=== PATIENT | female | born 1945 | race Caucasian/White ===

== ENCOUNTER 2022-08-05 13:10 | Outpatient (OUT) | payer MEDICARE, OTHER, SELFPAY | END 2022-08-05 13:11 | disposition home or self-care (01) | LOC: LAB 08-30 15:02 | PROVIDERS: PCP Family Medicine; Visit Provider Internal Medicine | DX: I12.9 Hypertensive chronic kidney disease with stage 1 through stage 4 chronic kidney disease, or unspecified chronic kidney disease (principal); N18.30 Chronic kidney disease, stage 3 unspecified; E11.22 Type 2 diabetes mellitus with diabetic chronic kidney disease; D63.1 Anemia in chronic kidney disease; C64.9 Malignant neoplasm of unspecified kidney, except renal pelvis; R80.9 Proteinuria, unspecified; E55.9 Vitamin D deficiency, unspecified; E79.0 Hyperuricemia without signs of inflammatory arthritis and tophaceous disease | CPT/HCPCS: 36415; 80069; 81001 ==

== ENCOUNTER 2022-08-11 08:10 | Outpatient (OUT) | payer MEDICARE, OTHER, SELFPAY ==
[2022-08-05 13:42] LABS: Bilirubin Urine NEGATIVE (NEGATIVE); Blood Urine NEGATIVE (NEGATIVE); Clarity Urine CLEAR (CLEAR); Color Urine LT. YELLOW (YELLOW); Glucose Urine UA NEGATIVE (NEGATIVE); Ketones Urine NEGATIVE (NEGATIVE); Leukocyte Esterase Urine NEGATIVE (NEGATIVE); Nitrite Urine NEGATIVE (NEGATIVE); Protein Urine NEGATIVE (NEG/TRACE); Urobilinogen Urine 0.2 EU/dL (0.2-1.0)
[2022-08-05 13:51] LABS: Bacteria Urine NONE SEEN #/HPF (NONE SEEN); RBC Urine NONE SEEN #/HPF (0-2); WBC Urine NONE SEEN #/HPF (NONE SEEN)
[2022-08-05 13:52] LABS: Cast Seen? NONE SEEN #/LPF (NONE SEEN); Mucus Urine NONE SEEN (NONE SEEN)
[2022-08-05 13:53] LABS: Crystals Seen? None Seen #/HPF (None Seen); Squamous Epithelial Cell Urine FEW #/LPF (NONE/RARE)
[2022-08-05 14:01] LABS: Albumin Level 4.2 g/dL (3.4-5.0); Anion Gap 15.4; BUN Creatinine Ratio 18.1; Calcium 9.8 mg/dL (8.5-10.1); Chloride 104 mmol/L (98-107); Estimated GFR (African America 41 (>=60); Estimated GFR (Non-African Ame 34 (>=60); Glucose 109 mg/dL (74-106); Phosphorus 4.7 mg/dL (2.6-4.7); Potassium 4.4 mmol/L (3.5-5.1); Sodium 141 mmol/L (136-145)
--- NOTE | 2022-08-11 08:14 | US_ITS ---
The [address] [address] Patient Name: ARMANDO SIMMONS MRN: [id number] date: 1945 Sex: F Assigned Patient Location: US Current Patient Location: US Accession/Order Number: [id number] Exam Date: 08/11/2022 08:15 Report Date: 08/11/2022 09:22 At the request of: LEA COLLINS Procedure: US renal BI EXAM: Renal ultrasound HISTORY: . Chronic Kidney Disease N18.30 . COMPARISON: 07/02/2019. 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 No masses are noted ultrasonographically in the right renal fossa. Left kidney measures 12 x 4.9 x 6.7 cm. Color-flow is noted. Small cysts are noted within the left kidney. The largest cyst measures 2.1 cm. No hydronephrosis is noted. There is slight to lobulation of the renal contours. Scanning of the filled bladder demonstrates a volume of 101 cc. No masses are noted. No bladder wall thickening is noted. IMPRESSION: 1. Absent right kidney. 2. Small cyst involving the left kidney. The largest measures 2.1 cm. No hydronephrosis is noted. A similar finding was on the previous exam. 3. Normal-appearing bladder. Electronically authenticated by: HERMAN RAIN Date: 08/11/2022 09:22
== END 2022-08-11 08:11 ==
LOC: US 08:11
PROVIDERS: PCP Family Medicine; Visit Provider Internal Medicine
DX: I12.9 Hypertensive chronic kidney disease with stage 1 through stage 4 chronic kidney disease, or unspecified chronic kidney disease (principal); N18.30 Chronic kidney disease, stage 3 unspecified; E11.22 Type 2 diabetes mellitus with diabetic chronic kidney disease; D63.1 Anemia in chronic kidney disease; C64.9 Malignant neoplasm of unspecified kidney, except renal pelvis; R80.9 Proteinuria, unspecified; E55.9 Vitamin D deficiency, unspecified; E79.0 Hyperuricemia without signs of inflammatory arthritis and tophaceous disease; Z90.5 Acquired absence of kidney; N28.1 Cyst of kidney, acquired
CPT/HCPCS: 36415; 76775; 80069; 81001

== ENCOUNTER 2022-11-22 11:00 | Outpatient (OUT) | payer MEDICARE, OTHER, SELFPAY ==
[2022-11-22 11:43] LABS: Basophils Percent Auto 0.7 % (0.2-2.0); Eosinophils Absolute Auto 0.2 10^3/uL (0.0-0.7); Eosinophils Percent Auto 3.9 % (0.9-7.0); Hematocrit 28.6 % (36.0-48.0); Immature Granulocytes Abs Auto 0.01 10^3/uL (0.00-0.03); Immature Granulocytes Pct Auto 0.2 % (0.0-0.5); Lymphocytes Absolute Auto 1.1 10^3/uL (1.2-3.8); Lymphocytes Percent Auto 23.5 % (20.5-60.0); Mean Corpuscular HGB Conc 31.5 g/dL (29.9-35.2); Mean Corpuscular Hemoglobin 30.4 pg (26.7-34.0); Mean Corpuscular Volume 96.6 fL (81.0-99.0); Mean Platelet Volume 10.8 fL (9.5-13.5); Monocytes Absolute Auto 0.4 10^3/uL (0.3-0.8); Monocytes Percent Auto 7.9 % (1.7-12.0); Neutrophils Absolute Auto 2.9 10^3/uL (1.4-6.5); Neutrophils Percent Auto 63.8 % (43.0-75.0); Platelet Count 209 10^3/uL (150-450); Red Blood Count 2.96 10^6/uL (4.20-5.40); Red Cell Distribution Width 13.8 % (11.0-15.0); White Blood Count 4.6 10^3/uL (4.0-11.0)
[2022-11-22 11:50] LABS: Estimated Average Glucose 111 mg/dL; Glycohemoglobin A1C 5.5 % (4.5-6.2)
[2022-11-22 12:03] LABS: Alanine Aminotransferase 19 U/L (14-59); Albumin Globulin Ratio 1.3; Albumin Level 4.2 g/dL (3.4-5.0); Alkaline Phosphatase 42 U/L (46-116); Aspartate Amino Transferase 15 U/L (15-37); BUN Creatinine Ratio 22.7; Bilirubin Direct <0.1 mg/dL (0.0-0.2); Bilirubin Total 0.2 mg/dL (0.2-1.0); Calcium 8.8 mg/dL (8.5-10.1); Carbon Dioxide 23.8 mmol/L (21.0-32.0); Chloride 106 mmol/L (98-107); Chol HDL Ratio 2.4; Cholesterol 153 mg/dL (<=200); Estimated GFR (African America 49 (>=60); Estimated GFR (Non-African Ame 41 (>=60); Globulin 3.2 g/dL; Glucose 96 mg/dL (74-106); HDL Cholesterol 63 mg/dL (40-60); Potassium 4.8 mmol/L (3.5-5.1); Sodium 138 mmol/L (136-145); Thyroid Stimulating Hormone 0.698 uIU/mL (0.358-3.740); Total Protein 7.4 g/dL (6.4-8.2); Triglycerides 138 mg/dL (<=150); VLDL CHOLESTEROL 27.6 mg/dL
== END 2022-11-22 11:01 | disposition home or self-care (01) ==
PROVIDERS: PCP Family Medicine; Visit Provider Family Medicine
DX: E11.9 Type 2 diabetes mellitus without complications (principal); I10 Essential (primary) hypertension; Z51.81 Encounter for therapeutic drug level monitoring; E55.9 Vitamin D deficiency, unspecified; E66.9 Obesity, unspecified
CPT/HCPCS: 36415; 80048; 80061; 80076; 82043; 83036; 84443; 85025

== ENCOUNTER 2022-11-24 11:41 | Outpatient (OUT) | payer MEDICARE, OTHER, SELFPAY ==
[2022-11-24 12:13] LABS: Hematocrit 28.7 % (36.0-48.0); Hemoglobin 8.8 g/dL (12.0-16.0)
[2022-11-24 12:14] LABS: Bilirubin Urine NEGATIVE (NEGATIVE); Blood Urine NEGATIVE (NEGATIVE); Clarity Urine CLEAR (CLEAR); Color Urine YELLOW (YELLOW); Glucose Urine UA NEGATIVE (NEGATIVE); Ketones Urine NEGATIVE (NEGATIVE); Leukocyte Esterase Urine NEGATIVE (NEGATIVE); Nitrite Urine NEGATIVE (NEGATIVE); Protein Urine TRACE mg/dL (NEG/TRACE); Urobilinogen Urine 0.2 EU/dL (0.2-1.0)
[2022-11-24 12:32] LABS: RBC Urine 0-2 #/HPF (0-2); WBC Urine NONE SEEN #/HPF (NONE SEEN)
[2022-11-24 12:33] LABS: Bacteria Urine NONE SEEN #/HPF (NONE SEEN); Cast Seen? NONE SEEN #/LPF (NONE SEEN); Crystals Seen? None Seen #/HPF (None Seen); Mucus Urine NONE SEEN (NONE SEEN); Protein Creatinine Ratio Urine 0.17; Squamous Epithelial Cell Urine NONE SEEN #/LPF (NONE/RARE); Total Protein Urine Random 33.9 mg/dL (<=11.9); Urine Culture Indicated NO
[2022-11-24 13:48] LABS: Albumin Level 4.2 g/dL (3.4-5.0); Anion Gap 14.5; BUN Creatinine Ratio 18.4; Calcium 9.4 mg/dL (8.5-10.1); Carbon Dioxide 24.6 mmol/L (21.0-32.0); Chloride 107 mmol/L (98-107); Estimated GFR (African America 42 (>=60); Estimated GFR (Non-African Ame 35 (>=60); Glucose 95 mg/dL (74-106); Magnesium 2.1 mg/dL (1.8-2.4); Phosphorus 3.7 mg/dL (2.6-4.7); Potassium 5.1 mmol/L (3.5-5.1); Sodium 141 mmol/L (136-145); Uric Acid 8.1 mg/dL (2.6-6.0)
[2022-11-24 15:13] LABS: Percent Iron Saturation 23.5 %
[2022-11-24 16:15] LABS: Mean Corpuscular HGB Conc 30.2 g/dL (29.9-35.2); Mean Corpuscular Hemoglobin 29.5 pg (26.7-34.0); Mean Corpuscular Volume 97.6 fL (81.0-99.0); Mean Platelet Volume 11.7 fL (9.5-13.5); Platelet Count 223 10^3/uL (150-450); Red Blood Count 2.95 10^6/uL (4.20-5.40); Red Cell Distribution Width 13.7 % (11.0-15.0); White Blood Count 4.9 10^3/uL (4.0-11.0)
[2022-11-24 16:17] LABS: Hematocrit 28.7 % (36.0-48.0); Hemoglobin 8.8 g/dL (12.0-16.0)
[2022-11-25 14:08] LABS: PTH, Intact 66 pg/mL (15-65)
== END 2022-11-24 11:42 | disposition home or self-care (01) ==
LOC: LAB 11:42
PROVIDERS: PCP Family Medicine; Visit Provider Internal Medicine
DX: I12.9 Hypertensive chronic kidney disease with stage 1 through stage 4 chronic kidney disease, or unspecified chronic kidney disease (principal); N18.30 Chronic kidney disease, stage 3 unspecified; E11.22 Type 2 diabetes mellitus with diabetic chronic kidney disease; D63.1 Anemia in chronic kidney disease; C64.9 Malignant neoplasm of unspecified kidney, except renal pelvis; R80.9 Proteinuria, unspecified; E55.9 Vitamin D deficiency, unspecified; E79.0 Hyperuricemia without signs of inflammatory arthritis and tophaceous disease
CPT/HCPCS: 36415; 80069; 81001; 82306; 82570; 82728; 83540; 83550; 83735; 83970; 84156; 84550; 85014; 85018; 85027

== ENCOUNTER 2022-12-14 09:58 | Outpatient (OUT) | payer MEDICARE, OTHER, SELFPAY ==
--- NOTE | 2022-12-14 10:12 | CT_ITS ---
[address] [address] Patient Name: ARMANDO SIMMONS MRN: [id number] date: 1945 Sex: F Assigned Patient Location: CT Current Patient Location: Accession/Order Number: [id number] Exam Date: 12/14/2022 10:26 Report Date: 12/15/2022 07:10 At the request of: SUGAR PEREZ Procedure: CT lung screening low-dose EXAMINATION: CT lung screening low-dose HISTORY: History Of Tobacco Dependence Z87.891 COMPARISON: No relevant comparison available. TECHNIQUE: Axial, Coronal, and Sagittal images were created without the administration of IV contrast material. Dose reduction techniques were achieved by using automated exposure control and/or adjustment of mA and/or kV according to patient size and/or use of iterative reconstruction technique. FINDINGS: LUNGS: Mild emphysematous changes. No suspicious nodules or acute infiltrates. PLEURA: No mass, effusion, or pneumothorax. VASCULATURE: No abnormality. HEMA: No mass or pathologic adenopathy. MEDIASTINUM: No mass or pathologic adenopathy. CARDIAC: No enlargement, pericardial thickening, or significant calcification. AORTA: No aneurysm or dissection. CHEST WALL: No mass or axillary adenopathy BONES: Mechanical fusion of lower cervical spine. Multilevel mild degenerative changes of thoracic spine. LIMITED ABDOMEN: No suspicious findings. Limited images of the upper abdomen. OTHER: Negative. CT/CT lung screening low-dose IMPRESSION: 1. Lung-RADS Category 1 Negative. No nodules and definitely benign nodules. Continue annual screening with LDCT in 12 months. Electronically authenticated by: LONDON DON Date: 12/15/2022 07:10
== END 2022-12-14 09:59 | disposition home or self-care (01) ==
LOC: CT 10:00
PROVIDERS: PCP Family Medicine; Visit Provider Family Medicine
DX: Z87.891 Personal history of nicotine dependence (principal)
CPT/HCPCS: 71271

== ENCOUNTER 2022-12-27 11:42 | Outpatient (OUT) | payer MEDICARE, OTHER, SELFPAY ==
[2022-12-27 11:59] LABS: Hematocrit 26.5 % (36.0-48.0); Hemoglobin 8.3 g/dL (12.0-16.0); Mean Corpuscular HGB Conc 31.3 g/dL (29.9-35.2); Mean Corpuscular Volume 95.7 fL (81.0-99.0); Mean Platelet Volume 9.9 fL (9.5-13.5); Platelet Count 224 10^3/uL (150-450); Red Blood Count 2.77 10^6/uL (4.20-5.40); Red Cell Distribution Width 13.4 % (11.0-15.0); White Blood Count 5.1 10^3/uL (4.0-11.0)
== END 2022-12-27 11:43 | disposition home or self-care (01) ==
LOC: LAB 11:43
PROVIDERS: PCP Family Medicine; Visit Provider Internal Medicine
DX: E11.22 Type 2 diabetes mellitus with diabetic chronic kidney disease (principal); I12.9 Hypertensive chronic kidney disease with stage 1 through stage 4 chronic kidney disease, or unspecified chronic kidney disease; N18.30 Chronic kidney disease, stage 3 unspecified; D63.1 Anemia in chronic kidney disease; C64.9 Malignant neoplasm of unspecified kidney, except renal pelvis; R80.9 Proteinuria, unspecified; E87.5 Hyperkalemia; E55.9 Vitamin D deficiency, unspecified; E79.0 Hyperuricemia without signs of inflammatory arthritis and tophaceous disease
CPT/HCPCS: 36415; 85027

== ENCOUNTER 2023-01-20 07:35 | Outpatient (RCR) | payer MEDICARE, OTHER, SELFPAY ==
[2023-01-11] MEDS: IRON SUCROSE COMPLEX 200 MG in 0.9 % SODIUM CHLORIDE 100 ML 220 MG IV (10:13)
[2023-01-11 10:46] VITALS: BP 138/68; PULSE 79; RESP 16; TEMP 36.4; O2SAT 95
--- NOTE | 2023-01-11 11:09 | PC.NURSE ---
0957: Pt. to [facility] amb. per self. Seated in recliner. VSS. Questions addressed regarding Venofer. Iv initiated to left ac on first attempt using #22 gauge iv. Flushes easliy with no edema or c/o pain. Pt. tolerated with no c/o. 1013: IV Venofer initiated at this time. Pt. given bottled water. Denies needs. 1043: Venofer completed without s&s of adverse reaction. IV d/c'd, pressure to site. 1044: Pt. d/c'd amb. to home.
[2023-01-13] MEDS: 0.9 % SODIUM CHLORIDE 250 ML 10 ML IV (10:09)
[2023-01-13] MEDS: IRON SUCROSE COMPLEX 200 MG in 0.9 % SODIUM CHLORIDE 100 ML 220 MG IV (10:10)
[2023-01-13 10:22] VITALS: BP 122/66; PULSE 78; RESP 18; TEMP 36.1; O2SAT 94
--- NOTE | 2023-01-13 10:23 | PC.NURSE ---
0955 arrival ambulatory to chair 1. alert oriented offers no complaints. #24 IV inserted rt forearm on1st attempt, tolerated well. explained Venofer infusion. patient verbalizes understanding, Stated she did well with the infusion on Monday.
--- NOTE | 2023-01-13 10:24 | PC.NURSE ---
1025 Tolerating infusion without any symptoms
--- NOTE | 2023-01-13 10:50 | PC.NURSE ---
1045 Infusion completed, tolerated well. IV dc'd catheter intact. site covered with bandaid and coban.
[2023-01-16] MEDS: IRON SUCROSE COMPLEX 200 MG in 0.9 % SODIUM CHLORIDE 100 ML 220 MG IV (10:08)
[2023-01-16 10:33] VITALS: BP 124/68; PULSE 74; RESP 16; TEMP 35.8; O2SAT 98
--- NOTE | 2023-01-16 10:40 | PC.NURSE ---
0955: Pt. to [facility] amb. for iron infusion. Denies c/o from past infusions. Seated in recliner. VSS. IV initiated to left ac on first attempt without difficulty. Flushes easily without edema or redness. Pt. tolerated without c/o. 1008: IV Venofer initiated as ordered. Pt. given water. 1037: Venofer completed without s&s of transfusion reaction. IV d/c'd, pressure to site. 1038: D/c'd amb. to home.
[2023-01-18 10:02] VITALS: BP 106/72; PULSE 73; RESP 16; TEMP 36.9; O2SAT 94
[2023-01-18] MEDS: IRON SUCROSE COMPLEX 200 MG in 0.9 % SODIUM CHLORIDE 100 ML 220 MG IV (10:23)
[2023-01-20 09:57] VITALS: BP 127/80; PULSE 80; RESP 16; TEMP 36.4; O2SAT 94
[2023-01-20] MEDS: IRON SUCROSE COMPLEX 200 MG in 0.9 % SODIUM CHLORIDE 100 ML 220 MG IV (10:21)
== END 2023-02-02 23:59 | disposition home or self-care (01) ==
LOC: INF 07:35
PROVIDERS: PCP Family Medicine; Visit Provider Internal Medicine
DX: N18.30 Chronic kidney disease, stage 3 unspecified (principal); D63.1 Anemia in chronic kidney disease
CPT/HCPCS: 96365; J1756

== ENCOUNTER 2023-01-24 10:37 | Outpatient (OUT) | payer MEDICARE, OTHER, SELFPAY ==
[2023-01-24 11:05] LABS: Hemoglobin 8.9 g/dL (12.0-16.0); Mean Corpuscular HGB Conc 30.7 g/dL (29.9-35.2); Mean Corpuscular Hemoglobin 29.7 pg (26.7-34.0); Mean Corpuscular Volume 96.7 fL (81.0-99.0); Mean Platelet Volume 10.5 fL (9.5-13.5); Platelet Count 229 10^3/uL (150-450); Red Cell Distribution Width 13.9 % (11.0-15.0); White Blood Count 4.7 10^3/uL (4.0-11.0)
[2023-01-24 13:29] LABS: Percent Iron Saturation 25.4 %
[2023-01-24 14:08] LABS: Albumin Level 4.3 g/dL (3.4-5.0); Anion Gap 17.1; BUN Creatinine Ratio 18.4; Calcium 9.1 mg/dL (8.5-10.1); Chloride 104 mmol/L (98-107); Estimated GFR (African America 33 (>=60); Estimated GFR (Non-African Ame 28 (>=60); Glucose 95 mg/dL (74-106); Magnesium 2.2 mg/dL (1.8-2.4); Phosphorus 4.4 mg/dL (2.6-4.7); Potassium 5.1 mmol/L (3.5-5.1); Sodium 139 mmol/L (136-145)
== END 2023-01-24 10:38 | disposition home or self-care (01) ==
LOC: LAB 10:39
PROVIDERS: PCP Family Medicine; Visit Provider Internal Medicine
DX: I12.9 Hypertensive chronic kidney disease with stage 1 through stage 4 chronic kidney disease, or unspecified chronic kidney disease (principal); N18.30 Chronic kidney disease, stage 3 unspecified; E11.22 Type 2 diabetes mellitus with diabetic chronic kidney disease; D63.1 Anemia in chronic kidney disease; C64.9 Malignant neoplasm of unspecified kidney, except renal pelvis; R80.9 Proteinuria, unspecified; E55.9 Vitamin D deficiency, unspecified; E79.0 Hyperuricemia without signs of inflammatory arthritis and tophaceous disease; E87.5 Hyperkalemia
CPT/HCPCS: 36415; 80069; 82728; 83540; 83550; 83735; 85027

== ENCOUNTER 2023-02-14 12:12 | Outpatient (OUT) | payer MEDICARE, OTHER, SELFPAY ==
[2023-02-14 12:35] LABS: Hemoglobin 10.1 g/dL (12.0-16.0); Mean Corpuscular HGB Conc 30.6 g/dL (29.9-35.2); Mean Corpuscular Hemoglobin 29.5 pg (26.7-34.0); Mean Corpuscular Volume 96.5 fL (81.0-99.0); Platelet Count 210 10^3/uL (150-450); Red Blood Count 3.42 10^6/uL (4.20-5.40); Red Cell Distribution Width 14.5 % (11.0-15.0); White Blood Count 4.8 10^3/uL (4.0-11.0)
== END 2023-02-14 12:13 | disposition home or self-care (01) ==
LOC: LAB 12:13
PROVIDERS: PCP Family Medicine; Visit Provider Internal Medicine
DX: I12.9 Hypertensive chronic kidney disease with stage 1 through stage 4 chronic kidney disease, or unspecified chronic kidney disease (principal); N18.30 Chronic kidney disease, stage 3 unspecified; E11.22 Type 2 diabetes mellitus with diabetic chronic kidney disease; D63.1 Anemia in chronic kidney disease; C64.9 Malignant neoplasm of unspecified kidney, except renal pelvis; R80.9 Proteinuria, unspecified; E55.9 Vitamin D deficiency, unspecified; E79.0 Hyperuricemia without signs of inflammatory arthritis and tophaceous disease; E87.5 Hyperkalemia
CPT/HCPCS: 36415; 85027

== ENCOUNTER 2023-03-09 11:56 | Outpatient (OUT) | payer MEDICARE, OTHER, SELFPAY ==
--- OUTSIDE RECORDS SUMMARY | 2023-03-09 12:02 | XMS_ITS | CCD ---
Author Name Unknown Address [id number] [place] [address] Organization [facility] Care Team Providers Care Commercial Loan Assistant Name Role Phone PHYSICIAN, DEFAULT Unavailable Unavailable PHYSICIAN, DEFAULT Unavailable Unavailable PHYSICIAN, DEFAULT Unavailable Unavailable PHYSICIAN, DEFAULT Unavailable Unavailable Dennis, Aleyda Unavailable RichardMartin portillobrandon Unavailable Chandler Arauz Unavailable NADNIKI, DR SUGAR [facility] [employer] Unavailable NADERER, DR SUGAR [facility] Attending Unavailable NADERER, DR SUGAR [facility] Admitting Unavailable NADERER, DR SUGAR [facility] Unavailable DENNIS, ALEYDA Admitting Unavailable DENNIS, ALEYDA Consulting Unavailable DENNIS, ALEYDA Attending Unavailable NADERER, DR SUGAR [facility] Unavailable NADERER, DR SUGAR [facility] Unavailable DENNIS, ALEYDA Admitting Unavailable DENNIS, ALEYDA Consulting Unavailable DENNIS, ALEYDA Attending Unavailable NADERER, DR SUGAR [facility] Unavailable DENNIS, ALEYDA Admitting Unavailable DENNIS, ALEYDA Consulting Unavailable DENNIS, ALEYDA Attending Unavailable DENNIS, ALEYDA Attending Unavailable NADERER, DR SUGAR [facility] Unavailable DENNIS, ALEYDA Admitting Unavailable DENNIS, ALEYDA Consulting Unavailable NADERER, DR SUGAR [facility] Unavailable NADERER, DR SUGAR [facility] Unavailable NADERER, DR SUAGR [facility] Attending Unavailable NADERER, DR SUGAR [facility] Admitting Unavailable NADERER, DR SUGAR [facility] Unavailable DENNIS, ALEYDA Admitting Unavailable DENNIS, ALEYDA Consulting Unavailable DENNIS, ALEYDA Attending Unavailable LEO ALLEN Attending Unavailable MICHAELA YUAN Referring Unavailable Unavailable Primary Care Provider Unavailabl e Allergies Allergy Classification Reported Allergen(s) Allergy Type Date of Onset Reaction(s) Facility (17 sources) Latex; Translations: [LATEX] Propensity to adverse reactions 7 rash [facility] (1 source) DULoxetine Drug Allergy [facility] Repository (1 source) Ketorolac Drug Allergy [facility] Repository (1 source) natural latex rubber Drug allergy (disorder) [facility] Rep[facility] (2 sources) NSAIDs; Translations: [NSAIDS (NON-STEROIDAL ANTI-INFLAMMATO RY DRUG)] Drug allergy (disorder) 9 [facility] Repository (2 sources) Ketorolac; Translations: [KETOROLAC] Drug Allergy 9 Rash, Facial Swelling [facility] (1 source) Non-steroidal anti-inflammato ry agent Propensity to adverse reactions to drug 9 Swelling, Rash, Facial Swelling [facility] Medications Current Medications Medication Drug Class(es) Dates Sig (Normalized) Sig (Original) acetaminophen 325 mg / oxyCODONE hydrochloride 5 mg oral tablet (16 sources) Opioid Agonist take 1 tablet by bi th every four hours as needed for pain oxyCODONE-acetamino phen (PERCOCET) 5-325 mg per tablet Take 1 tablet by mouth every 4 (four) hours as needed for pain. Patient takes 1/2 tab bid 0 Active Percocet 5-325 M G 1 tablet as needed Orally every 4- 6 hrs Active alendronic acid 70 mg oral tablet (16 sources) Bisphosphonate Start: 08-24-2017 alendronate (F OSAMAX) 70 mg tablet Take 1 tablet (70 mg total) by mouth every 7 days. 12 tablet 1 08/24/2017 Active take 1 tablet by mouth every wee k Alendronate Sodium 70 MG 1 tablet Orally Once a Week for 30 day(s) Active amLODIPine 10 mg oral tablet (20 sources) Dihydropyridine Calcium Channel Raquel Start: 12-28-2016 take 1 tablet by mouth once daily amLODIPine (NORVASC) 10 mg tablet Take 1 tablet (10 mg total) by mouth respiratory nightly. 0 12/28/2016 Active atorvastatin 10 mg oral tablet (16 sources) HMG-CoA Reductase Inhibitor Start: 10-12-2018 take 1 tablet by mouth once daily atorvastatin (LIPITOR) 10 mg tablet Indications: Mixed hyperlipidemia TAKE ONE TABLET BY MOUTH DAILY 90 tablet 10 10/12/2018 Active cholecalciferol 0.05 mg oral capsule (2 sources) Vitamin D take 1 capsule by mouth every twenty-four hours Vitamin D (Cholecalciferol) 50 MCG (1999 UT) 1 capsule Orally Once a day Active CoQ-10 400 MG (13 sources) take 1 capsule by mouth once daily CoQ-10 400 MG 1 capsule with a meal Orally Once a day for 30 day(s) Active ferrous sulfate 325 mg oral tablet (16 sources) take 1 tablet by mouth once daily at breakfast ferrous sulfate 325 (65 FE) mg tablet Take 1 tablet (325 mg total) by mouth daily with breakfast. 0 Active take 1 tablet by mouth once walt y Ferrous Sulfate 325 (65 Fe) MG 1 tablet Orally Once a day for 90 day(s) Active furosemide 40 mg oral tablet (20 sources) Loop Diuretic take 1 tablet by mouth once daily furosemide (LASIX) 40 mg tablet Take 1 tablet (40 mg total) by mouth daily. 0 [facility] Lasix 20 MG 1 tablet Orally Once a day for 90 day(s) Active gabapentin 100 mg oral capsule (15 sources) Anti-epileptic Agent Start: 02-21-2023 End: 05-22-2023 take 1 capsule by mouth every eight hours gabapentin (NEURONTIN) 100 mg capsule Take 1 capsule (100 mg total) by mouth every 8 (eight) hours. 0 02/21/2023 05/22/2023 Active take 1 capsule by [facility] every eight hours Gabapentin 100 MG 1 capsule Orally THREE TIMES A DAY Active glucosamine sulfate 500 mg oral tablet (15 sources) take 1 tablet by mouth every twenty-four hours Glucosamine 500 mg 1 tablet Orally Daily Active lisinopril 5 mg oral tablet (20 sources) Angiotensin Converting Enzyme Inhibitor Start: 12-11-19 21 take 1 tablet by mouth every twenty-four hours Lisinopril 5 MG 1 tablet Orally Once a day for 90 day(s) Dec, Active metFORMIN hydrochloride 1000 mg oral tablet (8 sources) Biguanide take 1 tablet by mouth twice daily at mealtime metFORMIN HCl 1000 mg 1 tablet with meals Orally Twice a day Active OXcarbazepine 150 mg oral tablet (13 sources) Anti-epileptic Agent take 1 tablet by mouth every twenty-four hours Trileptal 150 MG 1 Tablet Orally ONCE A DAY Active take 1 tablet by bi three times daily as needed Trileptal 150 MG 1 Tablet Orally THREE TIMES A DAY,As needed Active pantoprazole 40 mg delayed release oral tablet (16 sources) Proton Pump Inhibitor take 1 tablet by mouth once daily pantoprazole (PROTONIX) 40 mg EC tablet Take 1 tablet every day by oral route for 30 days. 0 Active ubidecarenone 400 mg oral capsule (2 sources) take 1 capsule by mouth every twenty-four hours CoQ-10 400 MG 1 capsule with a meal Orally Once a day for 30 day(s) Active Vitamin D (Cholecalciferol) 50 MCG (1999 UT) (13 sources) take 1 capsule by mouth once daily Vitamin D (Cholecalciferol) 50 MCG (1999 UT) 1 capsule Orally Once a day Active Completed/Discontinued Medications Medication Drug Class(es) Dates Sig (Normalized) Sig (Original) ergocalciferol 1.25 mg oral capsule (1 source) Provitamin D2 Compound End: 03-08-2023 take 1 capsule by mouth every week ergocalciferol (DRISDOL) 50,000 unit capsule Take 1 capsule (50,000 Units total) by mouth once a week. 0 03/08/2023 Discontinued (Therapy completed) ergocalciferol, vitamin D2, (VITAMIN D2 ORAL) (1 source) End: 03-08-2023 ergocalciferol, vitamin D2, (VITAMIN D2 ORAL) Vitamin D2 0 03/08/2023 Discontinued (Therapy completed) Finerenone 10 MG (8 sources) Start: 01-13-2022 take 1 tablet by mouth once daily Finerenone 10 MG 1 tablet Orally Once a day for 90 day(s) Jan, Not-Taking Start: 01-13-2022 take 1 tablet by bi th once daily Finerenone 10 MG 1 tablet Orally Once a day for 90 day(s) Jan, Active polyethylene glycol 3350 485073 mg / potassium chloride 2970 mg / sodium bicarbonate 6740 mg / sodium chloride 5860 mg / sodium sulfate 92112 mg powder for oral solution (1 source) Osmotic Laxative Start: 02-28-2023 End: 03-08-2023 polyethylene glycol (GOLYTELY) 236-22.74-6.74 -5.86 gram solution Indications: Iron deficiency anemia, unspecified iron deficiency anemia type , Stage 3 chronic kidney disease, unspecified whether stage 3a or 3b CKD ([facility]) Take 240 mL by mouth every 1 (one) hour. 4000 mL 0 02/28/2023 03/08/2023 Discontinued (Therapy completed) PROCRIT INJECTION - 1000 units (5 sources) Start: 02-21-2023 PROCRIT INJECT ION - 1000 units Feb, 1000 mL Start: 02-01-2023 PROCRIT INJECT ION - 1000 units Jan, 1000 mL Start: 2022 PROCRIT INJECT ION - 1000 units Nov, 1000 units Problems Active Problems Problem Classification Problem Date Documented Date Episodic/Chronic Cancer of kidney and renal pelvis (19 sources) Malignant tumor of kidney; Translations: [Malignant neoplasm of unspecified kidney, except renal pelvis] Onset: 1 Resolved: 1 Chronic Cancer of kidney and renal pelvis (5 sources) History of malignant neoplasm of kidney; Translations: [Personal history of other malignant neoplasm of kidney] Episodic Chronic kidney disease (20 sources) Chronic kidney disease stage 2; Translations: [Chronic kidney disease, stage 2 (mild)] Chronic Deficiency and other anemia (15 sources) Anemia in chronic kidney disease; Translations: [Anemia in chronic kidney disease] Chronic Deficiency and other anemia (5 sources) Anemia in chronic kidney disease; Translations: [Anemia in chronic kidney disease D63.1] Onset: 1 Resolved: 1 Chronic Deficiency and other anemia (1 source) Iron deficiency anemia; Translations: [Iron deficiency anemia, unspecified] Onset: 3 02-28-2023 Episodic Diabetes mellitus with complications (20 sources) Type II diabetes mellitus uncontrolled; Translations: [Diabetes Type II or unspecified type, uncontrolled w/o mention of complication] Onset: 1 Resolved: 1 Chronic Diabetes mellitus without complication (4 sources) Type 2 diabetes mellitus without complications; Translations: [TYPE 2 DM WITHOUT COMPLICATIONS] Onset: 3 Chronic Disorders of lipid metabolism (1 source) Hyperlipidemia, unspecified; Translations: [HYPERLIPIDEMIA UNSPECIFIED] Onset: 2 Chronic Essential hypertension (16 sources) Hypertensive disorder; Translations: [Hypertension, unspecified] Onset: 2 Chronic Fluid and electrolyte disorders (1 source) Hyperkalemia Episodic Gastritis and duodenitis (1 source) Atrophic gastritis; Translations: [Chronic atrophic 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] Onset: 4 03-08-2023 Chronic Genitourinary symptoms and ill-defined conditions (11 sources) Proteinuria, unspecified; Translations: [Proteinuria R80.9] Onset: 1 Resolved: 2 Episodic Hypertension with complications and secondary hypertension (20 sources) Chronic kidney disease due to hypertension; Translations: [Hypertensive chronic kidney disease with stage 1 through stage 4 chronic kidney disease, or unspecified chronic kidney disease] Onset: 1 Resolved: 2 Chronic Nutritional deficiencies (19 sources) Vitamin D deficiency; Translations: [Vitamin D deficiency, unspecified] Onset: 1 Resolved: 1 Chronic Other and unspecified benign neoplasm (1 source) Polyp of sigmoid colon; Translations: [Polyp of colon] Onset: 4 03-08-2023 Episodic Other diseases of kidney and ureters (15 sources) Secondary hyperparathyroidism; Translations: [Secondary hyperparathyroidism of renal origin] Chronic Other nutritional; endocrine; and metabolic disorders (1 source) Obesity, unspecified; Translations: [OBESITY UNSPECIFIED] Onset: 2 Chronic Other nutritional; endocrine; and metabolic disorders (3 sources) Hyperuricemia without signs of inflammatory arthritis and tophaceous disease; Translations: [HU W/O SIGNS IA AND TOPHACEOUS DZ] Onset: 2 Episodic Unclassified (4 sources) CHRN KIDNEY DISEASE STG 3 UNSP; Translations: [CHRN KIDNEY DISEASE STG 3 UNSP] Onset: 2 Past or Other Problems Problem Classification Problem Date Documented Da te Episodic/Chronic Chronic kidney disease (9 sources) Chronic kidney disease; Translations: [Chronic kidney disease, stage 3 unspecified] Onset: 12-10-2020 Resolved: 12-10-2020 Mood disorders (1 source) Mood disorders Onset: 02-28-2023 02-28-2023 Other aftercare (1 source) Other detention (current) drug therapy; Translations: [OTH RETIREMENT CURRENT DRUG THERAPY] Onset: 11-01-2021 Episodic Unclassified (1 source) CHRN KIDNEY DISEASE STG 3 UNSP; Translations: [CHRN KIDNEY DISEASE STG 3 UNSP] Onset: 03-15-2022 Results Test Name Value Interpretation Reference Range Facility GLYCOHEMOGLOBIN A1Con 2022 ADA RECOMMENDATION SEE BELOW Normal [facility] Comment on above: Result Comment: ADA RECOMMENDED LIMIT 4.0 - 6.0 ADA THERAPEUTIC TARGET < 7.0 ACTION SUGGESTED > 7.0 Performed By: #### B MP, LIPID, AST, TSH, ALT #### [facility] [address] [place] [address] Dr. Viri Strong Glucose [Mass/Vol] 126 mg/dL Normal [facility] Comment on above: Performed By: #### B MP, LIPID, AST, TSH, ALT #### [facility] [address] [place] [address] Dr. Viri Strong HbA1c (Bld) [Mass fraction] 6.0 % Normal 4.5-6.2 [facility] Comment on above: Performed By: #### B MP, LIPID, AST, TSH, ALT #### [facility] [address] [place] [address] Dr. Viri Strong RENAL FUNCTION PANELon 03-15 Albumin [Mass/Vol] 4.1 g/dL Normal 3.4-5.0 [facility] Comment on above: Performed By: #### B MP, LIPID, AST, TSH, ALT #### [facility] [address] [place] [address] Dr. Viri Strong Calcium [Mass/Vol] 9.1 mg/dL Normal 8.5-10.1 [facility] Comment on above: Performed By: #### B MP, LIPID, AST, TSH, ALT #### [facility] [address] [place] [address] Dr. Viri Strong Chloride [Moles/Vol] 107 mmol/L Normal 98-107 [facility] Comment on above: Performed By: #### B MP, LIPID, AST, TSH, ALT #### [facility] [address] [place] [address] Dr. Viri Strong CO2 [Moles/Vol] 24.6 mmol/L Normal 21.0-32.0 [facility] Comment on above: Performed By: #### B MP, LIPID, AST, TSH, ALT #### [facility] [address] [place] [address] Dr. Viri Strong Creatinine [Mass/Vol] 1.31 mg/dL Critically high 0.55-1.02 [facility] Comment on above: Performed By: #### B MP, LIPID, AST, TSH, ALT #### [facility] [address] [place] [address] Dr. Viri Strong EGFR-AF BURUNDIAN 48 mL/min/1.73m2 Critically low >=60 [facility] Comment on above: Performed By: #### B MP, LIPID, AST, TSH, ALT #### [facility] [address] [place] [address] Dr. Viri Strong EGFR-NON AF BURUNDIAN 40 mL/min/1.73m2 Critically low >=60 [facility] Comment on above: Performed By: #### B MP, LIPID, AST, TSH, ALT #### [facility] [address] [place] [address] Dr. Viri Strong Glucose [Mass/Vol] 99 mg/dL Normal 74-106 [facility] Comment on above: Performed By: #### B MP, LIPID, AST, TSH, ALT #### [facility] [address] [place] [address] Dr. Viri Strong Phosphate [Mass/Vol] 3.4 mg/dL Normal 2.6-4.7 [facility] Comment on above: Performed By: #### B MP, LIPID, AST, TSH, ALT #### [facility] [address] [place] [address] Dr. Viri Strong Potassium [Moles/Vol] 4.6 mmol/L Normal 3.5-5.1 [facility] Comment on above: Performed By: #### B MP, LIPID, AST, TSH, ALT #### [facility] [address] [place] [address] Dr. Viri Strong Sodium [Moles/Vol] 141 mmol/L Normal 136-145 [facility] Comment on above: Performed By: #### B MP, LIPID, AST, TSH, ALT #### [facility] [address] [address] [address] Viri Strong Urea nitrogen [Mass/Vol] 28.0 mg/dL Critically high 7.0-18.0 [facility] Comment on above: Performed By: #### B MP, LIPID, AST, TSH, ALT #### [facility] [address] [place] [address] Dr. Viri Strong RENAL FUNCTION PANELon 01-31 Albumin [Mass/Vol] 4.1 g/dL Normal 3.4-5.0 [facility] Comment on above: Performed By: #### B MP, LIPID, AST, TSH, ALT #### [facility] [address] [place] [address] Dr. Viri Strong Calcium [Mass/Vol] 9.3 mg/dL Normal 8.5-10.1 [facility] Comment on above: Performed By: #### B MP, LIPID, AST, TSH, ALT #### [facility] [address] [place] [address] Dr. Viri Strong Chloride [Moles/Vol] 105 mmol/L Normal 98-107 [facility] Comment on above: Performed By: #### B MP, LIPID, AST, TSH, ALT #### [facility] [address] [place] [address] Dr. Viri Strong CO2 [Moles/Vol] 22.5 mmol/L Normal 21.0-32.0 [facility] Comment on above: Performed By: #### B MP, LIPID, AST, TSH, ALT #### [facility] [address] [place] [address] Dr. Viri Strong Creatinine [Mass/Vol] 1.31 mg/dL Critically high 0.55-1.02 [facility] Comment on above: Performed By: #### B MP, LIPID, AST, TSH, ALT #### [facility] [address] [place] [address] Dr. Viri Strong EGFR-AF BURUNDIAN 48 mL/min/1.73m2 Critically low >=60 [facility] Comment on above: Performed By: #### B MP, LIPID, AST, TSH, ALT #### [facility] [address] [address] [address] Viri Strong EGFR-NON AF BURUNDIAN 40 mL/min/1.73m2 Critically low >=60 [facility] Comment on above: Performed By: #### B MP, LIPID, AST, TSH, ALT #### [facility] [address] [address] [address] Viri Strong Glucose [Mass/Vol] 105 mg/dL Normal 74-106 [facility] Comment on above: Performed By: #### B MP, LIPID, AST, TSH, ALT #### [facility] [address] [address] [address] Viri Strong Phosphate [Mass/Vol] 3.2 mg/dL Normal 2.6-4.7 [facility] Comment on above: Performed By: #### B MP, LIPID, AST, TSH, ALT #### [facility] [address] [place] [address] Dr. Viri Strong Potassium [Moles/Vol] 5.0 mmol/L Normal 3.5-5.1 [facility] Comment on above: Performed By: #### B MP, LIPID, AST, TSH, ALT #### [facility] [address] [address] [address] Viri Strong Sodium [Moles/Vol] 138 mmol/L Normal 136-145 [facility] Comment on above: Performed By: #### B MP, LIPID, AST, TSH, ALT #### [facility] [address] [address] [address] Viri Strong Urea nitrogen [Mass/Vol] 24.0 mg/dL Critically high 7.0-18.0 [facility] Comment on above: Performed By: #### B MP, LIPID, AST, TSH, ALT #### [facility] [address] [place] [address] Dr. Viri Strong MAGNESIUMon 01-19-2022 Magnesium [Mass/Vol] 2.1 mg/dL Normal 1.8-2.4 [facility] Comment on above: Performed By: #### B MP, LIPID, AST, TSH, ALT #### [facility] [address] [place] [address] Dr. Viri Strong RENAL FUNCTION PANELon 01-19 Albumin [Mass/Vol] 4.4 g/dL Normal 3.4-5.0 [facility] Comment on above: Performed By: #### B MP, LIPID, AST, TSH, ALT #### [facility] [address] [place] [address] Dr. Viri Strong Calcium [Mass/Vol] 9.7 mg/dL Normal 8.5-10.1 [facility] Comment on above: Performed By: #### B MP, LIPID, AST, TSH, ALT #### [facility] [address] [place] [address] Dr. Viri Strong Chloride [Moles/Vol] 101 mmol/L Normal 98-107 [facility] Comment on above: Performed By: #### B MP, LIPID, AST, TSH, ALT #### [facility] [address] [place] [address] Dr. Viri Strong CO2 [Moles/Vol] 26.8 mmol/L Normal 21.0-32.[address] [facility] Comment on above: Performed By: #### B MP, LIPID, AST, TSH, ALT #### [facility] [address] [place] [address] Dr. Viri Strong Creatinine [Mass/Vol] 1.37 mg/dL Critically high 0.55-1.02 [facility] Comment on above: Performed By: #### B MP, LIPID, AST, TSH, ALT #### [facility] [address] [place] [address] Dr. Viri Strong EGFR-AF BURUNDIAN 46 mL/min/1.73m2 Critically low >=60 [facility] Comment on above: Performed By: #### B MP, LIPID, AST, TSH, ALT #### [facility] [address] [place] [address] Dr. Viri Strong EGFR-NON AF BURUNDIAN 38 mL/min/1.73m2 Critically low >=60 [facility] Comment on above: Performed By: #### B MP, LIPID, AST, TSH, ALT #### [facility] [address] [place] [address] Dr. Viri Strong Glucose [Mass/Vol] 88 mg/dL Normal 74-106 [facility] Comment on above: Performed By: #### B MP, LIPID, AST, TSH, ALT #### [facility] [address] [place] [address] Dr. Viri Strong Phosphate [Mass/Vol] 4.2 mg/dL Normal 2.6-4.7 [facility] Comment on above: Performed By: #### B MP, LIPID, AST, TSH, ALT #### [facility] [address] [place] [address] Dr. Viri Strong Potassium [Moles/Vol] 5.3 mmol/L Critically high 3.5-5.1 [facility] Comment on above: Performed By: #### B MP, LIPID, AST, TSH, ALT #### [facility] [address] [place] [address] Dr. Viri Strong Sodium [Moles/Vol] 135 mmol/L Critically low 136-145 [facility] Comment on above: Performed By: #### B MP, LIPID, AST, TSH, ALT #### [facility] [address] [place] [address] Dr. Viri Strong Urea nitrogen [Mass/Vol] 35.0 mg/dL Critically high 7.0-18.0 [facility] Comment on above: Performed By: #### B MP, LIPID, AST, TSH, ALT #### [facility] [address] [place] [address] Dr. Viri Strong UA RANDOM W/MICROSCOPICon BACTERIA NONE SEEN Normal NONE SEEN [facility] Comment on above: Performed By: #### B MP, LIPID, AST, TSH, ALT #### [facility] [address] [place] [address] Dr. Viri Strong Bilirubin Ql (U) Negative Normal NEGATIVE [facility] Comment on above: Performed By: #### B MP, LIPID, AST, TSH, ALT #### [facility] [address] [address] [address] Viri Strong CAST NONE SEEN Normal NONE SEEN [facility] Comment on above: Performed By: #### B MP, LIPID, AST, TSH, ALT #### [facility] [address] [address] [address] Viri Strong Clarity (U) CLEAR Normal CLEAR [facility] Comment on above: Performed By: #### B MP, LIPID, AST, TSH, ALT #### [facility] [address] [address] [address] Viri Strong Color (U) LT. YELLOW Normal YELLOW [facility] Comment on above: Performed By: #### B MP, LIPID, AST, TSH, ALT #### [facility] [address] [place] [address] Dr. Viri Strong Crystals LM Nom (Urine sed) NONE SEEN Normal NONE SEEN [facility] Comment on above: Performed By: #### B MP, LIPID, AST, TSH, ALT #### [facility] [address] [place] [address] Dr. Viri Strong Epithelial cells LM Ql (Urine sed) RARE Normal NONE SEEN /RARE [facility] Comment on above: Performed By: #### B MP, LIPID, AST, TSH, ALT #### [facility] [address] [place] [address] Dr. Viri Strong Glucose Ql (U) Negative Normal NEGATIVE [facility] Comment on above: Performed By: #### B MP, LIPID, AST, TSH, ALT #### [facility] [address] [address] [address] Viri Strong Hemoglobin Ql (U) Negative Normal NEGATIVE [facility] Comment on above: Performed By: #### B MP, LIPID, AST, TSH, ALT #### [facility] [address] [place] [address] Dr. Viri Strong Ketones Ql (U) Negative Normal NEGATIVE [facility] Comment on above: Performed By: #### B MP, LIPID, AST, TSH, ALT #### [facility] [address] [place] [address] Dr. Viri Strong LEUKOCYTES TRACE Abnormal NEGATIVE [facility] Comment on above: Performed By: #### B MP, LIPID, AST, TSH, ALT #### [facility] [address] [address] [address] Viri Strong MUCOUS NONE SEEN Normal NONE SEEN [facility] Comment on above: Performed By: #### B MP, LIPID, AST, TSH, ALT #### [facility] [address] [address] [address] Viri Strong Nitrite Ql (U) Negative Normal NEGATIVE [facility] Comment on above: Performed By: #### B MP, LIPID, AST, TSH, ALT #### [facility] [address] [address] [address] Viri Strong pH (U) 5.0 [pH] Normal 5-9 [facility] Comment on above: Performed By: #### B MP, LIPID, AST, TSH, ALT #### [facility] [address] [place] [address] Dr. Viri Strong RBC 0-2 Normal 0-2 [facility] Comment on above: Performed By: #### B MP, LIPID, AST, TSH, ALT #### [facility] [address] [place] [address] Dr. Viri Strong SPEC GRAVITY 1.010 Normal 1.005-<=1.025 [facility] [place] Comment on above: Performed By: #### B MP, LIPID, AST, TSH, ALT #### [facility] [address] [address] [address] Viri Strong UA PROTEIN Negative Normal NEGATIVE/ TRACE [facility] Comment on above: Performed By: #### B MP, LIPID, AST, TSH, ALT #### [facility] [address] [address] [address] Viri Strong Urobilinogen Qn (U) 0.2 {Alem'U}/dL Normal 0.2 - 1. 0 [facility] Comment on above: Performed By: #### B MP, LIPID, AST, TSH, ALT #### [facility] [address] [place] [address] Dr. Viri Strong WBC 2-5 Abnormal NONE SEEN [facility] Comment on above: Performed By: #### B MP, LIPID, AST, TSH, ALT #### [facility] [address] [place] [address] Dr. Viri Strong PTH INTACTon 01-04-2022 PTH, Intact 45 pg/mL Normal 15-65 [facility] Comment on above: Performed By: #### B MP, LIPID, AST, TSH, ALT #### [facility] [address] [place] [address] Dr. Viri Strong FERRITINon 01-03-2022 Ferritin [Mass/Vol] 51.0 ng/mL Normal 8.0-252.0 [facility] Comment on above: Performed By: #### B MP, LIPID, AST, TSH, ALT #### [facility] [address] [place] [address] Dr. Viri Strong HEMOGRAM AND PLATELon 2021 Hematocrit (Bld) [Volume fraction] 31.7 % Critically low 36.0-48.0 [facility] Comment on above: Performed By: #### B MP, LIPID, AST, TSH, ALT #### [facility] [address] [place] [address] Dr. Viri Strong Hemoglobin (Bld) [Mass/Vol] 10.2 g/dL Critically low 12.0-16.0 [facility] Comment on above: Performed By: #### B MP, LIPID, AST, TSH, ALT #### [facility] [address] [place] [address] Dr. Viri Strong MCH (RBC) [Entitic mass] 29.2 pg Normal 26.7-34.0 [facility] Comment on above: Performed By: #### B MP, LIPID, AST, TSH, ALT #### [facility] [address] [place] [address] Dr. Viri Strong MCHC (RBC) [Mass/Vol] 32.2 g/dL Normal 29.9-35.2 [facility] Comment on above: Performed By: #### B MP, LIPID, AST, TSH, ALT #### [facility] [address] [address] [address] Viri Strong MCV (RBC) [Entitic vol] 90.8 fL Normal 81.0-99.0 [facility] Comment on above: Performed By: #### B MP, LIPID, AST, TSH, ALT #### [facility] [address] [place] [address] Dr. Viri Strong PLT 231 103/ul Normal 150-450 [facility] Comment on above: Performed By: #### B MP, LIPID, AST, TSH, ALT #### [facility] [address] [place] [address] Dr. Viri Strong RBC 3.49 106/ul Critically low 4.20-5.40 [facility] Comment on above: Performed By: #### B MP, LIPID, AST, TSH, ALT #### [facility] [address] [place] [address] Dr. Viri Strong WBC 5.9 103/ul Normal 4.0-11.0 [facility] Comment on above: Performed By: #### B MP, LIPID, AST, TSH, ALT #### [facility] [address] [place] [address] Dr. Viri Strong IRON AND TIBCon 01-03-2022 % SATURATION 18.0 % Normal [facility] Comment on above: Performed By: #### B MP, LIPID, AST, TSH, ALT #### [facility] [address] [place] [address] Dr. Viri Strong Iron [Mass/Vol] 58.0 ug/dL Normal 50.0-170.0 [facility] Comment on above: Performed By: #### B MP, LIPID, AST, TSH, ALT #### [facility] [address] [place] [address] Dr. Viri Strong TIBC DIRECT 322.0 ug/dL Normal 250.0-450.0 [facility] Comment on above: Performed By: #### B MP, LIPID, AST, TSH, ALT #### [facility] [address] [place] [address] Dr. Viri Strong MAGNESIUMon 10-31-2022 Magnesium [Mass/Vol] 2.1 mg/dL Normal 1.8-2.4 [facility] Comment on above: Performed By: #### M G, URIC, RENAL #### [facility] [address] [address] [address] Viri Strong RENAL FUNCTION PANELon 01-03 Albumin [Mass/Vol] 4.3 g/dL Normal 3.4-5.0 [facility] Comment on above: Performed By: #### M G, URIC, RENAL #### [facility] [address] [place] [address] Dr. Viri Strong Calcium [Mass/Vol] 9.0 mg/dL Normal 8.5-10.1 [facility] Comment on above: Performed By: #### M Nasreen, URIC, RENAL #### [facility] [address] [place] [address] Dr. Viri Strong Chloride [Moles/Vol] 108 mmol/L Critically high 98-107 [facility] Comment on above: Performed By: #### M G, URIC, RENAL #### [facility] [address] [place] [address] Dr. Viri Strong CO2 [Moles/Vol] 23.4 mmol/L Normal 21.0-32.0 [facility] Comment on above: Performed By: #### M G, URIC, RENAL #### [facility] [address] [place] [address] Dr. Viri Strong Creatinine [Mass/Vol] 1.32 mg/dL Critically high 0.55-1.02 [facility] Comment on above: Performed By: #### M G, URIC, RENAL #### [facility] [address] [address] [address] Viri Strong EGFR-AF BURUNDIAN 48 mL/min/1.73m2 Critically low >=60 [facility] Comment on above: Performed By: #### M G, URIC, RENAL #### [facility] [address] [address] [address] Viri Strong EGFR-NON AF BURUNDIAN 39 mL/min/1.73m2 Critically low >=60 [facility] Comment on above: Performed By: #### M G, URIC, RENAL #### [facility] [address] [address] [address] Viri Strong Glucose [Mass/Vol] 92 mg/dL Normal 74-106 [facility] Comment on above: Performed By: #### M G, URIC, RENAL #### [facility] [address] [place] [address] Dr. Viri Strong Phosphate [Mass/Vol] 4.0 mg/dL Normal 2.6-4.7 [facility] Comment on above: Performed By: #### M G, URIC, RENAL #### [facility] [address] [place] [address] Dr. Viri Strong Potassium [Moles/Vol] 4.7 mmol/L Normal 3.5-5.1 [facility] Comment on above: Performed By: #### M G, URIC, RENAL #### [facility] [address] [place] [address] Dr. Viri Strong Sodium [Moles/Vol] 138 mmol/L Normal 136-145 [facility] Comment on above: Performed By: #### M G, URIC, RENAL #### [facility] [address] [place] [address] Dr. Viri Strong Urea nitrogen [Mass/Vol] 33.0 mg/dL Critically high 7.0-18.0 [facility] Comment on above: Performed By: #### M G, URIC, RENAL #### [facility] [address] [place] [address] Dr. Viri Strong UA RANDOM W/MICROSCOPICon BACTERIA NONE SEEN Normal NONE SEEN [facility] Comment on above: Performed By: #### B MP, LIPID, AST, TSH, ALT #### [facility] [address] [place] [address] Dr. Viri Strong Bilirubin Ql (U) Negative Normal NEGATIVE [facility] Comment on above: Performed By: #### B MP, LIPID, AST, TSH, ALT #### [facility] [address] [place] [address] Dr. Viri Strong CAST NONE SEEN Normal NONE SEEN [facility] Comment on above: Performed By: #### B MP, LIPID, AST, TSH, ALT #### [facility] [address] [place] [address] Dr. Viri Strong Clarity (U) CLEAR Normal CLEAR [facility] Comment on above: Performed By: #### B MP, LIPID, AST, TSH, ALT #### [facility] [address] [address] [address] Viri Strong Color (U) LT. YELLOW Normal YELLOW [facility] Comment on above: Performed By: #### B MP, LIPID, AST, TSH, ALT #### [facility] [address] [place] [address] Dr. Viri Strong Crystals LM Nom (Urine sed) NONE SEEN Normal NONE SEEN [facility] Comment on above: Performed By: #### B MP, LIPID, AST, TSH, ALT #### [facility] [address] [place] [address] Dr. Viri Strong Epithelial cells LM Ql (Urine sed) NONE SEEN Normal NONE SEEN /RARE [facility] Comment on above: Performed By: #### B MP, LIPID, AST, TSH, ALT #### [facility] [address] [place] [address] Dr. Viri Strong Glucose Ql (U) Negative Normal NEGATIVE [facility] Comment on above: Performed By: #### B MP, LIPID, AST, TSH, ALT #### [facility] [address] [place] [address] Dr. Viri Strong Hemoglobin Ql (U) Negative Normal NEGATIVE [facility] Comment on above: Performed By: #### B MP, LIPID, AST, TSH, ALT #### [facility] [address] [address] [address] Viri Strong Ketones Ql (U) Negative Normal NEGATIVE [facility] Comment on above: Performed By: #### B MP, LIPID, AST, TSH, ALT #### [facility] [address] [place] [address] Dr. Viri Strong LEUKOCYTES SMALL Abnormal NEGATIVE [facility] Comment on above: Performed By: #### B MP, LIPID, AST, TSH, ALT #### [facility] [address] [place] [address] Dr. Viri Strong MUCOUS NONE SEEN Normal NONE SEEN [facility] Comment on above: Performed By: #### B MP, LIPID, AST, TSH, ALT #### [facility] [address] [place] [address] Dr. Viri Strong Nitrite Ql (U) Negative Normal NEGATIVE [facility] Comment on above: Performed By: #### B MP, LIPID, AST, TSH, ALT #### [facility] [address] [place] [address] Dr. Viri Strong pH (U) 5.5 [pH] Normal 5-9 [facility] Comment on above: Performed By: #### B MP, LIPID, AST, TSH, ALT #### [facility] [address] [place] [address] Dr. Viri Strong RBC 0-2 Normal 0-2 [facility] Comment on above: Performed By: #### B MP, LIPID, AST, TSH, ALT #### [facility] [address] [place] [address] Dr. Viri Strong SPEC GRAVITY 1.020 Normal 1.005-<=1.025 [facility] [place] Comment on above: Performed By: #### B MP, LIPID, AST, TSH, ALT #### [facility] [address] [place] [address] Dr. Viri Strong UA PROTEIN Negative Normal NEGATIVE/ TRACE [facility] Comment on above: Performed By: #### B MP, LIPID, AST, TSH, ALT #### [facility] [address] [place] [address] Dr. Viri Strong Urobilinogen Qn (U) 0.2 {Alem'U}/dL Normal 0.2 - 1. 0 [facility] Comment on above: Performed By: #### B MP, LIPID, AST, TSH, ALT #### [facility] [address] [place] [address] Dr. Viri Strong WBC 0-2 Abnormal NONE SEEN [facility] Comment on above: Performed By: #### B MP, LIPID, AST, TSH, ALT #### [facility] [address] [place] [address] Dr. Viri Strong URIC ACID SERUMon 01-03-2022 Urate [Mass/Vol] 8.7 mg/dL Critically high 2.6-6.0 [facility] Comment on above: Performed By: #### M G, URIC, RENAL #### [facility] [address] [place] [address] Dr. Viri Strong URINE T PROTEIN CREAT RATIOo n 01-03-2022 Protein (U) [Mass/Vol] 30.8 mg/dL Critically high <=12.0 [facility] Comment on above: Performed By: #### B MP, LIPID, AST, TSH, ALT #### [facility] [address] [place] [address] Dr. Viri Strong UR PROT CREAT RAT 0.26 Normal [facility] Comment on above: Performed By: #### B MP, LIPID, AST, TSH, ALT #### [facility] [address] [place] [address] Dr. Viri Strong URINE CREAT 118.48 mg/dL Normal 20.00-300.00 [facility] Comment on above: Performed By: #### B MP, LIPID, AST, TSH, ALT #### [facility] [address] [place] [address] Dr. Viri Strong VITAMIN D 25 OHon 01-03-2022 VIT D 25-OH 36.5 ng/mL Normal [facility] Comment on above: Performed By: #### B MP, LIPID, AST, TSH, ALT #### [facility] [address] [place] [address] Dr. Viri Strong VIT D RANGES SEE BELOW Normal [facility] Comment on above: Result Comment: <20 ng/mL Vit D deficient 20 - <30 ng/mL Vit D insufficient 30 - 100 ng/mL Vit D sufficient >100 ng/mL Potential Toxicity Performed By: #### B MP, LIPID, AST, TSH, ALT #### [facility] [address] [place] [address] Dr. Viri Strong MICROALBUMIN URINEon 022 Albumin, Urine 5.1 ug/mL Normal Not Estab. [facility] Comment on above: Performed By: #### B MP, LIPID, AST, TSH, ALT #### [facility] [address] [address] [address] Viri Strong VIT D 25-OH [facility]on 2021 Vitamin D, 25-Hydroxy 36.7 ng/mL Normal 30.0-100.0 [facility] Comment on above: Result Comment: Silvina min D deficiency has been defined by the [place] of [employer] and an Endocrine Society practice guideline as a level of serum 25-OH vitamin D less than 20 ng/mL (1,2). The Endocrine Society went on to further define vitamin D insufficiency as a level between 21 and 29 ng/mL (2). 1. IOM ([place] of [employer]). 2010. Dietary reference intakes for calcium and D. [place]: The National Academies Press. 2. Levon MF, Prakash NC, Diamond KIRBY, et al. Evaluation, treatment, and prevention of vitamin D deficiency: an Endocrine Society clinical practice guideline. JCEM. 2010; 96(7):1911-30. Performed By: #### B MP, LIPID, AST, TSH, ALT #### [facility] [address] [address] [address] Viri Strong CBC AUTO DIFFon 10-26-2021 BASO # 0.1 103/ul Normal 0.0-0.1 [facility] Comment on above: Performed By: #### B MP, LIPID, AST, TSH, ALT #### [facility] [address] [address] [address] Viri Strong Basophils/100 WBC (Bld) 1.0 % Normal 0.2-2.0 [facility] Comment on above: Performed By: #### B MP, LIPID, AST, TSH, ALT #### [facility] [address] [address] [address] Viri Strong EO # 0.2 103/ul Normal 0.0-0.7 [facility] Comment on above: Performed By: #### B MP, LIPID, AST, TSH, ALT #### [facility] [address] [place] [address] Dr. Viri Strong Eosinophils/100 WBC (Bld) 4.6 % Normal 0.9-7.0 [facility] Comment on above: Performed By: #### B MP, LIPID, AST, TSH, ALT #### [facility] [address] [place] [address] Dr. Viri Strong Erythrocyte distribution width (RBC) [Ratio] 13.5 % Normal 11.0-15.0 [facility] Comment on above: Performed By: #### B MP, LIPID, AST, TSH, ALT #### [facility] [address] [place] [address] Dr. Viri Strong Hematocrit (Bld) [Volume fraction] 32.3 % Critically low 36.0-48.0 [facility] Comment on above: Performed By: #### B MP, LIPID, AST, TSH, ALT #### [facility] [address] [place] [address] Dr. Viri Strong Hemoglobin (Bld) [Mass/Vol] 10.7 g/dL Critically low 12.0-16.0 [facility] Comment on above: Performed By: #### B MP, LIPID, AST, TSH, ALT #### [facility] [address] [place] [address] Dr. Viri Strong IG # 0.01 10e3/ul Normal 0.00-0.03 [facility] Comment on above: Performed By: #### B MP, LIPID, AST, TSH, ALT #### [facility] [address] [place] [address] Dr. Viri Strong IG % 0.2 % Normal 0.0-0.5 [facility] Comment on above: Performed By: #### B MP, LIPID, AST, TSH, ALT #### [facility] [address] [place] [address] Dr. Viri Strong LYMPH # 1.3 103/ul Normal 1.2-3.8 [facility] Comment on above: Performed By: #### B MP, LIPID, AST, TSH, ALT #### [facility] [address] [place] [address] Dr. Viri Strong Lymphocytes/100 WBC (Bld) 25.5 % Normal 20.5-60.0 [facility] Comment on above: Performed By: #### B MP, LIPID, AST, TSH, ALT #### [facility] [address] [place] [address] Dr. Viri Strong MANUAL DIFF REQ NO Normal [facility] [place] Comment on above: Performed By: #### B MP, LIPID, AST, TSH, ALT #### [facility] [address] [place] [address] Dr. Viri Strong MCH (RBC) [Entitic mass] 29.3 pg Normal 26.7-34.0 [facility] Comment on above: Performed By: #### B MP, LIPID, AST, TSH, ALT #### [facility] [address] [place] [address] Dr. Viri Strong MCHC (RBC) [Mass/Vol] 33.1 g/dL Normal 29.9-35.2 [facility] Comment on above: Performed By: #### B MP, LIPID, AST, TSH, ALT #### [facility] [address] [place] [address] Dr. Viri Strong MCV (RBC) [Entitic vol] 88.5 fL Normal 81.0-99.0 [facility] Comment on above: Performed By: #### B MP, LIPID, AST, TSH, ALT #### [facility] [address] [place] [address] Dr. Viri Strong MONO # 0.4 103/ul Normal 0.3-0.8 [facility] Comment on above: Performed By: #### B MP, LIPID, AST, TSH, ALT #### [facility] [address] [place] [address] Dr. Viri Strong Monocytes/100 WBC (Bld) 8.0 % Normal 1.7-12.0 [facility] Comment on above: Performed By: #### B MP, LIPID, AST, TSH, ALT #### [facility] [address] [place] [address] Dr. Viri Strong NEUT # 3.0 103/ul Normal 1.4-6.5 [facility] Comment on above: Performed By: #### B MP, LIPID, AST, TSH, ALT #### [facility] [address] [address] [address] Viri Strong Neutrophils/100 WBC (Bld) 60.7 % Normal 43.0-75.0 [facility] Comment on above: Performed By: #### B MP, LIPID, AST, TSH, ALT #### [facility] [address] [address] [address] Viri Strong Platelet mean volume (Bld) [Entitic vol] 9.8 fL Normal 9.5-13.5 [facility] Comment on above: Performed By: #### B MP, LIPID, AST, TSH, ALT #### [facility] [address] [address] [address] Viri Strong PLT 266 103/ul Normal 150-450 [facility] Comment on above: Performed By: #### B MP, LIPID, AST, TSH, ALT #### [facility] [address] [address] [address] Viri Strong RBC 3.65 106/ul Critically low 4.20-5.40 [facility] [place] Comment on above: Performed By: #### B MP, LIPID, AST, TSH, ALT #### [facility] [address] [address] [address] Viri Strong WBC 5.0 103/ul Normal 4.0-11.0 [facility] Comment on above: Performed By: #### B MP, LIPID, AST, TSH, ALT #### [facility] [address] [address] [address] Viri Strong GLYCOHEMOGLOBIN A1Con 2021 ADA RECOMMENDATION SEE BELOW Normal [facility] Comment on above: Result Comment: ADA RECOMMENDED LIMIT 4.0 - 6.0 ADA THERAPEUTIC TARGET < 7.0 ACTION SUGGESTED > 7.0 Performed By: #### B MP, LIPID, AST, TSH, ALT #### [facility] [address] [address] [address] Viri Strong Glucose [Mass/Vol] 117 mg/dL Normal [facility] Comment on above: Performed By: #### B MP, LIPID, AST, TSH, ALT #### [facility] [address] [place] [address] Dr. Viri Strong HbA1c (Bld) [Mass fraction] 5.7 % Normal 4.5-6.2 [facility] Comment on above: Performed By: #### B MP, LIPID, AST, TSH, ALT #### [facility] [address] [place] [address] Dr. Viri Strong LIPID PROFILEon 10-26-2021 CHOL-HDL RATIO NORM SEE BELOW Normal [facility] Comment on above: Result Comment: 3.3 - 4.4 LOW RISK 4.4 - 7.1 AVERAGE RISK 7.1 - 11.0 MODERATE RISK >11.0 HIGH RISK Performed By: #### B MP, LIPID, AST, TSH, ALT #### [facility] [address] [place] [address] Dr. Viri Strong Cholesterol [Mass/Vol] 158 mg/dL Normal <=200 [facility] Comment on above: Performed By: #### B MP, LIPID, AST, TSH, ALT #### [facility] [address] [place] [address] Dr. Viri Strong Cholesterol in HDL [Mass/Vol] 86 mg/dL Critically high 40-60 [facility] Comment on above: Performed By: #### B MP, LIPID, AST, TSH, ALT #### [facility] [address] [place] [address] Dr. Viri Strong Cholesterol in LDL [Mass/Vol] 50.0 mg/dL Normal [facility] Comment on above: Performed By: #### B MP, LIPID, AST, TSH, ALT #### [facility] [address] [place] [address] Dr. Viri Strong Cholesterol.total/Chol esterol in HDL [Mass ratio] 1.8 {ratio} Normal [facility] Comment on above: Performed By: #### B MP, LIPID, AST, TSH, ALT #### [facility] [address] [address] [address] Viri Strong HDL NORMAL > or = 60 mg/dl - LOW CARDIOVASCULAR RISK <40 mg/dl - HIGH CARDIOVASCULAR RISK Normal [facility] Comment on above: Performed By: #### B MP, LIPID, AST, TSH, ALT #### [facility] [address] [address] [address] Viri Strong LDL CALC NORMAL SEE BELOW Normal [facility] [place] Comment on above: Result Comment: <100 mg/dl OPTIMAL 100 - 129 mg/dl NEAR OR ABOVE OPTIMAL 130 - 159 mg/dl BORDERLINE HIGH 160 - 189 mg/dl HIGH >190 mg/dl VERY HIGH Performed By: #### B MP, LIPID, AST, TSH, ALT #### [facility] [address] [address] [address] Viri Strong Triglyceride [Mass/Vol] 110 mg/dL Normal <=150 [facility] Comment on above: Performed By: #### B MP, LIPID, AST, TSH, ALT #### [facility] [address] [address] [address] Viri Strong VLDL CALC 22.0 mg/dL Normal [facility] Comment on above: Performed By: #### B MP, LIPID, AST, TSH, ALT #### [facility] [address] [place] [address] Dr. Viri Strong PROF CHEM 8 (BAS METB)on Anion gap [Moles/Vol] 13.8 mmol/L Normal [facility] Comment on above: Performed By: #### B MP, LIPID, AST, TSH, ALT #### [facility] [address] [address] [address] Viri Strong Calcium [Mass/Vol] 9.3 mg/dL Normal 8.5-10.1 [facility] Comment on above: Performed By: #### B MP, LIPID, AST, TSH, ALT #### [facility] [address] [address] [address] Viri Strong Chloride [Moles/Vol] 92 mmol/L Critically low 98-107 [facility] Comment on above: Performed By: #### B MP, LIPID, AST, TSH, ALT #### [facility] [address] [address] [address] Viri Strong CO2 [Moles/Vol] 26.0 mmol/L Normal 21.0-32.[address] [facility] Comment on above: Performed By: #### B MP, LIPID, AST, TSH, ALT #### [facility] [address] [address] [address] Viri Strong Creatinine [Mass/Vol] 1.15 mg/dL Critically high 0.55-1.02 [facility] Comment on above: Performed By: #### B MP, LIPID, AST, TSH, ALT #### [facility] [address] [place] [address] Dr. Viri Strong EGFR-AF BURUNDIAN 56 mL/min/1.73m2 Critically low >=60 [facility] Comment on above: Performed By: #### B MP, LIPID, AST, TSH, ALT #### [facility] [address] [place] [address] Dr. Viri Strong EGFR-NON AF BURUNDIAN 46 mL/min/1.73m2 Critically low >=60 [facility] Comment on above: Performed By: #### B MP, LIPID, AST, TSH, ALT #### [facility] [address] [place] [address] Dr. Viri Strong Glucose [Mass/Vol] 92 mg/dL Normal 74-106 [facility] Comment on above: Performed By: #### B MP, LIPID, AST, TSH, ALT #### [facility] [address] [place] [address] Dr. Viri Strong Potassium [Moles/Vol] 4.8 mmol/L Normal 3.5-5.1 [facility] Comment on above: Performed By: #### B MP, LIPID, AST, TSH, ALT #### [facility] [address] [place] [address] Dr. Viri Strong Sodium [Moles/Vol] 127 mmol/L Critically low 136-145 [facility] Comment on above: Performed By: #### B MP, LIPID, AST, TSH, ALT #### [facility] [address] [place] [address] Dr. Viri Strong Urea nitrogen [Mass/Vol] 19.0 mg/dL Critically high 7.0-18.0 [facility] Comment on above: Performed By: #### B MP, LIPID, AST, TSH, ALT #### [facility] [address] [place] [address] Dr. Viri Strong Urea nitrogen/Creatinine [Mass ratio] 16.5 mg/mg Normal [facility] Comment on above: Performed By: #### B MP, LIPID, AST, TSH, ALT #### [facility] [address] [place] [address] Dr. Viri Strong SGOTon 10-26-2021 AST [Catalytic activity/Vol] 15 U/L Normal 15-37 [facility] Comment on above: Performed By: #### B MP, LIPID, AST, TSH, ALT #### [facility] [address] [place] [address] Dr. Viri Strong SGPTon 10-26-2021 ALT [Catalytic activity/Vol] 25 U/L Normal 14-59 [facility] Comment on above: Performed By: #### B MP, LIPID, AST, TSH, ALT #### [facility] [address] [place] [address] Dr. Viri Strong TSHon 10-26-2021 TSH 1.833 uIU/mL Normal 0.358-3.740 [facility] Comment on above: Performed By: #### B MP, LIPID, AST, TSH, ALT #### [facility] [address] [place] [address] Dr. Viri Strong FREE LIGHT CHAINS PLUS RATIO on 06-03-2021 Free Albert Lt Chains,S 26.6 mg/L Critically high 3.3-19.4 [facility] Comment on above: Performed By: #### B MP, LIPID, AST, TSH, ALT #### [facility] [address] [place] [address] Dr. Viri Strong Free Lambda Lt Chains,S 19.6 mg/L Normal 5.7-26.3 [facility] Comment on above: Performed By: #### B MP, LIPID, AST, TSH, ALT #### [facility] [address] [place] [address] Dr. Viri Strong Albert/Lambda Ratio, S 1.36 Normal 0.26-1.65 [facility] Comment on above: Performed By: #### B MP, LIPID, AST, TSH, ALT #### [facility] [address] [place] [address] Dr. Viri Strong IMMUNOFIXATION (MONIKA), URINEo n 06-03-2021 MONIKA Interpretation:U Comment Normal [facility] Comment on above: Result Comment: No m onoclonality detected. Performed By: #### B MP, LIPID, AST, TSH, ALT #### [facility] [address] [place] [address] Dr. Viri Strong PROTEIN ELECTROPHERESIS URIN E RANDOMon 06-03-2021 Albumin, U 60.9 % Normal [facility] Comment on above: Performed By: #### U PTE #### [facility] [address] [place] [address] Dr. Viri Strong Alpha-1 Globulin U 3.9 % Normal [facility] Comment on above: Performed By: #### U PTE #### [facility] [address] [place] [address] Dr. Viri Strong Alpha-2 Glubulin U 8.2 % Normal [facility] Comment on above: Performed By: #### U PTE #### [facility] [address] [place] [address] Dr. Viri Strong Beta Globulin, U 17.3 % Normal [facility] Comment on above: Performed By: #### U PTE #### [facility] [address] [place] [address] Dr. Viri Strong Gamma Globulin U 9.7 % Normal [facility] Comment on above: Performed By: #### U PTE #### [facility] [address] [place] [address] Dr. Viri Strong M-Ciro, % Not Observed Normal Not Observed [facility] Comment on above: Performed By: #### U PTE #### [facility] [address] [address] [address] Viri Strong PDF . Normal [facility] Comment on above: Performed By: #### U PTE #### [facility] [address] [address] [address] Viri Strong Please note: Comment Normal [facility] Comment on above: Result Comment: Prot ein electrophoresis scan will follow via computer, mail, or business process coordinator delivery. Performed By: #### U PTE #### [facility] [address] [place] [address] Dr. Viri Strong Protein (U) [Mass/Vol] 12.2 mg/dL Normal Not Estab. [facility] Comment on above: Performed By: #### U PTE #### [facility] [address] [place] [address] Dr. Viri Strong HEP B SURFACE AGon HBsAg Screen Negative Normal Negative [facility] Comment on above: Performed By: #### B MP, LIPID, AST, TSH, ALT #### [facility] [address] [place] [address] Dr. Viri Strong HEPATITIS B SURFACE ANTIBODY , QUANTon 06-02-2021 Hepatitis B Surf AB Quant <3.1 Critically low Immunity>9.9 [facility] Comment on above: Result Comment: Stat us of Immunity Anti-HBs Level Inconsistent with Immunity 0.0 - 9.9 Consistent with Immunity >9.9 Performed By: #### B MP, LIPID, AST, TSH, ALT #### [facility] [address] [place] [address] Dr. Viri Strong HEPATITIS C VIRUS AB W/ REFL EX QUANTon 06-02-2021 HCV AB <0.1 Normal 0.0-0.9 [facility] Comment on above: Performed By: #### H CVPCRR #### [facility] [address] [place] [address] Dr. Viri Strong Interpretation: Comment Normal [facility] [place] Comment on above: Result Comment: Nega tive Not infected with HCV, unless recent infection is suspected or other evidence exists to indicate HCV infection. Performed By: #### H CVPCRR #### [facility] [address] [place] [address] Dr. Viri Strong IMMUNOFIXATION (MONIKA), SERUMo n 06-02-2021 IMMUNOFIXATION RESULT Comment Normal [facility] Comment on above: Result Comment: No m onoclonality detected. Performed By: #### B MP, LIPID, AST, TSH, ALT #### [facility] [address] [address] [address] Viri Strong Immunoglobulin A, Qn, Serum 152 mg/dL Normal 64-422 [facility] Comment on above: Performed By: #### B MP, LIPID, AST, TSH, ALT #### [facility] [address] [place] [address] Dr. Viri Strong Immunoglobulin G, Qn, Serum 510 mg/dL Critically low 586-1602 [facility] Comment on above: Performed By: #### B MP, LIPID, AST, TSH, ALT #### [facility] [address] [address] [address] Viri Strong Immunoglobulin M, Qn, Serum 68 mg/dL Normal 26-217 [facility] Comment on above: Performed By: #### B MP, LIPID, AST, TSH, ALT #### [facility] [address] [address] [address] Viri Strong PROTEIN ELECTROPHERESISon Albumin [Mass/Vol] 4.0 g/dL Normal 2.9-4.4 [facility] Comment on above: Performed By: #### B MP, LIPID, AST, TSH, ALT #### [facility] [address] [place] [address] Dr. Viri Strong Albumin/Globulin [Mass ratio] 1.4 {ratio} Normal 0.7-1.7 [facility] Comment on above: Performed By: #### B MP, LIPID, AST, TSH, ALT #### [facility] [address] [place] [address] Dr. Viri Strong Wxplm-2-Qayagvid 0.3 g/dL Normal 0.0-0.4 [facility] Comment on above: Performed By: #### B MP, LIPID, AST, TSH, ALT #### [facility] [address] [place] [address] Dr. Viri Strong Omtpz-2-Arzxsigx 0.9 g/dL Normal 0.4-1.[address] [facility] Comment on above: Performed By: #### B MP, LIPID, AST, TSH, ALT #### [facility] [address] [place] [address] Dr. Viri Strong Beta Globulin 1.1 g/dL Normal 0.7-1.3 [facility] Comment on above: Performed By: #### B MP, LIPID, AST, TSH, ALT #### [facility] [address] [place] [address] Dr. Viri Strong Gamma Globulin 0.6 g/dL Normal 0.4-1.8 [facility] Comment on above: Performed By: #### B MP, LIPID, AST, TSH, ALT #### [facility] [address] [place] [address] Dr. Viri Strong Globulin (S) [Mass/Vol] 2.9 g/dL Normal 2.2-3.9 [facility] Comment on above: Performed By: #### B MP, LIPID, AST, TSH, ALT #### [facility] [address] [place] [address] Dr. Viri Strong M-Ciro Not Observed Normal Not Observed [facility] Comment on above: Performed By: #### B MP, LIPID, AST, TSH, ALT #### [facility] [address] [place] [address] Dr. Viri Strong PDF . Normal [facility] Comment on above: Performed By: #### B MP, LIPID, AST, TSH, ALT #### [facility] [address] [place] [address] Dr. Viri Strong Please note: Comment Normal [facility] Comment on above: Result Comment: Prot ein electrophoresis scan will follow via computer, mail, or business process coordinator delivery. Performed By: #### B MP, LIPID, AST, TSH, ALT #### [facility] [address] [place] [address] Dr. Viri Strong Protein [Mass/Vol] 6.9 g/dL Normal 6.0-8.5 [facility] Comment on above: Performed By: #### B MP, LIPID, AST, TSH, ALT #### [facility] [address] [place] [address] Dr. Viri Strong PTH INTACTon 06-02-2021 PTH, Intact 27 pg/mL Normal 15-65 [facility] Comment on above: Performed By: #### B MP, LIPID, AST, TSH, ALT #### [facility] [address] [place] [address] Dr. Viri Strong FERRITINon 06-01-2021 Ferritin [Mass/Vol] 48.0 ng/mL Normal 11.1-264.0 [facility] Comment on above: Performed By: #### B MP, LIPID, AST, TSH, ALT #### [facility] [address] [place] [address] Dr. Viri Strong HEMOGRAM AND PLATELon 2021 Hematocrit (Bld) [Volume fraction] 33.9 % Critically low 36.0-48.0 [facility] Comment on above: Performed By: #### B MP, LIPID, AST, TSH, ALT #### [facility] [address] [place] [address] Dr. Viri Strong Hemoglobin (Bld) [Mass/Vol] 11.1 g/dL Critically low 12.0-16.0 [facility] Comment on above: Performed By: #### B MP, LIPID, AST, TSH, ALT #### [facility] [address] [place] [address] Dr. Viri Strong MCH (RBC) [Entitic mass] 29.8 pg Normal 26.7-34.0 [facility] Comment on above: Performed By: #### B MP, LIPID, AST, TSH, ALT #### [facility] [address] [place] [address] Dr. Viri Strong MCHC (RBC) [Mass/Vol] 32.7 g/dL Normal 29.9-35.2 [facility] Comment on above: Performed By: #### B MP, LIPID, AST, TSH, ALT #### [facility] [address] [place] [address] Dr. Viri Strong MCV (RBC) [Entitic vol] 90.9 fL Normal 81.0-99.0 [facility] Comment on above: Performed By: #### B MP, LIPID, AST, TSH, ALT #### [facility] [address] [address] [address] Viri Strong PLT 240 103/ul Normal 150-450 [facility] Comment on above: Performed By: #### B MP, LIPID, AST, TSH, ALT #### [facility] [address] [place] [address] Dr. Viri Strong RBC 3.73 106/ul Critically low 4.20-5.40 [facility] Comment on above: Performed By: #### B MP, LIPID, AST, TSH, ALT #### [facility] [address] [place] [address] Dr. Viri Strong WBC 7.8 103/ul Normal 4.0-11.0 [facility] Comment on above: Performed By: #### B MP, LIPID, AST, TSH, ALT #### [facility] [address] [place] [address] Dr. Viri Strong IRON AND TIBCon 06-01-2021 % SATURATION 18.0 % Normal [facility] Comment on above: Performed By: #### B MP, LIPID, AST, TSH, ALT #### [facility] [address] [place] [address] Dr. Viri Strong Iron [Mass/Vol] 58.0 ug/dL Normal 37.0-170.0 [facility] Comment on above: Performed By: #### B MP, LIPID, AST, TSH, ALT #### [facility] [address] [place] [address] Dr. Viri Strong TIBC DIRECT 323.0 ug/dL Normal 261.0-497.0 [facility] Comment on above: Performed By: #### B MP, LIPID, AST, TSH, ALT #### [facility] [address] [place] [address] Dr. Viri Strong MAGNESIUMon 06-01-2021 Magnesium [Mass/Vol] 2.1 mg/dL Normal 1.6-2.3 [facility] Comment on above: Performed By: #### B MP, LIPID, AST, TSH, ALT #### [facility] [address] [place] [address] Dr. Viri Strong RENAL FUNCTION PANELon 06-01 Albumin [Mass/Vol] 4.4 g/dL Normal 3.4-5.0 [facility] Comment on above: Performed By: #### B MP, LIPID, AST, TSH, ALT #### [facility] [address] [place] [address] Dr. Viri Strong Calcium [Mass/Vol] 10.0 mg/dL Normal 8.5-10.1 [facility] Comment on above: Performed By: #### B MP, LIPID, AST, TSH, ALT #### [facility] [address] [place] [address] Dr. Viri Strong Chloride [Moles/Vol] 103 mmol/L Normal 98-107 [facility] Comment on above: Performed By: #### B MP, LIPID, AST, TSH, ALT #### [facility] [address] [place] [address] Dr. Viri Strong CO2 [Moles/Vol] 26.8 mmol/L Normal 22.0-30.0 [facility] Comment on above: Performed By: #### B MP, LIPID, AST, TSH, ALT #### [facility] [address] [place] [address] Dr. Viri Strong Creatinine [Mass/Vol] 1.18 mg/dL Critically high 0.52-1.04 [facility] Comment on above: Performed By: #### B MP, LIPID, AST, TSH, ALT #### [facility] [address] [place] [address] Dr. Viri Strong EGFR-AF BURUNDIAN 54 mL/min/1.73m2 Critically low >=60 [facility] Comment on above: Performed By: #### B MP, LIPID, AST, TSH, ALT #### [facility] [address] [place] [address] Dr. Viri Strong EGFR-NON AF BURUNDIAN 45 mL/min/1.73m2 Critically low >=60 [facility] Comment on above: Performed By: #### B MP, LIPID, AST, TSH, ALT #### [facility] [address] [place] [address] Dr. Viri Strong Glucose [Mass/Vol] 93 mg/dL Normal 74-106 [facility] Comment on above: Performed By: #### B MP, LIPID, AST, TSH, ALT #### [facility] [address] [place] [address] Dr. Viri Strong Phosphate [Mass/Vol] 4.1 mg/dL Normal 2.5-4.5 [facility] Comment on above: Performed By: #### B MP, LIPID, AST, TSH, ALT #### [facility] [address] [place] [address] Dr. Viri Strong Potassium [Moles/Vol] 4.8 mmol/L Normal 3.4-5.0 [facility] Comment on above: Performed By: #### B MP, LIPID, AST, TSH, ALT #### [facility] [address] [place] [address] Dr. Viri Strong Sodium [Moles/Vol] 140 mmol/L Normal 137-145 [facility] Comment on above: Performed By: #### B MP, LIPID, AST, TSH, ALT #### [facility] [address] [place] [address] Dr. Viri Strong Urea nitrogen [Mass/Vol] 24.0 mg/dL Critically high 7.0-18.0 [facility] Comment on above: Performed By: #### B MP, LIPID, AST, TSH, ALT #### [facility] [address] [place] [address] Dr. Viri Strong UA RANDOM W/MICROSCOPICon BACTERIA TRACE Abnormal NONE SEEN [facility] Comment on above: Performed By: #### B MP, LIPID, AST, TSH, ALT #### [facility] [address] [place] [address] Dr. Viri Strong Bilirubin Ql (U) Negative Normal NEGATIVE [facility] Comment on above: Performed By: #### B MP, LIPID, AST, TSH, ALT #### [facility] [address] [address] [address] Viri Strong CAST NONE SEEN Normal NONE SEEN [facility] Comment on above: Performed By: #### B MP, LIPID, AST, TSH, ALT #### [facility] [address] [place] [address] Dr. Viri Strong Clarity (U) CLEAR Normal CLEAR [facility] Comment on above: Performed By: #### B MP, LIPID, AST, TSH, ALT #### [facility] [address] [place] [address] Dr. Viri Strong Color (U) LT. YELLOW Normal YELLOW [facility] Comment on above: Performed By: #### B MP, LIPID, AST, TSH, ALT #### [facility] [address] [place] [address] Dr. Viri Strong Crystals LM Nom (Urine sed) NONE SEEN Normal NONE SEEN [facility] Comment on above: Performed By: #### B MP, LIPID, AST, TSH, ALT #### [facility] [address] [place] [address] Dr. Viri Strong Epithelial cells LM Ql (Urine sed) RARE Normal NONE SEEN /RARE [facility] Comment on above: Performed By: #### B MP, LIPID, AST, TSH, ALT #### [facility] [address] [place] [address] Dr. Viri Strong Glucose Ql (U) Negative Normal NEGATIVE The [facility] Comment on above: Performed By: #### B MP, LIPID, AST, TSH, ALT #### [facility] [address] [place] [address] Dr. Viri Strong Hemoglobin Ql (U) Negative Normal NEGATIVE The [facility] Comment on above: Performed By: #### B MP, LIPID, AST, TSH, ALT #### [facility] [address] [address] [address] Viri Strong Ketones Ql (U) Negative Normal NEGATIVE [facility] Comment on above: Performed By: #### B MP, LIPID, AST, TSH, ALT #### [facility] [address] [address] [address] Viri Strong LEUKOCYTES MODERATE Abnormal NEGATIVE [facility] Comment on above: Performed By: #### B MP, LIPID, AST, TSH, ALT #### [facility] [address] [address] [address] Viri Strong MUCOUS NONE SEEN Normal NONE SEEN [facility] Comment on above: Performed By: #### B MP, LIPID, AST, TSH, ALT #### [facility] [address] [address] [address] Viri Strong Nitrite Ql (U) Negative Normal NEGATIVE [facility] Comment on above: Performed By: #### B MP, LIPID, AST, TSH, ALT #### [facility] [address] [address] [address] Viri Strong pH (U) 6.0 [pH] Normal 5-9 [facility] Comment on above: Performed By: #### B MP, LIPID, AST, TSH, ALT #### [facility] [address] [address] [address] Viri Strong RBC 0-2 Normal 0-2 [facility] Comment on above: Performed By: #### B MP, LIPID, AST, TSH, ALT #### [facility] [address] [address] [address] Viri Strong SPEC GRAVITY 1.010 Normal 1.005-<=1.025 [facility] Comment on above: Performed By: #### B MP, LIPID, AST, TSH, ALT #### [facility] [address] [address] [address] Viri Strong UA PROTEIN Negative Normal NEGATIVE/ TRACE [facility] Comment on above: Performed By: #### B MP, LIPID, AST, TSH, ALT #### [facility] [address] [place] [address] Dr. Viri Strong Urobilinogen Qn (U) 0.2 {Alem'U}/dL Normal 0.2 - 1. 0 [facility] Comment on above: Performed By: #### B MP, LIPID, AST, TSH, ALT #### [facility] [address] [address] [address] Viri Strong WBC 2-5 Abnormal NONE SEEN [facility] Comment on above: Performed By: #### B MP, LIPID, AST, TSH, ALT #### [facility] [address] [place] [address] Dr. Viri Strong URIC ACID SERUMon 06-01-2021 Urate [Mass/Vol] 7.4 mg/dL Critically high 2.5-6.2 [facility] Comment on above: Performed By: #### B MP, LIPID, AST, TSH, ALT #### [facility] [address] [address] [address] Viri Strong URINE T PROTEIN CREAT RATIOo n 06-01-2021 Protein (U) [Mass/Vol] 15.1 mg/dL Critically high <=12.0 [facility] Comment on above: Performed By: #### B MP, LIPID, AST, TSH, ALT #### [facility] [address] [place] [address] Dr. Viri Strong UR PROT CREAT RAT 0.29 Normal The [facility] Comment on above: Performed By: #### B MP, LIPID, AST, TSH, ALT #### [facility] [address] [place] [address] Dr. Viri Strong URINE CREAT 52.27 mg/dL Normal 20.00-300.00 [facility] Comment on above: Performed By: #### B MP, LIPID, AST, TSH, ALT #### [facility] [address] [place] [address] Dr. Viri Strong VITAMIN D 25 OHon 06-01-2021 VIT D 25-OH 38.9 ng/mL Normal [facility] Comment on above: Performed By: #### B MP, LIPID, AST, TSH, ALT #### [facility] [address] [address] [address] Viri Strong VIT D RANGES SEE BELOW [facility] Comment on above: Result Comment: <20 ng/mL Vit D deficient 20 - <30 ng/mL Vit D insufficient 30 - 100 ng/mL Vit D sufficient >100 ng/mL Potential Toxicity Performed By: #### B MP, LIPID, AST, TSH, ALT #### [facility] [address] [address] [address] Viri Strong Reminderson 06-28-2019 Reminders - From: Donna Fiore MA To: EU - Clinical; Sent: 01/16/2019 14:46:43 EST Show up: 04/16/2019 07:00:00 EST Subject: Ambulatory Reminder Due Date/Time: 04/30/2019 07:00:00 EST Reminder/Recall pt is scheduled for Renal US @[facility] on 04/15/18. Has f/u w/[facility] on 05/01/18. Renal US & CXR scheduled for 04/15/18 8am @[facility]. No results in chart yet Per [facility] scheduling, appt was cancelled and Pt stated she would call back to reschedule. Appt was cancelled 04/12/2019. Pt being sent cert letter. See other message pt r/s for renal us and cxr 07/02/2019 @ 8:45am, [facility]. F/u appt 07/08/19 for results.[facility] Reminderson 01-21-2019 Reminders - From: Donna Fiore MA To: EU - Recalls Michelle; Sent: 01/16/2019 14:06:32 EST Show up: 01/16/2019 07:00:00 EST Subject: needs Renal US & CXR Due Date/Time: 02/02/2019 07:00:00 EST Reminder/Recall pt needs scheduled for 2yr f/u w/Renal US & CXR. done [facility] Vital Signs Date Time Vital Sign Value Performing Clinician Facility 03-07-2023 10:28-0500 Body height 160 cm P[facility] 1 [facility] 03-07-2023 10:28-0500 Body mass index (BMI) [Ratio] 33.3 kg/m2 [facility] 1 [facility] 03-07-2023 10:28-0500 Body weight 85.28 kg [facility] 1 [facility] 02-21-2023 10:40-0500 Body height 160.02 cm Aleyda Dennis Other [facility] Other 02-21-2023 10:40-0500 Body mass index (BMI) [Ratio] 33.9 kg/m2 Aleyda Dennis Other [facility] Other 02-21-2023 10:40-0500 Body temperature 96.2 [degF] Aleyda Dennis Other [facility] Other 02-21-2023 10:40-0500 Body weight 86.82 kg Aleyda Dennis Other [facility] Other 02-21-2023 10:40-0500 Diastolic blood pressure 71 mm[Hg] Aleyda Dennis Other [facility] Other 02-21-2023 10:40-0500 Respiratory rate 18 /min Aleyda Dennis Other [facility] Other 02-21-2023 10:40-0500 SaO2% (BldA) [Mass fraction] 96 % Aleyda Dennis Other [facility] Other 02-21-2023 10:40-0500 Systolic blood pressure 108 mm[Hg] Aleyda Dennis Other [facility] Other 08-04-2022 12:00-0400 Body height 160.02 cm Aleyda Dennis Other [facility] Other 08-04-2022 12:00-0400 Body mass index (BMI) [Ratio] 33.69 kg/m2 Aleyda Dennis Other [facility] Other 08-04-2022 12:00-0400 Body temperature 96.8 [degF] Aleyda Dennis Other [facility] Other 08-04-2022 12:00-0400 Body weight 86.27 kg Aleyda Dennis Other [facility] Other 08-04-2022 12:00-0400 Diastolic blood pressure 86 mm[Hg] Aleyda Dennis Other [facility] Other 08-04-2022 12:00-0400 Respiratory rate 18 /min Aleyda Dennis Other [facility] Other 08-04-2022 12:00-0400 SaO2% (BldA) [Mass fraction] 95 % Aleyda Dennis Other [facility] Other 08-04-2022 12:00-0400 Systolic blood pressure 136 mm[Hg] Aleyda Dennis Other [facility] Other 01-13-2022 14:00-0500 Body height 160.02 cm Aleyda Dennis Other [facility] Other 01-13-2022 14:00-0500 Body mass index (BMI) [Ratio] 31.99 kg/m2 Aleyda Dennis Other [facility] Other 01-13-2022 14:00-0500 Body temperature 96.3 [degF] Aleyda Dennis Other [facility] Other 01-13-2022 14:00-0500 Body weight 81.92 kg Aleyda Dennis Other [facility] Other 01-13-2022 14:00-0500 Diastolic blood pressure 77 mm[Hg] Aleyda Dennis Other [facility] Other 01-13-2022 14:00-0500 Respiratory rate 18 /min Aleyda Dennis Other [facility] Other 01-13-2022 14:00-0500 SaO2% (BldA) [Mass fraction] 96 % Aleyda Dennis Other [facility] Other 01-13-2022 14:00-0500 Systolic blood pressure 129 mm[Hg] Aleyda Dennis Other [facility] Other 12-10-2020 11:40-0400 Body height 160.02 cm Aleyda Dennis Other [facility] Other 12-10-2020 11:40-0400 Body mass index (BMI) [Ratio] 32.98 kg/m2 Aleyda Dennis Other [facility] Other 12-10-2020 11:40-0400 Body temperature 96 [degF] Aleyda Dennis Other [facility] Other 12-10-2020 11:40-0400 Body weight 84.46 kg Aleyda Dennis Other [facility] Other 12-10-2020 11:40-0400 Diastolic blood pressure 80 mm[Hg] Aleyda Dennis Other [facility] Other 12-10-2020 11:40-0400 Respiratory rate 18 /min Aleyda Dennis Other [facility] Other 12-10-2020 11:40-0400 SaO2% (BldA) [Mass fraction] 96 % Aleyda Dennis Other [facility] Other 12-10-2020 11:40-0400 Systolic blood pressure 139 mm[Hg] Aleyda Dennis Other [facility] Other Encounters Encounter Date Encounter Type Care Provider Facility Start: 03-07-2023 End: 03-07-2023 ambulatory [facility] Start: 02-22-2023 End: 02-22-2023 ambulatory [facility] Not Available Start: 02-21-2023 (INJECTION) INJECTION [facility] Start: 02-21-2023 End: 02-21-2023 ambulatory Aleyda Dennis Other [facility] Other Start: 02-20-2023 End: 02-20-2023 ambulatory Aleyda Dennis Other [facility] Other Start: 02-20-2023 Telephone encounter Aleyda Dennis [facility] Start: 11-23-2022 End: 11-23-2022 ambulatory Aleyda Dennis Other [facility] Other Start: 11-23-2022 Telephone encounter Aleyda Dennis [facility] Start: 10-25-2022 End: 10-25-2022 ambulatory Aleyda Dennis Other [facility] Other Start: 10-25-2022 Telephone encounter Aleyda Dennis [facility] Start: 09-12-2022 End: 09-12-2022 ambulatory Aleyda Dennis Other [facility] Other Start: 09-12-2022 Telephone encounter Aleyda Dennis [facility] Start: 08-05-2022 End: 08-05-2022 ambulatory Aleyda Dennis Other [facility] Other Start: 08-05-2022 Telephone encounter Aleyda Dennis [facility] Start: 08-04-2022 End: 08-04-2022 ambulatory Aleyda Dennis Other [facility] Other Start: 08-04-2022 Office outpatient visit 25 minutes Aleyda Dennis [facility] Start: 04-25-2022 End: 04-26-[address] SUGAR PEREZ Facility:[facility] Start: 03-15-2022 End: 03-16-2022 ambulatory ALEYDA DENNIS Facility:[facility] Start: 03-08-2022 End: 03-08-2022 ambulatory Aziz Bakhous Other [facility] Other Start: 03-08-2022 Telephone encounter Aziz Bakhous [facility] Start: 01-31-2022 End: 02-01-[address] SUGAR PEREZ Facility:[facility] Start: 01-24-2022 End: 01-24-2022 ambulatory Aziz Bakhous Other [facility] Other Start: 01-24-2022 Telephone encounter Aziz Bakhous [facility] Start: 01-19-2022 End: 01-20-[address] SUGAR PEREZ Facility:[facility] Start: 01-13-2022 End: 01-13-2022 ambulatory Aleyda Dennis Other [facility] Other Start: 01-13-2022 Office outpatient visit 25 minutes Aleyda Dennis [facility] Start: 01-03-2022 End: 01-04-2022 ambulatory ALEYDA DENNIS Facility:[facility] Start: 10-26-2021 End: 10-27-[address] SUGAR PEREZ Facility:[facility] Start: 09-07-2021 End: 09-07-2021 ambulatory Aleyda Dennis Other [facility] Other Start: 09-07-2021 Telephone encounter Aleyda Dennis [facility] Start: 06-07-2021 End: 06-07-2021 ambulatory Chandler Arauz Other [facility] Other Start: 06-07-2021 Telephone encounter Chandler Arauz [facility] Start: 06-01-2021 End: 06-02-[address] SUGAR PEREZ Facility:[facility] Start: 03-09-2021 End: 03-09-2021 ambulatory Maxi Norton Other [facility] Other Start: 03-09-2021 Telephone encounter Maxi Norton [facility] Start: 01-27-2021 End: 01-27-2021 ambulatory Maxi Norton Other [facility] Other Start: 01-27-2021 Telephone encounter Essbrandon Norton [facility] Start: 12-10-2020 Office outpatient visit 25 minutes Aleyda Dennis [facility] Start: 10-26-2017 End: 10-27-2017 Patient encounter DEFAULT PHYSICIAN Facility:[facility] Start: 10-16-2017 End: 10-17-2017 Patient encounter DEFAULT PHYSICIAN Facility:[facility] Procedures Date Procedure Procedure Detail Performing Clinician Start: 03-08-2023 Colonoscopy [facility] 1 Start: 02-28-2023 Adult depression scr eening assessment [facility] 1 Plan of Treatment Date Care Activity Detail Author Start: 03-08-2033 Screening for malign ant neoplasm of colon Colonoscopy [facility] Start: 03-08-2024 Adult BMI Screening Adult BMI Screen ing [facility] Start: 03-08-2024 Tobacco Screening Tobacco Screening [facility] Start: 02-29-2024 Depression Screening Depression Scre ening [facility] Start: 02-29-2024 Fall Risk Screening Fall Risk Screen ing [facility] Start: 09-25-2018 Medicare Annual Well ness Visit Medicare Annual Wellness Visit [facility] Start: 11-28-1966 DTaP,Tdap and Td Vaccines (1 - Tdap) DTaP,Tdap and Td Vaccines (1 - Tdap) [facility] Start: 11-28-1965 Adult BMI Follow Up Plan Adult BMI Follow Up Plan [facility] Colonoscopy flx dx w/collj spec when pfrmd COLONOSCOPY DIAGNOSTIC / SCREENING Iron deficiency anemia, unspecified iron deficiency anemia type [facility] Immunizations Immunization Date Immunization Notes Care Provider Fa [facility] 06-05-2020 COVID-19, mRNA, LNP- S, PF, 100mcg/0.5mL Dose [facility] 1 [facility] 05-08-2020 COVID-19, mRNA, LNP- S, PF, 100mcg/0.5mL Dose [facility] 1 [facility] Payers Date Payer Category Payer Unknown 2012 Medicare MEDICARE MEDICAR E PART A & B [id number] 2012-Present [phone] [address] [place] [address] [id number] 1959 Medicare [id number] 1959 Unknown [id number] 1947 Unknown [id number] 1947 Unknown [id number] 1947 Unknown [id number] 1947 Unknown [id number] 1947 Unknown [id number] 1947 Unknown [id number] 1947 Unknown [id number] 1947 Unknown [id number] 1947 Unknown [id number] Social History Date Type Detail Facility Unknown if ever smoked [facility] Other Start: 04-16-2020 End: 03-08-2023 Sex Assigned At [facility] Other Start: 02-28-2023 Tobacco smoking stat [facility] Ex-smoker [facility] History of tobacco use [facility] Start: 02-28-2023 Tobacco use and exposure Smokeless tobacco non-user [facility] Start: 03-07-2023 Alcohol intake Current drinke r of alcohol (finding) [facility] Start: 04-16-2020 End: 03-08-2023 History of Social function [facility] Adolescent depressio n screening assessment 0 [facility] Start: 03-07-2023 Alcohol [facility] Start: 1945 Sex Assigned At Not on file [facility] Clinical Notes 12-10-2020 to 03-07-2023 Perioperative Nursing Note - Nani Braun RN - 03/07/2023 1:00 PM ESTPerioperative Nursing Note - Nani Braun RN - 03/07/2023 1:00 PM EST Note Date & Type Note Facility 03-07-2023 Miscellaneous Notes Preoperative Education Checklist- General Surgery date: 03/08/23 Surgery time: 1030 Arrival time: 929 1. Bring a photo ID and your insurance card with you the day of surgery. You will check in at the main lobby of the [facility]- registration desk is straight ahead as soon as you walk in. Tell them you are here for surgery. 2. If you have a Living Will/Durable Power of Housekeeping Aid for Health Care that is not on file here, please bring a copy the day of surgery. 3. Please shower/bathe the night before surgery with the provided soap or wipes. Do not shower the morning of surgery- you will do use wipes when you arrive here at the hospital before getting into your surgical gown. Do not shave the area of your procedure for 2 days prior to your surgery. 4. NO powder, lotion, perfume/cologne, aftershave, make-up, deodorant, or hair products after you have bathed. 5. NO nail central african/acrylic on at least one finger. If you are having a hand, wrist or foot surgery then all nail central african and artificial/acrylic nails must be removed from that hand or foot. 6. Avoid ALL Aspirin and non-steroidal anti-inflammatory drugs and certain vitamins (Ibuprofen, Advil, Aleve, Excedrin, Meloxicam, Celebrex, fish/krill oil, etc.) for 7 days prior to surgery as instructed by your surgeon and/or your prescribing doctor. Tylenol IS ALLOWED. If you are on Ticlid, Xarelto, Eliquis, Pradaxa, Plavix or Coumadin, please check with your prescribing doctor for instructions for when to stop them. 7. If you use an inhaler, continue to use it routinely. 8. Nothing to eat or drink (not even water, gum, mints, or hard candy!) AFTER midnight prior to your surgery. 9. Take only medications that you are instructed to on the morning of surgery with a TINY SIP OF WATER. 10. Choose a responsible adult that will be able to drive you home when you are discharged from your hospital stay for your surgery and can stay with you in your home for 24 hours after your procedure. You must NOT drive any vehicle or operate any machinery for 24 hours after surgery. 11. When you dress for your appointment, please wear loose fitting clothing that is appropriate to accommodate your surgical area procedure. BRING WITH YOU ANY DEVICES YOU MAY NEED: NELLY hose, ice machine, sling/swath, brace or special shoe, oversized zip-up or button up shirt, CPAP machine if staying overnight. 12. Do NOT wear jewelry, watches, or any piercings or metal for surgery- leave these valuables and money at home. 13. Do NOT wear contact lenses for surgery- glasses are okay if needed. 14. The anesthesiologist will talk with you the day of surgery and will ask you to sign a Consent Form. 15. Refrain from smoking or any type of tobacco use for at least 8 hours and marijuana for 24 hours prior to arrival for your surgery. 16. If a GREEN BLOOD band is given to you, please bring it with you for the day of surgery. 17. Notify your surgeon if you develop any illness before your surgery. 18. If you are staying overnight, please DO NOT BRING your home medications with you. 19. If you have any questions prior to surgery, please call the Preadmission Testing office at [phone], Mon.-Fri. 7 a.m.-3 p.m. Leave a voicemail if needed. Pre-Surgery Instructions: Medication Instructions alendronate (FOSAMAX) 70 mg tablet Stop taking 0 days prior to procedure amLODIPine (NORVASC) 10 mg tablet Stop taking 0 days prior to procedure atorvastatin (LIPITOR) 10 mg tablet Stop taking 0 days prior to procedure ergocalciferol (DRISDOL) 50,000 unit capsule Stop taking 0 days prior to procedure ergocalciferol, vitamin D2, (VITAMIN D2 ORAL) Stop taking 0 days prior to procedure ferrous sulfate 325 (65 FE) mg tablet Stop taking 0 days prior to procedure furosemide (LASIX) 40 mg tablet Stop taking 0 days prior to procedure gabapentin (NEURONTIN) 100 mg capsule Stop taking 0 days prior to procedure lisinopriL (PRINIVIL,ZESTRIL) 5 mg tablet Take morning of procedure oxyCODONE-acetaminophen (PERCOCET) 5-325 mg per tablet Stop taking 0 days prior to procedure pantoprazole (PROTONIX) 40 mg EC tablet Stop taking 0 days prior to procedure polyethylene glycol (GOLYTELY) 236-22.74-6.74 -5.86 gram solution Stop taking 0 days prior to procedure documented in this encounter [facility] [facility] 03-07-2023 Nurse Note Preoperative Education Checklist- General Surgery date: 03/08/23 Surgery time: 1030 Arrival time: 929 1. Bring a photo ID and your insurance card with you the day of surgery. You will check in at the main lobby of the [facility]- registration desk is straight ahead as soon as you walk in. Tell them you are here for surgery. 2. If you have a Living Will/Durable Power of Housekeeping Aid for Health Care that is not on file here, please bring a copy the day of surgery. 3. Please shower/bathe the night before surgery with the provided soap or wipes. Do not shower the morning of surgery- you will do use wipes when you arrive here at the hospital before getting into your surgical gown. Do not shave the area of your procedure for 2 days prior to your surgery. 4. NO powder, lotion, perfume/cologne, aftershave, make-up, deodorant, or hair products after you have bathed. 5. NO nail central african/acrylic on at least one finger. If you are having a hand, wrist or foot surgery then all nail central african and artificial/acrylic nails must be removed from that hand or foot. 6. Avoid ALL Aspirin and non-steroidal anti-inflammatory drugs and certain vitamins (Ibuprofen, Advil, Aleve, Excedrin, Meloxicam, Celebrex, fish/krill oil, etc.) for 7 days prior to surgery as instructed by your surgeon and/or your prescribing doctor. Tylenol IS ALLOWED. If you are on Ticlid, Xarelto, Eliquis, Pradaxa, Plavix or Coumadin, please check with your prescribing doctor for instructions for when to stop them. 7. If you use an inhaler, continue to use it routinely. 8. Nothing to eat or drink (not even water, gum, mints, or hard candy!) AFTER midnight prior to your surgery. 9. Take only medications that you are instructed to on the morning of surgery with a TINY SIP OF WATER. 10. Choose a responsible adult that will be able to drive you home when you are discharged from your hospital stay for your surgery and can stay with you in your home for 24 hours after your procedure. You must NOT drive any vehicle or operate any machinery for 24 hours after surgery. 11. When you dress for your appointment, please wear loose fitting clothing that is appropriate to accommodate your surgical area procedure. BRING WITH YOU ANY DEVICES YOU MAY NEED: NELLY hose, ice machine, sling/swath, brace or special shoe, oversized zip-up or button up shirt, CPAP machine if staying overnight. 12. Do NOT wear jewelry, watches, or any piercings or metal for surgery- leave these valuables and money at home. 13. Do NOT wear contact lenses for surgery- glasses are okay if needed. 14. The anesthesiologist will talk with you the day of surgery and will ask you to sign a Consent Form. 15. Refrain from smoking or any type of tobacco use for at least 8 hours and marijuana for 24 hours prior to arrival for your surgery. 16. If a GREEN BLOOD band is given to you, please bring it with you for the day of surgery. 17. Notify your surgeon if you develop any illness before your surgery. 18. If you are staying overnight, please DO NOT BRING your home medications with you. 19. If you have any questions prior to surgery, please call the [facility] office at [phone], Mon.-Fri. 7 a.m.-3 p.m. Leave a voicemail if needed. Pre-Surgery Instructions: Medication Instructions alendronate (FOSAMAX) 70 mg tablet Stop taking 0 days prior to procedure amLODIPine (NORVASC) 10 mg tablet Stop taking 0 days prior to procedure atorvastatin (LIPITOR) 10 mg tablet Stop taking 0 days prior to procedure ergocalciferol (DRISDOL) 50,000 unit capsule Stop taking 0 days prior to procedure ergocalciferol, vitamin D2, (VITAMIN D2 ORAL) Stop taking 0 days prior to procedure ferrous sulfate 325 (65 FE) mg tablet Stop taking 0 days prior to procedure furosemide (LASIX) 40 mg tablet Stop taking 0 days prior to procedure gabapentin (NEURONTIN) 100 mg capsule Stop taking 0 days prior to procedure lisinopriL (PRINIVIL,ZESTRIL) 5 mg tablet Take morning of procedure oxyCODONE-acetaminophen (PERCOCET) 5-325 mg per tablet Stop taking 0 days prior to procedure pantoprazole (PROTONIX) 40 mg EC tablet Stop taking 0 days prior to procedure polyethylene glycol (GOLYTELY) 236-22.74-6.74 -5.86 gram solution Stop taking [address] to procedure [facility] 02-21-2023 Evaluation note Encounter Date Diagnosis Assessment Notes Feb, Chronic kidney disease, stage 3 unspecified (ICD-10 - N18.30) Feb, Anemia in chronic kidney disease (ICD-10 - D63.1) [facility] Other 09-20-2023 Evaluation note* Encounter Date Diagnosis Assessment Notes Treatment Notes Treatment Clinical Notes Nov, Hypertensive chronic kidney disease with stage 1 through stage 4 chronic kidney disease, or unspecified chronic kidney disease (ICD-10 - I12.9) [facility] Other 08-22-2023 Evaluation note* Encounter Date Diagnosis Assessment Notes Treatment Notes Treatment Clinical Notes Oct, Hypertensive chronic kidney disease with stage 1 through stage 4 chronic kidney disease, or unspecified chronic kidney disease (ICD-10 - I12.9) [facility] Other 07-10-2023 Evaluation note* Encounter Date Diagnosis Assessment Notes Treatment Notes Treatment Clinical Notes Sep, Proteinuria (ICD-10 - R80.9) [facility] Other 06-01-2023 Evaluation note* Encounter Date Diagnosis Assessment Notes Treatment Notes Treatment Clinical Notes Aug, Hypertensive chronic kidney disease with stage 1 through stage 4 chronic kidney disease, or unspecified chronic kidney disease (ICD-10 - I12.9) Her blood pressure is controlled but she appears to be euvolemic. Continue current dose of Lasix and amlodipine. Aug, Chronic kidney disease, stage 3 unspecified (ICD-10 - N18.30) Her Serum Creatinine is 1.8 mg/dL above her baseline serum creatinine 1.2 mg/dl. Her renal function has declined either due to the progression of her CKD or hemodynamic changes. Other possibility is obstructive uropathy. I have ordered kidney ultrasound. I have d/w the importance of good DM and HTN control to slow down the progression of her CKD I have also ordered a repeat renal function. If she has persistently abnormal renal function then will stop lisinopril. Aug, Type 2 diabetes mellitus with diabetic chronic kidney disease (ICD-10 - E11.22) Her Blood sugars are within the acceptable range. I have advised her to continue to work with her PCP. She is currently on diet control. Continue lisinopril for renal protection but will stop if she continues to have a worsening renal function or high potassium. She did not tolerate Kerendia. Aug, Anemia in chronic kidney disease (ICD-10 - D63.1) Hb is within the goal but has adequate iron stores. She had colonoscopy and EGD in 2013 and found to have chronic gastritis . She is currently on iron supplement. I will continue it. Aug, Renal cancer (ICD-10 - C64.9) She has h/o right nephrectomy due to renal cancer. She follows with Dr. Michelle for left renal mass. She had renal US in December 2016 which showed multiple renal cyst in left kidney with no suscipious finding. Her left renal mass was not visible Aug, Proteinuria (ICD-10 - R80.9) She has proteinuria likely due to the diabetic kidney disease. Her proteinuria has declined with the lisinopril. She has unremarkable w/u for hepatitis MPGN or paraproteinemia. Continue oral lisinopril. I have advised to have Hep B vaccine with PCP. Aug, Vitamin D deficiency (ICD-10 - E55.9) Continue oral Vit D Aug, Hyperuricemia (ICD-10 - E79.0) She has hyperuricemia due to the CKD. No need for any medication for now. Aug, Hyperkalemia (ICD-10 - E87.5) She has a hyperkalemia likely due to the CKD and lisinopril. Advised a low potassium diet and provide information about it. [facility] Other 01-03-2023 Evaluation note* Encounter Date Diagnosis Assessment Notes Treatment Notes Treatment Clinical Notes Mar, Proteinuria (ICD-10 - R80.9) [facility] Other 11-10-2022 Evaluation note* Encounter Date Diagnosis Assessment Notes Treatment Notes Treatment Clinical Notes Jan, Hypertensive chronic kidney disease with stage 1 through stage 4 chronic kidney disease, or unspecified chronic kidney disease (ICD-10 - I12.9) Her blood pressure is controlled but she appears to be hypervolemic. Continue current dose of Lasix and amlodipine. I have prescribed finerenone to slow down the progression of CKD and for edema. Jan, Chronic kidney disease, stage 3 unspecified (ICD-10 - N18.30) Her Serum Creatinine is 1.2 mg/dl. I have d/w the importance of good DM and HTN control to slow down the progression of her CKD Jan, Type 2 diabetes mellitus with diabetic chronic kidney disease (ICD-10 - E11.22) Her Blood sugars are within the acceptable range. I have advised her to continue to work with her PCP. Currently she is taking Metformin. She will benefit with SGLT2 inhibitors including Farxiga, Jardiance or Invokana to slow down the progression of CKD.. I have advised her to discuss with the PCP about it. Jan, Anemia in chronic kidney disease (ICD-10 - D63.1) Hb is within the goal but has low iron stores. She had colonoscopy and EGD in 2013 and found to have chronic gastritis . She is currently on iron supplement. I will continue it. I have advised her to have a repeat colonoscopy as she is close to due for it and persistent deficiency anemia. Jan, Renal cancer (ICD-10 - C64.9) She has h/o right nephrectomy due to renal cancer. She follows with Dr. Michelle for left renal mass. She had renal US in December 2016 which showed multiple renal cyst in left kidney with no suscipious finding. Her left renal mass was not visible Jan, Proteinuria (ICD-10 - R80.9) She has proteinuria likely due to the diabetic kidney disease. Her proteinuria has declined with the lisinopril. She has unremarkable w/u for hepatitis MPGN or paraproteinemia. Continue oral lisinopril. I have advised to have Hep B vaccine with PCP. Jan, Vitamin D deficiency (ICD-10 - E55.9) Continue oral Vit D Jan, Hyperuricemia (ICD-10 - E79.0) She has hyperuricemia due to the CKD. No need for any medication for now. [facility] Other 07-05-2022 Evaluation note* Encounter Date Diagnosis Assessment Notes Treatment Notes Treatment Clinical Notes Sep, Hypertensive chronic kidney disease with stage 1 through stage 4 chronic kidney disease, or unspecified chronic kidney disease (ICD-10 - I12.9) [facility] Other 04-04-2022 Evaluation note* Encounter Date Diagnosis Assessment Notes Treatment Notes Treatment Clinical Notes Jun, Proteinuria (ICD-10 - R80.9) [facility] Other 01-04-2022 Evaluation note* Encounter Date Diagnosis Assessment Notes Treatment Notes Treatment Clinical Notes Mar, Hypertensive chronic kidney disease with stage 1 through stage 4 chronic kidney disease, or unspecified chronic kidney disease (ICD-10 - I12.9) [facility] Other 11-24-2021 Evaluation note* Encounter Date Diagnosis Assessment Notes Treatment Notes Treatment Clinical Notes Jan, Hypertensive chronic kidney disease with stage 1 through stage 4 chronic kidney disease, or unspecified chronic kidney disease (ICD-10 - I12.9) [facility] Other 10-07-2021 Evaluation note* Encounter Date Diagnosis Assessment Notes Treatment Notes Treatment Clinical Notes Dec, Hypertensive chronic kidney disease with stage 1 through stage 4 chronic kidney disease, or unspecified chronic kidney disease (ICD-10 - I12.9) Blood pressure is controlled and has no edema. Continue Amlodipine 10 mg daily. Continue Lasix Dec, Proteinuria (ICD-10 - R80.9) She has proteinuria likely due to the diabetic kidney disease. Other differential diagnoses are hepatitis MPGN or paraproteinemia. I have ordered a work-up to rule out this differential diagnoses. I have prescribed oral lisinopril. Dec, Chronic kidney disease, stage 3 unspecified (ICD-10 - N18.30) Her baseline serum Creatinine is 1 mg/dl. I have d/w the importance of good DM and HTN control to slow down the progression of her CKD Dec, Anemia in chronic kidney disease (ICD-10 - D63.1) Hb is within the goal but has low iron stores. She had colonoscopy and EGD in 2013 and found to have chronic gastritis . She is currently on iron supplement. I will continue it. Dec, Type 2 diabetes mellitus with diabetic chronic kidney disease (ICD-10 - E11.22) Her Blood sugars are within the acceptable range. I have advised her to continue to work with her PCP. She has no evidence of proteinuria. She was taken off the lisinopril due to worsening renal function in the past. Currently she is taking Metformin Dec, Renal cancer (ICD-10 - C64.9) She has h/o right nephrectomy due to renal cancer. She follows with Dr. Michelle for left renal mass. She had renal US in December 2016 which showed multiple renal cyst in left kidney with no suscipious finding. Her left renal mass was not visible Dec, Vitamin D deficiency (ICD-10 - E55.9) Continue oral Vit D [facility] Other Evaluation noteNo InformationNort [employer] Other [facility] Narrative - Reported* Type Description Date Medical History diabetes mallitus Medical History hypertension Medical History CHRONIC ANEMIA Medical History PERIPHERAL NEUROPATHY Medical History HYPERLIPIDEMIA Surgical History RUPTURE FIXED IN STOMACH 2004 Surgical History KIDNEY AND GALLBLADDER REMOVED 2003 Surgical History RIGHT SHOULDER SURGERY 2002 Surgical History NECK FUSION 2000 Surgical History partial thyroidectomy 1997 Surgical History LAST OVARY REMOVED 1993 Surgical History LOWER BA CK SURGERY Surgical History OVARY, TUBUBES & APPENDIX 1979 Surgical History UTERUS REMOVED 1974 Surgical History vein ligation 2018 Hospitalization History SEE ABOVE [facility] Other [facility] general Narrative - Reported* Type Description Date Medical History diabetes mallitus Medical History hypertension Medical History CHRONIC ANEMIA Medical History PERIPHERAL NEUROPATHY Medical History HYPERLIPIDEMIA Surgical History RUPTURE FIXED IN STOMACH 2004 Surgical History KIDNEY AND GALLBLADDER REMOVED 2003 Surgical History RIGHT SHOULDER SURGERY 2003 Surgical History NECK FUSION 2000 Surgical History partial thyroidectomy 1997 Surgical History LAST OVARY REMOVED 1993 Surgical History LOWER BA CK SURGERY Surgical History OVARY, TUBUBES & APPENDIX 1979 Surgical History UTERUS REMOVED 1974 Surgical History vein ligation 2018 Hospitalization History SEE ABOVE Hospitalization History ACUTE KIDNEY INJ URY, CHF, ACUTE METABOLIC ENCEPHALOPATHY, COMPLICATED URINARY TRACT INFECTION 11/21/2022 [facility] Other InstructionsNot on filedocumented in this encounter [facility] [place] Summary Purpose Family History No Family History Records FoundNo Family History Records FoundNo Family History Records FoundNo Family History Records FoundNo Family History Records Found Advance Directives No Advanced Directives Records FoundNo Advanced Directives Records FoundNo Advanced Directives Records FoundNo Advanced Directives Records FoundNo Advanced Directives Records Found Additional Source Comments INFORMATION SOURCE (unrecogn ized section and content) DATE CREATED AUTHOR 10/28/2017 [facility] DATE CREATED AUTHOR AUTHOR'S ORGANIZ ATION 07/21/2019 [facility] DATE CREATED AUTHOR AUTHOR'S ORGANIZ ATION 04/29/2022 [facility] DATE CREATED AUTHOR AUTHOR'S ORGANIZ ATION 02/23/2023 [facility] EPIC DATE CREATED AUTHOR AUTHOR'S ORGANIZ ATION 03/09/2023 [facility] REASON FOR VISIT (unrecogniz ed section and content) CKDREFILLREFILLREFILLClinica lCKDREFILLREFILLCKD and HTNNo InformationREFILLREFILLREFILLNo InformationRENAL 3 WK INJ / PROCRIT / NURSE FOR RECORDS PERTAINING TO PATIENTS WHO ARE OR HAVE BEEN ENROLLED IN A CHEMICAL DEPENDENCY/SUBSTANCEABUSE PROGRAM, SOME INFORMATION MAY BE OMITTED. This clinical summary was aggregated from multiple sources. Caution should be exercised in using it in the provision of clinical care. This summary normalizes information from multiple sources, and as a consequence, information in this document may materially change the coding, format and clinical context of patient data. In addition, data may be omitted in some cases. CLINICAL DECISIONS SHOULD BE BASED ON THE PRIMARY CLINICAL RECORDS. [employer]. provides no warranty or guarantee of the accuracy or completeness of information in this document.
[2023-03-09 12:28] LABS: Hematocrit 34.9 % (36.0-48.0); Hemoglobin 10.6 g/dL (12.0-16.0); Mean Corpuscular HGB Conc 30.4 g/dL (29.9-35.2); Mean Corpuscular Hemoglobin 29.4 pg (26.7-34.0); Mean Corpuscular Volume 96.9 fL (81.0-99.0); Mean Platelet Volume 10.2 fL (9.5-13.5); Platelet Count 208 10^3/uL (150-450); Red Cell Distribution Width 14.5 % (11.0-15.0); White Blood Count 5.9 10^3/uL (4.0-11.0)
[2023-03-09 12:29] LABS: Albumin Level 4.3 g/dL (3.4-5.0); Anion Gap 13.1; BUN Creatinine Ratio 20.1; Calcium 9.6 mg/dL (8.5-10.1); Carbon Dioxide 26.5 mmol/L (21.0-32.0); Chloride 104 mmol/L (98-107); Estimated GFR (African America 45 (>=60); Estimated GFR (Non-African Ame 37 (>=60); Glucose 95 mg/dL (74-106); Magnesium 2.1 mg/dL (1.8-2.4); Potassium 4.6 mmol/L (3.5-5.1); Sodium 139 mmol/L (136-145)
== END 2023-03-09 11:57 | disposition home or self-care (01) ==
LOC: LAB 11:59
PROVIDERS: PCP Family Medicine; Visit Provider Internal Medicine
DX: N18.30 Chronic kidney disease, stage 3 unspecified (principal); D63.1 Anemia in chronic kidney disease
CPT/HCPCS: 36415; 80069; 83735; 85027

== ENCOUNTER 2023-07-06 11:41 | Outpatient (OUT) | payer MEDICARE, OTHER, SELFPAY ==
[2023-07-06 12:08] LABS: Hemoglobin 9.5 g/dL (12.0-16.0); Mean Corpuscular HGB Conc 31.7 g/dL (29.9-35.2); Mean Corpuscular Hemoglobin 30.3 pg (26.7-34.0); Mean Corpuscular Volume 95.5 fL (81.0-99.0); Mean Platelet Volume 10.3 fL (9.5-13.5); Platelet Count 241 10^3/uL (150-450); Red Blood Count 3.14 10^6/uL (4.20-5.40); Red Cell Distribution Width 13.2 % (11.0-15.0); White Blood Count 6.4 10^3/uL (4.0-11.0)
[2023-07-06 12:26] LABS: Albumin Level 4.3 g/dL (3.4-5.0); Anion Gap 14.4; BUN Creatinine Ratio 16.8; Calcium 9.5 mg/dL (8.5-10.1); Carbon Dioxide 25.2 mmol/L (21.0-32.0); Chloride 105 mmol/L (98-107); Estimated GFR (African America 41 (>=60); Estimated GFR (Non-African Ame 34 (>=60); Glucose 107 mg/dL (74-106); Magnesium 2.1 mg/dL (1.8-2.4); Potassium 5.6 mmol/L (3.5-5.1); Sodium 139 mmol/L (136-145); Uric Acid 6.9 mg/dL (2.6-6.0)
[2023-07-06 12:29] LABS: Creatinine Urine Random 65.39 mg/dL (20.00-300.00); Total Protein Urine Random 6.8 mg/dL (<=11.9)
[2023-07-06 12:31] LABS: Percent Iron Saturation 26.8 %
[2023-07-07 14:09] LABS: PTH, Intact 81 pg/mL (15-65)
== END 2023-07-06 11:42 | disposition home or self-care (01) ==
LOC: LAB 11:43
PROVIDERS: PCP Family Medicine; Visit Provider Internal Medicine
DX: I12.9 Hypertensive chronic kidney disease with stage 1 through stage 4 chronic kidney disease, or unspecified chronic kidney disease (principal); N18.30 Chronic kidney disease, stage 3 unspecified; E11.22 Type 2 diabetes mellitus with diabetic chronic kidney disease; D63.1 Anemia in chronic kidney disease; C64.9 Malignant neoplasm of unspecified kidney, except renal pelvis; R80.9 Proteinuria, unspecified; E55.9 Vitamin D deficiency, unspecified; E79.0 Hyperuricemia without signs of inflammatory arthritis and tophaceous disease; E87.5 Hyperkalemia
CPT/HCPCS: 36415; 80069; 82306; 82570; 82728; 83540; 83550; 83735; 83970; 84156; 84550; 85027

== ENCOUNTER 2023-08-14 10:29 | Outpatient (OUT) | payer MEDICARE, OTHER, SELFPAY ==
--- OUTSIDE RECORDS SUMMARY | 2023-08-14 10:47 | XMS_ITS | CCD ---
Author Organization [facility] ion [facility] Care Team Providers Care Safety Trainer Name Role Phone PHYSICIAN, DEFAULT Unavailable Unavailable PHYSICIAN, DEFAULT Unavailable Unavailable PHYSICIAN, DEFAULT Unavailable Unavailable PHYSICIAN, DEFAULT Unavailable Unavailable Dennis, Aleyda Unavailable Maxi Norton Unavailable Chandler Arauz Unavailable CHRIS, DR MISAEL Acuna Consulting Unavailable NADERER, DR MISAEL Acuna Attending Unavailable NADERER, DR MISAEL Acuna Admitting Unavailable NADERER, DR MISAEL Acuna Primary Care Unavailable DENNIS, ALEYDA Admitting Unavailable DENNIS, ALEYDA Consulting Unavailable DENNIS, ALEYDA Attending Unavailable NADERER, DR MISAEL Acuna Primary Care Unavailable NADERER, DR MISAEL Acuna Primary Care Unavailable DENNIS, ALEYDA Admitting Unavailable DENNIS, ALEYDA Consulting Unavailable DENNIS, ALEYDA Attending Unavailable NADERER, DR MISAEL Acuna Primary Care Unavailable DENNIS, ALEYDA Admitting Unavailable DENNIS, ALEYDA Consulting Unavailable DENNIS, ALEYDA Attending Unavailable DENNIS, ALEYDA Attending Unavailable NADERER, DR MISAEL Acuna Primary Care Unavailable DENNIS, ALEYDA Admitting Unavailable DENNIS, ALEYDA Consulting Unavailable NADERER, DR MISAEL Acuna Primary Care Unavailable NADERER, DR MISAEL Acuna Consulting Unavailable NADERER, DR MISAEL Acuna Attending Unavailable NADERER, DR MISAEL Acuna Admitting Unavailable NADERER, DR MISAEL Acuna Primary Care Unavailable DENNIS, ALEYDA Admitting Unavailable DENNIS, ALEYDA Consulting Unavailable DENNIS, ALEYDA Attending Unavailable Unavailable Primary Care Provider Misael Marin MD Primary Care Provider FELIPE SCHAEFER Referring Unavailable MISAEL PEREZ Primary Care Unavailable OLIVE, FELIPE Acuna Referring Unavailable NADERER, MISAEL Primary Care Unavailable YURIVAS, MICHAELA Leone Referring Unavailable OLIVE, FELIPE Acuna Referring Unavailable NADERER, MISAEL Primary Care Unavailable OLIVE, FELIPE Acuna Referring Unavailable NADERER, MISAEL Primary Care Unavailable OLIVE, FELIPE Acuna Admitting Unavailable OLIVE, FELIPE Acuna Attending Unavailable OLIVE, FELIPE Acuna Referring Unavailable NADERER, MISAEL Primary Care Unavailable NANCY MACHADO Consulting Unavailable YUHAS, MICHAELA Leone Admitting Unavailable YUHAS, MICHAELA Leone Attending Unavailable YUHAS, MICHAELA Leone Primary Care Unavailable YUHAS, MICHAELA Leone Attending Unavailable YUKOFIS, MICHAELA Leone Referring Unavailable NADERER, MISAEL Referring Unavailable NADERER, MISAEL Primary Care Unavailable HERMAN JORGE Attending Unavailable NADERER, MISAEL Primary Care Unavailable APLING, LEO Ayala Attending Unavailable APLING, LEO Ayala Referring Unavailable OLIVE, FELIPE Acuna Attending Unavailable YULY VALDERRAMA Attending Unavailable BLOOMING GROVE, FELIPE Acuna Referring Unavailable NADERER, MISAEL Attending Unavailable BLOOMING GROVE, FELIPE Acuna Attending Unavailable APLING, LEO Ayala Attending Unavailable OLIVE, FELIPE Acuna Referring Unavailable NADERER, MISAEL Attending Unavailable SHAIKH BAILEY Attending Unavailable BLOOMING GROVE, FELIPE Acuna Attending Unavailable BELEN PATRICK Attending Unavailable BLOOMING GROVE, FELIPE Acuna Referring Unavailable JL PEPE Attending Unavailable BLOOMING GROVE, FELIPE Acuna Referring Unavailable Allergies Allergy Classification Reported Allergen(s) Allergy Type Date of Onset Reaction(s) Facility (20 sources) Latex; Translations: [LATEX] Propensity to adverse reactions 7 rash [facility] (1 source) DULoxetine Drug Allergy [facility] (1 source) Ketorolac Drug Allergy [facility] (1 source) natural latex rubber Drug allergy (disorder) [facility] (2 sources) NSAIDs; Translations: [NSAIDS (NON-STEROIDAL ANTI-INFLAMMATO RY DRUG)] Drug allergy (disorder) 9 [facility] (3 sources) Ketorolac; Translations: [KETOROLAC] Drug Allergy 9 [facility] Non-steroidal anti-inflammato ry agent Propensity to adverse reactions to drug 9 Swelling, Rash, [facility] ([facility]) Latex Allergy to substance 3 Unknown [facility] Work Phone: (4 sources) Ketorolac Propensity to adverse reactions 9 Rash [facility] (4 sources) Non-steroidal anti-inflammato ry agent Drug Intolerance 9 Swelling, Rash [facility] Medications Current Medications Medication Drug Class(es) Dates Sig (Normalized) Sig (Original) acetaminophen 325 mg / oxyCODONE hydrochloride 10 mg oral tablet (20 sources) Opioid Agonist Start: 07-13-2023 take 1 tablet by mouth every six hours Oxycodone-Acetami nophen Active 1 TAB PO Every 6 hours July 13, 2023 12:00am Start: 03-22-2023 take 1 tablet by bi th four times daily as needed for pain oxyCODONE-acetaminophen (Percocet) 5-325 MG tablet Indications: DDD (degenerative disc disease), cervical Take 1 tablet by mouth 4 (four) times a day as needed for severe pain 120 tablet 0 03/22/2023 Active Percocet 5-325 M G 1 tablet as needed Orally every 4- 6 hrs Active take 1 tablet by bi th every four hours as needed for pain oxyCODONE-acetaminophen (PERCOCET) 5-325 mg per tablet Take 1 tablet by mouth every 4 (four) hours as needed for pain. Patient takes 1/2 tab bid 0 Active alendronic acid 70 mg oral tablet (20 sources) Bisphosphonate Start: 07-13-2023 take 70 mg by mouth every week Alendronate Active 70 MG PO every week July 13, 2023 12:00am Start: 08-24-2017 alendronate (F OSAMAX) 70 mg tablet Take 1 tablet (70 mg total) by mouth every 7 days. 12 tablet 1 08/24/2017 Active take 1 tablet by bi th every week alendronate (Fosamax) 70 MG tablet 1 tablet Orally once a week 0 Active amLODIPine 10 mg oral tablet (20 sources) Dihydropyridine Calcium Channel Raquel Start: 05-09-2023 take 1 tablet by mouth once daily Amlodipine Active 0 .ROUTE .COMPLEX 90 May 09, 2023 5:04pm TAKE 1 TABLET BY MOUTH DAILY Start: 04-24-2023 End: 05-09-2023 take 10 mg by mouth once daily Amlodipine Discontinued 10 MG PO Daily 90 April 24, 2023 1:00am May 09, 2023 5:04pm Start: 12-28-2016 take 1 tablet by bi th once daily amLODIPine (NORVASC) 10 mg tablet Take 1 tablet (10 mg total) by mouth respiratory nightly. 0 12/28/2016 Active atorvastatin 10 mg oral tablet (20 sources) HMG-CoA Reductase Inhibitor Start: 04-06-2023 End: 04-05-2024 take 10 mg by mouth once daily Atorvastatin Active 10 MG PO Daily July 13, 2023 12:00am Start: 10-12-2018 take 1 tablet by bi th once daily atorvastatin (LIPITOR) 10 mg tablet Indications: Mixed hyperlipidemia TAKE ONE TABLET BY MOUTH DAILY 90 tablet 10 10/12/2018 Active cholecalciferol 0.05 mg oral capsule (12 sources) Vitamin D Start: 07-13-2023 take 2000 [IU] by mouth once daily Cholecalciferol (Vitamin D3) Active 2000 UNIT PO Daily July 13, 2023 12:00am cholecalciferol (Vitamin D-3) 50 MCG (2000 UT) capsule 1 capsule 1 (one) time each day at the same time. 0 Active clonazePAM 0.5 mg oral tablet (7 sources) Benzodiazepine take 1 tablet by mouth at bedtime clonazePAM (KlonoPIN) 0.5 MG tablet 1 tablet at bedtime Orally 1-2 times per day 0 Active CoQ-10 400 MG (13 sources) take 1 capsule by mouth once daily CoQ-10 400 MG 1 capsule with a meal Orally Once a day for 30 day(s) Active epoetin anjana 60041 unt/ml injectable solution (1 source) Erythropoiesis-stimulat ing Agent Procrit 83345 UNIT/ML as directed Injection once a month Active ferrous sulfate 325 mg oral tablet (20 sources) Start: take 325 mg by mouth once daily Ferrous Sulfate Active 325 MG PO Daily July 13, 2023 12:00am ferrous sulfate 325 (65 Fe) MG tablet 1 (one) time each day at the same time. 0 Active take 1 tablet by mouth once walt y Ferrous Sulfate 325 (65 Fe) MG 1 tablet Orally Once a day for 90 day(s) Active furosemide 40 mg oral tablet (20 sources) Loop Diuretic Start: 07-13-2023 take 1 tablet by mouth once daily Furosemide (Lasix) 40 mg tablet Active 40 MG PO Daily July 13, 2023 12:00am Start: 01-02-2023 furosemide (La six) 40 MG tablet take 1 tablet by bi th every twenty-four hours Lasix 20 MG 1 tablet Orally Once a day for 90 day(s) Active gabapentin 100 mg oral capsule (20 sources) Anti-epileptic Agent Start: 02-21-2023 End: 05-22-2023 take 1 capsule by mouth every eight hours gabapentin (Neurontin) 100 MG capsule Indications: Paresthesia of both feet Take 1 capsule (100 mg) by mouth every 8 (eight) hours 90 capsule 2 02/21/2023 05/22/2023 Active take [address] [facility] every eight hours Gabapentin 100 MG 1 capsule Orally THREE TIMES A DAY Active glucosamine sulfate 500 mg oral tablet (18 sources) Start: 07-13-2023 take 500 mg by mouth once daily Glucosamine Sulfate Active 500 MG PO Daily July 13, 2023 12:00am take 1 tablet by bi every twenty-four hours Glucosamine 500 mg 1 tablet Orally Daily Active lisinopril 5 mg oral tablet (20 sources) Angiotensin Converting Enzyme Inhibitor Start: 07-13-2023 take 5 mg by mouth once daily Lisinopril Active 5 MG PO Daily July 13, 2023 12:00am Start: 12-10-2020 take 1 tablet by bi every twenty-four hours Lisinopril 5 MG 1 [...] DAY Active take 1 tablet by bi th three times daily as needed Trileptal 150 MG 1 Tablet Orally THREE TIMES A DAY,As needed Active pantoprazole 40 mg delayed release oral tablet (20 sources) Proton Pump Inhibitor Start: 07-13-2023 take 1 tablet by mouth once daily Pantoprazole (Protonix) 40 mg tablet,delayed release (DR/EC) Active 40 MG PO Daily July 13, 2023 12:00am pantoprazole (Pr otonix) 40 MG EC tablet 1 (one) time each day at the same time. 0 Active traMADol hydrochloride 50 mg oral tablet (3 sources) Opioid Agonist End: 04-10-2023 traMADol (Ultram) 50 MG tablet every 6 (six) hours. 0 04/10/2023 Discontinued (Med list cleanup) ubidecarenone 400 mg oral capsule (5 sources) Start: 07-13-2023 Coenzyme Q10 A ctive 400 MG PO Daily July 13, 2023 12:00am take [address] [facility] every twenty-four hours CoQ-10 400 MG 1 capsule with a meal Orally Once a day for 30 day(s) Active Vitamin D (Cholecalciferol) 50 MCG (1999) (13 sources) take 1 capsule by mouth once daily Vitamin D (Cholecalciferol) 50 MCG (1999) 1 capsule Orally Once a day Active [...] Start: 01-13-2022 take 1 tablet by bi once daily Finerenone 10 MG 1 tablet Orally Once a day for 90 day(s) Jan, Active LORazepam 0.5 mg oral tablet (4 sources) Benzodiazepine Start: 04-10-2023 End: 04-11-2023 LORazepam (Ativan) 0.5 MG tablet Indications: Arthritis of right knee , Internal derangement of right knee Take 1 tablet (0.5 mg) by mouth See administration instructions for 1 dose 1 by mouth 1 hour prior to MRI 1 tablet 0 04/10/2023 04/11/2023 Discontinued (Therapy completed) polyethylene glycol 3350 [id number] mg / potassium chloride 2970 mg / sodium bicarbonate 6740 mg / sodium chloride 5860 mg / sodium sulfate 81053 mg powder for oral solution (1 source) Osmotic Laxative Start: 02-28-2023 End: 03-08-2023 polyethylene glycol (GOLYTELY) 236-22.74-6.74 -5.86 gram solution Indications: Iron deficiency anemia, unspecified iron deficiency anemia type , Stage 3 chronic kidney disease, unspecified whether stage 3a or 3b CKD ([facility]) Take 240 mL by mouth every 1 (one) hour. 4000 mL 0 02/28/2023 03/08/2023 Discontinued (Therapy completed) PROCRIT INJECTION - 1000 units (11 sources) Start: 02-21-2023 PROCRIT INJECT ION - 1000 units Feb, 1000 mL Start: 02-01-2023 PROCRIT INJECT ION - 1000 units Jan, 1000 mL Start: 2022 PROCRIT INJECT ION - 1000 units Nov, 1000 units Problems Active Problems Problem Classification Problem Date Documented Date Episodic/Chronic Anxiety disorders (2 sources) Generalized anxiety disorder; Translations: [Generalized anxiety disorder] Onset: 4 04-18-2023 Chronic Cancer of kidney and renal pelvis (20 sources) Malignant tumor of kidney; Translations: [Malignant neoplasm of unspecified kidney, except renal pelvis] Onset: 1 Resolved: 1 Chronic Cancer of kidney and renal pelvis (7 sources) History of malignant neoplasm of kidney; Translations: [Personal history of other malignant neoplasm of kidney] Episodic Cardiac dysrhythmias (2 sources) Unspecified atrial fibrillation; Translations: [Paroxysmal atrial fibrillation] Onset: 4 Chronic Chronic kidney disease (20 sources) Chronic kidney disease stage 2; Translations: [Chronic kidney disease, stage 2 (mild)] Onset: 4 04-18-2023 Chronic Deficiency and other anemia (17 sources) Anemia in chronic kidney disease; Translations: [Anemia in chronic kidney disease] Chronic Deficiency and other anemia (6 sources) Anemia in chronic kidney disease; Translations: [Anemia in chronic kidney disease D63.1] Onset: 1 Resolved: 1 Chronic Deficiency and other anemia (5 sources) Iron deficiency anemia; Translations: [Iron deficiency anemia, unspecified] Onset: 3 02-28-2023 Episodic Diabetes mellitus with complications (20 sources) Type II diabetes mellitus uncontrolled; Translations: [Diabetes Type II or unspecified type, uncontrolled w/o mention of complication] Onset: 1 Resolved: 1 Chronic Diabetes mellitus without complication (5 sources) Type 2 diabetes mellitus without complications; Translations: [TYPE 2 DM WITHOUT COMPLICATIONS] Onset: 3 Chronic Disorders of lipid metabolism (9 sources) Hyperlipidemia, unspecified; Translations: [Hypercholesterolemia] Onset: 2 04-11-2023 Chronic Essential hypertension (20 sources) Hypertensive disorder; Translations: [Hypertension, unspecified] Onset: 2 04-18-2023 Chronic Fluid and electrolyte disorders (4 sources) Hyperkalemia; Translations: [Hyperkalemia] Episodic Gastritis and duodenitis (7 sources) Atrophic gastritis; Translations: [Chronic atrophic 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] Onset: 4 03-08-2023 Chronic Genitourinary symptoms and ill-defined conditions (14 sources) Proteinuria, unspecified; Translations: [Proteinuria] Onset: 1 Resolved: 2 Episodic Heart valve disorders (4 sources) Non-rheumatic mitral regurgitation ; Translations: [Nonrheumatic mitral (valve) insufficiency] Onset: 4 Resolved: 4 04-18-2023 Chronic Hypertension with complications and secondary hypertension (20 sources) Chronic kidney disease due to hypertension; Translations: [Hypertensive chronic kidney disease with stage 1 through stage 4 chronic kidney disease, or unspecified chronic kidney disease] Onset: 1 Resolved: 2 Chronic Joint disorders and dislocations; trauma-related (2 sources) Derangement of right knee; Translations: [Unspecified internal derangement of right knee] 04-10-2023 Chronic Joint disorders and dislocations; trauma-related (4 sources) Acute meniscal tear, medial; Translations: [Complex tear of medial meniscus, current injury, right knee, initial encounter] 04-18-2023 Episodic Mood disorders (2 sources) Recurrent major depressive episodes, mild ; Translations: [Major depressive disorder, recurrent, mild] Onset: 4 04-18-2023 Chronic Nutritional deficiencies (20 sources) Vitamin D deficiency; Translations: [Vitamin D deficiency, unspecified] Onset: 1 Resolved: 1 Chronic Osteoarthritis (19 sources) Osteoarthritis of knee; Translations: [Osteoarthritis of knee, unspecified] Onset: 3 08-12-2022 Chronic Other aftercare (1 source) Patient encounter status; Translations: [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] 04-18-2023 Episodic Other and unspecified benign neoplasm (5 sources) Polyp of sigmoid colon; Translations: [Polyp of colon] Onset: 4 03-08-2023 Episodic Other diseases of kidney and ureters (17 sources) Secondary hyperparathyroidism; Translations: [Secondary hyperparathyroidism of renal origin] Chronic Other non-traumatic joint disorders (4 sources) Pain in right knee; Translations: [Pain in joint, lower leg] 04-07-2023 Episodic Other nutritional; endocrine; and metabolic disorders (2 sources) Obesity, unspecified; Translations: [OBESITY UNSPECIFIED] Onset: 2 Chronic Other nutritional; endocrine; and metabolic disorders (3 sources) Body mass index 30+ - obesity; Translations: [Obesity, unspecified] Onset: 4 04-18-2023 Chronic Other nutritional; endocrine; and metabolic disorders (5 sources) Hyperuricemia without signs of inflammatory arthritis and tophaceous disease; Translations: [Other abnormal blood chemistry] Onset: 2 Episodic Other nutritional; endocrine; and metabolic disorders (1 source) Hyperuricemia; Translations: [Hyperuricemia without signs of inflammatory arthritis and tophaceous disease] 07-13-2023 Episodic Residual codes; unclassified (2 sources) Bilateral lower limb edema; Translations: [Localized edema] Onset: 4 04-18-2023 Episodic Spondylosis; intervertebral disc disorders; other back problems (2 sources) Degeneration of cervical intervertebral disc; Translations: [Other cervical disc degeneration, unspecified cervical region] Onset: 4 04-18-2023 Chronic Unclassified (4 sources) CHRN KIDNEY DISEASE STG 3 UNSP; Translations: [CHRN KIDNEY DISEASE STG 3 UNSP] Onset: 2 Unclassified (1 source) right knee degenerative joint disease Onset: 4 Varicose veins of lower extremity (2 sources) Varicose veins of lower extremity; Translations: [Varicose veins of bilateral lower extremities with pain] Onset: 4 04-18-2023 Episodic Past or Other Problems Problem Classification Problem Date Documented Da te Episodic/Chronic Chronic kidney disease (10 sources) Chronic kidney disease; Translations: [Chronic kidney disease, stage 3 unspecified] Onset: 12-10-2020 Resolved: 12-10-2020 Deficiency and other anemia (1 source) Iron deficiency anemia, unspecified; Translations: [Iron deficiency anemia, unspecified] Onset: 02-28-2023 Episodic Mood disorders (1 source) Mood disorders Onset: 02-28-2023 02-28-2023 Other aftercare (2 sources) 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; Translations: [OTH CARE HOME CURRENT DRUG THERAPY] Onset: 11-01-2021 Episodic Other connective tissue disease (4 sources) History of cervical spine fusion; Translations: [Arthrodesis status] Onset: 08-26-2013 04-11-2023 Episodic Spondylosis; intervertebral disc disorders; other back problems (4 sources) Neck pain; Translations: [Cervicalgia] Onset: 08-26-2013 04-11-2023 Episodic Unclassified (1 source) CHRN KIDNEY DISEASE STG 3 UNSP; Translations: [CHRN KIDNEY DISEASE STG 3 UNSP] Onset: 03-15-2022 Results Test Name Value Interpretation Reference Range Facility BASIC METABOLIC PANLon 07-19 Anion gap [Moles/Vol] 10 mmol/L Normal 5-15 [facility] Comment on above: Performed By: #### C BCA, BMP, LIVR, 58298-3, 3016-3, 19025-3 #### [facility] ([id number]) [address], [address] [place] [address] Calcium [Mass/Vol] 9.3 mg/dL Normal 8.5-10.5 [facility] Comment on above: Performed By: #### C BCA, BMP, LIVR, 13439-8, 3016-3, 62807-1 #### [facility] ([id number]) [address], [address] [place] [address] Chloride [Moles/Vol] 107 mmol/L Normal 98-109 [facility] Comment on above: Performed By: #### C BCA, BMP, LIVR, 49872-7, 3016-3, 33553-9 #### [facility] ([id number]) [address], [address] [place] [address] CO2 [Moles/Vol] 22 mmol/L Normal 22-32 [facility] Comment on above: Performed By: #### C BCA, BMP, LIVR, 14453-5, 3016-3, 29314-2 #### [facility] ([id number]) [address], [address] [place] [address] Creatinine [Mass/Vol] 1.38 mg/dL High 0.40-1.00 [facility] Comment on above: Result Comment: METH OD TRACEABLE TO IDMS STANDARD Performed By: #### C BCA, BMP, LIVR, 23944-8, 3016-3, 37012-8 #### [facility] ([id number]) [address], [address] [place] [address] GFR/1.73 sq M.predicted among non-blacks MDRD (S/P/Bld) [Vol rate/Area] 40 mL/min/{1.73_m2} Low >59 [facility] Comment on above: Result Comment: Reported eGFR is based on the CKD-EPI 2020 equation that does not use a race coefficient. Performed By: #### C BCA, BMP, LIVR, 41162-6, 3016-3, 61786-8 #### [facility] ([id number]) [address], [address] [place] [address] Glucose [Mass/Vol] 144 mg/dL High 65-99 [facility] Comment on above: Performed By: #### C BCA, BMP, LIVR, 00721-2, 3016-3, 67578-4 #### [facility] ([id number]) [address], [address] [place] [address] Potassium [Moles/Vol] 5.3 mmol/L High 3.5-5.0 [facility] Comment on above: Performed By: #### C BCA, BMP, LIVR, 08808-5, 3016-3, 13903-4 #### [facility] ([id number]) [address], [address] [place] [address] Sodium [Moles/Vol] 139 mmol/L Normal 134-146 [facility] Comment on above: Performed By: #### C BCA, BMP, LIVR, 73215-1, 3016-3, 02673-2 #### [facility] ([id number]) [address], [address] [place] [address] Urea nitrogen [Mass/Vol] 22 mg/dL Normal 5-27 [facility] Comment on above: Performed By: #### C BCA, BMP, LIVR, 54807-7, 3016-3, 04389-5 #### [facility] ([id number]) [address], [address] [place] [address] BASIC METABOLIC PANLon 07-18 Anion gap [Moles/Vol] 10 mmol/L Normal 5-15 [facility] Comment on above: Performed By: #### C BCA, BMP, LIVR, 37952-9, 3016-3, 97610-4 #### [facility] ([id number]) [address], [address] [place] [address] Calcium [Mass/Vol] 9.0 mg/dL Normal 8.5-10.5 [facility] Comment on above: Performed By: #### C BCA, BMP, LIVR, 61001-4, 3016-3, 79087-7 #### [facility] ([id number]) [address], [address] [place] [address] Chloride [Moles/Vol] 108 mmol/L Normal 98-109 [facility] Comment on above: Performed By: #### C BCA, BMP, LIVR, 26942-4, 3016-3, 99212-0 #### [facility] ([id number]) [address], [address] [place] [address] CO2 [Moles/Vol] 23 mmol/L Normal 22-32 [facility] Comment on above: Performed By: #### C BCA, BMP, LIVR, 83068-6, 3016-3, 86845-1 #### [facility] ([id number]) [address], [address] [place] [address] Creatinine [Mass/Vol] 1.60 mg/dL High 0.40-1.00 [facility] Comment on above: Result Comment: METH OD TRACEABLE TO IDMS STANDARD Performed By: #### C BCA, BMP, LIVR, 02638-4, 3016-3, 72535-3 #### [facility] ([id number]) [address], [address] [place] [address] GFR/1.73 sq M.predicted among non-blacks MDRD (S/P/Bld) [Vol rate/Area] 33 mL/min/{1.73_m2} Low >59 [facility] Comment on above: Result Comment: Reported eGFR is based on the CKD-EPI 2020 equation that does not use a race coefficient. Performed By: #### C BCA, BMP, LIVR, 07420-1, 3016-3, 25039-2 #### [facility] ([id number]) [address], [address] [place] [address] Glucose [Mass/Vol] 135 mg/dL High 65-99 [facility] Comment on above: Performed By: #### C BCA, BMP, LIVR, 93423-3, 3016-3, 74700-6 #### [facility] ([id number]) [address], [address] [place] [address] Potassium [Moles/Vol] 4.8 mmol/L Normal 3.5-5.0 [facility] Comment on above: Performed By: #### C BCA, BMP, LIVR, 14610-3, 3016-3, 76951-5 #### [facility] ([id number]) [address], [address] [place] [address] Sodium [Moles/Vol] 141 mmol/L Normal 134-146 [facility] Comment on above: Performed By: #### C BCA, BMP, LIVR, 24857-8, 3016-3, 81037-4 #### [facility] ([id number]) [address], [address] [place] [address] Urea nitrogen [Mass/Vol] 27 mg/dL Normal 5-27 [facility] Comment on above: Performed By: #### C BCA, BMP, LIVR, 63154-4, 3015-3, 87161-5 #### [facility] ([id number]) [address], [address] [place] [address] MAGNESIUMon 07-19-2023 Magnesium [Mass/Vol] 2.1 mg/dL Normal 1.8-2.6 [facility] Comment on above: Performed By: #### C BCA, BMP, LIVR, 05541-0, 3016-3, 10743-3 #### [facility] ([id number]) [address], [address] [place] [address] Natriuretic peptide B [Mass/ Vol]on 07-19-2023 Natriuretic peptide B (Bld) [Mass/Vol] 156 pg/mL High <100.0 [facility] Comment on above: Performed By: #### C BCA, BMP, LIVR, 87237-2, 3016-3, 50549-8 #### [facility] ([id number]) [address], [address] [place] [address] POTASSIUMon 07-19-2023 Potassium [Moles/Vol] 4.7 mmol/L Normal 3.5-5.0 [facility] Comment on above: Performed By: #### C BCA, BMP, LIVR, 22534-4, 3016-3, 42313-1 #### [facility] ([id number]) [address], [address] [place] [address] Troponin I.cardiac High sens itivity method [Mass/Vol]on 07-19-2023 1 HOUR TROP I, HIGH SENSITIVITY 4 ng/L Normal <16 [facility] Comment on above: Performed By: #### C BCA, BMP, LIVR, 05801-0, 3016-3, 94001-3 #### [facility] ([id number]) [address], [address] [place] [address] TROPONIN I, HIGH SENSITIVITY 4 ng/L Normal <16 [facility] Comment on above: Performed By: #### C BCA, BMP, LIVR, 76889-3, 3016-3, 22278-9 #### [facility] ([id number]) [address], [address] [place] [address] XR KNEE RT 1 OR 2 VWSon 07-04 XR KNEE RT 1 OR 2 VWS XR KNEE RT 1 OR 2 VWS 2 views of the right knee dated 07/19/2023 at 12:18 PM INDICATION: Knee replacement postoperative evaluation. FINDINGS: Comparison is 03/02/2017. Postoperative changes status post total right knee arthroplasty in good alignment. No acute hardware abnormality seen. IMPRESSION: 1. 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 Finalized by Hattie Ngo MD on 07/19/2023 12:38 PM Normal [facility] Erythrocyte distribution wid th Auto (RBC) [Ratio]on 07-06-2023 Erythrocyte distribution width (RBC) [Ratio] 13.2 % 11.0-15.0 [facility] Estimated glomerular filtrat ion rate (GFR) non- Americanon 07-06-2023 GFR/1.73 sq M.predicted among non-blacks MDRD (S/P/Bld) [Vol rate/Area] 34 mL/min/{1.73_m2} >=60 [facility] Hematocrit Auto (Bld) [Volum e fraction]on 07-06-2023 Hematocrit (Bld) [Volume fraction] 30.0 % 36.0-48.0 [facility] Hemoglobin [Mass/volume] in Bloodon 07-06-2023 Hemoglobin (Bld) [Mass/Vol] 9.5 g/dL 12.0-16.0 [facility] Iron binding capacity [Mass/ volume] in Serum or Plasmaon 07-06-2023 Iron binding capacity [Mass/Vol] 250.0 ug/dL 250.0-450.0 [facility] Iron saturation [Mass Fracti on] in Serum or Plasmaon 07-06-2023 Iron saturation [Mass fraction] 26.8 % [facility] Laboratory - Chemistry and C hemistry - challengeon 07-06-2023 Albumin [Mass/Vol] 4.3 g/dL 3.4-5.0 [facility] Calcium [Mass/Vol] 9.5 mg/dL 8.5-10.1 [facility] Chloride [Moles/Vol] 105 mmol/L 98-107 [facility] CO2 [Moles/Vol] 25.2 mmol/L 21.0-32.[address] [facility] Creatinine [Mass/Vol] 1.49 mg/dL 0.55-1.02 [facility] Ferritin [Mass/Vol] 172.0 ng/mL 8.0-252.0 [facility] GFR/1.73 sq M.predicted MDRD (S/P/Bld) [Vol rate/Area] 41 mL/min/{1.73_m2} >=60 [facility] Glucose [Mass/Vol] 107 mg/dL 74-106 [facility] Iron [Mass/Vol] 67.0 ug/dL 50.0-170.0 [facility] Magnesium [Mass/Vol] 2.1 mg/dL 1.8-2.4 [facility] Potassium [Moles/Vol] 5.6 mmol/L 3.5-5.1 [facility] Sodium [Moles/Vol] 139 mmol/L 136-145 [facility] Urate [Mass/Vol] 6.9 mg/dL 2.6-6.[address] [facility] Urea nitrogen [Mass/Vol] 25.0 mg/dL 7.0-18.0 [facility] Urea nitrogen/Creatinine [Mass ratio] 16.8 mg/mg [facility] Laboratory - Urinalysison Protein (U) [Mass/Vol] 6.8 mg/dL <=11.9 [facility] Leukocytes [#/volume] correc nelly for nucleated erythrocytes in Blood by Automated counon 07-06-2023 WBC corrected for nucl RBC Auto (Bld) [#/Vol] 6.4 10 3/uL 4.0-11.0 [facility] MCH Auto (RBC) [Entitic mass ]on 07-06-2023 MCH (RBC) [Entitic mass] 30.3 pg 26.7-34.0 [facility] MCHC Auto (RBC) [Mass/Vol]on 07-06-2023 MCHC (RBC) [Mass/Vol] 31.7 g/dL 29.9-35.2 [facility] MCV Auto (RBC) [Entitic vol] on 07-06-2023 MCV (RBC) [Entitic vol] 95.5 fL 81.0-99.0 [facility] No Panel Informationon 07-05 25-Hydroxy Vitamin D Total 57.7 ng/mL [facility] Comment on above: <20 ng/mL Vit D defi cient20-<30 ng/mL Vit D ggyxpigwxzcb26-746 ng/mL Vit D sufficient>100 ng/mL Potential Toxicity Parathyroid Hormone (Intact) 81 pg/mL 15-65 [facility] Comment on above: Performed at: [address] [id number] Director: Tavon Arevalo PhD, Phone: [phone] Phosphorus Level 4.0 mg/dL 2.6-4.[address] [facility] Urine Random Creatinine 65.39 mg/dL 20.00-300.00 [facility] Platelet mean volume Auto (B ld) [Entitic vol]on 07-06-2023 Platelet mean volume (Bld) [Entitic vol] 10.3 fL 9.5-13.5 [facility] Platelets Auto (Bld) [#/Vol] on 07-06-2023 Platelets (Bld) [#/Vol] 241 10 3/uL 150-450 [facility] RBC Auto (Bld) [#/Vol]on RBC (Bld) [#/Vol] 3.14 10 6/uL 4.20-5.40 [facility] Serum or plasma anion gap de terminationon 07-06-2023 Anion gap [Moles/Vol] 14.4 mmol/L Fi [facility] Urine protein/creatinine rat ioon 07-06-2023 Protein/Creatinine (U) [Ratio] 0.10 [facility] BASIC METABOLIC PANLon 06-21 Anion gap [Moles/Vol] 11 mmol/L Normal 5-15 [facility] Comment on above: Performed By: #### C BCA, BMP, LIVR, 40429-4, 3016-3, 34765-3 #### [facility] ([id number]) [address], [address] [place] [address] Calcium [Mass/Vol] 9.5 mg/dL Normal 8.5-10.5 [facility] Comment on above: Performed By: #### C BCA, BMP, LIVR, 89393-2, 3016-3, 53180-2 #### [facility] ([id number]) [address], [address] [place] [address] Chloride [Moles/Vol] 106 mmol/L Normal 98-109 [facility] Comment on above: Performed By: #### C BCA, BMP, LIVR, 27165-6, 3016-3, 13009-0 #### [facility] ([id number]) [address], [address] [place] [address] CO2 [Moles/Vol] 24 mmol/L Normal 22-32 [facility] Comment on above: Performed By: #### C BCA, BMP, LIVR, 07487-7, 3016-3, 12453-1 #### [facility] ([id number]) [address] [address] [place] [address] Creatinine [Mass/Vol] 1.48 mg/dL High 0.40-1.00 [facility] Comment on above: Result Comment: METH OD TRACEABLE TO IDMS STANDARD Performed By: #### C BCA, BMP, LIVR, 49511-0, 3016-3, 15207-9 #### [facility] ([id number]) [address] [address] [place] [address] GFR/1.73 sq M.predicted among non-blacks MDRD (S/P/Bld) [Vol rate/Area] 37 mL/min/{1.73_m2} Low >59 [facility] Comment on above: Result Comment: Reported eGFR is based on the CKD-EPI 2020 equation that does not use a race coefficient. Performed By: #### C BCA, BMP, LIVR, 99482-1, 3016-3, 56263-4 #### [facility] ([id number]) [address] [address] [place] [address] Glucose [Mass/Vol] 99 mg/dL Normal 65-99 [facility] Comment on above: Performed By: #### C BCA, BMP, LIVR, 81231-6, 3016-3, 00433-9 #### [facility] ([id number]) [address] [address] [place] [address] Potassium [Moles/Vol] 5.5 mmol/L High 3.5-5.0 [facility] Comment on above: Performed By: #### C BCA, BMP, LIVR, 16084-1, 3016-3, 14461-0 #### [facility] ([id number]) [address], [address] [place] [address] Sodium [Moles/Vol] 141 mmol/L Normal 134-146 [facility] Comment on above: Performed By: #### C BCA, BMP, LIVR, 25148-8, 3016-3, 69119-9 #### [facility] ([id number]) [address], [address] [place] [address] Urea nitrogen [Mass/Vol] 25 mg/dL Normal 5-27 [facility] Comment on above: Performed By: #### C BCA, BMP, LIVR, 80340-8, 6-3, 46642-9 #### [facility] ([id number]) [address] [address] [place] [address] CBC AND AUTO DIFFon 06-22-19 24 ABSOLUTE BASOPHIL 0.0 X10E9/L Normal 0.0-0.2 [facility] Comment on above: Performed By: #### C BCA, BMP, PINR #### [facility] ([id number]) [address], [address] [place] [address] ABSOLUTE NEUTROPHIL 4.4 X10E9/L Normal 1.5-6.6 [facility] Comment on above: Performed By: #### C BCA, BMP, PINR #### [facility] ([id number]) [address] [address] [place] [address] Basophils/100 WBC (Bld) 0.4 % Normal [facility] Comment on above: Performed By: #### C BCA, BMP, PINR #### [facility] ([id number]) [address] [address] [place] [address] Eosinophils (Bld) [#/Vol] 0.1 10*3/uL Normal 0.0-0.4 [facility] Comment on above: Performed By: #### C RADHA, BMP, PINR #### [facility] ([id number]) [address], [address] [place] [address] Eosinophils/100 WBC (Bld) 1.3 % Normal [facility] Comment on above: Performed By: #### C RADHA, BMP, PINR #### [facility] ([id number]) [address], [address] [place] [address] Erythrocyte distribution width (RBC) [Ratio] 14.0 % Normal 11.5-15.0 [facility] Comment on above: Performed By: #### C TERI GARCIA, PINR #### [facility] ([id number]) [address], [facility] [address] [place] [address] Hematocrit (Bld) [Volume fraction] 28.8 % Low 35-47 [facility] Comment on above: Performed By: #### C RADHA BMP, PINR #### [facility] ([id number]) [address], [address] [place] [address] Hemoglobin (Bld) [Mass/Vol] 9.9 g/dL Low 11.7-15.5 [facility] Comment on above: Performed By: #### C RADHA, BMP, PINR #### [facility] ([id number]) [address], [address] [place] [address] Lymphocytes (Bld) [#/Vol] 0.9 10*3/uL Low 1.0-3.5 [facility] Comment on above: Performed By: #### C RADHA, BMP, PINR #### [facility] ([id number]) [address], [address] [place] [address] Lymphocytes/100 WBC (Bld) 16.5 % Normal [facility] Comment on above: Performed By: #### C RADHA, BMP, PINR #### [facility] ([id number]) [address], [address] [place] [address] MCH (RBC) [Entitic mass] 31.3 pg Normal 27-34 [facility] Comment on above: Performed By: #### C TERI GARCIA, PINR #### [facility] ([id number]) [address], [address] [place] [address] MCHC (RBC) [Mass/Vol] 34.4 g/dL Normal 32-36 [facility] Comment on above: Performed By: #### C TERI GARCIA, PINR #### [facility] ([id number]) [address], [address] [place] [address] MCV (RBC) [Entitic vol] 91 fL Normal 80-100 [facility] Comment on above: Performed By: #### TERI Steele BCA, PINR #### [facility] ([id number]) [address], [address] [place] [address] Monocytes (Bld) [#/Vol] 0.3 10*3/uL Normal 0-0.9 [facility] Comment on above: Performed By: #### C TERI GARCIA, PINR #### [facility] ([id number]) [address], [address] [place] [address] Monocytes/100 WBC (Bld) 4.7 % Normal [facility] Comment on above: Performed By: #### TERI Steele BCA, PINR #### [facility] ([id number]) [address], [address] [place] [address] Neutrophils/100 WBC (Bld) 77.1 % Normal [facility] Comment on above: Performed By: #### TERI Steele BCA, PINR #### [facility] ([id number]) [address], [address] [place] [address] Platelet mean volume (Bld) [Entitic vol] 9.4 fL Normal 7-12 [facility] Comment on above: Performed By: #### C RADHA BMP, PINR #### [facility] ([id number]) [address], [facility] [address] [place] [address] Platelets (Bld) [#/Vol] 219 10*3/uL Normal 150-450 [facility] Comment on above: Performed By: #### Ivette GARCIA, BMP, PINR #### [facility] ([id number]) [address], [facility] [address] [place] [address] RBC COUNT 3.17 X10E12/L Low 3.80-5.20 [facility] Comment on above: Performed By: #### Ivette GARCIA BMP, PINR #### [facility] ([id number]) [address], [address] [address] WBC (Bld) [#/Vol] 5.7 10*3/uL Normal 4.0-11.0 [facility] Comment on above: Performed By: #### Ivette GARCIA, BMP, PINR #### [facility] ([id number]) [address], [facility] [address] [place] [address] HGB A1C (GLYCO-HGB)on 2023 Glucose [Mass/Vol] 117 mg/dL Normal [facility] Comment on above: Performed By: #### C RADHA, BMP, LIVR, 05389-2, 3016-3, 91522-1 #### [facility] ([id number]) [address], [facility] [address] [place] [address] HbA1c (Bld) [Mass fraction] 5.7 % High 4.4-5.6 [facility] Comment on above: Result Comment: NOTE ADA Guidelines Result HgbA1c Normal : less than 5.7 % Prediabetes : 5.7 % to 6.4 % Diabetes : > 6.4 % Use with caution in patients with abnormal hemoglobin variants as the half-life of red blood cells and in vivo glycation rates are affected. Performed By: #### C BCA, BMP, LIVR, 35584-3, 3016-3, 51754-7 #### [facility] ([id number]) [address], [address] [place] [address] PROTIME AND INRon 06-22-2023 INR Coag (PPP) [Relative time] 1.0 {INR} Normal 0.8-1.1 [facility] Comment on above: Performed By: #### C BCA, BMP, LIVR, 41581-5, 3016-3, 01700-9 #### [facility] ([id number]) [address], [address] [place] [address] PT Coag (PPP) [Time] 11.1 s Normal 9.8-13.2 [facility] Comment on above: Performed By: #### C BCA, BMP, LIVR, 73420-3, 3016-3, 77248-6 #### [facility] ([id number]) [address], [address] [place] [address] BASIC METABOLIC PANLon 04-19 Anion gap [Moles/Vol] 9 mmol/L Normal 5-15 [facility] Comment on above: Performed By: #### C BCA, BMP, LIVR, 74957-5, 3016-3, 53344-2 #### [facility] ([id number]) [address], [address] [place] [address] Calcium [Mass/Vol] 9.5 mg/dL Normal 8.5-10.5 [facility] Comment on above: Performed By: #### C BCA, BMP, LIVR, 84647-8, 3016-3, 08462-7 #### [facility] ([id number]) [address], [address] [place] [address] Chloride [Moles/Vol] 105 mmol/L Normal 98-109 [facility] Comment on above: Performed By: #### C BCA, BMP, LIVR, 47285-9, 3016-3, 15478-0 #### [facility] ([id number]) [address], [address] [place] [address] CO2 [Moles/Vol] 26 mmol/L Normal 22-32 [facility] Comment on above: Performed By: #### C BCA, BMP, LIVR, 75813-1, 3016-3, 28596-9 #### [facility] ([id number]) [address] [place] [address] Creatinine [Mass/Vol] 1.43 mg/dL High 0.40-1.00 [facility] Comment on above: Result Comment: METH OD TRACEABLE TO IDMS STANDARD Performed By: #### C BCA, BMP, LIVR, 42452-4, 3016-3, 85517-5 #### [facility] ([id number]) [address], [address] [place] [address] GFR/1.73 sq M.predicted among non-blacks MDRD (S/P/Bld) [Vol rate/Area] 38 mL/min/{1.73_m2} Low >59 [facility] Comment on above: Result Comment: Reported eGFR is based on the CKD-EPI 2020 equation that does not use a race coefficient. Performed By: #### C BCA, BMP, LIVR, 07381-0, 3016-3, 45220-6 #### [facility] ([id number]) [address], [address] [place] [address] Glucose [Mass/Vol] 97 mg/dL Normal 65-99 [facility] Comment on above: Performed By: #### C BCA, BMP, LIVR, 31851-2, 3016-3, 75865-4 #### [facility] ([id number]) [address], [address] [place] [address] Potassium [Moles/Vol] 5.2 mmol/L High 3.5-5.0 [facility] Comment on above: Performed By: #### C BCA, BMP, LIVR, 70838-8, 3016-3, 86841-6 #### [facility] ([id number]) [address], [address] [place] [address] Sodium [Moles/Vol] 140 mmol/L Normal 134-146 [facility] Comment on above: Performed By: #### C BCA, BMP, LIVR, 96045-7, 3016-3, 41318-5 #### [facility] ([id number]) [address], [facility] [address] [place] [address] Urea nitrogen [Mass/Vol] 28 mg/dL High 5-27 [facility] Comment on above: Performed By: #### C BCA, BMP, LIVR, 58172-1, 3016-3, 28384-2 #### [facility] ([id number]) [address], [address] [place] [address] Basic metabolic 1998 panelon 04-19-2023 Anion gap [Moles/Vol] 9 mmol/L 5 - 15 mmol/L [facility] Calcium [Mass/Vol] 9.5 mg/dL 8.5 - 10. 5 mg/dL [facility] Chloride [Moles/Vol] 105 mmol/L 98 - 10 9 mmol/L [facility] CO2 [Moles/Vol] 26 mmol/L 22 - 32 mmol/L [facility] Creatine [Mass/Vol] 1.43 mg/dL High 0.40 - 1 .00 mg/dL [facility] Comment on above: METHOD TRACEABLE TO IDIL STANDARD GFR/1.73 sq M.predicted among non-blacks MDRD (S/P/Bld) [Vol rate/Area] 38 mL/min/{1.73_m2} Low - PINF [facility] Comment on above: Reported eGFR is based on the CKD-EPI 2020 equation that does not use a race coefficient. PERFORMED AT [facility] [address],[place] [address] Glucose [Mass/Vol] 97 mg/dL 65 - 99 mg/dL [facility] Potassium [Moles/Vol] 5.2 mmol/L High 3.5 - 5.0 mmol/L [facility] Sodium [Moles/Vol] 140 mmol/L 134 - 146 mmol/L [facility] Urea nitrogen [Mass/Vol] 28 mg/dL High 5 - 27 mg/dL [facility] CBC AND AUTO DIFFon 04-19-19 24 ABSOLUTE BASOPHIL 0.0 X10E9/L Normal 0.0-0.2 [facility] Comment on above: Performed By: #### C BCA, BMP, LIVR, 15117-9, 3016-3, 46702-7 #### [facility] ([id number]) [address], [address] [place] [address] ABSOLUTE NEUTROPHIL 3.4 X10E9/L Normal 1.5-6.6 [facility] Comment on above: Performed By: #### C BCA, BMP, LIVR, 72395-1, 3016-3, 54856-9 #### [facility] ([id number]) [address], [address] [place] [address] Basophils/100 WBC (Bld) 0.5 % Normal [facility] Comment on above: Performed By: #### C BCA, BMP, LIVR, 42322-7, 3016-3, 49933-7 #### [facility] ([id number]) [address] [place] [address] Eosinophils (Bld) [#/Vol] 0.2 10*3/uL Normal 0.0-0.4 [facility] Comment on above: Performed By: #### C BCA, BMP, LIVR, 71427-4, 3016-3, 17529-2 #### [facility] ([id number]) [address] [place] [address] Eosinophils/100 WBC (Bld) 3.8 % Normal [facility] Comment on above: Performed By: #### C BCA, BMP, LIVR, 20886-0, 3016-3, 55530-3 #### [facility] ([id number]) [address], [facility] [address] [place] [address] Erythrocyte distribution width (RBC) [Ratio] 15.4 % High 11.5-15.0 [facility] Comment on above: Performed By: #### C BCA, BMP, LIVR, 49700-2, 3016-3, 23122-8 #### [facility] ([id number]) [address] [place] [address] Hematocrit (Bld) [Volume fraction] 32.5 % Low 35-47 [facility] Comment on above: Performed By: #### C BCA, BMP, LIVR, 88103-5, 3016-3, 35113-0 #### [facility] ([id number]) [address], [facility] [address] [place] [address] Hemoglobin (Bld) [Mass/Vol] 10.8 g/dL Low 11.7-15.5 [facility] Comment on above: Performed By: #### C BCA, BMP, LIVR, 61550-4, 3016-3, 93862-3 #### [facility] ([id number]) [address], [facility] [address] [place] [address] Lymphocytes (Bld) [#/Vol] 1.6 10*3/uL Normal 1.0-3.5 [facility] Comment on above: Performed By: #### C BCA, BMP, LIVR, 28021-2, 3016-3, 91781-3 #### [facility] ([id number]) [address] [address] [place] [address] Lymphocytes/100 WBC (Bld) 29.5 % Normal [facility] Comment on above: Performed By: #### C BCA, BMP, LIVR, 76258-2, 3016-3, 10017-9 #### [facility] ([id number]) [address] [place] [address] MCH (RBC) [Entitic mass] 29.7 pg Normal 27-34 [facility] Comment on above: Performed By: #### C BCA, BMP, LIVR, 53274-1, 3016-3, 78554-0 #### [facility] ([id number]) [address], [address] [place] [address] MCHC (RBC) [Mass/Vol] 33.3 g/dL Normal 32-36 [facility] Comment on above: Performed By: #### C BCA, BMP, LIVR, 07680-7, 6-3, 12541-7 #### [facility] ([id number]) [address], [address] [place] [address] MCV (RBC) [Entitic vol] 89 fL Normal 80-100 [facility] Comment on above: Performed By: #### C BCA, BMP, LIVR, 12270-2, 6-3, 06966-4 #### [facility] ([id number]) [address], [address] [place] [address] Monocytes (Bld) [#/Vol] 0.3 10*3/uL Normal 0-0.9 [facility] Comment on above: Performed By: #### C BCA, BMP, LIVR, 69864-6, 6-3, 11628-1 #### [facility] ([id number]) [address], [address] [place] [address] Monocytes/100 WBC (Bld) 5.0 % Normal [facility] Comment on above: Performed By: #### C BCA, BMP, LIVR, 89676-0, 3016-3, 07313-5 #### [facility] ([id number]) [address], [address] [place] [address] Neutrophils/100 WBC (Bld) 61.2 % Normal [facility] Comment on above: Performed By: #### C BCA, BMP, LIVR, 42806-0, 3016-3, 34876-4 #### [facility] ([id number]) [address], [address] [place] [address] Platelet mean volume (Bld) [Entitic vol] 9.3 fL Normal 7-12 [facility] Comment on above: Performed By: #### C BCA, BMP, LIVR, 68308-3, 3016-3, 49802-2 #### [facility] ([id number]) [address], [facility] [address] [place] [address] Platelets (Bld) [#/Vol] 215 10*3/uL Normal 150-450 [facility] Comment on above: Performed By: #### C BCA, BMP, LIVR, 57901-3, 3016-3, 92670-8 #### [facility] ([id number]) [address], [facility] [address] [place] [address] RBC COUNT 3.64 X10E12/L Low 3.80-5.20 [facility] Comment on above: Performed By: #### C BCA, BMP, LIVR, 64185-3, 3016-3, 15337-2 #### [facility] ([id number]) [address] [address] [place] [address] WBC (Bld) [#/Vol] 5.6 10*3/uL Normal 4.0-11.0 [facility] Comment on above: Performed By: #### C BCA, BMP, LIVR, 73097-4, 3016-3, 24964-8 #### [facility] ([id number]) [address] [address] [place] [address] CBC W Auto Differential pane l (Bld)on 04-19-2023 ABSOLUTE BASOPHIL 0.0 [facility] Comment on above: PERFORMED AT [facility] [address],[place] [address] Basophils/100 WBC (Bld) 0.5 % [facility] Eosinophils (Bld) [#/Vol] 0.2 10*3/uL [facility] Eosinophils/100 WBC (Bld) 3.8 % [facility] Erythrocyte distribution width (RBC) [Ratio] 15.4 % High 11.5 - 15.0 % [facility] Hematocrit (Bld) [Volume fraction] 32.5 % Low 35 - 47 % [facility] Hemoglobin (Bld) [Mass/Vol] 10.8 g/dL Low 11.7 - 15.5 g/dL [facility] Lymphocytes (Bld) [#/Vol] 1.6 10*3/uL [facility] Lymphocytes/100 WBC (Bld) 29.5 % [facility] MCH (RBC) [Entitic mass] 29.7 pg 27 - 34 pg [facility] MCHC (RBC) [Mass/Vol] 33.3 g/dL 32 - 36 g/dL [facility] MCV (RBC) [Entitic vol] 89 fL 80 - 100 fL [facility] Monocytes (Bld) [#/Vol] 0.3 10*3/uL [facility] Monocytes/100 WBC (Bld) 5.0 % [facility] Neutrophils (Bld) [#/Vol] 3.4 10*3/uL [facility] Neutrophils/100 WBC (Bld) 61.2 % [facility] Platelet mean volume (Bld) [Entitic vol] 9.3 fL 7 - 12 fL [facility] Platelets (Bld) [#/Vol] 215 10*3/uL [facility] RBC (Bld) [#/Vol] 3.64 10*6/uL Low [facility] WBC corrected for nucl RBC Auto (Bld) [#/Vol] 5.6 [facility] HGB A1C (GLYCO-HGB)on 2023 Glucose [Mass/Vol] 128 mg/dL Normal [facility] Comment on above: Performed By: #### C BCA, BMP, LIVR, 81626-9, 3016-3, 54557-6 #### [facility] ([id number]) [address], [address] [place] [address] HbA1c (Bld) [Mass fraction] 6.1 % High 4.4-5.6 [facility] Comment on above: Result Comment: NOTE ADA Guidelines Result HgbA1c Normal : less than 5.7 % Prediabetes : 5.7 % to 6.4 % Diabetes : > 6.4 % Use with caution in patients with abnormal hemoglobin variants as the half-life of red blood cells and in vivo glycation rates are affected. Performed By: #### C BCA, BMP, LIVR, 61518-9, 3016-3, 13065-3 #### [facility] ([id number]) [address], [address] [place] [address] LIVER PANELon 04-19-2023 Albumin [Mass/Vol] 4.6 g/dL Normal 3.2-5.3 [facility] Comment on above: Performed By: #### C BCA, BMP, LIVR, 82308-7, 3016-3, 04753-0 #### [facility] ([id number]) [address], [address] [place] [address] ALP [Catalytic activity/Vol] 43 U/L Normal 39-130 [facility] Comment on above: Performed By: #### C BCA, BMP, LIVR, 49563-7, 3016-3, 54067-7 #### [facility] ([id number]) [address], [address] [place] [address] ALT [Catalytic activity/Vol] 13 U/L Normal 0-31 [facility] Comment on above: Performed By: #### C BCA, BMP, LIVR, 43295-3, 3016-3, 39534-3 #### [facility] ([id number]) [address], [address] [place] [address] AST [Catalytic activity/Vol] 17 U/L Normal 0-41 [facility] Comment on above: Performed By: #### C BCA, BMP, LIVR, 24377-6, 3016-3, 20225-1 #### [facility] ([id number]) [address], [address] [place] [address] Bilirubin [Mass/Vol] 0.5 mg/dL Normal 0.3-1.2 [facility] Comment on above: Performed By: #### C BCA, BMP, LIVR, 99908-8, 3016-3, 52074-3 #### [facility] ([id number]) [address], [address] [place] [address] Bilirubin.direct [Mass/Vol] 0.1 mg/dL Normal 0.0-0.4 [facility] Comment on above: Performed By: #### C BCA, BMP, LIVR, 05580-3, 3016-3, 77095-6 #### [facility] ([id number]) [address], [address] [place] [address] Protein [Mass/Vol] 7.0 g/dL Normal 6.0-8.0 [facility] Comment on above: Performed By: #### C BCA, BMP, LIVR, 41479-2, 3016-3, 31412-3 #### [facility] ([id number]) [address], [address] [place] [address] Lipid 1996 panelon 4 Cholesterol [Mass/Vol] 177 mg/dL Normal 150-200 [facility] Comment on above: Performed By: #### C BCA, BMP, LIVR, 08954-3, 3016-3, 63117-4 #### [facility] ([id number]) [address], [address] [place] [address] Cholesterol in HDL [Mass/Vol] 48 mg/dL Normal >39 [facility] Comment on above: Result Comment: HDL <40 mg/dL - High Risk HDL > or = 40mg/dL- Desirable HDL >60 mg/dL - Negative Risk Performed By: #### C BCA, BMP, LIVR, 66294-4, 3016-3, 32213-5 #### [facility] ([id number]) [address], [address] [place] [address] Cholesterol in LDL [Mass/Vol] 81 mg/dL Normal <130 [facility] Comment on above: Result Comment: LDL <100 mg/dL - Desirable LDL >160 mg/dL - High Risk Performed By: #### C BCA, BMP, LIVR, 86713-3, 3016-3, 11274-4 #### [facility] ([id number]) [address], [address] [place] [address] Cholesterol in VLDL [Mass/Vol] 48 mg/dL High 0-30 [facility] Comment on above: Performed By: #### C BCA, BMP, LIVR, 70327-7, 3016-3, 44587-4 #### [facility] ([id number]) [address], [address] [place] [address] CHOLESTEROL:HDL 3.7 Normal 1.0-5.0 [facility] Comment on above: Performed By: #### C BCA, BMP, LIVR, 43832-8, 3016-3, 91771-0 #### [facility] ([id number]) [address], [address] [place] [address] Triglyceride [Mass/Vol] 239 mg/dL High 27-150 [facility] Comment on above: Performed By: #### C BCA, BMP, LIVR, 43651-4, 3016-3, 82610-8 #### [facility] ([id number]) [address] [facility] [address] [place] [address] MICROALBUMIN - ALBUMIN:CREAT ININE URINE RATIOon 04-19-2023 ALB/CREAT RATIO 26.4 mg/g creat Normal 0.0-30.0 [facility] Comment on above: Performed By: #### M ALBU #### [facility] ([id number]) [address] [facility] [address] [place] [address] Albumin DL <= 20 mg/L (U) [Mass/Vol] 2.0 mg/dL High 0.0-1.9 [facility] Comment on above: Performed By: #### M ALBU #### [facility] ([id number]) [address] [place] [address] [address] [place] [address] URINE CREAT 75.68 mg/dL Normal [facility] Comment on above: Performed By: #### M ALBU #### [facility] ([id number]) [address] [place] [address] No Panel Informationon 04-19 Interpretation and review of laboratory results Abnormal [facility] Healthcare [facility] TSH Qnon 04-19-2023 TSH 1.47 uIU/mL Normal 0.49-4.67 [facility] Comment on above: Performed By: #### C BCA, BMP, LIVR, 66415-8, 3016-3, 23613-6 #### [facility] ([id number]) [address] [facility] [address] [place] [address] Vitamin D+Metabolites [Mass/ Vol]on 04-19-2023 VITAMIN D 25 HYD TOT 51.9 ng/mL Normal 30-100 [facility] Comment on above: Result Comment: Vitamin D status 25 [place] Vitamin D Deficiency <20 ng/mL Insufficiency 20-29 ng/mL Sufficiency 30-100 ng/mL Toxicity >100 ng/mL NOTE: A pediatric reference range has not been established by the work and family life consultant of this kit. The [employer] recommends a Vitamin D level of = or >20ng/mL in infants and children. Performed By: #### C BCA, BMP, LIVR, 85703-9, 3016-3, 76343-3 #### [facility] ([id number]) [address] [place] [address], [address] [place] [address] MR KNEE RIGHT WO IV CONTRAST on 04-12-2023 MR KNEE RIGHT WO IV CONTRAST Exam: MR KNEE RIGHT WO IV CONTRAST History: Lateral and posterior knee pain Technique: Multiplanar multisequence MRI of the knee was performed without contrast. Comparison: Radiographs September 15, 2021 Findings: Quadriceps and patellar tendons are intact. Small joint effusion. Thickening and hyperintense intrasubstance signal of the anterior cruciate ligament compatible with mild to moderate mucoid degeneration. The posterior cruciate ligament is intact. The medial collateral ligament, lateral collateral ligament, and popliteus are intact. Complex tear of the body through posterior horn of the medial meniscus including small flap tear component of the body with displaced meniscus flap located inferiorly along the medial tibial plateau. Horizontal tear of the anterior horn through body and junction of body with posterior horn of the lateral meniscus. There is several tiny partial-thickness cartilage defects of the weightbearing medial femoral condyle and medial tibial plateau. There are a few scattered partial-thickness cartilage defects of the weightbearing lateral femoral condyle and lateral tibial plateau. Diffuse cartilage abnormality of the patella with full-thickness cartilage loss of the lateral patellar facet and the majority of the median patellar ridge without subcortical bone marrow edema. Full-thickness cartilage loss of the outer aspect of the medial femoral trochlea without subcortical bone marrow edema. Popliteal fossa structures are intact. No Schrader cyst. IMPRESSION: Complex tear of the medial meniscus. Horizontal tear of the lateral meniscus. Mild to moderate osteoarthritis. ELECTRONICALLY SIGNED BY: Josue Rubalcava, DO Normal Not Available Comment on above: Order Comment: MRI R T knee to be done at [facility] is scheduled 04/12/23 at 10:30 for the mri, thank you Surgical Pathologyon 024 Surgical Pathology Normal [facility] Comment on above: Result Comment: [facility] [place] [address] Surgical Pathology Consultation Patient Name:ARMANDO REYES:1945 (Age: 77)Gender:FTaken:03/08/2023eported:03/10/2023hysician(s):Michaela Emerson MD ([phone])Copy To: Rec. #:[id number]: #[id number] Final Pathologic Diagnosis 1. Duodenal polyps, biopsy: Dayanara's gland hyperplasia. No adenoma, heterotopia or malignancy identified. 2. Gastric antrum, biopsies: Regeneration of gastric pits, consistent with a chemical or reactive gastritis. No inflammation, intestinal metaplasia, dysplasia or H. pylori organisms identified. 3. Gastric fundus, biopsies: Gastric fundic mucosa with slight regeneration of gastric pits. No inflammation, intestinal metaplasia, dysplasia or H. pylori organisms identified. 4. Colon polyp at 40 cm, biopsy: Sessile serrated lesion. No dysplasia identified. Report Electronically Signed Out [facility]/03/10/2023Sujoel Card M.D. Interpretation performed at [facility], [address] [place] [address], License number: [id number]. Clinical History Iron deficient/anemia. Gross Description 1. Received in formalin labeled, TROY, duodenum are 3 palacio delicate to friable soft tissue bits, each 0.3 cm in greatest dimension. The specimens are filtered and submitted in a single cassette. (1, ns, Z80-618-1, m7) TB 2. Received in formalin labeled, DANELLEON, antral are 2 palacio delicate soft tissue bits, 0.2 and 0.3 cm in greatest dimension. The specimens are filtered and submitted in a single cassette. (1, ns, [id number], m7) TB 3. Received in formalin labeled, TROY, fundus are 2 pale-palacio delicate soft tissue bits, 0.3 and 0.4 cm in greatest dimension. The specimens are filtered and submitted in a single cassette. (1, ns, [id number], m7) TB 4. Received in formalin labeled, SEAMON, 45 cm colon polyps is a pale-palacio feathery soft tissue bits, 0.4 cm in greatest dimension. The specimens are filtered and submitted in a single cassette. (1, ns, [id number], m7) [facility]/03/08/2023GR Specimen(s) Received 1: Duodenum x2 polyps 2: Antrum biopsy 3: Fundic stomach 4: Colon polyp at 45cm Fee Codes(s): 1; 82104 2; 07864 3; 79758 4; 99623 GLYCOHEMOGLOBIN A1Con 2022 ADA RECOMMENDATION SEE BELOW Normal [facility] Comment on above: Result Comment: ADA RECOMMENDED LIMIT 4.0 - 6.0 ADA THERAPEUTIC TARGET < 7.0 ACTION SUGGESTED > 7.0 Performed By: #### B MP, LIPID, AST, TSH, ALT #### [facility] [address] [place] [address] Dr. Viri Strong Glucose [Mass/Vol] 126 mg/dL Normal [facility] Comment on above: Performed By: #### B MP, LIPID, AST, TSH, ALT #### [facility] [address] [address] [address] Viri Strong HbA1c (Bld) [Mass fraction] 6.0 % Normal 4.5-6.2 [facility] Comment on above: Performed By: #### B MP, LIPID, AST, TSH, ALT #### [facility] [address] [address] [address] Viri Strong RENAL FUNCTION PANELon 03-15 Albumin [Mass/Vol] 4.1 g/dL Normal 3.4-5.0 [facility] Comment on above: Performed By: #### B MP, LIPID, AST, TSH, ALT #### [facility] [address] [address] [address] Viri Strong Calcium [Mass/Vol] 9.1 mg/dL Normal 8.5-10.1 [facility] Comment on above: Performed By: #### B MP, LIPID, AST, TSH, ALT #### [facility] [address] [address] [address] Viri Strong Chloride [Moles/Vol] 107 mmol/L Normal 98-107 [facility] Comment on above: Performed By: #### B MP, LIPID, AST, TSH, ALT #### [facility] [address] [place] [address] Dr. Viri Strong CO2 [Moles/Vol] 24.6 mmol/L Normal 21.0-32.0 [facility] Comment on above: Performed By: #### B MP, LIPID, AST, TSH, ALT #### [facility] [address] [address] [address] Viri Strong Creatinine [Mass/Vol] 1.31 mg/dL Critically high 0.55-1.02 [facility] Comment on above: Performed By: #### B MP, LIPID, AST, TSH, ALT #### [facility] [address] [place] [address] Dr. Viri Strong EGFR-AF COMORAN 48 mL/min/1.73m2 Critically low >=60 [facility] Comment on above: Performed By: #### B MP, LIPID, AST, TSH, ALT #### [facility] [address] [place] [address] Dr. Viri Strong EGFR-NON AF COMORAN 40 mL/min/1.73m2 Critically low >=60 [facility] Comment on above: Performed By: #### B MP, LIPID, AST, TSH, ALT #### [facility] [address] [place] [address] Dr. Viri Strong Glucose [Mass/Vol] 99 mg/dL Normal 74-106 [facility] Comment on above: Performed By: #### B MP, LIPID, AST, TSH, ALT #### [facility] [address] [place] [address] Dr. Viri Strong Phosphate [Mass/Vol] 3.4 mg/dL Normal 2.6-4.7 [facility] Comment on above: Performed By: #### B MP, LIPID, AST, TSH, ALT #### [facility] [address] [place] [address] Dr. Viri Strong Potassium [Moles/Vol] 4.6 mmol/L Normal 3.5-5.1 [facility] Comment on above: Performed By: #### B MP, LIPID, AST, TSH, ALT #### [facility] [address] [address] [address] Viri Strong Sodium [Moles/Vol] 141 mmol/L Normal 136-145 [facility] Comment on above: Performed By: #### B MP, LIPID, AST, TSH, ALT #### [facility] [address] [place] [address] Dr. Viri Strong Urea nitrogen [Mass/Vol] 28.0 mg/dL Critically high 7.0-18.0 [facility] Comment on above: Performed By: #### B MP, LIPID, AST, TSH, ALT #### [facility] [address] [place] [address] Dr. Viri Strong RENAL FUNCTION PANELon 01-31 Albumin [Mass/Vol] 4.1 g/dL Normal 3.4-5.0 [facility] Comment on above: Performed By: #### B MP, LIPID, AST, TSH, ALT #### [facility] [address] [place] [address] Dr. Viri Strong Calcium [Mass/Vol] 9.3 mg/dL Normal 8.5-10.1 [facility] Comment on above: Performed By: #### B MP, LIPID, AST, TSH, ALT #### [facility] [address] [place] [address] Dr. Viri Strong Chloride [Moles/Vol] 105 mmol/L Normal 98-107 [facility] Comment on above: Performed By: #### B MP, LIPID, AST, TSH, ALT #### [facility] [address] [place] [address] Dr. Viri Strong CO2 [Moles/Vol] 22.5 mmol/L Normal 21.0-32.0 [facility] Comment on above: Performed By: #### B MP, LIPID, AST, TSH, ALT #### [facility] [address] [place] [address] Dr. Viri Strong Creatinine [Mass/Vol] 1.31 mg/dL Critically high 0.55-1.02 [facility] Comment on above: Performed By: #### B MP, LIPID, AST, TSH, ALT #### [facility] [address] [place] [address] Dr. Viri Strong EGFR-AF COMORAN 48 mL/min/1.73m2 Critically low >=60 [facility] Comment on above: Performed By: #### B MP, LIPID, AST, TSH, ALT #### [facility] [address] [place] [address] Dr. Viri Strong EGFR-NON AF COMORAN 40 mL/min/1.73m2 Critically low >=60 [facility] Comment on above: Performed By: #### B MP, LIPID, AST, TSH, ALT #### [facility] [address] [place] [address] Dr. Viri Strong Glucose [Mass/Vol] 105 mg/dL Normal 74-106 [facility] Comment on above: Performed By: #### B MP, LIPID, AST, TSH, ALT #### [facility] [address] [place] [address] Dr. Viri Strong Phosphate [Mass/Vol] 3.2 mg/dL Normal 2.6-4.7 [facility] Comment on above: Performed By: #### B MP, LIPID, AST, TSH, ALT #### [facility] [address] [place] [address] Dr. Viri Strong Potassium [Moles/Vol] 5.0 mmol/L Normal 3.5-5.1 [facility] Comment on above: Performed By: #### B MP, LIPID, AST, TSH, ALT #### [facility] [address] [place] [address] Dr. Viri Strong Sodium [Moles/Vol] 138 mmol/L Normal 136-145 [facility] Comment on above: Performed By: #### B MP, LIPID, AST, TSH, ALT #### [facility] [address] [place] [address] Dr. Viri Strong Urea nitrogen [Mass/Vol] 24.0 mg/dL Critically high 7.0-18.0 [facility] Comment on above: Performed By: #### B MP, LIPID, AST, TSH, ALT #### [facility] [address] [address] [address] Viri Strong MAGNESIUMon 01-19-2022 Magnesium [Mass/Vol] 2.1 mg/dL Normal 1.8-2.4 [facility] Comment on above: Performed By: #### B MP, LIPID, AST, TSH, ALT #### [facility] [address] [address] [address] Viri Strong RENAL FUNCTION PANELon 01-19 Albumin [Mass/Vol] 4.4 g/dL Normal 3.4-5.0 [facility] Comment on above: Performed By: #### B MP, LIPID, AST, TSH, ALT #### [facility] [address] [place] [address] Dr. Viri Strong Calcium [Mass/Vol] 9.7 mg/dL Normal 8.5-10.1 [facility] Comment on above: Performed By: #### B MP, LIPID, AST, TSH, ALT #### [facility] [address] [address] [address] Viri Strong Chloride [Moles/Vol] 101 mmol/L Normal 98-107 [facility] Comment on above: Performed By: #### B MP, LIPID, AST, TSH, ALT #### [facility] [address] [place] [address] Dr. Viri Strong CO2 [Moles/Vol] 26.8 mmol/L Normal 21.0-32.0 [facility] Comment on above: Performed By: #### B MP, LIPID, AST, TSH, ALT #### [facility] [address] [place] [address] Dr. Viri Strong Creatinine [Mass/Vol] 1.37 mg/dL Critically high 0.55-1.02 [facility] Comment on above: Performed By: #### B MP, LIPID, AST, TSH, ALT #### [facility] [address] [place] [address] Dr. Viri Strong EGFR-AF COMORAN 46 mL/min/1.73m2 Critically low >=60 [facility] Comment on above: Performed By: #### B MP, LIPID, AST, TSH, ALT #### [facility] [address] [place] [address] Dr. Viri Strong EGFR-NON AF COMORAN 38 mL/min/1.73m2 Critically low >=60 [facility] Comment on above: Performed By: #### B MP, LIPID, AST, TSH, ALT #### [facility] [address] [place] [address] Dr. Viri Strong Glucose [Mass/Vol] 88 mg/dL Normal 74-106 [facility] Comment on above: Performed By: #### B MP, LIPID, AST, TSH, ALT #### [facility] [address] [place] [address] Dr. Viri Strong Phosphate [Mass/Vol] 4.2 mg/dL Normal 2.6-4.7 [facility] Comment on above: Performed By: #### B MP, LIPID, AST, TSH, ALT #### [facility] [address] [place] [address] Dr. Viri Strong Potassium [Moles/Vol] 5.3 mmol/L Critically high 3.5-5.1 [facility] Comment on above: Performed By: #### B MP, LIPID, AST, TSH, ALT #### [facility] [address] [place] [address] Dr. Viri Strong Sodium [Moles/Vol] 135 mmol/L Critically low 136-145 [facility] Comment on above: Performed By: #### B MP, LIPID, AST, TSH, ALT #### [facility] [address] [place] [address] Dr. Viri Strong Urea nitrogen [Mass/Vol] 35.0 mg/dL Critically high 7.0-18.0 [facility] Comment on above: Performed By: #### B MP, LIPID, AST, TSH, ALT #### [facility] [address] [place] [address] Dr. Viri Strong UA RANDOM W/MICROSCOPICon BACTERIA NONE SEEN Normal NONE SEEN [facility] Comment on above: Performed By: #### B MP, LIPID, AST, TSH, ALT #### [facility] [address] [address] [address] Viri Strong Bilirubin Ql (U) Negative Normal NEGATIVE [facility] Comment on above: Performed By: #### B MP, LIPID, AST, TSH, ALT #### [facility] [address] [place] [address] Dr. Viri Strong CAST NONE SEEN Normal NONE SEEN [facility] Comment on above: Performed By: #### B MP, LIPID, AST, TSH, ALT #### [facility] [address] [place] [address] Dr. Viri Strong Clarity (U) CLEAR Normal CLEAR [facility] Comment on above: Performed By: #### B MP, LIPID, AST, TSH, ALT #### [facility] [address] [place] [address] Dr. Viri Strong Color (U) LT. YELLOW Normal YELLOW [facility] Comment on above: Performed By: #### B MP, LIPID, AST, TSH, ALT #### [facility] [address] [place] [address] Dr. Viri Strong Crystals LM Nom (Urine sed) NONE SEEN Normal NONE SEEN [facility] Comment on above: Performed By: #### B MP, LIPID, AST, TSH, ALT #### [facility] [address] [place] [address] Dr. Viri Strong Epithelial cells LM Ql (Urine sed) RARE Normal NONE SEEN /RARE [facility] Comment on above: Performed By: #### B MP, LIPID, AST, TSH, ALT #### [facility] [address] [place] [address] Dr. Viri Strong Glucose Ql (U) Negative Normal NEGATIVE [facility] Comment on above: Performed By: #### B MP, LIPID, AST, TSH, ALT #### [facility] [address] [place] [address] Dr. Viri Strong Hemoglobin Ql (U) Negative Normal NEGATIVE The [facility] Comment on above: Performed By: #### B MP, LIPID, AST, TSH, ALT #### [facility] [address] [place] [address] Dr. Viri tSrong Ketones Ql (U) Negative Normal NEGATIVE [facility] Comment on above: Performed By: #### B MP, LIPID, AST, TSH, ALT #### [facility] [address] [address] [address] Viri Strong LEUKOCYTES TRACE Abnormal NEGATIVE [facility] Comment on above: Performed By: #### B MP, LIPID, AST, TSH, ALT #### [facility] [address] [place] [address] Dr. Viri Strong MUCOUS NONE SEEN Normal NONE SEEN [facility] Comment on above: Performed By: #### B MP, LIPID, AST, TSH, ALT #### [facility] [address] [place] [address] Dr. Viri Strong Nitrite Ql (U) Negative Normal NEGATIVE [facility] Comment on above: Performed By: #### B MP, LIPID, AST, TSH, ALT #### [facility] [address] [place] [address] Dr. Viri Strong pH (U) 5.0 [pH] Normal 5-9 [facility] Comment on above: Performed By: #### B MP, LIPID, AST, TSH, ALT #### [facility] [address] [place] [address] Dr. Viri Strong RBC 0-2 Normal 0-2 [facility] Comment on above: Performed By: #### B MP, LIPID, AST, TSH, ALT #### [facility] [address] [place] [address] Dr. Viri Strong SPEC GRAVITY 1.010 Normal 1.005-<=1.025 [facility] Comment on above: Performed By: #### B MP, LIPID, AST, TSH, ALT #### [facility] [address] [place] [address] Dr. Viri Strong UA PROTEIN Negative Normal NEGATIVE/ TRACE [facility] Comment on above: Performed By: #### B MP, LIPID, AST, TSH, ALT #### [facility] [address] [place] [address] Dr. Viri Strong Urobilinogen Qn (U) 0.2 {Alem'U}/dL Normal 0.2 - 1. 0 [facility] Comment on above: Performed By: #### B MP, LIPID, AST, TSH, ALT #### [facility] [address] [place] [address] Dr. Viri Strong WBC 2-5 Abnormal NONE SEEN [facility] Comment on above: Performed By: #### B MP, LIPID, AST, TSH, ALT #### [facility] [address] [place] [address] Dr. Viri Strong PTH INTACTon 01-04-2022 PTH, Intact 45 pg/mL Normal 15-65 [facility] Comment on above: Performed By: #### B MP, LIPID, AST, TSH, ALT #### [facility] [address] [place] [address] Dr. Viri Strong FERRITINon 01-03-2022 Ferritin [Mass/Vol] 51.0 ng/mL Normal 8.0-252.0 [facility] Comment on above: Performed By: #### B MP, LIPID, AST, TSH, ALT #### [facility] [address] [place] [address] Dr. Viri Strong HEMOGRAM AND PLATELon 2021 Hematocrit (Bld) [Volume fraction] 31.7 % Critically low 36.0-48.0 [facility] Comment on above: Performed By: #### B MP, LIPID, AST, TSH, ALT #### [facility] [address] [place] [address] Dr. Viri Strong Hemoglobin (Bld) [Mass/Vol] 10.2 g/dL Critically low 12.0-16.0 [facility] Comment on above: Performed By: #### B MP, LIPID, AST, TSH, ALT #### [facility] [address] [place] [address] Dr. Viri Strong MCH (RBC) [Entitic mass] 29.2 pg Normal 26.7-34.0 [facility] Comment on above: Performed By: #### B MP, LIPID, AST, TSH, ALT #### [facility] [address] [place] [address] Dr. Viri Strong MCHC (RBC) [Mass/Vol] 32.2 g/dL Normal 29.9-35.2 [facility] Comment on above: Performed By: #### B MP, LIPID, AST, TSH, ALT #### [facility] [address] [place] [address] Dr. Viri Strong MCV (RBC) [Entitic vol] 90.8 fL Normal 81.0-99.0 [facility] Comment on above: Performed By: #### B MP, LIPID, AST, TSH, ALT #### [facility] [address] [place] [address] Dr. Viri Strong PLT 231 103/ul Normal 150-450 [facility] Comment on above: Performed By: #### B MP, LIPID, AST, TSH, ALT #### [facility] [address] [place] [address] Dr. Viri Strong RBC 3.49 106/ul Critically low 4.20-5.40 [facility] Comment on above: Performed By: #### B MP, LIPID, AST, TSH, ALT #### [facility] [address] [place] [address] Dr. Viri Strong WBC 5.9 103/ul Normal 4.0-11.0 [facility] Comment on above: Performed By: #### B MP, LIPID, AST, TSH, ALT #### [facility] [address] [place] [address] Dr. Viri Strong IRON AND TIBCon 01-03-2022 % SATURATION 18.0 % Normal [facility] Comment on above: Performed By: #### B MP, LIPID, AST, TSH, ALT #### [facility] [address] [place] [address] Dr. Viri Strong Iron [Mass/Vol] 58.0 ug/dL Normal 50.0-170.0 [facility] Comment on above: Performed By: #### B MP, LIPID, AST, TSH, ALT #### [facility] [address] [place] [address] Dr. Viri Strong TIBC DIRECT 322.0 ug/dL Normal 250.0-450.0 [facility] Comment on above: Performed By: #### B MP, LIPID, AST, TSH, ALT #### [facility] [address] [place] [address] Dr. Viri Strong MAGNESIUMon 01-03-2022 Magnesium [Mass/Vol] 2.1 mg/dL Normal 1.8-2.4 [facility] Comment on above: Performed By: #### M G, URIC, RENAL #### [facility] [address] [address] [address] Viri Strong RENAL FUNCTION PANELon 01-03 Albumin [Mass/Vol] 4.3 g/dL Normal 3.4-5.0 [facility] Comment on above: Performed By: #### M G, URIC, RENAL #### [facility] [address] [place] [address] Dr. Viri Strong Calcium [Mass/Vol] 9.0 mg/dL Normal 8.5-10.1 [facility] Comment on above: Performed By: #### M G, URIC, RENAL #### [facility] [address] [address] [address] Viri Strong Chloride [Moles/Vol] 108 mmol/L Critically high 98-107 [facility] Comment on above: Performed By: #### M G, URIC, RENAL #### [facility] [address] [address] [address] Viri Strong CO2 [Moles/Vol] 23.4 mmol/L Normal 21.0-32.0 The [facility] Comment on above: Performed By: #### M G, URIC, RENAL #### [facility] [address] [address] [address] Viri Strong Creatinine [Mass/Vol] 1.32 mg/dL Critically high 0.55-1.02 [facility] Comment on above: Performed By: #### M G, URIC, RENAL #### [facility] [address] [address] [address] Viri Strong EGFR-AF COMORAN 48 mL/min/1.73m2 Critically low >=60 [facility] Comment on above: Performed By: #### M G, URIC, RENAL #### [facility] [address] [place] [address] Dr. Viri Strong EGFR-NON AF COMORAN 39 mL/min/1.73m2 Critically low >=60 [facility] Comment on above: Performed By: #### M G, URIC, RENAL #### [facility] [address] [address] [address] Viri Strong Glucose [Mass/Vol] 92 mg/dL Normal 74-106 [facility] Comment on above: Performed By: #### M Nasreen, URIC, RENAL #### [facility] [address] [place] [address] Dr. Viri Strong Phosphate [Mass/Vol] 4.0 mg/dL Normal 2.6-4.7 [facility] Comment on above: Performed By: #### M G, URIC, RENAL #### [facility] [address] [place] [address] Dr. Viri Strong Potassium [Moles/Vol] 4.7 mmol/L Normal 3.5-5.1 [facility] Comment on above: Performed By: #### M G, URIC, RENAL #### [facility] [address] [place] [address] Dr. Viri Strong Sodium [Moles/Vol] 138 mmol/L Normal 136-145 [facility] Comment on above: Performed By: #### M G, URIC, RENAL #### [facility] [address] [place] [address] Dr. Viri Strong Urea nitrogen [Mass/Vol] 33.0 mg/dL Critically high 7.0-18.0 [facility] Comment on above: Performed By: #### M G, URIC, RENAL #### [facility] [address] [place] [address] Dr. Viri Strong UA RANDOM W/MICROSCOPICon BACTERIA NONE SEEN Normal NONE SEEN [facility] Comment on above: Performed By: #### B MP, LIPID, AST, TSH, ALT #### [facility] [address] [address] [address] Viri Strong Bilirubin Ql (U) Negative Normal NEGATIVE The [facility] Comment on above: Performed By: #### B MP, LIPID, AST, TSH, ALT #### [facility] [address] [address] [address] Viri Strong CAST NONE SEEN Normal NONE SEEN [facility] Comment on above: Performed By: #### B MP, LIPID, AST, TSH, ALT #### [facility] [address] [place] [address] Dr. Viri Strong Clarity (U) CLEAR Normal CLEAR [facility] Comment on above: Performed By: #### B MP, LIPID, AST, TSH, ALT #### [facility] [address] [place] [address] Dr. Viri Strong Color (U) LT. YELLOW Normal YELLOW [facility] Comment on above: Performed By: #### B MP, LIPID, AST, TSH, ALT #### [facility] [address] [place] [address] Dr. Viri Strong Crystals LM Nom (Urine sed) NONE SEEN Normal NONE SEEN [facility] Comment on above: Performed By: #### B MP, LIPID, AST, TSH, ALT #### [facility] [address] [place] [address] Dr. Viri Strong Epithelial cells LM Ql (Urine sed) NONE SEEN Normal NONE SEEN /RARE [facility] Comment on above: Performed By: #### B MP, LIPID, AST, TSH, ALT #### [facility] [address] [place] [address] Dr. Viri Strong Glucose Ql (U) Negative Normal NEGATIVE [facility] Comment on above: Performed By: #### B MP, LIPID, AST, TSH, ALT #### [facility] [address] [place] [address] Dr. Viri Strong Hemoglobin Ql (U) Negative Normal NEGATIVE The [facility] Comment on above: Performed By: #### B MP, LIPID, AST, TSH, ALT #### [facility] [address] [place] [address] Dr. Viri Strong Ketones Ql (U) Negative Normal NEGATIVE [facility] Comment on above: Performed By: #### B MP, LIPID, AST, TSH, ALT #### [facility] [address] [address] [address] Viri Strong LEUKOCYTES SMALL Abnormal NEGATIVE [facility] Comment on above: Performed By: #### B MP, LIPID, AST, TSH, ALT #### [facility] [address] [place] [address] Dr. Viri Strong MUCOUS NONE SEEN Normal NONE SEEN [facility] Comment on above: Performed By: #### B MP, LIPID, AST, TSH, ALT #### [facility] [address] [place] [address] Dr. Viri Strong Nitrite Ql (U) Negative Normal NEGATIVE [facility] Comment on above: Performed By: #### B MP, LIPID, AST, TSH, ALT #### [facility] [address] [place] [address] Dr. Viri Strong pH (U) 5.5 [pH] Normal 5-9 [facility] Comment on above: Performed By: #### B MP, LIPID, AST, TSH, ALT #### [facility] [address] [place] [address] Dr. Viri Strong RBC 0-2 Normal 0-2 [facility] Comment on above: Performed By: #### B MP, LIPID, AST, TSH, ALT #### [facility] [address] [place] [address] Dr. Viri Strong SPEC GRAVITY 1.020 Normal 1.005-<=1.025 [facility] Comment on above: Performed By: #### B MP, LIPID, AST, TSH, ALT #### [facility] [address] [place] [address] Dr. Viri Strong UA PROTEIN Negative Normal NEGATIVE/ TRACE [facility] Comment on above: Performed By: #### B MP, LIPID, AST, TSH, ALT #### [facility] [address] [place] [address] Dr. Viri Strong Urobilinogen Qn (U) 0.2 {Alem'U}/dL Normal 0.2 - 1. 0 [facility] Comment on above: Performed By: #### B MP, LIPID, AST, TSH, ALT #### [facility] [address] [address] [address] Viri Strong WBC 0-2 Abnormal NONE SEEN [facility] Comment on above: Performed By: #### B MP, LIPID, AST, TSH, ALT #### [facility] [address] [address] [address] iVri Strong URIC ACID SERUMon 01-03-2022 Urate [Mass/Vol] 8.7 mg/dL Critically high 2.6-6.0 [facility] Comment on above: Performed By: #### M G, URIC, RENAL #### [facility] [address] [place] [address] Dr. Viri Strong URINE T PROTEIN CREAT RATIOo n 01-03-2022 Protein (U) [Mass/Vol] 30.8 mg/dL Critically high <=12.0 [facility] Comment on above: Performed By: #### B MP, LIPID, AST, TSH, ALT #### [facility] [address] [address] [address] Viri Strong UR PROT CREAT RAT 0.26 Normal [facility] Comment on above: Performed By: #### B MP, LIPID, AST, TSH, ALT #### [facility] [address] [address] [address] Viri Strong URINE CREAT 118.48 mg/dL Normal 20.00-300.00 [facility] Comment on above: Performed By: #### B MP, LIPID, AST, TSH, ALT #### [facility] [address] [address] [address] Viri Strong VITAMIN D 25 OHon 01-03-2022 VIT D 25-OH 36.5 ng/mL Normal [facility] Comment on above: Performed By: #### B MP, LIPID, AST, TSH, ALT #### [facility] [address] [place] [address] Dr. Viri Strong VIT D RANGES SEE BELOW Normal [facility] Comment on above: Result Comment: <20 ng/mL Vit D deficient 20 - <30 ng/mL Vit D insufficient 30 - 100 ng/mL Vit D sufficient >100 ng/mL Potential Toxicity Performed By: #### B MP, LIPID, AST, TSH, ALT #### [facility] [address] [place], [place] [address] Dr. Viri Strong MICROALBUMIN URINEon 022 Albumin, Urine 5.1 ug/mL Normal Not Estab. The [facility] Comment on above: Performed By: #### B MP, LIPID, AST, TSH, ALT #### [facility] [address] [id number] Viri Strong VIT D 25-OH [employer]on 2021 Vitamin D, 25-Hydroxy 36.7 ng/mL Normal 30.0-100.0 [facility] Comment on above: Result Comment: Silvina min D deficiency has been defined by the [place] [employer] and an Endocrine Society practice guideline as a level of serum 25-OH vitamin D less than 20 ng/mL (1,2). The Endocrine Society went on to further define vitamin D insufficiency as a level between 21 and 29 ng/mL (2). 1. IOM ([place] [employer]). 2010. Dietary reference intakes for calcium and D. [place]: The National Academies Press. 2. Levon CHILDERS, Prakash [place], Diamond KIRBY, et al. Evaluation, treatment, and prevention of vitamin D deficiency: an Endocrine Society clinical practice guideline. JCEM. 2010; 96(7):1911-30. Performed By: #### B MP, LIPID, AST, TSH, ALT #### [facility] [address] [address] [address] Viri Strong CBC AUTO DIFFon 10-26-2021 BASO # 0.1 103/ul Normal 0.0-0.1 [facility] Comment on above: Performed By: #### B MP, LIPID, AST, TSH, ALT #### [facility] [address] [address] [address] Viri Strong Basophils/100 WBC (Bld) 1.0 % Normal 0.2-2.0 [facility] Comment on above: Performed By: #### B MP, LIPID, AST, TSH, ALT #### [facility] [address] [place] [address] Dr. Viri Strong EO # 0.2 103/ul Normal 0.0-0.7 [facility] Comment on above: Performed By: #### B MP, LIPID, AST, TSH, ALT #### [facility] [address] [place] [address] Dr. Viri Strong Eosinophils/100 WBC (Bld) 4.6 % Normal 0.9-7.0 [facility] Comment on above: Performed By: #### B MP, LIPID, AST, TSH, ALT #### [facility] [address] [place] [address] Dr. Viri Strong Erythrocyte distribution width (RBC) [Ratio] 13.5 % Normal 11.0-15.0 [facility] Comment on above: Performed By: #### B MP, LIPID, AST, TSH, ALT #### [facility] [address] [place] [address] Dr. Viri Strong Hematocrit (Bld) [Volume fraction] 32.3 % Critically low 36.0-48.0 [facility] Comment on above: Performed By: #### B MP, LIPID, AST, TSH, ALT #### [facility] [address] [place] [address] Dr. Viri Strong Hemoglobin (Bld) [Mass/Vol] 10.7 g/dL Critically low 12.0-16.0 [facility] Comment on above: Performed By: #### B MP, LIPID, AST, TSH, ALT #### [facility] [address] [place] [address] Dr. Viri Strong IG # 0.01 10e3/ul Normal 0.00-0.03 [facility] Comment on above: Performed By: #### B MP, LIPID, AST, TSH, ALT #### [facility] [address] [place] [address] Dr. Viri Strong IG % 0.2 % Normal 0.0-0.5 [facility] Comment on above: Performed By: #### B MP, LIPID, AST, TSH, ALT #### [facility] [address] [place] [address] Dr. Viri Strong LYMPH # 1.3 103/ul Normal 1.2-3.8 [facility] Comment on above: Performed By: #### B MP, LIPID, AST, TSH, ALT #### [facility] [address] [place] [address] Dr. Viri Strong Lymphocytes/100 WBC (Bld) 25.5 % Normal 20.5-60.0 [facility] Comment on above: Performed By: #### B MP, LIPID, AST, TSH, ALT #### [facility] [address] [place] [address] Dr. Viri Strong MANUAL DIFF REQ NO Normal [facility] Comment on above: Performed By: #### B MP, LIPID, AST, TSH, ALT #### [facility] [address] [place] [address] Dr. Viri Strong MCH (RBC) [Entitic mass] 29.3 pg Normal 26.7-34.0 [facility] Comment on above: Performed By: #### B MP, LIPID, AST, TSH, ALT #### [facility] [address] [place] [address] Dr. Viri Strong MCHC (RBC) [Mass/Vol] 33.1 g/dL Normal 29.9-35.2 [facility] Comment on above: Performed By: #### B MP, LIPID, AST, TSH, ALT #### [facility] [address] [place] [address] Dr. Viri Strong MCV (RBC) [Entitic vol] 88.5 fL Normal 81.0-99.0 [facility] Comment on above: Performed By: #### B MP, LIPID, AST, TSH, ALT #### [facility] [address] [place] [address] Dr. Viri Strong MONO # 0.4 103/ul Normal 0.3-0.8 [facility] Comment on above: Performed By: #### B MP, LIPID, AST, TSH, ALT #### [facility] [address] [place] [address] Dr. Viri Strong Monocytes/100 WBC (Bld) 8.0 % Normal 1.7-12.0 [facility] Comment on above: Performed By: #### B MP, LIPID, AST, TSH, ALT #### [facility] [address] [place] [address] Dr. Viri Strong NEUT # 3.0 103/ul Normal 1.4-6.5 [facility] Comment on above: Performed By: #### B MP, LIPID, AST, TSH, ALT #### [facility] [address] [place] [address] Dr. Viri Strong Neutrophils/100 WBC (Bld) 60.7 % Normal 43.0-75.0 [facility] Comment on above: Performed By: #### B MP, LIPID, AST, TSH, ALT #### [facility] [address] [place] [address] Dr. Viri Strong Platelet mean volume (Bld) [Entitic vol] 9.8 fL Normal 9.5-13.5 [facility] Comment on above: Performed By: #### B MP, LIPID, AST, TSH, ALT #### [facility] [address] [place] [address] Dr. Viri Strong PLT 266 103/ul Normal 150-450 [facility] Comment on above: Performed By: #### B MP, LIPID, AST, TSH, ALT #### [facility] [address] [place] [address] Dr. Viri Strong RBC 3.65 106/ul Critically low 4.20-5.40 [facility] Comment on above: Performed By: #### B MP, LIPID, AST, TSH, ALT #### [facility] [address] [place] [address] Dr. Viri Strong WBC 5.0 103/ul Normal 4.0-11.0 [facility] Comment on above: Performed By: #### B MP, LIPID, AST, TSH, ALT #### [facility] [address] [place] [address] Dr. Viri Strong GLYCOHEMOGLOBIN A1Con 2021 ADA RECOMMENDATION SEE BELOW Normal [facility] Comment on above: Result Comment: ADA RECOMMENDED LIMIT 4.0 - 6.0 ADA THERAPEUTIC TARGET < 7.0 ACTION SUGGESTED > 7.0 Performed By: #### B MP, LIPID, AST, TSH, ALT #### [facility] [address] [place] [address] Dr. Viri Strong Glucose [Mass/Vol] 117 mg/dL Normal [facility] Comment on above: Performed By: #### B MP, LIPID, AST, TSH, ALT #### [facility] [address] [address] [address] Viri Strong HbA1c (Bld) [Mass fraction] 5.7 % Normal 4.5-6.2 [facility] Comment on above: Performed By: #### B MP, LIPID, AST, TSH, ALT #### [facility] [address] [place] [address] Dr. Viri Strong LIPID PROFILEon 10-26-2021 CHOL-HDL RATIO NORM SEE BELOW Normal [facility] Comment on above: Result Comment: 3.3 - 4.4 LOW RISK 4.4 - 7.1 AVERAGE RISK 7.1 - 11.0 MODERATE RISK >11.0 HIGH RISK Performed By: #### B MP, LIPID, AST, TSH, ALT #### [facility] [address] [place] [address] Dr. Viri Strong Cholesterol [Mass/Vol] 158 mg/dL Normal <=200 [facility] Comment on above: Performed By: #### B MP, LIPID, AST, TSH, ALT #### [facility] [address] [address] [address] Viri Strong Cholesterol in HDL [Mass/Vol] 86 mg/dL Critically high 40-60 [facility] Comment on above: Performed By: #### B MP, LIPID, AST, TSH, ALT #### [facility] [address] [address] [address] Viri Strong Cholesterol in LDL [Mass/Vol] 50.0 mg/dL Normal [facility] Comment on above: Performed By: #### B MP, LIPID, AST, TSH, ALT #### [facility] [address] [address] [address] Viri Strong Cholesterol.total/Chol esterol in HDL [Mass ratio] 1.8 {ratio} Normal [facility] Comment on above: Performed By: #### B MP, LIPID, AST, TSH, ALT #### [facility] [address] [address] [address] Viri Strong HDL NORMAL > or = 60 mg/dl - LOW CARDIOVASCULAR RISK <40 mg/dl - HIGH CARDIOVASCULAR RISK Normal [facility] Comment on above: Performed By: #### B MP, LIPID, AST, TSH, ALT #### [facility] [address] [address] [address] Viri Strong LDL CALC NORMAL SEE BELOW Normal [facility] Comment on above: Result Comment: <100 mg/dl OPTIMAL 100 - 129 mg/dl NEAR OR ABOVE OPTIMAL 130 - 159 mg/dl BORDERLINE HIGH 160 - 189 mg/dl HIGH >190 mg/dl VERY HIGH Performed By: #### B MP, LIPID, AST, TSH, ALT #### [facility] [address] [address] [address] Viri Strong Triglyceride [Mass/Vol] 110 mg/dL Normal <=150 [facility] Comment on above: Performed By: #### B MP, LIPID, AST, TSH, ALT #### [facility] [address] [address] [address] Viri Strong VLDL CALC 22.0 mg/dL Normal [facility] Comment on above: Performed By: #### B MP, LIPID, AST, TSH, ALT #### [facility] [address] [address] [address] Viri Strong PROF CHEM 8 (BAS METB)on Anion gap [Moles/Vol] 13.8 mmol/L Normal [facility] Comment on above: Performed By: #### B MP, LIPID, AST, TSH, ALT #### [facility] [address] [address] [address] Viri Strong Calcium [Mass/Vol] 9.3 mg/dL Normal 8.5-10.1 [facility] Comment on above: Performed By: #### B MP, LIPID, AST, TSH, ALT #### [facility] [address] [address] [address] Viri Strong Chloride [Moles/Vol] 92 mmol/L Critically low 98-107 [facility] Comment on above: Performed By: #### B MP, LIPID, AST, TSH, ALT #### [facility] [address] [address] [address] Viri Strong CO2 [Moles/Vol] 26.0 mmol/L Normal 21.0-32.0 [facility] Comment on above: Performed By: #### B MP, LIPID, AST, TSH, ALT #### [facility] [address] [address] [address] Viri Strong Creatinine [Mass/Vol] 1.15 mg/dL Critically high 0.55-1.02 [facility] Comment on above: Performed By: #### B MP, LIPID, AST, TSH, ALT #### [facility] [address] [address] [address] Viri Strong EGFR-AF COMORAN 56 mL/min/1.73m2 Critically low >=60 [facility] Comment on above: Performed By: #### B MP, LIPID, AST, TSH, ALT #### [facility] [address] [address] [address] Viri Strong EGFR-NON AF COMORAN 46 mL/min/1.73m2 Critically low >=60 [facility] Comment on above: Performed By: #### B MP, LIPID, AST, TSH, ALT #### [facility] [address] [address] [address] Viri Strong Glucose [Mass/Vol] 92 mg/dL Normal 74-106 [facility] Comment on above: Performed By: #### B MP, LIPID, AST, TSH, ALT #### [facility] [address] [address] [address] Viri Strong Potassium [Moles/Vol] 4.8 mmol/L Normal 3.5-5.1 [facility] Comment on above: Performed By: #### B MP, LIPID, AST, TSH, ALT #### [facility] [address] [address] [address] Viri Strong Sodium [Moles/Vol] 127 mmol/L Critically low 136-145 [facility] Comment on above: Performed By: #### B MP, LIPID, AST, TSH, ALT #### [facility] [address] [place] [address] Dr. Viri Strong Urea nitrogen [Mass/Vol] 19.0 mg/dL Critically high 7.0-18.0 [facility] Comment on above: Performed By: #### B MP, LIPID, AST, TSH, ALT #### [facility] [address] [place] [address] Dr. Viri Strong Urea nitrogen/Creatinine [Mass ratio] 16.5 mg/mg Normal [facility] Comment on above: Performed By: #### B MP, LIPID, AST, TSH, ALT #### [facility] [address] [place] [address] Dr. Viri Strong SGOTon 10-26-2021 AST [Catalytic activity/Vol] 15 U/L Normal 15-37 [facility] Comment on above: Performed By: #### B MP, LIPID, AST, TSH, ALT #### [facility] [address] [place] [address] Dr. Viri Strong SGPTon 10-26-2021 ALT [Catalytic activity/Vol] 25 U/L Normal 14-59 [facility] Comment on above: Performed By: #### B MP, LIPID, AST, TSH, ALT #### [facility] [address] [place] [address] Dr. Viri Strong TSHon 10-26-2021 TSH 1.833 uIU/mL Normal 0.358-3.740 [facility] Comment on above: Performed By: #### B MP, LIPID, AST, TSH, ALT #### [facility] [address] [place] [address] Dr. Viri Strong FREE LIGHT CHAINS PLUS RATIO on 06-03-2021 Free [place] Lt Chains,S 26.6 mg/L Critically high 3.3-19.4 [facility] Comment on above: Performed By: #### B MP, LIPID, AST, TSH, ALT #### [facility] [address] [address] [address] Viri Strong Free Lambda Lt Chains,S 19.6 mg/L Normal 5.7-26.3 [facility] Comment on above: Performed By: #### B MP, LIPID, AST, TSH, ALT #### [facility] [address] [place] [address] Dr. Viri Strong [place]/Lambda Ratio, S 1.36 Normal 0.26-1.65 [facility] Comment on above: Performed By: #### B MP, LIPID, AST, TSH, ALT #### [facility] [address] [place] [address] Dr. Viri Strong IMMUNOFIXATION (MONIKA), URINEo n 06-03-2021 MONIKA Interpretation:U Comment Normal [facility] Comment on above: Result Comment: No m onoclonality detected. Performed By: #### B MP, LIPID, AST, TSH, ALT #### [facility] [address] [place] [address] Dr. Viri Strong PROTEIN ELECTROPHERESIS URIN E RANDOMon 06-03-2021 Albumin, U 60.9 % Normal [facility] Comment on above: Performed By: #### U PTE #### [facility] [address] [place] [address] Dr. Viri Strong Alpha-1 Globulin U 3.9 % Normal [facility] Comment on above: Performed By: #### U PTE #### [facility] [address] [place] [address] Dr. Viri Strong Alpha-2 Glubulin U 8.2 % Normal [facility] Comment on above: Performed By: #### U PTE #### [facility] [address] [place] [address] Dr. Viri Strong Beta Globulin, U 17.3 % Normal [facility] Comment on above: Performed By: #### U PTE #### [facility] [address] [place] [address] Dr. Viri Strong Gamma Globulin U 9.7 % Normal [facility] Comment on above: Performed By: #### U PTE #### [facility] [address] [place] [address] Dr. Viri Strong M-Ciro, % Not Observed Normal Not Observed [facility] Comment on above: Performed By: #### U PTE #### [facility] [address] [place] [address] Dr. Viri Storng PDF . Normal [facility] Comment on above: Performed By: #### U PTE #### [facility] [address] [place] [address] Dr. Viri Strong Please note: Comment Normal [facility] Comment on above: Result Comment: Prot ein electrophoresis scan will follow via computer, mail, or chemist proteins delivery. Performed By: #### U PTE #### [facility] [address] [place] [address] Dr. Viri Strong Protein (U) [Mass/Vol] 12.2 mg/dL Normal Not Estab. [facility] Comment on above: Performed By: #### U PTE #### [facility] [address] [place] [address] Dr. Viri Strong HEP B SURFACE AGon HBsAg Screen Negative Normal Negative [facility] Comment on above: Performed By: #### B MP, LIPID, AST, TSH, ALT #### [facility] [address] [place] [address] Dr. Viri Strong HEPATITIS B SURFACE ANTIBODY , QUANTon 06-02-2021 Hepatitis B Surf AB Quant <3.1 Critically low Immunity>9.9 [facility] Comment on above: Result Comment: Stat us of Immunity Anti-HBs Level Inconsistent with Immunity 0.0 - 9.9 Consistent with Immunity >9.9 Performed By: #### B MP, LIPID, AST, TSH, ALT #### [facility] [address] [address] [address] Viri Strong HEPATITIS C VIRUS AB W/ REFL EX QUANTon 06-02-2021 HCV AB <0.1 Normal 0.0-0.9 [facility] Comment on above: Performed By: #### H CVPCRR #### [facility] [address] [address] [address] Viri Strong Interpretation: Comment Normal [facility] Comment on above: Result Comment: Nega tive Not infected with HCV, unless recent infection is suspected or other evidence exists to indicate HCV infection. Performed By: #### H CVPCRR #### [facility] [address] [address] [address] Viri Strong IMMUNOFIXATION (MONIKA), SERUMo n 06-02-2021 IMMUNOFIXATION RESULT Comment Normal [facility] Comment on above: Result Comment: No m onoclonality detected. Performed By: #### B MP, LIPID, AST, TSH, ALT #### [facility] [address] [place] [address] Dr. Viri Strong Immunoglobulin A, Qn, Serum 152 mg/dL Normal 64-422 [facility] Comment on above: Performed By: #### B MP, LIPID, AST, TSH, ALT #### [facility] [address] [place] [address] Dr. Viri Strong Immunoglobulin G, Qn, Serum 510 mg/dL Critically low 586-1602 [facility] Comment on above: Performed By: #### B MP, LIPID, AST, TSH, ALT #### [facility] [address] [place] [address] Dr. Viri Strong Immunoglobulin M, Qn, Serum 68 mg/dL Normal 26-217 [facility] Comment on above: Performed By: #### B MP, LIPID, AST, TSH, ALT #### [facility] [address] [place] [address] Dr. Viri Strong PROTEIN ELECTROPHERESISon Albumin [Mass/Vol] 4.0 g/dL Normal 2.9-4.4 [facility] Comment on above: Performed By: #### B MP, LIPID, AST, TSH, ALT #### [facility] [address] [place] [address] Dr. Viri Strong Albumin/Globulin [Mass ratio] 1.4 {ratio} Normal 0.7-1.7 [facility] Comment on above: Performed By: #### B MP, LIPID, AST, TSH, ALT #### [facility] [address] [place] [address] Dr. Viri Strong Vhcev-5-Qatwnczf 0.3 g/dL Normal 0.0-0.4 [facility] Comment on above: Performed By: #### B MP, LIPID, AST, TSH, ALT #### [facility] [address] [place] [address] Dr. Viri Strong Ootcp-3-Hlojdqso 0.9 g/dL Normal 0.4-1.0 [facility] Comment on above: Performed By: #### B MP, LIPID, AST, TSH, ALT #### [facility] [address] [place] [address] Dr. Viri Strong Beta Globulin 1.1 g/dL Normal 0.7-1.3 [facility] Comment on above: Performed By: #### B MP, LIPID, AST, TSH, ALT #### [facility] [address] [place] [address] Dr. Viri Strong Gamma Globulin 0.6 g/dL Normal 0.4-1.8 [facility] Comment on above: Performed By: #### B MP, LIPID, AST, TSH, ALT #### [facility] [address] [place] [address] Dr. Viri Strong Globulin (S) [Mass/Vol] 2.9 g/dL Normal 2.2-3.9 [facility] Comment on above: Performed By: #### B MP, LIPID, AST, TSH, ALT #### [facility] [address] [place] [address] Dr. Viri Strong M-Ciro Not Observed Normal Not Observed [facility] Comment on above: Performed By: #### B MP, LIPID, AST, TSH, ALT #### [facility] [address] [address] [address] Viri Strong PDF . Normal [facility] Comment on above: Performed By: #### B MP, LIPID, AST, TSH, ALT #### [facility] [address] [place] [address] Dr. Viri Strong Please note: Comment Normal [facility] Comment on above: Result Comment: Prot ein electrophoresis scan will follow via computer, mail, or chemist proteins delivery. Performed By: #### B MP, LIPID, AST, TSH, ALT #### [facility] [address] [place] [address] Dr. Viri Strong Protein [Mass/Vol] 6.9 g/dL Normal 6.0-8.5 [facility] Comment on above: Performed By: #### B MP, LIPID, AST, TSH, ALT #### [facility] [address] [place] [address] Dr. Viri Strong PTH INTACTon 06-02-2021 PTH, Intact 27 pg/mL Normal 15-65 [facility] Comment on above: Performed By: #### B MP, LIPID, AST, TSH, ALT #### [facility] [address] [place] [address] Dr. Viri Strong FERRITINon 06-01-2021 Ferritin [Mass/Vol] 48.0 ng/mL Normal 11.1-264.0 [facility] Comment on above: Performed By: #### B MP, LIPID, AST, TSH, ALT #### [facility] [address] [place] [address] Dr. Viri Strong HEMOGRAM AND PLATELon 2021 Hematocrit (Bld) [Volume fraction] 33.9 % Critically low 36.0-48.0 [facility] Comment on above: Performed By: #### B MP, LIPID, AST, TSH, ALT #### [facility] [address] [place] [address] Dr. Viri Strong Hemoglobin (Bld) [Mass/Vol] 11.1 g/dL Critically low 12.0-16.0 [facility] Comment on above: Performed By: #### B MP, LIPID, AST, TSH, ALT #### [facility] [address] [place] [address] Dr. Viri Strong MCH (RBC) [Entitic mass] 29.8 pg Normal 26.7-34.0 [facility] Comment on above: Performed By: #### B MP, LIPID, AST, TSH, ALT #### [facility] [address] [place] [address] Dr. Viri Strong MCHC (RBC) [Mass/Vol] 32.7 g/dL Normal 29.9-35.2 [facility] Comment on above: Performed By: #### B MP, LIPID, AST, TSH, ALT #### [facility] [address] [place] [address] Dr. Viri Strong MCV (RBC) [Entitic vol] 90.9 fL Normal 81.0-99.0 [facility] Comment on above: Performed By: #### B MP, LIPID, AST, TSH, ALT #### [facility] [address] [place] [address] Dr. Viri Strong PLT 240 103/ul Normal 150-450 [facility] Comment on above: Performed By: #### B MP, LIPID, AST, TSH, ALT #### [facility] [address] [place] [address] Dr. Viri Strong RBC 3.73 106/ul Critically low 4.20-5.40 [facility] Comment on above: Performed By: #### B MP, LIPID, AST, TSH, ALT #### [facility] [address] [place] [address] Dr. Viri Strong WBC 7.8 103/ul Normal 4.0-11.0 [facility] Comment on above: Performed By: #### B MP, LIPID, AST, TSH, ALT #### [facility] [address] [place] [address] Dr. Viri Strong IRON AND TIBCon 06-01-2021 % SATURATION 18.0 % Normal [facility] Comment on above: Performed By: #### B MP, LIPID, AST, TSH, ALT #### [facility] [address] [place] [address] Dr. Viri Strong Iron [Mass/Vol] 58.0 ug/dL Normal 37.0-170.0 [facility] Comment on above: Performed By: #### B MP, LIPID, AST, TSH, ALT #### [facility] [address] [place] [address] Dr. Viri Strong TIBC DIRECT 323.0 ug/dL Normal 261.0-497.0 [facility] Comment on above: Performed By: #### B MP, LIPID, AST, TSH, ALT #### [facility] [address] [place] [address] Dr. Viri Strong MAGNESIUMon 06-01-2021 Magnesium [Mass/Vol] 2.1 mg/dL Normal 1.6-2.3 [facility] Comment on above: Performed By: #### B MP, LIPID, AST, TSH, ALT #### [facility] [address] [place] [address] Dr. Viri Strong RENAL FUNCTION PANELon 06-01 Albumin [Mass/Vol] 4.4 g/dL Normal 3.4-5.0 [facility] Comment on above: Performed By: #### B MP, LIPID, AST, TSH, ALT #### [facility] [address] [place] [address] Dr. Viri Strong Calcium [Mass/Vol] 10.0 mg/dL Normal 8.5-10.1 [facility] Comment on above: Performed By: #### B MP, LIPID, AST, TSH, ALT #### [facility] [address] [place] [address] Dr. Viri Strong Chloride [Moles/Vol] 103 mmol/L Normal 98-107 [facility] Comment on above: Performed By: #### B MP, LIPID, AST, TSH, ALT #### [facility] [address] [place] [address] Dr. Viri Strong CO2 [Moles/Vol] 26.8 mmol/L Normal 22.0-30.0 [facility] Comment on above: Performed By: #### B MP, LIPID, AST, TSH, ALT #### [facility] [address] [place] [address] Dr. Viri Strong Creatinine [Mass/Vol] 1.18 mg/dL Critically high 0.52-1.04 [facility] Comment on above: Performed By: #### B MP, LIPID, AST, TSH, ALT #### [facility] [address] [place] [address] Dr. Viri Strong EGFR-AF COMORAN 54 mL/min/1.73m2 Critically low >=60 [facility] Comment on above: Performed By: #### B MP, LIPID, AST, TSH, ALT #### [facility] [address] [place] [address] Dr. Viri Strong EGFR-NON AF COMORAN 45 mL/min/1.73m2 Critically low >=60 [facility] Comment on above: Performed By: #### B MP, LIPID, AST, TSH, ALT #### [facility] [address] [place] [address] Dr. Viri Strong Glucose [Mass/Vol] 93 mg/dL Normal 74-106 [facility] Comment on above: Performed By: #### B MP, LIPID, AST, TSH, ALT #### [facility] [address] [place] [address] Dr. Viri Strong Phosphate [Mass/Vol] 4.1 mg/dL Normal 2.5-4.5 [facility] Comment on above: Performed By: #### B MP, LIPID, AST, TSH, ALT #### [facility] [address] [place] [address] Dr. Viri Strong Potassium [Moles/Vol] 4.8 mmol/L Normal 3.4-5.0 [facility] Comment on above: Performed By: #### B MP, LIPID, AST, TSH, ALT #### [facility] [address] [place] [address] Dr. Viri Strong Sodium [Moles/Vol] 140 mmol/L Normal 137-145 [facility] Comment on above: Performed By: #### B MP, LIPID, AST, TSH, ALT #### [facility] [address] [place] [address] Dr. Viri Strong Urea nitrogen [Mass/Vol] 24.0 mg/dL Critically high 7.0-18.0 [facility] Comment on above: Performed By: #### B MP, LIPID, AST, TSH, ALT #### [facility] [address] [place] [address] Dr. Viri Strong UA RANDOM W/MICROSCOPICon BACTERIA TRACE Abnormal NONE SEEN [facility] Comment on above: Performed By: #### B MP, LIPID, AST, TSH, ALT #### [facility] [address] [place] [address] Dr. Viri Strong Bilirubin Ql (U) Negative Normal NEGATIVE [facility] Comment on above: Performed By: #### B MP, LIPID, AST, TSH, ALT #### [facility] [address] [place] [address] Dr. Viri Strong CAST NONE SEEN Normal NONE SEEN [facility] Comment on above: Performed By: #### B MP, LIPID, AST, TSH, ALT #### [facility] [address] [place] [address] Dr. Viri Strong Clarity (U) CLEAR Normal CLEAR [facility] Comment on above: Performed By: #### B MP, LIPID, AST, TSH, ALT #### [facility] [address] [place] [address] Dr. Viri Strong Color (U) LT. YELLOW Normal YELLOW [facility] Comment on above: Performed By: #### B MP, LIPID, AST, TSH, ALT #### [facility] [address] [place] [address] Dr. Viri Strong Crystals LM Nom (Urine sed) NONE SEEN Normal NONE SEEN [facility] Comment on above: Performed By: #### B MP, LIPID, AST, TSH, ALT #### [facility] [address] [place] [address] Dr. Viri Strong Epithelial cells LM Ql (Urine sed) RARE Normal NONE SEEN /RARE [facility] Comment on above: Performed By: #### B MP, LIPID, AST, TSH, ALT #### [facility] [address] [address] [address] Viri Strong Glucose Ql (U) Negative Normal NEGATIVE [facility] Comment on above: Performed By: #### B MP, LIPID, AST, TSH, ALT #### [facility] [address] [place] [address] Dr. Viri Strong Hemoglobin Ql (U) Negative Normal NEGATIVE [facility] Comment on above: Performed By: #### B MP, LIPID, AST, TSH, ALT #### [facility] [address] [place] [address] Dr. Viri Strong Ketones Ql (U) Negative Normal NEGATIVE [facility] Comment on above: Performed By: #### B MP, LIPID, AST, TSH, ALT #### [facility] [address] [place] [address] Dr. Viri Strong LEUKOCYTES MODERATE Abnormal NEGATIVE [facility] Comment on above: Performed By: #### B MP, LIPID, AST, TSH, ALT #### [facility] [address] [place] [address] Dr. Viri Strong MUCOUS NONE SEEN Normal NONE SEEN [facility] Comment on above: Performed By: #### B MP, LIPID, AST, TSH, ALT #### [facility] [address] [place] [address] Dr. Viri Strong Nitrite Ql (U) Negative Normal NEGATIVE [facility] Comment on above: Performed By: #### B MP, LIPID, AST, TSH, ALT #### [facility] [address] [place] [address] Dr. Viri Strong pH (U) 6.0 [pH] Normal 5-9 [facility] Comment on above: Performed By: #### B MP, LIPID, AST, TSH, ALT #### [facility] [address] [place] [address] Dr. Viri Strong RBC 0-2 Normal 0-2 [facility] Comment on above: Performed By: #### B MP, LIPID, AST, TSH, ALT #### [facility] [address] [place] [address] Dr. Viri Strong SPEC GRAVITY 1.010 Normal 1.005-<=1.025 [facility] Comment on above: Performed By: #### B MP, LIPID, AST, TSH, ALT #### [facility] [address] [place] [address] Dr. Viri Strong UA PROTEIN Negative Normal NEGATIVE/ TRACE [facility] Comment on above: Performed By: #### B MP, LIPID, AST, TSH, ALT #### [facility] [address] [place] [address] Dr. Viri Strong Urobilinogen Qn (U) 0.2 {Alem'U}/dL Normal 0.2 - 1. 0 [facility] Comment on above: Performed By: #### B MP, LIPID, AST, TSH, ALT #### [facility] [address] [place] [address] Dr. Viri Strong WBC 2-5 Abnormal NONE SEEN The [facility] Comment on above: Performed By: #### B MP, LIPID, AST, TSH, ALT #### [facility] [address] [place] [address] Dr. Viri Strong URIC ACID SERUMon 06-01-2021 Urate [Mass/Vol] 7.4 mg/dL Critically high 2.5-6.2 [facility] Comment on above: Performed By: #### B MP, LIPID, AST, TSH, ALT #### [facility] [address] [place] [address] Dr. Viri Strong URINE T PROTEIN CREAT RATIOo n 06-01-2021 Protein (U) [Mass/Vol] 15.1 mg/dL Critically high <=12.0 [facility] Comment on above: Performed By: #### B MP, LIPID, AST, TSH, ALT #### [facility] [address] [place] [address] Dr. Viri Strong UR PROT CREAT RAT 0.29 Normal [facility] Comment on above: Performed By: #### B MP, LIPID, AST, TSH, ALT #### [facility] [address] [place] [address] Dr. Viri Strong URINE CREAT 52.27 mg/dL Normal 20.00-300.00 [facility] Comment on above: Performed By: #### B MP, LIPID, AST, TSH, ALT #### [facility] [address] [address] [address] Viri Strong VITAMIN D 25 OHon 06-01-2021 VIT D 25-OH 38.9 ng/mL Normal [facility] Comment on above: Performed By: #### B MP, LIPID, AST, TSH, ALT #### [facility] [address] [address] [address] Viri Strong VIT D RANGES SEE BELOW Normal [facility] Comment on above: Result Comment: <20 ng/mL Vit D deficient 20 - <30 ng/mL Vit D insufficient 30 - 100 ng/mL Vit D sufficient >100 ng/mL Potential Toxicity Performed By: #### B MP, LIPID, AST, TSH, ALT #### [facility] [address] [address] [address] Viri Strong Reminderson 06-28-2019 Reminders - From: Donna Fiore MA To: EU - Clinical; Sent: 01/16/2019 14:46:43 EST Show up: 04/16/2019 07:00:00 EST Subject: Ambulatory Reminder Due Date/Time: 04/30/2019 07:00:00 EST Reminder/Recall pt is scheduled for Renal US @[facility] on 04/15/18. Has f/u w/PRW on 05/01/18. Renal US & CXR scheduled for 04/15/18 8am @[facility]. No results in chart yet Per [place] central scheduling, appt was cancelled and Pt stated she would call back to reschedule. Appt was cancelled 04/12/2019. Pt being sent cert letter. See other message pt r/s for renal us and cxr 07/02/2019 @ 8:45am[facility] F/u appt 07/08/19 for results.LG Normal [facility] Reminderson 01-21-2019 Reminders - From: Nallely Fiore MAnna M To: EU - Recalls Michelle; Sent: 01/16/2019 14:06:32 EST Show up: 01/16/2019 07:00:00 EST Subject: needs Renal US & CXR Due Date/Time: 02/02/2019 07:00:00 EST Reminder/Recall pt needs scheduled for 2yr f/u w/Renal US & CXR. done Normal [facility] Vital Signs Date Time Vital Sign Value Performing Clinician Facility 07-13-2023 11:55-0400 Body height 160.02 cm [facility] 07-13-2023 11:55-0400 Body mass index (BMI) [Ratio] 33.3 kg/m2 [facility] 07-13-2023 11:55-0400 Body temperature 97.3 [degF] [facility] 07-13-2023 11:55-0400 Body weight 85.36 kg [facility] 07-13-2023 11:55-0400 Diastolic blood pressure 70 mm[Hg] [facility] 07-13-2023 11:55-0400 Heart rate 55 /min [facility] 07-13-2023 11:55-0400 Respiratory rate 16 /min [facility] 07-13-2023 11:55-0400 SaO2% (BldA) [Mass fraction] 95 % [facility] 07-13-2023 11:55-0400 Systolic blood pressure 102 mm[Hg] [facility] 04-18-2023 10:32-0500 Body height 160 cm [facility] Work Phone: [facility] 04-18-2023 10:32-0500 Body mass index (BMI) [Ratio] 33.48 kg/m2 [facility] Work Phone: [facility] 04-18-2023 10:32-0500 Body weight 85.73 kg [facility] Work Phone: [facility] 03-14-2023 15:20-0500 Body height 160.02 cm Aleyda Bourgeois Other [facility] Other 03-14-2023 15:20-0500 Body mass index (BMI) [Ratio] 33.19 kg/m2 Aleyda Dennis Other [facility] Other 03-14-2023 15:20-0500 Body temperature 96.6 [degF] Aleyda Dennis Other [facility] Other 03-14-2023 15:20-0500 Body weight 85 kg Aleyda Dennis Other [facility] Other 03-14-2023 15:20-0500 Diastolic blood pressure 75 mm[Hg] Aleyda Dennis Other [facility] Other 03-14-2023 15:20-0500 Respiratory rate 18 /min Aleyda Dennis Other [facility] Other 03-14-2023 15:20-0500 SaO2% (BldA) [Mass fraction] 96 % Aleyda Dennis Other [facility] Other 03-14-2023 15:20-0500 Systolic blood pressure 123 mm[Hg] Aleyda Dennis Other [facility] Other 03-07-2023 10:28-0500 Body height 160 [facility] 03-07-2023 10:28-0500 Body mass index (BMI) [Ratio] 33.3 kg/m2 [facility] 1 [facility] [email or web address] 03-07-2023 10:28-0500 Body weight 85.28 kg [facility] 1 [facility] [employer] [facility] 02-21-2023 10:40-0500 Body height 160.02 cm Aleyda Dennis Other [facility] Other 02-21-2023 10:40-0500 Body mass index (BMI) [Ratio] 33.9 kg/m2 Aleyda Dennis Other [facility] Other 02-21-2023 10:40-0500 Body temperature 96.2 [degF] Aleyda Dennis Other [facility] Other 02-21-2023 10:40-0500 Body weight 86.82 kg Aleyda Dennis Other [facility] Other 02-21-2023 10:40-0500 Diastolic blood pressure 71 mm[Hg] Aleyda Dennis Other [facility] Other 02-21-2023 10:40-0500 Respiratory rate 18 /min Aleyda Dennis Other [facility] Other 02-21-2023 10:40-0500 SaO2% (BldA) [Mass fraction] 96 % Aleyda Dennis Other [facility] Other 02-21-2023 10:40-0500 Systolic blood pressure 108 mm[Hg] Aleyda Dennis Other [facility] Other 08-04-2022 12:00-0400 Body height 160.02 cm Aleyda Dennis Other [facility] Other 08-04-2022 12:00-0400 Body mass index (BMI) [Ratio] 33.69 kg/m2 Aleyda Dennis Other [facility] Other 08-04-2022 12:00-0400 Body temperature 96.8 [degF] Aleyda Dennis Other [facility] Other 08-04-2022 12:00-0400 Body weight 86.27 kg Aleyda Dennis Other [facility] Other 08-04-2022 12:00-0400 Diastolic blood pressure 86 mm[Hg] Aleyda Dennis Other [facility] Other 08-04-2022 12:00-0400 Respiratory rate 18 /min Aleyda Dennis Other [facility] Other 08-04-2022 12:00-0400 SaO2% (BldA) [Mass fraction] 95 % Aleyda Dennis Other [facility] Other 08-04-2022 12:00-0400 Systolic blood pressure 136 mm[Hg] Aleyda Dennis Other [facility] Other 01-13-2022 14:00-0500 Body height 160.02 cm Aleyda Dennis Other [facility] Other 01-13-2022 14:00-0500 Body mass index (BMI) [Ratio] 31.99 kg/m2 Aleyda Dennis Other [facility] Other 01-13-2022 14:00-0500 Body temperature 96.3 [degF] Aleyda Dennis Other [facility] Other 01-13-2022 14:00-0500 Body weight 81.92 kg Aleyda Dennis Other [facility] Other 01-13-2022 14:00-0500 Diastolic blood pressure 77 mm[Hg] Aleyda Dennis Other [facility] Other 01-13-2022 14:00-0500 Respiratory rate 18 /min Aleyda Dennis Other [facility] Other 01-13-2022 14:00-0500 SaO2% (BldA) [Mass fraction] 96 % Aleyda Dennis Other [facility] Other 01-13-2022 14:00-0500 Systolic blood pressure 129 mm[Hg] Aleyda Dennis Other [facility] Other 12-10-2020 11:40-0400 Body height 160.02 cm Aleyda Dennis Other [facility] Other 12-10-2020 11:40-0400 Body mass index (BMI) [Ratio] 32.98 kg/m2 Aleyda Dennis Other [facility] Other 12-10-2020 11:40-0400 Body temperature 96 [degF] Aleyda Dennis Other [facility] Other 12-10-2020 11:40-0400 Body weight 84.46 kg Aleyda Dennis Other [facility] Other 12-10-2020 11:40-0400 Diastolic blood pressure 80 mm[Hg] Aleyda Dennis Other [facility] Other 12-10-2020 11:40-0400 Respiratory rate 18 /min Aleyda Dennis Other [facility] Other 12-10-2020 11:40-0400 SaO2% (BldA) [Mass fraction] 96 % Aleyda Dennis Other [facility] Other 12-10-2020 11:40-0400 Systolic blood pressure 139 mm[Hg] Aleyda Dennis Other [facility] Other Encounters Encounter Date Encounter Type Care Provider Facility Start: 08-11-2023 End: 08-11-2023 ambulatory JL PEPE Not Available Start: 08-09-2023 End: 08-09-2023 ambulatory BELEN PATRICK Not Available Start: 07-27-2023 End: 07-27-2023 ambulatory [facility] Start: 07-27-2023 End: 07-27-2023 ambulatory SHAIKH LYNN Not Available Start: 07-21-2023 End: 07-21-2023 Evaluation and management of inpatient HERMAN Smith [facility] Start: 07-19-2023 End: 07-20-2023 ambulatory [facility] Start: 07-13-2023 End: 07-13-2023 ambulatory [facility] Work Phone: Start: 07-13-2023 End: 07-13-2023 Patient encounter procedure [facility] Physician [facility] [place] Work Phone: Start: 07-11-2023 End: 07-12-2023 ambulatory [facility] Start: 07-06-2023 Non-patient / Non-visit [facility] Physician [facility] [employer] Work Phone: Start: 06-30-2023 End: 06-30-2023 ambulatory MISAEL PEREZ Not Available Start: 06-22-2023 End: 06-23-2023 ambulatory [facility] Start: 06-22-2023 Encounter for other preprocedural examination [facility] Start: 06-22-2023 End: 06-22-2023 ambulatory FELIPE SCHAEFER Not Available Start: 06-06-2023 End: 06-06-2023 ambulatory MISAEL CHRIS Not Available Start: 05-02-2023 End: 05-02-2023 ambulatory YULY VALDERRAMA Not Available Start: 04-19-2023 End: 04-20-2023 ambulatory MISAEL CHRIS [facility] Start: 04-19-2023 External Result Encounter Misael Perez MD Work Phone: [facility] External Department Unsolicited Start: 04-19-2023 External Result Encounter Misael Perez MD Work Phone: [facility] External Department Unsolicited Start: 04-18-2023 Telephone encounter Misael whitlock MD Work Phone: [facility] Start: 04-18-2023 End: 04-18-2023 Follow-up encounter Felipe Schaefer DO Work Phone: [facility] Comment on above: Chronic pain of righ t knee (Primary Dx); Arthritis of right knee; Complex tear of medial meniscus of right knee as current injury, initial encounter; Other tear of lateral meniscus of right knee as current injury, initial encounter Start: 04-18-2023 End: 04-18-2023 ambulatory FELIPE SCHAEFER Not Available Start: 04-12-2023 End: 04-12-2023 ambulatory LEO GARCIA Not Available Start: 04-10-2023 Bamboo flowsheet Leo Jordan g [employer] Work Phone: [facility] Start: 04-10-2023 Bamboo flowsheet Leo Jordan g [employer] Work Phone: [facility] Start: 04-10-2023 End: 04-10-2023 Office outpatient visit 15 minutes Leo Garcia [employer] Work Phone: [facility] Comment on above: Chronic pain of righ t knee (Primary Dx); Arthritis of right knee; Internal derangement of right knee Start: 04-10-2023 End: 04-10-2023 ambulatory LEO B APLING Not Available Start: 03-14-2023 End: 03-14-2023 ambulatory Aleyda Dennis Other [facility] Other Start: 03-14-2023 Office outpatient vi sit 15 minutes Aleyda Dennis [facility] Start: 03-13-2023 End: 03-13-2023 ambulatory Aleyda Dennis Other [facility] Other Start: 03-13-2023 Telephone encounter Aleyda Dennis [facility] Start: 03-08-2023 End: 03-09-2023 Evaluation and management [facility] Start: 03-07-2023 End: 03-07-2023 ambulatory h Pat Phone Call Provider 1 [facility] - Pre Admit Start: 02-22-2023 End: 02-22-2023 ambulatory LEO B APLING Not Available Start: 02-21-2023 (INJECTION) INJECTION Aleyda Dennis [facility] Start: 02-21-2023 End: 02-21-2023 ambulatory Aleyda Dennis Other [facility] Other Start: 02-20-2023 End: 02-20-2023 ambulatory Aleyda Dennis Other [facility] Other Start: 02-20-2023 Telephone encounter Aleyda Dennis [facility] Start: 11-23-2022 End: 11-23-2022 ambulatory Aleyda Dennis Other [facility] Other Start: 11-23-2022 Telephone encounter Aleyda Dennis [facility] Start: 10-25-2022 End: 10-25-2022 ambulatory Aleyda Dennis Other [facility] Other Start: 10-25-2022 Telephone encounter Aleyda Dennis [facility] Start: 09-12-2022 End: 09-12-2022 ambulatory Aleyda Dennis Other [facility] Other Start: 09-12-2022 Telephone encounter Aleyda Dennis [facility] Start: 08-05-2022 End: 08-05-2022 ambulatory Aleyda Dennis Other [facility] Other Start: 08-05-2022 Telephone encounter Aleyda Dennis [facility] Start: 08-04-2022 End: 08-04-2022 ambulatory Aleyda Dennis Other [facility] Other Start: 08-04-2022 Office outpatient vi sit 25 minutes Aleyda Dennis [facility] [place] Start: 04-25-2022 End: 04-26-[address] MISAEL PEREZ Facility:[facility] Start: 03-15-2022 End: 03-16-2022 ambulatory ALEYDA DENNIS Facility:[facility] Start: 03-08-2022 End: 03-08-2022 ambulatory Aziz Bakhous Other [facility] Other Start: 03-08-2022 Telephone encounter Aziz Bakhous [facility] Start: 01-31-2022 End: 02-01-[address] MISAEL PEREZ Facility:[facility] Start: 01-24-2022 End: 01-24-2022 ambulatory Aziz Bakhous Other [facility] Other Start: 01-24-2022 Telephone encounter Aziz Bakhous [facility] Start: 01-19-2022 End: 01-20-[address] MISAEL PEREZ Facility:[facility] Start: 01-13-2022 End: 01-13-2022 ambulatory Aleyda Dennis Other [facility] Other Start: 01-13-2022 Office outpatient vi sit 25 minutes Aleyda Dennis [facility] [place] Start: 01-03-2022 End: 01-04-2022 ambulatory ALEYDA DENNIS Facility:[facility] Start: 10-26-2021 End: 10-27-[address] MISAEL PEREZ Facility:[facility] Start: 09-07-2021 End: 09-07-2021 ambulatory Aleyda Dennis Other [facility] Other Start: 09-07-2021 Telephone encounter Aleyda Dennis [facility] Start: 06-07-2021 End: 06-07-2021 ambulatory Azamanda Coles Other [facility] Other Start: 06-07-2021 Telephone encounter Chandler Baileyniyah [facility] Start: 06-01-2021 End: 06-02-[address] MISAEL PEREZ Facility:[facility] Start: 03-09-2021 End: 03-09-2021 ambulatory Maxi Norton Other [facility] Other Start: 03-09-2021 Telephone encounter Maxi Ramosbandar [facility] Start: 01-27-2021 End: 01-27-2021 ambulatory Maxi Norton Other [facility] Other Start: 01-27-2021 Telephone encounter Martinbrandon Cierra [facility] Start: 12-10-2020 Office outpatient vi sit 25 minutes Aleyda Dennis [facility] [place] Start: 10-26-2017 End: 10-27-2017 Patient encounter DEFAULT PHYSICIAN Facility:[facility] Start: 10-16-2017 End: 10-17-2017 Patient encounter DEFAULT PHYSICIAN Facility:[facility] Procedures Date Procedure Procedure Detail Performing Clinician Start: 04-19-2023 Basic metabolic pane l calcium total Misael Perez MD Work Phone: Start: 04-19-2023 Complete blood count with white cell differential, automated Misael Perez MD Work Phone: Start: 03-08-2023 Colonoscopy [facility] 1 Start: 02-28-2023 Adult depression scr eening assessment [facility] 1 Plan of Treatment Date Care Activity Detail Author Start: 03-08-2033 Screening for malign ant neoplasm of colon [facility] Start: 03-08-2024 Adult BMI Screening Adult BMI Screen ing [facility] Start: 03-08-2024 Tobacco Screening Tobacco Screening [facility] Start: 02-29-2024 Depression Screening Depression Scre ening [facility] Start: 02-29-2024 Fall Risk Screening Fall Risk Screen ing [facility] Start: 04-18-2023 End: 04-18-2024 25-hydroxyvitamin D3 [Mass/volume] in Serum or Plasma Vitamin D 25 hydroxy Lab Routine Vitamin D deficiency Expected: 04/18/2023 (Approximate), Expires: 04/18/2024 [facility] Comment on above: Expected: 04/18/2023 (Approximate), Expires: 04/18/2024 Start: 04-18-2023 End: 04-18-2024 Albumin, urine, random Albumin, urine, random Lab Routine Type 2 diabetes mellitus with hyperglycemia, without long-term current use of insulin ([facility]) Expected: 04/18/2023 (Approximate), Expires: 04/18/2024 [facility] Comment on above: Expected: 04/18/2023 (Approximate), Expires: 04/18/2024 Start: 04-18-2023 End: 04-18-2024 Basic metabolic 1998 panel - Serum or Plasma Basic metabolic panel Lab Routine Encounter for long-term current use of medication Expected: 04/18/2023 (Approximate), Expires: 04/18/2024 [facility] Comment on above: Expected: 04/18/2023 (Approximate), Expires: 04/18/2024 Start: 04-18-2023 End: 04-18-2024 CBC W Auto Differential panel - Blood CBC and differential Lab Routine Encounter for long-term current use of medication Expected: 04/18/2023 (Approximate), Expires: 04/18/2024 [facility] Comment on above: Expected: 04/18/2023 (Approximate), Expires: 04/18/2024 Start: 04-18-2023 End: 04-18-2024 Hemoglobin A1c measurement Hemoglobin A1c Lab Routine Type 2 diabetes mellitus with hyperglycemia, without long-term current use of insulin ([facility]) Expected: 04/18/2023 (Approximate), Expires: 04/18/2024 [facility] Work Phone: Comment on above: Expected: 04/18/2023 (Approximate), Expires: 04/18/2024 Start: 04-18-2023 End: 04-18-2024 Hepatic function 2000 panel - Serum or Plasma Hepatic function panel Lab Routine Encounter for long-term current use of medication Expected: 04/18/2023 (Approximate), Expires: 04/18/2024 [facility] Comment on above: Expected: 04/18/2023 (Approximate), Expires: 04/18/2024 Start: 04-18-2023 End: 04-18-2024 Lipid 1996 panel - Serum or Plasma Lipid panel Lab Routine Dyslipidemia ([facility]) Expected: 04/18/2023 (Approximate), Expires: 04/18/2024 [facility] Comment on above: Expected: 04/18/2023 (Approximate), Expires: 04/18/2024 Start: 04-18-2023 End: 04-18-2024 Thyrotropin [Units/volume] in Serum or Plasma TSH Lab Routine Obesity (BMI 30-39.9) Expected: 04/18/2023 (Approximate), Expires: 04/18/2024 [facility] Comment on above: Expected: 04/18/2023 (Approximate), Expires: 04/18/2024 Start: 04-18-2023 End: 04-18-2023 Patient encounter procedure 04/18/2023 10:30 AM EST Office Visit [facility] [address] [place] [address] Felipe Schaefer DO [address] [facility] [address] [place] [address] [facility] Start: 04-10-2023 End: 04-10-2024 MR Knee - right WO contrast MR knee right wo IV contrast Imaging Routine Internal derangement of right knee Expected: 04/10/2023 (Approximate), Expires: 04/10/2024 [facility] Work Phone: Comment on above: Expected: 04/10/2023 (Approximate), Expires: 04/10/2024 Start: 04-10-2023 End: 04-10-2023 Patient encounter procedure 04/10/2023 9:30 AM EST Office Visit [facility] [address] [place] [id number] Leo Garcia NP [address] [place] [address] Chronic pain of right knee (Primary Dx); Arthritis of right knee [facility] Comment on above: Chronic pain of righ t knee (Primary Dx); Arthritis of right knee Start: 09-25-2018 Medicare Annual Wellness (AWV) Medicare Annual Wellness (AWV) [facility] Start: 09-25-2018 Medicare Annual Wellness Visit Medicare Annual Wellness Visit [facility] Start: 11-28-1966 DTaP,Tdap and Td Vaccines (1 - Tdap) DTaP,Tdap and Td Vaccines (1 - Tdap) [facility] Start: 11-28-1966 Urine screening for protein Diabetes: Urine Protein Screening [facility] Start: 11-28-1965 Adult BMI Follow Up Plan Adult BMI Follow Up Plan [facility] Start: 11-28-1957 Glaucoma screening Diabetes: R etinopathy Screening [facility] Start: 1947 Hemoglobin A1c measurement Diabetes: Hemoglobin A1C [facility] Start: 1947 Screening for malign ant neoplasm of colon [facility] Colonoscopy flx dx w/collj spec when pfrmd COLONOSCOPY DIAGNOSTIC / SCREENING Iron deficiency anemia, unspecified iron deficiency anemia type [facility] Renal function 2000 panel - Serum or Plasma [facility] Immunizations Immunization Date Immunization Notes Care Provider Fa cility 12-08-2022 ABRYSVO - Respirator y syncytial virus (RSV), vaccine, bivalent, protein subunit RSV prefusion F, diluent reconstituted, 0.5 mL, PF Felipe Schaefer DO Work Phone: [facility] 11-24-2022 Influenza, High-dose Seasonal, Quadrivalent, Preservative Free Felipe Schaefer DO Work Phone: [facility] 07-04-2022 hepatitis B vaccine, adult dosage Felipe Schaefer DO Work Phone: [facility] 02-04-2022 hepatitis B vaccine, adult dosage Felipe Schaefer DO Work Phone: [facility] 01-04-2022 hepatitis B vaccine, adult dosage Felipe Schaefer DO Work Phone: [facility] 11-28-2021 Influenza, Seasonal, Quadrivalent, Adjuvanted Felipe Schaefer DO Work Phone: [facility] 11-22-2021 zoster vaccine recombinant Felipe Schaefer DO Work Phone: [facility] 08-30-2021 zoster vaccine recombinant Felipe Schaefer DO Work Phone: [facility] 02-02-2021 Moderna SARS-CoV-2 Vaccination Felipe Smithston DO Work Phone: [facility] 06-05-2020 COVID-19, mRNA, LNP- S, PF, 100mcg/0.5mL Dose P[facility] 1 [facility] 05-08-2020 COVID-19, mRNA, LNP- S, PF, 100mcg/0.5mL Dose P[facility] 1 [facility] 12-31-2018 influenza, high dose seasonal, preservative-free Felipe Schaefer DO Work Phone: [facility] 12-21-2017 influenza, high dose seasonal, preservative-free Felipe Schaefer DO Work Phone: [facility] 01-19-2017 influenza, high dose seasonal, preservative-free Felipe Schaefer DO Work Phone: [facility] 12-27-2016 influenza, injectabl e, quadrivalent, preservative free Felipe Schaefer DO Work Phone: [facility] 12-14-2016 pneumococcal polysaccharide vaccine, 23 valent Felipe Schaefer DO Work Phone: [facility] 10-06-2016 pneumococcal conjuga te vaccine, 13 valent Felipe Schaefer DO Work Phone: [facility] 01-26-2015 influenza, high dose seasonal, preservative-free Felipe Schaefer DO Work Phone: [facility] 03-15-2012 influenza virus vaccine, whole virus Felipe Smithston DO Work Phone: [facility] Payers Date Payer Category Payer Unknown 2012 Medicare [id number] 1959 Medicare [id number] 2.1 [id number] 1959 Unknown [id number] 2. 16.840.1.807965.19 1947 Unknown [id number] 2.16.84 0.1.976478.3.579.2.593 1947 Unknown [id number] 2.16.84 0.1.532364.3.579.2.593 1947 Unknown [id number] 2.16.84 0.1.854113.3.579.2.593 1947 Unknown [id number] 2.16.84 0.1.088747.3.579.2.593 1947 Unknown [id number] 2.16.84 0.1.716218.3.579.2.593 1947 Unknown [id number] 2.16.84 0.1.143223.3.579.2.593 1947 Unknown [id number] 2.16.84 0.1.157555.3.579.2.593 1947 Unknown [id number] 2.16.8 40.1.724772.3.579.2.1286 1947 Unknown [id number] 2.16.8 40.1.842600.3.579.2.1286 1947 Unknown [id number] 2.16.8 40.1.883060.3.579.2.128 1947 Unknown [id number] 2.16.8 40.1.732185.3.579.2.128 1947 Unknown [id number] 2.16.8 40.1.794922.3.579.2.128 1947 Unknown [id number] 2.16.8 40.1.871577.3.579.2.128 1947 Unknown [id number] 2.16.8 40.1.405571.3.579.2.128 1947 Unknown [id number] 2.16.8 40.1.695983.3.579.2.128 1947 Unknown [id number] 2.16.84 0.1.756291.3.579.2.128 1947 Unknown [id number] 2.16.84 0.1.761080.3.579.2.128 1947 Unknown [id number] 2.16.84 0.1.490424.3.579.2.128 1947 Unknown [id number] 2.16.84 0.1.444983.3.579.2.1286 1947 Unknown [id number] 2.16.84 0.1.900234.3.579.2.125 1947 Unknown [id number] 2.16.84 0.1.004964.3.579.2.1259 1947 Unknown [id number] 2.16.84 0.1.161427.3.579.2.125 1947 Unknown [id number] 2.16.84 0.1.149843.3.579.2.1259 1947 Unknown [id number] 2.16.84 0.1.825415.3.579.2.1259 1947 Unknown [id number] 2.16.84 0.1.490575.3.579.2.1259 1947 Unknown [id number] 2.16.84 0.1.076024.3.579.2.1258 1947 Unknown [id number] 2.16.84 0.1.582159.3.579.2.9 1947 Unknown [id number] 2.16.84 0.1.305737.3.579.2.1258 1947 Unknown [id number] 2.16.84 0.1.694397.3.579.2.1258 1947 Unknown [id number] 2.16.84 0.1.551737.3.579.2.1258 1947 Unknown [id number] 2.16.84 0.1.284179.3.579.2.1258 1947 Unknown [id number] 2.16.84 0.1.832155.3.579.2.1258 1947 Unknown [id number] 2.16.840 .1.732792.3.579.2.1259 Medicare Medicare [id number] Self-pay Self Pay [id number] Unknown [facility] Health Claims [id number] Social History Date Type Detail Facility Unknown if ever smoked [facility] Other Start: 03-08-2023 End: 04-18-2023 Sex Assigned At [email or web address] Other Start: 02-28-2023 End: 07-13-2023 Tobacco smoking status WAIS Ex-smoker [facility] End: 03-06-2007 History of tobacco use Current smoker [facility] Start: 08-15-2022 End: 02-28-2023 Tobacco use and exposure Smokeless tobacco non-user [facility] Start: 03-07-2023 Alcohol intake Current drinke r of alcohol (finding) [facility] Start: 03-08-2023 End: 04-18-2023 History of Social function [facility] Adolescent depressio n screening assessment 0 [facility] Start: 03-07-2023 Alcohol Comment social [facility] Start: 1945 Sex Assigned At Not on file P [facility] End: 03-06-2007 History of tobacco use Cigarette Smoker [facility] Start: 02-22-2023 End: 04-18-2023 Alcohol intake Ex-drinker (finding) [facility] Start: 1945 Sex Assigned At Female F [facility] Clinical Notes 12-10-2020 to 04-18-2023 Telephone Encounter - Misael Perez MD - 04/18/2023 3:32 PM ESTTelephone Encounter - Misael Perez MD - 04/18/2023 3:32 PM Nilsa Schaefer DO - 04/18/2023 10:30 AM EST Note Date & Type Note Facility 04-18-2023 Telephone encount er Note Patient due for all labs and in chart. Please print order or send to lab. If print albumin needs printed separately from other labs. MAN [facility] 04-18-2023 Miscellaneous Notes Formattin g of this note might be different from the original. Patient due for all labs and in chart. Please print order or send to lab. If print albumin needs printed separately from other labs. MAN documented in this encounter [facility] 04-18-2023 History of Presen t illness Narrative Images from the original note were not included. HISTORY OF PRESENT ILLNESS: Armando Reyes is an 77 y.o. @ female. Chief complaint RT knee s/p MRI RT Knee: here for MRI results [facility] 04/12 Depo Medrol injection RT knee (02/22/23) with 50% improvement which lasted 1 1/2 weeks. Right knee pain x 5 years (2018) and getting worse over time. Denies new injury Constant pain posterior and lateral, varies in intensity. Describes as strong ache and at times sharp. Radiates in lower leg and thigh. Denies giving out sensation. Pain at rest 6/10. Pain at worst 10/10 in mornings. Denies locking or catching Admits waking at night. Notes she has used a walker if she is going to walk a lot. There is stiffness and loss of motion after prolonged sitting.+ limping. Difficulty with stairs and prolonged activity. Taking percocet for pain for her neck and shoulder and now her knee per Dr. Perez. Not taking anything else for the pain. Prior treatment(s) included: aspercreme, percocet (neck/shoulder), unable to take NSAIDs due to kidney, a cane, rest, depo medrol 03/30/17, xrays 03/30/17 [facility], lidocaine patches, xrays [facility] 09/15/21, kenalog injection 09/15/21, depo medrol 09/27/21, depo medrol 08/15/22, depo medrol injection 02/22/23, MRI [facility] 04/12/23 MEDICATION: Current Outpatient Medications on File Prior to Visit Medication Sig Dispense Refill alendronate (Fosamax) 70 MG tablet 1 tablet Orally once a week amLODIPine (Norvasc) 10 MG tablet 1 (one) time each day at the same time. atorvastatin (Lipitor) 10 MG tablet Take 1 tablet (10 mg) by mouth in the morning. 30 tablet 11 cholecalciferol (Vitamin D-3) 50 MCG (2000 UT) capsule 1 capsule 1 (one) time each day at the same time. clonazePAM (KlonoPIN) 0.5 MG tablet 1 tablet at bedtime Orally 1-2 times per day ferrous sulfate 325 (65 Fe) MG tablet 1 (one) time each day at the same time. furosemide (Lasix) 40 MG tablet gabapentin (Neurontin) 100 MG capsule Take 1 capsule (100 mg) by mouth every 8 (eight) hours 90 capsule 2 lisinopril 5 MG tablet 1 (one) time each day at the same time. oxyCODONE-acetaminophen (Percocet) 5-325 MG tablet Take 1 tablet by mouth 4 (four) times a day as needed for severe pain 120 tablet 0 pantoprazole (Protonix) 40 MG EC tablet 1 (one) time each day at the same time. No current facility-administered medications on file prior to visit. MEDICAL HISTORY: Past Medical History: Diagnosis Date Anemia Diabetes (CMS/HCC) GERD (gastroesophageal reflux disease) History of kidney cancer RT HTN (hypertension) (CMS/HCC) Kidney disease ALLERGIES: Allergies Allergen Reactions Latex Unknown Ketorolac Rash Other Reaction(s): Facial Swelling Nsaids Swelling and Rash VITALS: Visit Vitals Ht 5' 3 Wt 189 lb BMI 33.48 kg/m Smoking Status Former BSA 1.95 m PHYSICAL EXAM: Ortho Exam RIGHT KNEE ROM 10-100 Crepitus Global tenderness IMAGING: Notes :xrays AP B/L WB and lat of the right knee demonstrates Narrowing of the medial lateral compartments of bilateral knees with marginal osteophyte formation and subchondral sclerosis. There is also chondrocalcinosis noted bilateral knees. There are no fractures detected. Neutral alignment is noted. Impressions: Osteoarthritis bilateral knees FELIPE SCHAEFER 09/15/2021 11:54:09 AM > I reviewed an MRI of the right knee dated April 12, 2023 from the [facility]. There is thinning of articular cartilage and loss of articular cartilage consistent with arthritis in all 3 compartments. There is a tear of the medial and lateral meniscus. There are marginal osteophytes both medially and laterally in extrusion of the medial meniscus ASSESSMENT: ICD-10-CM 1. Chronic pain of right knee M25.561 G89.29 2. Arthritis of right knee M17.11 3. Complex tear of medial meniscus of right knee as current injury, initial encounter S83.231A 4. Other tear of lateral meniscus of right knee as current injury, initial encounter S83.281A PLAN: I explained the diagnosis and reviewed treatment options including injections vs surgery. I answered all of the patient's questions. Candy Schaefer D.O. documented in this encounter [facility] 04-10-2023 History of Presen t illness Narrative Subjective Patient ID: Armando Reyes is a 77 y.o. female. RT Knee 6 weeks 5 days s/p Depo Medrol injection RT knee (02/22/23) with 50% improvement which lasted 1 1/2 weeks. Denies new injury Constant pain posterior and lateral. Occas radiates in lower leg and thigh. Right knee pain x 5 years (2018) NKI. Denies giving out sensation. Taking percocet for pain for her neck and shoulder and now her knee per Dr. Perez. Not taking anything else for the pain. Pain at rest 6/10. Pain at worst 10/10 in mornings. Denies swelling. Denies locking or catching Admits waking at night. Notes she has used a walker if she is going to walk a lot. There is stiffness and loss of motion after prolonged sitting. Associated symptoms limping. Prior treatment(s) included: aspercreme, percocet (neck/shoulder), unable to take NSAIDs due to kidney, a cane, rest, depo medrol 03/30/17, xrays 03/30/17 [facility], lidocaine patches, xrays [facility] 09/15/21, kenalog injection 09/15/21, depo medrol 09/27/21, depo medrol 08/15/22, depo medrol injection 02/22/23 Objective Right Knee Exam Tests Quang: Lateral - positive Knee Musculoskeletal Exam Inspection Right Erythema: none Effusion: mild Edema comment: +1 pitting edema in lower leg Palpation Right Tenderness: present Lateral joint line: moderate Range of Motion Right Active extension: 0 Active flexion: 105 Strength Right Extension: 4-/5. Extension is affected by pain. Flexion: 4-/5. Flexion is affected by pain. Instability Right Lateral Quang test: positive Assessment/Plan Encounter Diagnoses: ICD-10-CM 1. Chronic pain of right knee M25.561 G89.29 2. Arthritis of right knee M17.11 LORazepam (Ativan) 0.5 MG tablet 3. Internal derangement of right knee M23.91 LORazepam (Ativan) 0.5 MG tablet MR knee right wo IV contrast discussion of due to failure of conservative treatment would recommend an MRI of the right knee without contrast to be done at [facility] [place], activities as tolerated, f/u s/p MRI documented in this encounter [facility] 03-14-2023 Evaluation note Encounter Date Diagnosis Assessment Notes Mar, Hypertensive chronic kidney disease with stage 1 through stage 4 chronic kidney disease, or unspecified chronic kidney disease (ICD-10 - I12.9) Her blood pressure is controlled but she appears to be euvolemic. Continue Lasix from 40 mg daily. Monitor weight daily and if she gains 2 pounds in 24 hours or 5 pounds 1 week then call office. Continue current dose of the amlodipine. Mar, Chronic kidney disease, stage 3 unspecified (ICD-10 - N18.30) Her baseline serum creatinine is 1.4-1.7 mg/dl. Her repeat renal ultrasound showed multiple cysts in the left kidney and a right nephrectomy. I have d/w the importance of good DM and HTN control to slow down the progression of her CKD Mar, Type 2 diabetes mellitus with diabetic chronic kidney disease (ICD-10 - E11.22) Her Blood sugars are within the acceptable range. I have advised her to continue to work with her PCP. She is currently on diet control. Continue lisinopril for renal protection but will stop if she continues to have a worsening renal function or high potassium. She did not tolerate Kerendia. Mar, Anemia in chronic kidney disease (ICD-10 - D63.1) Hemoglobin has improved and has adequate iron stores. Will continue oral iron. Will hold the Procrit for now. Advised her to avoid aspirin. She can take Tylenol for headache. Mar, Renal cancer (ICD-10 - C64.9) She has h/o right nephrectomy due to renal cancer. She follows with Dr. Michelle for left renal mass. She had renal US in December 2016 which showed multiple renal cyst in left kidney with no suscipious finding. Her left renal mass was not visible Mar, Proteinuria (ICD-10 - R80.9) She has proteinuria likely due to the diabetic kidney disease. Her proteinuria has declined with the lisinopril. She has unremarkable w/u for hepatitis MPGN or paraproteinemia. Continue oral lisinopril. I have advised to have Hep B vaccine with PCP. Mar, Vitamin D deficiency (ICD-10 - E55.9) Continue oral Vit D Mar, Hyperuricemia (ICD-10 - E79.0) She has hyperuricemia due to the CKD. No need for any medication for now. Mar, Hyperkalemia (ICD-10 - E87.5) She had hyperkalemia likely due to the CKD and lisinopril. Her potassium is back to normal. Advised a low potassium diet and provide information about it. [facility] Other 01-02-2024 Miscellaneous Notes* Perioperative Nursing Note - Nani Braun RN - 03/07/2023 1:00 PM EST Preoperative Education Checklist- General Surgery date: 03/08/23 Surgery time: 1030 Arrival time: 929 1. Bring a photo ID and your insurance card with you the day of surgery. You will check in at the main lobby of the [facility]- registration desk is straight ahead as soon as you walk in. Tell them you are here for surgery. 2. If you have a Living Will/Durable Power of Comp Field Case Manager for Health Care that is not on [...] after you have bathed. 5. NO nail sammarinese/acrylic on at least one finger. If you are having a hand, wrist or foot surgery then all nail sammarinese and artificial/acrylic nails must be removed from [...] least 8 hours and marijuana for 24 hoursprior to arrival for your surgery. 16. If [...] please call the Preadmission Testing office at [phone], Mon.-Fri. 7 a.m.-3 p.m. Leave a voicemail [...] days prior to [facility]* Perioperative Nursing Note - Nani Braun RN - 03/07/2023 1:00 PM EST Preoperative Education Checklist- General Surgery date: 03/08/23 Surgery time: 1030 Arrival time: 929 1. Bring a photo ID and your insurance card with you the day of surgery. You will check in at the main lobby of the [facility]- registration desk is straight ahead as soon as you walk in. Tell them you are here for surgery. 2. If you have a Living Will/Durable Power of Comp Field Case Manager for Health Care that is not on [...] after you have bathed. 5. NO nail sammarinese/acrylic on at least one finger. If you are having a hand, wrist or foot surgery then all nail sammarinese and artificial/acrylic nails must be removed from [...] least 8 hours and marijuana for 24 hoursprior to arrival for your surgery. 16. If [...] please call the Preadmission Testing office at [phone], Mon.-Fri. 7 a.m.-3 p.m. Leave a voicemail [...] Stop taking 0 days prior to procedure [facility]12-19-2023 Evaluation note* Encounter Date Diagnosis Assessment Notes Treatment Notes Treatment Clinical Notes Feb, Chronic kidney disease, stage 3 unspecified (ICD-10 - N18.30) Feb, Anemia in chronic kidney disease (ICD-10 - D63.1) [facility] Other 09-20-2023 Evaluation note* Encounter Date Diagnosis Assessment Notes Treatment Notes Treatment Clinical Notes Nov, Hypertensive chronic kidney disease with stage 1 through stage 4 chronic kidney disease, or unspecified chronic kidney disease (ICD-10 - I12.9) [facility] Other 08-22-2023 Evaluation note* Encounter Date Diagnosis Assessment Notes Treatment Notes Treatment Clinical Notes Oct, Hypertensive chronic kidney disease with stage 1 through stage 4 chronic kidney disease, or unspecified chronic kidney disease (ICD-10 - I12.9) [facility] Other 07-10-2023 Evaluation note* Encounter Date Diagnosis Assessment Notes Treatment Notes Treatment Clinical Notes Sep, Proteinuria (ICD-10 - R80.9) [facility] Other 06-01-2023 Evaluation note* Encounter Date Diagnosis [...] potassium diet and provide information about it. [facility] Other 01-03-2023 Evaluation note* Encounter Date Diagnosis Assessment Notes Treatment Notes Treatment Clinical Notes Mar, Proteinuria (ICD-10 - R80.9) [facility] Other 11-10-2022 Evaluation note* Encounter Date Diagnosis [...] due for it and persistent deficiency anemia. Jan,2 Renal cancer (ICD-10 - C64.9) She has [...] No need for any medication for now. [facility] Other 07-05-2022 Evaluation note* Encounter Date Diagnosis Assessment Notes Treatment Notes Treatment Clinical Notes Sep, Hypertensive chronic kidney disease with stage 1 through stage 4 chronic kidney disease, or unspecified chronic kidney disease (ICD-10 - I12.9) [facility] Other 04-04-2022 Evaluation note* Encounter Date Diagnosis Assessment Notes Treatment Notes Treatment Clinical Notes Jun, Proteinuria (ICD-10 - R80.9) [facility] Other 01-04-2022 Evaluation note* Encounter Date Diagnosis Assessment Notes Treatment Notes Treatment Clinical Notes Mar, Hypertensive chronic kidney disease with stage 1 through stage 4 chronic kidney disease, or unspecified chronic kidney disease (ICD-10 - I12.9) [facility] Other 11-24-2021 Evaluation note* Encounter Date Diagnosis Assessment Notes Treatment Notes Treatment Clinical Notes Jan, Hypertensive chronic kidney disease with stage 1 through stage 4 chronic kidney disease, or unspecified chronic kidney disease (ICD-10 - I12.9) [facility] Other 10-07-2021 Evaluation note* Encounter Date Diagnosis Assessment Notes Treatment Notes Treatment Clinical Notes 07 Oct, 2021 Hypertensive chronic kidney disease with stage 1 [...] (ICD-10 - E55.9) Continue oral Vit D [place] [employer] Other Evaluation noteNo [employer]Nort [employer] Other Evaluation note* Diagnosis Chronic pain of right knee- Primary Arthritis of right knee Internal derangement of right knee documented in this encounter [facility] HealthcareEvaluation note* Diagnosis Chronic pain of right knee- Primary Arthritis of right knee Complex tear of medial meniscus of right knee as current injury, initial encounter Other tear of lateral meniscus of right knee as current injury, initial encounter documented in this encounter [facility]* Diagnosis Dyslipidemia ([facility])- Primary Other and unspecified hyperlipidemia Vitamin D deficiency Type 2 diabetes mellitus with hyperglycemia, without long-term current use of insulin ([facility]) Encounter for long-term current use of medication Obesity (BMI 30-39.9) documented in this encounter [facility] HealthcareEvaluation note* Diagnosis Onset Date Resolution Status Anemia of renal disease acut e CKD (chronic kidney disease) stage 3, GFR 30-59 ml/min acute Hyperkalemia acute [id number] acute Hyperuricemia acute Proteinuria acute Renal cancer acute Type 2 diabetes mellitus wit h diabetic chronic kidney disease acute Vitamin D deficiency acute [facility] Work Phone: History general Narrative - Reported* Type Description Date [...] SURGERY Surgical History OVARY, TUBUBES & APPENDIX 1980 Surgical History UTERUS REMOVED 1974 Surgical History vein ligation 2019 Hospitalization History SEE ABOVE [facility] Other [employer] general Narrative - Reported* Type Description Date [...] SURGERY Surgical History OVARY, TUBUBES & APPENDIX 1980 Surgical History UTERUS REMOVED 1974 Surgical History vein ligation 2019 Hospitalization History SEE ABOVE Hospitalization History ACUTE KIDNEY INJ URY, CHF, ACUTE METABOLIC ENCEPHALOPATHY, COMPLICATED URINARY TRACT INFECTION 11/21/2022 [facility] Other history general Narrative - Reported* Type Description Date [...] SURGERY Surgical History OVARY, TUBUBES & APPENDIX 1980 Surgical History UTERUS REMOVED 1974 Surgical History vein ligation 2019 Surgical History EGD, BIOPSY OF STOMACH, COLONOS COPY X 1 POLYP 03/08/2023 Hospitalization History SEE ABOVE Hospitalization History ACUTE KIDNEY INJ URY, CHF, ACUTE METABOLIC ENCEPHALOPATHY, COMPLICATED URINARY TRACT INFECTION 11/21/2022 [facility] Other InstructionsNot on filedocumented in this encounter [facility] Purpose Family History No Family History Records Found Relationship Condition Age at Onset Recorded Date/T charles brother Diabetes mellitus Unknown Hypertension Unknown father Unknown Not Specified Unknown sister Unknown Advance Directives No Advanced Directives Records Found Advance Directive Response Recorded Date/ Time Advance Directives No July 13, 2023 11:41am Reason for Referral Specialty Diagnoses / Procedures Referred By Contac t Referred To Contact Radiology Diagnoses Internal derangement of right knee Procedures MR knee right wo IV contrast Leo Garcia NP [address] [place] [address] Referral ID Status Reason Start Date Expiration Date V isits Requested Visits Authorized [id number] Pending Review 04/10/2023 10/07/2023 1 1 Chief Complaint and Reason for Visit Chief Complaint RENAL F/U Reason for Visit Anemia of renal dise ase CKD (chronic kidney disease) stage 3, GFR 30-59 ml/min Hyperkalemia [id number] Hyperuricemia Proteinuria Renal cancer Type 2 diabetes mellitus with diabetic chronic kidney disease Vitamin D deficiency Additional Source Comments INFORMATION SOURCE (unrecogn ized section and content) DATE CREATED AUTHOR 10/28/2017 [facility] DATE CREATED AUTHOR AUTHOR'S ORGANIZ ATION 07/21/2019 [facility] DATE CREATED AUTHOR AUTHOR'S ORGANIZ ATION 04/29/2022 [facility] DATE CREATED AUTHOR AUTHOR'S ORGANIZ ATION 07/21/2023 [facility] DATE CREATED AUTHOR AUTHOR'S ORGANIZ ATION 08/12/2023 [facility] dical Specialists EPIC REASON FOR VISIT (unrecogniz ed section and content) Reason Comments Pain Reason Comments Follow-up Care Teams (unrecognized sec tion and content) Safety Trainer Relationship Specialty Start Date End Date Misael Perez MD [address] [place] [phone] PCP - General Family Medicine 04/06/23 Safety Trainer Relationship Specialty Start Date End Date Misael Perez MD [address] [place] [phone] PCP - General Family Medicine 04/06/23 Safety Trainer Relationship Specialty Start Date End Date Misael Perez MD [address] [place] [phone] PCP - [facility] Medicine 04/06/23 Safety Trainer Relationship Specialty Start Date End Date Misael Perez MD [address] [place] [phone] PCP - [facility] Medicine 04/06/23 Safety Trainer Relationship Specialty Start Date End Date Misael Perez MD [address] [place] [phone] PCP - [facility] Medicine 04/06/23 Team Status: Active Member Role Status Dates Yan Ramos DO Primary Care Provider Active Team Status: Active Member Role Status Dates Yan Ramos DO Primary Care Provider Active Start: July 06, 2023 Aleyda Bourgeois MD Attending Provider Active Start : July 06, 2023 Team Status: Inactive Member Role Status Dates Yan Ramos DO Primary Care Provider Active Start: July 13, 2023 End: July 13, 2023 Aleyda Bourgeois MD Attending Provider Active Start : July 13, 2023 End: July 13, 2023 Goals (unrecognized section and content) Goals may be documented in a n alternate section FOR RECORDS PERTAINING TO PATIENTS WHO ARE [...] BE BASED ON THE PRIMARY CLINICAL RECORDS. [facility] [employer] [facility]. provides no warranty or guarantee of the accuracy or completeness of information in this document.
[2023-08-14 11:02] LABS: Hemoglobin 7.2 g/dL (12.0-16.0); Mean Corpuscular HGB Conc 30.8 g/dL (29.9-35.2); Mean Corpuscular Hemoglobin 28.9 pg (26.7-34.0); Platelet Count 290 10^3/uL (150-450); Red Blood Count 2.49 10^6/uL (4.20-5.40)
[2023-08-14 11:19] LABS: Percent Iron Saturation 13.3 %
[2023-08-14 11:22] LABS: Albumin Level 3.6 g/dL (3.4-5.0); Anion Gap 14.5; BUN Creatinine Ratio 20.4; Calcium 8.4 mg/dL (8.5-10.1); Carbon Dioxide 23.8 mmol/L (21.0-32.0); Chloride 101 mmol/L (98-107); Estimated GFR (African America 42 (>=60); Estimated GFR (Non-African Ame 35 (>=60); Glucose 98 mg/dL (74-106); Phosphorus 4.3 mg/dL (2.6-4.7); Potassium 5.3 mmol/L (3.5-5.1); Sodium 134 mmol/L (136-145)
[2023-08-14 14:06] LABS: Hematocrit 23.4 % (36.0-48.0)
== END 2023-08-14 10:30 | disposition home or self-care (01) ==
LOC: LAB 10:31
PROVIDERS: PCP Family Medicine; Visit Provider Internal Medicine
DX: E11.22 Type 2 diabetes mellitus with diabetic chronic kidney disease (principal); N18.30 Chronic kidney disease, stage 3 unspecified; N18.9 Chronic kidney disease, unspecified; D63.1 Anemia in chronic kidney disease; I12.9 Hypertensive chronic kidney disease with stage 1 through stage 4 chronic kidney disease, or unspecified chronic kidney disease; E87.5 Hyperkalemia; E55.9 Vitamin D deficiency, unspecified; C64.9 Malignant neoplasm of unspecified kidney, except renal pelvis; R80.9 Proteinuria, unspecified
CPT/HCPCS: 36415; 80069; 82728; 83540; 83550; 85027

== ENCOUNTER 2023-08-16 12:35 | Outpatient (OUT) | payer MEDICARE, OTHER, SELFPAY ==
--- OUTSIDE RECORDS SUMMARY | 2023-08-16 12:53 | XMS_ITS | CCD ---
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 Name Role Phone PHYSICIAN, DEFAULT Unavailable Unavailable PHYSICIAN, DEFAULT Unavailable Unavailable PHYSICIAN, DEFAULT Unavailable Unavailable PHYSICIAN, DEFAULT Unavailable Unavailable Dennis, Aleyda Unavailable Maxi Norton Unavailable Chandler Arauz Unavailable NADNIKI, DR MISAEL Acuna Consulting Unavailable NADERER, DR [...] ALEYDA Attending Unavailable Unavailable Primary Care Provider Alan Perez MD, Misael Primary Care Provider FELIPE SCHAEFER Referring Unavailable CHRIS, MISAEL Primary Care Unavailable FELIPE SCHAEFER Referring Unavailable MISAEL PEREZ Primary Care Unavailable MICHAELA YUAN Referring Unavailable OLIVE, FELIPE Acuna Referring Unavailable [...] Care Unavailable YUHAS, MICHAELA Leone Attending Unavailable YUHAS, MICHAELA Leone Referring Unavailable NADERER, MISAEL Referring Unavailable NADERER, MISAEL Primary Care Unavailable HERMAN JORGE Attending Unavailable NADERER, MISAEL Primary Care Unavailable APLING, VALERY Ayala Attending Unavailable APLING, VALERY Ayala Referring Unavailable OLIVE, FELIPE Acuna Attending Unavailable YULY VALDERRAMA Attending Unavailable OLIVE, FELIPE Acuna Referring Unavailable NADERER, MISAEL Attending Unavailable OLIVE, FELIPE Acuna Attending Unavailable APLING, VALERY Ayala Attending Unavailable OLIVE, FELIPE Acuna Referring Unavailable NADEREJohn, MISAEL Attending Unavailable SHAIKH BAILEY Attending Unavailable OLIVE, FELIPE Acuna Attending Unavailable BELEN PATRICK Attending Unavailable OLIVE, FELIPE Acuna Referring Unavailable JL PEPE Attending Unavailable OLIVE, FELIPE Acuna Referring Unavailable MD Misael Perez Primary Care Provider DO Liliana Kaba Emergency Provider [phone] MD Meagan Roman Admit Provider MD Meagan Roman Attending Provider MD Kuldeep Almazan Other Provider MD Aleyda Bourgeois Other Provider Meagan Roman Admitting Unavailable Chris, Misael Primary Care Unavailable Kuldeep Almazan Consulting Unavailable Meagan Roman Attending Unavailable Aleyda Bourgeois Consulting Unavailable Allergies Allergy Classification Reported Allergen(s) Allergy Type Date of Onset Reaction(s) Facility Latex (1 source) Latex Substance Allergy [address] [place] [address] Repository NSAIDs (1 source) Ketorolac Drug Allergy [address] [place] [address] Repository (20 sources) Latex; Translations: [LATEX] Propensity to adverse reactions 7 rash [facility] (1 source) DULoxetine Drug Allergy [facility] Repository (1 source) Ketorolac Drug Allergy [facility] Repository (1 source) natural latex rubber Drug allergy (disorder) [facility] Repository (2 sources) NSAIDs; Translations: [NSAIDS (NON-STEROIDAL ANTI-INFLAMMATO RY DRUG)] Drug allergy (disorder) 9 [facility] Repository (4 sources) Ketorolac; Translations: [KETOROLAC] Drug Allergy 9 Rash, Facial Swelling [facility] (1 source) Non-steroidal anti-inflammato ry agent Propensity to adverse reactions to drug 9 Swelling, Rash, Facial Swelling [facility] (7 sources) Latex Allergy to substance 3 Unknown [facility] Work Phone: (4 sources) Ketorolac Propensity to adverse reactions 9 Rash [facility] (4 sources) Non-steroidal anti-inflammato ry agent Drug Intolerance 9 Swelling, Rash [facility] Medications Current Medications Medication Drug Class(es) [...] tablet Orally once a week 0 Active atorvastatin 10 mg oral tablet (20 [...] 10/12/2018 Active cholecalciferol 0.05 mg oral capsule (13 sources) Vitamin D Start: 07-13-2023 take 2000 [...] day for 30 day(s) Active epoetin anjana 48867 unt/ml injectable solution (1 source) Erythropoiesis-stimulat ing Agent Procrit 53290 UNIT/ML as directed Injection once a month [...] tablet (20 sources) Loop Diuretic Start: 07-13-2023 End: 08-01-2023 take 1 tablet by mouth once daily Furosemide (Lasix) 40 mg tablet Active 40 MG PO Daily August 01, 2023 10:47am On Hold: Resume on 08/17/23. Start: 01-02-2023 furosemide (La six) 40 MG tablet take 1 tablet by bi th every twenty-four hours Lasix 20 MG 1 tablet Orally Once a day for 90 day(s) Active gabapentin 100 mg oral capsule (20 sources) Anti-epileptic Agent Start: 08-14-2023 take 100 mg by mouth three times daily Gabapentin Active 100 MG PO Three times daily August 14, 2023 12:00am Start: 02-21-2023 End: 05-22-2023 take 1 capsule by mouth every eight hours gabapentin (Neurontin) 100 MG capsule Indications: Paresthesia of both feet Take 1 capsule (100 mg) by mouth every 8 (eight) hours 90 capsule 2 02/21/2023 05/22/2023 Active take 1 capsule by mo [facility] every eight hours Gabapentin 100 MG 1 capsule Orally THREE TIMES A DAY Active glucosamine sulfate 500 mg oral tablet (19 sources) Start: 07-13-2023 take 500 mg by mouth once daily Glucosamine Sulfate Active 500 MG PO Daily July 13, 2023 12:00am take 1 tablet by bi th every twenty-four hours Glucosamine 500 mg 1 tablet Orally Daily Active lisinopril 5 mg oral tablet (20 sources) Angiotensin Converting Enzyme Inhibitor Start: 07-13-2023 take 5 mg by mouth once daily Lisinopril Active 5 MG PO Daily July 13, 2023 12:00am On Hold: Resume on 08/17/23. Start: 12-10-2020 take 1 tablet by bi th every twenty-four hours Lisinopril 5 MG 1 tablet Orally Once a day for 90 day(s) Dec, Active metFORMIN hydrochloride 1000 mg oral tablet (8 sources) Biguanide take 1 tablet by mouth twice daily at mealtime metFORMIN HCl 1000 mg 1 tablet with meals Orally Twice a day Active 24 hr metoprolol succinate 50 mg extended release oral tablet (1 source) beta-Adrenergic Raquel Start: take 50 mg by mouth once daily Metoprolol Succinate Active 50 MG PO Daily August 14, 2023 12:00am OXcarbazepine 150 mg oral tablet (13 sources) Anti-epileptic Agent take 1 tablet by mouth every twenty-four hours Trileptal 150 MG 1 Tablet Orally ONCE A DAY Active take 1 tablet by bi three times daily as needed Trileptal 150 MG 1 Tablet Orally THREE TIMES A DAY,As needed Active pantoprazole 40 mg delayed release oral tablet (20 sources) Proton Pump Inhibitor Start: 08-15-2023 take 1 tablet by mouth twice daily, then take 1 tablet by mouth once daily Pantoprazole (Protonix) 40 mg tablet,delayed release (DR/EC) Active 40 MG PO As Directed August 15, 2023 2:28pm Protonix 40 mg twice daily for 8 weeks then decrease to 40 mg daily Start: 07-13-2023 End: 08-15-2023 take 1 tablet by mouth once daily Pantoprazole (Protonix) 40 mg tablet,delayed release (DR/EC) Discontinued 40 MG PO Daily July 13, 2023 12:00am August 15, 2023 2:29pm pantoprazole (Pr otonix) 40 MG EC tablet 1 (one) time each day at the same time. 0 Active traMADol hydrochloride 50 mg oral tablet (3 sources) Opioid Agonist End: 04-10-2023 traMADol (Ultram) 50 MG tablet every 6 (six) hours. 0 04/10/2023 Discontinued (Med list cleanup) ubidecarenone 400 mg oral capsule (6 sources) Start: 07-13-2023 Coenzyme Q10 A ctive 400 MG PO Daily July 13, 2023 12:00am take 1 capsule by [facility] every twenty-four hours CoQ-10 400 MG 1 capsule with a meal Orally Once a day for 30 day(s) Active Vitamin D (Cholecalciferol) 50 MCG (1999) (13 sources) take 1 capsule by mouth once daily Vitamin D (Cholecalciferol) 50 MCG (1999) 1 capsule Orally Once a day Active Completed/Discontinued Medications Medication Drug Class(es) Dates Sig (Normalized) Sig (Original) amLODIPine 10 mg oral tablet (20 sources) Dihydropyridine Calcium Channel Raquel Start: 05-09-2023 End: 08-14-2023 take 1 tablet by mouth once daily Amlodipine Discontinued 0 .ROUTE .COMPLEX May 09, 2023 5:04pm August 14, 2023 4:22pm TAKE 1 TABLET BY MOUTH DAILY Start: 04-24-2023 End: 05-09-2023 take 10 mg by mouth once daily Amlodipine Discontinued 10 MG PO Daily April 24, 2023 1:00am May 09, 2023 5:04pm Start: 12-28-2016 take 1 tablet by bi th once daily amLODIPine (NORVASC) 10 mg tablet Take 1 tablet (10 mg total) by mouth respiratory nightly. 0 12/28/2016 Active ergocalciferol 1.25 mg oral capsule (1 source) [...] 04/11/2023 Discontinued (Therapy completed) polyethylene glycol 3350 793404 mg / potassium chloride 2970 mg / sodium bicarbonate 6740 mg / sodium chloride 5860 mg / sodium sulfate 05529 mg powder for oral solution (1 source) Osmotic Laxative Start: 02-28-2023 End: 03-08-2023 polyethylene glycol (GOLYTELY) 236-22.74-6.74 -5.86 gram solution Indications: Iron deficiency anemia, unspecified iron deficiency anemia type , Stage 3 chronic kidney disease, unspecified whether stage 3a or 3b CKD ([facility]) Take 240 mL by mouth [...] Problem Classification Problem Date Documented Date Episodic/Chronic Acute posthemorrhagic anemia (3 sources) Acute posthemorrhagic anemia; Translations: [Acute posthemorrhagic anemia] Onset: 4 08-15-2023 Episodic Anxiety disorders (2 sources) Generalized anxiety disorder; [...] stage 2 (mild)] Onset: 4 04-18-2023 Chronic Chronic kidney disease (11 sources) Chronic kidney disease; Translations: [Chronic kidney disease, stage 3 unspecified] Onset: 1 Resolved: 1 Deficiency and other anemia (17 sources) Anemia in chronic kidney disease; Translations: [Anemia in chronic kidney disease] Chronic Deficiency and other anemia (6 sources) Anemia in chronic kidney disease; Translations: [Anemia in chronic kidney disease D63.1] Onset: 1 Resolved: 1 Chronic Deficiency and other anemia (5 sources) Iron deficiency anemia; Translations: [Iron deficiency anemia, unspecified] Onset: 3 02-28-2023 Episodic Deficiency and other anemia (1 source) Anemia; Translations: [Anemia, unspecified] 08-15-2023 Episodic Deficiency and other anemia (2 sources) Anemia, unspecified; Translations: [Anemia, unspecified] Onset: 4 08-15-2023 Episodic Diabetes mellitus with complications (20 sources) [...] 2 04-18-2023 Chronic Fluid and electrolyte disorders (6 sources) Hyperkalemia; Translations: [Hyperkalemia] Episodic Gastritis and duodenitis (7 sources) Atrophic gastritis; Translations: [Chronic atrophic 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] Onset: 4 03-08-2023 Chronic Gastritis and duodenitis (3 sources) Acute hemorrhagic gastritis; Translations: [Gastritis, unspecified, with bleeding] Onset: 4 08-15-2023 Episodic Genitourinary symptoms and ill-defined conditions (16 sources) Proteinuria, unspecified; Translations: [Proteinuria] Onset: 1 [...] (1 source) Patient encounter status; Translations: [Other exterminator helper (current) drug therapy] 04-18-2023 Episodic Other and unspecified benign neoplasm (5 sources) Polyp of sigmoid colon; Translations: [Polyp of colon] Onset: 4 03-08-2023 Episodic Other diseases of kidney and ureters (17 sources) Secondary hyperparathyroidism; Translations: [Secondary hyperparathyroidism of renal origin] Chronic Other diseases of kidney and ureters (1 source) Disorder of kidney and ureter, unspecified; Translations: [Disorder of kidney and ureter, unspecified] Onset: 4 Episodic Other gastrointestinal disorders (1 source) Occult blood in stools; Translations: [Other fecal abnormalities] 08-14-2023 Episodic Other gastrointestinal disorders (2 sources) Other fecal abnormalities; Translations: [Nonspecific abnormal findings in stool contents] Onset: 4 08-15-2023 Episodic Other non-traumatic joint disorders (4 sources) Pain in right knee; Translations: [Pain in joint, lower leg] 04-07-2023 Episodic Other nutritional; endocrine; and metabolic disorders (2 sources) Obesity, unspecified; Translations: [OBESITY UNSPECIFIED] Onset: 2 Chronic Other nutritional; endocrine; and metabolic disorders (3 sources) Body mass index 30+ - obesity; Translations: [Obesity, unspecified] Onset: 4 04-18-2023 Chronic Other nutritional; endocrine; and metabolic disorders (6 sources) Hyperuricemia without signs of inflammatory arthritis and tophaceous disease; Translations: [Other abnormal blood chemistry] Onset: 2 Episodic Other nutritional; endocrine; and metabolic disorders (2 sources) Hyperuricemia; Translations: [Hyperuricemia without signs of inflammatory [...] Classification Problem Date Documented Da te Episodic/Chronic Deficiency and other anemia (1 source) Iron deficiency anemia, unspecified; Translations: [Iron deficiency anemia, unspecified] Onset: 02-28-2023 Episodic Mood disorders (1 source) Mood disorders Onset: 02-28-2023 02-28-2023 Other aftercare (2 sources) Other exterminator helper (current) drug therapy; Translations: [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 [facility] Comment on above: Performed By: #### H H #### [address] Automated basophil countOrde red By: Meagan Jessie on 08-15-2023 Basophils (Bld) [#/Vol] 0.0 10*3/uL Normal 0.0-0.2 [facility] Comment on above: Result Comment: PERF ORMED BY: [place] [address] PATHOLOGIST DIGITAL MUSIC INSTRUCTOR LATONIA BRAND M.D. Performed By: #### H H #### [address] Automated blood monocyte cou ntOrdered By: Meagan Jessie on 08-15-2023 Monocytes (Bld) [#/Vol] 0.5 10*3/uL Normal 0.0-0.8 [facility] Comment on above: Performed By: #### H H #### [address] Automated eosinophil %Ordere d By: Meagan Roman on 08-15-2023 Eosinophils/100 WBC (Bld) 5.1 % Normal . [facility] Comment on above: Performed By: #### H H #### [address] Automated eosinophil countOr dered By: Meagan Jessie on 08-15-2023 Eosinophils (Bld) [#/Vol] 0.2 10*3/uL Normal 0.0-0.45 [facility] Comment on above: Performed By: #### H H #### [address] Automated monocyte %Ordered By: Meagan Jessie on 08-15-2023 Monocytes/100 WBC (Bld) 9.7 % Normal . [facility] Comment on above: Performed By: #### H H #### [address] Automated neutrophil %Ordere d By: Meagan Roman on 08-15-2023 Neutrophils/100 WBC (Bld) 57.5 % Normal . [facility] Comment on above: Performed By: #### H H #### [address] Basic Metabolic Panelon 08-04 Creatinine Clr Calc Pharmacy 37.31 Normal [facility] Comment on above: Result Comment: PERF ORMED BY: [place] [address] PATHOLOGIST DIGITAL MUSIC INSTRUCTOR LATONIA BRAND M.D. Performed By: #### H H #### [address] GFR/1.73 sq M.predicted MDRD (S/P/Bld) [Vol rate/Area] 43.688 mL/min/{1.73_m2} Normal [facility] Comment on above: Performed By: #### H H #### [place] [address] [place] Calcium [Mass/volume] in Ser um or PlasmaOrdered By: Meagan Roman on 08-15-2023 Calcium [Mass/Vol] 9.0 mg/dL Normal 8.6-10.3 [facility] Comment on above: Performed By: #### H H #### [address] Carbon dioxide, total [Moles /volume] in Serum or PlasmaOrdered By: Meagan Roman on 08-15-2023 CO2 [Moles/Vol] 25.5 mmol/L Normal 21.0-31.0 [facility] Comment on above: Performed By: #### H H #### [place] [address] [place] Chloride [Moles/volume] in S matthew or PlasmaOrdered By: Meagan Roman on 08-15-2023 Chloride [Moles/Vol] 106 mmol/L Normal 98-107 [facility] Comment on above: Performed By: #### H H #### [address] Complete Blood Count Auto Di ffon 08-15-2023 Hematocrit (Bld) [Volume fraction] 26.1 % Low 34.0-46.4 [facility] Comment on above: Performed By: #### H H #### [address] Hemoglobin (Bld) [Mass/Vol] 8.8 g/dL Low 11.8-15.4 [facility] Comment on above: Performed By: #### H H #### [address] Mean Corpuscular HGB Conc 33.6 g/dL Normal 32.0-35.0 [facility] Comment on above: Performed By: #### H H #### [address] NRBC% 0.1 /100{WBC} Normal 0-0.5 [facility] Comment on above: Performed By: #### H H #### [address] Creatinine [Mass/volume] in Serum or PlasmaOrdered By: Meagan Roman on 08-15-2023 Creatinine [Mass/Vol] 1.28 mg/dL High 0.60-1.20 [facility] Comment on above: Performed By: #### H H #### [address] Erythrocyte distribution wid th [Ratio] by Automated countOrdered By: Meagan Roman on 08-15-2023 Erythrocyte distribution width (RBC) [Ratio] 14.8 % Normal 11.9-15.3 [facility] Comment on above: Performed By: #### H H #### [address] Erythrocytes [#/volume] in B lood by Automated countOrdered By: Meagan Roman on 08-15-2023 RBC (Bld) [#/Vol] 2.97 10*6/uL Low 3.60-5.00 [facility] Comment on above: Performed By: #### H H #### [address] Glucose [Mass/volume] in Ser um or PlasmaOrdered By: Meagan Roman on 08-15-2023 Glucose [Mass/Vol] 98 mg/dL Normal 70-100 [facility] Comment on above: ADA recommended refe rence rangeRandom Glucose Reference Range is dependent on time and content of last meal. Glucose of more than 200 mg/dL in a nonstressed, ambulatory subject supports the diagnosis of Diabetes Mellitus. Result Comment: [place] om Glucose Reference Range is dependent on time and content of last meal. Glucose of more than 200 mg/dL in a nonstressed, ambulatory subject supports the diagnosis of Diabetes Mellitus. ADA recommended reference range Performed By: #### H H #### [address] Hematocrit [Volume Fraction] of Blood by Automated countOrdered By: Meagan Roman on 08-15-2023 Hematocrit (Bld) [Volume fraction] 27.3 % Low 34.0-46.4 [facility] Comment on above: Result Comment: PERF ORMED BY: [place] [address] PATHOLOGIST DIGITAL MUSIC INSTRUCTOR LATONIA BRAND M.D. Performed By: #### H H #### [address] Hemoglobin [Mass/volume] in BloodOrdered By: Meagan Roman on 08-15-2023 Hemoglobin (Bld) [Mass/Vol] 9.1 g/dL Low 11.8-15.4 [facility] Comment on above: Performed By: #### H H #### [address] Leukocytes [#/volume] correc azul for nucleated erythrocytes in Blood by Automated counOrdered By: Meagan Roman on 08-15-2023 WBC corrected for nucl RBC Auto (Bld) [#/Vol] 4.9 10*3/uL 3.8-11.6 [facility] Leukocytes [#/volume] in Blo od by Automated countOrdered By: Meagan Roman on 08-15-2023 WBC (Bld) [#/Vol] 4.9 10*3/uL Normal 3.8-11.6 [facility] Comment on above: Performed By: #### H H #### [address] Lymphocytes [#/volume] in Bl ood by Automated countOrdered By: Meagan Roman on 08-15-2023 Lymphocytes (Bld) [#/Vol] 1.3 10*3/uL Normal 1.00-4.8 [facility] Comment on above: Performed By: #### H H #### [facility] [address] [place] [address] Lymphocytes/100 leukocytes i n Blood by Automated countOrdered By: Meagan Roman on 08-15-2023 Lymphocytes/100 WBC (Bld) 26.9 % Normal . [facility] Comment on above: Performed By: #### H H #### [address] MCH [Entitic mass] by Automa azul countOrdered By: Meagan Roman on 08-15-2023 MCH (RBC) [Entitic mass] 29.5 pg Normal 24.7-34.3 [facility] Comment on above: Performed By: #### H H #### [address] MCHC Auto (RBC) [Mass/Vol]Or dered By: Meagan Roman on 08-15-2023 MCHC (RBC) [Mass/Vol] 33.6 g/dL 32.0-35.0 [facility] MCV [Entitic volume] by Auto mated countOrdered By: Meagan Roman on 08-15-2023 MCV (RBC) [Entitic vol] 87.6 fL Normal 80-100 [facility] Comment on above: Performed By: #### H H #### [facility] [address] Neutrophils [#/volume] in Bl ood by Automated countOrdered By: Meagan Roman on 08-15-2023 Neutrophils (Bld) [#/Vol] 2.8 10*3/uL Normal 1.8-7.7 [facility] Comment on above: Performed By: #### H H #### [address] No Panel InformationOrdered By: Meagan Roman on 08-15-2023 Estimated GFR (CKD-EPI) 43.688 mL/Min [facility] Creatinine Clearance (Chem 37.31 [facility] Nucleated erythrocytes [Pres ence] in Blood by Automated countOrdered By: Meagan Roman on 08-15-2023 Nucleated RBC Auto Ql (Bld) 0.1 /100{WBC} 0-0.5 [facility] Platelet mean volume [Entiti c volume] in Blood by Automated countOrdered By: Meagan Roman on 08-15-2023 Platelet mean volume (Bld) [Entitic vol] 8.3 fL Normal 6.3-10.7 [facility] Comment on above: Performed By: #### H H #### [address] Platelets [#/volume] in Bloo d by Automated countOrdered By: Meagan Roman on 08-15-2023 Platelets (Bld) [#/Vol] 273 10*3/uL Normal 150-450 [facility] Comment on above: Performed By: #### H H #### [address] Potassium [Moles/volume] in Serum or PlasmaOrdered By: Meagan Roman on 08-15-2023 Potassium [Moles/Vol] 5.0 mmol/L Normal 3.5-5.1 [facility] Comment on above: Performed By: #### H H #### [facility] [address] [place] [address] Serum or plasma anion gap de terminationOrdered By: Meagan Roman on 08-15-2023 Anion gap [Moles/Vol] 12.5 mmol/L Normal 6.0-15.0 [facility] Comment on above: Performed By: #### H H #### [place] [address] [place] Sodium [Moles/volume] in Ser um or PlasmaOrdered By: Meagan Roman on 08-15-2023 Sodium [Moles/Vol] 139 mmol/L Significant change down 136-145 [facility] Comment on above: Delta: 131 on Performed By: #### H H #### [address] Urea nitrogen [Mass/volume] in Serum or PlasmaOrdered By: Meagan Roman on 08-15-2023 Urea nitrogen [Mass/Vol] 27 mg/dL High 7 [facility] Comment on above: Performed By: #### H H #### [place] [address] [place] ABO/Rh Retypeon 08-14-2023 ABO/RH Recheck Result Negative Normal [facility] Comment on above: Result Comment: PERF ORMED BY: [place] [address] PATHOLOGIST DIGITAL MUSIC INSTRUCTOR LATONIA BRAND M.D. Alanine aminotransferase [En zymatic activity/volume] in Serum or PlasmaOrdered By: Liliana Kaba on 08-14-2023 ALT [Catalytic activity/Vol] 6 U/L Low 52 [facility] Comment on above: Performed By: #### C BC, TIBC, RADHA, [id number], FE, CMP #### [facility] [address] [place] [address] [place] Albumin [Mass/volume] in Ser um or Plasma by Bromocresol green (BCG) dye binding methoOrdered By: Liliana Kaba on 08-14-2023 Albumin BCG dye [Mass/Vol] 4.5 g/dL 3.5-5.7 [facility] Alkaline phosphatase [Enzyma tic activity/volume] in Serum or PlasmaOrdered By: Liliana Kaba on 08-14-2023 ALP [Catalytic activity/Vol] 55 U/L Normal 34-104 [facility] Comment on above: Performed By: #### C BC, TIBC, RADHA, [id number], FE, CMP #### [address] Aspartate aminotransferase [ Enzymatic activity/volume] in Serum or PlasmaOrdered By: Liliana Kaba on 08-14-2023 AST [Catalytic activity/Vol] 12 U/L Low 13-39 [facility] Comment on above: Performed By: #### C BC, TIBC, RADHA, [id number], FE, CMP #### [address] Bilirubin.total [Mass/volume ] in Serum or PlasmaOrdered By: Liliana Kaba on 08-14-2023 Bilirubin [Mass/Vol] 0.3 mg/dL Normal 0.3-1.0 [facility] Comment on above: Performed By: #### C BC, TIBC, RADHA, [id number], FE, CMP #### [address] Complete Blood Count Auto Di ffon 08-14-2023 Basophils (Bld) [#/Vol] 0.1 10*3/uL Normal 0.0-0.2 [facility] Comment on above: Result Comment: PERF ORMED BY: [place] [address] PATHOLOGIST DIGITAL MUSIC INSTRUCTOR LATONIA BRAND M.D. Performed By: #### C BC, TIBC, RADHA, [id number], FE, CMP #### [address] Basophils/100 WBC (Bld) 0.7 % Normal . [facility] Comment on above: Performed By: #### C BC, TIBC, RADHA, [id number], FE, CMP #### [address] Eosinophils (Bld) [#/Vol] 0.3 10*3/uL Normal 0.0-0.45 [facility] Comment on above: Performed By: #### C BC, TIBC, RADHA, [id number], FE, CMP #### [address] Eosinophils/100 WBC (Bld) 3.3 % Normal . [facility] Comment on above: Performed By: #### C BC, TIBC, RADHA, [id number], FE, CMP #### [address] [address] Erythrocyte distribution width (RBC) [Ratio] 14.6 % Normal 11.9-15.3 The [facility] Comment on above: Performed By: #### C BC, TIBC, RADHA, [id number], FE, CMP #### [address] Hematocrit (Bld) [Volume fraction] 22.9 % Low 34.0-46.4 The [facility] Comment on above: Performed By: #### C BC, TIBC, RADHA, [id number], FE, CMP #### [address] Hemoglobin (Bld) [Mass/Vol] 7.7 g/dL Low 11.8-15.4 The [facility] Comment on above: Performed By: #### C BC, TIBC, RADHA, [id number], FE, CMP #### [address] Lymphocytes (Bld) [#/Vol] 1.5 10*3/uL Normal 1.00-4.8 The [facility] Comment on above: Performed By: #### C BC, TIBC, RADHA, [id number], FE, CMP #### [address] Lymphocytes/100 WBC (Bld) 19.2 % Normal . The [facility] Comment on above: Performed By: #### C BC, TIBC, RADHA, [id number], FE, CMP #### [address] MCH (RBC) [Entitic mass] 29.9 pg Normal 24.7-34.3 The [facility] Comment on above: Performed By: #### C BC, TIBC, RADHA, [id number], FE, CMP #### [address] MCV (RBC) [Entitic vol] 89.1 fL Normal 80-100 [facility] Comment on above: Performed By: #### C BC, TIBC, RADHA, [id number], FE, CMP #### [address] Mean Corpuscular HGB Conc 33.6 g/dL Normal 32.0-35.0 The [facility] Comment on above: Performed By: #### C BC, TIBC, RADHA, [id number], FE, CMP #### [address] Monocytes (Bld) [#/Vol] 0.5 10*3/uL Normal 0.0-0.8 The [facility] Comment on above: Performed By: #### C BC, TIBC, RADHA, [id number], FE, CMP #### [address] Monocytes/100 WBC (Bld) 15.64 % Normal 0.00-20.00 [facility] Comment on above: Performed By: #### C BC, TIBC, RADHA, [id number], FE, CMP #### [address] Monocytes/100 WBC (Bld) 6.8 % Normal . [facility] Comment on above: Performed By: #### C BC, TIBC, RADHA, [id number], FE, CMP #### [address] Neutrophils (Bld) [#/Vol] 5.4 10*3/uL Normal 1.8-7.7 The [facility] Comment on above: Performed By: #### C BC, TIBC, RADHA, [id number], FE, CMP #### [address] Neutrophils/100 WBC (Bld) 70.0 % Normal . The [facility] Comment on above: Performed By: #### C BC, TIBC, RADHA, [id number], FE, CMP #### [address] NRBC% 0.1 /100{WBC} Normal 0-0.5 The [facility] Comment on above: Performed By: #### C BC, TIBC, RADHA, [id number], FE, CMP #### [address] Platelet mean volume (Bld) [Entitic vol] 8.3 fL Normal 6.3-10.7 The [facility] Comment on above: Performed By: #### C BC, TIBC, RADHA, [id number], FE, CMP #### [address] Platelets (Bld) [#/Vol] 291 10*3/uL Normal 150-450 The [facility] Comment on above: Performed By: #### C BC, TIBC, RADHA, [id number], FE, CMP #### [address] RBC (Bld) [#/Vol] 2.57 10*6/uL Low 3.60-5.00 The [facility] Comment on above: Performed By: #### C BC, TIBC, RADHA, [id number], FE, CMP #### [address] WBC (Bld) [#/Vol] 7.7 10*3/uL Normal 3.8-11.6 The [facility] Comment on above: Performed By: #### C BC, TIBC, RADHA, [id number], FE, CMP #### [facility] [address] Comprehensive Metabolic Pane rajesh 08-14-2023 Albumin [Mass/Vol] 4.5 g/dL Normal 3.5-5.7 The [facility] Comment on above: Performed By: #### C BC, TIBC, RADHA, [id number], FE, CMP #### [facility] [address] Anion gap [Moles/Vol] 12.4 mmol/L Normal 6.0-15.0 Th e [facility] Comment on above: Performed By: #### C BC, TIBC, RADHA, [id number], FE, CMP #### [address] Calcium [Mass/Vol] 8.7 mg/dL Normal 8.6-10.3 The [facility] Comment on above: Performed By: #### C BC, TIBC, RADHA, [id number], FE, CMP #### [address] Chloride [Moles/Vol] 100 mmol/L Normal 98-107 The [facility] Comment on above: Performed By: #### C BC, TIBC, RADHA, [id number], FE, CMP #### [address] CO2 [Moles/Vol] 23.7 mmol/L Normal 21.0-31.0 The [facility] Comment on above: Performed By: #### C BC, TIBC, RADHA, [id number], FE, CMP #### [address] Creatinine [Mass/Vol] 1.43 mg/dL High 0.60-1.20 The [facility] Comment on above: Performed By: #### C BC, TIBC, RADHA, [id number], FE, CMP #### [address] Creatinine Clr Calc Pharmacy 33.40 Normal The [facility] Comment on above: Result Comment: PERF ORMED BY: [place] [address] PATHOLOGIST [employer]ITAL MUSIC INSTRUCTOR LATONIA BRAND M.D. Performed By: #### C BC, TIBC, RADHA, [id number], FE, CMP #### [address] GFR/1.73 sq M.predicted MDRD (S/P/Bld) [Vol rate/Area] 38.248 mL/min/{1.73_m2} Normal The [facility] Comment on above: Performed By: #### C BC, TIBC, RADHA, [id number], FE, CMP #### [address] Glucose [Mass/Vol] 94 mg/dL Normal 70-100 The [facility] Comment on above: Result Comment: [place] Glucose Reference Range is dependent on time and content of last meal. Glucose of more than 200 mg/dL in a nonstressed, ambulatory subject supports the diagnosis of Diabetes Mellitus. ADA recommended reference range Performed By: #### C BC, TIBC, RADHA, [id number], FE, CMP #### [address] Potassium [Moles/Vol] 5.1 mmol/L Normal 3.5-5.1 The [facility] Comment on above: Performed By: #### C BC, TIBC, RADHA, [id number], FE, CMP #### [address] Sodium [Moles/Vol] 131 mmol/L Low 136-145 The [facility] Comment on above: Performed By: #### C BC, TIBC, RADHA, [id number], FE, CMP #### [address] Urea nitrogen [Mass/Vol] 31 mg/dL High 7-25 The [facility] Comment on above: Performed By: #### C BC, TIBC, RADHA, [id number], FE, CMP #### [place] [id number] [facility] ECG 12 lead ECGon 08-14-2023 ECG 12 lead ECG [facility] [place] [address] [place] [address] Electrocardiograph Report Signed Patient: Malgorzata Reyes MR#: [id number] : 1945 Acct:[id number] Age/Sex: 77 / F ADM Date: 08/14/23 Loc: Room: [address] [place] [address] Type: ADM INOo Attending Dr: Meagan Roman MD Ordering Provider: Liliana Kaba DO Date of Service: 08/14/2312/28/1631 ECG/ECG 12 lead ECG: Recheck/Abnormal Lab/Rx Copies to: Test Reason : Blood Pressure : 158/068 mmHG Vent. Rate : 060 BPM Atrial Rate : 060 BPM P-R Int : 176 ms QRS Dur : 098 ms QT Int : 414 ms P-R-T Axes : 080 -13 023 degrees QTc Int : 414 ms Normal sinus rhythm Septal infarct , age undetermined Abnormal ECG No previous ECGs available Confirmed by LILIANA KABA DO ([id number]) on 08/15/2023 1:51:01 AM Referred By: Electronically Signed By:LILIANA KABA DO Transcribed By: MUS Signed By Liliana Kaba DO 08/14 0151 Normal The [facility] Erythrocyte distribution wid th Auto (RBC) [Ratio]on 08-14-2023 Erythrocyte distribution width (RBC) [Ratio] 14.0 % 11.0-15.0 [facility] Estimated glomerular filtrat ion rate (GFR) non- Americanon 08-14-2023 GFR/1.73 sq M.predicted among non-blacks MDRD (S/P/Bld) [Vol rate/Area] 35 mL/min/{1.73_m2} >=60 [facility] Fecal occult blood detection by immunochemistryOrdered By: Liliana Kaba on 08-14-2023 Hemoglobin.gastrointestin al Ql (Stl) [facility] Ferritin [Mass/volume] in Se rum or PlasmaOrdered By: Liliana Kaba on 08-14-2023 Ferritin [Mass/Vol] 116.6 ng/mL Normal 11.0-306.8 [facility] Comment on above: Performed By: #### C BC, TIBC, RADHA, [id number], FE, CMP #### [facility] [address] Folate [Mass/volume] in Seru m or PlasmaOrdered By: Liliana Kaba on 08-14-2023 Folate [Mass/Vol] 27.0 ng/mL >5.9 [facility] Comment on above: Folate reference ran ge: >5.9 ng/mlThe WHO technical consultation on folate and vitamin [id number] has determined that folate concentrations lessthan 4 ng/ml are considered deficient. Hematocrit Auto (Bld) [Volum e fraction]on 08-14-2023 Hematocrit (Bld) [Volume fraction] 23.4 % 36.0-48.0 [facility] Comment on above: RESULTS CALLED TO [facility] Hemoglobin [Mass/volume] in Bloodon 08-14-2023 Hemoglobin (Bld) [Mass/Vol] 7.2 g/dL 12.0-16.0 [facility] Iron [Mass/volume] in Serum or PlasmaOrdered By: Liliana Kaba on 08-14-2023 Iron [Mass/Vol] 29 ug/dL Low 50-212 [facility] Comment on above: Performed By: #### C BC, TIBC, RADHA, [id number], FE, CMP #### [facility] [address] Iron binding capacity [Mass/ volume] in Serum or PlasmaOrdered By: Liliana Kaba on 08-14-2023 Iron binding capacity [Mass/Vol] 272 ug/dL 255-450 [facility] Iron binding capacity [Mass/ volume] in Serum or Plasmaon 08-14-2023 Iron binding capacity [Mass/Vol] 241.0 ug/dL 250.0-450.0 [facility] Iron saturation [Mass Fracti on] in Serum or Plasmaon 08-14-2023 Iron saturation [Mass fraction] 13.3 % [facility] Laboratory - Chemistry and C hemistry - challengeon 08-14-2023 Albumin [Mass/Vol] 3.6 g/dL 3.4-5.0 [facility] Calcium [Mass/Vol] 8.4 mg/dL 8.5-10.1 [facility] Chloride [Moles/Vol] 101 mmol/L 98-107 [facility] CO2 [Moles/Vol] 23.8 mmol/L 21.0-32.0 [facility] Creatinine [Mass/Vol] 1.47 mg/dL 0.55-1.02 [facility] Ferritin [Mass/Vol] 154.0 ng/mL 8.0-252.0 [facility] GFR/1.73 sq M.predicted MDRD (S/P/Bld) [Vol rate/Area] 42 mL/min/{1.73_m2} >=60 [facility] Glucose [Mass/Vol] 98 mg/dL 74-106 [facility] Iron [Mass/Vol] 32.0 ug/dL 50.0-170.0 [facility] Potassium [Moles/Vol] 5.3 mmol/L 3.5-5.1 [facility] Sodium [Moles/Vol] 134 mmol/L 136-145 [facility] Urea nitrogen [Mass/Vol] 30.0 mg/dL 7.0-18.0 [facility] Urea nitrogen/Creatinine [Mass ratio] 20.4 mg/mg [facility] LeukoReduced RBCon LeukoReduced RBC TRANSFUSED 08/14/23 2303 Normal [facility] Leukocytes [#/volume] correc azul for nucleated erythrocytes in Blood by Automated counon 08-14-2023 WBC corrected for nucl RBC Auto (Bld) [#/Vol] 6.0 10 3/uL 4.0-11.0 [facility] MCH Auto (RBC) [Entitic mass ]on 08-14-2023 MCH (RBC) [Entitic mass] 28.9 pg 26.7-34.0 [facility] MCHC Auto (RBC) [Mass/Vol]on 08-14-2023 MCHC (RBC) [Mass/Vol] 30.8 g/dL 29.9-35.2 [facility] MCV Auto (RBC) [Entitic vol] on 08-14-2023 MCV (RBC) [Entitic vol] 94.0 fL 81.0-99.0 F [facility] Monocyte distribution width [Entitic volume] in Blood by AutomatedOrdered By: MONSTER MCBRIDE on 08-14-2023 Monocyte distribution width Auto (Bld) [Entitic vol] 15.64 % 0.00-20.00 [facility] No Panel Informationon 08-13 Phosphorus Level 4.3 mg/dL 2.6-4.7 [facility] Platelet mean volume Auto (B ld) [Entitic vol]on 08-14-2023 Platelet mean volume (Bld) [Entitic vol] 10.0 fL 9.5-13.5 [facility] Platelets Auto (Bld) [#/Vol] on 08-14-2023 Platelets (Bld) [#/Vol] 290 10 3/uL 150-450 [facility] Protein [Mass/volume] in Ser um or PlasmaOrdered By: Liliana Kaba on 08-14-2023 Protein [Mass/Vol] 7.2 g/dL Normal 6.4-8.9 [facility] Comment on above: Performed By: #### C BC, TIBC, RADHA, [id number], FE, CMP #### [facility] [address] RBC Auto (Bld) [#/Vol]on RBC (Bld) [#/Vol] 2.49 10 6/uL 4.20-5.40 [facility] Serum globulin measurement b y calculation (mass/volume)Ordered By: Liliana Kaba on 08-14-2023 Globulin (S) [Mass/Vol] 2.7 g/dL Normal F [facility] Comment on above: Performed By: #### C BC, TIBC, RADHA, [id number], FE, CMP #### [facility] [address] Serum or plasma albumin/glob ulin mass ratioOrdered By: Liliana Kaba on 08-14-2023 Albumin/Globulin [Mass ratio] 1.7 {ratio} Normal [facility] Comment on above: Performed By: #### C BC, TIBC, RADHA, [id number], FE, CMP #### [address] Serum or plasma anion gap de terminationon 08-14-2023 Anion gap [Moles/Vol] 14.5 mmol/L [facility] Stool Occult Blood (Guaiac)o n 08-14-2023 Stool Occult Blood (Guaiac) Occult Blood Positive for Occult Blood by Guaiac Methodology Reference range = Negative PERFORMED BY: [place] [address] PATHOLOGIST DIGITAL MUSIC INSTRUCTOR LATONIA BRAND M.D. Normal [facility] Comment on above: Performed By: #### O B(GUAIAC) #### [address] Total Iron Binding Capacityo n 08-14-2023 Total Iron Binding Capacity 272 ug/dL Normal 255-450 [facility] Comment on above: Performed By: #### C BC, TIBC, RADHA, [id number], FE, CMP #### [address] Transferrin [Mass/volume] in Serum or PlasmaOrdered By: Liliana Kaba on 08-14-2023 Transferrin [Mass/Vol] 194 mg/dL Low 203-362 [facility] Comment on above: Performed By: #### C BC, TIBC, RADHA, [id number], FE, CMP #### [address] Type and Screenon 08-14-2023 ABO and Rh group Nom (Bld) Blood group A Rh(D) negative Normal [facility] Comment on above: Order Comment: Trans fuse now? Y Number of units to transfuse now? 1 Result Comment: PERF ORMED BY: [address] [address] PATHOLOGIST DIGITAL MUSIC INSTRUCTOR LATONIA BRAND M.D. Vit. B12/Folate Profileon Folate 27.0 ng/mL Normal >5.9 [facility] Comment on above: Result Comment: Audra te reference range: >5.9 ng/ml The WHO technical consultation on folate and vitamin b12 deficiencies has determined that folate concentrations less than 4 ng/ml are considered deficient. PERFORMED BY: [place] [id number] PATHOLOGIST DIGITAL MUSIC INSTRUCTOR LATONIA BRAND M.D. Performed By: #### C BC, TIBC, RADHA, [id number], FE, CMP #### [address] Vitamin B12 ser/plasOrdered By: Liliana Kaba on 08-14-2023 Cobalamin (Vitamin B12) [Mass/Vol] 457 pg/mL Normal 180-914 [facility] Comment on above: Performed By: #### C BC, TIBC, RADHA, [id number], FE, CMP #### [facility] [address] [place] [address] BASIC METABOLIC PANLon 07-19 Anion gap [Moles/Vol] 10 mmol/L Normal 5-15 [facility] Comment on above: Performed By: #### C BCA, BMP, LIVR, 31828-1, 3016-3, 87777-3 #### [facility] ([id number]) [address], [address] [place] [address] Calcium [Mass/Vol] 9.3 mg/dL Normal 8.5-10.5 [facility] Comment on above: Performed By: #### C BCA, BMP, LIVR, 57912-7, 3016-3, 38762-9 #### [facility] ([id number]) [address], [address] [place] [address] Chloride [Moles/Vol] 107 mmol/L Normal 98-109 [facility] Comment on above: Performed By: #### C BCA, BMP, LIVR, 18877-6, 3016-3, 93362-0 #### [facility] ([id number]) [address], [address] [place] [address] CO2 [Moles/Vol] 22 mmol/L Normal 22-32 [facility] Comment on above: Performed By: #### C BCA, BMP, LIVR, 12741-8, 3016-3, 44397-6 #### [facility] ([id number]) [address], [address] [place] [address] Creatinine [Mass/Vol] 1.38 mg/dL High 0.40-1.00 [facility] Comment on above: Result Comment: METH OD TRACEABLE TO IDMS STANDARD Performed By: #### C BCA, BMP, LIVR, 51768-7, 3016-3, 31871-4 #### [facility] ([id number]) [address], [address] [place] [address] GFR/1.73 sq M.predicted among non-blacks MDRD (S/P/Bld) [Vol rate/Area] 40 mL/min/{1.73_m2} Low >59 [facility] Comment on above: Result Comment: Reported eGFR is based on the CKD-EPI 2020 equation that does not use a race coefficient. Performed By: #### C BCA, BMP, LIVR, 38561-2, 3016-3, 47623-9 #### [facility] ([id number]) [address], [address] [place] [address] Glucose [Mass/Vol] 144 mg/dL High 65-99 [facility] Comment on above: Performed By: #### C BCA, BMP, LIVR, 48783-6, 3016-3, 34194-7 #### [facility] ([id number]) [address], [address] [place] [address] Potassium [Moles/Vol] 5.3 mmol/L High 3.5-5.0 [facility] Comment on above: Performed By: #### C BCA, BMP, LIVR, 78104-9, 3016-3, 97865-1 #### [facility] ([id number]) [address], [address] [place] [address] Sodium [Moles/Vol] 139 mmol/L Normal 134-146 [facility] Comment on above: Performed By: #### C BCA, BMP, LIVR, 97635-7, 3016-3, 45122-6 #### [facility] ([id number]) [address], [address] [place] [address] Urea nitrogen [Mass/Vol] 22 mg/dL Normal 5-27 [facility] Comment on above: Performed By: #### C BCA, BMP, LIVR, 73111-5, 3016-3, 89444-4 #### [facility] ([id number]) [address], [address] [place] [address] BASIC METABOLIC PANLon 07-18 Anion gap [Moles/Vol] 10 mmol/L Normal 5-15 [facility] Comment on above: Performed By: #### C BCA, BMP, LIVR, 60156-7, 3016-3, 96829-4 #### [facility] ([id number]) [address], [address] [place] [address] Calcium [Mass/Vol] 9.0 mg/dL Normal 8.5-10.5 [facility] Comment on above: Performed By: #### C BCA, BMP, LIVR, 59004-3, 3016-3, 01134-3 #### [facility] ([id number]) [address], [address] [place] [address] Chloride [Moles/Vol] 108 mmol/L Normal 98-109 [facility] Comment on above: Performed By: #### C BCA, BMP, LIVR, 71899-5, 3016-3, 54881-3 #### [facility] ([id number]) [address], [address] [place] [address] CO2 [Moles/Vol] 23 mmol/L Normal 22-32 [facility] Comment on above: Performed By: #### C BCA, BMP, LIVR, 39066-7, 3016-3, 98380-9 #### [facility] ([id number]) [address], [address] [place] [address] Creatinine [Mass/Vol] 1.60 mg/dL High 0.40-1.00 [facility] Comment on above: Result Comment: METH OD TRACEABLE TO IDMS STANDARD Performed By: #### C BCA, BMP, LIVR, 23991-0, 3016-3, 08240-6 #### [facility] ([id number]) [address], [facility] [address] [place] [address] GFR/1.73 sq M.predicted among non-blacks MDRD (S/P/Bld) [Vol rate/Area] 33 mL/min/{1.73_m2} Low >59 [facility] Comment on above: Result Comment: Reported eGFR is based on the CKD-EPI 2020 equation that does not use a race coefficient. Performed By: #### C BCA, BMP, LIVR, 04258-1, 3016-3, 56995-8 #### [facility] ([id number]) [address], [address] [place] [address] Glucose [Mass/Vol] 135 mg/dL High 65-99 [facility] Comment on above: Performed By: #### C BCA, BMP, LIVR, 44405-9, 3016-3, 47656-6 #### [facility] ([id number]) [address], [address] [place] [address] Potassium [Moles/Vol] 4.8 mmol/L Normal 3.5-5.0 [facility] Comment on above: Performed By: #### C BCA, BMP, LIVR, 41172-5, 3016-3, 80199-6 #### [facility] ([id number]) [address], [address] [place] [address] Sodium [Moles/Vol] 141 mmol/L Normal 134-146 [facility] Comment on above: Performed By: #### C BCA, BMP, LIVR, 78948-5, 3016-3, 34356-4 #### [facility] ([id number]) [address], [address] [place] [address] Urea nitrogen [Mass/Vol] 27 mg/dL Normal 5-27 [facility] Comment on above: Performed By: #### C BCA, BMP, LIVR, 29470-3, 3016-3, 90668-4 #### [facility] ([id number]) [address], [address] [place] [address] MAGNESIUMon 07-19-2023 Magnesium [Mass/Vol] 2.1 mg/dL Normal 1.8-2.6 [facility] Comment on above: Performed By: #### C BCA, BMP, LIVR, 72636-3, 3016-3, 61247-7 #### [facility] ([id number]) [address], [address] [place] [address] Natriuretic peptide B [Mass/ Vol]on 07-19-2023 Natriuretic peptide B (Bld) [Mass/Vol] 156 pg/mL High <100.0 [facility] Comment on above: Performed By: #### C BCA, BMP, LIVR, 16911-3, 3016-3, 77114-1 #### [facility] ([id number]) [address], [address] [place] [address] POTASSIUMon 07-19-2023 Potassium [Moles/Vol] 4.7 mmol/L Normal 3.5-5.0 [facility] Comment on above: Performed By: #### C BCA, BMP, LIVR, 06856-9, 3016-3, 14722-7 #### [facility] ([id number]) [address], [address] [place] [address] Troponin I.cardiac High sens itivity method [Mass/Vol]on 07-19-2023 1 HOUR TROP I, HIGH SENSITIVITY 4 ng/L Normal <16 [facility] Comment on above: Performed By: #### C BCA, BMP, LIVR, 10024-1, 3016-3, 62920-0 #### [facility] ([id number]) [address], [address] [place] [address] TROPONIN I, HIGH SENSITIVITY 4 ng/L Normal <16 [facility] Comment on above: Performed By: #### C BCA, BMP, LIVR, 68481-4, 3016-3, 35522-4 #### [facility] ([id number]) [address], [address] [place] [address] XR KNEE RT 1 OR 2 VWSon [...] Total right knee arthroplasty in good alignment. 97 Finalized by Hattie Ngo MD on 07/19/2023 12:38 PM Normal [facility] Erythrocyte distribution wid th Auto (RBC) [Ratio]on 07-06-2023 Erythrocyte distribution width (RBC) [Ratio] 13.2 % 11.0-15.0 [facility] Estimated glomerular filtrat ion rate (GFR) non- Americanon 07-06-2023 GFR/1.73 sq M.predicted among non-blacks MDRD (S/P/Bld) [Vol rate/Area] 34 mL/min/{1.73_m2} >=60 [facility] Hematocrit Auto (Bld) [Volum e fraction]on 07-06-2023 Hematocrit (Bld) [Volume fraction] 30.0 % 36.0-48.0 [facility] Hemoglobin [Mass/volume] in Bloodon 07-06-2023 Hemoglobin (Bld) [Mass/Vol] 9.5 g/dL 12.0-16.0 [facility] Iron binding capacity [Mass/ volume] in Serum or Plasmaon 07-06-2023 Iron binding capacity [Mass/Vol] 250.0 ug/dL 250.0-450.0 [facility] Iron saturation [Mass Fracti on] in Serum or Plasmaon 07-06-2023 Iron saturation [Mass fraction] 26.8 % [facility] - Chemistry and C hemistry - challengeon 07-06-2023 Albumin [Mass/Vol] 4.3 g/dL 3.4-5.0 [facility] Calcium [Mass/Vol] 9.5 mg/dL 8.5-10.1 [facility] Chloride [Moles/Vol] 105 mmol/L 98-107 [facility] CO2 [Moles/Vol] 25.2 mmol/L 21.0-32.0 [facility] Creatinine [Mass/Vol] 1.49 mg/dL 0.55-1.02 [facility] Ferritin [Mass/Vol] 172.0 ng/mL 8.0-252.0 [facility] GFR/1.73 sq M.predicted MDRD (S/P/Bld) [Vol rate/Area] 41 mL/min/{1.73_m2} >=60 [facility] Glucose [Mass/Vol] 107 mg/dL 74-106 [facility] Iron [Mass/Vol] 67.0 ug/dL 50.0-170.0 [facility] Magnesium [Mass/Vol] 2.1 mg/dL 1.8-2.4 [facility] Potassium [Moles/Vol] 5.6 mmol/L 3.5-5.1 [facility] Sodium [Moles/Vol] 139 mmol/L 136-145 [facility] Urate [Mass/Vol] 6.9 mg/dL 2.6-6.0 [facility] Urea nitrogen [Mass/Vol] 25.0 mg/dL 7.0-18.0 [facility] Urea nitrogen/Creatinine [Mass ratio] 16.8 mg/mg [facility] Laboratory - Urinalysison Protein (U) [Mass/Vol] 6.8 mg/dL <=11.9 [facility] Leukocytes [#/volume] correc azul for nucleated erythrocytes in Blood by Automated counon 07-06-2023 WBC corrected for nucl RBC Auto (Bld) [#/Vol] 6.4 10 3/uL 4.0-11.0 [facility] MCH Auto (RBC) [Entitic mass ]on 07-06-2023 MCH (RBC) [Entitic mass] 30.3 pg 26.7-34.0 [facility] MCHC Auto (RBC) [Mass/Vol]on 07-06-2023 MCHC (RBC) [Mass/Vol] 31.7 g/dL 29.9-35.2 [facility] MCV Auto (RBC) [Entitic vol] on 07-06-2023 MCV (RBC) [Entitic vol] 95.5 fL 81.0-99.0 [facility] No Panel Informationon 07-05 25-Hydroxy Vitamin D Total 57.7 ng/mL [facility] Comment on above: <20 ng/mL Vit D defi cient20-<30 ng/mL Vit D kucgmqinjdmb25-389 ng/mL Vit D sufficient>100 ng/mL Potential Toxicity Parathyroid Hormone (Intact) 81 pg/mL 1565 [facility] Comment on above: Performed at: [facility] [place] [address] [id number] Director: Tavon Arevalo PhD, Phone: [phone] Phosphorus Level 4.0 mg/dL 2.6-4.7 [facility] Urine Random Creatinine 65.39 mg/dL 20.00-300.0 0 [facility] Platelet mean volume Auto (B ld) [Entitic vol]on 07-06-2023 Platelet mean volume (Bld) [Entitic vol] 10.3 fL 9.5-13.5 [facility] Platelets Auto (Bld) [#/Vol] on 07-06-2023 Platelets (Bld) [#/Vol] 241 10 3/uL 150-450 [facility] RBC Auto (Bld) [#/Vol]on RBC (Bld) [#/Vol] 3.14 10 6/uL 4.20-5.40 [facility] Serum or plasma anion gap de terminationon 07-06-2023 Anion gap [Moles/Vol] 14.4 mmol/L [facility] Urine protein/creatinine rat ioon 07-06-2023 Protein/Creatinine (U) [Ratio] 0.10 [facility] BASIC METABOLIC PANLon 06-21 Anion gap [Moles/Vol] 11 mmol/L Normal 5-15 [facility] Comment on above: Performed By: #### C BCA, BMP, LIVR, 19060-7, 3016-3, 18844-8 #### [facility] ([id number]) [address], [address] [place] [address] Calcium [Mass/Vol] 9.5 mg/dL Normal 8.5-10.5 [facility] Comment on above: Performed By: #### C BCA, BMP, LIVR, 50827-7, 3016-3, 19543-4 #### [facility] ([id number]) [address], [address] [place] [address] Chloride [Moles/Vol] 106 mmol/L Normal 98-109 [facility] Comment on above: Performed By: #### C BCA, BMP, LIVR, 48102-8, 3016-3, 24400-2 #### [facility] ([id number]) [address], [address] [place] [address] CO2 [Moles/Vol] 24 mmol/L Normal 22-32 [facility] Comment on above: Performed By: #### C BCA, BMP, LIVR, 24503-1, 3016-3, 89260-0 #### [facility] ([id number]) [address], [address] [place] [address] Creatinine [Mass/Vol] 1.48 mg/dL High 0.40-1.00 [facility] Comment on above: Result Comment: METH OD TRACEABLE TO IDMS STANDARD Performed By: #### C BCA, BMP, LIVR, 22939-4, 3016-3, 68530-3 #### [facility] ([id number]) [address], [address] [place] [address] GFR/1.73 sq M.predicted among non-blacks MDRD (S/P/Bld) [Vol rate/Area] 37 mL/min/{1.73_m2} Low >59 [facility] Comment on above: Result Comment: Reported eGFR is based on the CKD-EPI 2020 equation that does not use a race coefficient. Performed By: #### C BCA, BMP, LIVR, 84696-5, 3016-3, 49677-5 #### [facility] ([id number]) [address] [address] [place] [address] Glucose [Mass/Vol] 99 mg/dL Normal 65-99 [facility] Comment on above: Performed By: #### C BCA, BMP, LIVR, 79851-2, 3016-3, 01243-2 #### [facility] ([id number]) [address] [address] [place] [address] Potassium [Moles/Vol] 5.5 mmol/L High 3.5-5.0 [facility] Comment on above: Performed By: #### C BCA, BMP, LIVR, 60236-4, 3016-3, 82268-9 #### [facility] ([id number]) [address], [address] [place] [address] Sodium [Moles/Vol] 141 mmol/L Normal 134-146 [facility] Comment on above: Performed By: #### C BCA, BMP, LIVR, 99500-4, 3016-3, 15720-6 #### [facility] ([id number]) [address] [address] [place] [address] Urea nitrogen [Mass/Vol] 25 mg/dL Normal 5-27 [facility] Comment on above: Performed By: #### C BCA, BMP, LIVR, 12695-5, 3016-3, 04677-4 #### [facility] ([id number]) [address], [address] [address] CBC AND AUTO DIFFon 06-22-19 24 ABSOLUTE BASOPHIL 0.0 X10E9/L Normal 0.0-0.2 [facility] Comment on above: Performed By: #### C BCA, BMP, PINR #### [facility] ([id number]) [address] [address] ABSOLUTE NEUTROPHIL 4.4 X10E9/L Normal 1.5-6.6 [facility] Comment on above: Performed By: #### C BCA, BMP, PINR #### [facility] ([id number]) [address] [address] Basophils/100 WBC (Bld) 0.4 % Normal [facility] Comment on above: Performed By: #### C BCA, BMP, PINR #### [facility] ([id number]) [address] [address] [place] [address] Eosinophils (Bld) [#/Vol] 0.1 10*3/uL Normal 0.0-0.4 [facility] Comment on above: Performed By: #### C BCA, BMP, PINR #### [facility] ([id number]) [address] [address] [place] [address] Eosinophils/100 WBC (Bld) 1.3 % Normal [facility] Comment on above: Performed By: #### C BCA, BMP, PINR #### [facility] ([id number]) [address] [address] [place] [address] Erythrocyte distribution width (RBC) [Ratio] 14.0 % Normal 11.5-15.0 [facility] Comment on above: Performed By: #### C RADHA BMP, PINR #### [facility] ([id number]) [address] [address] [place] [address] Hematocrit (Bld) [Volume fraction] 28.8 % Low 35-47 [facility] Comment on above: Performed By: #### C TERI GARCIA, PINR #### [facility] ([id number]) [address] [address] [place] [address] Hemoglobin (Bld) [Mass/Vol] 9.9 g/dL Low 11.7-15.5 [facility] Comment on above: Performed By: #### TERI Steele BCA, PINR #### [facility] ([id number]) [address] [address] Lymphocytes (Bld) [#/Vol] 0.9 10*3/uL Low 1.0-3.5 [facility] Comment on above: Performed By: #### C RADHA BMP, PINR #### [facility] ([id number]) [address] [address] [place] [address] Lymphocytes/100 WBC (Bld) 16.5 % Normal [facility] Comment on above: Performed By: #### C BCA, BMP, PINR #### [facility] ([id number]) [address] [address] [place] [address] MCH (RBC) [Entitic mass] 31.3 pg Normal 27-34 [facility] Comment on above: Performed By: #### C BCA, BMP, PINR #### [facility] ([id number]) [address] [address] [place] [address] MCHC (RBC) [Mass/Vol] 34.4 g/dL Normal 32-36 [facility] Comment on above: Performed By: #### TERI Steele BCA, PINR #### [facility] ([id number]) [address], [facility] [address] [place] [address] MCV (RBC) [Entitic vol] 91 fL Normal 80-100 [facility] Comment on above: Performed By: #### C TERI GARCIA, PINR #### [facility] ([id number]) [address] [address] [place] [address] Monocytes (Bld) [#/Vol] 0.3 10*3/uL Normal 0-0.9 [facility] Comment on above: Performed By: #### ETRI Steele BCA, PINR #### [facility] ([id number]) [address] [address] [place] [address] Monocytes/100 WBC (Bld) 4.7 % Normal [facility] Comment on above: Performed By: #### TERI Steele BCA, PINR #### [facility] ([id number]) [address] [address] [place] [address] Neutrophils/100 WBC (Bld) 77.1 % Normal [facility] Comment on above: Performed By: #### TERI Steele BCA, PINR #### [facility] ([id number]) [address] [address] [place] [address] Platelet mean volume (Bld) [Entitic vol] 9.4 fL Normal 7-12 [facility] Comment on above: Performed By: #### TERI Steele BCA, PINR #### [facility] ([id number]) [address] [address] [place] [address] Platelets (Bld) [#/Vol] 219 10*3/uL Normal 150-450 [facility] Comment on above: Performed By: #### C RADHA BMP, PINR #### [facility] ([id number]) [address] [address] [place] [address] RBC COUNT 3.17 X10E12/L Low 3.80-5.20 [facility] Comment on above: Performed By: #### C RADHA, BMP, PINR #### [facility] ([id number]) [address] [address] WBC (Bld) [#/Vol] 5.7 10*3/uL Normal 4.0-11.0 [facility] Comment on above: Performed By: #### C RADHA, TERI, PINR #### [facility] ([id number]) [address] [address] HGB A1C (GLYCO-HGB)on 2023 Glucose [Mass/Vol] 117 mg/dL Normal [facility] Comment on above: Performed By: #### C RADHA, BMP, LIVR, 00108-4, 3016-3, 45251-4 #### [facility] ([id number]) [address] [address] HbA1c (Bld) [Mass fraction] 5.7 % High 4.4-5.6 [facility] Comment on above: Result Comment: NOTE ADA Guidelines Result HgbA1c Normal : less than 5.7 % Prediabetes : 5.7 % to 6.4 % Diabetes : > 6.4 % Use with caution in patients with abnormal hemoglobin variants as the half-life of red blood cells and in vivo glycation rates are affected. Performed By: #### C BCA, BMP, LIVR, 40846-2, 3016-3, 63678-8 #### [facility] ([id number]) [address] [address] [place] [address] PROTIME AND INRon 06-22-2023 INR Coag (PPP) [Relative time] 1.0 {INR} Normal 0.8-1.1 [facility] Comment on above: Performed By: #### C BCA, BMP, LIVR, 42611-1, 3016-3, 51301-7 #### [facility] ([id number]) [address], [address] [place] [address] PT Coag (PPP) [Time] 11.1 s Normal 9.8-13.2 [facility] Comment on above: Performed By: #### C BCA, BMP, LIVR, 40967-2, 3016-3, 00523-5 #### [facility] ([id number]) [address], [address] [place] [address] BASIC METABOLIC PANLon 04-19 Anion gap [Moles/Vol] 9 mmol/L Normal 5-15 [facility] Comment on above: Performed By: #### C BCA, BMP, LIVR, 30470-7, 3016-3, 48793-2 #### [facility] ([id number]) [address], [address] [place] [address] Calcium [Mass/Vol] 9.5 mg/dL Normal 8.5-10.5 [facility] Comment on above: Performed By: #### C BCA, BMP, LIVR, 01346-0, 3016-3, 81035-9 #### [facility] ([id number]) [address], [address] [place] [address] Chloride [Moles/Vol] 105 mmol/L Normal 98-109 [facility] Comment on above: Performed By: #### C BCA, BMP, LIVR, 03108-7, 3016-3, 68834-2 #### [facility] ([id number]) [address], [address] [place] [address] CO2 [Moles/Vol] 26 mmol/L Normal 22-32 [facility] Comment on above: Performed By: #### C BCA, BMP, LIVR, 43886-7, 3016-3, 69534-3 #### [facility] ([id number]) [address], [address] [place] [address] Creatinine [Mass/Vol] 1.43 mg/dL High 0.40-1.00 [facility] Comment on above: Result Comment: METH OD TRACEABLE TO IDMS STANDARD Performed By: #### C BCA, BMP, LIVR, 50829-3, 3016-3, 50995-2 #### [facility] ([id number]) [address] [address] [place] [address] GFR/1.73 sq M.predicted among non-blacks MDRD (S/P/Bld) [Vol rate/Area] 38 mL/min/{1.73_m2} Low >59 [facility] Comment on above: Result Comment: Reported eGFR is based on the CKD-EPI 2020 equation that does not use a race coefficient. Performed By: #### C BCA, BMP, LIVR, 12494-4, 3016-3, 03689-3 #### [facility] ([id number]) [address] [address] [place] [address] Glucose [Mass/Vol] 97 mg/dL Normal 65-99 [facility] Comment on above: Performed By: #### C BCA, BMP, LIVR, 86020-4, 3016-3, 80857-4 #### [facility] ([id number]) [address] [address] [place] [address] Potassium [Moles/Vol] 5.2 mmol/L High 3.5-5.0 [facility] Comment on above: Performed By: #### C BCA, BMP, LIVR, 38754-4, 3016-3, 88899-4 #### [facility] ([id number]) [address] [address] [place] [address] Sodium [Moles/Vol] 140 mmol/L Normal 134-146 [facility] Comment on above: Performed By: #### C BCA, BMP, LIVR, 53930-8, 3016-3, 18558-0 #### [facility] ([id number]) [address], [address] [place] [address] Urea nitrogen [Mass/Vol] 28 mg/dL High 5-27 [facility] Comment on above: Performed By: #### C BCA, BMP, LIVR, 19894-8, 3016-3, 72503-4 #### [facility] ([id number]) [address], [address] [place] [address] Basic metabolic 1998 panelon 04-19-2023 Anion gap [Moles/Vol] 9 mmol/L 5 - 15 mmol/L [facility] Calcium [Mass/Vol] 9.5 mg/dL 8.5 - 10. 5 mg/dL [facility] Chloride [Moles/Vol] 105 mmol/L 98 - 10 9 mmol/L [facility] CO2 [Moles/Vol] 26 mmol/L 22 - 32 mmol/L [facility] Creatine [Mass/Vol] 1.43 mg/dL High 0.40 - 1 .00 mg/dL [facility] Comment on above: METHOD TRACEABLE TO IDMI STANDARD GFR/1.73 sq M.predicted among non-blacks MDRD (S/P/Bld) [Vol rate/Area] 38 mL/min/{1.73_m2} Low - PINF [facility] Comment on above: Reported eGFR is based on the CKD-EPI 2020 equation that does not use a race coefficient. PERFORMED AT [facility] [address],[place] [address] Glucose [Mass/Vol] 97 mg/dL 65 - 99 mg/dL [facility] Potassium [Moles/Vol] 5.2 mmol/L High 3.5 - 5.0 mmol/L [facility] Sodium [Moles/Vol] 140 mmol/L 134 - 146 mmol/L [facility] Urea nitrogen [Mass/Vol] 28 mg/dL High 5 - 27 mg/d L [facility] CBC AND AUTO DIFFon 04-19-19 24 ABSOLUTE BASOPHIL 0.0 X10E9/L Normal 0.0-0.2 [facility] Comment on above: Performed By: #### C BCA, BMP, LIVR, 58089-0, 3016-3, 38928-8 #### [facility] ([id number]) [address], [address] [place] [address] ABSOLUTE NEUTROPHIL 3.4 X10E9/L Normal 1.5-6.6 [facility] Comment on above: Performed By: #### C BCA, BMP, LIVR, 50294-7, 3016-3, 78811-1 #### [facility] ([id number]) [address], [address] [place] [address] Basophils/100 WBC (Bld) 0.5 % Normal [facility] Comment on above: Performed By: #### C BCA, BMP, LIVR, 40471-2, 6-3, 48700-6 #### [facility] ([id number]) [address], [address] [place] [address] Eosinophils (Bld) [#/Vol] 0.2 10*3/uL Normal 0.0-0.4 [facility] Comment on above: Performed By: #### C BCA, BMP, LIVR, 60322-1, 6-3, 79766-2 #### [facility] ([id number]) [address], [address] [place] [address] Eosinophils/100 WBC (Bld) 3.8 % Normal [facility] Comment on above: Performed By: #### C BCA, BMP, LIVR, 28239-6, 3016-3, 28999-5 #### [facility] ([id number]) [address], [address] [place] [address] Erythrocyte distribution width (RBC) [Ratio] 15.4 % High 11.5-15.0 [facility] Comment on above: Performed By: #### C BCA, BMP, LIVR, 95501-9, 3016-3, 78193-5 #### [facility] ([id number]) [address], [address] [place] [address] Hematocrit (Bld) [Volume fraction] 32.5 % Low 35-47 [facility] Comment on above: Performed By: #### C BCA, BMP, LIVR, 09259-2, 3016-3, 69010-2 #### [facility] ([id number]) [address], [facility] [address] [place] [address] Hemoglobin (Bld) [Mass/Vol] 10.8 g/dL Low 11.7-15.5 [facility] Comment on above: Performed By: #### C BCA, BMP, LIVR, 93020-0, 3016-3, 15528-1 #### [facility] ([id number]) [address], [address] [place] [address] Lymphocytes (Bld) [#/Vol] 1.6 10*3/uL Normal 1.0-3.5 [facility] Comment on above: Performed By: #### C BCA, BMP, LIVR, 77468-2, 3016-3, 89238-5 #### [facility] ([id number]) [address], [facility] [address] [place] [address] Lymphocytes/100 WBC (Bld) 29.5 % Normal [facility] Comment on above: Performed By: #### C BCA, BMP, LIVR, 18013-1, 3016-3, 88956-8 #### [facility] ([id number]) [address] [address] [place] [address] MCH (RBC) [Entitic mass] 29.7 pg Normal 27-34 [facility] Comment on above: Performed By: #### C BCA, BMP, LIVR, 59941-7, 3016-3, 93343-8 #### [facility] ([id number]) [address], [address] [place] [address] MCHC (RBC) [Mass/Vol] 33.3 g/dL Normal 32-36 [facility] Comment on above: Performed By: #### C BCA, BMP, LIVR, 55376-1, 3016-3, 00173-8 #### [facility] ([id number]) [address], [address] [place] [address] MCV (RBC) [Entitic vol] 89 fL Normal 80-100 [facility] Comment on above: Performed By: #### C BCA, BMP, LIVR, 15964-5, 3015-3, 11546-9 #### [facility] ([id number]) [address], [address] [place] [address] Monocytes (Bld) [#/Vol] 0.3 10*3/uL Normal 0-0.9 [facility] Comment on above: Performed By: #### C BCA, BMP, LIVR, 68338-3, 3015-3, 59142-2 #### [facility] ([id number]) [address] [address] [place] [address] Monocytes/100 WBC (Bld) 5.0 % Normal [facility] Comment on above: Performed By: #### C BCA, BMP, LIVR, 93022-2, 3015-3, 99629-8 #### [facility] ([id number]) [address] [address] [place] [address] Neutrophils/100 WBC (Bld) 61.2 % Normal [facility] Comment on above: Performed By: #### C BCA, BMP, LIVR, 92674-1, 3016-3, 04702-0 #### [facility] ([id number]) [address], [address] [place] [address] Platelet mean volume (Bld) [Entitic vol] 9.3 fL Normal 7-12 [facility] Comment on above: Performed By: #### C BCA, BMP, LIVR, 52450-7, 3016-3, 85204-4 #### [facility] ([id number]) [address], [address] [place] [address] Platelets (Bld) [#/Vol] 215 10*3/uL Normal 150-450 [facility] Comment on above: Performed By: #### C BCA, BMP, LIVR, 89390-5, 3016-3, 35756-1 #### [facility] ([id number]) [address], [facility] [address] [place] [address] RBC COUNT 3.64 X10E12/L Low 3.80-5.20 [facility] Comment on above: Performed By: #### C BCA, BMP, LIVR, 19785-2, 3016-3, 82648-4 #### [facility] ([id number]) [address], [facility] [address] [place] [address] WBC (Bld) [#/Vol] 5.6 10*3/uL Normal 4.0-11.0 [facility] Comment on above: Performed By: #### C BCA, BMP, LIVR, 91844-6, 3016-3, 10966-7 #### [facility] ([id number]) [address], [facility] [address] [place] [address] CBC W Auto Differential pane l (Bld)on 04-19-2023 ABSOLUTE BASOPHIL 0.0 [facility] Comment on above: PERFORMED AT [facility] [address] [facility] [address],[place] [address] Basophils/100 WBC (Bld) 0.5 % [facility] Eosinophils (Bld) [#/Vol] 0.2 10*3/uL [facility] Eosinophils/100 WBC (Bld) 3.8 % [facility] Erythrocyte distribution width (RBC) [Ratio] 15.4 % High 11.5 - 15.0 % [facility] Hematocrit (Bld) [Volume fraction] 32.5 % Low 35 - 47 % [facility] Hemoglobin (Bld) [Mass/Vol] 10.8 g/dL Low 11.7 - 15.5 g/dL [facility] Lymphocytes (Bld) [#/Vol] 1.6 10*3/uL [facility] Lymphocytes/100 WBC (Bld) 29.5 % [facility] MCH (RBC) [Entitic mass] 29.7 pg 27 - 34 pg [facility] MCHC (RBC) [Mass/Vol] 33.3 g/dL 32 - 36 g/dL [facility] MCV (RBC) [Entitic vol] 89 fL 80 - 100 fL [facility] Monocytes (Bld) [#/Vol] 0.3 10*3/uL [facility] Monocytes/100 WBC (Bld) 5.0 % [facility] Neutrophils (Bld) [#/Vol] 3.4 10*3/uL [facility] Neutrophils/100 WBC (Bld) 61.2 % [facility] Platelet mean volume (Bld) [Entitic vol] 9.3 fL 7 - 12 fL [facility] Platelets (Bld) [#/Vol] 215 10*3/uL [facility] RBC (Bld) [#/Vol] 3.64 10*6/uL Low [facility] WBC corrected for nucl RBC Auto (Bld) [#/Vol] 5.6 [facility] HGB A1C (GLYCO-HGB)on 2023 Glucose [Mass/Vol] 128 mg/dL Normal [facility] Comment on above: Performed By: #### C BCA, BMP, LIVR, 71043-2, 3016-3, 72310-6 #### [facility] ([id number]) [address] [place] [address] HbA1c (Bld) [Mass fraction] 6.1 % High 4.4-5.6 [facility] Comment on above: Result Comment: NOTE ADA Guidelines Result HgbA1c Normal : less than 5.7 % Prediabetes : 5.7 % to 6.4 % Diabetes : > 6.4 % Use with caution in patients with abnormal hemoglobin variants as the half-life of red blood cells and in vivo glycation rates are affected. Performed By: #### C BCA, BMP, LIVR, 93728-1, 3016-3, 30837-3 #### [facility] ([id number]) [address], [address] [place] [address] LIVER PANELon 04-19-2023 Albumin [Mass/Vol] 4.6 g/dL Normal 3.2-5.3 [facility] Comment on above: Performed By: #### C BCA, BMP, LIVR, 35141-3, 3016-3, 78046-8 #### [facility] ([id number]) [address], [address] [place] [address] ALP [Catalytic activity/Vol] 43 U/L Normal 39-130 [facility] Comment on above: Performed By: #### C BCA, BMP, LIVR, 36179-7, 3016-3, 74779-8 #### [facility] [facility] ([id number]) [address], [address] [place] [address] ALT [Catalytic activity/Vol] 13 U/L Normal 0-31 [facility] Comment on above: Performed By: #### C BCA, BMP, LIVR, 66091-6, 3016-3, 54482-6 #### [facility] ([id number]) [address], [address] [place] [address] AST [Catalytic activity/Vol] 17 U/L Normal 0-41 [facility] Comment on above: Performed By: #### C BCA, BMP, LIVR, 40559-8, 3016-3, 63180-2 #### [facility] ([id number]) [address], [address] [place] [address] Bilirubin [Mass/Vol] 0.5 mg/dL Normal 0.3-1.2 [facility] Comment on above: Performed By: #### C BCA, BMP, LIVR, 91218-2, 3016-3, 08492-7 #### [facility] ([id number]) [address], [address] [place] [address] Bilirubin.direct [Mass/Vol] 0.1 mg/dL Normal 0.0-0.4 [facility] Comment on above: Performed By: #### C BCA, BMP, LIVR, 61233-1, 3016-3, 83868-4 #### [facility] ([id number]) [address], [address] [place] [address] Protein [Mass/Vol] 7.0 g/dL Normal 6.0-8.0 [facility] Comment on above: Performed By: #### C BCA, BMP, LIVR, 52403-4, 3016-3, 19701-1 #### [facility] ([id number]) [address], [address] [place] [address] Lipid 1996 panelon 4 Cholesterol [Mass/Vol] 177 mg/dL Normal 150-200 [facility] Comment on above: Performed By: #### C BCA, BMP, LIVR, 91911-6, 3016-3, 15189-5 #### [facility] ([id number]) [address], [address] [place] [address] Cholesterol in HDL [Mass/Vol] 48 mg/dL Normal >39 [facility] Comment on above: Result Comment: HDL <40 mg/dL - High Risk HDL > or = 40mg/dL- Desirable HDL >60 mg/dL - Negative Risk Performed By: #### C BCA, BMP, LIVR, 49320-6, 3016-3, 21521-3 #### [facility] ([id number]) [address] [address] Cholesterol in LDL [Mass/Vol] 81 mg/dL Normal <130 [facility] Comment on above: Result Comment: LDL <100 mg/dL - Desirable LDL >160 mg/dL - High Risk Performed By: #### C BCA, BMP, LIVR, 24020-6, 3016-3, 65566-9 #### [facility] ([id number]) [address] [address] Cholesterol in VLDL [Mass/Vol] 48 mg/dL High 0-30 [facility] Comment on above: Performed By: #### C BCA, BMP, LIVR, 41496-3, 3016-3, 95467-3 #### [facility] ([id number]) [address] [address] CHOLESTEROL:HDL 3.7 Normal 1.0-5.0 [facility] Comment on above: Performed By: #### C BCA, BMP, LIVR, 06605-0, 3016-3, 52560-4 #### [facility] ([id number]) [address] [address] Triglyceride [Mass/Vol] 239 mg/dL High 27-150 [facility] Comment on above: Performed By: #### C BCA, BMP, LIVR, 12340-2, 3016-3, 06114-3 #### [facility] ([id number]) [address] [address] MICROALBUMIN - ALBUMIN:CREAT ININE URINE RATIOon 04-19-2023 ALB/CREAT RATIO 26.4 mg/g creat Normal 0.0-30.0 [facility] Comment on above: Performed By: #### M ALBU #### [facility] ([id number]) [address] [facility], [address] [place] [address] Albumin DL <= 20 mg/L (U) [Mass/Vol] 2.0 mg/dL High 0.0-1.9 [facility] Comment on above: Performed By: #### M ALBU #### [facility] ([id number]) [address] [place] [address], [address] [place] [address] URINE CREAT 75.68 mg/dL Normal [facility] Comment on above: Performed By: #### M ALBU #### [facility] ([id number]) [address] [place] [address], [address] [place] [address] No Panel Informationon 04-19 Interpretation and review of laboratory results Abnormal [facility] TSH Qnon 04-19-2023 TSH 1.47 uIU/mL Normal 0.49-4.67 [facility] Comment on above: Performed By: #### C BCA, BMP, LIVR, 83453-9, 3016-3, 00709-4 #### [facility] ([id number]) [address] [place] [address], [address] [place] [address] Vitamin D+Metabolites [Mass/ Vol]on 04-19-2023 VITAMIN D 25 HYD TOT 51.9 ng/mL Normal 30-100 [facility] Comment on above: Result Comment: Vitamin D status 25 [place] Vitamin D Deficiency <20 ng/mL Insufficiency 20-29 ng/mL Sufficiency 30-100 ng/mL Toxicity >100 ng/mL NOTE: A pediatric reference range has not been established by the clearing distribution clerk of this kit. The [place] [employer] recommends a Vitamin D level of = or >20ng/mL in infants and children. Performed By: #### C BCA, BMP, LIVR, 54234-6, 3016-3, 63873-6 #### [facility] ([id number]) [address] [place] [address], [address] [place] [address] MR KNEE RIGHT WO IV CONTRAST on [...] R T knee to be done at [facility] [place] [facility] scheduled 04/12/23 at 10:30 for the mri, thank you Surgical Pathologyon [address] [facility] Comment on above: Result Comment: [facility] [employer] [facility] [address] [place] [address] Surgical Pathology Consultation Patient Name:MALGORZATA REYES:1945 (Age: 77)Gender:FTaken:4Reported:1/5/2024Physician(s):Michaela Yuan MD ([phone])Copy To: Rec. #:[id number]: #[id number] Final Pathologic Diagnosis 1. Duodenal polyps, biopsy: [...] No dysplasia identified. Report Electronically Signed Out ssi/03/10/2023Florian Card M.D. Interpretation performed at [facility], [address] [place] [address], License number: [id number]. Clinical History Iron deficient/anemia. Gross Description 1. Received in formalin labeled, SEAMON, duodenum are 3 palacio delicate to friable soft tissue bits, each 0.3 cm in greatest dimension. The specimens are filtered and submitted in a single cassette. (1, ns, [id number], m7) TB 2. Received in formalin labeled, SEAMON, antral are 2 palacio delicate soft tissue bits, 0.2 and 0.3 cm in greatest dimension. The specimens are filtered and submitted in a single cassette. (1, ns, [id number], m7) TB 3. Received in formalin labeled, SEAMON, fundus are 2 pale-palacio delicate soft tissue bits, 0.3 and 0.4 cm in greatest dimension. The specimens are filtered and submitted in a single cassette. (1, ns, [id number], m7) TB 4. Received in formalin labeled, SEAMON, 45 cm colon polyps is a pale-palacio feathery soft tissue bits, 0.4 cm in greatest dimension. The specimens are filtered and submitted in a single cassette. (1, ns, [id number], m7) TB tgb/03/08/2023GR Specimen(s) Received 1: Duodenum x2 polyps 2: Antrum biopsy 3: Fundic stomach 4: Colon polyp at 45cm Fee Codes(s): 1; 38552 2; 75461 3; 91245 4; 56818 GLYCOHEMOGLOBIN A1Con 2022 ADA RECOMMENDATION SEE BELOW Normal [facility] Comment on above: Result Comment: ADA RECOMMENDED LIMIT 4.0 - 6.0 ADA THERAPEUTIC TARGET < 7.0 ACTION SUGGESTED > 7.0 Performed By: #### B MP, LIPID, AST, TSH, ALT #### [facility] [address] [address] [address] Viri Strong Glucose [Mass/Vol] 126 mg/dL Normal [facility] Comment on above: Performed By: #### B MP, LIPID, AST, TSH, ALT #### [facility] [address] [address] [address] Viri Strong HbA1c (Bld) [Mass fraction] 6.0 % Normal 4.5-6.2 [facility] Comment on above: Performed By: #### B MP, LIPID, AST, TSH, ALT #### [facility] [address] [address] [address] Viri Strong RENAL FUNCTION PANELon 03-15 Albumin [Mass/Vol] 4.1 g/dL Normal 3.4-5.0 [facility] Comment on above: Performed By: #### B MP, LIPID, AST, TSH, ALT #### [facility] [address] [address] [address] Viri Strong Calcium [Mass/Vol] 9.1 mg/dL Normal 8.5-10.1 [facility] Comment on above: Performed By: #### B MP, LIPID, AST, TSH, ALT #### [facility] [address] [address] [address] Viri Strong Chloride [Moles/Vol] 107 mmol/L Normal 98-107 [facility] Comment on above: Performed By: #### B MP, LIPID, AST, TSH, ALT #### [facility] [address] [address] [address] Viri Strong CO2 [Moles/Vol] 24.6 mmol/L Normal 21.0-32.0 [facility] Comment on above: Performed By: #### B MP, LIPID, AST, TSH, ALT #### [facility] [address] [place] [address] Dr. Viri Strong Creatinine [Mass/Vol] 1.31 mg/dL Critically high 0.55-1.02 [facility] Comment on above: Performed By: #### B MP, LIPID, AST, TSH, ALT #### [facility] [address] [place] [address] Dr. Viri Strong EGFR-AF EMIRATI 48 mL/min/1.73m2 Critically low >=60 [facility] Comment on above: Performed By: #### B MP, LIPID, AST, TSH, ALT #### [facility] [address] [place] [address] Dr. Viri Strong EGFR-NON AF EMIRATI 40 mL/min/1.73m2 Critically low >=60 [facility] Comment on above: Performed By: #### B MP, LIPID, AST, TSH, ALT #### [facility] [address] [place] [address] Dr. Viri Strong Glucose [Mass/Vol] 99 mg/dL Normal 74-106 [facility] Comment on above: Performed By: #### B MP, LIPID, AST, TSH, ALT #### [facility] [address] [place] [address] Dr. Viri Strong Phosphate [Mass/Vol] 3.4 mg/dL Normal 2.6-4.7 [facility] Comment on above: Performed By: #### B MP, LIPID, AST, TSH, ALT #### [facility] [address] [place] [address] Dr. Viri Strong Potassium [Moles/Vol] 4.6 mmol/L Normal 3.5-5.1 [facility] Comment on above: Performed By: #### B MP, LIPID, AST, TSH, ALT #### [facility] [address] [place] [address] Dr. Viri Strong Sodium [Moles/Vol] 141 mmol/L Normal 136-145 [facility] Comment on above: Performed By: #### B MP, LIPID, AST, TSH, ALT #### [facility] [address] [address] [address] Viri Strong Urea nitrogen [Mass/Vol] 28.0 mg/dL Critically high 7.0-18 .0 [facility] Comment on above: Performed By: #### B MP, LIPID, AST, TSH, ALT #### [facility] [address] [address] [address] Viri Strong RENAL FUNCTION PANELon 01-31 Albumin [Mass/Vol] 4.1 g/dL Normal 3.4-5.0 [facility] Comment on above: Performed By: #### B MP, LIPID, AST, TSH, ALT #### [facility] [address] [place] [address] Dr. Viri Strong Calcium [Mass/Vol] 9.3 mg/dL Normal 8.5-10.1 [facility] Comment on above: Performed By: #### B MP, LIPID, AST, TSH, ALT #### [facility] [address] [place] [address] Dr. Viri Strong Chloride [Moles/Vol] 105 mmol/L Normal 98-107 [facility] Comment on above: Performed By: #### B MP, LIPID, AST, TSH, ALT #### [facility] [address] [place] [address] Dr. Viri Strong CO2 [Moles/Vol] 22.5 mmol/L Normal 21.0-32.0 [facility] Comment on above: Performed By: #### B MP, LIPID, AST, TSH, ALT #### [facility] [address] [place] [address] Dr. Viri Strong Creatinine [Mass/Vol] 1.31 mg/dL Critically high 0.55-1.02 [facility] Comment on above: Performed By: #### B MP, LIPID, AST, TSH, ALT #### [facility] [address] [place] [address] Dr. Viri Strong EGFR-AF EMIRATI 48 mL/min/1.73m2 Critically low >=60 [facility] Comment on above: Performed By: #### B MP, LIPID, AST, TSH, ALT #### [facility] [address] [address] [address] Viri Strong EGFR-NON AF EMIRATI 40 mL/min/1.73m2 Critically low >=60 [facility] Comment on above: Performed By: #### B MP, LIPID, AST, TSH, ALT #### [facility] [address] [address] [address] Viri Strong Glucose [Mass/Vol] 105 mg/dL Normal 74-106 [facility] Comment on above: Performed By: #### B MP, LIPID, AST, TSH, ALT #### [facility] [address] [place] [address] Dr. Viri Strong Phosphate [Mass/Vol] 3.2 mg/dL Normal 2.6-4.7 [facility] Comment on above: Performed By: #### B MP, LIPID, AST, TSH, ALT #### [facility] [address] [place] [address] Dr. Viri Strong Potassium [Moles/Vol] 5.0 mmol/L Normal 3.5-5.1 [facility] Comment on above: Performed By: #### B MP, LIPID, AST, TSH, ALT #### [facility] [address] [place] [address] Dr. Viri Strong Sodium [Moles/Vol] 138 mmol/L Normal 136-145 [facility] Comment on above: Performed By: #### B MP, LIPID, AST, TSH, ALT #### [facility] [address] [place] [address] Dr. Viri Strong Urea nitrogen [Mass/Vol] 24.0 mg/dL Critically high 7.0-18 .0 [facility] Comment on above: Performed By: #### B MP, LIPID, AST, TSH, ALT #### [facility] [address] [place] [address] Dr. Viri Strong MAGNESIUMon 01-19-2022 Magnesium [Mass/Vol] 2.1 mg/dL Normal 1.8-2.4 [facility] Comment on above: Performed By: #### B MP, LIPID, AST, TSH, ALT #### [facility] [address] [address] [address] Viri Strong RENAL FUNCTION PANELon 01-19 Albumin [Mass/Vol] 4.4 g/dL Normal 3.4-5.0 [facility] Comment on above: Performed By: #### B MP, LIPID, AST, TSH, ALT #### [facility] [address] [address] [address] Viri Strong Calcium [Mass/Vol] 9.7 mg/dL Normal 8.5-10.1 [facility] Comment on above: Performed By: #### B MP, LIPID, AST, TSH, ALT #### [facility] [address] [place] [address] Dr. Viri Strong Chloride [Moles/Vol] 101 mmol/L Normal 98-107 [facility] Comment on above: Performed By: #### B MP, LIPID, AST, TSH, ALT #### [facility] [address] [place] [address] Dr. Viri Strong CO2 [Moles/Vol] 26.8 mmol/L Normal 21.0-32.0 [facility] Comment on above: Performed By: #### B MP, LIPID, AST, TSH, ALT #### [facility] [address] [place] [address] Dr. Viri Strong Creatinine [Mass/Vol] 1.37 mg/dL Critically high 0.55-1.02 [facility] Comment on above: Performed By: #### B MP, LIPID, AST, TSH, ALT #### [facility] [address] [place] [address] Dr. Viri Strong EGFR-AF EMIRATI 46 mL/min/1.73m2 Critically low >=60 [facility] Comment on above: Performed By: #### B MP, LIPID, AST, TSH, ALT #### [facility] [address] [place] [address] Dr. Viri Strong EGFR-NON AF EMIRATI 38 mL/min/1.73m2 Critically low >=60 [facility] Comment on above: Performed By: #### B MP, LIPID, AST, TSH, ALT #### [facility] [address] [address] [address] Viri Strong Glucose [Mass/Vol] 88 mg/dL Normal 74-106 [facility] Comment on above: Performed By: #### B MP, LIPID, AST, TSH, ALT #### [facility] [address] [place] [address] Dr. Viri Strong Phosphate [Mass/Vol] 4.2 mg/dL Normal 2.6-4.7 [facility] Comment on above: Performed By: #### B MP, LIPID, AST, TSH, ALT #### [facility] [address] [place] [address] Dr. Viri Strong Potassium [Moles/Vol] 5.3 mmol/L Critically high 3.5-5.1 [facility] Comment on above: Performed By: #### B MP, LIPID, AST, TSH, ALT #### [facility] [address] [place] [address] Dr. Viri Strong Sodium [Moles/Vol] 135 mmol/L Critically low 136-[address] [facility] Comment on above: Performed By: #### B MP, LIPID, AST, TSH, ALT #### [facility] [address] [place] [address] Dr. Viri Strong Urea nitrogen [Mass/Vol] 35.0 mg/dL Critically high 7.0-18 .0 [facility] Comment on above: Performed By: #### B MP, LIPID, AST, TSH, ALT #### [facility] [address] [place] [address] Dr. Viri Strong UA RANDOM W/MICROSCOPICon BACTERIA NONE SEEN Normal NONE SEEN [facility] Comment on above: Performed By: #### B MP, LIPID, AST, TSH, ALT #### [facility] [address] [place] [address] Dr. Viri Strong Bilirubin Ql (U) Negative Normal NEGATIVE [facility] Comment on above: Performed By: #### B MP, LIPID, AST, TSH, ALT #### [facility] [address] [address] [address] Viri Strong CAST NONE SEEN Normal NONE SEEN [facility] Comment on above: Performed By: #### B MP, LIPID, AST, TSH, ALT #### [facility] [address] [address] [address] Viri Strong Clarity (U) CLEAR Normal CLEAR [facility] Comment on above: Performed By: #### B MP, LIPID, AST, TSH, ALT #### [facility] [address] [address] [address] Viri Strong Color (U) LT. YELLOW Normal YELLOW [facility] Comment on above: Performed By: #### B MP, LIPID, AST, TSH, ALT #### [facility] [address] [place] [address] Dr. Viri Strong Crystals LM Nom (Urine sed) NONE SEEN Normal NONE SEEN [facility] Comment on above: Performed By: #### B MP, LIPID, AST, TSH, ALT #### [facility] [address] [place] [address] Dr. Viri Strong Epithelial cells LM Ql (Urine sed) RARE Normal NONE SEEN /RARE [facility] Comment on above: Performed By: #### B MP, LIPID, AST, TSH, ALT #### [facility] [address] [address] [address] Viri Strong Glucose Ql (U) Negative Normal NEGATIVE [facility] Comment on above: Performed By: #### B MP, LIPID, AST, TSH, ALT #### [facility] [address] [address] [address] Viri Strong Hemoglobin Ql (U) Negative Normal NEGATIVE [facility] Comment on above: Performed By: #### B MP, LIPID, AST, TSH, ALT #### [facility] [address] [address] [address] Viri Strong Ketones Ql (U) Negative Normal NEGATIVE [facility] Comment on above: Performed By: #### B MP, LIPID, AST, TSH, ALT #### [facility] [address] [address] [address] Viri Strong LEUKOCYTES TRACE Abnormal NEGATIVE [facility] Comment on above: Performed By: #### B MP, LIPID, AST, TSH, ALT #### [facility] [address] [place] [address] Dr. Viri Strong MUCOUS NONE SEEN Normal NONE SEEN [facility] Comment on above: Performed By: #### B MP, LIPID, AST, TSH, ALT #### [facility] [address] [address] [address] Viri Strong Nitrite Ql (U) Negative Normal NEGATIVE [facility] Comment on above: Performed By: #### B MP, LIPID, AST, TSH, ALT #### [facility] [address] [place] [address] Dr. Viri Strong pH (U) 5.0 [pH] Normal 5-9 [facility] Comment on above: Performed By: #### B MP, LIPID, AST, TSH, ALT #### [facility] [address] [address] [address] Viri Strong RBC 0-2 Normal 0-2 [facility] Comment on above: Performed By: #### B MP, LIPID, AST, TSH, ALT #### [facility] [address] [place] [address] Dr. Viri Strong SPEC GRAVITY 1.010 Normal 1.005-<=1.02 5 [facility] Comment on above: Performed By: #### B MP, LIPID, AST, TSH, ALT #### [facility] [address] [address] [address] Viri Strong UA PROTEIN Negative Normal NEGATIVE/ TRACE [facility] Comment on above: Performed By: #### B MP, LIPID, AST, TSH, ALT #### [facility] [address] [place] [address] Dr. Viri Strong Urobilinogen Qn (U) 0.2 {Alem'U}/dL Normal 0.2 - 1. 0 [facility] Comment on above: Performed By: #### B MP, LIPID, AST, TSH, ALT #### [facility] [address] [place] [address] Dr. Viri Strong WBC 2-5 Abnormal NONE SEEN [facility] Comment on above: Performed By: #### B MP, LIPID, AST, TSH, ALT #### [facility] [address] [place] [address] Dr. Viri Strong PTH INTACTon 01-04-2022 PTH, Intact 45 pg/mL Normal 15-65 [facility] Comment on above: Performed By: #### B MP, LIPID, AST, TSH, ALT #### [facility] [address] [place] [address] Dr. Viri Strong FERRITINon 01-03-2022 Ferritin [Mass/Vol] 51.0 ng/mL Normal 8.0-252.0 [facility] Comment on above: Performed By: #### B MP, LIPID, AST, TSH, ALT #### [facility] [address] [place] [address] Dr. Viri Strong HEMOGRAM AND PLATELon 2021 Hematocrit (Bld) [Volume fraction] 31.7 % Critically low 36.0-48.0 [facility] Comment on above: Performed By: #### B MP, LIPID, AST, TSH, ALT #### [facility] [address] [place] [address] Dr. Viri Strong Hemoglobin (Bld) [Mass/Vol] 10.2 g/dL Critically low 12.0-16.0 [facility] Comment on above: Performed By: #### B MP, LIPID, AST, TSH, ALT #### [facility] [address] [place] [address] Dr. Viri Strong MCH (RBC) [Entitic mass] 29.2 pg Normal 26.7-34.0 [facility] Comment on above: Performed By: #### B MP, LIPID, AST, TSH, ALT #### [facility] [address] [place] [address] Dr. Viri Strong MCHC (RBC) [Mass/Vol] 32.2 g/dL Normal 29.9-35.2 [facility] Comment on above: Performed By: #### B MP, LIPID, AST, TSH, ALT #### [facility] [address] [place] [address] Dr. Viri Strong MCV (RBC) [Entitic vol] 90.8 fL Normal 81.0-99.0 [facility] Comment on above: Performed By: #### B MP, LIPID, AST, TSH, ALT #### [facility] [address] [place] [address] Dr. Viri Strong PLT 231 103/ul Normal 150-450 [facility] Comment on above: Performed By: #### B MP, LIPID, AST, TSH, ALT #### [facility] [address] [place] [address] Dr. Viri Strong RBC 3.49 106/ul Critically low 4.20-5.40 [facility] Comment on above: Performed By: #### B MP, LIPID, AST, TSH, ALT #### [facility] [address] [place] [address] Dr. Viri Strong WBC 5.9 103/ul Normal 4.0-11.0 [facility] Comment on above: Performed By: #### B MP, LIPID, AST, TSH, ALT #### [facility] [address] [place] [address] Dr. Viri Strong IRON AND TIBCon 01-03-2022 % SATURATION 18.0 % Normal [facility] Comment on above: Performed By: #### B MP, LIPID, AST, TSH, ALT #### [facility] [address] [place] [address] Dr. Viri Strong Iron [Mass/Vol] 58.0 ug/dL Normal 50.0-170.0 [facility] Comment on above: Performed By: #### B MP, LIPID, AST, TSH, ALT #### [facility] [address] [place] [address] Dr. Viri Strong TIBC DIRECT 322.0 ug/dL Normal 250.0-450.0 [facility] Comment on above: Performed By: #### B MP, LIPID, AST, TSH, ALT #### [facility] [address] [place] [address] Dr. Viri Strong MAGNESIUMon 01-03-2022 Magnesium [Mass/Vol] 2.1 mg/dL Normal 1.8-2.4 [facility] Comment on above: Performed By: #### M G, URIC, RENAL #### [facility] [address] [address] [address] Viri Strong RENAL FUNCTION PANELon 01-03 Albumin [Mass/Vol] 4.3 g/dL Normal 3.4-5.0 [facility] Comment on above: Performed By: #### M G, URIC, RENAL #### [facility] [address] [address] [address] Viri Strong Calcium [Mass/Vol] 9.0 mg/dL Normal 8.5-10.1 [facility] Comment on above: Performed By: #### M G, URIC, RENAL #### [facility] [address] [address] [address] iVri Strong Chloride [Moles/Vol] 108 mmol/L Critically high 98-107 [facility] Comment on above: Performed By: #### M G, URIC, RENAL #### [facility] [address] [address] [address] Viri Strong CO2 [Moles/Vol] 23.4 mmol/L Normal 21.0-32.0 [facility] Comment on above: Performed By: #### M G, URIC, RENAL #### [facility] [address] [address] [address] Viri Strong Creatinine [Mass/Vol] 1.32 mg/dL Critically high 0.55-1.02 [facility] Comment on above: Performed By: #### M G, URIC, RENAL #### [facility] [address] [address] [address] Viri Strong EGFR-AF EMIRATI 48 mL/min/1.73m2 Critically low >=60 [facility] Comment on above: Performed By: #### M G, URIC, RENAL #### [facility] [address] [address] [address] Viri Strong EGFR-NON AF EMIRATI 39 mL/min/1.73m2 Critically low >=60 [facility] Comment on above: Performed By: #### M G, URIC, RENAL #### [facility] [address] [place] [address] Dr. Viri Strong Glucose [Mass/Vol] 92 mg/dL Normal 74-106 [facility] Comment on above: Performed By: #### M G, URIC, RENAL #### [facility] [address] [place] [address] Dr. Viri Strong Phosphate [Mass/Vol] 4.0 mg/dL Normal 2.6-4.7 [facility] Comment on above: Performed By: #### M G, URIC, RENAL #### [facility] [address] [place] [address] Dr. Viri Strong Potassium [Moles/Vol] 4.7 mmol/L Normal 3.5-5.1 [facility] Comment on above: Performed By: #### M G, URIC, RENAL #### [facility] [address] [place] [address] Dr. Viri Strong Sodium [Moles/Vol] 138 mmol/L Normal 136-145 [facility] Comment on above: Performed By: #### M G, URIC, RENAL #### [facility] [address] [place] [address] Dr. Viri Strong Urea nitrogen [Mass/Vol] 33.0 mg/dL Critically high 7.0-18 .0 [facility] Comment on above: Performed By: #### M G, URIC, RENAL #### [facility] [address] [place] [address] Dr. Viri Strong UA RANDOM W/MICROSCOPICon BACTERIA NONE SEEN Normal NONE SEEN [facility] Comment on above: Performed By: #### B MP, LIPID, AST, TSH, ALT #### [facility] [address] [place] [address] Dr. Viri Strong Bilirubin Ql (U) Negative Normal NEGATIVE [facility] Comment on above: Performed By: #### B MP, LIPID, AST, TSH, ALT #### [facility] [address] [place], [place] [id number] Dr. Viri Strong CAST NONE SEEN Normal NONE SEEN [facility] Comment on above: Performed By: #### B MP, LIPID, AST, TSH, ALT #### [facility] [address] [place] [address] Dr. Viri Strong Clarity (U) CLEAR Normal CLEAR [facility] Comment on above: Performed By: #### B MP, LIPID, AST, TSH, ALT #### [facility] [address] [address] [address] Viri Strong Color (U) LT. YELLOW Normal YELLOW [facility] Comment on above: Performed By: #### B MP, LIPID, AST, TSH, ALT #### [facility] [address] [place] [address] Dr. Viri Strong Crystals LM Nom (Urine sed) NONE SEEN Normal NONE SEEN [facility] Comment on above: Performed By: #### B MP, LIPID, AST, TSH, ALT #### [facility] [address] [place] [address] Dr. Viri Strong Epithelial cells LM Ql (Urine sed) NONE SEEN Normal NONE SEEN /RARE [facility] Comment on above: Performed By: #### B MP, LIPID, AST, TSH, ALT #### [facility] [address] [place] [address] Dr. Viri Strong Glucose Ql (U) Negative Normal NEGATIVE [facility] Comment on above: Performed By: #### B MP, LIPID, AST, TSH, ALT #### [facility] [address] [place] [address] Dr. Viri Strong Hemoglobin Ql (U) Negative Normal NEGATIVE [facility] Comment on above: Performed By: #### B MP, LIPID, AST, TSH, ALT #### [facility] [address] [place] [address] Dr. Viri Strong Ketones Ql (U) Negative Normal NEGATIVE [facility] Comment on above: Performed By: #### B MP, LIPID, AST, TSH, ALT #### [facility] [address] [place] [address] Dr. Viri Strong LEUKOCYTES SMALL Abnormal NEGATIVE [facility] Comment on above: Performed By: #### B MP, LIPID, AST, TSH, ALT #### [facility] [address] [address] [address] Viri Strong MUCOUS NONE SEEN Normal NONE SEEN [facility] Comment on above: Performed By: #### B MP, LIPID, AST, TSH, ALT #### [facility] [address] [address] [address] Viri Strong Nitrite Ql (U) Negative Normal NEGATIVE [facility] Comment on above: Performed By: #### B MP, LIPID, AST, TSH, ALT #### [facility] [address] [address] [address] Viri Strong pH (U) 5.5 [pH] Normal 5-9 [facility] Comment on above: Performed By: #### B MP, LIPID, AST, TSH, ALT #### [facility] [address] [place] [address] Dr. Viri Strong RBC 0-2 Normal 0-2 [facility] Comment on above: Performed By: #### B MP, LIPID, AST, TSH, ALT #### [facility] [address] [place] [address] Dr. Viri Strong SPEC GRAVITY 1.020 Normal 1.005-<=1.02 5 [facility] Comment on above: Performed By: #### B MP, LIPID, AST, TSH, ALT #### [facility] [address] [place] [address] Dr. Viri Strong UA PROTEIN Negative Normal NEGATIVE/ TRACE [facility] Comment on above: Performed By: #### B MP, LIPID, AST, TSH, ALT #### [facility] [address] [address] [address] Viri Strong Urobilinogen Qn (U) 0.2 {Alem'U}/dL Normal 0.2 - 1. 0 [facility] Comment on above: Performed By: #### B MP, LIPID, AST, TSH, ALT #### [facility] [address] [place] [address] Dr. Viri Strong WBC 0-2 Abnormal NONE SEEN [facility] Comment on above: Performed By: #### B MP, LIPID, AST, TSH, ALT #### [facility] [address] [place] [address] Dr. Viri Strong URIC ACID SERUMon 01-03-2022 Urate [Mass/Vol] 8.7 mg/dL Critically high 2.6-6.0 [facility] Comment on above: Performed By: #### M G, URIC, RENAL #### [facility] [address] [address] [address] Viri Strong URINE T PROTEIN CREAT RATIOo n 01-03-2022 Protein (U) [Mass/Vol] 30.8 mg/dL Critically high <=12.0 [facility] Comment on above: Performed By: #### B MP, LIPID, AST, TSH, ALT #### [facility] [address] [place] [address] Dr. Viri Strong UR PROT CREAT RAT 0.26 Normal [facility] Comment on above: Performed By: #### B MP, LIPID, AST, TSH, ALT #### [facility] [address] [place] [address] Dr. Viri Strong URINE CREAT 118.48 mg/dL Normal 20.00-300.00 [facility] Comment on above: Performed By: #### B MP, LIPID, AST, TSH, ALT #### [facility] [address] [place] [address] Dr. Viri Strong VITAMIN D 25 OHon 01-03-2022 VIT D 25-OH 36.5 ng/mL Normal [facility] Comment on above: Performed By: #### B MP, LIPID, AST, TSH, ALT #### [facility] [address] [place] [address] Dr. Viri Strong VIT D RANGES SEE BELOW Normal [facility] Comment on above: Result Comment: <20 ng/mL Vit D deficient 20 - <30 ng/mL Vit D insufficient 30 - 100 ng/mL Vit D sufficient >100 ng/mL Potential Toxicity Performed By: #### B MP, LIPID, AST, TSH, ALT #### [facility] [address] [address] [address] Viri Strong MICROALBUMIN URINEon 022 Albumin, Urine 5.1 ug/mL Normal Not Estab. The [facility] Comment on above: Performed By: #### B MP, LIPID, AST, TSH, ALT #### [facility] [address] [address] [address] Viri Strong VIT D 25-OH LABCORPon 2021 Vitamin D, 25-Hydroxy 36.7 ng/mL Normal 30.0-100.0 [facility] Comment on above: Result Comment: Silvina min D deficiency has been defined by the [employer] and an Endocrine Society practice guideline as a level of serum 25-OH vitamin D less than 20 ng/mL (1,2). The Endocrine Society went on to further define vitamin D insufficiency as a level between 21 and 29 ng/mL (2). 1. IOM ([employer]). 2010. Dietary reference intakes for calcium and D. [place]: The National Academies Press. 2. Levon MF, Prakash NC, Diamond KIRBY, et al. Evaluation, treatment, and prevention of vitamin D deficiency: an Endocrine Society clinical practice guideline. JCEM. 2010; 96(7):1911-30. Performed By: #### B MP, LIPID, AST, TSH, ALT #### [facility] [address] [place] [address] Dr. Viri Strong CBC AUTO DIFFon 10-26-2021 BASO # 0.1 103/ul Normal 0.0-0.1 [facility] Comment on above: Performed By: #### B MP, LIPID, AST, TSH, ALT #### [facility] [address] [address] [address] Viri Strong Basophils/100 WBC (Bld) 1.0 % Normal 0.2-2.0 [facility] Comment on above: Performed By: #### B MP, LIPID, AST, TSH, ALT #### [facility] [address] [address] [address] Viri Strong EO # 0.2 103/ul Normal 0.0-0.7 [facility] Comment on above: Performed By: #### B MP, LIPID, AST, TSH, ALT #### [facility] [address] [place] [address] Dr. Viri Strong Eosinophils/100 WBC (Bld) 4.6 % Normal 0.9-7.0 [facility] Comment on above: Performed By: #### B MP, LIPID, AST, TSH, ALT #### [facility] [address] [place] [address] Dr. Viri Strong Erythrocyte distribution width (RBC) [Ratio] 13.5 % Normal 11.0-15.0 [facility] Comment on above: Performed By: #### B MP, LIPID, AST, TSH, ALT #### [facility] [address] [place] [address] Dr. Viri Strong Hematocrit (Bld) [Volume fraction] 32.3 % Critically low 36.0-48.0 [facility] Comment on above: Performed By: #### B MP, LIPID, AST, TSH, ALT #### [facility] [address] [place] [address] Dr. Viri Strong Hemoglobin (Bld) [Mass/Vol] 10.7 g/dL Critically low 12.0-16.0 [facility] Comment on above: Performed By: #### B MP, LIPID, AST, TSH, ALT #### [facility] [address] [place] [address] Dr. Viri Strong IG # 0.01 10e3/ul Normal 0.00-0.03 [facility] Comment on above: Performed By: #### B MP, LIPID, AST, TSH, ALT #### [facility] [address] [place] [address] Dr. Viri Strong IG % 0.2 % Normal 0.0-0.5 [facility] Comment on above: Performed By: #### B MP, LIPID, AST, TSH, ALT #### [facility] [address] [place] [address] Dr. Viri Strong LYMPH # 1.3 103/ul Normal 1.2-3.8 [facility] Comment on above: Performed By: #### B MP, LIPID, AST, TSH, ALT #### [facility] [address] [place] [address] Dr. Viri Strong Lymphocytes/100 WBC (Bld) 25.5 % Normal 20.5-60.0 [facility] Comment on above: Performed By: #### B MP, LIPID, AST, TSH, ALT #### [facility] [address] [place] [address] Dr. Viri Strong MANUAL DIFF REQ NO Normal [facility] Comment on above: Performed By: #### B MP, LIPID, AST, TSH, ALT #### [facility] [address] [place] [address] Dr. Viri Strong MCH (RBC) [Entitic mass] 29.3 pg Normal 26.7-34.0 [facility] Comment on above: Performed By: #### B MP, LIPID, AST, TSH, ALT #### [facility] [address] [place] [address] Dr. Viri Strong MCHC (RBC) [Mass/Vol] 33.1 g/dL Normal 29.9-35.2 [facility] Comment on above: Performed By: #### B MP, LIPID, AST, TSH, ALT #### [facility] [address] [place] [address] Dr. Viri Strong MCV (RBC) [Entitic vol] 88.5 fL Normal 81.0-99.0 [facility] Comment on above: Performed By: #### B MP, LIPID, AST, TSH, ALT #### [facility] [address] [place] [address] Dr. Viri Strong MONO # 0.4 103/ul Normal 0.3-0.8 [facility] Comment on above: Performed By: #### B MP, LIPID, AST, TSH, ALT #### [facility] [address] [place] [address] Dr. Viri Strong Monocytes/100 WBC (Bld) 8.0 % Normal 1.7-12.0 [facility] Comment on above: Performed By: #### B MP, LIPID, AST, TSH, ALT #### [facility] [address] [address] [address] Viri Strong NEUT # 3.0 103/ul Normal 1.4-6.5 [facility] Comment on above: Performed By: #### B MP, LIPID, AST, TSH, ALT #### [facility] [address] [place] [address] Dr. Viri Strong Neutrophils/100 WBC (Bld) 60.7 % Normal 43.0-75.0 [facility] Comment on above: Performed By: #### B MP, LIPID, AST, TSH, ALT #### [facility] [address] [place] [address] Dr. Viri Strong Platelet mean volume (Bld) [Entitic vol] 9.8 fL Normal 9.5-13.5 [facility] Comment on above: Performed By: #### B MP, LIPID, AST, TSH, ALT #### [facility] [address] [place] [address] Dr. Viri Strong PLT 266 103/ul Normal 150-450 [facility] Comment on above: Performed By: #### B MP, LIPID, AST, TSH, ALT #### [facility] [address] [place] [address] Dr. Viri Strong RBC 3.65 106/ul Critically low 4.20-5.40 [facility] Comment on above: Performed By: #### B MP, LIPID, AST, TSH, ALT #### [facility] [address] [place] [address] Dr. Vrii Strong WBC 5.0 103/ul Normal 4.0-11.0 [facility] Comment on above: Performed By: #### B MP, LIPID, AST, TSH, ALT #### [facility] [address] [place] [address] Dr. Viri Strong GLYCOHEMOGLOBIN A1Con 2021 ADA RECOMMENDATION SEE BELOW Normal [facility] Comment on above: Result Comment: ADA RECOMMENDED LIMIT 4.0 - 6.0 ADA THERAPEUTIC TARGET < 7.0 ACTION SUGGESTED > 7.0 Performed By: #### B MP, LIPID, AST, TSH, ALT #### [facility] [address] [address] [address] Viri Strong Glucose [Mass/Vol] 117 mg/dL Normal [facility] Comment on above: Performed By: #### B MP, LIPID, AST, TSH, ALT #### [facility] [address] [address] [address] Viri Strong HbA1c (Bld) [Mass fraction] 5.7 % Normal 4.5-6.2 [facility] Comment on above: Performed By: #### B MP, LIPID, AST, TSH, ALT #### [facility] [address] [address] [address] Viri Strong LIPID PROFILEon 10-26-2021 CHOL-HDL RATIO NORM SEE BELOW Normal [facility] Comment on above: Result Comment: 3.3 - 4.4 LOW RISK 4.4 - 7.1 AVERAGE RISK 7.1 - 11.0 MODERATE RISK >11.0 HIGH RISK Performed By: #### B MP, LIPID, AST, TSH, ALT #### [facility] [address] [address] [address] Viri Strong Cholesterol [Mass/Vol] 158 mg/dL Normal <=200 [facility] Comment on above: Performed By: #### B MP, LIPID, AST, TSH, ALT #### [facility] [address] [address] [address] Viri Strong Cholesterol in HDL [Mass/Vol] 86 mg/dL Critically high 40-60 [facility] Comment on above: Performed By: #### B MP, LIPID, AST, TSH, ALT #### [facility] [address] [address] [address] Viri Strong Cholesterol in LDL [Mass/Vol] 50.0 mg/dL Normal [facility] Comment on above: Performed By: #### B MP, LIPID, AST, TSH, ALT #### [facility] [address] [address] [address] Viri Strong Cholesterol.total/Cholest ana in HDL [Mass ratio] 1.8 {ratio} Normal [facility] Comment on above: Performed By: #### B MP, LIPID, AST, TSH, ALT #### [facility] [address] [address] [address] Viri Strong HDL NORMAL > or = 60 mg/dl - LOW CARDIOVASCULAR RISK <40 mg/dl - HIGH CARDIOVASCULAR RISK Normal [facility] Comment on above: Performed By: #### B MP, LIPID, AST, TSH, ALT #### [facility] [address] [address] [address] Viri Strong LDL CALC NORMAL SEE BELOW Normal [facility] Comment on above: Result Comment: <100 mg/dl OPTIMAL 100 - 129 mg/dl NEAR OR ABOVE OPTIMAL 130 - 159 mg/dl BORDERLINE HIGH 160 - 189 mg/dl HIGH >190 mg/dl VERY HIGH Performed By: #### B MP, LIPID, AST, TSH, ALT #### [facility] [address] [address] [address] Viri Strong Triglyceride [Mass/Vol] 110 mg/dL Normal <=150 [facility] Comment on above: Performed By: #### B MP, LIPID, AST, TSH, ALT #### [facility] [address] [address] [address] Viri Strong VLDL CALC 22.0 mg/dL Normal [facility] Comment on above: Performed By: #### B MP, LIPID, AST, TSH, ALT #### [facility] [address] [place] [address] Dr. Viri Strong PROF CHEM 8 (BAS METB)on Anion gap [Moles/Vol] 13.8 mmol/L Normal [facility] Comment on above: Performed By: #### B MP, LIPID, AST, TSH, ALT #### [facility] [address] [address] [address] Viri Strong Calcium [Mass/Vol] 9.3 mg/dL Normal 8.5-10.1 [facility] Comment on above: Performed By: #### B MP, LIPID, AST, TSH, ALT #### [facility] [address] [address] [address] Viri Strong Chloride [Moles/Vol] 92 mmol/L Critically low 98-107 [facility] Comment on above: Performed By: #### B MP, LIPID, AST, TSH, ALT #### [facility] [address] [address] [address] Viri Strong CO2 [Moles/Vol] 26.0 mmol/L Normal 21.0-32.0 [facility] Comment on above: Performed By: #### B MP, LIPID, AST, TSH, ALT #### [facility] [address] [address] [address] Viri Strong Creatinine [Mass/Vol] 1.15 mg/dL Critically high 0.55-1.02 [facility] Comment on above: Performed By: #### B MP, LIPID, AST, TSH, ALT #### [facility] [address] [place] [address] Dr. Viri Strong EGFR-AF EMIRATI 56 mL/min/1.73m2 Critically low >=60 [facility] Comment on above: Performed By: #### B MP, LIPID, AST, TSH, ALT #### [facility] [address] [address] [address] Viri Strong EGFR-NON AF EMIRATI 46 mL/min/1.73m2 Critically low >=60 [facility] Comment on above: Performed By: #### B MP, LIPID, AST, TSH, ALT #### [facility] [address] [place] [address] Dr. Viri Strong Glucose [Mass/Vol] 92 mg/dL Normal 74-106 [facility] Comment on above: Performed By: #### B MP, LIPID, AST, TSH, ALT #### [facility] [address] [address] [address] Viri Strong Potassium [Moles/Vol] 4.8 mmol/L Normal 3.5-5.1 [facility] Comment on above: Performed By: #### B MP, LIPID, AST, TSH, ALT #### [facility] [address] [address] [address] Viri Strong Sodium [Moles/Vol] 127 mmol/L Critically low 136-145 [facility] Comment on above: Performed By: #### B MP, LIPID, AST, TSH, ALT #### [facility] [address] [place] [address] Dr. Viri Strong Urea nitrogen [Mass/Vol] 19.0 mg/dL Critically high 7.0-18 .0 [facility] Comment on above: Performed By: #### B MP, LIPID, AST, TSH, ALT #### [facility] [address] [place] [address] Dr. Viri Strong Urea nitrogen/Creatinine [Mass ratio] 16.5 mg/mg Normal [facility] Comment on above: Performed By: #### B MP, LIPID, AST, TSH, ALT #### [facility] [address] [place] [address] Dr. Viri Strong SGOTon 10-26-2021 AST [Catalytic activity/Vol] 15 U/L Normal 15-37 [facility] Comment on above: Performed By: #### B MP, LIPID, AST, TSH, ALT #### [facility] [address] [place] [address] Dr. Viri Strong SGPTon 10-26-2021 ALT [Catalytic activity/Vol] 25 U/L Normal 14-59 [facility] Comment on above: Performed By: #### B MP, LIPID, AST, TSH, ALT #### [facility] [address] [place] [address] Dr. Viri Strong TSHon 10-26-2021 TSH 1.833 uIU/mL Normal 0.358-3.740 [facility] Comment on above: Performed By: #### B MP, LIPID, AST, TSH, ALT #### [facility] [address] [place] [address] Dr. Viri Strong FREE LIGHT CHAINS PLUS RATIO on 06-03-2021 Free Gates Lt Chains,S 26.6 mg/L Critically high 3.3-19.4 [facility] Comment on above: Performed By: #### B MP, LIPID, AST, TSH, ALT #### [facility] [address] [place] [address] Dr. Viri Strong Free Lambda Lt Chains,S 19.6 mg/L Normal 5.7-26.[address] [facility] Comment on above: Performed By: #### B MP, LIPID, AST, TSH, ALT #### [facility] [address] [address] [address] Viri Strong Gates/Lambda Ratio, S 1.36 Normal 0.26-1.65 [facility] Comment on above: Performed By: #### B MP, LIPID, AST, TSH, ALT #### [facility] [facility] [address] [place] [address] Dr. Viri Strong IMMUNOFIXATION (MONIKA), URINEo n 06-03-2021 MONIKA Interpretation:U Comment Normal [facility] Comment on above: Result Comment: No m onoclonality detected. Performed By: #### B MP, LIPID, AST, TSH, ALT #### [facility] [address] [place] [address] Dr. Viri Strong PROTEIN ELECTROPHERESIS URIN E RANDOMon 06-03-2021 Albumin, U 60.9 % Normal [facility] Comment on above: Performed By: #### U PTE #### [facility] [address] [place] [address] Dr. Viri Strong Alpha-1 Globulin U 3.9 % Normal [facility] Comment on above: Performed By: #### U PTE #### [facility] [address] [place] [address] Dr. Viri Strong Alpha-2 Glubulin U 8.2 % Normal [facility] Comment on above: Performed By: #### U PTE #### [facility] [address] [place] [address] Dr. Viri Strong Beta Globulin, U 17.3 % Normal [facility] Comment on above: Performed By: #### U PTE #### [facility] [address] [place] [address] Dr. Viri Strong Gamma Globulin U 9.7 % Normal [facility] Comment on above: Performed By: #### U PTE #### [facility] [address] [place] [address] Dr. Viri Strong M-Ciro, % Not Observed Normal Not Observed [facility] Comment on above: Performed By: #### U PTE #### [facility] [address] [place] [address] Dr. Viri Strong PDF . Normal [facility] Comment on above: Performed By: #### U PTE #### [facility] [address] [place] [address] Dr. Viri Strong Please note: Comment Normal [facility] Comment on above: Result Comment: Prot ein electrophoresis scan will follow via computer, mail, or transcription delivery. Performed By: #### U PTE #### [facility] [address] [place] [address] Dr. Viri Strong Protein (U) [Mass/Vol] 12.2 mg/dL Normal Not Estab. [facility] Comment on above: Performed By: #### U PTE #### [facility] [address] [place] [address] Dr. Viri Strong HEP B SURFACE AGon HBsAg Screen Negative Normal Negative [facility] Comment on above: Performed By: #### B MP, LIPID, AST, TSH, ALT #### [facility] [address] [place] [address] Dr. Viri Strong HEPATITIS B SURFACE ANTIBODY , QUANTon 06-02-2021 Hepatitis B Surf AB Quant <3.1 Critically low Immuni ty>9.9 [facility] Comment on above: Result Comment: Stat us of Immunity Anti-HBs Level Inconsistent with Immunity 0.0 - 9.9 Consistent with Immunity >9.9 Performed By: #### B MP, LIPID, AST, TSH, ALT #### [facility] [address] [place] [address] Dr. Viri Strong HEPATITIS C VIRUS AB W/ REFL EX QUANTon 06-02-2021 HCV AB <0.1 Normal 0.0-0.9 [facility] Comment on above: Performed By: #### H CVPCRR #### [facility] [address] [place] [address] Dr. Viri Strong Interpretation: Comment Normal [facility] Comment on above: Result Comment: Nega tive Not infected with HCV, unless recent infection is suspected or other evidence exists to indicate HCV infection. Performed By: #### H CVPCRR #### [facility] [address] [address] [address] Viri Strong IMMUNOFIXATION (MONIKA), SERUMo n 06-02-2021 IMMUNOFIXATION RESULT Comment Normal [facility] Comment on above: Result Comment: No m onoclonality detected. Performed By: #### B MP, LIPID, AST, TSH, ALT #### [facility] [address] [address] [address] Viri Strong Immunoglobulin A, Qn, Serum 152 mg/dL Normal 64-422 [facility] Comment on above: Performed By: #### B MP, LIPID, AST, TSH, ALT #### [facility] [address] [place] [address] Dr. Viri Strong Immunoglobulin G, Qn, Serum 510 mg/dL Critically low 586-1602 [facility] Comment on above: Performed By: #### B MP, LIPID, AST, TSH, ALT #### [facility] [address] [place] [address] Dr. Viri Strong Immunoglobulin M, Qn, Serum 68 mg/dL Normal 26-217 [facility] Comment on above: Performed By: #### B MP, LIPID, AST, TSH, ALT #### [facility] [address] [place] [address] Dr. Viri Strong PROTEIN ELECTROPHERESISon Albumin [Mass/Vol] 4.0 g/dL Normal 2.9-4.4 [facility] Comment on above: Performed By: #### B MP, LIPID, AST, TSH, ALT #### [facility] [address] [place] [address] Dr. Viri Strong Albumin/Globulin [Mass ratio] 1.4 {ratio} Normal 0.7-1.7 [facility] Comment on above: Performed By: #### B MP, LIPID, AST, TSH, ALT #### [facility] [address] [place] [address] Dr. Viri Strong Agcxg-7-Ntfzvfst 0.3 g/dL Normal 0.0-0.4 [facility] Comment on above: Performed By: #### B MP, LIPID, AST, TSH, ALT #### [facility] [address] [place] [address] Dr. Viri Strong Iamol-8-Iyzhczmw 0.9 g/dL Normal 0.4-1.0 [facility] Comment on above: Performed By: #### B MP, LIPID, AST, TSH, ALT #### [facility] [address] [place] [address] Dr. Viri Strong Beta Globulin 1.1 g/dL Normal 0.7-1.3 [facility] Comment on above: Performed By: #### B MP, LIPID, AST, TSH, ALT #### [facility] [address] [place] [address] Dr. Viri Strong Gamma Globulin 0.6 g/dL Normal 0.4-1.8 [facility] Comment on above: Performed By: #### B MP, LIPID, AST, TSH, ALT #### [facility] [address] [place] [address] Dr. Viri Strong Globulin (S) [Mass/Vol] 2.9 g/dL Normal 2.2-3.9 [facility] Comment on above: Performed By: #### B MP, LIPID, AST, TSH, ALT #### [facility] [address] [place] [address] Dr. Viri Strong M-Ciro Not Observed Normal Not Observed [facility] Comment on above: Performed By: #### B MP, LIPID, AST, TSH, ALT #### [facility] [address] [place] [address] Dr. Viri Strong PDF . Normal [facility] Comment on above: Performed By: #### B MP, LIPID, AST, TSH, ALT #### [facility] [address] [place] [address] Dr. Viri Strong Please note: Comment Normal [facility] Comment on above: Result Comment: Prot ein electrophoresis scan will follow via computer, mail, or transcription delivery. Performed By: #### B MP, LIPID, AST, TSH, ALT #### [facility] [address] [place] [address] Dr. Viri Strong Protein [Mass/Vol] 6.9 g/dL Normal 6.0-8.5 [facility] Comment on above: Performed By: #### B MP, LIPID, AST, TSH, ALT #### [facility] [address] [place] [address] Dr. Viri Strong PTH INTACTon 06-02-2021 PTH, Intact 27 pg/mL Normal 15-65 [facility] Comment on above: Performed By: #### B MP, LIPID, AST, TSH, ALT #### [facility] [address] [place] [address] Dr. Viri Strong FERRITINon 06-01-2021 Ferritin [Mass/Vol] 48.0 ng/mL Normal 11.1-264.0 [facility] Comment on above: Performed By: #### B MP, LIPID, AST, TSH, ALT #### [facility] [address] [place] [address] Dr. Viri Strong HEMOGRAM AND PLATELon 2021 Hematocrit (Bld) [Volume fraction] 33.9 % Critically low 36.0-48.0 [facility] Comment on above: Performed By: #### B MP, LIPID, AST, TSH, ALT #### [facility] [address] [place] [address] Dr. Viri Strong Hemoglobin (Bld) [Mass/Vol] 11.1 g/dL Critically low 12.0-16.0 [facility] Comment on above: Performed By: #### B MP, LIPID, AST, TSH, ALT #### [facility] [address] [place] [address] Dr. Viri Strong MCH (RBC) [Entitic mass] 29.8 pg Normal 26.7-34.0 [facility] Comment on above: Performed By: #### B MP, LIPID, AST, TSH, ALT #### [facility] [address] [place] [address] Dr. Viri Strong MCHC (RBC) [Mass/Vol] 32.7 g/dL Normal 29.9-35.2 [facility] Comment on above: Performed By: #### B MP, LIPID, AST, TSH, ALT #### [facility] [address] [place] [address] Dr. Viri Strong MCV (RBC) [Entitic vol] 90.9 fL Normal 81.0-99.0 [facility] Comment on above: Performed By: #### B MP, LIPID, AST, TSH, ALT #### [facility] [address] [place] [address] Dr. Viri Strong PLT 240 103/ul Normal 150-450 [facility] Comment on above: Performed By: #### B MP, LIPID, AST, TSH, ALT #### [facility] [address] [place] [address] Dr. Viri Strong RBC 3.73 106/ul Critically low 4.20-5.40 [facility] Comment on above: Performed By: #### B MP, LIPID, AST, TSH, ALT #### [facility] [address] [place] [address] Dr. Viri Strong WBC 7.8 103/ul Normal 4.0-11.0 [facility] Comment on above: Performed By: #### B MP, LIPID, AST, TSH, ALT #### [facility] [address] [place] [address] Dr. Viri Strong IRON AND TIBCon 06-01-2021 % SATURATION 18.0 % Normal [facility] Comment on above: Performed By: #### B MP, LIPID, AST, TSH, ALT #### [facility] [address] [place] [address] Dr. Viri Strong Iron [Mass/Vol] 58.0 ug/dL Normal 37.0-170.0 [facility] Comment on above: Performed By: #### B MP, LIPID, AST, TSH, ALT #### [facility] [address] [address] [address] Viri Strong TIBC DIRECT 323.0 ug/dL Normal 261.0-497.0 [facility] Comment on above: Performed By: #### B MP, LIPID, AST, TSH, ALT #### [facility] [address] [place] [address] Dr. Viri Strong MAGNESIUMon 06-01-2021 Magnesium [Mass/Vol] 2.1 mg/dL Normal 1.6-2.3 [facility] Comment on above: Performed By: #### B MP, LIPID, AST, TSH, ALT #### [facility] [address] [address] [address] Viri Strong RENAL FUNCTION PANELon 06-01 Albumin [Mass/Vol] 4.4 g/dL Normal 3.4-5.0 [facility] Comment on above: Performed By: #### B MP, LIPID, AST, TSH, ALT #### [facility] [address] [place] [address] Dr. Viri Strong Calcium [Mass/Vol] 10.0 mg/dL Normal 8.5-10.1 [facility] Comment on above: Performed By: #### B MP, LIPID, AST, TSH, ALT #### [facility] [address] [place] [address] Dr. Viri Strong Chloride [Moles/Vol] 103 mmol/L Normal 98-107 [facility] Comment on above: Performed By: #### B MP, LIPID, AST, TSH, ALT #### [facility] [address] [place] [address] Dr. Viri Strong CO2 [Moles/Vol] 26.8 mmol/L Normal 22.0-30.0 [facility] Comment on above: Performed By: #### B MP, LIPID, AST, TSH, ALT #### [facility] [address] [place] [address] Dr. Viri Strong Creatinine [Mass/Vol] 1.18 mg/dL Critically high 0.52-1.04 [facility] Comment on above: Performed By: #### B MP, LIPID, AST, TSH, ALT #### [facility] [address] [place] [address] Dr. Viri Strong EGFR-AF EMIRATI 54 mL/min/1.73m2 Critically low >=60 [facility] Comment on above: Performed By: #### B MP, LIPID, AST, TSH, ALT #### [facility] [address] [place] [address] Dr. Viri Strong EGFR-NON AF EMIRATI 45 mL/min/1.73m2 Critically low >=60 [facility] Comment on above: Performed By: #### B MP, LIPID, AST, TSH, ALT #### [facility] [address] [place] [address] Dr. Viri Strong Glucose [Mass/Vol] 93 mg/dL Normal 74-106 [facility] Comment on above: Performed By: #### B MP, LIPID, AST, TSH, ALT #### [facility] [address] [place] [address] Dr. Viri Strong Phosphate [Mass/Vol] 4.1 mg/dL Normal 2.5-4.5 [facility] Comment on above: Performed By: #### B MP, LIPID, AST, TSH, ALT #### [facility] [address] [place] [address] Dr. Viri Strong Potassium [Moles/Vol] 4.8 mmol/L Normal 3.4-5.0 [facility] Comment on above: Performed By: #### B MP, LIPID, AST, TSH, ALT #### [facility] [address] [place] [address] Dr. Viri Strong Sodium [Moles/Vol] 140 mmol/L Normal 137-145 [facility] Comment on above: Performed By: #### B MP, LIPID, AST, TSH, ALT #### [facility] [address] [place] [address] Dr. Viri Strong Urea nitrogen [Mass/Vol] 24.0 mg/dL Critically high 7.0-18 .0 [facility] Comment on above: Performed By: #### B MP, LIPID, AST, TSH, ALT #### [facility] [address] [address] [address] Viri Strong UA RANDOM W/MICROSCOPICon BACTERIA TRACE Abnormal NONE SEEN [facility] Comment on above: Performed By: #### B MP, LIPID, AST, TSH, ALT #### [facility] [address] [place] [address] Dr. Viri Strong Bilirubin Ql (U) Negative Normal NEGATIVE [facility] Comment on above: Performed By: #### B MP, LIPID, AST, TSH, ALT #### [facility] [address] [place] [address] Dr. Viri Strong CAST NONE SEEN Normal NONE SEEN [facility] Comment on above: Performed By: #### B MP, LIPID, AST, TSH, ALT #### [facility] [address] [place] [address] Dr. Viri Strong Clarity (U) CLEAR Normal CLEAR [facility] Comment on above: Performed By: #### B MP, LIPID, AST, TSH, ALT #### [facility] [address] [place] [address] Dr. Viri Strong Color (U) LT. YELLOW Normal YELLOW [facility] Comment on above: Performed By: #### B MP, LIPID, AST, TSH, ALT #### [facility] [address] [place] [address] Dr. Viri Strong Crystals LM Nom (Urine sed) NONE SEEN Normal NONE SEEN [facility] Comment on above: Performed By: #### B MP, LIPID, AST, TSH, ALT #### [facility] [address] [place] [address] Dr. Viri Strong Epithelial cells LM Ql (Urine sed) RARE Normal NONE SEEN /RARE [facility] Comment on above: Performed By: #### B MP, LIPID, AST, TSH, ALT #### [facility] [address] [place] [address] Dr. Vrii Strong Glucose Ql (U) Negative Normal NEGATIVE [facility] Comment on above: Performed By: #### B MP, LIPID, AST, TSH, ALT #### [facility] [address] [place] [address] Dr. Viri Strong Hemoglobin Ql (U) Negative Normal NEGATIVE [facility] Comment on above: Performed By: #### B MP, LIPID, AST, TSH, ALT #### [facility] [address] [place] [address] Dr. Viri Strong Ketones Ql (U) Negative Normal NEGATIVE [facility] Comment on above: Performed By: #### B MP, LIPID, AST, TSH, ALT #### [facility] [address] [place] [address] Dr. Viri Strong LEUKOCYTES MODERATE Abnormal NEGATIVE [facility] Comment on above: Performed By: #### B MP, LIPID, AST, TSH, ALT #### [facility] [address] [place] [address] Dr. Viri Strong MUCOUS NONE SEEN Normal NONE SEEN [facility] Comment on above: Performed By: #### B MP, LIPID, AST, TSH, ALT #### [facility] [address] [place] [address] Dr. Viri Strong Nitrite Ql (U) Negative Normal NEGATIVE [facility] Comment on above: Performed By: #### B MP, LIPID, AST, TSH, ALT #### [facility] [address] [place] [address] Dr. Viri Strong pH (U) 6.0 [pH] Normal 5-9 [facility] Comment on above: Performed By: #### B MP, LIPID, AST, TSH, ALT #### [facility] [address] [place] [address] Dr. Viri Strong RBC 0-2 Normal 0-2 [facility] Comment on above: Performed By: #### B MP, LIPID, AST, TSH, ALT #### [facility] [address] [place] [address] Dr. Viri Strong SPEC GRAVITY 1.010 Normal 1.005-<=1.02 5 [facility] Comment on above: Performed By: #### B MP, LIPID, AST, TSH, ALT #### [facility] [address] [place] [address] Dr. Viri Strong UA PROTEIN Negative Normal NEGATIVE/ TRACE [facility] Comment on above: Performed By: #### B MP, LIPID, AST, TSH, ALT #### [facility] [address] [address] [address] Viri Strong Urobilinogen Qn (U) 0.2 {Alem'U}/dL Normal 0.2 - 1. 0 [facility] Comment on above: Performed By: #### B MP, LIPID, AST, TSH, ALT #### [facility] [address] [address] [address] Viri Strong WBC 2-5 Abnormal NONE SEEN [facility] Comment on above: Performed By: #### B MP, LIPID, AST, TSH, ALT #### [facility] [address] [place] [address] Dr. Viri Strong URIC ACID SERUMon 06-01-2021 Urate [Mass/Vol] 7.4 mg/dL Critically high 2.5-6.2 [facility] Comment on above: Performed By: #### B MP, LIPID, AST, TSH, ALT #### [facility] [address] [address] [address] Viri Strong URINE T PROTEIN CREAT RATIOo n 06-01-2021 Protein (U) [Mass/Vol] 15.1 mg/dL Critically high <=12.0 [facility] Comment on above: Performed By: #### B MP, LIPID, AST, TSH, ALT #### [facility] [address] [address] [address] Viri Strong UR PROT CREAT RAT 0.[address] [facility] Comment on above: Performed By: #### B MP, LIPID, AST, TSH, ALT #### [facility] [address] [address] [address] Viri Strong URINE CREAT 52.27 mg/dL Normal 20.00-300.00 [facility] Comment on above: Performed By: #### B MP, LIPID, AST, TSH, ALT #### [facility] [address] [address] [address] Viri Strong VITAMIN D 25 OHon 06-01-2021 VIT D 25-OH 38.9 ng/mL Normal [facility] Comment on above: Performed By: #### B MP, LIPID, AST, TSH, ALT #### [facility] [address] [place], [place] [address] Dr. Viri Strong VIT D RANGES SEE BELOW Normal [facility] Comment on above: Result Comment: <20 ng/mL Vit D deficient 20 - <30 ng/mL Vit D insufficient 30 - 100 ng/mL Vit D sufficient >100 ng/mL Potential Toxicity Performed By: #### B MP, LIPID, AST, TSH, ALT #### [facility] [address] [place], [place] [address] Dr. Viri Strong Reminderson 06-28-2019 Reminders --- From: Donna Fiore MA To: EU - Clinical; Sent: 01/16/2019 14:46:43 EST Show up: 04/16/2019 07:00:00 EST Subject: Ambulatory Reminder Due Date/Time: 04/30/2019 07:00:00 EST Reminder/Recall pt is scheduled for Renal US [facility] on 04/15/18. Has f/u w/PRW on 05/01/18. Renal US & CXR scheduled for 04/15/18 8am @[facility]. No results in chart yet Per [facility] central scheduling, appt was cancelled and Pt stated she would call back to reschedule. Appt was cancelled 04/12/2019. Pt being sent cert letter. See other message pt r/s for renal us and cxr 07/02/2019 @ 8:45am, [facility]. F/u appt 07/08/19 for results.LG Normal [facility] Reminderson 01-21-2019 Reminders --- From: Donna Fiore MA To: EU - Recalls Michelle; Sent: 01/16/2019 14:06:32 EST Show up: 01/16/2019 07:00:00 EST Subject: needs Renal US & CXR Due Date/Time: 02/02/2019 07:00:00 EST Reminder/Recall pt needs scheduled for 2yr f/u w/Renal US & CXR. done Normal [facility] Vital Signs Date Time Vital Sign Value Performing Clinician Facility 08-15-2023 14:00-0400 Body temperature 97.9 [degF] MD Misael Perez Work Phone: [facility] 08-15-2023 14:00-0400 Diastolic blood pressure 81 mm[Hg] MD Misael Perez Work Phone: [facility] 08-15-2023 14:00-0400 Heart rate 58 /min MD Misael Perez Work Phone: [facility] 08-15-2023 14:00-0400 Respiratory rate 18 /min MD Misael Perez Work Phone: [facility] 08-15-2023 14:00-0400 SaO2% (BldA) [Mass fraction] 96 % MD Misael Perez Work Phone: [facility] 08-15-2023 14:00-0400 Systolic blood pressure 135 mm[Hg] MD Misael Perez Work Phone: [facility] 08-15-2023 06:00-0400 Body weight 83.9 kg MD Misael Perez Work Phone: [facility] 08-14-2023 21:53-0400 Body height 154.94 cm MD Misael Perez Work Phone: [facility] 07-18-2023 10:07-0400 Body height 160.02 cm MD Misael Perez Work Phone: [facility] 07-18-2023 10:07-0400 Body mass index (BMI) [Ratio] 33.3 kg/m2 MD Misael Perez Work Phone: [facility] 07-18-2023 10:07-0400 Body temperature 96.4 [degF] MD Misael Preez Work Phone: [facility] 07-18-2023 10:07-0400 Body weight 85.47 kg MD Misael Perez Work Phone: [facility] 07-18-2023 10:07-0400 Diastolic blood pressure 64 mm[Hg] MD iMsael Perez Work Phone: [facility] 07-18-2023 10:07-0400 Heart rate 68 /min MD Misael Perez Work Phone: [facility] 07-18-2023 10:07-0400 Respiratory rate 16 /min MD Misael Perez Work Phone: [facility] 07-18-2023 10:07-0400 SaO2% (BldA) [Mass fraction] 94 % MD Misael Perez Work Phone: [facility] 07-18-2023 10:07-0400 Systolic blood pressure 99 mm[Hg] MD Misael Perez Work Phone: [facility] 07-13-2023 11:55-0400 Body height 160.02 cm [facility] 07-13-2023 11:55-0400 Body mass index (BMI) [Ratio] 33.3 kg/m2 [facility] 07-13-2023 11:55-0400 Body temperature 97.3 [degF] [facility] 07-13-2023 11:55-0400 Body weight 85.36 kg [facility] 07-13-2023 11:55-0400 Diastolic blood pressure 70 mm[Hg] [facility] 07-13-2023 11:55-0400 Heart rate 55 /min [facility] 07-13-2023 11:55-0400 Respiratory rate 16 /min [facility] 07-13-2023 11:55-0400 SaO2% (BldA) [Mass fraction] 95 % [facility] 07-13-2023 11:55-0400 Systolic blood pressure 102 mm[Hg] [facility] 04-18-2023 10:32-0500 Body height 160 cm Felipe PolkOlive DO Work Phone: [facility] 04-18-2023 10:32-0500 Body mass index (BMI) [Ratio] 33.48 kg/m2 Felipe PolkOlive DO Work Phone: [facility] 04-18-2023 10:32-0500 Body weight 85.73 kg Felipe Shrewsbury DO Work Phone: [facility] 03-14-2023 15:20-0500 Body height 160.02 cm Aleyda Dennis Other [employer] Other 03-14-2023 15:20-0500 Body mass index (BMI) [Ratio] 33.19 kg/m2 Aleyda Dennis Other [employer] Other 03-14-2023 15:20-0500 Body temperature 96.6 [degF] Aleyda Dennis Other [employer] Other 03-14-2023 15:20-0500 Body weight 85 kg Aleyda Dennis Other [employer] Other 03-14-2023 15:20-0500 Diastolic blood pressure 75 mm[Hg] Aleyda Dennis Other [employer] Other 03-14-2023 15:20-0500 Respiratory rate 18 /min Aleyda Dennis Other [employer] Other 03-14-2023 15:20-0500 SaO2% (BldA) [Mass fraction] 96 % Aleyda Dennis Other [employer] Other 03-14-2023 15:20-0500 Systolic blood pressure 123 mm[Hg] Aleyda Dennis Other [employer] Other 03-07-2023 10:28-0500 Body height 160 cm Pmh [address] [facility] 03-07-2023 10:28-0500 Body mass index (BMI) [Ratio] 33.3 kg/m2 Pmh [address] [facility] [employer] [facility] 03-07-2023 10:28-0500 Body weight 85.28 kg Pmh [address] [facility] [employer] [facility] 02-21-2023 10:40-0500 Body height 160.02 cm Aleyda Dennis Other [employer] Other 02-21-2023 10:40-0500 Body mass index (BMI) [Ratio] 33.9 kg/m2 Aleyda Dennis Other [employer] Other 02-21-2023 10:40-0500 Body temperature 96.2 [degF] Aleyda Dennis Other [employer] Other 02-21-2023 10:40-0500 Body weight 86.82 kg Aleyda Dennis Other [employer] Other 02-21-2023 10:40-0500 Diastolic blood pressure 71 mm[Hg] Aleyda Dennis Other [employer] Other 02-21-2023 10:40-0500 Respiratory rate 18 /min Aleyda Dennis Other [employer] Other 02-21-2023 10:40-0500 SaO2% (BldA) [Mass fraction] 96 % Aleyda Dennis Other [employer] Other 02-21-2023 10:40-0500 Systolic blood pressure 108 mm[Hg] Aleyda Dennis Other [employer] Other 08-04-2022 12:00-0400 Body height 160.02 cm Aleyda Dennis Other [employer] Other 08-04-2022 12:00-0400 Body mass index (BMI) [Ratio] 33.69 kg/m2 Aleyda Dennis Other [employer] Other 08-04-2022 12:00-0400 Body temperature 96.8 [degF] Aleyda Dennis Other [employer] Other 08-04-2022 12:00-0400 Body weight 86.27 kg Aleyda Dennis Other [employer] Other 08-04-2022 12:00-0400 Diastolic blood pressure 86 mm[Hg] Aleyda Dennis Other [employer] Other 08-04-2022 12:00-0400 Respiratory rate 18 /min Aleyda Dennis Other [employer] Other 08-04-2022 12:00-0400 SaO2% (BldA) [Mass fraction] 95 % Aleyda Dennis Other [employer] Other 08-04-2022 12:00-0400 Systolic blood pressure 136 mm[Hg] Aleyda Dennis Other [employer] Other 01-13-2022 14:00-0500 Body height 160.02 cm Aleyda Dennis Other [employer] Other 01-13-2022 14:00-0500 Body mass index (BMI) [Ratio] 31.99 kg/m2 Aleyda Dennis Other [employer] Other 01-13-2022 14:00-0500 Body temperature 96.3 [degF] Aleyda Dennis Other [employer] Other 01-13-2022 14:00-0500 Body weight 81.92 kg Aleyda Dennis Other [employer] Other 01-13-2022 14:00-0500 Diastolic blood pressure 77 mm[Hg] Aleyda Dennis Other [employer] Other 01-13-2022 14:00-0500 Respiratory rate 18 /min Aleyda Dennis Other [employer] Other 01-13-2022 14:00-0500 SaO2% (BldA) [Mass fraction] 96 % Aleyda Dennis Other [employer] Other 01-13-2022 14:00-0500 Systolic blood pressure 129 mm[Hg] Aleyda Dennis Other [employer] Other 12-10-2020 11:40-0400 Body height 160.02 cm Aleyda Dennis Other [employer] Other 12-10-2020 11:40-0400 Body mass index (BMI) [Ratio] 32.98 kg/m2 Aleyda Dennis Other [employer] Other 12-10-2020 11:40-0400 Body temperature 96 [degF] Aleyda Dennis Other [employer] Other 12-10-2020 11:40-0400 Body weight 84.46 kg Aleyda Dennis Other [employer] Other 12-10-2020 11:40-0400 Diastolic blood pressure 80 mm[Hg] Aleyda Dennis Other [employer] Other 12-10-2020 11:40-0400 Respiratory rate 18 /min Aleyda Dennis Other [employer] Other 12-10-2020 11:40-0400 SaO2% (BldA) [Mass fraction] 96 % Aleyda Dennis Other [employer] Other 12-10-2020 11:40-0400 Systolic blood pressure 139 mm[Hg] Aleyda Dennis Other [employer] Other Encounters Encounter Date Encounter Type Care Provider Facility Start: 08-15-2023 Non-patient / Non-visit MD Natalie Perez Work Phone: [facility] Physician [facility] Work Phone: Start: 08-14-2023 End: 08-15-2023 ambulatory Meagan Roman Facility:[facility] Start: 08-14-2023 End: 08-15-2023 Evaluation and management of inpatient MD Misael Perez Work Phone: [facility] Work Phone: Start: 08-14-2023 End: 08-15-2023 observation encounter MD Misael Perez Work Phone: [facility] Work Phone: Start: 08-14-2023 Non-patient / Non-visit MD Natalie Perez Work Phone: [facility] Physician [facility] Work Phone: Start: 08-11-2023 End: 08-11-2023 ambulatory JL PEPE Not Available Start: 08-09-2023 End: 08-09-2023 ambulatory BELEN PATRICK Not Available Start: 07-27-2023 End: 07-27-2023 ambulatory FELIPE Acuna OLIVE Not Available Start: 07-27-2023 End: 07-27-2023 ambulatory SHAIKH LYNN Not Available Start: 07-21-2023 End: 07-21-2023 Evaluation and management of inpatient HERMAN Smith [facility] Start: 07-19-2023 End: 07-20-2023 ambulatory [facility] Start: 07-18-2023 End: 07-18-2023 Patient encounter procedure MD Misael Perez Work Phone: [facility] Physician [facility] Nephrology Work Phone: Start: 07-13-2023 End: 07-13-2023 ambulatory [facility] Work Phone: Start: 07-13-2023 End: 07-13-2023 Patient encounter procedure [facility] Physician [facility] [place] Work Phone: Start: 07-11-2023 End: 07-12-2023 ambulatory [facility] Start: 07-06-2023 Non-patient / Non-visit [facility] Physician [facility] Work Phone: Start: 06-30-2023 End: 06-30-2023 ambulatory MISAEL PEREZ Not Available Start: 06-22-2023 End: 06-23-2023 ambulatory FELIPE [facility] Start: 06-22-2023 Encounter for other preprocedural examination [facility] Start: 06-22-2023 End: 06-22-2023 ambulatory FELIPE Armand [place] Not Available Start: 06-06-2023 End: 06-06-2023 ambulatory MISAEL PEREZ Not Available Start: 05-02-2023 End: 05-02-2023 ambulatory YULY VALDERRAMA Not Available Start: 04-19-2023 End: 04-20-2023 ambulatory MISAEL PEREZ [facility] Start: 04-19-2023 External Result Encounter Misael Perez MD Work Phone: [facility] External Department Unsolicited Start: 04-19-2023 External Result Encounter Misael Perez MD Work Phone: [facility] External Department Unsolicited Start: 04-18-2023 Telephone encounter Misael whitlock MD Work Phone: [facility] Start: 04-18-2023 End: 04-18-2023 Follow-up encounter Felipe Schaefer DO Work Phone: [facility] Comment on above: Chronic pain of righ t knee (Primary Dx); Arthritis of right knee; Complex tear of medial meniscus of right knee as current injury, initial encounter; Other tear of lateral meniscus of right knee as current injury, initial encounter Start: 04-18-2023 End: 04-18-2023 ambulatory FELIPE SCHAEFER Not Available Start: 04-12-2023 End: 04-12-2023 ambulatory VALERY GARCIA Not Available Start: 04-10-2023 Bamboo flowsheet Valery wilburn RADIOGRAPHIC TECHNOLOGIST Work Phone: [facility] Start: 04-10-2023 Bamboo flowsheet Valery Jordan g RADIOGRAPHIC TECHNOLOGIST Work Phone: [facility] Start: 04-10-2023 End: 04-10-2023 Office outpatient visit 15 minutes Valery Garcia RADIOGRAPHIC TECHNOLOGIST Work Phone: [facility] Comment on above: Chronic pain of righ t knee (Primary Dx); Arthritis of right knee; Internal derangement of right knee Start: 04-10-2023 End: 04-10-2023 ambulatory VALERY GARCIA Not Available Start: 03-14-2023 End: 03-14-2023 ambulatory Aleyda Bourgeois Other [employer] Other Start: 03-14-2023 Office outpatient vi sit 15 minutes Aleyda Dennis [facility] Start: 03-13-2023 End: 03-13-2023 ambulatory Aleyda Dennis Other [employer] Other Start: 03-13-2023 Telephone encounter Aleyda Dennis [facility] Start: 03-08-2023 End: 03-09-2023 Evaluation and management of inpatient MICHAELA YUAN [facility] Start: 03-07-2023 End: 03-07-2023 ambulatory Pmh Pat Phone Call Provider 1 [facility] - Pre Admit Start: 02-22-2023 End: 02-22-2023 ambulatory VALERY B APLING Not Available Start: 02-21-2023 (INJECTION) INJECTION Aleyda Dennis [facility] Start: 02-21-2023 End: 02-21-2023 ambulatory Aleyda Dennis Other [employer] Other Start: 02-20-2023 End: 02-20-2023 ambulatory Aleyda Dennis Other [employer] Other Start: 02-20-2023 Telephone encounter Aleyda Dennis [facility] Start: 11-23-2022 End: 11-23-2022 ambulatory Aleyda Dennis Other [employer] Other Start: 11-23-2022 Telephone encounter Aleyda Dennis [facility] Start: 10-25-2022 End: 10-25-2022 ambulatory Aleyda Dennis Other [employer] Other Start: 10-25-2022 Telephone encounter Aleyda Dennis [facility] Start: 09-12-2022 End: 09-12-2022 ambulatory Aleyda Dennis Other [employer] Other Start: 09-12-2022 Telephone encounter Aleyda Dennis [facility] Start: 08-05-2022 End: 08-05-2022 ambulatory Aleyda Dennis Other [employer] Other Start: 08-05-2022 Telephone encounter Aleyda Dennis [facility] Start: 08-04-2022 End: 08-04-2022 ambulatory Aleyda Dennis Other [employer] Other Start: 08-04-2022 Office outpatient vi sit 25 minutes Laeyda Dennis [facility] [place] Start: 04-25-2022 End: 04-26-[address] MISAEL PEREZ Facility:[facility] Start: 03-15-2022 End: 03-16-2022 ambulatory ALEYDA DENNIS Facility:[facility] Start: 03-08-2022 End: 03-08-2022 ambulatory Aziz Bakvilmas Other [employer] Other Start: 03-08-2022 Telephone encounter Aziz Bakhous [facility] Start: 01-31-2022 End: 02-01-[address] MISAEL PEREZ Facility:[facility] Start: 01-24-2022 End: 01-24-2022 ambulatory Azamanda Bakvilmas Other [employer] Other Start: 01-24-2022 Telephone encounter Aziz Bakvilmas [facility] Start: 01-19-2022 End: 01-20-[address] MISAEL PEREZ Facility:[facility] Start: 01-13-2022 End: 01-13-2022 ambulatory Aleyda Dennis Other [employer] Other Start: 01-13-2022 Office outpatient vi sit 25 minutes Aleyda Dennis [facility] [place] Start: 01-03-2022 End: 01-04-2022 ambulatory ALEYDA DENNIS Facility:[facility] Start: 10-26-2021 End: 10-27-[address] MISAEL PEREZ Facility:[facility] Start: 09-07-2021 End: 09-07-2021 ambulatory Aleyda Dennis Other [employer] Other Start: 09-07-2021 Telephone encounter Aleyda Dennis [facility] Start: 06-07-2021 End: 06-07-2021 ambulatory Darrickamanda Arauz Other [employer] Other Start: 06-07-2021 Telephone encounter Chandler Baileyniyah [facility] Start: 06-01-2021 End: 06-02-[address] MISAEL PEREZ Facility:[facility] Start: 03-09-2021 End: 03-09-2021 ambulatory Maxi Ramosbandar Other [employer] Other Start: 03-09-2021 Telephone encounter Essbrandon Ramosashi [facility] Start: 01-27-2021 End: 01-27-2021 ambulatory Maxi Ramosashi Other [employer] Other Start: 01-27-2021 Telephone encounter Essbrandon Elashi [facility] Start: 12-10-2020 Office outpatient vi sit 25 minutes Aleyda Dennis [facility] [place] Start: 10-26-2017 End: 10-27-2017 Patient encounter DEFAULT PHYSICIAN Facility:[facility] Start: 10-16-2017 End: 10-17-2017 Patient encounter DEFAULT PHYSICIAN Facility:[facility] Procedures Date Procedure Procedure Detail Performing Clinician Start: 08-15-2023 Esophagogastroduodenoscopy MD Misael Beck er Work Phone: Start: 08-14-2023 Antibody screen Meagan Roman Comment on above: Order Comment: Transfuse now? Y Number of units to transfuse now? 1 Result Comment: PERF ORMED BY: [facility] [address] [place] [address] PATHOLOGIST DIGITAL MUSIC INSTRUCTOR LATONIA BRAND M.D. Start: 08-14-2023 Screening for occult blood in feces MD Misael Perez Work Phone: Start: 04-19-2023 Basic metabolic panel calcium total Misael Perez MD Work Phone: Start: 04-19-2023 Complete blood count with white cell differential, automated Misael Perez MD Work Phone: Start: 03-08-2023 Colonoscopy Pmh 1 Start: 02-28-2023 Adult depression screening assessment [facility] 1 Plan of Treatment Date Care Activity Detail Author Start: 03-08-2033 Screening for malignant neoplasm of colon [facility] Start: 03-08-2024 Adult BMI Screening Adult BMI Screening [facility] Start: 03-08-2024 Tobacco Screening Tobacco Screening [facility] Start: 02-29-2024 Depression Screening Depression Screening [facility] Start: 02-29-2024 Fall Risk Screening Fall Risk Screening [facility] Start: 08-15-2023 [facility] Start: 08-14-2023 Referral to child life assistant [facility] Start: 08-14-2023 Referral to route aide [facility] Start: 08-14-2023 Hospital admission [facility] Start: 04-18-2023 End: 04-18-2024 25-hydroxyvitamin D3 [Mass/volume] in Serum or Plasma Vitamin D 25 hydroxy Lab Routine Vitamin D deficiency Expected: 04/18/2023 (Approximate), Expires: 04/18/2024 [facility] Comment on above: Expected: 04/18/2023 (Approximate), Expi res: 04/18/2024 Start: 04-18-2023 End: 04-18-2024 Albumin, urine, random Albumin, urine, random Lab Routine Type 2 diabetes mellitus with hyperglycemia, without long-term current use of insulin ([facility]) Expected: 04/18/2023 (Approximate), Expires: 04/18/2024 [facility] Comment on above: Expected: 04/18/2023 (Approximate), Expi res: 04/18/2024 Start: 04-18-2023 End: 04-18-2024 Basic metabolic 1998 panel - Serum or Plasma Basic metabolic panel Lab Routine Encounter for long-term current use of medication Expected: 04/18/2023 (Approximate), Expires: 04/18/2024 [facility] Comment on above: Expected: 04/18/2023 (Approximate), Expi res: 04/18/2024 Start: 04-18-2023 End: 04-18-2024 CBC W Auto Differential panel - Blood CBC and differential Lab Routine Encounter for long-term current use of medication Expected: 04/18/2023 (Approximate), Expires: 04/18/2024 [facility] Comment on above: Expected: 04/18/2023 (Approximate), Expi res: 04/18/2024 Start: 04-18-2023 End: 04-18-2024 Hemoglobin A1c measurement Hemoglobin A1c Lab Routine Type 2 diabetes mellitus with hyperglycemia, without long-term current use of insulin (CMS/HCC) Expected: 04/18/2023 (Approximate), Expires: 04/18/2024 [facility] Work Phone: Comment on above: Expected: 04/18/2023 (Approximate), Expi res: 04/18/2024 Start: 04-18-2023 End: 04-18-2024 Hepatic function 2000 panel - Serum or Plasma Hepatic function panel Lab Routine Encounter for long-term current use of medication Expected: 04/18/2023 (Approximate), Expires: 04/18/2024 [facility] Comment on above: Expected: 04/18/2023 (Approximate), Expi res: 04/18/2024 Start: 04-18-2023 End: 04-18-2024 Lipid 1996 panel - Serum or Plasma Lipid panel Lab Routine Dyslipidemia (CMS/HCC) Expected: 04/18/2023 (Approximate), Expires: 04/18/2024 [facility] Comment on above: Expected: 04/18/2023 (Approximate), Expi res: 04/18/2024 Start: 04-18-2023 End: 04-18-2024 Thyrotropin [Units/volume] in Serum or Plasma TSH Lab Routine Obesity (BMI 30-39.9) Expected: 04/18/2023 (Approximate), Expires: 04/18/2024 [facility] Comment on above: Expected: 04/18/2023 (Approximate), Expi res: 04/18/2024 Start: 04-18-2023 End: 04-18-2023 Patient encounter procedure 04/18/2023 10:30 AM EST Office Visit [facility] [address] [place] [address] Felipe Schaefer DO [address] [place] [address] [facility] Start: 04-10-2023 End: 04-10-2024 MR Knee - right WO contrast MR knee right wo IV contrast Imaging Routine Internal derangement of right knee Expected: 04/10/2023 (Approximate), Expires: 04/10/2024 [facility] Work Phone: Comment on above: Expected: 04/10/2023 (Approximate), Expi res: 04/10/2024 Start: 04-10-2023 End: 04-10-2023 Patient encounter procedure 04/10/2023 9:30 AM EST Office Visit [facility] [address] [place] [address] Valery Garcia, KYE [address] [place] [address] Chronic pain of right knee (Primary Dx); Arthritis of right knee [facility] Comment on above: Chronic pain of right knee (Primary Dx); Arthritis of right knee Start: 09-25-2018 Medicare Annual Wellness (AWV) Medicare Annual Wellness (AWV) [facility] Start: 09-25-2018 Medicare Annual Wellness Visit Medicare Annual Wellness Visit [facility] Start: 11-28-1966 DTaP,Tdap and Td Vaccines (1 - Tdap) DTaP,Tdap and Td Vaccines (1 - Tdap) [facility] Start: 11-28-1966 Urine screening for protein Diabetes: Urine Protein Screening [facility] Start: 11-28-1965 Adult BMI Follow Up Plan Adult BMI Follow Up Plan [facility] Start: 11-28-1957 Glaucoma screening Diabetes: Retinopathy Screening [facility] Start: 1945 Hemoglobin A1c measurement Diabetes: Hemoglobin A1C [facility] Start: 1947 Screening for malignant neoplasm of colon [facility] Colonoscopy flx dx w /collj spec when pfrmd COLONOSCOPY DIAGNOSTIC / SCREENING Iron deficiency anemia, unspecified iron deficiency anemia type [facility] Patient Education Gastritis (DC) Know your Meds [facility] Work Phone: Patient referral [facility] Work Phone: Renal function 1999 panel - Serum or Plasma [facility] Renal function 1999 panel - Serum or Plasma [facility] Immunizations Immunization Date Immunization Notes Care Provider Fa ciliranjana 12-08-2022 ABRYSVO - Respirator y syncytial virus (RSV), vaccine, bivalent, protein subunit RSV prefusion F, diluent reconstituted, 0.5 mL, PF Felipe Smihtston DO Work Phone: [facility] 11-24-2022 Influenza, High-dose Seasonal, Quadrivalent, Preservative Free Felipe Smithston DO Work Phone: [facility] 07-04-2022 hepatitis B vaccine, adult dosage Felipe Smithston DO Work Phone: [facility] 02-04-2022 hepatitis B vaccine, adult dosage Felpie Smithston DO Work Phone: [facility] 01-04-2022 hepatitis B vaccine, adult dosage Felipe Smithston DO Work Phone: [facility] 11-28-2021 Influenza, Seasonal, Quadrivalent, Adjuvanted Felipe Smithston DO Work Phone: [facility] 11-22-2021 zoster vaccine recombinant Felipe PolkOlive DO Work Phone: [facility] 08-30-2021 zoster vaccine recombinant Felipe Shrewsbury DO Work Phone: [facility] 02-02-2021 Moderna SARS-CoV-2 Vaccination [facility] DO Work Phone: [facility] 06-05-2020 COVID-19, mRNA, LNP- S, PF, 100mcg/0.5mL Dose Pmh 1 [facility] 05-08-2020 COVID-19, mRNA, LNP- S, PF, 100mcg/0.5mL Dose Pmh 1 [facility] 12-31-2018 influenza, high dose seasonal, preservative-free Felipe Schaefer DO Work Phone: [facility] 12-21-2017 influenza, high dose seasonal, preservative-free Felipe Schaefer DO Work Phone: [facility] 01-19-2017 influenza, high dose seasonal, preservative-free Felipe Schaefer DO Work Phone: [facility] 12-27-2016 influenza, injectabl e, quadrivalent, preservative free Felipe Schaefer DO Work Phone: [facility] 12-14-2016 pneumococcal polysaccharide vaccine, 23 valent Felipe Schaefer DO Work Phone: [facility] 10-06-2016 pneumococcal conjuga te vaccine, 13 valent Felipe Schaefer DO Work Phone: [facility] 01-26-2015 influenza, high dose seasonal, preservative-free Felipe Schaefer DO Work Phone: [facility] 03-15-2012 influenza virus vaccine, whole virus Felipe Smithston DO Work Phone: [facility] Payers Date Payer Category Payer Self-pay [id number] 2018 Unknown 2012 Medicare [id number] 1959 Medicare [id number] 2.1 [id number] 1959 Unknown [id number] 2. 16.840.1.955726.19 1947 Unknown [id number] 2.16.84 0.1.166187.3.579.2.593 1947 Unknown [id number] 2.16.84 0.1.590614.3.579.2.593 1947 Unknown [id number] 2.16.84 0.1.155758.3.579.2.593 1947 Unknown [id number] 2.16.84 0.1.652379.3.579.2.593 1947 Unknown [id number] 2.16.84 0.1.784792.3.579.2.593 1947 Unknown [id number] 2.16.84 0.1.238829.3.579.2.593 1947 Unknown [id number] 2.16.84 0.1.700205.3.579.2.593 1947 Unknown [id number] 2.16.8 40.1.111354.3.579.2.1286 1947 Unknown [id number] 2.16.8 40.1.845496.3.579.2.1286 1947 Unknown [id number] 2.16.8 40.1.193933.3.579.2.1286 1947 Unknown [id number] 2.16.8 40.1.357508.3.579.2.1286 1947 Unknown [id number] 2.16.8 40.1.457708.3.579.2.128 1947 Unknown [id number] 2.16.8 40.1.270611.3.579.2.1286 1947 Unknown [id number] 2.16.8 40.1.293332.3.579.2.128 1947 Unknown [id number] 2.16.8 40.1.066274.3.579.2.1286 1947 Unknown [id number] 2.16.84 0.1.158750.3.579.2.1286 1947 Unknown [id number] 2.16.84 0.1.533962.3.579.2.1286 8 Unknown [id number] 2.16.84 0.1.622953.3.579.2.1286 1947 Unknown [id number] 2.16.84 0.1.495410.3.579.2.1286 1947 Unknown [id number] 2.16.84 0.1.953309.3.579.2.1259 1947 Unknown [id number] 2.16.84 0.1.284115.3.579.2.1259 1947 Unknown [id number] 2.16.84 0.1.707126.3.579.2.125 1947 Unknown [id number] 2.16.84 0.1.799601.3.579.2.1259 1947 Unknown [id number] 2.16.84 0.1.326674.3.579.2.125 1947 Unknown [id number] 2.16.84 0.1.502618.3.579.2.1259 1947 Unknown [id number] 2.16.84 0.1.139172.3.579.2.125 1947 Unknown [id number] 2.16.84 0.1.948771.3.579.2.125 1947 Unknown [id number] 2.16.84 0.1.947969.3.579.2.1259 1947 Unknown [id number] 2.16.84 0.1.950887.3.579.2.1259 1947 Unknown [id number] 2.16.84 0.1.632651.3.579.2.125 1947 Unknown [id number] 2.16.84 0.1.882650.3.579.2.1259 1947 Unknown [id number] 2.16.84 0.1.693944.3.579.2.125 1947 Unknown [id number] 2.16.840 .1.201911.3.579.2.1259 Medicare Medicare [id number] Unknown [facility] Health Claims [id number] Unknown [id number] 2.16.8 40.1.047689.3.579.2.531 Social History Date Type Detail Facility Unknown if ever smoked [employer] Other Start: 03-08-2023 End: 04-18-2023 Sex Assigned At Verid Other Start: 02-28-2023 End: 07-13-2023 Tobacco smoking status NHIS Ex-smoker [facility] End: 03-06-2007 History of tobacco use Current smoker [facility] Start: 08-15-2022 End: 02-28-2023 Tobacco use and exposure Smokeless tobacco non-user [facility] Start: 03-07-2023 Alcohol intake Current drinke r of alcohol (finding) [facility] Start: 03-08-2023 End: 04-18-2023 History of Social function [facility] Adolescent depressio n screening assessment 0 [facility] Start: 03-07-2023 Alcohol Comment social [facility] Start: 1945 Sex Assigned At Not on file P [facility] End: 03-06-2007 History of tobacco use Cigarette Smoker [facility] Start: 02-22-2023 End: 04-18-2023 Alcohol intake Ex-drinker (finding) [facility] Start: 1945 Sex Assigned At Female F [facility] Start: 08-15-2023 Tobacco smoking stat us NHIS Never smoked tobacco (finding) [facility] Goals Date Patient Goal Desired Activity /State Functional Status Date Assessment Result Facility 08-15-2023 Functional status Patient at Baseline [facility] Work Phone: Mental Status Date Assessment Result Facility 08-15-2023 Cognitive function Cognitive Sta tus Patient at Baseline [facility] Work Phone: Clinical Notes 12-10-2020 to 08-15-2023 Note Date & Type Note Facility 08-15-2023 Consult note Note Date/Time August 15, 2023 8:48am [facility] [address] [place] [address] Nephrology Consult Note Signed Patient: Malgorzata Reyes MR#: [id number] : 1945 Acct:[id number] Age/Sex: 77 / F Adm Date: 4 Loc: Room: [address] [place] [address] Type: ADM INOo Attending Dr: Meagan Roman MD Copies to: MD Misael Sharpe MD Ruta Semaskiene, MD~ Providers Consult Date: 08/15/23 Requesting Provider: Meagan Roman MD Primary Care Provider: Misael Perez MD HPI Reason for Consult: CKD management History of Present Illness: This is a 77-year female with a medical history of CKD, renal cancer s/p right nephrectomy, DM, HTN, anemia and dyslipidemia was presented to the emergency room for symptomatic anemia after my recommendation. Patient has anemia and follows in our office for her CKD and anemia management. She was started on Procrit and was scheduled to have another shot. She was found to have a worsening anemia hemoglobin went down from her 9.5 g/dL to 7.2 g/dL. She was advised to go to the emergency room. In the emergency room she was found to have a persistent anemia with hemoglobin 7.7 g/dL with positive stool occult blood test. She was admitted for GI workup and and was transfused 1 unit of PRBC. Patient was seen by the GI and had a EGD this morning which showed gastritis with gastric erosions. Nephrology is consulted for her CKD managementduring the hospital stay. Patient was seen at the bedside she is feeling better. Review of Systems Review of Systems All other systems reviewed & are negative unless noted below or in HPI Review of systems: Cardiovascular: denies any chest pain, palpitation Pulmonary: denies any cough, hemoptysis Gastrointestinal: denies any nausea, vomiting, diarrhea Neurological :denies any headache, numbness, weakness Endocrine: denies any polyuria, polydipsia Dermatological: denies any itching or rash PMFSH Medical History (Updated 08/15/23 @ 09:59 by Aleyda Bourgeois MD) Anemia Hypertension Surgical History (Updated 08/14/23 @ 16:23 by Lulu Rose RN) Hx of right knee surgery 07/19/23 Family History Brother Diabetes Legacy FamHx Relation: Brother(s) Hypertension Legacy FamHx Relation: Brother(s) Father Mother Sister Social History Smoking Status: Never smoker Substance Use Type: None Meds Medications & Allergies Allergies latex Allergy (Unknown, Verified 08/14/23 16:20) rash ketorolac [From Toradol] Allergy (Verified 08/14/23 16:20) Swelling of Lip/Tongue/Throat Home Medications alendronate 70 mg tablet 70 mg PO QWEEK 07/13/23 [History Confirmed 08/14/23] atorvastatin 10 mg tablet 10 mg PO DAILY 07/13/23 [History Confirmed 08/14/23] cholecalciferol (vitamin D3) 50 mcg (2,000 unit) capsule 2,000 unit PO DAILY 07/13/23 [History Confirmed 08/14/23] coenzyme Q10 400 mg capsule 400 mg PO DAILY 07/13/23 [History Confirmed 08/14/23] ferrous sulfate 325 mg (65 mg iron) tablet 325 mg PO DAILY 07/13/23 [History Confirmed 08/14/23] glucosamine sulfate 500 mg tablet 500 mg PO DAILY 07/13/23 [History Confirmed 08/14/23] lisinopril 5 mg tablet 5 mg PO DAILY 07/13/23 [History Confirmed 08/14/23] oxycodone-acetaminophen 10 mg-325 mg tablet 1 tab PO Q6HR PRN pain 07/13/23 [History Confirmed 08/14/23] pantoprazole 40 mg tablet,delayed release (Protonix) 40 mg PO DAILY 07/13/23 [History Confirmed 08/14/23] furosemide 40 mg tablet (Lasix) 40 mg PO DAILY #90 tabs 08/01/23 [Rx Confirmed 08/14/23] gabapentin 100 mg capsule 100 mg PO TID 08/14/23 [History Confirmed 08/14/23] metoprolol succinate 50 mg tablet,extended release 24 hr 50 mg PO DAILY 08/14/23[History Confirmed 08/14/23] Active Medications: Active Medications Acetaminophen (Acetaminophen 325 Mg Tablet) 650 mg PO Q4H PRN PRN Reason: Pain Scale 1 - 5 Stop: 08/13/24 19:30 Atorvastatin Calcium (Atorvastatin 10 Mg Tablet) 10 mg PO DAILY BABAK Stop: 08/14/24 08:59 Docusate Sodium (Docusate 100 Mg Capsule) 200 mg PO BID PRN PRN Reason: Constipation Stop: 08/13/24 19:30 Gabapentin (Gabapentin 100 Mg Capsule) 100 mg PO TID BABAK Stop: 08/13/24 21:59 Last Admin: 08/14/23 22:37 Dose: 100 mg Hydralazine HCl (Hydralazine 20 Mg/Ml Vial) 10 mg IV-PUSH Q4H PRN PRN Reason: if SBP > 185 Stop: 08/13/24 19:30 Sodium Chloride (0.9 % Sodium Chloride) 500 mls @ 20 mls/hr IV PROTOCOL PRN PRN Reason: BLOOD TRANSFUSION Stop: 08/15/23 19:31 Metoprolol Succinate (Metoprolol Succinate 50 Mg Tab.Er.24h) 50 mg PO DAILY BABAK Stop: 08/14/24 08:59 Oxycodone/Acetaminophen (Oxycodone/Acetaminophen 5-325 Mg Tablet) 2 tab PO [id number] PRN Reason: pain Last Admin: 08/14/23 22:37 Dose: 2 tab Pantoprazole Sodium (Pantoprazole 40 Mg Vial) 40 mg IV-PUSH BID BABAK Stop: 08/13/24 20:59 Last Admin: 08/14/23 22:37 Dose: 40 mg Prochlorperazine Edisylate (Prochlorperazine Edisylate 10 Mg/2 Ml Vial) 5 mg IV-PUSH Q4H PRN PRN Reason: Nausea And Vomiting Stop: 08/13/24 19:30 Sodium Chloride (Sodium Chloride 0.9 % 10 Ml Syringe) 0 ml IV-PUSH PRN PRN PRN Reason: Flush Stop: 08/13/24 16:19 Last Admin: 08/14/23 18:02 Dose: 10 ml Sodium Chloride (Sodium Chloride 0.9 % 10 Ml Vial.Pf) 10 ml INJECTION PRN PRN PRN Reason: Dilution Stop: 08/13/24 19:30 Sodium Chloride (Sodium Chloride 0.9 % 10 Ml Syringe) 10 ml IV-PUSH PRN PRN PRN Reason: Flush Stop: 08/13/24 19:30 Exam Physical Exam Vital Signs: Temp Pulse Resp BP Pulse Ox O2 Del Method 98.0 F 60 16 140/76 96 Room Air 08/15/23 06:00 08/15/23 06:00 08/15/23 06:00 08/15/23 06:00 08/15/23 06:00 08/15/23 06:00 Narrative: General: Appears comfortable and not in distress Heart: S1-S2, no rub Lung: Bilateral air entry, no wheezing or crackles Abdomen: Soft, positive bowel sounds Extremities: No edema, no cyanosis Head: Atraumatic, normocephalic Ear: No gross hearing Deficit or external ear redness Eyes: No pallor or redness Neck: No JVD or visible mass Skin: No rashes , warm to touch MEDICAL REVIEWER: Awake,Alert, following simple command Musculoskeletal: No swelling or limitation of movement of the large joints Psychiatric: Cooperative, normal mood and affect Results - Nephrology Labs 08/15/23 06:32 08/15/23 06:32 Labs: 08/14/23 08/14/23 08/15/23 17:55 17:55 06:32 BUN 31 H 27 H Creatinine 1.43 H 1.28 H Iron Saturation Cancelled Ferritin 116.6 Cancelled Albumin 4.5 Radiology Impressions Impressions - last 24 hours: Any impression(s) listed above is documentation that was entered by the reading physician into a diagnostic report(s) for Malgorzata John Reyes. I have reviewed the report(s) and am incorporating any findings in the treatment plan of this patient where applicable. A&P - Nephrology Assessment/Plan (1) Acute blood loss anemia: Assessment/Problem Details: Patient has acute blood loss anemia with iron deficiency and positive occult blood test likely due to the GI bleed. She was transfused PRBC. (2) Gastritis with bleeding: Assessment/Problem Details: Patient had a EGD which showed gastritis with erosions. (3) CKD (chronic kidney disease) stage 3, GFR 30-59 ml/min: Assessment/Problem Details: She has a longstanding CKD due to the DM and HTN baseline serum creatinine around 1.2 to 1.4 mg/dL. (4) Hypertensive chronic kidney disease with stage 1 through stage 4 chronic kidney disease, or unspecified chronic kidney disease: Assessment/Problem Details: Her blood pressure is controlled. She appears euvolemic. She was taking Lasix,lisinopril and metoprolol at home. (5) Type 2 diabetes mellitus with diabetic chronic kidney disease: Assessment/Problem Details: She is currently on diet control. Plan * Monitor H&H and transfuse as needed to keep the hemoglobin greater than 8 g/dL. * Continue management of the GI bleed as per GI. * Continue home dose of the metoprolol Lasix and lisinopril. * Will give ferric gluconate 250 mg IV daily x 4 doses. If she gets discharged we will arrange IV iron as an outpatient. Patient was advised to keep the outpatient appointment. * Check renal function daily. * Thanks for consult. Will continue follow-up with you. Please feel free to call us with any question. Documented By: Aleyda Bourgeois MD 08/15/23 0848 Signed By: <Electronically signed by Aleyda Bourgeois MD> 08/15/[address] [place] [address] Ctr Work Phone: [phone] 387-742606-11-2024 Consult note Author Kuldeep Almazan [facility] August 15, 2023 8:33am Note Date/Time August 15, 2023 8:14 am [facility] [address] [place] [address] Gastroenterology Consult Note Signed Patient: Malgorzata Reyes MR#: [id number] : 1945 Acct:[id number] Age/Sex: 77 / F Adm Date: 4 Loc: 3T Room: [address] [place] [address] Type: ADM INOo Attending Dr: Meagan Roman MD Copies to: MD Misael Ding MD Ruta Semaskiene, MD~ HPI Data of Consult Date of Consultation: 08/15/23 Requesting Physician: Meagan Roman MD Consult Narrative History of present illness: Ms. Reyes is a 77 year old female with history of kidney cancer s/p nephrectomy, history of iron deficiency anemia of unclear etiology requiring iron infusions who gastroenterology is consulted for anemia. Patient reports unchanged dark stools since she started iron supplements. Denied change and bowel habits. She denies abdominal pain nausea vomiting diarrhea or other complaints. Patient is to take aspirin for headaches, she had EGD/colonoscopy in 03/2023, patient was normal but she had 3 spots in her stomach that could be bleeding, patient is not sure if there were ulcers, patient was started on PPI afterwards,colonoscopy showed a colonic polyp which was removed. cc:: CC: Meagan Roman MD Review of Systems Review of Systems All other systems reviewed & are negative unless noted below or in HPI [facility] Medical History (Updated 08/15/23 @ 08:33 by Kuldeep Almazan MD) Anemia Hypertension Surgical History (Updated 08/14/23 @ 16:23 by Lulu Rose RN) Hx of right knee surgery 07/19/23 Family History Brother Diabetes Legacy FamHx Relation: Brother(s) Hypertension Legacy FamHx Relation: Brother(s) Father Mother Sister Social History Smoking Status: Never smoker Substance Use Type: None Meds Medications and Allergies Allergies latex Allergy (Unknown, Verified 08/14/23 16:20) rash ketorolac [From Toradol] Allergy (Verified 08/14/23 16:20) Swelling of Lip/Tongue/Throat Home Medications alendronate 70 mg tablet 70 mg PO QWEEK 07/13/23 [History Confirmed 08/14/23] atorvastatin 10 mg tablet 10 mg PO DAILY 07/13/23 [History Confirmed 08/14/23] cholecalciferol (vitamin D3) 50 mcg (2,000 unit) capsule 2,000 unit PO DAILY 07/13/23 [History Confirmed 08/14/23] coenzyme Q10 400 mg capsule 400 mg PO DAILY 07/13/23 [History Confirmed 08/14/23] ferrous sulfate 325 mg (65 mg iron) tablet 325 mg PO DAILY 07/13/23 [History Confirmed 08/14/23] glucosamine sulfate 500 mg tablet 500 mg PO DAILY 07/13/23 [History Confirmed 08/14/23] lisinopril 5 mg tablet 5 mg PO DAILY 07/13/23 [History Confirmed 08/14/23] oxycodone-acetaminophen 10 mg-325 mg tablet 1 tab PO Q6HR PRN pain 07/13/23 [History Confirmed 08/14/23] pantoprazole 40 mg tablet,delayed release (Protonix) 40 mg PO DAILY 07/13/23 [History Confirmed 08/14/23] furosemide 40 mg tablet (Lasix) 40 mg PO DAILY #90 tabs 08/01/23 [Rx Confirmed 08/14/23] gabapentin 100 mg capsule 100 mg PO TID 08/14/23 [History Confirmed 08/14/23] metoprolol succinate 50 mg tablet,extended release 24 hr 50 mg PO DAILY 08/14/23[History Confirmed 08/14/23] Exam Physical Exam Vital Signs: Temp Pulse Resp BP Pulse Ox O2 Del Method 98.0 F 60 16 140/76 96 Room Air 08/15/23 06:00 08/15/23 06:00 08/15/23 06:00 08/15/23 06:00 08/15/23 06:00 08/15/23 06:00 Narrative: General appearance: NAD Skin: No jaundice Head: NC/AT Eyes: Anicteric Neck: Supple Lungs: Normal respiratory effort, no use of accessory muscles Abdomen: Nondistended Neuro: Ox3. Results - Gastroenterology Labs Labs: Laboratory Results - last 24 hr 08/14/23 08/14/23 08/14/23 17:55 17:55 17:55 Corrected WBC 7.7 Uncorrected WBC Count 7.7 RBC 2.57 L Hgb 7.7 L Hct 22.9 L MCV 89.1 MCH 29.9 MCHC 33.6 RDW 14.6 Plt Count 291 MPV 8.3 Neut % (Auto) 70.0 Lymph % (Auto) 19.2 Rutherford % (Auto) 6.8 Eos % (Auto) 3.3 Baso % (Auto) 0.7 Nucleat RBC Rel Count 0.1 Neut # (Auto) 5.4 Lymph # (Auto) 1.5 Rutherford # (Auto) 0.5 Eos # (Auto) 0.3 Baso # (Auto) 0.1 Monocyte Dist Width 15.64 PHA Creatinine Clear 33.40 Sodium 131 L Potassium 5.1 Chloride 100 Carbon Dioxide 23.7 Anion Gap 12.4 BUN 31 H Creatinine 1.43 H Est GFR (CKD-EPI) 38.248 Glucose 94 Calcium 8.7 Iron 29 L Cancelled TIBC 272 Cancelled Iron Saturation Cancelled Transferrin 194 L Ferritin Total Bilirubin AST ALT Alkaline Phosphatase Total Protein Albumin Globulin Albumin/Globulin Ratio Vitamin B12 Folate Blood Type Blood Type Recheck Antibody Screen Crossmatch ([facility]) 08/14/23 08/14/23 08/14/23 17:55 17:55 17:55 Corrected WBC Uncorrected WBC Count RBC Hgb Hct MCV MCH MCHC RDW Plt Count MPV Neut % (Auto) Lymph % (Auto) Rutherford % (Auto) Eos % (Auto) Baso % (Auto) Nucleat RBC Rel Count Neut # (Auto) Lymph # (Auto) Rutherford # (Auto) Eos # (Auto) Baso # (Auto) Monocyte Dist Width PHA Creatinine Clear Sodium Potassium Chloride Carbon Dioxide Anion Gap BUN Creatinine Est GFR (CKD-EPI) Glucose Calcium Iron TIBC Iron Saturation Transferrin Cancelled Ferritin 116.6 Cancelled Total Bilirubin 0.3 AST 12 L ALT 6 L Alkaline Phosphatase 55 Total Protein 7.2 Albumin 4.5 Globulin 2.7 Albumin/Globulin Ratio 1.7 Vitamin B12 457 Cancelled Folate 27.0 Blood Type Blood Type Recheck Antibody Screen Crossmatch ([facility]) 08/14/23 08/14/23 08/15/23 17:55 19:59 06:32 Corrected WBC 4.9 Uncorrected WBC Count 4.9 RBC 2.97 L Hgb 8.8 L Hct 26.1 L MCV 87.6 MCH 29.5 MCHC 33.6 RDW 14.8 Plt Count 273 MPV 8.3 Neut % (Auto) 57.5 Lymph % (Auto) 26.9 Rutherford % (Auto) 9.7 Eos % (Auto) 5.1 Baso % (Auto) 0.8 Nucleat RBC Rel Count 0.1 Neut # (Auto) 2.8 Lymph # (Auto) 1.3 Rutherford # (Auto) 0.5 Eos # (Auto) 0.2 Baso # (Auto) 0.0 Monocyte Dist Width PHA Creatinine Clear Sodium Potassium Chloride Carbon Dioxide Anion Gap BUN Creatinine Est GFR (CKD-EPI) Glucose Calcium Iron TIBC Iron Saturation Transferrin Ferritin Total Bilirubin AST ALT Alkaline Phosphatase Total Protein Albumin Globulin Albumin/Globulin Ratio Vitamin B12 Folate Cancelled Blood Type A Negative Blood Type Recheck A Negative Antibody Screen Negative Crossmatch ([facility]) See Detail A&P - Gastroenterology Assessment/Plan (1) Anemia: Plan Ms. Reyes is a 77 year old female with history of kidney cancer s/p nephrectomy, CKD, history of iron deficiency anemia of unclear etiology requiring iron infusions who gastroenterology is consulted for anemia. No overt bleeding Questionable history of gastric ulcer History of ASA use CBC and iron studies consider with normocytic anemia however patient is on iron replacement therapy -Trend CBC and transfuse as needed, Goal Hgb >7.0, ensure two large bore IVs at least -PPI 40 mg IV bid -Avoid NSAIDs -Plan for EGD today. Please keep the patient n.p.o. Documented By: Kuldeep Almazan MD 08/15/23 0808 Signed By: <Electronically signed by Kuldeep Almazan MD> 08/15/23 0833 [facility] Work Phone: [phone]) 754-202406-11-2024 [facility] History and physical note Author Meagan Roman [facility] August 14, 2023 7:50pm Note Date/Time August 14, 2023 7:50 pm [facility] [address] [place] [address] Hospitalist H&P Signed Patient: Malgorzata Reyes MR#: [id number] : 1945 Acct:[id number] Age/Sex: 77 / F Adm Date: 4 Loc: ER Room: Type: [facility] ER Attending Dr: Copies to: DO Misael Robins MD Ruta Semaskiene, MD~ HPI DATE OF EXAMINATION: 08/14/23 CHIEF COMPLAINT: abn lab work HISTORY OF PRESENT ILLNESS: 77-year old female with a history of iron deficiency anemia, of unclear etiology, history of iron infusions, status post EGD and colonoscopy in [facility], at that time showed some stomach irritation, placed on Protonix, consider due to aspirin use presented with abnormal lab. Patient has been following with route aide for single kidney, she is status post remote nephrectomy due to kidney cancer, she has been undergoing laboratory workup withlast hemoglobin showing 7.2. Patient was called and recommended to go to emergency room. Patient has black stools but she has been taking iron, and she did not see any change in her stools from her baseline. She denies any abdominal pain. No nausea no vomiting. She never had blood transfusion. She denies any shortness of breath any chest pain dizziness. 4 weeks ago she had right knee replacement and since then she has been taking aspirin therapy for DVT prophylaxis. 10 systems are reviewed and are negative apart as mentioned H&P General -patient is awake alert oriented ?3, does not appear to be in distress HEENT -normal oropharyngeal mucosa without any ulcers or exudates Cardiovascular -S1 plus S2, with regular rate, without any murmurs, gallops, rubs Pulmonary -clear to auscultation bilaterally Gastrointestinal -abdomen is soft, nondistended, nontender, bowel sounds positive, no rigidity, no rebound Genitourinary -no flank tenderness Musculoskeletal -no back tenderness, no significant joint swelling, full range of motion Neurological -no focal Skin -pale Extremities - no edema in bilateral lower extremities noted Psychiatry - appropriate affect Laboratory work up, imaging studies reviewed EKG personally reviewed by me normal sinus rhythm without acute ST-T wave changes, Previous records in the computer system reviewed [facility] Medical History (Updated 08/14/23 @ 19:38 by Liliana Kaba DO) Hypertension Surgical History (Updated 08/14/23 @ 16:23 by Lulu Rose RN) Hx of right knee surgery 07/19/23 Family History Brother Diabetes Legacy FamHx Relation: Brother(s) Hypertension Legacy FamHx Relation: Brother(s) Father Mother Sister Social History Smoking Status: Former smoker Substance Use Type: None Meds Medications and Allergies Allergies latex Allergy (Unknown, Verified 08/14/23 16:20) rash ketorolac [From Toradol] Allergy (Verified 08/14/23 16:20) Swelling of Lip/Tongue/Throat Home Medications alendronate 70 mg tablet 70 mg PO QWEEK 07/13/23 [History Confirmed 08/14/23] atorvastatin 10 mg tablet 10 mg PO DAILY 07/13/23 [History Confirmed 08/14/23] cholecalciferol (vitamin D3) 50 mcg (2,000 unit) capsule 2,000 unit PO DAILY 07/13/23 [History Confirmed 08/14/23] coenzyme Q10 400 mg capsule 400 mg PO DAILY 07/13/23 [History Confirmed 08/14/23] ferrous sulfate 325 mg (65 mg iron) tablet 325 mg PO DAILY 07/13/23 [History Confirmed 08/14/23] glucosamine sulfate 500 mg tablet 500 mg PO DAILY 07/13/23 [History Confirmed 08/14/23] lisinopril 5 mg tablet 5 mg PO DAILY 07/13/23 [History Confirmed 08/14/23] oxycodone-acetaminophen 10 mg-325 mg tablet 1 tab PO Q6HR PRN pain 07/13/23 [History Confirmed 08/14/23] pantoprazole 40 mg tablet,delayed release (Protonix) 40 mg PO DAILY 07/13/23 [History Confirmed 08/14/23] furosemide 40 mg tablet (Lasix) 40 mg PO DAILY #90 tabs 08/01/23 [Rx Confirmed 08/14/23] gabapentin 100 mg capsule 100 mg PO TID 08/14/23 [History Confirmed 08/14/23] metoprolol succinate 50 mg tablet,extended release 24 hr 50 mg PO DAILY 08/14/23[History Confirmed 08/14/23] Exam Physical Exam Vital Signs: Temp Pulse Resp BP Pulse Ox O2 Del Method 36.7 C 60 18 174/74 H 97 Room Air 08/14/23 16:28 08/14/23 19:03 08/14/23 18:50 08/14/23 18:50 08/14/23 18:50 08/14/23 18:50 Results - Hospitalist H&P Lab Results Labs: Laboratory Last Values Corrected WBC 7.7 X10E3/uL (3.8-11.6) 08/14/23 17:55 Uncorrected WBC Count 7.7 x10E3/uL (3.8-11.6) 08/14/23 17:55 RBC 2.57 X10E6/uL (3.60-5.00) L 08/14/23 17:55 Hgb 7.7 g/dL (11.8-15.4) L 08/14/23 17:55 Hct 22.9 % (34.0-46.4) L 08/14/23 17:55 MCV 89.1 fl (80-100) 08/14/23 17:55 MCH 29.9 pg (24.7-34.3) 08/14/23 17:55 MCHC 33.6 g/dL (32.0-35.0) 08/14/23 17:55 RDW 14.6 % (11.9-15.3) 08/14/23 17:55 Plt Count 291 x10E3/uL (150-450) 08/14/23 17:55 MPV 8.3 fl (6.3-10.7) 08/14/23 17:55 Neut % (Auto) 70.0 % (.) 08/14/23 17:55 Lymph % (Auto) 19.2 % (.) 08/14/23 17:55 Rutherford % (Auto) 6.8 % (.) 08/14/23 17:55 Eos % (Auto) 3.3 % (.) 08/14/23 17:55 Baso % (Auto) 0.7 % (.) 08/14/23 17:55 Nucleat RBC Rel Count 0.1 /100 WBC (0-0.5) 08/14/23 17:55 Neut # (Auto) 5.4 x10E3/uL (1.8-7.7) 08/14/23 17:55 Lymph # (Auto) 1.5 x10E3/uL (1.00-4.8) 08/14/23 17:55 Rutherford # (Auto) 0.5 x10E3/uL (0.0-0.8) 08/14/23 17:55 Eos # (Auto) 0.3 x10E3/uL (0.0-0.45) 08/14/23 17:55 Baso # (Auto) 0.1 x10E3/uL (0.0-0.2) 08/14/23 17:55 Monocyte Dist Width 15.64 % (0.00-20.00) 08/14/23 17:55 PHA Creatinine Clear 33.40 08/14/23 17:55 Sodium 131 mmol/L (136-145) L 08/14/23 17:55 Potassium 5.1 mmol/L (3.5-5.1) 08/14/23 17:55 Chloride 100 mmol/L (98-107) 08/14/23 17:55 Carbon Dioxide 23.7 mmol/L (21.0-31.0) 08/14/23 17:55 Anion Gap 12.4 mEq/L (6.0-15.0) 08/14/23 17:55 BUN 31 mg/dL (7-25) H 08/14/23 17:55 Creatinine 1.43 mg/dL (0.60-1.20) H 08/14/23 17:55 Est GFR (CKD-EPI) 38.248 mL/Min 08/14/23 17:55 Glucose 94 mg/dL (70-100) 08/14/23 17:55 Calcium 8.7 mg/dL (8.6-10.3) 08/14/23 17:55 Iron Cancelled 08/14/23 17:55 TIBC Cancelled 08/14/23 17:55 Iron Saturation Cancelled 08/14/23 17:55 Transferrin Cancelled 08/14/23 17:55 Ferritin Cancelled 08/14/23 17:55 Total Bilirubin 0.3 mg/dl (0.3-1.0) 08/14/23 17:55 AST 12 U/L (13-39) L 08/14/23 17:55 ALT 6 U/L (7-52) L 08/14/23 17:55 Alkaline Phosphatase 55 U/L (34-104) 08/14/23 17:55 Total Protein 7.2 gm/dL (6.4-8.9) 08/14/23 17:55 Albumin 4.5 gm/dL (3.5-5.7) 08/14/23 17:55 Globulin 2.7 gm/dL 08/14/23 17:55 Albumin/Globulin Ratio 1.7 08/14/23 17:55 Vitamin B12 Cancelled 08/14/23 17:55 Folate Cancelled 08/14/23 17:55 Blood Type A Negative 08/14/23 17:55 Antibody Screen Negative 08/14/23 17:55 Microbiology Results Micro: Microbiology - Results from entire visit 08/14/23 19:21 Stool Stool Occult Blood ([facility]) - Final Assessment & Plan Assessment/Plan (1) Occult blood positive stool: (2) Anemia: (3) Kidney disease: Plan 1. Normocytic anemia with drop in hematocrit, will transfuse 1 unit of packed red blood cells Check iron studies, B12 folic acid Guaiac stool positive Will consult gastroenterology For now continue with PPIs 2. Kidney dysfunction with single kidney, status post remote nephrectomy due tocancer Baseline creatinine is not known, will consult nephrology Recheck kidney function in a.m. Avoid any nephrotoxic medications 3. Paroxysmal atrial fibrillation, currently normal sinus rhythm, not on anticoagulation therapy 4. Status post recent right knee replacement, on aspirin therapy for DVT prophylaxis Hold aspirin for now 5. Hypertension, continue with beta-blockers, hold lisinopril IP vs OBS Justification Based on differential dx, clinical care plan, and risk of adverse events, if untreated, in my clinical judgement this patient requires an acute care setting as: INPATIENT because of an expectation of an over 2 midnight stay. Estimated length of stay (# of days): 3 Documented By: Meagan Roman MD 08/14/231945 Signed By: <Electronically signed by Meagan Roman MD> 08/14/23 1950 [facility] Work Phone: [phone]) 986-551302-13-2024 Telephone encounter Note* Telephone Encounter - Misael Perez MD - 04/18/2023 3:32 PM EST Patient due for all labs and in chart. Please print order or send to lab. If print albumin needs printed separately from other labs. MAN [facility] [id number] Miscellaneous Notes* Telephone Encounter - Misael Perez MD - 04/18/2023 3:32 PM EST Patient due for all labs and in chart. Please print order or send to lab. If print albumin needs printed separately from other labs. MAN documented in this encounterMissouri Southern [id number] History of Present illness Narrative* Felipe Schaefer, - 04/18/2023 10:30 AM EST Images from the original note were not included. HISTORY OF PRESENT ILLNESS: Malgorzata Reyes is an 77 y.o. @ female. Chief complaint RT knee s/p MRI RT Knee: here for MRI results [facility] 2/ Depo Medrol injection RT knee (02/22/23) with [...] April 12, 2023 from the [facility]. There is thinning of articular cartilage and loss of articular cartilage consistent with arthritis in all 3compartments. There is a tear of the medial [...] questions. Candy Schaefer D.O. documented in this encounterMissouri Southern [id number] History of Present illness Narrative* Valery Garcia NP - 04/10/2023 9:30 AM EST Subjective Patient ID: Malgorzata Reyes is a 77 y.o. female. RT Knee 6 weeks 5 days s/p Depo Medrol injection RT knee (02/22/23) with 50% improvement which lasted 1 1/2weeks. Denies new injury Constant pain posterior and [...] knee without contrast [facility] [place], activities as tolerated, f/u s/p MRI documented in this encounterNOMS [id number] Evaluation note* Encounter Date Diagnosis Assessment Notes [...] potassium diet and provide information about it. [employer] Other 01-02-2024 Miscellaneous Notes* Perioperative Nursing Note - Nani Braun RN - 03/07/2023 1:00 PM EST Preoperative Education Checklist- General Surgery date: 03/08/23 Surgery time: 1030 Arrival time: 929 1. Bring a photo ID and your insurance card with you the day of surgery. You will check in at the main lobby of the [facility]- registration desk is straight ahead as soon as you walk in. Tell them you are here for surgery. 2. If you have a Living Will/Durable Power of [employer] for Health Care that is not on [...] after you have bathed. 5. NO nail citizen of [place]/acrylic on at least one finger. If you are having a hand, wrist or foot surgery then all nail citizen of [place] and artificial/acrylic nails must be removed from [...] WITH YOU ANY DEVICES YOU MAY NEED: AZUL hose, ice machine, sling/swath, brace or special [...] please call the P[facility] Testing office at [phone], Mon.-Fri. 7 a.m.-3 p.m. Leave a voicemail [...] days prior to procedure documented in this encounterMayo Memorial HospitalHowGood [id number] Nurse Note* Perioperative Nursing Note - Nani Braun RN - 03/07/2023 1:00 PM EST Preoperative Education Checklist- General Surgery date: 03/08/23 Surgery time: 1030 Arrival time: 929 1. Bring a photo ID and your insurance card with you the day of surgery. You will check in at the main lobby of the [facility]- registration desk is straight ahead as soon as you walk in. Tell them you are here for surgery. 2. If you have a Living Will/Durable Power of [employer] Senior [employer] for Health Care that is not on [...] after you have bathed. 5. NO nail citizen of [place]/acrylic on at least one finger. If you are having a hand, wrist or foot surgery then all nail citizen of [place] and artificial/acrylic nails must be removed from [...] WITH YOU ANY DEVICES YOU MAY NEED: AZUL hose, ice machine, sling/swath, brace or special [...] please call the Preadmission Testing office at [phone], Mon.-Fri. 7 a.m.-3 p.m. Leave a voicemail [...] Stop taking 0 days prior to procedure [facility] [employer] [id number] Evaluation note* Encounter Date Diagnosis Assessment Notes Treatment Notes Treatment Clinical Notes Feb, Chronic kidney disease, stage 3 unspecified (ICD-10 - N18.30) Feb, Anemia in chronic kidney disease (ICD-10 - D63.1) [employer] Other 09-20-2023 Evaluation note* Encounter Date Diagnosis Assessment Notes Treatment Notes Treatment Clinical Notes Nov, Hypertensive chronic kidney disease with stage 1 through stage 4 chronic kidney disease, or unspecified chronic kidney disease (ICD-10 - I12.9) [employer] Other 08-22-2023 Evaluation note* Encounter Date Diagnosis Assessment Notes Treatment Notes Treatment Clinical Notes Oct, Hypertensive chronic kidney disease with stage 1 through stage 4 chronic kidney disease, or unspecified chronic kidney disease (ICD-10 - I12.9) [employer] Other 07-10-2023 Evaluation note* Encounter Date Diagnosis Assessment Notes Treatment Notes Treatment Clinical Notes Sep, Proteinuria (ICD-10 - R80.9) [employer] Other 06-01-2023 Evaluation note* Encounter Date Diagnosis [...] potassium diet and provide information about it. [employer] Other 01-03-2023 Evaluation note* Encounter Date Diagnosis Assessment Notes Treatment Notes Treatment Clinical Notes Mar, Proteinuria (ICD-10 - R80.9) [employer] Other 11-10-2022 Evaluation note* Encounter Date Diagnosis [...] due for it and persistent deficiency anemia. 10 Jan, 2022 Renal cancer (ICD-10 - C64.9) She has [...] No need for any medication for now. [employer] Other 07-05-2022 Evaluation note* Encounter Date Diagnosis Assessment Notes Treatment Notes Treatment Clinical Notes Sep, Hypertensive chronic kidney disease with stage 1 through stage 4 chronic kidney disease, or unspecified chronic kidney disease (ICD-10 - I12.9) [employer] Other 04-04-2022 Evaluation note* Encounter Date Diagnosis Assessment Notes Treatment Notes Treatment Clinical Notes Jun, Proteinuria (ICD-10 - R80.9) [employer] Other 01-04-2022 Evaluation note* Encounter Date Diagnosis Assessment Notes Treatment Notes Treatment Clinical Notes Mar, Hypertensive chronic kidney disease with stage 1 through stage 4 chronic kidney disease, or unspecified chronic kidney disease (ICD-10 - I12.9) [employer] Other 11-24-2021 Evaluation note* Encounter Date Diagnosis Assessment Notes Treatment Notes Treatment Clinical Notes Jan, Hypertensive chronic kidney disease with stage 1 through stage 4 chronic kidney disease, or unspecified chronic kidney disease (ICD-10 - I12.9) [employer] Other 10-07-2021 Evaluation note* Encounter Date Diagnosis [...] (ICD-10 - E55.9) Continue oral Vit D [place] [facility] Other Evaluation noteNo InformationNort [facility] Other Evaluation note* Diagnosis Chronic pain of right knee- Primary Arthritis of right knee Internal derangement of right knee documented in this encounter [facility] HealthcareEvaluation note* Diagnosis Chronic pain of right knee- Primary Arthritis of right knee Complex tear of medial meniscus of right knee as current injury, initial encounter Other tear of lateral meniscus of right knee as current injury, initial encounter documented in this encounter [facility] HealthcareEvaluation note* Diagnosis Dyslipidemia ([facility])- Primary Other and unspecified hyperlipidemia Vitamin D deficiency Type 2 diabetes mellitus with hyperglycemia, without long-term current use of insulin ([facility]) Encounter for long-term current use of medication Obesity (BMI 30-39.9) documented in this encounter [facility] HealthcareEvaluation note* Diagnosis Onset Date Resolution Status Anemia of renal disease acut e CKD (chronic kidney disease) stage 3, GFR 30-59 ml/min acute Hyperkalemia acute [id number] acute Hyperuricemia acute Proteinuria acute Renal cancer acute Type 2 diabetes mellitus wit h diabetic chronic kidney disease acute Vitamin D deficiency acute [facility] Work Phone: Evaluation note* Diagnosis Onset Date Resolution Status Anemia of renal disease acut e CKD (chronic kidney disease) stage 3, GFR 30-59 ml/min acute Hyperkalemia acute [id number] acute Hyperuricemia acute Proteinuria acute Renal cancer acute Type 2 diabetes mellitus wit h diabetic chronic kidney disease acute Vitamin D deficiency acute Anemia of renal disease acut e CKD (chronic kidney disease) stage 3, GFR 30-59 ml/min acute [id number] acute Type 2 diabetes mellitus wit h diabetic chronic kidney disease acute Acute blood loss anemia acut e Anemia acute CKD (chronic kidney disease) stage 3, GFR 30-59 ml/min acute Gastritis with bleeding acut e [id number] acute Occult blood positive stool acute Type 2 diabetes mellitus wit h diabetic chronic kidney disease acute [facility] Work Phone: Hisphop general Narrative - Reported* Type Description Date [...] vein ligation 2018 Hospitalization History SEE ABOVE [employer] Other Hiskhtt general Narrative - Reported* Type Description Date [...] METABOLIC ENCEPHALOPATHY, COMPLICATED URINARY TRACT INFECTION 11/21/2022 [employer] Other History general Narrative - Reported* Type Description [...] REMOVED 1974 Surgical History vein ligation 2018 Surgical History EGD, BIOPSY OF STOMACH, COLONOS COPY X 1 POLYP 03/08/2023 Hospitalization History SEE ABOVE Hospitalization History ACUTE KIDNEY INJ URY, CHF, ACUTE METABOLIC ENCEPHALOPATHY, COMPLICATED URINARY TRACT INFECTION 11/21/2022 [employer] Other InstructionsNot on filedocumented in this encounter [email or web address] System Summary Purpose Family History No Family History Records Found Relationship Condition Age at Onset Recorded Date/T charles brother Diabetes mellitus Unknown Hypertension Unknown father Unknown Not Specified Unknown sister Unknown Advance Directives No Advanced Directives Records Found Advance Directive Response Recorded Date/ Time Advance Directives No July 13, 2023 11:41am Reason for Referral Specialty Diagnoses / Procedures Referred By Ewelina irvin Referred To Contact Radiology Diagnoses Internal derangement of right knee Procedures MR knee right wo IV contrast Valery Garcia NP [address] [place] [address] Referral ID Status Reason Start Date Expiration Date V isits Requested Visits Authorized [id number] Pending Review 04/10/2023 10/07/2023 1 1 Chief Complaint and Reason for Visit Chief Complaint RENAL F/U Reason for Visit Anemia of renal dise ase CKD (chronic kidney disease) stage 3, GFR 30-59 ml/min Hyperkalemia [id number] Hyperuricemia Proteinuria Renal cancer Type 2 diabetes mellitus with diabetic chronic kidney disease Vitamin D deficiency Chief Complaint RENAL F/U RENAL INJ PROCRIT / NURSE Hemoglobin is low per Dr Hemoglobin is low per Dr Hemoglobin is low per Dr Reason for Visit Anemia of renal dise ase CKD (chronic kidney disease) stage 3, GFR 30-59 ml/min Hyperkalemia [id number] Hyperuricemia Proteinuria Renal cancer Type 2 diabetes mellitus with diabetic chronic kidney disease Vitamin D deficiency Anemia of renal disease CKD (chronic kidney disease) stage 3, GFR 30-59 ml/min [id number] Type 2 diabetes mellitus with diabetic chronic kidney disease Acute blood loss anemia Anemia CKD (chronic kidney disease) stage 3, GFR 30-59 ml/min Gastritis with bleeding [id number] Occult blood positive stool Type 2 diabetes mellitus with diabetic chronic kidney disease Additional Source Comments INFORMATION SOURCE (unrecogn ized section and content) DATE CREATED AUTHOR 10/28/2017 [facility] DATE CREATED AUTHOR AUTHOR'S ORGANIZ ATION 07/21/2019 [facility] DATE CREATED AUTHOR AUTHOR'S ORGANIZ ATION 04/29/2022 [facility] DATE CREATED AUTHOR AUTHOR'S ORGANIZ ATION 07/21/2023 [facility] DATE CREATED AUTHOR AUTHOR'S ORGANIZ ATION 08/12/2023 [facility] DATE CREATED AUTHOR AUTHOR'S ORGANIZ ATION 08/15/2023 [facility] REASON FOR VISIT (unrecogniz ed section and content) Reason Comments Pain Reason Comments Follow-up Care Teams (unrecognized sec tion and content) Team Status: Active Member Role Status Dates Misael Perez MD Primary Care Provider Active Team Status: Active [...] July 13, 2023 End: July 13, 2023 Team Status: Inactive Member Role Status Dates Yan Ramos DO Primary Care Provider Active Start: July 18, 2023 End: July 18, 2023 Aleyda Bourgeois MD Attending Provider Active Start : July 18, 2023 End: July 18, 2023 Team Status: Active Member Role Status Dates Misael Perez MD Primary Care Provider Active S tart: August 14, 2023 Aleyda Bourgeois MD Attending Provider Active Start : August 14, 2023 Team Status: Inactive Member Role Status Dates Misael Perez MD Primary Care Provider Active S tart: August 14, 2023 End: August 15, 2023 Liliana Kaba DO Emergency Provider Active Sta rt: August 14, 2023 End: August 15, 2023 Meagan Roman MD Admit Provider, Att ending Provider Active Start: August 14, 2023 End: August 15, 2023 Kuldeep Almazan MD Other Provider Active Start: Aug End: August 15, 2023 Aleyda Bourgeois MD Other Provider Active Start: 2023 End: August 15, 2023 Team Status: Active Member Role Status Dates Misael Perez MD Primary Care Provider Active S tart: August 15, 2023 Liliana Kaba DO Emergency Provider Active Sta rt: August 15, 2023 Meagan Roman MD Admit Provider, Other Provider Ac tive Start: August 15, 2023 Kuldeep Almazan MD Attending Provider, Other Provider Act kristi Start: August 15, 2023 Aleyda Bourgeois MD Other Provider Active Start: 2023 Team Status: Active Member Role Status Dates Misael Perez MD Primary Care Provider Active S tart: August 15, 2023 Liliana Kaba DO Emergency Provider Active Sta rt: August 15, 2023 Meagan Roman MD Admit Provider, Other Provider Ac tive Start: August 15, 2023 Kuldeep Almazan MD Other Provider Active Start: Aug Aleyda Bourgeois MD Attending Provider, Other Provider Ac tive Start: August 15, 2023 [employer] Supervisor Relationship Specialty Start Date End Date Misael Perez MD [address] [place] [address] PCP - General Family Medicine 04/06/23 [employer] Supervisor Relationship Specialty Start Date End Date Misael Perez MD [address] [place] [phone] PCP - General Family Medicine 04/06/23 [employer] Supervisor Relationship Specialty Start Date End Date Misael Perez MD [address] [place] [phone] PCP - General Family Medicine 04/06/23 [employer] Supervisor Relationship Specialty Start Date End Date Misael Perez MD [address] [place] [phone] PCP - General Family Medicine 04/06/23 [employer] Supervisor Relationship Specialty Start Date End Date Misael Perez MD [address] [place] [phone] PCP - General Family Medicine 04/06/23 Team Status: Active Member Role Status Dates Yan Ramos , DO Primary Care Provider Active Goals (unrecognized section and content) Goals may [...] BE BASED ON THE PRIMARY CLINICAL RECORDS. [facility]. provides no warranty or guarantee of the accuracy or completeness of information in this document.
[2023-08-16 13:31] LABS: Hematocrit 27.5 % (36.0-48.0); Hemoglobin 8.6 g/dL (12.0-16.0); Mean Corpuscular HGB Conc 31.3 g/dL (29.9-35.2); Mean Corpuscular Hemoglobin 29.1 pg (26.7-34.0); Mean Corpuscular Volume 92.9 fL (81.0-99.0); Mean Platelet Volume 10.5 fL (9.5-13.5); Platelet Count 296 10^3/uL (150-450); Red Blood Count 2.96 10^6/uL (4.20-5.40); Red Cell Distribution Width 14.8 % (11.0-15.0); White Blood Count 6.2 10^3/uL (4.0-11.0)
[2023-08-16 13:48] LABS: Anion Gap 15.7; BUN Creatinine Ratio 15.7; Calcium 9.1 mg/dL (8.5-10.1); Carbon Dioxide 24.8 mmol/L (21.0-32.0); Chloride 104 mmol/L (98-107); Estimated GFR (African America 40 (>=60); Estimated GFR (Non-African Ame 33 (>=60); Glucose 102 mg/dL (74-106); Potassium 5.5 mmol/L (3.5-5.1); Sodium 139 mmol/L (136-145)
== END 2023-08-16 12:36 | disposition home or self-care (01) ==
LOC: LAB 12:37
PROVIDERS: PCP Family Medicine
DX: D64.9 Anemia, unspecified (principal); N18.30 Chronic kidney disease, stage 3 unspecified
CPT/HCPCS: 36415; 80048; 85027

== ENCOUNTER 2023-09-01 07:32 | Outpatient (RCR) | payer MEDICARE, OTHER, SELFPAY ==
[2023-08-28 12:02] VITALS: BP 114/54; PULSE 51; TEMP 36.2; O2SAT 97
[2023-08-28] MEDS: IRON SUCROSE COMPLEX 200 MG in 0.9 % SODIUM CHLORIDE 100 ML 220 MG IV (12:05)
[2023-08-30 12:00] VITALS: BP 135/72; PULSE 52; TEMP 36; O2SAT 98
[2023-08-30] MEDS: IRON SUCROSE COMPLEX 200 MG in 0.9 % SODIUM CHLORIDE 100 ML 220 MG IV (12:10)
[2023-09-01 11:55] VITALS: BP 144/77; PULSE 54; TEMP 36.2; O2SAT 97
[2023-09-01] MEDS: IRON SUCROSE COMPLEX 200 MG in 0.9 % SODIUM CHLORIDE 100 ML 220 MG IV (12:01)
== END 2023-09-03 23:59 | disposition home or self-care (01) ==
LOC: INF 07:32
PROVIDERS: PCP Family Medicine; Visit Provider Internal Medicine
DX: N18.30 Chronic kidney disease, stage 3 unspecified (principal); D63.1 Anemia in chronic kidney disease
CPT/HCPCS: 96365; J1756

== ENCOUNTER 2023-09-06 07:36 | Outpatient (RCR) | payer MEDICARE, OTHER, SELFPAY ==
[2023-09-04 12:10] VITALS: BP 122/76; PULSE 53; TEMP 36; O2SAT 97
[2023-09-04] MEDS: IRON SUCROSE COMPLEX 200 MG in 0.9 % SODIUM CHLORIDE 100 ML 220 MG IV (12:13)
[2023-09-06] MEDS: IRON SUCROSE COMPLEX 200 MG in 0.9 % SODIUM CHLORIDE 100 ML 220 MG IV (12:13)
[2023-09-06 12:23] VITALS: BP 111/68; PULSE 53; TEMP 36.2; O2SAT 94
== END 2023-09-06 14:46 | disposition home or self-care (01) ==
LOC: INF 07:36
PROVIDERS: PCP Family Medicine; Visit Provider Internal Medicine
DX: N18.30 Chronic kidney disease, stage 3 unspecified (principal); D63.1 Anemia in chronic kidney disease
CPT/HCPCS: 96365; J1756

== ENCOUNTER 2023-12-04 10:03 | Outpatient (OUT) | payer MEDICARE, OTHER, SELFPAY ==
--- OUTSIDE RECORDS SUMMARY | 2023-12-04 10:08 | XMS_ITS | CCD ---
Author Organization [facility] CliniSynh Care Team Providers Care Delinquency Prevention Officer Name Role Phone PHYSICIAN, DEFAULT Unavailable Unavailable [...] Provider Misael Marin MD Primary Care Provider MD Misael Perez Primary Care Provider DO Liliana Kaba Emergency Provider MD Meagan Roman Admit Provider MD Meagan Roman Attending Provider [phone] MD Kuldeep Almazan Other Provider MD Aleyda Bourgeois Other Provider OLIVE, FELIPE Acuna Referring Unavailable NADERER, MISAEL Primary Care Unavailable OLIVE, FELIPE Acuna Referring Unavailable NADERER, MISAEL Primary Care Unavailable YUHAS, MICHAELA Leone Referring Unavailable OLIVE, FELIPE Acuna Referring Unavailable NADERER, MISAEL Primary Care Unavailable OLIVE, FELIPE Acuna Referring Unavailable NADERER, MISAEL Primary Care Unavailable OLIVE, FELIPE Acuna Admitting Unavailable OLIVE, FELIPE Acuna Attending Unavailable OLIVE, FELIPE Acuna Referring Unavailable NADERER, MISAEL Primary Care Unavailable MACHADONANCY JETT Consulting Unavailable YUHAS, MICHAELA Leone Admitting Unavailable YUHAS, MICHAELA Leone Attending Unavailable YUHAS, MICHAELA Leone Primary Care Unavailable YUHAS, MICHAELA Leone Attending Unavailable YUHAS, MICHAELA Leone Referring Unavailable NADERER, MISAEL Referring Unavailable NADERER, MISAEL Primary Care Unavailable HERMAN JORGE Attending Unavailable NADERER, MISAEL Primary Care Unavailable DENNIS, ALEYDA Referring Unavailable NADERER, MISAEL Primary Care Unavailable APLING, VALERY Ayala Attending Unavailable APLING, VALERY Ayala Referring Unavailable OLIVE, FELIPE Acuna Attending Unavailable YULY VALDERRAMA Attending Unavailable OLIVE, FELIPE Acuna Referring Unavailable NADERER, MISAEL Attending Unavailable OLIVE, FELIPE Acuna Attending Unavailable OLIVE, [...] Attending Unavailable OLIVE, FELIPE Acuna Attending Unavailable OLIVE, FELIPE Acuna Referring Unavailable LAVELLEYULY BOWLES Attending Unavailable OLIVE, FELIPE Acuna Referring Unavailable JL PEPE Attending Unavailable SHAIKH BAILEY Referring Unavailable CHERY VELA Attending Unavailable APLING, VALERY Ayala Attending Unavailable MD Kuldeep Almazan Attending Provider Misael Perez Primary Care Unavailable Asaad, Imad Admitting Unavailable Asaad, Imad Attending Unavailable ElinaMisael Primary Care Unavailable Asaad, Imad Consulting Unavailable Jessie, Meagan Admitting Unavailable Semasklashaune, Meagan Attending Unavailable Aleyda Bourgeois Consulting Unavailable Allergies Allergy Classification Reported Allergen(s) Allergy Type Date of Onset Reaction(s) Facility Latex (1 source) Latex Substance Allergy 4 rash [facility] NSAIDs (1 source) Ketorolac Drug Allergy 4 Swelling of Lip/Tongue/Thro at [facility] (20 sources) Latex; Translations: [LATEX] Propensity to adverse reactions 7 [facility] (1 source) DULoxetine Drug Allergy [facility] (1 source) Ketorolac Drug Allergy [facility] (1 source) natural latex rubber Drug allergy (disorder) [facility] (2 sources) NSAIDs; Translations: [NSAIDS (NON-STEROIDAL ANTI-INFLAMMATO RY DRUG)] Drug allergy (disorder) 9 [facility] (8 sources) Ketorolac; Translations: [KETOROLAC] Drug Allergy 9 Rash, Facial Swelling [facility] (1 source) Non-steroidal anti-inflammato ry agent Propensity to adverse reactions to drug 9 Swelling, Rash, Facial Swelling [facility] (7 sources) Latex Allergy to substance 3 Unknown [facility] Work Phone: (4 sources) Ketorolac Propensity to adverse reactions 9 Rash [facility] (4 sources) Non-steroidal anti-inflammato ry agent Drug Intolerance 9 Swelling, Rash [facility] (1 source) Ketorolac Drug Allergy 4 [facility] (1 source) Latex Drug allergy (disorder) 4 [facility] Medications Current Medications Medication Drug Class(es) Dates [...] 10/12/2018 Active cholecalciferol 0.05 mg oral capsule (18 sources) Vitamin D Start: 07-13-2023 take 2000 [IU] by mouth once daily Cholecalciferol (Vitamin D3) Active 2000 UNIT PO Daily July 13, 2023 12:00am cholecalciferol (Vitamin D-3) 50 MCG (1999 UT) capsule 1 capsule 1 (one) time [...] day for 30 day(s) Active epoetin anjana 74774 unt/ml injectable solution (1 source) Erythropoiesis-stimulat ing Agent Procrit 41122 UNIT/ML as directed Injection once a month [...] MG PO Daily August 01, 2023 10:47am Start: 01-02-2023 furosemide (La six) 40 MG [...] 05/22/2023 Active take 1 capsule by mo uth every eight hours Gabapentin 100 MG 1 capsule Orally THREE TIMES A DAY Active glucosamine sulfate 500 mg oral tablet (20 sources) Start: 07-13-2023 take 500 mg by mouth once daily Glucosamine Sulfate Active 500 MG PO Daily July 13, 2023 12:00am take 1 tablet by bi th every twenty-four hours Glucosamine 500 mg 1 tablet Orally Daily Active 10 ml iron sucrose 20 mg/ml injection (4 sources) Parenteral Iron Replacement Start: 08-21-2023 Iron Sucrose (Venofer) 200 mg iron/10 mL solution Active 200 MG IV Q3D August 21, 2023 12:00am administer over 30 mins lisinopril 5 mg oral tablet (20 sources) [...] succinate 50 mg extended release oral tablet (6 sources) beta-Adrenergic Raquel Start: take 50 mg by [...] tablet (20 sources) Proton Pump Inhibitor Start: 10-10-2023 End: 10-10-2023 take 1 tablet by mouth once daily Pantoprazole (Protonix) 40 mg tablet,delayed release (DR/EC) Active 40 MG PO Daily 90 90 October 10, 2023 1:20pm Start: 08-15-2023 End: 10-10-2023 take 1 tablet by mouth twice daily Pantoprazole (Protonix) 40 mg tablet,delayed release (DR/EC) Discontinued 40 MG PO Twice daily August 21, 2023 10:21am October 10, 2023 1:20pm Start: 07-13-2023 End: 08-15-2023 take 1 tablet [...] list cleanup) ubidecarenone 400 mg oral capsule (11 sources) Start: 07-13-2023 Coenzyme Q10 A ctive 400 MG PO Daily July 13, 2023 12:00am take 1 capsule by mo [facility] every twenty-four hours CoQ-10 400 MG 1 [...] Start: 12-28-2016 take 1 tablet by bi once daily amLODIPine (NORVASC) 10 mg tablet [...] 04/11/2023 Discontinued (Therapy completed) polyethylene glycol 3350 957463 mg / potassium chloride 2970 mg / sodium bicarbonate 6740 mg / sodium chloride 5860 mg / sodium sulfate 67110 mg powder for oral solution (1 source) Osmotic Laxative Start: 02-28-2023 End: 03-08-2023 polyethylene glycol (GOLYTELY) 236-22.74-6.74 -5.86 gram solution Indications: Iron deficiency anemia, unspecified iron deficiency anemia type , Stage 3 chronic kidney disease, unspecified whether stage 3a or 3b CKD ([facility]) Take 240 mL by mouth every 1 [...] Date Documented Date Episodic/Chronic Acute posthemorrhagic anemia (11 sources) Acute posthemorrhagic anemia; Translations: [Acute posthemorrhagic anemia] Onset: 08-15-2023 Episodic Anxiety disorders (2 sources) Generalized [...] 3 02-28-2023 Episodic Deficiency and other anemia (6 sources) Anemia; Translations: [Anemia, unspecified] 08-15-2023 Episodic Deficiency and other anemia (7 sources) Anemia, unspecified; Translations: [Anemia, unspecified] Onset: 4 08-15-2023 Episodic Deficiency and other anemia (2 sources) Iron deficiency anemia, unspecified; Translations: [Iron deficiency anemia, unspecified] Onset: 3 Episodic Diabetes mellitus with complications (20 sources) [...] 2 04-18-2023 Chronic Fluid and electrolyte disorders (20 sources) Hyperkalemia; Translations: [Hyperkalemia] Onset: 4 Episodic Gastritis and duodenitis (7 sources) Atrophic gastritis; Translations: [Chronic atrophic 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] Onset: 4 03-08-2023 Chronic Gastritis and duodenitis (11 sources) Acute hemorrhagic gastritis; Translations: [Gastritis, unspecified, with bleeding] Onset: 4 08-15-2023 Episodic Genitourinary symptoms and ill-defined conditions (20 sources) Proteinuria, unspecified; Translations: [Proteinuria] Onset: 1 [...] (1 source) Patient encounter status; Translations: [Other detention (current) drug therapy] 04-18-2023 Episodic Other and unspecified benign neoplasm (5 sources) Polyp of sigmoid colon; Translations: [Polyp of colon] Onset: 4 03-08-2023 Episodic Other diseases of kidney and ureters (17 sources) Secondary hyperparathyroidism; Translations: [Secondary hyperparathyroidism of renal origin] Chronic Other diseases of kidney and ureters (1 source) Kidney disease; Translations: [Disorder of kidney and ureter, unspecified] 08-14-2023 Episodic Other diseases of kidney and ureters (2 sources) Disorder of kidney and ureter, unspecified; Translations: [Unspecified disorder of kidney and ureter] Onset: 4 08-14-2023 Episodic Other gastrointestinal disorders (6 sources) Occult blood in stools; Translations: [Other fecal abnormalities] 08-14-2023 Episodic Other gastrointestinal disorders (7 sources) Other fecal abnormalities; Translations: [Nonspecific abnormal [...] Chronic Other nutritional; endocrine; and metabolic disorders (18 sources) Hyperuricemia without signs of inflammatory arthritis and tophaceous disease; Translations: [Other abnormal blood chemistry] Onset: 2 Episodic Other nutritional; endocrine; and metabolic disorders (7 sources) Hyperuricemia; Translations: [Hyperuricemia without signs of [...] Classification Problem Date Documented Da te Episodic/Chronic Mood disorders (1 source) Mood disorders Onset: 02-28-2023 02-28-2023 Other aftercare (2 sources) 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; Translations: [OTH HALFWAY CURRENT DRUG THERAPY] Onset: 11-01-2021 Episodic Other [...] Test Name Value Interpretation Reference Range Facility COMPLETE BLOOD COUNTon 09-17 Erythrocyte distribution width (RBC) [Ratio] 15.4 % [facility] Comment on above: Performed By: #### C BCA, BMP, LIVR, 06698-1, 3016-3, 01933-2 #### [facility] ([id number]) [address], [address] [place] [address] Hematocrit (Bld) [Volume fraction] 30.2 % [facility] Comment on above: Performed By: #### C BCA, BMP, LIVR, 93643-3, 3016-3, 26608-9 #### [facility] ([id number]) [address], [address] [place] [address] Hemoglobin (Bld) [Mass/Vol] 10.1 g/dL [facility] Comment on above: Performed By: #### C BCA, BMP, LIVR, 90125-3, 3016-3, 80706-6 #### [facility] ([id number]) [address], [address] [place] [address] MCH (RBC) [Entitic mass] 29.9 pg [facility] Comment on above: Performed By: #### C BCA, BMP, LIVR, 36477-6, 3016-3, 72394-4 #### [facility] ([id number]) [address], [address] [place] [address] MCHC (RBC) [Mass/Vol] 33.6 g/dL [place] Comment on above: Performed By: #### C BCA, BMP, LIVR, 47576-1, 3016-3, 37489-9 #### [facility] ([id number]) [address], [address] [place] [address] MCV (RBC) [Entitic vol] 89 fL [facility] Comment on above: Performed By: #### C BCA, BMP, LIVR, 14211-5, 3016-3, 78133-4 #### [facility] ([id number]) [address], [address] [place] [address] Platelet mean volume (Bld) [Entitic vol] 9.3 fL [facility] Comment on above: Performed By: #### C BCA, BMP, LIVR, 35220-5, 3016-3, 82821-6 #### [facility] ([id number]) [address], [address] [place] [address] Platelets (Bld) [#/Vol] 221 10*3/uL [facility] Comment on above: Performed By: #### C BCA, BMP, LIVR, 77965-4, 3016-3, 08971-9 #### [facility] ([id number]) [address], [address] [place] [address] RBC COUNT 3.39 X10E12/L Low 3.80-5.20 [facility] Comment on above: Performed By: #### C BCA, BMP, LIVR, 47650-1, 3016-3, 81724-8 #### [facility] ([id number]) [address], [address] [place] [address] WBC (Bld) [#/Vol] 5.6 10*3/uL [facility] Comment on above: Performed By: #### C BCA, BMP, LIVR, 27811-6, 3016-3, 80140-7 #### [facility] ([id number]) [address], [address] [place] [address] FERRITINon 09-18-2023 Ferritin [Mass/Vol] 352 ng/mL [facility] Comment on above: Performed By: #### C BCA, BMP, LIVR, 92483-6, 3016-3, 72082-8 #### [facility] ([id number]) [address], [address] [place] [address] IRON PROFILEon 09-18-2023 Iron [Mass/Vol] 77 ug/dL [facility] Comment on above: Performed By: #### C BCA, BMP, LIVR, 46484-7, 3016-3, 00531-8 #### [facility] ([id number]) [address], [address] [place] [address] IRON BINDING 246 ug/dL Low 250-425 [facility] Comment on above: Performed By: #### C BCA, BMP, LIVR, 52883-6, 3016-3, 63359-9 #### [facility] ([id number]) [address], [address] [place] [address] IRON SATURATION 31 % SATURATION Normal 15-50 [facility] Comment on above: Performed By: #### C BCA, BMP, LIVR, 57147-1, 3016-3, 95174-1 #### [facility] ([id number]) [address], [address] [place] [address] Laboratory - Hematology and Cell countson 09-18-2023 RBC (Bld) [#/Vol] 3.39 10*6/uL [facility] No Panel Informationon 09-17 Estimated GFR (Non- 40 mL/min Low [facility] Iron Saturation 31 [facility] Phosphorus Level 4.6 mg/dL [facility] Total Iron Binding Capacity 246 [facility] RENAL PANELon 09-18-2023 Albumin [Mass/Vol] 4.6 g/dL [facility] Comment on above: Performed By: #### C BCA, BMP, LIVR, 34318-1, 3016-3, 68351-1 #### [facility] ([id number]) [address], [address] [place] [address] Anion gap [Moles/Vol] 12 mmol/L Normal 5-15 [facility] Comment on above: Performed By: #### C BCA, BMP, LIVR, 27270-1, 3016-3, 23324-3 #### [facility] ([id number]) [address], [address] [place] [address] Calcium [Mass/Vol] 9.5 mg/dL [facility] Comment on above: Performed By: #### C BCA, BMP, LIVR, 75080-2, 3016-3, 55527-2 #### [facility] ([id number]) [address], [address] [place] [address] Chloride [Moles/Vol] 102 mmol/L [facility] Comment on above: Performed By: #### C BCA, BMP, LIVR, 57470-1, 3016-3, 20239-2 #### [facility] ([id number]) [address], [address] [place] [address] CO2 [Moles/Vol] 27 mmol/L [facility] Comment on above: Performed By: #### C BCA, BMP, LIVR, 11889-2, 3016-3, 89037-3 #### [facility] ([id number]) [address], [address] [place] [address] Creatinine [Mass/Vol] 1.37 mg/dL [facility] Comment on above: Result Comment: METH OD TRACEABLE TO IDMS STANDARD Performed By: #### C BCA, BMP, LIVR, 35647-4, 3016-3, 78294-3 #### [facility] ([id number]) [address], [facility] [address] [place] [address] GFR/1.73 sq M.predicted among non-blacks MDRD (S/P/Bld) [Vol rate/Area] 40 mL/min/{1.73_m2} Low >59 [facility] Comment on above: Result Comment: Reported eGFR is based on the CKD-EPI 2020 equation that does not use a race coefficient. Performed By: #### C BCA, BMP, LIVR, 43792-1, 3016-3, 26152-8 #### [facility] ([id number]) [address], [address] [place] [address] Glucose [Mass/Vol] 93 mg/dL [facility] Comment on above: Performed By: #### C BCA, BMP, LIVR, 96282-9, 3016-3, 56886-2 #### [facility] ([id number]) [address], [address] [place] [address] Phosphate [Mass/Vol] 4.6 mg/dL Normal 2.4-4.9 [facility] Comment on above: Performed By: #### C BCA, BMP, LIVR, 61785-8, 3016-3, 44239-4 #### [facility] ([id number]) [address], [address] [place] [address] Potassium [Moles/Vol] 4.8 mmol/L [place] Comment on above: Performed By: #### C BCA, BMP, LIVR, 40562-6, 3016-3, 17354-4 #### [facility] ([id number]) [address], [address] [place] [address] Sodium [Moles/Vol] 141 mmol/L [facility] Comment on above: Performed By: #### C BCA, BMP, LIVR, 61769-5, 3016-3, 21196-9 #### [facility] ([id number]) [address], [address] [place] [address] Urea nitrogen [Mass/Vol] 24 mg/dL [facility] Comment on above: Performed By: #### C BCA, BMP, LIVR, 21646-0, 3016-3, 79963-1 #### [facility] ([id number]) [address], [address] [place] [address] Automated basophil %Ordered By: Meagan Roman on 08-15-2023 Basophils/100 WBC (Bld) 0.8 % Normal . [facility] Comment on above: Performed By: #### C BC, TIBC, RADHA, [id number], FE, CMP #### [facility] [address] Automated basophil countOrde red By: Meagan Roman on 08-15-2023 Basophils (Bld) [#/Vol] 0.0 10*3/uL Normal 0.0-0.2 [facility] Comment on above: Result Comment: PERF ORMED BY: [place] [address] PATHOLOGIST MULE PACKER LATONIA BRAND M.D. Performed By: #### C BC, TIBC, RADHA, [id number], FE, CMP #### [address] Automated blood monocyte cou ntOrdered By: Meagan Jessie on 08-15-2023 Monocytes (Bld) [#/Vol] 0.5 10*3/uL Normal 0.0-0.8 [facility] Comment on above: Performed By: #### C BC, TIBC, RADHA, [id number], FE, CMP #### [address] Automated eosinophil %Ordere d By: Meagan Gregiene on 08-15-2023 Eosinophils/100 WBC (Bld) 5.1 % Normal . [facility] Comment on above: Performed By: #### C BC, TIBC, RADHA, [id number], FE, CMP #### [address] Automated eosinophil countOr dered By: Meagan Roman on 08-15-2023 Eosinophils (Bld) [#/Vol] 0.2 10*3/uL Normal 0.0-0.45 [facility] Comment on above: Performed By: #### C BC, TIBC, RADHA, [id number], FE, CMP #### [address] Automated monocyte %Ordered By: Meagan Roman on 08-15-2023 Monocytes/100 WBC (Bld) 9.7 % Normal . [facility] Comment on above: Performed By: #### C BC, TIBC, RADHA, [id number], FE, CMP #### [address] Automated neutrophil %Ordere d By: Meagan Janne on 08-15-2023 Neutrophils/100 WBC (Bld) 57.5 % Normal . [facility] Comment on above: Performed By: #### C BC, TIBC, RADHA, [id number], FE, CMP #### [address] Basic Metabolic Panelon 08-04 Creatinine Clr Calc Pharmacy 37.31 Normal [facility] Comment on above: Result Comment: PERF ORMED BY: [place] [address] PATHOLOGIST MULE PACKER LATONIA BRAND M.D. Performed By: #### C BC, TIBC, RADHA, [id number], FE, CMP #### [address] GFR/1.73 sq M.predicted MDRD (S/P/Bld) [Vol rate/Area] 43.688 mL/min/{1.73_m2} Normal [facility] Comment on above: Performed By: #### C BC, TIBC, RADHA, [id number], FE, CMP #### [address] Calcium [Mass/volume] in Ser um or PlasmaOrdered By: Meagan Roman on 08-15-2023 Calcium [Mass/Vol] 9.0 mg/dL Normal 8.6-10.3 [facility] Comment on above: Performed By: #### C BC, TIBC, RADHA, [id number], FE, CMP #### [address] Carbon dioxide, total [Moles /volume] in Serum or PlasmaOrdered By: Meagan Roman on 08-15-2023 CO2 [Moles/Vol] 25.5 mmol/L Normal 21.0-31.0 [facility] Comment on above: Performed By: #### C BC, TIBC, RADHA, [id number], FE, CMP #### [place] [address] [place] Chloride [Moles/volume] in S matthew or PlasmaOrdered By: Meagan Semaskiene on 08-15-2023 Chloride [Moles/Vol] 106 mmol/L Normal 98-107 [facility] Comment on above: Performed By: #### C BC, TIBC, RADHA, [id number], FE, CMP #### [address] Complete Blood Count Auto Di ffon 08-15-2023 Hematocrit (Bld) [Volume fraction] 26.1 % Low 34.0-46.4 [facility] Comment on above: Performed By: #### C BC, TIBC, RADHA, [id number], FE, CMP #### [address] Hemoglobin (Bld) [Mass/Vol] 8.8 g/dL Low 11.8-15.4 [facility] Comment on above: Performed By: #### C BC, TIBC, RADHA, [id number], FE, CMP #### [address] Mean Corpuscular HGB Conc 33.6 g/dL Normal 32.0-35.0 [facility] Comment on above: Performed By: #### C BC, TIBC, RADHA, [id number], FE, CMP #### [address] NRBC% 0.1 /100{WBC} Normal 0-0.5 [facility] Comment on above: Performed By: #### C BC, TIBC, RADHA, [id number], FE, CMP #### [address] Creatinine [Mass/volume] in Serum or PlasmaOrdered By: Meagan Roman on 08-15-2023 Creatinine [Mass/Vol] 1.28 mg/dL High 0.60-1.20 [place] Comment on above: Performed By: #### C BC, TIBC, RADHA, [id number], FE, CMP #### [address] Erythrocyte distribution wid th [Ratio] by Automated countOrdered By: Meagan Roman on 08-15-2023 Erythrocyte distribution width (RBC) [Ratio] 14.8 % Normal 11.9-15.3 [facility] Comment on above: Performed By: #### C BC, TIBC, RADHA, [id number], FE, CMP #### [facility] [address] Erythrocytes [#/volume] in B lood by Automated countOrdered By: Meagan Roman on 08-15-2023 RBC (Bld) [#/Vol] 2.97 10*6/uL Low 3.60-5.00 [facility] Comment on above: Performed By: #### C BC, TIBC, RADHA, [id number], FE, CMP #### [facility] [address] Glucose [Mass/volume] in Ser um or PlasmaOrdered By: Meagan Roman on 08-15-2023 Glucose [Mass/Vol] 98 mg/dL Normal 70-100 [facility] Comment on above: ADA recommended refe rence rangeRandom Glucose Reference Range is dependent on time and content of last meal. Glucose of more than 200 mg/dL in a nonstressed, ambulatory subject supports the diagnosis of Diabetes Mellitus. Result Comment: [place] om Glucose Reference Range is dependent on time and content of last meal. Glucose of more than 200 mg/dL in a nonstressed, ambulatory subject supports the diagnosis of Diabetes Mellitus. ADA recommended reference range Performed By: #### C BC, TIBC, RADHA, [id number], FE, CMP #### [address] Hematocrit [Volume Fraction] of Blood by Automated countOrdered By: Meagan Roman on 08-15-2023 Hematocrit (Bld) [Volume fraction] 27.3 % Low 34.0-46.4 [facility] Comment on above: Result Comment: PERF ORMED BY: [place] [address] PATHOLOGIST MULE PACKER LATONIA BRAND M.D. Performed By: #### H H #### [address] Hemoglobin [Mass/volume] in BloodOrdered By: Meagan Roman on 08-15-2023 Hemoglobin (Bld) [Mass/Vol] 9.1 g/dL Low 11.8-15.4 [facility] Comment on above: Performed By: #### H H #### [facility] [address] Aroldo 08-15-2023 L Specimen: [id number] Received: 08/15/23 Status: EMILY Pittman Num: [id number] Spec Type: Surgical Subm Dr: Kuldeep Almazan MD Tissues: A GASTRIC FOR HP (GASTRIC HP) Procedures: HE/2, Gross/Micro L4, H PYLORI, IHC First AB Age/ Patient Sex Location Account Attending Physician Malgorzata Reyes 77/F 3T [id number] Meagan Roman MD SPEC NUM: [id number] RECD: 08/15/23 STATUS: EMILY PITTMAN NUM: [id number] ALEXUS: 08/15/23 DR: Kuldeep Almazan MD ENTERED: 08/15/23-[address]: SPEC TYPE: Surgical DEPT: S ORDERED: HE/2, Gross/Micro L4, H PYLORI, IHC First AB ORDERED: HE/2, Gross/Micro L4, H PYLORI, IHC First AB Pathological Diagnosis Stomach, Biopsy: Reactive/ Chemical Gastropathy. - H. Pylori Immunostain Is Negative For H. Pylori Organisms. Clinical Information Low hemoglobin. Rule out H. pylori. Gross Description Received in formalin, labeled with the patient's name, date of and gastric BX are 2 palacio mucosal tissue fragments each measuring 0.2 x 0.2 x 0.1 cm, entirely submitted in A1. CPT Codes 83553 [id number] -- -- Specimen: [id number] Received: 08/15/23 Status: EMILY Pittman Num: [id number] Spec Type: Surgical Subm Dr: Kuldeep Almazan MD Tissues: A GASTRIC FOR HP (GASTRIC HP) Procedures: HE/2, Gross/Micro L4, H PYLORI, IHC First AB -- Patient: Malgorzata Reyse [id number] (Continued) -- Signed (signatu re on file) Riya Blanco MD 08/16/23 1618 Normal [facility] Leukocytes [#/volume] correc azul for nucleated erythrocytes in Blood by Automated counOrdered By: Meagan Roman on 08-15-2023 WBC corrected for nucl RBC Auto (Bld) [#/Vol] 4.9 10*3/uL 3.8-11.6 [facility] Leukocytes [#/volume] in Blo od by Automated countOrdered By: Meagan Roman on 08-15-2023 WBC (Bld) [#/Vol] 4.9 10*3/uL Normal 3.8-11.6 [facility] Comment on above: Performed By: #### C BC, TIBC, RADHA, [id number], FE, CMP #### [address] Lymphocytes [#/volume] in Bl ood by Automated countOrdered By: Meagna Roman on 08-15-2023 Lymphocytes (Bld) [#/Vol] 1.3 10*3/uL Normal 1.00-4.8 [facility] Comment on above: Performed By: #### C BC, TIBC, RADHA, [id number], FE, CMP #### [address] Lymphocytes/100 leukocytes i n Blood by Automated countOrdered By: Meagan Roman on 08-15-2023 Lymphocytes/100 WBC (Bld) 26.9 % Normal . [facility] Comment on above: Performed By: #### C BC, TIBC, RADHA, [id number], FE, CMP #### [address] MCH [Entitic mass] by Automa azul countOrdered By: Meagan Roman on 08-15-2023 MCH (RBC) [Entitic mass] 29.5 pg Normal 24.7-34.3 [facility] Comment on above: Performed By: #### C BC, TIBC, RADHA, [id number], FE, CMP #### [address] MCHC Auto (RBC) [Mass/Vol]Or dered By: Meagan Roman on 08-15-2023 MCHC (RBC) [Mass/Vol] 33.6 g/dL 32.0-35.0 [place] MCV [Entitic volume] by Auto mated countOrdered By: Meagan Roman on 08-15-2023 MCV (RBC) [Entitic vol] 87.6 fL Normal 80-100 [facility] Comment on above: Performed By: #### C BC, TIBC, RADHA, [id number], FE, CMP #### [address] Neutrophils [#/volume] in Bl ood by Automated countOrdered By: Meagan Roman on 08-15-2023 Neutrophils (Bld) [#/Vol] 2.8 10*3/uL Normal 1.8-7.7 [facility] Comment on above: Performed By: #### C BC, TIBC, RADHA, [id number], FE, CMP #### [facility] [address] No Panel InformationOrdered By: Meagan Roman on 08-15-2023 Estimated GFR (CKD-EPI) 43.688 mL/Min [facility] Creatinine Clearance (Chem 37.31 [facility] Nucleated erythrocytes [Pres ence] in Blood by Automated countOrdered By: Meagan Roman on 08-15-2023 Nucleated RBC Auto Ql (Bld) 0.1 /100{WBC} 0-0.5 [facility] Platelet mean volume [Entiti c volume] in Blood by Automated countOrdered By: Meagan Roman on 08-15-2023 Platelet mean volume (Bld) [Entitic vol] 8.3 fL Normal 6.3-10.7 [facility] Comment on above: Performed By: #### C BC, TIBC, RADHA, [id number], FE, CMP #### [facility] [address] Platelets [#/volume] in Bloo d by Automated countOrdered By: Meagan Roman on 08-15-2023 Platelets (Bld) [#/Vol] 273 10*3/uL Normal 150-450 [facility] Comment on above: Performed By: #### C BC, TIBC, RADHA, [id number], FE, CMP #### [facility] [address] Potassium [Moles/volume] in Serum or PlasmaOrdered By: Meagan Roman on 08-15-2023 Potassium [Moles/Vol] 5.0 mmol/L Normal 3.5-5.1 [place] Comment on above: Performed By: #### C BC, TIBC, RADHA, [id number], FE, CMP #### [facility] [address] [place] [address] Serum or plasma anion gap de terminationOrdered By: Meagan Roman on 08-15-2023 Anion gap [Moles/Vol] 12.5 mmol/L Normal 6.0-15.0 [facility] Comment on above: Performed By: #### C BC, TIBC, RADHA, [id number], FE, CMP #### [facility] [address] [place] [address] Sodium [Moles/volume] in Ser um or PlasmaOrdered By: Meagan Roman on 08-15-2023 Sodium [Moles/Vol] 139 mmol/L Significant change down 136-145 [facility] Comment on above: Delta: 131 on Performed By: #### C BC, TIBC, RADHA, [id number], FE, CMP #### [facility] [address] [place] [address] Urea nitrogen [Mass/volume] in Serum or PlasmaOrdered By: Meagan Roman on 08-15-2023 Urea nitrogen [Mass/Vol] 27 mg/dL High 09-27 [facility] Comment on above: Performed By: #### C BC, TIBC, RADHA, [id number], FE, CMP #### [facility] [address] [place] [address] ABO/Rh Retypeon 08-14-2023 ABO/RH Recheck Result Negative Normal [facility] Comment on above: Result Comment: PERF ORMED BY: [place] [address] PATHOLOGIST MULE PACKER LATONIA BRAND M.D. Alanine aminotransferase [En zymatic activity/volume] in Serum or PlasmaOrdered By: Liliana Kaba on 08-14-2023 ALT [Catalytic activity/Vol] 6 U/L Low 7 [facility] Comment on above: Performed By: #### C BC, TIBC, RADHA, [id number], FE, CMP #### [address] Albumin [Mass/volume] in Ser um or Plasma by Bromocresol green (BCG) dye binding methoOrdered By: Liliana Kaba on 08-14-2023 Albumin BCG dye [Mass/Vol] 4.5 g/dL 3.5-5.7 [facility] Alkaline phosphatase [Enzyma tic activity/volume] in Serum or PlasmaOrdered By: Liliana Kaba on 08-14-2023 ALP [Catalytic activity/Vol] 55 U/L Normal 34-104 [facility] Comment on above: Performed By: #### C BC, TIBC, RADHA, [id number], FE, CMP #### [address] Aspartate aminotransferase [ Enzymatic activity/volume] in Serum or PlasmaOrdered By: Liliana Kaba on 08-14-2023 AST [Catalytic activity/Vol] 12 U/L Low 13-39 [facility] Comment on above: Performed By: #### C BC, TIBC, RADHA, [id number], FE, CMP #### [address] Automated basophil %Ordered By: PROVIDER TEMP on 08-14-2023 Basophils/100 WBC (Bld) 0.7 % Normal . [facility] Comment on above: Performed By: #### C BC, TIBC, RADHA, [id number], FE, CMP #### [address] Automated basophil countOrde red By: PROVIDER TEMP on 08-14-2023 Basophils (Bld) [#/Vol] 0.1 10*3/uL Normal 0.0-0.2 [facility] Comment on above: Result Comment: PERF ORMED BY: [place] [address] PATHOLOGIST MULE PACKER LATONIA BRAND M.D. Performed By: #### C BC, TIBC, RADHA, [id number], FE, CMP #### [address] Automated blood monocyte cou ntOrdered By: PROVIDER TEMP on 08-14-2023 Monocytes (Bld) [#/Vol] 0.5 10*3/uL Normal 0.0-0.8 [facility] Comment on above: Performed By: #### C BC, TIBC, RADHA, [id number], FE, CMP #### [facility] [address] Automated eosinophil %Ordere d By: PROVIDER TEMP on 08-14-2023 Eosinophils/100 WBC (Bld) 3.3 % Normal . [facility] Comment on above: Performed By: #### C BC, TIBC, RADHA, [id number], FE, CMP #### [facility] [address] Automated eosinophil countOr dered By: PROVIDER TEMP on 08-14-2023 Eosinophils (Bld) [#/Vol] 0.3 10*3/uL Normal 0.0-0.45 [facility] Comment on above: Performed By: #### C BC, TIBC, RADHA, [id number], FE, CMP #### [facility] [address] Automated monocyte %Ordered By: PROVIDER TEMP on 08-14-2023 Monocytes/100 WBC (Bld) 6.8 % Normal . [facility] Comment on above: Performed By: #### C BC, TIBC, RADHA, [id number], FE, CMP #### [facility] [address] Automated neutrophil %Ordere d By: PROVIDER TEMP on 08-14-2023 Neutrophils/100 WBC (Bld) 70.0 % Normal . [facility] Comment on above: Performed By: #### C BC, TIBC, RADHA, [id number], FE, CMP #### [facility] [address] Bilirubin.total [Mass/volume ] in Serum or PlasmaOrdered By: Liliana Kaba on 08-14-2023 Bilirubin [Mass/Vol] 0.3 mg/dL Normal 0.3-1.0 [facility] Comment on above: Performed By: #### C BC, TIBC, RADHA, [id number], FE, CMP #### [address] Calcium [Mass/volume] in Ser um or PlasmaOrdered By: PROVIDER TEMP on 08-14-2023 Calcium [Mass/Vol] 8.7 mg/dL Normal 8.6-10.3 [facility] Comment on above: Performed By: #### C BC, TIBC, RADHA, [id number], FE, CMP #### [address] Carbon dioxide, total [Moles /volume] in Serum or PlasmaOrdered By: PROVIDER TEMP on 08-14-2023 CO2 [Moles/Vol] 23.7 mmol/L Normal 21.0-31.0 [facility] Comment on above: Performed By: #### C BC, TIBC, RADHA, [id number], FE, CMP #### [address] Chloride [Moles/volume] in S matthew or PlasmaOrdered By: PROVIDER TEMP on 08-14-2023 Chloride [Moles/Vol] 100 mmol/L Normal 98-107 [facility] Comment on above: Performed By: #### C BC, TIBC, RADHA, [id number], FE, CMP #### [address] Complete Blood Count Auto Di ffon 08-14-2023 Mean Corpuscular HGB Conc 33.6 g/dL Normal 32.0-35.0 [facility] Comment on above: Performed By: #### C BC, TIBC, RADHA, [id number], FE, CMP #### [address] Monocytes/100 WBC (Bld) 15.64 % Normal 0.00-20.00 [facility] Comment on above: Performed By: #### C BC, TIBC, RADHA, [id number], FE, CMP #### [address] NRBC% 0.1 /100{WBC} Normal 0-0.5 [facility] Comment on above: Performed By: #### C BC, TIBC, RADHA, [id number], FE, CMP #### [facility] [address] Comprehensive Metabolic Pane aroldo 08-14-2023 Albumin [Mass/Vol] 4.5 g/dL Normal 3.5-5.7 [facility] Comment on above: Performed By: #### C BC, TIBC, RADHA, [id number], FE, CMP #### [address] Creatinine Clr Calc Pharmacy 33.40 Normal [facility] Comment on above: Result Comment: PERF ORMED BY: [address] [place] [address] PATHOLOGIST MULE PACKER LATONIA BRAND M.D. Performed By: #### C BC, TIBC, RADHA, [id number], FE, CMP #### [address] GFR/1.73 sq M.predicted MDRD (S/P/Bld) [Vol rate/Area] 38.248 mL/min/{1.73_m2} Normal [facility] Comment on above: Performed By: #### C BC, TIBC, RADHA, [id number], FE, CMP #### [address] Creatinine [Mass/volume] in Serum or PlasmaOrdered By: PROVIDER TEMP on 08-14-2023 Creatinine [Mass/Vol] 1.43 mg/dL High 0.60-1.20 [place] Comment on above: Performed By: #### C BC, TIBC, RADHA, [id number], FE, CMP #### [address] ECG 12 lead ECGon 08-14-2023 ECG 12 lead ECG [facility] [place] [address] [place] [address] Electrocardiograph Report Signed Patient: Malgorzata Reyes MR#: [id number] : 1945 Acct:[id number] Age/Sex: 77 / F ADM Date: 08/14/23 Loc: Room: [address] [place] [address] Type: ADM INOo Attending Dr: Meagan Roman [...] ECGs available Confirmed by LILIANA KABA DO ([id number]) on 08/15/2023 1:51:01 AM Referred By: Electronically Signed By:LILIANA KABA DO Transcribed By: MUS Signed By Liliana Kaba DO 08/14 0151 Normal [facility] Erythrocyte distribution wid th Auto (RBC) [Ratio]on 08-14-2023 Erythrocyte distribution width (RBC) [Ratio] 14.0 % 11.0-15.0 [facility] Erythrocyte distribution wid th [Ratio] by Automated countOrdered By: PROVIDER TEMP on 08-14-2023 Erythrocyte distribution width (RBC) [Ratio] 14.6 % Normal 11.9-15.3 [facility] Comment on above: Performed By: #### C BC, TIBC, RADHA, [id number], FE, CMP #### [place] [address] [place] Erythrocytes [#/volume] in B lood by Automated countOrdered By: PROVIDER TEMP on 08-14-2023 RBC (Bld) [#/Vol] 2.57 10*6/uL Low 3.60-5.00 [facility] Comment on above: Performed By: #### C BC, TIBC, RADHA, [id number], FE, CMP #### [facility] [address] Estimated glomerular filtrat ion rate (GFR) non- Americanon 08-14-2023 GFR/1.73 sq M.predicted among non-blacks MDRD (S/P/Bld) [Vol rate/Area] 35 mL/min/{1.73_m2} Low >=60 [facility] Fecal occult blood detection by immunochemistryOrdered By: Liliana Kaba on 08-14-2023 Hemoglobin.gastrointestin al Ql (Stl) [facility] Ferritin [Mass/volume] in Se rum or PlasmaOrdered By: Liliana Kaba on 08-14-2023 Ferritin [Mass/Vol] 116.6 ng/mL Normal 11.0-306.8 [facility] Comment on above: Performed By: #### C BC, TIBC, RADHA, [id number], FE, CMP #### [facility] [address] Folate [Mass/volume] in Seru m or PlasmaOrdered By: Liliana Kaba on 08-14-2023 Folate [Mass/Vol] 27.0 ng/mL >5.9 [facility] Comment on above: Folate reference ran ge: >5.9 ng/mlThe WHO technical consultation on folate and vitamin [id number] has determined that folate concentrations lessthan 4 ng/ml are considered deficient. Glucose [Mass/volume] in Ser um or PlasmaOrdered By: PROVIDER TEMP on 08-14-2023 Glucose [Mass/Vol] 94 mg/dL Normal 70-100 [facility] Comment on above: ADA recommended refe rence rangeRandom Glucose Reference Range is dependent on time and content of last meal. Glucose of more than 200 mg/dL in a nonstressed, ambulatory subject supports the diagnosis of Diabetes Mellitus. Result Comment: [place] om Glucose Reference Range is dependent on time and content of last meal. Glucose of more than 200 mg/dL in a nonstressed, ambulatory subject supports the diagnosis of Diabetes Mellitus. ADA recommended reference range Performed By: #### C BC, TIBC, RADHA, [id number], FE, CMP #### [facility] [address] [place] [address] [place] Hematocrit Auto (Bld) [Volum e fraction]on 08-14-2023 Hematocrit (Bld) [Volume fraction] 23.4 % Low 36.0-48.0 [facility] Comment on above: RESULTS CALLED TO [facility] Hematocrit [Volume Fraction] of Blood by Automated countOrdered By: PROVIDER TEMP on 08-14-2023 Hematocrit (Bld) [Volume fraction] 22.9 % Low 34.0-46.4 [facility] Comment on above: Performed By: #### C BC, TIBC, RADHA, [id number], FE, CMP #### [facility] [address] Hemoglobin [Mass/volume] in BloodOrdered By: PROVIDER TEMP on 08-14-2023 Hemoglobin (Bld) [Mass/Vol] 7.7 g/dL Low 11.8-15.4 [facility] Comment on above: Performed By: #### C BC, TIBC, RADHA, [id number], FE, CMP #### [facility] [address] Hemoglobin [Mass/volume] in Bloodon 08-14-2023 Hemoglobin (Bld) [Mass/Vol] 7.2 g/dL Low 12.0-16.0 [facility] Iron [Mass/volume] in Serum or PlasmaOrdered By: Liliana Kaba on 08-14-2023 Iron [Mass/Vol] 29 ug/dL Low 50-212 [facility] Comment on above: Performed By: #### C BC, TIBC, RADHA, [id number], FE, CMP #### [facility] [address] Iron binding capacity [Mass/ volume] in Serum or PlasmaOrdered By: Liliana Kaba on 08-14-2023 Iron binding capacity [Mass/Vol] 272 ug/dL 255-450 [facility] Iron binding capacity [Mass/ volume] in Serum or Plasmaon 08-14-2023 Iron binding capacity [Mass/Vol] 241.0 ug/dL Low 250.0-450.0 [facility] Iron saturation [Mass Fracti on] in Serum or Plasmaon 08-14-2023 Iron saturation [Mass fraction] 13.3 % [facility] - Chemistry and C hemistry - challengeon 08-14-2023 Albumin [Mass/Vol] 3.6 g/dL 3.4-5.0 [facility] Calcium [Mass/Vol] 8.4 mg/dL Low 8.5-10.1 [facility] Chloride [Moles/Vol] 101 mmol/L 98-107 [facility] CO2 [Moles/Vol] 23.8 mmol/L 21.0-32.0 [facility] Creatinine [Mass/Vol] 1.47 mg/dL High 0.55-1.02 [place] Ferritin [Mass/Vol] 154.0 ng/mL 8.0-252.0 [facility] GFR/1.73 sq M.predicted MDRD (S/P/Bld) [Vol rate/Area] 42 mL/min/{1.73_m2} Low >=60 [facility] Glucose [Mass/Vol] 98 mg/dL 74-106 [facility] Iron [Mass/Vol] 32.0 ug/dL Low 50.0-170.0 [facility] Potassium [Moles/Vol] 5.3 mmol/L High 3.5-5.1 [place] Sodium [Moles/Vol] 134 mmol/L Low 136-145 [facility] Urea nitrogen [Mass/Vol] 30.0 mg/dL High 7.0-18.0 [facility] Urea nitrogen/Creatinine [Mass ratio] 20.4 mg/mg [facility] LeukoReduced RBCon LeukoReduced RBC TRANSFUSED 08/14/23 2303 Normal [facility] Leukocytes [#/volume] correc azul for nucleated erythrocytes in Blood by Automated counOrdered By: PROVIDER TEMP on 08-14-2023 WBC corrected for nucl RBC Auto (Bld) [#/Vol] 7.7 10*3/uL 3.8-11.6 [facility] Leukocytes [#/volume] correc azul for nucleated erythrocytes in Blood by Automated counon 08-14-2023 WBC corrected for nucl RBC Auto (Bld) [#/Vol] 6.0 10 3/uL 4.0-11.0 [facility] Leukocytes [#/volume] in Blo od by Automated countOrdered By: PROVIDER TEMP on 08-14-2023 WBC (Bld) [#/Vol] 7.7 10*3/uL Normal 3.8-11.6 [facility] Comment on above: Performed By: #### C BC, TIBC, RADHA, [id number], FE, CMP #### [address] Lymphocytes [#/volume] in Bl ood by Automated countOrdered By: PROVIDER TEMP on 08-14-2023 Lymphocytes (Bld) [#/Vol] 1.5 10*3/uL Normal 1.00-4.8 [facility] Comment on above: Performed By: #### C BC, TIBC, RADHA, [id number], FE, CMP #### [address] Lymphocytes/100 leukocytes i n Blood by Automated countOrdered By: PROVIDER TEMP on 08-14-2023 Lymphocytes/100 WBC (Bld) 19.2 % Normal . [facility] Comment on above: Performed By: #### C BC, TIBC, RADHA, [id number], FE, CMP #### [facility] [address] [place] [address] MCH Auto (RBC) [Entitic mass ]on 08-14-2023 MCH (RBC) [Entitic mass] 28.9 pg 26.7-34.0 [facility] MCH [Entitic mass] by Automa azul countOrdered By: PROVIDER TEMP on 08-14-2023 MCH (RBC) [Entitic mass] 29.9 pg Normal 24.7-34.3 [facility] Comment on above: Performed By: #### C BC, TIBC, RADHA, [id number], FE, CMP #### [address] MCHC Auto (RBC) [Mass/Vol]Or dered By: PROVIDER TEMP on 08-14-2023 MCHC (RBC) [Mass/Vol] 33.6 g/dL 32.0-35.0 [place] MCHC Auto (RBC) [Mass/Vol]on 08-14-2023 MCHC (RBC) [Mass/Vol] 30.8 g/dL 29.9-35.2 [place] MCV Auto (RBC) [Entitic vol] on 08-14-2023 MCV (RBC) [Entitic vol] 94.0 fL 81.0-99.0 [facility] MCV [Entitic volume] by Auto mated countOrdered By: PROVIDER TEMP on 08-14-2023 MCV (RBC) [Entitic vol] 89.1 fL Normal 80-100 [facility] Comment on above: Performed By: #### C BC, TIBC, RADHA, [id number], FE, CMP #### [facility] [address] Monocyte distribution width [Entitic volume] in Blood by AutomatedOrdered By: PROVIDER TEMP on 08-14-2023 Monocyte distribution width Auto (Bld) [Entitic vol] 15.64 % 0.00-20.00 [facility] Neutrophils [#/volume] in Bl ood by Automated countOrdered By: PROVIDER TEMP on 08-14-2023 Neutrophils (Bld) [#/Vol] 5.4 10*3/uL Normal 1.8-7.7 [facility] Comment on above: Performed By: #### C BC, TIBC, RADHA, [id number], FE, CMP #### [facility] [address] No Panel InformationOrdered By: PROVIDER TEMP on 08-14-2023 Estimated GFR (CKD-EPI) 38.248 mL/Min [facility] Creatinine Clearance (Chem 33.40 [facility] No Panel Informationon 08-13 Phosphorus Level 4.3 mg/dL 2.6-4.7 [facility] Nucleated erythrocytes [Pres ence] in Blood by Automated countOrdered By: PROVIDER TEMP on 08-14-2023 Nucleated RBC Auto Ql (Bld) 0.1 /100{WBC} 0-0.5 [facility] Platelet mean volume Auto (B ld) [Entitic vol]on 08-14-2023 Platelet mean volume (Bld) [Entitic vol] 10.0 fL 9.5-13.5 [facility] Platelet mean volume [Entiti c volume] in Blood by Automated countOrdered By: PROVIDER TEMP on 08-14-2023 Platelet mean volume (Bld) [Entitic vol] 8.3 fL Normal 6.3-10.7 [facility] Comment on above: Performed By: #### C BC, TIBC, RADHA, [id number], FE, CMP #### [facility] [address] [place] [address] [place] Platelets Auto (Bld) [#/Vol] on 08-14-2023 Platelets (Bld) [#/Vol] 290 10 3/uL 150-450 [facility] Platelets [#/volume] in Bloo d by Automated countOrdered By: PROVIDER TEMP on 08-14-2023 Platelets (Bld) [#/Vol] 291 10*3/uL Normal 150-450 [facility] Comment on above: Performed By: #### C BC, TIBC, RADHA, [id number], FE, CMP #### [facility] [address] [place] [address] [place] Potassium [Moles/volume] in Serum or PlasmaOrdered By: PROVIDER TEMP on 08-14-2023 Potassium [Moles/Vol] 5.1 mmol/L Normal 3.5-5.1 [place] Comment on above: Performed By: #### C BC, TIBC, RADHA, [id number], FE, CMP #### [facility] [address] [place] [address] [place] Protein [Mass/volume] in Ser um or PlasmaOrdered By: Liliana Kaba on 08-14-2023 Protein [Mass/Vol] 7.2 g/dL Normal 6.4-8.9 [facility] Comment on above: Performed By: #### C BC, TIBC, RADHA, [id number], FE, CMP #### [facility] [address] [place] [address] RBC Auto (Bld) [#/Vol]on RBC (Bld) [#/Vol] 2.49 10 6/uL Low 4.20-5.40 [facility] Serum globulin measurement b y calculation (mass/volume)Ordered By: Liliana Kaba on 08-14-2023 Globulin (S) [Mass/Vol] 2.7 g/dL Normal [facility] Comment on above: Performed By: #### C BC, TIBC, RADHA, [id number], FE, CMP #### [address] Serum or plasma albumin/glob ulin mass ratioOrdered By: Liliana Kaba on 08-14-2023 Albumin/Globulin [Mass ratio] 1.7 {ratio} Normal [facility] Comment on above: Performed By: #### C BC, TIBC, RADHA, [id number], FE, CMP #### [address] Serum or plasma anion gap de terminationOrdered By: PROVIDER TEMP on 08-14-2023 Anion gap [Moles/Vol] 12.4 mmol/L Normal 6.0-15.0 [facility] Comment on above: Performed By: #### C BC, TIBC, RADHA, [id number], FE, CMP #### [facility] [address] [place] [address] Serum or plasma anion gap de terminationon 08-14-2023 Anion gap [Moles/Vol] 14.5 mmol/L [facility] Sodium [Moles/volume] in Ser um or PlasmaOrdered By: PROVIDER TEMP on 08-14-2023 Sodium [Moles/Vol] 131 mmol/L Low 136-145 [facility] Comment on above: Performed By: #### C BC, TIBC, RADHA, [id number], FE, CMP #### [address] Stool Occult Blood (Guaiac)o n 08-14-2023 Stool Occult Blood (Guaiac) Occult Blood Positive for Occult Blood by Guaiac Methodology Reference range = Negative PERFORMED BY: [address] [place] [address] PATHOLOGIST MULE PACKER LATONIA BRAND M.D. Normal [facility] Comment on above: Performed By: #### O B(GUAIAC) #### [address] Total Iron Binding Capacityo n 08-14-2023 Total Iron Binding Capacity 272 ug/dL Normal 255-450 [facility] Comment on above: Performed By: #### C BC, TIBC, RADHA, [id number], FE, CMP #### [place] [address] [place] Transferrin [Mass/volume] in Serum or PlasmaOrdered By: Liliana Kaba on 08-14-2023 Transferrin [Mass/Vol] 194 mg/dL Low 203-362 [facility] Comment on above: Performed By: #### C BC, TIBC, RADHA, [id number], FE, CMP #### [facility] [address] [place] [address] Type and Screenon 08-14-2023 ABO and Rh group Nom (Bld) Blood group A Rh(D) negative Normal [facility] Comment on above: Order Comment: Trans fuse now? Y Number of units to transfuse now? 1 Result Comment: PERF ORMED BY: [address] [place] [address] PATHOLOGIST MULE PACKER LATONIA BRAND M.D. Urea nitrogen [Mass/volume] in Serum or PlasmaOrdered By: MONSTER MCBRIDE on 08-14-2023 Urea nitrogen [Mass/Vol] 31 mg/dL High 7-25 [facility] Comment on above: Performed By: #### C BC, TIBC, RADHA, [id number], FE, CMP #### [facility] [address] [place] [address] Vit. B12/Folate Profileon Folate 27.0 ng/mL Normal >5.9 [facility] Comment on above: Result Comment: Audra te reference range: >5.9 ng/ml The WHO technical consultation on folate and vitamin b12 deficiencies has determined that folate concentrations less than 4 ng/ml are considered deficient. PERFORMED BY: [place] [address] PATHOLOGIST MULE PACKER LATONIA BRAND M.D. Performed By: #### C BC, TIBC, RADHA, [id number], FE, CMP #### [address] Vitamin B12 ser/plasOrdered By: Liliana Kaba on 08-14-2023 Cobalamin (Vitamin B12) [Mass/Vol] 457 pg/mL Normal 180-914 [facility] Comment on above: Performed By: #### C BC, TIBC, RADHA, [id number], FE, CMP #### [address] BASIC METABOLIC PANLon 07-19 Anion gap [Moles/Vol] 10 mmol/L Normal 5-15 [facility] Comment on above: Performed By: #### C BCA, BMP, LIVR, 91505-2, 3016-3, 94079-8 #### [facility] ([id number]) [address], [address] [place] [address] Calcium [Mass/Vol] 9.3 mg/dL Normal 8.5-10.5 [facility] Comment on above: Performed By: #### C BCA, BMP, LIVR, 36176-0, 3016-3, 80879-3 #### [facility] ([id number]) [address], [address] [place] [address] Chloride [Moles/Vol] 107 mmol/L Normal 98-109 [facility] Comment on above: Performed By: #### C BCA, BMP, LIVR, 83658-6, 3016-3, 71256-5 #### [facility] ([id number]) [address], [address] [place] [address] CO2 [Moles/Vol] 22 mmol/L Normal 22-32 [facility] Comment on above: Performed By: #### C BCA, BMP, LIVR, 64085-6, 3016-3, 55987-3 #### [facility] ([id number]) [address], [address] [place] [address] Creatinine [Mass/Vol] 1.38 mg/dL High 0.40-1.00 [facility] Comment on above: Result Comment: METH OD TRACEABLE TO IDMS STANDARD Performed By: #### C BCA, BMP, LIVR, 00151-1, 3016-3, 63763-8 #### [facility] ([id number]) [address], [address] [place] [address] GFR/1.73 sq M.predicted among non-blacks MDRD (S/P/Bld) [Vol rate/Area] 40 mL/min/{1.73_m2} Low >59 [facility] Comment on above: Result Comment: Reported eGFR is based on the CKD-EPI 2020 equation that does not use a race coefficient. Performed By: #### C BCA, BMP, LIVR, 03995-1, 3016-3, 83761-0 #### [facility] ([id number]) [address], [address] [place] [address] Glucose [Mass/Vol] 144 mg/dL High 65-99 [facility] Comment on above: Performed By: #### C BCA, BMP, LIVR, 46494-2, 3016-3, 64446-3 #### [facility] ([id number]) [address], [address] [place] [address] Potassium [Moles/Vol] 5.3 mmol/L High 3.5-5.0 [facility] Comment on above: Performed By: #### C BCA, BMP, LIVR, 43715-9, 3016-3, 54596-4 #### [facility] ([id number]) [address], [address] [place] [address] Sodium [Moles/Vol] 139 mmol/L Normal 134-146 [facility] Comment on above: Performed By: #### C BCA, BMP, LIVR, 82837-2, 3016-3, 17711-1 #### [facility] ([id number]) [address], [address] [place] [address] Urea nitrogen [Mass/Vol] 22 mg/dL Normal 5-27 [facility] Comment on above: Performed By: #### C BCA, BMP, LIVR, 13857-8, 3016-3, 11032-2 #### [facility] ([id number]) [address], [address] [place] [address] BASIC METABOLIC PANLon 07-18 Anion gap [Moles/Vol] 10 mmol/L Normal 5-15 [facility] Comment on above: Performed By: #### C BCA, BMP, LIVR, 98209-7, 3016-3, 22655-5 #### [facility] ([id number]) [address], [address] [place] [address] Calcium [Mass/Vol] 9.0 mg/dL Normal 8.5-10.5 [facility] Comment on above: Performed By: #### C BCA, BMP, LIVR, 20523-6, 3016-3, 17638-4 #### [facility] ([id number]) [address], [address] [place] [address] Chloride [Moles/Vol] 108 mmol/L Normal 98-109 [facility] Comment on above: Performed By: #### C BCA, BMP, LIVR, 74339-0, 3016-3, 82374-5 #### [facility] ([id number]) [address], [address] [place] [address] CO2 [Moles/Vol] 23 mmol/L Normal 22-32 [facility] Comment on above: Performed By: #### C BCA, BMP, LIVR, 32232-1, 3016-3, 59196-8 #### [facility] ([id number]) [address], [address] [place] [address] Creatinine [Mass/Vol] 1.60 mg/dL High 0.40-1.00 [facility] Comment on above: Result Comment: METH OD TRACEABLE TO IDMS STANDARD Performed By: #### C BCA, BMP, LIVR, 39901-1, 3016-3, 82881-6 #### [facility] ([id number]) [address] [address] GFR/1.73 sq M.predicted among non-blacks MDRD (S/P/Bld) [Vol rate/Area] 33 mL/min/{1.73_m2} Low >59 [facility] Comment on above: Result Comment: Reported eGFR is based on the CKD-EPI 2020 equation that does not use a race coefficient. Performed By: #### C BCA, BMP, LIVR, 62710-6, 3016-3, 03600-5 #### [facility] ([id number]) [address], [address] [place] [address] Glucose [Mass/Vol] 135 mg/dL High 65-99 [facility] Comment on above: Performed By: #### C BCA, BMP, LIVR, 40203-4, 3016-3, 01154-2 #### [facility] ([id number]) [address], [address] [place] [address] Potassium [Moles/Vol] 4.8 mmol/L Normal 3.5-5.0 [facility] Comment on above: Performed By: #### C BCA, BMP, LIVR, 01455-2, 3016-3, 38456-8 #### [facility] ([id number]) [address], [address] [place] [address] Sodium [Moles/Vol] 141 mmol/L Normal 134-146 [facility] Comment on above: Performed By: #### C BCA, BMP, LIVR, 34947-7, 3016-3, 27484-1 #### [facility] ([id number]) [address], [address] [place] [address] Urea nitrogen [Mass/Vol] 27 mg/dL Normal 5-27 [facility] Comment on above: Performed By: #### C BCA, BMP, LIVR, 17484-9, 3016-3, 22158-5 #### [facility] ([id number]) [address], [address] [place] [address] MAGNESIUMon 07-19-2023 Magnesium [Mass/Vol] 2.1 mg/dL Normal 1.8-2.6 [facility] Comment on above: Performed By: #### C BCA, BMP, LIVR, 38830-8, 3016-3, 66887-8 #### [facility] ([id number]) [address], [address] [place] [address] Natriuretic peptide B [Mass/ Vol]on 07-19-2023 Natriuretic peptide B (Bld) [Mass/Vol] 156 pg/mL High <100.0 [facility] Comment on above: Performed By: #### C BCA, BMP, LIVR, 05275-9, 3016-3, 84773-5 #### [facility] ([id number]) [address], [address] [place] [address] POTASSIUMon 07-19-2023 Potassium [Moles/Vol] 4.7 mmol/L Normal 3.5-5.0 [facility] Comment on above: Performed By: #### C BCA, BMP, LIVR, 67485-6, 3016-3, 33468-6 #### [facility] ([id number]) [address], [address] [place] [address] Troponin I.cardiac High sens itivity method [Mass/Vol]on 07-19-2023 1 HOUR TROP I, HIGH SENSITIVITY 4 ng/L Normal <16 [facility] Comment on above: Performed By: #### C BCA, BMP, LIVR, 57452-7, 3016-3, 57512-2 #### [facility] ([id number]) [address], [address] [place] [address] TROPONIN I, HIGH SENSITIVITY 4 ng/L Normal <16 [facility] Comment on above: Performed By: #### C BCA, BMP, LIVR, 08785-0, 3016-3, 87193-1 #### [facility] ([id number]) [address], [address] [place] [address] XR KNEE RT 1 OR 2 VWSon [...] Ngo MD on 07/19/2023 12:38 PM Normal [facility] Erythrocyte distribution wid th Auto (RBC) [Ratio]on 07-06-2023 Erythrocyte distribution width (RBC) [Ratio] 13.2 % 11.0-15.0 [facility] Estimated glomerular filtrat ion rate (GFR) non- Americanon 07-06-2023 GFR/1.73 sq M.predicted among non-blacks MDRD (S/P/Bld) [Vol rate/Area] 34 mL/min/{1.73_m2} Low >=60 [facility] Hematocrit Auto (Bld) [Volum e fraction]on 07-06-2023 Hematocrit (Bld) [Volume fraction] 30.0 % Low 36.0-48.0 [facility] Hemoglobin [Mass/volume] in Bloodon 07-06-2023 Hemoglobin (Bld) [Mass/Vol] 9.5 g/dL Low 12.0-16.0 [facility] Iron binding capacity [Mass/ volume] in Serum or Plasmaon 07-06-2023 Iron binding capacity [Mass/Vol] 250.0 ug/dL 250.0-450.0 [facility] Iron saturation [Mass Fracti on] in Serum or Plasmaon 07-06-2023 Iron saturation [Mass fraction] 26.8 % [facility] Laboratory - Chemistry and C hemistry - challengeon 07-06-2023 Albumin [Mass/Vol] 4.3 g/dL 3.4-5.0 [facility] Calcium [Mass/Vol] 9.5 mg/dL 8.5-10.1 [facility] Chloride [Moles/Vol] 105 mmol/L 98-107 [facility] CO2 [Moles/Vol] 25.2 mmol/L 21.0-32.0 [facility] Creatinine [Mass/Vol] 1.49 mg/dL High 0.55-1.02 [place] Ferritin [Mass/Vol] 172.0 ng/mL 8.0-252.0 [facility] GFR/1.73 sq M.predicted MDRD (S/P/Bld) [Vol rate/Area] 41 mL/min/{1.73_m2} Low >=60 [facility] Glucose [Mass/Vol] 107 mg/dL High 74-106 [facility] Iron [Mass/Vol] 67.0 ug/dL 50.0-170.0 [facility] Magnesium [Mass/Vol] 2.1 mg/dL 1.8-2.4 [facility] Potassium [Moles/Vol] 5.6 mmol/L High 3.5-5.1 [place] Sodium [Moles/Vol] 139 mmol/L 136-145 [facility] Urate [Mass/Vol] 6.9 mg/dL High 2.6-6.0 [facility] Urea nitrogen [Mass/Vol] 25.0 mg/dL High 7.0-18.0 [facility] Urea nitrogen/Creatinine [Mass ratio] 16.8 mg/mg [facility] - Urinalysison Protein (U) [Mass/Vol] 6.8 mg/dL <=11.9 [facility] Leukocytes [#/volume] correc azul for nucleated erythrocytes in Blood by Automated counon 07-06-2023 WBC corrected for nucl RBC Auto (Bld) [#/Vol] 6.4 10 3/uL 4.0-11.0 [facility] MCH Auto (RBC) [Entitic mass ]on 07-06-2023 MCH (RBC) [Entitic mass] 30.3 pg 26.7-34.0 [facility] MCHC Auto (RBC) [Mass/Vol]on 07-06-2023 MCHC (RBC) [Mass/Vol] 31.7 g/dL 29.9-35.2 [place] MCV Auto (RBC) [Entitic vol] on 07-06-2023 MCV (RBC) [Entitic vol] 95.5 fL 81.0-99.0 [facility] No Panel Informationon 07-05 25-Hydroxy Vitamin D Total 57.7 ng/mL [facility] Comment on above: <20 ng/mL Vit D defi cient20-<30 ng/mL Vit D dseuttrxqcen76-637 ng/mL Vit D sufficient>100 ng/mL Potential Toxicity Parathyroid Hormone (Intact) 81 pg/mL Abnormal 15-65 [facility] Comment on above: Performed at: - [facility] [id number] Director: Tavon Arevalo PhD, Phone: [phone] Phosphorus Level 4.0 mg/dL 2.6-4.7 [facility] Urine Random Creatinine 65.39 mg/dL 20.00-300.0 0 [facility] Platelet mean volume Auto (B ld) [Entitic vol]on 07-06-2023 Platelet mean volume (Bld) [Entitic vol] 10.3 fL 9.5-13.5 [facility] Platelets Auto (Bld) [#/Vol] on 07-06-2023 Platelets (Bld) [#/Vol] 241 10 3/uL 150-450 [facility] RBC Auto (Bld) [#/Vol]on RBC (Bld) [#/Vol] 3.14 10 6/uL Low 4.20-5.40 [facility] Serum or plasma anion gap de terminationon 07-06-2023 Anion gap [Moles/Vol] 14.4 mmol/L Fi [facility] Urine protein/creatinine rat ioon 07-06-2023 Protein/Creatinine (U) [Ratio] 0.10 [facility] BASIC METABOLIC PANLon 06-21 Anion gap [Moles/Vol] 11 mmol/L Normal 5-15 [facility] Comment on above: Performed By: #### C BCA, BMP, LIVR, 91468-7, 3016-3, 10623-6 #### [facility] ([id number]) [address], [address] [place] [address] Calcium [Mass/Vol] 9.5 mg/dL Normal 8.5-10.5 [facility] Comment on above: Performed By: #### C BCA, BMP, LIVR, 08476-3, 3016-3, 71133-5 #### [facility] ([id number]) [address], [address] [place] [address] Chloride [Moles/Vol] 106 mmol/L Normal 98-109 [facility] Comment on above: Performed By: #### C BCA, BMP, LIVR, 14048-2, 3016-3, 87096-6 #### [facility] ([id number]) [address], [address] [place] [address] CO2 [Moles/Vol] 24 mmol/L Normal 22-32 [facility] Comment on above: Performed By: #### C BCA, BMP, LIVR, 13787-2, 3016-3, 48816-6 #### [facility] ([id number]) [address], [address] [place] [address] Creatinine [Mass/Vol] 1.48 mg/dL High 0.40-1.00 [facility] Comment on above: Result Comment: METH OD TRACEABLE TO IDMS STANDARD Performed By: #### C BCA, BMP, LIVR, 73185-3, 3016-3, 37112-7 #### [facility] ([id number]) [address], [address] [place] [address] GFR/1.73 sq M.predicted among non-blacks MDRD (S/P/Bld) [Vol rate/Area] 37 mL/min/{1.73_m2} Low >59 [facility] Comment on above: Result Comment: Reported eGFR is based on the CKD-EPI 2020 equation that does not use a race coefficient. Performed By: #### C BCA, BMP, LIVR, 88261-8, 3016-3, 00699-6 #### [facility] ([id number]) [address], [address] [place] [address] Glucose [Mass/Vol] 99 mg/dL Normal 65-99 [facility] Comment on above: Performed By: #### C BCA, BMP, LIVR, 69270-0, 3016-3, 72931-2 #### [facility] ([id number]) [address] [address] [place] [address] Potassium [Moles/Vol] 5.5 mmol/L High 3.5-5.0 [facility] Comment on above: Performed By: #### C BCA, BMP, LIVR, 02914-4, 3016-3, 88961-7 #### [facility] ([id number]) [address], [address] [place] [address] Sodium [Moles/Vol] 141 mmol/L Normal 134-146 [facility] Comment on above: Performed By: #### C BCA, BMP, LIVR, 95675-6, 3016-3, 03516-5 #### [facility] ([id number]) [address] [address] [place] [address] Urea nitrogen [Mass/Vol] 25 mg/dL Normal 5-27 [facility] Comment on above: Performed By: #### C BCA, BMP, LIVR, 92975-5, 3016-3, 65115-9 #### [facility] ([id number]) [address], [facility] [address] [place] [address] CBC AND AUTO DIFFon 06-22-19 24 ABSOLUTE BASOPHIL 0.0 X10E9/L Normal 0.0-0.2 [facility] Comment on above: Performed By: #### C BCA, BMP, PINR #### [facility] ([id number]) [address] [address] [place] [address] ABSOLUTE NEUTROPHIL 4.4 X10E9/L Normal 1.5-6.6 [facility] Comment on above: Performed By: #### C BCA, BMP, PINR #### [facility] ([id number]) [address] [address] [place] [address] Basophils/100 WBC (Bld) 0.4 % Normal [facility] Comment on above: Performed By: #### C BCA, BMP, PINR #### [facility] ([id number]) [address] [address] [place] [address] Eosinophils (Bld) [#/Vol] 0.1 10*3/uL Normal 0.0-0.4 [facility] Comment on above: Performed By: #### C BCA, BMP, PINR #### [facility] ([id number]) [address] [address] [place] [address] Eosinophils/100 WBC (Bld) 1.3 % Normal [facility] Comment on above: Performed By: #### C RADHA BMP, PINR #### [facility] ([id number]) [address] [address] [place] [address] Erythrocyte distribution width (RBC) [Ratio] 14.0 % Normal 11.5-15.0 [facility] Comment on above: Performed By: #### C RADHA, BMP, PINR #### [facility] ([id number]) [address], [facility] [address] [place] [address] Hematocrit (Bld) [Volume fraction] 28.8 % Low 35-47 [facility] Comment on above: Performed By: #### C TERI GARCIA, PINR #### [facility] ([id number]) [address] [address] [place] [address] Hemoglobin (Bld) [Mass/Vol] 9.9 g/dL Low 11.7-15.5 [facility] Comment on above: Performed By: #### C RADHA, BMP, PINR #### [facility] ([id number]) [address] [address] [place] [address] Lymphocytes (Bld) [#/Vol] 0.9 10*3/uL Low 1.0-3.5 [facility] Comment on above: Performed By: #### C RADHA, BMP, PINR #### [facility] ([id number]) [address] [address] [place] [address] Lymphocytes/100 WBC (Bld) 16.5 % Normal [facility] Comment on above: Performed By: #### C RADHA, BMP, PINR #### [facility] ([id number]) [address] [address] [place] [address] MCH (RBC) [Entitic mass] 31.3 pg Normal 27-34 [facility] Comment on above: Performed By: #### C RADHA, BMP, PINR #### [facility] ([id number]) [address] [place] [address] MCHC (RBC) [Mass/Vol] 34.4 g/dL Normal 32-36 [facility] Comment on above: Performed By: #### C TERI GARCIA, PINR #### [facility] ([id number]) [address] [address] [place] [address] MCV (RBC) [Entitic vol] 91 fL Normal 80-100 [facility] Comment on above: Performed By: #### C TERI GARCIA, PINR #### [facility] ([id number]) [address], [address] [place] [address] Monocytes (Bld) [#/Vol] 0.3 10*3/uL Normal 0-0.9 [facility] Comment on above: Performed By: #### C TERI GARCIA, PINR #### [facility] ([id number]) [address], [address] [place] [address] Monocytes/100 WBC (Bld) 4.7 % Normal [facility] Comment on above: Performed By: #### C TERI GARCIA, PINR #### [facility] ([id number]) [address] [address] [place] [address] Neutrophils/100 WBC (Bld) 77.1 % Normal [facility] Comment on above: Performed By: #### C TERI GARCIA, PINR #### [facility] ([id number]) [address] [address] [place] [address] Platelet mean volume (Bld) [Entitic vol] 9.4 fL Normal 7-12 [facility] Comment on above: Performed By: #### Ivette GARCIA, BMP, PINR #### [facility] ([id number]) [address] [address] [place] [address] Platelets (Bld) [#/Vol] 219 10*3/uL Normal 150-450 [facility] Comment on above: Performed By: #### C BCA, BMP, PINR #### [facility] ([id number]) [address] [address] [place] [address] RBC COUNT 3.17 X10E12/L Low 3.80-5.20 [facility] Comment on above: Performed By: #### C BCA, BMP, PINR #### [facility] ([id number]) [address] [address] WBC (Bld) [#/Vol] 5.7 10*3/uL Normal 4.0-11.0 [facility] Comment on above: Performed By: #### C BCA, BMP, PINR #### [facility] ([id number]) [address] [address] HGB A1C (GLYCO-HGB)on 2023 Glucose [Mass/Vol] 117 mg/dL Normal [facility] Comment on above: Performed By: #### C BCA, BMP, LIVR, 03616-4, 3016-3, 54764-5 #### [facility] ([id number]) [address] [address] HbA1c (Bld) [Mass fraction] 5.7 % High 4.4-5.6 [facility] Comment on above: Result Comment: NOTE ADA Guidelines Result HgbA1c Normal : less than 5.7 % Prediabetes : 5.7 % to 6.4 % Diabetes : > 6.4 % Use with caution in patients with abnormal hemoglobin variants as the half-life of red blood cells and in vivo glycation rates are affected. Performed By: #### C BCA, BMP, LIVR, 00524-2, 3016-3, 51298-3 #### [facility] ([id number]) [address] [place] [address] PROTIME AND INRon 06-22-2023 INR Coag (PPP) [Relative time] 1.0 {INR} Normal 0.8-1.1 [facility] Comment on above: Performed By: #### C BCA, BMP, LIVR, 87614-0, 3016-3, 43596-4 #### [facility] ([id number]) [address] [place] [address] PT Coag (PPP) [Time] 11.1 s Normal 9.8-13.2 [facility] Comment on above: Performed By: #### C BCA, BMP, LIVR, 52108-5, 3016-3, 43970-7 #### [facility] ([id number]) [address] [place] [address] BASIC METABOLIC PANLon 04-19 Anion gap [Moles/Vol] 9 mmol/L Normal 5-15 [facility] Comment on above: Performed By: #### C BCA, BMP, LIVR, 02615-9, 3016-3, 97539-0 #### [facility] ([id number]) [address] [address] [place] [address] Calcium [Mass/Vol] 9.5 mg/dL Normal 8.5-10.5 [facility] Comment on above: Performed By: #### C BCA, BMP, LIVR, 61023-6, 3016-3, 66724-0 #### [facility] ([id number]) [address] [address] [place] [address] Chloride [Moles/Vol] 105 mmol/L Normal 98-109 [facility] Comment on above: Performed By: #### C BCA, BMP, LIVR, 22003-4, 3016-3, 87515-4 #### [facility] ([id number]) [address] [place] [address] CO2 [Moles/Vol] 26 mmol/L Normal 22-32 [facility] Comment on above: Performed By: #### C BCA, BMP, LIVR, 10388-2, 3016-3, 39434-9 #### [facility] ([id number]) [address] [place] [address] Creatinine [Mass/Vol] 1.43 mg/dL High 0.40-1.00 [facility] Comment on above: Result Comment: METH OD TRACEABLE TO IDMS STANDARD Performed By: #### C BCA, BMP, LIVR, 67879-3, 3016-3, 81811-6 #### [facility] ([id number]) [address] [place] [address] GFR/1.73 sq M.predicted among non-blacks MDRD (S/P/Bld) [Vol rate/Area] 38 mL/min/{1.73_m2} Low >59 [facility] Comment on above: Result Comment: Reported eGFR is based on the CKD-EPI 2020 equation that does not use a race coefficient. Performed By: #### C BCA, BMP, LIVR, 14565-8, 3016-3, 51142-9 #### [facility] ([id number]) [address] [place] [address] Glucose [Mass/Vol] 97 mg/dL Normal 65-99 [facility] Comment on above: Performed By: #### C BCA, BMP, LIVR, 96200-0, 3016-3, 97293-5 #### [facility] ([id number]) [address] [place] [address] Potassium [Moles/Vol] 5.2 mmol/L High 3.5-5.0 [facility] Comment on above: Performed By: #### C BCA, BMP, LIVR, 23256-2, 3016-3, 89629-2 #### [facility] ([id number]) [address] [place] [address] Sodium [Moles/Vol] 140 mmol/L Normal 134-146 [facility] Comment on above: Performed By: #### C BCA, BMP, LIVR, 52501-4, 3016-3, 02242-1 #### [facility] ([id number]) [address], [address] [place] [address] Urea nitrogen [Mass/Vol] 28 mg/dL High 5-27 [facility] Comment on above: Performed By: #### C BCA, BMP, LIVR, 03158-3, 3016-3, 01889-7 #### [facility] ([id number]) [address], [address] [place] [address] Basic metabolic 1998 panelon 04-19-2023 Anion gap [Moles/Vol] 9 mmol/L 5 - 15 mmol/L [facility] Calcium [Mass/Vol] 9.5 mg/dL 8.5 - 10. 5 mg/dL [facility] Chloride [Moles/Vol] 105 mmol/L 98 - 10 9 mmol/L [facility] CO2 [Moles/Vol] 26 mmol/L 22 - 32 mmol/L [facility] Creatine [Mass/Vol] 1.43 mg/dL High 0.40 - 1 .00 mg/dL [facility] Comment on above: METHOD TRACEABLE TO IDNJ STANDARD GFR/1.73 sq M.predicted among non-blacks MDRD (S/P/Bld) [Vol rate/Area] 38 mL/min/{1.73_m2} Low - PINF [facility] Comment on above: Reported eGFR is based on the CKD-EPI 2020 equation that does not use a race coefficient. PERFORMED AT [facility] [address],[place] [address] Glucose [Mass/Vol] 97 mg/dL 65 - 99 mg/dL [facility] Potassium [Moles/Vol] 5.2 mmol/L High 3.5 - 5.0 mmol/L [facility] Sodium [Moles/Vol] 140 mmol/L 134 - 146 mmol/L [facility] Urea nitrogen [Mass/Vol] 28 mg/dL High 5 - 27 mg/d L [facility] CBC AND AUTO DIFFon 04-19-19 24 ABSOLUTE BASOPHIL 0.0 X10E9/L Normal 0.0-0.2 [facility] Comment on above: Performed By: #### C BCA, BMP, LIVR, 23085-5, 3016-3, 44579-6 #### [facility] ([id number]) [address], [address] [place] [address] ABSOLUTE NEUTROPHIL 3.4 X10E9/L Normal 1.5-6.6 [facility] Comment on above: Performed By: #### C BCA, BMP, LIVR, 50642-0, 3016-3, 22327-6 #### [facility] ([id number]) [address], [address] [place] [address] Basophils/100 WBC (Bld) 0.5 % Normal [facility] Comment on above: Performed By: #### C BCA, BMP, LIVR, 73012-5, 3016-3, 72307-1 #### [facility] [facility] ([id number]) [address], [address] [place] [address] Eosinophils (Bld) [#/Vol] 0.2 10*3/uL Normal 0.0-0.4 [facility] Comment on above: Performed By: #### C BCA, BMP, LIVR, 81676-4, 3016-3, 50513-3 #### [facility] ([id number]) [address], [address] [place] [address] Eosinophils/100 WBC (Bld) 3.8 % Normal [facility] Comment on above: Performed By: #### C BCA, BMP, LIVR, 68849-9, 3016-3, 24818-3 #### [facility] ([id number]) [address] [address] [place] [address] Erythrocyte distribution width (RBC) [Ratio] 15.4 % High 11.5-15.0 [facility] Comment on above: Performed By: #### C BCA, BMP, LIVR, 01071-4, 3016-3, 02137-0 #### [facility] ([id number]) [address], [address] [place] [address] Hematocrit (Bld) [Volume fraction] 32.5 % Low 35-47 [facility] Comment on above: Performed By: #### C BCA, BMP, LIVR, 64364-3, 3016-3, 72306-2 #### [facility] ([id number]) [address], [address] [place] [address] Hemoglobin (Bld) [Mass/Vol] 10.8 g/dL Low 11.7-15.5 [facility] Comment on above: Performed By: #### C BCA, BMP, LIVR, 85634-3, 3015-3, 57321-1 #### [facility] ([id number]) [address], [address] [place] [address] Lymphocytes (Bld) [#/Vol] 1.6 10*3/uL Normal 1.0-3.5 [facility] Comment on above: Performed By: #### C BCA, BMP, LIVR, 69416-8, 6-3, 72057-1 #### [facility] ([id number]) [address], [address] [place] [address] Lymphocytes/100 WBC (Bld) 29.5 % Normal [facility] Comment on above: Performed By: #### C BCA, BMP, LIVR, 85857-8, 6-3, 59799-4 #### [facility] ([id number]) [address], [address] [place] [address] MCH (RBC) [Entitic mass] 29.7 pg Normal 27-34 [facility] Comment on above: Performed By: #### C BCA, BMP, LIVR, 80383-9, 3016-3, 68390-7 #### [facility] ([id number]) [address], [address] [place] [address] MCHC (RBC) [Mass/Vol] 33.3 g/dL Normal 32-36 [facility] Comment on above: Performed By: #### C BCA, BMP, LIVR, 62410-8, 3016-3, 67899-3 #### [facility] ([id number]) [address], [address] [place] [address] MCV (RBC) [Entitic vol] 89 fL Normal 80-100 [facility] Comment on above: Performed By: #### C BCA, BMP, LIVR, 61157-5, 3016-3, 72606-4 #### [facility] ([id number]) [address], [facility] [address] [place] [address] Monocytes (Bld) [#/Vol] 0.3 10*3/uL Normal 0-0.9 [facility] Comment on above: Performed By: #### C BCA, BMP, LIVR, 66843-9, 3015-3, 13992-0 #### [facility] ([id number]) [address] [address] [place] [address] Monocytes/100 WBC (Bld) 5.0 % Normal [facility] Comment on above: Performed By: #### C BCA, BMP, LIVR, 27581-2, 3016-3, 23325-7 #### [facility] ([id number]) [address], [address] [place] [address] Neutrophils/100 WBC (Bld) 61.2 % Normal [facility] Comment on above: Performed By: #### C BCA, BMP, LIVR, 11526-4, 3016-3, 40735-1 #### [facility] ([id number]) [address], [address] [place] [address] Platelet mean volume (Bld) [Entitic vol] 9.3 fL Normal 7-12 [facility] Comment on above: Performed By: #### C BCA, BMP, LIVR, 20882-5, 3016-3, 33650-7 #### [facility] ([id number]) [address] [address] [place] [address] Platelets (Bld) [#/Vol] 215 10*3/uL Normal 150-450 [facility] Comment on above: Performed By: #### C BCA, BMP, LIVR, 04075-5, 3016-3, 24802-6 #### [facility] ([id number]) [address], [facility] [address] [place] [address] RBC COUNT 3.64 X10E12/L Low 3.80-5.20 [facility] Comment on above: Performed By: #### C BCA, BMP, LIVR, 00729-7, 3016-3, 84109-7 #### [facility] ([id number]) [address] [address] WBC (Bld) [#/Vol] 5.6 10*3/uL Normal 4.0-11.0 [facility] Comment on above: Performed By: #### C BCA, BMP, LIVR, 89784-1, 3016-3, 13871-9 #### [facility] ([id number]) [address], [address] [address] CBC W Auto Differential pane l (Bld)on 04-19-2023 ABSOLUTE BASOPHIL 0.0 [facility] Comment on above: PERFORMED AT [facility] [address] [place] [address],[place] [address] Basophils/100 WBC (Bld) 0.5 % [facility] Eosinophils (Bld) [#/Vol] 0.2 10*3/uL [facility] Eosinophils/100 WBC (Bld) 3.8 % [facility] Erythrocyte distribution width (RBC) [Ratio] 15.4 % High 11.5 - 15.0 % [facility] Hematocrit (Bld) [Volume fraction] 32.5 % Low 35 - 47 % [facility] Hemoglobin (Bld) [Mass/Vol] 10.8 g/dL Low 11.7 - 15.5 g/dL [facility] Lymphocytes (Bld) [#/Vol] 1.6 10*3/uL [facility] Lymphocytes/100 WBC (Bld) 29.5 % [facility] MCH (RBC) [Entitic mass] 29.7 pg 27 - 34 pg [facility] MCHC (RBC) [Mass/Vol] 33.3 g/dL 32 - 36 g/dL [facility] MCV (RBC) [Entitic vol] 89 fL 80 - 100 fL [facility] Monocytes (Bld) [#/Vol] 0.3 10*3/uL [facility] Monocytes/100 WBC (Bld) 5.0 % [facility] Neutrophils (Bld) [#/Vol] 3.4 10*3/uL [facility] Neutrophils/100 WBC (Bld) 61.2 % [facility] Platelet mean volume (Bld) [Entitic vol] 9.3 fL 7 - 12 fL [facility] Platelets (Bld) [#/Vol] 215 10*3/uL [facility] RBC (Bld) [#/Vol] 3.64 10*6/uL Low [facility] WBC corrected for nucl RBC Auto (Bld) [#/Vol] 5.6 [facility] HGB A1C (GLYCO-HGB)on 2023 Glucose [Mass/Vol] 128 mg/dL Normal [facility] Comment on above: Performed By: #### C BCA, BMP, LIVR, 97013-5, 3016-3, 42129-0 #### [facility] ([id number]) [address] [facility] [place] [address] HbA1c (Bld) [Mass fraction] 6.1 % High 4.4-5.6 [facility] Comment on above: Result Comment: NOTE ADA Guidelines Result HgbA1c Normal : less than 5.7 % Prediabetes : 5.7 % to 6.4 % Diabetes : > 6.4 % Use with caution in patients with abnormal hemoglobin variants as the half-life of red blood cells and in vivo glycation rates are affected. Performed By: #### C BCA, BMP, LIVR, 40455-7, 3016-3, 08582-0 #### [facility] ([id number]) [address], [address] [place] [address] LIVER PANELon 04-19-2023 Albumin [Mass/Vol] 4.6 g/dL Normal 3.2-5.3 [facility] Comment on above: Performed By: #### C BCA, BMP, LIVR, 01604-1, 3016-3, 47198-7 #### [facility] ([id number]) [address], [address] [place] [address] ALP [Catalytic activity/Vol] 43 U/L Normal 39-130 [facility] Comment on above: Performed By: #### C BCA, BMP, LIVR, 55633-6, 3016-3, 07572-4 #### [facility] ([id number]) [address], [address] [place] [address] ALT [Catalytic activity/Vol] 13 U/L Normal 0-31 [facility] Comment on above: Performed By: #### C BCA, BMP, LIVR, 74674-7, 3016-3, 17513-1 #### [facility] ([id number]) [address], [address] [place] [address] AST [Catalytic activity/Vol] 17 U/L Normal 0-41 [facility] Comment on above: Performed By: #### C BCA, BMP, LIVR, 90136-7, 3016-3, 21660-6 #### [facility] ([id number]) [address], [address] [place] [address] Bilirubin [Mass/Vol] 0.5 mg/dL Normal 0.3-1.2 [facility] Comment on above: Performed By: #### C BCA, BMP, LIVR, 79234-4, 3016-3, 18299-9 #### [facility] ([id number]) [address], [address] [place] [address] Bilirubin.direct [Mass/Vol] 0.1 mg/dL Normal 0.0-0.4 [facility] Comment on above: Performed By: #### C BCA, BMP, LIVR, 83642-4, 3016-3, 91849-5 #### [facility] ([id number]) [address], [address] [place] [address] Protein [Mass/Vol] 7.0 g/dL Normal 6.0-8.0 [facility] Comment on above: Performed By: #### C BCA, BMP, LIVR, 66570-5, 3016-3, 76138-2 #### [facility] ([id number]) [address], [address] [place] [address] Lipid 1996 panelon 4 Cholesterol [Mass/Vol] 177 mg/dL Normal 150-200 [facility] Comment on above: Performed By: #### C BCA, BMP, LIVR, 63379-4, 3016-3, 64504-2 #### [facility] ([id number]) [address], [address] [place] [address] Cholesterol in HDL [Mass/Vol] 48 mg/dL Normal >39 [facility] Comment on above: Result Comment: HDL <40 mg/dL - High Risk HDL > or = 40mg/dL- Desirable HDL >60 mg/dL - Negative Risk Performed By: #### C BCA, BMP, LIVR, 29877-9, 3016-3, 94293-2 #### [facility] ([id number]) [address], [address] [place] [address] Cholesterol in LDL [Mass/Vol] 81 mg/dL Normal <130 [facility] Comment on above: Result Comment: LDL <100 mg/dL - Desirable LDL >160 mg/dL - High Risk Performed By: #### C BCA, BMP, LIVR, 23248-1, 3016-3, 31524-1 #### [facility] ([id number]) [address], [address] [place] [address] Cholesterol in VLDL [Mass/Vol] 48 mg/dL High 0-30 [facility] Comment on above: Performed By: #### C BCA, BMP, LIVR, 99556-6, 3016-3, 65632-3 #### [facility] ([id number]) [address], [address] [place] [address] CHOLESTEROL:HDL 3.7 Normal 1.0-5.0 [facility] Comment on above: Performed By: #### C BCA, BMP, LIVR, 11915-0, 3016-3, 96160-3 #### [facility] ([id number]) [address], [address] [place] [address] Triglyceride [Mass/Vol] 239 mg/dL High 27-150 [facility] Comment on above: Performed By: #### C BCA, BMP, LIVR, 93158-9, 3016-3, 97820-5 #### [facility] ([id number]) [address], [address] [place] [address] MICROALBUMIN - ALBUMIN:CREAT ININE URINE RATIOon 04-19-2023 ALB/CREAT RATIO 26.4 mg/g creat Normal 0.0-30.0 [facility] Comment on above: Performed By: #### M ALBU #### [facility] ([id number]) [address] [facility], [address] [place] [address] Albumin DL <= 20 mg/L (U) [Mass/Vol] 2.0 mg/dL High 0.0-1.9 [facility] Comment on above: Performed By: #### M ALBU #### [facility] ([id number]) [address] [facility], [address] [place] [address] URINE CREAT 75.68 mg/dL Normal [facility] Comment on above: Performed By: #### M ALBU #### [facility] ([id number]) [address] [place] [address], [address] [place] [address] No Panel Informationon 04-19 Interpretation and review of laboratory results Abnormal [facility] TSH Qnon 04-19-2023 TSH 1.47 uIU/mL Normal 0.49-4.67 [facility] Comment on above: Performed By: #### C BCA, BMP, LIVR, 15854-0, 3016-3, 17233-3 #### [facility] ([id number]) [address] [facility], [address] [place] [address] Vitamin D+Metabolites [Mass/ Vol]on 04-19-2023 VITAMIN D 25 HYD TOT 51.9 ng/mL Normal 30-100 [facility] Comment on above: Result Comment: Vitamin D status 25 [place] Vitamin D Deficiency <20 ng/mL Insufficiency 20-29 ng/mL Sufficiency 30-100 ng/mL Toxicity >100 ng/mL NOTE: A pediatric reference range has not been established by the raimann machine operator of this kit. The [place] [employer] recommends a Vitamin D level of = or >20ng/mL in infants and children. Performed By: #### C BCA, BMP, LIVR, 60853-5, 3016-3, 12431-6 #### [facility] ([id number]) [address] [place] [address], [address] [place] [address] MR KNEE RIGHT WO IV CONTRAST on [...] to moderate osteoarthritis. ELECTRONICALLY SIGNED BY: Josue Rubalcava DO Normal Not Available Comment on above: Order Comment: MRI R T knee [facility] be done at [facility] is scheduled 04/12/23 at 10:30 for the mri, thank you Surgical Pathologyon [address] [facility] Comment on above: Result Comment: [facility] [address] [place] [address] Surgical Pathology Consultation Patient Name:MALGORZATA REYES:1945 (Age: 77)Gender:FTaken:4Reported:03/10/2023hysician(s):Michaela Emerson MD ([phone])Copy To: Rec. #:[id number]: #[id number] Final Pathologic Diagnosis 1. Duodenal polyps, biopsy: [...] No dysplasia identified. Report Electronically Signed Out ssi/03/10/2023Sujoel Card M.D. Interpretation performed at [facility], [address] [place] [address], License number: [id number]. Clinical History Iron deficient/anemia. Gross Description 1. Received in formalin labeled, SEAMON, duodenum are 3 palacio delicate to friable soft tissue bits, each 0.3 cm in greatest dimension. The specimens are filtered and submitted in a single cassette. (1, ns, [id number], m7) TB 2. Received in formalin labeled, SEAMON, antral are 2 palacio delicate soft tissue bits, 0.2 and 0.3 cm in greatest dimension. The specimens are filtered and submitted in a single cassette. (1, ns, [id number], m7) TB 3. Received in formalin labeled, SEAMON, fundus are 2 pale-palacio delicate soft tissue bits, 0.3 and 0.4 cm in greatest dimension. The specimens are filtered and submitted in a single cassette. (1, ns, [id number], m7) TB 4. Received in formalin labeled, SEAMON, 45 cm colon polyps is a pale-palacio feathery soft tissue bits, 0.4 cm in greatest dimension. The specimens are filtered and submitted in a single cassette. (1, ns, [id number], m7) TB tgb/1/3/2024GR Specimen(s) Received 1: Duodenum x2 polyps 2: Antrum biopsy 3: Fundic stomach 4: Colon polyp at 45cm Fee Codes(s): 1; 79202 2; 54167 3; 22974 4; 24566 GLYCOHEMOGLOBIN A1Con 2022 ADA RECOMMENDATION SEE BELOW Normal [facility] Comment on above: Result Comment: ADA RECOMMENDED LIMIT 4.0 - 6.0 ADA THERAPEUTIC TARGET < 7.0 ACTION SUGGESTED > 7.0 Performed By: #### B MP, LIPID, AST, TSH, ALT #### [facility] [address] [place] [address] Dr. Viri Strong Glucose [Mass/Vol] 126 mg/dL Normal [facility] Comment on above: Performed By: #### B MP, LIPID, AST, TSH, ALT #### [facility] [address] [place] [address] Dr. Viri Strong HbA1c (Bld) [Mass fraction] 6.0 % Normal 4.5-6.2 [facility] Comment on above: Performed By: #### B MP, LIPID, AST, TSH, ALT #### [facility] [address] [address] [address] Viri Strong RENAL FUNCTION PANELon 03-15 Albumin [Mass/Vol] 4.1 g/dL Normal 3.4-5.0 [facility] Comment on above: Performed By: #### B MP, LIPID, AST, TSH, ALT #### [facility] [address] [address] [address] Viri Strong Calcium [Mass/Vol] 9.1 mg/dL Normal 8.5-10.1 [facility] Comment on above: Performed By: #### B MP, LIPID, AST, TSH, ALT #### [facility] [address] [address] [address] Viri Strong Chloride [Moles/Vol] 107 mmol/L Normal 98-107 [facility] Comment on above: Performed By: #### B MP, LIPID, AST, TSH, ALT #### [facility] [address] [place] [address] Dr. Viri Strong CO2 [Moles/Vol] 24.6 mmol/L Normal 21.0-32.0 [facility] Comment on above: Performed By: #### B MP, LIPID, AST, TSH, ALT #### [facility] [address] [address] [address] Viri Strong Creatinine [Mass/Vol] 1.31 mg/dL Critically high 0.55-1.02 [facility] Comment on above: Performed By: #### B MP, LIPID, AST, TSH, ALT #### [facility] [address] [place] [address] Dr. Viri Strong EGFR-AF GIBRALTARIAN 48 mL/min/1.73m2 Critically low >=60 [facility] Comment on above: Performed By: #### B MP, LIPID, AST, TSH, ALT #### [facility] [address] [place] [address] Dr. Viri Strong EGFR-NON AF GIBRALTARIAN 40 mL/min/1.73m2 Critically low >=60 [facility] Comment on above: Performed By: #### B MP, LIPID, AST, TSH, ALT #### [facility] [address] [place] [address] Dr. Viri Strong Glucose [Mass/Vol] 99 mg/dL Normal 74-106 [facility] Comment on above: Performed By: #### B MP, LIPID, AST, TSH, ALT #### [facility] [address] [place] [address] Dr. Viri Strong Phosphate [Mass/Vol] 3.4 mg/dL Normal 2.6-4.7 [facility] Comment on above: Performed By: #### B MP, LIPID, AST, TSH, ALT #### [facility] [address] [address] [address] Viri Strong Potassium [Moles/Vol] 4.6 mmol/L Normal 3.5-5.1 [facility] Comment on above: Performed By: #### B MP, LIPID, AST, TSH, ALT #### [facility] [address] [address] [address] Viri Strong Sodium [Moles/Vol] 141 mmol/L Normal 136-145 [facility] Comment on above: Performed By: #### B MP, LIPID, AST, TSH, ALT #### [facility] [address] [address] [address] Viri Strong Urea nitrogen [Mass/Vol] 28.0 mg/dL Critically high 7.0-18 .0 [facility] Comment on above: Performed By: #### B MP, LIPID, AST, TSH, ALT #### [facility] [address] [address] [address] Viri Strong RENAL FUNCTION PANELon 01-31 Albumin [Mass/Vol] 4.1 g/dL Normal 3.4-5.0 [facility] Comment on above: Performed By: #### B MP, LIPID, AST, TSH, ALT #### [facility] [address] [place] [address] Dr. Viri Strong Calcium [Mass/Vol] 9.3 mg/dL Normal 8.5-10.1 [facility] Comment on above: Performed By: #### B MP, LIPID, AST, TSH, ALT #### [facility] [address] [place] [address] Dr. Viri Strong Chloride [Moles/Vol] 105 mmol/L Normal 98-107 [facility] Comment on above: Performed By: #### B MP, LIPID, AST, TSH, ALT #### [facility] [address] [place] [address] Dr. Viri Strong CO2 [Moles/Vol] 22.5 mmol/L Normal 21.0-32.0 [facility] Comment on above: Performed By: #### B MP, LIPID, AST, TSH, ALT #### [facility] [address] [address] [address] Viri Strong Creatinine [Mass/Vol] 1.31 mg/dL Critically high 0.55-1.02 [facility] Comment on above: Performed By: #### B MP, LIPID, AST, TSH, ALT #### [facility] [address] [place] [address] Dr. Viri Strong EGFR-AF GIBRALTARIAN 48 mL/min/1.73m2 Critically low >=60 [facility] Comment on above: Performed By: #### B MP, LIPID, AST, TSH, ALT #### [facility] [address] [place] [address] Dr. Viri Strong EGFR-NON AF GIBRALTARIAN 40 mL/min/1.73m2 Critically low >=60 [facility] Comment on above: Performed By: #### B MP, LIPID, AST, TSH, ALT #### [facility] [address] [place] [address] Dr. Viri Strong Glucose [Mass/Vol] 105 mg/dL Normal 74-106 [facility] Comment on above: Performed By: #### B MP, LIPID, AST, TSH, ALT #### [facility] [address] [place] [address] Dr. Viri Strong Phosphate [Mass/Vol] 3.2 mg/dL Normal 2.6-4.7 [facility] Comment on above: Performed By: #### B MP, LIPID, AST, TSH, ALT #### [facility] [address] [place] [address] Dr. Viri Strong Potassium [Moles/Vol] 5.0 mmol/L Normal 3.5-5.1 [facility] Comment on above: Performed By: #### B MP, LIPID, AST, TSH, ALT #### [facility] [address] [place] [address] Dr. Viri Strong Sodium [Moles/Vol] 138 mmol/L Normal 136-145 [facility] Comment on above: Performed By: #### B MP, LIPID, AST, TSH, ALT #### [facility] [address] [place] [address] Dr. Viri Strong Urea nitrogen [Mass/Vol] 24.0 mg/dL Critically high 7.0-18 .0 [facility] Comment on above: Performed By: #### B MP, LIPID, AST, TSH, ALT #### [facility] [address] [place] [address] Dr. Viri Strong MAGNESIUMon 01-19-2022 Magnesium [Mass/Vol] 2.1 mg/dL Normal 1.8-2.4 [facility] Comment on above: Performed By: #### B MP, LIPID, AST, TSH, ALT #### [facility] [address] [address] [address] Viri Strong RENAL FUNCTION PANELon 01-19 Albumin [Mass/Vol] 4.4 g/dL Normal 3.4-5.0 [facility] Comment on above: Performed By: #### B MP, LIPID, AST, TSH, ALT #### [facility] [address] [place] [address] Dr. Viri Strong Calcium [Mass/Vol] 9.7 mg/dL Normal 8.5-10.1 [facility] Comment on above: Performed By: #### B MP, LIPID, AST, TSH, ALT #### [facility] [address] [place] [address] Dr. Viri Strong Chloride [Moles/Vol] 101 mmol/L Normal 98-107 [facility] Comment on above: Performed By: #### B MP, LIPID, AST, TSH, ALT #### [facility] [address] [place] [address] Dr. Viri Strong CO2 [Moles/Vol] 26.8 mmol/L Normal 21.0-32.0 [facility] Comment on above: Performed By: #### B MP, LIPID, AST, TSH, ALT #### [facility] [address] [address] [address] Viri Strong Creatinine [Mass/Vol] 1.37 mg/dL Critically high 0.55-1.02 [facility] Comment on above: Performed By: #### B MP, LIPID, AST, TSH, ALT #### [facility] [address] [address] [address] Viri Strong EGFR-AF GIBRALTARIAN 46 mL/min/1.73m2 Critically low >=60 [facility] Comment on above: Performed By: #### B MP, LIPID, AST, TSH, ALT #### [facility] [address] [address] [address] Viri Strong EGFR-NON AF GIBRALTARIAN 38 mL/min/1.73m2 Critically low >=60 [facility] Comment on above: Performed By: #### B MP, LIPID, AST, TSH, ALT #### [facility] [address] [place] [address] Dr. Viri Strong Glucose [Mass/Vol] 88 mg/dL Normal 74-106 [facility] Comment on above: Performed By: #### B MP, LIPID, AST, TSH, ALT #### [facility] [address] [address] [address] Viri Strong Phosphate [Mass/Vol] 4.2 mg/dL Normal 2.6-4.7 [facility] Comment on above: Performed By: #### B MP, LIPID, AST, TSH, ALT #### [facility] [address] [place] [address] Dr. Viri Strong Potassium [Moles/Vol] 5.3 mmol/L Critically high 3.5-5.1 [facility] Comment on above: Performed By: #### B MP, LIPID, AST, TSH, ALT #### [facility] [address] [place] [address] Dr. Viri Strong Sodium [Moles/Vol] 135 mmol/L Critically low 136-145 [facility] Comment on above: Performed By: #### B MP, LIPID, AST, TSH, ALT #### [facility] [address] [place] [address] Dr. Viri Strong Urea nitrogen [Mass/Vol] 35.0 mg/dL Critically high 7.0-18 .0 [facility] Comment on above: Performed By: #### B MP, LIPID, AST, TSH, ALT #### [facility] [address] [place] [address] Dr. Viri Strong UA RANDOM W/MICROSCOPICon BACTERIA NONE SEEN Normal NONE SEEN [facility] Comment on above: Performed By: #### B MP, LIPID, AST, TSH, ALT #### [facility] [address] [place] [address] Dr. Viri Strong Bilirubin Ql (U) Negative Normal NEGATIVE [facility] Comment on above: Performed By: #### B MP, LIPID, AST, TSH, ALT #### [facility] [address] [place] [address] Dr. Viri Srtong CAST NONE SEEN Normal NONE SEEN [facility] Comment on above: Performed By: #### B MP, LIPID, AST, TSH, ALT #### [facility] [address] [place] [address] Dr. Viri Strong Clarity (U) CLEAR Normal CLEAR [facility] Comment on above: Performed By: #### B MP, LIPID, AST, TSH, ALT #### [facility] [address] [place] [address] Dr. Viri Strong Color (U) LT. YELLOW Normal YELLOW [facility] Comment on above: Performed By: #### B MP, LIPID, AST, TSH, ALT #### [facility] [address] [place] [address] Dr. Viri Strong Crystals LM Nom (Urine sed) NONE SEEN Normal NONE SEEN [facility] Comment on above: Performed By: #### B MP, LIPID, AST, TSH, ALT #### [facility] [address] [place] [address] Dr. Viri Strong Epithelial cells LM Ql (Urine sed) RARE Normal NONE SEEN /RARE [facility] Comment on above: Performed By: #### B MP, LIPID, AST, TSH, ALT #### [facility] [address] [place] [address] Dr. Viri Strong Glucose Ql (U) Negative Normal NEGATIVE [facility] Comment on above: Performed By: #### B MP, LIPID, AST, TSH, ALT #### [facility] [address] [place] [address] Dr. Viri Strong Hemoglobin Ql (U) Negative Normal NEGATIVE [facility] Comment on above: Performed By: #### B MP, LIPID, AST, TSH, ALT #### [facility] [address] [place] [address] Dr. Viri Strong Ketones Ql (U) Negative Normal NEGATIVE [facility] Comment on above: Performed By: #### B MP, LIPID, AST, TSH, ALT #### [facility] [address] [place] [address] Dr. Viri Strong LEUKOCYTES TRACE Abnormal NEGATIVE [facility] Comment on above: Performed By: #### B MP, LIPID, AST, TSH, ALT #### [facility] [address] [place] [address] Dr. Viri Strong MUCOUS NONE SEEN Normal NONE SEEN [facility] Comment on above: Performed By: #### B MP, LIPID, AST, TSH, ALT #### [facility] [address] [place] [address] Dr. Viri Strong Nitrite Ql (U) Negative Normal NEGATIVE [facility] Comment on above: Performed By: #### B MP, LIPID, AST, TSH, ALT #### [facility] [address] [place] [address] Dr. Viri Strong pH (U) 5.0 [pH] Normal 5-9 [facility] Comment on above: Performed By: #### B MP, LIPID, AST, TSH, ALT #### [facility] [address] [place] [address] Dr. Viri Strong RBC 0-2 Normal 0-2 [facility] Comment on above: Performed By: #### B MP, LIPID, AST, TSH, ALT #### [facility] [address] [place] [address] Dr. Viri Strong SPEC GRAVITY 1.010 Normal 1.005-<=1.02 5 [facility] Comment on above: Performed By: #### B MP, LIPID, AST, TSH, ALT #### [facility] [address] [place] [address] Dr. Viri Strong UA PROTEIN Negative Normal NEGATIVE/ TRACE [facility] Comment on above: Performed By: #### B MP, LIPID, AST, TSH, ALT #### [facility] [address] [place] [address] Dr. Viri Strong Urobilinogen Qn (U) 0.2 {Alem'U}/dL Normal 0.2 - 1. 0 [facility] Comment on above: Performed By: #### B MP, LIPID, AST, TSH, ALT #### [facility] [address] [place] [address] Dr. Viri Strong WBC 2-5 Abnormal NONE SEEN [facility] Comment on above: Performed By: #### B MP, LIPID, AST, TSH, ALT #### [facility] [address] [place] [address] Dr. Viri Strong PTH INTACTon 01-04-2022 PTH, Intact 45 pg/mL Normal 15-65 [facility] Comment on above: Performed By: #### B MP, LIPID, AST, TSH, ALT #### [facility] [address] [place] [address] Dr. Viri Strong FERRITINon 01-03-2022 Ferritin [Mass/Vol] 51.0 ng/mL Normal 8.0-252.0 [facility] Comment on above: Performed By: #### B MP, LIPID, AST, TSH, ALT #### [facility] [address] [place] [address] Dr. Viri Strong HEMOGRAM AND PLATELon 2021 Hematocrit (Bld) [Volume fraction] 31.7 % Critically low 36.0-48.0 [facility] Comment on above: Performed By: #### B MP, LIPID, AST, TSH, ALT #### [facility] [address] [place] [address] Dr. Viri Strong Hemoglobin (Bld) [Mass/Vol] 10.2 g/dL Critically low 12.0-16.0 [facility] Comment on above: Performed By: #### B MP, LIPID, AST, TSH, ALT #### [facility] [address] [place] [address] Dr. Viri Strong MCH (RBC) [Entitic mass] 29.2 pg Normal 26.7-34.0 [facility] Comment on above: Performed By: #### B MP, LIPID, AST, TSH, ALT #### [facility] [address] [place] [address] Dr. Viri Strong MCHC (RBC) [Mass/Vol] 32.2 g/dL Normal 29.9-35.2 [facility] Comment on above: Performed By: #### B MP, LIPID, AST, TSH, ALT #### [facility] [address] [place] [address] Dr. Viri Strong MCV (RBC) [Entitic vol] 90.8 fL Normal 81.0-99.0 [facility] Comment on above: Performed By: #### B MP, LIPID, AST, TSH, ALT #### [facility] [address] [place] [address] Dr. Viri Strong PLT 231 103/ul Normal 150-450 [facility] Comment on above: Performed By: #### B MP, LIPID, AST, TSH, ALT #### [facility] [address] [place] [address] Dr. Viri Strong RBC 3.49 106/ul Critically low 4.20-5.40 [facility] Comment on above: Performed By: #### B MP, LIPID, AST, TSH, ALT #### [facility] [address] [place] [address] Dr. Viri Strong WBC 5.9 103/ul Normal 4.0-11.0 [facility] Comment on above: Performed By: #### B MP, LIPID, AST, TSH, ALT #### [facility] [address] [place] [address] Dr. Viri Strong IRON AND TIBCon 01-03-2022 % SATURATION 18.0 % Normal [facility] Comment on above: Performed By: #### B MP, LIPID, AST, TSH, ALT #### [facility] [address] [place] [address] Dr. Viri Strong Iron [Mass/Vol] 58.0 ug/dL Normal 50.0-170.0 [facility] Comment on above: Performed By: #### B MP, LIPID, AST, TSH, ALT #### [facility] [address] [place] [address] Dr. Viri Strong TIBC DIRECT 322.0 ug/dL Normal 250.0-450.0 [facility] Comment on above: Performed By: #### B MP, LIPID, AST, TSH, ALT #### [facility] [address] [place] [address] Dr. Viri Strong MAGNESIUMon 01-03-2022 Magnesium [Mass/Vol] 2.1 mg/dL Normal 1.8-2.4 [facility] Comment on above: Performed By: #### M G, URIC, RENAL #### [facility] [address] [place] [address] Dr. Viri Strong RENAL FUNCTION PANELon 01-03 Albumin [Mass/Vol] 4.3 g/dL Normal 3.4-5.0 [facility] Comment on above: Performed By: #### M G, URIC, RENAL #### [facility] [address] [place] [address] Dr. Viri Strong Calcium [Mass/Vol] 9.0 mg/dL Normal 8.5-10.1 [facility] Comment on above: Performed By: #### M G, URIC, RENAL #### [facility] [address] [place] [address] Dr. Viri Strong Chloride [Moles/Vol] 108 mmol/L Critically high 98-107 [facility] Comment on above: Performed By: #### M G, URIC, RENAL #### [facility] [address] [place] [address] Dr. Viri Strong CO2 [Moles/Vol] 23.4 mmol/L Normal 21.0-32.0 [facility] Comment on above: Performed By: #### M G, URIC, RENAL #### [facility] [address] [place] [address] Dr. Viri Strong Creatinine [Mass/Vol] 1.32 mg/dL Critically high 0.55-1.02 [facility] Comment on above: Performed By: #### M G, URIC, RENAL #### [facility] [address] [place] [address] Dr. Viri Strong EGFR-AF GIBRALTARIAN 48 mL/min/1.73m2 Critically low >=60 [facility] Comment on above: Performed By: #### M G, URIC, RENAL #### [facility] [address] [place] [address] Dr. Viri Strong EGFR-NON AF GIBRALTARIAN 39 mL/min/1.73m2 Critically low >=60 [facility] Comment on above: Performed By: #### M Nasreen, URIC, RENAL #### [facility] [address] [address] [address] Viri Strong Glucose [Mass/Vol] 92 mg/dL Normal 74-106 [facility] Comment on above: Performed By: #### M Nasreen, URIC, RENAL #### [facility] [address] [address] [address] Viri Strong Phosphate [Mass/Vol] 4.0 mg/dL Normal 2.6-4.7 [facility] Comment on above: Performed By: #### M Nasreen URIC, RENAL #### [facility] [address] [place] [address] Dr. Viri Strong Potassium [Moles/Vol] 4.7 mmol/L Normal 3.5-5.1 [facility] Comment on above: Performed By: #### M Nasreen URIC, RENAL #### [facility] [address] [place] [address] Dr. Viri Strong Sodium [Moles/Vol] 138 mmol/L Normal 136-145 [facility] Comment on above: Performed By: #### M Nasreen URIC, RENAL #### [facility] [address] [place] [address] Dr. Viri Strong Urea nitrogen [Mass/Vol] 33.0 mg/dL Critically high 7.0-18 .0 [facility] Comment on above: Performed By: #### M Nasreen, URIC, RENAL #### [facility] [address] [place] [address] Dr. Viri Strong UA RANDOM W/MICROSCOPICon BACTERIA NONE SEEN Normal NONE SEEN [facility] Comment on above: Performed By: #### B MP, LIPID, AST, TSH, ALT #### [facility] [address] [place] [address] Dr. Viri Strong Bilirubin Ql (U) Negative Normal NEGATIVE [facility] Comment on above: Performed By: #### B MP, LIPID, AST, TSH, ALT #### [facility] [address] [address] [address] Viri Strong CAST NONE SEEN Normal NONE SEEN [facility] Comment on above: Performed By: #### B MP, LIPID, AST, TSH, ALT #### [facility] [address] [address] [address] Viri Strong Clarity (U) CLEAR Normal CLEAR [facility] Comment on above: Performed By: #### B MP, LIPID, AST, TSH, ALT #### [facility] [address] [address] [address] Viri Strong Color (U) LT. YELLOW Normal YELLOW [facility] Comment on above: Performed By: #### B MP, LIPID, AST, TSH, ALT #### [facility] [address] [place] [address] Dr. Viri Strong Crystals LM Nom (Urine sed) NONE SEEN Normal NONE SEEN [facility] Comment on above: Performed By: #### B MP, LIPID, AST, TSH, ALT #### [facility] [address] [place] [address] Dr. Viri Strong Epithelial cells LM Ql (Urine sed) NONE SEEN Normal NONE SEEN /RARE [facility] Comment on above: Performed By: #### B MP, LIPID, AST, TSH, ALT #### [facility] [address] [place] [address] Dr. Viri Strong Glucose Ql (U) Negative Normal NEGATIVE [facility] Comment on above: Performed By: #### B MP, LIPID, AST, TSH, ALT #### [facility] [address] [place] [address] Dr. Viri Strong Hemoglobin Ql (U) Negative Normal NEGATIVE [facility] Comment on above: Performed By: #### B MP, LIPID, AST, TSH, ALT #### [facility] [address] [place] [address] Dr. Viri Strong Ketones Ql (U) Negative Normal NEGATIVE [facility] Comment on above: Performed By: #### B MP, LIPID, AST, TSH, ALT #### [facility] [address] [place] [address] Dr. Viri Strnog LEUKOCYTES SMALL Abnormal NEGATIVE [facility] Comment on above: Performed By: #### B MP, LIPID, AST, TSH, ALT #### [facility] [address] [place] [address] Dr. Viri Strong MUCOUS NONE SEEN Normal NONE SEEN [facility] Comment on above: Performed By: #### B MP, LIPID, AST, TSH, ALT #### [facility] [address] [place] [address] Dr. Viri Strong Nitrite Ql (U) Negative Normal NEGATIVE [facility] Comment on above: Performed By: #### B MP, LIPID, AST, TSH, ALT #### [facility] [address] [place] [address] Dr. Viri Strong pH (U) 5.5 [pH] Normal 5-9 [facility] Comment on above: Performed By: #### B MP, LIPID, AST, TSH, ALT #### [facility] [address] [place] [address] Dr. Viri Strong RBC 0-2 Normal 0-2 [facility] Comment on above: Performed By: #### B MP, LIPID, AST, TSH, ALT #### [facility] [address] [place] [address] Dr. Viri Strong SPEC GRAVITY 1.020 Normal 1.005-<=1.02 5 [facility] Comment on above: Performed By: #### B MP, LIPID, AST, TSH, ALT #### [facility] [address] [place] [address] Dr. Viri Strong UA PROTEIN Negative Normal NEGATIVE/ TRACE [facility] Comment on above: Performed By: #### B MP, LIPID, AST, TSH, ALT #### [facility] [address] [place] [address] Dr. Viri Strong Urobilinogen Qn (U) 0.2 {Alem'U}/dL Normal 0.2 - 1. 0 [facility] Comment on above: Performed By: #### B MP, LIPID, AST, TSH, ALT #### [facility] [address] [place] [address] Dr. Viri Strong WBC 0-2 Abnormal NONE SEEN [facility] Comment on above: Performed By: #### B MP, LIPID, AST, TSH, ALT #### [facility] [address] [place] [address] Dr. Viri Strong URIC ACID SERUMon 01-03-2022 Urate [Mass/Vol] 8.7 mg/dL Critically high 2.6-6.0 [facility] Comment on above: Performed By: #### M G, URIC, RENAL #### [facility] [address] [place] [address] Dr. Viri Strong URINE T PROTEIN CREAT RATIOo n 01-03-2022 Protein (U) [Mass/Vol] 30.8 mg/dL Critically high <=12.0 [facility] Comment on above: Performed By: #### B MP, LIPID, AST, TSH, ALT #### [facility] [address] [place] [address] Dr. Viri Strong UR PROT CREAT RAT 0.26 Normal [facility] Comment on above: Performed By: #### B MP, LIPID, AST, TSH, ALT #### [facility] [address] [place] [address] Dr. Viri Strong URINE CREAT 118.48 mg/dL Normal 20.00-300.00 [facility] Comment on above: Performed By: #### B MP, LIPID, AST, TSH, ALT #### [facility] [address] [place] [address] Dr. Viri Strong VITAMIN D 25 OHon 01-03-2022 VIT D 25-OH 36.5 ng/mL Normal [facility] Comment on above: Performed By: #### B MP, LIPID, AST, TSH, ALT #### [facility] [address] [place] [address] Dr. Viri Strong VIT D RANGES SEE BELOW Normal [facility] Comment on above: Result Comment: <20 ng/mL Vit D deficient 20 - <30 ng/mL Vit D insufficient 30 - 100 ng/mL Vit D sufficient >100 ng/mL Potential Toxicity Performed By: #### B MP, LIPID, AST, TSH, ALT #### [facility] [address] [address] [address] Viri Strong MICROALBUMIN URINEon 022 Albumin, Urine 5.1 ug/mL Normal Not Estab. [facility] Comment on above: Performed By: #### B MP, LIPID, AST, TSH, ALT #### [facility] [address] [address] [address] Viri Strong VIT D 25-OH [employer]ABC[employer]on 2021 Vitamin D, 25-Hydroxy 36.7 ng/mL Normal 30.0-100.0 [facility] Comment on above: Result Comment: Silvina min D deficiency has been defined by the [place] and an Endocrine Society practice guideline as a level of serum 25-OH vitamin D less than 20 ng/mL (1,2). The Endocrine Society went on to further define vitamin D insufficiency as a level between 21 and 29 ng/mL (2). 1. IOM ([employer]). 2010. Dietary reference intakes for calcium and D. [place]: The National Academies Press. 2. Levon MF, Prakash NC, Diamond KIRBY, et al. Evaluation, treatment, and prevention of vitamin D deficiency: an Endocrine Society clinical practice guideline. JCEM. 2010; 96(7):1911-30. Performed By: #### B MP, LIPID, AST, TSH, ALT #### [facility] [address] [place] [address] Dr. Viri Strong CBC AUTO DIFFon 10-26-2021 BASO # 0.1 103/ul Normal 0.0-0.1 [facility] Comment on above: Performed By: #### B MP, LIPID, AST, TSH, ALT #### [facility] [address] [address] [address] Viri Strong Basophils/100 WBC (Bld) 1.0 % Normal 0.2-2.0 [facility] Comment on above: Performed By: #### B MP, LIPID, AST, TSH, ALT #### [facility] [address] [address] [address] Viri Strong EO # 0.2 103/ul Normal 0.0-0.7 [facility] Comment on above: Performed By: #### B MP, LIPID, AST, TSH, ALT #### [facility] [address] [place] [address] Dr. Viri Strong Eosinophils/100 WBC (Bld) 4.6 % Normal 0.9-7.0 [facility] Comment on above: Performed By: #### B MP, LIPID, AST, TSH, ALT #### [facility] [address] [place] [address] Dr. Viri Strong Erythrocyte distribution width (RBC) [Ratio] 13.5 % Normal 11.0-15.0 [facility] Comment on above: Performed By: #### B MP, LIPID, AST, TSH, ALT #### [facility] [address] [place] [address] Dr. Viri Strong Hematocrit (Bld) [Volume fraction] 32.3 % Critically low 36.0-48.0 [facility] Comment on above: Performed By: #### B MP, LIPID, AST, TSH, ALT #### [facility] [address] [place] [address] Dr. Viri Strong Hemoglobin (Bld) [Mass/Vol] 10.7 g/dL Critically low 12.0-16.0 [facility] Comment on above: Performed By: #### B MP, LIPID, AST, TSH, ALT #### [facility] [address] [place] [address] Dr. Viri Strong IG # 0.01 10e3/ul Normal 0.00-0.03 [facility] Comment on above: Performed By: #### B MP, LIPID, AST, TSH, ALT #### [facility] [address] [place] [address] Dr. Viri Strong IG % 0.2 % Normal 0.0-0.5 [facility] Comment on above: Performed By: #### B MP, LIPID, AST, TSH, ALT #### [facility] [address] [place] [address] Dr. Viri Strong LYMPH # 1.3 103/ul Normal 1.2-3.8 [facility] Comment on above: Performed By: #### B MP, LIPID, AST, TSH, ALT #### [facility] [address] [place] [address] Dr. Viri Strong Lymphocytes/100 WBC (Bld) 25.5 % Normal 20.5-60.0 [facility] Comment on above: Performed By: #### B MP, LIPID, AST, TSH, ALT #### [facility] [address] [place] [address] Dr. Viri Strong MANUAL DIFF REQ NO Normal [facility] Comment on above: Performed By: #### B MP, LIPID, AST, TSH, ALT #### [facility] [address] [place] [address] Dr. Viri Strong MCH (RBC) [Entitic mass] 29.3 pg Normal 26.7-34.0 [facility] Comment on above: Performed By: #### B MP, LIPID, AST, TSH, ALT #### [facility] [address] [place] [address] Dr. Viri Strong MCHC (RBC) [Mass/Vol] 33.1 g/dL Normal 29.9-35.2 [facility] Comment on above: Performed By: #### B MP, LIPID, AST, TSH, ALT #### [facility] [address] [place] [address] Dr. Viri Strong MCV (RBC) [Entitic vol] 88.5 fL Normal 81.0-99.0 [facility] Comment on above: Performed By: #### B MP, LIPID, AST, TSH, ALT #### [facility] [address] [place] [address] Dr. Viri Strong MONO # 0.4 103/ul Normal 0.3-0.8 [facility] Comment on above: Performed By: #### B MP, LIPID, AST, TSH, ALT #### [facility] [address] [place] [address] Dr. Viri Strong Monocytes/100 WBC (Bld) 8.0 % Normal 1.7-12.0 [facility] Comment on above: Performed By: #### B MP, LIPID, AST, TSH, ALT #### [facility] [address] [address] [address] Viri Strong NEUT # 3.0 103/ul Normal 1.4-6.5 [facility] Comment on above: Performed By: #### B MP, LIPID, AST, TSH, ALT #### [facility] [address] [place] [address] Dr. Viri Strong Neutrophils/100 WBC (Bld) 60.7 % Normal 43.0-75.0 [facility] Comment on above: Performed By: #### B MP, LIPID, AST, TSH, ALT #### [facility] [address] [place] [address] Dr. Viri Strong Platelet mean volume (Bld) [Entitic vol] 9.8 fL Normal 9.5-13.5 [facility] Comment on above: Performed By: #### B MP, LIPID, AST, TSH, ALT #### [facility] [address] [place] [address] Dr. Viri Strong PLT 266 103/ul Normal 150-450 [facility] Comment on above: Performed By: #### B MP, LIPID, AST, TSH, ALT #### [facility] [address] [place] [address] Dr. Viri Strong RBC 3.65 106/ul Critically low 4.20-5.40 [facility] Comment on above: Performed By: #### B MP, LIPID, AST, TSH, ALT #### [facility] [address] [place] [address] Dr. Viri Strong WBC 5.0 103/ul Normal 4.0-11.0 [facility] Comment on above: Performed By: #### B MP, LIPID, AST, TSH, ALT #### [facility] [address] [place] [address] Dr. Viri Strong GLYCOHEMOGLOBIN A1Con 2021 ADA RECOMMENDATION SEE BELOW Normal [facility] Comment on above: Result Comment: ADA RECOMMENDED LIMIT 4.0 - 6.0 ADA THERAPEUTIC TARGET < 7.0 ACTION SUGGESTED > 7.0 Performed By: #### B MP, LIPID, AST, TSH, ALT #### [facility] [address] [address] [address] Viri Strong Glucose [Mass/Vol] 117 mg/dL Normal [facility] Comment on above: Performed By: #### B MP, LIPID, AST, TSH, ALT #### [facility] [address] [address] [address] Viri Strong HbA1c (Bld) [Mass fraction] 5.7 % Normal 4.5-6.2 [facility] Comment on above: Performed By: #### B MP, LIPID, AST, TSH, ALT #### [facility] [address] [address] [address] Viri Strong LIPID PROFILEon 10-26-2021 CHOL-HDL RATIO NORM SEE BELOW Normal [facility] Comment on above: Result Comment: 3.3 - 4.4 LOW RISK 4.4 - 7.1 AVERAGE RISK 7.1 - 11.0 MODERATE RISK >11.0 HIGH RISK Performed By: #### B MP, LIPID, AST, TSH, ALT #### [facility] [address] [address] [address] Viri Strong Cholesterol [Mass/Vol] 158 mg/dL Normal <=200 [facility] Comment on above: Performed By: #### B MP, LIPID, AST, TSH, ALT #### [facility] [address] [address] [address] Viri Strong Cholesterol in HDL [Mass/Vol] 86 mg/dL Critically high 40-60 [facility] Comment on above: Performed By: #### B MP, LIPID, AST, TSH, ALT #### [facility] [address] [address] [address] Viri Strong Cholesterol in LDL [Mass/Vol] 50.0 mg/dL Normal [facility] Comment on above: Performed By: #### B MP, LIPID, AST, TSH, ALT #### [facility] [address] [address] [address] Viri Strong Cholesterol.total/Cholest ana in HDL [Mass ratio] 1.8 {ratio} Normal [facility] Comment on above: Performed By: #### B MP, LIPID, AST, TSH, ALT #### [facility] [address] [address] [address] Viri Strong HDL NORMAL > or = 60 mg/dl - LOW CARDIOVASCULAR RISK <40 mg/dl - HIGH CARDIOVASCULAR RISK Normal [facility] Comment on above: Performed By: #### B MP, LIPID, AST, TSH, ALT #### [facility] [address] [address] [address] Viri Strong LDL CALC NORMAL SEE BELOW Normal [facility] Comment on above: Result Comment: <100 mg/dl OPTIMAL 100 - 129 mg/dl NEAR OR ABOVE OPTIMAL 130 - 159 mg/dl BORDERLINE HIGH 160 - 189 mg/dl HIGH >190 mg/dl VERY HIGH Performed By: #### B MP, LIPID, AST, TSH, ALT #### [facility] [address] [place] [address] Dr. Viri Strong Triglyceride [Mass/Vol] 110 mg/dL Normal <=150 [facility] Comment on above: Performed By: #### B MP, LIPID, AST, TSH, ALT #### [facility] [address] [address] [address] Viri Strong VLDL CALC 22.0 mg/dL Normal [facility] Comment on above: Performed By: #### B MP, LIPID, AST, TSH, ALT #### [facility] [address] [place] [address] Dr. Viri Strong PROF CHEM 8 (BAS METB)on Anion gap [Moles/Vol] 13.8 mmol/L Normal [facility] Comment on above: Performed By: #### B MP, LIPID, AST, TSH, ALT #### [facility] [address] [place] [address] Dr. Viri Strong Calcium [Mass/Vol] 9.3 mg/dL Normal 8.5-10.1 [facility] Comment on above: Performed By: #### B MP, LIPID, AST, TSH, ALT #### [facility] [address] [place] [address] Dr. Viri Strong Chloride [Moles/Vol] 92 mmol/L Critically low 98-107 [facility] Comment on above: Performed By: #### B MP, LIPID, AST, TSH, ALT #### [facility] [address] [address] [address] Viri Strong CO2 [Moles/Vol] 26.0 mmol/L Normal 21.0-32.0 [facility] Comment on above: Performed By: #### B MP, LIPID, AST, TSH, ALT #### [facility] [address] [address] [address] Viri Strong Creatinine [Mass/Vol] 1.15 mg/dL Critically high 0.55-1.02 [facility] Comment on above: Performed By: #### B MP, LIPID, AST, TSH, ALT #### [facility] [address] [place] [address] Dr. Viri Strong EGFR-AF GIBRALTARIAN 56 mL/min/1.73m2 Critically low >=60 [facility] Comment on above: Performed By: #### B MP, LIPID, AST, TSH, ALT #### [facility] [address] [address] [address] Viri Strong EGFR-NON AF GIBRALTARIAN 46 mL/min/1.73m2 Critically low >=60 [facility] Comment on above: Performed By: #### B MP, LIPID, AST, TSH, ALT #### [facility] [address] [address] [address] Viri Strong Glucose [Mass/Vol] 92 mg/dL Normal 74-106 [facility] Comment on above: Performed By: #### B MP, LIPID, AST, TSH, ALT #### [facility] [address] [address] [address] Viri Strong Potassium [Moles/Vol] 4.8 mmol/L Normal 3.5-5.1 [facility] Comment on above: Performed By: #### B MP, LIPID, AST, TSH, ALT #### [facility] [address] [address] [address] Viri Strong Sodium [Moles/Vol] 127 mmol/L Critically low 136-145 [facility] Comment on above: Performed By: #### B MP, LIPID, AST, TSH, ALT #### [facility] [address] [place] [address] Dr. Viri Strong Urea nitrogen [Mass/Vol] 19.0 mg/dL Critically high 7.0-18 .0 [facility] Comment on above: Performed By: #### B MP, LIPID, AST, TSH, ALT #### [facility] [address] [place] [address] Dr. Viri Strong Urea nitrogen/Creatinine [Mass ratio] 16.5 mg/mg Normal [facility] Comment on above: Performed By: #### B MP, LIPID, AST, TSH, ALT #### [facility] [address] [place] [address] Dr. Viri Strong SGOTon 10-26-2021 AST [Catalytic activity/Vol] 15 U/L Normal 15-37 [facility] Comment on above: Performed By: #### B MP, LIPID, AST, TSH, ALT #### [facility] [address] [place] [address] Dr. Viri Strong SGPTon 10-26-2021 ALT [Catalytic activity/Vol] 25 U/L Normal 14-59 [facility] Comment on above: Performed By: #### B MP, LIPID, AST, TSH, ALT #### [facility] [address] [place] [address] Dr. Viri Strong TSHon 10-26-2021 TSH 1.833 uIU/mL Normal 0.358-3.740 [facility] Comment on above: Performed By: #### B MP, LIPID, AST, TSH, ALT #### [facility] [address] [place] [address] Dr. Viri Strong FREE LIGHT CHAINS PLUS RATIO on 06-03-2021 Free Laplace Lt Chains,S 26.6 mg/L Critically high 3.3-19.4 [facility] Comment on above: Performed By: #### B MP, LIPID, AST, TSH, ALT #### [facility] [address] [place] [address] Dr. Viri Strong Free Lambda Lt Chains,S 19.6 mg/L Normal 5.7-26.3 [facility] Comment on above: Performed By: #### B MP, LIPID, AST, TSH, ALT #### [facility] [address] [place] [address] Dr. Viri Strong Laplace/Lambda Ratio, S 1.36 Normal 0.26-1.65 [facility] Comment on above: Performed By: #### B MP, LIPID, AST, TSH, ALT #### [facility] [address] [place] [address] Dr. Viri Strong IMMUNOFIXATION (MONIKA), URINEo n 06-03-2021 MONIKA Interpretation:U Comment Normal [facility] Comment on above: Result Comment: No m onoclonality detected. Performed By: #### B MP, LIPID, AST, TSH, ALT #### [facility] [address] [place] [address] Dr. Viri Strong PROTEIN ELECTROPHERESIS URIN E RANDOMon 06-03-2021 Albumin, U 60.9 % Normal [facility] Comment on above: Performed By: #### U PTE #### [facility] [address] [place] [address] Dr. Viri Strong Alpha-1 Globulin U 3.9 % Normal [facility] Comment on above: Performed By: #### U PTE #### [facility] [address] [place] [address] Dr. Viri Strong Alpha-2 Glubulin U 8.2 % Normal [facility] Comment on above: Performed By: #### U PTE #### [facility] [address] [place] [address] Dr. Viri Strong Beta Globulin, U 17.3 % Normal [facility] Comment on above: Performed By: #### U PTE #### [facility] [address] [place] [address] Dr. Viri Strong Gamma Globulin U 9.7 % Normal [facility] Comment on above: Performed By: #### U PTE #### [facility] [address] [address] [address] Viri Strong M-Ciro, % Not Observed Normal Not Observed [facility] Comment on above: Performed By: #### U PTE #### [facility] [address] [address] [address] Viri Strong PDF . Normal [facility] Comment on above: Performed By: #### U PTE #### [facility] [address] [address] [address] Viri Strong Please note: Comment Normal [facility] Comment on above: Result Comment: Prot ein electrophoresis scan will follow via computer, mail, or tile layer supervisor delivery. Performed By: #### U PTE #### [facility] [address] [place] [address] Dr. Viri Strong Protein (U) [Mass/Vol] 12.2 mg/dL Normal Not Estab. Th [facility] Comment on above: Performed By: #### U PTE #### [facility] [address] [place] [address] Dr. Viri Strong HEP B SURFACE AGon HBsAg Screen Negative Normal Negative [facility] Comment on above: Performed By: #### B MP, LIPID, AST, TSH, ALT #### [facility] [address] [place] [address] Dr. Viri Strong HEPATITIS B SURFACE ANTIBODY , QUANTon 06-02-2021 Hepatitis B Surf AB Quant <3.1 Critically low Immuni ty>9.9 [facility] Comment on above: Result Comment: Stat us of Immunity Anti-HBs Level Inconsistent with Immunity 0.0 - 9.9 Consistent with Immunity >9.9 Performed By: #### B MP, LIPID, AST, TSH, ALT #### [facility] [address] [place] [address] Dr. Viri Strong HEPATITIS C VIRUS AB W/ REFL EX QUANTon 06-02-2021 HCV AB <0.1 Normal 0.0-0.9 [facility] Comment on above: Performed By: #### H CVPCRR #### [facility] [address] [address] [address] Viri Strong Interpretation: Comment Normal [facility] Comment on above: Result Comment: Nega tive Not infected with HCV, unless recent infection is suspected or other evidence exists to indicate HCV infection. Performed By: #### H CVPCRR #### [facility] [address] [address] [address] Viri Strong IMMUNOFIXATION (MONIKA), SERUMo n 06-02-2021 IMMUNOFIXATION RESULT Comment Normal [facility] Comment on above: Result Comment: No m onoclonality detected. Performed By: #### B MP, LIPID, AST, TSH, ALT #### [facility] [address] [place] [address] Dr. Viri Strong Immunoglobulin A, Qn, Serum 152 mg/dL Normal 64-422 [facility] Comment on above: Performed By: #### B MP, LIPID, AST, TSH, ALT #### [facility] [address] [address] [address] Viri Strong Immunoglobulin G, Qn, Serum 510 mg/dL Critically low 586-1602 [facility] Comment on above: Performed By: #### B MP, LIPID, AST, TSH, ALT #### [facility] [address] [place] [address] Dr. Viri Strong Immunoglobulin M, Qn, Serum 68 mg/dL Normal 26-217 [facility] Comment on above: Performed By: #### B MP, LIPID, AST, TSH, ALT #### [facility] [address] [place] [address] Dr. Viri Strong PROTEIN ELECTROPHERESISon Albumin [Mass/Vol] 4.0 g/dL Normal 2.9-4.4 [facility] Comment on above: Performed By: #### B MP, LIPID, AST, TSH, ALT #### [facility] [address] [place] [address] Dr. Viri Strong Albumin/Globulin [Mass ratio] 1.4 {ratio} Normal 0.7-1.7 [facility] Comment on above: Performed By: #### B MP, LIPID, AST, TSH, ALT #### [facility] [address] [place] [address] Dr. Viri Strong Vncsx-3-Hrakhcmw 0.3 g/dL Normal 0.0-0.4 [facility] Comment on above: Performed By: #### B MP, LIPID, AST, TSH, ALT #### [facility] [address] [place] [address] Dr. Viri Strong Swrhe-4-Jvbepnuf 0.9 g/dL Normal 0.4-1.0 [facility] Comment on above: Performed By: #### B MP, LIPID, AST, TSH, ALT #### [facility] [address] [place] [address] Dr. Viri Strong Beta Globulin 1.1 g/dL Normal 0.7-1.3 [facility] Comment on above: Performed By: #### B MP, LIPID, AST, TSH, ALT #### [facility] [address] [place] [address] Dr. Viri Strong Gamma Globulin 0.6 g/dL Normal 0.4-1.8 [facility] Comment on above: Performed By: #### B MP, LIPID, AST, TSH, ALT #### [facility] [address] [place] [address] Dr. Viri Strong Globulin (S) [Mass/Vol] 2.9 g/dL Normal 2.2-3.9 [facility] Comment on above: Performed By: #### B MP, LIPID, AST, TSH, ALT #### [facility] [address] [place] [address] Dr. Viri Strong M-Ciro Not Observed Normal Not Observed [facility] Comment on above: Performed By: #### B MP, LIPID, AST, TSH, ALT #### [facility] [address] [place] [address] Dr. Viri Strong PDF . Normal [facility] Comment on above: Performed By: #### B MP, LIPID, AST, TSH, ALT #### [facility] [address] [address] [address] Viri Strong Please note: Comment Normal [facility] Comment on above: Result Comment: Prot ein electrophoresis scan will follow via computer, mail, or tile layer supervisor delivery. Performed By: #### B MP, LIPID, AST, TSH, ALT #### [facility] [address] [address] [address] Viri Strong Protein [Mass/Vol] 6.9 g/dL Normal 6.0-8.5 [facility] Comment on above: Performed By: #### B MP, LIPID, AST, TSH, ALT #### [facility] [address] [address] [address] Viri Strong PTH INTACTon 06-02-2021 PTH, Intact 27 pg/mL Normal 15-65 [facility] Comment on above: Performed By: #### B MP, LIPID, AST, TSH, ALT #### [facility] [address] [place] [address] Dr. Viri Strong FERRITINon 06-01-2021 Ferritin [Mass/Vol] 48.0 ng/mL Normal 11.1-264.0 [facility] Comment on above: Performed By: #### B MP, LIPID, AST, TSH, ALT #### [facility] [address] [place] [address] Dr. Viri Strong HEMOGRAM AND PLATELon 2021 Hematocrit (Bld) [Volume fraction] 33.9 % Critically low 36.0-48.0 [facility] Comment on above: Performed By: #### B MP, LIPID, AST, TSH, ALT #### [facility] [address] [place] [address] Dr. Viri Strong Hemoglobin (Bld) [Mass/Vol] 11.1 g/dL Critically low 12.0-16.0 [facility] Comment on above: Performed By: #### B MP, LIPID, AST, TSH, ALT #### [facility] [address] [place] [address] Dr. Viri Strong MCH (RBC) [Entitic mass] 29.8 pg Normal 26.7-34.0 [facility] Comment on above: Performed By: #### B MP, LIPID, AST, TSH, ALT #### [facility] [address] [place] [address] Dr. Viri Strong MCHC (RBC) [Mass/Vol] 32.7 g/dL Normal 29.9-35.2 [facility] Comment on above: Performed By: #### B MP, LIPID, AST, TSH, ALT #### [facility] [address] [place] [address] Dr. Viri Strong MCV (RBC) [Entitic vol] 90.9 fL Normal 81.0-99.0 [facility] Comment on above: Performed By: #### B MP, LIPID, AST, TSH, ALT #### [facility] [address] [place] [address] Dr. Viri Strong PLT 240 103/ul Normal 150-450 [facility] Comment on above: Performed By: #### B MP, LIPID, AST, TSH, ALT #### [facility] [address] [place] [address] Dr. Viri Strong RBC 3.73 106/ul Critically low 4.20-5.40 [facility] Comment on above: Performed By: #### B MP, LIPID, AST, TSH, ALT #### [facility] [address] [place] [address] Dr. Viri Strong WBC 7.8 103/ul Normal 4.0-11.0 [facility] Comment on above: Performed By: #### B MP, LIPID, AST, TSH, ALT #### [facility] [address] [place] [address] Dr. Viri Strong IRON AND TIBCon 06-01-2021 % SATURATION 18.0 % Normal [facility] Comment on above: Performed By: #### B MP, LIPID, AST, TSH, ALT #### [facility] [address] [place] [address] Dr. Viri Strong Iron [Mass/Vol] 58.0 ug/dL Normal 37.0-170.0 [facility] Comment on above: Performed By: #### B MP, LIPID, AST, TSH, ALT #### [facility] [address] [place] [address] Dr. Viri Strong TIBC DIRECT 323.0 ug/dL Normal 261.0-497.0 [facility] Comment on above: Performed By: #### B MP, LIPID, AST, TSH, ALT #### [facility] [address] [place] [address] Dr. Viri Strong MAGNESIUMon 06-01-2021 Magnesium [Mass/Vol] 2.1 mg/dL Normal 1.6-2.3 [facility] Comment on above: Performed By: #### B MP, LIPID, AST, TSH, ALT #### [facility] [address] [place] [address] Dr. Viri Strong RENAL FUNCTION PANELon 06-01 Albumin [Mass/Vol] 4.4 g/dL Normal 3.4-5.0 [facility] Comment on above: Performed By: #### B MP, LIPID, AST, TSH, ALT #### [facility] [address] [place] [address] Dr. Viri Strong Calcium [Mass/Vol] 10.0 mg/dL Normal 8.5-10.1 [facility] Comment on above: Performed By: #### B MP, LIPID, AST, TSH, ALT #### [facility] [address] [place] [address] Dr. Viri Strong Chloride [Moles/Vol] 103 mmol/L Normal 98-107 [facility] Comment on above: Performed By: #### B MP, LIPID, AST, TSH, ALT #### [facility] [address] [place] [address] Dr. Viri Strong CO2 [Moles/Vol] 26.8 mmol/L Normal 22.0-30.0 [facility] Comment on above: Performed By: #### B MP, LIPID, AST, TSH, ALT #### [facility] [address] [place] [address] Dr. Viri Strong Creatinine [Mass/Vol] 1.18 mg/dL Critically high 0.52-1.04 [facility] Comment on above: Performed By: #### B MP, LIPID, AST, TSH, ALT #### [facility] [address] [place] [address] Dr. Viri Strong EGFR-AF GIBRALTARIAN 54 mL/min/1.73m2 Critically low >=60 [facility] Comment on above: Performed By: #### B MP, LIPID, AST, TSH, ALT #### [facility] [address] [place] [address] Dr. Viri Strong EGFR-NON AF GIBRALTARIAN 45 mL/min/1.73m2 Critically low >=60 [facility] Comment on above: Performed By: #### B MP, LIPID, AST, TSH, ALT #### [facility] [address] [place] [address] Dr. Viri Strong Glucose [Mass/Vol] 93 mg/dL Normal 74-106 [facility] Comment on above: Performed By: #### B MP, LIPID, AST, TSH, ALT #### [facility] [address] [place] [address] Dr. Viri Strong Phosphate [Mass/Vol] 4.1 mg/dL Normal 2.5-4.5 [facility] Comment on above: Performed By: #### B MP, LIPID, AST, TSH, ALT #### [facility] [address] [place] [address] Dr. Viri Strong Potassium [Moles/Vol] 4.8 mmol/L Normal 3.4-5.0 [facility] Comment on above: Performed By: #### B MP, LIPID, AST, TSH, ALT #### [facility] [address] [place] [address] Dr. Viri Strong Sodium [Moles/Vol] 140 mmol/L Normal 137-145 [facility] Comment on above: Performed By: #### B MP, LIPID, AST, TSH, ALT #### [facility] [address] [place] [address] Dr. Viri Strong Urea nitrogen [Mass/Vol] 24.0 mg/dL Critically high 7.0-18 .0 [facility] Comment on above: Performed By: #### B MP, LIPID, AST, TSH, ALT #### [facility] [address] [place] [address] Dr. Viri Strong UA RANDOM W/MICROSCOPICon BACTERIA TRACE Abnormal NONE SEEN [facility] Comment on above: Performed By: #### B MP, LIPID, AST, TSH, ALT #### [facility] [address] [place] [address] Dr. Viri Strong Bilirubin Ql (U) Negative Normal NEGATIVE [facility] Comment on above: Performed By: #### B MP, LIPID, AST, TSH, ALT #### [facility] [address] [place] [address] Dr. Viri Strong CAST NONE SEEN Normal NONE SEEN [facility] Comment on above: Performed By: #### B MP, LIPID, AST, TSH, ALT #### [facility] [address] [place] [address] Dr. Viri Strong Clarity (U) CLEAR Normal CLEAR [facility] Comment on above: Performed By: #### B MP, LIPID, AST, TSH, ALT #### [facility] [address] [place] [address] Dr. Viri Strong Color (U) LT. YELLOW Normal YELLOW [facility] Comment on above: Performed By: #### B MP, LIPID, AST, TSH, ALT #### [facility] [address] [place] [address] Dr. Viri Strong Crystals LM Nom (Urine sed) NONE SEEN Normal NONE SEEN [facility] Comment on above: Performed By: #### B MP, LIPID, AST, TSH, ALT #### [facility] [address] [place] [address] Dr. Viri Strong Epithelial cells LM Ql (Urine sed) RARE Normal NONE SEEN /RARE [facility] Comment on above: Performed By: #### B MP, LIPID, AST, TSH, ALT #### [facility] [address] [place] [address] Dr. Viri Strong Glucose Ql (U) Negative Normal NEGATIVE [facility] Comment on above: Performed By: #### B MP, LIPID, AST, TSH, ALT #### [facility] [address] [place] [address] Dr. Viri Strong Hemoglobin Ql (U) Negative Normal NEGATIVE [facility] Comment on above: Performed By: #### B MP, LIPID, AST, TSH, ALT #### [facility] [address] [place] [address] Dr. Viri Strong Ketones Ql (U) Negative Normal NEGATIVE [facility] Comment on above: Performed By: #### B MP, LIPID, AST, TSH, ALT #### [facility] [address] [place] [address] Dr. Viri Strong LEUKOCYTES MODERATE Abnormal NEGATIVE [facility] Comment on above: Performed By: #### B MP, LIPID, AST, TSH, ALT #### [facility] [address] [place] [address] Dr. Viri Strong MUCOUS NONE SEEN Normal NONE SEEN [facility] Comment on above: Performed By: #### B MP, LIPID, AST, TSH, ALT #### [facility] [address] [place] [address] Dr. Viri Strong Nitrite Ql (U) Negative Normal NEGATIVE The [facility] Comment on above: Performed By: #### B MP, LIPID, AST, TSH, ALT #### [facility] [address] [place] [address] Dr. Viri Strong pH (U) 6.0 [pH] Normal 5-9 [facility] Comment on above: Performed By: #### B MP, LIPID, AST, TSH, ALT #### [facility] [address] [place] [address] Dr. Viri Strong RBC 0-2 Normal 0-2 [facility] Comment on above: Performed By: #### B MP, LIPID, AST, TSH, ALT #### [facility] [address] [place] [address] Dr. Viri Strong SPEC GRAVITY 1.010 Normal 1.005-<=1.02 5 [facility] Comment on above: Performed By: #### B MP, LIPID, AST, TSH, ALT #### [facility] [address] [address] [address] Viri Strong UA PROTEIN Negative Normal NEGATIVE/ TRACE [facility] Comment on above: Performed By: #### B MP, LIPID, AST, TSH, ALT #### [facility] [address] [place] [address] Dr. Viri Strong Urobilinogen Qn (U) 0.2 {Alem'U}/dL Normal 0.2 - 1. 0 [facility] Comment on above: Performed By: #### B MP, LIPID, AST, TSH, ALT #### [facility] [address] [place] [address] Dr. Viri Strong WBC 2-5 Abnormal NONE SEEN [facility] Comment on above: Performed By: #### B MP, LIPID, AST, TSH, ALT #### [facility] [address] [place] [address] Dr. Viri Strong URIC ACID SERUMon 06-01-2021 Urate [Mass/Vol] 7.4 mg/dL Critically high 2.5-6.2 [facility] Comment on above: Performed By: #### B MP, LIPID, AST, TSH, ALT #### [facility] [address] [place] [address] Dr. Viri Strong URINE T PROTEIN CREAT RATIOo n 06-01-2021 Protein (U) [Mass/Vol] 15.1 mg/dL Critically high <=12.0 [facility] Comment on above: Performed By: #### B MP, LIPID, AST, TSH, ALT #### [facility] [address] [place] [address] Dr. Viri Strong UR PROT CREAT RAT 0.29 Normal [facility] Comment on above: Performed By: #### B MP, LIPID, AST, TSH, ALT #### [facility] [address] [place] [address] Dr. Viri Strong URINE CREAT 52.27 mg/dL Normal 20.00-300.00 [facility] Comment on above: Performed By: #### B MP, LIPID, AST, TSH, ALT #### [facility] [address] [place] [address] Dr. Viri Strong VITAMIN D 25 OHon 06-01-2021 VIT D 25-OH 38.9 ng/mL Normal [facility] Comment on above: Performed By: #### B MP, LIPID, AST, TSH, ALT #### [facility] [address] [address] [address] Viri Strong VIT D RANGES SEE BELOW Normal [facility] Comment on above: Result Comment: <20 ng/mL Vit D deficient 20 - <30 ng/mL Vit D insufficient 30 - 100 ng/mL Vit D sufficient >100 ng/mL Potential Toxicity Performed By: #### B MP, LIPID, AST, TSH, ALT #### [facility] [address] [address] [address] Viri Strong Reminderson 06-28-2019 Reminders --- From: Donna Fiore MA To: EU - Clinical; Sent: 01/16/2019 14:46:43 EST Show up: 04/16/2019 07:00:00 EST Subject: Ambulatory Reminder Due Date/Time: 04/30/2019 07:00:00 EST Reminder/Recall [place] [place]. Has f/u w/PRW on 05/01/18. Renal US & CXR scheduled for 04/15/18 8am @[facility]. No results in chart yet Per [facility] central scheduling, appt was cancelled and Pt stated she would call back to reschedule. Appt was cancelled 04/12/2019. Pt being sent cert letter. See other message pt r/s for renal us and cxr 07/02/2019 @ 8:45am, [facility]. F/u appt 07/08/19 for results.LG Normal [facility] Reminderson 01-21-2019 Reminders --- From: Donna Fiore MA To: EU - Recalls Michelle; Sent: 01/16/2019 14:06:32 EST Show up: 01/16/2019 07:00:00 EST Subject: needs Renal US & CXR Due Date/Time: 02/02/2019 07:00:00 EST Reminder/Recall pt needs scheduled for 2yr f/u w/Renal US & CXR. done Normal [facility] Vital Signs Date Time Vital Sign Value Performing Clinician Facility 10-10-2023 13:10-0400 Body height 154.94 cm MD Misael Perez Work Phone: [facility] 10-10-2023 13:10-0400 Body mass index (BMI) [Ratio] 34 kg/m2 MD Misael Perez Work Phone: [facility] 10-10-2023 13:10-0400 Body weight 81.64 kg MD Misael Perez Work Phone: [facility] 09-25-2023 09:59-0400 Body height 154.94 cm MD Misael Perez Work Phone: [facility] 09-25-2023 09:59-0400 Body mass index (BMI) [Ratio] 34.2 kg/m2 MD Misael Perez Work Phone: [facility] 09-25-2023 09:59-0400 Body weight 82.1 kg MD Misael Perez Work Phone: [facility] 09-25-2023 09:59-0400 Diastolic blood pressure 88 mm[Hg] MD Misael Perez Work Phone: [facility] 09-25-2023 09:59-0400 Heart rate 60 /min MD Misael Perez Work Phone: [facility] 09-25-2023 09:59-0400 Systolic blood pressure 138 mm[Hg] MD Misael Perez Work Phone: [facility] 08-21-2023 10:18-0400 Body height 154.94 cm MD Misael Perez Work Phone: [facility] 08-21-2023 10:18-0400 Body mass index (BMI) [Ratio] 34.1 kg/m2 MD Misael Perez Work Phone: [facility] 08-21-2023 10:18-0400 Body temperature 96.6 [degF] MD Misael Perez Work Phone: [facility] 08-21-2023 10:18-0400 Body weight 82 kg MD Misael Perez Work Phone: [facility] 08-21-2023 10:18-0400 Diastolic blood pressure 55 mm[Hg] MD Misael Perez Work Phone: [facility] 08-21-2023 10:18-0400 Heart rate 54 /min MD Misael Perez Work Phone: [facility] 08-21-2023 10:18-0400 Respiratory rate 16 /min MD Misael Perez Work Phone: [facility] 08-21-2023 10:18-0400 SaO2% (BldA) [Mass fraction] 96 % MD Misael Perez Work Phone: [facility] 08-21-2023 10:18-0400 Systolic blood pressure 117 mm[Hg] MD Misael Perez Work Phone: [facility] 08-15-2023 14:00-0400 Body temperature 97.9 [degF] MD Misael Perez Work Phone: [facility] 08-15-2023 14:00-0400 Diastolic blood pressure 81 mm[Hg] MD Misael Perez Work Phone: [facility] 08-15-2023 14:00-0400 Heart rate 58 /min MD Misael Perez Work Phone: [facility] 08-15-2023 14:00-0400 Respiratory rate 18 /min MD Misael Perez Work Phone: [facility] 08-15-2023 14:00-0400 SaO2% (BldA) [Mass fraction] 96 % MD Misael Perez Work Phone: [facility] 08-15-2023 14:00-0400 Systolic blood pressure 135 mm[Hg] MD Misael Perez Work Phone: [facility] 08-15-2023 06:00-0400 Body weight 83.9 kg MD Misael Perez Work Phone: [facility] 08-14-2023 21:53-0400 Body height 154.94 cm MD Misael Perez Work Phone: [facility] 08-14-2023 20:03-0400 Diastolic blood pressure 72 mm[Hg] MD Misael Perez Work Phone: [facility] 08-14-2023 20:03-0400 Heart rate 62 /min MD Misael Perez Work Phone: [facility] 08-14-2023 20:03-0400 Respiratory rate 21 /min MD Misael Perez Work Phone: [facility] 08-14-2023 20:03-0400 SaO2% (BldA) [Mass fraction] 98 % MD Misael Perez Work Phone: [facility] 08-14-2023 20:03-0400 Systolic blood pressure 172 mm[Hg] MD Misael Perez Work Phone: [facility] 08-14-2023 16:28-0400 Body height 154.94 cm MD Misael Perez Work Phone: [facility] 08-14-2023 16:28-0400 Body temperature 98.1 [degF] MD Misael Perez Work Phone: [facility] 08-14-2023 16:28-0400 Body weight 83.9 kg MD Misael Perez Work Phone: [facility] 07-18-2023 10:07-0400 Body height 160.02 cm MD Misael Perez Work Phone: [facility] 07-18-2023 10:07-0400 Body mass index (BMI) [Ratio] 33.3 kg/m2 MD Misael Perez Work Phone: [facility] 07-18-2023 10:07-0400 Body temperature 96.4 [degF] MD Misael Perez Work Phone: [facility] 07-18-2023 10:07-0400 Body weight 85.47 kg MD Misael Perez Work Phone: [facility] 07-18-2023 10:07-0400 Diastolic blood pressure 64 mm[Hg] MD Misael Perez Work Phone: [facility] 07-18-2023 10:07-0400 Heart rate 68 /min MD Misael Perez Work Phone: [facility] 07-18-2023 10:07-0400 Respiratory rate 16 /min MD Misael Perez Work Phone: [facility] 07-18-2023 10:07-0400 SaO2% (BldA) [Mass fraction] 94 % MD Misael Perez Work Phone: [facility] 07-18-2023 10:07-0400 Systolic blood pressure 99 mm[Hg] MD Misael Perez Work Phone: [facility] 07-13-2023 11:55-0400 Body height 160.[address] [facility] 07-13-2023 11:55-0400 Body mass index (BMI) [Ratio] 33.3 kg/m2 [facility] 07-13-2023 11:55-0400 Body temperature 97.3 [degF] [facility] 07-13-2023 11:55-0400 Body weight 85.[address] [facility] 07-13-2023 11:55-0400 Diastolic blood pressure 70 mm[Hg] [facility] 07-13-2023 11:55-0400 Heart rate 55 /min [facility] 07-13-2023 11:55-0400 Respiratory rate 16 /min [facility] 07-13-2023 11:55-0400 SaO2% (BldA) [Mass fraction] 95 % [facility] 07-13-2023 11:55-0400 Systolic blood pressure 102 mm[Hg] [facility] 04-18-2023 10:32-0500 Body height 160 cm Felipe [employer] Work Phone: [facility] [employer] 04-18-2023 10:32-0500 Body mass index (BMI) [Ratio] 33.48 kg/m2 [employer] Work Phone: [facility] [employer] 04-18-2023 10:32-0500 Body weight 85.73 kg Manipal Acunova Phone: [facility] [employer] 03-14-2023 15:20-0500 Body height 160.02 cm Aleyda Dennis Other [employer] Other 03-14-2023 15:20-0500 Body mass index (BMI) [Ratio] 33.19 kg/m2 Aleyda Dennis Other [employer] Other 03-14-2023 15:20-0500 Body temperature 96.6 [degF] Aleyda Dennis Other [employer] Other 03-14-2023 15:20-0500 Body weight 85 kg Aleyda Dennis Other [employer] Other 03-14-2023 15:20-0500 Diastolic blood pressure 75 mm[Hg] Aleyda Dennis Other [employer] Other 03-14-2023 15:20-0500 Respiratory rate 18 /min Aleyda Dennis Other [employer] Other 03-14-2023 15:20-0500 SaO2% (BldA) [Mass fraction] 96 % Aleyda Dennis Other [employer] Other 03-14-2023 15:20-0500 Systolic blood pressure 123 mm[Hg] Aleyda Dennis Other [employer] Other 03-07-2023 10:28-0500 [facility] 10:28-0500 Body mass index (BMI) [Ratio] 33.3 kg/m2 [facility] 03-07-2023 10:28-0500 Body weight 85.28 kg [facility] 02-21-2023 10:40-0500 Body height 160.02 cm Aleyda Dennis Other [employer] Other 02-21-2023 10:40-0500 Body mass index (BMI) [Ratio] 33.9 kg/m2 Aleyda Dennis Other [employer] Other 02-21-2023 10:40-0500 Body temperature 96.2 [degF] Aleyda Dennis Other [employer] Other 02-21-2023 10:40-0500 Body weight 86.82 kg Aleyda Dennis Other [employer] Other 02-21-2023 10:40-0500 Diastolic blood pressure 71 mm[Hg] Aleyda Dennis Other [employer] Other 02-21-2023 10:40-0500 Respiratory rate 18 /min Aleyda Dennis Other [employer] Other 02-21-2023 10:40-0500 SaO2% (BldA) [Mass fraction] 96 % Aleyda Dennis Other [employer] Other 02-21-2023 10:40-0500 Systolic blood pressure 108 mm[Hg] Aleyda Dennis Other [employer] Other 08-04-2022 12:00-0400 Body height 160.02 cm Aleyda Dennis Other [employer] Other 08-04-2022 12:00-0400 Body mass index (BMI) [Ratio] 33.69 kg/m2 Aleyda Dennis Other [employer] Other 08-04-2022 12:00-0400 Body temperature 96.8 [degF] Aleyda Dennsi Other [employer] Other 08-04-2022 12:00-0400 Body weight 86.27 kg Aleyda Dennis Other [employer] Other 08-04-2022 12:00-0400 Diastolic blood pressure 86 mm[Hg] Aleyda Dennis Other [employer] Other 08-04-2022 12:00-0400 Respiratory rate 18 /min Aleyda Dennis Other [employer] Other 08-04-2022 12:00-0400 SaO2% (BldA) [Mass fraction] 95 % Aleyda Dennis Other [employer] Other 08-04-2022 12:00-0400 Systolic blood pressure 136 mm[Hg] Aleyda Dennis Other [employer] Other 01-13-2022 14:00-0500 Body height 160.02 cm Aleyda Dennis Other [employer] Other 01-13-2022 14:00-0500 Body mass index (BMI) [Ratio] 31.99 kg/m2 Aleyda Dennis Other [employer] Other 01-13-2022 14:00-0500 Body temperature 96.3 [degF] Aleyda Dennis Other [employer] Other 01-13-2022 14:00-0500 Body weight 81.92 kg Aleyda Dennis Other [employer] Other 01-13-2022 14:00-0500 Diastolic blood pressure 77 mm[Hg] Aleyda Dennis Other [employer] Other 01-13-2022 14:00-0500 Respiratory rate 18 /min Aleyda Dennis Other [employer] Other 01-13-2022 14:00-0500 SaO2% (BldA) [Mass fraction] 96 % Aleyda Dennis Other [employer] Other 01-13-2022 14:00-0500 Systolic blood pressure 129 mm[Hg] Aleyda Dennis Other [employer] Other 12-10-2020 11:40-0400 Body height 160.02 cm Aleyda Dennis Other [employer] Other 12-10-2020 11:40-0400 Body mass index (BMI) [Ratio] 32.98 kg/m2 Aleyda Dennis Other [employer] Other 12-10-2020 11:40-0400 Body temperature 96 [degF] Aleyda Dennis Other [employer] Other 12-10-2020 11:40-0400 Body weight 84.46 kg Aleyda Dennis Other [employer] Other 12-10-2020 11:40-0400 Diastolic blood pressure 80 mm[Hg] Aleyda Dennis Other [employer] Other 12-10-2020 11:40-0400 Respiratory rate 18 /min Aleyda Dennis Other [employer] Other 12-10-2020 11:40-0400 SaO2% (BldA) [Mass fraction] 96 % Aleyda Dennis Other [employer] Other 12-10-2020 11:40-0400 Systolic blood pressure 139 mm[Hg] Aleyda Dennis Other [employer] Other Encounters Encounter Date Encounter Type Care Provider Facility Start: 10-30-2023 End: 10-30-2023 Patient encounter procedure MD Misael Perez Work Phone: [facility] Work Phone: Start: 10-30-2023 End: 10-30-2023 ambulatory MD Misael Perez Work Phone: [facility] Work Phone: Start: 10-11-2023 End: 10-11-2023 ambulatory CHERY VELA Not Available Start: 10-10-2023 End: 10-10-2023 ambulatory MD Misael Perez Work Phone: [facility] Work Phone: Start: 10-10-2023 End: 10-10-2023 Patient encounter procedure MD Misael Perez Work Phone: [facility] Work Phone: Start: 09-25-2023 End: 09-25-2023 ambulatory MD Misael Perez Work Phone: [facility] Work Phone: Start: 09-25-2023 End: 09-25-2023 Patient encounter procedure MD Misael Perez Work Phone: [facility] Work Phone: Start: 09-18-2023 Non-patient / Non-visit MD Natalie Perez Work Phone: [facility] Work Phone: Start: 09-18-2023 End: 09-18-2023 ambulatory [facility] Start: 08-31-2023 End: 08-31-2023 ambulatory JL PEPE Not Available Start: 08-24-2023 End: 08-24-2023 ambulatory YULY VALDERRAMA Not Available Start: 08-24-2023 End: 08-24-2023 ambulatory FELIPE SCHAEFER Not Available Start: 08-22-2023 End: 08-22-2023 ambulatory MISAEL PEREZ Not Available Start: 08-22-2023 End: 08-22-2023 ambulatory JL PEPE Not Available Start: 08-21-2023 End: 08-21-2023 ambulatory MD Misael Perez Work Phone: [facility] Work Phone: Start: 08-21-2023 End: 08-21-2023 Patient encounter procedure MD Misael Perez Work Phone: [facility] Ne[facility] Work Phone: Start: 08-17-2023 End: 08-17-2023 ambulatory JL PEPE Not Available Start: 08-15-2023 End: 08-15-2023 Non-patient / Non-visit MD Misael Perez Work Phone: [facility] Nephrology Work Phone: Start: 08-14-2023 End: 08-15-2023 ambulatory Misael Perez Facility:[facility] Start: 08-14-2023 End: 08-15-2023 Evaluation and management of inpatient MD Misael Perez Work Phone: [facility] [place] [facility] Work Phone: Start: 08-14-2023 End: 08-15-2023 observation encounter MD Misael Perez Work Phone: [facility] Work Phone: Start: 08-14-2023 Non-patient / Non-visit MD Natalie Perez Work Phone: [facility] Work Phone: Start: 08-11-2023 End: 08-11-2023 ambulatory JL PEPE Not Available Start: 08-09-2023 End: 08-09-2023 ambulatory BELEN PATRICK Not Available Start: 07-27-2023 End: 07-27-2023 ambulatory FELIPE SCHAEFER Not Available Start: 07-27-2023 End: 07-27-2023 ambulatory SHAIKH LYNN Not Available Start: 07-21-2023 End: 07-21-2023 Evaluation and management of inpatient HERMAN JORGE [facility] Start: 07-19-2023 End: 07-20-2023 ambulatory FELIPE SCHAEFER [facility] Start: 07-18-2023 End: 07-18-2023 Patient encounter procedure MD Misael Perez Work Phone: [facility] Nephrology Work Phone: Start: 07-13-2023 End: 07-13-2023 ambulatory [facility] Work Phone: Start: 07-13-2023 End: 07-13-2023 Patient encounter procedure [facility] [facility] Nephrology [place] Work Phone: Start: 07-11-2023 End: 07-11-2023 ambulatory [facility] Start: 07-06-2023 Non-patient / Non-visit [facility] Work Phone: Start: 06-30-2023 End: 06-30-2023 ambulatory MISAEL PEREZ Not Available Start: 06-22-2023 End: 06-22-2023 ambulatory [facility] Start: 06-22-2023 Encounter for other preprocedural examination [facility] Start: 06-22-2023 End: 06-22-2023 [facility] Start: 06-06-2023 End: 06-06-2023 ambulatory MISAEL PEREZ Not Available Start: 05-02-2023 End: 05-02-2023 ambulatory YULY VALDERRAMA Not Available Start: 04-19-2023 External Result Encounter Misael Perez MD Work Phone: [facility] External Department Unsolicited Start: 04-19-2023 External Result Encounter Misael Perez MD Work Phone: [facility] External Department Unsolicited Start: 04-19-2023 End: 04-19-2023 ambulatory MISAEL PEREZ [facility] Start: 04-18-2023 Telephone encounter Misael whitlock MD Work Phone: [facility] Start: 04-18-2023 End: 04-18-2023 Follow-up encounter Felipe Schaefer DO Work Phone: [facility] Comment on above: Chronic pain of righ t knee (Primary Dx); Arthritis of right knee; Complex tear of medial meniscus of right knee as current injury, initial encounter; Other tear of lateral meniscus of right knee as current injury, initial encounter Start: 04-18-2023 End: 04-18-2023 ambulatory FELIPE Armand SCHAEFER Not Available Start: 04-12-2023 End: 04-12-2023 ambulatory VALERY Jamie ANAYAING Not Available Start: 04-10-2023 Bamboo flowsheet Valery Jordan g CONSULTING ANALYST Work Phone: [facility] Start: 04-10-2023 Bamboo flowsheet Valery Jordan g CONSULTING ANALYST Work Phone: [facility] Start: 04-10-2023 End: 04-10-2023 Office outpatient visit 15 minutes Valery Garcia CONSULTING ANALYST Work Phone: [facility] Comment on above: Chronic pain of righ t knee (Primary Dx); Arthritis of right knee; Internal derangement of right knee Start: 04-10-2023 End: 04-10-2023 ambulatory VALERY Ayala APLING Not Available Start: 03-14-2023 End: 03-14-2023 ambulatory Aleyda Dennis Other [employer] Other Start: 03-14-2023 Office outpatient vi sit 15 minutes Aleyda Dennis [facility] Start: 03-13-2023 End: 03-13-2023 ambulatory Aleyda Dennis Other [employer] Other Start: 03-13-2023 Telephone encounter Aleyda Dennis [facility] Start: 03-08-2023 End: 03-09-2023 Evaluation and management of inpatient [facility] Start: 03-07-2023 End: 03-07-2023 ambulatory [facility] Pat Phone Call Provider 1 [facility] - Pre Admit Start: 02-22-2023 End: 02-22-2023 ambulatory VALERY Jamie APLING Not Available Start: 02-21-2023 (INJECTION) INJECTION [facility] Dennis [facility] Start: 02-21-2023 End: 02-21-2023 ambulatory Aleyda Dennis Other [employer] Other Start: 02-20-2023 End: 02-20-2023 ambulatory Aleyda Dennis Other [employer] Other Start: 02-20-2023 Telephone encounter Aleyda Dennis [facility] Start: 11-23-2022 End: 11-23-2022 ambulatory Aleyda Dennis Other [employer] Other Start: 11-23-2022 Telephone encounter Aleyda Dennis [facility] Start: 10-25-2022 End: 10-25-2022 ambulatory Aleyda Dennis Other [employer] Other Start: 10-25-2022 Telephone encounter Aleyda Dennis [facility] Start: 09-12-2022 End: 09-12-2022 ambulatory Aleyda Dennis Other [employer] Other Start: 09-12-2022 Telephone encounter Aleyda Dennis [facility] Start: 08-05-2022 End: 08-05-2022 ambulatory Aleyda Dennis Other [employer] Other Start: 08-05-2022 Telephone encounter Aleyda Dennis [facility] Start: 08-04-2022 End: 08-04-2022 ambulatory Aleyda Dennis Other [employer] Other Start: 08-04-2022 Office outpatient vi sit 25 minutes Aleyda Dennis [facility] [place] Start: 04-25-2022 End: 04-26-[address] MISAEL PEREZ Facility:[facility] Start: 03-15-2022 End: 03-16-2022 ambulatory ALEYDA DENNIS Facility:[facility] Start: 03-08-2022 End: 03-08-2022 ambulatory Azamanda Leovilmas Other [employer] Other Start: 03-08-2022 Telephone encounter Azamanda Leovilmas [facility] Start: 01-31-2022 End: 02-01-[address] MISAEL PEREZ Facility:[facility] Start: 01-24-2022 End: 01-24-2022 ambulatory Azamanda Arauz Other [employer] Other Start: 01-24-2022 Telephone encounter Azamanda Coles [facility] Start: 01-19-2022 End: 01-20-[address] MISAEL PEREZ Facility:[facility] Start: 01-13-2022 End: 01-13-2022 ambulatory Aleyda Dennis Other [employer] Other Start: 01-13-2022 Office outpatient vi sit 25 minutes Aleyda Dennis [facility] [place] Start: 01-03-2022 End: 01-04-2022 ambulatory ALEYDA DENNIS Facility:[facility] Start: 10-26-2021 End: 10-27-[address] MISAEL PEREZ Facility:[facility] Start: 09-07-2021 End: 09-07-2021 ambulatory Aleyda Dennis Other [employer] Other Start: 09-07-2021 Telephone encounter Aleyda Dennis [employer] [facility] Start: 06-07-2021 End: 06-07-2021 ambulatory Azamanda Arauz Other [employer] Other Start: 06-07-2021 Telephone encounter Azamanda Arauz [facility] Start: 06-01-2021 End: 06-02-[address] MISAEL PEREZ Facility:[facility] Start: 03-09-2021 End: 03-09-2021 ambulatory Maxi Norton Other [employer] Other Start: 03-09-2021 Telephone encounter Maxi Norton [facility] Start: 01-27-2021 End: 01-27-2021 ambulatory Maxi Norton Other [employer] Other Start: 01-27-2021 Telephone encounter Maxi Norton [facility] Start: 12-10-2020 Office outpatient vi sit 25 minutes Aleyda Bourgeois [facility] [place] Start: 10-26-2017 End: 10-27-2017 Patient encounter DEFAULT PHYSICIAN Facility:[facility] Start: 10-16-2017 End: 10-17-2017 Patient encounter DEFAULT PHYSICIAN Facility:[facility] Procedures Date Procedure Procedure Detail Performing Clinician Start: 10-30-2023 Capsule endoscopy MD Misael Perez Work Phone: Start: 08-15-2023 Esophagogastroduodenoscopy MD Misael whitlock Work Phone: Start: 08-14-2023 Antibody screen Misael Perez Comment on above: Order Comment: Transfuse now? Y Number o f units to transfuse now? 1 Result Comment: PERF ORMED BY: [facility] [address] [facility] [address] PATHOLOGIST MULE PACKER LATONIA BRAND M.D. Start: 08-14-2023 Screening for occult blood in feces MD Misael Perez Work Phone: Start: 08-14-2023 Stool Occult Blood ([facility]ILAD) MD Misael Perez Work Phone: Start: 04-19-2023 Basic metabolic panel calcium total Misael Perez MD Work Phone: Start: 04-19-2023 Complete blood count with white cell differential, automated Misael Perez MD Work Phone: Start: 03-08-2023 Colonoscopy Pmh 1 Start: 02-28-2023 Adult depression screening assessment Pmh 1 Plan of Treatment Date Care Activity Detail Author Start: 03-08-2033 Screening for malignant neoplasm of colon [facility] [employer] [facility] Start: 03-08-2024 Adult BMI Screening Adult BMI Screening [facility] Start: 03-08-2024 Tobacco Screening Tobacco Screening [facility] Start: 02-29-2024 Depression Screening Depression Screening [facility] Start: 02-29-2024 Fall Risk Screening Fall Risk Screening [facility] Start: 10-30-2023 [facility] Start: 08-15-2023 End: 08-15-2023 [facility] Start: 08-14-2023 Referral to analysis evaluator [facility] Start: 08-14-2023 Referral to loss claim clerk [facility] Start: 08-14-2023 Hospital admission [facility] Start: 08-14-2023 [facility] Start: 08-14-2023 [facility] Start: 04-18-2023 End: 04-18-2024 25-hydroxyvitamin D3 [Mass/volume] in Serum or Plasma Vitamin D 25 hydroxy Lab Routine Vitamin D deficiency Expected: 04/18/2023 (Approximate), Expires: 04/18/2024 [facility] Comment on above: Expected: 04/18/2023 (Approximate), Expi res: 04/18/2024 Start: 04-18-2023 End: 04-18-2024 Albumin, urine, random Albumin, urine, random Lab Routine Type 2 diabetes mellitus with hyperglycemia, without long-term current use of insulin ([facility]) Expected: 04/18/2023 (Approximate), Expires: 04/18/2024 [facility] Comment on above: Expected: 04/18/2023 (Approximate), Expi res: 04/18/2024 Start: 04-18-2023 End: 04-18-2024 Basic metabolic 1998 panel - Serum or Plasma Basic metabolic panel Lab Routine Encounter for long-term current use of medication Expected: 04/18/2023 (Approximate), Expires: 04/18/2024 [facility] Comment on above: Expected: 04/18/2023 (Approximate), Expi res: 04/18/2024 Start: 04-18-2023 End: 04-18-2024 CBC W Auto Differential panel - Blood CBC and differential Lab Routine Encounter for long-term current use of medication Expected: 04/18/2023 (Approximate), Expires: 04/18/2024 [facility] Comment on above: Expected: 04/18/2023 (Approximate), Expi res: 04/18/2024 Start: 04-18-2023 End: 04-18-2024 Hemoglobin A1c measurement Hemoglobin A1c Lab Routine Type 2 diabetes mellitus with hyperglycemia, without long-term current use of insulin ([facility]) Expected: 04/18/2023 (Approximate), Expires: 04/18/2024 [facility] Work Phone: Comment on above: Expected: 04/18/2023 (Approximate), Expi res: 04/18/2024 Start: 04-18-2023 End: 04-18-2024 Hepatic function 2000 panel - Serum or Plasma Hepatic function panel Lab Routine Encounter for long-term current use of medication Expected: 04/18/2023 (Approximate), Expires: 04/18/2024 [facility] Comment on above: Expected: 04/18/2023 (Approximate), Expi res: 04/18/2024 Start: 04-18-2023 End: 04-18-2024 Lipid 1996 panel - Serum or Plasma Lipid panel Lab Routine Dyslipidemia ([facility]) Expected: 04/18/2023 (Approximate), Expires: 04/18/2024 [facility] Comment on above: Expected: 04/18/2023 (Approximate), Expi res: 04/18/2024 Start: 04-18-2023 End: 04-18-2024 Thyrotropin [Units/volume] in Serum or Plasma TSH Lab Routine Obesity (BMI 30-39.9) Expected: 04/18/2023 (Approximate), Expires: 04/18/2024 [facility] Comment on above: Expected: 04/18/2023 (Approximate), Expi res: 04/18/2024 Start: 04-18-2023 End: 04-18-2023 Patient encounter procedure 04/18/2023 10:30 AM EST Office Visit [facility] [address] [address] [place] [phone] Felipe Schaefer DO [address] [facility] [address] [place] [address] [facility] Start: 04-10-2023 End: 04-10-2024 MR Knee - right WO contrast MR knee right wo IV contrast Imaging Routine Internal derangement of right knee Expected: 04/10/2023 (Approximate), Expires: 04/10/2024 [facility] Work Phone: Comment on above: Expected: 04/10/2023 (Approximate), Expi res: 04/10/2024 Start: 04-10-2023 End: 04-10-2023 Patient encounter procedure 04/10/2023 9:30 AM EST Office Visit [facility] [address] [place] [id number] Valery Garcia NP [address] [place] [address] Chronic pain of right knee (Primary Dx); Arthritis of right knee [facility] Comment on above: Chronic pain of right knee (Primary Dx); Arthritis of right knee Start: 09-25-2018 Medicare Annual Wellness (AWV) Medicare Annual Wellness (AWV) [facility] Start: 09-25-2018 Medicare Annual Wellness Visit Medicare Annual Wellness Visit [facility] Start: 11-28-1966 DTaP,Tdap and Td Vaccines (1 - Tdap) DTaP,Tdap and Td Vaccines (1 - Tdap) [facility] Start: 11-28-1966 Urine screening for protein Diabetes: Urine Protein Screening [facility] Start: 11-28-1965 Adult BMI Follow Up Plan Adult BMI Follow Up Plan [facility] Start: 11-28-1957 Glaucoma screening Diabetes: Retinopathy Screening [facility] Start: 1945 Hemoglobin A1c measurement Diabetes: Hemoglobin A1C [facility] Start: 1945 Screening for malignant neoplasm of colon [facility] Colonoscopy flx dx w /collj spec when pfrmd COLONOSCOPY DIAGNOSTIC / SCREENING Iron deficiency anemia, unspecified iron deficiency anemia type [facility] Patient Education Gastritis (DC) [facility] Work Phone: Renal function 2000 panel - Serum or Plasma [facility] Renal function 1999 panel - Serum or Plasma [facility] Renal function 2000 panel - Serum or Plasma [facility] Renal function 1999 panel - Serum or Plasma [facility] Immunizations Immunization Date Immunization Notes Care Provider Fa philip 12-08-2022 ABRYSVO - Respirator y syncytial virus (RSV), vaccine, bivalent, protein subunit RSV prefusion F, diluent reconstituted, 0.5 mL, PF Felipe Schaefer DO Work Phone: [facility] 11-24-2022 Influenza, High-dose Seasonal, Quadrivalent, Preservative Free Felipe Schaefer DO Work Phone: [facility] 07-04-2022 hepatitis B vaccine, adult dosage Felipe Schaefer DO Work Phone: [facility] 02-04-2022 hepatitis B vaccine, adult dosage Felipe Schaefer DO Work Phone: [facility] 01-04-2022 hepatitis B vaccine, adult dosage Felipe Schaefer DO Work Phone: [facility] 11-28-2021 Influenza, Seasonal, Quadrivalent, Adjuvanted Felipe Schaefer DO Work Phone: [facility] 11-22-2021 zoster vaccine recombinant Felipe Schaefer DO Work Phone: [facility] 08-30-2021 zoster vaccine recombinant Felipe Schaefer DO Work Phone: [facility] 02-02-2021 Moderna SARS-CoV-2 Vaccination Felipe Schaefer DO Work Phone: [facility] 06-05-2020 COVID-19, mRNA, LNP- S, PF, 100mcg/0.5mL Dose Pmh [address] [facility] 05-08-2020 COVID-19, mRNA, LNP- S, PF, 100mcg/0.5mL Dose Pmh [address] [facility] 12-31-2018 influenza, high dose seasonal, preservative-free Felipe Schaefer DO Work Phone: [facility] 12-21-2017 influenza, high dose seasonal, preservative-free Felipe Schaefer DO Work Phone: [facility] 01-19-2017 influenza, high dose seasonal, preservative-free Felipe Schaefer DO Work Phone: [facility] 12-27-2016 influenza, injectabl e, quadrivalent, preservative free Felipe Schaefer DO Work Phone: [facility] 12-14-2016 pneumococcal polysaccharide vaccine, 23 valent Felipe Schaefer DO Work Phone: [facility] 10-06-2016 pneumococcal conjuga te vaccine, 13 valent Felipe Smithston DO Work Phone: [facility] 01-26-2015 influenza, high dose seasonal, preservative-free Felipe Schaefer DO Work Phone: [facility] 03-15-2012 influenza virus vaccine, whole virus Felipe Schaefer DO Work Phone: [facility] Payers Date Payer Category Payer Self-pay [id number] 2018 Unknown 2012 Medicare [id number] 1959 Medicare [id number] 2.1 6.840.1.351300.19 1959 Unknown [id number] 2. 16.840.1.151056.19 1947 Unknown [id number] 2.16.84 0.1.919401.3.579.2.593 1947 Unknown [id number] 2.16.84 0.1.462244.3.579.2.593 1947 Unknown [id number] 2.16.84 0.1.761935.3.579.2.593 1947 Unknown [id number] 2.16.84 0.1.805228.3.579.2.593 1947 Unknown [id number] 2.16.84 0.1.242586.3.579.2.593 1947 Unknown [id number] 2.16.84 0.1.311070.3.579.2.593 1947 Unknown [id number] 2.16.84 0.1.087572.3.579.2.593 1947 Unknown [id number] 2.16.8 40.1.970250.3.579.2.1286 1947 Unknown [id number] 2.16.8 40.1.077492.3.579.2.1286 1947 Unknown [id number] 2.16.8 40.1.933506.3.579.2.128 1947 Unknown [id number] 2.16.8 40.1.918897.3.579.2.128 1947 Unknown [id number] 2.16.8 40.1.979975.3.579.2.128 1947 Unknown [id number] 2.16.8 40.1.037972.3.579.2.128 1947 Unknown [id number] 2.16.8 40.1.654646.3.579.2.128 1947 Unknown [id number] 2.16.8 40.1.279282.3.579.2.128 1947 Unknown [id number] 2.16.8 40.1.998209.3.579.2.1285 1947 Unknown [id number] 2.16.84 0.1.594666.3.579.2.128 1947 Unknown [id number] 2.16.84 0.1.909511.3.579.2.128 1947 Unknown [id number] 2.16.84 0.1.368583.3.579.2.1286 8 Unknown [id number] 2.16.84 0.1.752765.3.579.2.1286 1947 Unknown [id number] 2.16.84 0.1.134791.3.579.2.1259 1947 Unknown [id number] 2.16.84 0.1.568119.3.579.2.1259 1947 Unknown [id number] 2.16.84 0.1.917395.3.579.2.1259 1947 Unknown [id number] 2.16.84 0.1.590231.3.579.2.1259 1947 Unknown [id number] 2.16.84 0.1.518750.3.579.2.1259 1947 Unknown [id number] 2.16.84 0.1.280469.3.579.2.1259 1947 Unknown [id number] 2.16.84 0.1.861070.3.579.2.1259 1947 Unknown [id number] 2.16.84 0.1.022753.3.579.2.1259 1947 Unknown [id number] 2.16.84 0.1.172645.3.579.2.1259 1947 Unknown [id number] 2.16.84 0.1.914311.3.579.2.1259 1947 Unknown [id number] 2.16.84 0.1.674660.3.579.2.1259 1947 Unknown [id number] 2.16.84 0.1.261319.3.579.2.1259 1947 Unknown [id number] 2.16.84 0.1.572297.3.579.2.1259 1947 Unknown [id number] 2.16.84 0.1.430035.3.579.2.125 1947 Unknown [id number] 2.16.84 0.1.736724.3.579.2.1258 1947 Unknown [id number] 2.16.84 0.1.781400.3.579.2.125 1947 Unknown [id number] 2.16.84 0.1.485986.3.579.2.9 1947 Unknown [id number] 2.16.84 0.1.468207.3.579.2.1258 1947 Unknown [id number] 2.16.84 0.1.003770.3.579.2.1258 1947 Unknown [id number] 2.16.84 0.1.355004.3.579.2.1258 1947 Unknown [id number] 2.16.84 0.1.032134.3.579.2.1258 1947 Unknown [id number] 2.16.840 .1.364541.3.579.2.1259 Medicare Medicare [id number] Unknown [facility] Health Claims [id number] Unknown [id number] 2.16.8 40.1.074913.3.579.2.531 Unknown [id number] 2.16.8 40.1.777464.3.579.2.531 Social History Date Type Detail Facility Unknown if ever smoked [employer] Other Start: 03-08-2023 End: 04-18-2023 Sex Assigned At [employer] Other Start: 02-28-2023 End: 08-14-2023 Tobacco smoking status NHIS Ex-smoker [facility] End: 03-06-2007 History of tobacco use Current smoker [facility] Start: 08-15-2022 End: 02-28-2023 Tobacco use and exposure Smokeless tobacco non-user [facility] Start: 03-07-2023 Alcohol intake Current drinke r of alcohol (finding) [facility] Start: 03-08-2023 End: 04-18-2023 History of [address] [facility] Adolescent depressio n screening assessment 0 [facility] Start: 03-07-2023 Alcohol Comment social [facility] Start: 1945 Sex Assigned At Not on file P [facility] End: 03-06-2007 History of tobacco use Cigarette Smoker [facility] Start: 02-22-2023 End: 04-18-2023 Alcohol intake Ex-drinker (finding) [facility] Start: 1945 Sex Assigned At Female F [facility] Start: 08-15-2023 Tobacco smoking stat us NHIS Never smoked tobacco (finding) [facility] Goals Date Patient Goal Desired Activity /State Functional Status Date Assessment Result Facility 08-15-2023 Functional status Patient at Baseline [facility] Work Phone: Mental Status Date Assessment Result Facility 08-15-2023 Cognitive function Cognitive Sta tus Patient at Baseline [facility] Work Phone: Clinical Notes 03-06-2019 to 10-10-2023 Note Date & Type Note Facility 10-10-2023 Evaluation note Authored October 10, 2023 1:2 1pm 77-year-old female with hist ory of kidney cancer s/p nephrectomy, history of iron deficiency anemia of unclear etiology requiring iron infusions who was referred to the GI clinic for evaluation of anemia Patient had EGD/colonoscopy in 03/2019 for which showed gastritis and a colonic polyp, EGD on 08/15/2023 showed gastritis multiple gastric erosions with adrenal heme. Since the EGD patient has been on pantoprazole 40 mg twice daily and on p.o. iron, hemoglobin improved from 9.1 (08/15/2023)to 10.1(09/18/2023) -Will get EGD and colonoscopy report from [place] -Will arrange for capsule endoscopy. -Decrease pantoprazole to 40 mg daily [facility] Work Phone: 1(183) 339-557106-11-2024 Consult note Author Aleyda Bourgeois [facility] August 15, 2023 10:24am Note Date/Time August 15, 2023 8:48 am [facility] [address] [place] [address] Nephrology Consult Note Signed Patient: Malgorzata Reyes MR#: [id number] : 1945 Acct:[id number] Age/Sex: 77 / F Adm Date: 4 Loc: Room: [address] [place] [address] Type: ADM INOo Attending Dr: Meagan Roman [...] polydipsia Dermatological: denies any itching or rash [facility] Medical History (Updated 08/15/23 @ 09:59 by [...] 50 Mg Tab.Er.24h) 50 mg PO DAILY [facility] Stop: 08/14/24 08:59 Oxycodone/Acetaminophen (Oxycodone/Acetaminophen 5-325 Mg Tablet) 2 tab PO [id number] PRN Reason: pain Last Admin: 08/14/23 22:37 Dose: 2 tab Pantoprazole Sodium (Pantoprazole 40 Mg Vial) 40 mg IV-PUSH BID [facility] Stop: 08/13/24 20:59 Last Admin: 08/14/23 22:37 Dose: 40 mg Prochlorperazine Edisylate (Prochlorperazine Edisylate 10 Mg/2 Ml Vial) 5 mg IV- PUSH Q4H PRN PRN Reason: Nausea And Vomiting [...] Skin: No rashes , warm to touch [employer] MACHINE: Awake,Alert, following simple command Musculoskeletal: No swelling [...] physician into a diagnostic report(s) for Malgorzata Reyes. I have reviewed the report(s) and [...] <Electronically signed by Aleyda Bourgeois MD> 08/15/[address] [place] [address] Ctr Work Phone: 1(343) 528-397706-11-2024 Consult note Author Kuldeep Almazan [facility] August 15, 2023 8:33am Note Date/Time August 15, 2023 8:14 am [facility] [address] [place] [address] Gastroenterology Consult Note Signed Patient: Malgorzata Reyes MR#: [id number] : 1945 Acct:[id number] Age/Sex: 77 / F Adm Date: 4 Loc: Room: [address] [place] [address] Type: ADM INOo Attending Dr: Meagan Roman [...] negative unless noted below or in HPI [facility] Medical History (Updated 08/15/23 @ 08:33 by [...] % (Auto) 70.0 Lymph % (Auto) 19.2 Wallace % (Auto) 6.8 Eos % (Auto) 3.3 Baso % (Auto) 0.7 Nucleat RBC Rel Count 0.1 Neut # (Auto) 5.4 Lymph # (Auto) 1.5 Wallace # (Auto) 0.5 Eos # (Auto) 0.3 [...] Type Blood Type Recheck Antibody Screen Crossmatch ([facility]) 08/14/23 08/14/23 08/14/23 17:55 17:55 17:55 Corrected WBC Uncorrected WBC Count RBC Hgb Hct MCV MCH MCHC RDW Plt Count MPV Neut % (Auto) Lymph % (Auto) Wallace % (Auto) Eos % (Auto) Baso % (Auto) Nucleat RBC Rel Count Neut # (Auto) Lymph # (Auto) Wallace # (Auto) Eos # (Auto) Baso # [...] Type Blood Type Recheck Antibody Screen Crossmatch ([facility]) 08/14/23 08/14/23 08/15/23 17:55 19:59 06:32 Corrected WBC 4.9 Uncorrected WBC Count 4.9 RBC 2.97 L Hgb 8.8 L Hct 26.1 L MCV 87.6 MCH 29.5 MCHC 33.6 RDW 14.8 Plt Count 273 MPV 8.3 Neut % (Auto) 57.5 Lymph % (Auto) 26.9 Wallace % (Auto) 9.7 Eos % (Auto) 5.1 Baso % (Auto) 0.8 Nucleat RBC Rel Count 0.1 Neut # (Auto) 2.8 Lymph # (Auto) 1.3 Wallace # (Auto) 0.5 Eos # (Auto) 0.2 [...] Recheck A Negative Antibody Screen Negative Crossmatch ([facility]) See Detail A&P - Gastroenterology Assessment/Plan [...] signed by Kuldeep Almazan MD> 08/15/23 0833 [facility] Work Phone: 1(563) 867-735406-11-2024 [facility] History and physical note Author Meagan Roman [facility] August 14, 2023 7:50pm Note Date/Time August 14, 2023 7:50 pm [facility] [address] [place] [address] Hospitalist H&P Signed Patient: Malgorzata Reyes MR#: [id number] : 1945 Acct:[id number] Age/Sex: 77 / F Adm Date: 4 Loc: ER Room: Type: [facility] ER Attending Dr: Copies to: DO Misael Robins MD Ruta Semaskiene, MD~ HPI DATE OF EXAMINATION: 08/14/23 CHIEF COMPLAINT: abn lab work HISTORY OF PRESENT ILLNESS: 77-year old female with a history of iron deficiency anemia, of unclear etiology, history of iron infusions, status post EGD and colonoscopy in [facility], at that time showed some stomach irritation, placed on Protonix, consider due to aspirin use presented with abnormal lab. Patient has been following with loss claim clerk for single kidney, she is status post [...] Previous records in the computer system reviewed [facility] Medical History (Updated 08/14/23 @ 19:38 by [...] % (Auto) 19.2 % (.) 08/14/23 17:55 Wallace % (Auto) 6.8 % (.) 08/14/23 17:55 Eos % (Auto) 3.3 % (.) 08/14/23 17:55 Baso % (Auto) 0.7 % (.) 08/14/23 17:55 Nucleat RBC Rel Count 0.1 /100 WBC (0-0.5) 08/14/23 17:55 Neut # (Auto) 5.4 x10E3/uL (1.8-7.7) 08/14/23 17:55 Lymph # (Auto) 1.5 x10E3/uL (1.00-4.8) 08/14/23 17:55 Wallace # (Auto) 0.5 x10E3/uL (0.0-0.8) 08/14/23 17:55 [...] days): 3 Documented By: Meagan Roman MD 08/14/23 1944 Signed By: <Electronically signed by Meagan Roman MD> 08/14/23 1950 [facility] Work Phone: 1(478) 570-932902-13-2024 Telephone encounter Note* Telephone Encounter - Misael Preez MD - 04/18/2023 3:32 PM EST Patient due for all labs and in chart. Please print order or send to lab. If print albumin needs printed separately from other labs. [facility] [id number] Miscellaneous Notes* Telephone Encounter - Misael Perez MD - 04/18/2023 3:32 PM EST Patient due for all labs and in chart. Please print order or send to lab. If print albumin needs printed separately from other labs. MAN documented in this encounterUniversity of Missouri Children's [id number] History of Present illness Narrative* Felipe Schaefer DO - 04/18/2023 10:30 AM EST Images from [...] History of kidney cancer RT HTN (hypertension) ([facility]) Kidney disease ALLERGIES: Allergies Allergen Reactions Latex [...] knee dated April 12, 2023 from the [facility]. There is thinning of articular cartilage and [...] questions. Candy Schaefer D.O. documented in this encounterUniversity of Missouri Children's [id number] History of Present illness Narrative* Valery Garcia [...] knee without contrast to be done at [facility] in [place], activities as tolerated, f/u s/p MRI documented in this encounterUniversity of Missouri Children's [id number] Evaluation note* Encounter Date Diagnosis Assessment Notes [...] potassium diet and provide information about it. [facility] Other 01-02-2024 Miscellaneous Notes* Perioperative Nursing Note - Nani Braun RN - 03/07/2023 1:00 PM EST Preoperative Education Checklist- General Surgery date: 03/08/23 Surgery time: 1030 Arrival time: 929 1. Bring a photo ID and your insurance card with you the day of surgery. You will check in at the main lobby of the [facility]- registration desk is straight ahead as soon as you walk in. Tell them you are here for surgery. 2. If you have a Living Will/Durable Power of Wallboard Worker for Health Care that is not on [...] after you have bathed. 5. NO nail malian/acrylic on at least one finger. If you are having a hand, wrist or foot surgery then all nail malian and artificial/acrylic nails must be removed from [...] please call the Preadmission Testing office at [phone], Mon.-Fri. 7 a.m.-3 p.m. Leave a voicemail [...] days prior to procedure documented in this encounterSelect [facility]ty [facility]Des[facility] [id number] Nurse Note* Perioperative Nursing Note - Nani Braun RN - 03/07/2023 1:00 PM EST Preoperative Education Checklist- General Surgery date: 03/08/23 Surgery time: 1030 Arrival time: 0930 1. Bring a photo ID and your insurance card with you the day of surgery. You will check in at the main lobby of the [facility]- registration desk is straight ahead as soon as you walk in. Tell them you are here for surgery. 2. If you have a Living Will/Durable Power of Wallboard Worker for Health Care that is not on [...] after you have bathed. 5. NO nail malian/acrylic on at least one finger. If you are having a hand, wrist or foot surgery then all nail malian and artificial/acrylic nails must be removed from [...] please call the Preadmission Testing office at [phone], Mon.-Fri. 7 a.m.-3 p.m. Leave a voicemail [...] Stop taking 0 days prior to procedure [facility]12-19-2023 Evaluation note* Encounter Date Diagnosis Assessment Notes Treatment Notes Treatment Clinical Notes Feb, Chronic kidney disease, stage 3 unspecified (ICD-10 - N18.30) Feb, Anemia in chronic kidney disease (ICD-10 - D63.1) [facility] Other 09-20-2023 Evaluation note* Encounter Date Diagnosis Assessment Notes Treatment Notes Treatment Clinical Notes Nov, Hypertensive chronic kidney disease with stage 1 through stage 4 chronic kidney disease, or unspecified chronic kidney disease (ICD-10 - I12.9) [facility] Other 08-22-2023 Evaluation note* Encounter Date Diagnosis Assessment Notes Treatment Notes Treatment Clinical Notes Oct, Hypertensive chronic kidney disease with stage 1 through stage 4 chronic kidney disease, or unspecified chronic kidney disease (ICD-10 - I12.9) [facility] Other 07-10-2023 Evaluation note* Encounter Date Diagnosis Assessment Notes Treatment Notes Treatment Clinical Notes Sep, Proteinuria (ICD-10 - R80.9) [facility] Other 06-01-2023 Evaluation note* Encounter Date Diagnosis [...] potassium diet and provide information about it. [facility] Other 01-03-2023 Evaluation note* Encounter Date Diagnosis Assessment Notes Treatment Notes Treatment Clinical Notes Mar, Proteinuria (ICD-10 - R80.9) [facility] Other 11-10-2022 Evaluation note* Encounter Date Diagnosis [...] No need for any medication for now. [facility] Other 07-05-2022 Evaluation note* Encounter Date Diagnosis Assessment Notes Treatment Notes Treatment Clinical Notes Sep, Hypertensive chronic kidney disease with stage 1 through stage 4 chronic kidney disease, or unspecified chronic kidney disease (ICD-10 - I12.9) [facility] Other 04-04-2022 Evaluation note* Encounter Date Diagnosis Assessment Notes Treatment Notes Treatment Clinical Notes Jun, Proteinuria (ICD-10 - R80.9) [facility] Other 01-04-2022 Evaluation note* Encounter Date Diagnosis Assessment Notes Treatment Notes Treatment Clinical Notes Mar, Hypertensive chronic kidney disease with stage 1 through stage 4 chronic kidney disease, or unspecified chronic kidney disease (ICD-10 - I12.9) [facility] Other 11-24-2021 Evaluation note* Encounter Date Diagnosis Assessment Notes Treatment Notes Treatment Clinical Notes Jan, Hypertensive chronic kidney disease with stage 1 through stage 4 chronic kidney disease, or unspecified chronic kidney disease (ICD-10 - I12.9) [facility] Other 10-07-2021 Evaluation note* Encounter Date Diagnosis Assessment Notes Treatment Notes Treatment Clinical Notes Dec, Hypertensive chronic kidney disease with stage 1 through stage 4 chronic kidney disease, or unspecified chronic kidney disease (ICD-10 - I12.9) Blood pressure is controlled and has no edema. Continue Amlodipine mg daily. Continue Lasix Dec, Proteinuria (ICD-10 [...] (ICD-10 - E55.9) Continue oral Vit D [facility] Other 01-01-2020 Evaluation note* Author [facility] Authored October 10, 2023 1:2 1pm 77-year-old female with hist ory of kidney cancer s/p nephrectomy, history of iron deficiency anemia of unclear etiology requiring iron infusions who was referred to the GI clinic for evaluation of anemia Patient had EGD/colonoscopy in 03/2019 for which showed gastritis and a colonic polyp, EGD on 08/15/2023 showed gastritis multiple gastric erosions with adrenal heme. Since the EGD patient has been on pantoprazole 40 mg twice daily and on p.o. iron, hemoglobin improved from 9.1 (08/15/2023)to 10.1(09/18/2023) -Will get EGD and colonoscopy report from [place] -Will arrange for capsule endoscopy. -Decrease pantoprazole to 40 mg daily [facility] Work Phone: Evaluation noteNo [place] [employer] Other Evaluation note* Diagnosis Chronic pain of right knee- Primary Arthritis of right knee Internal derangement of right knee documented in this encounter [facility] HealthcareEvaluation note* Diagnosis Chronic pain of right knee- Primary Arthritis of right knee Complex tear of medial meniscus of right knee as current injury, initial encounter Other tear of lateral meniscus of right knee as current injury, initial encounter documented in this encounter [facility] HealthcareEvaluation note* Diagnosis Dyslipidemia ([facility])- Primary Other and unspecified hyperlipidemia Vitamin D deficiency Type 2 diabetes mellitus with hyperglycemia, without long-term current use of insulin ([facility]) Encounter for long-term current use of medication Obesity (BMI 30-39.9) documented in this encounter [facility] HealthcareEvaluation note* Diagnosis Onset Date Resolution Status Anemia of renal disease acut e CKD (chronic kidney disease) stage 3, GFR 30-59 ml/min acute Hyperkalemia acute [id number] acute Hyperuricemia acute Proteinuria acute Renal cancer acute Type 2 diabetes mellitus wit h diabetic chronic kidney disease acute Vitamin D deficiency acute [facility] Work Phone: Evaluation note* Diagnosis Onset Date Resolution Status Anemia of renal disease acut e CKD (chronic kidney disease) stage 3, GFR 30-59 ml/min acute Hyperkalemia acute [id number] acute Hyperuricemia acute Proteinuria acute Renal cancer acute Type 2 diabetes mellitus wit h diabetic chronic kidney disease acute Vitamin D deficiency acute Anemia of renal disease acut e CKD (chronic kidney disease) stage 3, GFR 30-59 ml/min acute [id number] acute Type 2 diabetes mellitus wit h diabetic chronic kidney disease acute Acute blood loss anemia acut e Anemia acute CKD (chronic kidney disease) stage 3, GFR 30-59 ml/min acute Gastritis with bleeding acut e [id number] acute Occult blood positive stool acute Type 2 diabetes mellitus wit h diabetic chronic kidney disease acute [facility] Work Phone: Evaluation note* Diagnosis Onset Date Resolution Status Anemia of renal disease acut e CKD (chronic kidney disease) stage 3, GFR 30-59 ml/min acute Hyperkalemia acute [id number] acute Hyperuricemia acute Proteinuria acute Renal cancer acute Type 2 diabetes mellitus wit h diabetic chronic kidney disease acute Vitamin D deficiency acute Anemia of renal disease acut e CKD (chronic kidney disease) stage 3, GFR 30-59 ml/min acute [id number] acute Type 2 diabetes mellitus wit h diabetic chronic kidney disease acute Acute blood loss anemia acut e Anemia acute CKD (chronic kidney disease) stage 3, GFR 30-59 ml/min acute Gastritis with bleeding acut e [id number] acute Occult blood positive stool acute Type 2 diabetes mellitus wit h diabetic chronic kidney disease acute Anemia of renal disease acut e CKD (chronic kidney disease) stage 3, GFR 30-59 ml/min acute Hyperkalemia acute [id number] acute Hyperuricemia acute Proteinuria acute Renal cancer acute Type 2 diabetes mellitus wit h diabetic chronic kidney disease acute Vitamin D deficiency acute [facility] Work Phone: Evaluation note* Diagnosis Onset Date Resolution Status Anemia of renal disease acut e CKD (chronic kidney disease) stage 3, GFR 30-59 ml/min acute Hyperkalemia acute [id number] acute Hyperuricemia acute Proteinuria acute Renal cancer acute Type 2 diabetes mellitus wit h diabetic chronic kidney disease acute Vitamin D deficiency acute Anemia of renal disease acut e CKD (chronic kidney disease) stage 3, GFR 30-59 ml/min acute [id number] acute Type 2 diabetes mellitus wit h diabetic chronic kidney disease acute Anemia acute Kidney disease acute Occult blood positive stool acute [facility] Work Phone: Evaluation note* Diagnosis Onset Date Resolution Status Anemia of renal disease acut e Hyperkalemia acute Hyperuricemia acute Proteinuria acute Renal cancer acute Vitamin D deficiency acute CKD (chronic kidney disease) stage 3, GFR 30-59 ml/min resolved [id number] resolved Type 2 diabetes mellitus wit h diabetic chronic kidney disease resolved Anemia of renal disease acut e CKD (chronic kidney disease) stage 3, GFR 30-59 ml/min resolved [id number] resolved Type 2 diabetes mellitus wit h diabetic chronic kidney disease resolved Acute blood loss anemia reso lved Anemia resolved CKD (chronic kidney disease) stage 3, GFR 30-59 ml/min resolved Gastritis with bleeding reso lved [id number] resolved Occult blood positive stool resolved Type 2 diabetes mellitus wit h diabetic chronic kidney disease resolved Anemia of renal disease acut e Hyperkalemia acute Hyperuricemia acute Proteinuria acute Renal cancer acute Vitamin D deficiency acute CKD (chronic kidney disease) stage 3, GFR 30-59 ml/min resolved [id number] resolved Type 2 diabetes mellitus wit h diabetic chronic kidney disease resolved Anemia of renal disease acut e Hyperkalemia acute Hyperuricemia acute Proteinuria acute Renal cancer acute Vitamin D deficiency acute CKD (chronic kidney disease) stage 3, GFR 30-59 ml/min resolved [id number] resolved Type 2 diabetes mellitus wit h diabetic chronic kidney disease resolved [facility] Work Phone: History and physical note Author Meagan Roman [facility] August 14, 2023 7:50pm Note Date/Time August 14, 2023 7:50 pm [facility] [address] [place] [address] Hospitalist H&P Signed Patient: Malgorzata Reyes MR#: [id number] : 1945 Acct:[id number] Age/Sex: 77 / F Adm Date: 4 Loc: ER Room: Type: [facility] ER Attending Dr: Copies to: Liliana Kaba, MD Meagan Street MD~ HPI DATE OF EXAMINATION: 08/14/23 CHIEF COMPLAINT: abn lab work HISTORY OF PRESENT ILLNESS: 77-year old female with a history of iron deficiency anemia, of unclear etiology, history of iron infusions, status post EGD and colonoscopy in [facility], at that time showed some stomach irritation, placed on Protonix, consider due to aspirin use presented with abnormal lab. Patient has been following with loss claim clerk for single kidney, she is status post [...] Previous records in the computer system reviewed [facility] Medical History (Updated 08/14/23 @ 19:38 by [...] % (Auto) 19.2 % (.) 08/14/23 17:55 Wallace % (Auto) 6.8 % (.) 08/14/23 17:55 Eos % (Auto) 3.3 % (.) 08/14/23 17:55 Baso % (Auto) 0.7 % (.) 08/14/23 17:55 Nucleat RBC Rel Count 0.1 /100 WBC (0-0.5) 08/14/23 17:55 Neut # (Auto) 5.4 x10E3/uL (1.8-7.7) 08/14/23 17:55 Lymph # (Auto) 1.5 x10E3/uL (1.00-4.8) 08/14/23 17:55 Wallace # (Auto) 0.5 x10E3/uL (0.0-0.8) 08/14/23 17:55 [...] By: <Electronically signed by Meagan Roman MD> 08/14/231949 [facility] Work Phone: His[facility]re general Narrative - Reported* Type Description Date [...] vein ligation 2019 Hospitalization History SEE ABOVE [facility] Other [employer] general Narrative - Reported* Type Description Date [...] METABOLIC ENCEPHALOPATHY, COMPLICATED URINARY TRACT INFECTION 11/21/2022 [facility] Other History general Narrative - Reported* Type [...] METABOLIC ENCEPHALOPATHY, COMPLICATED URINARY TRACT INFECTION 11/21/2022 [facility] Other InstructionsNot on filedocumented in this encounter [employer] Summary Purpose Family History No Family History Records Found Relationship Condition Age at Onset Recorded Date/T charles brother Diabetes mellitus Unknown Hypertension Unknown father Unknown Not Specified Unknown sister Unknown Relationship Condition Age at Onset Recorded Date/T charles brother Diabetes mellitus Unknown Hypertension Unknown father Unknown mother Unknown sister Unknown Advance Directives No Advanced Directives Records Found Advance Directive Response Recorded Date/ Time Advance Directives No July 13, 2023 11:41am Reason for Referral Specialty Diagnoses / Procedures Referred By Ewelina irvin Referred To Contact Radiology Diagnoses Internal derangement of right knee Procedures MR knee right wo IV contrast Valery Garcia NP [address] [place] [address] Referral ID Status Reason Start Date Expiration Date V isits Requested Visits Authorized [id number] Pending Review 04/10/2023 10/07/2023 1 1 Chief Complaint and Reason for Visit Chief Complaint RENAL F/U Reason for Visit Anemia of renal dise [facility] CKD (chronic kidney disease) stage 3, GFR 30-59 ml/min Hyperkalemia [id number] Hyperuricemia Proteinuria Renal cancer Type 2 diabetes mellitus with diabetic chronic kidney disease Vitamin D deficiency Chief Complaint RENAL F/U RENAL INJ PROCRIT / NURSE Hemoglobin is low per Dr Hemoglobin is low per Dr Hemoglobin is low per Dr Reason for Visit Anemia of renal dise ase CKD (chronic kidney disease) stage 3, GFR 30-59 ml/min Hyperkalemia [id number] Hyperuricemia Proteinuria Renal cancer Type 2 diabetes mellitus with diabetic chronic kidney disease Vitamin D deficiency Anemia of renal disease CKD (chronic kidney disease) stage 3, GFR 30-59 ml/min [id number] Type 2 diabetes mellitus with diabetic chronic kidney disease Acute blood loss anemia Anemia CKD (chronic kidney disease) stage 3, GFR 30-59 ml/min Gastritis with bleeding [id number] Occult blood positive stool Type 2 diabetes mellitus with diabetic chronic kidney disease Chief Complaint RENAL F/U RENAL INJ PROCRIT / NURSE Hemoglobin is low per Dr Hemoglobin is low per Dr Hemoglobin is low per Dr RENAL 1 MONTH / HOSP F/U Reason for Visit Anemia of renal dise ase CKD (chronic kidney disease) stage 3, GFR 30-59 ml/min Hyperkalemia [id number] Hyperuricemia Proteinuria Renal cancer Type 2 diabetes mellitus with diabetic chronic kidney disease Vitamin D deficiency Anemia of renal disease CKD (chronic kidney disease) stage 3, GFR 30-59 ml/min [id number] Type 2 diabetes mellitus with diabetic chronic kidney disease Acute blood loss anemia Anemia CKD (chronic kidney disease) stage 3, GFR 30-59 ml/min Gastritis with bleeding [id number] Occult blood positive stool Type 2 diabetes mellitus with diabetic chronic kidney disease Anemia of renal disease CKD (chronic kidney disease) stage 3, GFR 30-59 ml/min Hyperkalemia [id number] Hyperuricemia Proteinuria Renal cancer Type 2 diabetes mellitus with diabetic chronic kidney disease Vitamin D deficiency Chief Complaint RENAL F/U RENAL INJ PROCRIT / NURSE Hemoglobin is low per Dr Reason for Visit Anemia of renal dise ase CKD (chronic kidney disease) stage 3, GFR 30-59 ml/min Hyperkalemia [id number] Hyperuricemia Proteinuria Renal cancer Type 2 diabetes mellitus with diabetic chronic kidney disease Vitamin D deficiency Anemia of renal disease CKD (chronic kidney disease) stage 3, GFR 30-59 ml/min [id number] Type 2 diabetes mellitus with diabetic chronic kidney disease Anemia Kidney disease Occult blood positive stool Chief Complaint RENAL F/U RENAL INJ PROCRIT / NURSE Hemoglobin is low per Dr Hemoglobin is low per Dr Hemoglobin is low per Dr RENAL 1 MONTH / HOSP F/U RENAL 1 MONTH F/U Reason for Visit Anemia of renal dise ase Hyperkalemia Hyperuricemia Proteinuria Renal cancer Vitamin D deficiency CKD (chronic kidney disease) stage 3, GFR 30-59 ml/min [id number] Type 2 diabetes mellitus with diabetic chronic kidney disease Anemia of renal disease CKD (chronic kidney disease) stage 3, GFR 30-59 ml/min [id number] Type 2 diabetes mellitus with diabetic chronic kidney disease Acute blood loss anemia Anemia CKD (chronic kidney disease) stage 3, GFR 30-59 ml/min Gastritis with bleeding [id number] Occult blood positive stool Type 2 diabetes mellitus with diabetic chronic kidney disease Anemia of renal disease Hyperkalemia Hyperuricemia Proteinuria Renal cancer Vitamin D deficiency CKD (chronic kidney disease) stage 3, GFR 30-59 ml/min [id number] Type 2 diabetes mellitus with diabetic chronic kidney disease Anemia of renal disease Hyperkalemia Hyperuricemia Proteinuria Renal cancer Vitamin D deficiency CKD (chronic kidney disease) stage 3, GFR 30-59 ml/min [id number] Type 2 diabetes mellitus with diabetic chronic kidney disease Chief Complaint RENAL F/U RENAL INJ PROCRIT / NURSE Hemoglobin is low per Hemoglobin is low per Hemoglobin is low per RENAL 1 MONTH / HOSP F/U RENAL 1 MONTH F/U follow up scope Reason for Visit Anemia of renal dise ase Hyperkalemia Hyperuricemia Proteinuria Renal cancer Vitamin D deficiency CKD (chronic kidney disease) stage 3, GFR 30-59 ml/min [id number] Type 2 diabetes mellitus with diabetic chronic kidney disease Anemia of renal disease CKD (chronic kidney disease) stage 3, GFR 30-59 ml/min [id number] Type 2 diabetes mellitus with diabetic chronic kidney disease Acute blood loss anemia Anemia CKD (chronic kidney disease) stage 3, GFR 30-59 ml/min Gastritis with bleeding [id number] Occult blood positive stool Type 2 diabetes mellitus with diabetic chronic kidney disease Anemia of renal disease Hyperkalemia Hyperuricemia Proteinuria Renal cancer Vitamin D deficiency CKD (chronic kidney disease) stage 3, GFR 30-59 ml/min [id number] Type 2 diabetes mellitus with diabetic chronic kidney disease Anemia of renal disease Hyperkalemia Hyperuricemia Proteinuria Renal cancer Vitamin D deficiency CKD (chronic kidney disease) stage 3, GFR 30-59 ml/min [id number] Type 2 diabetes mellitus with diabetic chronic kidney disease Chief Complaint Hemoglobin is low pe clari Reveles Hemoglobin is low per Hemoglobin is low per RENAL 1 MONTH / HOSP F/U RENAL 1 MONTH F/U follow up scope KLEBER due to Chronic blood loss Reason for Visit Acute blood loss ane prabha Anemia CKD (chronic kidney disease) stage 3, GFR 30-59 ml/min Gastritis with bleeding [id number] Occult blood positive stool Type 2 diabetes mellitus with diabetic chronic kidney disease Anemia of renal disease Hyperkalemia Hyperuricemia Proteinuria Renal cancer Vitamin D deficiency CKD (chronic kidney disease) stage 3, GFR 30-59 ml/min [id number] Type 2 diabetes mellitus with diabetic chronic kidney disease Anemia of renal disease Hyperkalemia Hyperuricemia Proteinuria Renal cancer Vitamin D deficiency CKD (chronic kidney disease) stage 3, GFR 30-59 ml/min [id number] Type 2 diabetes mellitus with diabetic chronic kidney disease Additional Source Comments INFORMATION SOURCE (unrecogn ized section and content) DATE CREATED AUTHOR 10/28/2017 [facility] DATE CREATED AUTHOR AUTHOR'S ORGANIZ ATION 07/21/2019 [facility] DATE CREATED AUTHOR AUTHOR'S ORGANIZ ATION 04/29/2022 [facility] DATE CREATED AUTHOR AUTHOR'S ORGANIZ ATION 09/22/2023 [facility] DATE CREATED AUTHOR AUTHOR'S ORGANIZ ATION 10/13/2023 [facility] EPIC DATE CREATED AUTHOR AUTHOR'S ORGANIZ ATION 11/09/2023 [facility] REASON FOR VISIT (unrecogniz ed [...] Provider Active S tart: August 15, 2023 End: August 15, 2023 Liliana Kaba DO Emergency Provider Active Sta rt: August 15, 2023 End: August 15, 2023 Meagan Roman MD Admit Provider, Other Provider Ac tive Start: August 15, 2023 End: August 15, 2023 Kuldeep Almazan MD Attending Provider, Other Provider Act kristi Start: August 15, 2023 End: August 15, 2023 Aleyda Bourgeois MD Other Provider Active Start: 2023 End: August 15, 2023 Team Status: Active Member Role Status Dates Misael Perez MD Primary Care Provider Active S tart: August 15, 2023 End: August 15, 2023 Liliana Kaba DO Emergency Provider Active Sta rt: August 15, 2023 End: August 15, 2023 Meagan Roman MD Admit Provider, Other Provider Ac tive Start: August 15, 2023 End: August 15, 2023 Kuldeep Almazan MD Other Provider Active Start: Aug End: August 15, 2023 Aleyda Bourgeois MD Attending Provider, Other Provider Ac tive Start: August 15, 2023 End: August 15, 2023 Team Status: Inactive Member Role Status Dates Aleyda Bourgeois MD Attending Provider Active Start : August 21, 2023 End: August 21, 2023 Misael Perez MD Primary Care Provider Active S tart: August 21, 2023 End: August 21, 2023 Team Status: Active Member Role Status Dates Misael Perez MD Primary Care Provide r, Attending Provider Active Start: September 18, 2023 Team Status: Inactive Member Role Status Dates Misael Perez MD Primary Care Provider Active S tart: September 25, 2023 End: September 25, 2023 Aleyda Bourgeois MD Attending Provider Active Start : September 25, 2023 End: September 25, 2023 Team Status: Inactive Member Role Status Dates Misael Perez MD Primary Care Provider Active S tart: October 10, 2023 End: October 10, 2023 Kuldeep Almazan MD Attending Provider Active Start: October 10, 2023 End: October 10, 2023 Team Status: Inactive Member Role Status Dates Misael Perez MD Primary Care Provider Active S tart: October 30, 2023 End: October 30, 2023 Kuldeep Almazan MD Attending Provider Active Start: October 30, 2023 End: October 30, 2023 Team Status: Inactive Member Role Status [...] Start : July 06, 2023 Team Status: Active Member Role Status [...] Provider Ac tive Start: August 15, 2023 Delinquency Prevention Officer Relationship Specialty Start Date End Date Misael Perez MD [address] [place] [phone] PCP - General Family Medicine 04/06/23 Delinquency Prevention Officer Relationship Specialty Start Date End Date Misael Perez MD [address] [place] [phone] PCP - General Family Medicine 04/06/23 Delinquency Prevention Officer Relationship Specialty Start Date End Date Misael Perez MD [address] [place] [phone] PCP - General Family Medicine 04/06/23 Delinquency Prevention Officer Relationship Specialty Start Date End Date Misael Perez MD [address] [place] [phone] PCP - General Family Medicine 04/06/23 Delinquency Prevention Officer Relationship Specialty Start Date End Date Misael Perez MD [address] [place] [phone] PCP - General Family Medicine 04/06/23 Team Status: Active Member Role Status Dates Yan Ramos DO Primary Care Provider Active Team Status: Active Member Role Status Dates Misael Perez MD Primary Care Provider Active S tart: August 14, 2023 Liliana Kaba DO Emergency Provider Active Sta rt: August 14, 2023 Meagan Roman MD Admit Provider, Attending Provide r Active Start: August 14, 2023 Goals (unrecognized section and content) Goals [...] BE BASED ON THE PRIMARY CLINICAL RECORDS. [facility] [employer] [facility]. provides no warranty or guarantee of the accuracy or completeness of information in this document.
[2023-12-04 12:44] LABS: Estimated Average Glucose 108 mg/dL; Glycohemoglobin A1C 5.4 % (4.5-6.2)
== END 2023-12-04 10:04 | disposition home or self-care (01) ==
LOC: LAB 10:04
PROVIDERS: PCP Family Medicine; Visit Provider Family Medicine
DX: E11.65 Type 2 diabetes mellitus with hyperglycemia (principal)
CPT/HCPCS: 36415; 83036

== ENCOUNTER 2023-12-26 12:43 | Outpatient (OUT) | payer MEDICARE, OTHER, SELFPAY ==
[2023-12-26 12:59] LABS: Hemoglobin 10.5 g/dL (12.0-16.0); Mean Corpuscular HGB Conc 31.8 g/dL (29.9-35.2); Mean Corpuscular Hemoglobin 30.2 pg (26.7-34.0); Mean Corpuscular Volume 94.8 fL (81.0-99.0); Mean Platelet Volume 10.4 fL (9.5-13.5); Platelet Count 251 10^3/uL (150-450); Red Blood Count 3.48 10^6/uL (4.20-5.40); White Blood Count 7.4 10^3/uL (4.0-11.0)
[2023-12-26 13:10] LABS: Albumin Level 4.3 g/dL (3.4-5.0); BUN Creatinine Ratio 20.6; Calcium 10.2 mg/dL (8.5-10.1); Carbon Dioxide 25.6 mmol/L (21.0-32.0); Chloride 107 mmol/L (98-107); Estimated GFR (African America 38 (>=60 mL/min/1.73m^2); Estimated GFR (Non-African Ame 31 (>=60 mL/min/1.73m^2); Glucose 102 mg/dL (74-106); Phosphorus 4.6 mg/dL (2.6-4.7); Potassium 5.6 mmol/L (3.5-5.1); Sodium 145 mmol/L (136-145)
[2023-12-26 13:53] LABS: Percent Iron Saturation 32.7 %
== END 2023-12-26 12:44 | disposition home or self-care (01) ==
LOC: LAB 12:44
PROVIDERS: PCP Family Medicine; Visit Provider Internal Medicine
DX: E79.0 Hyperuricemia without signs of inflammatory arthritis and tophaceous disease (principal); E87.5 Hyperkalemia; E55.9 Vitamin D deficiency, unspecified; C64.9 Malignant neoplasm of unspecified kidney, except renal pelvis; R80.9 Proteinuria, unspecified; N18.9 Chronic kidney disease, unspecified
CPT/HCPCS: 36415; 80069; 82728; 83540; 83550; 83735; 85027

== ENCOUNTER 2024-01-30 09:52 | Outpatient (OUT) | payer MEDICARE, OTHER, SELFPAY ==
--- NOTE | 2024-01-30 09:56 | CA_ITS ---
Patient Name: ARMANDO SIMMONS MR#: [id number] : 1945 Exam Date: 01/30/2024 Ordering Doctor: DR ELLEN DARNELL M.D. ECHOCARDIOGRAM REPORT PROCEDURE: CA ECHO DOPPLER COMPLETE INDICATIONS: Mitral regurgitation, Dyspnea COMPARISON: None. DESCRIPTION: COMPLETE ECHOCARDIOGRAM Real-time transthoracic echocardiography with 2D, M-mode, spectral and color flow Doppler performed. QUALITY: Technical quality was good. LEFT VENTRICLE: Moderate dilatation. Normal left ventricular wall thickness. Global left ventricular systolic function is at the lower limits of normal. LV EF: Visual estimation of left ventricular ejection fraction is 50-55%. DIASTOLIC: Grade I diastolic dysfunction. ATRIAL SEPTUM: LEFT ATRIUM: Moderate dilatation. RIGHT ATRIUM: Moderate dilatation. RIGHT VENTRICLE: Mild dilatation. Borderline right ventricular systolic function. TRICUSPID VALVE: Normal mobility and thickness. No stenosis with mild regurgitation. Moderate pulmonary hypertension. RVSP 46 mmHg MITRAL VALVE: Normal mobility and thickness. No evidence of mitral valve stenosis. There is no mitral annular calcification. Mild to moderate mitral regurgitation. AORTIC VALVE: Normal trileaflet appearance. Thickened aortic valve. Normal leaflet mobility. No evidence of aortic valve stenosis. No aortic regurgitation. AORTIC ROOT: Normal diameter and appearance. PULMONIC VALVE: Normal thickness and mobility. No stenosis. Mild regurgitation. PERICARDIUM: No pericardial effusion. IVC: Collapses with inspirations. Mild dilatation measuring 2.2 cm PLEURA: CONCLUSION: 1. Moderately dilated left ventricle with low normal systolic function. Estimated LVEF is 50-55%. 2. Mildly dilated right ventricle with borderline systolic function. 3. Mild diastolic dysfunction. 4. Moderate biatrial dilatation. 5. Mild to moderate mitral regurgitation. 6. Mild tricuspid and pulmonic regurgitation. 7. Moderately elevated right-sided pressures. Adult Echocardiography Procedure Report Left Ventricle LVEDD (3.7 - 5.6 cm): 6.02 cm LVESD (2.2 - 4.0 cm): 4.72 cm LVIVS thickness (0.6 - 1.2 cm): 0.82 cm LVPW thickness (0.5 - 1.0 cm): 0.89 cm e': 0.07 m/s E - e': 6.48 LVOT Max Gradient: 2.48 mm[Hg] LVOT Area (cm2): 0.79 m/s Peak Velocity (LVOT): 0.79 m/s Mean Velocity (LVOT): 0.46 m/s LVOT Diameter 2.12 cm Left Ventricular Ejection Fraction: 50-55 % Left Atrium LA Volume Index (2D A2C): 55.52 ml/m2 Left Atrium Systolic Dimension: 4.89 cm Mitral Valve MV E to A Ratio: 0.65 Mitral Valve A-Wave Peak Velocity: 0.73 m/s Mitral Valve E-Wave Peak Velocity: 0.48 m/s Right Ventricle RV Internal Diastolic Dimension: 4.09 cm Aorta AO Root Diam: 3.38 cm Ascending Ao Diam: 3.06 cm Aortic Valve AoV Area (Peak Iglesia): 1.97 cm2, 1.97 cm2 AoV Area (VTI): 1.88 cm2, 1.88 cm2 Peak Velocity(Antegrade Flow): 1.41 m/s Peak Gradient(Antegrade Flow): 7.94 mm[Hg] Mean Velocity(Antegrade Flow): 0.95 m/s Mean Gradient(Antegrade Flow): 4.08 mm[Hg] Velocity Time Integral: 36.44 cm Tricuspid Valve Peak Velocity (Regurgitant Flow): 2.63 m/s, 2.74 m/s, 3.09 m/s Pulmonic Valve Mean Gradient: 2.11 mm[Hg], 2.57 mm[Hg] Mean Velocity: 0.68 m/s, 0.75 m/s Peak Velocity: 1.05 m/s Peak Gradient: 3.74 mm[Hg], 5.06 mm[Hg] Right Atrium Right Atrium Systolic Pressure: 29.82 ml, 27.84 ml, 31.80 ml Dictated by: Ellen Darnell M.D. on 01/30/2024 at 18:38 Approved by: Ellen Darnell M.D. on 01/30/2024 at 18:45
--- OUTSIDE RECORDS SUMMARY | 2024-01-30 10:10 | XMS_ITS | CCD ---
Author Organization [facility] Care Team Providers Care Student Counsellor Name Role Phone PHYSICIAN, DEFAULT Unavailable Unavailable PHYSICIAN, DEFAULT Unavailable Unavailable PHYSICIAN, DEFAULT Unavailable Unavailable PHYSICIAN, DEFAULT Unavailable Unavailable Dennis, Aleyda Unavailable Maxi Norton Unavailable Chandler Arauz Unavailable CHRIS, DR IMSAEL Acuna Consulting Unavailable NADERER, DR MISAEL Acuna [...] Alan Perez MD, Misael Primary Care Provider [phone] MD Misael Perez Primary Care Provider DO Liliana Kaba Emergency Provider [phone] MD Meagan Roman Admit Provider MD Meagan Roman Attending Provider [phone] MD Kuldeep Almazan Other Provider MD Aleyda Bourgeois Other Provider LUL, FELIPE Acuna Referring Unavailable NADERER, MISAEL Primary Care Unavailable LUL, FELIPE Acuna Referring Unavailable NADERER, MISAEL Primary Care Unavailable YUHAS, MICHAELA Leone Referring Unavailable LUL, FELIPE Acuna Referring Unavailable NADERER, MISAEL Primary Care Unavailable LUL, FELIPE Acuna Referring Unavailable NADERER, MISAEL Primary Care Unavailable LUL, FELIPE Acuna Admitting Unavailable LUL, FELIPE Acuna Attending Unavailable LUL, FELIPE Acuna Referring Unavailable NADERER, MISAEL Primary Care Unavailable MACHADONANCY Raerdon Consulting Unavailable YUHAS, MICHAELA Leone Admitting Unavailable YUHAS, MICHAELA Leone Attending Unavailable YUHAS, MICHAELA Leone Primary Care Unavailable YUHAS, MICHAELA Leone Attending Unavailable YUHAS, MICHAELA Leone Referring Unavailable NADERER, MISAEL Referring Unavailable NADERER, MISAEL Primary Care Unavailable HERMAN JORGE Attending Unavailable NADERER, MISAEL Primary Care Unavailable DENNIS, ALEYDA Referring Unavailable NADERER, MISAEL Primary Care Unavailable MD Kuldeep Almazan Attending Provider MD Misael Perez Primary Care Provider VALERY GARCIA Attending Unavailable APLING, VALERY Ayala Referring Unavailable LUL, FELIPE Acuna Attending Unavailable YULY VALDERRAMA Attending Unavailable LUL, FELIPE Acuna Referring Unavailable NADERER, MISAEL Attending Unavailable LUL, FELIPE Acuna Attending Unavailable LUL, FELIPE Acuna Referring Unavailable NADERER, MISAEL Attending Unavailable SHAIKH BAILEY Attending Unavailable LUL, FELIPE Acuna Attending Unavailable BELEN PATRICK Attending Unavailable LUL, FELIPE Acuna Referring Unavailable JL PEPE Attending Unavailable LUL, FELIPE Acuna Referring Unavailable JL PEPE Attending Unavailable LUL, FELIPE Acuna Referring Unavailable APLINGVALERY Attending Unavailable JL PEPE Attending Unavailable LUL, FELIPE Acuna Referring Unavailable NADERER, MISAEL Attending Unavailable LUL, FELIPE Acuna Attending Unavailable LUL, FELIPE Acuna Referring Unavailable YULY VALDERRAMA Attending Unavailable FELIPE SCHAEFER Referring Unavailable JL PEPE Attending Unavailable SHAIKH BAILEY Referring Unavailable CHERY VELA Attending Unavailable MISAEL PEREZ Attending Unavailable CHERY VELA Attending Unavailable CHERY VELA Referring Unavailable Miseal Perez MD Primary Care Provider Tha LOPEZ, Kuldeep Attending Provider Asaad, Imad Admitting Unavailable Asaad, Imad Attending Unavailable Misael Perez Primary Care Unavailable Asaad, Imad Admitting Unavailable Asaad, Imad Attending Unavailable Misael Perez Primary Care Unavailable Asaad, Imad Consulting Unavailable Semaskdanuta Meagan Admitting Unavailable SemaskMeagan tipton Attending Unavailable Misael Perez Primary Care Unavailable DennisAleyda dodge Consulting Unavailable ELLEN DARNELL Attending Unavailable Allergies Allergy Classification Reported Allergen(s) Allergy Type Date of Onset Reaction(s) Facility Latex (1 source) Latex Substance Allergy 4 rash [facility] NSAIDs (1 source) Ketorolac Drug Allergy 4 Swelling of Lip/Tongue/Thro at [facility] (20 sources) Latex; Translations: [LATEX] Propensity to adverse reactions 4 rash [facility] (1 source) DULoxetine Drug Allergy [facility] (1 source) Ketorolac Drug Allergy [facility] (1 source) natural latex rubber Drug allergy (disorder) [facility] (3 sources) NSAIDs; Translations: [NSAIDS (NON-STEROIDAL ANTI-INFLAMMATO RY DRUG)] Drug allergy (disorder) 9 [facility] (11 sources) Ketorolac; Translations: [KETOROLAC] Drug Allergy 9 Rash, Facial Swelling [facility] (1 source) Non-steroidal anti-inflammato ry agent Propensity to adverse reactions to drug 9 Swelling, Rash, Facial Swelling [facility] (12 sources) Latex Allergy to substance 3 Unknown [facility] Work Phone: (9 sources) Ketorolac Propensity to adverse reactions 9 Rash [facility] (9 sources) Non-steroidal anti-inflammato ry agent Drug Intolerance 9 Swelling, Rash [facility] (1 source) Ketorolac Drug Allergy 4 [facility] (1 source) Latex Drug allergy (disorder) 4 [facility] Medications Current Medications Medication Drug Class(es) Dates Sig (Normalized) Sig (Original) acetaminophen 325 mg / oxyCODONE hydrochloride 10 mg oral tablet (20 sources) Opioid Agonist Start: 01-23-2024 End: 02-22-2024 take 1 tablet by mouth four times daily as needed for pain oxyCODONE-acetami nophen (Percocet) 10-325 MG tablet Indications: DDD (degenerative disc disease), cervical Take 1 tablet by mouth 4 (four) times a day as needed for severe pain or moderate pain 120 tablet 01/23/2024 02/22/2024 Active Start: 12-04-2023 End: 01-03-2024 take 1 tablet by mouth four times daily as needed for pain oxyCODONE-acetaminophen (Percocet) 10-32 5 MG tablet Indications: DDD (degenerative disc disease), cervical Take 1 tablet by mouth 4 (four) times a day as needed for severe pain or moderate pain 120 tablet 12/04/2023 01/03/2024 Active Start: 07-13-2023 take 1 tablet by bi th every six hours as needed for pain Oxycodone-Acetaminophen 10-325 mg tablet Active 1 TAB PO Every 6 hours as needed for pain July 12, 2023 11:00pm Start: 03-22-2023 take 1 tablet by bi [...] mg oral tablet (20 sources) Bisphosphonate Start: 10-17-2023 End: 10-16-2024 take 1 tablet by mouth in the morning alendronate (Fosamax) 70 MG tablet Indications: Primary osteoarthritis, unspecified site Take 1 tablet (70 mg) by mouth every 7 (seven) days Take in the morning with a full glass of water, on an empty stomach, and do not take anything else by mouth or lie down for the next 30 min. 12 tablet 3 10/17/2023 10/16/2024 Active Start: 07-13-2023 take 1 tablet by bi th every week Alendronate 70 mg tablet Active 70 MG PO every week July 12, 2023 11:00pm Start: 08-24-2017 alendronate (F OSAMAX) 70 mg tablet Take 1 tablet (70 mg total) by mouth every 7 days. 12 tablet 1 08/24/2017 Active take 1 tablet by bi th every week alendronate (Fosamax) 70 MG tablet 1 tablet Orally once a week 0 Active amoxicillin 500 mg oral tablet (3 sources) Penicillin-class Antibacterial Start: 01-11-2024 take 4 tablets by mouth once at mealtime amoxicillin (Amoxil) 500 MG tablet Indications: Status post right knee replacement 4 tabs PO once 30-60 mins before procedure with food 4 tablet 3 01/11/2024 Active Start: 01-11-2024 take 4 tablets by mo [facility] once at mealtime amoxicillin (Amoxil) 500 MG tablet Indications: Status post right knee replacement 4 tabs PO once 30-60 mins before procedure with food 4 tablet 3 01/11/2024 Active atorvastatin 10 mg oral tablet (20 sources) HMG-CoA Reductase Inhibitor Start: 04-06-2023 End: 04-05-2024 take 1 tablet by mouth in the morning atorvastatin (Lipitor) 10 MG tablet Indications: Dyslipidemia (CMS/HCC) Take 1 tablet (10 mg) by mouth in the morning. 30 tablet 11 04/06/2023 04/05/2024 Active Start: 10-12-2018 take 1 tablet by bi th once daily atorvastatin (LIPITOR) 10 mg tablet Indications: Mixed hyperlipidemia TAKE ONE TABLET BY MOUTH DAILY 90 tablet 10 10/12/2018 Active clonazePAM 0.5 mg oral tablet (7 sources) Benzodiazepine take 1 tablet by mouth at bedtime clonazePAM (KlonoPIN) 0.5 MG tablet 1 tablet at bedtime Orally 1-2 times per day 0 Active CoQ-10 400 MG (13 sources) take 1 capsule by mouth once daily CoQ-10 400 MG 1 capsule with a meal Orally Once a day for 30 day(s) Active epoetin anjana 21092 unt/ml injectable solution (1 source) Erythropoiesis-stimulat ing Agent Procrit 47739 UNIT/ML as directed Injection once a month Active ferrous sulfate 325 mg oral tablet (20 sources) Start: take 1 tablet by mouth once daily Ferrous Sulfate 325 mg (65 mg iron) tablet Active 325 MG PO Daily July 12, 2023 11:00pm take 1 tablet by mouth once walt y Ferrous Sulfate 325 (65 Fe) MG 1 tablet Orally Once a day for 90 day(s) Active furosemide 40 mg oral tablet (20 sources) Loop Diuretic Start: 01-02-2023 End: 08-01-2023 furosemide (Lasix) 40 MG tablet 01/02/2023 Active take 1 tablet by bi every twenty-four hours Lasix 20 MG 1 tablet Orally Once a day for 90 day(s) Active gabapentin 100 mg oral capsule (20 sources) Anti-epileptic Agent Start: 11-27-2023 End: 02-25-2024 take 1 capsule by mouth every eight hours gabapentin (Neurontin) 100 MG capsule Indications: Paresthesia of both feet Take 1 capsule (100 mg) by mouth every 8 (eight) hours 90 capsule 2 11/27/2023 02/25/2024 Active Start: 08-14-2023 take 1 capsule by [facility] three times daily Gabapentin 100 mg capsule Active 100 MG PO Three times daily August 13, 2023 11:00pm Start: 02-21-2023 End: 05-22-2023 take 1 capsule by mouth every eight hours gabapentin (Neurontin) 100 MG capsule Indications: Paresthesia of both feet Take 1 capsule (100 mg) by mouth every 8 (eight) hours 90 capsule 2 02/21/2023 05/22/2023 Active take 1 capsule by mo [facility] every eight hours Gabapentin 100 MG 1 capsule Orally THREE TIMES A DAY Active glucosamine sulfate 500 mg oral tablet (20 sources) Start: 07-13-2023 take 1 tablet by mouth once daily Glucosamine Sulfate 500 mg tablet Active 500 MG PO Daily July 12, 2023 11:00pm take 1 tablet by bi th every twenty-four hours Glucosamine 500 mg 1 tablet Orally Daily Active 10 ml iron sucrose 20 mg/ml injection (6 sources) Parenteral Iron Replacement Start: 08-21-2023 Iron Sucrose (Venofer) 200 mg iron/10 mL solution Active 200 MG IV Q3D August 20, 2023 11:00pm administer over 30 mins metFORMIN hydrochloride 1000 mg oral tablet (8 sources) Biguanide take 1 tablet by mouth twice daily at mealtime metFORMIN HCl 1000 mg 1 tablet with meals Orally Twice a day Active 24 hr metoprolol succinate 50 mg extended release oral tablet (15 sources) beta-Adrenergic Raquel Start: 01-02-2024 take 1 tablet by mouth every twenty-four hours Metoprolol Succinate 50 mg tablet extended release 24 hr Active MG PO January 01, 2024 11:00pm Start: 01-02-2024 Metoprolol Suc cinate Active MG PO January 02, 2024 12:00am Start: 12-04-2023 take 1 tablet by [facility] once daily metoprolol succinate XL (Toprol-XL) 50 MG 24 hr tablet Indications: Paroxysmal atrial fibrillation (CMS/HCC) , Chronic diastolic congestive heart failure (CMS/HCC) Take 1 tablet (50 mg) by mouth Daily Do not crush or chew. 90 tablet 3 12/04/2023 Active Start: 08-14-2023 End: 11-22-2023 take 1 tablet by mouth once daily Metoprolol Succinate 50 mg tablet extended release 24 hr Discontinued 50 MG PO Daily August 13, 2023 11:00pm November 22, 2023 9:31am OXcarbazepine 150 mg oral tablet (13 sources) Anti-epileptic Agent take 1 tablet by mouth every twenty-four hours Trileptal 150 MG 1 Tablet Orally ONCE A DAY Active take 1 tablet by [facility] three times daily as needed Trileptal 150 MG 1 Tablet Orally THREE TIMES A DAY,As needed Active pantoprazole 40 mg delayed release oral tablet (20 sources) Proton Pump Inhibitor Start: 10-10-2023 End: 10-10-2023 take 1 tablet by mouth once daily Pantoprazole (Protonix) 40 mg tablet,delayed release (DR/EC) Active 40 MG PO Daily 90 90 October 10, 2023 12:20pm Start: 08-15-2023 End: 10-10-2023 take 1 tablet by mouth twice daily Pantoprazole (Protonix) 40 mg tablet,delayed release (DR/EC) Discontinued 40 MG PO Twice daily August 21, 2023 9:21am October 10, 2023 12:20pm Start: 07-13-2023 End: 08-15-2023 take 1 tablet by mouth once daily Pantoprazole (Protonix) 40 mg tablet,delayed release (DR/EC) Discontinued 40 MG PO Daily July 12, 2023 11:00pm August 15, 2023 1:29pm traMADol hydrochloride 50 mg oral tablet (3 sources) Opioid Agonist End: 04-10-2023 traMADol (Ultram) 50 MG tablet every 6 (six) hours. 0 04/10/2023 Discontinued (Med list cleanup) ubidecarenone 400 mg oral capsule (13 sources) Start: 07-13-2023 take 10 capsules by mouth once daily Coenzyme Q10 400 mg capsule Active 400 MG PO Daily July 12, 2023 11:00pm take 1 capsule by mo [facility] every twenty-four hours CoQ-10 400 MG [...] 1 tablet by mouth once daily Amlodipine 10 mg tablet Discontinued 0 .ROUTE .COMPLEX May 09, 2023 4:04pm August 14, 2023 3:22pm TAKE 1 TABLET BY MOUTH DAILY Start: 04-24-2023 End: 05-09-2023 take 1 tablet by mouth once daily Amlodipine 10 mg tablet Discontinued 10 MG PO Daily April 24, 2023 12:00am May 09, 2023 4:04pm Start: 12-28-2016 take 1 tablet by bi th once daily amLODIPine (NORVASC) 10 mg tablet Take 1 tablet (10 mg total) by mouth respiratory nightly. 0 12/28/2016 Active cholecalciferol 0.05 mg oral capsule (20 sources) Vitamin D Start: 07-13-2023 End: 01-02-2024 take 1 capsule by mouth once daily Cholecalciferol (Vitamin D3) 50 mcg (2,000 unit) capsule Discontinued 2000 UNIT PO Daily July 12, 2023 11:00pm January 02, 2024 12:13pm ergocalciferol 1.25 mg oral capsule (1 source) [...] a day for 90 day(s) Jan, Active lisinopril 5 mg oral tablet (20 sources) Angiotensin Converting Enzyme Inhibitor Start: 12-06-2023 End: 12-07-2023 take 1 tablet by mouth once daily Lisinopril 5 mg tablet Discontinued 0 .ROUTE .COMPLEX 90 December 06, 2023 5:06pm December 07, 2023 2:52pm TAKE 1 TABLET BY MOUTH DAILY Start: 12-10-2020 End: 12-06-2023 take 1 tablet by mouth once daily Lisinopril 5 mg tablet Discontinued 5 MG PO Daily July 12, 2023 11:00pm December 06, 2023 5:10pm LORazepam 0.5 mg oral tablet (4 sources) Benzodiazepine Start: 04-10-2023 End: 04-11-2023 LORazepam (Ativan) 0.5 MG tablet Indications: Arthritis of right knee , Internal derangement of right knee Take 1 tablet (0.5 mg) by mouth See administration instructions for 1 dose 1 by mouth 1 hour prior to MRI 1 tablet 0 04/10/2023 04/11/2023 Discontinued (Therapy completed) polyethylene glycol 3350 [id number] mg / potassium chloride 2970 mg / sodium bicarbonate 6740 mg / sodium chloride 5860 mg / sodium sulfate 95346 mg powder for oral solution (1 source) Osmotic Laxative Start: 02-28-2023 End: 03-08-2023 polyethylene glycol (GOLYTELY) 236-22.74-6.74 -5.86 gram solution Indications: Iron deficiency anemia, unspecified iron deficiency anemia type , Stage 3 chronic kidney disease, unspecified whether stage 3a or 3b CKD ([facility]) Take 240 mL by mouth [...] Problem Date Documented Date Episodic/Chronic Anxiety disorders (7 sources) Generalized anxiety disorder; Translations: [Generalized anxiety [...] malignant neoplasm of kidney] Episodic Cardiac dysrhythmias (7 sources) Unspecified atrial fibrillation; Translations: [Paroxysmal atrial fibrillation] Onset: 4 07-27-2023 Chronic Cardiac dysrhythmias (2 sources) Bradycardia, unspecified; Translations: [Bradycardia, unspecified] Onset: 4 Episodic Chronic kidney disease (20 sources) Chronic kidney disease stage 2; Translations: [Chronic kidney disease, stage 2 (mild)] Onset: 4 04-18-2023 Chronic Chronic kidney disease (13 sources) Chronic kidney disease; Translations: [Chronic kidney disease, stage 3 unspecified] Onset: 1 Resolved: 1 Congestive heart failure; nonhypertensive (5 sources) Chronic diastolic heart failure; Translations: [Chronic diastolic (congestive) heart failure] Onset: 4 07-27-2023 Chronic Deficiency and other anemia (17 sources) Anemia in chronic kidney disease; Translations: [Anemia in chronic kidney disease] Chronic Deficiency and other anemia (6 sources) Anemia in chronic kidney disease; Translations: [Anemia in chronic kidney disease D63.1] Onset: 1 Resolved: 1 Chronic Deficiency and other anemia (5 sources) Anemia co-occurrent and due to chronic kidney disease stage 3; Translations: [Anemia due to stage 3b chronic kidney disease (HCC)] Onset: 3 06-06-2023 Chronic Deficiency and other anemia (5 sources) Iron deficiency anemia due to blood loss; Translations: [Iron 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 (chronic)] Onset: 4 08-22-2023 Chronic Deficiency and other anemia (5 sources) Iron deficiency anemia; Translations: [Iron deficiency anemia, unspecified] Onset: 3 02-28-2023 Episodic Deficiency and other anemia (8 sources) Anemia; Translations: [Anemia, unspecified] 08-15-2023 Episodic [...] Onset: 3 Chronic Disorders of lipid metabolism (20 sources) Hyperlipidemia, unspecified; Translations: [Hypercholesterolemia] Onset: 2 Resolved: 4 04-11-2023 Chronic Essential hypertension (20 sources) Hypertensive disorder; Translations: [Hypertension, unspecified] Onset: 2 04-18-2023 Chronic Fluid and electrolyte disorders (20 sources) Hyperkalemia; Translations: [Hyperkalemia] Onset: 4 Episodic Gastritis and duodenitis (17 sources) Atrophic gastritis; Translations: [Chronic atrophic 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] Onset: 4 03-08-2023 Chronic Genitourinary symptoms and ill-defined conditions (20 sources) Proteinuria, unspecified; Translations: [Proteinuria] Onset: 1 Resolved: 2 Episodic Heart valve disorders (18 sources) Non-rheumatic mitral regurgitation ; Translations: [Nonrheumatic [...] injury, right knee, initial encounter] 04-18-2023 Episodic Nutritional deficiencies (20 sources) Vitamin D deficiency; Translations: [Vitamin D deficiency, unspecified] Onset: 1 Resolved: 1 Chronic Osteoarthritis (20 sources) Osteoarthritis of knee; Translations: [Osteoarthritis of knee, unspecified] Onset: 3 08-12-2022 Chronic Other aftercare (1 source) Patient encounter status; Translations: [Other [facility] (current) drug therapy] 04-18-2023 Episodic Other connective tissue disease (7 sources) History of total knee arthroplasty; Translations: [Presence of right artificial knee joint] Onset: 4 07-27-2023 Chronic Other diseases of kidney and ureters (17 sources) Secondary hyperparathyroidism; Translations: [Secondary hyperparathyroidism of renal origin] Chronic Other diseases of kidney and ureters (1 source) Kidney disease; Translations: [Disorder of kidney and ureter, unspecified] 08-14-2023 Episodic Other gastrointestinal disorders (8 sources) Occult blood in stools; Translations: [Other fecal abnormalities] 08-14-2023 Episodic Other gastrointestinal disorders (2 sources) Personal history of other diseases of the digestive system; Translations: [Personal history of other diseases of the digestive system] Onset: 4 Episodic Other lower respiratory disease (2 sources) Shortness of breath; Translations: [Shortness of breath] Onset: 4 Episodic Other non-traumatic joint disorders (4 sources) Pain in right knee; Translations: [Pain in joint, lower leg] 04-07-2023 Episodic Other nutritional; endocrine; and metabolic disorders (2 sources) Obesity, unspecified; Translations: [OBESITY UNSPECIFIED] Onset: 2 Chronic Other nutritional; endocrine; and metabolic disorders (8 sources) Body mass index 30+ - obesity; Translations: [Obesity, unspecified] Onset: 4 04-18-2023 Chronic Other nutritional; endocrine; and metabolic disorders (20 sources) Hyperuricemia without signs of inflammatory arthritis and tophaceous disease; Translations: [Other abnormal blood chemistry] Onset: 2 Episodic Other nutritional; endocrine; and metabolic disorders (9 sources) Hyperuricemia; Translations: [Hyperuricemia without signs of inflammatory arthritis and tophaceous disease] 07-13-2023 Episodic Other screening for suspected conditions (not mental disorders or infectious disease) (2 sources) Abnormal electrocardiogram [ECG] [EKG]; Translations: [Abnormal electrocardiogram (ECG) (EKG)] Onset: 4 Episodic Pulmonary heart disease (2 sources) Pulmonary hypertension, unspecified; Translations: [Pulmonary hypertension, unspecified] Onset: 4 Chronic Spondylosis; intervertebral disc disorders; other back problems (13 sources) Degeneration of cervical intervertebral disc; Translations: [Other cervical disc degeneration, unspecified cervical region] Onset: 4 04-18-2023 Chronic Unclassified (4 sources) CHRN KIDNEY DISEASE STG 3 UNSP; Translations: [CHRN KIDNEY DISEASE STG 3 UNSP] Onset: 2 Unclassified (1 source) right knee degenerative joint disease Onset: 4 Past or Other Problems Problem Classification Problem Date Documented Da te Episodic/Chronic Acute posthemorrhagic anemia (13 sources) Acute posthemorrhagic anemia; Translations: [Acute posthemorrhagic anemia] Onset: 08-14-2023 08-15-2023 Episodic Deficiency and other anemia (7 sources) Anemia, unspecified; Translations: [Anemia, unspecified] Onset: 08-14-2023 08-15-2023 Episodic Gastritis and duodenitis (13 sources) Acute hemorrhagic gastritis; Translations: [Gastritis, unspecified, with bleeding] Onset: 08-14-2023 08-15-2023 Episodic Mood disorders (7 sources) Recurrent major depressive episodes, mild ; Translations: [Major depressive disorder, recurrent, mild] Onset: 04-18-2023 Resolved: 06-06-2023 04-18-2023 Chronic Mood disorders (1 source) Mood disorders Onset: 02-28-2023 02-28-2023 Other aftercare (2 sources) Other [facility] (current) drug therapy; Translations: [OTH [employer] AND [employer]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] Onset: 11-01-2021 Episodic Other aftercare (5 sources) Post-discharge follow-up; Translations: [Encounter for follow-up examination after completed treatment for conditions other than malignant neoplasm] Onset: 07-27-2023 Resolved: 12-04-2023 12-04-2023 Episodic Other and unspecified benign neoplasm (10 sources) Polyp of sigmoid colon; Translations: [Polyp of colon] Onset: 03-08-2023 03-08-2023 Episodic Other connective tissue disease (9 sources) History of cervical spine fusion; Translations: [Arthrodesis status] Onset: 08-26-2013 04-11-2023 Episodic Other diseases of kidney and ureters (2 sources) Disorder of kidney and ureter, unspecified; Translations: [Unspecified disorder of kidney and ureter] Onset: 08-14-2023 08-14-2023 Episodic Other gastrointestinal disorders (7 sources) Other fecal abnormalities; Translations: [Nonspecific abnormal findings in stool contents] Onset: 08-14-2023 08-15-2023 Episodic Residual codes; unclassified (7 sources) Bilateral lower limb edema; Translations: [Localized edema] Onset: 04-18-2023 04-18-2023 Episodic Spondylosis; intervertebral disc disorders; other back problems (9 sources) Neck pain; Translations: [Cervicalgia] Onset: 08-26-2013 Resolved: 12-04-2023 04-11-2023 Episodic Unclassified (1 source) CHRN KIDNEY DISEASE STG 3 UNSP; Translations: [CHRN KIDNEY DISEASE STG 3 UNSP] Onset: 03-15-2022 Varicose veins of lower extremity (7 sources) Varicose veins of lower extremity; Translations: [Varicose veins of bilateral lower extremities with pain] Onset: 04-18-2023 04-18-2023 Episodic Results Test Name Value Interpretation Reference Range Facility Office Visiton 01-24-2024 Follow-up visit [id number] ElanthangMalgorzata R 1945 F Date Provider Department Center 01/24/2024 ELLEN ECHEVERRIA CARD [facility] Family History Problem Relation Age of Onset Hypertension Brother Family Status - Relation Status Age at Brother Level of Service:49537 UT OFFICE/OP CONSLTJ NEW/EST PT HIGH MDM 55 MINUTES Normal [facility] XR Knee - right 1 or 2 Views on 01-11-2024 Imaging Result: Standing AP and LAT of right knee showed surgical position and alignment of prosthetic components without evidence of loosening or wear to the femoral, tibial, or patellar components. The alignment appeared to be anatomic. There was no evidence of accelerated or asymmetric wear to the patellar button or tibial tray. There was no evidence of fracture and/or dislocation. Impression: Stable RT total knee replacement. 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 [facility] Radiology Study observation (narrative) [facility] Erythrocyte distribution wid th Auto (RBC) [Ratio]on 12-26-2023 Erythrocyte distribution width (RBC) [Ratio] 14.0 % 11.0-15.0 [facility] Erythrocyte distribution width (RBC) [Ratio] Erythrocyte distribution width [Ratio] by Automated count 11.0-15.0 [facility] Estimated glomerular filtrat ion rate (GFR) non- Americanon 12-26-2023 GFR/1.73 sq M.predicted among non-blacks MDRD (S/P/Bld) [Vol rate/Area] 31 mL/min/{1.73_m2} Low >=60 mL/min/1.73m 2 [facility] GFR/1.73 sq M.predicted among non-blacks MDRD (S/P/Bld) [Vol rate/Area] Estimated glomerular filtration rate (GFR) non- Low >=60 mL/min/1.73m 2 [facility] HMHP CBC WITH PLATELET NO DI FFERENTIALon 12-26-2023 Erythrocyte distribution width (RBC) [Ratio] 14 % 11.0 - 15.0 % [facility] Hematocrit (Bld) [Volume fraction] 33 % Low 36.0 - 48.0 % [facility] Interpretation and review of laboratory results Abnormal [facility] TB PLT 251 [facility] RBC 3.48 Low [facility] TB WBC 7.4 [facility] Hematocrit Auto (Bld) [Volum e fraction]on 12-26-2023 Hematocrit (Bld) [Volume fraction] 33.0 % Low 36.0-48.0 [facility] Hematocrit (Bld) [Volume fraction] Hematocrit [Volume Fraction] of Blood by Automated count Low 36.0-48.0 [facility] Hemoglobin [Mass/volume] in Bloodon 12-26-2023 Hemoglobin (Bld) [Mass/Vol] 10.5 g/dL Low 12.0-16.0 [facility] Hemoglobin (Bld) [Mass/Vol] Hemoglobin [Mass/volume] in Blood Low 12.0-16.0 [facility] Iron binding capacity [Mass/ volume] in Serum or Plasmaon 12-26-2023 Iron binding capacity [Mass/Vol] 284.0 ug/dL 250.0-450.0 [facility] Iron binding capacity [Mass/Vol] Iron binding capacity [Mass/volume] in Serum or Plasma 250.0-450.0 [facility] Iron saturation [Mass Fracti on] in Serum or Plasmaon 12-26-2023 Iron saturation [Mass fraction] 32.7 % [facility] Iron saturation [Mass fraction] Iron saturation [Mass Fraction] in Serum or Plasma [facility] Laboratory - Chemistry and C hemistry - challengeon 12-26-2023 Albumin [Mass/Vol] 4.3 g/dL 3.4-5.0 [facility] Calcium [Mass/Vol] 10.2 mg/dL High 8.5-10.1 [facility] Chloride [Moles/Vol] 107 mmol/L 98-107 [facility] CO2 [Moles/Vol] 25.6 mmol/L 21.0-32.0 [facility] Creatinine [Mass/Vol] 1.60 mg/dL High 0.55-1.02 [facility] Ferritin [Mass/Vol] 328.0 ng/mL High 8.0-252.0 [facility] GFR/1.73 sq M.predicted MDRD (S/P/Bld) [Vol rate/Area] 38 mL/min/{1.73_m2} Low >=60 mL/min/1.73m 2 [facility] Glucose [Mass/Vol] 102 mg/dL 74-106 [facility] Iron [Mass/Vol] 93.0 ug/dL 50.0-170.0 [facility] Magnesium [Mass/Vol] 2.0 mg/dL 1.8-2.4 [facility] Potassium [Moles/Vol] 5.6 mmol/L High 3.5-5.1 [facility] Sodium [Moles/Vol] 145 mmol/L 136-145 [facility] Urea nitrogen [Mass/Vol] 33.0 mg/dL High 7.0-18.0 [facility] Urea nitrogen/Creatinine [Mass ratio] 20.6 mg/mg [facility] Leukocytes [#/volume] correc azul for nucleated erythrocytes in Blood by Automated counon 12-26-2023 WBC corrected for nucl RBC Auto (Bld) [#/Vol] 7.4 10 3/uL 4.0-11.0 [facility] WBC corrected for nucl RBC Auto (Bld) [#/Vol] Leukocytes [#/volume] corrected for nucleated erythrocytes in Blood by Automated coun 4.0-11.0 [facility] MCH Auto (RBC) [Entitic mass ]on 12-26-2023 MCH (RBC) [Entitic mass] MCH [Entitic ma ss] by Automated count 26.7-34.0 [facility] MCH [Entitic mass] by Automa azul counton 12-26-2023 MCH (RBC) [Entitic mass] 30.2 pg 26.7-34.0 [facility] MCHC Auto (RBC) [Mass/Vol]on 12-26-2023 MCHC (RBC) [Mass/Vol] MCHC [Mass/volume] by Automated count 29.9-35.2 [facility] MCHC [Mass/volume] by Automa azul counton 12-26-2023 MCHC (RBC) [Mass/Vol] 31.8 g/dL 29.9-35.2 [facility] MCV Auto (RBC) [Entitic vol] on 12-26-2023 MCV (RBC) [Entitic vol] MCV [Entitic volume] by Automated count 81.0-99.0 [facility] MCV [Entitic volume] by Auto mated counton 12-26-2023 MCV (RBC) [Entitic vol] 94.8 fL 81.0-99.0 N [facility] No Panel Informationon 12-25 Phosphorus Level 4.6 mg/dL 2.6-4.7 [facility] Platelet mean volume Auto (B ld) [Entitic vol]on 12-26-2023 Platelet mean volume (Bld) [Entitic vol] Platelet mean volume [Entitic volume] in Blood by Automated count 9.5-13.5 [facility] Platelet mean volume [Entiti c volume] in Blood by Automated counton 12-26-2023 Platelet mean volume (Bld) [Entitic vol] 10.4 fL 9.5-13.5 [facility] Platelets Auto (Bld) [#/Vol] on 12-26-2023 Platelets (Bld) [#/Vol] 251 10 3/uL 150-450 [facility] Platelets (Bld) [#/Vol] Platelets [#/volume] in Blood by Automated count 150-450 [facility] RBC Auto (Bld) [#/Vol]on RBC (Bld) [#/Vol] 3.48 10 6/uL Low 4.20-5.40 [facility] RBC (Bld) [#/Vol] Erythrocytes [#/volume] in Blood by Automated count Low 4.20-5.40 [facility] Serum or plasma anion gap de terminationon 12-26-2023 Anion gap [Moles/Vol] 18.0 mmol/L [facility] Anion gap [Moles/Vol] Serum or plasma anion gap determination [facility] COMPLETE BLOOD COUNTon 09-17 Erythrocyte distribution width (RBC) [Ratio] 15.4 % [facility] Comment on above: Performed By: #### C BCA, BMP, LIVR, 02303-5, 3016-3, 16625-1 #### [facility] ([id number]) [address], [address] [place] [address] Hematocrit (Bld) [Volume fraction] 30.2 % Low [facility] Comment on above: Performed By: #### C BCA, BMP, LIVR, 09438-0, 3016-3, 08687-4 #### [facility] ([id number]) [address], [address] [place] [address] Hemoglobin (Bld) [Mass/Vol] 10.1 g/dL [facility] Comment on above: Performed By: #### C BCA, BMP, LIVR, 99989-2, 3016-3, 26195-7 #### [facility] ([id number]) [address], [address] [place] [address] MCH (RBC) [Entitic mass] 29.9 pg [facility] Comment on above: Performed By: #### C BCA, BMP, LIVR, 93585-6, 3016-3, 79419-9 #### [facility] ([id number]) [address], [address] [place] [address] MCHC (RBC) [Mass/Vol] 33.6 g/dL [facility] Comment on above: Performed By: #### C BCA, BMP, LIVR, 91565-9, 3016-3, 21901-8 #### [facility] ([id number]) [address], [address] [place] [address] MCV (RBC) [Entitic vol] 89 fL [facility] Comment on above: Performed By: #### C BCA, BMP, LIVR, 54073-9, 3016-3, 16540-5 #### [facility] ([id number]) [address], [address] [place] [address] Platelet mean volume (Bld) [Entitic vol] 9.3 fL [facility] Comment on above: Performed By: #### C BCA, BMP, LIVR, 19814-3, 3016-3, 97806-3 #### [facility] ([id number]) [address], [address] [place] [address] Platelets (Bld) [#/Vol] 221 10*3/uL [facility] Comment on above: Performed By: #### C BCA, BMP, LIVR, 99654-6, 3016-3, 73559-6 #### [facility] ([id number]) [address], [address] [place] [address] RBC COUNT 3.39 X10E12/L Low 3.80-5.20 [facility] Comment on above: Performed By: #### C BCA, BMP, LIVR, 28385-7, 3016-3, 07487-7 #### [facility] ([id number]) [address], [address] [place] [address] WBC (Bld) [#/Vol] 5.6 10*3/uL [facility] Comment on above: Performed By: #### C BCA, BMP, LIVR, 74553-9, 3016-3, 55757-2 #### [facility] ([id number]) [address], [address] [place] [address] FERRITINon 09-18-2023 Ferritin [Mass/Vol] 352 ng/mL [facility] Comment on above: Performed By: #### C BCA, BMP, LIVR, 11320-9, 3016-3, 66112-0 #### [facility] ([id number]) [address], [address] [place] [address] IRON PROFILEon 09-18-2023 Iron [Mass/Vol] 77 ug/dL [facility] Comment on above: Performed By: #### C BCA, BMP, LIVR, 92284-1, 3016-3, 07079-0 #### [facility] ([id number]) [address], [address] [place] [address] IRON BINDING 246 ug/dL Low 250-425 [facility] Comment on above: Performed By: #### C BCA, BMP, LIVR, 79119-0, 3016-3, 80287-0 #### [facility] ([id number]) [address], [address] [place] [address] IRON SATURATION 31 % SATURATION Normal 15-50 [facility] Comment on above: Performed By: #### C BCA, BMP, LIVR, 25011-0, 3016-3, 81955-1 #### [facility] ([id number]) [address], [address] [place] [address] Laboratory - Hematology and Cell countson 09-18-2023 RBC (Bld) [#/Vol] 3.39 10*6/uL [facility] No Panel Informationon 09-17 Estimated GFR (Non- 40 mL/min Low [facility] Iron Saturation 31 [facility] Phosphorus Level 4.6 mg/dL [facility] Total Iron Binding Capacity 246 [facility] RENAL PANELon 09-18-2023 Albumin [Mass/Vol] 4.6 g/dL [facility] Comment on above: Performed By: #### C BCA, BMP, LIVR, 48348-9, 3016-3, 21363-7 #### [facility] ([id number]) [address], [address] [place] [address] Anion gap [Moles/Vol] 12 mmol/L Normal 5-15 [facility] Comment on above: Performed By: #### C BCA, BMP, LIVR, 97165-9, 3016-3, 08250-1 #### [facility] ([id number]) [address], [address] [place] [address] Calcium [Mass/Vol] 9.5 mg/dL [facility] Comment on above: Performed By: #### C BCA, BMP, LIVR, 31937-7, 3016-3, 20173-7 #### [facility] ([id number]) [address], [address] [place] [address] Chloride [Moles/Vol] 102 mmol/L [facility] Comment on above: Performed By: #### C BCA, BMP, LIVR, 97882-4, 3016-3, 08684-6 #### [facility] ([id number]) [address], [address] [place] [address] CO2 [Moles/Vol] 27 mmol/L [facility] Comment on above: Performed By: #### C BCA, BMP, LIVR, 31621-0, 3016-3, 83771-0 #### [facility] ([id number]) [address], [address] [place] [address] Creatinine [Mass/Vol] 1.37 mg/dL [facility] Comment on above: Result Comment: METH OD TRACEABLE TO IDMS STANDARD Performed By: #### C BCA, BMP, LIVR, 73850-2, 3016-3, 29305-3 #### [facility] ([id number]) [address], [address] [place] [address] GFR/1.73 sq M.predicted among non-blacks MDRD (S/P/Bld) [Vol rate/Area] 40 mL/min/{1.73_m2} Low >59 [facility] Comment on above: Result Comment: Reported eGFR is based on the CKD-EPI 2020 equation that does not use a race coefficient. Performed By: #### C BCA, BMP, LIVR, 79977-8, 3016-3, 39848-3 #### [facility] ([id number]) [address], [address] [place] [address] Glucose [Mass/Vol] 93 mg/dL [facility] Comment on above: Performed By: #### C BCA, BMP, LIVR, 62594-7, 3016-3, 29746-0 #### [facility] ([id number]) [address], [address] [place] [address] Phosphate [Mass/Vol] 4.6 mg/dL Normal 2.4-4.9 [facility] Comment on above: Performed By: #### C BCA, BMP, LIVR, 54797-5, 3016-3, 81341-5 #### [facility] ([id number]) [address], [address] [place] [address] Potassium [Moles/Vol] 4.8 mmol/L [facility] Comment on above: Performed By: #### C BCA, BMP, LIVR, 47200-8, 3016-3, 75054-1 #### [facility] ([id number]) [address], [address] [place] [address] Sodium [Moles/Vol] 141 mmol/L [facility] Comment on above: Performed By: #### C BCA, BMP, LIVR, 99035-1, 3016-3, 90556-6 #### [facility] ([id number]) [address], [address] [place] [address] Urea nitrogen [Mass/Vol] 24 mg/dL [facility] Comment on above: Performed By: #### C BCA, BMP, LIVR, 64825-4, 3016-3, 63852-2 #### [facility] ([id number]) [address], [address] [place] [address] Automated basophil %Ordered By: Meagan Roman on 08-15-2023 Basophils/100 WBC (Bld) 0.8 % Normal . [facility] Comment on above: Performed By: #### C BC, TIBC, RADHA, [id number], FE, CMP #### [address] Automated basophil countOrde red By: Meagan Roman on 08-15-2023 Basophils (Bld) [#/Vol] 0.0 10*3/uL Normal 0.0-0.2 [facility] Comment on above: Result Comment: PERF ORMED BY: [place] [address] PATHOLOGIST ORGANIC SEARCH LEAD LATONIA BRAND M.D. Performed By: #### C BC, TIBC, RADHA, [id number], FE, CMP #### [address] Automated blood monocyte cou ntOrdered By: Meagan Roman on 08-15-2023 Monocytes (Bld) [#/Vol] 0.5 10*3/uL Normal 0.0-0.8 [facility] Comment on above: Performed By: #### C BC, TIBC, RADHA, [id number], FE, CMP #### [address] Automated eosinophil %Ordere d By: Meagan Roman on 08-15-2023 Eosinophils/100 WBC (Bld) 5.1 % Normal . [facility] Comment on above: Performed By: #### C BC, TIBC, RADHA, [id number], FE, CMP #### [address] Automated eosinophil countOr dered By: Meagan Roman on 08-15-2023 Eosinophils (Bld) [#/Vol] 0.2 10*3/uL Normal 0.0-0.45 [facility] Comment on above: Performed By: #### C BC, TIBC, RADHA, [id number], FE, CMP #### [address] Automated monocyte %Ordered By: Meagan Roman on 08-15-2023 Monocytes/100 WBC (Bld) 9.7 % Normal . [facility] Comment on above: Performed By: #### C BC, TIBC, RADHA, [id number], FE, CMP #### [address] Automated neutrophil %Ordere d By: Meagan Roman on 08-15-2023 Neutrophils/100 WBC (Bld) 57.5 % Normal . [facility] Comment on above: Performed By: #### C BC, TIBC, RADHA, [id number], FE, CMP #### [address] Basic Metabolic Panelon 08-04 Creatinine Clr Calc Pharmacy 37.31 Normal [facility] Comment on above: Result Comment: PERF ORMED BY: [place] [address] PATHOLOGIST ORGANIC SEARCH LEAD LATONIA BRAND M.D. Performed By: #### C BC, TIBC, RADHA, [id number], FE, CMP #### [address] GFR/1.73 sq M.predicted MDRD (S/P/Bld) [Vol rate/Area] 43.688 mL/min/{1.73_m2} Normal [facility] Comment on above: Performed By: #### C BC, TIBC, RADHA, [id number], FE, CMP #### [address] Calcium [Mass/volume] in Ser um or PlasmaOrdered By: Meagan Roman on 08-15-2023 Calcium [Mass/Vol] 9.0 mg/dL Normal 8.6-10.3 [facility] Comment on above: Performed By: #### C BC, TIBC, RADHA, [id number], FE, CMP #### [address] Carbon dioxide, total [Moles /volume] in Serum or PlasmaOrdered By: Meagan Roman on 08-15-2023 CO2 [Moles/Vol] 25.5 mmol/L Normal 21.0-31.0 [facility] Comment on above: Performed By: #### C BC, TIBC, RADHA, [id number], FE, CMP #### [address] Chloride [Moles/volume] in S matthew or PlasmaOrdered By: Meagan Roman on 08-15-2023 Chloride [Moles/Vol] 106 mmol/L Normal 98-107 [facility] Comment on above: Performed By: #### C BC, TIBC, RADHA, [id number], FE, CMP #### [address] Complete Blood Count Auto Di ffon 08-15-2023 Hematocrit (Bld) [Volume fraction] 26.1 % Low 34.0-46.4 [facility] Comment on above: Performed By: #### C BC, TIBC, RADHA, [id number], FE, CMP #### [address] Hemoglobin (Bld) [Mass/Vol] 8.8 g/dL Low 11.8-15.4 [facility] Comment on above: Performed By: #### C BC, TIBC, RADHA, [id number], FE, CMP #### [address] Mean Corpuscular HGB Conc 33.6 g/dL Normal 32.0-35.0 [facility] Comment on above: Performed By: #### C BC, TIBC, RADHA, [id number], FE, CMP #### [address] NRBC% 0.1 /100{WBC} Normal 0-0.5 [facility] Comment on above: Performed By: #### C BC, TIBC, RADHA, [id number], FE, CMP #### [address] Creatinine [Mass/volume] in Serum or PlasmaOrdered By: Meagan Roman on 08-15-2023 Creatinine [Mass/Vol] 1.28 mg/dL High 0.60-1.20 [facility] Comment on above: Performed By: #### C BC, TIBC, RADHA, [id number], FE, CMP #### [facility] [address] Erythrocyte distribution wid th [Ratio] by Automated countOrdered By: Meagan Roman on 08-15-2023 Erythrocyte distribution width (RBC) [Ratio] 14.8 % Normal 11.9-15.3 [facility] Comment on above: Performed By: #### C BC, TIBC, RADHA, [id number], FE, CMP #### [address] Erythrocytes [#/volume] in B lood by Automated countOrdered By: Meagan Roman on 08-15-2023 RBC (Bld) [#/Vol] 2.97 10*6/uL Low 3.60-5.00 [facility] Comment on above: Performed By: #### C BC, TIBC, RADHA, [id number], FE, CMP #### [address] Glucose [Mass/volume] in Ser um or PlasmaOrdered By: Meagan Roman on 08-15-2023 Glucose [Mass/Vol] 98 mg/dL Normal 70-100 [facility] Comment on above: ADA recommended refe rence rangeRandom Glucose Reference Range is dependent on time and content of last meal. Glucose of more than 200 mg/dL in a nonstressed, ambulatory subject supports the diagnosis of Diabetes Mellitus. Result Comment: [place] om Glucose Reference Range is dependent on time and content of last meal. Glucose of more than 200 mg/dL in a nonstressed, ambulatory subject supports the diagnosis of Diabetes Mellitus. ADA recommended reference range Performed By: #### C BC, TIBC, RADHA, [id number], FE, CMP #### [place] [address] [place] Hematocrit [Volume Fraction] of Blood by Automated countOrdered By: Meagan Roman on 08-15-2023 Hematocrit (Bld) [Volume fraction] 27.3 % Low 34.0-46.4 [facility] Comment on above: Result Comment: PERF ORMED BY: [place] [address] PATHOLOGIST ORGANIC SEARCH LEAD LATONIA BRAND M.D. Performed By: #### H H #### [address] Hemoglobin [Mass/volume] in BloodOrdered By: Meagan Roman on 08-15-2023 Hemoglobin (Bld) [Mass/Vol] 9.1 g/dL Low 11.8-15.4 [facility] Comment on above: Performed By: #### H H #### [address] Aroldo 08-15-2023 L Specimen: [id number] Received: 08/15/23 Status: EMILY Pittman Num: [id number] Spec Type: Surgical Subm Dr: Kuldeep Almazan MD Tissues: A GASTRIC FOR HP (GASTRIC HP) Procedures: HE/2, Gross/Micro L4, H PYLORI, IHC First AB Age/ Patient Sex Location Account Attending Physician Malgorzata Reyes 77/F 3T [id number] Meagan Roman MD SPEC NUM: [id number] RECD: 08/15/23 STATUS: EMILY PITTMAN NUM: [id number] ALEXUS: 08/15/23- SUBM DR: Kuldeep Almazan MD ENTERED: 08/15/[address] [facility] DR: SPEC TYPE: Surgical DEPT: S ORDERED: [...] cm, entirely submitted in A1. CPT Codes 48812 49434 -- -- Specimen: [id number] Received: 08/15/23 Status: EMILY Pittman Num: [id number] Spec Type: Surgical Subm Dr: Kuldeep Almazan MD Tissues: A GASTRIC FOR HP (GASTRIC HP) Procedures: HE/2, Gross/Micro L4, H PYLORI, IHC First AB -- Patient: Malgorzata Reyes [id number] (Continued) -- Signed (signatu re on file) Riya Blanco MD 08/16/23 1618 Normal [facility] Leukocytes [#/volume] correc azul for nucleated erythrocytes in Blood by Automated counOrdered By: Meagan Roman on 08-15-2023 WBC corrected for nucl RBC Auto (Bld) [#/Vol] 4.9 10*3/uL 3.8-11.6 [facility] Leukocytes [#/volume] in Blo od by Automated countOrdered By: Meagan Roman on 08-15-2023 WBC (Bld) [#/Vol] 4.9 10*3/uL Normal 3.8-11.6 [facility] Comment on above: Performed By: #### C BC, TIBC, RADHA, [id number], FE, CMP #### [facility] [address] [place] [address] [place] Lymphocytes [#/volume] in Bl ood by Automated countOrdered By: Meagan Roman on 08-15-2023 Lymphocytes (Bld) [#/Vol] 1.3 10*3/uL Normal 1.00-4.8 [facility] Comment on above: Performed By: #### C BC, TIBC, RADHA, [id number], FE, CMP #### [facility] [address] [place] [address] [place] Lymphocytes/100 leukocytes i n Blood by Automated countOrdered By: Meagan Roman on 08-15-2023 Lymphocytes/100 WBC (Bld) 26.9 % Normal . [facility] Comment on above: Performed By: #### C BC, TIBC, RADHA, [id number], FE, CMP #### [facility] [address] [place] [address] [place] MCH [Entitic mass] by Automa azul countOrdered By: Meagan Roman on 08-15-2023 MCH (RBC) [Entitic mass] 29.5 pg Normal 24.7-34.3 [facility] Comment on above: Performed By: #### C BC, TIBC, RADHA, [id number], FE, CMP #### [facility] [address] MCHC Auto (RBC) [Mass/Vol]Or dered By: Meagan Roman on 08-15-2023 MCHC (RBC) [Mass/Vol] 33.6 g/dL 32.0-35.0 [facility] MCV [Entitic volume] by Auto mated countOrdered By: Meagan Roman on 08-15-2023 MCV (RBC) [Entitic vol] 87.6 fL Normal 80-100 [facility] Comment on above: Performed By: #### C BC, TIBC, RADHA, [id number], FE, CMP #### [facility] [address] Neutrophils [#/volume] in Bl ood by Automated countOrdered By: Meagan Roman on 08-15-2023 Neutrophils (Bld) [#/Vol] 2.8 10*3/uL Normal 1.8-7.7 [facility] Comment on above: Performed By: #### C BC, TIBC, RADHA, [id number], FE, CMP #### [facility] [address] No Panel InformationOrdered By: Meagan Roman on 08-15-2023 Estimated GFR (CKD-EPI) 43.688 mL/Min [facility] Creatinine Clearance (Chem 37.31 [facility] Nucleated erythrocytes [Pres ence] in Blood by Automated countOrdered By: Meagan Roman on 08-15-2023 Nucleated RBC Auto Ql (Bld) 0.1 /100{WBC} 0-0.5 [facility] Platelet mean volume [Entiti c volume] in Blood by Automated countOrdered By: Meagan Roman on 08-15-2023 Platelet mean volume (Bld) [Entitic vol] 8.3 fL Normal 6.3-10.7 [facility] Comment on above: Performed By: #### C BC, TIBC, RADHA, [id number], FE, CMP #### [facility] [address] [place] [address] [place] Platelets [#/volume] in Bloo d by Automated countOrdered By: Meagan Roman on 08-15-2023 Platelets (Bld) [#/Vol] 273 10*3/uL Normal 150-450 [facility] Comment on above: Performed By: #### C BC, TIBC, RADHA, [id number], FE, CMP #### [facility] [address] [place] [address] [place] Potassium [Moles/volume] in Serum or PlasmaOrdered By: Meagan Roman on 08-15-2023 Potassium [Moles/Vol] 5.0 mmol/L Normal 3.5-5.1 [facility] Comment on above: Performed By: #### C BC, TIBC, RADHA, [id number], FE, CMP #### [facility] [address] [place], [place] [address] Serum or plasma anion gap de terminationOrdered By: Meagan Roman on 08-15-2023 Anion gap [Moles/Vol] 12.5 mmol/L Normal 6.0-15.0 [facility] Comment on above: Performed By: #### C BC, TIBC, RADHA, [id number], FE, CMP #### [facility] [address] [place] [address] [place] Sodium [Moles/volume] in Ser um or PlasmaOrdered By: Meagan Roman on 08-15-2023 Sodium [Moles/Vol] 139 mmol/L Significant change down 136-145 [facility] Comment on above: Delta: 131 on -1754 Performed By: #### C BC, TIBC, RADHA, [id number], FE, CMP #### [facility] [address] [place] [address] [place] Urea nitrogen [Mass/volume] in Serum or PlasmaOrdered By: Meagan Roman on 08-15-2023 Urea nitrogen [Mass/Vol] 27 mg/dL High 7-25 [facility] Comment on above: Performed By: #### C BC, TIBC, RADHA, [id number], FE, CMP #### [facility] [address] [place] [address] ABO/Rh Retypeon 08-14-2023 ABO/RH Recheck Result Negative Normal [facility] Comment on above: Result Comment: PERF ORMED BY: [place] [address] PATHOLOGIST ORGANIC SEARCH LEAD LATONIA BRAND M.D. Alanine aminotransferase [En zymatic activity/volume] in Serum or PlasmaOrdered By: Liliana Kaba on 08-14-2023 ALT [Catalytic activity/Vol] 6 U/L Low 7-52 [facility] Comment on above: Performed By: #### C BC, TIBC, RADHA, [id number], FE, CMP #### [facility] [address] [place] [address] Albumin [Mass/volume] in Ser um or Plasma by Bromocresol green (BCG) dye binding methoOrdered By: Liliana Kaba on 08-14-2023 Albumin BCG dye [Mass/Vol] 4.5 g/dL 3.5-5.7 [facility] Alkaline phosphatase [Enzyma tic activity/volume] in Serum or PlasmaOrdered By: Liliana Kaba on 08-14-2023 ALP [Catalytic activity/Vol] 55 U/L Normal 34-104 [facility] Comment on above: Performed By: #### C BC, TIBC, RADHA, [id number], FE, CMP #### [facility] [address] [place] [address] Aspartate aminotransferase [ Enzymatic activity/volume] in Serum or PlasmaOrdered By: Liliana Kaba on 08-14-2023 AST [Catalytic activity/Vol] 12 U/L Low 13-39 [facility] Comment on above: Performed By: #### C BC, TIBC, RADHA, [id number], FE, CMP #### [facility] [address] [place] [address] Automated basophil %Ordered By: PROVIDER TEMP on 08-14-2023 Basophils/100 WBC (Bld) 0.7 % Normal . [facility] Comment on above: Performed By: #### C BC, TIBC, RADHA, [id number], FE, CMP #### [address] Automated basophil countOrde red By: PROVIDER TEMP on 08-14-2023 Basophils (Bld) [#/Vol] 0.1 10*3/uL Normal 0.0-0.2 [facility] Comment on above: Result Comment: PERF ORMED BY: [place] [address] PATHOLOGIST ORGANIC SEARCH LEAD LATONIA BRAND M.D. Performed By: #### C BC, TIBC, RADHA, [id number], FE, CMP #### [address] Automated blood monocyte cou ntOrdered By: PROVIDER TEMP on 08-14-2023 Monocytes (Bld) [#/Vol] 0.5 10*3/uL Normal 0.0-0.8 [facility] Comment on above: Performed By: #### C BC, TIBC, RADHA, [id number], FE, CMP #### [address] Automated eosinophil %Ordere d By: PROVIDER TEMP on 08-14-2023 Eosinophils/100 WBC (Bld) 3.3 % Normal . [facility] Comment on above: Performed By: #### C BC, TIBC, RADHA, [id number], FE, CMP #### [address] Automated eosinophil countOr dered By: PROVIDER TEMP on 08-14-2023 Eosinophils (Bld) [#/Vol] 0.3 10*3/uL Normal 0.0-0.45 [facility] Comment on above: Performed By: #### C BC, TIBC, RADHA, [id number], FE, CMP #### [address] Automated monocyte %Ordered By: PROVIDER TEMP on 08-14-2023 Monocytes/100 WBC (Bld) 6.8 % Normal . [facility] Comment on above: Performed By: #### C BC, TIBC, RADHA, [id number], FE, CMP #### [facility] [address] Automated neutrophil %Ordere d By: PROVIDER TEMP on 08-14-2023 Neutrophils/100 WBC (Bld) 70.0 % Normal . [facility] Comment on above: Performed By: #### C BC, TIBC, RADHA, [id number], FE, CMP #### [facility] [address] Bilirubin.total [Mass/volume ] in Serum or PlasmaOrdered By: Liliana Kaba on 08-14-2023 Bilirubin [Mass/Vol] 0.3 mg/dL Normal 0.3-1.0 [facility] Comment on above: Performed By: #### C BC, TIBC, RADHA, [id number], FE, CMP #### [facility] [address] Calcium [Mass/volume] in Ser um or PlasmaOrdered By: PROVIDER TEMP on 08-14-2023 Calcium [Mass/Vol] 8.7 mg/dL Normal 8.6-10.3 [facility] Comment on above: Performed By: #### C BC, TIBC, RADHA, [id number], FE, CMP #### [facility] [address] Carbon dioxide, total [Moles /volume] in Serum or PlasmaOrdered By: PROVIDER TEMP on 08-14-2023 CO2 [Moles/Vol] 23.7 mmol/L Normal 21.0-31.0 [facility] Comment on above: Performed By: #### C BC, TIBC, RADHA, [id number], FE, CMP #### [facility] [address] [place] [address] [place] Chloride [Moles/volume] in S matthew or PlasmaOrdered By: PROVIDER TEMP on 08-14-2023 Chloride [Moles/Vol] 100 mmol/L Normal 98-107 [facility] Comment on above: Performed By: #### C BC, TIBC, RADHA, [id number], FE, CMP #### [address] Complete Blood Count Auto Di ffon 08-14-2023 Mean Corpuscular HGB Conc 33.6 g/dL Normal 32.0-35.0 [facility] Comment on above: Performed By: #### C BC, TIBC, RADHA, [id number], FE, CMP #### [address] Monocytes/100 WBC (Bld) 15.64 % Normal 0.00-20.00 [facility] Comment on above: Performed By: #### C BC, TIBC, RADHA, [id number], FE, CMP #### [address] NRBC% 0.1 /100{WBC} Normal 0-0.5 [facility] Comment on above: Performed By: #### C BC, TIBC, RADHA, [id number], FE, CMP #### [address] Comprehensive Metabolic Pane aroldo 08-14-2023 Albumin [Mass/Vol] 4.5 g/dL Normal 3.5-5.7 [facility] Comment on above: Performed By: #### C BC, TIBC, RADHA, [id number], FE, CMP #### [address] Creatinine Clr Calc Pharmacy 33.40 Normal [facility] Comment on above: Result Comment: PERF ORMED BY: [place] [address] PATHOLOGIST ORGANIC SEARCH LEAD LATONIA BRAND M.D. Performed By: #### C BC, TIBC, RADHA, [id number], FE, CMP #### [address] GFR/1.73 sq M.predicted MDRD (S/P/Bld) [Vol rate/Area] 38.248 mL/min/{1.73_m2} Normal [facility] Comment on above: Performed By: #### C BC, TIBC, RADHA, [id number], FE, CMP #### [facility] [address] [place] [address] Creatinine [Mass/volume] in Serum or PlasmaOrdered By: PROVIDER TEMP on 08-14-2023 Creatinine [Mass/Vol] 1.43 mg/dL High 0.60-1.20 [facility] Comment on above: Performed By: #### C BC, TIBC, RADHA, [id number], FE, CMP #### [facility] [address] ECG 12 lead ECGon 08-14-2023 ECG 12 lead ECG [facility] [place] [address] [place] [address] Electrocardiograph Report Signed Patient: Malgorzata Reyes MR#: [id number] : 1945 Acct:[id number] Age/Sex: 77 / F ADM Date: 08/14/23 Loc: Room: [address] [place] [address] Type: ADM INOo Attending Dr: Meagan Roman [...] ECGs available Confirmed by LILIANA KABA DO ([id number]) on 08/15/2023 1:51:01 AM Referred By: Electronically Signed By:LILIANA KABA DO Transcribed By: MUS Signed By Liliana Kaba DO 08/14 0151 Normal [facility] Erythrocyte distribution wid th Auto (RBC) [Ratio]on 08-14-2023 Erythrocyte distribution width (RBC) [Ratio] 14.0 % 11.0-15.0 [facility] Erythrocyte distribution wid th [Ratio] by Automated countOrdered By: PROVIDER TEMP on 08-14-2023 Erythrocyte distribution width (RBC) [Ratio] 14.6 % Normal 11.9-15.3 [facility] Comment on above: Performed By: #### C BC, TIBC, RADHA, [id number], FE, CMP #### [facility] [address] Erythrocytes [#/volume] in B lood by Automated countOrdered By: PROVIDER TEMP on 08-14-2023 RBC (Bld) [#/Vol] 2.57 10*6/uL Low 3.60-5.00 [facility] Comment on above: Performed By: #### C BC, TIBC, RADHA, [id number], FE, CMP #### [facility] [address] Estimated glomerular filtrat ion rate (GFR) non- Americanon 08-14-2023 GFR/1.73 sq M.predicted among non-blacks MDRD (S/P/Bld) [Vol rate/Area] 35 mL/min/{1.73_m2} Low >=60 [facility] Fecal occult blood detection by immunochemistryOrdered By: Liliana Kaba on 08-14-2023 Hemoglobin.gastrointestin al Ql (Stl) [facility] Ferritin [Mass/volume] in Se rum or PlasmaOrdered By: Liliana Kaba on 08-14-2023 Ferritin [Mass/Vol] 116.6 ng/mL Normal 11.0-306.8 [facility] Comment on above: Performed By: #### C BC, TIBC, RADHA, [id number], FE, CMP #### [facility] [address] Folate [Mass/volume] in Seru m or PlasmaOrdered By: Liliana Kaba on 08-14-2023 Folate [Mass/Vol] 27.0 ng/mL >5.9 [facility] Comment on above: Folate reference ran ge: >5.9 ng/mlThe WHO technical consultation on folate and vitamin [id number] has determined that folate concentrations lessthan 4 ng/ml are considered deficient. Glucose [Mass/volume] in Ser um or PlasmaOrdered By: PROVIDER TEMP on 08-14-2023 Glucose [Mass/Vol] 94 mg/dL Normal 70-100 [facility] Comment on above: ADA recommended refe rence rangeRandom Glucose Reference Range is dependent on time and content of last meal. Glucose of more than 200 mg/dL in a nonstressed, ambulatory subject supports the diagnosis of Diabetes Mellitus. Result Comment: [place] om Glucose Reference Range is dependent on time and content of last meal. Glucose of more than 200 mg/dL in a nonstressed, ambulatory subject supports the diagnosis of Diabetes Mellitus. ADA recommended reference range Performed By: #### C BC, TIBC, RADHA, [id number], FE, CMP #### [facility] [address] Hematocrit Auto (Bld) [Volum e fraction]on 08-14-2023 Hematocrit (Bld) [Volume fraction] 23.4 % Low 36.0-48.0 [facility] Comment on above: RESULTS CALLED TO [facility] Hematocrit [Volume Fraction] of Blood by Automated countOrdered By: PROVIDER TEMP on 08-14-2023 Hematocrit (Bld) [Volume fraction] 22.9 % Low 34.0-46.4 [facility] Comment on above: Performed By: #### C BC, TIBC, RADHA, [id number], FE, CMP #### [facility] [address] Hemoglobin [Mass/volume] in BloodOrdered By: PROVIDER TEMP on 08-14-2023 Hemoglobin (Bld) [Mass/Vol] 7.7 g/dL Low 11.8-15.4 [facility] Comment on above: Performed By: #### C BC, TIBC, RADHA, [id number], FE, CMP #### [facility] [address] [place] [address] [place] Hemoglobin [Mass/volume] in Bloodon 08-14-2023 Hemoglobin (Bld) [Mass/Vol] 7.2 g/dL Low 12.0-16.0 [facility] Iron [Mass/volume] in Serum or PlasmaOrdered By: Liliana Kaba on 08-14-2023 Iron [Mass/Vol] 29 ug/dL Low 50-212 [facility] Comment on above: Performed By: #### C BC, TIBC, RADHA, [id number], FE, CMP #### [facility] [address] Iron binding capacity [Mass/ volume] in Serum or PlasmaOrdered By: Liliana Kaba on 08-14-2023 Iron binding capacity [Mass/Vol] 272 ug/dL 255-450 [facility] Iron binding capacity [Mass/ volume] in Serum or Plasmaon 08-14-2023 Iron binding capacity [Mass/Vol] 241.0 ug/dL Low 250.0-450.0 [facility] Iron saturation [Mass Fracti on] in Serum or Plasmaon 08-14-2023 Iron saturation [Mass fraction] 13.3 % [facility] Laboratory - Chemistry and C hemistry - challengeon 08-14-2023 Albumin [Mass/Vol] 3.6 g/dL 3.4-5.0 [facility] Calcium [Mass/Vol] 8.4 mg/dL Low 8.5-10.1 [facility] Chloride [Moles/Vol] 101 mmol/L 98-107 [facility] CO2 [Moles/Vol] 23.8 mmol/L 21.0-32.0 [facility] Creatinine [Mass/Vol] 1.47 mg/dL High 0.55-1.02 [facility] Ferritin [Mass/Vol] 154.0 ng/mL 8.0-252.0 [facility] GFR/1.73 sq M.predicted MDRD (S/P/Bld) [Vol rate/Area] 42 mL/min/{1.73_m2} Low >=60 [facility] Glucose [Mass/Vol] 98 mg/dL 74-106 [facility] Iron [Mass/Vol] 32.0 ug/dL Low 50.0-170.0 [facility] Potassium [Moles/Vol] 5.3 mmol/L High 3.5-5.1 [facility] Sodium [Moles/Vol] 134 mmol/L Low 136-145 [facility] Urea nitrogen [Mass/Vol] 30.0 mg/dL High 7.0-18.0 [facility] Urea nitrogen/Creatinine [Mass ratio] 20.4 mg/mg [facility] LeukoReduced RBCon LeukoReduced RBC TRANSFUSED 08/14/23 2303 Normal [facility] Leukocytes [#/volume] correc azul for nucleated erythrocytes in Blood by Automated counOrdered By: PROVIDER TEMP on 08-14-2023 WBC corrected for nucl RBC Auto (Bld) [#/Vol] 7.7 10*3/uL 3.8-11.6 [facility] Leukocytes [#/volume] correc azul for nucleated erythrocytes in Blood by Automated counon 08-14-2023 WBC corrected for nucl RBC Auto (Bld) [#/Vol] 6.0 10 3/uL 4.0-11.0 [facility] Leukocytes [#/volume] in Blo od by Automated countOrdered By: PROVIDER TEMP on 08-14-2023 WBC (Bld) [#/Vol] 7.7 10*3/uL Normal 3.8-11.6 [facility] Comment on above: Performed By: #### C BC, TIBC, RADHA, [id number], FE, CMP #### [facility] [address] [place] [address] [place] Lymphocytes [#/volume] in Bl ood by Automated countOrdered By: PROVIDER TEMP on 08-14-2023 Lymphocytes (Bld) [#/Vol] 1.5 10*3/uL Normal 1.00-4.8 [facility] Comment on above: Performed By: #### C BC, TIBC, RADHA, [id number], FE, CMP #### [facility] [address] [place] [address] [place] Lymphocytes/100 leukocytes i n Blood by Automated countOrdered By: PROVIDER TEMP on 08-14-2023 Lymphocytes/100 WBC (Bld) 19.2 % Normal . [facility] Comment on above: Performed By: #### C BC, TIBC, RADHA, [id number], FE, CMP #### [facility] [address] [place] [id number] [facility] MCH Auto (RBC) [Entitic mass ]on 08-14-2023 MCH (RBC) [Entitic mass] 28.9 pg 26.7-34.0 [facility] MCH [Entitic mass] by Automa azul countOrdered By: PROVIDER TEMP on 08-14-2023 MCH (RBC) [Entitic mass] 29.9 pg Normal 24.7-34.3 [facility] Comment on above: Performed By: #### C BC, TIBC, RADHA, [id number], FE, CMP #### [facility] [address] MCHC Auto (RBC) [Mass/Vol]Or dered By: PROVIDER TEMP on 08-14-2023 MCHC (RBC) [Mass/Vol] 33.6 g/dL 32.0-35.0 [facility] MCHC Auto (RBC) [Mass/Vol]on 08-14-2023 MCHC (RBC) [Mass/Vol] 30.8 g/dL 29.9-35.2 [facility] MCV Auto (RBC) [Entitic vol] on 08-14-2023 MCV (RBC) [Entitic vol] 94.0 fL 81.0-99.0 [facility] MCV [Entitic volume] by Auto mated countOrdered By: PROVIDER TEMP on 08-14-2023 MCV (RBC) [Entitic vol] 89.1 fL Normal 80-100 [facility] Comment on above: Performed By: #### C BC, TIBC, RADHA, [id number], FE, CMP #### [facility] [address] Monocyte distribution width [Entitic volume] in Blood by AutomatedOrdered By: PROVIDER TEMP on 08-14-2023 Monocyte distribution width Auto (Bld) [Entitic vol] 15.64 % 0.00-20.00 [facility] Neutrophils [#/volume] in Bl ood by Automated countOrdered By: PROVIDER TEMP on 08-14-2023 Neutrophils (Bld) [#/Vol] 5.4 10*3/uL Normal 1.8-7.7 [facility] Comment on above: Performed By: #### C BC, TIBC, RADHA, [id number], FE, CMP #### [facility] [address] No Panel InformationOrdered By: PROVIDER TEMP on 08-14-2023 Estimated GFR (CKD-EPI) 38.248 mL/Min [facility] Creatinine Clearance (Chem 33.40 [facility] No Panel Informationon 08-13 Phosphorus Level 4.3 mg/dL 2.6-4.7 [facility] Nucleated erythrocytes [Pres ence] in Blood by Automated countOrdered By: PROVIDER TEMP on 08-14-2023 Nucleated RBC Auto Ql (Bld) 0.1 /100{WBC} 0-0.5 [facility] Platelet mean volume Auto (B ld) [Entitic vol]on 08-14-2023 Platelet mean volume (Bld) [Entitic vol] 10.0 fL 9.5-13.5 [facility] Platelet mean volume [Entiti c volume] in Blood by Automated countOrdered By: PROVIDER TEMP on 08-14-2023 Platelet mean volume (Bld) [Entitic vol] 8.3 fL Normal 6.3-10.7 [facility] Comment on above: Performed By: #### C BC, TIBC, RADHA, [id number], FE, CMP #### [facility] [address] [place] [address] Platelets Auto (Bld) [#/Vol] on 08-14-2023 Platelets (Bld) [#/Vol] 290 10 3/uL 150-450 [facility] Platelets [#/volume] in Bloo d by Automated countOrdered By: PROVIDER TEMP on 08-14-2023 Platelets (Bld) [#/Vol] 291 10*3/uL Normal 150-450 [facility] Comment on above: Performed By: #### C BC, TIBC, RADHA, [id number], FE, CMP #### [facility] [address] [place] [address] Potassium [Moles/volume] in Serum or PlasmaOrdered By: PROVIDER TEMP on 08-14-2023 Potassium [Moles/Vol] 5.1 mmol/L Normal 3.5-5.1 [facility] Comment on above: Performed By: #### C BC, TIBC, RADHA, [id number], FE, CMP #### [facility] [address] [place] [address] Protein [Mass/volume] in Ser um or PlasmaOrdered By: Liliana Kaba on 08-14-2023 Protein [Mass/Vol] 7.2 g/dL Normal 6.4-8.9 [facility] Comment on above: Performed By: #### C BC, TIBC, RADHA, [id number], FE, CMP #### [address] RBC Auto (Bld) [#/Vol]on RBC (Bld) [#/Vol] 2.49 10 6/uL Low 4.20-5.40 [facility] Serum globulin measurement b y calculation (mass/volume)Ordered By: Liliana Kaba on 08-14-2023 Globulin (S) [Mass/Vol] 2.7 g/dL Normal [facility] Comment on above: Performed By: #### C BC, TIBC, RADHA, [id number], FE, CMP #### [facility] [address] [place] [address] Serum or plasma albumin/glob ulin mass ratioOrdered By: Liliana Kaba on 08-14-2023 Albumin/Globulin [Mass ratio] 1.7 {ratio} Normal [facility] Comment on above: Performed By: #### C BC, TIBC, RADHA, [id number], FE, CMP #### [facility] [address] [place] [address] Serum or plasma anion gap de terminationOrdered By: PROVIDER TEMP on 08-14-2023 Anion gap [Moles/Vol] 12.4 mmol/L Normal 6.0-15.0 [facility] Comment on above: Performed By: #### C BC, TIBC, RADHA, [id number], FE, CMP #### [address] Serum or plasma anion gap de terminationon 08-14-2023 Anion gap [Moles/Vol] 14.5 mmol/L [facility] Sodium [Moles/volume] in Ser um or PlasmaOrdered By: PROVIDER TEMP on 08-14-2023 Sodium [Moles/Vol] 131 mmol/L Low 136-145 [facility] Comment on above: Performed By: #### C BC, TIBC, RADHA, [id number], FE, CMP #### [address] Stool Occult Blood (Guaiac)o n 08-14-2023 Stool Occult Blood (Guaiac) Occult Blood Positive for Occult Blood by Guaiac Methodology Reference range = Negative PERFORMED BY: [place] [address] PATHOLOGIST ORGANIC SEARCH LEAD LATONIA BRAND M.D. Normal [facility] Comment on above: Performed By: #### O B(GUAIAC) #### [address] Total Iron Binding Capacityo n 08-14-2023 Total Iron Binding Capacity 272 ug/dL Normal 255-450 [facility] Comment on above: Performed By: #### C BC, TIBC, RADHA, [id number], FE, CMP #### [address] Transferrin [Mass/volume] in Serum or PlasmaOrdered By: Liliana Kaba on 08-14-2023 Transferrin [Mass/Vol] 194 mg/dL Low 203-362 [facility] Comment on above: Performed By: #### C BC, TIBC, RADHA, [id number], FE, CMP #### [place] [address] [place] Type and Screenon 08-14-2023 ABO and Rh group Nom (Bld) Blood group A Rh(D) negative Normal [facility] Comment on above: Order Comment: Trans fuse now? Y Number of units to transfuse now? 1 Result Comment: PERF ORMED BY: [place] [address] PATHOLOGIST ORGANIC SEARCH LEAD LATONIA BRAND M.D. Urea nitrogen [Mass/volume] in Serum or PlasmaOrdered By: PROVIDER TEMP on 08-14-2023 Urea nitrogen [Mass/Vol] 31 mg/dL High 7-25 [facility] Comment on above: Performed By: #### C BC, TIBC, RADHA, [id number], FE, CMP #### [address] Vit. B12/Folate Profileon Folate 27.0 ng/mL Normal >5.9 [facility] Comment on above: Result Comment: Audra te reference range: >5.9 ng/ml The WHO technical consultation on folate and vitamin b12 deficiencies has determined that folate concentrations less than 4 ng/ml are considered deficient. PERFORMED BY: [place] [address] PATHOLOGIST ORGANIC SEARCH LEAD LATONIA BRAND M.D. Performed By: #### C BC, TIBC, RADHA, [id number], FE, CMP #### [facility] [address] [place] [address] Vitamin B12 ser/plasOrdered By: Liliana Kaba on 08-14-2023 Cobalamin (Vitamin B12) [Mass/Vol] 457 pg/mL Normal 180-914 [facility] Comment on above: Performed By: #### C BC, TIBC, RADHA, [id number], FE, CMP #### [facility] [address] [place] [address] BASIC METABOLIC PANLon 07-19 Anion gap [Moles/Vol] 10 mmol/L Normal 5-15 [facility] Comment on above: Performed By: #### C BCA, BMP, LIVR, 08938-6, 3016-3, 60800-4 #### [facility] ([id number]) [address], [address] [place] [address] Calcium [Mass/Vol] 9.3 mg/dL Normal 8.5-10.5 [facility] Comment on above: Performed By: #### C BCA, BMP, LIVR, 35011-1, 3016-3, 99768-8 #### [facility] ([id number]) [address], [address] [place] [address] Chloride [Moles/Vol] 107 mmol/L Normal 98-109 [facility] Comment on above: Performed By: #### C BCA, BMP, LIVR, 63279-7, 3016-3, 84987-8 #### [facility] ([id number]) [address], [address] [place] [address] CO2 [Moles/Vol] 22 mmol/L Normal 22-32 [facility] Comment on above: Performed By: #### C BCA, BMP, LIVR, 67663-1, 3016-3, 26247-5 #### [facility] ([id number]) [address], [address] [place] [address] Creatinine [Mass/Vol] 1.38 mg/dL High 0.40-1.00 [facility] Comment on above: Result Comment: METH OD TRACEABLE TO IDMS STANDARD Performed By: #### C BCA, BMP, LIVR, 45901-9, 3016-3, 22236-4 #### [facility] ([id number]) [address], [address] [place] [address] GFR/1.73 sq M.predicted among non-blacks MDRD (S/P/Bld) [Vol rate/Area] 40 mL/min/{1.73_m2} Low >59 [facility] Comment on above: Result Comment: Reported eGFR is based on the CKD-EPI 2020 equation that does not use a race coefficient. Performed By: #### C BCA, BMP, LIVR, 34011-0, 3016-3, 28557-5 #### [facility] ([id number]) [address], [address] [place] [address] Glucose [Mass/Vol] 144 mg/dL High 65-99 [facility] Comment on above: Performed By: #### C BCA, BMP, LIVR, 71182-0, 3016-3, 06316-6 #### [facility] ([id number]) [address], [facility] [address] [place] [address] Potassium [Moles/Vol] 5.3 mmol/L High 3.5-5.0 [facility] Comment on above: Performed By: #### C BCA, BMP, LIVR, 50245-4, 3016-3, 17756-0 #### [facility] ([id number]) [address], [address] [place] [address] Sodium [Moles/Vol] 139 mmol/L Normal 134-146 [facility] Comment on above: Performed By: #### C BCA, BMP, LIVR, 78580-1, 3016-3, 25466-3 #### [facility] ([id number]) [address] [address] [place] [address] Urea nitrogen [Mass/Vol] 22 mg/dL Normal 5-27 [facility] Comment on above: Performed By: #### C BCA, BMP, LIVR, 28194-1, 3016-3, 45371-6 #### [facility] ([id number]) [address], [address] [place] [address] BASIC METABOLIC PANLon 07-18 Anion gap [Moles/Vol] 10 mmol/L Normal 5-15 [facility] Comment on above: Performed By: #### C BCA, BMP, LIVR, 69084-4, 3016-3, 52995-1 #### [facility] ([id number]) [address], [address] [place] [address] Calcium [Mass/Vol] 9.0 mg/dL Normal 8.5-10.5 [facility] Comment on above: Performed By: #### C BCA, BMP, LIVR, 45079-4, 3016-3, 10052-1 #### [facility] ([id number]) [address], [address] [place] [address] Chloride [Moles/Vol] 108 mmol/L Normal 98-109 [facility] Comment on above: Performed By: #### C BCA, BMP, LIVR, 44405-8, 3016-3, 98240-8 #### [facility] ([id number]) [address], [address] [place] [address] CO2 [Moles/Vol] 23 mmol/L Normal 22-32 [facility] Comment on above: Performed By: #### C BCA, BMP, LIVR, 54366-6, 3016-3, 14511-8 #### [facility] ([id number]) [address] [address] [place] [address] Creatinine [Mass/Vol] 1.60 mg/dL High 0.40-1.00 [facility] Comment on above: Result Comment: METH OD TRACEABLE TO IDMS STANDARD Performed By: #### C BCA, BMP, LIVR, 96528-3, 3016-3, 82975-1 #### [facility] ([id number]) [address] [address] [place] [address] GFR/1.73 sq M.predicted among non-blacks MDRD (S/P/Bld) [Vol rate/Area] 33 mL/min/{1.73_m2} Low >59 [facility] Comment on above: Result Comment: Reported eGFR is based on the CKD-EPI 2020 equation that does not use a race coefficient. Performed By: #### C BCA, BMP, LIVR, 53456-4, 3016-3, 60803-4 #### [facility] ([id number]) [address], [address] [place] [address] Glucose [Mass/Vol] 135 mg/dL High 65-99 [facility] Comment on above: Performed By: #### C BCA, BMP, LIVR, 52224-9, 3016-3, 67352-4 #### [facility] ([id number]) [address], [address] [place] [address] Potassium [Moles/Vol] 4.8 mmol/L Normal 3.5-5.0 [facility] Comment on above: Performed By: #### C BCA, BMP, LIVR, 33357-8, 3016-3, 54473-5 #### [facility] ([id number]) [address], [address] [place] [address] Sodium [Moles/Vol] 141 mmol/L Normal 134-146 [facility] Comment on above: Performed By: #### C BCA, BMP, LIVR, 03624-5, 3016-3, 28378-8 #### [facility] ([id number]) [address], [address] [place] [address] Urea nitrogen [Mass/Vol] 27 mg/dL Normal 5-27 [facility] Comment on above: Performed By: #### C BCA, BMP, LIVR, 16453-7, 3016-3, 80987-0 #### [facility] ([id number]) [address], [address] [place] [address] MAGNESIUMon 07-19-2023 Magnesium [Mass/Vol] 2.1 mg/dL Normal 1.8-2.6 [facility] Comment on above: Performed By: #### C BCA, BMP, LIVR, 20782-1, 3016-3, 42707-5 #### [facility] ([id number]) [address], [address] [place] [address] Natriuretic peptide B [Mass/ Vol]on 07-19-2023 Natriuretic peptide B (Bld) [Mass/Vol] 156 pg/mL High <100.0 [facility] Comment on above: Performed By: #### C BCA, BMP, LIVR, 14254-4, 3016-3, 68439-9 #### [facility] ([id number]) [address], [address] [place] [address] POTASSIUMon 07-19-2023 Potassium [Moles/Vol] 4.7 mmol/L Normal 3.5-5.0 [facility] Comment on above: Performed By: #### C BCA, BMP, LIVR, 88813-3, 3016-3, 68425-1 #### [facility] ([id number]) [address], [facility] [address] [place] [address] Troponin I.cardiac High sens itivity method [Mass/Vol]on 07-19-2023 1 HOUR TROP I, HIGH SENSITIVITY 4 ng/L Normal <16 [facility] Comment on above: Performed By: #### C BCA, BMP, LIVR, 71199-6, 3016-3, 61037-9 #### [facility] ([id number]) [address], [facility] [address] [place] [address] TROPONIN I, HIGH SENSITIVITY 4 ng/L Normal <16 [facility] Comment on above: Performed By: #### C BCA, BMP, LIVR, 95582-3, 3016-3, 70685-0 #### [facility] ([id number]) [address] [address] [place] [address] XR KNEE RT 1 OR 2 VWSon [...] Ngo MD on 07/19/2023 12:38 PM Normal [facility] Erythrocyte distribution wid th Auto (RBC) [Ratio]on 07-06-2023 Erythrocyte distribution width (RBC) [Ratio] 13.2 % 11.0-15.0 [facility] Estimated glomerular filtrat ion rate (GFR) non- Americanon 07-06-2023 GFR/1.73 sq M.predicted among non-blacks MDRD (S/P/Bld) [Vol rate/Area] 34 mL/min/{1.73_m2} Low >=60 [facility] Hematocrit Auto (Bld) [Volum e fraction]on 07-06-2023 Hematocrit (Bld) [Volume fraction] 30.0 % Low 36.0-48.0 [facility] Hemoglobin [Mass/volume] in Bloodon 07-06-2023 Hemoglobin (Bld) [Mass/Vol] 9.5 g/dL Low 12.0-16.0 [facility] Iron binding capacity [Mass/ volume] in Serum or Plasmaon 07-06-2023 Iron binding capacity [Mass/Vol] 250.0 ug/dL 250.0-450.0 [facility] Iron saturation [Mass Fracti on] in Serum or Plasmaon 07-06-2023 Iron saturation [Mass fraction] 26.8 % [facility] Laboratory - Chemistry and C hemistry - challengeon 07-06-2023 Albumin [Mass/Vol] 4.3 g/dL 3.4-5.0 [facility] Calcium [Mass/Vol] 9.5 mg/dL 8.5-10.1 [facility] Chloride [Moles/Vol] 105 mmol/L 98-107 [facility] CO2 [Moles/Vol] 25.2 mmol/L 21.0-32.0 [facility] Creatinine [Mass/Vol] 1.49 mg/dL High 0.55-1.02 [facility] Ferritin [Mass/Vol] 172.0 ng/mL 8.0-252.0 [facility] GFR/1.73 sq M.predicted MDRD (S/P/Bld) [Vol rate/Area] 41 mL/min/{1.73_m2} Low >=60 [facility] Glucose [Mass/Vol] 107 mg/dL High 74-106 [facility] Iron [Mass/Vol] 67.0 ug/dL 50.0-170.0 [facility] Magnesium [Mass/Vol] 2.1 mg/dL 1.8-2.4 [facility] Potassium [Moles/Vol] 5.6 mmol/L High 3.5-5.1 [facility] Sodium [Moles/Vol] 139 mmol/L 136-145 [facility] Urate [Mass/Vol] 6.9 mg/dL High 2.6-6.0 [facility] Urea nitrogen [Mass/Vol] 25.0 mg/dL High 7.0-18.0 [facility] Urea nitrogen/Creatinine [Mass ratio] 16.8 mg/mg [facility] Laboratory - Urinalysison Protein (U) [Mass/Vol] 6.8 mg/dL <=11.9 [facility] Leukocytes [#/volume] correc azul for nucleated erythrocytes in Blood by Automated counon 07-06-2023 WBC corrected for nucl RBC Auto (Bld) [#/Vol] 6.4 10 3/uL 4.0-11.0 [facility] MCH Auto (RBC) [Entitic mass ]on 07-06-2023 MCH (RBC) [Entitic mass] 30.3 pg 26.7-34.0 [facility] MCHC Auto (RBC) [Mass/Vol]on 07-06-2023 MCHC (RBC) [Mass/Vol] 31.7 g/dL 29.9-35.2 [facility] MCV Auto (RBC) [Entitic vol] on 07-06-2023 MCV (RBC) [Entitic vol] 95.5 fL 81.0-99.0 [facility] No Panel Informationon 07-05 25-Hydroxy Vitamin D Total 57.7 ng/mL [facility] Comment on above: <20 ng/mL Vit D defi cient20-<30 ng/mL Vit D [id number] ng/mL Vit D sufficient>100 ng/mL Potential Toxicity Parathyroid Hormone (Intact) 81 pg/mL Abnormal [facility] Comment on above: Performed at: - L [address] [id number] Director: Tavon Arevalo PhD, Phone: [phone] Phosphorus Level 4.0 mg/dL 2.6-4.7 [facility] Urine Random Creatinine 65.39 mg/dL 20.00-300.0 0 [facility] Platelet mean volume Auto (B ld) [Entitic vol]on 07-06-2023 Platelet mean volume (Bld) [Entitic vol] 10.3 fL 9.5-13.5 [facility] Platelets Auto (Bld) [#/Vol] on 07-06-2023 Platelets (Bld) [#/Vol] 241 10 3/uL 150-450 [facility] RBC Auto (Bld) [#/Vol]on RBC (Bld) [#/Vol] 3.14 10 6/uL Low 4.20-5.40 [facility] Serum or plasma anion gap de terminationon 07-06-2023 Anion gap [Moles/Vol] 14.4 mmol/L [facility] Urine protein/creatinine rat ioon 07-06-2023 Protein/Creatinine (U) [Ratio] 0.10 [facility] BASIC METABOLIC PANLon 06-21 Anion gap [Moles/Vol] 11 mmol/L Normal -[address] [facility] Comment on above: Performed By: #### C BCA, BMP, LIVR, 73909-2, 3016-3, 58083-2 #### [facility] ([id number]) [address] [facility] [place] [address] Calcium [Mass/Vol] 9.5 mg/dL Normal 8.5-10.5 [facility] Comment on above: Performed By: #### C BCA, BMP, LIVR, 29891-6, 3016-3, 46486-6 #### [facility] ([id number]) [address], [address] [place] [address] Chloride [Moles/Vol] 106 mmol/L Normal 98-109 [facility] Comment on above: Performed By: #### C BCA, BMP, LIVR, 67061-1, 3016-3, 51497-8 #### [facility] ([id number]) [address], [address] [place] [address] CO2 [Moles/Vol] 24 mmol/L Normal 22-32 [facility] Comment on above: Performed By: #### C BCA, BMP, LIVR, 94154-4, 3016-3, 87186-3 #### [facility] ([id number]) [address], [address] [place] [address] Creatinine [Mass/Vol] 1.48 mg/dL High 0.40-1.00 [facility] Comment on above: Result Comment: METH OD TRACEABLE TO IDMS STANDARD Performed By: #### C BCA, BMP, LIVR, 33697-5, 3016-3, 52733-3 #### [facility] ([id number]) [address], [address] [place] [address] GFR/1.73 sq M.predicted among non-blacks MDRD (S/P/Bld) [Vol rate/Area] 37 mL/min/{1.73_m2} Low >59 [facility] Comment on above: Result Comment: Reported eGFR is based on the CKD-EPI 1 equation that does not use a race coefficient. Performed By: #### C BCA, BMP, LIVR, 96022-5, 3016-3, 88128-7 #### [facility] ([id number]) [address], [address] [place] [address] Glucose [Mass/Vol] 99 mg/dL Normal 65-99 [facility] Comment on above: Performed By: #### C BCA, BMP, LIVR, 74685-7, 3016-3, 31166-5 #### [facility] ([id number]) [address], [address] [place] [address] Potassium [Moles/Vol] 5.5 mmol/L High 3.5-5.0 [facility] Comment on above: Performed By: #### C BCA, BMP, LIVR, 12706-0, 3016-3, 22775-5 #### [facility] ([id number]) [address], [address] [place] [address] Sodium [Moles/Vol] 141 mmol/L Normal 134-146 [facility] Comment on above: Performed By: #### C BCA, BMP, LIVR, 46296-7, 3016-3, 71373-1 #### [facility] ([id number]) [address] [address] [place] [address] Urea nitrogen [Mass/Vol] 25 mg/dL Normal 5-27 [facility] Comment on above: Performed By: #### C BCA, BMP, LIVR, 61691-3, 3016-3, 57482-5 #### [facility] ([id number]) [address] [address] [place] [address] CBC AND AUTO DIFFon 04-18-20 24 ABSOLUTE BASOPHIL 0.0 X10E9/L Normal 0.0-0.2 [facility] Comment on above: Performed By: #### C BCA, BMP, PINR #### [facility] ([id number]) [address] [address] [place] [address] ABSOLUTE NEUTROPHIL 4.4 X10E9/L Normal 1.5-6.6 [facility] Comment on above: Performed By: #### C BCA, BMP, PINR #### [facility] ([id number]) [address] [address] [place] [address] Basophils/100 WBC (Bld) 0.4 % Normal [facility] Comment on above: Performed By: #### C RADHA, BMP, PINR #### [facility] ([id number]) [address] [place] [address] Eosinophils (Bld) [#/Vol] 0.1 10*3/uL Normal 0.0-0.4 [facility] Comment on above: Performed By: #### C RADHA, BMP, PINR #### [facility] ([id number]) [address] [place] [address] Eosinophils/100 WBC (Bld) 1.3 % Normal [facility] Comment on above: Performed By: #### C TERI GARCIA, PINR #### [facility] ([id number]) [address], [facility] [address] [place] [address] Erythrocyte distribution width (RBC) [Ratio] 14.0 % Normal 11.5-15.0 [facility] Comment on above: Performed By: #### C TERI GARCIA, PINR #### [facility] ([id number]) [address], [address] [place] [address] Hematocrit (Bld) [Volume fraction] 28.8 % Low 35-47 [facility] Comment on above: Performed By: #### C TERI GARCIA, PINR #### [facility] ([id number]) [address] [place] [address] Hemoglobin (Bld) [Mass/Vol] 9.9 g/dL Low 11.7-15.5 [facility] Comment on above: Performed By: #### C RADHA BMP, PINR #### [facility] ([id number]) [address], [facility] [address] [place] [address] Lymphocytes (Bld) [#/Vol] 0.9 10*3/uL Low 1.0-3.5 [facility] Comment on above: Performed By: #### C TERI GARCIA, PINR #### [facility] ([id number]) [address] [place] [address] Lymphocytes/100 WBC (Bld) 16.5 % Normal [facility] Comment on above: Performed By: #### C BCA, BMP, PINR #### [facility] ([id number]) [address], [address] [place] [address] MCH (RBC) [Entitic mass] 31.3 pg Normal 27-34 [facility] Comment on above: Performed By: #### C RADHA, BMP, PINR #### [facility] ([id number]) [address], [address] [place] [address] MCHC (RBC) [Mass/Vol] 34.4 g/dL Normal 32-36 [facility] Comment on above: Performed By: #### C BCA, BMP, PINR #### [facility] ([id number]) [address] [place] [address] MCV (RBC) [Entitic vol] 91 fL Normal 80-100 [facility] Comment on above: Performed By: #### C BCA, BMP, PINR #### [facility] ([id number]) [address], [address] [place] [address] Monocytes (Bld) [#/Vol] 0.3 10*3/uL Normal 0-0.9 [facility] Comment on above: Performed By: #### C BCA, BMP, PINR #### [facility] ([id number]) [address], [address] [place] [address] Monocytes/100 WBC (Bld) 4.7 % Normal [facility] Comment on above: Performed By: #### C BCA, BMP, PINR #### [facility] ([id number]) [address] [place] [address] Neutrophils/100 WBC (Bld) 77.1 % Normal [facility] Comment on above: Performed By: #### C RADHA BMP, PINR #### [facility] ([id number]) [address] [address] [place] [address] Platelet mean volume (Bld) [Entitic vol] 9.4 fL Normal 7-12 [facility] Comment on above: Performed By: #### C RADHA, BMP, PINR #### [facility] ([id number]) [address] [address] [place] [address] Platelets (Bld) [#/Vol] 219 10*3/uL Normal 150-450 [facility] Comment on above: Performed By: #### C RADHA, BMP, PINR #### [facility] ([id number]) [address] [address] [place] [address] RBC COUNT 3.17 X10E12/L Low 3.80-5.20 [facility] Comment on above: Performed By: #### C RADHA, BMP, PINR #### [facility] ([id number]) [address] [address] [place] [address] WBC (Bld) [#/Vol] 5.7 10*3/uL Normal 4.0-11.0 [facility] Comment on above: Performed By: #### C RADHA, BMP, PINR #### [facility] ([id number]) [address] [address] [place] [address] HGB A1C (GLYCO-HGB)on 2023 Glucose [Mass/Vol] 117 mg/dL Normal [facility] Comment on above: Performed By: #### C RADHA, BMP, LIVR, 33843-9, 3016-3, 44471-1 #### [facility] ([id number]) [address] [address] [place] [address] HbA1c (Bld) [Mass fraction] 5.7 % High 4.4-5.6 [facility] Comment on above: Result Comment: NOTE ADA Guidelines Result HgbA1c Normal : less than 5.7 % Prediabetes : 5.7 % to 6.4 % Diabetes : > 6.4 % Use with caution in patients with abnormal hemoglobin variants as the half-life of red blood cells and in vivo glycation rates are affected. Performed By: #### C BCA, BMP, LIVR, 68489-8, 3016-3, 32301-6 #### [facility] ([id number]) [address] [facility] [address] [place] [address] PROTIME AND INRon 06-22-2023 INR Coag (PPP) [Relative time] 1.0 {INR} Normal 0.8-1.1 [facility] Comment on above: Performed By: #### C BCA, BMP, LIVR, 88199-4, 3016-3, 41911-6 #### [facility] ([id number]) [address] [place] [address] PT Coag (PPP) [Time] 11.1 s Normal 9.8-13.2 [facility] Comment on above: Performed By: #### C BCA, BMP, LIVR, 78477-3, 3016-3, 76217-5 #### [facility] ([id number]) [address] [place] [address] BASIC METABOLIC PANLon 04-19 Anion gap [Moles/Vol] 9 mmol/L Normal 5-15 [facility] Comment on above: Performed By: #### C BCA, BMP, LIVR, 27280-1, 3016-3, 74541-4 #### [facility] ([id number]) [address] [address] [place] [address] Calcium [Mass/Vol] 9.5 mg/dL Normal 8.5-10.5 [facility] Comment on above: Performed By: #### C BCA, BMP, LIVR, 26315-4, 3016-3, 85434-0 #### [facility] ([id number]) [address] [place] [address] Chloride [Moles/Vol] 105 mmol/L Normal 98-109 [facility] Comment on above: Performed By: #### C BCA, BMP, LIVR, 47891-2, 3016-3, 76809-3 #### [facility] ([id number]) [address] [place] [address] CO2 [Moles/Vol] 26 mmol/L Normal 22-32 [facility] Comment on above: Performed By: #### C BCA, BMP, LIVR, 57402-8, 3016-3, 06973-1 #### [facility] ([id number]) [address] [place] [address] Creatinine [Mass/Vol] 1.43 mg/dL High 0.40-1.00 [facility] Comment on above: Result Comment: METH OD TRACEABLE TO IDMS STANDARD Performed By: #### C BCA, BMP, LIVR, 98209-8, 3016-3, 21201-7 #### [facility] ([id number]) [address] [place] [address] GFR/1.73 sq M.predicted among non-blacks MDRD (S/P/Bld) [Vol rate/Area] 38 mL/min/{1.73_m2} Low >59 [facility] Comment on above: Result Comment: Reported eGFR is based on the CKD-EPI 2020 equation that does not use a race coefficient. Performed By: #### C BCA, BMP, LIVR, 84329-0, 3016-3, 68660-9 #### [facility] ([id number]) [address] [place] [address] Glucose [Mass/Vol] 97 mg/dL Normal 65-99 [facility] Comment on above: Performed By: #### C BCA, BMP, LIVR, 05314-2, 3016-3, 01646-4 #### [facility] ([id number]) [address] [facility] [address] [place] [address] Potassium [Moles/Vol] 5.2 mmol/L High 3.5-5.0 [facility] Comment on above: Performed By: #### C BCA, BMP, LIVR, 04055-3, 3016-3, 16986-0 #### [facility] ([id number]) [address] [facility] [address] [place] [address] Sodium [Moles/Vol] 140 mmol/L Normal 134-146 [facility] Comment on above: Performed By: #### C BCA, BMP, LIVR, 14684-7, 3016-3, 71191-8 #### [facility] ([id number]) [address] [facility] [address] [place] [address] Urea nitrogen [Mass/Vol] 28 mg/dL High 5-27 [facility] Comment on above: Performed By: #### C BCA, BMP, LIVR, 04316-1, 3016-3, 21038-9 #### [facility] ([id number]) [address] [place] [address] Basic metabolic 1998 panelon 04-19-2023 Anion gap [Moles/Vol] 9 mmol/L 5 - 15 mmol/L [facility] Calcium [Mass/Vol] 9.5 mg/dL 8.5 - 10. 5 mg/dL [facility] Chloride [Moles/Vol] 105 mmol/L 98 - 10 9 mmol/L [facility] CO2 [Moles/Vol] 26 mmol/L 22 - 32 mmol/L [facility] Creatine [Mass/Vol] 1.43 mg/dL High 0.40 - 1 .00 mg/dL [facility] Comment on above: METHOD TRACEABLE TO IDMS STANDARD GFR/1.73 sq M.predicted among non-blacks MDRD (S/P/Bld) [Vol rate/Area] 38 mL/min/{1.73_m2} Low - PINF [facility] Comment on above: Reported eGFR is based on the CKD-EPI 2020 equation that does not use a race coefficient. PERFORMED AT [facility] [address],[place] [address] Glucose [Mass/Vol] 97 mg/dL 65 - 99 mg/dL [facility] Potassium [Moles/Vol] 5.2 mmol/L High 3.5 - 5.0 mmol/L [facility] Sodium [Moles/Vol] 140 mmol/L 134 - 146 mmol/L [facility] Urea nitrogen [Mass/Vol] 28 mg/dL High 5 - 27 mg/d L [facility] CBC AND AUTO DIFFon 04-19-19 24 ABSOLUTE BASOPHIL 0.0 X10E9/L Normal 0.0-0.2 [facility] Comment on above: Performed By: #### C BCA, BMP, LIVR, 57757-8, 3016-3, 79611-4 #### [facility] ([id number]) [address], [address] [place] [address] ABSOLUTE NEUTROPHIL 3.4 X10E9/L Normal 1.5-6.6 [facility] Comment on above: Performed By: #### C BCA, BMP, LIVR, 59326-2, 3016-3, 15380-0 #### [facility] ([id number]) [address], [address] [place] [address] Basophils/100 WBC (Bld) 0.5 % Normal [facility] Comment on above: Performed By: #### C BCA, BMP, LIVR, 74890-3, 3016-3, 53707-1 #### [facility] ([id number]) [address], [address] [place] [address] Eosinophils (Bld) [#/Vol] 0.2 10*3/uL Normal 0.0-0.4 [facility] Comment on above: Performed By: #### C BCA, BMP, LIVR, 20141-6, 3016-3, 81119-5 #### [facility] ([id number]) [address] [place] [address] Eosinophils/100 WBC (Bld) 3.8 % Normal [facility] Comment on above: Performed By: #### C BCA, BMP, LIVR, 26820-7, 3016-3, 70421-7 #### [facility] ([id number]) [address] [place] [address] Erythrocyte distribution width (RBC) [Ratio] 15.4 % High 11.5-15.0 [facility] Comment on above: Performed By: #### C BCA, BMP, LIVR, 93767-3, 6-3, 99397-9 #### [facility] ([id number]) [address] [place] [address] Hematocrit (Bld) [Volume fraction] 32.5 % Low 35-47 [facility] Comment on above: Performed By: #### C BCA, BMP, LIVR, 31737-9, 3015-3, 64643-2 #### [facility] ([id number]) [address] [place] [address] Hemoglobin (Bld) [Mass/Vol] 10.8 g/dL Low 11.7-15.5 [facility] Comment on above: Performed By: #### C BCA, BMP, LIVR, 52565-4, 3016-3, 42403-2 #### [facility] ([id number]) [address] [place] [address] Lymphocytes (Bld) [#/Vol] 1.6 10*3/uL Normal 1.0-3.5 [facility] Comment on above: Performed By: #### C BCA, BMP, LIVR, 93714-9, 3016-3, 50244-7 #### [facility] ([id number]) [address] [place] [address] Lymphocytes/100 WBC (Bld) 29.5 % Normal [facility] Comment on above: Performed By: #### C BCA, BMP, LIVR, 48346-0, 3016-3, 48679-0 #### [facility] ([id number]) [address] [place] [address] MCH (RBC) [Entitic mass] 29.7 pg Normal 27-34 [facility] Comment on above: Performed By: #### C BCA, BMP, LIVR, 39965-2, 3015-3, 56301-3 #### [facility] ([id number]) [address] [place] [address] MCHC (RBC) [Mass/Vol] 33.3 g/dL Normal 32-36 [facility] Comment on above: Performed By: #### C BCA, BMP, LIVR, 39593-3, 3015-3, 54742-1 #### [facility] ([id number]) [address], [address] [place] [address] MCV (RBC) [Entitic vol] 89 fL Normal 80-100 [facility] Comment on above: Performed By: #### C BCA, BMP, LIVR, 25330-7, 3015-3, 05903-1 #### [facility] ([id number]) [address] [place] [address] Monocytes (Bld) [#/Vol] 0.3 10*3/uL Normal 0-0.9 [facility] Comment on above: Performed By: #### C BCA, BMP, LIVR, 35463-5, 3016-3, 86281-9 #### [facility] ([id number]) [address] [place] [address] Monocytes/100 WBC (Bld) 5.0 % Normal [facility] Comment on above: Performed By: #### C BCA, BMP, LIVR, 41609-5, 3016-3, 74522-9 #### [facility] ([id number]) [address] [place] [address] Neutrophils/100 WBC (Bld) 61.2 % Normal [facility] Comment on above: Performed By: #### C BCA, BMP, LIVR, 09806-6, 3016-3, 32453-7 #### [facility] ([id number]) [address] [place] [address] Platelet mean volume (Bld) [Entitic vol] 9.3 fL Normal 7-12 [facility] Comment on above: Performed By: #### C BCA, BMP, LIVR, 66984-1, 3016-3, 10185-6 #### [facility] ([id number]) [address] [place] [address] Platelets (Bld) [#/Vol] 215 10*3/uL Normal 150-450 [facility] Comment on above: Performed By: #### C BCA, BMP, LIVR, 08331-9, 3016-3, 31382-4 #### [facility] ([id number]) [address] [place] [address] RBC COUNT 3.64 X10E12/L Low 3.80-5.20 [facility] Comment on above: Performed By: #### C BCA, BMP, LIVR, 12005-1, 3016-3, 65391-2 #### [facility] ([id number]) [address] [place] [address] WBC (Bld) [#/Vol] 5.6 10*3/uL Normal 4.0-11.0 [facility] Comment on above: Performed By: #### C BCA, BMP, LIVR, 62359-5, 3016-3, 95975-2 #### [facility] ([id number]) [address] [place] [address] CBC W Auto Differential pane l (Bld)on 04-19-2023 ABSOLUTE BASOPHIL 0.0 [facility] Comment on above: PERFORMED AT [facility] [address],[place] [address] Basophils/100 WBC (Bld) 0.5 % [facility] Eosinophils (Bld) [#/Vol] 0.2 10*3/uL [facility] Eosinophils/100 WBC (Bld) 3.8 % [facility] Erythrocyte distribution width (RBC) [Ratio] 15.4 % High 11.5 - 15.0 % [facility] Hematocrit (Bld) [Volume fraction] 32.5 % Low 35 - 47 % [facility] Hemoglobin (Bld) [Mass/Vol] 10.8 g/dL Low 11.7 - 15.5 g/dL [facility] Lymphocytes (Bld) [#/Vol] 1.6 10*3/uL [facility] Lymphocytes/100 WBC (Bld) 29.5 % [facility] MCH (RBC) [Entitic mass] 29.7 pg 27 - 34 pg [facility] MCHC (RBC) [Mass/Vol] 33.3 g/dL 32 - 36 g/dL [facility] MCV (RBC) [Entitic vol] 89 fL 80 - 100 fL [facility] Monocytes (Bld) [#/Vol] 0.3 10*3/uL [facility] Monocytes/100 WBC (Bld) 5.0 % [facility] Neutrophils (Bld) [#/Vol] 3.4 10*3/uL [facility] Neutrophils/100 WBC (Bld) 61.2 % [facility] Platelet mean volume (Bld) [Entitic vol] 9.3 fL 7 - 12 fL [facility] Platelets (Bld) [#/Vol] 215 10*3/uL [facility] RBC (Bld) [#/Vol] 3.64 10*6/uL Low [facility] WBC corrected for nucl RBC Auto (Bld) [#/Vol] 5.6 [facility] HGB A1C (GLYCO-HGB)on 2023 Glucose [Mass/Vol] 128 mg/dL Normal [facility] Comment on above: Performed By: #### C BCA, BMP, LIVR, 00327-5, 3016-3, 00866-1 #### [facility] ([id number]) [address] [place] [address] HbA1c (Bld) [Mass fraction] 6.1 % High 4.4-5.6 [facility] Comment on above: Result Comment: NOTE ADA Guidelines Result HgbA1c Normal : less than 5.7 % Prediabetes : 5.7 % to 6.4 % Diabetes : > 6.4 % Use with caution in patients with abnormal hemoglobin variants as the half-life of red blood cells and in vivo glycation rates are affected. Performed By: #### C BCA, BMP, LIVR, 04891-8, 6-3, 22798-8 #### [facility] ([id number]) [address] [place] [address] LIVER PANELon 04-19-2023 Albumin [Mass/Vol] 4.6 g/dL Normal 3.2-5.3 [facility] Comment on above: Performed By: #### C BCA, BMP, LIVR, 97801-9, 6-3, 90404-5 #### [facility] ([id number]) [address] [place] [address] ALP [Catalytic activity/Vol] 43 U/L Normal 39-130 [facility] Comment on above: Performed By: #### C BCA, BMP, LIVR, 28301-5, 3016-3, 02456-0 #### [facility] ([id number]) [address] [place] [address] ALT [Catalytic activity/Vol] 13 U/L Normal 0-31 [facility] Comment on above: Performed By: #### C BCA, BMP, LIVR, 15741-4, 3016-3, 22224-5 #### [facility] ([id number]) [address] [place] [address] AST [Catalytic activity/Vol] 17 U/L Normal 0-41 [facility] Comment on above: Performed By: #### C BCA, BMP, LIVR, 32975-9, 3016-3, 16544-8 #### [facility] ([id number]) [address] [place] [address] Bilirubin [Mass/Vol] 0.5 mg/dL Normal 0.3-1.2 [facility] Comment on above: Performed By: #### C BCA, BMP, LIVR, 83173-6, 3016-3, 88329-8 #### [facility] ([id number]) [address] [place] [address] Bilirubin.direct [Mass/Vol] 0.1 mg/dL Normal 0.0-0.4 [facility] Comment on above: Performed By: #### C BCA, BMP, LIVR, 12994-4, 3016-3, 82708-1 #### [facility] ([id number]) [address] [place] [address] Protein [Mass/Vol] 7.0 g/dL Normal 6.0-8.0 [facility] Comment on above: Performed By: #### C BCA, BMP, LIVR, 58315-4, 3016-3, 47805-4 #### [facility] ([id number]) [address] [place] [address] Lipid 1996 panelon 4 Cholesterol [Mass/Vol] 177 mg/dL Normal 150-200 [facility] Comment on above: Performed By: #### C BCA, BMP, LIVR, 64231-5, 3016-3, 22523-6 #### [facility] ([id number]) [address] [place] [address] Cholesterol in HDL [Mass/Vol] 48 mg/dL Normal >39 [facility] Comment on above: Result Comment: HDL <40 mg/dL - High Risk HDL > or = 40mg/dL- Desirable HDL >60 mg/dL - Negative Risk Performed By: #### C BCA, BMP, LIVR, 03452-6, 6-3, 26754-1 #### [facility] ([id number]) [address] [place] [address] Cholesterol in LDL [Mass/Vol] 81 mg/dL Normal <130 [facility] Comment on above: Result Comment: LDL <100 mg/dL - Desirable LDL >160 mg/dL - High Risk Performed By: #### C BCA, BMP, LIVR, 17729-9, 3015-3, 77494-7 #### [facility] ([id number]) [address] [place] [address] Cholesterol in VLDL [Mass/Vol] 48 mg/dL High 0-30 [facility] Comment on above: Performed By: #### C BCA, BMP, LIVR, 14695-3, 6-3, 74325-7 #### [facility] ([id number]) [address] [place] [address] CHOLESTEROL:HDL 3.7 Normal 1.0-5.0 [facility] Comment on above: Performed By: #### C BCA, BMP, LIVR, 86984-5, 6-3, 47789-8 #### [facility] ([id number]) [address] [place] [address] Triglyceride [Mass/Vol] 239 mg/dL High 27-150 [facility] Comment on above: Performed By: #### C BCA, BMP, LIVR, 16026-0, 3016-3, 25707-1 #### [facility] ([id number]) [address] [place] [address] MICROALBUMIN - ALBUMIN:CREAT ININE URINE RATIOon 04-19-2023 ALB/CREAT RATIO 26.4 mg/g creat Normal 0.0-30.0 [facility] Comment on above: Performed By: #### M ALBU #### [facility] ([id number]) [address] [place] [address] Albumin DL <= 20 mg/L (U) [Mass/Vol] 2.0 mg/dL High 0.0-1.9 [facility] Comment on above: Performed By: #### M ALBU #### [facility] ([id number]) [address] [place] [address] URINE CREAT 75.68 mg/dL Normal [facility] Comment on above: Performed By: #### M ALBU #### [facility] ([id number]) [address] [place] [address] No Panel Informationon 04-19 Interpretation and review of laboratory results Abnormal [facility] TSH Qnon 04-19-2023 TSH 1.47 uIU/mL Normal 0.49-4.67 [facility] Comment on above: Performed By: #### C BCA, BMP, LIVR, 24264-2, 3016-3, 92848-6 #### [facility] ([id number]) [address] [place] [address] Vitamin D+Metabolites [Mass/ Vol]on 04-19-2023 VITAMIN D 25 HYD TOT 51.9 ng/mL Normal 30-100 [facility] Comment on above: Result Comment: Vitamin D status 25 [place] Vitamin D Deficiency <20 ng/mL Insufficiency 20-29 ng/mL Sufficiency 30-100 ng/mL Toxicity >100 ng/mL NOTE: A pediatric reference range has not been established by the triage technician of this kit. The [place] [employer] recommends a Vitamin D level of = or >20ng/mL in infants and children. Performed By: #### C BCA, BMP, LIVR, 94313-5, 3016-3, 65077-7 #### [facility] ([id number]) [address] [place] [address] MR KNEE RIGHT WO IV CONTRAST on [...] R T knee to be done at [facility] in [place], pt is scheduled 04/12/23 at 10:30 for the mri, thank you Surgical Pathologyon 024 Surgical Pathology Normal [facility] Comment on above: Result Comment: [facility] [address] [place] [address] Surgical Pathology Consultation Patient Name:MALGORZATA REYES:1945 (Age: 77)Gender:FTaken:03/08/2023eported:03/10/2023hysician(s):Michaela Emerson MD ([phone])Copy To: Rec. #:[id number]: #[id number] Final Pathologic Diagnosis 1. Duodenal polyps, biopsy: [...] No dysplasia identified. Report Electronically Signed Out [facility]/03/10/2023Florian Card M.D. Interpretation performed at [facility], [address] [place] [address], License number: [id number]. Clinical History Iron deficient/anemia. Gross Description 1. Received in formalin labeled, SEAMON, duodenum are 3 palacio delicate to friable soft tissue bits, each 0.3 cm in greatest dimension. The specimens are filtered and submitted in a single cassette. (1, ns, [id number], m7) TB 2. Received in formalin labeled, SEAMON, antral are 2 palacio delicate soft tissue bits, 0.2 and 0.3 cm in greatest dimension. The specimens are filtered and submitted in a single cassette. (1, ns, [id number], m7) TB 3. Received in formalin labeled, SEAMON, fundus are 2 pale-palacio delicate soft tissue bits, 0.3 and 0.4 cm in greatest dimension. The specimens are filtered and submitted in a single cassette. (1, ns, [id number], m7) TB 4. Received in formalin labeled, SEAMON, 45 cm colon polyps is a pale-palacio feathery soft tissue bits, 0.4 cm in greatest dimension. The specimens are filtered and submitted in a single cassette. (1, ns, [id number], m7) TB tgb/03/08/2023GR Specimen(s) Received 1: Duodenum x2 polyps 2: Antrum biopsy 3: Fundic stomach 4: Colon polyp at 45cm Fee Codes(s): 1; 58921 2; 45302 3; 11295 4; 30354 GLYCOHEMOGLOBIN A1Con 2022 ADA RECOMMENDATION SEE BELOW Normal [facility] Comment on above: Result Comment: ADA RECOMMENDED LIMIT 4.0 - 6.0 ADA THERAPEUTIC TARGET < 7.0 ACTION SUGGESTED > 7.0 Performed By: #### B MP, LIPID, AST, TSH, ALT #### [facility] [address] [address] [address] Viri Strong Glucose [Mass/Vol] 126 mg/dL Normal [facility] Comment on above: Performed By: #### B MP, LIPID, AST, TSH, ALT #### [facility] [address] [address] [address] Viri Strong HbA1c (Bld) [Mass fraction] 6.0 % Normal 4.5-6.2 [facility] Comment on above: Performed By: #### B MP, LIPID, AST, TSH, ALT #### [facility] [address] [place] [address] Dr. Viri Strong RENAL FUNCTION PANELon 03-15 Albumin [Mass/Vol] 4.1 g/dL Normal 3.4-5.0 [facility] Comment on above: Performed By: #### B MP, LIPID, AST, TSH, ALT #### [facility] [address] [address] [address] Viri Strong Calcium [Mass/Vol] 9.1 mg/dL Normal 8.5-10.1 [facility] Comment on above: Performed By: #### B MP, LIPID, AST, TSH, ALT #### [facility] [address] [place] [address] Dr. Viri Strong Chloride [Moles/Vol] 107 mmol/L Normal 98-107 [facility] Comment on above: Performed By: #### B MP, LIPID, AST, TSH, ALT #### [facility] [address] [address] [address] Viri Strong CO2 [Moles/Vol] 24.6 mmol/L Normal 21.0-32.0 [facility] Comment on above: Performed By: #### B MP, LIPID, AST, TSH, ALT #### [facility] [address] [place] [address] Dr. Viri Strong Creatinine [Mass/Vol] 1.31 mg/dL Critically high 0.55-1.02 [facility] Comment on above: Performed By: #### B MP, LIPID, AST, TSH, ALT #### [facility] [address] [place] [address] Dr. Viri Strong EGFR-AF CYMRO 48 mL/min/1.73m2 Critically low >=60 [facility] Comment on above: Performed By: #### B MP, LIPID, AST, TSH, ALT #### [facility] [address] [address] [address] Viri Strong EGFR-NON AF CYMRO 40 mL/min/1.73m2 Critically low >=60 [facility] Comment on above: Performed By: #### B MP, LIPID, AST, TSH, ALT #### [facility] [address] [place] [address] Dr. Viri Strong Glucose [Mass/Vol] 99 mg/dL Normal 74-106 [facility] Comment on above: Performed By: #### B MP, LIPID, AST, TSH, ALT #### [facility] [address] [place] [address] Dr. Viri Strong Phosphate [Mass/Vol] 3.4 mg/dL Normal 2.6-4.7 [facility] Comment on above: Performed By: #### B MP, LIPID, AST, TSH, ALT #### [facility] [address] [place] [address] Dr. Viri Strong Potassium [Moles/Vol] 4.6 mmol/L Normal 3.5-5.1 [facility] Comment on above: Performed By: #### B MP, LIPID, AST, TSH, ALT #### [facility] [address] [place] [address] Dr. Viri Strong Sodium [Moles/Vol] 141 mmol/L Normal 136-145 [facility] Comment on above: Performed By: #### B MP, LIPID, AST, TSH, ALT #### [facility] [address] [place] [address] Dr. Viri Strong Urea nitrogen [Mass/Vol] 28.0 mg/dL Critically high 7.0-18 .0 [facility] Comment on above: Performed By: #### B MP, LIPID, AST, TSH, ALT #### [facility] [address] [place] [address] Dr. Viri Strong RENAL FUNCTION PANELon 01-31 Albumin [Mass/Vol] 4.1 g/dL Normal 3.4-5.0 [facility] Comment on above: Performed By: #### B MP, LIPID, AST, TSH, ALT #### [facility] [address] [place] [address] Dr. Viri Strong Calcium [Mass/Vol] 9.3 mg/dL Normal 8.5-10.1 [facility] Comment on above: Performed By: #### B MP, LIPID, AST, TSH, ALT #### [facility] [address] [place] [address] Dr. Viri Strong Chloride [Moles/Vol] 105 mmol/L Normal 98-107 [facility] Comment on above: Performed By: #### B MP, LIPID, AST, TSH, ALT #### [facility] [address] [place] [address] Dr. Viri Strong CO2 [Moles/Vol] 22.5 mmol/L Normal 21.0-32.0 [facility] Comment on above: Performed By: #### B MP, LIPID, AST, TSH, ALT #### [facility] [address] [address] [address] Viri Strong Creatinine [Mass/Vol] 1.31 mg/dL Critically high 0.55-1.02 [facility] Comment on above: Performed By: #### B MP, LIPID, AST, TSH, ALT #### [facility] [address] [place] [address] Dr. Viri Strong EGFR-AF CYMRO 48 mL/min/1.73m2 Critically low >=60 [facility] Comment on above: Performed By: #### B MP, LIPID, AST, TSH, ALT #### [facility] [address] [place] [address] Dr. Viri Strong EGFR-NON AF CYMRO 40 mL/min/1.73m2 Critically low >=60 [facility] Comment on above: Performed By: #### B MP, LIPID, AST, TSH, ALT #### [facility] [address] [place] [address] Dr. Viri Strong Glucose [Mass/Vol] 105 mg/dL Normal 74-106 [facility] Comment on above: Performed By: #### B MP, LIPID, AST, TSH, ALT #### [facility] [address] [place] [address] Dr. Viri Strong Phosphate [Mass/Vol] 3.2 mg/dL Normal 2.6-4.7 [facility] Comment on above: Performed By: #### B MP, LIPID, AST, TSH, ALT #### [facility] [address] [place] [address] Dr. Viri Strong Potassium [Moles/Vol] 5.0 mmol/L Normal 3.5-5.1 [facility] Comment on above: Performed By: #### B MP, LIPID, AST, TSH, ALT #### [facility] [address] [place] [address] Dr. Viri Strong Sodium [Moles/Vol] 138 mmol/L Normal 136-145 [facility] Comment on above: Performed By: #### B MP, LIPID, AST, TSH, ALT #### [facility] [address] [place] [address] Dr. Viri Strong Urea nitrogen [Mass/Vol] 24.0 mg/dL Critically high 7.0-18 .0 [facility] Comment on above: Performed By: #### B MP, LIPID, AST, TSH, ALT #### [facility] [address] [address] [address] Viri Strong MAGNESIUMon 01-19-2022 Magnesium [Mass/Vol] 2.1 mg/dL Normal 1.8-2.4 [facility] Comment on above: Performed By: #### B MP, LIPID, AST, TSH, ALT #### [facility] [address] [place] [address] Dr. Viri Strong RENAL FUNCTION PANELon 01-19 Albumin [Mass/Vol] 4.4 g/dL Normal 3.4-5.0 [facility] Comment on above: Performed By: #### B MP, LIPID, AST, TSH, ALT #### [facility] [address] [place] [address] Dr. Viri Strong Calcium [Mass/Vol] 9.7 mg/dL Normal 8.5-10.1 [facility] Comment on above: Performed By: #### B MP, LIPID, AST, TSH, ALT #### [facility] [address] [place] [address] Dr. Viri Strong Chloride [Moles/Vol] 101 mmol/L Normal 98-107 [facility] Comment on above: Performed By: #### B MP, LIPID, AST, TSH, ALT #### [facility] [address] [address] [address] Viri Strong CO2 [Moles/Vol] 26.8 mmol/L Normal 21.0-32.0 [facility] Comment on above: Performed By: #### B MP, LIPID, AST, TSH, ALT #### [facility] [address] [place] [address] Dr. Viri Strong Creatinine [Mass/Vol] 1.37 mg/dL Critically high 0.55-1.02 [facility] Comment on above: Performed By: #### B MP, LIPID, AST, TSH, ALT #### [facility] [address] [place] [address] Dr. Viri Strong EGFR-AF CYMRO 46 mL/min/1.73m2 Critically low >=60 [facility] Comment on above: Performed By: #### B MP, LIPID, AST, TSH, ALT #### [facility] [address] [place] [address] Dr. Viri Strong EGFR-NON AF CYMRO 38 mL/min/1.73m2 Critically low >=60 [facility] Comment on above: Performed By: #### B MP, LIPID, AST, TSH, ALT #### [facility] [address] [place] [address] Dr. Viri Strong Glucose [Mass/Vol] 88 mg/dL Normal 74-106 [facility] Comment on above: Performed By: #### B MP, LIPID, AST, TSH, ALT #### [facility] [address] [place] [address] Dr. Viri Strong Phosphate [Mass/Vol] 4.2 mg/dL Normal 2.6-4.7 [facility] Comment on above: Performed By: #### B MP, LIPID, AST, TSH, ALT #### [facility] [address] [place] [address] Dr. Viri Strong Potassium [Moles/Vol] 5.3 mmol/L Critically high 3.5-5.1 [facility] Comment on above: Performed By: #### B MP, LIPID, AST, TSH, ALT #### [facility] [address] [place] [address] Dr. Viri Strong Sodium [Moles/Vol] 135 mmol/L Critically low 136-145 [facility] Comment on above: Performed By: #### B MP, LIPID, AST, TSH, ALT #### [facility] [address] [place] [address] Dr. Viri Strong Urea nitrogen [Mass/Vol] 35.0 mg/dL Critically high 7.0-18 .0 [facility] Comment on above: Performed By: #### B MP, LIPID, AST, TSH, ALT #### [facility] [address] [address] [address] Viri Strong UA RANDOM W/MICROSCOPICon BACTERIA NONE SEEN Normal NONE SEEN [facility] Comment on above: Performed By: #### B MP, LIPID, AST, TSH, ALT #### [facility] [address] [address] [address] Viri Strong Bilirubin Ql (U) Negative Normal NEGATIVE [facility] Comment on above: Performed By: #### B MP, LIPID, AST, TSH, ALT #### [facility] [address] [place] [address] Dr. Viri Strong CAST NONE SEEN Normal NONE SEEN [facility] Comment on above: Performed By: #### B MP, LIPID, AST, TSH, ALT #### [facility] [address] [place] [address] Dr. Viri Strong Clarity (U) CLEAR Normal CLEAR [facility] Comment on above: Performed By: #### B MP, LIPID, AST, TSH, ALT #### [facility] [address] [place] [address] Dr. Viri Strong Color (U) LT. YELLOW Normal YELLOW [facility] Comment on above: Performed By: #### B MP, LIPID, AST, TSH, ALT #### [facility] [address] [place] [address] Dr. Viri Strong Crystals LM Nom (Urine sed) NONE SEEN Normal NONE SEEN [facility] Comment on above: Performed By: #### B MP, LIPID, AST, TSH, ALT #### [facility] [address] [place] [address] Dr. Viri Strong Epithelial cells LM Ql (Urine sed) RARE Normal NONE SEEN /RARE [facility] Comment on above: Performed By: #### B MP, LIPID, AST, TSH, ALT #### [facility] [address] [address] [address] Viri Strong Glucose Ql (U) Negative Normal NEGATIVE [facility] Comment on above: Performed By: #### B MP, LIPID, AST, TSH, ALT #### [facility] [address] [place] [address] Dr. Viri Strong Hemoglobin Ql (U) Negative Normal NEGATIVE [facility] Comment on above: Performed By: #### B MP, LIPID, AST, TSH, ALT #### [facility] [address] [place] [address] Dr. Viri Strong Ketones Ql (U) Negative Normal NEGATIVE [facility] Comment on above: Performed By: #### B MP, LIPID, AST, TSH, ALT #### [facility] [address] [place] [address] Dr. Viri Strong LEUKOCYTES TRACE Abnormal NEGATIVE [facility] Comment on above: Performed By: #### B MP, LIPID, AST, TSH, ALT #### [facility] [address] [place] [address] Dr. Viri Strong MUCOUS NONE SEEN Normal NONE SEEN [facility] Comment on above: Performed By: #### B MP, LIPID, AST, TSH, ALT #### [facility] [address] [place] [address] Dr. Viri Strong Nitrite Ql (U) Negative Normal NEGATIVE [facility] Comment on above: Performed By: #### B MP, LIPID, AST, TSH, ALT #### [facility] [address] [place] [address] Dr. Viri Strong pH (U) 5.0 [pH] Normal 5-9 [facility] Comment on above: Performed By: #### B MP, LIPID, AST, TSH, ALT #### [facility] [address] [place] [address] Dr. Viri Strong RBC 0-2 Normal 0-2 [facility] Comment on above: Performed By: #### B MP, LIPID, AST, TSH, ALT #### [facility] [address] [place] [address] Dr. Viri Strong SPEC GRAVITY 1.010 Normal 1.005-<=1.02 5 [facility] Comment on above: Performed By: #### B MP, LIPID, AST, TSH, ALT #### [facility] [address] [place] [address] Dr. Viri Strong UA PROTEIN Negative Normal NEGATIVE/ TRACE [facility] Comment on above: Performed By: #### B MP, LIPID, AST, TSH, ALT #### [facility] [address] [place] [address] Dr. Viri Strong Urobilinogen Qn (U) 0.2 {Alem'U}/dL Normal 0.2 - 1. 0 [facility] Comment on above: Performed By: #### B MP, LIPID, AST, TSH, ALT #### [facility] [address] [place] [address] Dr. Viri Strong WBC 2-5 Abnormal NONE SEEN [facility] Comment on above: Performed By: #### B MP, LIPID, AST, TSH, ALT #### [facility] [address] [place] [address] Dr. Viri Strong PTH INTACTon 01-04-2022 PTH, Intact 45 pg/mL Normal 15-65 [facility] Comment on above: Performed By: #### B MP, LIPID, AST, TSH, ALT #### [facility] [address] [place] [address] Dr. Viri Strong FERRITINon 01-03-2022 Ferritin [Mass/Vol] 51.0 ng/mL Normal 8.0-252.0 [facility] Comment on above: Performed By: #### B MP, LIPID, AST, TSH, ALT #### [facility] [address] [place] [address] Dr. Viri Strong HEMOGRAM AND PLATELon 2021 Hematocrit (Bld) [Volume fraction] 31.7 % Critically low 36.0-48.0 [facility] Comment on above: Performed By: #### B MP, LIPID, AST, TSH, ALT #### [facility] [address] [place] [address] Dr. Viri Strong Hemoglobin (Bld) [Mass/Vol] 10.2 g/dL Critically low 12.0-16.0 [facility] Comment on above: Performed By: #### B MP, LIPID, AST, TSH, ALT #### [facility] [address] [place] [address] Dr. Viri Strong MCH (RBC) [Entitic mass] 29.2 pg Normal 26.7-34.0 [facility] Comment on above: Performed By: #### B MP, LIPID, AST, TSH, ALT #### [facility] [address] [place] [address] Dr. Viri Strong MCHC (RBC) [Mass/Vol] 32.2 g/dL Normal 29.9-35.2 [facility] Comment on above: Performed By: #### B MP, LIPID, AST, TSH, ALT #### [facility] [address] [place] [address] Dr. Viri Strong MCV (RBC) [Entitic vol] 90.8 fL Normal 81.0-99.0 [facility] Comment on above: Performed By: #### B MP, LIPID, AST, TSH, ALT #### [facility] [address] [place] [address] Dr. Viri Strong PLT 231 103/ul Normal 150-450 [facility] Comment on above: Performed By: #### B MP, LIPID, AST, TSH, ALT #### [facility] [address] [place] [address] Dr. Viri Strong RBC 3.49 106/ul Critically low 4.20-5.40 [facility] Comment on above: Performed By: #### B MP, LIPID, AST, TSH, ALT #### [facility] [address] [place] [address] Dr. Viri Strong WBC 5.9 103/ul Normal 4.0-11.0 [facility] Comment on above: Performed By: #### B MP, LIPID, AST, TSH, ALT #### [facility] [address] [place] [address] Dr. Viri Strong IRON AND TIBCon 01-03-2022 % SATURATION 18.0 % Normal [facility] Comment on above: Performed By: #### B MP, LIPID, AST, TSH, ALT #### [facility] [address] [address] [address] Viri Strong Iron [Mass/Vol] 58.0 ug/dL Normal 50.0-170.0 [facility] Comment on above: Performed By: #### B MP, LIPID, AST, TSH, ALT #### [facility] [address] [address] [address] Viri Strong TIBC DIRECT 322.0 ug/dL Normal 250.0-450.0 [facility] Comment on above: Performed By: #### B MP, LIPID, AST, TSH, ALT #### [facility] [address] [place] [address] Dr. Viri Strong MAGNESIUMon 01-03-2022 Magnesium [Mass/Vol] 2.1 mg/dL Normal 1.8-2.4 [facility] Comment on above: Performed By: #### M G, URIC, RENAL #### [facility] [address] [place] [address] Dr. Viri Strong RENAL FUNCTION PANELon 01-03 Albumin [Mass/Vol] 4.3 g/dL Normal 3.4-5.0 [facility] Comment on above: Performed By: #### M G, URIC, RENAL #### [facility] [address] [place] [address] Dr. Viri Strong Calcium [Mass/Vol] 9.0 mg/dL Normal 8.5-10.1 [facility] Comment on above: Performed By: #### M G, URIC, RENAL #### [facility] [address] [place] [address] Dr. Viri Strong Chloride [Moles/Vol] 108 mmol/L Critically high 98-107 [facility] Comment on above: Performed By: #### M G, URIC, RENAL #### [facility] [address] [place] [address] Dr. Viri Strong CO2 [Moles/Vol] 23.4 mmol/L Normal 21.0-32.0 [facility] Comment on above: Performed By: #### M G, URIC, RENAL #### [facility] [address] [place] [address] Dr. Viri Strong Creatinine [Mass/Vol] 1.32 mg/dL Critically high 0.55-1.02 [facility] Comment on above: Performed By: #### M G, URIC, RENAL #### [facility] [address] [place] [address] Dr. Viri Strong EGFR-AF CYMRO 48 mL/min/1.73m2 Critically low >=60 [facility] Comment on above: Performed By: #### M G, URIC, RENAL #### [facility] [address] [place] [address] Dr. Viri Strong EGFR-NON AF CYMRO 39 mL/min/1.73m2 Critically low >=60 [facility] Comment on above: Performed By: #### M G, URIC, RENAL #### [facility] [address] [place] [address] Dr. Viri Strong Glucose [Mass/Vol] 92 mg/dL Normal 74-106 [facility] Comment on above: Performed By: #### M G, URIC, RENAL #### [facility] [address] [place] [address] Dr. Viri Strong Phosphate [Mass/Vol] 4.0 mg/dL Normal 2.6-4.7 [facility] Comment on above: Performed By: #### M G, URIC, RENAL #### [facility] [address] [place] [address] Dr. Viri Strong Potassium [Moles/Vol] 4.7 mmol/L Normal 3.5-5.1 [facility] Comment on above: Performed By: #### M G, URIC, RENAL #### [facility] [address] [place] [address] Dr. Viri Strong Sodium [Moles/Vol] 138 mmol/L Normal 136-145 [facility] Comment on above: Performed By: #### M G, URIC, RENAL #### [facility] [address] [place] [address] Dr. Viri Strong Urea nitrogen [Mass/Vol] 33.0 mg/dL Critically high 7.0-18 .0 [facility] Comment on above: Performed By: #### M G, URIC, RENAL #### [facility] [address] [place] [address] Dr. Viri Strong UA RANDOM W/MICROSCOPICon BACTERIA NONE SEEN Normal NONE SEEN [facility] Comment on above: Performed By: #### B MP, LIPID, AST, TSH, ALT #### [facility] [address] [place] [address] Dr. Viri Strong Bilirubin Ql (U) Negative Normal NEGATIVE [facility] Comment on above: Performed By: #### B MP, LIPID, AST, TSH, ALT #### [facility] [address] [place] [address] Dr. Viri Strong CAST NONE SEEN Normal NONE SEEN [facility] Comment on above: Performed By: #### B MP, LIPID, AST, TSH, ALT #### [facility] [address] [place] [address] Dr. Viri Strong Clarity (U) CLEAR Normal CLEAR [facility] Comment on above: Performed By: #### B MP, LIPID, AST, TSH, ALT #### [facility] [address] [place] [address] Dr. Viri Strong Color (U) LT. YELLOW Normal YELLOW [facility] Comment on above: Performed By: #### B MP, LIPID, AST, TSH, ALT #### [facility] [address] [place] [address] Dr. Viri Strong Crystals LM Nom (Urine sed) NONE SEEN Normal NONE SEEN [facility] Comment on above: Performed By: #### B MP, LIPID, AST, TSH, ALT #### [facility] [address] [place] [address] Dr. Viri Strong Epithelial cells LM Ql (Urine sed) NONE SEEN Normal NONE SEEN /RARE [facility] Comment on above: Performed By: #### B MP, LIPID, AST, TSH, ALT #### [facility] [address] [place] [address] Dr. Viri Strong Glucose Ql (U) Negative Normal NEGATIVE [facility] Comment on above: Performed By: #### B MP, LIPID, AST, TSH, ALT #### [facility] [address] [address] [address] Viri Strong Hemoglobin Ql (U) Negative Normal NEGATIVE [facility] Comment on above: Performed By: #### B MP, LIPID, AST, TSH, ALT #### [facility] [address] [address] [address] Viri Strong Ketones Ql (U) Negative Normal NEGATIVE [facility] Comment on above: Performed By: #### B MP, LIPID, AST, TSH, ALT #### [facility] [address] [address] [address] Viri Strong LEUKOCYTES SMALL Abnormal NEGATIVE [facility] Comment on above: Performed By: #### B MP, LIPID, AST, TSH, ALT #### [facility] [address] [place] [address] Dr. Viri Strong MUCOUS NONE SEEN Normal NONE SEEN [facility] Comment on above: Performed By: #### B MP, LIPID, AST, TSH, ALT #### [facility] [address] [address] [address] Viri Strong Nitrite Ql (U) Negative Normal NEGATIVE [facility] Comment on above: Performed By: #### B MP, LIPID, AST, TSH, ALT #### [facility] [address] [address] [address] Viri Strong pH (U) 5.5 [pH] Normal 5-9 [facility] Comment on above: Performed By: #### B MP, LIPID, AST, TSH, ALT #### [facility] [address] [address] [address] Viri Strong RBC 0-2 Normal 0-2 [facility] Comment on above: Performed By: #### B MP, LIPID, AST, TSH, ALT #### [facility] [address] [address] [address] Viri Strong SPEC GRAVITY 1.020 Normal 1.005-<=1.02 5 [facility] Comment on above: Performed By: #### B MP, LIPID, AST, TSH, ALT #### [facility] [address] [address] [address] Viri Strong UA PROTEIN Negative Normal NEGATIVE/ TRACE [facility] Comment on above: Performed By: #### B MP, LIPID, AST, TSH, ALT #### [facility] [address] [place] [address] Dr. Viri Strong Urobilinogen Qn (U) 0.2 {Alem'U}/dL Normal 0.2 - 1. 0 [facility] Comment on above: Performed By: #### B MP, LIPID, AST, TSH, ALT #### [facility] [address] [place] [address] Dr. Viri Strong WBC 0-2 Abnormal NONE SEEN [facility] Comment on above: Performed By: #### B MP, LIPID, AST, TSH, ALT #### [facility] [address] [place] [address] Dr. Viri Strong URIC ACID SERUMon 01-03-2022 Urate [Mass/Vol] 8.7 mg/dL Critically high 2.6-6.0 [facility] Comment on above: Performed By: #### M G, URIC, RENAL #### [facility] [address] [place] [address] Dr. Viri Strong URINE T PROTEIN CREAT RATIOo n 01-03-2022 Protein (U) [Mass/Vol] 30.8 mg/dL Critically high <=12.0 [facility] Comment on above: Performed By: #### B MP, LIPID, AST, TSH, ALT #### [facility] [address] [place] [address] Dr. Viri Strong UR PROT CREAT RAT 0.26 Normal [facility] Comment on above: Performed By: #### B MP, LIPID, AST, TSH, ALT #### [facility] [address] [place] [address] Dr. Viri Strong URINE CREAT 118.48 mg/dL Normal 20.00-300.00 [facility] Comment on above: Performed By: #### B MP, LIPID, AST, TSH, ALT #### [facility] [address] [address] [address] Viri Strong VITAMIN D 25 OHon 01-03-2022 VIT D 25-OH 36.5 ng/mL Normal [facility] Comment on above: Performed By: #### B MP, LIPID, AST, TSH, ALT #### [facility] [address] [address] [address] Viri Strong VIT D RANGES SEE BELOW Normal [facility] Comment on above: Result Comment: <20 ng/mL Vit D deficient 20 - <30 ng/mL Vit D insufficient 30 - 100 ng/mL Vit D sufficient >100 ng/mL Potential Toxicity Performed By: #### B MP, LIPID, AST, TSH, ALT #### [facility] [address] [address] [address] Viri Strong MICROALBUMIN URINEon 022 Albumin, Urine 5.1 ug/mL Normal Not Estab. The [facility] Comment on above: Performed By: #### B MP, LIPID, AST, TSH, ALT #### [facility] [address] [address] [address] Viri Strong VIT D 25-OH LABCORPon 2021 Vitamin D, 25-Hydroxy 36.7 ng/mL Normal 30.0-100.0 [facility] Comment on above: Result Comment: Silvina min D deficiency has been defined by the [place] [employer] and an Endocrine Society practice guideline as a level of serum 25-OH vitamin D less than 20 ng/mL (1,2). The Endocrine Society went on to further define vitamin D insufficiency as a level between 21 and 29 ng/mL (2). 1. IOM ([place] [employer]). 2010. Dietary reference intakes for calcium and D. [place]: The National Academies Press. 2. Levon MF, Prakash NC, Diamond KIRBY, et al. Evaluation, treatment, and prevention of vitamin D deficiency: an Endocrine Society clinical practice guideline. JCEM. 2010; 96(7):1911-30. Performed By: #### B MP, LIPID, AST, TSH, ALT #### [facility] [address] [place] [address] Dr. Viri Srtong CBC AUTO DIFFon 10-26-2021 BASO # 0.1 103/ul Normal 0.0-0.1 [facility] Comment on above: Performed By: #### B MP, LIPID, AST, TSH, ALT #### [facility] [address] [place] [address] Dr. Viri Strong Basophils/100 WBC (Bld) 1.0 % Normal 0.2-2.0 [facility] Comment on above: Performed By: #### B MP, LIPID, AST, TSH, ALT #### [facility] [address] [place] [address] Dr. Viri Strong EO # 0.2 103/ul Normal 0.0-0.7 [facility] Comment on above: Performed By: #### B MP, LIPID, AST, TSH, ALT #### [facility] [address] [place] [address] Dr. Viri Strong Eosinophils/100 WBC (Bld) 4.6 % Normal 0.9-7.0 [facility] Comment on above: Performed By: #### B MP, LIPID, AST, TSH, ALT #### [facility] [address] [place] [address] Dr. Viri Strong Erythrocyte distribution width (RBC) [Ratio] 13.5 % Normal 11.0-15.0 [facility] Comment on above: Performed By: #### B MP, LIPID, AST, TSH, ALT #### [facility] [address] [place] [address] Dr. Viri Strong Hematocrit (Bld) [Volume fraction] 32.3 % Critically low 36.0-48.0 [facility] Comment on above: Performed By: #### B MP, LIPID, AST, TSH, ALT #### [facility] [address] [place] [address] Dr. Viri Strong Hemoglobin (Bld) [Mass/Vol] 10.7 g/dL Critically low 12.0-16.0 [facility] Comment on above: Performed By: #### B MP, LIPID, AST, TSH, ALT #### [facility] [address] [place] [address] Dr. Viri Strong IG # 0.01 10e3/ul Normal 0.00-0.03 [facility] Comment on above: Performed By: #### B MP, LIPID, AST, TSH, ALT #### [facility] [address] [place] [address] Dr. Viri Strong IG % 0.2 % Normal 0.0-0.5 [facility] Comment on above: Performed By: #### B MP, LIPID, AST, TSH, ALT #### [facility] [address] [place] [address] Dr. Viri Strong LYMPH # 1.3 103/ul Normal 1.2-3.8 [facility] Comment on above: Performed By: #### B MP, LIPID, AST, TSH, ALT #### [facility] [address] [place] [address] Dr. Viri Strong Lymphocytes/100 WBC (Bld) 25.5 % Normal 20.5-60.0 [facility] Comment on above: Performed By: #### B MP, LIPID, AST, TSH, ALT #### [facility] [address] [place] [address] Dr. Viri Strong MANUAL DIFF REQ NO Normal [facility] Comment on above: Performed By: #### B MP, LIPID, AST, TSH, ALT #### [facility] [address] [place] [address] Dr. Viri Strong MCH (RBC) [Entitic mass] 29.3 pg Normal 26.7-34.0 [facility] Comment on above: Performed By: #### B MP, LIPID, AST, TSH, ALT #### [facility] [address] [place] [address] Dr. Viri Strong MCHC (RBC) [Mass/Vol] 33.1 g/dL Normal 29.9-35.2 [facility] Comment on above: Performed By: #### B MP, LIPID, AST, TSH, ALT #### [facility] [address] [place] [address] Dr. Viri Strong MCV (RBC) [Entitic vol] 88.5 fL Normal 81.0-99.0 [facility] Comment on above: Performed By: #### B MP, LIPID, AST, TSH, ALT #### [facility] [address] [place] [address] Dr. Viri Strong MONO # 0.4 103/ul Normal 0.3-0.8 [facility] Comment on above: Performed By: #### B MP, LIPID, AST, TSH, ALT #### [facility] [address] [place] [address] Dr. Viri Strong Monocytes/100 WBC (Bld) 8.0 % Normal 1.7-12.0 [facility] Comment on above: Performed By: #### B MP, LIPID, AST, TSH, ALT #### [facility] [address] [place] [address] Dr. Viri Strong NEUT # 3.0 103/ul Normal 1.4-6.5 [facility] Comment on above: Performed By: #### B MP, LIPID, AST, TSH, ALT #### [facility] [address] [place] [address] Dr. Viri Strong Neutrophils/100 WBC (Bld) 60.7 % Normal 43.0-75.0 [facility] Comment on above: Performed By: #### B MP, LIPID, AST, TSH, ALT #### [facility] [address] [place] [address] Dr. Viri Strong Platelet mean volume (Bld) [Entitic vol] 9.8 fL Normal 9.5-13.5 [facility] Comment on above: Performed By: #### B MP, LIPID, AST, TSH, ALT #### [facility] [address] [place] [address] Dr. Viri Strong PLT 266 103/ul Normal 150-450 [facility] Comment on above: Performed By: #### B MP, LIPID, AST, TSH, ALT #### [facility] [address] [place] [address] Dr. Viri Strong RBC 3.65 106/ul Critically low 4.20-5.40 [facility] Comment on above: Performed By: #### B MP, LIPID, AST, TSH, ALT #### [facility] [address] [place] [address] Dr. Viri Strong WBC 5.0 103/ul Normal 4.0-11.0 [facility] Comment on above: Performed By: #### B MP, LIPID, AST, TSH, ALT #### [facility] [address] [place] [address] Dr. Viri Strong GLYCOHEMOGLOBIN A1Con 2021 ADA RECOMMENDATION SEE BELOW Normal [facility] Comment on above: Result Comment: ADA RECOMMENDED LIMIT 4.0 - 6.0 ADA THERAPEUTIC TARGET < 7.0 ACTION SUGGESTED > 7.0 Performed By: #### B MP, LIPID, AST, TSH, ALT #### [facility] [address] [place] [address] Dr. Viri Strong Glucose [Mass/Vol] 117 mg/dL Normal [facility] Comment on above: Performed By: #### B MP, LIPID, AST, TSH, ALT #### [facility] [address] [place] [address] Dr. Viri Strong HbA1c (Bld) [Mass fraction] 5.7 % Normal 4.5-6.2 [facility] Comment on above: Performed By: #### B MP, LIPID, AST, TSH, ALT #### [facility] [address] [place] [address] Dr. Viri Strong LIPID PROFILEon 10-26-2021 CHOL-HDL RATIO NORM SEE BELOW Normal [facility] Comment on above: Result Comment: 3.3 - 4.4 LOW RISK 4.4 - 7.1 AVERAGE RISK 7.1 - 11.0 MODERATE RISK >11.0 HIGH RISK Performed By: #### B MP, LIPID, AST, TSH, ALT #### [facility] [address] [place] [address] Dr. Viri Strong Cholesterol [Mass/Vol] 158 mg/dL Normal <=200 [facility] Comment on above: Performed By: #### B MP, LIPID, AST, TSH, ALT #### [facility] [address] [address] [address] Viri Strong Cholesterol in HDL [Mass/Vol] 86 mg/dL Critically high 40-60 [facility] Comment on above: Performed By: #### B MP, LIPID, AST, TSH, ALT #### [facility] [address] [address] [address] Viri Strong Cholesterol in LDL [Mass/Vol] 50.0 mg/dL Normal [facility] Comment on above: Performed By: #### B MP, LIPID, AST, TSH, ALT #### [facility] [address] [address] [address] Viri Strong Cholesterol.total/Cholest ana in HDL [Mass ratio] 1.8 {ratio} Normal [facility] Comment on above: Performed By: #### B MP, LIPID, AST, TSH, ALT #### [facility] [address] [address] [address] Viri Strong HDL NORMAL > or = 60 mg/dl - LOW CARDIOVASCULAR RISK <40 mg/dl - HIGH CARDIOVASCULAR RISK Normal [facility] Comment on above: Performed By: #### B MP, LIPID, AST, TSH, ALT #### [facility] [address] [address] [address] Viri Strong LDL CALC NORMAL SEE BELOW Normal [facility] Comment on above: Result Comment: <100 mg/dl OPTIMAL 100 - 129 mg/dl NEAR OR ABOVE OPTIMAL 130 - 159 mg/dl BORDERLINE HIGH 160 - 189 mg/dl HIGH >190 mg/dl VERY HIGH Performed By: #### B MP, LIPID, AST, TSH, ALT #### [facility] [address] [address] [address] Viri Strong Triglyceride [Mass/Vol] 110 mg/dL Normal <=150 T [facility] Comment on above: Performed By: #### B MP, LIPID, AST, TSH, ALT #### [facility] [address] [address] [address] Viri Strong VLDL CALC 22.0 mg/dL Normal [facility] Comment on above: Performed By: #### B MP, LIPID, AST, TSH, ALT #### [facility] [address] [place] [address] Dr. Viri Strong PROF CHEM 8 (BAS METB)on Anion gap [Moles/Vol] 13.8 mmol/L Normal [facility] Comment on above: Performed By: #### B MP, LIPID, AST, TSH, ALT #### [facility] [address] [place] [address] Dr. Viri Strong Calcium [Mass/Vol] 9.3 mg/dL Normal 8.5-10.1 [facility] Comment on above: Performed By: #### B MP, LIPID, AST, TSH, ALT #### [facility] [address] [place] [address] Dr. Viri Strong Chloride [Moles/Vol] 92 mmol/L Critically low 98-107 [facility] Comment on above: Performed By: #### B MP, LIPID, AST, TSH, ALT #### [facility] [address] [place] [address] Dr. Viri Strong CO2 [Moles/Vol] 26.0 mmol/L Normal 21.0-32.0 [facility] Comment on above: Performed By: #### B MP, LIPID, AST, TSH, ALT #### [facility] [address] [place] [address] Dr. Viri Strong Creatinine [Mass/Vol] 1.15 mg/dL Critically high 0.55-1.02 [facility] Comment on above: Performed By: #### B MP, LIPID, AST, TSH, ALT #### [facility] [address] [place] [address] Dr. Viri Strong EGFR-AF CYMRO 56 mL/min/1.73m2 Critically low >=60 [facility] Comment on above: Performed By: #### B MP, LIPID, AST, TSH, ALT #### [facility] [address] [place] [address] Dr. Viri Strong EGFR-NON AF CYMRO 46 mL/min/1.73m2 Critically low >=60 [facility] Comment on above: Performed By: #### B MP, LIPID, AST, TSH, ALT #### [facility] [address] [address] [address] Viri Strong Glucose [Mass/Vol] 92 mg/dL Normal 74-106 [facility] Comment on above: Performed By: #### B MP, LIPID, AST, TSH, ALT #### [facility] [address] [place] [address] Dr. Viri Strong Potassium [Moles/Vol] 4.8 mmol/L Normal 3.5-5.1 [facility] Comment on above: Performed By: #### B MP, LIPID, AST, TSH, ALT #### [facility] [address] [place] [address] Dr. Viri Strong Sodium [Moles/Vol] 127 mmol/L Critically low 136-145 [facility] Comment on above: Performed By: #### B MP, LIPID, AST, TSH, ALT #### [facility] [address] [place] [address] Dr. Viri Strong Urea nitrogen [Mass/Vol] 19.0 mg/dL Critically high 7.0-18 .0 [facility] Comment on above: Performed By: #### B MP, LIPID, AST, TSH, ALT #### [facility] [address] [place] [address] Dr. Viri Strong Urea nitrogen/Creatinine [Mass ratio] 16.5 mg/mg Normal [facility] Comment on above: Performed By: #### B MP, LIPID, AST, TSH, ALT #### [facility] [address] [place] [address] Dr. Viri Deleon 10-26-2021 AST [Catalytic activity/Vol] 15 U/L Normal 15-37 [facility] Comment on above: Performed By: #### B MP, LIPID, AST, TSH, ALT #### [facility] [address] [place] [address] Dr. Viri Moreira 10-26-2021 ALT [Catalytic activity/Vol] 25 U/L Normal 14-59 [facility] Comment on above: Performed By: #### B MP, LIPID, AST, TSH, ALT #### [facility] [address] [address] [address] Viri Strong TSHon 10-26-2021 TSH 1.833 uIU/mL Normal 0.358-3.740 [facility] Comment on above: Performed By: #### B MP, LIPID, AST, TSH, ALT #### [facility] [address] [place] [address] Dr. Viri Strong FREE LIGHT CHAINS PLUS RATIO on 06-03-2021 Free Tollette Lt Chains,S 26.6 mg/L Critically high 3.3-19.4 [facility] Comment on above: Performed By: #### B MP, LIPID, AST, TSH, ALT #### [facility] [address] [address] [address] Viri Strong Free Lambda Lt Chains,S 19.6 mg/L Normal 5.7-26.3 [facility] Comment on above: Performed By: #### B MP, LIPID, AST, TSH, ALT #### [facility] [address] [place] [address] Dr. Viri Strong Tollette/Lambda Ratio, S 1.36 Normal 0.26-1.65 [facility] Comment on above: Performed By: #### B MP, LIPID, AST, TSH, ALT #### [facility] [address] [place] [address] Dr. Viri Strong IMMUNOFIXATION (MONIKA), URINEo n 06-03-2021 MONIKA Interpretation:U Comment Normal [facility] Comment on above: Result Comment: No m onoclonality detected. Performed By: #### B MP, LIPID, AST, TSH, ALT #### [facility] [address] [place] [address] Dr. Viri Strong PROTEIN ELECTROPHERESIS URIN E RANDOMon 06-03-2021 Albumin, U 60.9 % Normal [facility] Comment on above: Performed By: #### U PTE #### [facility] [address] [place] [address] Dr. Viri Strong Alpha-1 Globulin U 3.9 % Normal [facility] Comment on above: Performed By: #### U PTE #### [facility] [address] [address] [address] Viri Strong Alpha-2 Glubulin U 8.2 % Normal [facility] Comment on above: Performed By: #### U PTE #### [facility] [address] [address] [address] Viri Strong Beta Globulin, U 17.3 % Normal [facility] Comment on above: Performed By: #### U PTE #### [facility] [address] [address] [address] Viri Strong Gamma Globulin U 9.7 % Normal [facility] Comment on above: Performed By: #### U PTE #### [facility] [address] [place] [address] Dr. Viri Strong M-Ciro, % Not Observed Normal Not Observed [facility] Comment on above: Performed By: #### U PTE #### [facility] [address] [place] [address] Dr. Viri Strong PDF . Normal [facility] Comment on above: Performed By: #### U PTE #### [facility] [address] [place] [address] Dr. Viri Strong Please note: Comment Normal [facility] Comment on above: Result Comment: Prot ein electrophoresis scan will follow via computer, mail, or business services representative delivery. Performed By: #### U PTE #### [facility] [address] [place] [address] Dr. Viri Strong Protein (U) [Mass/Vol] 12.2 mg/dL Normal Not Estab. [facility] Comment on above: Performed By: #### U PTE #### [facility] [address] [place] [address] Dr. Viri Strong HEP B SURFACE AGon 2 HBsAg Screen Negative Normal Negative [facility] Comment on above: Performed By: #### B MP, LIPID, AST, TSH, ALT #### [facility] [address] [place] [address] Dr. Viri Strong HEPATITIS B SURFACE ANTIBODY , QUANTon 06-02-2021 Hepatitis B Surf AB Quant <3.1 Critically low Immuni ty>9.9 [facility] Comment on above: Result Comment: Stat us of Immunity Anti-HBs Level Inconsistent with Immunity 0.0 - 9.9 Consistent with Immunity >9.9 Performed By: #### B MP, LIPID, AST, TSH, ALT #### [facility] [address] [place] [address] Dr. Viri Strong HEPATITIS C VIRUS AB W/ REFL EX QUANTon 06-02-2021 HCV AB <0.1 Normal 0.0-0.9 [facility] Comment on above: Performed By: #### H CVPCRR #### [facility] [address] [place] [address] Dr. Viri Strong Interpretation: Comment Normal [facility] Comment on above: Result Comment: Nega tive Not infected with HCV, unless recent infection is suspected or other evidence exists to indicate HCV infection. Performed By: #### H CVPCRR #### [facility] [address] [place] [address] Dr. Viri Strong IMMUNOFIXATION (MONIKA), SERUMo n 06-02-2021 IMMUNOFIXATION RESULT Comment Normal [facility] Comment on above: Result Comment: No m onoclonality detected. Performed By: #### B MP, LIPID, AST, TSH, ALT #### [facility] [address] [address] [address] Viri Strong Immunoglobulin A, Qn, Serum 152 mg/dL Normal 64-422 [facility] Comment on above: Performed By: #### B MP, LIPID, AST, TSH, ALT #### [facility] [address] [place] [address] Dr. Viri Strong Immunoglobulin G, Qn, Serum 510 mg/dL Critically low 586-1602 [facility] Comment on above: Performed By: #### B MP, LIPID, AST, TSH, ALT #### [facility] [address] [place], [place] [id number] Dr. Viri Strong Immunoglobulin M, Qn, Serum 68 mg/dL Normal 26-217 [facility] Comment on above: Performed By: #### B MP, LIPID, AST, TSH, ALT #### [facility] [address] [place] [address] Dr. Viri Strong PROTEIN ELECTROPHERESISon Albumin [Mass/Vol] 4.0 g/dL Normal 2.9-4.4 [facility] Comment on above: Performed By: #### B MP, LIPID, AST, TSH, ALT #### [facility] [address] [place] [address] Dr. Viri Strong Albumin/Globulin [Mass ratio] 1.4 {ratio} Normal 0.7-1.7 [facility] Comment on above: Performed By: #### B MP, LIPID, AST, TSH, ALT #### [facility] [address] [place] [address] Dr. Viri Strong Rlgry-8-Tfccfdtd 0.3 g/dL Normal 0.0-0.4 [facility] Comment on above: Performed By: #### B MP, LIPID, AST, TSH, ALT #### [facility] [address] [place] [address] Dr. Viri Strong Jngnd-3-Bavszlfk 0.9 g/dL Normal 0.4-1.0 [facility] Comment on above: Performed By: #### B MP, LIPID, AST, TSH, ALT #### [facility] [address] [place] [address] Dr. Viri Strong Beta Globulin 1.1 g/dL Normal 0.7-1.3 [facility] Comment on above: Performed By: #### B MP, LIPID, AST, TSH, ALT #### [facility] [address] [place] [address] Dr. Viri Strong Gamma Globulin 0.6 g/dL Normal 0.4-1.8 [facility] Comment on above: Performed By: #### B MP, LIPID, AST, TSH, ALT #### [facility] [address] [place] [address] Dr. Viri Strong Globulin (S) [Mass/Vol] 2.9 g/dL Normal 2.2-3.9 [facility] Comment on above: Performed By: #### B MP, LIPID, AST, TSH, ALT #### [facility] [address] [address] [address] Viri Strong M-Ciro Not Observed Normal Not Observed [facility] Comment on above: Performed By: #### B MP, LIPID, AST, TSH, ALT #### [facility] [address] [address] [address] Viri Strong PDF . Normal [facility] Comment on above: Performed By: #### B MP, LIPID, AST, TSH, ALT #### [facility] [address] [place] [address] Dr. Viri Strong Please note: Comment Normal [facility] Comment on above: Result Comment: Prot ein electrophoresis scan will follow via computer, mail, or business services representative delivery. Performed By: #### B MP, LIPID, AST, TSH, ALT #### [facility] [address] [address] [address] Viri Strong Protein [Mass/Vol] 6.9 g/dL Normal 6.0-8.5 [facility] Comment on above: Performed By: #### B MP, LIPID, AST, TSH, ALT #### [facility] [address] [place] [address] Dr. Viri Strong PTH INTACTon 06-02-2021 PTH, Intact 27 pg/mL Normal 15-65 [facility] Comment on above: Performed By: #### B MP, LIPID, AST, TSH, ALT #### [facility] [address] [address] [address] Viri Strong FERRITINon 06-01-2021 Ferritin [Mass/Vol] 48.0 ng/mL Normal 11.1-264.0 [facility] Comment on above: Performed By: #### B MP, LIPID, AST, TSH, ALT #### [facility] [address] [place] [address] Dr. Viri Strong HEMOGRAM AND PLATELon 2021 Hematocrit (Bld) [Volume fraction] 33.9 % Critically low 36.0-48.0 [facility] Comment on above: Performed By: #### B MP, LIPID, AST, TSH, ALT #### [facility] [address] [place] [address] Dr. Viri Strong Hemoglobin (Bld) [Mass/Vol] 11.1 g/dL Critically low 12.0-16.0 [facility] Comment on above: Performed By: #### B MP, LIPID, AST, TSH, ALT #### [facility] [address] [place] [address] Dr. Viri Strong MCH (RBC) [Entitic mass] 29.8 pg Normal 26.7-34.0 [facility] Comment on above: Performed By: #### B MP, LIPID, AST, TSH, ALT #### [facility] [address] [place] [address] Dr. Viri Strong MCHC (RBC) [Mass/Vol] 32.7 g/dL Normal 29.9-35.2 [facility] Comment on above: Performed By: #### B MP, LIPID, AST, TSH, ALT #### [facility] [address] [place] [address] Dr. Viri Strong MCV (RBC) [Entitic vol] 90.9 fL Normal 81.0-99.0 [facility] Comment on above: Performed By: #### B MP, LIPID, AST, TSH, ALT #### [facility] [address] [place] [address] Dr. Viri Strong PLT 240 103/ul Normal 150-450 [facility] Comment on above: Performed By: #### B MP, LIPID, AST, TSH, ALT #### [facility] [address] [place] [address] Dr. Viri Strong RBC 3.73 106/ul Critically low 4.20-5.40 [facility] Comment on above: Performed By: #### B MP, LIPID, AST, TSH, ALT #### [facility] [address] [place] [address] Dr. Viri Strong WBC 7.8 103/ul Normal 4.0-11.0 [facility] Comment on above: Performed By: #### B MP, LIPID, AST, TSH, ALT #### [facility] [address] [place] [address] Dr. Viri Strong IRON AND TIBCon 06-01-2021 % SATURATION 18.0 % Normal [facility] Comment on above: Performed By: #### B MP, LIPID, AST, TSH, ALT #### [facility] [address] [place] [address] Dr. Viri Strong Iron [Mass/Vol] 58.0 ug/dL Normal 37.0-170.0 [facility] Comment on above: Performed By: #### B MP, LIPID, AST, TSH, ALT #### [facility] [address] [place] [address] Dr. Viri Strong TIBC DIRECT 323.0 ug/dL Normal 261.0-497.0 [facility] Comment on above: Performed By: #### B MP, LIPID, AST, TSH, ALT #### [facility] [address] [place] [address] Dr. Viri Strong MAGNESIUMon 06-01-2021 Magnesium [Mass/Vol] 2.1 mg/dL Normal 1.6-2.3 [facility] Comment on above: Performed By: #### B MP, LIPID, AST, TSH, ALT #### [facility] [address] [place] [address] Dr. Viri Strong RENAL FUNCTION PANELon 06-01 Albumin [Mass/Vol] 4.4 g/dL Normal 3.4-5.0 [facility] Comment on above: Performed By: #### B MP, LIPID, AST, TSH, ALT #### [facility] [address] [place] [address] Dr. Viri Strong Calcium [Mass/Vol] 10.0 mg/dL Normal 8.5-10.1 [facility] Comment on above: Performed By: #### B MP, LIPID, AST, TSH, ALT #### [facility] [address] [address] [address] Viri Strong Chloride [Moles/Vol] 103 mmol/L Normal 98-107 [facility] Comment on above: Performed By: #### B MP, LIPID, AST, TSH, ALT #### [facility] [address] [place] [address] Dr. Viri Strong CO2 [Moles/Vol] 26.8 mmol/L Normal 22.0-30.0 [facility] Comment on above: Performed By: #### B MP, LIPID, AST, TSH, ALT #### [facility] [address] [place] [address] Dr. Viri Strong Creatinine [Mass/Vol] 1.18 mg/dL Critically high 0.52-1.04 [facility] Comment on above: Performed By: #### B MP, LIPID, AST, TSH, ALT #### [facility] [address] [place] [address] Dr. Vrii Strong EGFR-AF CYMRO 54 mL/min/1.73m2 Critically low >=60 [facility] Comment on above: Performed By: #### B MP, LIPID, AST, TSH, ALT #### [facility] [address] [place] [address] Dr. Viri Strong EGFR-NON AF CYMRO 45 mL/min/1.73m2 Critically low >=60 [facility] Comment on above: Performed By: #### B MP, LIPID, AST, TSH, ALT #### [facility] [address] [place] [address] Dr. Viri Strong Glucose [Mass/Vol] 93 mg/dL Normal 74-106 [facility] Comment on above: Performed By: #### B MP, LIPID, AST, TSH, ALT #### [facility] [address] [place] [address] Dr. Viri Strong Phosphate [Mass/Vol] 4.1 mg/dL Normal 2.5-4.5 [facility] Comment on above: Performed By: #### B MP, LIPID, AST, TSH, ALT #### [facility] [address] [place] [address] Dr. Viri Strong Potassium [Moles/Vol] 4.8 mmol/L Normal 3.4-5.0 [facility] Comment on above: Performed By: #### B MP, LIPID, AST, TSH, ALT #### [facility] [address] [place] [address] Dr. Viri Strong Sodium [Moles/Vol] 140 mmol/L Normal 137-145 [facility] Comment on above: Performed By: #### B MP, LIPID, AST, TSH, ALT #### [facility] [address] [place] [address] Dr. Viri Strong Urea nitrogen [Mass/Vol] 24.0 mg/dL Critically high 7.0-18 .0 [facility] Comment on above: Performed By: #### B MP, LIPID, AST, TSH, ALT #### [facility] [address] [place] [address] Dr. Viri Strong UA RANDOM W/MICROSCOPICon BACTERIA TRACE Abnormal NONE SEEN [facility] Comment on above: Performed By: #### B MP, LIPID, AST, TSH, ALT #### [facility] [address] [place] [address] Dr. Viri Strong Bilirubin Ql (U) Negative Normal NEGATIVE [facility] Comment on above: Performed By: #### B MP, LIPID, AST, TSH, ALT #### [facility] [address] [place] [address] Dr. Viri Strong CAST NONE SEEN Normal NONE SEEN [facility] Comment on above: Performed By: #### B MP, LIPID, AST, TSH, ALT #### [facility] [address] [place] [address] Dr. Viri Strong Clarity (U) CLEAR Normal CLEAR [facility] Comment on above: Performed By: #### B MP, LIPID, AST, TSH, ALT #### [facility] [address] [place] [address] Dr. Viri Strong Color (U) LT. YELLOW Normal YELLOW [facility] Comment on above: Performed By: #### B MP, LIPID, AST, TSH, ALT #### [facility] [address] [address] [address] Viri Strong Crystals LM Nom (Urine sed) NONE SEEN Normal NONE SEEN [facility] Comment on above: Performed By: #### B MP, LIPID, AST, TSH, ALT #### [facility] [address] [place] [address] Dr. Viri Strong Epithelial cells LM Ql (Urine sed) RARE Normal NONE SEEN /RARE [facility] Comment on above: Performed By: #### B MP, LIPID, AST, TSH, ALT #### [facility] [address] [place] [address] Dr. Viri Strong Glucose Ql (U) Negative Normal NEGATIVE [facility] Comment on above: Performed By: #### B MP, LIPID, AST, TSH, ALT #### [facility] [address] [place] [address] Dr. Viri Strong Hemoglobin Ql (U) Negative Normal NEGATIVE [facility] Comment on above: Performed By: #### B MP, LIPID, AST, TSH, ALT #### [facility] [address] [place] [address] Dr. Viri Strong Ketones Ql (U) Negative Normal NEGATIVE [facility] Comment on above: Performed By: #### B MP, LIPID, AST, TSH, ALT #### [facility] [address] [place] [address] Dr. Viri Strong LEUKOCYTES MODERATE Abnormal NEGATIVE [facility] Comment on above: Performed By: #### B MP, LIPID, AST, TSH, ALT #### [facility] [address] [place] [address] Dr. Viri Strong MUCOUS NONE SEEN Normal NONE SEEN [facility] Comment on above: Performed By: #### B MP, LIPID, AST, TSH, ALT #### [facility] [address] [place] [address] Dr. Viri Strong Nitrite Ql (U) Negative Normal NEGATIVE [facility] Comment on above: Performed By: #### B MP, LIPID, AST, TSH, ALT #### [facility] [address] [place] [address] Dr. Viri Strong pH (U) 6.0 [pH] Normal 5-9 [facility] Comment on above: Performed By: #### B MP, LIPID, AST, TSH, ALT #### [facility] [address] [place] [address] Dr. Viri Strong RBC 0-2 Normal 0-2 [facility] Comment on above: Performed By: #### B MP, LIPID, AST, TSH, ALT #### [facility] [address] [place] [address] Dr. Viri Strong SPEC GRAVITY 1.010 Normal 1.005-<=1.02 5 [facility] Comment on above: Performed By: #### B MP, LIPID, AST, TSH, ALT #### [facility] [address] [place] [address] Dr. Viri tSrong UA PROTEIN Negative Normal NEGATIVE/ TRACE [facility] Comment on above: Performed By: #### B MP, LIPID, AST, TSH, ALT #### [facility] [address] [place] [address] Dr. Viri Strong Urobilinogen Qn (U) 0.2 {Alem'U}/dL Normal 0.2 - 1. 0 [facility] Comment on above: Performed By: #### B MP, LIPID, AST, TSH, ALT #### [facility] [address] [place] [address] Dr. Viri Strong WBC 2-5 Abnormal NONE SEEN [facility] Comment on above: Performed By: #### B MP, LIPID, AST, TSH, ALT #### [facility] [address] [place] [address] Dr. Viri Strong URIC ACID SERUMon 06-01-2021 Urate [Mass/Vol] 7.4 mg/dL Critically high 2.5-6.2 [facility] Comment on above: Performed By: #### B MP, LIPID, AST, TSH, ALT #### [facility] [address] [place] [address] Dr. Viri Strong URINE T PROTEIN CREAT RATIOo n 06-01-2021 Protein (U) [Mass/Vol] 15.1 mg/dL Critically high <=12.0 [facility] Comment on above: Performed By: #### B MP, LIPID, AST, TSH, ALT #### [facility] [address] [address] [address] Viri Strong UR PROT CREAT RAT 0.29 Normal [facility] Comment on above: Performed By: #### B MP, LIPID, AST, TSH, ALT #### [facility] [address] [address] [address] Viri Strong URINE CREAT 52.27 mg/dL Normal 20.00-300.00 [facility] Comment on above: Performed By: #### B MP, LIPID, AST, TSH, ALT #### [facility] [address] [address] [address] Viri Strong VITAMIN D 25 OHon 06-01-2021 VIT D 25-OH 38.9 ng/mL Normal [facility] Comment on above: Performed By: #### B MP, LIPID, AST, TSH, ALT #### [facility] [address] [address] [address] Viri Strong VIT D RANGES SEE BELOW Normal [facility] Comment on above: Result Comment: <20 ng/mL Vit D deficient 20 - <30 ng/mL Vit D insufficient 30 - 100 ng/mL Vit D sufficient >100 ng/mL Potential Toxicity Performed By: #### B MP, LIPID, AST, TSH, ALT #### [facility] [address] [address] [address] Viri Strong Reminderson 06-28-2019 Reminders --- From: Donna Fiore MA To: EU - Clinical; Sent: 01/16/2019 14:46:43 EST Show up: 04/16/2019 07:00:00 EST Subject: Ambulatory Reminder Due Date/Time: 04/30/2019 07:00:00 EST Reminder/Recall pt is scheduled [place] [place]. Has f/u w/PRW on 05/01/18. Renal US & CXR scheduled for 04/15/18 8am @[facility]. No results in chart yet Per [facility] central scheduling, appt was cancelled and Pt stated she would call back to reschedule. Appt was cancelled 04/12/2019. Pt being sent cert letter. See other message pt r/s for renal us and cxr 07/02/2019 @ 8:45am, [facility]. F/u appt 07/08/19 for results.LG Normal [facility] Reminderson 01-21-2019 Reminders --- From: Donna Fiore MA To: EU - Recalls Michelle; Sent: 01/16/2019 14:06:32 EST Show up: 01/16/2019 07:00:00 EST Subject: needs Renal US & CXR Due Date/Time: 02/02/2019 07:00:00 EST Reminder/Recall pt needs scheduled for 2yr f/u w/Renal US & CXR. done Normal [facility] Vital Signs Date Time Vital Sign Value Performing Clinician Facility 01-02-2024 08:12-0400 Body height 154.94 cm MD Misael Perez Work Phone: [facility] 01-02-2024 08:12-0400 Body mass index (BMI) [Ratio] 33.8 kg/m2 MD Misael Perez Work Phone: [facility] 01-02-2024 08:12-0400 Body temperature 96.5 [degF] MD Misael Perez Work Phone: [facility] 01-02-2024 08:12-0400 Body weight 81.24 kg MD Misael Perez Work Phone: [facility] 01-02-2024 08:12-0400 Diastolic blood pressure 70 mm[Hg] MD Misael Perez Work Phone: [facility] 01-02-2024 08:12-0400 Heart rate 63 /min MD Misael Perez Work Phone: [facility] 01-02-2024 08:12-0400 Respiratory rate 16 /min MD Misael Perez Work Phone: [facility] 01-02-2024 08:12-0400 SaO2% (BldA) [Mass fraction] 95 % MD Misael Perez Work Phone: [facility] 01-02-2024 08:12-0400 Systolic blood pressure 113 mm[Hg] MD Misael Perez Work Phone: [facility] 11-22-2023 10:34-0400 Body height 154.94 cm Misael Perez MD Work Phone: [facility] 11-22-2023 10:34-0400 Body weight 78.01 kg Misael Perez MD Work Phone: [facility] 10-10-2023 13:10-0400 Body height 154.94 cm MD Misael Perez Work Phone: [facility] 10-10-2023 13:10-0400 Body mass index (BMI) [Ratio] 34 kg/m2 MD Misael Perez Work Phone: [facility] 10-10-2023 13:10-0400 Body weight 81.64 kg MD Misael Perez Work Phone: [facility] 09-25-2023 09:59-0400 Body height 154.94 cm MD Misael Perez Work Phone: [facility] 09-25-2023 09:59-0400 Body mass index (BMI) [Ratio] 34.2 kg/m2 MD Misael Perez Work Phone: [facility] 09-25-2023 09:59-0400 Body weight 82.1 kg MD Misael Perez Work Phone: [facility] 09-25-2023 09:59-0400 Diastolic blood pressure 88 mm[Hg] MD Misael Perez Work Phone: [facility] 09-25-2023 09:59-0400 Heart rate 60 /min MD Misael Perez Work Phone: [facility] 09-25-2023 09:59-0400 Systolic blood pressure 138 mm[Hg] MD Misael Perez Work Phone: [facility] 08-21-2023 10:18-0400 Body height 154.94 cm MD Misael Perez Work Phone: [facility] 08-21-2023 10:18-0400 Body mass index (BMI) [Ratio] 34.1 kg/m2 MD Misael Perez Work Phone: [facility] 08-21-2023 10:18-0400 Body temperature 96.6 [degF] MD Misael Perez Work Phone: [facility] 08-21-2023 10:18-0400 Body weight 82 kg MD Misael Perez Work Phone: [facility] 08-21-2023 10:18-0400 Diastolic blood pressure 55 mm[Hg] MD Misael Perez Work Phone: [facility] 08-21-2023 10:18-0400 Heart rate 54 /min MD Misael Perez Work Phone: [facility] 08-21-2023 10:18-0400 Respiratory rate 16 /min MD Misael Perez Work Phone: [facility] 08-21-2023 10:18-0400 SaO2% (BldA) [Mass fraction] 96 % MD Misael Perez Work Phone: [facility] 08-21-2023 10:18-0400 Systolic blood pressure 117 mm[Hg] MD Misael Perez Work Phone: [facility] 08-15-2023 14:00-0400 Body temperature 97.9 [degF] MD Misael Perez Work Phone: [facility] 08-15-2023 14:00-0400 Diastolic blood pressure 81 mm[Hg] MD Misael Perez Work Phone: [facility] 08-15-2023 14:00-0400 Heart rate 58 /min MD Misael Perez Work Phone: [facility] 08-15-2023 14:00-0400 Respiratory rate 18 /min MD Misael Perez Work Phone: [facility] 08-15-2023 14:00-0400 SaO2% (BldA) [Mass fraction] 96 % MD Misael Perez Work Phone: [facility] 08-15-2023 14:00-0400 Systolic blood pressure 135 mm[Hg] MD Misael Perez Work Phone: [facility] 08-15-2023 06:00-0400 Body weight 83.9 kg MD Misael Perez Work Phone: [facility] 08-14-2023 21:53-0400 Body height 154.94 cm MD Misael Perez Work Phone: [facility] 08-14-2023 20:03-0400 Diastolic blood pressure 72 mm[Hg] MD Misael Perez Work Phone: [facility] 08-14-2023 20:03-0400 Heart rate 62 /min MD Misael Perez Work Phone: [facility] 08-14-2023 20:03-0400 Respiratory rate 21 /min MD Misael Perez Work Phone: [facility] 08-14-2023 20:03-0400 SaO2% (BldA) [Mass fraction] 98 % MD Misael Perez Work Phone: [facility] 08-14-2023 20:03-0400 Systolic blood pressure 172 mm[Hg] MD Misael Perez Work Phone: [facility] 08-14-2023 16:28-0400 Body height 154.94 cm MD Misael Perez Work Phone: [facility] 08-14-2023 16:28-0400 Body temperature 98.1 [degF] MD Misael Perez Work Phone: [facility] 08-14-2023 16:28-0400 Body weight 83.9 kg MD Misael Perez Work Phone: [facility] 07-18-2023 10:07-0400 Body height 160.02 cm MD Misael Perez Work Phone: [facility] 07-18-2023 10:07-0400 Body mass index (BMI) [Ratio] 33.3 kg/m2 MD Misael Perez Work Phone: [facility] 07-18-2023 10:07-0400 Body temperature 96.4 [degF] MD Misael Perez Work Phone: [facility] 07-18-2023 10:07-0400 Body weight 85.47 kg MD Misael Perez Work Phone: [facility] 07-18-2023 10:07-0400 Diastolic blood pressure 64 mm[Hg] MD Misael Perez Work Phone: [facility] 07-18-2023 10:07-0400 Heart rate 68 /min MD Misael Perez Work Phone: [facility] 07-18-2023 10:07-0400 Respiratory rate 16 /min MD Misael Perez Work Phone: [facility] 07-18-2023 10:07-0400 SaO2% (BldA) [Mass fraction] 94 % MD Misael Perez Work Phone: [facility] 07-18-2023 10:07-0400 Systolic blood pressure 99 mm[Hg] MD Misael Perez Work Phone: [facility] 07-13-2023 11:55-0400 Body height 160.02 cm [facility] 07-13-2023 11:55-0400 Body mass index (BMI) [Ratio] 33.3 kg/m2 [facility] 07-13-2023 11:55-0400 Body temperature 97.3 [degF] [facility] 07-13-2023 11:55-0400 Body weight 85.36 kg [facility] 07-13-2023 11:55-0400 Diastolic blood pressure 70 mm[Hg] [facility] 07-13-2023 11:55-0400 Heart rate 55 /min [facility] 07-13-2023 11:55-0400 Respiratory rate 16 /min [facility] 07-13-2023 11:55-0400 SaO2% (BldA) [Mass fraction] 95 % [facility] 07-13-2023 11:55-0400 Systolic blood pressure 102 mm[Hg] [facility] 04-18-2023 10:32-0500 Body height 160 cm [employer]ipe [employer] Work Phone: [facility] 04-18-2023 10:32-0500 Body mass index (BMI) [Ratio] 33.48 kg/m2 [employer]ipe [employer] Phone: [facility] 04-18-2023 10:32-0500 Body weight 85.73 kg [employer] Phone: [facility] 03-14-2023 15:20-0500 Body height 160.02 cm Aleyda Dennis Other [employer] [facility] [employer] Other 03-14-2023 15:20-0500 Body mass index (BMI) [Ratio] 33.19 kg/m2 Aleyda Dennis Other [employer] Other 03-14-2023 15:20-0500 Body temperature 96.6 [degF] Aleyda Dennis Other [employer] Other 03-14-2023 15:20-0500 Body weight 85 kg Aleyda Dennis Other [employer] Other 03-14-2023 15:20-0500 Diastolic blood pressure 75 mm[Hg] Aleyda Dennis Other [employer] Other 03-14-2023 15:20-0500 Respiratory rate 18 /min Aleyda Dennis Other [employer] Other 03-14-2023 15:20-0500 SaO2% (BldA) [Mass fraction] 96 % Aleyda Dennis Other [employer] Other 03-14-2023 15:20-0500 Systolic blood pressure 123 mm[Hg] Aleyda Dennis Other [employer] Other 03-07-2023 10:28-0500 Body height 160 cm [facility] [employer] 03-07-2023 10:28-0500 Body mass index (BMI) [Ratio] 33.3 kg/m2 [facility] [employer] 03-07-2023 10:28-0500 Body weight 85.28 kg [facility] [employer] 02-21-2023 10:40-0500 Body height 160.02 cm Aleyda Dennis Other [employer] Other 02-21-2023 10:40-0500 Body mass index (BMI) [Ratio] 33.9 kg/m2 Aleyda Dennis Other [employer] Other 02-21-2023 10:40-0500 Body temperature 96.2 [degF] Aleyda Dennis Other [employer] Other 02-21-2023 10:40-0500 Body weight 86.82 kg Aleyda Dennis Other [employer] Other 02-21-2023 10:40-0500 Diastolic blood pressure 71 mm[Hg] Aleyda Dennis Other [employer] Other 02-21-2023 10:40-0500 Respiratory rate 18 /min Aleyda Dennis Other [employer] Other 02-21-2023 10:40-0500 SaO2% (BldA) [Mass fraction] 96 % Aleyda Dennis Other [employer] Other 02-21-2023 10:40-0500 Systolic blood pressure 108 mm[Hg] Aelyda Dennis Other [employer] Other 08-04-2022 12:00-0400 Body height 160.02 cm Aleyda Dennis Other [employer] Other 08-04-2022 12:00-0400 Body mass index (BMI) [Ratio] 33.69 kg/m2 Aleyda Dennis Other [employer] Other 08-04-2022 12:00-0400 Body temperature 96.8 [degF] Aleyda Dennis Other [employer] Other 08-04-2022 12:00-0400 Body weight 86.27 kg Aleyda Dennis Other [employer] Other 08-04-2022 12:00-0400 Diastolic blood pressure 86 mm[Hg] Aleyda Dennis Other [employer] Other 08-04-2022 12:00-0400 Respiratory rate 18 /min Aleyda Dennis Other [employer] Other 08-04-2022 12:00-0400 SaO2% (BldA) [Mass fraction] 95 % Aleyda Dennis Other [employer] Other 08-04-2022 12:00-0400 Systolic blood pressure 136 mm[Hg] Aleyda Dennis Other [employer] Other 01-13-2022 14:00-0500 Body height 160.02 cm Aleyda Dennis Other [employer] Other 01-13-2022 14:00-0500 Body mass index (BMI) [Ratio] 31.99 kg/m2 Aleyda Dennis Other [employer] Other 01-13-2022 14:00-0500 Body temperature 96.3 [degF] Aleyda Dennis Other [employer] Other 01-13-2022 14:00-0500 Body weight 81.92 kg Aleyda Dennis Other [employer] Other 01-13-2022 14:00-0500 Diastolic blood pressure 77 mm[Hg] Aleyda Dennis Other [employer] Other 01-13-2022 14:00-0500 Respiratory rate 18 /min Aleyda Dennis Other [employer] Other 01-13-2022 14:00-0500 SaO2% (BldA) [Mass fraction] 96 % Aleyda Dennis Other [employer] Other 01-13-2022 14:00-0500 Systolic blood pressure 129 mm[Hg] Aleyda Dennis Other [employer] Other 12-10-2020 11:40-0400 Body height 160.02 cm Aleyda Dennis Other [employer] Other 12-10-2020 11:40-0400 Body mass index (BMI) [Ratio] 32.98 kg/m2 Aleyda Dennis Other [employer] Other 12-10-2020 11:40-0400 Body temperature 96 [degF] Aleyad Dennis Other [employer] Other 12-10-2020 11:40-0400 Body weight 84.46 kg Aleyda Dennis Other [employer] Other 12-10-2020 11:40-0400 Diastolic blood pressure 80 mm[Hg] Aleyda Dennis Other [employer] Other 12-10-2020 11:40-0400 Respiratory rate 18 /min Aleyda Dennis Other [employer] Other 12-10-2020 11:40-0400 SaO2% (BldA) [Mass fraction] 96 % Aleyda Dennis Other [employer] Other 12-10-2020 11:40-0400 Systolic blood pressure 139 mm[Hg] Aleyda Dennis Other [employer] Other Encounters Encounter Date Encounter Type Care Provider Facility Start: 01-24-2024 End: 01-24-2024 ambulatory [facility] Start: 01-23-2024 End: 01-23-2024 Refill Misael Perez MD Work Phone: [facility] Comment on above: DDD (degenerative di sc disease), cervical Start: 01-11-2024 End: 01-11-2024 Bamboo flowsheet Chery Vela [employer]ATING PLANT OPERATOR Work Phone: [facility] Start: 01-11-2024 End: 01-11-2024 Bamboo flowsheet Chery Vela [employer]ATING PLANT OPERATOR Work Phone: [facility] Start: 01-11-2024 End: 01-11-2024 Office outpatient visit 15 minutes Chery Vela [employer]ATING PL[employer] OPERATOR Work Phone: [facility] Comment on above: Status post right kn ee replacement; Primary osteoarthritis of right knee Start: 01-11-2024 End: 01-11-2024 ambulatory CHERY VELA Not Available Start: 01-02-2024 End: 01-02-2024 ambulatory MD Misael Perez Work Phone: [facility] Work Phone: Start: 01-02-2024 End: 01-02-2024 Patient encounter procedure MD Misael Perez Work Phone: [facility] Work Phone: Start: 12-26-2023 End: 12-26-2023 Clinisync Result Encounter Generic External Data Provider [facility] Unsolicited Start: 12-26-2023 End: 12-26-2023 Clinisync Result Encounter Generic External Data Provider [facility] External [facility] Unsolicited Start: 12-26-2023 Non-patient / Non-visit MD Natalie Perez Work Phone: [facility] Work Phone: Start: 12-04-2023 End: 12-04-2023 ambulatory MISAEL PEREZ Not Available Start: 11-22-2023 End: 11-22-2023 ambulatory Misael Perez MD Work Phone: [facility] Work Phone: Start: 11-22-2023 End: 11-22-2023 Departed Referred Misael Perez MD Work Phone: [facility] Work Phone: Start: 10-30-2023 End: 10-30-2023 Patient encounter procedure MD Misael Perez Work Phone: [facility] Work Phone: Start: 10-30-2023 End: 10-30-2023 ambulatory MD Misael Perez Work Phone: [facility] Work Phone: Start: 10-11-2023 End: 10-11-2023 ambulatory CHERY VELA Not Available Start: 10-10-2023 End: 10-10-2023 ambulatory MD Misael Perez Work Phone: [facility] Work Phone: Start: 10-10-2023 End: 10-10-2023 Patient encounter procedure MD Misael Perez Work Phone: [facility] Gastro[facility]ology Work Phone: Start: 09-25-2023 End: 09-25-2023 ambulatory MD Misael Perez Work Phone: [facility] Work Phone: Start: 09-25-2023 End: 09-25-2023 Patient encounter procedure MD Misael Perez Work Phone: [facility] Nephrology Work Phone: Start: 09-18-2023 Non-patient / Non-visit MD Natalie Perez Work Phone[facility] Work Phone: Start: 09-18-2023 End: 09-18-2023 ambulatory [facility] Start: 08-31-2023 End: 08-31-2023 ambulatory JL PEPE Not Available Start: 08-24-2023 End: 08-24-2023 ambulatory YULY VALDERRAMA Not Available Start: 08-24-2023 End: 08-24-2023 ambulatory FELIPE Acuna LUL Not Available Start: 08-22-2023 End: 08-22-2023 ambulatory MISAEL PEREZ Not Available Start: 08-22-2023 End: 08-22-2023 ambulatory JL PEPE Not Available Start: 08-21-2023 End: 08-21-2023 ambulatory MD Misael Perez Work Phone: [facility] Work Phone: Start: 08-21-2023 End: 08-21-2023 Patient encounter procedure MD Misael Perez Work Phone: [facility] Work Phone: Start: 08-17-2023 End: 08-17-2023 ambulatory JL PEPE Not Available Start: 08-15-2023 End: 08-15-2023 Non-patient / Non-visit MD Misael ePrez Work Phone: [facility] Work Phone: Start: 08-14-2023 End: 08-15-2023 ambulatory Imad Asaad Facility:[facility] Start: 08-14-2023 End: 08-15-2023 Evaluation and management of inpatient MD Misael Perez Work Phone: [facility] [place] [facility] Work Phone: Start: 08-14-2023 End: 08-15-2023 observation encounter MD Misael Perez Work Phone: [facility] Work Phone: Start: 08-14-2023 Non-patient / Non-visit MD Natalie Perez Work Phone: [facility] Work Phone: Start: 08-11-2023 End: 08-11-2023 ambulatory JL PEPE Not Available Start: 08-09-2023 End: 08-09-2023 ambulatory BELEN T CELINA Not Available Start: 07-27-2023 End: 07-27-2023 ambulatory [facility] Not Available Start: 07-27-2023 End: 07-27-2023 ambulatory SHAIKH LYNN Not Available Start: 07-21-2023 End: 07-21-2023 Evaluation and management of inpatient HERMAN Luis [facility] Start: 07-19-2023 End: 07-20-[address] [facility] Start: 07-18-2023 End: 07-18-2023 Patient encounter procedure MD Misael Perez Work Phone: [facility] Work Phone: Start: 07-13-2023 End: 07-13-2023 ambulatory [facility] Work Phone: Start: 07-13-2023 End: 07-13-2023 Patient encounter procedure [facility] [place] Work Phone: Start: 07-11-2023 End: 07-11-[address] [facility] Start: 07-06-2023 Non-patient / Non-visit [facility] Work Phone: Start: 06-30-2023 End: 06-30-2023 ambulatory MISAEL PEREZ Not Available Start: 06-22-2023 End: 06-22-[address] [facility] Start: 06-22-2023 Encounter for other preprocedural examination [facility] Start: 06-22-2023 End: 06-22-2023 ambulatory [facility] Not Available Start: 06-06-2023 End: 12-04-2023 Preprocedural examination done Generic Provider [facility] Start: 06-06-2023 End: 06-06-2023 ambulatory MISAEL PEREZ Not Available Start: 05-02-2023 End: 05-02-2023 ambulatory YULY VALDERRAMA Not Available Start: 04-19-2023 External Result Encounter Misael Perez MD Work Phone: [facility] Unsolicited Start: 04-19-2023 External Result Encounter Misael Perez MD Work Phone: [facility] Unsolicited Start: 04-19-2023 End: 04-19-2023 ambulatory MISAEL PEREZ [facility] Start: 04-18-2023 Telephone encounter Misael whitlock MD Work Phone: [facility] Start: 04-18-2023 End: 04-18-2023 Follow-up encounter Felipe Schaefer DO Work Phone: [facility] Comment on above: Chronic pain [...] Available Start: 04-10-2023 Bamboo flowsheet Valery wilburn TREATING PLANT OPERATOR Work Phone: [facility] Start: 04-10-2023 Bamboo flowsheet Valery wilburn TREATING PLANT OPERATOR Work Phone: [facility] Start: 04-10-2023 End: 04-10-2023 Office outpatient visit 15 minutes Valery Garcia [employer]REATING PLANT OPERATOR Work Phone: [facility] Comment on above: Chronic pain of righ t knee (Primary Dx); Arthritis of right knee; Internal derangement of right knee Start: 04-10-2023 End: 04-10-2023 ambulatory VALERY B APLING Not Available Start: 03-14-2023 End: 03-14-2023 ambulatory Aleyda Dennis Other [employer] Other Start: 03-14-2023 Office outpatient vi sit 15 minutes Aleyda Dennis [facility] Start: 03-13-2023 End: 03-13-2023 ambulatory Aleyda Dennis Other [employer] Other Start: 03-13-2023 Telephone encounter Aleyda Dennis [facility] Start: 03-08-2023 End: 03-09-2023 Evaluation and management of inpatient [facility] Start: 03-07-2023 End: 03-07-2023 ambulatory h Pat Phone Call Provider 1 [facility] - Pre Ad[facility] Start: 02-22-2023 End: 02-22-2023 ambulatory VALERY B APLING Not Available Start: 02-21-2023 (INJECTION) INJECTION A[facility]da Dennis [facility] Start: 02-21-2023 End: 02-21-2023 ambulatory Aleyda Dennis Other [employer] Other Start: 02-20-2023 End: 02-20-2023 ambulatory Aleyda Dennis Other [employer] Other Start: 02-20-2023 Telephone encounter Aleyda Dennis [facility] Start: 11-23-2022 End: 11-23-2022 ambulatory Aleyda Dennis Other [employer] Other Start: 11-23-2022 Telephone encounter Aleyda Dennis [facility] Start: 10-25-2022 End: 10-25-2022 ambulatory Aleyda Dennis Other [employer] Other Start: 10-25-2022 Telephone encounter Aleyda Dennis [facility] Start: 09-12-2022 End: 09-12-2022 ambulatory Aleyda Dennis Other [employer] Other Start: 09-12-2022 Telephone encounter Aleyda Dennis [facility] Start: 08-05-2022 End: 08-05-2022 ambulatory Aleyda Dennis Other [employer] Other Start: 08-05-2022 Telephone encounter Aleyda Dennis [facility] Start: 08-04-2022 End: 08-04-2022 ambulatory Aleyda Dennis Other [employer] Other Start: 08-04-2022 Office outpatient vi sit 25 minutes Aleyda Dennis [facility] [place] Start: 04-25-2022 End: 04-26-[address] MISAEL PEREZ Facility:[facility] Start: 03-15-2022 End: 03-16-2022 ambulatory ALEYDA DENNIS Facility:[facility] Start: 03-08-2022 End: 03-08-2022 ambulatory Aziz Bakhous Other [employer] Other Start: 03-08-2022 Telephone encounter Aziz Bakhous [facility] Start: 01-31-2022 End: 02-01-[address] MISAEL PEREZ Facility:[facility] Start: 01-24-2022 End: 01-24-2022 ambulatory Aziz Bakhous Other [employer] Other Start: 01-24-2022 Telephone encounter Aziz Bakhous [facility] Start: 01-19-2022 End: 01-20-[address] MISAEL PEREZ Facility:[facility] Start: 01-13-2022 End: 01-13-2022 ambulatory Aleyda Dennis Other [employer] Other Start: 01-13-2022 Office outpatient vi sit 25 minutes Aleyda Dennis [facility] [place] Start: 01-03-2022 End: 01-04-2022 ambulatory ALEYDA DENNIS Facility:[facility] Start: 10-26-2021 End: 10-27-[address] MISAEL PEREZ Facility:[facility] Start: 09-07-2021 End: 09-07-2021 ambulatory Aleyda Dennis Other [employer] Other Start: 09-07-2021 Telephone encounter Aleyda Dennis [facility] [place] Start: 06-07-2021 End: 06-07-2021 ambulatory Azamanda Coles Other [employer] Other Start: 06-07-2021 Telephone encounter Azamanda Coles [facility] Start: 06-01-2021 End: 06-02-[address] MISAEL PEREZ Facility:[facility] Start: 03-09-2021 End: 03-09-2021 ambulatory Maxi Norton Other [employer] Other Start: 03-09-2021 Telephone encounter Maxi Norton [facility] Start: 01-27-2021 End: 01-27-2021 ambulatory Maxi Norton Other [employer] Other Start: 01-27-2021 Telephone encounter Essbrandon Ramosashi [facility] Start: 12-10-2020 Office outpatient vi sit 25 minutes Aleyda Dennis [facility] [place] Start: 10-26-2017 End: 10-27-2017 Patient encounter DEFAULT PHYSICIAN Facility:[facility] Start: 10-16-2017 End: 10-17-2017 Patient encounter DEFAULT PHYSICIAN Facility:[facility] Procedures Date Procedure Procedure Detail Performing Clinician Start: 01-11-2024 Radiologic examination knee 1/2 views Chery Vela NP Work Phone: Start: 12-26-2023 [facility] CBC WITH PLATELET NO DIFFERENTIAL Generic External Data Provider Start: 10-30-2023 Capsule endoscopy MD Misael Perez Work Phone: Start: 08-15-2023 Esophagogastroduodenoscopy MD Misael whitlock Work Phone: Start: 08-14-2023 Antibody screen Imad Asaad Comment on above: Order Comment: Transfuse now? Y Number of units to transfuse now? 1 Result Comment: PERF ORMED BY: [facility] [address] [place] [address] PATHOLOGIST ORGANIC SEARCH LEAD LATONIA BRAND M.D. Start: 08-14-2023 Screening for [...] 03-08-2033 Screening for malignant neoplasm of colon [facility] Start: 07-11-2024 End: 07-11-2024 Patient encounter procedure 07/11/2024 10:30 AM EDT Office Visit [facility] [address] [address] Chery Vela, TREATING PLANT OPERATOR [address] [place], [place] [id number] [facility] Start: 06-03-2024 End: 06-03-2024 Patient encounter procedure 06/03/2024 10:00 AM EDT Office Visit [facility] [address] [place] [id number] Misael Perez MD [address] [place] [id number] [facility] Start: 04-19-2024 Urine screening for protein Diabetes: Urine Protein Screening [facility] Start: 03-08-2024 Adult BMI Screening Adult BMI Screening [facility] Start: 03-08-2024 Tobacco Screening Tobacco Screening [facility] Start: 02-29-2024 Depression Screening Depression Screening [facility] Start: 02-29-2024 Fall Risk Screening Fall Risk Screening [facility] Start: 01-11-2024 End: 01-11-[address] [facility] Comment on above: Status post right knee replacement; Primary osteoarthritis of right knee Start: 12-22-2023 Hemoglobin A1c measurement Diabetes: Hemoglobin A1C [facility] Start: 11-05-2023 Influenza vaccination Influenza Vaccine (#1) [facility] Start: 10-30-2023 [facility] Start: 08-15-2023 End: 08-15-2023 [facility] Start: 08-14-2023 Referral to leadership development consultant [facility] Start: 08-14-2023 Referral to commission associate [facility] Start: 08-14-2023 Hospital admission [facility] Start: 08-14-2023 [facility] Start: 08-14-2023 [facility] Start: 04-18-2023 End: 04-18-2024 25-hydroxyvitamin D3 [Mass/volume] in Serum or Plasma Vitamin D 25 hydroxy Lab Routine Vitamin D deficiency Expected: 04/18/2023 (Approximate), Expires: 04/18/2024 [facility] Comment on above: Expected: 04/18/2023 (Approximate), Expi res: 04/18/2024 Start: 04-18-2023 End: 04-18-2024 Albumin, urine, random Albumin, urine, random Lab Routine Type 2 diabetes mellitus with hyperglycemia, without long-term current use of insulin ([facility]) Expected: 04/18/2023 (Approximate), Expires: 04/18/2024 [facility] Comment on above: Expected: 04/18/2023 (Approximate), Expi res: 04/18/2024 Start: 04-18-2023 End: 02-13-2025 Basic metabolic 1998 panel - Serum or Plasma Basic metabolic panel Lab Routine Encounter for long-term current use of medication Expected: 04/18/2023 (Approximate), Expires: 04/18/2024 [facility] [facility] Comment on above: Expected: 04/18/2023 (Approximate), Expi res: 04/18/2024 Start: 04-18-2023 End: 04-18-2024 CBC W Auto Differential panel - Blood CBC and differential Lab Routine Encounter for long-term current use of medication Expected: 04/18/2023 (Approximate), Expires: 04/18/2024 [facility] Comment on above: Expected: 04/18/2023 (Approximate), Expi res: 04/18/2024 Start: 04-18-2023 End: 04-18-2024 Hemoglobin A1c measurement Hemoglobin A1c Lab Routine Type 2 diabetes mellitus with hyperglycemia, without long-term current use of insulin (CMS/HCC) Expected: 04/18/2023 (Approximate), Expires: 04/18/2024 [facility] Work Phone: Comment on above: Expected: 04/18/2023 (Approximate), Expi res: 04/18/2024 Start: 04-18-2023 End: 04-18-2024 Hepatic function 2000 panel - Serum or Plasma Hepatic function panel Lab Routine Encounter for long-term current use of medication Expected: 04/18/2023 (Approximate), Expires: 04/18/2024 [facility] Comment on above: Expected: 04/18/2023 (Approximate), Expi res: 04/18/2024 Start: 04-18-2023 End: 04-18-2024 Lipid 1996 panel - Serum or Plasma Lipid panel Lab Routine Dyslipidemia (CMS/HCC) Expected: 04/18/2023 (Approximate), Expires: 04/18/2024 [facility] Comment on above: Expected: 04/18/2023 (Approximate), Expi res: 04/18/2024 Start: 04-18-2023 End: 04-18-2024 Thyrotropin [Units/volume] in Serum or Plasma TSH Lab Routine Obesity (BMI 30-39.9) Expected: 04/18/2023 (Approximate), Expires: 04/18/2024 [facility] Comment on above: Expected: 04/18/2023 (Approximate), Expi res: 04/18/2024 Start: 04-18-2023 End: 04-18-2023 Patient encounter procedure 04/18/2023 10:30 AM EST Office Visit [facility] [address] [place] [address] Felipe Schaefer DO [address] [place] [address] [facility] Start: 04-10-2023 End: 04-10-2024 MR Knee - right WO contrast MR knee right wo IV contrast Imaging Routine Internal derangement of right knee Expected: 04/10/2023 (Approximate), Expires: 04/10/2024 [facility] Work Phone: Comment on above: Expected: 04/10/2023 (Approximate), Expi res: 04/10/2024 Start: 04-10-2023 End: 04-10-2023 Patient encounter procedure 04/10/2023 9:30 AM EST Office Visit [facility] [address] [place] [address] Valery Garcia NP [address] [place] [address] Chronic pain of right knee (Primary Dx); Arthritis of right knee [facility] Comment on above: Chronic pain of right knee (Primary Dx); Arthritis of right knee Start: 09-25-2018 Medicare Annual Wellness (AWV) Medicare Annual Wellness (AWV) [facility] Start: 09-25-2018 Medicare Annual Wellness Visit Medicare Annual Wellness Visit [facility] Start: 11-28-1966 DTaP,Tdap and Td Vaccines (1 - Tdap) DTaP,Tdap and Td Vaccines (1 - Tdap) [facility] Start: 11-28-1966 Urine screening for protein Diabetes: Urine Protein Screening [facility] Start: 11-28-1965 Adult BMI Follow Up Plan Adult BMI Follow Up Plan [facility] Start: 11-28-1957 Glaucoma screening Diabetes: Retinopathy Screening [facility] Start: 1945 Hemoglobin A1c measurement Diabetes: Hemoglobin A1C [facility] Start: 1945 Screening for malignant neoplasm of colon [facility] Colonoscopy flx dx w /collj spec when pfrmd COLONOSCOPY DIAGNOSTIC / SCREENING Iron deficiency anemia, unspecified iron deficiency anemia type [facility] Patient Education Gastritis (DC) Know your Meds [facility] Work Phone: Patient referral [facility] Work Phone: Renal function 2000 panel - Serum or Plasma [facility] Renal function 1999 panel - Serum or Plasma [facility] Renal function 1999 panel - Serum or Plasma [facility] Renal function 1999 panel - Serum or Plasma [facility] Renal function 1999 panel - Serum or Plasma [facility] Immunizations Immunization Date Immunization Notes Care Provider Fa [facility] 12-08-2022 ABRYSVO - Respirator y syncytial virus (RSV), vaccine, bivalent, protein subunit RSV prefusion F, diluent reconstituted, 0.5 mL, PF Felipe Schaefer DO Work Phone: [facility] 11-24-2022 Influenza, High-dose Seasonal, Quadrivalent, Preservative Free Felipe Schaefer DO Work Phone: [facility] 11-24-2022 influenza virus vaccine, unspecified formulation Generic Provider [facility] 07-04-2022 hepatitis B vaccine, adult dosage Felipe Schaefer DO Work Phone: [facility] 02-04-2022 hepatitis B vaccine, adult dosage Felipe Schaefer DO Work Phone: [facility] 01-04-2022 hepatitis B vaccine, adult dosage Felipe Schaefer DO Work Phone: [facility] 11-28-2021 Influenza, Seasonal, Quadrivalent, Adjuvanted Felipe Schaefer DO Work Phone: [facility] 11-22-2021 zoster vaccine recombinant Felipe Schaefer DO Work Phone: [facility] 08-30-2021 zoster vaccine recombinant Felipe Schaefer DO Work Phone: [facility] 02-02-2021 Moderna SARS-CoV-2 Vaccination Felipe Schaefer DO Work Phone: [facility] 06-05-2020 COVID-19, mRNA, LNP- S, PF, 100mcg/0.5mL Dose P[facility] 1 [facility] 05-08-2020 COVID-19, mRNA, LNP- S, PF, 100mcg/0.5mL Dose Pmh 1 [facility] 12-31-2018 influenza, high dose seasonal, preservative-free Felipe Schaefer DO Work Phone: [facility] 12-21-2017 influenza, high dose seasonal, preservative-free Felipe Schaefer DO Work Phone: [facility] 01-19-2017 influenza, high dose seasonal, preservative-free Felipe Schaefer DO Work Phone: [facility] 12-27-2016 influenza, injectabl e, quadrivalent, preservative free Felipe Schaefer DO Work Phone: [facility] 12-14-2016 pneumococcal polysaccharide vaccine, 23 valent Felipe Schaefer DO Work Phone: [facility] 10-06-2016 pneumococcal conjuga te vaccine, 13 valent Felipe Schaefer DO Work Phone: [facility] 01-26-2015 influenza, high dose seasonal, preservative-free Felipe Schaefer DO Work Phone: [facility] 03-15-2012 influenza virus vaccine, whole virus Felipe Schaefer DO Work Phone: [facility] Payers Date Payer Category Payer Self-pay [id number] 2021 Private Health Insurance [employer] Member Subscriber Plan / Payer (Effective 2021-Present) Name: Malgorzata Reyes Relation to Subscriber: Self Name: Malgorzata Reyes Payer ID: Not on file Type: Not on file Address: [place] [id number] 2018 Unknown 2012 Medicare [id number]. [id number] 1959 Medicare [id number] 2.16.840.1.857728.19 1959 Unknown [id number] 2.16840.1.213663.19 1947 Unknown [id number] 2.16.840.1.180775.3.579.2. 593 1947 Unknown [id number] 2.16.840.1.554791.3.579.2. 593 1947 Unknown [id number] 2.16.840.1.621067.3.579.2. 593 1947 Unknown [id number] 2.16.840.1.559697.3.579.2. 593 1947 Unknown [id number] 2.16.840.1.811994.3.579.2. 593 1947 Unknown [id number] 2.16.840.1.835325.3.579.2. 593 1947 Unknown [id number] 2.16.840.1.991594.3.579.2. 593 1947 Unknown [id number] 2.16.840.1.339425.3.579.2. 1286 1947 Unknown [id number] 2.16.840.1.868106.3.579.2. 1286 1947 Unknown [id number] 2.16.840.1.545985.3.579.2. 1286 1947 Unknown [id number] 2.16.840.1.226742.3.579.2. 1285 1947 Unknown [id number] 2.16.840.1.852620.3.579.2. 1285 1947 Unknown [id number] 2.16.840.1.384326.3.579.2. 128 1947 Unknown [id number] 2.16.840.1.478789.3.579.2. 1285 1947 Unknown [id number] 2.16.840.1.418122.3.579.2. 1285 1947 Unknown [id number] 2.16.840.1.711925.3.579.2. 1285 1947 Unknown [id number] 2.16.840.1.725668.3.579.2. 1285 1947 Unknown [id number] 2.16.840.1.236115.3.579.2. 1285 1947 Unknown [id number] 2.16.840.1.027523.3.579.2. 1285 1947 Unknown [id number] 2.16.840.1.301087.3.579.2. 1285 1947 Unknown [id number] 2.16.840.1.166804.3.579.2. 1258 1947 Unknown [id number] 2.16.840.1.665496.3.579.2. 1258 1947 Unknown [id number] 2.16.840.1.709623.3.579.2. 1258 1947 Unknown [id number] 2.16.840.1.700296.3.579.2. 1258 1947 Unknown [id number] 2.16.840.1.237458.3.579.2. 125 1947 Unknown [id number] 2.16.840.1.461410.3.579.2. 1258 1947 Unknown [id number] 2.16.840.1.816316.3.579.2. 1258 1947 Unknown [id number] 2.16.840.1.629939.3.579.2. 1258 1947 Unknown [id number] 2.16.840.1.959158.3.579.2. 1258 1947 Unknown [id number] 2.16.840.1.597835.3.579.2. 1258 1947 Unknown [id number] 2.16.840.1.470918.3.579.2. 1258 1947 Unknown [id number] 2.16.840.1.646128.3.579.2. 1258 1947 Unknown [id number] 2.16.840.1.064647.3.579.2. 1258 1947 Unknown [id number] 2.16.840.1.948056.3.579.2. 1258 1947 Unknown [id number] 2.16.840.1.110503.3.579.2. 1258 1947 Unknown [id number] 2.16.840.1.518815.3.579.2. 1258 1947 Unknown [id number] 2.16.840.1.787307.3.579.2. 1258 1947 Unknown [id number] 2.16.840.1.528225.3.579.2. 1258 1947 Unknown [id number] 2.16.840.1.814077.3.579.2. 1258 1947 Unknown [id number] 2.16.840.1.525074.3.579.2. 1258 1947 Unknown [id number] 2.16.840.1.595617.3.579.2. 1259 1947 Unknown [id number] 2.16.840.1.794904.3.579.2. 9 1947 Unknown [id number] 2.16.840.1.727998.3.579.2. 1259 1947 Unknown [id number] 2.16.840.1.693490.3.579.2. 9 1947 Unknown [id number] 2.16.840.1.578803.3.579.2. 1259 Medicare Medicare [id number] Unknown [facility] Health Claims [id number] Unknown [id number] 2.16.840.1.516539.3.579.2. 531 Unknown [id number] 2.16.840.1.639122.3.579.2. 531 Unknown [id number] 2.16.840.1.442387.3.579.2. 531 Social History Date Type Detail Facility Unknown if ever smoked [employer] Other Start: 03-08-2023 End: 12-03-2023 Sex Assigned At [employer] Other Start: 02-28-2023 End: 07-27-2023 Tobacco smoking status NHIS Ex-smoker [facility] End: 03-06-2007 History of tobacco use Current smoker [facility] [facility] Start: 02-28-2023 End: 07-27-2023 Tobacco use and exposure Smokeless tobacco non-user [facility] Start: 03-07-2023 Alcohol intake Current drinker of alcohol (finding) [facility] Start: 03-08-2023 End: 12-03-2023 History of Social function [facility] Adolescent depressio n screening assessment 0 [facility] Start: 03-07-2023 Alcohol Comment social [facility] Start: 1945 Sex Assigned At Not on file [facility] End: 03-06-2007 History of tobacco use Cigarette Smoker [facility] Start: 02-22-2023 End: 01-11-2024 Alcohol intake Ex-drinker (finding) [facility] Start: 1945 Sex Assigned At Female [facility] Start: 08-15-2023 Tobacco smoking status NHIS Never smoked tobacco (finding) [facility] History of tobacco use Passive smoker [facility] Do you belong to any clubs or organizations such as muslim groups, unions, fraternal or athletic groups, or school groups? No [facility] Are you now , , , , never or living with a partner? [facility] How often to you hav e a drink containing alcohol? Never [facility] Do you feel stress - tense, restless, nervous, or anxious, or unable to sleep at night because your mind is troubled all the time - these days [OSQ] Only a little [facility] (I/We) worried wheth er (my/our) food would run out before (I/we) got money to buy more. Never true [facility] Start: 01-22-2024 Sex Female (finding) [facility] Medical Equipment Procedure Code Equipment Code Equipment Origin al Text Equipment Identifier Dates Capsule endoscopy, for patency of lumen evaluation Video capsule endoscopy system [id number] FDA Start: 10-30-2023 Goals Date Patient Goal Desired Activity /State Functional Status Date Assessment Result Facility 08-15-2023 Functional status Patient at Baseline [facility] Work Phone: Mental Status Date Assessment Result Facility 08-15-2023 Cognitive function Cognitive Sta tus Patient at Baseline [facility] Work Phone: Clinical Notes 03-06-2019 to 01-24-2024 Chery Vela NP - 01/11/2024 10:30 AM EST Note Date & Type Note Facility 01-24-2024 Note [facility] Subjective Malgorzata Reyes is a 78 y.o. year old female patient being seen to establish care and discuss LAAO. Ref from Dr. Perez. She used to see Dr. Emy Foster back in 2018, then followed with [facility] for a few years. In July during TKA, she was told she had questionable afib during surgery. DOAC was not started due to history of recent GI bleed. Echo was done in July. Patient denies chest pain, SOB, palpitations, and lightheadedness. 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 Benign essential hypertension Cancer (CMS/HCC) Chronic diastolic congestive heart failure (CMS/HCC) Chronic kidney disease, stage 3b (CMS/HCC) DDD (degenerative disc disease), cervical Dyslipidemia Edema of both legs SANTA (generalized anxiety disorder) Gastritis with bleeding H/O neck disorder High cholesterol Hyperkalemia Hyperuricemia Impingement syndrome of right shoulder Acute blood loss anemia Neck pain Nonrheumatic mitral valve regurgitation Obesity (BMI 30-39.9) Occult blood positive stool Paroxysmal atrial fibrillation (CMS/HCC) Polyp of sigmoid colon Arthritis of right knee Proteinuria Renal cell adenocarcinoma (CMS/HCC) S/P cervical spinal fusion S/P TKR (total knee replacement), right Type 2 diabetes mellitus with hyperglycemia, without long-term current use of insulin (CMS/HCC) Varicose veins of bilateral lower extremities with pain Vitamin D deficiency Family History Problem Relation Name Age of Onset Hypertension Brother Social History Tobacco Use Smoking status: Former Types: Cigarettes Smokeless tobacco: Never Substance Use Topics Alcohol use: Not Currently HPI Malgorzata is seen as a new patient, referred from Dr. Perez's office for consideration of left atrial appendage closure. She is a 78-year-old woman who underwent knee surgery in 07/2023. At that time she was informed that she had atrial fibrillation by monitor. Due to GI bleed in August 2023 she refused to start anticoagulation therapy with Eliquis. She needed blood transfusion and iron infusion. She was investigated by endoscopy and pill endoscopy and showed ulcer and AVM and she is being treated with Protonix. She is s/p right nephrectomy in 2003 due to tumor. She has CKD 3b. Today she reports that she has shortness of breath on exertion and lower extremity edema. She denies chest pain, palpitations or irregular heartbeat. No dizziness or lightheadedness or syncope. Review of Systems Cardiovascular: Positive for dyspnea on exertion and leg swelling. Negative for chest pain, irregular heartbeat and palpitations. Objective Visit Vitals BP 148/78 (BP Location: Right arm, Patient Position: Sitting) Pulse 58 Ht 1.549 m (5' 1 ) Wt 82.1 kg (181 lb) SpO2 98% BMI 34.20 kg/m??? Smoking Status Former BSA 1.88 m??? Physical Exam Constitutional: Appearance: She is well-developed. She is not ill-appearing. HENT: Head: Normocephalic and atraumatic. Nose: Nose normal. Eyes: General: No scleral icterus. Pupils: Pupils are equal, round, and reactive to light. Neck: Thyroid: No thyromegaly. Vascular: No JVD. Cardiovascular: Rate and Rhythm: Normal rate and regular rhythm. Pulses: Radial pulses are 2+ on the right side and 2+ on the left side. Heart sounds: Murmur heard. Systolic (LLSB) murmur is present with a grade of 2/6. No friction rub. No gallop. Pulmonary: Effort: Pulmonary effort is normal. No respiratory distress. Breath sounds: Normal breath sounds. No wheezing or rales. Chest: Chest wall: No tenderness. Abdominal: General: Bowel sounds are normal. There is no distension. Palpations: Abdomen is soft. Tenderness: There is no abdominal tenderness. Musculoskeletal: General: No swelling. Cervical back: Neck supple. Right lower le+ Pitting Edema present. Left lower le+ Pitting Edema present. Skin: General: Skin is warm and dry. Neurological: General: No focal deficit present. Mental Status: She is alert and oriented to person, place, and time. Psychiatric: Mood and Affect: Mood normal. Behavior: Behavior is cooperative. Judgment: Judgment normal. Allergies Allergies Allergen Reactions Ketorolac Other, Rash and Unknown Other Reaction(s): Facial Swelling Latex Other, Rash and Unknown Nsaids (Non-Steroidal Anti-Inflammatory Drug) Other, Rash and Swelling Medications Current Outpatient Medications: alendronate (Fosamax) 70 mg tablet, Take 70 mg by mouth every 7 (seven) days., Disp: , Rfl: atorvastatin (Lipitor) 10 mg tablet, Take 10 mg by mouth at bedtime., Disp: , Rfl: cholecalciferol, vitamin D3, 50 mcg (2,000 unit) capsule, 1 capsule., Disp: , Rfl: coenzyme Q-10 100 mg capsule, Take 100 mg by mouth in the morning., Disp: , Rfl: ferrous sulfate 325 (65 Fe) MG tablet (more content not included)... [facility] 01-11-2024 History of Present illness Narrative Images from the original note were not included. Chief Complaint Patient presents with Right Knee - Follow-up HISTORY OF PRESENT ILLNESS: Malgorzata Reyes is an 78 y.o. @ female. RT knee: 5 months 3 weeks s/p RT TKA 07/19/23. Walking well unassisted. Has some pain medial and lateral after sitting for a while and getting up. Denies issues walking. Taking percocet prn if she over does it. Denies N/T, swelling. Denies giving out. Does not wake at HS. Pleased with outcome so far. ALLERGIES: Allergies Allergen Reactions Latex Unknown Ketorolac Rash Other Reaction(s): Facial Swelling Nsaids Swelling and Rash HOME MEDICATIONS: Current Outpatient Medications Medication Instructions alendronate (FOSAMAX) 70 mg, Oral, Every 7 days, Take in the morning with a full glass of water, on an empty stomach, and do not take anything else by mouth or lie down for the next 30 min. atorvastatin (LIPITOR) 10 mg, Oral, Daily cholecalciferol (Vitamin D-3) 50 MCG (1999 UT) capsule 1 capsule, Every 24 hours ferrous sulfate 325 (65 Fe) MG tablet Every 24 hours furosemide (Lasix) 40 MG tablet gabapentin (NEURONTIN) 100 mg, Oral, Every 8 hours lisinopril 5 MG tablet Every 24 hours metoprolol succinate XL (TOPROL-XL) 50 mg, Oral, Daily, Do not crush or chew. pantoprazole (Protonix) 40 MG EC tablet Every 24 hours PHYSICAL EXAM: Right Knee Exam Tenderness The patient is experiencing no tenderness. Range of Motion Extension: -5 Flexion: 120 Tests Varus: negative Valgus: negative Other Scars: present Sensation: normal Pulse: present Swelling: none Vitals: There is no height or weight on file to calculate BMI. IMAGING: XR knee 1 or 2 views right Imaging Result: Standing AP and LAT of right knee showed surgical position and alignment of prosthetic components without evidence of loosening or wear to the femoral, tibial, or patellar components. The alignment appeared to be anatomic. There was no evidence of accelerated or asymmetric wear to the patellar button or tibial tray. There was no evidence of fracture and/or dislocation. Impression: Stable RT total knee replacement. Chery Vela APRN-BILL ASSESSMENT: ICD-10-CM 1. Status post right knee replacement Z96.651 2. Primary osteoarthritis of right knee M17.11 XR knee 1 or 2 views right Procedures PLAN: Patient states that her knee is much better than before surgery. Will have occasional pain medial and lateral if going from sitting for a long time to standing but no other pain. I recommend she continue to do activity as tolerated. I discussed with the patient the general recommendation for the use of prophylactic antibiotics prior to dental work after joint replacement. I advised the patient that the use of prophylactic antibiotics for dental work is a controversial topic. I currently have recommended that prophylactic antibiotics be used postop and I did advise the patient that the guidelines and recommendations may change on this in the future. Follow up in 6 months for RCK. Questions answered in laymen terms at the bedside. The diagnosis, home exercise plan and any ongoing restrictions/ recommendations reviewed. If unable to be reached in office, I recommend evaluation at nearest Emergency Room if any symptoms worsened or new symptoms develop for requiring urgent evaluation. Chery Vela APRN-PRISON OFFICER documented in this encounter [facility] 01-02-2024 Evaluation note Diagnosis Onset Date Resolution Anemia of renal disease acute O ctober 2023 12:58pm Hyperkalemia acute December 12:58pm Hyperuricemia acute December 12:58pm Proteinuria acute January 02, 2024 12:58pm Renal cancer acute December 12:58pm Vitamin D deficiency acute Octo 2023 12:58pm CKD (chronic kidney disease) stage 3, GFR 30-59 ml/min resolved January 01 12:58pm Hypertensive chronic kidney disease with stage 1 through stage 4 chronic ki resolved January 01 12:58pm Type 2 diabetes mellitus with diabetic chronic kidney disease resolved January 01 12:58pm [facility] Work Phone: 1(427) 544-266808-06-2024 Evaluation note* Author Kuldeep Tha [facility] Authored October 10, 2023 1:2 1pm 77-year-old [...] -Will get EGD and colonoscopy report from [facility] -Will arrange for capsule endoscopy. -Decrease pantoprazole to 40 mg daily [facility] Work Phone: 1(940) 469-292506-11-2024 Consult note Author Aleyda Bourgeois [facility] August 15, 2023 10:24am Note Date/Time August 15, 2023 8:48 am [facility] [address] [place] [address] Nephrology Consult Note Signed Patient: Malgorzata Reyes MR#: [id number] : 1945 Acct:[id number] Age/Sex: 77 / F Adm Date: 4 Loc: Room: [address] [place] [address] Type: ADM INO Attending Dr: Meagan Roman MD Copies to: [...] polydipsia Dermatological: denies any itching or rash [facility] Medical History (Updated 08/15/23 @ 09:59 by [...] 10 Mg Tablet) 10 mg PO DAILY [facility] Stop: 08/14/24 08:59 Docusate Sodium (Docusate 100 Mg Capsule) 200 mg PO BID PRN PRN Reason: Constipation Stop: 08/13/24 19:30 Gabapentin (Gabapentin 100 Mg Capsule) 100 mg PO TID [facility] Stop: 08/13/24 21:59 Last Admin: 08/14/23 22:37 Dose: 100 mg Hydralazine HCl (Hydralazine 20 Mg/Ml Vial) 10 mg IV-PUSH Q4H PRN PRN Reason: if SBP > 185 Stop: 08/13/24 19:30 Sodium Chloride (0.9 % Sodium Chloride) 500 mls @ 20 mls/hr IV PROTOCOL PRN PRN Reason: BLOOD TRANSFUSION Stop: 08/15/23 19:31 Metoprolol Succinate (Metoprolol Succinate 50 Mg Tab.Er.24h) 50 mg PO DAILY [facility] Stop: 08/14/24 08:59 Oxycodone/Acetaminophen (Oxycodone/Acetaminophen 5-325 Mg Tablet) 2 tab PO [id number] PRN Reason: pain Last Admin: 08/14/23 22:37 [...] Skin: No rashes , warm to touch STAFF [employer]LECT[employer] OFFICER: Awake,Alert, following simple command Musculoskeletal: No swelling [...] <Electronically signed by Aleyda Bourgeois MD> 08/15/[address] [place] [address] Ctr Work Phone: 1(173) 772-750706-11-2024 Consult note Author Kuldeep Almazan [facility] August 15, 2023 8:33am Note Date/Time August 15, 2023 8:14 am [facility] [address] [place] [address] Gastroenterology Consult Note Signed Patient: Malgorzata Reyes MR#: [id number] : 1945 Acct:[id number] Age/Sex: 77 / F Adm Date: 4 Loc: 3T Room: [address] [place] [address] Type: ADM INOo Attending Dr: Meagan Roman [...] negative unless noted below or in HPI [facility] Medical History (Updated 08/15/23 @ 08:33 by [...] % (Auto) 70.0 Lymph % (Auto) 19.2 Coos % (Auto) 6.8 Eos % (Auto) 3.3 Baso % (Auto) 0.7 Nucleat RBC Rel Count 0.1 Neut # (Auto) 5.4 Lymph # (Auto) 1.5 Coos # (Auto) 0.5 Eos # (Auto) 0.3 [...] Type Blood Type Recheck Antibody Screen Crossmatch ([facility]) 08/14/23 08/14/23 08/14/23 17:55 17:55 17:55 Corrected WBC Uncorrected WBC Count RBC Hgb Hct MCV MCH MCHC RDW Plt Count MPV Neut % (Auto) Lymph % (Auto) Coos % (Auto) Eos % (Auto) Baso % (Auto) Nucleat RBC Rel Count Neut # (Auto) Lymph # (Auto) Coos # (Auto) Eos # (Auto) Baso # [...] Type Blood Type Recheck Antibody Screen Crossmatch ([facility]) 08/14/23 08/14/23 08/15/23 17:55 19:59 06:32 Corrected WBC 4.9 Uncorrected WBC Count 4.9 RBC 2.97 L Hgb 8.8 L Hct 26.1 L MCV 87.6 MCH 29.5 MCHC 33.6 RDW 14.8 Plt Count 273 MPV 8.3 Neut % (Auto) 57.5 Lymph % (Auto) 26.9 Coos % (Auto) 9.7 Eos % (Auto) 5.1 Baso % (Auto) 0.8 Nucleat RBC Rel Count 0.1 Neut # (Auto) 2.8 Lymph # (Auto) 1.3 Coos # (Auto) 0.5 Eos # (Auto) 0.2 [...] Recheck A Negative Antibody Screen Negative Crossmatch ([facility]) See Detail A&P - Gastroenterology Assessment/Plan (1) [...] patient n.p.o. Documented By: Kuldeep Almazan MD 08/15/23807 Signed By: <Electronically signed by Kuldeep Almazan MD> 08/15/23832 [facility] Work Phone: [phone] 448-302406-11-2024 [facility] History and physical note Author Meagan Rmoan [facility] August 14, 2023 7:50pm Note Date/Time August 14, 2023 7:50 pm [facility] [address] [place] [address] Hospitalist H&P Signed Patient: Malgorzata Reyes MR#: [id number] : 1945 Acct:[id number] Age/Sex: 77 / F Adm Date: 4 Loc: ER Room: Type: [facility] ER Attending Dr: Copies to: Liliana Kaba, MD Meagan Street MD~ HPI DATE OF EXAMINATION: 08/14/23 CHIEF COMPLAINT: abn lab work HISTORY OF PRESENT ILLNESS: 77-year old female with a history of iron deficiency anemia, of unclear etiology, history of iron infusions, status post EGD and colonoscopy in [facility], at that time showed some stomach irritation, placed on Protonix, consider due to aspirin use presented with abnormal lab. Patient has been following with commission associate for single kidney, she is status post [...] Previous records in the computer system reviewed [facility] Medical History (Updated 08/14/23 @ 19:38 by [...] % (Auto) 19.2 % (.) 08/14/23 17:55 Coos % (Auto) 6.8 % (.) 08/14/23 17:55 Eos % (Auto) 3.3 % (.) 08/14/23 17:55 Baso % (Auto) 0.7 % (.) 08/14/23 17:55 Nucleat RBC Rel Count 0.1 /100 WBC (0-0.5) 08/14/23 17:55 Neut # (Auto) 5.4 x10E3/uL (1.8-7.7) 08/14/23 17:55 Lymph # (Auto) 1.5 x10E3/uL (1.00-4.8) 08/14/23 17:55 Coos # (Auto) 0.5 x10E3/uL (0.0-0.8) 08/14/23 17:55 [...] signed by Meagan Roman MD> 08/14/23 1950 [facility] Work Phone: [phone]) 648-782202-13-2024 Telephone encounter Note* Telephone Encounter - Misael Perez MD - 04/18/2023 3:32 PM EST Patient due for all labs and in chart. Please print order or send to lab. If print albumin needs printed separately from other labs. MAN [facility] [id number] Miscellaneous Notes* Telephone Encounter - Misael Perez MD - 04/18/2023 3:32 PM EST Patient due for all labs and in chart. Please print order or send to lab. If print albumin needs printed separately from other labs. MAN documented in this encounterBarton County Memorial HospitalIiakyrbzpn10-15-1432 History of Present illness Narrative* Felipe Schaefer, DO - 04/18/2023 10:30 AM EST Images [...] tablet 11 cholecalciferol (Vitamin D-3) 50 MCG (1999 [place]) [...] Past Medical History: Diagnosis Date Anemia Diabetes ([facility]) GERD (gastroesophageal reflux disease) History of kidney cancer RT HTN (hypertension) ([facility]) Kidney disease ALLERGIES: Allergies Allergen Reactions Latex [...] knee dated April 12, 2023 from the [facility]. There is thinning of articular cartilage and [...] right knee as current injury, initial encounter S83.252A 4. Other tear of lateral meniscus of right knee as current injury, initial encounter S83.248A PLAN: I explained the diagnosis and reviewed treatment options including injections vs surgery. I answered all of the patient's questions. Candy Schaefer D.O. documented in this encounterBarton County Memorial [id number] History of Present illness Narrative* Valery Garcia, KYE - 04/10/2023 9:30 AM EST Subjective Patient [...] knee without contrast to be done at [facility] in [place], activities as tolerated, f/u s/p MRI documented in this encounterBarton County Memorial [id number] Evaluation note* Encounter Date Diagnosis Assessment Notes [...] potassium diet and provide information about it. [employer] Other 01-02-2024 Miscellaneous Notes* Perioperative Nursing Note - Nani Braun RN - 03/07/2023 1:00 PM EST Preoperative Education Checklist- General Surgery date: 03/08/23 Surgery time: 1030 Arrival time: 929 1. Bring a photo ID and your insurance card with you the day of surgery. You will check in at the main lobby of the [facility]- registration desk is straight ahead as soon as you walk in. Tell them you are here for surgery. 2. If you have a Living Will/Durable Power of Computer Systems Information Director for Health Care that is not on [...] after you have bathed. 5. NO nail somali/acrylic on at least one finger. If you are having a hand, wrist or foot surgery then all nail somali and artificial/acrylic nails must be removed from [...] please call the Preadmission Testing office at [phone], Mon.-Fri. 7 a.m.-3 p.m. Leave a voicemail [...] days prior to procedure documented [facility] Nurse Note* Perioperative Nursing Note - Nani Braun RN - 03/07/2023 1:00 PM EST Preoperative Education Checklist- General Surgery date: 03/08/23 Surgery time: 1030 Arrival time: 0930 1. Bring a photo ID and your insurance card with you the day of surgery. You will check in at the main lobby of the [facility]- registration desk is straight ahead as soon as you walk in. Tell them you are here for surgery. 2. If you have a Living Will/Durable Power of Computer Systems Information Director for Health Care that is not on [...] after you have bathed. 5. NO nail somali/acrylic on at least one finger. If you are having a hand, wrist or foot surgery then all nail somali and artificial/acrylic nails must be removed from [...] please call the Preadmission Testing office at [phone], Mon.-Fri. 7 a.m.-3 p.m. Leave a voicemail [...] Stop taking 0 days prior to procedure [facility]12-19-2023 Evaluation note* Encounter Date Diagnosis Assessment Notes Treatment Notes Treatment Clinical Notes Feb, Chronic kidney disease, stage 3 unspecified (ICD-10 - N18.30) Feb, Anemia in chronic kidney disease (ICD-10 - D63.1) [employer] Other 09-20-2023 Evaluation note* Encounter Date Diagnosis Assessment Notes Treatment Notes Treatment Clinical Notes Nov, Hypertensive chronic kidney disease with stage 1 through stage 4 chronic kidney disease, or unspecified chronic kidney disease (ICD-10 - I12.9) [employer] Other 08-22-2023 Evaluation note* Encounter Date Diagnosis Assessment Notes Treatment Notes Treatment Clinical Notes Oct, Hypertensive chronic kidney disease with stage 1 through stage 4 chronic kidney disease, or unspecified chronic kidney disease (ICD-10 - I12.9) [employer] Other 07-10-2023 Evaluation note* Encounter Date Diagnosis Assessment Notes Treatment Notes Treatment Clinical Notes Sep, Proteinuria (ICD-10 - R80.9) [employer] Other 06-01-2023 Evaluation note* Encounter Date Diagnosis [...] potassium diet and provide information about it. [employer] Other 01-03-2023 Evaluation note* Encounter Date Diagnosis Assessment Notes Treatment Notes Treatment Clinical Notes Mar, Proteinuria (ICD-10 - R80.9) [employer] Other 11-10-2022 Evaluation note* Encounter Date Diagnosis [...] No need for any medication for now. [employer] Other 07-05-2022 Evaluation note* Encounter Date Diagnosis Assessment Notes Treatment Notes Treatment Clinical Notes Sep, Hypertensive chronic kidney disease with stage 1 through stage 4 chronic kidney disease, or unspecified chronic kidney disease (ICD-10 - I12.9) [employer] Other 04-04-2022 Evaluation note* Encounter Date Diagnosis Assessment Notes Treatment Notes Treatment Clinical Notes Jun, Proteinuria (ICD-10 - R80.9) [employer] Other 01-04-2022 Evaluation note* Encounter Date Diagnosis Assessment Notes Treatment Notes Treatment Clinical Notes Mar, Hypertensive chronic kidney disease with stage 1 through stage 4 chronic kidney disease, or unspecified chronic kidney disease (ICD-10 - I12.9) [employer] Other 11-24-2021 Evaluation note* Encounter Date Diagnosis Assessment Notes Treatment Notes Treatment Clinical Notes Jan, Hypertensive chronic kidney disease with stage 1 through stage 4 chronic kidney disease, or unspecified chronic kidney disease (ICD-10 - I12.9) [employer] Other 10-07-2021 Evaluation note* Encounter Date Diagnosis [...] (ICD-10 - E55.9) Continue oral Vit D [facility] [employer] Other 01-01-2020 Evaluation note* Author Kuldeep [facility] Authored October 10, 2023 1:2 1pm 77-year-old [...] -Will get EGD and colonoscopy report from [facility] -Will arrange for capsule endoscopy. -Decrease pantoprazole to 40 mg daily [facility] Work Phone: Evaluation noteNo InformationNortWarren General Hospital [employer] Other Evaluation note* Diagnosis Chronic pain of right knee- Primary Arthritis of right knee Internal derangement of right knee documented in this encounter [facility] HealthcareEvaluation note* Diagnosis Chronic pain of right knee- Primary Arthritis of right knee Complex tear of medial meniscus of right knee as current injury, initial encounter Other tear of lateral meniscus of right knee as current injury, initial encounter documented in this encounter [facility] HealthcareEvaluation note* Diagnosis Dyslipidemia (CMS/[facility])- Primary Other and unspecified hyperlipidemia Vitamin D deficiency Type 2 diabetes mellitus with hyperglycemia, without long-term current use of insulin ([facility]) Encounter for long-term current use of medication Obesity (BMI 30-39.9) documented in this encounter [facility] HealthcareEvaluation note* Diagnosis Onset Date Resolution Status Anemia of renal disease acut e CKD (chronic kidney disease) stage 3, GFR 30-59 ml/min acute Hyperkalemia acute [id number] acute Hyperuricemia acute Proteinuria acute Renal cancer acute Type 2 diabetes mellitus wit h diabetic chronic kidney disease acute Vitamin D deficiency acute [facility] Work Phone: Evaluation note* Diagnosis Onset Date Resolution Status Anemia of renal disease acut e CKD (chronic kidney disease) stage 3, GFR 30-59 ml/min acute Hyperkalemia acute [id number] acute Hyperuricemia acute Proteinuria acute Renal cancer acute Type 2 diabetes mellitus wit h diabetic chronic kidney disease acute Vitamin D deficiency acute Anemia of renal disease acut e CKD (chronic kidney disease) stage 3, GFR 30-59 ml/min acute [id number] acute Type 2 diabetes mellitus wit h diabetic chronic kidney disease acute Acute blood loss anemia acut e Anemia acute CKD (chronic kidney disease) stage 3, GFR 30-59 ml/min acute Gastritis with bleeding acut e [id number] acute Occult blood positive stool acute Type 2 diabetes mellitus wit h diabetic chronic kidney disease acute [facility] Work Phone: Evaluation note* Diagnosis Onset Date Resolution Status Anemia of renal disease acut e CKD (chronic kidney disease) stage 3, GFR 30-59 ml/min acute Hyperkalemia acute [id number] acute Hyperuricemia acute Proteinuria acute Renal cancer acute Type 2 diabetes mellitus wit h diabetic chronic kidney disease acute Vitamin D deficiency acute Anemia of renal disease acut e CKD (chronic kidney disease) stage 3, GFR 30-59 ml/min acute [id number] acute Type 2 diabetes mellitus wit h diabetic chronic kidney disease acute Acute blood loss anemia acut e Anemia acute CKD (chronic kidney disease) stage 3, GFR 30-59 ml/min acute Gastritis with bleeding acut e [id number] acute Occult blood positive stool acute Type 2 diabetes mellitus wit h diabetic chronic kidney disease acute Anemia of renal disease acut e CKD (chronic kidney disease) stage 3, GFR 30-59 ml/min acute Hyperkalemia acute [id number] acute Hyperuricemia acute Proteinuria acute Renal cancer acute Type 2 diabetes mellitus wit h diabetic chronic kidney disease acute Vitamin D deficiency acute [facility] Work Phone: Evaluation note* Diagnosis Onset Date Resolution Status Anemia of renal disease acut e CKD (chronic kidney disease) stage 3, GFR 30-59 ml/min acute Hyperkalemia acute [id number] acute Hyperuricemia acute Proteinuria acute Renal cancer acute Type 2 diabetes mellitus wit h diabetic chronic kidney disease acute Vitamin D deficiency acute Anemia of renal disease acut e CKD (chronic kidney disease) stage 3, GFR 30-59 ml/min acute [id number] acute Type 2 diabetes mellitus wit h diabetic chronic kidney disease acute Anemia acute Kidney disease acute Occult blood positive stool acute [facility] Work Phone: Evaluation note* Diagnosis Onset Date Resolution Status Anemia of renal disease acut e Hyperkalemia acute Hyperuricemia acute Proteinuria acute Renal cancer acute Vitamin D deficiency acute CKD (chronic kidney disease) stage 3, GFR 30-59 ml/min resolved [id number] resolved Type 2 diabetes mellitus wit h diabetic chronic kidney disease resolved Anemia of renal disease acut e CKD (chronic kidney disease) stage 3, GFR 30-59 ml/min resolved [id number] resolved Type 2 diabetes mellitus wit h diabetic chronic kidney disease resolved Acute blood loss anemia reso lved Anemia resolved CKD (chronic kidney disease) stage 3, GFR 30-59 ml/min resolved Gastritis with bleeding reso lved [id number] resolved Occult blood positive stool resolved Type 2 diabetes mellitus wit h diabetic chronic kidney disease resolved Anemia of renal disease acut e Hyperkalemia acute Hyperuricemia acute Proteinuria acute Renal cancer acute Vitamin D deficiency acute CKD (chronic kidney disease) stage 3, GFR 30-59 ml/min resolved [id number] resolved Type 2 diabetes mellitus wit h diabetic chronic kidney disease resolved Anemia of renal disease acut e Hyperkalemia acute Hyperuricemia acute Proteinuria acute Renal cancer acute Vitamin D deficiency acute CKD (chronic kidney disease) stage 3, GFR 30-59 ml/min resolved [id number] resolved Type 2 diabetes mellitus wit h diabetic chronic kidney disease resolved [facility] Work Phone: Evaluation note* Diagnosis Type 2 diabetes mellitus with hyperglycemia, without long-term current use of insulin (CMS/HCC)- Primary Benign essential hypertension (CMS/HCC) Essential hypertension, benign Pre-op evaluation Primary osteoarthritis of right knee DDD (degenerative disc disease), cervical Degeneration of cervical intervertebral disc Edema of both legs Edema 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, without long-term current use of insulin (HCC) (CMS/HCC) Stage 3b chronic kidney disease (CKD) (CMS/HCC) Dyslipidemia (CMS/HCC) Other and unspecified hyperlipidemia Pre-op evaluation- Primary Primary osteoarthritis of right knee Type 2 diabetes mellitus with hyperglycemia, without long-term current use of insulin (CMS/HCC) Benign essential hypertension (CMS/HCC) Essential hypertension, benign Paroxysmal atrial fibrillation (CMS/HCC)- Primary Atrial fibrillation Benign essential hypertension (CMS/HCC) Essential hypertension, benign Stage 3b chronic kidney disease (CKD) (CMS/HCC) Anemia due to stage 3b chronic kidney disease (HCC) (CMS/HCC) Chronic diastolic congestive heart failure (CMS/HCC) S/P TKR (total knee replacement), right Hospital discharge follow-up Other follow-up examination Atrophic 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 hemorrhage- Primary Iron deficiency anemia due to chronic blood loss Iron 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 (chronic) Anemia due to stage 3b chronic kidney disease (HCC) (CMS/HCC) Benign essential hypertension (CMS/HCC) Essential hypertension, benign Type 2 diabetes mellitus with hyperglycemia, without long-term current use of insulin (CMS/HCC) Paresthesia of both feet Stage 3b chronic kidney disease (CKD) (CMS/HCC) Type 2 diabetes mellitus with stage 3b chronic kidney disease, without long-term current use of insulin (HCC) (CMS/HCC) Type 2 diabetes mellitus with hyperglycemia, without long-term current use of insulin (CMS/HCC)- Primary Benign essential hypertension (CMS/HCC) Essential hypertension, benign DDD (degenerative disc disease), cervical Degeneration of cervical intervertebral disc Paroxysmal atrial fibrillation (CMS/HCC) Atrial fibrillation Chronic diastolic congestive heart failure (CMS/HCC) Chronic superficial 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 Renal cell carcinoma, unspecified laterality (CMS/HCC) Status post right knee replacement Primary osteoarthritis of right knee documented in this encounter [facility] HealthcareEvaluation note* Diagnosis Type 2 diabetes mellitus with hyperglycemia, without long-term current use of insulin (CMS/HCC)- Primary Benign essential hypertension (CMS/HCC) Essential hypertension, benign Pre-op evaluation Primary osteoarthritis of right knee DDD (degenerative disc disease), cervical Degeneration of cervical intervertebral disc Edema of both legs Edema 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, without long-term current use of insulin (HCC) (CMS/HCC) Stage 3b chronic kidney disease (CKD) (CMS/HCC) Dyslipidemia (CMS/HCC) Other and unspecified hyperlipidemia Pre-op evaluation- Primary Primary osteoarthritis of right knee Type 2 diabetes mellitus with hyperglycemia, without long-term current use of insulin (CMS/HCC) Benign essential hypertension (CMS/HCC) Essential hypertension, benign Paroxysmal atrial fibrillation (CMS/HCC)- Primary Atrial fibrillation Benign essential hypertension (CMS/HCC) Essential hypertension, benign Stage 3b chronic kidney disease (CKD) (CMS/HCC) Anemia due to stage 3b chronic kidney disease (HCC) (CMS/HCC) Chronic diastolic congestive heart failure (CMS/HCC) S/P TKR (total knee replacement), right Hospital discharge follow-up Other follow-up examination Atrophic 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 hemorrhage- Primary Iron deficiency anemia due to chronic blood loss Iron 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 (chronic) Anemia due to stage 3b chronic kidney disease (HCC) (CMS/HCC) Benign essential hypertension (CMS/HCC) Essential hypertension, benign Type 2 diabetes mellitus with hyperglycemia, without long-term current use of insulin (CMS/HCC) Paresthesia of both feet Stage 3b chronic kidney disease (CKD) (CMS/HCC) Type 2 diabetes mellitus with stage 3b chronic kidney disease, without long-term current use of insulin (HCC) (CMS/HCC) Type 2 diabetes mellitus with hyperglycemia, without long-term current use of insulin (CMS/HCC)- Primary Benign essential hypertension (CMS/HCC) Essential hypertension, benign DDD (degenerative disc disease), cervical Degeneration of cervical intervertebral disc Paroxysmal atrial fibrillation (CMS/HCC) Atrial fibrillation Chronic diastolic congestive heart failure (CMS/HCC) Chronic superficial 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 Renal cell carcinoma, unspecified laterality (CMS/HCC) DDD (degenerative disc disease), cervical Degeneration of cervical intervertebral disc documented in this encounter [facility] HealthcareHistory and physical note Author Meagan Roman [facility] August 14, 2023 7:50pm Note Date/Time August 14, 2023 7:50 pm [facility] [address] [place] [address] Hospitalist H&P Signed Patient: Malgorzata Reyes MR#: [id number] : 1945 Acct:[id number] Age/Sex: 77 / F Adm Date: 4 Loc: ER Room: Type: [facility] ER Attending Dr: Copies to: DO Misael Robins MD Ruta Semaskiene, MD~ HPI DATE OF EXAMINATION: 08/14/23 CHIEF COMPLAINT: abn lab work HISTORY OF PRESENT ILLNESS: 77-year old female with a history of iron deficiency anemia, of unclear etiology, history of iron infusions, status post EGD and colonoscopy in [facility], at that time showed some stomach irritation, placed on Protonix, consider due to aspirin use presented with abnormal lab. Patient has been following with commission associate for single kidney, she is status post [...] Previous records in the computer system reviewed [facility] Medical History (Updated 08/14/23 @ 19:38 by [...] % (Auto) 19.2 % (.) 08/14/23 17:55 Coos % (Auto) 6.8 % (.) 08/14/23 17:55 Eos % (Auto) 3.3 % (.) 08/14/23 17:55 Baso % (Auto) 0.7 % (.) 08/14/23 17:55 Nucleat RBC Rel Count 0.1 /100 WBC (0-0.5) 08/14/23 17:55 Neut # (Auto) 5.4 x10E3/uL (1.8-7.7) 08/14/23 17:55 Lymph # (Auto) 1.5 x10E3/uL (1.00-4.8) 08/14/23 17:55 Coos # (Auto) 0.5 x10E3/uL (0.0-0.8) 08/14/23 17:55 [...] 3 Documented By: Meagan Roman MD 08/14/23 194 Signed By: <Electronically signed by Meagan Roman MD> 08/14/23 1950 [facility] Work Phone: History general Narrative - Reported* [...] vein ligation 2018 Hospitalization History SEE ABOVE [employer] Other History general Narrative - Reported* Type [...] METABOLIC ENCEPHALOPATHY, COMPLICATED URINARY TRACT INFECTION 11/21/2022 [employer] Other Hisbrfa general Narrative - Reported* Type Description Date [...] METABOLIC ENCEPHALOPATHY, COMPLICATED URINARY TRACT INFECTION 11/21/2022 [employer] Other InstructionsNot on filedocumented in this encounter [facility] Summary Purpose Family History No Family [...] Advance Directives No July 13, 2023 11:41am Advance Directive Response Recorded Date/ Time Advance Directives No July 13, 2023 10:41am Reason for Referral Specialty Diagnoses / Procedures Referred By Ewelina irvin Referred To Contact Radiology Diagnoses Internal derangement of right knee Procedures MR knee right wo IV contrast Valery Garcia [employer]ATING [employer] [address] [place] [address] Referral ID Status Reason Start Date Expiration Date V isits Requested Visits Authorized [id number] Pending Review 04/10/2023 10/07/2023 1 1 Chief Complaint and Reason for Visit Chief Complaint RENAL F/U Reason for Visit Anemia of renal dise [facility] CKD (chronic kidney disease) stage 3, GFR 30-59 ml/min Hyperkalemia [id number] Hyperuricemia Proteinuria Renal cancer Type 2 diabetes mellitus with diabetic chronic kidney disease Vitamin D deficiency Chief Complaint RENAL F/U RENAL INJ PROCRIT / NURSE Hemoglobin is low per Dr Hemoglobin is low per Dr Hemoglobin is low per Dr Reason for Visit Anemia of renal dise [facility] CKD (chronic kidney disease) stage 3, GFR 30-59 ml/min Hyperkalemia [id number] Hyperuricemia Proteinuria Renal cancer Type 2 diabetes mellitus with diabetic chronic kidney disease Vitamin D deficiency Anemia of renal disease CKD (chronic kidney disease) stage 3, GFR 30-59 ml/min [id number] Type 2 diabetes mellitus with diabetic chronic kidney disease Acute blood loss anemia Anemia CKD (chronic kidney disease) stage 3, GFR 30-59 ml/min Gastritis with bleeding [id number] Occult blood positive stool Type 2 diabetes mellitus with diabetic chronic kidney disease Chief Complaint RENAL F/U RENAL INJ PROCRIT / NURSE Hemoglobin is low per Dr Hemoglobin is low per Dr Hemoglobin is low per Dr RENAL 1 MONTH / HOSP F/U Reason for Visit Anemia of renal dise [facility] CKD (chronic kidney disease) stage 3, GFR 30-59 ml/min Hyperkalemia [id number] Hyperuricemia Proteinuria Renal cancer Type 2 diabetes mellitus with diabetic chronic kidney disease Vitamin D deficiency Anemia of renal disease CKD (chronic kidney disease) stage 3, GFR 30-59 ml/min [id number] Type 2 diabetes mellitus with diabetic chronic kidney disease Acute blood loss anemia Anemia CKD (chronic kidney disease) stage 3, GFR 30-59 ml/min Gastritis with bleeding [id number] Occult blood positive stool Type 2 diabetes mellitus with diabetic chronic kidney disease Anemia of renal disease CKD (chronic kidney disease) stage 3, GFR 30-59 ml/min Hyperkalemia [id number] Hyperuricemia Proteinuria Renal cancer Type 2 diabetes mellitus with diabetic chronic kidney disease Vitamin D deficiency Chief Complaint RENAL F/U RENAL INJ PROCRIT / NURSE Hemoglobin is low per Dr Reason for Visit Anemia of renal dise ase CKD (chronic kidney disease) stage 3, GFR 30-59 ml/min Hyperkalemia [id number] Hyperuricemia Proteinuria Renal cancer Type 2 diabetes mellitus with diabetic chronic kidney disease Vitamin D deficiency Anemia of renal disease CKD (chronic kidney disease) stage 3, GFR 30-59 ml/min [id number] Type 2 diabetes mellitus with diabetic chronic [...] kidney disease) stage 3, GFR 30-59 ml/min [id number] Type 2 diabetes mellitus with diabetic chronic kidney disease Anemia of renal disease CKD (chronic kidney disease) stage 3, GFR 30-59 ml/min [id number] Type 2 diabetes mellitus with diabetic chronic kidney disease Acute blood loss anemia Anemia CKD (chronic kidney disease) stage 3, GFR 30-59 ml/min Gastritis with bleeding [id number] Occult blood positive stool Type 2 diabetes mellitus with diabetic chronic kidney disease Anemia of renal disease Hyperkalemia Hyperuricemia Proteinuria Renal cancer Vitamin D deficiency CKD (chronic kidney disease) stage 3, GFR 30-59 ml/min [id number] Type 2 diabetes mellitus with diabetic chronic kidney disease Anemia of renal disease Hyperkalemia Hyperuricemia Proteinuria Renal cancer Vitamin D deficiency CKD (chronic kidney disease) stage 3, GFR 30-59 ml/min [id number] Type 2 diabetes mellitus with diabetic chronic [...] kidney disease) stage 3, GFR 30-59 ml/min [id number] Type 2 diabetes mellitus with diabetic chronic kidney disease Anemia of renal disease CKD (chronic kidney disease) stage 3, GFR 30-59 ml/min [id number] Type 2 diabetes mellitus with diabetic chronic kidney disease Acute blood loss anemia Anemia CKD (chronic kidney disease) stage 3, GFR 30-59 ml/min Gastritis with bleeding [id number] Occult blood positive stool Type 2 diabetes mellitus with diabetic chronic kidney disease Anemia of renal disease Hyperkalemia Hyperuricemia Proteinuria Renal cancer Vitamin D deficiency CKD (chronic kidney disease) stage 3, GFR 30-59 ml/min [id number] Type 2 diabetes mellitus with diabetic chronic kidney disease Anemia of renal disease Hyperkalemia Hyperuricemia Proteinuria Renal cancer Vitamin D deficiency CKD (chronic kidney disease) stage 3, GFR 30-59 ml/min [id number] Type 2 diabetes mellitus with diabetic chronic kidney disease Chief Complaint Hemoglobin is low pe r Hemoglobin is low per Dr Hemoglobin is low per Dr RENAL 1 MONTH / HOSP F/U RENAL 1 MONTH F/U follow up scope KLEBER due to Chronic blood loss Reason for Visit Acute blood loss ane prabha Anemia CKD (chronic kidney disease) stage 3, GFR 30-59 ml/min Gastritis with bleeding [id number] Occult blood positive stool Type 2 diabetes mellitus with diabetic chronic kidney disease Anemia of renal disease Hyperkalemia Hyperuricemia Proteinuria Renal cancer Vitamin D deficiency CKD (chronic kidney disease) stage 3, GFR 30-59 ml/min [id number] Type 2 diabetes mellitus with diabetic chronic kidney disease Anemia of renal disease Hyperkalemia Hyperuricemia Proteinuria Renal cancer Vitamin D deficiency CKD (chronic kidney disease) stage 3, GFR 30-59 ml/min [id number] Type 2 diabetes mellitus with diabetic chronic kidney disease Chief Complaint follow up scope KLEBER due to Chronic blood loss RENAL 3 MONTH F/U Reason for Visit Anemia of renal dise ase Hyperkalemia Hyperuricemia Proteinuria Renal cancer Vitamin D deficiency CKD (chronic kidney disease) stage 3, GFR 30-59 ml/min [id number] Type 2 diabetes mellitus with diabetic chronic kidney disease Chief Complaint Admit Date KLEBER due to Chronic blood loss October 6:16am iron def. anemia[facility] RENAL 3 MONTH F/U January 02, 2024 1 2:58pm Reason for Visit Admit Date Anemia of renal disease January 01 12:58pm Hyperkalemia January 02, 2024 1 2:58pm Hyperuricemia January 02, 2024 1 2:58pm Proteinuria January 02, 2024 1 2:58pm Renal cancer January 02, 2024 1 2:58pm Vitamin D deficiency January 02, 2024 12:58pm CKD (chronic kidney disease) stage 3, GF R 30-59 ml/min January 02, 2024 12:58pm Hypertensive chronic kidney disease with stage 1 through stage 4 chronic ki January 02, 2024 12:58pm Type 2 diabetes mellitus wit h diabetic chronic kidney disease January 02, 2024 12:58pm Additional Source Comments INFORMATION SOURCE (unrecogn ized section and content) DATE CREATED AUTHOR 10/28/2017 [facility] DATE CREATED AUTHOR AUTHOR'S ORGANIZ ATION 07/21/2019 [facility] DATE CREATED AUTHOR AUTHOR'S ORGANIZ ATION 04/29/2022 [facility] DATE CREATED AUTHOR AUTHOR'S ORGANIZ ATION 09/22/[address] [facility] DATE CREATED AUTHOR AUTHOR'S ORGANIZ ATION 01/15/2024 [facility] EP[facility] DATE CREATED AUTHOR AUTHOR'S ORGANIZ ATION 01/24/2024 [facility] DATE CREATED AUTHOR AUTHOR'S ORGANIZ ATION 01/27/2024 [facility] REASON FOR VISIT (unrecogniz ed section and content) Reason Comments Pain Reason Comments Follow-up Reason Onset Date Comments Med Refill 01/23/2024 Care Teams (unrecognized sec tion and content) Team Status: Active Member Role Status Dates Misael Perez MD Primary Care Provider Active Team Status: Inactive Member Role Status Dates [...] 2023 End: October 30, 2023 Team Status: Active Member Role Status Dates Misael Perez MD Primary Care Provider Active S tart: December 26, 2023 Aleyda Bourgeois MD Attending Provider Active Start : December 26, 2023 Team Status: Inactive Member Role Status Dates Misael Perez MD Primary Care Provider Active S tart: January 02, 2024 End: January 02, 2024 Aleyda Bourgeois MD Attending Provider Active Start : January 02, 2024 End: January 02, 2024 Team Status: Active Member Role Status Dates [...] Status: Active Member Role Status Dates Misael Peerz MD Primary Care Provider Active S tart: August 15, 2023 Liliana Kaba DO Emergency Provider Active Sta rt: August 15, 2023 Meagan Roman MD Admit Provider, Other Provider Ac tive Start: August 15, 2023 Kuldeep Almazan MD Attending Provider, Other Provider Act kristi Start: August 15, 2023 Aleyda Bourgeois MD Other Provider Active Start: jack 2023 Team Status: Active Member Role Status [...] Provider Ac tive Start: August 15, 2023 Student Counsellor Relationship Specialty Start Date End Date Misael Perez MD [address] [place] [phone] PCP - General Family Medicine 04/06/23 Student Counsellor Relationship Specialty Start Date End Date Misael Perez MD [address] [place] [phone] PCP - General Family Medicine 04/06/23 Student Counsellor Relationship Specialty Start Date End Date Misael Perez MD [address] [place] [phone] PCP - General Family Medicine 04/06/23 Student Counsellor Relationship Specialty Start Date End Date Misael Perez MD [address] [place] [phone] PCP - General Family Medicine 04/06/23 Student Counsellor Relationship Specialty Start Date End Date Misael Perez MD [address] [place] [phone] PCP - General Family Medicine 04/06/23 Team Status: Active Member Role Status Dates Yan Ramos DO Primary Care Provider Active Team Status: Active Member Role Status Dates Misael Perez MD Primary Care Provider Active S tart: August 14, 2023 Liliana Kaba DO Emergency Provider Active Sta rt: August 14, 2023 Meagan Roman MD Admit Provider, Attending Provide r Active Start: August 14, 2023 Student Counsellor Relationship Specialty Start Date End Date Misael Perez MD [address] [place] [phone] PCP - General Family Medicine 04/06/23 Student Counsellor Relationship Specialty Start Date End Date Misael Perez MD [address] [place] [phone] PCP - General Family Medicine 04/06/23 Student Counsellor Relationship Specialty Start Date End Date Misael Perez MD [address] [place] [phone] PCP - [facility] Family Medicine 04/06/23 Team Status: Inactive Member Role Status Dates Misael Perez MD Primary Care Provider Active S tart: November 22, 2023 End: November 22, 2023 Kuldeep Almazan MD Attending Provider Active Start: November 22, 2023 End: November 22, 2023 Student Counsellor Relationship Specialty Start Date End Date Misael Perez MD [address] [place] [phone] PCP - [facility] Family Medicine 04/06/23 Goals (unrecognized section and content) Goals may [...] BE BASED ON THE PRIMARY CLINICAL RECORDS. [facility]. provides no warranty or guarantee of the accuracy or completeness of information in this document.
== END 2024-01-30 09:53 | disposition home or self-care (01) ==
LOC: CARD 09:53
PROVIDERS: PCP Family Medicine; Visit Provider Internal Medicine Interventional Cardiology
DX: I34.0 Nonrheumatic mitral (valve) insufficiency (principal); I36.1 Nonrheumatic tricuspid (valve) insufficiency; I27.20 Pulmonary hypertension, unspecified
CPT/HCPCS: 93306; 93356

== ENCOUNTER 2024-04-10 07:56 | Outpatient (OUT) | payer MEDICARE, OTHER, SELFPAY ==
--- NOTE | 2024-04-10 | NM_ITS ---
Patient Name: ARMANDO SIMMONS MR#: [id number] : 1945 Exam Date: 04/10/2024 Ordering Doctor: Jakob Duval RADIOLOGY REPORT PROCEDURE: NM AAMIR PERF SPECT REST STR COMPARISON: None. INDICATIONS: OTHER FORMS OF DYSPNEA TECHNIQUE: Exam Description: Stress/Rest one day protocol gated SPECT Rest Imagin.4 mCi Tc-99m Cardiolite IV on 04/10/2024 Stress Imaging 30.6 mCi Tc-99m Cardiolite IV on 04/10/2024 Exercise Protocol: 0.4 mg Lexiscan given IV Heart Rate (bpm): Rest: 50 Max: 74 PMHR: 51 Blood Pressure: Rest: 132/64 Max: 132/64 Symptoms: Rest and peak stress ECG findings were pending and the exercise portion of the study was pending per attending physician Dr. PADGETT . For more details please see separate cardiac stress test report. FINDINGS: QUALITY OF STUDY: Excellent. PERFUSION DEFECT: None. LOCATION: N/A SIZE: N/A. SEVERITY: N/A. TYPE: N/A. WALL MOTION: Normal. LV SIZE: Normal. Enlarged; EDV 138 mL. TID / TCD: None; 1.0 LVEF: Normal. Calculated EF 67%. SUMMARY: Myocardial perfusion imaging study has ABNORMAL findings. CONCLUSION: 1. Left ventriculomegaly, 138 mL. 2. Otherwise unremarkable. 3. Normal wall motion and ejection fraction. Dictated by: Ace Dan M.D. on 04/10/2024 at 16:11 Approved by: Ace Dan M.D. on 04/10/2024 at 16:13
--- NOTE | 2024-04-10 | PCN_ITS ---
CARDIAC STRESS TEST Requesting Physician: Procedure Date: 04/10/2024 INDICATION: Dyspnea on exertion. METHODS: After risks, benefits and alternatives were explained, written informed consent was obtained. The patient was connected to the appropriate hemodynamic and electrocardiographic monitoring. She underwent a Lexiscan pharmacological stress test; 0.4 mg of Lexiscan was infused intravenously. Technetium Cardiolite was injected per protocol. She was monitored for the standard duration and transferred to the Radiology Department for nuclear imaging. There were no complications. STRESS TEST INFORMATION: The patient?s resting heart rate was 50 beats per minute, increasing to a maximum of 74 beats per minute. Resting blood pressure was 132/64, decreasing to a minimum of 118/58. The patient had no chest pain or other significant symptoms. ELECTROCARDIOGRAPHY: Resting EKG: Sinus bradycardia, 50 beats per minute, septal infarct age indeterminate, T-wave abnormality consider lateral ischemia. Abnormal EKG. During infusion and recovery: Premature atrial contractions are seen. No significant changes are noted in the ST-T wave segments. No significant arrhythmias are seen. FINAL IMPRESSIONS: 1. Uninterpretable Lexiscan EKG due to abnormal resting EKG. 2. Nuclear images are to be read, interpreted and reported in a separate dictation. [facility]
[2024-04-10] MEDS: REGADENOSON 0.4 MG/5 ML SYRINGE IV (10:05)
== END 2024-04-10 07:57 | disposition home or self-care (01) ==
LOC: NM 07:57
PROVIDERS: PCP Family Medicine; Visit Provider Internal Medicine Cardiovascular Disease
DX: R06.09 Other forms of dyspnea (principal)
CPT/HCPCS: 78452; 93017; A9500; J2785

== ENCOUNTER 2024-06-03 09:49 | Outpatient (OUT) | payer MEDICARE, OTHER, SELFPAY ==
[2024-06-03 12:17] LABS: Thyroid Stimulating Hormone 1.269 uIU/mL (0.358-3.740)
[2024-06-03 12:38] LABS: C Reactive Protein <0.50 mg/dL (<=0.50)
[2024-06-04 05:07] LABS: HIV Ab/p24 Ag Screen Non Reactive (Non Reactive)
[2024-06-04 15:34] LABS: Erythrocyte Sedimentation Rate 19 mm/hr (<=30)
[2024-06-05 08:09] LABS: Deamidated Gliadin Abs, IgA 3 units (0-19); Deamidated Gliadin Abs, IgG 1 units (0-19); Endomysial Antibody IgA Negative (Negative); Immunoglobulin A, Qn, Serum 175 mg/dL (64-422); t-Transglutaminase (tTG) IgA <2 U/mL (0-3); t-Transglutaminase (tTG) IgG <2 U/mL (0-5)
== END 2024-06-03 09:50 | disposition home or self-care (01) ==
LOC: LAB 06-04 09:49
PROVIDERS: PCP Family Medicine; Visit Provider Internal Medicine
DX: R19.7 Diarrhea, unspecified (principal)
CPT/HCPCS: 36415; 82784; 84443; 85652; 86140; 86231; 86258; 86364; 87389

== ENCOUNTER 2024-06-03 10:55 | Outpatient (OUT) | payer MEDICARE, OTHER, SELFPAY ==
--- OUTSIDE RECORDS SUMMARY | 2024-06-03 11:07 | XMS_ITS | CCD ---
Author Organization [facility] Care Team Providers Care Hospitality Specialist Name Role Phone PHYSICIAN, DEFAULT Unavailable Unavailable [...] ALEYDA Consulting Unavailable DENNIS, ALEYDA Attending Unavailable Naderer Misael LOPEZ Primary Care Provider MD Misael Perez Primary Care Provider DO Liliana Kaba Emergency Provider [phone] MD Meagan Roman Admit Provider MD Meagan [...] Acuna Referring Unavailable NADERER, MISAEL Attending Unavailable LISETTEWWASHAIKH Ochoa Attending Unavailable OLIVE, FELIPE Acuna Attending Unavailable BELEN PATRICK Attending Unavailable OLIVE, FELIPE Acuna Referring Unavailable JL PEPE Attending Unavailable OLIVE, FELIPE Acuna Referring Unavailable JL PEPE Attending Unavailable OLIVE, FELIPE Acuna Referring Unavailable APLINGVALERY Attending Unavailable PEPEJL Attending Unavailable OLIVE, FELIPE Acuna Referring Unavailable NADERER, MISAEL Attending Unavailable OLIVE, FELIPE Acuna Attending Unavailable OLIVE, FELIPE Acuna Referring Unavailable YULY VALDERRAMA Attending Unavailable OLIVE, FELIPE Acuna Referring Unavailable JL PEPE Attending Unavailable FAWWAGabriela FERRO Referring Unavailable CHERY VELA Attending Unavailable MISAEL PEREZ Attending Unavailable CHERY VELA Attending Unavailable CHERY VELA Referring Unavailable Misael Perez MD Primary Care Provider Tha LPOEZ, Kuldeep Attending Provider [phone] Asaad, Imad Admitting Unavailable Asamicki, Imad Attending Unavailable Misael Perez Primary Care Unavailable Asaad, Imad Admitting Unavailable Asaad, Imad Attending Unavailable Misael Perez Primary Care Unavailable Asaad, Imad Consulting Unavailable Semaskiene, Meagan Admitting Unavailable Semaskiene, Meagan Attending Unavailable Misael Perez Primary Care Unavailable Dennis, Aleyda Consulting Unavailable Misael Perez MD Unavailable JAKOB SMALLS Admitting Unavailable JAKOB SMALLS Attending Unavailable MOUKARBJOLANTA, ELLEN Attending Unavailable MOUKARBEL, ELLEN Attending Unavailable JAKOB SMALLS Attending Unavailable JAKOB SMALLS Referring Unavailable Allergies Allergy Classification Reported Allergen(s) Allergy Type Date of Onset Reaction(s) Facility Latex (1 source) Latex Substance Allergy 4 [facility] NSAIDs (1 source) Ketorolac Drug Allergy 4 Swelling of Lip/Tongue/Thro at [facility] (20 sources) Latex; Translations: [LATEX] Propensity to adverse reactions 4 [facility] (1 source) DULoxetine Drug Allergy [facility] (1 source) Ketorolac Drug Allergy [facility] (1 source) natural latex rubber Drug allergy (disorder) [facility] (3 sources) NSAIDs; Translations: [NSAIDS (NON-STEROIDAL ANTI-INFLAMMATO RY DRUG)] Drug allergy (disorder) 9 [facility] (20 sources) Latex Allergy to substance 3 Unknown [facility] Work Phone: (20 sources) Ketorolac; Translations: [KETOROLAC] Propensity to adverse reactions 9 Rash [facility] (20 sources) Non-steroidal anti-inflammato ry agent Drug Intolerance 9 Swelling, Rash [facility] (1 source) Ketorolac Drug Allergy 4 [facility] Repository (1 source) Latex Drug allergy (disorder) 4 [facility] Repository (1 source) amLODIPine; Translations: [AMLODIPINE] Drug Allergy 5 [facility] Repository Medications Current Medications Medication Drug Class(es) Dates Sig (Normalized) Sig (Original) acetaminophen 325 mg / oxyCODONE hydrochloride 10 mg oral tablet (20 sources) Opioid Agonist Start: 05-01-2024 End: 06-03-2024 take 1 tablet by mouth four times daily as needed for pain oxyCODONE-acetami nophen (Percocet) 10-325 MG tablet Indications: DDD (degenerative disc disease), cervical Take 1 tablet by mouth 4 (four) times a day as needed for severe pain or moderate pain 120 tablet 05/01/2024 06/03/2024 Active Start: 03-12-2024 End: 04-11-2024 take 1 tablet by mouth four times daily as needed for pain oxyCODONE-acetaminophen (Percocet) 10-32 5 MG tablet Indications: DDD (degenerative disc disease), cervical Take 1 tablet by mouth 4 (four) times a day as needed for severe pain or moderate pain 120 tablet 03/12/2024 04/11/2024 Active Start: 01-23-2024 End: 02-22-2024 take 1 tablet [...] 120 tablet 12/04/2023 01/03/2024 Active Start: 07-13-2023 End: 12-04-2023 take 1 tablet by mouth every six hours as needed oxyCODONE-acetaminophen (Percocet) 10-32 5 MG tablet Take 1 tablet by mouth every 6 (six) hours if needed 07/13/2023 12/04/2023 Discontinued (Reorder) Start: 03-22-2023 take 1 tablet by bi [...] PO every week July 12, 2023 11:00pm take 1 tablet by bi th every week alendronate (Fosamax) 70 MG tablet 1 tablet Orally once a week 0 Active amoxicillin 500 mg oral tablet (10 sources) Penicillin-class Antibacterial Start: 01-11-2024 End: 06-03-2024 take 4 tablets by mouth once at mealtime amoxicillin (Amoxil) 500 MG tablet Indications: Status post right knee replacement 4 tabs PO once 30-60 mins before procedure with food 4 tablet 3 01/11/2024 06/03/2024 Discontinued atorvastatin 10 mg oral tablet (20 sources) HMG-CoA Reductase Inhibitor Start: 04-06-2023 End: 03-29-2025 take 1 tablet by mouth once daily atorvastatin (Lipitor) 10 MG tablet Indications: Dyslipidemia (CMS/HCC) Take 1 tablet (10 mg) by mouth Daily 30 tablet 11 03/29/2024 03/29/2025 Active take 1 tablet by bi th every twenty-four hours Atorvastatin Calcium 10 MG 1 tablet Oral ly Once a day Active carvedilol 12.5 mg oral tablet (2 sources) alpha-Adrenergic Raquel, beta-Adrenergic Raquel Start: 01-22-2024 End: 01-23-2025 take 1 tablet by mouth in the morning carvedilol (Coreg) 12.5 MG tablet Take 12.5 mg by mouth in the morning and 12.5 mg in the evening. Take with meals. 01/22/2024 01/23/2025 Active clonazePAM 0.5 mg oral tablet (7 sources) Benzodiazepine take 1 tablet by mouth at bedtime clonazePAM (KlonoPIN) 0.5 MG tablet 1 tablet at bedtime Orally 1-2 times per day 0 Active CoQ-10 400 MG (13 sources) take 1 capsule by mouth once daily CoQ-10 400 MG 1 capsule with a meal Orally Once a day for 30 day(s) Active epoetin anjana 19898 unt/ml injectable solution (1 source) Erythropoiesis-stimulat ing Agent Procrit 10236 UNIT/ML as directed Injection once a month Active ferrous sulfate 325 mg oral tablet (20 sources) Start: 07-13-2023 [...] (20 sources) Anti-epileptic Agent Start: 11-27-2023 End: 05-29-2024 take 1 capsule by mouth every eight hours gabapentin (Neurontin) 100 MG capsule Indications: Paresthesia of both feet Take 1 capsule (100 mg) by mouth every 8 (eight) hours 90 capsule 2 02/29/2024 Active Start: 08-14-2023 take 1 capsule by mo [facility] three times daily Gabapentin 100 mg capsule Active 100 MG PO Three times daily August 13, 2023 11:00pm Start: 02-21-2023 End: 05-22-2023 take 1 capsule by mouth every eight hours gabapentin (Neurontin) 100 MG capsule Indications: Paresthesia of both feet Take 1 capsule (100 mg) by mouth every 8 (eight) hours 90 capsule 2 02/21/2023 05/22/2023 Active take 1 capsule by mo [facility] every eight hours Gabapentin 100 MG [...] succinate 50 mg extended release oral tablet (20 sources) beta-Adrenergic Raquel Start: 01-02-2024 take 1 tablet by mouth every twenty-four hours Metoprolol Succinate 50 mg tablet extended release 24 hr Active MG PO January 01, 2024 11:00pm Start: 01-02-2024 Metoprolol Suc cinate Active MG PO January 02, 2024 12:00am Start: 07-27-2023 End: 06-03-2024 take 1 tablet by mouth once daily metoprolol succinate XL (Toprol-XL) 50 MG 24 hr tablet Indications: Paroxysmal atrial fibrillation (CMS/HCC) , Chronic diastolic congestive heart failure (CMS/HCC) Take 1 tablet (50 mg) by mouth Daily Do not crush or chew. 90 tablet 3 12/04/2023 06/03/2024 Discontinued OXcarbazepine 150 mg oral tablet (13 sources) [...] release (DR/EC) Active 40 MG PO Daily October 10, 2023 12:20pm Start: 08-15-2023 End: [...] 12, 2023 11:00pm take 1 capsule by [facility] every twenty-four hours CoQ-10 400 MG [...] 24, 2023 12:00am May 09, 2023 4:04pm amLODIPine (Norv asc) 10 MG tablet 1 (one) time each day at the same time. 0 Active cholecalciferol 0.05 mg oral capsule (20 sources) Vitamin D Start: 07-13-2023 End: 06-03-2024 take 1 capsule by mouth once daily Cholecalciferol (Vitamin D3) 50 mcg (2,000 unit) capsule Discontinued 2000 UNIT PO Daily July 12, 2023 11:00pm January 02, 2024 12:13pm Finerenone 10 MG (8 sources) Start: 01-13-2022 [...] 5 mg tablet Discontinued 0 .ROUTE .COMPLEX December 06, 2023 5:06pm December 07, 2023 2:52pm TAKE 1 TABLET BY MOUTH DAILY Start: 12-10-2020 End: 06-03-2024 take 1 tablet by mouth once daily [...] tablet 0 04/10/2023 04/11/2023 Discontinued (Therapy completed) PROCRIT INJECTION - 1000 units (11 sources) Start: 02-21-2023 PROCRIT INJECT ION - 1000 units Feb, 1000 mL Start: 02-01-2023 PROCRIT INJECT ION - 1000 units Jan, 1000 mL Start: 2022 PROCRIT INJECT ION - 1000 units Nov, 1000 units Problems Active Problems Problem Classification Problem Date Documented Date Episodic/Chronic Anxiety disorders (18 sources) Generalized anxiety disorder; Translations: [Generalized anxiety [...] malignant neoplasm of kidney] Episodic Cardiac dysrhythmias (20 sources) Unspecified atrial fibrillation; Translations: [Paroxysmal atrial fibrillation] Onset: 4 07-27-2023 Chronic Cardiac dysrhythmias (4 sources) Palpitations; Translations: [Bradycardia, unspecified] Onset: 4 Episodic Chronic kidney disease (20 sources) Chronic kidney disease stage 2; Translations: [Chronic kidney disease, stage 2 (mild)] Onset: 4 04-18-2023 Chronic Chronic kidney disease (13 sources) Chronic kidney disease; Translations: [Chronic kidney disease, stage 3 unspecified] Onset: 1 Resolved: 1 Congestive heart failure; nonhypertensive (20 sources) Chronic diastolic heart failure; Translations: [Chronic diastolic (congestive) heart failure] Onset: 4 07-27-2023 Chronic Deficiency and other anemia (17 sources) Anemia in chronic kidney disease; Translations: [Anemia in chronic kidney disease] Chronic Deficiency and other anemia (6 sources) Anemia in chronic kidney disease; Translations: [Anemia in chronic kidney disease D63.1] Onset: 1 Resolved: 1 Chronic Deficiency and other anemia (16 sources) Anemia co-occurrent and due to chronic kidney disease stage 3; Translations: [Anemia due to stage 3b chronic kidney disease (HCC)] Onset: 3 06-06-2023 Chronic Deficiency and other anemia (16 sources) Iron deficiency anemia due to blood loss; Translations: [Iron 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 (chronic)] Onset: 4 08-22-2023 Chronic Deficiency and other anemia (4 sources) Iron deficiency anemia; Translations: [Iron deficiency anemia, unspecified] Onset: 3 04-11-2023 Episodic Deficiency and other anemia (8 sources) Anemia; Translations: [Anemia, unspecified] 08-15-2023 Episodic Diabetes mellitus with complications (20 [...] [Hyperkalemia] Onset: 4 Episodic Gastritis and duodenitis (20 sources) Atrophic gastritis; Translations: [Chronic atrophic 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] Onset: 4 04-11-2023 Chronic Genitourinary symptoms and ill-defined conditions (20 sources) Proteinuria, unspecified; Translations: [Proteinuria] Onset: 1 Resolved: 2 Episodic Heart valve disorders (20 sources) Non-rheumatic mitral regurgitation ; Translations: [Nonrheumatic [...] (1 source) Patient encounter status; Translations: [Other predatory animal exterminator (current) drug therapy] 04-18-2023 Episodic Other aftercare (4 sources) Long-term current use of drug therapy; Translations: [Other detention (current) drug therapy] Onset: 5 06-03-2024 Episodic Other connective tissue disease (18 sources) History of total knee arthroplasty; Translations: [...] Translations: [Other fecal abnormalities] 08-14-2023 Episodic Other nervous system disorders (1 source) Paresthesia of foot ; Translations: [Paresthesia of skin] 02-29-2024 Episodic Other non-traumatic joint disorders (4 sources) Pain in right knee; Translations: [Pain in joint, lower leg] 04-07-2023 Episodic Other nutritional; endocrine; and metabolic disorders (2 sources) Obesity, unspecified; Translations: [OBESITY UNSPECIFIED] Onset: 2 Chronic Other nutritional; endocrine; and metabolic disorders (19 sources) Body mass index 30+ - obesity; Translations: [Obesity, unspecified] Onset: 4 04-18-2023 Chronic Other nutritional; endocrine; and metabolic disorders (4 sources) Severe obesity; Translations: [Class 2 severe obesity due to excess calories with serious comorbidity and body mass index (BMI) of 35.0 to 35.9 in adult ([facility])] Onset: 4 06-03-2024 Chronic Other nutritional; endocrine; and metabolic disorders (20 sources) Hyperuricemia without signs of inflammatory arthritis and tophaceous disease; Translations: [Other abnormal blood chemistry] Onset: 2 Episodic Other nutritional; endocrine; and metabolic disorders (9 sources) Hyperuricemia; Translations: [Hyperuricemia without signs of inflammatory arthritis and tophaceous disease] 07-13-2023 Episodic Pulmonary heart disease (2 sources) Pulmonary hypertension, unspecified; Translations: [Pulmonary hypertension, unspecified] Onset: 4 Chronic Spondylosis; intervertebral disc disorders; other back problems (20 sources) Degeneration of cervical intervertebral disc; Translations: [Other cervical disc degeneration, unspecified cervical region] Onset: 4 04-18-2023 Chronic Unclassified (4 sources) CHRN KIDNEY DISEASE STG 3 UNSP; Translations: [CHRN KIDNEY DISEASE STG 3 UNSP] Onset: 2 Unclassified (1 source) right knee degenerative joint disease Onset: 4 Unclassified (1 source) Supraventricular tachycardia, unspecified; Translations: [Supraventricular tachycardia, unspecified] Onset: 5 Past or Other Problems Problem Classification Problem Date Documented Da te Episodic/Chronic Acute posthemorrhagic anemia (13 sources) Acute posthemorrhagic anemia; Translations: [Acute posthemorrhagic anemia] Onset: 4 08-15-2023 Episodic Deficiency and other anemia (7 sources) Anemia, unspecified; Translations: [Anemia, unspecified] Onset: 4 08-15-2023 Episodic Deficiency and other anemia (2 sources) Iron deficiency anemia, unspecified; Translations: [Iron deficiency anemia, unspecified] Onset: 3 Episodic Gastritis and duodenitis (13 sources) Acute hemorrhagic gastritis; Translations: [Gastritis, unspecified, with bleeding] Onset: 4 08-15-2023 Episodic Mood disorders (18 sources) Recurrent major depressive episodes, mild ; Translations: [Major depressive disorder, recurrent, mild] Onset: 4 Resolved: 4 04-18-2023 Chronic Other aftercare (2 sources) Other detention (current) drug therapy; Translations: [OTH LOG ROLLER CURRENT DRUG THERAPY] Onset: 2 Episodic Other aftercare (16 sources) Post-discharge follow-up; Translations: [Encounter for follow-up examination after completed treatment for conditions other than malignant neoplasm] Onset: 4 Resolved: 4 12-04-2023 Episodic Other and unspecified benign neoplasm (20 sources) Polyp of sigmoid colon; Translations: [Polyp of colon] Onset: 4 04-11-2023 Episodic Other connective tissue disease (20 sources) History of cervical spine fusion; Translations: [Arthrodesis status] Onset: 4 04-11-2023 Episodic Other diseases of kidney and ureters (2 sources) Disorder of kidney and ureter, unspecified; Translations: [Unspecified disorder of kidney and ureter] Onset: 4 08-14-2023 Episodic Other gastrointestinal disorders (7 sources) Other fecal abnormalities; Translations: [Nonspecific abnormal findings in stool contents] Onset: 4 08-15-2023 Episodic Other gastrointestinal disorders (2 sources) Personal history of other diseases of the digestive system; Translations: [Personal history of other diseases of the digestive system] Onset: 4 Episodic Other lower respiratory disease (2 sources) Shortness of breath; Translations: [Shortness of breath] Onset: 4 Episodic Other screening for suspected conditions (not mental disorders or infectious disease) (2 sources) Abnormal electrocardiogram [ECG] [EKG]; Translations: [Abnormal electrocardiogram (ECG) (EKG)] Onset: 4 Episodic Residual codes; unclassified (18 sources) Bilateral lower limb edema; Translations: [Localized edema] Onset: 4 04-18-2023 Episodic Spondylosis; intervertebral disc disorders; other back problems (20 sources) Neck pain; Translations: [Cervicalgia] Onset: 4 Resolved: 4 04-11-2023 Episodic Unclassified (1 source) CHRN KIDNEY DISEASE STG 3 UNSP; Translations: [CHRN KIDNEY DISEASE STG 3 UNSP] Onset: 3 Unclassified (1 source) Supraventricular tachycardia, unspecified; Translations: [Supraventricular tachycardia, unspecified] Onset: 5 Varicose veins of lower extremity (18 sources) Varicose veins of lower extremity; Translations: [Varicose veins of bilateral lower extremities with pain] Onset: 4 04-18-2023 Episodic Results Test Name Value Interpretation Reference Range Facility on 05-06-2024 HP Attestation signed by Jakob Smalls MD at 05/06/2024 8:27 AM By using the attestations below, the signing clinician agrees that I have read and verify that the documentation has been personally reviewed by me and ensure that the documentation accurately reflects the encounter. GC: I performed the be portion(s) of the service and participated in the management and confirm the resident's documentation. Please note there may be an additional personal documentation from me. [facility] Reason for visit: Loop implant 05/06/2024 here for loop implant. HPI: Malgorzata Simmons is a 78 y.o. year old with past medical history of ? AF was recently diagnosed to have atrial fibrillation when she admitted to get knee surgery in July 2023. Subsequently she was noted to have a GI bleed in August 2023 and she refused to start anticoagulation. 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 She has been seen by in the past and being evaluated for Watchman an echocardiogram done recently showed low low normal. EF with moderately elevated right-sided pressures. She also had an event monitor placed which showed evidence of atrial tachycardia versus atrial flutter that lasted approximately 7 seconds. No A-fib was noted on the study. Patient feels fatigue and shortness of breath with activity of carrying household materials from 1 room to the other. PMH: Medical History Past Medical History: Diagnosis Date Abnormal ECG Chronic kidney disease Diabetes mellitus (CMS/HCC) Hyperlipidemia Hypertension PSH: Surgical History Past Surgical History: Procedure Laterality Date TOTAL KNEE ARTHROPLASTY SH: Social Determinants of Health Tobacco Use: Medium Risk (01/24/2024) Patient History Smoking Tobacco Use: Former Smokeless Tobacco Use: Never Passive Exposure: Not on file Alcohol Use: Not At Risk (12/03/2023) Received from [facility] AUDIT-C Frequency of Alcohol Consumption: Never Average Number of Drinks: Patient does not drink Frequency of Binge Drinking: Never Financial Resource Strain: Low Risk (12/03/2023) Received from [facility] Overall Financial Resource Strain (CARDIA) Difficulty of Paying Living Expenses: Not hard at all Food Insecurity: No Food Insecurity (12/03/2023) Received from [facility] Hunger Vital Sign Worried About Running Out of Food in the Last Year: Never true Ran Out of Food in the Last Year: Never true Transportation Needs: No Transportation Needs (12/03/2023) Received from [facility] PRAPARE - Transportation Lack of Transportation (Medical): No Lack of Transportation (Non-Medical): No Physical Activity: Insufficiently Active (12/03/2023) Received from [facility] Exercise Vital Sign Days of Exercise per Week: 2 days Minutes of Exercise per Session: 20 min Stress: No Stress Concern Present (12/03/2023) Received from [facility] [employer] [place] [employer] Occupational [employer] - Occupational Stress Questionnaire Feeling of Stress : Only a little Social Connections: Socially Isolated (12/03/2023) Received from [facility] Social Connection and Isolation Panel [NHANES] Frequency of Communication with Friends and Family: Three times a week Frequency of Social Gatherings with Friends and Family: Twice a week Attends Hindu Services: Never Active Member of Clubs or Organizations: No Attends Club or Organization Meetings: Never Marital Status: Intimate Partner Violence: Not on file Depression: Not at risk (07/27/2023) Received from [facility] Flare Code [facility] PHQ-2 Patient Health Questionnaire-2 Score: 0 Housing Stability: Low Risk (12/03/2023) [facility] Housing Stability Vital Sign Unable to Pay for Housing in the Last Year: No Number of Times Moved in the Last Year: 0 Homeless in the Last Year: No Utilities: Not At Risk (07/19/2023) [facility] Utilities Threatened with loss of utilities: No Health Literacy: Adequate Health Literacy (12/03/2023) Received from [facility] Flare Code [facility] B1300 Health Literacy Frequency of need for help with medical instructions: Never Allergies: Allergies Allergies Allergen Reactions Amlodipine Swelling Ketorolac Other, Rash and Unknown Other Re (more content not included)... [facility] NURSNOTEon 05-06-2024 NURSNOTE RN educated pt on d/c instructions. This included: site care, limited physical activity, resume normal diet, future appointments, medications, and moderate sedation instructions. RN educated pt on when to notify physician and when to go to the hospital. RN educated pt on importance of removing dressing in 5 days after the procedure and monitoring site for infection. RN encouraged pt to voice any questions or concerns, and answered any questions or concerns if pt verbalized. Pt was wheeled off of unit with all of belongings. [facility] NM AAMIR PERF SPECT REST STRon 04-10-2024 [place] [address] Nuclear Medicine Report Signed Patient: MALGORZATA SIMMONS MR#: [id number] : 1945 Acct:[id number] Age/Sex: 78 / F ADM Date: 04/10/24 Loc: [facility] Attending Dr: Jakob Smalls M.D. Ordering Physician: Jakob Smalls M.D. Date of Service: 04/10/24 Procedure(s): NM aamir perf SPECT rest str Accession Number(s): [id number] cc: Jakob Smalls M.D.; Misael Perez M.D. Patient Name: MALGORZATA SIMMONS MR#: [id number] : 1945 Exam Date: 04/10/2024 Ordering Doctor: Jakob Smalls RADIOLOGY REPORT PROCEDURE: NM AAMIR PERF SPECT REST STR COMPARISON: None. INDICATIONS: OTHER FORMS OF DYSPNEA TECHNIQUE: Exam Description: Stress/Rest one day protocol gated SPECT Rest Imagin.4 mCi Tc-99m Cardiolite IV on 04/10/2024 Stress Imaging 30.6 mCi Tc-99m Cardiolite IV on 04/10/2024 Exercise Protocol: 0.4 mg Lexiscan given IV Heart Rate (bpm): Rest: 50 Max: 74 PMHR: 51 Blood Pressure: Rest: 132/64 Max: 132/64 Symptoms: Rest and peak stress ECG findings were pending and the exercise portion of the study was pending per attending physician MNKRYSTIN . For more details please see separate cardiac stress test report. FINDINGS: QUALITY OF STUDY: Excellent. PERFUSION DEFECT: None. LOCATION: N/A SIZE: N/A. SEVERITY: N/A. TYPE: N/A. WALL MOTION: Normal. LV SIZE: Normal. Enlarged; EDV 138 mL. TID / TCD: None; 1.0 LVEF: Normal. Calculated EF 67%. SUMMARY: Myocardial perfusion imaging study has ABNORMAL findings. CONCLUSION: 1. Left ventriculomegaly, 138 mL. 2. Otherwise unremarkable. 3. Normal wall motion and ejection fraction. Dictated by: Ace Dan M.D. on 04/10/2024 at 16:11 Approved by: Ace Dan M.D. on 04/10/2024 at 16:13 Dictated By: Ace Dan M.D. Signed By: 04/10/24 1615 DD/ 1614 TD/TT: Roof Shingler: [facility] Radiology, Radiologist, MD - 04/10/2024 [place] [address] Nuclear Medicine Report Signed Patient: MALGORZATA SIMMONS MR#: [id number] : 1945 Acct:[id number] Age/Sex: 78 / F ADM Date: 04/10/24 Loc: [facility] Attending Dr: Jakob Smalls M.D. Ordering Physician: Jakob Smalls M.D. Date of Service: 04/10/24 Procedure(s): NM aamir perf SPECT rest str Accession Number(s): [id number] cc: Jakob Smalls M.D.; Misael Perez M.D. Patient Name: MALGORZATA SIMMONS MR#: [id number] : 1945 Exam Date: 04/10/2024 Ordering Doctor: Jakob Smalls RADIOLOGY REPORT PROCEDURE: NM AAMIR PERF SPECT REST STR COMPARISON: None. INDICATIONS: OTHER FORMS OF DYSPNEA TECHNIQUE: Exam Description: Stress/Rest one day protocol gated SPECT Rest Imagin.4 mCi Tc-99m Cardiolite IV on 04/10/2024 Stress Imaging 30.6 mCi Tc-99m Cardiolite IV on 04/10/2024 Exercise Protocol: 0.4 mg Lexiscan given IV Heart Rate (bpm): Rest: 50 Max: 74 PMHR: 51 Blood Pressure: Rest: 132/64 Max: 132/64 Symptoms: Rest and peak stress ECG findings were pending and the exercise portion of the study was pending per attending physician [facility] . For more details please see separate cardiac stress test report. FINDINGS: QUALITY OF STUDY: Excellent. PERFUSION DEFECT: None. LOCATION: N/A SIZE: N/A. SEVERITY: N/A. TYPE: N/A. WALL MOTION: Normal. LV SIZE: Normal. Enlarged; EDV 138 mL. TID / TCD: None; 1.0 LVEF: Normal. Calculated EF 67%. SUMMARY: Myocardial perfusion imaging study has ABNORMAL findings. CONCLUSION: 1. Left ventriculomegaly, 138 mL. 2. Otherwise unremarkable. 3. Normal wall motion and ejection fraction. Dictated by: Ace Dan M.D. on 04/10/2024 at 16:11 Approved by: Ace Dan M.D. on 04/10/2024 at 16:13 Dictated By: Ace Dan M.D. Signed By: 04/10/24 1615 DD/ 13 TD/TT: Roof Shingler: [facility] Radiology Study observation (narrative) [facility] NM AAMIR PERF SPECT REST STROr dered By: Radiologist Radiology on 04-10-2024 [facility] Work Phone: Office Visiton 04-02-2024 Follow-up visit [id number] Malgorzata Simmons 1945 Date Provider Department Center 04/02/2024 JAKOB ADLER [facility] Family History Problem Relation Age of Onset Hypertension Brother Family Status - Relation Status Age at Brother Level of Service:44882 CO OFFICE/OUTPATIENT NEW MODERATE MDM 45 MINUTES Normal [facility] Orders Onlyon 04-02-2024 Orders Only [id number] Malgorzata Simmons 1945 Date Provider Department Center 04/02/2024 JAVAD URIBE [facility] Family History Problem Relation Age of Onset Hypertension Brother Family Status - Relation Status Age at Brother Normal [facility] Office Visiton 03-22-2024 Follow-up visit [id number] Malgorzata Simmons 1945 Date Provider Department Center 03/22/2024 ELLEN ECHEVERRIA [facility] Family History Problem Relation Age of Onset Hypertension Brother Family Status - Relation Status Age at Brother Level of Service:01931 CO OFFICE/OUTPATIENT ESTABLISHED MOD MDM 30 MIN Normal [facility] Office Visiton 01-24-2024 Follow-up visit [id number] Malgorzata Simmons 1945 Provider Department Center 01/24/2024 ELLEN ECHEVERRIA [facility] Family History Problem Relation Age of Onset Hypertension Brother Family Status - Relation Status Age at Brother Level of Service:43039 CO OFFICE/OP CONSLTJ NEW/EST PT HIGH MDM 55 MINUTES Normal [facility] XR Knee - right 1 or [...] Stable RT total knee replacement. 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 [facility] Radiology Study observation (narrative) [facility] Erythrocyte distribution wid th Auto (RBC) [Ratio]on 12-26-2023 Erythrocyte distribution width (RBC) [Ratio] 14.0 % 11.0-15.0 [facility] Erythrocyte distribution width (RBC) [Ratio] Erythrocyte distribution width [Ratio] by Automated count 11.0-15.0 [facility] Estimated glomerular filtrat ion rate (GFR) non- Americanon 12-26-2023 GFR/1.73 sq M.predicted among non-blacks MDRD (S/P/Bld) [Vol rate/Area] 31 mL/min/{1.73_m2} Low >=60 mL/min/1.73 m 2 [facility] GFR/1.73 sq M.predicted among non-blacks MDRD (S/P/Bld) [Vol rate/Area] Estimated glomerular filtration rate (GFR) non- Low >=60 mL/min/1.73 m 2 [facility] CBC WITH PLATELET NO DI FFERENTIALon 12-26-2023 Erythrocyte distribution width (RBC) [Ratio] 14 % 11.0 - 15.0 % [facility] Hematocrit (Bld) [Volume fraction] 33 % Low 36.0 - 48.0 % [facility] Interpretation and review of laboratory results Abnormal [facility] TBH PLT 251 [facility] RBC 3.48 Low [facility] WBC 7.4 [facility] Hematocrit Auto (Bld) [Volum e fraction]on 12-26-2023 Hematocrit (Bld) [Volume fraction] 33.0 % Low 36.0-48.0 [facility] Hematocrit (Bld) [Volume fraction] Hematocrit [Volume Fraction] of Blood by Automated count Low 36.0-48.0 [facility] Hemoglobin [Mass/volume] in Bloodon 12-26-2023 Hemoglobin (Bld) [Mass/Vol] 10.5 g/dL Low 12.0-16.0 [facility] Hemoglobin (Bld) [Mass/Vol] Hemoglobin [Mass/volume] in Blood Low 12.0-16.0 [facility] Iron binding capacity [Mass/ volume] in Serum or Plasmaon 12-26-2023 Iron binding capacity [Mass/Vol] 284.0 ug/dL 250.0-450.0 [facility] Iron binding capacity [Mass/Vol] Iron binding capacity [Mass/volume] in Serum or Plasma 250.0-450.0 [facility] Iron saturation [Mass Fracti on] in Serum or Plasmaon 12-26-2023 Iron saturation [Mass fraction] 32.7 % [facility] Iron saturation [Mass fraction] Iron saturation [Mass Fraction] in Serum or Plasma [facility] Laboratory - Chemistry and C hemistry - challengeon 12-26-2023 Albumin [Mass/Vol] 4.3 g/dL 3.4-5.0 [facility] Calcium [Mass/Vol] 10.2 mg/dL High 8.5-10.1 [facility] Chloride [Moles/Vol] 107 mmol/L 98-107 [facility] CO2 [Moles/Vol] 25.6 mmol/L 21.0-32.0 [facility] Creatinine [Mass/Vol] 1.60 mg/dL High 0.55-1.02 [facility] Ferritin [Mass/Vol] 328.0 ng/mL High 8.0-252.0 [facility] GFR/1.73 sq M.predicted MDRD (S/P/Bld) [Vol rate/Area] 38 mL/min/{1.73_m2} Low >=60 mL/min/1.73 m 2 [facility] Glucose [Mass/Vol] 102 mg/dL 74-106 [facility] Iron [Mass/Vol] 93.0 ug/dL 50.0-170.0 [facility] Magnesium [Mass/Vol] 2.0 mg/dL 1.8-2.4 [facility] Potassium [Moles/Vol] 5.6 mmol/L High 3.5-5.1 [facility] Sodium [Moles/Vol] 145 mmol/L 136-145 [facility] Urea nitrogen [Mass/Vol] 33.0 mg/dL High 7.0-18.0 [facility] Urea nitrogen/Creatinine [Mass ratio] 20.6 mg/mg [facility] Leukocytes [#/volume] correc azul for nucleated erythrocytes in Blood by Automated counon 12-26-2023 WBC corrected for nucl RBC Auto (Bld) [#/Vol] 7.4 10 3/uL 4.0-11.0 [facility] WBC corrected for nucl RBC Auto (Bld) [#/Vol] Leukocytes [#/volume] corrected for nucleated erythrocytes in Blood by Automated coun 4.0-11.0 [facility] MCH Auto (RBC) [Entitic mass ]on 12-26-2023 MCH (RBC) [Entitic mass] MCH [Entitic ma ss] by Automated count 26.7-34.0 [facility] MCH [Entitic mass] by Automa azul counton 12-26-2023 MCH (RBC) [Entitic mass] 30.2 pg 26.7-34.0 [facility] MCHC Auto (RBC) [Mass/Vol]on 12-26-2023 MCHC (RBC) [Mass/Vol] MCHC [Mass/volume] by Automated count 29.9-35.2 [facility] MCHC [Mass/volume] by Automa azul counton 12-26-2023 MCHC (RBC) [Mass/Vol] 31.8 g/dL 29.9-35.2 [facility] MCV Auto (RBC) [Entitic vol] on 12-26-2023 MCV (RBC) [Entitic vol] MCV [Entitic vol ume] by Automated count 81.0-99.0 [facility] MCV [Entitic volume] by Auto mated counton 12-26-2023 MCV (RBC) [Entitic vol] 94.8 fL 81.0-99.0 N [facility] No Panel Informationon 12-25 Phosphorus Level 4.6 mg/dL 2.6-4.7 [facility] Platelet mean volume Auto (B ld) [Entitic vol]on 12-26-2023 Platelet mean volume (Bld) [Entitic vol] Platelet mean volume [Entitic volume] in Blood by Automated count 9.5-13.5 [facility] Platelet mean volume [Entiti c volume] in Blood by Automated counton 12-26-2023 Platelet mean volume (Bld) [Entitic vol] 10.4 fL 9.5-13.5 [facility] Platelets Auto (Bld) [#/Vol] on 12-26-2023 Platelets (Bld) [#/Vol] 251 10 3/uL 150-450 [facility] Platelets (Bld) [#/Vol] Platelets [#/vol ume] in Blood by Automated count 150-450 [facility] RBC Auto (Bld) [#/Vol]on RBC (Bld) [#/Vol] 3.48 10 6/uL Low 4.20-5.40 [facility] RBC (Bld) [#/Vol] Erythrocytes [#/volume] in Blood by Automated count Low 4.20-5.40 [facility] Serum or plasma anion gap de terminationon 12-26-2023 Anion gap [Moles/Vol] 18.0 mmol/L Fi [facility] Anion gap [Moles/Vol] Serum or plasma anion gap determination [facility] MLR HEMOGLOBIN A1Con 024 Glucose [Mass/Vol] 108 mg/dL [facility] HbA1c (Bld) [Mass fraction] 5.4 % 4.5 - 6.2 % [facility] Comment on above: ADA RECOMMENDED LIMI T 4.0 - 6.0 ADA THERAPEUTIC TARGET < 7.0 ACTION SUGGESTED > 7.0 [facility] COMPLETE BLOOD COUNTon 09-17 Erythrocyte distribution width (RBC) [Ratio] 15.4 % [facility] Comment on above: Performed By: #### C BCA, BMP, LIVR, 54222-1, 3016-3, 85050-9 #### [facility] ([id number]) [address], [address] [place] [address] Hematocrit (Bld) [Volume fraction] 30.2 % Low [facility] Comment on above: Performed By: #### C BCA, BMP, LIVR, 74940-0, 3016-3, 16058-3 #### [facility] ([id number]) [address], [address] [place] [address] Hemoglobin (Bld) [Mass/Vol] 10.1 g/dL [facility] Comment on above: Performed By: #### C BCA, BMP, LIVR, 91596-8, 3016-3, 72286-4 #### [facility] ([id number]) [address], [address] [place] [address] MCH (RBC) [Entitic mass] 29.9 pg [facility] Comment on above: Performed By: #### C BCA, BMP, LIVR, 46645-1, 3016-3, 61050-6 #### [facility] ([id number]) [address], [address] [place] [address] MCHC (RBC) [Mass/Vol] 33.6 g/dL [facility] Comment on above: Performed By: #### C BCA, BMP, LIVR, 27004-8, 3016-3, 17025-1 #### [facility] ([id number]) [address], [address] [place] [address] MCV (RBC) [Entitic vol] 89 fL [facility] Comment on above: Performed By: #### C BCA, BMP, LIVR, 30018-8, 3016-3, 74762-1 #### [facility] ([id number]) [address], [address] [place] [address] Platelet mean volume (Bld) [Entitic vol] 9.3 fL [facility] Comment on above: Performed By: #### C BCA, BMP, LIVR, 66468-0, 3016-3, 57888-3 #### [facility] ([id number]) [address], [address] [place] [address] Platelets (Bld) [#/Vol] 221 10*3/uL [facility] Comment on above: Performed By: #### C BCA, BMP, LIVR, 45651-1, 3016-3, 31290-4 #### [facility] ([id number]) [address], [address] [place] [address] RBC COUNT 3.39 X10E12/L Low 3.80-5.20 [facility] Comment on above: Performed By: #### C BCA, BMP, LIVR, 24292-1, 3016-3, 30239-2 #### [facility] ([id number]) [address], [address] [place] [address] WBC (Bld) [#/Vol] 5.6 10*3/uL [facility] Comment on above: Performed By: #### C BCA, BMP, LIVR, 08178-0, 3016-3, 52916-9 #### [facility] ([id number]) [address], [address] [place] [address] FERRITINon 09-18-2023 Ferritin [Mass/Vol] 352 ng/mL High [facility] Comment on above: Performed By: #### C BCA, BMP, LIVR, 79561-7, 3016-3, 28651-7 #### [facility] ([id number]) [address], [address] [place] [address] IRON PROFILEon 09-18-2023 Iron [Mass/Vol] 77 ug/dL [facility] Comment on above: Performed By: #### C BCA, BMP, LIVR, 43189-8, 3016-3, 56870-4 #### [facility] ([id number]) [address], [address] [place] [address] IRON BINDING 246 ug/dL Low 250-425 [facility] Comment on above: Performed By: #### C BCA, BMP, LIVR, 82153-5, 3016-3, 52968-8 #### [facility] ([id number]) [address], [address] [place] [address] IRON SATURATION 31 % SATURATION Normal 15-50 [facility] Comment on above: Performed By: #### C BCA, BMP, LIVR, 49564-5, 3016-3, 51448-4 #### [facility] ([id number]) [address], [address] [place] [address] Laboratory - Hematology and Cell countson 09-18-2023 RBC (Bld) [#/Vol] 3.39 10*6/uL [facility] No Panel Informationon 09-17 Estimated GFR (Non- 40 mL/min Low [facility] Iron Saturation 31 [facility] Phosphorus Level 4.6 mg/dL [facility] Total Iron Binding Capacity 246 [facility] RENAL PANELon 09-18-2023 Albumin [Mass/Vol] 4.6 g/dL [facility] Comment on above: Performed By: #### C BCA, BMP, LIVR, 83640-2, 3016-3, 53515-9 #### [facility] ([id number]) [address], [address] [place] [address] Anion gap [Moles/Vol] 12 mmol/L Normal 5-15 [facility] Comment on above: Performed By: #### C BCA, BMP, LIVR, 11728-7, 3016-3, 51477-0 #### [facility] ([id number]) [address], [address] [place] [address] Calcium [Mass/Vol] 9.5 mg/dL [facility] Comment on above: Performed By: #### C BCA, BMP, LIVR, 35584-8, 3016-3, 25433-1 #### [facility] ([id number]) [address], [address] [place] [address] Chloride [Moles/Vol] 102 mmol/L [facility] Comment on above: Performed By: #### C BCA, BMP, LIVR, 03727-0, 3016-3, 27458-4 #### [facility] ([id number]) [address], [address] [place] [address] CO2 [Moles/Vol] 27 mmol/L [facility] Comment on above: Performed By: #### C BCA, BMP, LIVR, 04475-8, 3016-3, 83964-3 #### [facility] ([id number]) [address], [address] [place] [address] Creatinine [Mass/Vol] 1.37 mg/dL High [facility] Comment on above: Result Comment: METH OD TRACEABLE TO IDMS STANDARD Performed By: #### C BCA, BMP, LIVR, 18927-1, 3016-3, 49305-5 #### [facility] ([id number]) [address], [address] [place] [address] GFR/1.73 sq M.predicted among non-blacks MDRD (S/P/Bld) [Vol rate/Area] 40 mL/min/{1.73_m2} Low >[address] [facility] Comment on above: Result Comment: Reported eGFR is based on the CKD-EPI 2020 equation that does not use a race coefficient. Performed By: #### C BCA, BMP, LIVR, 71815-3, 3016-3, 24054-8 #### [facility] ([id number]) [address], [address] [place] [address] Glucose [Mass/Vol] 93 mg/dL [facility] Comment on above: Performed By: #### C BCA, BMP, LIVR, 62962-3, 3016-3, 38532-5 #### [facility] ([id number]) [address], [address] [place] [address] Phosphate [Mass/Vol] 4.6 mg/dL Normal 2.4-4.9 [facility] Comment on above: Performed By: #### C BCA, BMP, LIVR, 48796-9, 3016-3, 02181-0 #### [facility] ([id number]) [address], [address] [place] [address] Potassium [Moles/Vol] 4.8 mmol/L [facility] Comment on above: Performed By: #### C BCA, BMP, LIVR, 25342-7, 3016-3, 28293-1 #### [facility] ([id number]) [address], [address] [place] [address] Sodium [Moles/Vol] 141 mmol/L [facility] Comment on above: Performed By: #### C BCA, BMP, LIVR, 94253-2, 3016-3, 59870-0 #### [facility] ([id number]) [address], [address] [place] [address] Urea nitrogen [Mass/Vol] 24 mg/dL [facility] Comment on above: Performed By: #### C BCA, BMP, LIVR, 47893-6, 3016-3, 91860-2 #### [facility] ([id number]) [address], [address] [place] [address] Automated basophil %Ordered By: Meagan Roman on 08-15-2023 Basophils/100 WBC (Bld) 0.8 % Normal . [facility] Comment on above: Performed By: #### C BC, BMP #### [facility] [address] [place] [address] Automated basophil countOrde red By: Meagan Roman on 08-15-2023 Basophils (Bld) [#/Vol] 0.0 10*3/uL Normal 0.0-0.2 [facility] Comment on above: Result Comment: PERF ORMED BY: [place] [address] PATHOLOGIST KILN CLEANER LATONIA BRAND M.D. Performed By: #### C BC, BMP #### [facility] [address] [place] [address] Automated blood monocyte cou ntOrdered By: Meagan Roman on 08-15-2023 Monocytes (Bld) [#/Vol] 0.5 10*3/uL Normal 0.0-0.8 [facility] Comment on above: Performed By: #### C BC, BMP #### [address] Automated eosinophil %Ordere d By: Meagan Roman on 08-15-2023 Eosinophils/100 WBC (Bld) 5.1 % Normal . [facility] Comment on above: Performed By: #### C BC, BMP #### [address] Automated eosinophil countOr dered By: Meagan Roman on 08-15-2023 Eosinophils (Bld) [#/Vol] 0.2 10*3/uL Normal 0.0-0.45 [facility] Comment on above: Performed By: #### C BC, BMP #### [address] Automated monocyte %Ordered By: Meagan Lizzsathish on 08-15-2023 Monocytes/100 WBC (Bld) 9.7 % Normal . [facility] Comment on above: Performed By: #### C BC, BMP #### [address] Automated neutrophil %Ordere d By: Meagan Roman on 08-15-2023 Neutrophils/100 WBC (Bld) 57.5 % Normal . [facility] Comment on above: Performed By: #### C BC, BMP #### [address] Basic Metabolic Panelon 08-04 Creatinine Clr Calc Pharmacy 37.31 Normal [facility] Comment on above: Result Comment: PERF ORMED BY: [place] [address] PATHOLOGIST KILN CLEANER LATONIA BRAND M.D. Performed By: #### C BC, TIBC, RADHA, [id number], FE, CMP #### [address] GFR/1.73 sq M.predicted MDRD (S/P/Bld) [Vol rate/Area] 43.688 mL/min/{1.73_m2} Normal [facility] Comment on above: Performed By: #### C BC, TIBC, RADHA, [id number], FE, CMP #### [address] Calcium [Mass/volume] in Ser um or PlasmaOrdered By: Meagan Roman on 08-15-2023 Calcium [Mass/Vol] 9.0 mg/dL Normal 8.6-10.3 [facility] Comment on above: Performed By: #### C BC, TIBC, RADHA, [id number], FE, CMP #### [address] Carbon dioxide, total [Moles /volume] in Serum or PlasmaOrdered By: Meagan Roman on 08-15-2023 CO2 [Moles/Vol] 25.5 mmol/L Normal 21.0-31.0 [facility] Comment on above: Performed By: #### C BC, TIBC, RADHA, [id number], FE, CMP #### [place] [address] [place] Chloride [Moles/volume] in S matthew or PlasmaOrdered By: Meagan Roman on 08-15-2023 Chloride [Moles/Vol] 106 mmol/L Normal 98-107 [facility] Comment on above: Performed By: #### C BC, TIBC, RADHA, [id number], FE, CMP #### [address] Complete Blood Count Auto Di ffon 08-15-2023 Hematocrit (Bld) [Volume fraction] 26.1 % Low 34.0-46.4 [facility] Comment on above: Performed By: #### C BC, BMP #### [address] Hemoglobin (Bld) [Mass/Vol] 8.8 g/dL Low 11.8-15.4 [facility] Comment on above: Performed By: #### C BC, BMP #### [address] Mean Corpuscular HGB Conc 33.6 g/dL Normal 32.0-35.0 [facility] Comment on above: Performed By: #### C BC, BMP #### [address] NRBC% 0.1 /100{WBC} Normal 0-0.5 [facility] Comment on above: Performed By: #### C BC, BMP #### [address] Creatinine [Mass/volume] in Serum or PlasmaOrdered By: Meagan Roman on 08-15-2023 Creatinine [Mass/Vol] 1.28 mg/dL High 0.60-1.20 [facility] Comment on above: Performed By: #### C BC, TIBC, RADHA, [id number], FE, CMP #### [address] Erythrocyte distribution wid th [Ratio] by Automated countOrdered By: Meagan Roman on 08-15-2023 Erythrocyte distribution width (RBC) [Ratio] 14.8 % Normal 11.9-15.3 [facility] Comment on above: Performed By: #### C BC, BMP #### [address] Erythrocytes [#/volume] in B lood by Automated countOrdered By: Meagan Roman on 08-15-2023 RBC (Bld) [#/Vol] 2.97 10*6/uL Low 3.60-5.00 [facility] Comment on above: Performed By: #### C BC, BMP #### [place] [address] [place] Glucose [Mass/volume] in Ser um or PlasmaOrdered By: Meagan Roman on 08-15-2023 Glucose [Mass/Vol] 98 mg/dL Normal 70-100 [facility] Comment on above: ADA recommended refe rence rangeRandom Glucose Reference Range is dependent on time and content of last meal. Glucose of more than 200 mg/dL in a nonstressed, ambulatory subject supports the diagnosis of Diabetes Mellitus. Result Comment: [place] Glucose Reference Range is dependent on time and content of last meal. Glucose of more than 200 mg/dL in a nonstressed, ambulatory subject supports the diagnosis of Diabetes Mellitus. ADA recommended reference range Performed By: #### C BC, TIBC, RADHA, [id number], FE, CMP #### [facility] [address] [place] [address] Hematocrit [Volume Fraction] of Blood by Automated countOrdered By: Meagan Roman on 08-15-2023 Hematocrit (Bld) [Volume fraction] 27.3 % Low 34.0-46.4 [facility] Comment on above: Result Comment: PERF ORMED BY: [place] [address] PATHOLOGIST KILN CLEANER LATONIA BRAND M.D. Performed By: #### H H #### [address] Hemoglobin [Mass/volume] in BloodOrdered By: Meagan Roman on 08-15-2023 Hemoglobin (Bld) [Mass/Vol] 9.1 g/dL Low 11.8-15.4 [facility] Comment on above: Performed By: #### H H #### [address] Aroldo 08-15-2023 L Specimen: [id number] Received: 08/15/23 Status: EMILY Reviolet Num: [id number] Spec Type: Surgical Subm Dr: Kuldeep Almazan MD Tissues: A GASTRIC FOR HP (GASTRIC HP) Procedures: HE/2, Gross/Micro L4, H PYLORI, IHC First AB Age/ Patient Sex Location Account Attending Physician Malgorzata Simmons 77/F 3T [id number] Meagan Roman MD SPEC NUM: [id number] RECD: 08/15/23 STATUS: EMILY [place] NUM: [id number] ALEXUS: 08/15/23- SUBM DR: Kuldeep Almazan MD ENTERED: 08/15/231003 [facility] DR: SPEC TYPE: Surgical DEPT: S ORDERED: [...] cm, entirely submitted in A1. CPT Codes 40044 33663 Specimen: [id number] Received: 08/15/23 Status: EMILY [place] Num: [id number] Spec Type: Surgical Subm Dr: Kuldeep Almazan MD Tissues: A GASTRIC FOR HP (GASTRIC HP) Procedures: HE/2, Gross/Micro L4, H PYLORI, IHC First AB Patient: Malgorzata Simmons [id number] (Continued) Signed (signature on file) Riya Blanco MD 08/16/23 1618 Normal [facility] Leukocytes [#/volume] correc azul for nucleated erythrocytes in Blood by Automated counOrdered By: Meagan Roman on 08-15-2023 WBC corrected for nucl RBC Auto (Bld) [#/Vol] 4.9 10*3/uL 3.8-11.6 [facility] Leukocytes [#/volume] in Blo od by Automated countOrdered By: Meagan Roman on 08-15-2023 WBC (Bld) [#/Vol] 4.9 10*3/uL Normal 3.8-11.6 [facility] Comment on above: Performed By: #### C BC, BMP #### [facility] [address] [place] [address] [place] Lymphocytes [#/volume] in Bl ood by Automated countOrdered By: Meagan Roman on 08-15-2023 Lymphocytes (Bld) [#/Vol] 1.3 10*3/uL Normal 1.00-4.8 [facility] Comment on above: Performed By: #### C BC, BMP #### [facility] [address] [id number] [place] Lymphocytes/100 leukocytes i n Blood by Automated countOrdered By: Meagan Roman on 08-15-2023 Lymphocytes/100 WBC (Bld) 26.9 % Normal . [facility] Comment on above: Performed By: #### C BC, BMP #### [facility] [facility] [address] [id number] [place] MCH [Entitic mass] by Automa azul countOrdered By: Meagan Roman on 08-15-2023 MCH (RBC) [Entitic mass] 29.5 pg Normal 24.7-34.3 [facility] Comment on above: Performed By: #### C BC, BMP #### [address] MCHC Auto (RBC) [Mass/Vol]Or dered By: Meagan Roman on 08-15-2023 MCHC (RBC) [Mass/Vol] 33.6 g/dL 32.0-35.0 [facility] MCV [Entitic volume] by Auto mated countOrdered By: Meagan Roman on 08-15-2023 MCV (RBC) [Entitic vol] 87.6 fL Normal 80-100 F [facility] Comment on above: Performed By: #### C LIVE, BMP #### [address] Neutrophils [#/volume] in Bl ood by Automated countOrdered By: Meagan Roman on 08-15-2023 Neutrophils (Bld) [#/Vol] 2.8 10*3/uL Normal 1.8-7.7 [facility] Comment on above: Performed By: #### C LIVE, BMP #### [address] No Panel InformationOrdered By: Meagan Roman on 08-15-2023 Estimated GFR (CKD-EPI) 43.688 mL/Min [facility] Creatinine Clearance (Chem 37.31 [facility] Nucleated erythrocytes [Pres ence] in Blood by Automated countOrdered By: Meagan Roman on 08-15-2023 Nucleated RBC Auto Ql (Bld) 0.1 /100{WBC} 0-0.5 [facility] Platelet mean volume [Entiti c volume] in Blood by Automated countOrdered By: Meagan Roman on 08-15-2023 Platelet mean volume (Bld) [Entitic vol] 8.3 fL Normal 6.3-10.7 [facility] Comment on above: Performed By: #### C BC, BMP #### [address] Platelets [#/volume] in Bloo d by Automated countOrdered By: Meagan Roman on 08-15-2023 Platelets (Bld) [#/Vol] 273 10*3/uL Normal 150-450 [facility] Comment on above: Performed By: #### C BC, BMP #### [place] [address] [place] Potassium [Moles/volume] in Serum or PlasmaOrdered By: Meagan Roman on 08-15-2023 Potassium [Moles/Vol] 5.0 mmol/L Normal 3.5-5.1 [facility] Comment on above: Performed By: #### C BC, TIBC, RADHA, [id number], FE, CMP #### [address] Serum or plasma anion gap de terminationOrdered By: Meagan Roman on 08-15-2023 Anion gap [Moles/Vol] 12.5 mmol/L Normal 6.0-15.0 [facility] Comment on above: Performed By: #### C BC, TIBC, RADHA, [id number], FE, CMP #### [address] Sodium [Moles/volume] in Ser um or PlasmaOrdered By: Meagan Roman on 08-15-2023 Sodium [Moles/Vol] 139 mmol/L Significant change down 136-145 [facility] Comment on above: Delta: 131 on -1754 Performed By: #### C BC, TIBC, RADHA, [id number], FE, CMP #### [facility] [address] [place] [address] [place] Urea nitrogen [Mass/volume] in Serum or PlasmaOrdered By: Meagan Roman on 08-15-2023 Urea nitrogen [Mass/Vol] 27 mg/dL High 7-25 [facility] Comment on above: Performed By: #### C BC, TIBC, RADHA, [id number], FE, CMP #### [facility] [address] [place] [address] ABO/Rh Retypeon 08-14-2023 ABO/RH Recheck Result Negative Normal [facility] Comment on above: Result Comment: PERF ORMED BY: [place] [address] PATHOLOGIST [employer]IL[employer] CLE[employer]ER LATONIA BRAND M.D. Alanine aminotransferase [En zymatic activity/volume] in Serum or PlasmaOrdered By: Liliana Kaba on 08-14-2023 ALT [Catalytic activity/Vol] 6 U/L Low 7-52 [facility] Comment on above: Performed By: #### C BC, TIBC, RADHA, [id number], FE, CMP #### [address] Albumin [Mass/volume] in Ser um or Plasma by Bromocresol green (BCG) dye binding methoOrdered By: Liliana Kaba on 08-14-2023 Albumin BCG dye [Mass/Vol] 4.5 g/dL 3.5-5.7 [facility] Alkaline phosphatase [Enzyma tic activity/volume] in Serum or PlasmaOrdered By: Liliana Kaba on 08-14-2023 ALP [Catalytic activity/Vol] 55 U/L Normal 34-104 [facility] Comment on above: Performed By: #### C BC, TIBC, RADHA, [id number], FE, CMP #### [facility] [address] [place] [address] Aspartate aminotransferase [ Enzymatic activity/volume] in Serum or PlasmaOrdered By: Liliana Kaba on 08-14-2023 AST [Catalytic activity/Vol] 12 U/L Low 13-39 [facility] Comment on above: Performed By: #### C BC, TIBC, RADHA, [id number], FE, CMP #### [facility] [address] [place] [address] Automated basophil %Ordered By: PROVIDER TEMP on 08-14-2023 Basophils/100 WBC (Bld) 0.7 % Normal . [facility] Comment on above: Performed By: #### C BC, TIBC, RADHA, [id number], FE, CMP #### [address] Automated basophil countOrde red By: PROVIDER TEMP on 08-14-2023 Basophils (Bld) [#/Vol] 0.1 10*3/uL Normal 0.0-0.2 [facility] Comment on above: Result Comment: PERF ORMED BY: [place] [address] PATHOLOGIST K[employer]ER LATONIA BRAND M.D. Performed By: #### C BC, TIBC, RADHA, [id number], FE, CMP #### [address] Automated blood monocyte cou ntOrdered By: PROVIDER TEMP on 08-14-2023 Monocytes (Bld) [#/Vol] 0.5 10*3/uL Normal 0.0-0.8 [facility] Comment on above: Performed By: #### C BC, TIBC, RADHA, [id number], FE, CMP #### [address] Automated eosinophil %Ordere d By: PROVIDER TEMP on 08-14-2023 Eosinophils/100 WBC (Bld) 3.3 % Normal . [facility] Comment on above: Performed By: #### C BC, TIBC, RAHDA, [id number], FE, CMP #### [address] Automated eosinophil countOr dered By: PROVIDER TEMP on 08-14-2023 Eosinophils (Bld) [#/Vol] 0.3 10*3/uL Normal 0.0-0.45 [facility] Comment on above: Performed By: #### C BC, TIBC, RADHA, [id number], FE, CMP #### [address] Automated monocyte %Ordered By: PROVIDER TEMP on 08-14-2023 Monocytes/100 WBC (Bld) 6.8 % Normal . [facility] Comment on above: Performed By: #### C BC, TIBC, RADHA, [id number], FE, CMP #### [facility] [address] Automated neutrophil %Ordere d By: PROVIDER TEMP on 08-14-2023 Neutrophils/100 WBC (Bld) 70.0 % Normal . [facility] Comment on above: Performed By: #### C BC, TIBC, RADHA, [id number], FE, CMP #### [facility] [address] Bilirubin.total [Mass/volume ] in Serum or PlasmaOrdered By: Liliana Kaba on 08-14-2023 Bilirubin [Mass/Vol] 0.3 mg/dL Normal 0.3-1.0 [facility] Comment on above: Performed By: #### C BC, TIBC, RADHA, [id number], FE, CMP #### [facility] [address] [place] [address] [place] Calcium [Mass/volume] in Ser um or PlasmaOrdered By: PROVIDER TEMP on 08-14-2023 Calcium [Mass/Vol] 8.7 mg/dL Normal 8.6-10.3 [facility] Comment on above: Performed By: #### C BC, TIBC, RADHA, [id number], FE, CMP #### [facility] [address] Carbon dioxide, total [Moles /volume] in Serum or PlasmaOrdered By: PROVIDER TEMP on 08-14-2023 CO2 [Moles/Vol] 23.7 mmol/L Normal 21.0-31.0 [facility] Comment on above: Performed By: #### C BC, TIBC, RADHA, [id number], FE, CMP #### [facility] [address] [place] [address] [place] Chloride [Moles/volume] in S matthew or PlasmaOrdered By: PROVIDER TEMP on 08-14-2023 Chloride [Moles/Vol] 100 mmol/L Normal 98-107 [facility] Comment on above: Performed By: #### C BC, TIBC, RADHA, [id number], FE, CMP #### [address] Complete Blood Count Auto Di ffon 08-14-2023 Mean Corpuscular HGB Conc 33.6 g/dL Normal 32.0-35.0 [facility] Comment on above: Performed By: #### C BC, TIBC, RADHA, [id number], FE, CMP #### [address] Monocytes/100 WBC (Bld) 15.64 % Normal 0.00-20.00 [facility] Comment on above: Performed By: #### C BC, TIBC, RADHA, [id number], FE, CMP #### [address] NRBC% 0.1 /100{WBC} Normal 0-0.5 [facility] Comment on above: Performed By: #### C BC, TIBC, RADHA, [id number], FE, CMP #### [address] Comprehensive Metabolic Pane aroldo 08-14-2023 Albumin [Mass/Vol] 4.5 g/dL Normal 3.5-5.7 [facility] Comment on above: Performed By: #### C BC, TIBC, RADHA, [id number], FE, CMP #### [address] Creatinine Clr Calc Pharmacy 33.40 Normal [facility] Comment on above: Result Comment: PERF ORMED BY: [place] [address] PATHOLOGIST KIL[employer] CLE[employer]ER LATONIA BRAND M.D. Performed By: #### C BC, TIBC, RADHA, [id number], FE, CMP #### [address] GFR/1.73 sq M.predicted MDRD (S/P/Bld) [Vol rate/Area] 38.248 mL/min/{1.73_m2} Normal [facility] Comment on above: Performed By: #### C BC, TIBC, RADHA, [id number], FE, CMP #### [facility] [address] Creatinine [Mass/volume] in Serum or PlasmaOrdered By: PROVIDER TEMP on 08-14-2023 Creatinine [Mass/Vol] 1.43 mg/dL High 0.60-1.20 [facility] Comment on above: Performed By: #### C BC, TIBC, RADHA, [id number], FE, CMP #### [facility] [address] ECG 12 lead ECGon 08-14-2023 ECG 12 lead ECG [facility] [place] [address] [place] [address] Electrocardiograph Report Signed Patient: Malgorzata Simmons MR#: [id number] : 1945 Acct:[id number] Age/Sex: 77 / F ADM Date: 08/14/23 Loc: Room: [address] [place] [address] Type: ADM INOo Attending Dr: Meagan Roman [...] ECGs available Confirmed by LILIANA KABA DO ([id number]) on 08/15/2023 1:51:01 AM Referred By: Electronically Signed By:LILIANA KABA DO Transcribed By: MUS Signed By Liliana Kaba DO 08/14 0151 Normal [facility] Erythrocyte distribution wid th Auto (RBC) [Ratio]on 08-14-2023 Erythrocyte distribution width (RBC) [Ratio] 14.0 % 11.0-15.0 [facility] Erythrocyte distribution wid th [Ratio] by Automated countOrdered By: PROVIDER TEMP on 08-14-2023 Erythrocyte distribution width (RBC) [Ratio] 14.6 % Normal 11.9-15.3 [facility] Comment on above: Performed By: #### C BC, TIBC, RADHA, [id number], FE, CMP #### [facility] [address] Erythrocytes [#/volume] in B lood by Automated countOrdered By: PROVIDER TEMP on 08-14-2023 RBC (Bld) [#/Vol] 2.57 10*6/uL Low 3.60-5.00 [facility] Comment on above: Performed By: #### C BC, TIBC, RADHA, [id number], FE, CMP #### [facility] [address] Estimated glomerular filtrat ion rate (GFR) non- Americanon 08-14-2023 GFR/1.73 sq M.predicted among non-blacks MDRD (S/P/Bld) [Vol rate/Area] 35 mL/min/{1.73_m2} Low >=60 [facility] Fecal occult blood detection by immunochemistryOrdered By: Liliana Kaba on 08-14-2023 Hemoglobin.gastrointestin al Ql (Stl) [facility] Ferritin [Mass/volume] in Se rum or PlasmaOrdered By: Liliana Kaba on 08-14-2023 Ferritin [Mass/Vol] 116.6 ng/mL Normal 11.0-306.8 [facility] Comment on above: Performed By: #### C BC, TIBC, RADHA, [id number], FE, CMP #### [facility] [address] Folate [Mass/volume] in Seru m or PlasmaOrdered By: Liliana Kaba on 08-14-2023 Folate [Mass/Vol] 27.0 ng/mL >5.9 [facility] Comment on above: Folate reference ran ge: >5.9 ng/mlThe WHO technical consultation on folate and vitamin [id number] has determined that folate concentrations lessthan 4 ng/ml are considered deficient. Glucose [Mass/volume] in Ser um or PlasmaOrdered By: PROVIDER TEMP on 08-14-2023 Glucose [Mass/Vol] 94 mg/dL Normal 70-100 [facility] Comment on above: ADA recommended refe rence rangeRandom Glucose Reference Range is dependent on time and content of last meal. Glucose of more than 200 mg/dL in a nonstressed, ambulatory subject supports the diagnosis of Diabetes Mellitus. Result Comment: [place] Glucose Reference Range is dependent on time and content of last meal. Glucose of more than 200 mg/dL in a nonstressed, ambulatory subject supports the diagnosis of Diabetes Mellitus. ADA recommended reference range Performed By: #### C BC, TIBC, RADHA, [id number], FE, CMP #### [facility] [address] Hematocrit Auto (Bld) [Volum e fraction]on 08-14-2023 Hematocrit (Bld) [Volume fraction] 23.4 % Low 36.0-48.0 [facility] Comment on above: RESULTS CALLED TO [facility] Hematocrit [Volume Fraction] of Blood by Automated countOrdered By: PROVIDER TEMP on 08-14-2023 Hematocrit (Bld) [Volume fraction] 22.9 % Low 34.0-46.4 [facility] Comment on above: Performed By: #### C BC, TIBC, RADHA, [id number], FE, CMP #### [facility] [address] Hemoglobin [Mass/volume] in BloodOrdered By: PROVIDER TEMP on 08-14-2023 Hemoglobin (Bld) [Mass/Vol] 7.7 g/dL Low 11.8-15.4 [facility] Comment on above: Performed By: #### C BC, TIBC, RADHA, [id number], FE, CMP #### [facility] [address] [place] [address] [place] Hemoglobin [Mass/volume] in Bloodon 08-14-2023 Hemoglobin (Bld) [Mass/Vol] 7.2 g/dL Low 12.0-16.0 [facility] Iron [Mass/volume] in Serum or PlasmaOrdered By: Liliana Kaba on 08-14-2023 Iron [Mass/Vol] 29 ug/dL Low 50-212 [facility] Comment on above: Performed By: #### C BC, TIBC, RADHA, [id number], FE, CMP #### [facility] [address] Iron binding capacity [Mass/ volume] in Serum or PlasmaOrdered By: Liliana Kaba on 08-14-2023 Iron binding capacity [Mass/Vol] 272 ug/dL 255-450 [facility] Iron binding capacity [Mass/ volume] in Serum or Plasmaon 08-14-2023 Iron binding capacity [Mass/Vol] 241.0 ug/dL Low 250.0-450.0 [facility] Iron saturation [Mass Fracti on] in Serum or Plasmaon 08-14-2023 Iron saturation [Mass fraction] 13.3 % [facility] - Chemistry and C hemistry - challengeon 08-14-2023 Albumin [Mass/Vol] 3.6 g/dL 3.4-5.0 [facility] Calcium [Mass/Vol] 8.4 mg/dL Low 8.5-10.1 [facility] Chloride [Moles/Vol] 101 mmol/L 98-107 [facility] CO2 [Moles/Vol] 23.8 mmol/L 21.0-32.0 [facility] Creatinine [Mass/Vol] 1.47 mg/dL High 0.55-1.02 [facility] Ferritin [Mass/Vol] 154.0 ng/mL 8.0-252.0 [facility] GFR/1.73 sq M.predicted MDRD (S/P/Bld) [Vol rate/Area] 42 mL/min/{1.73_m2} Low >=60 [facility] Glucose [Mass/Vol] 98 mg/dL 74-106 [facility] Iron [Mass/Vol] 32.0 ug/dL Low 50.0-170.0 [facility] Potassium [Moles/Vol] 5.3 mmol/L High 3.5-5.1 [facility] Sodium [Moles/Vol] 134 mmol/L Low 136-145 [facility] Urea nitrogen [Mass/Vol] 30.0 mg/dL High 7.0-18.0 [facility] Urea nitrogen/Creatinine [Mass ratio] 20.4 mg/mg [facility] LeukoReduced RBCon LeukoReduced RBC TRANSFUSED 08/14/23 2303 Normal [facility] Leukocytes [#/volume] correc azul for nucleated erythrocytes in Blood by Automated counOrdered By: PROVIDER TEMP on 08-14-2023 WBC corrected for nucl RBC Auto (Bld) [#/Vol] 7.7 10*3/uL 3.8-11.6 [facility] Leukocytes [#/volume] correc azul for nucleated erythrocytes in Blood by Automated counon 08-14-2023 WBC corrected for nucl RBC Auto (Bld) [#/Vol] 6.0 10 3/uL 4.0-11.0 [facility] Leukocytes [#/volume] in Blo od by Automated countOrdered By: PROVIDER TEMP on 08-14-2023 WBC (Bld) [#/Vol] 7.7 10*3/uL Normal 3.8-11.6 [facility] Comment on above: Performed By: #### C BC, TIBC, RADHA, [id number], FE, CMP #### [facility] [address] [place] [address] Lymphocytes [#/volume] in Bl ood by Automated countOrdered By: PROVIDER TEMP on 08-14-2023 Lymphocytes (Bld) [#/Vol] 1.5 10*3/uL Normal 1.00-4.8 [facility] Comment on above: Performed By: #### C BC, TIBC, RADHA, [id number], FE, CMP #### [facility] [address] [place] [address] [place] Lymphocytes/100 leukocytes i n Blood by Automated countOrdered By: PROVIDER TEMP on 08-14-2023 Lymphocytes/100 WBC (Bld) 19.2 % Normal . [facility] Comment on above: Performed By: #### C BC, TIBC, RADHA, [id number], FE, CMP #### [facility] [address] MCH Auto (RBC) [Entitic mass ]on 08-14-2023 MCH (RBC) [Entitic mass] 28.9 pg 26.7-34.0 [facility] MCH [Entitic mass] by Automa azul countOrdered By: PROVIDER TEMP on 08-14-2023 MCH (RBC) [Entitic mass] 29.9 pg Normal 24.7-34.3 [facility] Comment on above: Performed By: #### C BC, TIBC, RADHA, [id number], FE, CMP #### [facility] [address] MCHC Auto (RBC) [Mass/Vol]Or dered By: PROVIDER TEMP on 08-14-2023 MCHC (RBC) [Mass/Vol] 33.6 g/dL 32.0-35.0 [facility] MCHC Auto (RBC) [Mass/Vol]on 08-14-2023 MCHC (RBC) [Mass/Vol] 30.8 g/dL 29.9-35.2 [facility] MCV Auto (RBC) [Entitic vol] on 08-14-2023 MCV (RBC) [Entitic vol] 94.0 fL 81.0-99.0 F [facility] MCV [Entitic volume] by Auto mated countOrdered By: PROVIDER TEMP on 08-14-2023 MCV (RBC) [Entitic vol] 89.1 fL Normal 80-100 F [facility] Comment on above: Performed By: #### C BC, TIBC, RADHA, [id number], FE, CMP #### [facility] [address] Monocyte distribution width [Entitic volume] in Blood by AutomatedOrdered By: PROVIDER TEMP on 08-14-2023 Monocyte distribution width Auto (Bld) [Entitic vol] 15.64 % 0.00-20.00 [facility] Neutrophils [#/volume] in Bl ood by Automated countOrdered By: PROVIDER TEMP on 08-14-2023 Neutrophils (Bld) [#/Vol] 5.4 10*3/uL Normal 1.8-7.7 [facility] Comment on above: Performed By: #### C BC, TIBC, RADHA, [id number], FE, CMP #### [facility] [address] [place] [address] No Panel InformationOrdered By: PROVIDER TEMP on 08-14-2023 Estimated GFR (CKD-EPI) 38.248 mL/Min [facility] Creatinine Clearance (Chem 33.40 [facility] No Panel Informationon 08-13 Phosphorus Level 4.3 mg/dL 2.6-4.7 [facility] Nucleated erythrocytes [Pres ence] in Blood by Automated countOrdered By: PROVIDER TEMP on 08-14-2023 Nucleated RBC Auto Ql (Bld) 0.1 /100{WBC} 0-0.5 [facility] Platelet mean volume Auto (B ld) [Entitic vol]on 08-14-2023 Platelet mean volume (Bld) [Entitic vol] 10.0 fL 9.5-13.5 [facility] Platelet mean volume [Entiti c volume] in Blood by Automated countOrdered By: PROVIDER TEMP on 08-14-2023 Platelet mean volume (Bld) [Entitic vol] 8.3 fL Normal 6.3-10.7 [facility] Comment on above: Performed By: #### C BC, TIBC, RADHA, [id number], FE, CMP #### [facility] [address] [place] [address] Platelets Auto (Bld) [#/Vol] on 08-14-2023 Platelets (Bld) [#/Vol] 290 10 3/uL 150-450 [facility] Platelets [#/volume] in Bloo d by Automated countOrdered By: PROVIDER TEMP on 08-14-2023 Platelets (Bld) [#/Vol] 291 10*3/uL Normal 150-450 [facility] Comment on above: Performed By: #### C BC, TIBC, RADHA, [id number], FE, CMP #### [facility] [address] [place] [address] Potassium [Moles/volume] in Serum or PlasmaOrdered By: PROVIDER TEMP on 08-14-2023 Potassium [Moles/Vol] 5.1 mmol/L Normal 3.5-5.1 [facility] Comment on above: Performed By: #### C BC, TIBC, RADHA, [id number], FE, CMP #### [facility] [address] Protein [Mass/volume] in Ser um or PlasmaOrdered By: Liliana Kaba on 08-14-2023 Protein [Mass/Vol] 7.2 g/dL Normal 6.4-8.9 [facility] Comment on above: Performed By: #### C BC, TIBC, RADHA, [id number], FE, CMP #### [facility] [address] [place] [address] RBC Auto (Bld) [#/Vol]on RBC (Bld) [#/Vol] 2.49 10 6/uL Low 4.20-5.40 [facility] Serum globulin measurement b y calculation (mass/volume)Ordered By: Liliana Kaba on 08-14-2023 Globulin (S) [Mass/Vol] 2.7 g/dL Normal [facility] Comment on above: Performed By: #### C BC, TIBC, RADHA, [id number], FE, CMP #### [facility] [address] [place] [address] Serum or plasma albumin/glob ulin mass ratioOrdered By: Liliana Kaba on 08-14-2023 Albumin/Globulin [Mass ratio] 1.7 {ratio} Normal [facility] Comment on above: Performed By: #### C BC, TIBC, RADHA, [id number], FE, CMP #### [facility] [address] [place] [address] Serum or plasma anion gap de terminationOrdered By: PROVIDER TEMP on 08-14-2023 Anion gap [Moles/Vol] 12.4 mmol/L Normal 6.0-15.0 [facility] Comment on above: Performed By: #### C BC, TIBC, RADHA, [id number], FE, CMP #### [address] Serum or plasma anion gap de terminationon 08-14-2023 Anion gap [Moles/Vol] 14.5 mmol/L [facility] Sodium [Moles/volume] in Ser um or PlasmaOrdered By: PROVIDER TEMP on 08-14-2023 Sodium [Moles/Vol] 131 mmol/L Low 136-145 [facility] Comment on above: Performed By: #### C BC, TIBC, RADHA, [id number], FE, CMP #### [address] Stool Occult Blood (Guaiac)o n 08-14-2023 Stool Occult Blood (Guaiac) Occult Blood Positive for Occult Blood by Guaiac Methodology Reference range = Negative PERFORMED BY: [place] [address] PATHOLOGIST KILN CLEANER LATONIA BRAND M.D. Normal [facility] Comment on above: Performed By: #### C BC, TIBC, RADHA, [id number], FE, CMP #### [address] Total Iron Binding Capacityo n 08-14-2023 Total Iron Binding Capacity 272 ug/dL Normal 255-450 [facility] Comment on above: Performed By: #### C BC, TIBC, RADHA, [id number], FE, CMP #### [address] Transferrin [Mass/volume] in Serum or PlasmaOrdered By: Liliana Kaba on 08-14-2023 Transferrin [Mass/Vol] 194 mg/dL Low 203-362 [facility] Comment on above: Performed By: #### C BC, TIBC, RADHA, [id number], FE, CMP #### [address] Type and Screenon 08-14-2023 ABO and Rh group Nom (Bld) Blood group A Rh(D) negative Normal [facility] Comment on above: Order Comment: Trans fuse now? Y Number of units to transfuse now? 1 Result Comment: PERF ORMED BY: [place] [address] PATHOLOGIST KILN CLEANER LATONIA BRAND M.D. Urea nitrogen [Mass/volume] in Serum or PlasmaOrdered By: PROVIDER TEMP on 08-14-2023 Urea nitrogen [Mass/Vol] 31 mg/dL High 7-25 [facility] Comment on above: Performed By: #### C BC, TIBC, RADHA, [id number], FE, CMP #### [address] Vit. B12/Folate Profileon Folate 27.0 ng/mL Normal >5.9 [facility] Comment on above: Result Comment: Audra te reference range: >5.9 ng/ml The WHO technical consultation on folate and vitamin b12 deficiencies has determined that folate concentrations less than 4 ng/ml are considered deficient. PERFORMED BY: [place] [address] PATHOLOGIST KILN CLEANER LATONIA BRAND M.D. Performed By: #### C BC, TIBC, RADHA, [id number], FE, CMP #### [place] [id number] [facility] Vitamin B12 ser/plasOrdered By: Liliana Kaba on 08-14-2023 Cobalamin (Vitamin B12) [Mass/Vol] 457 pg/mL Normal 180-914 [facility] Comment on above: Performed By: #### C BC, TIBC, RADHA, [id number], FE, CMP #### [place] [id number] [facility] BASIC METABOLIC PANLon 07-19 Anion gap [Moles/Vol] 10 mmol/L Normal 5-15 [facility] Comment on above: Performed By: #### C BCA, BMP, LIVR, 78890-2, 3016-3, 70900-1 #### [facility] ([id number]) [address], [address] [place] [address] Calcium [Mass/Vol] 9.3 mg/dL Normal 8.5-10.5 [facility] Comment on above: Performed By: #### C BCA, BMP, LIVR, 57549-1, 3016-3, 64941-8 #### [facility] ([id number]) [address], [address] [place] [address] Chloride [Moles/Vol] 107 mmol/L Normal 98-109 [facility] Comment on above: Performed By: #### C BCA, BMP, LIVR, 29358-3, 3016-3, 90466-6 #### [facility] ([id number]) [address], [address] [place] [address] CO2 [Moles/Vol] 22 mmol/L Normal 22-32 [facility] Comment on above: Performed By: #### C BCA, BMP, LIVR, 41049-4, 3016-3, 30962-7 #### [facility] ([id number]) [address], [address] [place] [address] Creatinine [Mass/Vol] 1.38 mg/dL High 0.40-1.00 [facility] Comment on above: Result Comment: METH OD TRACEABLE TO IDMS STANDARD Performed By: #### C BCA, BMP, LIVR, 36756-5, 3016-3, 96832-2 #### [facility] ([id number]) [address], [address] [place] [address] GFR/1.73 sq M.predicted among non-blacks MDRD (S/P/Bld) [Vol rate/Area] 40 mL/min/{1.73_m2} Low >[address] [facility] Comment on above: Result Comment: Reported eGFR is based on the CKD-EPI 2021 equation that does not use a race coefficient. Performed By: #### C BCA, BMP, LIVR, 51949-6, 3016-3, 10077-8 #### [facility] ([id number]) [address], [address] [place] [address] Glucose [Mass/Vol] 144 mg/dL High 65-99 [facility] Comment on above: Performed By: #### C BCA, BMP, LIVR, 56372-7, 3016-3, 30328-2 #### [facility] ([id number]) [address], [facility] [address] [place] [address] Potassium [Moles/Vol] 5.3 mmol/L High 3.5-5.0 [facility] Comment on above: Performed By: #### C BCA, BMP, LIVR, 60795-8, 3016-3, 20459-1 #### [facility] ([id number]) [address], [address] [place] [address] Sodium [Moles/Vol] 139 mmol/L Normal 134-146 [facility] Comment on above: Performed By: #### C BCA, BMP, LIVR, 28721-2, 3016-3, 54734-7 #### [facility] ([id number]) [address], [address] [place] [address] Urea nitrogen [Mass/Vol] 22 mg/dL Normal 5-27 [facility] Comment on above: Performed By: #### C BCA, BMP, LIVR, 11409-5, 3016-3, 96108-4 #### [facility] ([id number]) [address], [address] [place] [address] BASIC METABOLIC PANLon 07-18 Anion gap [Moles/Vol] 10 mmol/L Normal 5-15 [facility] Comment on above: Performed By: #### C BCA, BMP, LIVR, 14607-1, 3016-3, 50080-9 #### [facility] ([id number]) [address], [address] [place] [address] Calcium [Mass/Vol] 9.0 mg/dL Normal 8.5-10.5 [facility] Comment on above: Performed By: #### C BCA, BMP, LIVR, 13363-8, 3016-3, 29350-6 #### [facility] ([id number]) [address], [address] [place] [address] Chloride [Moles/Vol] 108 mmol/L Normal 98-109 [facility] Comment on above: Performed By: #### C BCA, BMP, LIVR, 97929-8, 3016-3, 92330-9 #### [facility] ([id number]) [address], [address] [place] [address] CO2 [Moles/Vol] 23 mmol/L Normal 22-32 [facility] Comment on above: Performed By: #### C BCA, BMP, LIVR, 89124-2, 3016-3, 84479-0 #### [facility] ([id number]) [address], [address] [place] [address] Creatinine [Mass/Vol] 1.60 mg/dL High 0.40-1.00 [facility] Comment on above: Result Comment: METH OD TRACEABLE TO IDMS STANDARD Performed By: #### C BCA, BMP, LIVR, 77417-8, 3016-3, 32089-9 #### [facility] ([id number]) [address], [address] [place] [address] GFR/1.73 sq M.predicted among non-blacks MDRD (S/P/Bld) [Vol rate/Area] 33 mL/min/{1.73_m2} Low >[address] [facility] Comment on above: Result Comment: Reported eGFR is based on the CKD-EPI 2020 equation that does not use a race coefficient. Performed By: #### C BCA, BMP, LIVR, 39020-2, 3016-3, 30579-1 #### [facility] ([id number]) [address], [address] [place] [address] Glucose [Mass/Vol] 135 mg/dL High 65-99 [facility] Comment on above: Performed By: #### C BCA, BMP, LIVR, 44348-9, 3016-3, 61262-0 #### [facility] ([id number]) [address], [address] [place] [address] Potassium [Moles/Vol] 4.8 mmol/L Normal 3.5-5.0 [facility] Comment on above: Performed By: #### C BCA, BMP, LIVR, 65634-1, 3016-3, 21145-1 #### [facility] ([id number]) [address], [address] [place] [address] Sodium [Moles/Vol] 141 mmol/L Normal 134-146 [facility] Comment on above: Performed By: #### C BCA, BMP, LIVR, 02120-2, 3016-3, 14732-7 #### [facility] ([id number]) [address], [address] [place] [address] Urea nitrogen [Mass/Vol] 27 mg/dL Normal 5-27 [facility] Comment on above: Performed By: #### C BCA, BMP, LIVR, 08018-7, 3016-3, 22450-0 #### [facility] ([id number]) [address], [address] [place] [address] MAGNESIUMon 07-19-2023 Magnesium [Mass/Vol] 2.1 mg/dL Normal 1.8-2.6 [facility] Comment on above: Performed By: #### C BCA, BMP, LIVR, 69629-8, 3016-3, 37183-4 #### [facility] ([id number]) [address], [address] [place] [address] Natriuretic peptide B [Mass/ Vol]on 07-19-2023 Natriuretic peptide B (Bld) [Mass/Vol] 156 pg/mL High <100.0 [facility] Comment on above: Performed By: #### C BCA, BMP, LIVR, 22137-3, 3016-3, 96673-3 #### [facility] ([id number]) [address], [address] [place] [address] POTASSIUMon 07-19-2023 Potassium [Moles/Vol] 4.7 mmol/L Normal 3.5-5.0 [facility] Comment on above: Performed By: #### C BCA, BMP, LIVR, 60715-2, 3016-3, 43074-3 #### [facility] ([id number]) [address], [address] [place] [address] Troponin I.cardiac High sens itivity method [Mass/Vol]on 07-19-2023 1 HOUR TROP I, HIGH SENSITIVITY 4 ng/L Normal <16 [facility] Comment on above: Performed By: #### C BCA, BMP, LIVR, 24244-7, 3016-3, 94067-2 #### [facility] ([id number]) [address] [address] [place] [address] TROPONIN I, HIGH SENSITIVITY 4 ng/L Normal <16 [facility] Comment on above: Performed By: #### C BCA, BMP, LIVR, 44858-9, 3016-3, 53126-7 #### [facility] ([id number]) [address] [address] [place] [address] XR KNEE RT 1 OR 2 VWSon [...] Ngo MD on 07/19/2023 12:38 PM Normal [facility] Erythrocyte distribution wid th Auto (RBC) [Ratio]on 07-06-2023 Erythrocyte distribution width (RBC) [Ratio] 13.2 % 11.0-15.0 [facility] Estimated glomerular filtrat ion rate (GFR) non- Americanon 07-06-2023 GFR/1.73 sq M.predicted among non-blacks MDRD (S/P/Bld) [Vol rate/Area] 34 mL/min/{1.73_m2} Low >=60 [facility] Hematocrit Auto (Bld) [Volum e fraction]on 07-06-2023 Hematocrit (Bld) [Volume fraction] 30.0 % Low 36.0-48.0 [facility] Hemoglobin [Mass/volume] in Bloodon 07-06-2023 Hemoglobin (Bld) [Mass/Vol] 9.5 g/dL Low 12.0-16.0 [facility] Iron binding capacity [Mass/ volume] in Serum or Plasmaon 07-06-2023 Iron binding capacity [Mass/Vol] 250.0 ug/dL 250.0-450.0 [facility] Iron saturation [Mass Fracti on] in Serum or Plasmaon 07-06-2023 Iron saturation [Mass fraction] 26.8 % [facility] Laboratory - Chemistry and C hemistry - challengeon 07-06-2023 Albumin [Mass/Vol] 4.3 g/dL 3.4-5.0 [facility] Calcium [Mass/Vol] 9.5 mg/dL 8.5-10.1 [facility] Chloride [Moles/Vol] 105 mmol/L 98-107 [facility] CO2 [Moles/Vol] 25.2 mmol/L 21.0-32.0 [facility] Creatinine [Mass/Vol] 1.49 mg/dL High 0.55-1.02 [facility] Ferritin [Mass/Vol] 172.0 ng/mL 8.0-252.0 [facility] GFR/1.73 sq M.predicted MDRD (S/P/Bld) [Vol rate/Area] 41 mL/min/{1.73_m2} Low >=60 [facility] Glucose [Mass/Vol] 107 mg/dL High 74-106 [facility] Iron [Mass/Vol] 67.0 ug/dL 50.0-170.0 [facility] Magnesium [Mass/Vol] 2.1 mg/dL 1.8-2.4 [facility] Potassium [Moles/Vol] 5.6 mmol/L High 3.5-5.1 [facility] Sodium [Moles/Vol] 139 mmol/L 136-145 [facility] Urate [Mass/Vol] 6.9 mg/dL High 2.6-6.0 [facility] Urea nitrogen [Mass/Vol] 25.0 mg/dL High 7.0-18.0 [facility] Urea nitrogen/Creatinine [Mass ratio] 16.8 mg/mg [facility] Laboratory - Urinalysison Protein (U) [Mass/Vol] 6.8 mg/dL <=11.9 [facility] Leukocytes [#/volume] correc azul for nucleated erythrocytes in Blood by Automated counon 07-06-2023 WBC corrected for nucl RBC Auto (Bld) [#/Vol] 6.4 10 3/uL 4.0-11.0 [facility] MCH Auto (RBC) [Entitic mass ]on 07-06-2023 MCH (RBC) [Entitic mass] 30.3 pg 26.7-34.0 [facility] MCHC Auto (RBC) [Mass/Vol]on 07-06-2023 MCHC (RBC) [Mass/Vol] 31.7 g/dL 29.9-35.2 [facility] MCV Auto (RBC) [Entitic vol] on 07-06-2023 MCV (RBC) [Entitic vol] 95.5 fL 81.0-99.0 [facility] No Panel Informationon 07-05 25-Hydroxy Vitamin D Total 57.7 ng/mL [facility] Comment on above: <20 ng/mL Vit D defi cient20-<30 ng/mL Vit D [id number] ng/mL Vit D sufficient>100 ng/mL Potential Toxicity Parathyroid Hormone (Intact) 81 pg/mL Abnormal [facility] Comment on above: Performed at: - L [address] [id number] Director: Tavon Arevalo PhD, Phone: [phone] Phosphorus Level 4.0 mg/dL 2.6-4.7 [facility] Urine Random Creatinine 65.39 mg/dL 20.0 0-300.0 0 [facility] Platelet mean volume Auto (B ld) [Entitic vol]on 07-06-2023 Platelet mean volume (Bld) [Entitic vol] 10.3 fL 9.5-13.5 [facility] Platelets Auto (Bld) [#/Vol] on 07-06-2023 Platelets (Bld) [#/Vol] 241 10 3/uL 150-450 [facility] RBC Auto (Bld) [#/Vol]on RBC (Bld) [#/Vol] 3.14 10 6/uL Low 4.20-5.40 [facility] Serum or plasma anion gap de terminationon 07-06-2023 Anion gap [Moles/Vol] 14.4 mmol/L [facility] Urine protein/creatinine rat ioon 07-06-2023 Protein/Creatinine (U) [Ratio] 0.10 [facility] BASIC METABOLIC PANLon 06-21 Anion gap [Moles/Vol] 11 mmol/L Normal 5-15 [facility] Comment on above: Performed By: #### C BCA, BMP, LIVR, 40855-5, 3016-3, 86397-4 #### [facility] ([id number]) [address], [address] [place] [address] Calcium [Mass/Vol] 9.5 mg/dL Normal 8.5-10.5 [facility] Comment on above: Performed By: #### C BCA, BMP, LIVR, 73692-3, 3016-3, 79366-6 #### [facility] ([id number]) [address], [address] [place] [address] Chloride [Moles/Vol] 106 mmol/L Normal 98-109 [facility] Comment on above: Performed By: #### C BCA, BMP, LIVR, 44238-0, 3016-3, 27145-3 #### [facility] ([id number]) [address], [address] [place] [address] CO2 [Moles/Vol] 24 mmol/L Normal 22-32 [facility] Comment on above: Performed By: #### C BCA, BMP, LIVR, 90601-1, 3016-3, 92979-0 #### [facility] ([id number]) [address], [address] [place] [address] Creatinine [Mass/Vol] 1.48 mg/dL High 0.40-1.00 [facility] Comment on above: Result Comment: METH OD TRACEABLE TO IDMS STANDARD Performed By: #### C BCA, BMP, LIVR, 20229-6, 3016-3, 07847-4 #### [facility] ([id number]) [address], [address] [place] [address] GFR/1.73 sq M.predicted among non-blacks MDRD (S/P/Bld) [Vol rate/Area] 37 mL/min/{1.73_m2} Low >[address] [facility] Comment on above: Result Comment: Reported eGFR is based on the CKD-EPI 2020 equation that does not use a race coefficient. Performed By: #### C BCA, BMP, LIVR, 92621-7, 3016-3, 86760-6 #### [facility] ([id number]) [address], [address] [place] [address] Glucose [Mass/Vol] 99 mg/dL Normal 65-99 [facility] Comment on above: Performed By: #### C BCA, BMP, LIVR, 74761-4, 3016-3, 01660-4 #### [facility] ([id number]) [address], [address] [place] [address] Potassium [Moles/Vol] 5.5 mmol/L High 3.5-5.0 [facility] Comment on above: Performed By: #### C BCA, BMP, LIVR, 65904-6, 3016-3, 31842-7 #### [facility] ([id number]) [address], [address] [place] [address] Sodium [Moles/Vol] 141 mmol/L Normal 134-146 [facility] Comment on above: Performed By: #### C BCA, BMP, LIVR, 28119-2, 3016-3, 11379-3 #### [facility] ([id number]) [address], [address] [place] [address] Urea nitrogen [Mass/Vol] 25 mg/dL Normal 5-27 [facility] Comment on above: Performed By: #### C BCA, BMP, LIVR, 99426-8, 6-3, 02835-9 #### [facility] ([id number]) [address], [address] [place] [address] CBC AND AUTO DIFFon 04-18-20 24 ABSOLUTE BASOPHIL 0.0 X10E9/L Normal 0.0-0.2 [facility] Comment on above: Performed By: #### C BCA, BMP, PINR #### [facility] ([id number]) [address], [address] [place] [address] ABSOLUTE NEUTROPHIL 4.4 X10E9/L Normal 1.5-6.6 [facility] Comment on above: Performed By: #### C BCA, BMP, PINR #### [facility] ([id number]) [address], [address] [place] [address] Basophils/100 WBC (Bld) 0.4 % Normal P [facility] Comment on above: Performed By: #### C TERI GARCIA, PINR #### [facility] ([id number]) [address], [address] [place] [address] Eosinophils (Bld) [#/Vol] 0.1 10*3/uL Normal 0.0-0.4 [facility] Comment on above: Performed By: #### C TERI GARCIA, PINR #### [facility] ([id number]) [address], [facility] [address] [place] [address] Eosinophils/100 WBC (Bld) 1.3 % Normal [facility] Comment on above: Performed By: #### C TERI GARCIA, PINR #### [facility] ([id number]) [address], [address] [place] [address] Erythrocyte distribution width (RBC) [Ratio] 14.0 % Normal 11.5-15.0 [facility] Comment on above: Performed By: #### C TERI GARCIA, PINR #### [facility] ([id number]) [address], [facility] [address] [place] [address] Hematocrit (Bld) [Volume fraction] 28.8 % Low 35-47 [facility] Comment on above: Performed By: #### C TERI GARCIA, PINR #### [facility] ([id number]) [address], [facility] [address] [place] [address] Hemoglobin (Bld) [Mass/Vol] 9.9 g/dL Low 11.7-15.5 [facility] Comment on above: Performed By: #### C TERI GARCIA, PINR #### [facility] ([id number]) [address], [facility] [address] [place] [address] Lymphocytes (Bld) [#/Vol] 0.9 10*3/uL Low 1.0-3.5 [facility] Comment on above: Performed By: #### C BCA, BMP, PINR #### [facility] ([id number]) [address], [address] [place] [address] Lymphocytes/100 WBC (Bld) 16.5 % Normal [facility] Comment on above: Performed By: #### C BCA, BMP, PINR #### [facility] ([id number]) [address], [address] [place] [address] MCH (RBC) [Entitic mass] 31.3 pg Normal 27-34 [facility] Comment on above: Performed By: #### C RADHA, BMP, PINR #### [facility] ([id number]) [address], [facility] [address] [place] [address] MCHC (RBC) [Mass/Vol] 34.4 g/dL Normal 32-36 [facility] Comment on above: Performed By: #### C BCA, BMP, PINR #### [facility] ([id number]) [address], [address] [place] [address] MCV (RBC) [Entitic vol] 91 fL Normal 80-100 [facility] Comment on above: Performed By: #### C BCA, BMP, PINR #### [facility] ([id number]) [address], [address] [place] [address] Monocytes (Bld) [#/Vol] 0.3 10*3/uL Normal 0-0.9 [facility] Comment on above: Performed By: #### C BCA, BMP, PINR #### [facility] ([id number]) [address], [address] [place] [address] Monocytes/100 WBC (Bld) 4.7 % Normal [facility] Comment on above: Performed By: #### C BCA, BMP, PINR #### [facility] ([id number]) [address], [address] [place] [address] Neutrophils/100 WBC (Bld) 77.1 % Normal [facility] Comment on above: Performed By: #### C TERI GARCIA, PINR #### [facility] ([id number]) [address] [address] [place] [address] Platelet mean volume (Bld) [Entitic vol] 9.4 fL Normal 7-12 [facility] Comment on above: Performed By: #### C RADHA, BMP, PINR #### [facility] ([id number]) [address] [address] [place] [address] Platelets (Bld) [#/Vol] 219 10*3/uL Normal 150-450 [facility] Comment on above: Performed By: #### Ivette GARCIA, BMP, PINR #### [facility] ([id number]) [address] [address] [place] [address] RBC COUNT 3.17 X10E12/L Low 3.80-5.20 [facility] Comment on above: Performed By: #### Ivette GARCIA, TERI, PINR #### [facility] ([id number]) [address] [address] [place] [address] WBC (Bld) [#/Vol] 5.7 10*3/uL Normal 4.0-11.0 [facility] Comment on above: Performed By: #### Ivette GARCIA, BMP, PINR #### [facility] ([id number]) [address] [address] [place] [address] HGB A1C (GLYCO-HGB)on 2023 Glucose [Mass/Vol] 117 mg/dL Normal [facility] Comment on above: Performed By: #### C RADHA, BMP, LIVR, 16094-6, 3016-3, 19099-0 #### [facility] ([id number]) [address] [address] [place] [address] HbA1c (Bld) [Mass fraction] 5.7 % High 4.4-5.6 [facility] Comment on above: Result Comment: NOTE ADA Guidelines Result HgbA1c Normal : less than 5.7 % Prediabetes : 5.7 % to 6.4 % Diabetes : > 6.4 % Use with caution in patients with abnormal hemoglobin variants as the half-life of red blood cells and in vivo glycation rates are affected. Performed By: #### C BCA, BMP, LIVR, 83815-2, 3016-3, 11840-8 #### [facility] ([id number]) [address] [address] PROTIME AND INRon 06-22-2023 INR Coag (PPP) [Relative time] 1.0 {INR} Normal 0.8-1.1 [facility] Comment on above: Performed By: #### C BCA, BMP, LIVR, 42967-2, 3016-3, 72137-9 #### [facility] ([id number]) [address] [address] [place] [address] PT Coag (PPP) [Time] 11.1 s Normal 9.8-13.2 [facility] Comment on above: Performed By: #### C BCA, BMP, LIVR, 65689-0, 3016-3, 13293-4 #### [facility] ([id number]) [address] [address] [place] [address] BASIC METABOLIC PANLon 04-19 Anion gap [Moles/Vol] 9 mmol/L Normal 5-15 [facility] Comment on above: Performed By: #### C BCA, BMP, LIVR, 58080-4, 3016-3, 64148-2 #### [facility] ([id number]) [address] [address] [place] [address] Calcium [Mass/Vol] 9.5 mg/dL Normal 8.5-10.5 [facility] Comment on above: Performed By: #### C BCA, BMP, LIVR, 55675-1, 3016-3, 32163-0 #### [facility] ([id number]) [address] [place] [address] Chloride [Moles/Vol] 105 mmol/L Normal 98-109 [facility] Comment on above: Performed By: #### C BCA, BMP, LIVR, 15056-0, 3016-3, 61055-3 #### [facility] ([id number]) [address], [address] [place] [address] CO2 [Moles/Vol] 26 mmol/L Normal 22-32 [facility] Comment on above: Performed By: #### C BCA, BMP, LIVR, 98963-0, 3016-3, 79710-4 #### [facility] ([id number]) [address], [address] [place] [address] Creatinine [Mass/Vol] 1.43 mg/dL High 0.40-1.00 [facility] Comment on above: Result Comment: METH OD TRACEABLE TO IDMS STANDARD Performed By: #### C BCA, BMP, LIVR, 31547-5, 3016-3, 60733-0 #### [facility] ([id number]) [address], [address] [place] [address] GFR/1.73 sq M.predicted among non-blacks MDRD (S/P/Bld) [Vol rate/Area] 38 mL/min/{1.73_m2} Low >[address] [facility] Comment on above: Result Comment: Reported eGFR is based on the CKD-EPI 2020 equation that does not use a race coefficient. Performed By: #### C BCA, BMP, LIVR, 01039-7, 3016-3, 67708-2 #### [facility] ([id number]) [address] [place] [address] Glucose [Mass/Vol] 97 mg/dL Normal 65-99 [facility] Comment on above: Performed By: #### C BCA, BMP, LIVR, 07383-2, 3016-3, 23269-4 #### [facility] ([id number]) [address], [address] [place] [address] Potassium [Moles/Vol] 5.2 mmol/L High 3.5-5.0 [facility] Comment on above: Performed By: #### C BCA, BMP, LIVR, 49427-0, 3016-3, 30839-4 #### [facility] ([id number]) [address], [address] [place] [address] Sodium [Moles/Vol] 140 mmol/L Normal 134-146 [facility] Comment on above: Performed By: #### C BCA, BMP, LIVR, 75376-9, 3016-3, 85757-7 #### [facility] ([id number]) [address], [address] [place] [address] Urea nitrogen [Mass/Vol] 28 mg/dL High 5-27 [facility] Comment on above: Performed By: #### C BCA, BMP, LIVR, 46009-5, 3016-3, 00269-3 #### [facility] ([id number]) [address], [address] [place] [address] Basic metabolic 1998 panelon 04-19-2023 Anion gap [Moles/Vol] 9 mmol/L 5 - 15 mmol/L [facility] Calcium [Mass/Vol] 9.5 mg/dL 8.5 - 10. 5 mg/dL [facility] Chloride [Moles/Vol] 105 mmol/L 98 - 10 9 mmol/L [facility] CO2 [Moles/Vol] 26 mmol/L 22 - 32 mmol/L [facility] Creatine [Mass/Vol] 1.43 mg/dL High 0.40 - 1 .00 mg/dL [facility] Comment on above: METHOD TRACEABLE TO [facility] STANDARD GFR/1.73 sq M.predicted among non-blacks MDRD (S/P/Bld) [Vol rate/Area] 38 mL/min/{1.73_m2} Low - PINF NO [facility] Comment on above: Reported eGFR is based on the CKD-EPI 2020 equation that does not use a race coefficient. PERFORMED AT [facility] [address],[place] [address] Glucose [Mass/Vol] 97 mg/dL 65 - 99 mg/dL [facility] Potassium [Moles/Vol] 5.2 mmol/L High 3.5 - 5.0 mmol/L [facility] Sodium [Moles/Vol] 140 mmol/L 134 - 146 mmol/L [facility] Urea nitrogen [Mass/Vol] 28 mg/dL High 5 - 27 mg/dL [facility] CBC AND AUTO DIFFon 04-19-19 ABSOLUTE BASOPHIL 0.0 X10E9/L Normal 0.0-0.2 [facility] Comment on above: Performed By: #### C BCA, BMP, LIVR, 52572-9, 3016-3, 25279-9 #### [facility] ([id number]) [address] [facility] [place] [address] ABSOLUTE NEUTROPHIL 3.4 X10E9/L Normal 1.5-6.6 [facility] Comment on above: Performed By: #### C BCA, BMP, LIVR, 60822-9, 3016-3, 54395-0 #### [facility] ([id number]) [address], [address] [place] [address] Basophils/100 WBC (Bld) 0.5 % Normal [facility] Comment on above: Performed By: #### C BCA, BMP, LIVR, 26286-5, 3016-3, 35101-5 #### [facility] ([id number]) [address] [facility] [facility] [address] [place] [address] Eosinophils (Bld) [#/Vol] 0.2 10*3/uL Normal 0.0-0.4 [facility] Comment on above: Performed By: #### C BCA, BMP, LIVR, 14725-0, 3016-3, 00364-0 #### [facility] ([id number]) [address], [address] [place] [address] Eosinophils/100 WBC (Bld) 3.8 % Normal [facility] Comment on above: Performed By: #### C BCA, BMP, LIVR, 31563-3, 6-3, 09021-9 #### [facility] ([id number]) [address], [facility] [address] [place] [address] Erythrocyte distribution width (RBC) [Ratio] 15.4 % High 11.5-15.0 [facility] Comment on above: Performed By: #### C BCA, BMP, LIVR, 76090-2, 6-3, 21650-0 #### [facility] ([id number]) [address], [address] [place] [address] Hematocrit (Bld) [Volume fraction] 32.5 % Low 35-47 [facility] Comment on above: Performed By: #### C BCA, BMP, LIVR, 64332-5, 6-3, 24632-7 #### [facility] ([id number]) [address], [address] [place] [address] Hemoglobin (Bld) [Mass/Vol] 10.8 g/dL Low 11.7-15.5 [facility] Comment on above: Performed By: #### C BCA, BMP, LIVR, 13310-5, 3016-3, 64921-9 #### [facility] ([id number]) [address] [facility] [facility] [place] [address] Lymphocytes (Bld) [#/Vol] 1.6 10*3/uL Normal 1.0-3.5 [facility] Comment on above: Performed By: #### C BCA, BMP, LIVR, 28313-1, 3016-3, 70785-5 #### [facility] ([id number]) [address] [facility] [place] [address] Lymphocytes/100 WBC (Bld) 29.5 % Normal [facility] Comment on above: Performed By: #### C BCA, BMP, LIVR, 99138-2, 3016-3, 35316-3 #### [facility] ([id number]) [address] [address] MCH (RBC) [Entitic mass] 29.7 pg Normal 27-34 [facility] Comment on above: Performed By: #### C BCA, BMP, LIVR, 43813-7, 3016-3, 23231-2 #### [facility] ([id number]) [address] [place] [address] MCHC (RBC) [Mass/Vol] 33.3 g/dL Normal 32-36 [facility] Comment on above: Performed By: #### C BCA, BMP, LIVR, 71540-9, 3016-3, 24404-0 #### [facility] ([id number]) [address] [facility] [address] [place] [address] MCV (RBC) [Entitic vol] 89 fL Normal 80-100 [facility] Comment on above: Performed By: #### C BCA, BMP, LIVR, 42296-3, 3016-3, 62890-1 #### [facility] ([id number]) [address] [facility] [address] [place] [address] Monocytes (Bld) [#/Vol] 0.3 10*3/uL Normal 0-0.9 [facility] Comment on above: Performed By: #### C BCA, BMP, LIVR, 06736-7, 3016-3, 26055-3 #### [facility] ([id number]) [address] [facility] [address] [place] [address] Monocytes/100 WBC (Bld) 5.0 % Normal P [facility] Comment on above: Performed By: #### C BCA, BMP, LIVR, 80025-1, 3016-3, 31432-0 #### [facility] ([id number]) [address], [address] [place] [address] Neutrophils/100 WBC (Bld) 61.2 % Normal [facility] Comment on above: Performed By: #### C BCA, BMP, LIVR, 87081-3, 3016-3, 37991-1 #### [facility] ([id number]) [address], [address] [place] [address] Platelet mean volume (Bld) [Entitic vol] 9.3 fL Normal 7-12 [facility] Comment on above: Performed By: #### C BCA, BMP, LIVR, 16172-6, 3016-3, 08741-6 #### [facility] ([id number]) [address], [address] [place] [address] Platelets (Bld) [#/Vol] 215 10*3/uL Normal 150-450 [facility] Comment on above: Performed By: #### C BCA, BMP, LIVR, 06853-2, 3016-3, 18614-3 #### [facility] ([id number]) [address], [address] [place] [address] RBC COUNT 3.64 X10E12/L Low 3.80-5.20 [facility] Comment on above: Performed By: #### C BCA, BMP, LIVR, 21709-1, 3016-3, 22861-0 #### [facility] ([id number]) [address], [address] [place] [address] WBC (Bld) [#/Vol] 5.6 10*3/uL Normal 4.0-11.0 [facility] Comment on above: Performed By: #### C BCA, BMP, LIVR, 78908-4, 3016-3, 20736-4 #### [facility] ([id number]) [address] [place] [address] CBC W Auto Differential pane l (Bld)on 04-19-2023 ABSOLUTE BASOPHIL 0.0 [facility] Comment on above: PERFORMED AT [facility] [address],[place] [address] Basophils/100 WBC (Bld) 0.5 % N S [...] MCHC (RBC) [Mass/Vol] 33.3 g/dL 32 - 3 6 g/dL [facility] MCV (RBC) [Entitic vol] 89 fL [...] for nucl RBC Auto (Bld) [#/Vol] 5.6 [facility] HGB A1C (GLYCO-HGB)on 2023 Glucose [Mass/Vol] 128 mg/dL Normal [facility] Comment on above: Performed By: #### C BCA, BMP, LIVR, 87969-9, 3016-3, 25750-0 #### [facility] ([id number]) [address], [address] [place] [address] HbA1c (Bld) [Mass fraction] 6.1 % High 4.4-5.6 [facility] Comment on above: Result Comment: NOTE ADA Guidelines Result HgbA1c Normal : less than 5.7 % Prediabetes : 5.7 % to 6.4 % Diabetes : > 6.4 % Use with caution in patients with abnormal hemoglobin variants as the half-life of red blood cells and in vivo glycation rates are affected. Performed By: #### C BCA, BMP, LIVR, 17459-1, 3016-3, 61884-6 #### [facility] ([id number]) [address], [address] [place] [address] LIVER PANELon 04-19-2023 Albumin [Mass/Vol] 4.6 g/dL Normal 3.2-5.3 [facility] Comment on above: Performed By: #### C BCA, BMP, LIVR, 77886-9, 6-3, 54450-5 #### [facility] ([id number]) [address], [address] [place] [address] ALP [Catalytic activity/Vol] 43 U/L Normal 39-130 [facility] Comment on above: Performed By: #### C BCA, BMP, LIVR, 17769-5, 3016-3, 52196-1 #### [facility] ([id number]) [address], [address] [place] [address] ALT [Catalytic activity/Vol] 13 U/L Normal 0-31 [facility] Comment on above: Performed By: #### C BCA, BMP, LIVR, 02414-5, 3016-3, 40873-8 #### [facility] ([id number]) [address], [address] [place] [address] AST [Catalytic activity/Vol] 17 U/L Normal 0-41 [facility] Comment on above: Performed By: #### C BCA, BMP, LIVR, 35727-4, 3016-3, 20102-5 #### [facility] ([id number]) [address], [address] [place] [address] Bilirubin [Mass/Vol] 0.5 mg/dL Normal 0.3-1.2 [facility] Comment on above: Performed By: #### C BCA, BMP, LIVR, 29428-9, 3016-3, 39776-4 #### [facility] ([id number]) [address], [address] [place] [address] Bilirubin.direct [Mass/Vol] 0.1 mg/dL Normal 0.0-0.4 [facility] Comment on above: Performed By: #### C BCA, BMP, LIVR, 90687-5, 3016-3, 61165-4 #### [facility] ([id number]) [address], [address] [place] [address] Protein [Mass/Vol] 7.0 g/dL Normal 6.0-8.0 [facility] Comment on above: Performed By: #### C BCA, BMP, LIVR, 99745-0, 3016-3, 05935-0 #### [facility] ([id number]) [address], [address] [place] [address] Lipid 1996 panelon 4 Cholesterol [Mass/Vol] 177 mg/dL Normal 150-[address] [facility] Comment on above: Performed By: #### C BCA, BMP, LIVR, 68072-3, 3016-3, 52873-9 #### [facility] ([id number]) [address], [address] [place] [address] Cholesterol in HDL [Mass/Vol] 48 mg/dL Normal >39 [facility] Comment on above: Result Comment: HDL <40 mg/dL - High Risk HDL > or = 40mg/dL- Desirable HDL >60 mg/dL - Negative Risk Performed By: #### C BCA, BMP, LIVR, 85926-8, 6-3, 65134-8 #### [facility] ([id number]) [address], [address] [place] [address] Cholesterol in LDL [Mass/Vol] 81 mg/dL Normal <130 [facility] Comment on above: Result Comment: LDL <100 mg/dL - Desirable LDL >160 mg/dL - High Risk Performed By: #### C BCA, BMP, LIVR, 33959-2, 6-3, 93008-8 #### [facility] ([id number]) [address], [address] [place] [address] Cholesterol in VLDL [Mass/Vol] 48 mg/dL High 0-30 [facility] Comment on above: Performed By: #### C BCA, BMP, LIVR, 13723-4, 6-3, 02413-0 #### [facility] ([id number]) [address], [facility] [address] [place] [address] CHOLESTEROL:HDL 3.7 Normal 1.0-5.0 [facility] Comment on above: Performed By: #### C BCA, BMP, LIVR, 45571-6, 3016-3, 77260-6 #### [facility] ([id number]) [address] [address] Triglyceride [Mass/Vol] 239 mg/dL High 27-150 P [facility] Comment on above: Performed By: #### C BCA, BMP, LIVR, 43234-3, 3016-3, 34824-0 #### [facility] ([id number]) [address] [address] MICROALBUMIN - ALBUMIN:CREAT ININE URINE RATIOon 04-19-2023 ALB/CREAT RATIO 26.4 mg/g creat Normal 0.0-30.0 [facility] Comment on above: Performed By: #### M ALBU #### [facility] ([id number]) [address] [address] Albumin DL <= 20 mg/L (U) [Mass/Vol] 2.0 mg/dL High 0.0-1.9 [facility] Comment on above: Performed By: #### M ALBU #### [facility] ([id number]) [address] [address] URINE CREAT 75.68 mg/dL Normal [facility] Comment on above: Performed By: #### M ALBU #### [facility] ([id number]) [address] [address] No Panel Informationon 04-19 Interpretation and review of laboratory results Abnormal [facility] TSH Qnon 04-19-2023 TSH 1.47 uIU/mL Normal 0.49-4.67 [facility] Comment on above: Performed By: #### C BCA, BMP, LIVR, 62209-6, 3016-3, 91474-8 #### [facility] ([id number]) [address] [address] Vitamin D+Metabolites [Mass/ Vol]on 04-19-2023 VITAMIN D 25 HYD TOT 51.9 ng/mL Normal 30-100 [facility] Comment on above: Result Comment: Vitamin D status 25 [place] Vitamin D Deficiency <20 ng/mL Insufficiency 20-29 ng/mL Sufficiency 30-100 ng/mL Toxicity >100 ng/mL NOTE: A pediatric reference range has not been established by the interactive designer of this kit. The [place] [employer] recommends a Vitamin D level of = or >20ng/mL in infants and children. Performed By: #### C BCA, BMP, LIVR, 09131-7, 3016-3, 06435-3 #### [facility] ([id number]) [address], [address] [place] [address] MR KNEE RIGHT WO IV CONTRAST on [...] R T knee to be done at [facility] in [place], is scheduled 04/12/23 at 10:30 for the mri, thank you Surgical Pathologyon 024 Surgical Pathology Normal [facility] Comment on above: Result Comment: [facility] [address] [place] [address] Surgical Pathology Consultation Patient Name:MALGORZATA SIMMONS:1945 (Age: 77)Gender:FTaken:4Reported:03/10/2023hysician(s):Michaela Emerson MD ([phone])Copy To: Rec. #:[id number]: #[id number] Final Pathologic Diagnosis 1. Duodenal polyps, biopsy: [...] No dysplasia identified. Report Electronically Signed [facility]/03/10/2023Florian Card M.D. Interpretation performed at [facility], [address] [place] [address], License number: [id number]. Clinical History Iron deficient/anemia. Gross Description 1. Received in formalin labeled, SEAMON, duodenum are 3 palacio delicate to friable soft tissue bits, each 0.3 cm in greatest dimension. The specimens are filtered and submitted in a single cassette. (1, ns, [id number], m7) TB 2. Received in formalin labeled, SEAMON, antral are 2 palacio delicate soft tissue bits, 0.2 and 0.3 cm in greatest dimension. The specimens are filtered and submitted in a single cassette. (1, ns, [id number], m7) TB 3. Received in formalin labeled, TROY, fundus are 2 pale-palacio delicate soft tissue bits, 0.3 and 0.4 cm in greatest dimension. The specimens are filtered and submitted in a single cassette. (1, ns, [id number], m7) TB 4. Received in formalin labeled, TROY, 45 cm colon polyps is a pale-palacio feathery soft tissue bits, 0.4 cm in greatest dimension. The specimens are filtered and submitted in a single cassette. (1, ns, [id number], m7) TB tgb/03/08/2023GR Specimen(s) Received 1: Duodenum x2 polyps 2: Antrum biopsy 3: Fundic stomach 4: Colon polyp at 45cm Fee Codes(s): 1; 66121 2; 80786 3; 09961 4; 77062 GLYCOHEMOGLOBIN A1Con 2022 ADA RECOMMENDATION SEE BELOW Normal [facility] Comment on above: Result Comment: ADA RECOMMENDED LIMIT 4.0 - 6.0 ADA THERAPEUTIC TARGET < 7.0 ACTION SUGGESTED > 7.0 Performed By: #### B MP, LIPID, AST, TSH, ALT #### [facility] [address] [place] [address] Dr. Viri Strong Glucose [Mass/Vol] 126 mg/dL Normal [facility] Comment on above: Performed By: #### B MP, LIPID, AST, TSH, ALT #### [facility] [address] [address] [address] Viri Strong HbA1c (Bld) [Mass fraction] 6.0 % Normal 4.5-6.2 [facility] Comment on above: Performed By: #### B MP, LIPID, AST, TSH, ALT #### [facility] [address] [place] [address] Dr. Viri Strong RENAL FUNCTION PANELon 03-15 Albumin [Mass/Vol] 4.1 g/dL Normal 3.4-5.0 [facility] Comment on above: Performed By: #### B MP, LIPID, AST, TSH, ALT #### [facility] [address] [address] [address] Viri Strong Calcium [Mass/Vol] 9.1 mg/dL Normal 8.5-10.1 [facility] Comment on above: Performed By: #### B MP, LIPID, AST, TSH, ALT #### [facility] [address] [address] [address] Viri Strong Chloride [Moles/Vol] 107 mmol/L Normal 98-107 [facility] Comment on above: Performed By: #### B MP, LIPID, AST, TSH, ALT #### [facility] [address] [place] [address] Dr. Viri Strong CO2 [Moles/Vol] 24.6 mmol/L Normal 21.0-32.0 [facility] Comment on above: Performed By: #### B MP, LIPID, AST, TSH, ALT #### [facility] [address] [address] [address] Viri Strong Creatinine [Mass/Vol] 1.31 mg/dL Critically high 0.55-1.02 [facility] Comment on above: Performed By: #### B MP, LIPID, AST, TSH, ALT #### [facility] [address] [place] [address] Dr. Viri Strong EGFR-AF TUVALUAN 48 mL/min/1.73m2 Critically low >=60 [facility] Comment on above: Performed By: #### B MP, LIPID, AST, TSH, ALT #### [facility] [address] [place] [address] Dr. Viri Strong EGFR-NON AF TUVALUAN 40 mL/min/1.73m2 Critically low >=60 [facility] Comment on above: Performed By: #### B MP, LIPID, AST, TSH, ALT #### [facility] [address] [place] [address] Dr. Viri Strong Glucose [Mass/Vol] 99 mg/dL Normal 74-106 [facility] Comment on above: Performed By: #### B MP, LIPID, AST, TSH, ALT #### [facility] [address] [place] [address] Dr. Viri Strong Phosphate [Mass/Vol] 3.4 mg/dL Normal 2.6-4.7 [facility] Comment on above: Performed By: #### B MP, LIPID, AST, TSH, ALT #### [facility] [address] [place] [address] Dr. Viri Strong Potassium [Moles/Vol] 4.6 mmol/L Normal 3.5-5.1 [facility] Comment on above: Performed By: #### B MP, LIPID, AST, TSH, ALT #### [facility] [address] [place] [address] Dr. Viri Strong Sodium [Moles/Vol] 141 mmol/L Normal 136-145 [facility] Comment on above: Performed By: #### B MP, LIPID, AST, TSH, ALT #### [facility] [address] [place] [address] Dr. Viri Strong Urea nitrogen [Mass/Vol] 28.0 mg/dL Critically high 7.0-18 .0 [facility] Comment on above: Performed By: #### B MP, LIPID, AST, TSH, ALT #### [facility] [address] [place] [address] Dr. Viri Strong RENAL FUNCTION PANELon 01-31 Albumin [Mass/Vol] 4.1 g/dL Normal 3.4-5.0 [facility] Comment on above: Performed By: #### B MP, LIPID, AST, TSH, ALT #### [facility] [address] [place] [address] Dr. Viri Strong Calcium [Mass/Vol] 9.3 mg/dL Normal 8.5-10.1 [facility] Comment on above: Performed By: #### B MP, LIPID, AST, TSH, ALT #### [facility] [address] [place] [address] Dr. Viri Strong Chloride [Moles/Vol] 105 mmol/L Normal 98-107 [facility] Comment on above: Performed By: #### B MP, LIPID, AST, TSH, ALT #### [facility] [address] [place] [address] Dr. Viri Strong CO2 [Moles/Vol] 22.5 mmol/L Normal 21.0-32.0 [facility] Comment on above: Performed By: #### B MP, LIPID, AST, TSH, ALT #### [facility] [address] [place] [address] Dr. Viri Strong Creatinine [Mass/Vol] 1.31 mg/dL Critically high 0.55-1.02 [facility] Comment on above: Performed By: #### B MP, LIPID, AST, TSH, ALT #### [facility] [address] [place] [address] Dr. Viri Strong EGFR-AF TUVALUAN 48 mL/min/1.73m2 Critically low >=60 [facility] Comment on above: Performed By: #### B MP, LIPID, AST, TSH, ALT #### [facility] [address] [place] [address] Dr. Viri Strong EGFR-NON AF TUVALUAN 40 mL/min/1.73m2 Critically low >=60 [facility] Comment on above: Performed By: #### B MP, LIPID, AST, TSH, ALT #### [facility] [address] [place] [address] Dr. Viri Strong Glucose [Mass/Vol] 105 mg/dL Normal 74-106 [facility] Comment on above: Performed By: #### B MP, LIPID, AST, TSH, ALT #### [facility] [address] [place] [address] Dr. Viri Strong Phosphate [Mass/Vol] 3.2 mg/dL Normal 2.6-4.7 [facility] Comment on above: Performed By: #### B MP, LIPID, AST, TSH, ALT #### [facility] [address] [place] [address] Dr. Viri Strong Potassium [Moles/Vol] 5.0 mmol/L Normal 3.5-5.1 [facility] Comment on above: Performed By: #### B MP, LIPID, AST, TSH, ALT #### [facility] [address] [address] [address] Viri Strong Sodium [Moles/Vol] 138 mmol/L Normal 136-145 [facility] Comment on above: Performed By: #### B MP, LIPID, AST, TSH, ALT #### [facility] [address] [place] [address] Dr. Viri Strong Urea nitrogen [Mass/Vol] 24.0 mg/dL Critically high 7.0-18 .0 [facility] Comment on above: Performed By: #### B MP, LIPID, AST, TSH, ALT #### [facility] [address] [place] [address] Dr. Viri Strong MAGNESIUMon 01-19-2022 Magnesium [Mass/Vol] 2.1 mg/dL Normal 1.8-2.4 [facility] Comment on above: Performed By: #### B MP, LIPID, AST, TSH, ALT #### [facility] [address] [place] [address] Dr. Viri Strong RENAL FUNCTION PANELon 01-19 Albumin [Mass/Vol] 4.4 g/dL Normal 3.4-5.0 [facility] Comment on above: Performed By: #### B MP, LIPID, AST, TSH, ALT #### [facility] [address] [place] [address] Dr. Viri Strong Calcium [Mass/Vol] 9.7 mg/dL Normal 8.5-10.1 [facility] Comment on above: Performed By: #### B MP, LIPID, AST, TSH, ALT #### [facility] [address] [place] [address] Dr. Viri Strong Chloride [Moles/Vol] 101 mmol/L Normal 98-107 [facility] Comment on above: Performed By: #### B MP, LIPID, AST, TSH, ALT #### [facility] [address] [place] [address] Dr. Viri Strong CO2 [Moles/Vol] 26.8 mmol/L Normal 21.0-32.0 [facility] Comment on above: Performed By: #### B MP, LIPID, AST, TSH, ALT #### [facility] [address] [place] [address] Dr. Viri Strong Creatinine [Mass/Vol] 1.37 mg/dL Critically high 0.55-1.02 [facility] Comment on above: Performed By: #### B MP, LIPID, AST, TSH, ALT #### [facility] [address] [place] [address] Dr. Viri Strong EGFR-AF TUVALUAN 46 mL/min/1.73m2 Critically low >=60 [facility] Comment on above: Performed By: #### B MP, LIPID, AST, TSH, ALT #### [facility] [address] [place] [address] Dr. Viri Strong EGFR-NON AF TUVALUAN 38 mL/min/1.73m2 Critically low >=60 [facility] Comment on above: Performed By: #### B MP, LIPID, AST, TSH, ALT #### [facility] [address] [place] [address] Dr. Viri Strong Glucose [Mass/Vol] 88 mg/dL Normal 74-106 [facility] Comment on above: Performed By: #### B MP, LIPID, AST, TSH, ALT #### [facility] [address] [place] [address] Dr. Viri Strong Phosphate [Mass/Vol] 4.2 mg/dL Normal 2.6-4.7 [facility] Comment on above: Performed By: #### B MP, LIPID, AST, TSH, ALT #### [facility] [address] [place] [address] Dr. Viri Strong Potassium [Moles/Vol] 5.3 mmol/L Critically high 3.5-5.1 [facility] Comment on above: Performed By: #### B MP, LIPID, AST, TSH, ALT #### [facility] [address] [place] [address] Dr. Viri Strong Sodium [Moles/Vol] 135 mmol/L Critically low 136-145 [facility] Comment on above: Performed By: #### B MP, LIPID, AST, TSH, ALT #### [facility] [address] [place] [address] Dr. Viri Strong Urea nitrogen [Mass/Vol] 35.0 mg/dL Critically high 7.0-18 .0 [facility] Comment on above: Performed By: #### B MP, LIPID, AST, TSH, ALT #### [facility] [address] [place] [address] Dr. Viri Strong UA RANDOM W/MICROSCOPICon BACTERIA NONE SEEN Normal NONE SEEN [facility] Comment on above: Performed By: #### B MP, LIPID, AST, TSH, ALT #### [facility] [address] [place] [address] Dr. Viri Strong Bilirubin Ql (U) Negative Normal NEGATIVE [facility] Comment on above: Performed By: #### B MP, LIPID, AST, TSH, ALT #### [facility] [address] [place] [address] Dr. Viri Strong CAST NONE SEEN Normal NONE SEEN [facility] Comment on above: Performed By: #### B MP, LIPID, AST, TSH, ALT #### [facility] [address] [place] [address] Dr. Viri Strong Clarity (U) CLEAR Normal CLEAR [facility] Comment on above: Performed By: #### B MP, LIPID, AST, TSH, ALT #### [facility] [address] [place] [address] Dr. Viri Strong Color (U) LT. YELLOW Normal YELLOW [facility] Comment on above: Performed By: #### B MP, LIPID, AST, TSH, ALT #### [facility] [address] [place] [address] Dr. Viri Strong Crystals LM Nom (Urine sed) NONE SEEN Normal NONE SEEN [facility] Comment on above: Performed By: #### B MP, LIPID, AST, TSH, ALT #### [facility] [address] [place] [address] Dr. Viri Strong Epithelial cells LM Ql (Urine sed) RARE Normal NONE SEEN /RARE [facility] Comment on above: Performed By: #### B MP, LIPID, AST, TSH, ALT #### [facility] [address] [address] [address] Viri Strong Glucose Ql (U) Negative Normal NEGATIVE [facility] Comment on above: Performed By: #### B MP, LIPID, AST, TSH, ALT #### [facility] [address] [address] [address] Viri Strong Hemoglobin Ql (U) Negative Normal NEGATIVE [facility] Comment on above: Performed By: #### B MP, LIPID, AST, TSH, ALT #### [facility] [address] [place] [address] Dr. Viri Strong Ketones Ql (U) Negative Normal NEGATIVE [facility] Comment on above: Performed By: #### B MP, LIPID, AST, TSH, ALT #### [facility] [address] [place] [address] Dr. Viri Strong LEUKOCYTES TRACE Abnormal NEGATIVE [facility] Comment on above: Performed By: #### B MP, LIPID, AST, TSH, ALT #### [facility] [address] [place] [address] Dr. Viri Strong MUCOUS NONE SEEN Normal NONE SEEN [facility] Comment on above: Performed By: #### B MP, LIPID, AST, TSH, ALT #### [facility] [address] [place] [address] Dr. Viri Strong Nitrite Ql (U) Negative Normal NEGATIVE [facility] Comment on above: Performed By: #### B MP, LIPID, AST, TSH, ALT #### [facility] [address] [address] [address] Viri Strong pH (U) 5.0 [pH] Normal 5-9 [facility] Comment on above: Performed By: #### B MP, LIPID, AST, TSH, ALT #### [facility] [address] [place] [address] Dr. iVri Strong RBC 0-2 Normal 0-2 [facility] Comment on above: Performed By: #### B MP, LIPID, AST, TSH, ALT #### [facility] [address] [place] [address] Dr. Viri Strong SPEC GRAVITY 1.010 Normal 1.005-<=1.0 25 [facility] Comment on above: Performed By: #### B MP, LIPID, AST, TSH, ALT #### [facility] [address] [place] [address] Dr. Viri Strong UA PROTEIN Negative Normal NEGATIVE/ TRACE [facility] Comment on above: Performed By: #### B MP, LIPID, AST, TSH, ALT #### [facility] [address] [place] [address] Dr. Viri Strong Urobilinogen Qn (U) 0.2 {Alem'U}/dL Normal 0.2 - 1. 0 [facility] Comment on above: Performed By: #### B MP, LIPID, AST, TSH, ALT #### [facility] [address] [place] [address] Dr. Viri Strong WBC 2-5 Abnormal NONE SEEN [facility] Comment on above: Performed By: #### B MP, LIPID, AST, TSH, ALT #### [facility] [address] [place] [address] Dr. iVri Strong PTH INTACTon 01-04-2022 PTH, Intact 45 pg/mL Normal 15-65 [facility] Comment on above: Performed By: #### B MP, LIPID, AST, TSH, ALT #### [facility] [address] [place] [address] Dr. iVri Strong FERRITINon 01-03-2022 Ferritin [Mass/Vol] 51.0 ng/mL Normal 8.0-252.0 [facility] Comment on above: Performed By: #### B MP, LIPID, AST, TSH, ALT #### [facility] [address] [place] [address] Dr. Viri Strong HEMOGRAM AND PLATELon 2021 Hematocrit (Bld) [Volume fraction] 31.7 % Critically low 36.0-48.0 [facility] Comment on above: Performed By: #### B MP, LIPID, AST, TSH, ALT #### [facility] [address] [place] [address] Dr. Viri Strong Hemoglobin (Bld) [Mass/Vol] 10.2 g/dL Critically low 12.0-16.0 [facility] Comment on above: Performed By: #### B MP, LIPID, AST, TSH, ALT #### [facility] [address] [place] [address] Dr. Viri Strong MCH (RBC) [Entitic mass] 29.2 pg Normal 26.7-34.0 [facility] Comment on above: Performed By: #### B MP, LIPID, AST, TSH, ALT #### [facility] [address] [place] [address] Dr. Viri Strong MCHC (RBC) [Mass/Vol] 32.2 g/dL Normal 29.9-35.2 [facility] Comment on above: Performed By: #### B MP, LIPID, AST, TSH, ALT #### [facility] [address] [place] [address] Dr. Viri Strong MCV (RBC) [Entitic vol] 90.8 fL Normal 81.0-99.0 [facility] Comment on above: Performed By: #### B MP, LIPID, AST, TSH, ALT #### [facility] [address] [place] [address] Dr. Viri Strong PLT 231 103/ul Normal 150-450 [facility] Comment on above: Performed By: #### B MP, LIPID, AST, TSH, ALT #### [facility] [address] [place] [address] Dr. Viri Strong RBC 3.49 106/ul Critically low 4.20-5.40 [facility] Comment on above: Performed By: #### B MP, LIPID, AST, TSH, ALT #### [facility] [address] [place] [address] Dr. Viri Strong WBC 5.9 103/ul Normal 4.0-11.0 [facility] Comment on above: Performed By: #### B MP, LIPID, AST, TSH, ALT #### [facility] [address] [place] [address] Dr. Viri Strong IRON AND TIBCon 01-03-2022 % SATURATION 18.0 % Normal [facility] Comment on above: Performed By: #### B MP, LIPID, AST, TSH, ALT #### [facility] [address] [place] [address] Dr. Viri Strong Iron [Mass/Vol] 58.0 ug/dL Normal 50.0-170.0 [facility] Comment on above: Performed By: #### B MP, LIPID, AST, TSH, ALT #### [facility] [address] [address] [address] Viri Strong TIBC DIRECT 322.0 ug/dL Normal 250.0-450.0 [facility] Comment on above: Performed By: #### B MP, LIPID, AST, TSH, ALT #### [facility] [address] [place] [address] Dr. Viri Strong MAGNESIUMon 01-03-2022 Magnesium [Mass/Vol] 2.1 mg/dL Normal 1.8-2.4 [facility] Comment on above: Performed By: #### M G, URIC, RENAL #### [facility] [address] [place] [address] Dr. Viri Strong RENAL FUNCTION PANELon 01-03 Albumin [Mass/Vol] 4.3 g/dL Normal 3.4-5.0 [facility] Comment on above: Performed By: #### M G, URIC, RENAL #### [facility] [address] [place] [address] Dr. Viri Strong Calcium [Mass/Vol] 9.0 mg/dL Normal 8.5-10.1 [facility] Comment on above: Performed By: #### M G, URIC, RENAL #### [facility] [address] [address] [address] Viri Strong Chloride [Moles/Vol] 108 mmol/L Critically high 98-107 [facility] Comment on above: Performed By: #### M G, URIC, RENAL #### [facility] [address] [place] [address] Dr. Viri Strong CO2 [Moles/Vol] 23.4 mmol/L Normal 21.0-32.0 [facility] Comment on above: Performed By: #### M G, URIC, RENAL #### [facility] [address] [place] [address] Dr. Viri Strong Creatinine [Mass/Vol] 1.32 mg/dL Critically high 0.55-1.02 [facility] Comment on above: Performed By: #### M G, URIC, RENAL #### [facility] [address] [place] [address] Dr. Viri Strong EGFR-AF TUVALUAN 48 mL/min/1.73m2 Critically low >=60 [facility] Comment on above: Performed By: #### M G, URIC, RENAL #### [facility] [address] [place] [address] Dr. Viri Strong EGFR-NON AF TUVALUAN 39 mL/min/1.73m2 Critically low >=60 [facility] Comment on above: Performed By: #### M G, URIC, RENAL #### [facility] [address] [place] [address] Dr. Viri Strong Glucose [Mass/Vol] 92 mg/dL Normal 74-106 [facility] Comment on above: Performed By: #### M G, URIC, RENAL #### [facility] [address] [place] [address] Dr. Viri Strong Phosphate [Mass/Vol] 4.0 mg/dL Normal 2.6-4.7 [facility] Comment on above: Performed By: #### M G, URIC, RENAL #### [facility] [address] [place] [address] Dr. Viri Strong Potassium [Moles/Vol] 4.7 mmol/L Normal 3.5-5.1 [facility] Comment on above: Performed By: #### M G, URIC, RENAL #### [facility] [address] [place] [address] Dr. Viri Strong Sodium [Moles/Vol] 138 mmol/L Normal 136-145 [facility] Comment on above: Performed By: #### M G, URIC, RENAL #### [facility] [address] [address] [address] Viri Strong Urea nitrogen [Mass/Vol] 33.0 mg/dL Critically high 7.0-18 .0 [facility] Comment on above: Performed By: #### M G, URIC, RENAL #### [facility] [address] [place] [address] Dr. Viri Strong UA RANDOM W/MICROSCOPICon BACTERIA NONE SEEN Normal NONE SEEN [facility] Comment on above: Performed By: #### B MP, LIPID, AST, TSH, ALT #### [facility] [address] [place] [address] Dr. Viri Strong Bilirubin Ql (U) Negative Normal NEGATIVE [facility] Comment on above: Performed By: #### B MP, LIPID, AST, TSH, ALT #### [facility] [address] [place] [address] Dr. Viri Strong CAST NONE SEEN Normal NONE SEEN [facility] Comment on above: Performed By: #### B MP, LIPID, AST, TSH, ALT #### [facility] [address] [place] [address] Dr. Viri Strong Clarity (U) CLEAR Normal CLEAR [facility] Comment on above: Performed By: #### B MP, LIPID, AST, TSH, ALT #### [facility] [address] [place] [address] Dr. Viri Strong Color (U) LT. YELLOW Normal YELLOW [facility] Comment on above: Performed By: #### B MP, LIPID, AST, TSH, ALT #### [facility] [address] [place] [address] Dr. Viri Strong Crystals LM Nom (Urine sed) NONE SEEN Normal NONE SEEN [facility] Comment on above: Performed By: #### B MP, LIPID, AST, TSH, ALT #### [facility] [address] [place] [address] Dr. Viri Strogn Epithelial cells LM Ql (Urine sed) NONE SEEN Normal NONE SEEN /RARE [facility] Comment on above: Performed By: #### B MP, LIPID, AST, TSH, ALT #### [facility] [address] [address] [address] Viri Strong Glucose Ql (U) Negative Normal NEGATIVE [facility] Comment on above: Performed By: #### B MP, LIPID, AST, TSH, ALT #### [facility] [address] [place] [address] Dr. Viri Strong Hemoglobin Ql (U) Negative Normal NEGATIVE [facility] Comment on above: Performed By: #### B MP, LIPID, AST, TSH, ALT #### [facility] [address] [place] [address] Dr. Viri Strong Ketones Ql (U) Negative Normal NEGATIVE [facility] Comment on above: Performed By: #### B MP, LIPID, AST, TSH, ALT #### [facility] [address] [place] [address] Dr. Viri Strong LEUKOCYTES SMALL Abnormal NEGATIVE [facility] Comment on above: Performed By: #### B MP, LIPID, AST, TSH, ALT #### [facility] [address] [place] [address] Dr. Viri Strong MUCOUS NONE SEEN Normal NONE SEEN [facility] Comment on above: Performed By: #### B MP, LIPID, AST, TSH, ALT #### [facility] [address] [place] [address] Dr. Viri Strong Nitrite Ql (U) Negative Normal NEGATIVE [facility] Comment on above: Performed By: #### B MP, LIPID, AST, TSH, ALT #### [facility] [address] [place] [address] Dr. Viri Strong pH (U) 5.5 [pH] Normal 5-9 [facility] Comment on above: Performed By: #### B MP, LIPID, AST, TSH, ALT #### [facility] [address] [place] [address] Dr. Viri Strong RBC 0-2 Normal 0-2 [facility] Comment on above: Performed By: #### B MP, LIPID, AST, TSH, ALT #### [facility] [address] [place] [address] Dr. Viri Strong SPEC GRAVITY 1.020 Normal 1.005-<=1.0 25 [facility] Comment on above: Performed By: #### B MP, LIPID, AST, TSH, ALT #### [facility] [address] [place] [address] Dr. Viri Strong UA PROTEIN Negative Normal NEGATIVE/ TRACE [facility] Comment on above: Performed By: #### B MP, LIPID, AST, TSH, ALT #### [facility] [address] [place] [address] Dr. Viri Strong Urobilinogen Qn (U) 0.2 {Alem'U}/dL Normal 0.2 - 1. 0 [facility] Comment on above: Performed By: #### B MP, LIPID, AST, TSH, ALT #### [facility] [address] [place] [address] Dr. Viri Strong WBC 0-2 Abnormal NONE SEEN [facility] Comment on above: Performed By: #### B MP, LIPID, AST, TSH, ALT #### [facility] [address] [place] [address] Dr. Viri Strong URIC ACID SERUMon 01-03-2022 Urate [Mass/Vol] 8.7 mg/dL Critically high 2.6-6.0 [facility] Comment on above: Performed By: #### M G, URIC, RENAL #### [facility] [address] [place] [address] Dr. Viri Strong URINE T PROTEIN CREAT RATIOo n 01-03-2022 Protein (U) [Mass/Vol] 30.8 mg/dL Critically high <=12.0 [facility] Comment on above: Performed By: #### B MP, LIPID, AST, TSH, ALT #### [facility] [address] [place] [address] Dr. Viri Strong UR PROT CREAT RAT 0.[address] [facility] Comment on above: Performed By: #### B MP, LIPID, AST, TSH, ALT #### [facility] [address] [place] [address] Dr. Viri Strong URINE CREAT 118.48 mg/dL Normal 20.00-300.0 0 [facility] Comment on above: Performed By: #### B MP, LIPID, AST, TSH, ALT #### [facility] [address] [address] [address] Viri Strong VITAMIN D 25 OHon 01-03-2022 VIT D 25-OH 36.5 ng/mL Normal [facility] Comment on above: Performed By: #### B MP, LIPID, AST, TSH, ALT #### [facility] [address] [address] [address] Viri Strong VIT D RANGES SEE BELOW Normal [facility] Comment on above: Result Comment: <20 ng/mL Vit D deficient 20 - <30 ng/mL Vit D insufficient 30 - 100 ng/mL Vit D sufficient >100 ng/mL Potential Toxicity Performed By: #### B MP, LIPID, AST, TSH, ALT #### [facility] [address] [address] [address] Viri Strong MICROALBUMIN URINEon 022 Albumin, Urine 5.1 ug/mL Normal Not Estab. [facility] Comment on above: Performed By: #### B MP, LIPID, AST, TSH, ALT #### [facility] [address] [address] [address] Viri Strong VIT D 25-OH LABCORPon 2021 Vitamin D, 25-Hydroxy 36.7 ng/mL Normal 30.0-100.0 [facility] Comment on above: Result Comment: Silvina min D deficiency has been defined by the [place] of [employer] and an Endocrine Society practice guideline as a level of serum 25-OH vitamin D less than 20 ng/mL (1,2). The Endocrine Society went on to further define vitamin D insufficiency as a level between 21 and 29 ng/mL (2). 1. IOM ([place] of [employer]). 2010. Dietary reference intakes for calcium and D. [place]: The National Academies Press. 2. Levon CHILDERS, Prakash CHAVEZ, Diamond KIRBY, et al. Evaluation, treatment, and prevention of vitamin D deficiency: an Endocrine Society clinical practice guideline. JCEM. 2010; 96(7):1911-30. Performed By: #### B MP, LIPID, AST, TSH, ALT #### [facility] [address] [place] [address] Dr. Viri Strong CBC AUTO DIFFon 10-26-2021 BASO # 0.1 103/ul Normal 0.0-0.1 [facility] Comment on above: Performed By: #### B MP, LIPID, AST, TSH, ALT #### [facility] [address] [place] [address] Dr. Viri Strong Basophils/100 WBC (Bld) 1.0 % Normal 0.2-2.0 [facility] Comment on above: Performed By: #### B MP, LIPID, AST, TSH, ALT #### [facility] [address] [place] [address] Dr. Viri Strong EO # 0.2 103/ul Normal 0.0-0.7 [facility] Comment on above: Performed By: #### B MP, LIPID, AST, TSH, ALT #### [facility] [address] [place] [address] Dr. Viri Strong Eosinophils/100 WBC (Bld) 4.6 % Normal 0.9-7.0 [facility] Comment on above: Performed By: #### B MP, LIPID, AST, TSH, ALT #### [facility] [address] [place] [address] Dr. Viri Strong Erythrocyte distribution width (RBC) [Ratio] 13.5 % Normal 11.0-15.0 [facility] Comment on above: Performed By: #### B MP, LIPID, AST, TSH, ALT #### [facility] [address] [place] [address] Dr. Viri Strong Hematocrit (Bld) [Volume fraction] 32.3 % Critically low 36.0-48.0 [facility] Comment on above: Performed By: #### B MP, LIPID, AST, TSH, ALT #### [facility] [address] [place] [address] Dr. Viri Strong Hemoglobin (Bld) [Mass/Vol] 10.7 g/dL Critically low 12.0-16.0 [facility] Comment on above: Performed By: #### B MP, LIPID, AST, TSH, ALT #### [facility] [address] [place] [address] Dr. Viri Strong IG # 0.01 10e3/ul Normal 0.00-0.03 [facility] Comment on above: Performed By: #### B MP, LIPID, AST, TSH, ALT #### [facility] [address] [place] [address] Dr. Viri Strong IG % 0.2 % Normal 0.0-0.5 [facility] Comment on above: Performed By: #### B MP, LIPID, AST, TSH, ALT #### [facility] [address] [place] [address] Dr. Viri Strong LYMPH # 1.3 103/ul Normal 1.2-3.8 [facility] Comment on above: Performed By: #### B MP, LIPID, AST, TSH, ALT #### [facility] [address] [place] [address] Dr. Viri Strong Lymphocytes/100 WBC (Bld) 25.5 % Normal 20.5-60.0 [facility] Comment on above: Performed By: #### B MP, LIPID, AST, TSH, ALT #### [facility] [address] [place] [address] Dr. Viri Strong MANUAL DIFF REQ NO Normal [place] Comment on above: Performed By: #### B MP, LIPID, AST, TSH, ALT #### [facility] [address] [place] [address] Dr. Viri Strong MCH (RBC) [Entitic mass] 29.3 pg Normal 26.7-34.0 [facility] Comment on above: Performed By: #### B MP, LIPID, AST, TSH, ALT #### [facility] [address] [place] [address] Dr. Viri Strong MCHC (RBC) [Mass/Vol] 33.1 g/dL Normal 29.9-35.2 [facility] Comment on above: Performed By: #### B MP, LIPID, AST, TSH, ALT #### [facility] [address] [place] [address] Dr. Viri Strong MCV (RBC) [Entitic vol] 88.5 fL Normal 81.0-99.0 [facility] Comment on above: Performed By: #### B MP, LIPID, AST, TSH, ALT #### [facility] [address] [place] [address] Dr. Viri Strong MONO # 0.4 103/ul Normal 0.3-0.8 [facility] Comment on above: Performed By: #### B MP, LIPID, AST, TSH, ALT #### [facility] [address] [place] [address] Dr. Viri Strong Monocytes/100 WBC (Bld) 8.0 % Normal 1.7-12.0 [facility] Comment on above: Performed By: #### B MP, LIPID, AST, TSH, ALT #### [facility] [address] [place] [address] Dr. Viri Strong NEUT # 3.0 103/ul Normal 1.4-6.5 [facility] Comment on above: Performed By: #### B MP, LIPID, AST, TSH, ALT #### [facility] [address] [place] [address] Dr. Viri Strong Neutrophils/100 WBC (Bld) 60.7 % Normal 43.0-75.0 [facility] Comment on above: Performed By: #### B MP, LIPID, AST, TSH, ALT #### [facility] [address] [place] [address] Dr. Viri Strong Platelet mean volume (Bld) [Entitic vol] 9.8 fL Normal 9.5-13.5 [facility] Comment on above: Performed By: #### B MP, LIPID, AST, TSH, ALT #### [facility] [address] [place] [address] Dr. Viri Strong PLT 266 103/ul Normal 150-450 [facility] Comment on above: Performed By: #### B MP, LIPID, AST, TSH, ALT #### [facility] [address] [place] [address] Dr. Viri Strong RBC 3.65 106/ul Critically low 4.20-5.40 [place] Comment on above: Performed By: #### B MP, LIPID, AST, TSH, ALT #### [facility] [address] [address] [address] Viri Strong WBC 5.0 103/ul Normal 4.0-11.0 [facility] Comment on above: Performed By: #### B MP, LIPID, AST, TSH, ALT #### [facility] [address] [address] [address] Viri Strong GLYCOHEMOGLOBIN A1Con 2021 ADA RECOMMENDATION SEE BELOW Normal [facility] Comment on above: Result Comment: ADA RECOMMENDED LIMIT 4.0 - 6.0 ADA THERAPEUTIC TARGET < 7.0 ACTION SUGGESTED > 7.0 Performed By: #### B MP, LIPID, AST, TSH, ALT #### [facility] [address] [place] [address] Dr. Viri Strong Glucose [Mass/Vol] 117 mg/dL Normal [facility] Comment on above: Performed By: #### B MP, LIPID, AST, TSH, ALT #### [facility] [address] [address] [address] Viri Strong HbA1c (Bld) [Mass fraction] 5.7 % Normal 4.5-6.2 [facility] Comment on above: Performed By: #### B MP, LIPID, AST, TSH, ALT #### [facility] [address] [place] [address] Dr. Viri Strong LIPID PROFILEon 10-26-2021 CHOL-HDL RATIO NORM SEE BELOW Normal [facility] Comment on above: Result Comment: 3.3 - 4.4 LOW RISK 4.4 - 7.1 AVERAGE RISK 7.1 - 11.0 MODERATE RISK >11.0 HIGH RISK Performed By: #### B MP, LIPID, AST, TSH, ALT #### [facility] [address] [place] [address] Dr. Viri Strong Cholesterol [Mass/Vol] 158 mg/dL Normal <=200 [facility] Comment on above: Performed By: #### B MP, LIPID, AST, TSH, ALT #### [facility] [address] [address] [address] Viri Strong Cholesterol in HDL [Mass/Vol] 86 mg/dL Critically high 40-60 [facility] Comment on above: Performed By: #### B MP, LIPID, AST, TSH, ALT #### [facility] [address] [address] [address] Viri Strong Cholesterol in LDL [Mass/Vol] 50.0 mg/dL Normal [facility] Comment on above: Performed By: #### B MP, LIPID, AST, TSH, ALT #### [facility] [address] [address] [address] Viri Strong Cholesterol.total/Cholest ana in HDL [Mass ratio] 1.8 {ratio} Normal [facility] Comment on above: Performed By: #### B MP, LIPID, AST, TSH, ALT #### [facility] [address] [address] [address] Viri Strong HDL NORMAL > or = 60 mg/dl - LOW CARDIOVASCULAR RISK <40 mg/dl - HIGH CARDIOVASCULAR RISK Normal [facility] Comment on above: Performed By: #### B MP, LIPID, AST, TSH, ALT #### [facility] [address] [address] [address] Viri Strong LDL CALC NORMAL SEE BELOW Normal [place] Comment on above: Result Comment: <100 mg/dl OPTIMAL 100 - 129 mg/dl NEAR OR ABOVE OPTIMAL 130 - 159 mg/dl BORDERLINE HIGH 160 - 189 mg/dl HIGH >190 mg/dl VERY HIGH Performed By: #### B MP, LIPID, AST, TSH, ALT #### [facility] [address] [address] [address] Viri Strong Triglyceride [Mass/Vol] 110 mg/dL Normal <=150 T [facility] Comment on above: Performed By: #### B MP, LIPID, AST, TSH, ALT #### [facility] [address] [address] [address] Viri Strong VLDL CALC 22.0 mg/dL Normal [facility] Comment on above: Performed By: #### B MP, LIPID, AST, TSH, ALT #### [facility] [address] [place] [address] Dr. Viri Strong PROF CHEM 8 (BAS METB)on Anion gap [Moles/Vol] 13.8 mmol/L Normal [facility] Comment on above: Performed By: #### B MP, LIPID, AST, TSH, ALT #### [facility] [address] [place] [address] Dr. Viri Strong Calcium [Mass/Vol] 9.3 mg/dL Normal 8.5-10.1 [facility] Comment on above: Performed By: #### B MP, LIPID, AST, TSH, ALT #### [facility] [address] [place] [address] Dr. Viri Strong Chloride [Moles/Vol] 92 mmol/L Critically low 98-107 [facility] Comment on above: Performed By: #### B MP, LIPID, AST, TSH, ALT #### [facility] [address] [place] [address] Dr. Viri Strong CO2 [Moles/Vol] 26.0 mmol/L Normal 21.0-32.0 [facility] Comment on above: Performed By: #### B MP, LIPID, AST, TSH, ALT #### [facility] [address] [place] [address] Dr. Viri Strong Creatinine [Mass/Vol] 1.15 mg/dL Critically high 0.55-1.02 [facility] Comment on above: Performed By: #### B MP, LIPID, AST, TSH, ALT #### [facility] [address] [place] [address] Dr. Viri Strong EGFR-AF TUVALUAN 56 mL/min/1.73m2 Critically low >=60 [facility] Comment on above: Performed By: #### B MP, LIPID, AST, TSH, ALT #### [facility] [address] [place] [address] Dr. Viri Strong EGFR-NON AF TUVALUAN 46 mL/min/1.73m2 Critically low >=60 [facility] Comment on above: Performed By: #### B MP, LIPID, AST, TSH, ALT #### [facility] [address] [address] [address] Viri Strong Glucose [Mass/Vol] 92 mg/dL Normal 74-106 [facility] Comment on above: Performed By: #### B MP, LIPID, AST, TSH, ALT #### [facility] [address] [place] [address] Dr. Viri Strong Potassium [Moles/Vol] 4.8 mmol/L Normal 3.5-5.1 [facility] Comment on above: Performed By: #### B MP, LIPID, AST, TSH, ALT #### [facility] [address] [place] [address] Dr. Viri Strong Sodium [Moles/Vol] 127 mmol/L Critically low 136-145 [facility] Comment on above: Performed By: #### B MP, LIPID, AST, TSH, ALT #### [facility] [address] [place] [address] Dr. Viri Strong Urea nitrogen [Mass/Vol] 19.0 mg/dL Critically high 7.0-18 .0 [facility] Comment on above: Performed By: #### B MP, LIPID, AST, TSH, ALT #### [facility] [address] [place] [address] Dr. Viri Strong Urea nitrogen/Creatinine [Mass ratio] 16.5 mg/mg Normal [facility] Comment on above: Performed By: #### B MP, LIPID, AST, TSH, ALT #### [facility] [address] [place] [address] Dr. Viri Strong SGOTon 10-26-2021 AST [Catalytic activity/Vol] 15 U/L Normal 15-37 [facility] Comment on above: Performed By: #### B MP, LIPID, AST, TSH, ALT #### [facility] [address] [place] [address] Dr. Viri Strong SGPTon 10-26-2021 ALT [Catalytic activity/Vol] 25 U/L Normal 14-59 [facility] Comment on above: Performed By: #### B MP, LIPID, AST, TSH, ALT #### [facility] [address] [address] [address] Viri Strong TSHon 10-26-2021 TSH 1.833 uIU/mL Normal 0.358-3.740 [facility] Comment on above: Performed By: #### B MP, LIPID, AST, TSH, ALT #### [facility] [address] [place] [address] Dr. Viri Strong FREE LIGHT CHAINS PLUS RATIO on 06-03-2021 Free [place] Lt Chains,S 26.6 mg/L Critically high 3.3-19.4 [facility] Comment on above: Performed By: #### B MP, LIPID, AST, TSH, ALT #### [facility] [address] [place] [address] Dr. Viir Strong Free Lambda Lt Chains,S 19.6 mg/L Normal 5.7-26.3 [facility] Comment on above: Performed By: #### B MP, LIPID, AST, TSH, ALT #### [facility] [address] [place] [address] Dr. Viri Strong [place]/Lambda Ratio, S 1.36 Normal 0.26-1.65 [facility] Comment on above: Performed By: #### B MP, LIPID, AST, TSH, ALT #### [facility] [address] [place] [address] Dr. Viri Strong IMMUNOFIXATION (MONIKA), URINEo n 06-03-2021 MONIKA Interpretation:U Comment Normal [facility] Comment on above: Result Comment: No m onoclonality detected. Performed By: #### B MP, LIPID, AST, TSH, ALT #### [facility] [address] [place] [address] Dr. Viri Strong PROTEIN ELECTROPHERESIS URIN E RANDOMon 06-03-2021 Albumin, U 60.9 % Normal [facility] Comment on above: Performed By: #### U PTE #### [facility] [address] [place] [address] Dr. Viri Strong Alpha-1 Globulin U 3.9 % Normal [facility] Comment on above: Performed By: #### U PTE #### [facility] [address] [address] [address] Viri Strong Alpha-2 Glubulin U 8.2 % Normal [facility] Comment on above: Performed By: #### U PTE #### [facility] [address] [address] [address] Viri Strong Beta Globulin, U 17.3 % Normal [facility] Comment on above: Performed By: #### U PTE #### [facility] [address] [address] [address] Viri Strong Gamma Globulin U 9.7 % Normal [facility] Comment on above: Performed By: #### U PTE #### [facility] [address] [place] [address] Dr. Viri Strong M-Ciro, % Not Observed Normal Not Observed [facility] Comment on above: Performed By: #### U PTE #### [facility] [address] [place] [address] Dr. Viri Strong PDF . Normal [facility] Comment on above: Performed By: #### U PTE #### [facility] [address] [place] [address] Dr. Viri Strong Please note: Comment Normal [facility] Comment on above: Result Comment: Prot ein electrophoresis scan will follow via computer, mail, or rn pediatric delivery. Performed By: #### U PTE #### [facility] [address] [place] [address] Dr. Viri Strong Protein (U) [Mass/Vol] 12.2 mg/dL Normal Not Estab. [facility] Comment on above: Performed By: #### U PTE #### [facility] [address] [place] [address] Dr. Viri Strong HEP B SURFACE AGon 2 HBsAg Screen Negative Normal Negative [facility] Comment on above: Performed By: #### B MP, LIPID, AST, TSH, ALT #### [facility] [address] [place] [address] Dr. Viri Strong HEPATITIS B SURFACE ANTIBODY , QUANTon 06-02-2021 Hepatitis B Surf AB Quant <3.1 Critically low Immunity>9. 9 [facility] Comment on above: Result Comment: Stat us of Immunity Anti-HBs Level Inconsistent with Immunity 0.0 - 9.9 Consistent with Immunity >9.9 Performed By: #### B MP, LIPID, AST, TSH, ALT #### [facility] [address] [place] [address] Dr. Viri Strong HEPATITIS C VIRUS AB W/ REFL EX QUANTon 06-02-2021 HCV AB <0.1 Normal 0.0-0.9 [facility] Comment on above: Performed By: #### H CVPCRR #### [facility] [address] [place] [address] Dr. Viri Strong Interpretation: Comment Normal [place] Comment on above: Result Comment: Nega tive Not infected with HCV, unless recent infection is suspected or other evidence exists to indicate HCV infection. Performed By: #### H CVPCRR #### [facility] [address] [place] [address] Dr. Viri Strong IMMUNOFIXATION (MONIKA), SERUMo n 06-02-2021 IMMUNOFIXATION RESULT Comment Normal [facility] Comment on above: Result Comment: No m onoclonality detected. Performed By: #### B MP, LIPID, AST, TSH, ALT #### [facility] [address] [place] [address] Dr. Viri Strong Immunoglobulin A, Qn, Serum 152 mg/dL Normal 64-422 [facility] Comment on above: Performed By: #### B MP, LIPID, AST, TSH, ALT #### [facility] [address] [place] [address] Dr. Viri Strong Immunoglobulin G, Qn, Serum 510 mg/dL Critically low 586-1602 [facility] Comment on above: Performed By: #### B MP, LIPID, AST, TSH, ALT #### [facility] [address] [place] [address] Dr. Viri Strong Immunoglobulin M, Qn, Serum 68 mg/dL Normal 26-217 [facility] Comment on above: Performed By: #### B MP, LIPID, AST, TSH, ALT #### [facility] [address] [place] [address] Dr. Viri Strong PROTEIN ELECTROPHERESISon Albumin [Mass/Vol] 4.0 g/dL Normal 2.9-4.4 [facility] Comment on above: Performed By: #### B MP, LIPID, AST, TSH, ALT #### [facility] [address] [place] [address] Dr. Viri Strong Albumin/Globulin [Mass ratio] 1.4 {ratio} Normal 0.7-1.7 [facility] Comment on above: Performed By: #### B MP, LIPID, AST, TSH, ALT #### [facility] [address] [place] [address] Dr. Viri Strong Yzzyp-1-Pzpfraiq 0.3 g/dL Normal 0.0-0.4 [facility] Comment on above: Performed By: #### B MP, LIPID, AST, TSH, ALT #### [facility] [address] [place] [address] Dr. Viri Strong Tutku-4-Kjlisluw 0.9 g/dL Normal 0.4-1.0 [facility] Comment on above: Performed By: #### B MP, LIPID, AST, TSH, ALT #### [facility] [address] [place] [address] Dr. Viri Strong Beta Globulin 1.1 g/dL Normal 0.7-1.3 [facility] Comment on above: Performed By: #### B MP, LIPID, AST, TSH, ALT #### [facility] [address] [place] [address] Dr. Viri Strong Gamma Globulin 0.6 g/dL Normal 0.4-1.8 [facility] Comment on above: Performed By: #### B MP, LIPID, AST, TSH, ALT #### [facility] [address] [address] [address] Viri Strong Globulin (S) [Mass/Vol] 2.9 g/dL Normal 2.2-3.9 [facility] Comment on above: Performed By: #### B MP, LIPID, AST, TSH, ALT #### [facility] [address] [place] [address] Dr. Viri Strong M-Ciro Not Observed Normal Not Observed [facility] Comment on above: Performed By: #### B MP, LIPID, AST, TSH, ALT #### [facility] [address] [place] [address] Dr. Viri Strong PDF . Normal [facility] Comment on above: Performed By: #### B MP, LIPID, AST, TSH, ALT #### [facility] [address] [place] [address] Dr. Viri Strong Please note: Comment Normal [facility] Comment on above: Result Comment: Prot ein electrophoresis scan will follow via computer, mail, or rn pediatric delivery. Performed By: #### B MP, LIPID, AST, TSH, ALT #### [facility] [address] [place] [address] Dr. Viri Strong Protein [Mass/Vol] 6.9 g/dL Normal 6.0-8.5 [facility] Comment on above: Performed By: #### B MP, LIPID, AST, TSH, ALT #### [facility] [address] [place] [address] Dr. Viri Strong PTH INTACTon 06-02-2021 PTH, Intact 27 pg/mL Normal 15-65 [facility] Comment on above: Performed By: #### B MP, LIPID, AST, TSH, ALT #### [facility] [address] [place] [address] Dr. Viri Strong FERRITINon 06-01-2021 Ferritin [Mass/Vol] 48.0 ng/mL Normal 11.1-264.0 [facility] Comment on above: Performed By: #### B MP, LIPID, AST, TSH, ALT #### [facility] [address] [place] [address] Dr. Viri Strong HEMOGRAM AND PLATELon 2021 Hematocrit (Bld) [Volume fraction] 33.9 % Critically low 36.0-48.0 [facility] Comment on above: Performed By: #### B MP, LIPID, AST, TSH, ALT #### [facility] [address] [place] [address] Dr. Viri Strong Hemoglobin (Bld) [Mass/Vol] 11.1 g/dL Critically low 12.0-16.0 [facility] Comment on above: Performed By: #### B MP, LIPID, AST, TSH, ALT #### [facility] [address] [place] [address] Dr. Viri Strong MCH (RBC) [Entitic mass] 29.8 pg Normal 26.7-34.0 [facility] Comment on above: Performed By: #### B MP, LIPID, AST, TSH, ALT #### [facility] [address] [place] [address] Dr. Viri Strong MCHC (RBC) [Mass/Vol] 32.7 g/dL Normal 29.9-35.2 [facility] Comment on above: Performed By: #### B MP, LIPID, AST, TSH, ALT #### [facility] [address] [place] [address] Dr. Viri Strong MCV (RBC) [Entitic vol] 90.9 fL Normal 81.0-99.0 [facility] Comment on above: Performed By: #### B MP, LIPID, AST, TSH, ALT #### [facility] [address] [place] [address] Dr. Viri Strong PLT 240 103/ul Normal 150-450 [facility] Comment on above: Performed By: #### B MP, LIPID, AST, TSH, ALT #### [facility] [address] [place] [address] Dr. Viri Strong RBC 3.73 106/ul Critically low 4.20-5.40 [facility] Comment on above: Performed By: #### B MP, LIPID, AST, TSH, ALT #### [facility] [address] [address] [address] Viri Strong WBC 7.8 103/ul Normal 4.0-11.0 [facility] Comment on above: Performed By: #### B MP, LIPID, AST, TSH, ALT #### [facility] [address] [place] [address] Dr. Viri Strong IRON AND TIBCon 06-01-2021 % SATURATION 18.0 % Normal [facility] Comment on above: Performed By: #### B MP, LIPID, AST, TSH, ALT #### [facility] [address] [address] [address] Viri Strong Iron [Mass/Vol] 58.0 ug/dL Normal 37.0-170.0 [facility] Comment on above: Performed By: #### B MP, LIPID, AST, TSH, ALT #### [facility] [address] [place] [address] Dr. Viri Strong TIBC DIRECT 323.0 ug/dL Normal 261.0-497.0 [facility] Comment on above: Performed By: #### B MP, LIPID, AST, TSH, ALT #### [facility] [address] [address] [address] Viri Strong MAGNESIUMon 06-01-2021 Magnesium [Mass/Vol] 2.1 mg/dL Normal 1.6-2.3 [facility] Comment on above: Performed By: #### B MP, LIPID, AST, TSH, ALT #### [facility] [address] [place] [address] Dr. Viri Strong RENAL FUNCTION PANELon 06-01 Albumin [Mass/Vol] 4.4 g/dL Normal 3.4-5.0 [facility] Comment on above: Performed By: #### B MP, LIPID, AST, TSH, ALT #### [facility] [address] [place] [address] Dr. Viri Strong Calcium [Mass/Vol] 10.0 mg/dL Normal 8.5-10.1 [facility] Comment on above: Performed By: #### B MP, LIPID, AST, TSH, ALT #### [facility] [address] [address] [address] Viri Strong Chloride [Moles/Vol] 103 mmol/L Normal 98-107 [facility] Comment on above: Performed By: #### B MP, LIPID, AST, TSH, ALT #### [facility] [address] [address] [address] Viri Strong CO2 [Moles/Vol] 26.8 mmol/L Normal 22.0-30.0 [facility] Comment on above: Performed By: #### B MP, LIPID, AST, TSH, ALT #### [facility] [address] [place] [address] Dr. Viri Strong Creatinine [Mass/Vol] 1.18 mg/dL Critically high 0.52-1.04 [facility] Comment on above: Performed By: #### B MP, LIPID, AST, TSH, ALT #### [facility] [address] [place] [address] Dr. Viri Strong EGFR-AF TUVALUAN 54 mL/min/1.73m2 Critically low >=60 [facility] Comment on above: Performed By: #### B MP, LIPID, AST, TSH, ALT #### [facility] [address] [place] [address] Dr. Viri Strong EGFR-NON AF TUVALUAN 45 mL/min/1.73m2 Critically low >=60 [facility] Comment on above: Performed By: #### B MP, LIPID, AST, TSH, ALT #### [facility] [address] [place] [address] Dr. Viri Strong Glucose [Mass/Vol] 93 mg/dL Normal 74-106 [facility] Comment on above: Performed By: #### B MP, LIPID, AST, TSH, ALT #### [facility] [address] [place] [address] Dr. Viri Strong Phosphate [Mass/Vol] 4.1 mg/dL Normal 2.5-4.5 [facility] Comment on above: Performed By: #### B MP, LIPID, AST, TSH, ALT #### [facility] [address] [place] [address] Dr. Viri Strong Potassium [Moles/Vol] 4.8 mmol/L Normal 3.4-5.0 [facility] Comment on above: Performed By: #### B MP, LIPID, AST, TSH, ALT #### [facility] [address] [place] [address] Dr. Viri Strong Sodium [Moles/Vol] 140 mmol/L Normal 137-145 [facility] Comment on above: Performed By: #### B MP, LIPID, AST, TSH, ALT #### [facility] [address] [place] [address] Dr. Viri Strong Urea nitrogen [Mass/Vol] 24.0 mg/dL Critically high 7.0-18 .0 [facility] Comment on above: Performed By: #### B MP, LIPID, AST, TSH, ALT #### [facility] [address] [place] [address] Dr. Viri Strong UA RANDOM W/MICROSCOPICon BACTERIA TRACE Abnormal NONE SEEN [facility] Comment on above: Performed By: #### B MP, LIPID, AST, TSH, ALT #### [facility] [address] [place] [address] Dr. Viri Strong Bilirubin Ql (U) Negative Normal NEGATIVE [facility] Comment on above: Performed By: #### B MP, LIPID, AST, TSH, ALT #### [facility] [address] [place] [address] Dr. Viri Strong CAST NONE SEEN Normal NONE SEEN [facility] Comment on above: Performed By: #### B MP, LIPID, AST, TSH, ALT #### [facility] [address] [place] [address] Dr. Viri Strong Clarity (U) CLEAR Normal CLEAR [facility] Comment on above: Performed By: #### B MP, LIPID, AST, TSH, ALT #### [facility] [address] [place] [address] Dr. Viri Strong Color (U) LT. YELLOW Normal YELLOW [facility] Comment on above: Performed By: #### B MP, LIPID, AST, TSH, ALT #### [facility] [address] [address] [address] iVri Strong Crystals LM Nom (Urine sed) NONE SEEN Normal NONE SEEN [facility] Comment on above: Performed By: #### B MP, LIPID, AST, TSH, ALT #### [facility] [address] [address] [address] Viri Strong Epithelial cells LM Ql (Urine sed) RARE Normal NONE SEEN /RARE [facility] Comment on above: Performed By: #### B MP, LIPID, AST, TSH, ALT #### [facility] [address] [address] [address] Viri Strong Glucose Ql (U) Negative Normal NEGATIVE [facility] Comment on above: Performed By: #### B MP, LIPID, AST, TSH, ALT #### [facility] [address] [address] [address] Viri Strong Hemoglobin Ql (U) Negative Normal NEGATIVE [facility] Comment on above: Performed By: #### B MP, LIPID, AST, TSH, ALT #### [facility] [address] [address] [address] Viri Strong Ketones Ql (U) Negative Normal NEGATIVE [facility] Comment on above: Performed By: #### B MP, LIPID, AST, TSH, ALT #### [facility] [address] [address] [address] Viri Strong LEUKOCYTES MODERATE Abnormal NEGATIVE [facility] Comment on above: Performed By: #### B MP, LIPID, AST, TSH, ALT #### [facility] [address] [address] [address] Viri Strong MUCOUS NONE SEEN Normal NONE SEEN [facility] Comment on above: Performed By: #### B MP, LIPID, AST, TSH, ALT #### [facility] [address] [address] [address] Viri Strong Nitrite Ql (U) Negative Normal NEGATIVE [facility] Comment on above: Performed By: #### B MP, LIPID, AST, TSH, ALT #### [facility] [address] [address] [address] Viri Strong pH (U) 6.0 [pH] Normal 5-9 [facility] Comment on above: Performed By: #### B MP, LIPID, AST, TSH, ALT #### [facility] [address] [place] [address] Dr. Viri Strong RBC 0-2 Normal 0-2 [facility] Comment on above: Performed By: #### B MP, LIPID, AST, TSH, ALT #### [facility] [address] [place] [address] Dr. Viri Strong SPEC GRAVITY 1.010 Normal 1.005-<=1.0 25 [facility] Comment on above: Performed By: #### B MP, LIPID, AST, TSH, ALT #### [facility] [address] [place] [address] Dr. Viri Strong UA PROTEIN Negative Normal NEGATIVE/ TRACE [facility] Comment on above: Performed By: #### B MP, LIPID, AST, TSH, ALT #### [facility] [address] [place] [address] Dr. Viri Strong Urobilinogen Qn (U) 0.2 {Alem'U}/dL Normal 0.2 - 1. 0 [facility] Comment on above: Performed By: #### B MP, LIPID, AST, TSH, ALT #### [facility] [address] [place] [address] Dr. Viri Strong WBC 2-5 Abnormal NONE SEEN [facility] Comment on above: Performed By: #### B MP, LIPID, AST, TSH, ALT #### [facility] [address] [place] [address] Dr. Viri Strong URIC ACID SERUMon 06-01-2021 Urate [Mass/Vol] 7.4 mg/dL Critically high 2.5-6.2 [facility] Comment on above: Performed By: #### B MP, LIPID, AST, TSH, ALT #### [facility] [address] [place] [address] Dr. Viri Strong URINE T PROTEIN CREAT RATIOo n 06-01-2021 Protein (U) [Mass/Vol] 15.1 mg/dL Critically high <=12.0 [facility] Comment on above: Performed By: #### B MP, LIPID, AST, TSH, ALT #### [facility] [address] [address] [address] Viri Strong UR PROT CREAT RAT 0.29 Normal [facility] Comment on above: Performed By: #### B MP, LIPID, AST, TSH, ALT #### [facility] [address] [address] [address] Viri Strong URINE CREAT 52.27 mg/dL Normal 20.00-300.0 0 [facility] Comment on above: Performed By: #### B MP, LIPID, AST, TSH, ALT #### [facility] [address] [place] [address] Dr. Viri Strong VITAMIN D 25 OHon 06-01-2021 VIT D 25-OH 38.9 ng/mL Normal [facility] Comment on above: Performed By: #### B MP, LIPID, AST, TSH, ALT #### [facility] [address] [place] [address] Dr. Viri Strong VIT D RANGES SEE BELOW Normal [facility] Comment on above: Result Comment: <20 ng/mL Vit D deficient 20 - <30 ng/mL Vit D insufficient 30 - 100 ng/mL Vit D sufficient >100 ng/mL Potential Toxicity Performed By: #### B MP, LIPID, AST, TSH, ALT #### [facility] [address] [place] [address] Dr. Viri Strong Reminderson 06-28-2019 Reminders - From: Donna Fiore MA To: EU - Clinical; Sent: 01/16/2019 14:46:43 EST Show up: 04/16/2019 07:00:00 EST Subject: Ambulatory Reminder Due Date/Time: 04/30/2019 07:00:00 EST Reminder/Recall pt is scheduled for Renal US @[facility] on 04/15/18. Has f/u w/PRW on 05/01/18. Renal US & CXR scheduled for 04/15/18 8am @[facility]. No results in chart yet Per [facility] central scheduling, appt was cancelled and Pt stated she would call back to reschedule. Appt was cancelled 04/12/2019. Pt being sent cert letter. See other message pt r/s for renal us and cxr 07/02/2019 @ 8:45am, [facility]. F/u appt 07/08/19 for results.LG Normal [facility] Reminderson 01-21-2019 Reminders - From: Donna Fiore MA To: EU - Recalls Michelle; Sent: 01/16/2019 14:06:32 EST Show up: 01/16/2019 07:00:00 EST Subject: needs Renal US & CXR Due Date/Time: 02/02/2019 07:00:00 EST Reminder/Recall pt needs scheduled for 2yr f/u w/Renal US & CXR. done Normal [facility] Vital Signs Date Time Vital Sign Value Performing Clinician Facility 06-03-2024 09:56-0400 Body height 154.9 cm Misael Perez MD Work Phone: [facility] 06-03-2024 09:56-0400 Body mass index (BMI) [Ratio] 35.33 kg/m2 Misael Perez MD Work Phone: [facility] 06-03-2024 09:56-0400 Body temperature 96.4 [degF] Misael Perez MD Work Phone: [facility] 06-03-2024 09:56-0400 Body weight 84.82 kg Misael Perez MD Work Phone: [facility] 06-03-2024 09:56-0400 Diastolic blood pressure 58 mm[Hg] Misael Perez MD Work Phone: [facility] 06-03-2024 09:56-0400 Heart rate 52 /min Misael Perez MD Work Phone: [facility] 06-03-2024 09:56-0400 Respiratory rate 22 /min Misael Perez MD Work Phone: [facility] 06-03-2024 09:56-0400 SaO2% (BldA) [Mass fraction] 93 % Misael Perez MD Work Phone: [facility] 06-03-2024 09:56-0400 Systolic blood pressure 112 mm[Hg] Misael Perez MD Work Phone: [facility] 01-02-2024 08:12-0400 Body height 154.94 cm MD Misael Perez Work Phone: [facility] 01-02-2024 08:12-0400 Body mass index (BMI) [Ratio] 33.8 kg/m2 MD Misael Perez Work Phone: [facility] 01-02-2024 08:12-0400 Body temperature 96.5 [degF] MD Misael Perez Work Phone: [facility] 01-02-2024 08:12-0400 Body weight 81.24 kg MD Misael Perez Work Phone: [facility] 01-02-2024 08:12-0400 Diastolic blood pressure 70 mm[Hg] MD Misael Perez Work Phone: [facility] 01-02-2024 08:12-0400 Heart rate 63 /min MD Misael Perez Work Phone: [facility] 01-02-2024 08:12-0400 Respiratory rate 16 /min MD iMsael Perez Work Phone: [facility] 01-02-2024 08:12-0400 SaO2% (BldA) [Mass fraction] 95 % MD Misael Perez Work Phone: [facility] 01-02-2024 08:12-0400 Systolic blood pressure 113 mm[Hg] MD Misael Perez Work Phone: [facility] 12-04-2023 08:58-0400 Body height 154.9 cm Misael Perez MD Work Phone: [facility] 12-04-2023 08:58-0400 Body mass index (BMI) [Ratio] 33.25 kg/m2 Misael Perez MD Work Phone: [facility] 12-04-2023 08:58-0400 Body temperature 97.11 [degF] Misael Perez MD Work Phone: [facility] 12-04-2023 08:58-0400 Body weight 79.83 kg Misael Perez MD Work Phone: [facility] 12-04-2023 08:58-0400 Diastolic blood pressure 56 mm[Hg] Misael Perez MD Work Phone: [facility] 12-04-2023 08:58-0400 Heart rate 61 /min Misael Perez MD Work Phone: [facility] 12-04-2023 08:58-0400 Respiratory rate 22 /min Misael Perez MD Work Phone: [facility] 12-04-2023 08:58-0400 SaO2% (BldA) [Mass fraction] 97 % Misael Perez MD Work Phone: [facility] 12-04-2023 08:58-0400 Systolic blood pressure 128 mm[Hg] Misael Perez MD Work Phone: [facility] 11-22-2023 10:34-0400 Body height 154.94 cm Misael Perez MD Work Phone: [facility] 11-22-2023 10:34-0400 Body weight 78.01 kg Misael Perez MD Work Phone: [facility] 10-10-2023 13:10-0400 Body height 154.94 cm MD Misael Perez Work Phone: [facility] 10-10-2023 13:10-0400 Body mass index (BMI) [Ratio] 34 kg/m2 MD Misael Perez Work Phone: [facility] 10-10-2023 13:10-0400 Body weight 81.64 kg MD Misael Perez Work Phone: [facility] 09-25-2023 09:59-0400 Body height 154.94 cm MD Misael Perez Work Phone: [facility] 09-25-2023 09:59-0400 Body mass index (BMI) [Ratio] 34.2 kg/m2 MD Misael Perez Work Phone: [facility] 09-25-2023 09:59-0400 Body weight 82.1 kg MD Misael Perez Work Phone: [facility] 09-25-2023 09:59-0400 Diastolic blood pressure 88 mm[Hg] MD Misael Perez Work Phone: [facility] 09-25-2023 09:59-0400 Heart rate 60 /min MD Misael Perez Work Phone: [facility] 09-25-2023 09:59-0400 Systolic blood pressure 138 mm[Hg] MD Misael Perez Work Phone: [facility] 08-21-2023 10:18-0400 Body height 154.94 cm MD Misael Perez Work Phone: [facility] 08-21-2023 10:18-0400 Body mass index (BMI) [Ratio] 34.1 kg/m2 MD Misael Perez Work Phone: [facility] 08-21-2023 10:18-0400 Body temperature 96.6 [degF] MD Misael Perez Work Phone: [facility] 08-21-2023 10:18-0400 Body weight 82 kg MD Misael Perez Work Phone: [facility] 08-21-2023 10:18-0400 Diastolic blood pressure 55 mm[Hg] MD Misael Perez Work Phone: [facility] 08-21-2023 10:18-0400 Heart rate 54 /min MD Misael Perez Work Phone: [facility] 08-21-2023 10:18-0400 Respiratory rate 16 /min MD Misael Perez Work Phone: [facility] 08-21-2023 10:18-0400 SaO2% (BldA) [Mass fraction] 96 % MD Misael Perez Work Phone: [facility] 08-21-2023 10:18-0400 Systolic blood pressure 117 mm[Hg] MD Misael Perez Work Phone: [facility] 08-15-2023 14:00-0400 Body temperature 97.9 [degF] MD Misael Perez Work Phone: [facility] 08-15-2023 14:00-0400 Diastolic blood pressure 81 mm[Hg] MD Misael Perez Work Phone: [facility] 08-15-2023 14:00-0400 Heart rate 58 /min MD Misael Perez Work Phone: [facility] 08-15-2023 14:00-0400 Respiratory rate 18 /min MD Misael Perez Work Phone: [facility] 08-15-2023 14:00-0400 SaO2% (BldA) [Mass fraction] 96 % MD Misael Perez Work Phone: [facility] 08-15-2023 14:00-0400 Systolic blood pressure 135 mm[Hg] MD Misael Perez Work Phone: [facility] 08-15-2023 06:00-0400 Body weight 83.9 kg MD Misael Perez Work Phone: [facility] 08-14-2023 21:53-0400 Body height 154.94 cm MD Misael Perez Work Phone: [facility] 08-14-2023 20:03-0400 Diastolic blood pressure 72 mm[Hg] MD Misael Perez Work Phone: [facility] 08-14-2023 20:03-0400 Heart rate 62 /min MD Misael Perez Work Phone: [facility] 08-14-2023 20:03-0400 Respiratory rate 21 /min MD Misael Perez Work Phone: [facility] 08-14-2023 20:03-0400 SaO2% (BldA) [Mass fraction] 98 % MD Misael Perez Work Phone: [facility] 08-14-2023 20:03-0400 Systolic blood pressure 172 mm[Hg] MD Misael Perez Work Phone: [facility] 08-14-2023 16:28-0400 Body height 154.94 cm MD Misael Perez Work Phone: [facility] 08-14-2023 16:28-0400 Body temperature 98.1 [degF] MD Misael Perez Work Phone: [facility] 08-14-2023 16:28-0400 Body weight 83.9 kg MD Misael Perez Work Phone: [facility] 07-18-2023 10:07-0400 Body height 160.02 cm MD Misael Perez Work Phone: [facility] 07-18-2023 10:07-0400 Body mass index (BMI) [Ratio] 33.3 kg/m2 MD Misael Perez Work Phone: [facility] 07-18-2023 10:07-0400 Body temperature 96.4 [degF] MD Misael Perez Work Phone: [facility] 07-18-2023 10:07-0400 Body weight 85.47 kg MD Misael Perez Work Phone: [facility] 07-18-2023 10:07-0400 Diastolic blood pressure 64 mm[Hg] MD Misael Perez Work Phone: [facility] 07-18-2023 10:07-0400 Heart rate 68 /min MD Misael Perez Work Phone: [facility] 07-18-2023 10:07-0400 Respiratory rate 16 /min MD Misael Perez Work Phone: [facility] 07-18-2023 10:07-0400 SaO2% (BldA) [Mass fraction] 94 % MD Misael Perez Work Phone: [facility] 07-18-2023 10:07-0400 Systolic blood pressure 99 mm[Hg] MD Misael Perez Work Phone: [facility] 07-13-2023 11:55-0400 Body height 160.02 cm [facility] 07-13-2023 11:55-0400 Body mass index (BMI) [Ratio] 33.3 kg/m2 [facility] 07-13-2023 11:55-0400 Body temperature 97.3 [degF] [facility] 07-13-2023 11:55-0400 Body weight 85.36 kg [facility] 07-13-2023 11:55-0400 Diastolic blood pressure 70 mm[Hg] [facility] 07-13-2023 11:55-0400 Heart rate 55 /min [facility] 07-13-2023 11:55-0400 Respiratory rate 16 /min [facility] 07-13-2023 11:55-0400 SaO2% (BldA) [Mass fraction] 95 % [facility] 07-13-2023 11:55-0400 Systolic blood pressure 102 mm[Hg] [facility] 04-18-2023 10:32-0500 Body height 160 cm Felipe Schaefer DO Work Phone: [facility] 04-18-2023 10:32-0500 Body mass index (BMI) [Ratio] 33.48 kg/m2 Felipe Smithston DO Work Phone: [facility] 04-18-2023 10:32-0500 Body weight 85.73 kg Felipe Schaefer DO Work Phone: [facility] 03-14-2023 15:20-0500 Body height 160.02 cm Aleyda Dennis Other [facility] Other 03-14-2023 15:20-0500 Body mass index (BMI) [Ratio] 33.19 kg/m2 Aleyda Dennis Other [facility] Other 03-14-2023 15:20-0500 Body temperature 96.6 [degF] Aleyda Dennis Other [facility] Other 03-14-2023 15:20-0500 Body weight 85 kg Aleyda Dennis Other [facility] Other 03-14-2023 15:20-0500 Diastolic blood pressure 75 mm[Hg] Aleyda Dennis Other [facility] Other 03-14-2023 15:20-0500 Respiratory rate 18 /min Aleyda Dennis Other [facility] Other 03-14-2023 15:20-0500 SaO2% (BldA) [Mass fraction] 96 % Aleyda Dennis Other [facility] Other 03-14-2023 15:20-0500 Systolic blood pressure 123 mm[Hg] Aleyda Dennis Other [facility] Other 02-21-2023 10:40-0500 Body height 160.02 cm Aleyda Dennis Other [facility] Other 02-21-2023 10:40-0500 Body mass index (BMI) [Ratio] 33.9 kg/m2 Aleyda Dennis Other [facility] Other 02-21-2023 10:40-0500 Body temperature 96.2 [degF] Aleyda Dennis Other [facility] Other 02-21-2023 10:40-0500 Body weight 86.82 kg Aleyda Dennis Other [facility] Other 02-21-2023 10:40-0500 Diastolic blood pressure 71 mm[Hg] Aleyda Dennis Other [facility] Other 02-21-2023 10:40-0500 Respiratory rate 18 /min Aleyda Dennis Other [facility] Other 02-21-2023 10:40-0500 SaO2% (BldA) [Mass fraction] 96 % Aleyda Dennis Other [facility] Other 02-21-2023 10:40-0500 Systolic blood pressure 108 mm[Hg] Aleyda Dennis Other [facility] Other 08-04-2022 12:00-0400 Body height 160.02 cm Aleyda Dennis Other [facility] Other 08-04-2022 12:00-0400 Body mass index (BMI) [Ratio] 33.69 kg/m2 Aleyda Dennis Other [facility] Other 08-04-2022 12:00-0400 Body temperature 96.8 [degF] Aleyda Dennis Other [facility] Other 08-04-2022 12:00-0400 Body weight 86.27 kg Aleyda Dennis Other [facility] Other 08-04-2022 12:00-0400 Diastolic blood pressure 86 mm[Hg] Aleyda Dennis Other [facility] Other 08-04-2022 12:00-0400 Respiratory rate 18 /min Aleyda Dennis Other [facility] Other 08-04-2022 12:00-0400 SaO2% (BldA) [Mass fraction] 95 % Aleyda Dennis Other [facility] Other 08-04-2022 12:00-0400 Systolic blood pressure 136 mm[Hg] Aleyda Dennis Other [facility] Other 01-13-2022 14:00-0500 Body height 160.02 cm Aleyda Dennis Other [facility] Other 01-13-2022 14:00-0500 Body mass index (BMI) [Ratio] 31.99 kg/m2 Aleyda Dennis Other [facility] Other 01-13-2022 14:00-0500 Body temperature 96.3 [degF] Aleyda Dennis Other [facility] Other 01-13-2022 14:00-0500 Body weight 81.92 kg Aleyda Dennis Other [facility] Other 01-13-2022 14:00-0500 Diastolic blood pressure 77 mm[Hg] Aleyda Dennis Other [facility] Other 01-13-2022 14:00-0500 Respiratory rate 18 /min Aleyda Dennis Other [facility] Other 01-13-2022 14:00-0500 SaO2% (BldA) [Mass fraction] 96 % Aleyda Dennis Other [facility] Other 01-13-2022 14:00-0500 Systolic blood pressure 129 mm[Hg] Aleyda Dennis Other [facility] Other 12-10-2020 11:40-0400 Body height 160.02 cm Aleyda Dennis Other [facility] Other 12-10-2020 11:40-0400 Body mass index (BMI) [Ratio] 32.98 kg/m2 Aleyda Dennis Other [facility] Other 12-10-2020 11:40-0400 Body temperature 96 [degF] Aleyda Dennis Other [facility] Other 12-10-2020 11:40-0400 Body weight 84.46 kg Aleyda Dennis Other [facility] Other 12-10-2020 11:40-0400 Diastolic blood pressure 80 mm[Hg] Aleyda Dennis Other [facility] Other 10-07-2021 11:40-0400 Respiratory rate 18 /min Aleyda Dennis Other [facility] Other 12-10-2020 11:40-0400 SaO2% (BldA) [Mass fraction] 96 % Aleyda Dennis Other [facility] Other 12-10-2020 11:40-0400 Systolic blood pressure 139 mm[Hg] Aleyda Dennis Other [facility] Other Encounters Encounter Date Encounter Type Care Provider Facility Start: 06-03-2024 End: 06-03-2024 Leonel Perez MD Work Phone: [facility] Start: 06-03-2024 End: 06-03-2024 Leonel Perez MD Work Phone: [facility] Start: 06-03-2024 End: 06-03-2024 Office outpatient visit 25 minutes Misael Perez MD Work Phone: [facility] Comment on above: Type 2 diabetes sienna itus with hyperglycemia, without long-term current use of insulin (CMS/HCC) (Primary Dx); Benign essential hypertension (CMS/HCC); Chronic diastolic congestive heart failure (CMS/HCC); Paroxysmal atrial fibrillation (CMS/HCC); DDD (degenerative disc disease), cervical; Chronic superficial 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; Stage 3b chronic kidney disease (CKD) (CMS/HCC); Vitamin D deficiency; Dyslipidemia (CMS/HCC); Encounter for long-term (current) use of medications; Obesity (BMI 30-39.9); Class 2 severe obesity due to excess calories with serious comorbidity and body mass index (BMI) of 35.0 to 35.9 in adult (CMS/HCC); Renal cell carcinoma, unspecified laterality (CMS/HCC); Type 2 diabetes mellitus with diabetic chronic kidney disease (CMS/HCC) Start: 05-28-2024 ambulatory [facility] Start: 05-06-2024 End: 05-06-2024 ambulatory [facility] Start: 05-01-2024 End: 05-01-2024 Refill Misael Perez MD Work Phone: [facility] Comment on above: DDD (degenerative di sc disease), cervical Start: 04-10-2024 End: 04-10-2024 Clinisync Result Encounter Generic External Data Provider [facility] Unsolicited Start: 04-10-2024 End: 04-10-2024 Clinisync Result Encounter Generic External Data Provider [facility] Unsolicited Start: 04-02-2024 End: 04-02-2024 ambulatory [facility] Start: 03-22-2024 End: 03-22-2024 [facility] Start: 03-12-2024 End: 03-12-2024 Refill Misael Perez MD Work Phone: [facility] Comment on above: DDD (degenerative di sc disease), cervical Start: 02-29-2024 End: 02-29-2024 Refill Misael Perez MD Work Phone: [facility] Comment on above: Paresthesia of both feet Start: 01-24-2024 End: 01-24-2024 [facility] Start: 01-23-2024 End: 01-23-2024 Refill Misael Perez MD Work Phone: [facility] Comment on above: DDD (degenerative di sc disease), cervical Start: 01-11-2024 End: 01-11-2024 Bamboo flowsheet Chery Vela MACHINE [employer] Work Phone: [facility] Start: 01-11-2024 End: 01-11-2024 Bamboo flowsheet Chery Vela MACHINE [employer]AND[employer] Work Phone: [facility] Start: 01-11-2024 End: 01-11-2024 Office outpatient visit 15 minutes Chery Vela NP Work Phone: [facility] Comment on above: Status post right kn ee replacement; Primary osteoarthritis of right knee Start: 01-11-2024 End: 01-11-2024 ambulatory CHERY Elina VELA Not Available Start: 01-02-2024 End: 01-02-2024 ambulatory MD Misael Perez Work Phone: [facility] Work Phone: Start: 01-02-2024 End: 01-02-2024 Patient encounter procedure MD Misael Perez Work Phone: [facility] Work Phone: Start: 12-26-2023 End: 12-26-2023 Clinisync Result Encounter Generic External Data Provider [facility] Unsolicited Start: 12-26-2023 End: 12-26-2023 Clinisync Result Encounter Generic External Data Provider [facility] External [facility] Unsolicited Start: 12-26-2023 Non-patient / Non-visit MD Natalie Perez Work Phone: [facility] Work Phone: Start: 12-04-2023 End: 12-04-2023 Bamboo flowsheet Misael Perez MD Work Phone: [facility] Start: 12-04-2023 End: 12-04-2023 Clinisync Result Encounter Misael Perez MD Work Phone: [facility] Unsolicited Start: 12-04-2023 End: 12-04-2023 Clinisync Result Encounter Misael Perez MD Work Phone: [facility]olic[facility] Start: 12-04-2023 End: 12-04-2023 Office outpatient visit 25 minutes Misael Perez MD Work Phone[facility] Comment on above: Type 2 diabetes sienna itus with hyperglycemia, without long-term current use of insulin (CMS/HCC) (Primary Dx); Benign essential hypertension (CMS/HCC); DDD (degenerative disc disease), cervical; Paroxysmal atrial fibrillation (CMS/HCC); Chronic diastolic congestive heart failure (CMS/HCC); Chronic superficial 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; Renal cell carcinoma, unspecified laterality ([facility]/HCC) Start: 12-04-2023 End: 12-04-2023 ambulatory MISAEL PEREZ Not Available Start: 11-22-2023 End: 11-22-2023 ambulatory Misael Perez MD Work Phone: [facility] Work Phone: Start: 11-22-2023 End: 11-22-2023 Departed Referred Misael Perez MD Work Phone: [facility] Work Phone: Start: 10-30-2023 End: 10-30-2023 Patient encounter procedure MD Misael Perez Work Phone: [facility] Work Phone: Start: 10-30-2023 End: 10-30-2023 ambulatory MD Misael Perez Work Phone: [facility] Work Phone: Start: 10-11-2023 End: 10-11-2023 ambulatory CHERY VELA Not Available Start: 10-10-2023 End: 10-10-2023 ambulatory MD Misael Perez Work Phone: [facility] Work Phone: Start: 10-10-2023 End: 10-10-2023 Patient encounter procedure MD Misael Perez Work Phone: [facility] Work Phone: Start: 09-25-2023 End: 09-25-2023 ambulatory MD Misael Perez Work Phone: [facility] Work Phone: Start: 09-25-2023 End: 09-25-2023 Patient encounter procedure MD Misael Perez Work Phone: [facility] Work Phone: Start: 09-18-2023 Non-patient / Non-visit MD Natalie Perez Work Phone: [facility] Work Phone: Start: 09-18-2023 End: 09-18-2023 ambulatory [facility] Start: 08-31-2023 End: 08-31-2023 ambulatory JL PEPE Not Available Start: 08-24-2023 End: 08-24-2023 ambulatory YULY VALDERRAMA Not Available Start: 08-24-2023 End: 08-24-2023 ambulatory FELIPE SCHAEFER Not Available Start: 08-22-2023 End: 08-22-2023 ambulatory MISAEL PEREZ Not Available Start: 08-22-2023 End: 08-22-2023 ambulatory JL PEPE Not Available Start: 08-21-2023 End: 08-21-2023 ambulatory MD Misael Perez Work Phone: [facility] Work Phone: Start: 08-21-2023 End: 08-21-2023 Patient encounter procedure MD Misael Perez Work Phone: [facility] Work Phone: Start: 08-17-2023 End: 08-17-2023 ambulatory JL PEPE Not Available Start: 08-15-2023 End: 08-15-2023 Non-patient / Non-visit MD Misael Perez Work Phone: [facility] Work Phone: Start: 08-14-2023 End: 08-15-2023 ambulatory Imad Asaad Facility:[facility] Start: 08-14-2023 End: 08-15-2023 Evaluation and management of inpatient MD Misael Perez Work Phone: [facility] [place] [facility] Work Phone: Start: 08-14-2023 End: 08-15-2023 observation encounter MD Misael Perez Work Phone: [facility] Work Phone: Start: 08-14-2023 Non-patient / Non-visit MD Natalie Perez Work Phone: [facility] Work Phone: Start: 08-11-2023 End: 08-11-2023 ambulatory JL PEPE Not Available Start: 08-09-2023 End: 08-09-2023 ambulatory BELEN PATRICK Not Available Start: 07-27-2023 End: 07-27-2023 ambulatory [facility] Not Available Start: 07-27-2023 End: 07-27-2023 ambulatory FERRO LYNN Not Available Start: 07-21-2023 End: 07-21-2023 Evaluation and management of inpatient [facility] Start: 07-19-2023 End: 07-20-2023 ambulatory [facility] Start: 07-18-2023 End: 07-18-2023 Patient encounter procedure MD Misael Perez Work Phone: [facility] Ne[facility] Work Phone: Start: 07-13-2023 End: 07-13-2023 ambulatory [facility] Work Phone: Start: 07-13-2023 End: 07-13-2023 Patient encounter procedure [facility] [place] Work Phone: Start: 07-11-2023 End: 07-11-2023 ambulatory [facility] Start: 07-06-2023 Non-patient / Non-visit [facility] Work Phone: Start: 06-30-2023 End: 06-30-2023 ambulatory MISAEL PEREZ Not Available Start: 06-22-2023 End: 06-22-2023 ambulatory [facility] Start: 06-22-2023 Encounter for other preprocedural examination FELIPE SCHAEFER [facility] Start: 06-22-2023 End: 06-22-2023 ambulatory FELIPE Acuna OLIVE Not Available Start: 06-06-2023 End: 12-04-2023 Preprocedural examination done Misael Perez MD Work Phone: [facility] Start: 06-06-2023 End: 06-06-2023 ambulatory MISAEL PEREZ Not Available Start: 05-02-2023 End: 05-02-2023 ambulatory YULY Ross LAVELLE Not Available Start: 04-19-2023 External Result Encounter Misael Perez MD Work Phone: [facility] Unsolicited Start: 04-19-2023 External Result Encounter Misael Perez MD Work Phone: [facility] Unsolicited Start: 04-19-2023 End: 04-19-2023 [facility] Start: 04-18-2023 Telephone encounter Misael whitlock MD Work Phone: [facility] Start: 04-18-2023 End: 04-18-2023 Follow-up encounter Felipe Armand Olive DO Work Phone: [facility] Comment on above: Chronic pain [...] Available Start: 04-10-2023 Bamboo flowsheet Valery wilburn MACHINE [employer]ANDLE [employer] Work Phone: [facility] Start: 04-10-2023 Bamboo flowsheet Valery wilburn MACHINE [employer]ANDLE [employer] Work Phone: [facility] Start: 04-10-2023 End: 04-10-2023 Office outpatient visit 15 minutes Valery Garcia MACHINE [employer]AND[employer] Work Phone: [facility] Comment on above: Chronic pain of righ t knee (Primary Dx); Arthritis of right knee; Internal derangement of right knee Start: 04-10-2023 End: 04-10-2023 ambulatory VALERY Jamie APLNITA Not Available Start: 03-14-2023 End: 03-14-2023 ambulatory Aleyda Dennis Other [facility] Other Start: 03-14-2023 Office outpatient vi sit 15 minutes Aleyda Dennis [facility] Start: 03-13-2023 End: 03-13-2023 ambulatory Aleyda Dennis Other [facility] Other Start: 03-13-2023 Telephone encounter Aleyda Dennis [facility] Start: 03-08-2023 End: 03-09-2023 Evaluation and management of inpatient [facility] Start: 03-07-2023 End: 03-07-2023 ambulatory [facility] Start: 02-22-2023 End: 02-22-2023 ambulatory VALERY Ayala APLING Not Available Start: 02-21-2023 (INJECTION) INJECTION [facility] Dennis [facility] Start: 02-21-2023 End: 02-21-2023 ambulatory Aleyda Dennis Other [facility] Other Start: 02-20-2023 End: 02-20-2023 ambulatory Aleyda Dennis Other [facility] Other Start: 02-20-2023 Telephone encounter Aleyda Dennis [facility] Start: 11-23-2022 End: 11-23-2022 ambulatory Aleyda Dennis Other [facility] Other Start: 11-23-2022 Telephone encounter Aleyda Dennis [facility] Start: 10-25-2022 End: 10-25-2022 ambulatory Aleyda Dennis Other [facility] Other Start: 10-25-2022 Telephone encounter Aleyda Dennis [facility] Start: 09-12-2022 End: 09-12-2022 ambulatory Aleyda Dennis Other [facility] Other Start: 09-12-2022 Telephone encounter Aleyda Dennis [facility] Start: 08-05-2022 End: 08-05-2022 ambulatory Aleyda Dennis Other [facility] Other Start: 08-05-2022 Telephone encounter Aleyda Dennis [facility] Start: 08-04-2022 End: 08-04-2022 ambulatory Aleyda Dennis Other [facility] Other Start: 08-04-2022 Office outpatient vi sit 25 minutes Aleyda Dennis [facility] [place] Start: 04-25-2022 End: 04-26-[address] MISAEL EPREZ Facility:[facility] Start: 03-15-2022 End: 03-16-2022 ambulatory ALEYDA DENNIS Facility:[facility] Start: 03-08-2022 End: 03-08-2022 ambulatory Aziz Bakhous Other [facility] Other Start: 03-08-2022 Telephone encounter Aziz Bakhous [facility] Start: 01-31-2022 End: 02-01-[address] MISAEL PEREZ Facility:[facility] Start: 01-24-2022 End: 01-24-2022 ambulatory Aziz Bakhous Other [facility] Other Start: 01-24-2022 Telephone encounter Aziz Bakhous [facility] Start: 01-19-2022 End: 01-20-[address] MISAEL PEREZ Facility:[facility] Start: 01-13-2022 End: 01-13-2022 ambulatory Aleyda Dennis Other [facility] Other Start: 01-13-2022 Office outpatient vi sit 25 minutes Aleyda Dennis [facility] [place] Start: 01-03-2022 End: 01-04-2022 ambulatory ALEYDA DENNIS Facility:[facility] Start: 10-26-2021 End: 10-27-[address] MISAEL PEREZ Facility:[facility] Start: 09-07-2021 End: 09-07-2021 ambulatory Aleyda Dennis Other [facility] Other Start: 09-07-2021 Telephone encounter Aleyda Dennis [facility] [place] Start: 06-07-2021 End: 06-07-2021 ambulatory Chandler Arauz Other [facility] Other Start: 06-07-2021 Telephone encounter Chandler Arauz [facility] Start: 06-01-2021 End: 06-02-[address] MISAEL PEREZ Facility:[facility] Start: 03-09-2021 End: 03-09-2021 ambulatory Maxi Norton Other [facility] Other Start: 03-09-2021 Telephone encounter Maxi Norton [facility] Start: 01-27-2021 End: 01-27-2021 ambulatory Maxi Norton Other [facility] Other Start: 01-27-2021 Telephone encounter Maxi Norton [facility] Start: 12-10-2020 Office outpatient vi sit 25 minutes Aleyda Dennis [facility] [place] Start: 10-26-2017 End: 10-27-2017 Patient encounter DEFAULT PHYSICIAN Facility:[facility] Start: 10-16-2017 End: 10-17-2017 Patient encounter DEFAULT PHYSICIAN Facility:[facility] Procedures Date Procedure Procedure Detail Performing Clinician Start: 04-10-2024 NM AAMIR PERF SPECT REST STR Generic Exter nal Data Provider Start: 01-11-2024 Radiologic examination knee 1/2 views Chery Irvin Vela MACHINE [employer] Work Phone: Start: 12-26-2023 [facility] CBC WITH PLATELET NO DIFFERENTIAL Generic External Data Provider Start: 12-04-2023 MLR HEMOGLOBIN A1C Misael Perez MD Work Phone: Start: 10-30-2023 Capsule endoscopy MD Misael Perez Work Phone: Start: 08-15-2023 Esophagogastroduodenoscopy MD Misael Beck er Work Phone: Start: 08-14-2023 Antibody screen Imad Asaad Comment on above: Order Comment: Transfuse now? Y Number o f units to transfuse now? 1 Result Comment: PERF ORMED BY: [facility] [address] [place] [address] PATHOLOGIST [employer]ER LATONIA BRAND M.D. Start: 08-14-2023 Screening for occult blood in feces MD Misael Perez Work Phone: Start: 08-14-2023 Stool Occult Blood (MILAD) MD Misael Perez Work Phone: Start: 04-19-2023 Basic metabolic panel calcium total Misael Perez MD Work Phone: Start: 04-19-2023 Complete blood count with white cell differential, automated Misael Perez MD Work Phone: Start: 03-08-2023 Colonoscopy Valery Garcia MACHINE [employer] Work Phone: Plan of Treatment Date Care Activity Detail Author Start: 03-08-2033 Screening for malignant neoplasm of colon [facility] Start: 04-08-2026 Glaucoma screening Diabetes: Retinopathy Screening [facility] Start: 12-09-2024 End: 12-09-2024 Patient encounter procedure 12/09/2024 11:30 AM EDT Office Visit [facility] [address] [place] [phone] Misael Perez MD [address] [place] [address] [facility] Start: 07-11-2024 End: 07-11-2024 Patient encounter procedure 07/11/2024 10:30 AM EDT Office Visit [facility] [address] [place] [phone] Chery Vela, MACHINE [employer]ANDLE [employer]DER [address] [place] [address] [facility] Start: 06-03-2024 End: 06-03-2025 25-hydroxyvitamin D3 [Mass/volume] in Serum or Plasma Vitamin D 25 hydroxy Lab Routine Vitamin D deficiency Expected: 06/03/2024 (Approximate), Expires: 06/03/2025 [facility] Comment on above: Expected: 06/03/2024 (Approximate), Expi res: 06/03/2025 Start: 06-03-2024 End: 06-03-2025 Basic metabolic 1998 panel - Serum or Plasma Basic metabolic panel Lab Routine Stage 3b chronic kidney disease (CKD) ([facility]) Expected: 06/03/2024 (Approximate), Expires: 06/03/2025 [facility] Comment on above: Expected: 06/03/2024 (Approximate), Expi res: 06/03/2025 Start: 06-03-2024 End: 06-03-2025 CBC W Auto Differential panel - Blood CBC and differential Lab Routine Encounter for long-term (current) use of medications Expected: 06/03/2024 (Approximate), Expires: 06/03/2025 [facility] Comment on above: Expected: 06/03/2024 (Approximate), Expi res: 06/03/2025 Start: 06-03-2024 End: 06-03-2025 Hemoglobin A1c/Hemoglobin.total in Blood Hemoglobin A1c Lab Routine Type 2 diabetes mellitus with hyperglycemia, without long-term current use of insulin ([facility]) Expected: 06/03/2024 (Approximate), Expires: 06/03/2025 [facility] Comment on above: Expected: 06/03/2024 (Approximate), Expi res: 06/03/2025 Start: 06-03-2024 End: 06-03-2025 Hepatic function 2000 panel - Serum or Plasma Hepatic function panel Lab Routine Encounter for long-term (current) use of medications Expected: 06/03/2024 (Approximate), Expires: 06/03/2025 [facility] Comment on above: Expected: 06/03/2024 (Approximate), Expi res: 06/03/2025 Start: 06-03-2024 End: 06-03-2025 Lipid 1996 panel - Serum or Plasma Lipid panel Lab Routine Dyslipidemia ([facility]/HCC) Expected: 06/03/2024 (Approximate), Expires: 06/03/2025 [facility] Comment on above: Expected: 06/03/2024 (Approximate), Expi res: 06/03/2025 Start: 06-03-2024 End: 06-03-2025 Microalbumin/Creatinine panel in random Urine Microalbumin / creatinine, urine ratio Lab Routine Type 2 diabetes mellitus with hyperglycemia, without long-term current use of insulin ([facility]) Expected: 06/03/2024 (Approximate), Expires: 06/03/2025 [facility] Work Phone: Comment on above: Expected: 06/03/2024 (Approximate), Expi res: 06/03/2025 Start: 06-03-2024 End: 06-03-2025 Thyrotropin [Units/volume] in Serum or Plasma TSH Lab Routine Obesity (BMI 30-39.9) Expected: 06/03/2024 (Approximate), Expires: 06/03/2025 [facility] Comment on above: Expected: 06/03/2024 (Approximate), Expi res: 06/03/2025 Start: 06-03-2024 End: 06-03-2024 Patient encounter procedure [facility] Comment on above: Arrived Start: 04-19-2024 Urine screening for protein Diabetes: Urine Protein Screening [facility] Start: 01-11-2024 End: 01-11-2024 Patient encounter procedure [facility] Comment on above: Status post right knee replacement; Primary osteoarthritis of right knee Start: 12-22-2023 Hemoglobin A1c measurement Diabetes: Hemoglobin A1C [facility] Start: 12-11-2023 End: 12-11-2023 Patient encounter procedure 12/11/2023 9:15 AM EDT Office Visit [facility] [address] [place] [address] Misael Perez MD [address] [place] [phone] [facility] Start: 12-04-2023 End: 12-03-2024 Hemoglobin A1c/Hemoglobin.total in Blood Hemoglobin A1c Lab Routine Type 2 diabetes mellitus with hyperglycemia, without long-term current use of insulin ([facility]) Expected: 12/04/2023 (Approximate), Expires: 12/03/2024 [facility] Work Phone: Comment on above: Expected: 12/04/2023 (Approximate), Expi res: 12/03/2024 Start: 12-04-2023 End: 12-04-2023 Patient encounter procedure 12/04/2023 9:00 AM EDT Office Visit [facility] [address] [place] [address] Misael Perez MD [address] [place] [phone] Arrived [facility] Comment on above: Arrived Start: 11-05-2023 Influenza vaccination Influenza Vaccine (#1) [facility] Start: 10-30-2023 [facility] Start: 08-15-2023 End: 08-15-2023 [facility] Start: 08-14-2023 Referral to special services agent [facility] Start: 08-14-2023 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 to brush machine setter [facility] Start: 08-14-2023 Hospital admission [facility] Start: 08-14-2023 [facility] Start: 08-14-2023 [facility] Start: 04-18-2023 End: 04-18-2024 25-hydroxyvitamin D3 [Mass/volume] in Serum or Plasma Vitamin D 25 hydroxy Lab Routine Vitamin D deficiency Expected: 04/18/2023 (Approximate), Expires: 04/18/2024 [facility] Comment on above: Expected: 04/18/2023 (Approximate), Expi res: 04/18/2024 Start: 04-18-2023 End: 04-18-2024 Albumin, urine, random Albumin, urine, random Lab Routine Type 2 diabetes mellitus with hyperglycemia, without long-term current use of insulin (CMS/HCC) Expected: 04/18/2023 (Approximate), Expires: 04/18/2024 [facility] Comment on above: Expected: 04/18/2023 (Approximate), Expi res: 04/18/2024 Start: 04-18-2023 End: 04-18-2024 Basic metabolic 1998 panel - Serum or Plasma Basic metabolic panel Lab Routine Encounter for long-term current use of medication Expected: 04/18/2023 (Approximate), Expires: 04/18/2024 [facility] Comment on above: Expected: 04/18/2023 (Approximate), Expi res: 04/18/2024 Start: 04-18-2023 End: 04-18-2024 CBC W Auto Differential panel - Blood CBC and differential Lab Routine Encounter for long-term current use of medication Expected: 04/18/2023 (Approximate), Expires: 04/18/2024 [facility] Comment on above: Expected: 04/18/2023 (Approximate), Expi res: 04/18/2024 Start: 04-18-2023 End: 04-18-2024 Hemoglobin A1c measurement Hemoglobin A1c Lab Routine Type 2 diabetes mellitus with hyperglycemia, without long-term current use of insulin (CMS/HCC) Expected: 04/18/2023 (Approximate), Expires: 04/18/2024 [facility] Work Phone: Comment on above: Expected: 04/18/2023 (Approximate), Expi res: 04/18/2024 Start: 04-18-2023 End: 04-18-2024 Hepatic function 2000 panel - Serum or Plasma Hepatic function panel Lab Routine Encounter for long-term current use of medication Expected: 04/18/2023 (Approximate), Expires: 04/18/2024 [facility] Comment on above: Expected: 04/18/2023 (Approximate), Expi res: 04/18/2024 Start: 04-18-2023 End: 04-18-2024 Lipid 1996 panel - Serum or Plasma Lipid panel Lab Routine Dyslipidemia (CMS/HCC) Expected: 04/18/2023 (Approximate), Expires: 04/18/2024 [facility] Comment on above: Expected: 04/18/2023 (Approximate), Expi res: 04/18/2024 Start: 04-18-2023 End: 04-18-2024 Thyrotropin [Units/volume] in Serum or Plasma TSH Lab Routine Obesity (BMI 30-39.9) Expected: 04/18/2023 (Approximate), Expires: 04/18/2024 [facility] Comment on above: Expected: 04/18/2023 (Approximate), Expi res: 04/18/2024 Start: 04-18-2023 End: 04-18-2023 Patient encounter procedure 04/18/2023 10:30 AM EST Office Visit [facility] [address] [place] [address] Felipe Schaefer DO [address] [place] [address] [facility] Start: 04-10-2023 End: 04-10-2024 MR Knee - right WO contrast MR knee right wo IV contrast Imaging Routine Internal derangement of right knee Expected: 04/10/2023 (Approximate), Expires: 04/10/2024 [facility] Work Phone: Comment on above: Expected: 04/10/2023 (Approximate), Expi res: 04/10/2024 Start: 04-10-2023 End: 04-10-2023 Patient encounter procedure 04/10/2023 9:30 AM EST Office Visit [facility] [address] [place] [address] Valery Garcia, KYE [address] [place] [address] Chronic pain of right knee (Primary Dx); Arthritis of right knee [facility] Comment on above: Chronic pain of right knee (Primary Dx); Arthritis of right knee Start: 09-25-2018 Medicare Annual Wellness (AWV) Medicare Annual Wellness (AWV) [facility] Start: 11-28-1966 Urine screening for protein Diabetes: Urine Protein Screening [facility] Start: 11-28-1957 Glaucoma screening Diabetes: Retinopathy Screening [facility] Start: 1945 Hemoglobin A1c measurement Diabetes: Hemoglobin A1C [facility] Start: 1947 Screening for malignant neoplasm of colon [facility] Patient Education Gastritis (DC) Know your Meds [facility] Work Phone: Patient referral [facility] Work Phone: Renal function 2000 panel - Serum or Plasma [facility] Renal function 1999 panel - Serum or Plasma [facility] Renal function 1999 panel - Serum or Plasma [facility] Renal function 1999 panel - Serum or Plasma [facility] Renal function 1999 panel - Serum or Plasma [facility] Immunizations Immunization Date Immunization Notes Care Provider Fa [facility] 12-08-2022 ABRYSVO - Respirator y syncytial virus (RSV), vaccine, bivalent, protein subunit RSV prefusion F, diluent reconstituted, 0.5 mL, PF Felipe Schaefer DO Work Phone: [facility] 11-24-2022 Influenza, High-dose Seasonal, Quadrivalent, Preservative Free Felipe Schaefer DO Work Phone: [facility] 11-24-2022 influenza virus vacc ine, unspecified formulation Misael Perez MD Work Phone: [facility] 07-04-2022 hepatitis B vaccine, adult dosage Felipe Schaefer DO Work Phone: [facility] 02-04-2022 hepatitis B vaccine, adult dosage Felipe Schaefer DO Work Phone: [facility] 01-04-2022 hepatitis B vaccine, adult dosage Felipe Schaefer DO Work Phone: [facility] 11-28-2021 Influenza, Seasonal, Quadrivalent, Adjuvanted Felipe Schaefer DO Work Phone: [facility] 11-22-2021 zoster vaccine recombinant Felipe Schaefer DO Work Phone: [facility] 08-30-2021 zoster vaccine recombinant Felipe Schaefer DO Work Phone: [facility] 02-02-2021 Moderna SARS-CoV-2 Vaccination Felipe Schaefer DO Work Phone: [facility] 12-31-2018 influenza, high dose seasonal, preservative-free Felipe Schaefer DO Work Phone: [facility] 12-21-2017 influenza, high dose seasonal, preservative-free Felipe Schaefer DO Work Phone: [facility] 01-19-2017 influenza, high dose seasonal, preservative-free Felipe Schaefer DO Work Phone: [facility] 12-27-2016 influenza, injectabl e, quadrivalent, preservative free Felipe Schaefer DO Work Phone: [facility] 12-14-2016 pneumococcal polysaccharide vaccine, 23 valent Felipe Schaefer DO Work Phone: [facility] 10-06-2016 pneumococcal conjuga te vaccine, 13 valent Felipe Smithston DO Work Phone: [facility] 01-26-2015 influenza, high dose seasonal, preservative-free Felipe Schaefer DO Work Phone: [facility] 03-15-2012 influenza virus vacc ine, whole virus Felipe PolkOlive DO Work Phone: [facility] Payers Date Payer Category Payer Self-pay [id number] 2021 Private Health Insurance [employer] [id number] 2021 Unknown 2012 Medicare [id number] [id number]. [id number] 1959 Medicare [id number] 2.16.840.1.503758.19 1959 Unknown [id number] 2.16.840.1.912101.19 1947 Unknown [id number] 2.16.840.1.300256.3.579.2. 593 1947 Unknown [id number] 2.16.840.1.127299.3.579.2. 593 1947 Unknown [id number] 2.16.840.1.393139.3.579.2. 593 1947 Unknown [id number] 2.16.840.1.839142.3.579.2. 593 1947 Unknown [id number] 2.16.840.1.664051.3.579.2. 593 1947 Unknown [id number] 2.16.840.1.507891.3.579.2. 593 1947 Unknown [id number] 2.16.840.1.661096.3.579.2. 593 1947 Unknown [id number] 2.16.840.1.722870.3.579.2. 1286 1947 Unknown [id number] 2.16.840.1.516010.3.579.2. 1286 1947 Unknown [id number] 2.16.840.1.000860.3.579.2. 1286 1947 Unknown [id number] 2.16.840.1.189237.3.579.2. 1285 1947 Unknown [id number] 2.16.840.1.477592.3.579.2. 128 1947 Unknown [id number] 2.16.840.1.462223.3.579.2. 128 1947 Unknown [id number] 2.16.840.1.559160.3.579.2. 128 1947 Unknown [id number] 2.16.840.1.394024.3.579.2. 1285 1947 Unknown [id number] 2.16.840.1.229877.3.579.2. 1285 1947 Unknown [id number] 2.16.840.1.322981.3.579.2. 1285 1947 Unknown [id number] 2.16.840.1.632045.3.579.2. 1285 1947 Unknown [id number] 2.16.840.1.898322.3.579.2. 1285 1947 Unknown [id number] 2.16.840.1.582822.3.579.2. 128 1947 Unknown [id number] 2.16.840.1.506909.3.579.2. 125 1947 Unknown [id number] 2.16.840.1.109469.3.579.2. 1258 1947 Unknown [id number] 2.16.840.1.051461.3.579.2. 1258 1947 Unknown [id number] 2.16.840.1.298769.3.579.2. 1258 1947 Unknown [id number] 2.16.840.1.523366.3.579.2. 1258 1947 Unknown [id number] 2.16.840.1.289329.3.579.2. 1258 1947 Unknown [id number] 2.16.840.1.769335.3.579.2. 1258 1947 Unknown [id number] 2.16.840.1.686532.3.579.2. 1258 1947 Unknown [id number] 2.16.840.1.386669.3.579.2. 1258 1947 Unknown [id number] 2.16.840.1.841810.3.579.2. 1258 1947 Unknown [id number] 2.16.840.1.351048.3.579.2. 1258 1947 Unknown [id number] 2.16.840.1.965290.3.579.2. 1258 1947 Unknown [id number] 2.16.840.1.013241.3.579.2. 1258 1947 Unknown [id number] 2.16.840.1.023847.3.579.2. 1258 1947 Unknown [id number] 2.16.840.1.907949.3.579.2. 1258 1947 Unknown [id number] 2.16.840.1.290302.3.579.2. 1258 1947 Unknown [id number] 2.16.840.1.826744.3.579.2. 1258 1947 Unknown [id number] 2.16.840.1.304759.3.579.2. 1258 1947 Unknown [id number] 2.16.840.1.508693.3.579.2. 1258 1947 Unknown [id number] 2.16.840.1.274553.3.579.2. 1258 1947 Unknown [id number] 2.16.840.1.123488.3.579.2. 1259 1947 Unknown [id number] 2.16.840.1.885576.3.579.2. 1259 1947 Unknown [id number] 2.16.840.1.104410.3.579.2. 1259 1947 Unknown [id number] 2.16.840.1.829031.3.579.2. 9 1947 Unknown [id number] 2.16.840.1.729179.3.579.2. 1259 Medicare Medicare [id number] Unknown [facility] Health Claims [id number] Unknown [id number] 2.16.840.1.190004.3.579.2. 531 Unknown [id number] 2.16.840.1.705323.3.579.2. 531 Unknown [id number] 2.16.840.1.451406.3.579.2. 531 Social History Date Type Detail Facility Unknown if ever smoked [facility] Other Start: 02-22-2023 End: 12-03-2023 Sex Assigned At [facility] Start: 08-15-2022 End: 07-27-2023 Tobacco smoking status [facility] Ex-smoker [facility] End: 03-06-2007 History of tobacco use Current smoker [facility] End: 03-06-2007 History of tobacco use Cigarette Smoker [facility] Start: 08-15-2022 End: 07-27-2023 Tobacco use and exposure Smokeless tobacco non-user [facility] Start: 02-22-2023 End: 06-03-2024 Alcohol intake Ex-drinker (finding) [facility] Start: 02-22-2023 End: 12-03-2023 History of Social function [facility] Start: 1945 Sex Assigned At Not on file [facility] Start: 1945 Sex Assigned At Female [facility] Start: 08-15-2023 Tobacco smoking status NHIS Never smoked tobacco (finding) [facility] History of tobacco use Passive smoker [facility] How often do you nee d to have someone help you when you read instructions, pamphlets, or other written material from your doctor or pharmacy [SILS] Never [facility] Do you belong to any clubs or organizations such as congregational groups, unions, fraternal or athletic groups, or [...] [facility] Start: 01-22-2024 Sex Female (finding) [facility] Medical Equipment Procedure Code Equipment Code Equipment Origin al Text Equipment Identifier Dates Capsule endoscopy, for patency of lumen evaluation Video capsule endoscopy system [id number] FDA Start: 10-30-2023 Goals Date Patient Goal Desired Activity /State Functional Status Date Assessment Result Facility 08-15-2023 Functional status Patient at Baseline [facility] Work Phone: Mental Status Date Assessment Result Facility 08-15-2023 Cognitive function Cognitive Sta tus Patient at Baseline [facility] Work Phone: Clinical Notes 03-06-2019 to 06-03-2024 Misael Perez MD - 06/03/2024 10:37 AM Fernando Perez MD - 06/03/2024 10:36 AM Fernando Perez MD - 06/03/2024 10:35 AM Fernando Perez MD - 06/03/2024 10:35 AM EDT Note Date & Type Note Facility 06-03-2024 History of Present illness Narrative Associated Problem(s): Renal cell adenocarcinoma (CMS/HCC) Follow with specialists. Associated Problem(s): Type 2 diabetes mellitus with hyperglycemia, without long-term current use of insulin (CMS/HCC) Not checking BS and due for A1C. Stick to ADA diet and limit carbs. Associated Problem(s): Paroxysmal atrial fibrillation (CMS/HCC) In NSR and continue metoprolol. Loop recorder placed and follow with cardiology. Associated Problem(s): Class 2 severe obesity due to excess calories with serious comorbidity and body mass index (BMI) of 35.0 to 35.9 in adult (CMS/HCC) Weight loss indicated. Associated Problem(s): DDD (degenerative disc disease), cervical Pain stable and use percocet PRN. Associated Problem(s): Chronic superficial 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 Symptoms controlled with protonix and continue. Associated Problem(s): Chronic diastolic congestive heart failure (CMS/HCC) No edema and use lasix PRN. Associated Problem(s): Benign essential hypertension (CMS/HCC) BP controlled and monitor PRN. Images from the original note were not included. Subjective Patient ID: Malgorzata Simmons is a 78 y.o. female who presents for Follow-up (6m). Follow up DM, HTN, neck pain, edema, afib, and GERD. Patient feels well today. Not checking BS away from office and last A1C 5.4. Tries to stick to ADA diet and limit carbs but reports occasional splurges. Due for A1C. Denies signs of elevated BS such as polyuria, polyphagia or polydipsia. Checking BP PRN and typically controlled. BP normal today. Taking medication daily and tolerating without side effects. Neck pain stable. Pain in base neck and top shoulders. Occasional radiation into right arm. Pain increased with activity and use of arm. Using percocet PRN and neck pain tolerable. Edema controlled with medication. Mild swelling at end of day and if on feet a lot. Edema improved in am and with elevation. Afib stable. No palpitations or heart racing. Not lightheaded or dizzy. Seen by cardiology and normal event monitor. Loop recorder placed few weeks ago. GERD controlled with protonix. Denies epigastric pain or burning and not waking up with symptoms. Review of Systems Respiratory: Negative for cough, shortness of breath and wheezing. Cardiovascular: Negative for chest pain and palpitations. Gastrointestinal: Negative for abdominal pain, diarrhea, nausea and vomiting. Genitourinary: Negative for dysuria. Objective Physical Exam Constitutional: General: She is not in acute distress. Appearance: Normal appearance. HENT: Head: Normocephalic. Right Ear: Tympanic membrane normal. Left Ear: Tympanic membrane normal. Eyes: Extraocular Movements: Extraocular movements intact. Pupils: Pupils are equal, round, and reactive to light. Cardiovascular: Rate and Rhythm: Normal rate and regular rhythm. Heart sounds: No murmur heard. No friction rub. No gallop. Pulmonary: Effort: Pulmonary effort is normal. Breath sounds: Normal breath sounds. No wheezing, rhonchi or rales. Abdominal: General: Bowel sounds are normal. There is no distension. Palpations: Abdomen is soft. Tenderness: There is no abdominal tenderness. There is no guarding or rebound. Musculoskeletal: Cervical back: Neck supple. Right lower leg: No edema. Left lower leg: No edema. Neurological: Mental Status: She is alert. Assessment/Plan Problem List Items Addressed This Visit Benign essential hypertension ([facility]) BP controlled and monitor PRN. Chronic superficial 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 Symptoms controlled with protonix and continue. Stage 3b chronic kidney disease (CKD) (CMS/HCC) Relevant Orders Basic metabolic panel DDD (degenerative disc disease), cervical Pain stable and use percocet PRN. Dyslipidemia ([facility] [facility]) Relevant Orders Lipid panel Type 2 diabetes mellitus with hyperglycemia, without long-term current use of insulin ([facility]) - Primary Not checking BS and due for A1C. Stick to ADA diet and limit carbs. Relevant Orders Microalbumin / creatinine, urine ratio Hemoglobin A1c Vitamin D deficiency Relevant Orders Vitamin D 25 hydroxy Class 2 severe obesity due to excess calories with serious comorbidity and body mass index (BMI) of 35.0 to 35.9 in adult ([facility]) Weight loss indicated. Paroxysmal atrial fibrillation ([facility]/HCC) In NSR and continue metoprolol. Loop recorder placed and follow with cardiology. Chronic diastolic congestive heart failure ([facility]) No edema and use lasix PRN. Encounter for long-term (current) use of medications Relevant Orders CBC and differential Hepatic function panel documented in this encounter [facility] 05-06-2024 Note LOOP IMPLANT PROCEDU RE NOTE DATE OF PROCEDURE: 05/06/2024 PERFORMING PHYSICIAN: Dr. Jakob Smalls TERMINAL MANAGER: SHABNAM INDICATIONS FOR PROCEDURE: 1. SVT/AF surveillance CONSENT: Patient LOCATION: [place] Room PROCEDURAL SEDATION: None FLUOROSCOPY TIME: 0min PREPARATION: Preoperative antibiotics was administered. EBL: 5cc SPECIMEN REMOVED: None PROCEDURES PERFORMED: 1. LOOP implant PROCEDURE NOTE: Patient was brought to the EP lab in the post absorptive state. A procedural pause was performed verifying the patient, the procedure. Sterile prep and drape were performed over the left precordium and anesthesia with 1% lidocaine was followed by a small incision was made in the 3rd intercostal space near the sternum on the left using the [employer] tool. The loop recorder was then injected subcutaneously and noted to have good sensing parameters. Technical details of the device as noted below. The skin was then closed with 3-0 absorbable monofilament suture and glue applied to hold the edges together. Tegaderm was applied to cover the wound. The patient appeared to tolerate the procedure well and was returned to the room in stable condition. No complications were immediately observed. Sensin.934 mV. IMPRESSION: Successful placement of LOOP implant with excellent sensing parameters. COMPLICATIONS: None RECOMMENDATIONS: 1. Occlusive dressing to be changed after 7 days. 2. Do not wet the incision. Jaokb Smalls MD Cardiac Electrophysiology. [facility] 04-02-2024 Note [place] Elect[place]iology Consult Note [place] [facility] - [facility] Reason for visit: Afib HPI: Malgorzata Simmons is a 78 y.o. year old with past medical history of ? AF was recently diagnosed to have atrial fibrillation when she admitted to get knee surgery in July 2023. Subsequently she was noted to have a GI bleed in August 2023 and she refused to start anticoagulation. 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 She has been seen by in the past and being evaluated for Watchman an echocardiogram done recently showed low low normal. EF with moderately elevated right-sided pressures. She also had an event monitor placed which showed evidence of atrial tachycardia versus atrial flutter that lasted approximately 7 seconds. No A-fib was noted on the study. Patient feels fatigue and shortness of breath with activity of carrying household materials from 1 room to the other. PMH: Past Medical History: Diagnosis Date Abnormal ECG Chronic kidney disease Diabetes mellitus (CMS/HCC) Hyperlipidemia Hypertension PSH: Past Surgical History: Procedure Laterality Date TOTAL KNEE ARTHROPLASTY SH: Social Determinants of Health Tobacco Use: Medium Risk (01/24/2024) Patient History Smoking Tobacco Use: Former Smokeless Tobacco Use: Never Passive Exposure: Not on file Alcohol Use: Not At Risk (12/03/2023) Received from [facility] Flare Code [facility] AUDIT-C Frequency of Alcohol Consumption: Never Average Number of Drinks: Patient does not drink Frequency of Binge Drinking: Never Financial Resource Strain: Low Risk (12/03/2023) Received from [facility] [employer] [facility] Overall Financial Resource Strain (CARDIA) Difficulty of Paying Living Expenses: Not hard at all Food Insecurity: No Food Insecurity (12/03/2023) Received from [facility] Hunger Vital Sign Worried About Running Out of Food in the Last Year: Never true Ran Out of Food in the Last Year: Never true Transportation Needs: No Transportation Needs (12/03/2023) Received from [facility] PRAPARE - Transportation Lack of Transportation (Medical): No Lack of Transportation (Non-Medical): No Physical Activity: Insufficiently Active (12/03/2023) Received from [facility] Exercise Vital Sign Days of Exercise per Week: 2 days Minutes of Exercise per Session: 20 min Stress: No Stress Concern Present (12/03/2023) Received from [facility] [employer] [place] [employer] Occupational [employer] - Occupational Stress Questionnaire Feeling of Stress : Only a little Social Connections: Socially Isolated (12/03/2023) Received from [facility] Social Connection and Isolation Panel [NHANES] Frequency of Communication with Friends and Family: Three times a week Frequency of Social Gatherings with Friends and Family: Twice a week Attends Hindu Services: Never Active Member of Clubs or Organizations: No Attends Club or Organization Meetings: Never Marital Status: Intimate Partner Violence: Not on file Depression: Not at risk (07/27/2023) Received from [facility] PHQ-2 Patient Health Questionnaire-2 Score: 0 Housing Stability: Low Risk (12/03/2023) Received from [facility] Housing Stability Vital Sign Unable to Pay for Housing in the Last Year: No Number of Times Moved in the Last Year: 0 Homeless in the Last Year: No Utilities: Not At Risk (07/19/2023) Received from [facility] Utilities Threatened with loss of utilities: No Health Literacy: Adequate Health Literacy (12/03/2023) Received from [facility] B1300 Health Literacy Frequency of need for help with medical instructions: Never Allergies: Allergies Allergen Reactions Amlodipine Swelling Ketorolac Other, Rash and Unknown Other Reaction(s): Facial Swelling Latex Other, Rash and Unknown Nsaids (Non-Steroidal Anti-Inflammatory Drug) Other, Rash and Swelling Weight: 83kg Visit Vitals BP 120/64 (BP Location: Left arm, Patient Position: Sitting) Pulse 53 Ht 1.549 m (5' 1 ) Wt 83 kg (183 lb) SpO2 95% BMI 34.58 kg/m??? Smoking Status Former BSA 1.89 m??? Meds: Current Outpatient Medications on File Prior to Visit Medication Sig Dispense Refill alendronate (Fosamax) 70 mg tablet Take 70 mg by mouth every 7 (seven) days. atorvastatin (Lipitor) 10 mg tablet Take 10 mg by mouth at bedtime. carvedilol (Coreg) 12.5 mg tablet Take 1 tablet (12.5 mg) by mouth with breakfast and with evening meal. 180 tablet 3 cholecalciferol, vitamin D3, (more content not included)... [facility] 03-22-2024 Note [place] [facility] Subjective Malgorzata Simmons is a 78 y.o. year old female patient being seen for follow up echo and 30 day event monitor. At last visit she was switched from metoprolol to carvedilol and she is tolerating it well she says. Denies chest pain. Patient Active Problem List Diagnosis Anemia of [...] Use Topics Alcohol use: Not Currently HPI Visit of 01/24/2024: Malgorzata is seen as a new patient, [...] heartbeat. No dizziness or lightheadedness or syncope. Visit of 03/22/2024: She is seen in follow-up. At last visit and in order to document presence of atrial fibrillation I checked an event monitor. Also due to findings on her prior echocardiogram in July 2023 as well as shortness of breath and elevated BNP I ordered an echocardiogram. Also due to uncontrolled blood pressure I switched metoprolol to carvedilol. Today she reports that she has been doing reasonably well. She continues to have shortness of breath on exertion NYHA class II symptoms. She has mild lower extremity edema. She feels occasional palpitations. Review of her event monitor showed episodes of supraventricular tachycardia likely atrial tachycardia versus atrial flutter. Her follow-up echocardiogram showed low normal ventricular systolic function with moderately elevated right-sided pressures. Review of Systems Cardiovascular: Positive for dyspnea on exertion, leg swelling and palpitations. Objective Visit Vitals BP 136/72 (BP Location: Left arm, Patient Position: Sitting) Pulse 54 Ht 1.549 m (5' 1 ) Wt 83 kg (183 lb) SpO2 98% BMI 34.58 kg/m??? Smoking Status Former BSA 1.89 m??? Physical Exam Constitutional: Appearance: She is [...] Judgment: Judgment normal. Allergies Allergies Allergen Reactions Amlodipine Swelling Ket (more content not included)... [facility] 01-24-2024 Note [place] [facility] Subjective Malgorzata Simmons is a 78 y.o. year old female patient being seen to establish care and discuss LAAO. Ref from Dr. Perez. She used to see Dr. Emy Foster back in 2017, then followed with [facility] for a few years. In [...] Fe) MG tablet (more content not included)... [facility] 01-11-2024 History of Present illness Narrative Images from the original note were not included. Chief Complaint Patient presents with Right Knee - Follow-up HISTORY OF PRESENT ILLNESS: Malgorazta Simmons is an 78 y.o. @ female. RT [...] Stable RT total knee replacement. 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 Status post right knee [...] develop for requiring urgent evaluation. 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 documented in this encounter [facility] 01-02-2024 Evaluation note Diagnosis Onset Date Resolution [...] chronic kidney disease resolved January 01 12:58pm [facility] Work Phone: 1(625) 747-371409-30-2024 History of Present illness Narrative* Misael Perez MD - 12/04/2023 9:45 AM EDTAssociated Problem(s): Renal cell adenocarcinoma (CMS/HCC) Follow with specialists. * Misael Perez MD - 12/04/2023 9:43 AM EDTAssociated Problem(s): Chronic superficial 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 Symptoms controlled with protonix and continue. * Misael Perez MD - 12/04/2023 9:43 AM EDTAssociated Problem(s): Type 2 diabetes mellitus with hyperglycemia, without long-term current use of insulin (CMS/HCC) Not checking BS and due for A1C. Stick to ADA diet and limit carbs. * Misael Perez MD - 12/04/2023 9:43 AM EDTAssociated Problem(s): Paroxysmal atrial fibrillation (CMS/HCC) In NSR and continue metoprolol. History of GI bleed and may be candidate for Watchman Device. [facility]. * Misael Perez MD - 12/04/2023 9:42 AM EDTAssociated Problem(s): DDD (degenerative disc disease), cervical Pain stable and use percocet PRN. * Misael Perez MD - 12/04/2023 9:42 AM EDTAssociated Problem(s): Chronic diastolic congestive heart failure (CMS/HCC) No edema and use lasix PRN. * Misael Perez MD - 12/04/2023 9:42 AM EDTAssociated Problem(s): Benign essential hypertension (CMS/HCC) BP controlled and monitor PRN. * Misael Perez MD - 12/04/2023 9:00 AM EDT Images from the original note were not included. Subjective Patient ID: Malgorzata Simmons is a 78 y.o. female who presents for Follow-up (Anemia /Episode in Al). Follow up DM, HTN, neck pain, edema, afib, and GERD. Patient feels well today. Not checking BS recently. Tries to stick to ADA diet and limit carbs but reports occasional splurges. Due for A1C. Denies signs of elevated BS such as polyuria, polyphagia or polydipsia. Checking BP PRN and typically controlled. BP normal today. Taking medication daily and tolerating without side effects. Neck pain stable. Pain in base neck and top shoulders. Occasional radiation into right arm. Pain increased with activity and use of arm. Using percocet PRN and neck pain tolerable. Edema controlled with medication. Mild swelling at end of day and if on feet a lot. Edema improved in am and with elevation. Afib stable. No palpitations or heart racing. Not lightheaded or dizzy. Seen by cardiology after surgery and questioned about anticoagulation. History of GI bleed and doesn't want blood thinner. Discussed Watchman device and will consider. Wants referral to new cardiology. GERD controlled with protonix. Denies epigastric pain or burning and not waking up with symptoms. Review of Systems Respiratory: Negative for cough, shortness of breath and wheezing. Cardiovascular: Negative for chest pain and palpitations. Gastrointestinal: Negative for abdominal pain, diarrhea, nausea and vomiting. Genitourinary: Negative for dysuria. Objective Physical Exam Constitutional: General: She is not in acute distress. Appearance: Normal appearance. HENT: Head: Normocephalic. Right Ear: Tympanic membrane normal. Left Ear: Tympanic membrane normal. Eyes: Extraocular Movements: Extraocular movements intact. Pupils: Pupils are equal, round, and reactive to light. Cardiovascular: Rate and Rhythm: Normal rate and regular rhythm. Heart sounds: No murmur heard. No friction rub. No gallop. Pulmonary: Effort: Pulmonary effort is normal. Breath sounds: Normal breath sounds. No wheezing, rhonchi or rales. Abdominal: General: Bowel sounds are normal. There is no distension. Palpations: Abdomen is soft. Tenderness: There is no abdominal tenderness. There is no guarding or rebound. Musculoskeletal: Cervical back: Neck supple. Right lower leg: No edema. Left lower leg: No edema. Neurological: Mental Status: She is alert. Assessment/Plan Problem List Items Addressed This Visit Benign essential hypertension (CMS/HCC) BP controlled and monitor PRN. Chronic superficial 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 Symptoms controlled with protonix and continue. DDD (degenerative disc disease), cervical Pain stable and use percocet PRN. Relevant Medications oxyCODONE-acetaminophen (Percocet) 10-325 MG tablet Type 2 diabetes mellitus with hyperglycemia, without long-term current use of insulin (CMS/HCC) - Primary Not checking BS and due for A1C. Stick to ADA diet and limit carbs. Relevant Orders Hemoglobin A1c Paroxysmal atrial fibrillation (CMS/HCC) In NSR and continue metoprolol. History of GI bleed and may be candidate for Watchman Device. [facility]. Relevant Medications metoprolol succinate XL (Toprol-XL) 50 MG 24 hr tablet Other Relevant Orders Ambulatory referral to Cardiology Chronic diastolic congestive heart failure (CMS/HCC) No edema and use lasix PRN. Relevant Medications metoprolol succinate XL (Toprol-XL) 50 MG 24 hr tablet Other Relevant Orders Ambulatory referral to Cardiology documented in this encounterSaint [facility] [id number] Evaluation note* Author [facility] Authored October 10, 2023 1:2 1pm 77-year-old [...] -Will get EGD and colonoscopy report from [place] -Will arrange for capsule endoscopy. -Decrease pantoprazole to 40 mg daily [facility] Work Phone: 1(887) 578-653806-11-2024 Consult note Author Aleyda Bourgeois [facility] August 15, 2023 10:24am Note Date/Time August 15, 2023 8:48 am [facility] [address] [place] [address] Nephrology Consult Note Signed Patient: Malgorzata Simmons MR#: [id number] : 1945 Acct:[id number] Age/Sex: 77 / F Adm Date: 4 Loc: Room: [address] [place] [address] Type: ADM INOo Attending Dr: Meagan Roman [...] denies any itching or rash [facility] Medical History (Updated 08/15/23 @ 09:59 by [...] 50 Mg Tab.Er.24h) 50 mg PO DAILY [facility] Stop: 08/14/24 08:59 Oxycodone/Acetaminophen (Oxycodone/Acetaminophen 5-325 Mg Tablet) 2 tab PO A6CPAOC PRN Reason: pain Last Admin: 08/14/23 22:37 [...] Skin: No rashes , warm to touch 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 I have reviewed the report(s) and am [...] question. Documented By: Aleyda Bourgeois MD 08/15/23 [id number] Signed By: <Electronically signed by Aleyda Bourgeois MD> 08/15/23 1024 [facility] Work Phone: 1(539) 500-796606-11-2024 Consult note Author Kuldeep Almazan [facility] August 15, 2023 8:33am Note Date/Time August 15, 2023 8:14 am [facility] [address] [place] [address] Gastroenterology Consult Note Signed Patient: Malgorzata Simmons MR#: [id number] : 1945 Acct:[id number] Age/Sex: 77 / F Adm Date: 4 Loc: Room: [address] [place] [address] Type: ADM INOo Attending Dr: Meagan Roman MD Copies to: MD Misael Ding MD Ruta Semaskiene, MD~ HPI Data of Consult Date of Consultation: 08/15/23 Requesting Physician: Meagan Roman MD Consult Narrative History of present illness: Ms. Simmons is a 77 year old female with [...] noted below or in HPI [facility] Medical History (Updated 08/15/23 @ 08:33 [...] % (Auto) 70.0 Lymph % (Auto) 19.2 [place] % (Auto) 6.8 Eos % (Auto) 3.3 Baso % (Auto) 0.7 Nucleat RBC Rel Count 0.1 Neut # (Auto) 5.4 Lymph # (Auto) 1.5 [place] # (Auto) 0.5 Eos # (Auto) 0.3 [...] Type Blood Type Recheck Antibody Screen Crossmatch ([facility]) 08/14/23 08/14/23 08/14/23 17:55 17:55 17:55 Corrected WBC Uncorrected WBC Count RBC Hgb Hct MCV MCH MCHC RDW Plt Count MPV Neut % (Auto) Lymph % (Auto) [place] % (Auto) Eos % (Auto) Baso % (Auto) Nucleat RBC Rel Count Neut # (Auto) Lymph # (Auto) [place] # (Auto) Eos # (Auto) Baso # [...] Recheck Antibody Screen Crossmatch ([facility]) 08/14/23 08/14/23 08/15/23 17:55 19:59 06:32 Corrected WBC 4.9 Uncorrected WBC Count 4.9 RBC 2.97 L Hgb 8.8 L Hct 26.1 L MCV 87.6 MCH 29.5 MCHC 33.6 RDW 14.8 Plt Count 273 MPV 8.3 Neut % (Auto) 57.5 Lymph % (Auto) 26.9 [place] % (Auto) 9.7 Eos % (Auto) 5.1 Baso % (Auto) 0.8 Nucleat RBC Rel Count 0.1 Neut # (Auto) 2.8 Lymph # (Auto) 1.3 [place] # (Auto) 0.5 Eos # (Auto) 0.2 [...] Recheck A Negative Antibody Screen Negative Crossmatch ([facility]) See Detail A&P - Gastroenterology Assessment/Plan (1) Anemia: Plan Ms. Simmons is a 77 year old female with [...] signed by Kuldeep Almazan MD> 08/15/23 0833 [facility] Work Phone: 1(369) 704-836806-11-2024 [facility] History and physical note Author Meagan Roman [facility] August 14, 2023 7:50pm Note Date/Time August 14, 2023 7:50 pm [facility] [address] [place] [address] Hospitalist H&P Signed Patient: Malgorzata Simmons MR#: [id number] : 1945 Acct:[id number] Age/Sex: 77 / F Adm Date: 4 Loc: ER Room: Type: [facility] ER Attending Dr: Copies to: DO Misael Robins MD Ruta Semaskiene, MD~ HPI DATE OF EXAMINATION: 08/14/23 CHIEF COMPLAINT: abn lab work HISTORY OF PRESENT ILLNESS: 77-year old female with a history of iron deficiency anemia, of unclear etiology, history of iron infusions, status post EGD and colonoscopy in [facility], at that time showed some stomach irritation, placed on Protonix, consider due to aspirin use presented with abnormal lab. Patient has been following with brush machine setter for single kidney, she is status post [...] in the computer system reviewed [facility] Medical History (Updated 08/14/23 @ 19:38 [...] % (Auto) 19.2 % (.) 08/14/23 17:55 [place] % (Auto) 6.8 % (.) 08/14/23 17:55 Eos % (Auto) 3.3 % (.) 08/14/23 17:55 Baso % (Auto) 0.7 % (.) 08/14/23 17:55 Nucleat RBC Rel Count 0.1 /100 WBC (0-0.5) 08/14/23 17:55 Neut # (Auto) 5.4 x10E3/uL (1.8-7.7) 08/14/23 17:55 Lymph # (Auto) 1.5 x10E3/uL (1.00-4.8) 08/14/23 17:55 [place] # (Auto) 0.5 x10E3/uL (0.0-0.8) 08/14/23 17:55 [...] signed by Meagan Roman MD> 08/14/23 1950 [facility] Work Phone: 1(148) 264-771502-13-2024 Telephone encounter Note* Telephone Encounter - Misael Perez MD - 04/18/2023 3:32 PM EST Patient due for all labs and in chart. Please print order or send to lab. If print albumin needs printed separately from other labs. MAN [facility] [id number] Miscellaneous Notes* Telephone Encounter - Misael Perez MD - 04/18/2023 3:32 PM EST Patient due for all labs and in chart. Please print order or send to lab. If print albumin needs printed separately from other labs. MAN documented in this encounterSaint Joseph Health [id number] History of Present illness Narrative* Felipe Schaefer DO - 04/18/2023 10:30 AM EST Images from the original note were not included. HISTORY OF PRESENT ILLNESS: Malgorzata Simmons is an 77 y.o. @ female. Chief [...] Past Medical History: Diagnosis Date Anemia Diabetes ([facility]) GERD (gastroesophageal reflux disease) History of kidney cancer RT HTN (hypertension) ([facility]) Kidney disease ALLERGIES: Allergies Allergen Reactions Latex [...] knee dated April 12, 2023 from the [facility] center. There is thinning of articular cartilage [...] questions. Candy Schaefer D.O. documented in this encounterSaint Joseph Health [id number] History of Present illness Narrative* Valery Garcia NP - 04/10/2023 9:30 AM EST Subjective Patient ID: Malgorzata Simmons is a 77 y.o. female. RT Knee [...] knee without contrast to be done at [facility] in [place], [facility] as tolerated, f/u s/p MRI documented in this encounterSaint Joseph Health [id number] Evaluation note* Encounter Date Diagnosis Assessment Notes [...] potassium diet and provide information about it. [employer] Other 12-19-2023 Evaluation note* Encounter Date Diagnosis Assessment Notes Treatment Notes Treatment Clinical Notes Feb, Chronic kidney disease, stage 3 unspecified (ICD-10 - N18.30) Feb, Anemia in chronic kidney disease (ICD-10 - D63.1) [employer] Other 09-20-2023 Evaluation note* Encounter Date Diagnosis Assessment Notes Treatment Notes Treatment Clinical Notes Nov, Hypertensive chronic kidney disease with stage 1 through stage 4 chronic kidney disease, or unspecified chronic kidney disease (ICD-10 - I12.9) [employer] Other 08-22-2023 Evaluation note* Encounter Date Diagnosis Assessment Notes Treatment Notes Treatment Clinical Notes Oct, Hypertensive chronic kidney disease with stage 1 through stage 4 chronic kidney disease, or unspecified chronic kidney disease (ICD-10 - I12.9) [employer] Other 07-10-2023 Evaluation note* Encounter Date Diagnosis Assessment Notes Treatment Notes Treatment Clinical Notes Sep, Proteinuria (ICD-10 - R80.9) [employer] Other 06-01-2023 Evaluation note* Encounter Date Diagnosis [...] potassium diet and provide information about it. [employer] Other 01-03-2023 Evaluation note* Encounter Date Diagnosis Assessment Notes Treatment Notes Treatment Clinical Notes Mar, Proteinuria (ICD-10 - R80.9) [employer] Other 11-10-2022 Evaluation note* Encounter Date Diagnosis [...] No need for any medication for now. [employer] Other 07-05-2022 Evaluation note* Encounter Date Diagnosis Assessment Notes Treatment Notes Treatment Clinical Notes Sep, Hypertensive chronic kidney disease with stage 1 through stage 4 chronic kidney disease, or unspecified chronic kidney disease (ICD-10 - I12.9) [employer] Other 04-04-2022 Evaluation note* Encounter Date Diagnosis Assessment Notes Treatment Notes Treatment Clinical Notes Jun, Proteinuria (ICD-10 - R80.9) [facility] Other 01-04-2022 Evaluation note* Encounter Date Diagnosis Assessment Notes Treatment Notes Treatment Clinical Notes Mar, Hypertensive chronic kidney disease with stage 1 through stage 4 chronic kidney disease, or unspecified chronic kidney disease (ICD-10 - I12.9) [facility] Other 11-24-2021 Evaluation note* Encounter Date Diagnosis Assessment Notes Treatment Notes Treatment Clinical Notes Jan, Hypertensive chronic kidney disease with stage 1 through stage 4 chronic kidney disease, or unspecified chronic kidney disease (ICD-10 - I12.9) [facility] Other 10-07-2021 Evaluation note* Encounter Date Diagnosis [...] (ICD-10 - E55.9) Continue oral Vit D [facility] Other 01-01-2020 Evaluation note* Author Kuldeep Almazan [facility] Authored October 10, 2023 1:2 1pm [...] -Will get EGD and colonoscopy report from [place] -Will arrange for capsule endoscopy. -Decrease pantoprazole to 40 mg daily [facility] Work Phone: [facility] noteNo [facility] Other Evaluation note* Diagnosis Chronic pain of right knee- Primary Arthritis of right knee Internal derangement of right knee documented in this encounter [facility] HealthcareEvaluation note* Diagnosis Chronic pain of right knee- Primary Arthritis of right knee Complex tear of medial meniscus of right knee as current injury, initial encounter Other tear of lateral meniscus of right knee as current injury, initial encounter documented in this encounter [facility] HealthcareEvaluation note* Diagnosis Dyslipidemia ([facility])- Primary Other and unspecified hyperlipidemia Vitamin D deficiency Type 2 diabetes mellitus with hyperglycemia, without long-term current use of insulin ([facility]) Encounter for long-term current use of medication Obesity (BMI 30-39.9) documented in this encounter [facility] HealthcareEvaluation note* Diagnosis Onset Date Resolution Status Anemia of renal disease acut e CKD (chronic kidney disease) stage 3, GFR 30-59 ml/min acute Hyperkalemia acute [id number] acute Hyperuricemia acute Proteinuria acute Renal cancer acute Type 2 diabetes mellitus wit h diabetic chronic kidney disease acute Vitamin D deficiency acute [facility] Work Phone: Evaluation note* Diagnosis Onset Date Resolution Status Anemia of renal disease acut e CKD (chronic kidney disease) stage 3, GFR 30-59 ml/min acute Hyperkalemia acute [id number] acute Hyperuricemia acute Proteinuria acute Renal cancer acute Type 2 diabetes mellitus wit h diabetic chronic kidney disease acute Vitamin D deficiency acute Anemia of renal disease acut e CKD (chronic kidney disease) stage 3, GFR 30-59 ml/min acute [id number] acute Type 2 diabetes mellitus wit h diabetic chronic kidney disease acute Acute blood loss anemia acut e Anemia acute CKD (chronic kidney disease) stage 3, GFR 30-59 ml/min acute Gastritis with bleeding acut e [id number] acute Occult blood positive stool acute Type 2 diabetes mellitus wit h diabetic chronic kidney disease acute [facility] Work Phone: Evaluation note* Diagnosis Onset Date Resolution Status Anemia of renal disease acut e CKD (chronic kidney disease) stage 3, GFR 30-59 ml/min acute Hyperkalemia acute [id number] acute Hyperuricemia acute Proteinuria acute Renal cancer acute Type 2 diabetes mellitus wit h diabetic chronic kidney disease acute Vitamin D deficiency acute Anemia of renal disease acut e CKD (chronic kidney disease) stage 3, GFR 30-59 ml/min acute [id number] acute Type 2 diabetes mellitus wit h diabetic chronic kidney disease acute Acute blood loss anemia acut e Anemia acute CKD (chronic kidney disease) stage 3, GFR 30-59 ml/min acute Gastritis with bleeding acut e [id number] acute Occult blood positive stool acute Type 2 diabetes mellitus wit h diabetic chronic kidney disease acute Anemia of renal disease acut e CKD (chronic kidney disease) stage 3, GFR 30-59 ml/min acute Hyperkalemia acute [id number] acute Hyperuricemia acute Proteinuria acute Renal cancer acute Type 2 diabetes mellitus wit h diabetic chronic kidney disease acute Vitamin D deficiency acute [facility] Work Phone: Evaluation note* Diagnosis Onset Date Resolution Status Anemia of renal disease acut e CKD (chronic kidney disease) stage 3, GFR 30-59 ml/min acute Hyperkalemia acute [id number] acute Hyperuricemia acute Proteinuria acute Renal cancer acute Type 2 diabetes mellitus wit h diabetic chronic kidney disease acute Vitamin D deficiency acute Anemia of renal disease acut e CKD (chronic kidney disease) stage 3, GFR 30-59 ml/min acute [id number] acute Type 2 diabetes mellitus wit h diabetic chronic kidney disease acute Anemia acute Kidney disease acute Occult blood positive stool acute [facility] Work Phone: Evaluation note* Diagnosis Onset Date Resolution Status Anemia of renal disease acut e Hyperkalemia acute Hyperuricemia acute Proteinuria acute Renal cancer acute Vitamin D deficiency acute CKD (chronic kidney disease) stage 3, GFR 30-59 ml/min resolved [id number] resolved Type 2 diabetes mellitus wit h diabetic chronic kidney disease resolved Anemia of renal disease acut e CKD (chronic kidney disease) stage 3, GFR 30-59 ml/min resolved [id number] resolved Type 2 diabetes mellitus wit h diabetic chronic kidney disease resolved Acute blood loss anemia reso lved Anemia resolved CKD (chronic kidney disease) stage 3, GFR 30-59 ml/min resolved Gastritis with bleeding reso lved [id number] resolved Occult blood positive stool resolved Type 2 diabetes mellitus wit h diabetic chronic kidney disease resolved Anemia of renal disease acut e Hyperkalemia acute Hyperuricemia acute Proteinuria acute Renal cancer acute Vitamin D deficiency acute CKD (chronic kidney disease) stage 3, GFR 30-59 ml/min resolved [id number] resolved Type 2 diabetes mellitus wit h diabetic chronic kidney disease resolved Anemia of renal disease acut e Hyperkalemia acute Hyperuricemia acute Proteinuria acute Renal cancer acute Vitamin D deficiency acute CKD (chronic kidney disease) stage 3, GFR 30-59 ml/min resolved [id number] resolved Type 2 diabetes mellitus wit h diabetic chronic kidney disease resolved [facility] Work Phone: Evaluation note* Diagnosis Type 2 diabetes mellitus with hyperglycemia, without long-term current use of insulin ([facility])- Primary Benign essential hypertension ([facility]/HCC) Essential hypertension, benign Pre-op evaluation Primary osteoarthritis [...] of right knee documented in this encounter [facility] HealthcareEvaluation note* Diagnosis Type 2 diabetes mellitus [...] cervical intervertebral disc documented in this encounter [facility] HealthcareEvaluation note* Diagnosis Type 2 diabetes mellitus with hyperglycemia, without long-term current use of insulin (CMS/HCC)- Primary Benign essential hypertension (CMS/HCC) Essential hypertension, benign DDD (degenerative disc disease), cervical Degeneration of cervical intervertebral disc Paroxysmal atrial fibrillation (CMS/HCC) Atrial fibrillation Chronic diastolic congestive heart failure (CMS/HCC) Chronic superficial 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 Renal cell carcinoma, unspecified laterality (CMS/HCC) documented in this encounter [facility] HealthcareEvaluation note* Diagnosis Type 2 diabetes mellitus [...] without long-term current use of insulin (HCC) ([facility]/HCC) Type 2 diabetes mellitus with hyperglycemia, without long-term current use of insulin (CMS/HCC)- Primary Benign essential hypertension (CMS/HCC) Essential hypertension, benign DDD (degenerative disc disease), cervical Degeneration of cervical intervertebral disc Paroxysmal atrial fibrillation (CMS/HCC) Atrial fibrillation Chronic diastolic congestive heart failure (CMS/HCC) Chronic superficial 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 Renal cell carcinoma, unspecified laterality (CMS/HCC) Paresthesia of both feet documented in this encounter [facility] HealthcareEvaluation note* Diagnosis Type 2 diabetes mellitus [...] to stage 3b chronic kidney disease (HCC) ([facility]/HCC) Benign essential hypertension ([facility]/HCC) Essential hypertension, benign Type 2 diabetes mellitus with hyperglycemia, without long-term current use of insulin ([facility]) Paresthesia of both feet Stage 3b chronic kidney disease (CKD) (CMS/HCC) Type 2 diabetes mellitus with stage 3b chronic kidney disease, without long-term current use of insulin (HCC) ([facility]) Type 2 diabetes mellitus with hyperglycemia, without long-term current use of insulin ([facility]/HCC)- Primary Benign essential hypertension ([facility]/HCC) Essential hypertension, benign DDD (degenerative disc disease), cervical Degeneration of cervical intervertebral disc Paroxysmal atrial fibrillation (CMS/HCC) Atrial fibrillation Chronic diastolic congestive heart failure ([facility]) Chronic superficial 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 Renal cell carcinoma, unspecified laterality ([facility]) Type 2 diabetes mellitus with hyperglycemia, without long-term current use of insulin ([facility]/HCC)- Primary Benign essential hypertension ([facility]/HCC) Essential hypertension, benign Chronic diastolic congestive heart failure (CMS/HCC) Paroxysmal atrial fibrillation ([facility]/HCC) Atrial fibrillation DDD (degenerative disc disease), cervical Degeneration of cervical intervertebral disc Chronic superficial 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 Stage 3b chronic kidney disease (CKD) ([facility]/HCC) Vitamin D deficiency Dyslipidemia ([facility]/HCC) Other and unspecified hyperlipidemia Encounter for long-term (current) use of medications Encounter for long-term (current) use of other medications Obesity (BMI 30-39.9) Class 2 severe obesity due to excess calories with serious comorbidity and body mass index (BMI) of 35.0 to 35.9 in adult ([facility]) Renal cell carcinoma, unspecified laterality (CMS/HCC) Type 2 diabetes mellitus with diabetic chronic kidney disease (CMS/HCC) documented in this encounter [facility] HealthcareHistory and physical note Author Meagan Roman [facility] August 14, 2023 7:50pm Note Date/Time August 14, 2023 7:50 pm [facility] [address] [place] [address] Hospitalist H&P Signed Patient: Malgorzata Simmons MR#: [id number] : 1945 Acct:[id number] Age/Sex: 77 / F Adm Date: 4 Loc: ER Room: Type: [facility] ER Attending Dr: Copies to: DO Misael Robins MD Ruta Semaskiene, MD~ HPI DATE OF EXAMINATION: 08/14/23 CHIEF COMPLAINT: abn lab work HISTORY OF PRESENT ILLNESS: 77-year old female with a history of iron deficiency anemia, of unclear etiology, history of iron infusions, status post EGD and colonoscopy in [facility], at that time showed some stomach irritation, placed on Protonix, consider due to aspirin use presented with abnormal lab. Patient has been following with brush machine setter for single kidney, she is status post [...] in the computer system reviewed [facility] Medical History (Updated 08/14/23 @ 19:38 [...] % (Auto) 19.2 % (.) 08/14/23 17:55 [place] % (Auto) 6.8 % (.) 08/14/23 17:55 Eos % (Auto) 3.3 % (.) 08/14/23 17:55 Baso % (Auto) 0.7 % (.) 08/14/23 17:55 Nucleat RBC Rel Count 0.1 /100 WBC (0-0.5) 08/14/23 17:55 Neut # (Auto) 5.4 x10E3/uL (1.8-7.7) 08/14/23 17:55 Lymph # (Auto) 1.5 x10E3/uL (1.00-4.8) 08/14/23 17:55 [place] # (Auto) 0.5 x10E3/uL (0.0-0.8) 08/14/23 17:55 [...] signed by Meagan Roman MD> 08/14/23 1950 [facility] Work Phone: history general Narrative - Reported* Type Description [...] vein ligation 2019 Hospitalization History SEE ABOVE [facility] Other History general Narrative - Reported* Type [...] METABOLIC ENCEPHALOPATHY, COMPLICATED URINARY TRACT INFECTION 11/21/2022 [facility] Other Hisyewy general Narrative - Reported* Type Description Date [...] METABOLIC ENCEPHALOPATHY, COMPLICATED URINARY TRACT INFECTION 11/21/2022 [facility] Other Reason for referral (narrative)* Consultation (Routine) - Pending Review Specialty Diagnoses / Procedures Referred By Ewelina t Referred To Contact Cardiology Diagnoses Paroxysmal atrial fibrillation (CMS/HCC) Chronic diastolic congestive heart failure (CMS/HCC) Procedures CO OFFICE/OUTPATIENT [facility] 60 MINUTES Misael Perez MD [address] [place] [address] Marvin Rangel MD [address] [place] [id number] Referral ID Status Reason Start Date Expiration Date Visits Requested Visits Authorized [id number] Pending Review Specialty Services Required 12/04/2023 06/01/2024 1 1 [facility] Summary Purpose Family History Relationship Condition Age at Onset Recorded Date/T charles brother Diabetes mellitus Unknown Hypertension Unknown father Unknown Not Specified Unknown sister Unknown Relationship Condition Age at Onset Recorded Date/T charles brother Diabetes mellitus Unknown Hypertension Unknown father Unknown mother Unknown sister Unknown Advance Directives Advance Directive Response Recorded Date/ Time Advance Directives No July 13, 2023 11:41am Advance Directive Response Recorded Date/ Time Advance Directives No July 13, 2023 10:41am Reason for Referral Specialty Diagnoses / Procedures Referred By Ewelina irvin Referred To Contact Radiology Diagnoses Internal derangement of right knee Procedures MR knee right wo IV contrast Apling, Valery Ayala [employer] [address] [place] [address] Referral ID Status Reason Start Date Expiration Date V isits Requested Visits Authorized [id number] Pending Review 04/10/2023 10/07/2023 1 1 Chief Complaint and Reason for Visit Chief Complaint RENAL F/U Reason for Visit Anemia of renal dise [facility] CKD (chronic kidney disease) stage 3, GFR 30-59 ml/min Hyperkalemia [id number] Hyperuricemia Proteinuria Renal cancer Type 2 diabetes mellitus with diabetic chronic kidney disease Vitamin D deficiency Chief Complaint RENAL F/U RENAL INJ PROCRIT / NURSE Hemoglobin is low per Dr Hemoglobin is low per Dr Hemoglobin is low per Dr Reason for Visit Anemia of renal dise [facility] CKD (chronic kidney disease) stage 3, GFR 30-59 ml/min Hyperkalemia [id number] Hyperuricemia Proteinuria Renal cancer Type 2 diabetes mellitus with diabetic chronic kidney disease Vitamin D deficiency Anemia of renal disease CKD (chronic kidney disease) stage 3, GFR 30-59 ml/min [id number] Type 2 diabetes mellitus with diabetic chronic kidney disease Acute blood loss anemia Anemia CKD (chronic kidney disease) stage 3, GFR 30-59 ml/min Gastritis with bleeding [id number] Occult blood positive stool Type 2 diabetes mellitus with diabetic chronic kidney disease Chief Complaint RENAL F/U RENAL INJ PROCRIT / NURSE Hemoglobin is low per Dr Hemoglobin is low per Dr Hemoglobin is low per Dr RENAL 1 MONTH / HOSP F/U Reason for Visit Anemia of renal dise ase CKD (chronic kidney disease) stage 3, GFR 30-59 ml/min Hyperkalemia [id number] Hyperuricemia Proteinuria Renal cancer Type 2 diabetes mellitus with diabetic chronic kidney disease Vitamin D deficiency Anemia of renal disease CKD (chronic kidney disease) stage 3, GFR 30-59 ml/min [id number] Type 2 diabetes mellitus with diabetic chronic kidney disease Acute blood loss anemia Anemia CKD (chronic kidney disease) stage 3, GFR 30-59 ml/min Gastritis with bleeding [id number] Occult blood positive stool Type 2 diabetes mellitus with diabetic chronic kidney disease Anemia of renal disease CKD (chronic kidney disease) stage 3, GFR 30-59 ml/min Hyperkalemia [id number] Hyperuricemia Proteinuria Renal cancer Type 2 diabetes mellitus with diabetic chronic kidney disease Vitamin D deficiency Chief Complaint RENAL F/U RENAL INJ PROCRIT / NURSE Hemoglobin is low per Dr Reason for Visit Anemia of renal dise ase CKD (chronic kidney disease) stage 3, GFR 30-59 ml/min Hyperkalemia [id number] Hyperuricemia Proteinuria Renal cancer Type 2 diabetes mellitus with diabetic chronic kidney disease Vitamin D deficiency Anemia of renal disease CKD (chronic kidney disease) stage 3, GFR 30-59 ml/min [id number] Type 2 diabetes mellitus with diabetic chronic [...] kidney disease) stage 3, GFR 30-59 ml/min [id number] Type 2 diabetes mellitus with diabetic chronic kidney disease Anemia of renal disease CKD (chronic kidney disease) stage 3, GFR 30-59 ml/min [id number] Type 2 diabetes mellitus with diabetic chronic kidney disease Acute blood loss anemia Anemia CKD (chronic kidney disease) stage 3, GFR 30-59 ml/min Gastritis with bleeding [id number] Occult blood positive stool Type 2 diabetes mellitus with diabetic chronic kidney disease Anemia of renal disease Hyperkalemia Hyperuricemia Proteinuria Renal cancer Vitamin D deficiency CKD (chronic kidney disease) stage 3, GFR 30-59 ml/min [id number] Type 2 diabetes mellitus with diabetic chronic kidney disease Anemia of renal disease Hyperkalemia Hyperuricemia Proteinuria Renal cancer Vitamin D deficiency CKD (chronic kidney disease) stage 3, GFR 30-59 ml/min [id number] Type 2 diabetes mellitus with diabetic chronic kidney disease Chief Complaint RENAL F/U RENAL INJ PROCRIT / NURSE Hemoglobin is low per Dr Hemoglobin is low per Hemoglobin is low per Dr RENAL 1 MONTH / HOSP F/U RENAL 1 MONTH F/U follow up scope Reason for Visit Anemia of renal dise ase Hyperkalemia Hyperuricemia Proteinuria Renal cancer Vitamin D deficiency CKD (chronic kidney disease) stage 3, GFR 30-59 ml/min [id number] Type 2 diabetes mellitus with diabetic chronic kidney disease Anemia of renal disease CKD (chronic kidney disease) stage 3, GFR 30-59 ml/min [id number] Type 2 diabetes mellitus with diabetic chronic kidney disease Acute blood loss anemia Anemia CKD (chronic kidney disease) stage 3, GFR 30-59 ml/min Gastritis with bleeding [id number] Occult blood positive stool Type 2 diabetes mellitus with diabetic chronic kidney disease Anemia of renal disease Hyperkalemia Hyperuricemia Proteinuria Renal cancer Vitamin D deficiency CKD (chronic kidney disease) stage 3, GFR 30-59 ml/min [id number] Type 2 diabetes mellitus with diabetic chronic kidney disease Anemia of renal disease Hyperkalemia Hyperuricemia Proteinuria Renal cancer Vitamin D deficiency CKD (chronic kidney disease) stage 3, GFR 30-59 ml/min [id number] Type 2 diabetes mellitus with diabetic chronic [...] 3, GFR 30-59 ml/min Gastritis with bleeding [id number] Occult blood positive stool Type 2 diabetes mellitus with diabetic chronic kidney disease Anemia of renal disease Hyperkalemia Hyperuricemia Proteinuria Renal cancer Vitamin D deficiency CKD (chronic kidney disease) stage 3, GFR 30-59 ml/min [id number] Type 2 diabetes mellitus with diabetic chronic kidney disease Anemia of renal disease Hyperkalemia Hyperuricemia Proteinuria Renal cancer Vitamin D deficiency CKD (chronic kidney disease) stage 3, GFR 30-59 ml/min [id number] Type 2 diabetes mellitus with diabetic chronic kidney disease Chief Complaint follow up scope KLEBER due to Chronic blood loss RENAL 3 MONTH F/U Reason for Visit Anemia of renal dise ase Hyperkalemia Hyperuricemia Proteinuria Renal cancer Vitamin D deficiency CKD (chronic kidney disease) stage 3, GFR 30-59 ml/min [id number] Type 2 diabetes mellitus with diabetic chronic kidney disease Chief Complaint Admit Date KLEBER due to Chronic blood loss October 6:16am iron def. anemia/mulitple AVM's Septembe r 2023 2:00pm RENAL 3 MONTH F/U [...] section and content) DATE CREATED AUTHOR 10/28/2017 [facility] DATE CREATED AUTHOR AUTHOR'S ORGANIZ ATION 07/21/2019 Lares Ramesh [facility] DATE CREATED AUTHOR AUTHOR'S ORGANIZ ATION 04/29/2022 [facility] DATE CREATED AUTHOR AUTHOR'S ORGANIZ ATION 09/22/2023 [facility] DATE CREATED AUTHOR AUTHOR'S ORGANIZ ATION 01/15/2024 [facility] EPIC DATE CREATED AUTHOR AUTHOR'S ORGANIZ ATION 03/05/2024 [facility] DATE CREATED AUTHOR AUTHOR'S ORGANIZ ATION 05/29/2024 [facility] REASON FOR VISIT (unrecogniz ed section and content) Reason Comments Pain Reason Comments Follow-up Reason Onset Date Comments Med Refill 01/23/2024 Reason Comments Follow-up Anemia Episode in [place] Reason Onset Date Comments Med Refill 02/29/2024 Reason Onset Date Comments Med Refill 03/12/2024 Reason Onset Date Comments Med Refill 05/01/2024 Reason Comments Follow-up 6m Care Teams (unrecognized sec tion and content) [...] Provider Ac tive Start: August 15, 2023 Hospitality Specialist Relationship Specialty Start Date End Date Misael Perez MD [address] [place] [phone] PCP - General Family Medicine 04/06/23 Hospitality Specialist Relationship Specialty Start Date End Date Misael Perez MD [address] [place] [phone] PCP - General [facility] Medicine 04/06/23 Hospitality Specialist Relationship Specialty Start Date End Date Misael Perez MD [address] [place] [phone] PCP - General [facility] Medicine 04/06/23 Hospitality Specialist Relationship Specialty Start Date End Date Misael Perez MD [address] [place] [phone] PCP - General Family Medicine 04/06/23 Hospitality Specialist Relationship Specialty Start Date End Date Misael Perez MD [address] [place] [phone] PCP - General Family Medicine 04/06/23 Team Status: Active Member Role Status Dates Yan Ramos DO Primary Care Provider Active Team Status: Active Member Role Status Dates Misael Perez MD Primary Care Provider Active S tart: August 14, 2023 Liliana Kaba DO Emergency Provider Active Sta rt: August 14, 2023 Meagan Roman MD Admit Provider, Attending Provide r Active Start: August 14, 2023 Hospitality Specialist Relationship Specialty Start Date End Date Misael Perez MD [address] [place] [phone] PCP - General Family Medicine 04/06/23 Hospitality Specialist Relationship Specialty Start Date End Date Misael Perez MD [address] [place] [phone] PCP - General Family Medicine 04/06/23 Hospitality Specialist Relationship Specialty Start Date End Date Misael Perez MD [address] [place] [phone] PCP - General Family Medicine 04/06/23 Team Status: Inactive Member Role Status Dates Misael Perez MD Primary Care Provider Active S tart: November 22, 2023 End: November 22, 2023 Kuldeep Almazan MD Attending Provider Active Start: November 22, 2023 End: November 22, 2023 Hospitality Specialist Relationship Specialty Start Date End Date Misael Perez MD [address] [place] [phone] PCP - General Family Medicine 04/06/23 Hospitality Specialist Relationship Specialty Start Date End Date Misael Perez MD [address] [place] [phone] PCP - General Family Medicine 04/06/23 Hospitality Specialist Relationship Specialty Start Date End Date Misael Perez MD [address] [place] [phone] PCP - General Family Medicine 04/06/23 Hospitality Specialist Relationship Specialty Start Date End Date Misael Perez MD [address] [place] [id number] PCP - General Family Medicine 04/06/23 Hospitality Specialist Relationship Specialty Start Date End Date Misael Perez MD [address] [place] [phone] PCP [facility] 04/06/23 Hospitality Specialist Relationship Specialty Start Date End Date Misael Perez MD [address] [place] [phone] [facility] 04/06/23 Misael Perez MD [address] [place] [phone] PCP - [facility]CO Reach 04/12/24 Hospitality Specialist Relationship Specialty Start Date End Date Misael Perez MD [address] [place] [phone] [facility] 04/06/23 Misael Perez MD [address] [place] [phone] [facility]CP [facility] 04/12/24 Hospitality Specialist Relationship Specialty Start Date End Date Misael Perez MD [address] [place] [phone] [facility] 04/06/23 Misael Perez MD [address] [place] [phone] [facility]CP [facility] Re[facility] 04/12/24 Goals (unrecognized section and content) Goals may [...] BE BASED ON THE PRIMARY CLINICAL RECORDS. [facility] provides no warranty or guarantee of the accuracy or completeness of information in this document.
[2024-06-03 11:43] LABS: Basophils Percent Auto 0.7 % (0.2-2.0); Eosinophils Absolute Auto 0.1 10^3/uL (0.0-0.7); Eosinophils Percent Auto 2.1 % (0.9-7.0); Hematocrit 30.7 % (36.0-48.0); Hemoglobin 9.8 g/dL (12.0-16.0); Immature Granulocytes Abs Auto 0.01 10^3/uL (0.00-0.03); Immature Granulocytes Pct Auto 0.2 % (0.0-0.5); Lymphocytes Absolute Auto 1.2 10^3/uL (1.2-3.8); Lymphocytes Percent Auto 21.5 % (20.5-60.0); Mean Corpuscular HGB Conc 31.9 g/dL (29.9-35.2); Mean Corpuscular Hemoglobin 30.6 pg (26.7-34.0); Mean Corpuscular Volume 95.9 fL (81.0-99.0); Mean Platelet Volume 10.5 fL (9.5-13.5); Monocytes Absolute Auto 0.6 10^3/uL (0.3-0.8); Monocytes Percent Auto 9.7 % (1.7-12.0); Neutrophils Absolute Auto 3.8 10^3/uL (1.4-6.5); Neutrophils Percent Auto 65.8 % (43.0-75.0); Platelet Count 199 10^3/uL (150-450); Red Cell Distribution Width 12.6 % (11.0-15.0); White Blood Count 5.8 10^3/uL (4.0-11.0)
[2024-06-03 12:06] LABS: Creatinine Urine Random 90.04 mg/dL (20.00-300.00); Microalbum Creatinine Ratio Ur 16.6 mg/g (0.0-29.9); Microalbumin Urine Random 1.5 mg/dL (<=30.0)
[2024-06-03 12:19] LABS: Alanine Aminotransferase 12 U/L (14-59); Albumin Globulin Ratio 1.5; Albumin Level 4.1 g/dL (3.4-5.0); Alkaline Phosphatase 47 U/L (46-116); Anion Gap 12.8; Aspartate Amino Transferase 12 U/L (15-37); Bilirubin Direct 0.1 mg/dL (0.0-0.2); Bilirubin Total 0.4 mg/dL (0.2-1.0); Calcium 8.6 mg/dL (8.5-10.1); Carbon Dioxide 28.4 mmol/L (21.0-32.0); Chloride 106 mmol/L (98-107); Chol HDL Ratio 2.8; Cholesterol 152 mg/dL (<=200); Estimated GFR (African America 37 (>=60 mL/min/1.73m^2); Estimated GFR (Non-African Ame 30 (>=60 mL/min/1.73m^2); Globulin 2.8 g/dL; Glucose 89 mg/dL (74-106); HDL Cholesterol 54 mg/dL (40-60); LDL Cholesterol Calculated 70.8 mg/dL; Potassium 5.2 mmol/L (3.5-5.1); Sodium 142 mmol/L (136-145); Total Protein 6.9 g/dL (6.4-8.2); Triglycerides 136 mg/dL (<=150); VLDL CHOLESTEROL 27.2 mg/dL
[2024-06-03 12:24] LABS: Estimated Average Glucose 111 mg/dL; Glycohemoglobin A1C 5.5 % (4.5-6.2)
== END 2024-06-03 10:56 | disposition home or self-care (01) ==
PROVIDERS: PCP Family Medicine; Visit Provider Family Medicine
DX: E11.65 Type 2 diabetes mellitus with hyperglycemia (principal); N18.32 Chronic kidney disease, stage 3b; Z79.899 Other long term (current) drug therapy; E78.5 Hyperlipidemia, unspecified; E66.9 Obesity, unspecified; E55.9 Vitamin D deficiency, unspecified; R19.7 Diarrhea, unspecified
CPT/HCPCS: 36415; 80048; 80061; 80076; 82043; 82306; 82570; 82784; 83036; 84443; 85025; 85652; 86140; 86231; 86258; 86364; 87389

== ENCOUNTER 2024-06-05 19:06 | Outpatient (REF) | payer MEDICARE, OTHER, SELFPAY ==
--- OUTSIDE RECORDS SUMMARY | 2024-06-05 19:15 | XMS_ITS | CCD ---
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 Name Role Phone PHYSICIAN, DEFAULT Unavailable Unavailable [...] Unavailable Naderer Misael LOPEZ Primary Care Provider [phone] MD Misael Perez Primary Care Provider [phone] DO Liliana Kaba Emergency Provider MD Meagan Roman Admit Provider MD Meagan Roman Attending Provider MD Kuldeep Almazan Other Provider MD Aleyda Collins Other Provider LUL, FELIPE Acuna Referring Unavailable [...] Attending Unavailable NADERER, MISAEL Primary Care Unavailable ALEYDA COLLINS Referring Unavailable NADNIKI, MISAEL Primary Care Unavailable MD Tah Immicki Attending Provider [phone] MD Misael Perez Primary Care Provider [phone] Misael Perez MD Primary Care Provider Tha LOPEZ, Immicki Attending Provider Asaad, Imad Admitting Unavailable Asaad, Imad Attending Unavailable Misael Perez Primary Care Unavailable Asaad, Imad Admitting Unavailable Asaad, Imad Attending Unavailable Misael Perez Primary Care Unavailable Asaad, Imad Consulting Unavailable LizzskieneMeagan Admitting Unavailable Meagan Roman Attending Unavailable Misael Perez Primary Care Unavailable Aleyda Collins Consulting Unavailable Misael Perez MD Unavailable JAKOB SMALLS Admitting Unavailable JAKOB SMALLS Attending Unavailable MOUKARBEL, ELLEN Attending Unavailable MOUKARBEL, ELLEN Attending Unavailable JAKOB SMALLS Attending Unavailable JAKOB SMALLS Referring Unavailable NADERER, MISAEL Attending Unavailable NADERER, MISAEL Attending Unavailable LUL, FELIPE Acuna Attending Unavailable LUL, FELIPE Acuna Referring Unavailable MISAEL PEREZ Attending Unavailable SHAIKH BAILEY Attending Unavailable RYDERWOOD, FELIPE Acuna Attending Unavailable BELEN PATRICK Attending Unavailable RYDERWOOD, FELIPE Acuna Referring Unavailable JL PEPE Attending Unavailable RYDERWOOD, FELIPE Acuna Referring Unavailable JL PEPE Attending Unavailable RYDERWOOD, FELIPE Acuna Referring Unavailable JL PEPE Attending Unavailable RYDERWOOD, FELIPE Acuna Referring Unavailable MISAEL PEREZ Attending Unavailable RYDERWOOD, FELIPE Acuna Attending Unavailable RYDERWOOD, FELIPE Acuna Referring Unavailable YULY VALDERRAMA Attending Unavailable RYDERWOOD, FELIPE Acuna Referring Unavailable JL PEPE Attending Unavailable SHAIKH BAILEY Referring Unavailable CHERY VELA Attending Unavailable MISAEL PEREZ Attending Unavailable CHERY VELA Attending Unavailable CHERY VELA Referring Unavailable Tha LOPEZ, Imad Attending Provider Allergies Allergy Classification Reported Allergen(s) Allergy Type Date of Onset Reaction(s) Facility Latex (1 source) Latex Substance Allergy 4 [facility] NSAIDs (1 source) Ketorolac Drug Allergy 4 Swelling of Lip/Tongue/Thro at [facility] (20 sources) Latex; Translations: [LATEX] Propensity to adverse reactions 4 [facility] (1 source) DULoxetine Drug Allergy [facility] Repository (1 source) Ketorolac Drug Allergy [facility] Repository (1 source) natural latex rubber Drug allergy (disorder) [facility] Repository (3 sources) NSAIDs; Translations: [NSAIDS (NON-STEROIDAL ANTI-INFLAMMATO RY DRUG)] Drug allergy (disorder) 9 [facility] Repository (20 sources) Latex Allergy to substance 3 Unknown [facility] Work Phone: (20 sources) Ketorolac; Translations: [KETOROLAC] Propensity to adverse reactions 9 Rash [facility] (20 sources) Non-steroidal anti-inflammato ry agent Drug Intolerance 9 Swelling, Rash [facility] (1 source) Ketorolac Drug Allergy 4 [facility] Repository (1 source) Latex Drug allergy (disorder) 4 [facility] Repository (1 source) amLODIPine; Translations: [AMLODIPINE] Drug Allergy 5 [facility] Repository Medications Current Medications Medication [...] by mouth every six hours as needed for pain Oxycodone-Acetaminophen 10-325 mg tablet Active 1 TAB PO Every 6 hours as needed for pain July 13, 2023 12:00am Start: 03-22-2023 take [...] PO every week July 13, 2023 12:00am take 1 tablet [...] take 1 tablet by mouth once daily Atorvastatin 10 mg tablet Active 10 MG PO Daily July 13, 2023 12:00am take 1 tablet by bi th every twenty-four hours Atorvastatin Calcium 10 MG 1 tablet Oral ly Once a day Active carvedilol 12.5 mg oral tablet (4 sources) alpha-Adrenergic Raquel, beta-Adrenergic Raquel Start: 01-22-2024 [...] day for 30 day(s) Active epoetin anjana 58356 unt/ml injectable solution (1 source) Erythropoiesis-stimulat ing Agent Procrit 12467 UNIT/ML as directed Injection once a month Active ferrous sulfate 325 mg oral tablet (20 sources) Start: 07-13-2023 take 1 tablet by mouth once daily Ferrous Sulfate 325 mg (65 mg iron) tablet Active 325 MG PO Daily July 13, 2023 12:00am take 1 tablet by mouth once walt y Ferrous Sulfate 325 (65 Fe) MG 1 tablet Orally Once a day for 90 day(s) Active furosemide 40 mg oral tablet (20 sources) Loop Diuretic Start: 01-25-2024 take 1 tablet by mouth once daily Furosemide 40 mg tablet Active 0 .ROUTE .COMPLEX 90 January 25, 2024 10:53am TAKE 1 TABLET BY MOUTH DAILY Start: 01-02-2023 End: 01-25-2024 take 1 tablet by mouth once daily Furosemide (Lasix) 40 mg tablet Discontinued 40 MG PO Daily July 13, 2023 12:00am August 01, 2023 10:48am take 1 tablet by [facility] every twenty-four hours Lasix 20 MG 1 tablet Orally Once a day for 90 day(s) Active gabapentin 100 mg oral capsule (20 sources) Anti-epileptic Agent Start: 11-27-2023 End: 09-02-2024 take 1 capsule by mouth every eight hours gabapentin (Neurontin) 100 MG capsule Indications: Paresthesia of both feet Take 1 capsule (100 mg) by mouth every 8 (eight) hours 90 capsule 2 06/04/2024 09/02/2024 Active Start: 08-14-2023 take 1 capsule by mo [facility] three times daily Gabapentin 100 mg capsule Active 100 MG PO Three times daily August 14, 2023 12:00am Start: 02-21-2023 End: 05-22-2023 take 1 capsule by mouth every eight hours gabapentin (Neurontin) 100 MG capsule Indications: Paresthesia of both feet Take 1 capsule (100 mg) by mouth every 8 (eight) hours 90 capsule 2 02/21/2023 05/22/2023 Active take 1 capsule by mo ut every eight hours Gabapentin 100 MG 1 capsule Orally THREE TIMES A DAY Active glucosamine sulfate 500 mg oral tablet (20 sources) Start: 07-13-2023 take 1 tablet by mouth once daily Glucosamine Sulfate 500 mg tablet Active 500 MG PO Daily July 13, 2023 12:00am take 1 tablet by bi th every twenty-four hours Glucosamine 500 mg 1 tablet Orally Daily Active 10 ml iron sucrose 20 mg/ml injection (7 sources) Parenteral Iron Replacement Start: 08-21-2023 Iron Sucrose (Venofer) 200 mg iron/10 mL solution Active 200 MG IV Q3D August 21, 2023 12:00am administer over 30 mins metFORMIN hydrochloride 1000 [...] release 24 hr Active MG PO January 02, 2024 12:00am Start: 01-02-2024 Metoprolol Suc cinate Active MG PO January 02, 2024 12:00am Start: 07-27-2023 End: 06-03-2024 take 1 tablet by mouth once daily Metoprolol Succinate 50 mg tablet extended release 24 hr Discontinued 50 MG PO Daily August 14, 2023 12:00am November 22, 2023 10:31am OXcarbazepine 150 mg oral tablet (13 sources) Anti-epileptic Agent take 1 tablet by mouth every twenty-four hours Trileptal 150 MG 1 Tablet Orally ONCE A DAY Active take 1 tablet by bi th three times daily as needed Trileptal 150 MG 1 Tablet Orally THREE TIMES A DAY,As needed Active pantoprazole 40 mg delayed release oral tablet (20 sources) Proton Pump Inhibitor Start: 05-29-2024 Pantoprazole 40 mg tablet,delayed release (DR/EC) Active 40 MG PO Twice daily 112 56 May 29, 2024 12:00am take 30 min prior to meal BID for 8 weeks then return to once daily Start: 10-10-2023 End: 10-10-2023 take 1 tablet by mouth once daily Pantoprazole (Protonix) 40 mg tablet,delayed release (DR/EC) Active 40 MG PO Daily 90 October 10, 2023 1:20pm Start: 08-15-2023 [...] 13, 2023 12:00am August 15, 2023 2:29pm traMADol hydrochloride 50 mg oral tablet (3 sources) Opioid Agonist End: 04-10-2023 traMADol (Ultram) 50 MG tablet every 6 (six) hours. 0 04/10/2023 Discontinued (Med list cleanup) ubidecarenone 400 mg oral capsule (14 sources) Start: 07-13-2023 take 10 capsules by mouth once daily Coenzyme Q10 400 mg capsule Active 400 MG PO Daily July 13, 2023 12:00am take 1 capsule by [facility] every twenty-four hours CoQ-10 400 MG [...] 10 mg tablet Discontinued 0 .ROUTE .COMPLEX 90 May 09, 2023 5:04pm August 14, 2023 4:22pm TAKE 1 TABLET BY MOUTH DAILY Start: 04-24-2023 End: 05-09-2023 take 1 tablet by mouth once daily Amlodipine 10 mg tablet Discontinued 10 MG PO Daily April 24, 2023 1:00am May 09, 2023 5:04pm amLODIPine (Norv asc) 10 MG tablet 1 (one) time each day at the same time. 0 Active cholecalciferol 0.05 mg oral capsule (20 sources) Vitamin D Start: 07-13-2023 End: 06-03-2024 take 1 capsule by mouth once daily Cholecalciferol (Vitamin D3) 50 mcg (2,000 unit) capsule Discontinued 2000 UNIT PO Daily July 13, 2023 12:00am January 02, 2024 1:13pm Finerenone 10 MG (8 sources) Start: 01-13-2022 [...] Discontinued 0 .ROUTE .COMPLEX December 06, 2023 6:06pm December 07, 2023 3:52pm TAKE 1 TABLET BY MOUTH DAILY Start: 12-10-2020 End: 06-04-2024 take 1 tablet by mouth once daily Lisinopril 5 mg tablet Discontinued 5 MG PO Daily July 13, 2023 12:00am December 06, 2023 6:10pm LORazepam 0.5 mg oral tablet (4 sources) [...] Date Documented Date Episodic/Chronic Acute posthemorrhagic anemia (14 sources) Acute posthemorrhagic anemia; Translations: [Acute posthemorrhagic anemia] Onset: 4 08-15-2023 Episodic Anxiety disorders (20 sources) Generalized anxiety disorder; Translations: [Generalized anxiety [...] Resolved: 1 Chronic Deficiency and other anemia (18 sources) Anemia co-occurrent and due to chronic kidney disease stage 3; Translations: [Anemia due to stage 3b chronic kidney disease (HCC)] Onset: 3 06-06-2023 Chronic Deficiency and other anemia (18 sources) Iron deficiency anemia due to blood loss; Translations: [Iron 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 (chronic)] Onset: 4 08-22-2023 Chronic Deficiency and other anemia (4 sources) Iron deficiency anemia; Translations: [Iron deficiency anemia, unspecified] Onset: 3 04-11-2023 Episodic Deficiency and other anemia (9 sources) Anemia; Translations: [Anemia, unspecified] 08-15-2023 Episodic [...] 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] Onset: 4 04-11-2023 Chronic Gastritis and duodenitis (14 sources) Acute hemorrhagic gastritis; Translations: [Gastritis, unspecified, [...] (1 source) Patient encounter status; Translations: [Other chcf (current) drug therapy] 04-18-2023 Episodic Other aftercare (6 sources) Long-term current use of drug therapy; Translations: [Other intermediate manager (current) drug therapy] Onset: 5 06-03-2024 Episodic Other connective tissue disease (20 sources) History of total knee arthroplasty; Translations: [Presence of right artificial knee joint] Onset: 4 07-27-2023 Chronic Other diseases of kidney and ureters (17 sources) Secondary hyperparathyroidism; Translations: [Secondary hyperparathyroidism of renal origin] Chronic Other diseases of kidney and ureters (1 source) Kidney disease; Translations: [Disorder of kidney and ureter, unspecified] 08-14-2023 Episodic Other gastrointestinal disorders (9 sources) Occult blood in stools; Translations: [Other fecal abnormalities] 08-14-2023 Episodic Other gastrointestinal disorders (1 source) Diarrhea; Translations: [Diarrhea, unspecified] 05-29-2024 Episodic Other nervous system disorders (2 sources) Paresthesia of foot ; Translations: [Paresthesia of [...] nutritional; endocrine; and metabolic disorders (6 sources) Severe obesity; Translations: [Class 2 severe obesity due to excess calories with serious comorbidity and body mass index (BMI) of 35.0 to 35.9 in adult ([facility])] Onset: 4 06-03-2024 Chronic Other nutritional; endocrine; and metabolic disorders (20 sources) Hyperuricemia without signs of inflammatory arthritis and tophaceous disease; Translations: [Other abnormal blood chemistry] Onset: 2 Episodic Other nutritional; endocrine; and metabolic disorders (10 sources) Hyperuricemia; Translations: [Hyperuricemia without signs of [...] Da te Episodic/Chronic Deficiency and other anemia (7 sources) Anemia, unspecified; Translations: [Anemia, unspecified] Onset: 4 08-15-2023 Episodic Deficiency and other anemia (2 sources) Iron deficiency anemia, unspecified; Translations: [Iron deficiency anemia, unspecified] Onset: 3 Episodic Mood disorders (20 sources) Recurrent major depressive episodes, mild ; Translations: [Major depressive disorder, recurrent, mild] Onset: 4 Resolved: 4 04-18-2023 Chronic Other aftercare (2 sources) Other chcf (current) drug therapy; Translations: [[facility]ISON CURRENT DRUG THERAPY] Onset: 2 Episodic Other aftercare (18 sources) Post-discharge follow-up; Translations: [Encounter for follow-up [...] (EKG)] Onset: 4 Episodic Residual codes; unclassified (20 sources) Bilateral lower limb edema; Translations: [Localized [...] Onset: 5 Varicose veins of lower extremity (20 sources) Varicose veins of lower extremity; Translations: [Varicose veins of bilateral lower extremities with pain] Onset: 4 04-18-2023 Episodic Results Test Name Value Interpretation Reference Range Facility ALL CBC WITH AUTO DIFFon BASOPHILS ABSOLUTE AUTO [address] [facility] Basophils/100 WBC (Bld) 0.7 % 0.2 - 2.0 % [facility] Eosinophils/100 WBC (Bld) 2.1 % 0.9 - 7.0 % [facility] Erythrocyte distribution width (RBC) [Ratio] 12.6 % 11.0 - 15.0 % [facility] Hematocrit (Bld) [Volume fraction] 30.7 % Low 36.0 - 48.0 % [facility] Hemoglobin (Bld) [Mass/Vol] 9.8 g/dL Low 12.0 - 16.0 g/dL [facility] IMMATURE GRANULOCYTES ABS AUTO 0.01 [facility] Immature granulocytes/100 WBC (Bld) 0.2 % 0.0 - 0.5 % [facility] Interpretation and review of laboratory results Abnormal [facility] LYMPHOCYTES ABSOLUTE AUTO 1.2 [facility] Lymphocytes/100 WBC (Bld) 21.5 % 20 .5 - 60.0 % [facility] MCH (RBC) [Entitic mass] 30.6 pg 26. 7 - 34.0 pg [facility] MCHC (RBC) [Mass/Vol] 31.9 g/dL 29.9 - 35.2 g/dL [facility] MCV (RBC) [Entitic vol] 95.9 fL 81.0 - 99.0 fL [facility] MONOCYTES ABSOLUTE AUTO 0.[address] [facility] Monocytes/100 WBC (Bld) 9.7 % 1.7 - 12.0 % [facility] NEUTROPHILS ABSOLUTE AUTO 3.8 [facility] Neutrophils/100 WBC (Bld) 65.8 % 43 .0 - 75.0 % [facility] Platelet mean volume (Bld) [Entitic vol] 10.5 fL 9.5 - 13.5 fL [facility] EO # 0.1 [facility] PLT 199 [facility] RBC 3.2 Low [facility] WBC 5.8 [facility] Erythrocyte sedimentation ra te by Photometric methodOrdered By: Immicki Almazan on 06-03-2024 ESR Photometric method (Bld) [Velocity] Erythrocyte sedimentation rate by Photometric method 0-29 [facility] HPon 05-06-2024 HP Attestation signed by Jakob Smalls [...] be an additional personal documentation from me. PR Electrophysiology Consult Note PR Cardiology [facility] Reason for visit: Loop implant [...] Use: Not At Risk (12/03/2023) Received from [facility] AUDIT-C Frequency of Alcohol Consumption: Never Average Number of Drinks: Patient does not drink Frequency of Binge Drinking: Never Financial Resource Strain: Low Risk (12/03/2023) Received from [facility] Overall Financial Resource Strain (CARDIA) Difficulty of Paying Living Expenses: Not hard at all Food Insecurity: No Food Insecurity (12/03/2023) Received from [facility] Hunger Vital Sign Worried About Running Out of Food in the Last Year: Never true Ran Out of Food in the Last Year: Never true Transportation Needs: No Transportation Needs (12/03/2023) Received from [facility] PRAPARE - Transportation Lack of Transportation (Medical): No Lack of Transportation (Non-Medical): No Physical Activity: Insufficiently Active (12/03/2023) Received from [facility] Exercise Vital Sign Days of Exercise per Week: 2 days Minutes of Exercise per Session: 20 min Stress: No Stress Concern Present (12/03/2023) Received from [facility] [place] [facility] Occupational Health - Occupational Stress Questionnaire Feeling of Stress : Only a little Social Connections: Socially Isolated (12/03/2023) Received from [facility] Social Connection and Isolation Panel [NHANES] Frequency of Communication with Friends and Family: Three times a week Frequency of Social Gatherings with Friends and Family: Twice a week Attends Mu-Ism Services: Never Active Member of Clubs or Organizations: No Attends Club or Organization Meetings: Never Marital Status: Intimate Partner Violence: Not on file Depression: Not at risk (07/27/2023) Received from [facility] Runner [facility] PHQ-2 Patient Health Questionnaire-2 Score: 0 Housing Stability: Low Risk (12/03/2023) Received from [facility] Housing Stability Vital Sign Unable to Pay for Housing in the Last Year: No Number of Times Moved in the Last Year: 0 Homeless in the Last Year: No Utilities: Not At Risk (07/19/2023) [facility] Utilities Threatened with loss of utilities: No Health Literacy: Adequate Health Literacy (12/03/2023) Received from [facility] Runner [facility] B1300 Health Literacy Frequency of need for help with medical instructions: Never Allergies: Allergies Allergies Allergen Reactions Amlodipine Swelling Ketorolac Other, Rash and Unknown Other Re (more content not included)... [facility] NURSNOTEon 05-06-2024 NURSNOTE RN educated pt on [...] off of unit with all of belongings. [facility] NM AAMIR PERF SPECT REST STRon 04-10-2024 [place] [address] Nuclear Medicine Report Signed Patient: MALGORZATA SIMMONS MR#: [id number] : 1945 Acct:[id number] Age/Sex: 78 / F ADM Date: 04/10/24 Loc: [place] Attending Dr: Jakob Smalls M.D. Ordering Physician: Jakob Smalls M.D. Date of Service: 04/10/24 Procedure(s): NM aamir perf SPECT rest str Accession Number(s): [id number] cc: Jakob Smalls M.D.; Misael Perez M.D. Patient Name: MALGORZATA SIMMONS MR#: [id number] : 1945 Exam Date: 04/10/2024 Ordering Doctor: [...] the study was pending per attending physician PRKRYSTIN . For more details please see separate [...] Signed By: 04/10/24 1615 DD/ 13 TD/TT: Human Resources File Clerk: [facility] Radiology, Radiologist, MD - 04/10/2024 [place] [address] Nuclear Medicine Report Signed Patient: MALGORZATA SIMMONS MR#: [id number] : 1945 Acct:[id number] Age/Sex: 78 / F ADM Date: 04/10/24 Loc: [place] Attending Dr: Jakob Smalls M.D. Ordering Physician: Jakob Smalls M.D. Date of Service: 04/10/24 Procedure(s): NM aamir perf SPECT rest str Accession Number(s): [id number] cc: Jakob Smalls M.D.; Misael Perez M.D. Patient Name: MALGORZATA SIMMONS MR#: [id number] : 1945 Exam Date: 04/10/2024 Ordering Doctor: [...] the study was pending per attending physician [facility] . For more details please see separate [...] Dictated By: Ace Dan M.D. Signed By: 04/10/241614 DD/ 1614 TD/TT: Human Resources File Clerk: [facility] Radiology Study observation (narrative) [facility] NM AAMIR PERF SPECT REST STROr dered By: Radiologist Radiology on 04-10-2024 [facility] Work Phone: Office Visiton 04-02-2024 Follow-up visit [id number] Malgorzata Simmons John 1945 Date Provider Department Center 04/02/2024 JAKOB ADLER [facility] Family History Problem Relation Age of Onset Hypertension Brother Family Status - Relation Status Age at Brother Level of Service:32255 DC OFFICE/OUTPATIENT NEW MODERATE MDM 45 MINUTES Normal [facility] Orders Onlyon 04-02-2024 Orders Only [id number] Malgorzata Simmons John 1945 Date Provider Department Center 04/02/2024 JAVAD URIBE [facility] Family History Problem Relation Age of Onset Hypertension Brother Family Status - Relation Status Age at Brother Normal [facility] Office Visiton 03-22-2024 Follow-up visit [id number] Malgorzata Simmons John 1945 Date Provider Department Center 03/22/2024 ELLEN ECHEVERRIA [facility] Family History Problem Relation Age of Onset Hypertension Brother Family Status - Relation Status Age at Brother Level of Service:77412 DC OFFICE/OUTPATIENT ESTABLISHED MOD MDM 30 MIN Normal [facility] Office Visiton 01-24-2024 Follow-up visit [id number] Jean Simmonsleobardo Lopez 1945 [facility] Provider Department Center 01/24/2024 ELLEN ECHEVERRIA [facility] Family History Problem Relation Age of Onset Hypertension Brother Family Status - Relation Status Age at Brother Level of Service:52246 DC OFFICE/OP CONSLTJ NEW/EST PT HIGH MDM 55 MINUTES Normal [facility] XR Knee - right 1 or 2 [...] Stable RT total knee replacement. Chery Vela [employer] [facility] Radiology Study observation (narrative) [facility] Erythrocyte distribution wid th Auto (RBC) [Ratio]on 12-26-2023 Erythrocyte distribution width (RBC) [Ratio] 14.0 % 11.0-15.0 [facility] Erythrocyte distribution width (RBC) [Ratio] Erythrocyte distribution width [Ratio] by Automated count 11.0-15.0 [facility] Estimated glomerular filtrat ion rate (GFR) non- Americanon 12-26-2023 GFR/1.73 sq M.predicted among non-blacks MDRD (S/P/Bld) [Vol rate/Area] 31 mL/min/{1.73_m2} Low >=60 mL/min/1.73 m 2 [facility] GFR/1.73 sq M.predicted among non-blacks MDRD (S/P/Bld) [Vol rate/Area] Estimated glomerular filtration rate (GFR) non- Low >=60 mL/min/1.73 m 2 [facility] WITH PLATELET NO DI FFERENTIALon 12-26-2023 Erythrocyte distribution width (RBC) [Ratio] 14 % 11.0 - 15.0 % [facility] Hematocrit (Bld) [Volume fraction] 33 % Low 36.0 - 48.0 % [facility] Interpretation and review of laboratory results Abnormal [facility] TBH PLT 251 [facility] TBH RBC 3.48 Low [facility] TB WBC 7.4 [facility] Hematocrit Auto (Bld) [Volum e fraction]on 12-26-2023 Hematocrit (Bld) [Volume fraction] 33.0 % Low 36.0-48.0 [facility] Hematocrit (Bld) [Volume fraction] Hematocrit [Volume Fraction] of Blood by Automated count Low 36.0-48.0 [facility] Hemoglobin [Mass/volume] in Bloodon 12-26-2023 Hemoglobin (Bld) [Mass/Vol] 10.5 g/dL Low 12.0-16.0 [facility] Hemoglobin (Bld) [Mass/Vol] Hemoglobin [Mass/volume] in Blood Low 12.0-16.0 [facility] Iron binding capacity [Mass/ volume] in Serum or Plasmaon 12-26-2023 Iron binding capacity [Mass/Vol] 284.0 ug/dL 250.0-450.0 [facility] [facility] Iron binding capacity [Mass/Vol] Iron binding capacity [Mass/volume] in Serum or Plasma 250.0-450.0 [facility] Iron saturation [Mass Fracti on] in Serum or Plasmaon 12-26-2023 Iron saturation [Mass fraction] 32.7 % [facility] Iron saturation [Mass fraction] Iron saturation [Mass Fraction] in Serum or Plasma [facility] Laboratory - Chemistry and C hemistry - challengeon 12-26-2023 Albumin [Mass/Vol] 4.3 g/dL 3.4-5.0 [facility] Calcium [Mass/Vol] 10.2 mg/dL High 8.5-10.1 [facility] Chloride [Moles/Vol] 107 mmol/L 98-107 [facility] CO2 [Moles/Vol] 25.6 mmol/L 21.0-32.0 [facility] Creatinine [Mass/Vol] 1.60 mg/dL High 0.55-1.02 [facility] Ferritin [Mass/Vol] 328.0 ng/mL High 8.0-252.0 [facility] GFR/1.73 sq M.predicted MDRD (S/P/Bld) [Vol rate/Area] 38 mL/min/{1.73_m2} Low >=60 mL/min/1.73 m 2 [facility] Glucose [Mass/Vol] 102 mg/dL 74-106 [facility] Iron [Mass/Vol] 93.0 ug/dL 50.0-170.0 [facility] Magnesium [Mass/Vol] 2.0 mg/dL 1.8-2.4 [facility] Potassium [Moles/Vol] 5.6 mmol/L High 3.5-5.1 [facility] Sodium [Moles/Vol] 145 mmol/L 136-145 [facility] Urea nitrogen [Mass/Vol] 33.0 mg/dL High 7.0-18.0 [facility] Urea nitrogen/Creatinine [Mass ratio] 20.6 mg/mg [facility] Leukocytes [#/volume] correc azul for nucleated erythrocytes in Blood by Automated counon 12-26-2023 WBC corrected for nucl RBC Auto (Bld) [#/Vol] 7.4 10 3/uL 4.0-11.0 [facility] WBC corrected for nucl RBC Auto (Bld) [#/Vol] Leukocytes [#/volume] corrected for nucleated erythrocytes in Blood by Automated coun 4.0-11.0 [facility] MCH Auto (RBC) [Entitic mass ]on 12-26-2023 MCH (RBC) [Entitic mass] MCH [Entitic ma ss] by Automated count 26.7-34.0 [facility] MCH [Entitic mass] by Automa azul counton 12-26-2023 MCH (RBC) [Entitic mass] 30.2 pg 26.7-34.0 [facility] MCHC Auto (RBC) [Mass/Vol]on 12-26-2023 MCHC (RBC) [Mass/Vol] MCHC [Mass/volume] by Automated count 29.9-35.2 [facility] MCHC [Mass/volume] by Automa azul counton 12-26-2023 MCHC (RBC) [Mass/Vol] 31.8 g/dL 29.9-35.2 [facility] MCV Auto (RBC) [Entitic vol] on 12-26-2023 MCV (RBC) [Entitic vol] MCV [Entitic vol ume] by Automated count 81.0-99.0 [facility] MCV [Entitic volume] by Auto mated counton 12-26-2023 MCV (RBC) [Entitic vol] 94.8 fL 81.0-99.0 [facility] No Panel Informationon 12-25 Phosphorus Level 4.6 mg/dL 2.6-4.7 [facility] Platelet mean volume Auto (B ld) [Entitic vol]on 12-26-2023 Platelet mean volume (Bld) [Entitic vol] Platelet mean volume [Entitic volume] in Blood by Automated count 9.5-13.5 [facility] Platelet mean volume [Entiti c volume] in Blood by Automated counton 12-26-2023 Platelet mean volume (Bld) [Entitic vol] 10.4 fL 9.5-13.5 [facility] Platelets Auto (Bld) [#/Vol] on 12-26-2023 Platelets (Bld) [#/Vol] 251 10 3/uL 150-450 [facility] Platelets (Bld) [#/Vol] Platelets [#/vol ume] in Blood by Automated count 150-450 [facility] RBC Auto (Bld) [#/Vol]on RBC (Bld) [#/Vol] 3.48 10 6/uL Low 4.20-5.40 [facility] RBC (Bld) [#/Vol] Erythrocytes [#/volume] in Blood by Automated count Low 4.20-5.40 [facility] Serum or plasma anion gap de terminationon 12-26-2023 Anion gap [Moles/Vol] 18.0 [facility] Anion gap [Moles/Vol] Serum or plasma anion gap determination [facility] MLR HEMOGLOBIN A1Con 024 Glucose [Mass/Vol] 108 mg/dL [facility] HbA1c (Bld) [Mass fraction] 5.4 % 4.5 - 6.2 % [facility] Comment on above: ADA RECOMMENDED LIMI T 4.0 - 6.0 ADA THERAPEUTIC TARGET < 7.0 ACTION SUGGESTED > 7.0 [facility] COMPLETE BLOOD COUNTon 09-17 Erythrocyte distribution width (RBC) [Ratio] 15.4 % [facility] Comment on above: Performed By: #### C BCA, BMP, LIVR, 43984-0, 3016-3, 33891-1 #### [facility] ([id number]) [address], [address] [place] [address] Hematocrit (Bld) [Volume fraction] 30.2 % [facility] Comment on above: Performed By: #### C BCA, BMP, LIVR, 18948-7, 3016-3, 27807-1 #### [facility] ([id number]) [address], [address] [place] [address] Hemoglobin (Bld) [Mass/Vol] 10.1 g/dL [facility] Comment on above: Performed By: #### C BCA, BMP, LIVR, 08398-7, 3016-3, 01019-5 #### [facility] ([id number]) [address], [address] [place] [address] MCH (RBC) [Entitic mass] 29.9 pg [facility] Comment on above: Performed By: #### C BCA, BMP, LIVR, 01961-8, 3016-3, 86894-9 #### [facility] ([id number]) [address], [address] [place] [address] MCHC (RBC) [Mass/Vol] 33.6 g/dL [facility] Comment on above: Performed By: #### C BCA, BMP, LIVR, 90969-0, 3016-3, 61489-7 #### [facility] ([id number]) [address], [address] [place] [address] MCV (RBC) [Entitic vol] 89 fL [facility] Comment on above: Performed By: #### C BCA, BMP, LIVR, 47893-5, 3016-3, 97561-1 #### [facility] ([id number]) [address], [address] [place] [address] Platelet mean volume (Bld) [Entitic vol] 9.3 fL [facility] Comment on above: Performed By: #### C BCA, BMP, LIVR, 49855-9, 3016-3, 28364-2 #### [facility] ([id number]) [address], [address] [place] [address] Platelets (Bld) [#/Vol] 221 10*3/uL [facility] Comment on above: Performed By: #### C BCA, BMP, LIVR, 52590-3, 3016-3, 10692-5 #### [facility] ([id number]) [address], [address] [place] [address] RBC COUNT 3.39 X10E12/L Low 3.80-5.20 [facility] Comment on above: Performed By: #### C BCA, BMP, LIVR, 79135-5, 3016-3, 53481-5 #### [facility] ([id number]) [address], [address] [place] [address] WBC (Bld) [#/Vol] 5.6 10*3/uL [facility] Comment on above: Performed By: #### C BCA, BMP, LIVR, 21481-9, 3016-3, 73256-2 #### [facility] ([id number]) [address], [address] [place] [address] FERRITINon 09-18-2023 Ferritin [Mass/Vol] 352 ng/mL [facility] Comment on above: Performed By: #### C BCA, BMP, LIVR, 04802-3, 3016-3, 15666-8 #### [facility] ([id number]) [address], [address] [place] [address] IRON PROFILEon 09-18-2023 Iron [Mass/Vol] 77 ug/dL [facility] Comment on above: Performed By: #### C BCA, BMP, LIVR, 35724-8, 3016-3, 11405-2 #### [facility] ([id number]) [address], [address] [place] [address] IRON BINDING 246 ug/dL Low 250-425 [facility] Comment on above: Performed By: #### C BCA, BMP, LIVR, 68953-9, 3016-3, 16574-2 #### [facility] ([id number]) [address], [address] [place] [address] IRON SATURATION 31 % SATURATION Normal 15-50 [facility] Comment on above: Performed By: #### C BCA, BMP, LIVR, 72953-4, 3016-3, 34735-1 #### [facility] ([id number]) [address], [address] [place] [address] Laboratory - Hematology and Cell countson 09-18-2023 RBC (Bld) [#/Vol] 3.39 10*6/uL [facility] No Panel Informationon 09-17 Estimated GFR (Non- 40 mL/min Low [facility] Iron Saturation 31 [facility] Phosphorus Level 4.6 mg/dL [facility] Total Iron Binding Capacity 246 [facility] RENAL PANELon 09-18-2023 Albumin [Mass/Vol] 4.6 g/dL [facility] Comment on above: Performed By: #### C BCA, BMP, LIVR, 88019-1, 3016-3, 81745-7 #### [facility] ([id number]) [address], [address] [place] [address] Anion gap [Moles/Vol] 12 mmol/L Normal 5-15 [facility] Comment on above: Performed By: #### C BCA, BMP, LIVR, 68673-2, 3016-3, 92064-9 #### [facility] ([id number]) [address], [address] [place] [address] Calcium [Mass/Vol] 9.5 mg/dL [facility] Comment on above: Performed By: #### C BCA, BMP, LIVR, 28474-8, 3016-3, 15899-8 #### [facility] ([id number]) [address], [address] [place] [address] Chloride [Moles/Vol] 102 mmol/L [facility] Comment on above: Performed By: #### C BCA, BMP, LIVR, 00172-4, 3016-3, 05940-7 #### [facility] ([id number]) [address], [address] [place] [address] CO2 [Moles/Vol] 27 mmol/L [facility] Comment on above: Performed By: #### C BCA, BMP, LIVR, 79833-5, 3016-3, 94862-2 #### [facility] ([id number]) [address], [address] [place] [address] Creatinine [Mass/Vol] 1.37 mg/dL [facility] Comment on above: Result Comment: METH OD TRACEABLE TO IDMS STANDARD Performed By: #### C BCA, BMP, LIVR, 03730-8, 3016-3, 97641-0 #### [facility] ([id number]) [address], [address] [place] [address] GFR/1.73 sq M.predicted among non-blacks MDRD (S/P/Bld) [Vol rate/Area] 40 mL/min/{1.73_m2} Low >59 Pr [facility] Comment on above: Result Comment: Reported eGFR is based on the CKD-EPI 2020 equation that does not use a race coefficient. Performed By: #### C BCA, BMP, LIVR, 68181-2, 3016-3, 45439-3 #### [facility] ([id number]) [address], [address] [place] [address] Glucose [Mass/Vol] 93 mg/dL [facility] Comment on above: Performed By: #### C BCA, BMP, LIVR, 32403-8, 3016-3, 90577-1 #### [facility] ([id number]) [address], [address] [place] [address] Phosphate [Mass/Vol] 4.6 mg/dL Normal 2.4-4.9 [facility] Comment on above: Performed By: #### C BCA, BMP, LIVR, 50611-7, 3016-3, 55967-6 #### [facility] ([id number]) [address], [address] [place] [address] Potassium [Moles/Vol] 4.8 mmol/L [facility] Comment on above: Performed By: #### C BCA, BMP, LIVR, 17286-9, 3016-3, 77322-6 #### [facility] ([id number]) [address], [address] [place] [address] Sodium [Moles/Vol] 141 mmol/L [facility] Comment on above: Performed By: #### C BCA, BMP, LIVR, 59144-5, 3016-3, 41641-5 #### [facility] ([id number]) [address], [address] [place] [address] Urea nitrogen [Mass/Vol] 24 mg/dL [facility] Comment on above: Performed By: #### C BCA, BMP, LIVR, 20960-4, 3016-3, 37047-9 #### [facility] ([id number]) [address], [address] [place] [address] Automated basophil %Ordered By: Meagan Roman on 08-15-2023 Basophils/100 WBC (Bld) 0.8 % Normal . [facility] Comment on above: Performed By: #### C BC, BMP #### [facility] [address] Automated basophil countOrde red By: Meagan Roman on 08-15-2023 Basophils (Bld) [#/Vol] 0.0 10*3/uL Normal 0.0-0.2 [facility] Comment on above: Result Comment: PERF ORMED BY: [place] [address] PATHOLOGIST WAIST FITTER LATONIA BRAND M.D. Performed By: #### C BC, BMP #### [facility] [address] Automated blood monocyte cou ntOrdered By: Meagan Roman on 08-15-2023 Monocytes (Bld) [#/Vol] 0.5 10*3/uL Normal 0.0-0.8 [facility] Comment on above: Performed By: #### C BC, BMP #### [address] Automated eosinophil %Ordere d By: Meagan Roman on 08-15-2023 Eosinophils/100 WBC (Bld) 5.1 % Normal . [facility] Comment on above: Performed By: #### C BC, BMP #### [address] Automated eosinophil countOr dered By: Meagan Roman on 08-15-2023 Eosinophils (Bld) [#/Vol] 0.2 10*3/uL Normal 0.0-0.45 [facility] Comment on above: Performed By: #### C BC, BMP #### [address] Automated monocyte %Ordered By: Meagan Roman on 08-15-2023 Monocytes/100 WBC (Bld) 9.7 % Normal . [facility] Comment on above: Performed By: #### C BC, BMP #### [address] Automated neutrophil %Ordere d By: Meagan Roman on 08-15-2023 Neutrophils/100 WBC (Bld) 57.5 % Normal . [facility] Comment on above: Performed By: #### C BC, BMP #### [address] Basic Metabolic Panelon 08-04 Creatinine Clr Calc Pharmacy 37.31 Normal [facility] Comment on above: Result Comment: PERF ORMED BY: [place] [address] PATHOLOGIST WAIST FITTER LATONIA BRAND M.D. Performed By: #### C BC, TIBC, RADHA, [id number], FE, CMP #### [address] GFR/1.73 sq M.predicted MDRD (S/P/Bld) [Vol rate/Area] 43.688 mL/min/{1.73_m2} Normal [facility] Comment on above: Performed By: #### C BC, TIBC, RADHA, [id number], FE, CMP #### [facility] [address] [place] [address] [place] Calcium [Mass/volume] in Ser um or PlasmaOrdered By: Meagan Roman on 08-15-2023 Calcium [Mass/Vol] 9.0 mg/dL Normal 8.6-10.3 [facility] Comment on above: Performed By: #### C BC, TIBC, RADHA, [id number], FE, CMP #### [address] Carbon dioxide, total [Moles /volume] in Serum or PlasmaOrdered By: Meagan Roman on 08-15-2023 CO2 [Moles/Vol] 25.5 mmol/L Normal 21.0-31.0 [facility] Comment on above: Performed By: #### C BC, TIBC, RADHA, [id number], FE, CMP #### [place] [address] [place] Chloride [Moles/volume] in S matthew or PlasmaOrdered By: Meagan Roman on 08-15-2023 Chloride [Moles/Vol] 106 mmol/L Normal 98-107 [facility] Comment on above: Performed By: #### C BC, TIBC, RADHA, [id number], FE, CMP #### [place] [address] [place] Complete Blood Count Auto Di ffon 08-15-2023 Hematocrit (Bld) [Volume fraction] 26.1 % Low 34.0-46.4 [facility] Comment on above: Performed By: #### C BC, BMP #### [place] [address] [place] Hemoglobin (Bld) [Mass/Vol] 8.8 g/dL Low 11.8-15.4 [facility] Comment on above: Performed By: #### C BC, BMP #### [facility] [address] Mean Corpuscular HGB Conc 33.6 g/dL Normal 32.0-35.0 [facility] Comment on above: Performed By: #### C BC, BMP #### [facility] [address] NRBC% 0.1 /100{WBC} Normal 0-0.5 [facility] Comment on above: Performed By: #### C BC, BMP #### [facility] [address] Creatinine [Mass/volume] in Serum or PlasmaOrdered By: Meagan Roman on 08-15-2023 Creatinine [Mass/Vol] 1.28 mg/dL High 0.60-1.20 [facility] Comment on above: Performed By: #### C BC, TIBC, RADHA, [id number], FE, CMP #### [facility] [address] Erythrocyte distribution wid th [Ratio] by Automated countOrdered By: Meagan Roman on 08-15-2023 Erythrocyte distribution width (RBC) [Ratio] 14.8 % Normal 11.9-15.3 [facility] Comment on above: Performed By: #### C BC, BMP #### [facility] [address] [place] [address] [place] Erythrocytes [#/volume] in B lood by Automated countOrdered By: Meagan Roman on 08-15-2023 RBC (Bld) [#/Vol] 2.97 10*6/uL Low 3.60-5.00 [facility] Comment on above: Performed By: #### C BC, BMP #### [address] Glucose [Mass/volume] in Ser um or PlasmaOrdered By: Meagan Roman on 08-15-2023 Glucose [Mass/Vol] 98 mg/dL Normal 70-100 [facility] Comment on above: ADA recommended refe rence rangeRandom Glucose Reference Range is dependent on time and content of last meal. Glucose of more than 200 mg/dL in a nonstressed, ambulatory subject supports the diagnosis of Diabetes Mellitus. Result Comment: [place] om Glucose Reference Range is dependent on time and content of last meal. Glucose of more than 200 mg/dL in a nonstressed, ambulatory subject supports the diagnosis of Diabetes Mellitus. ADA recommended reference range Performed By: #### C BC, TIBC, RADHA, [id number], FE, CMP #### [facility] [address] [place] [address] Hematocrit [Volume Fraction] of Blood by Automated countOrdered By: Meagan Roman on 08-15-2023 Hematocrit (Bld) [Volume fraction] 27.3 % Low 34.0-46.4 [facility] Comment on above: Result Comment: PERF ORMED BY: [place] [address] PATHOLOGIST WAIST FITTER LATONIA BRAND M.D. Performed By: #### H H #### [address] Hemoglobin [Mass/volume] in BloodOrdered By: Meagan Roman on 08-15-2023 Hemoglobin (Bld) [Mass/Vol] 9.1 g/dL Low 11.8-15.4 [facility] Comment on above: Performed By: #### H H #### [place] [address] [place] Aroldo 08-15-2023 L Specimen: [id number] Received: 08/15/23 Status: EMILY Onofre Num: [id number] Spec Type: Surgical Subm Dr: Kuldeep Almazan MD Tissues: A GASTRIC FOR HP (GASTRIC HP) Procedures: HE/2, Gross/Micro L4, H PYLORI, IHC First AB Age/ Patient Sex Location Account Attending Physician Malgorzata Simmons 77/F 3T [id number] Meagan Roman MD SPEC NUM: [id number] RECD: 08/15/23 STATUS: EMILY ONOFRE NUM: [id number] ALEXUS: 08/15/23- DR: Kuldeep Almazan MD ENTERED: 08/15/23-1003 [facility] DR: SPEC TYPE: Surgical DEPT: S ORDERED: [...] cm, entirely submitted in A1. CPT Codes 39775 41239 Specimen: [id number] Received: 08/15/23 Status: SOUElina Req Num: [id number] Spec Type: Surgical Subm Dr: Kuldeep Almazan MD Tissues: A GASTRIC FOR HP (GASTRIC HP) Procedures: HE/2, Gross/Micro L4, H PYLORI, IHC First AB Patient: Malgorzata Simmons [id number] (Continued) Signed (signature on file) Riya Blanco MD 08/16/23 1618 Normal [facility] Leukocytes [#/volume] correc azul for nucleated erythrocytes in Blood by Automated counOrdered By: Meagan Roman on 08-15-2023 WBC corrected for nucl RBC Auto (Bld) [#/Vol] 4.9 10*3/uL 3.8-11.6 [facility] Leukocytes [#/volume] in Blo od by Automated countOrdered By: Meagan Roman on 08-15-2023 WBC (Bld) [#/Vol] 4.9 10*3/uL Normal 3.8-11.6 [facility] Comment on above: Performed By: #### C LIVE, BMP #### [facility] [address] [place] [address] Lymphocytes [#/volume] in Bl ood by Automated countOrdered By: Meagan Roman on 08-15-2023 Lymphocytes (Bld) [#/Vol] 1.3 10*3/uL Normal 1.00-4.8 [facility] Comment on above: Performed By: #### C LIVE, BMP #### [facility] [address] [place] [address] [place] Lymphocytes/100 leukocytes i n Blood by Automated countOrdered By: Meagan Roman on 08-15-2023 Lymphocytes/100 WBC (Bld) 26.9 % Normal . [facility] Comment on above: Performed By: #### C LIVE, BMP #### [address] MCH [Entitic mass] by Automa azul countOrdered By: Meagan Roman on 08-15-2023 MCH (RBC) [Entitic mass] 29.5 pg Normal 24.7-34.3 [facility] Comment on above: Performed By: #### C BC, BMP #### [address] MCHC Auto (RBC) [Mass/Vol]Or dered By: Meagan Roman on 08-15-2023 MCHC (RBC) [Mass/Vol] 33.6 g/dL 32.0-35.0 [facility] MCV [Entitic volume] by Auto mated countOrdered By: Meagan Roman on 08-15-2023 MCV (RBC) [Entitic vol] 87.6 fL Normal 80-100 [facility] Comment on above: Performed By: #### C BC, BMP #### [address] Neutrophils [#/volume] in Bl ood by Automated countOrdered By: Meagan Roman on 08-15-2023 Neutrophils (Bld) [#/Vol] 2.8 10*3/uL Normal 1.8-7.7 [facility] Comment on above: Performed By: #### C BC, BMP #### [address] No Panel InformationOrdered By: Meagan Roman on 08-15-2023 Estimated GFR (CKD-EPI) 43.688 mL/Min [facility] Creatinine Clearance (Chem 37.31 [facility] Nucleated erythrocytes [Pres ence] in Blood by Automated countOrdered By: Meagan Roman on 08-15-2023 Nucleated RBC Auto Ql (Bld) 0.1 /100{WBC} 0-0.5 [facility] Platelet mean volume [Entiti c volume] in Blood by Automated countOrdered By: Meagan Roman on 08-15-2023 Platelet mean volume (Bld) [Entitic vol] 8.3 fL Normal 6.3-10.7 [facility] Comment on above: Performed By: #### C BC, BMP #### [address] Platelets [#/volume] in Bloo d by Automated countOrdered By: Meagan Janne on 08-15-2023 Platelets (Bld) [#/Vol] 273 10*3/uL Normal 150-450 [facility] Comment on above: Performed By: #### C BC, BMP #### [address] Potassium [Moles/volume] in Serum or PlasmaOrdered By: Meagan Janne on 08-15-2023 Potassium [Moles/Vol] 5.0 mmol/L Normal 3.5-5.1 [facility] Comment on above: Performed By: #### C BC, TIBC, RADHA, [id number], FE, CMP #### [address] Serum or plasma anion gap de terminationOrdered By: Meagan Roman on 08-15-2023 Anion gap [Moles/Vol] 12.5 mmol/L Normal 6.0-15.0 [facility] Comment on above: Performed By: #### C BC, TIBC, RADHA, [id number], FE, CMP #### [place] [address] [place] Sodium [Moles/volume] in Ser um or PlasmaOrdered By: Meagan Janne on 08-15-2023 Sodium [Moles/Vol] 139 mmol/L Significant change down 136-145 [facility] Comment on above: Delta: 131 on -1754 Performed By: #### C BC, TIBC, RADHA, [id number], FE, CMP #### [address] Urea nitrogen [Mass/volume] in Serum or PlasmaOrdered By: Meagan Jessie on 08-15-2023 Urea nitrogen [Mass/Vol] 27 mg/dL High 7-25 [facility] Comment on above: Performed By: #### C BC, TIBC, RADHA, [id number], FE, CMP #### [facility] [address] [place] [address] ABO/Rh Retypeon 08-14-2023 ABO/RH Recheck Result Negative Normal [facility] Comment on above: Result Comment: PERF ORMED BY: [place] [address] PATHOLOGIST WAIST FITTER LATONIA BRAND M.D. Alanine aminotransferase [En zymatic activity/volume] in Serum or PlasmaOrdered By: Liliana Kaba on 08-14-2023 ALT [Catalytic activity/Vol] 6 U/L Low 7-52 [facility] Comment on above: Performed By: #### C BC, TIBC, RADHA, [id number], FE, CMP #### [address] Albumin [Mass/volume] in Ser um or Plasma by Bromocresol green (BCG) dye binding methoOrdered By: Liliana Kaba on 08-14-2023 Albumin BCG dye [Mass/Vol] 4.5 g/dL 3.5-5.7 [facility] Alkaline phosphatase [Enzyma tic activity/volume] in Serum or PlasmaOrdered By: Liliana Kaba on 08-14-2023 ALP [Catalytic activity/Vol] 55 U/L Normal 34-104 [facility] Comment on above: Performed By: #### C BC, TIBC, RADHA, [id number], FE, CMP #### [facility] [address] Aspartate aminotransferase [ Enzymatic activity/volume] in Serum or PlasmaOrdered By: Liliana Kaba on 08-14-2023 AST [Catalytic activity/Vol] 12 U/L Low 13-39 [facility] Comment on above: Performed By: #### C BC, TIBC, RADHA, [id number], FE, CMP #### [facility] [address] [place] [address] Automated basophil %Ordered By: PROVIDER TEMP on 08-14-2023 Basophils/100 WBC (Bld) 0.7 % Normal . [facility] Comment on above: Performed By: #### C BC, TIBC, RADHA, [id number], FE, CMP #### [address] Automated basophil countOrde red By: PROVIDER TEMP on 08-14-2023 Basophils (Bld) [#/Vol] 0.1 10*3/uL Normal 0.0-0.2 [facility] Comment on above: Result Comment: PERF ORMED BY: [place] [address] PATHOLOGIST WAIST FITTER LATONIA BRAND M.D. Performed By: #### C BC, TIBC, RADHA, [id number], FE, CMP #### [address] Automated blood monocyte cou ntOrdered By: PROVIDER TEMP on 08-14-2023 Monocytes (Bld) [#/Vol] 0.5 10*3/uL Normal 0.0-0.8 [facility] Comment on above: Performed By: #### C BC, TIBC, RADHA, [id number], FE, CMP #### [address] Automated eosinophil %Ordere d By: PROVIDER TEMP on 08-14-2023 Eosinophils/100 WBC (Bld) 3.3 % Normal . [facility] Comment on above: Performed By: #### C BC, TIBC, RADHA, [id number], FE, CMP #### [address] Automated eosinophil countOr dered By: PROVIDER TEMP on 08-14-2023 Eosinophils (Bld) [#/Vol] 0.3 10*3/uL Normal 0.0-0.45 [facility] Comment on above: Performed By: #### C BC, TIBC, RADHA, [id number], FE, CMP #### [address] Automated monocyte %Ordered By: PROVIDER TEMP on 08-14-2023 Monocytes/100 WBC (Bld) 6.8 % Normal . [facility] Comment on above: Performed By: #### C BC, TIBC, RADHA, [id number], FE, CMP #### [facility] [address] Automated neutrophil %Ordere d By: PROVIDER TEMP on 08-14-2023 Neutrophils/100 WBC (Bld) 70.0 % Normal . [facility] Comment on above: Performed By: #### C BC, TIBC, RADHA, [id number], FE, CMP #### [facility] [address] Bilirubin.total [Mass/volume ] in Serum or PlasmaOrdered By: Liliana Kaba on 08-14-2023 Bilirubin [Mass/Vol] 0.3 mg/dL Normal 0.3-1.0 [facility] Comment on above: Performed By: #### C BC, TIBC, RADHA, [id number], FE, CMP #### [address] Calcium [Mass/volume] in Ser um or PlasmaOrdered By: PROVIDER TEMP on 08-14-2023 Calcium [Mass/Vol] 8.7 mg/dL Normal 8.6-10.3 [facility] Comment on above: Performed By: #### C BC, TIBC, RADHA, [id number], FE, CMP #### [address] Carbon dioxide, total [Moles /volume] in Serum or PlasmaOrdered By: PROVIDER TEMP on 08-14-2023 CO2 [Moles/Vol] 23.7 mmol/L Normal 21.0-31.0 [facility] Comment on above: Performed By: #### C BC, TIBC, RADHA, [id number], FE, CMP #### [place] [address] [place] Chloride [Moles/volume] in S matthew or PlasmaOrdered By: PROVIDER TEMP on 08-14-2023 Chloride [Moles/Vol] 100 mmol/L Normal 98-107 [facility] Comment on above: Performed By: #### C BC, TIBC, RADHA, [id number], FE, CMP #### [address] Complete Blood Count Auto Di ffon 08-14-2023 Mean Corpuscular HGB Conc 33.6 g/dL Normal 32.0-35.0 [facility] Comment on above: Performed By: #### C BC, TIBC, RADHA, [id number], FE, CMP #### [address] Monocytes/100 WBC (Bld) 15.64 % Normal 0.00-20.00 [facility] Comment on above: Performed By: #### C BC, TIBC, RADHA, [id number], FE, CMP #### [address] NRBC% 0.1 /100{WBC} Normal 0-0.5 [facility] Comment on above: Performed By: #### C BC, TIBC, RADHA, [id number], FE, CMP #### [address] Comprehensive Metabolic Pane aroldo 08-14-2023 Albumin [Mass/Vol] 4.5 g/dL Normal 3.5-5.7 [facility] Comment on above: Performed By: #### C BC, TIBC, RADHA, [id number], FE, CMP #### [address] Creatinine Clr Calc Pharmacy 33.40 Normal [facility] Comment on above: Result Comment: PERF ORMED BY: [place] [address] PATHOLOGIST WAIST FITTER LATONIA BRAND M.D. Performed By: #### C BC, TIBC, RADHA, [id number], FE, CMP #### [address] GFR/1.73 sq M.predicted MDRD (S/P/Bld) [Vol rate/Area] 38.248 mL/min/{1.73_m2} Normal [facility] Comment on above: Performed By: #### C BC, TIBC, RADHA, [id number], FE, CMP #### [facility] [address] [place] [id number] [place] Creatinine [Mass/volume] in Serum or PlasmaOrdered By: PROVIDER TEMP on 08-14-2023 Creatinine [Mass/Vol] 1.43 mg/dL High 0.60-1.20 [facility] Comment on above: Performed By: #### C BC, TIBC, RADHA, [id number], FE, CMP #### [facility] [address] [place] [address] [place] ECG 12 lead ECGon 08-14-2023 ECG 12 lead ECG [facility] [place] [address] [place] [address] Electrocardiograph Report Signed Patient: Malgorzata Simmons MR#: [id number] : 1945 Acct:[id number] Age/Sex: 77 / F ADM Date: 08/14/23 Loc: Room: [address] [place] [address] Type: ADM INOo Attending Dr: Meagan Roman [...] ECGs available Confirmed by LILIANA KABA DO ([id number]) on 08/15/2023 1:51:01 AM Referred By: Electronically Signed By:LILIANA KABA DO Transcribed By: MUS Signed By Liliana Kaba DO 08/14 0151 Normal [facility] Erythrocyte distribution wid th Auto (RBC) [Ratio]on 08-14-2023 Erythrocyte distribution width (RBC) [Ratio] 14.0 % 11.0-15.0 [facility] Erythrocyte distribution wid th [Ratio] by Automated countOrdered By: PROVIDER TEMP on 08-14-2023 Erythrocyte distribution width (RBC) [Ratio] 14.6 % Normal 11.9-15.3 [facility] Comment on above: Performed By: #### C BC, TIBC, RADHA, [id number], FE, CMP #### [facility] [address] Erythrocytes [#/volume] in B lood by Automated countOrdered By: PROVIDER TEMP on 08-14-2023 RBC (Bld) [#/Vol] 2.57 10*6/uL Low 3.60-5.00 [facility] Comment on above: Performed By: #### C BC, TIBC, RADHA, [id number], FE, CMP #### [facility] [address] Estimated glomerular filtrat ion rate (GFR) non- Americanon 08-14-2023 GFR/1.73 sq M.predicted among non-blacks MDRD (S/P/Bld) [Vol rate/Area] 35 mL/min/{1.73_m2} Low >=60 [facility] Fecal occult blood detection by immunochemistryOrdered By: Liliana Kaba on 08-14-2023 Hemoglobin.gastrointestin al Ql (Stl) [facility] Ferritin [Mass/volume] in Se rum or PlasmaOrdered By: Liliana Kaba on 08-14-2023 Ferritin [Mass/Vol] 116.6 ng/mL Normal 11.0-306.8 [facility] Comment on above: Performed By: #### C BC, TIBC, RADHA, [id number], FE, CMP #### [facility] [address] Folate [Mass/volume] in Seru m or PlasmaOrdered By: Liliana Kaba on 08-14-2023 Folate [Mass/Vol] 27.0 ng/mL >5.9 [facility] Comment on above: Folate reference ran ge: >5.9 ng/mlThe WHO technical consultation on folate and vitamin [id number] has determined that folate concentrations lessthan 4 ng/ml are considered deficient. Glucose [Mass/volume] in Ser um or PlasmaOrdered By: PROVIDER TEMP on 08-14-2023 Glucose [Mass/Vol] 94 mg/dL Normal 70-100 [facility] Comment on above: ADA recommended refe rence rangeRandom Glucose Reference Range is dependent on time and content of last meal. Glucose of more than 200 mg/dL in a nonstressed, ambulatory subject supports the diagnosis of Diabetes Mellitus. Result Comment: [place] om Glucose Reference Range is dependent on time and content of last meal. Glucose of more than 200 mg/dL in a nonstressed, ambulatory subject supports the diagnosis of Diabetes Mellitus. ADA recommended reference range Performed By: #### C BC, TIBC, RADHA, [id number], FE, CMP #### [facility] [address] [place] [address] Hematocrit Auto (Bld) [Volum e fraction]on 08-14-2023 Hematocrit (Bld) [Volume fraction] 23.4 % Low 36.0-48.0 [facility] Comment on above: RESULTS CALLED TO [facility] Hematocrit [Volume Fraction] of Blood by Automated countOrdered By: PROVIDER TEMP on 08-14-2023 Hematocrit (Bld) [Volume fraction] 22.9 % Low 34.0-46.4 [facility] Comment on above: Performed By: #### C BC, TIBC, RADHA, [id number], FE, CMP #### [facility] [address] [place] [id number] [place] Hemoglobin [Mass/volume] in BloodOrdered By: PROVIDER TEMP on 08-14-2023 Hemoglobin (Bld) [Mass/Vol] 7.7 g/dL Low 11.8-15.4 [facility] Comment on above: Performed By: #### C BC, TIBC, RADHA, [id number], FE, CMP #### [facility] [address] [place] [id number] [place] Hemoglobin [Mass/volume] in Bloodon 08-14-2023 Hemoglobin (Bld) [Mass/Vol] 7.2 g/dL Low 12.0-16.0 [facility] Iron [Mass/volume] in Serum or PlasmaOrdered By: Liliana Kaba on 08-14-2023 Iron [Mass/Vol] 29 ug/dL Low 50-212 [facility] Comment on above: Performed By: #### C BC, TIBC, RADHA, [id number], FE, CMP #### [facility] [address] Iron binding capacity [Mass/ volume] in Serum or PlasmaOrdered By: Liliana Kaba on 08-14-2023 Iron binding capacity [Mass/Vol] 272 ug/dL 255-450 [facility] Iron binding capacity [Mass/ volume] in Serum or Plasmaon 08-14-2023 Iron binding capacity [Mass/Vol] 241.0 ug/dL Low 250.0-450.0 [facility] Iron saturation [Mass Fracti on] in Serum or Plasmaon 08-14-2023 Iron saturation [Mass fraction] 13.3 % [facility] Laboratory - Chemistry and C hemistry - challengeon 08-14-2023 Albumin [Mass/Vol] 3.6 g/dL 3.4-5.0 [facility] Calcium [Mass/Vol] 8.4 mg/dL Low 8.5-10.1 [facility] Chloride [Moles/Vol] 101 mmol/L 98-107 [facility] CO2 [Moles/Vol] 23.8 mmol/L 21.0-32.0 [facility] Creatinine [Mass/Vol] 1.47 mg/dL High 0.55-1.02 [facility] Ferritin [Mass/Vol] 154.0 ng/mL 8.0-252.0 [facility] GFR/1.73 sq M.predicted MDRD (S/P/Bld) [Vol rate/Area] 42 mL/min/{1.73_m2} Low >=60 [facility] Glucose [Mass/Vol] 98 mg/dL 74-106 [facility] Iron [Mass/Vol] 32.0 ug/dL Low 50.0-170.0 [facility] Potassium [Moles/Vol] 5.3 mmol/L High 3.5-5.1 [facility] Sodium [Moles/Vol] 134 mmol/L Low 136-145 [facility] Urea nitrogen [Mass/Vol] 30.0 mg/dL High 7.0-18.0 [facility] Urea nitrogen/Creatinine [Mass ratio] 20.4 mg/mg [facility] LeukoReduced RBCon LeukoReduced RBC TRANSFUSED 08/14/23 2303 Normal [facility] Leukocytes [#/volume] correc azul for nucleated erythrocytes in Blood by Automated counOrdered By: PROVIDER TEMP on 08-14-2023 WBC corrected for nucl RBC Auto (Bld) [#/Vol] 7.7 10*3/uL 3.8-11.6 [facility] Leukocytes [#/volume] correc azul for nucleated erythrocytes in Blood by Automated counon 08-14-2023 WBC corrected for nucl RBC Auto (Bld) [#/Vol] 6.0 10 3/uL 4.0-11.0 [facility] Leukocytes [#/volume] in Blo od by Automated countOrdered By: PROVIDER TEMP on 08-14-2023 WBC (Bld) [#/Vol] 7.7 10*3/uL Normal 3.8-11.6 [facility] Comment on above: Performed By: #### C BC, TIBC, RADHA, [id number], FE, CMP #### [facility] [address] [place] [address] [place] Lymphocytes [#/volume] in Bl ood by Automated countOrdered By: PROVIDER TEMP on 08-14-2023 Lymphocytes (Bld) [#/Vol] 1.5 10*3/uL Normal 1.00-4.8 [facility] Comment on above: Performed By: #### C BC, TIBC, RADHA, [id number], FE, CMP #### [facility] [address] [place] [id number] [place] Lymphocytes/100 leukocytes i n Blood by Automated countOrdered By: PROVIDER TEMP on 08-14-2023 Lymphocytes/100 WBC (Bld) 19.2 % Normal . [facility] Comment on above: Performed By: #### C BC, TIBC, RADHA, [id number], FE, CMP #### [facility] [address] MCH Auto (RBC) [Entitic mass ]on 08-14-2023 MCH (RBC) [Entitic mass] 28.9 pg 26.7-34.0 [facility] MCH [Entitic mass] by Automa azul countOrdered By: PROVIDER TEMP on 08-14-2023 MCH (RBC) [Entitic mass] 29.9 pg Normal 24.7-34.3 [facility] Comment on above: Performed By: #### C BC, TIBC, RADHA, [id number], FE, CMP #### [facility] [address] MCHC Auto (RBC) [Mass/Vol]Or dered By: PROVIDER TEMP on 08-14-2023 MCHC (RBC) [Mass/Vol] 33.6 g/dL 32.0-35.0 [facility] MCHC Auto (RBC) [Mass/Vol]on 08-14-2023 MCHC (RBC) [Mass/Vol] 30.8 g/dL 29.9-35.2 [facility] MCV Auto (RBC) [Entitic vol] on 08-14-2023 MCV (RBC) [Entitic vol] 94.0 fL 81.0-99.0 [facility] MCV [Entitic volume] by Auto mated countOrdered By: PROVIDER TEMP on 08-14-2023 MCV (RBC) [Entitic vol] 89.1 fL Normal 80-100 [facility] Comment on above: Performed By: #### C BC, TIBC, RADHA, [id number], FE, CMP #### [facility] [address] Monocyte distribution width [Entitic volume] in Blood by AutomatedOrdered By: PROVIDER TEMP on 08-14-2023 Monocyte distribution width Auto (Bld) [Entitic vol] 15.64 % 0.00-20.00 [facility] Neutrophils [#/volume] in Bl ood by Automated countOrdered By: PROVIDER TEMP on 08-14-2023 Neutrophils (Bld) [#/Vol] 5.4 10*3/uL Normal 1.8-7.7 [facility] Comment on above: Performed By: #### C BC, TIBC, RADHA, [id number], FE, CMP #### [facility] [address] No Panel InformationOrdered By: PROVIDER TEMP on 08-14-2023 Estimated GFR (CKD-EPI) 38.248 mL/Min [facility] Creatinine Clearance (Chem 33.40 [facility] No Panel Informationon 08-13 Phosphorus Level 4.3 mg/dL 2.6-4.7 [facility] Nucleated erythrocytes [Pres ence] in Blood by Automated countOrdered By: PROVIDER TEMP on 08-14-2023 Nucleated RBC Auto Ql (Bld) 0.1 /100{WBC} 0-0.5 [facility] Platelet mean volume Auto (B ld) [Entitic vol]on 08-14-2023 Platelet mean volume (Bld) [Entitic vol] 10.0 fL 9.5-13.5 [facility] Platelet mean volume [Entiti c volume] in Blood by Automated countOrdered By: PROVIDER TEMP on 08-14-2023 Platelet mean volume (Bld) [Entitic vol] 8.3 fL Normal 6.3-10.7 [facility] Comment on above: Performed By: #### C BC, TIBC, RADHA, [id number], FE, CMP #### [facility] [address] [place] [address] Platelets Auto (Bld) [#/Vol] on 08-14-2023 Platelets (Bld) [#/Vol] 290 10 3/uL 150-450 [facility] Platelets [#/volume] in Bloo d by Automated countOrdered By: PROVIDER TEMP on 08-14-2023 Platelets (Bld) [#/Vol] 291 10*3/uL Normal 150-450 [facility] Comment on above: Performed By: #### C BC, TIBC, RADHA, [id number], FE, CMP #### [address] Potassium [Moles/volume] in Serum or PlasmaOrdered By: PROVIDER TEMP on 08-14-2023 Potassium [Moles/Vol] 5.1 mmol/L Normal 3.5-5.1 [facility] Comment on above: Performed By: #### C BC, TIBC, RADHA, [id number], FE, CMP #### [address] Protein [Mass/volume] in Ser um or PlasmaOrdered By: Liliana Kaba on 08-14-2023 Protein [Mass/Vol] 7.2 g/dL Normal 6.4-8.9 [facility] Comment on above: Performed By: #### C BC, TIBC, RADHA, [id number], FE, CMP #### [address] RBC Auto (Bld) [#/Vol]on RBC (Bld) [#/Vol] 2.49 10 6/uL Low 4.20-5.40 [facility] Serum globulin measurement b y calculation (mass/volume)Ordered By: Liliana Kaba on 08-14-2023 Globulin (S) [Mass/Vol] 2.7 g/dL Normal [facility] Comment on above: Performed By: #### C BC, TIBC, RADHA, [id number], FE, CMP #### [address] Serum or plasma albumin/glob ulin mass ratioOrdered By: Liliana Kaba on 08-14-2023 Albumin/Globulin [Mass ratio] 1.7 {ratio} Normal [facility] Comment on above: Performed By: #### C BC, TIBC, RADHA, [id number], FE, CMP #### [address] Serum or plasma anion gap de terminationOrdered By: PROVIDER TEMP on 08-14-2023 Anion gap [Moles/Vol] 12.4 mmol/L Normal 6.0-15.0 [facility] Comment on above: Performed By: #### C BC, TIBC, RADHA, [id number], FE, CMP #### [address] Serum or plasma anion gap de terminationon 08-14-2023 Anion gap [Moles/Vol] 14.5 mmol/L [facility] Sodium [Moles/volume] in Ser um or PlasmaOrdered By: PROVIDER TEMP on 08-14-2023 Sodium [Moles/Vol] 131 mmol/L Low 136-145 [facility] Comment on above: Performed By: #### C BC, TIBC, RADHA, [id number], FE, CMP #### [address] Stool Occult Blood (Guaiac)o n 08-14-2023 Stool Occult Blood (Guaiac) Occult Blood Positive for Occult Blood by Guaiac Methodology Reference range = Negative PERFORMED BY: [place] [address] PATHOLOGIST WAIST FITTER LATONIA BRAND M.D. Normal [facility] Comment on above: Performed By: #### C BC, TIBC, RADHA, [id number], FE, CMP #### [address] Total Iron Binding Capacityo n 08-14-2023 Total Iron Binding Capacity 272 ug/dL Normal 255-450 [facility] Comment on above: Performed By: #### C BC, TIBC, RADHA, [id number], FE, CMP #### [address] Transferrin [Mass/volume] in Serum or PlasmaOrdered By: Liliana Kaba on 08-14-2023 Transferrin [Mass/Vol] 194 mg/dL Low 203-362 [facility] Comment on above: Performed By: #### C BC, TIBC, RADHA, [id number], FE, CMP #### [facility] [address] [place] [address] Type and Screenon 08-14-2023 ABO and Rh group Nom (Bld) Blood group A Rh(D) negative Normal [facility] Comment on above: Order Comment: Trans fuse now? Y Number of units to transfuse now? 1 Result Comment: PERF ORMED BY: [place] [address] PATHOLOGIST WAIST FITTER LATONIA BRAND M.D. Urea nitrogen [Mass/volume] in Serum or PlasmaOrdered By: MONSTER TEMSarah on 08-14-2023 Urea nitrogen [Mass/Vol] 31 mg/dL High 7-25 [facility] Comment on above: Performed By: #### C BC, TIBC, RADHA, [id number], FE, CMP #### [address] Vit. B12/Folate Profileon Folate 27.0 ng/mL Normal >5.9 [facility] Comment on above: Result Comment: Audra te reference range: >5.9 ng/ml The WHO technical consultation on folate and vitamin b12 deficiencies has determined that folate concentrations less than 4 ng/ml are considered deficient. PERFORMED BY: [place] [address] PATHOLOGIST WAIST FITTER LATNOIA BRAND M.D. Performed By: #### C BC, TIBC, RADHA, [id number], FE, CMP #### [place] [id number] [place] Vitamin B12 ser/plasOrdered By: Liliana Kaba on 08-14-2023 Cobalamin (Vitamin B12) [Mass/Vol] 457 pg/mL Normal 180-914 [facility] Comment on above: Performed By: #### C BC, TIBC, RADHA, [id number], FE, CMP #### [facility] [address] [place], [place] [id number] [place] BASIC METABOLIC PANLon 07-19 Anion gap [Moles/Vol] 10 mmol/L Normal 5-15 [facility] Comment on above: Performed By: #### C BCA, BMP, LIVR, 88135-2, 3016-3, 75802-5 #### [facility] ([id number]) [address], [address] [place] [address] Calcium [Mass/Vol] 9.3 mg/dL Normal 8.5-10.5 [facility] Comment on above: Performed By: #### C BCA, BMP, LIVR, 40437-8, 3016-3, 46063-6 #### [facility] ([id number]) [address], [address] [place] [address] Chloride [Moles/Vol] 107 mmol/L Normal 98-109 [facility] Comment on above: Performed By: #### C BCA, BMP, LIVR, 42998-2, 3016-3, 79969-5 #### [facility] ([id number]) [address], [address] [place] [address] CO2 [Moles/Vol] 22 mmol/L Normal 22-32 [facility] Comment on above: Performed By: #### C BCA, BMP, LIVR, 55805-6, 3016-3, 39292-9 #### [facility] ([id number]) [address], [address] [place] [address] Creatinine [Mass/Vol] 1.38 mg/dL High 0.40-1.00 [facility] Comment on above: Result Comment: METH OD TRACEABLE TO IDMS STANDARD Performed By: #### C BCA, BMP, LIVR, 04602-7, 3016-3, 19428-3 #### [facility] ([id number]) [address], [address] [place] [address] GFR/1.73 sq M.predicted among non-blacks MDRD (S/P/Bld) [Vol rate/Area] 40 mL/min/{1.73_m2} Low >59 [facility] Comment on above: Result Comment: Reported eGFR is based on the CKD-EPI 2020 equation that does not use a race coefficient. Performed By: #### C BCA, BMP, LIVR, 27291-5, 3016-3, 21327-6 #### [facility] ([id number]) [address], [address] [place] [address] Glucose [Mass/Vol] 144 mg/dL High 65-99 [facility] Comment on above: Performed By: #### C BCA, BMP, LIVR, 61706-0, 3016-3, 41951-4 #### [facility] ([id number]) [address], [address] [place] [address] Potassium [Moles/Vol] 5.3 mmol/L High 3.5-5.0 [facility] Comment on above: Performed By: #### C BCA, BMP, LIVR, 93518-4, 3016-3, 45556-0 #### [facility] ([id number]) [address], [address] [place] [address] Sodium [Moles/Vol] 139 mmol/L Normal 134-146 [facility] Comment on above: Performed By: #### C BCA, BMP, LIVR, 79579-3, 3016-3, 45057-5 #### [facility] ([id number]) [address], [address] [place] [address] Urea nitrogen [Mass/Vol] 22 mg/dL Normal 5-27 [facility] Comment on above: Performed By: #### C BCA, BMP, LIVR, 32901-9, 3016-3, 06228-8 #### [facility] ([id number]) [address], [address] [place] [address] BASIC METABOLIC PANLon 07-18 Anion gap [Moles/Vol] 10 mmol/L Normal 5-15 [facility] Comment on above: Performed By: #### C BCA, BMP, LIVR, 15245-0, 3016-3, 42486-4 #### [facility] ([id number]) [address], [address] [place] [address] Calcium [Mass/Vol] 9.0 mg/dL Normal 8.5-10.5 [facility] Comment on above: Performed By: #### C BCA, BMP, LIVR, 70368-2, 3016-3, 84152-4 #### [facility] ([id number]) [address], [address] [place] [address] Chloride [Moles/Vol] 108 mmol/L Normal 98-109 [facility] Comment on above: Performed By: #### C BCA, BMP, LIVR, 67195-9, 3016-3, 02640-8 #### [facility] ([id number]) [address], [address] [place] [address] CO2 [Moles/Vol] 23 mmol/L Normal 22-32 [facility] Comment on above: Performed By: #### C BCA, BMP, LIVR, 57512-6, 3016-3, 22698-7 #### [facility] ([id number]) [address], [address] [place] [address] Creatinine [Mass/Vol] 1.60 mg/dL High 0.40-1.00 [facility] Comment on above: Result Comment: METH OD TRACEABLE TO IDMS STANDARD Performed By: #### C BCA, BMP, LIVR, 53959-8, 3016-3, 96600-8 #### [facility] ([id number]) [address], [address] [place] [address] GFR/1.73 sq M.predicted among non-blacks MDRD (S/P/Bld) [Vol rate/Area] 33 mL/min/{1.73_m2} Low >59 Pr [facility] Comment on above: Result Comment: Reported eGFR is based on the CKD-EPI 2020 equation that does not use a race coefficient. Performed By: #### C BCA, BMP, LIVR, 23102-0, 3016-3, 09635-2 #### [facility] ([id number]) [address], [address] [place] [address] Glucose [Mass/Vol] 135 mg/dL High 65-99 [facility] Comment on above: Performed By: #### C BCA, BMP, LIVR, 79709-9, 3016-3, 79829-1 #### [facility] ([id number]) [address], [address] [place] [address] Potassium [Moles/Vol] 4.8 mmol/L Normal 3.5-5.0 [facility] Comment on above: Performed By: #### C BCA, BMP, LIVR, 68311-9, 3016-3, 26573-7 #### [facility] ([id number]) [address], [address] [place] [address] Sodium [Moles/Vol] 141 mmol/L Normal 134-146 [facility] Comment on above: Performed By: #### C BCA, BMP, LIVR, 47482-0, 3016-3, 24092-8 #### [facility] ([id number]) [address], [address] [place] [address] Urea nitrogen [Mass/Vol] 27 mg/dL Normal 5-27 [facility] Comment on above: Performed By: #### C BCA, BMP, LIVR, 36291-6, 3016-3, 45680-6 #### [facility] ([id number]) [address], [address] [place] [address] MAGNESIUMon 07-19-2023 Magnesium [Mass/Vol] 2.1 mg/dL Normal 1.8-2.6 [facility] Comment on above: Performed By: #### C BCA, BMP, LIVR, 51972-5, 3016-3, 79087-7 #### [facility] ([id number]) [address] [place] [address] Natriuretic peptide B [Mass/ Vol]on 07-19-2023 Natriuretic peptide B (Bld) [Mass/Vol] 156 pg/mL High <100.0 [facility] Comment on above: Performed By: #### C BCA, BMP, LIVR, 80267-9, 3016-3, 40219-5 #### [facility] ([id number]) [address], [address] [place] [address] POTASSIUMon 07-19-2023 Potassium [Moles/Vol] 4.7 mmol/L Normal 3.5-5.0 [facility] Comment on above: Performed By: #### C BCA, BMP, LIVR, 23542-7, 3016-3, 49727-6 #### [facility] ([id number]) [address], [address] [place] [address] Troponin I.cardiac High sens itivity method [Mass/Vol]on 07-19-2023 1 HOUR TROP I, HIGH SENSITIVITY 4 ng/L Normal <16 [facility] Comment on above: Performed By: #### C BCA, BMP, LIVR, 71454-4, 6-3, 33547-3 #### [facility] ([id number]) [address], [address] [place] [address] TROPONIN I, HIGH SENSITIVITY 4 ng/L Normal <16 [facility] Comment on above: Performed By: #### C BCA, BMP, LIVR, 71953-7, 3016-3, 37381-4 #### [facility] ([id number]) [address], [address] [place] [address] XR KNEE RT 1 OR 2 VWSon [...] Ngo MD on 07/19/2023 12:[address] [facility] Erythrocyte distribution wid th Auto (RBC) [Ratio]on 07-06-2023 Erythrocyte distribution width (RBC) [Ratio] 13.2 % 11.0-15.0 [facility] Estimated glomerular filtrat ion rate (GFR) non- Americanon 07-06-2023 GFR/1.73 sq M.predicted among non-blacks MDRD (S/P/Bld) [Vol rate/Area] 34 mL/min/{1.73_m2} Low >=60 Fi [facility] Hematocrit Auto (Bld) [Volum e fraction]on 07-06-2023 Hematocrit (Bld) [Volume fraction] 30.0 % Low 36.0-48.0 [facility] Hemoglobin [Mass/volume] in Bloodon 07-06-2023 Hemoglobin (Bld) [Mass/Vol] 9.5 g/dL Low 12.0-16.0 [facility] Iron binding capacity [Mass/ volume] in Serum or Plasmaon 07-06-2023 Iron binding capacity [Mass/Vol] 250.0 ug/dL 250.0-450.0 [facility] Iron saturation [Mass Fracti on] in Serum or Plasmaon 07-06-2023 Iron saturation [Mass fraction] 26.8 % [facility] Laboratory - Chemistry and C hemistry - challengeon 07-06-2023 Albumin [Mass/Vol] 4.3 g/dL 3.4-5.0 [facility] Calcium [Mass/Vol] 9.5 mg/dL 8.5-10.1 [facility] Chloride [Moles/Vol] 105 mmol/L 98-107 [facility] CO2 [Moles/Vol] 25.2 mmol/L 21.0-32.0 [facility] Creatinine [Mass/Vol] 1.49 mg/dL High 0.55-1.02 [facility] Ferritin [Mass/Vol] 172.0 ng/mL 8.0-252.0 [facility] GFR/1.73 sq M.predicted MDRD (S/P/Bld) [Vol rate/Area] 41 mL/min/{1.73_m2} Low >=60 [facility] Glucose [Mass/Vol] 107 mg/dL High 74-106 [facility] Iron [Mass/Vol] 67.0 ug/dL 50.0-170.0 [facility] Magnesium [Mass/Vol] 2.1 mg/dL 1.8-2.4 [facility] Potassium [Moles/Vol] 5.6 mmol/L High 3.5-5.1 [facility] Sodium [Moles/Vol] 139 mmol/L 136-145 [facility] Urate [Mass/Vol] 6.9 mg/dL High 2.6-6.0 [facility] Urea nitrogen [Mass/Vol] 25.0 mg/dL High 7.0-18.0 [facility] Urea nitrogen/Creatinine [Mass ratio] 16.8 mg/mg [facility] Laboratory - Urinalysison Protein (U) [Mass/Vol] 6.8 mg/dL <=11.9 [facility] Leukocytes [#/volume] correc azul for nucleated erythrocytes in Blood by Automated counon 07-06-2023 WBC corrected for nucl RBC Auto (Bld) [#/Vol] 6.4 10 3/uL 4.0-11.0 [facility] MCH Auto (RBC) [Entitic mass ]on 07-06-2023 MCH (RBC) [Entitic mass] 30.3 pg 26.7-34.0 [facility] MCHC Auto (RBC) [Mass/Vol]on 07-06-2023 MCHC (RBC) [Mass/Vol] 31.7 g/dL 29.9-35.2 [facility] MCV Auto (RBC) [Entitic vol] on 07-06-2023 MCV (RBC) [Entitic vol] 95.5 fL 81.0-99.0 F [facility] No Panel Informationon 07-05 25-Hydroxy Vitamin D Total 57.7 ng/mL [facility] Comment on above: <20 ng/mL Vit D defi cient20-<30 ng/mL Vit D -688 ng/mL Vit D sufficient>100 ng/mL Potential Toxicity Parathyroid Hormone (Intact) 81 pg/mL Abnormal 15-65 [facility] Comment on above: Performed at: - L abcAGRIMAPS [address] [id number] Director: Tavon Arevalo PhD, Phone: [phone] Phosphorus Level 4.0 mg/dL 2.6-4.7 [facility] Urine Random Creatinine 65.39 mg/dL 20.0 0-300.0 0 [facility] Platelet mean volume Auto (B ld) [Entitic vol]on 07-06-2023 Platelet mean volume (Bld) [Entitic vol] 10.3 fL 9.5-13.5 [facility] Platelets Auto (Bld) [#/Vol] on 07-06-2023 Platelets (Bld) [#/Vol] 241 10 3/uL 150-450 [facility] RBC Auto (Bld) [#/Vol]on RBC (Bld) [#/Vol] 3.14 10 6/uL Low 4.20-5.40 [facility] Serum or plasma anion gap de terminationon 07-06-2023 Anion gap [Moles/Vol] 14.4 mmol/L Fi [facility] Urine protein/creatinine rat ioon 07-06-2023 Protein/Creatinine (U) [Ratio] 0.10 [facility] BASIC METABOLIC PANLon 06-21 Anion gap [Moles/Vol] 11 mmol/L Normal 5-15 [facility] Comment on above: Performed By: #### C BCA, BMP, LIVR, 54728-0, 3016-3, 09876-6 #### [facility] ([id number]) [address] [place] [address] Calcium [Mass/Vol] 9.5 mg/dL Normal 8.5-10.5 [facility] Comment on above: Performed By: #### C BCA, BMP, LIVR, 27671-2, 3016-3, 03335-5 #### [facility] ([id number]) [address], [address] [place] [address] Chloride [Moles/Vol] 106 mmol/L Normal 98-109 [facility] Comment on above: Performed By: #### C BCA, BMP, LIVR, 19143-7, 3016-3, 64066-6 #### [facility] ([id number]) [address], [address] [place] [address] CO2 [Moles/Vol] 24 mmol/L Normal 22-32 [facility] Comment on above: Performed By: #### C BCA, BMP, LIVR, 10331-6, 3016-3, 52834-2 #### [facility] ([id number]) [address], [address] [place] [address] Creatinine [Mass/Vol] 1.48 mg/dL High 0.40-1.00 [facility] Comment on above: Result Comment: METH OD TRACEABLE TO IDMS STANDARD Performed By: #### C BCA, BMP, LIVR, 05448-2, 3016-3, 95056-2 #### [facility] ([id number]) [address], [address] [place] [address] GFR/1.73 sq M.predicted among non-blacks MDRD (S/P/Bld) [Vol rate/Area] 37 mL/min/{1.73_m2} Low >59 Pr [facility] Comment on above: Result Comment: Reported eGFR is based on the CKD-EPI 2020 equation that does not use a race coefficient. Performed By: #### C BCA, BMP, LIVR, 39091-0, 3016-3, 84744-6 #### [facility] ([id number]) [address], [address] [place] [address] Glucose [Mass/Vol] 99 mg/dL Normal 65-99 [facility] Comment on above: Performed By: #### C BCA, BMP, LIVR, 42979-1, 3016-3, 86288-7 #### [facility] ([id number]) [address], [address] [place] [address] Potassium [Moles/Vol] 5.5 mmol/L High 3.5-5.0 [facility] Comment on above: Performed By: #### C BCA, BMP, LIVR, 64088-5, 3016-3, 96942-3 #### [facility] ([id number]) [address], [address] [place] [address] Sodium [Moles/Vol] 141 mmol/L Normal 134-146 [facility] Comment on above: Performed By: #### C BCA, BMP, LIVR, 99321-7, 3016-3, 35795-1 #### [facility] ([id number]) [address], [address] [place] [address] Urea nitrogen [Mass/Vol] 25 mg/dL Normal 5-27 [facility] Comment on above: Performed By: #### C BCA, BMP, LIVR, 95105-1, 3016-3, 79318-7 #### [facility] ([id number]) [address], [address] [place] [address] CBC AND AUTO DIFFon 04-18-20 24 ABSOLUTE BASOPHIL 0.0 X10E9/L Normal 0.0-0.2 [facility] Comment on above: Performed By: #### C BCA, BMP, PINR #### [facility] ([id number]) [address], [address] [place] [address] ABSOLUTE NEUTROPHIL 4.4 X10E9/L Normal 1.5-6.6 [facility] Comment on above: Performed By: #### C BCA, BMP, PINR #### [facility] ([id number]) [address], [address] [place] [address] Basophils/100 WBC (Bld) 0.4 % Normal [facility] Comment on above: Performed By: #### C BCA, BMP, PINR #### [facility] ([id number]) [address], [address] [place] [address] Eosinophils (Bld) [#/Vol] 0.1 10*3/uL Normal 0.0-0.4 [facility] Comment on above: Performed By: #### C BCA, BMP, PINR #### [facility] ([id number]) [address], [address] [place] [address] Eosinophils/100 WBC (Bld) 1.3 % Normal [facility] Comment on above: Performed By: #### C BCA, BMP, PINR #### [facility] ([id number]) [address], [facility] [address] [place] [address] Erythrocyte distribution width (RBC) [Ratio] 14.0 % Normal 11.5-15.0 [facility] Comment on above: Performed By: #### C BCA, BMP, PINR #### [facility] ([id number]) [address], [facility] [address] [place] [address] Hematocrit (Bld) [Volume fraction] 28.8 % Low 35-47 [facility] Comment on above: Performed By: #### C BCA, BMP, PINR #### [facility] ([id number]) [address] [address] [place] [address] Hemoglobin (Bld) [Mass/Vol] 9.9 g/dL Low 11.7-15.5 [facility] Comment on above: Performed By: #### C BCA, BMP, PINR #### [facility] ([id number]) [address], [address] [place] [address] Lymphocytes (Bld) [#/Vol] 0.9 10*3/uL Low 1.0-3.5 [facility] Comment on above: Performed By: #### C RADHA BMP, PINR #### [facility] ([id number]) [address], [address] [place] [address] Lymphocytes/100 WBC (Bld) 16.5 % Normal [facility] Comment on above: Performed By: #### C RADHA, BMP, PINR #### [facility] ([id number]) [address], [address] [place] [address] MCH (RBC) [Entitic mass] 31.3 pg Normal 27-34 [facility] Comment on above: Performed By: #### C RADHA, TERI, PINR #### [facility] ([id number]) [address], [address] [place] [address] MCHC (RBC) [Mass/Vol] 34.4 g/dL Normal 32-36 [facility] Comment on above: Performed By: #### C RADHA, BMP, PINR #### [facility] ([id number]) [address], [address] [place] [address] MCV (RBC) [Entitic vol] 91 fL Normal 80-100 P [facility] Comment on above: Performed By: #### C RADHA, BMP, PINR #### [facility] ([id number]) [address], [address] [place] [address] Monocytes (Bld) [#/Vol] 0.3 10*3/uL Normal 0-0.9 [facility] Comment on above: Performed By: #### C RADHA, BMP, PINR #### [facility] ([id number]) [address], [address] [place] [address] Monocytes/100 WBC (Bld) 4.7 % Normal P [facility] Comment on above: Performed By: #### C RADHA, BMP, PINR #### [facility] ([id number]) [address], [address] [place] [address] Neutrophils/100 WBC (Bld) 77.1 % Normal [facility] Comment on above: Performed By: #### C RADHA, BMP, PINR #### [facility] ([id number]) [address], [address] [place] [address] Platelet mean volume (Bld) [Entitic vol] 9.4 fL Normal 7-12 [facility] Comment on above: Performed By: #### C TERI GARCIA, PINR #### [facility] ([id number]) [address], [address] [place] [address] Platelets (Bld) [#/Vol] 219 10*3/uL Normal 150-450 [facility] Comment on above: Performed By: #### C RADHA, BMP, PINR #### [facility] ([id number]) [address], [address] [place] [address] RBC COUNT 3.17 X10E12/L Low 3.80-5.20 [facility] Comment on above: Performed By: #### C RADHA, BMP, PINR #### [facility] ([id number]) [address], [address] [place] [address] WBC (Bld) [#/Vol] 5.7 10*3/uL Normal 4.0-11.0 [facility] Comment on above: Performed By: #### C RADHA, BMP, PINR #### [facility] ([id number]) [address], [address] [place] [address] HGB A1C (GLYCO-HGB)on 2023 Glucose [Mass/Vol] 117 mg/dL Normal [facility] Comment on above: Performed By: #### C BCA, BMP, LIVR, 52916-6, 3016-3, 70843-7 #### [facility] ([id number]) [address], [address] [place] [address] HbA1c (Bld) [Mass fraction] 5.7 % High 4.4-5.6 [facility] Comment on above: Result Comment: NOTE ADA Guidelines Result HgbA1c Normal : less than 5.7 % Prediabetes : 5.7 % to 6.4 % Diabetes : > 6.4 % Use with caution in patients with abnormal hemoglobin variants as the half-life of red blood cells and in vivo glycation rates are affected. Performed By: #### C BCA, BMP, LIVR, 14589-0, 6-3, 51743-4 #### [facility] ([id number]) [address], [address] [place] [address] PROTIME AND INRon 06-22-2023 INR Coag (PPP) [Relative time] 1.0 {INR} Normal 0.8-1.1 [facility] Comment on above: Performed By: #### C BCA, BMP, LIVR, 51167-1, 6-3, 82407-1 #### [facility] ([id number]) [address], [address] [place] [address] PT Coag (PPP) [Time] 11.1 s Normal 9.8-13.2 [facility] Comment on above: Performed By: #### C BCA, BMP, LIVR, 22131-1, 3016-3, 57797-0 #### [facility] ([id number]) [address], [address] [place] [address] BASIC METABOLIC PANLon 04-19 Anion gap [Moles/Vol] 9 mmol/L Normal 5-15 [facility] Comment on above: Performed By: #### C BCA, BMP, LIVR, 95271-1, 3016-3, 88143-9 #### [facility] ([id number]) [address], [address] [place] [address] Calcium [Mass/Vol] 9.5 mg/dL Normal 8.5-10.5 [facility] Comment on above: Performed By: #### C BCA, BMP, LIVR, 81795-3, 3016-3, 72761-4 #### [facility] ([id number]) [address], [address] [place] [address] Chloride [Moles/Vol] 105 mmol/L Normal 98-109 [facility] Comment on above: Performed By: #### C BCA, BMP, LIVR, 15522-0, 3016-3, 59856-9 #### [facility] ([id number]) [address], [address] [place] [address] CO2 [Moles/Vol] 26 mmol/L Normal 22-32 [facility] Comment on above: Performed By: #### C BCA, BMP, LIVR, 10778-6, 3016-3, 21529-0 #### [facility] ([id number]) [address], [address] [place] [address] Creatinine [Mass/Vol] 1.43 mg/dL High 0.40-1.00 [facility] Comment on above: Result Comment: METH OD TRACEABLE TO IDMS STANDARD Performed By: #### C BCA, BMP, LIVR, 66213-6, 3016-3, 77609-8 #### [facility] ([id number]) [address] [place] [address] GFR/1.73 sq M.predicted among non-blacks MDRD (S/P/Bld) [Vol rate/Area] 38 mL/min/{1.73_m2} Low >59 Pr [facility] Comment on above: Result Comment: Reported eGFR is based on the CKD-EPI 2021 equation that does not use a race coefficient. Performed By: #### C BCA, BMP, LIVR, 48286-7, 3016-3, 37888-2 #### [facility] ([id number]) [address] [address] [place] [address] Glucose [Mass/Vol] 97 mg/dL Normal 65-99 [facility] Comment on above: Performed By: #### C BCA, BMP, LIVR, 14853-4, 3016-3, 43176-3 #### [facility] ([id number]) [address] [address] [place] [address] Potassium [Moles/Vol] 5.2 mmol/L High 3.5-5.0 [facility] Comment on above: Performed By: #### C BCA, BMP, LIVR, 01448-0, 3016-3, 28098-5 #### [facility] ([id number]) [address] [address] [place] [address] Sodium [Moles/Vol] 140 mmol/L Normal 134-146 [facility] Comment on above: Performed By: #### C BCA, BMP, LIVR, 19612-1, 3016-3, 96923-0 #### [facility] ([id number]) [address] [address] [place] [address] Urea nitrogen [Mass/Vol] 28 mg/dL High 5-27 [facility] Comment on above: Performed By: #### C BCA, BMP, LIVR, 03627-2, 3016-3, 65773-1 #### [facility] ([id number]) [address] [address] [place] [address] Basic metabolic 1998 panelon 04-19-2023 Anion gap [Moles/Vol] 9 mmol/L 5 - 15 mmol/L [facility] Calcium [Mass/Vol] 9.5 mg/dL 8.5 - 10. 5 mg/dL [facility] Chloride [Moles/Vol] 105 mmol/L 98 - 10 9 mmol/L [facility] CO2 [Moles/Vol] 26 mmol/L 22 - 32 mmol/L [facility] Creatine [Mass/Vol] 1.43 mg/dL High 0.40 - 1 .00 mg/dL [facility] Comment on above: METHOD TRACEABLE TO IDIA STANDARD GFR/1.73 sq M.predicted among non-blacks MDRD (S/P/Bld) [Vol rate/Area] 38 mL/min/{1.73_m2} Low - PINF NO [facility] Comment on above: Reported eGFR is based on the CKD-EPI 2020 equation that does not use a race coefficient. PERFORMED AT [facility] [address] [address] Glucose [Mass/Vol] 97 mg/dL 65 - 99 mg/dL [facility] Potassium [Moles/Vol] 5.2 mmol/L High 3.5 - 5.0 mmol/L [facility] Sodium [Moles/Vol] 140 mmol/L 134 - 146 mmol/L [facility] Urea nitrogen [Mass/Vol] 28 mg/dL High 5 - 27 mg/dL [facility] CBC AND AUTO DIFFon 04-19-19 24 ABSOLUTE BASOPHIL 0.0 X10E9/L Normal 0.0-0.2 [facility] Comment on above: Performed By: #### C BCA, BMP, LIVR, 52234-6, 3016-3, 55732-3 #### [facility] ([id number]) [address], [address] [place] [address] ABSOLUTE NEUTROPHIL 3.4 X10E9/L Normal 1.5-6.6 [facility] Comment on above: Performed By: #### C BCA, BMP, LIVR, 57650-1, 3016-3, 23188-0 #### [facility] ([id number]) [address], [address] [place] [address] Basophils/100 WBC (Bld) 0.5 % Normal P [facility] Comment on above: Performed By: #### C BCA, BMP, LIVR, 22876-9, 3016-3, 41401-2 #### [facility] ([id number]) [address] [address] [place] [address] Eosinophils (Bld) [#/Vol] 0.2 10*3/uL Normal 0.0-0.4 [facility] Comment on above: Performed By: #### C BCA, BMP, LIVR, 01013-3, 3016-3, 29294-5 #### [facility] ([id number]) [address] [address] [place] [address] Eosinophils/100 WBC (Bld) 3.8 % Normal [facility] Comment on above: Performed By: #### C BCA, BMP, LIVR, 22257-6, 301-3, 27289-9 #### [facility] ([id number]) [address] [address] [place] [address] Erythrocyte distribution width (RBC) [Ratio] 15.4 % High 11.5-15.0 [facility] Comment on above: Performed By: #### C BCA, BMP, LIVR, 22270-4, 3016-3, 42975-3 #### [facility] ([id number]) [address] [address] [place] [address] Hematocrit (Bld) [Volume fraction] 32.5 % Low 35-47 [facility] Comment on above: Performed By: #### C BCA, BMP, LIVR, 72810-6, 3016-3, 16571-2 #### [facility] ([id number]) [address] [address] [place] [address] Hemoglobin (Bld) [Mass/Vol] 10.8 g/dL Low 11.7-15.5 [facility] Comment on above: Performed By: #### C BCA, BMP, LIVR, 42840-5, 3016-3, 25944-2 #### [facility] ([id number]) [address] [address] [place] [address] Lymphocytes (Bld) [#/Vol] 1.6 10*3/uL Normal 1.0-3.5 [facility] Comment on above: Performed By: #### C BCA, BMP, LIVR, 19704-6, 3016-3, 08597-5 #### [facility] ([id number]) [address] [address] [place] [address] Lymphocytes/100 WBC (Bld) 29.5 % Normal [facility] Comment on above: Performed By: #### C BCA, BMP, LIVR, 59231-4, 3016-3, 02661-8 #### [facility] ([id number]) [address] [address] [place] [address] MCH (RBC) [Entitic mass] 29.7 pg Normal 27-34 [facility] Comment on above: Performed By: #### C BCA, BMP, LIVR, 55221-1, 3016-3, 66130-8 #### [facility] ([id number]) [address] [address] [place] [address] MCHC (RBC) [Mass/Vol] 33.3 g/dL Normal 32-36 [facility] Comment on above: Performed By: #### C BCA, BMP, LIVR, 73652-6, 3016-3, 31154-1 #### [facility] ([id number]) [address] [facility] [address] [place] [address] MCV (RBC) [Entitic vol] 89 fL Normal 80-100 [facility] Comment on above: Performed By: #### C BCA, BMP, LIVR, 82674-5, 3016-3, 79653-2 #### [facility] ([id number]) [address] [address] [place] [address] Monocytes (Bld) [#/Vol] 0.3 10*3/uL Normal 0-0.9 [facility] Comment on above: Performed By: #### C BCA, BMP, LIVR, 26299-0, 3016-3, 92991-3 #### [facility] ([id number]) [address] [place] [address] Monocytes/100 WBC (Bld) 5.0 % Normal [facility] Comment on above: Performed By: #### C BCA, BMP, LIVR, 82204-0, 3016-3, 83796-5 #### [facility] ([id number]) [address], [facility] [address] [place] [address] Neutrophils/100 WBC (Bld) 61.2 % Normal [facility] Comment on above: Performed By: #### C BCA, BMP, LIVR, 33013-2, 3016-3, 19006-7 #### [facility] ([id number]) [address], [address] [place] [address] Platelet mean volume (Bld) [Entitic vol] 9.3 fL Normal 7-12 [facility] Comment on above: Performed By: #### C BCA, BMP, LIVR, 90490-7, 3016-3, 49385-4 #### [facility] ([id number]) [address], [facility] [address] [place] [address] Platelets (Bld) [#/Vol] 215 10*3/uL Normal 150-450 [facility] Comment on above: Performed By: #### C BCA, BMP, LIVR, 78102-1, 3016-3, 29846-4 #### [facility] ([id number]) [address] [address] [place] [address] RBC COUNT 3.64 X10E12/L Low 3.80-5.20 [facility] Comment on above: Performed By: #### C BCA, BMP, LIVR, 17154-6, 3016-3, 91036-5 #### [facility] ([id number]) [address], [address] [place] [address] WBC (Bld) [#/Vol] 5.6 10*3/uL Normal 4.0-11.0 [facility] Comment on above: Performed By: #### C BCA, BMP, LIVR, 17218-4, 3016-3, 95120-3 #### [facility] ([id number]) [address], [address] [place] [address] CBC W Auto Differential pane l (Bld)on 04-19-2023 ABSOLUTE BASOPHIL 0.0 [facility] Comment on above: PERFORMED AT [facility] [address],[place] [address] Basophils/100 WBC (Bld) 0.5 % N [facility] Eosinophils (Bld) [#/Vol] 0.2 10*3/uL [facility] Platelets (Bld) [#/Vol] 215 10*3/uL [facility] RBC (Bld) [#/Vol] 3.64 10*6/uL Low [facility] WBC corrected for nucl RBC Auto (Bld) [#/Vol] 5.6 [facility] HGB A1C (GLYCO-HGB)on 2023 Glucose [Mass/Vol] 128 mg/dL Normal [facility] Comment on above: Performed By: #### C BCA, BMP, LIVR, 74541-3, 3015-3, 60402-7 #### [facility] ([id number]) [address], [address] [place] [address] HbA1c (Bld) [Mass fraction] 6.1 % High 4.4-5.6 [facility] Comment on above: Result Comment: NOTE ADA Guidelines Result HgbA1c Normal : less than 5.7 % Prediabetes : 5.7 % to 6.4 % Diabetes : > 6.4 % Use with caution in patients with abnormal hemoglobin variants as the half-life of red blood cells and in vivo glycation rates are affected. Performed By: #### C BCA, BMP, LIVR, 24324-6, 3, 96500-7 #### [facility] ([id number]) [address], [address] [place] [address] LIVER PANELon 04-19-2023 Albumin [Mass/Vol] 4.6 g/dL Normal 3.2-5.3 [facility] Comment on above: Performed By: #### C BCA, BMP, LIVR, 05975-3, 3015-3, 70533-5 #### [facility] ([id number]) [address], [address] [place] [address] ALP [Catalytic activity/Vol] 43 U/L Normal 39-130 [facility] Comment on above: Performed By: #### C BCA, BMP, LIVR, 62121-6, 3016-3, 05508-3 #### [facility] ([id number]) [address], [address] [place] [address] ALT [Catalytic activity/Vol] 13 U/L Normal 0-31 [facility] Comment on above: Performed By: #### C BCA, BMP, LIVR, 24910-1, 3016-3, 51837-1 #### [facility] ([id number]) [address], [address] [place] [address] AST [Catalytic activity/Vol] 17 U/L Normal 0-41 [facility] Comment on above: Performed By: #### C BCA, BMP, LIVR, 89298-1, 3016-3, 94908-0 #### [facility] ([id number]) [address], [address] [place] [address] Bilirubin [Mass/Vol] 0.5 mg/dL Normal 0.3-1.2 [facility] Comment on above: Performed By: #### C BCA, BMP, LIVR, 72100-2, 3016-3, 63174-4 #### [facility] ([id number]) [address], [address] [place] [address] Bilirubin.direct [Mass/Vol] 0.1 mg/dL Normal 0.0-0.4 [facility] Comment on above: Performed By: #### C BCA, BMP, LIVR, 38176-3, 3016-3, 29952-4 #### [facility] ([id number]) [address], [address] [place] [address] Protein [Mass/Vol] 7.0 g/dL Normal 6.0-8.0 [facility] Comment on above: Performed By: #### C BCA, BMP, LIVR, 87284-0, 3016-3, 15187-5 #### [facility] ([id number]) [address], [address] [place] [address] Lipid 1996 panelon 02-14-202 4 Cholesterol [Mass/Vol] 177 mg/dL Normal 150-200 [facility] Comment on above: Performed By: #### C BCA, BMP, LIVR, 69346-3, 3016-3, 63894-4 #### [facility] ([id number]) [address], [address] [place] [address] Cholesterol in HDL [Mass/Vol] 48 mg/dL Normal >39 [facility] Comment on above: Result Comment: HDL <40 mg/dL - High Risk HDL > or = 40mg/dL- Desirable HDL >60 mg/dL - Negative Risk Performed By: #### C BCA, BMP, LIVR, 26260-7, 3016-3, 28454-8 #### [facility] ([id number]) [address], [address] [place] [address] Cholesterol in LDL [Mass/Vol] 81 mg/dL Normal <130 [facility] Comment on above: Result Comment: LDL <100 mg/dL - Desirable LDL >160 mg/dL - High Risk Performed By: #### C BCA, BMP, LIVR, 10844-4, 3016-3, 01430-3 #### [facility] ([id number]) [address], [address] [place] [address] Cholesterol in VLDL [Mass/Vol] 48 mg/dL High 0-30 [facility] Comment on above: Performed By: #### C BCA, BMP, LIVR, 62671-9, 3016-3, 60095-3 #### [facility] ([id number]) [address], [address] [place] [address] CHOLESTEROL:HDL 3.7 Normal 1.0-5.0 [facility] Comment on above: Performed By: #### C BCA, BMP, LIVR, 48918-1, 3016-3, 18595-0 #### [facility] ([id number]) [address] [facility] [address] [place] [address] Triglyceride [Mass/Vol] 239 mg/dL High 27-150 [facility] Comment on above: Performed By: #### C BCA, BMP, LIVR, 73659-0, 3016-3, 78622-2 #### [facility] ([id number]) [facility], [address] [address] MICROALBUMIN - ALBUMIN:CREAT ININE URINE RATIOon 04-19-2023 ALB/CREAT RATIO 26.4 mg/g creat Normal 0.0-30.0 [facility] Comment on above: Performed By: #### M ALBU #### [facility] ([id number]) [address] [address] Albumin DL <= 20 mg/L (U) [Mass/Vol] 2.0 mg/dL High 0.0-1.9 [facility] Comment on above: Performed By: #### M ALBU #### [facility] ([id number]) [address] [address] URINE CREAT 75.68 mg/dL Normal [facility] Comment on above: Performed By: #### M ALBU #### [facility] ([id number]) [address] [address] No Panel Informationon 04-19 Interpretation and review of laboratory results Abnormal [facility] TSH Qnon 04-19-2023 TSH 1.47 uIU/mL Normal 0.49-4.67 [facility] Comment on above: Performed By: #### C BCA, BMP, LIVR, 71503-8, 3016-3, 95647-9 #### [facility] ([id number]) [address] [place] [address], [address] [place] [address] Vitamin D+Metabolites [Mass/ Vol]on 04-19-2023 VITAMIN D 25 HYD TOT 51.9 ng/mL Normal 30-100 [facility] Comment on above: Result Comment: Vitamin D status 25 [place] Vitamin D Deficiency <20 ng/mL Insufficiency 20-29 ng/mL Sufficiency 30-100 ng/mL Toxicity >100 ng/mL NOTE: A pediatric reference range has not been established by the die sinker of this kit. The [place] [employer] recommends a Vitamin D level of = or >20ng/mL in infants and children. Performed By: #### C BCA, BMP, LIVR, 86512-7, 3016-3, 13726-8 #### [facility] ([id number]) [address] [place] [address], [address] [place] [address] Surgical Pathologyon 024 Surgical Pathology Normal [facility] Comment on above: Result Comment: [facility] [address] [place] [address] Surgical Pathology Consultation Patient Name:MALGORZATA SIMMONS:1945 (Age: 77)Gender:FTaken:4Reported:4Physician(s):Michaela Emerson MD ([phone])Copy To: Rec. #:[id number]: #[id number] Final Pathologic Diagnosis 1. Duodenal polyps, biopsy: [...] Out ssi/03/10/2023Florian Card M.D. Interpretation performed at [facility], [facility], [place] [address], License number: [id number]. Clinical History Iron deficient/anemia. Gross Description 1. Received in formalin labeled, SEAMON, duodenum are 3 palacio delicate to friable soft tissue bits, each 0.3 cm in greatest dimension. The specimens are filtered and submitted in a single cassette. (1, ns, [id number], m7) TB 2. Received in formalin labeled, SEAMON, antral are 2 palacio delicate soft tissue bits, 0.2 and 0.3 cm in greatest dimension. The specimens are filtered and submitted in a single cassette. (1, ns, [id number], m7) TB 3. Received in formalin labeled, SEAMON, fundus are 2 pale-palacio delicate soft tissue bits, 0.3 and 0.4 cm in greatest dimension. The specimens are filtered and submitted in a single cassette. (1, ns, [id number], m7) TB 4. Received in formalin labeled, SEAMON, 45 cm colon polyps is a pale-palacio feathery soft tissue bits, 0.4 cm in greatest dimension. The specimens are filtered and submitted in a single cassette. (1, ns, [id number], m7) TB tgb/03/08/2023GR Specimen(s) Received 1: Duodenum x2 polyps 2: Antrum biopsy 3: Fundic stomach 4: Colon polyp at 45cm Fee Codes(s): 1; 05855 2; 98851 3; 49289 4; 22934 GLYCOHEMOGLOBIN A1Con 2022 ADA RECOMMENDATION SEE BELOW Normal [facility] Comment on above: Result Comment: ADA RECOMMENDED LIMIT 4.0 - 6.0 ADA THERAPEUTIC TARGET < 7.0 ACTION SUGGESTED > 7.0 Performed By: #### B MP, LIPID, AST, TSH, ALT #### [facility] [address] [place] [address] Dr. Viri Strong Glucose [Mass/Vol] 126 mg/dL Normal [facility] Comment on above: Performed By: #### B MP, LIPID, AST, TSH, ALT #### [facility] [address] [place] [address] Dr. Viri Strong HbA1c (Bld) [Mass fraction] 6.0 % Normal 4.5-6.2 [facility] Comment on above: Performed By: #### B MP, LIPID, AST, TSH, ALT #### [facility] [address] [place] [address] Dr. Viri Strong RENAL FUNCTION PANELon 03-15 Albumin [Mass/Vol] 4.1 g/dL Normal 3.4-5.0 [facility] Comment on above: Performed By: #### B MP, LIPID, AST, TSH, ALT #### [facility] [address] [place] [address] Dr. Viri Strong Calcium [Mass/Vol] 9.1 mg/dL Normal 8.5-10.1 [facility] Comment on above: Performed By: #### B MP, LIPID, AST, TSH, ALT #### [facility] [address] [place] [address] Dr. Viri Strong Chloride [Moles/Vol] 107 mmol/L Normal 98-107 [facility] Comment on above: Performed By: #### B MP, LIPID, AST, TSH, ALT #### [facility] [address] [place] [address] Dr. Viri Strong CO2 [Moles/Vol] 24.6 mmol/L Normal 21.0-32.0 [facility] Comment on above: Performed By: #### B MP, LIPID, AST, TSH, ALT #### [facility] [address] [place] [address] Dr. Viri Strong Creatinine [Mass/Vol] 1.31 mg/dL Critically high 0.55-1.02 [facility] Comment on above: Performed By: #### B MP, LIPID, AST, TSH, ALT #### [facility] [address] [place] [address] Dr. Viri Strong EGFR-AF JAPANESE 48 mL/min/1.73m2 Critically low >=60 [facility] Comment on above: Performed By: #### B MP, LIPID, AST, TSH, ALT #### [facility] [address] [place] [address] Dr. Viri Strong EGFR-NON AF JAPANESE 40 mL/min/1.73m2 Critically low >=60 [facility] Comment on above: Performed By: #### B MP, LIPID, AST, TSH, ALT #### [facility] [address] [place] [address] Dr. Viri Strong Glucose [Mass/Vol] 99 mg/dL Normal 74-106 [facility] Comment on above: Performed By: #### B MP, LIPID, AST, TSH, ALT #### [facility] [address] [place] [address] Dr. Viri Strong Phosphate [Mass/Vol] 3.4 mg/dL Normal 2.6-4.7 [facility] Comment on above: Performed By: #### B MP, LIPID, AST, TSH, ALT #### [facility] [address] [place] [address] Dr. Viri Strong Potassium [Moles/Vol] 4.6 mmol/L Normal 3.5-5.1 [facility] Comment on above: Performed By: #### B MP, LIPID, AST, TSH, ALT #### [facility] [address] [place] [address] Dr. Viri Strong Sodium [Moles/Vol] 141 mmol/L Normal 136-145 [facility] Comment on above: Performed By: #### B MP, LIPID, AST, TSH, ALT #### [facility] [address] [place] [address] Dr. Viri Strong Urea nitrogen [Mass/Vol] 28.0 mg/dL Critically high 7.0-18 .0 [facility] Comment on above: Performed By: #### B MP, LIPID, AST, TSH, ALT #### [facility] [address] [place] [address] Dr. Viri Strong RENAL FUNCTION PANELon 01-31 Albumin [Mass/Vol] 4.1 g/dL Normal 3.4-5.0 [facility] Comment on above: Performed By: #### B MP, LIPID, AST, TSH, ALT #### [facility] [address] [address] [address] Viri Strong Calcium [Mass/Vol] 9.3 mg/dL Normal 8.5-10.1 [facility] Comment on above: Performed By: #### B MP, LIPID, AST, TSH, ALT #### [facility] [address] [place] [address] Dr. Viri Strong Chloride [Moles/Vol] 105 mmol/L Normal 98-107 [facility] Comment on above: Performed By: #### B MP, LIPID, AST, TSH, ALT #### [facility] [address] [place] [address] Dr. Viri Strong CO2 [Moles/Vol] 22.5 mmol/L Normal 21.0-32.0 [facility] Comment on above: Performed By: #### B MP, LIPID, AST, TSH, ALT #### [facility] [address] [place] [address] Dr. Viri Strong Creatinine [Mass/Vol] 1.31 mg/dL Critically high 0.55-1.02 [facility] Comment on above: Performed By: #### B MP, LIPID, AST, TSH, ALT #### [facility] [address] [address] [address] Viri Strong EGFR-AF JAPANESE 48 mL/min/1.73m2 Critically low >=60 [facility] Comment on above: Performed By: #### B MP, LIPID, AST, TSH, ALT #### [facility] [address] [place] [address] Dr. Viri Strong EGFR-NON AF JAPANESE 40 mL/min/1.73m2 Critically low >=60 [facility] Comment on above: Performed By: #### B MP, LIPID, AST, TSH, ALT #### [facility] [address] [place] [address] Dr. Viri Strong Glucose [Mass/Vol] 105 mg/dL Normal 74-106 [facility] Comment on above: Performed By: #### B MP, LIPID, AST, TSH, ALT #### [facility] [address] [place] [address] Dr. Viri Strong Phosphate [Mass/Vol] 3.2 mg/dL Normal 2.6-4.7 [facility] Comment on above: Performed By: #### B MP, LIPID, AST, TSH, ALT #### [facility] [address] [place] [address] Dr. Viri Strong Potassium [Moles/Vol] 5.0 mmol/L Normal 3.5-5.1 [facility] Comment on above: Performed By: #### B MP, LIPID, AST, TSH, ALT #### [facility] [address] [place] [address] Dr. Viri Strong Sodium [Moles/Vol] 138 mmol/L Normal 136-145 [facility] Comment on above: Performed By: #### B MP, LIPID, AST, TSH, ALT #### [facility] [address] [place] [address] Dr. Viri Strong Urea nitrogen [Mass/Vol] 24.0 mg/dL Critically high 7.0-18 .0 [facility] Comment on above: Performed By: #### B MP, LIPID, AST, TSH, ALT #### [facility] [address] [place] [address] Dr. Viri Strong MAGNESIUMon 01-19-2022 Magnesium [Mass/Vol] 2.1 mg/dL Normal 1.8-2.4 [facility] Comment on above: Performed By: #### B MP, LIPID, AST, TSH, ALT #### [facility] [address] [place] [address] Dr. Viri Strong RENAL FUNCTION PANELon 01-19 Albumin [Mass/Vol] 4.4 g/dL Normal 3.4-5.0 [facility] Comment on above: Performed By: #### B MP, LIPID, AST, TSH, ALT #### [facility] [address] [address] [address] Viri Strong Calcium [Mass/Vol] 9.7 mg/dL Normal 8.5-10.1 [facility] Comment on above: Performed By: #### B MP, LIPID, AST, TSH, ALT #### [facility] [address] [address] [address] Viri Strong Chloride [Moles/Vol] 101 mmol/L Normal 98-107 [facility] Comment on above: Performed By: #### B MP, LIPID, AST, TSH, ALT #### [facility] [address] [address] [address] Viri Strong CO2 [Moles/Vol] 26.8 mmol/L Normal 21.0-32.0 [facility] Comment on above: Performed By: #### B MP, LIPID, AST, TSH, ALT #### [facility] [address] [place] [address] Dr. Viri Strong Creatinine [Mass/Vol] 1.37 mg/dL Critically high 0.55-1.02 [facility] Comment on above: Performed By: #### B MP, LIPID, AST, TSH, ALT #### [facility] [address] [place] [address] Dr. Viri Strong EGFR-AF JAPANESE 46 mL/min/1.73m2 Critically low >=60 [facility] Comment on above: Performed By: #### B MP, LIPID, AST, TSH, ALT #### [facility] [address] [address] [address] Viri Strong EGFR-NON AF JAPANESE 38 mL/min/1.73m2 Critically low >=60 [facility] Comment on above: Performed By: #### B MP, LIPID, AST, TSH, ALT #### [facility] [address] [place] [address] Dr. Viri Strong Glucose [Mass/Vol] 88 mg/dL Normal 74-106 [facility] Comment on above: Performed By: #### B MP, LIPID, AST, TSH, ALT #### [facility] [address] [place] [address] Dr. Viri Strong Phosphate [Mass/Vol] 4.2 mg/dL Normal 2.6-4.7 [facility] Comment on above: Performed By: #### B MP, LIPID, AST, TSH, ALT #### [facility] [address] [place] [address] Dr. Viri Strong Potassium [Moles/Vol] 5.3 mmol/L Critically high 3.5-5.1 [facility] Comment on above: Performed By: #### B MP, LIPID, AST, TSH, ALT #### [facility] [address] [place] [address] Dr. Viri Strong Sodium [Moles/Vol] 135 mmol/L Critically low 136-145 [facility] Comment on above: Performed By: #### B MP, LIPID, AST, TSH, ALT #### [facility] [address] [place] [address] Dr. Viri Strong Urea nitrogen [Mass/Vol] 35.0 mg/dL Critically high 7.0-18 .0 [facility] Comment on above: Performed By: #### B MP, LIPID, AST, TSH, ALT #### [facility] [address] [place] [address] Dr. Viri Strong UA RANDOM W/MICROSCOPICon BACTERIA NONE SEEN Normal NONE SEEN [facility] Comment on above: Performed By: #### B MP, LIPID, AST, TSH, ALT #### [facility] [address] [place] [address] Dr. Viri Strong Bilirubin Ql (U) Negative Normal NEGATIVE [facility] Comment on above: Performed By: #### B MP, LIPID, AST, TSH, ALT #### [facility] [address] [place] [address] Dr. Viri Strong CAST NONE SEEN Normal NONE SEEN [facility] Comment on above: Performed By: #### B MP, LIPID, AST, TSH, ALT #### [facility] [address] [place] [address] Dr. Viri Strong Clarity (U) CLEAR Normal CLEAR [facility] Comment on above: Performed By: #### B MP, LIPID, AST, TSH, ALT #### [facility] [address] [address] [address] Viri Strong Color (U) LT. YELLOW Normal YELLOW [facility] Comment on above: Performed By: #### B MP, LIPID, AST, TSH, ALT #### [facility] [address] [address] [address] Viri Strong Crystals LM Nom (Urine sed) NONE SEEN Normal NONE SEEN [facility] Comment on above: Performed By: #### B MP, LIPID, AST, TSH, ALT #### [facility] [address] [address] [address] Viri Strong Epithelial cells LM Ql (Urine sed) RARE Normal NONE SEEN /RARE [facility] Comment on above: Performed By: #### B MP, LIPID, AST, TSH, ALT #### [facility] [address] [place] [address] Dr. Viri Strong Glucose Ql (U) Negative Normal NEGATIVE [facility] Comment on above: Performed By: #### B MP, LIPID, AST, TSH, ALT #### [facility] [address] [place] [address] Dr. Viri Strong Hemoglobin Ql (U) Negative Normal NEGATIVE [facility] Comment on above: Performed By: #### B MP, LIPID, AST, TSH, ALT #### [facility] [address] [place] [address] Dr. Viri Strong Ketones Ql (U) Negative Normal NEGATIVE [facility] Comment on above: Performed By: #### B MP, LIPID, AST, TSH, ALT #### [facility] [address] [address] [address] Viri Strong LEUKOCYTES TRACE Abnormal NEGATIVE [facility] Comment on above: Performed By: #### B MP, LIPID, AST, TSH, ALT #### [facility] [address] [place] [address] Dr. Viri Strong MUCOUS NONE SEEN Normal NONE SEEN [facility] Comment on above: Performed By: #### B MP, LIPID, AST, TSH, ALT #### [facility] [address] [place] [address] Dr. Viri Strong Nitrite Ql (U) Negative Normal NEGATIVE [facility] Comment on above: Performed By: #### B MP, LIPID, AST, TSH, ALT #### [facility] [address] [place] [address] Dr. Viri Strong pH (U) 5.0 [pH] Normal 5-9 [facility] Comment on above: Performed By: #### B MP, LIPID, AST, TSH, ALT #### [facility] [address] [place] [address] Dr. Viri Strong RBC 0-2 Normal 0-2 [facility] Comment on above: Performed By: #### B MP, LIPID, AST, TSH, ALT #### [facility] [address] [place] [address] Dr. Viri Strong SPEC GRAVITY 1.010 Normal 1.005-<=1.0 25 [facility] Comment on above: Performed By: #### B MP, LIPID, AST, TSH, ALT #### [facility] [address] [place] [address] Dr. Viri Strong UA PROTEIN Negative Normal NEGATIVE/ TRACE [facility] Comment on above: Performed By: #### B MP, LIPID, AST, TSH, ALT #### [facility] [address] [place] [address] Dr. Viri Strong Urobilinogen Qn (U) 0.2 {Alem'U}/dL Normal 0.2 - 1. 0 [facility] Comment on above: Performed By: #### B MP, LIPID, AST, TSH, ALT #### [facility] [address] [place] [address] Dr. Viri Strong WBC 2-5 Abnormal NONE SEEN [facility] Comment on above: Performed By: #### B MP, LIPID, AST, TSH, ALT #### [facility] [address] [place] [address] Dr. Viri Strong PTH INTACTon 01-04-2022 PTH, Intact 45 pg/mL Normal 15-65 [facility] Comment on above: Performed By: #### B MP, LIPID, AST, TSH, ALT #### [facility] [address] [place] [address] Dr. Viri Strong FERRITINon 01-03-2022 Ferritin [Mass/Vol] 51.0 ng/mL Normal 8.0-252.0 [facility] Comment on above: Performed By: #### B MP, LIPID, AST, TSH, ALT #### [facility] [address] [place] [address] Dr. Viri Strong HEMOGRAM AND PLATELon 2021 Hematocrit (Bld) [Volume fraction] 31.7 % Critically low 36.0-48.0 [facility] Comment on above: Performed By: #### B MP, LIPID, AST, TSH, ALT #### [facility] [address] [place] [address] Dr. Viri Strong Hemoglobin (Bld) [Mass/Vol] 10.2 g/dL Critically low 12.0-16.0 [facility] Comment on above: Performed By: #### B MP, LIPID, AST, TSH, ALT #### [facility] [address] [place] [address] Dr. Viri Strong MCH (RBC) [Entitic mass] 29.2 pg Normal 26.7-34.0 [facility] Comment on above: Performed By: #### B MP, LIPID, AST, TSH, ALT #### [facility] [address] [place] [address] Dr. Viri Strong MCHC (RBC) [Mass/Vol] 32.2 g/dL Normal 29.9-35.2 [facility] Comment on above: Performed By: #### B MP, LIPID, AST, TSH, ALT #### [facility] [address] [place] [address] Dr. Viri Strong MCV (RBC) [Entitic vol] 90.8 fL Normal 81.0-99.0 [facility] Comment on above: Performed By: #### B MP, LIPID, AST, TSH, ALT #### [facility] [address] [place] [address] Dr. Viri Strong PLT 231 103/ul Normal 150-450 [facility] Comment on above: Performed By: #### B MP, LIPID, AST, TSH, ALT #### [facility] [address] [address] [address] Viri Strong RBC 3.49 106/ul Critically low 4.20-5.40 [facility] Comment on above: Performed By: #### B MP, LIPID, AST, TSH, ALT #### [facility] [address] [address] [address] Viri Strong WBC 5.9 103/ul Normal 4.0-11.0 [facility] Comment on above: Performed By: #### B MP, LIPID, AST, TSH, ALT #### [facility] [address] [place] [address] Dr. Viri Strong IRON AND TIBCon 01-03-2022 % SATURATION 18.0 % Normal [facility] Comment on above: Performed By: #### B MP, LIPID, AST, TSH, ALT #### [facility] [address] [place] [address] Dr. Viri Strong Iron [Mass/Vol] 58.0 ug/dL Normal 50.0-170.0 [facility] Comment on above: Performed By: #### B MP, LIPID, AST, TSH, ALT #### [facility] [address] [place] [address] Dr. Viri Strong TIBC DIRECT 322.0 ug/dL Normal 250.0-450.0 The [facility] Comment on above: Performed By: #### B MP, LIPID, AST, TSH, ALT #### [facility] [address] [place] [address] Dr. Viri Strong MAGNESIUMon 01-03-2022 Magnesium [Mass/Vol] 2.1 mg/dL Normal 1.8-2.4 [facility] Comment on above: Performed By: #### M G, URIC, RENAL #### [facility] [address] [place] [address] Dr. Viri Strong RENAL FUNCTION PANELon 01-03 Albumin [Mass/Vol] 4.3 g/dL Normal 3.4-5.0 The [facility] Comment on above: Performed By: #### M G, URIC, RENAL #### [facility] [address] [address] [address] Viri Strong Calcium [Mass/Vol] 9.0 mg/dL Normal 8.5-10.1 The [facility] Comment on above: Performed By: #### M G, URIC, RENAL #### [facility] [address] [place] [address] Dr. Viri Strong Chloride [Moles/Vol] 108 mmol/L Critically high 98-107 [facility] Comment on above: Performed By: #### M G, URIC, RENAL #### [facility] [address] [place] [address] Dr. Viri Strong CO2 [Moles/Vol] 23.4 mmol/L Normal 21.0-32.0 [facility] Comment on above: Performed By: #### M G, URIC, RENAL #### [facility] [address] [place] [address] Dr. Viri Strong Creatinine [Mass/Vol] 1.32 mg/dL Critically high 0.55-1.02 [facility] Comment on above: Performed By: #### M G, URIC, RENAL #### [facility] [address] [place] [address] Dr. Viri Strong EGFR-AF JAPANESE 48 mL/min/1.73m2 Critically low >=60 [facility] Comment on above: Performed By: #### M G, URIC, RENAL #### [facility] [address] [place] [address] Dr. Viri Strong EGFR-NON AF JAPANESE 39 mL/min/1.73m2 Critically low >=60 [facility] Comment on above: Performed By: #### M G, URIC, RENAL #### [facility] [address] [place] [address] Dr. Viri Strong Glucose [Mass/Vol] 92 mg/dL Normal 74-106 [facility] Comment on above: Performed By: #### M G, URIC, RENAL #### [facility] [address] [place] [address] Dr. Viri Strong Phosphate [Mass/Vol] 4.0 mg/dL Normal 2.6-4.7 [facility] Comment on above: Performed By: #### M G, URIC, RENAL #### [facility] [address] [place] [address] Dr. Viri Strong Potassium [Moles/Vol] 4.7 mmol/L Normal 3.5-5.1 [facility] Comment on above: Performed By: #### M G, URIC, RENAL #### [facility] [address] [place] [address] Dr. Viri Strong Sodium [Moles/Vol] 138 mmol/L Normal 136-145 [facility] Comment on above: Performed By: #### M G, URIC, RENAL #### [facility] [address] [place] [address] Dr. Viri Strong Urea nitrogen [Mass/Vol] 33.0 mg/dL Critically high 7.0-18 .0 [facility] Comment on above: Performed By: #### M G, URIC, RENAL #### [facility] [address] [place] [address] Dr. Viri Strong UA RANDOM W/MICROSCOPICon BACTERIA NONE SEEN Normal NONE SEEN [facility] Comment on above: Performed By: #### B MP, LIPID, AST, TSH, ALT #### [facility] [address] [place] [address] Dr. Viri Strong Bilirubin Ql (U) Negative Normal NEGATIVE The [facility] Comment on above: Performed By: #### B MP, LIPID, AST, TSH, ALT #### [facility] [address] [place] [address] Dr. Viri Strong CAST NONE SEEN Normal NONE SEEN The [facility] Comment on above: Performed By: #### B MP, LIPID, AST, TSH, ALT #### [facility] [address] [place] [address] Dr. Viri Strong Clarity (U) CLEAR Normal CLEAR [facility] Comment on above: Performed By: #### B MP, LIPID, AST, TSH, ALT #### [facility] [address] [address] [address] Viri Strong Color (U) LT. YELLOW Normal YELLOW [facility] Comment on above: Performed By: #### B MP, LIPID, AST, TSH, ALT #### [facility] [address] [address] [address] Viri Strong Crystals LM Nom (Urine sed) NONE SEEN Normal NONE SEEN [facility] Comment on above: Performed By: #### B MP, LIPID, AST, TSH, ALT #### [facility] [address] [address] [address] Viri Strong Epithelial cells LM Ql (Urine sed) NONE SEEN Normal NONE SEEN /RARE [facility] Comment on above: Performed By: #### B MP, LIPID, AST, TSH, ALT #### [facility] [address] [place] [address] Dr. Viri Strong Glucose Ql (U) Negative Normal NEGATIVE The [facility] Comment on above: Performed By: #### B MP, LIPID, AST, TSH, ALT #### [facility] [address] [place] [address] Dr. Viri Strong Hemoglobin Ql (U) Negative Normal NEGATIVE The [facility] Comment on above: Performed By: #### B MP, LIPID, AST, TSH, ALT #### [facility] [address] [place] [address] Dr. Viri Strong Ketones Ql (U) Negative Normal NEGATIVE The [facility] Comment on above: Performed By: #### B MP, LIPID, AST, TSH, ALT #### [facility] [address] [address] [address] Viri Strong LEUKOCYTES SMALL Abnormal NEGATIVE The [facility] Comment on above: Performed By: #### B MP, LIPID, AST, TSH, ALT #### [facility] [address] [address] [address] Viri Strong MUCOUS NONE SEEN Normal NONE SEEN [facility] Comment on above: Performed By: #### B MP, LIPID, AST, TSH, ALT #### [facility] [address] [address] [address] Viri Strong Nitrite Ql (U) Negative Normal NEGATIVE The [facility] Comment on above: Performed By: #### B MP, LIPID, AST, TSH, ALT #### [facility] [address] [place] [address] Dr. Viri Strong pH (U) 5.5 [pH] Normal 5-9 [facility] Comment on above: Performed By: #### B MP, LIPID, AST, TSH, ALT #### [facility] [address] [place] [address] Dr. Viri Strong RBC 0-2 Normal 0-2 [facility] Comment on above: Performed By: #### B MP, LIPID, AST, TSH, ALT #### [facility] [address] [place] [address] Dr. Viri Strong SPEC GRAVITY 1.020 Normal 1.005-<=1.0 25 [facility] Comment on above: Performed By: #### B MP, LIPID, AST, TSH, ALT #### [facility] [address] [place] [address] Dr. Viri Strong UA PROTEIN Negative Normal NEGATIVE/ TRACE [facility] Comment on above: Performed By: #### B MP, LIPID, AST, TSH, ALT #### [facility] [address] [place] [address] Dr. Viri Strong Urobilinogen Qn (U) 0.2 {Alem'U}/dL Normal 0.2 - 1. 0 [facility] Comment on above: Performed By: #### B MP, LIPID, AST, TSH, ALT #### [facility] [address] [place] [address] Dr. Viri Strong WBC 0-2 Abnormal NONE SEEN [facility] Comment on above: Performed By: #### B MP, LIPID, AST, TSH, ALT #### [facility] [address] [place] [address] Dr. Viri Strong URIC ACID SERUMon 01-03-2022 Urate [Mass/Vol] 8.7 mg/dL Critically high 2.6-6.0 [facility] Comment on above: Performed By: #### M G, URIC, RENAL #### [facility] [address] [address] [address] Viri Strong URINE T PROTEIN CREAT RATIOo n 01-03-2022 Protein (U) [Mass/Vol] 30.8 mg/dL Critically high <=12.0 [facility] Comment on above: Performed By: #### B MP, LIPID, AST, TSH, ALT #### [facility] [address] [address] [address] Viri Strong UR PROT CREAT RAT 0.26 Normal [facility] Comment on above: Performed By: #### B MP, LIPID, AST, TSH, ALT #### [facility] [address] [place] [address] Dr. Viri Strong URINE CREAT 118.48 mg/dL Normal 20.00-300.0 0 [facility] Comment on above: Performed By: #### B MP, LIPID, AST, TSH, ALT #### [facility] [address] [place] [address] Dr. Viri Strong VITAMIN D 25 OHon 01-03-2022 VIT D 25-OH 36.5 ng/mL Normal [facility] Comment on above: Performed By: #### B MP, LIPID, AST, TSH, ALT #### [facility] [address] [place] [address] Dr. Viri Strong VIT D RANGES SEE BELOW Normal [facility] Comment on above: Result Comment: <20 ng/mL Vit D deficient 20 - <30 ng/mL Vit D insufficient 30 - 100 ng/mL Vit D sufficient >100 ng/mL Potential Toxicity Performed By: #### B MP, LIPID, AST, TSH, ALT #### [facility] [address] [place] [address] Dr. Viri Strong MICROALBUMIN URINEon 022 Albumin, Urine 5.1 ug/mL Normal Not Estab. The [facility] Comment on above: Performed By: #### B MP, LIPID, AST, TSH, ALT #### [facility] [address] [place] [address] Dr. Viri Strong VIT D 25-OH LABC[facility]on 2021 Vitamin D, 25-Hydroxy 36.7 ng/mL Normal 30.0-100.0 [facility] Comment on above: Result Comment: Silvina min D deficiency has been defined by the [place] of [employer] and an Endocrine Society practice guideline as a level of serum 25-OH vitamin D less than 20 ng/mL (1,2). The Endocrine Society went on to further define vitamin D insufficiency as a level between 21 and 29 ng/mL (2). 1. IOM ([place] of [employer]). 2010. Dietary reference intakes for calcium and D. [place]: The National Academies Press. 2. Levon MF, Prakash NC, Diamond KIRBY, et al. Evaluation, treatment, and prevention of vitamin D deficiency: an Endocrine Society clinical practice guideline. JCEM. 2010; 96(7):1911-30. Performed By: #### B MP, LIPID, AST, TSH, ALT #### [facility] [address] [place] [address] Dr. Viri Strong CBC AUTO DIFFon 10-26-2021 BASO # 0.1 103/ul Normal 0.0-0.1 [facility] Comment on above: Performed By: #### B MP, LIPID, AST, TSH, ALT #### [facility] [address] [place] [address] Dr. Viri Strong Basophils/100 WBC (Bld) 1.0 % Normal 0.2-2.0 [facility] Comment on above: Performed By: #### B MP, LIPID, AST, TSH, ALT #### [facility] [address] [address] [address] Viri Strong EO # 0.2 103/ul Normal 0.0-0.7 [facility] Comment on above: Performed By: #### B MP, LIPID, AST, TSH, ALT #### [facility] [address] [place] [address] Dr. Viri Strong Eosinophils/100 WBC (Bld) 4.6 % Normal 0.9-7.0 [facility] Comment on above: Performed By: #### B MP, LIPID, AST, TSH, ALT #### [facility] [address] [place] [address] Dr. Viri Strong Erythrocyte distribution width (RBC) [Ratio] 13.5 % Normal 11.0-15.0 [facility] Comment on above: Performed By: #### B MP, LIPID, AST, TSH, ALT #### [facility] [address] [place] [address] Dr. Viri Strong Hematocrit (Bld) [Volume fraction] 32.3 % Critically low 36.0-48.0 [facility] Comment on above: Performed By: #### B MP, LIPID, AST, TSH, ALT #### [facility] [address] [place] [address] Dr. Viri Strong Hemoglobin (Bld) [Mass/Vol] 10.7 g/dL Critically low 12.0-16.0 [facility] Comment on above: Performed By: #### B MP, LIPID, AST, TSH, ALT #### [facility] [address] [place] [address] Dr. Viri Strong IG # 0.01 10e3/ul Normal 0.00-0.03 [facility] Comment on above: Performed By: #### B MP, LIPID, AST, TSH, ALT #### [facility] [address] [place] [address] Dr. Viri Strong IG % 0.2 % Normal 0.0-0.5 [facility] Comment on above: Performed By: #### B MP, LIPID, AST, TSH, ALT #### [facility] [address] [place] [address] Dr. Viri Strong LYMPH # 1.3 103/ul Normal 1.2-3.8 [facility] Comment on above: Performed By: #### B MP, LIPID, AST, TSH, ALT #### [facility] [address] [place] [address] Dr. Viri Strogn Lymphocytes/100 WBC (Bld) 25.5 % Normal 20.5-60.0 [facility] Comment on above: Performed By: #### B MP, LIPID, AST, TSH, ALT #### [facility] [address] [place] [address] Dr. Viri Strong MANUAL DIFF REQ NO Normal [facility] Comment on above: Performed By: #### B MP, LIPID, AST, TSH, ALT #### [facility] [address] [place] [address] Dr. Viri Strong MCH (RBC) [Entitic mass] 29.3 pg Normal 26.7-34.0 [facility] Comment on above: Performed By: #### B MP, LIPID, AST, TSH, ALT #### [facility] [address] [place] [address] Dr. Viri Strong MCHC (RBC) [Mass/Vol] 33.1 g/dL Normal 29.9-35.2 [facility] Comment on above: Performed By: #### B MP, LIPID, AST, TSH, ALT #### [facility] [address] [place] [address] Dr. Viir Strong MCV (RBC) [Entitic vol] 88.5 fL Normal 81.0-99.0 [facility] Comment on above: Performed By: #### B MP, LIPID, AST, TSH, ALT #### [facility] [address] [place] [address] Dr. Viri Strong MONO # 0.4 103/ul Normal 0.3-0.8 [facility] Comment on above: Performed By: #### B MP, LIPID, AST, TSH, ALT #### [facility] [address] [place] [address] Dr. Viri Strong Monocytes/100 WBC (Bld) 8.0 % Normal 1.7-12.0 [facility] Comment on above: Performed By: #### B MP, LIPID, AST, TSH, ALT #### [facility] [address] [place] [address] Dr. Viri Strong NEUT # 3.0 103/ul Normal 1.4-6.5 [facility] Comment on above: Performed By: #### B MP, LIPID, AST, TSH, ALT #### [facility] [address] [place] [address] Dr. Viri Strong Neutrophils/100 WBC (Bld) 60.7 % Normal 43.0-75.0 [facility] Comment on above: Performed By: #### B MP, LIPID, AST, TSH, ALT #### [facility] [address] [address] [address] Viri Strong Platelet mean volume (Bld) [Entitic vol] 9.8 fL Normal 9.5-13.5 [facility] Comment on above: Performed By: #### B MP, LIPID, AST, TSH, ALT #### [facility] [address] [address] [address] Viri Strong PLT 266 103/ul Normal 150-450 [facility] Comment on above: Performed By: #### B MP, LIPID, AST, TSH, ALT #### [facility] [address] [address] [address] Viri Strong RBC 3.65 106/ul Critically low 4.20-5.40 [facility] Comment on above: Performed By: #### B MP, LIPID, AST, TSH, ALT #### [facility] [address] [place] [address] Dr. Viri Strong WBC 5.0 103/ul Normal 4.0-11.0 [facility] Comment on above: Performed By: #### B MP, LIPID, AST, TSH, ALT #### [facility] [address] [place] [address] Dr. Viri Strong GLYCOHEMOGLOBIN A1Con 2021 ADA RECOMMENDATION SEE BELOW Normal [facility] Comment on above: Result Comment: ADA RECOMMENDED LIMIT 4.0 - 6.0 ADA THERAPEUTIC TARGET < 7.0 ACTION SUGGESTED > 7.0 Performed By: #### B MP, LIPID, AST, TSH, ALT #### [facility] [address] [address] [address] Viri Strong Glucose [Mass/Vol] 117 mg/dL Normal [facility] Comment on above: Performed By: #### B MP, LIPID, AST, TSH, ALT #### [facility] [address] [place] [address] Dr. Viri Strong HbA1c (Bld) [Mass fraction] 5.7 % Normal 4.5-6.2 [facility] Comment on above: Performed By: #### B MP, LIPID, AST, TSH, ALT #### [facility] [address] [place] [address] Dr. Viri Strong LIPID PROFILEon 10-26-2021 CHOL-HDL RATIO NORM SEE BELOW Normal [facility] Comment on above: Result Comment: 3.3 - 4.4 LOW RISK 4.4 - 7.1 AVERAGE RISK 7.1 - 11.0 MODERATE RISK >11.0 HIGH RISK Performed By: #### B MP, LIPID, AST, TSH, ALT #### [facility] [address] [address] [address] Viri Strong Cholesterol [Mass/Vol] 158 mg/dL Normal <=200 Th [facility] Comment on above: Performed By: #### B MP, LIPID, AST, TSH, ALT #### [facility] [address] [place] [address] Dr. Viri Strong Cholesterol in HDL [Mass/Vol] 86 mg/dL Critically high 40-60 [facility] Comment on above: Performed By: #### B MP, LIPID, AST, TSH, ALT #### [facility] [address] [place] [address] Dr. Viri Strong Cholesterol in LDL [Mass/Vol] 50.0 mg/dL Normal [facility] Comment on above: Performed By: #### B MP, LIPID, AST, TSH, ALT #### [facility] [address] [place] [address] Dr. Viri Strong Cholesterol.total/Cholest ana in HDL [Mass ratio] 1.8 {ratio} Normal [facility] Comment on above: Performed By: #### B MP, LIPID, AST, TSH, ALT #### [facility] [address] [place] [address] Dr. Viri Strong HDL NORMAL > or = 60 mg/dl - LOW CARDIOVASCULAR RISK <40 mg/dl - HIGH CARDIOVASCULAR RISK Normal [facility] Comment on above: Performed By: #### B MP, LIPID, AST, TSH, ALT #### [facility] [address] [place] [address] Dr. Viri Strong LDL CALC NORMAL SEE BELOW Normal [facility] Comment on above: Result Comment: <100 mg/dl OPTIMAL 100 - 129 mg/dl NEAR OR ABOVE OPTIMAL 130 - 159 mg/dl BORDERLINE HIGH 160 - 189 mg/dl HIGH >190 mg/dl VERY HIGH Performed By: #### B MP, LIPID, AST, TSH, ALT #### [facility] [address] [address] [address] Viri Strong Triglyceride [Mass/Vol] 110 mg/dL Normal <=150 [facility] Comment on above: Performed By: #### B MP, LIPID, AST, TSH, ALT #### [facility] [address] [address] [address] Viri Strong VLDL CALC 22.0 mg/dL Normal [facility] Comment on above: Performed By: #### B MP, LIPID, AST, TSH, ALT #### [facility] [address] [place] [address] Dr. Viri Strong PROF CHEM 8 (BAS METB)on Anion gap [Moles/Vol] 13.8 mmol/L Normal [facility] Comment on above: Performed By: #### B MP, LIPID, AST, TSH, ALT #### [facility] [address] [address] [address] Viri Strong Calcium [Mass/Vol] 9.3 mg/dL Normal 8.5-10.1 [facility] Comment on above: Performed By: #### B MP, LIPID, AST, TSH, ALT #### [facility] [address] [address] [address] Viri Strong Chloride [Moles/Vol] 92 mmol/L Critically low 98-107 [facility] Comment on above: Performed By: #### B MP, LIPID, AST, TSH, ALT #### [facility] [address] [place] [address] Dr. Viri Strong CO2 [Moles/Vol] 26.0 mmol/L Normal 21.0-32.0 [facility] Comment on above: Performed By: #### B MP, LIPID, AST, TSH, ALT #### [facility] [address] [address] [address] Viri Strong Creatinine [Mass/Vol] 1.15 mg/dL Critically high 0.55-1.02 [facility] Comment on above: Performed By: #### B MP, LIPID, AST, TSH, ALT #### [facility] [address] [place] [address] Dr. Viri Strong EGFR-AF JAPANESE 56 mL/min/1.73m2 Critically low >=60 [facility] Comment on above: Performed By: #### B MP, LIPID, AST, TSH, ALT #### [facility] [address] [address] [address] Viri Strong EGFR-NON AF JAPANESE 46 mL/min/1.73m2 Critically low >=60 [facility] Comment on above: Performed By: #### B MP, LIPID, AST, TSH, ALT #### [facility] [address] [place] [address] Dr. Viri Strong Glucose [Mass/Vol] 92 mg/dL Normal 74-106 [facility] Comment on above: Performed By: #### B MP, LIPID, AST, TSH, ALT #### [facility] [address] [place] [address] Dr. Viri Strong Potassium [Moles/Vol] 4.8 mmol/L Normal 3.5-5.1 [facility] Comment on above: Performed By: #### B MP, LIPID, AST, TSH, ALT #### [facility] [address] [address] [address] Viri Strong Sodium [Moles/Vol] 127 mmol/L Critically low 136-145 [facility] Comment on above: Performed By: #### B MP, LIPID, AST, TSH, ALT #### [facility] [address] [place] [address] Dr. Viri Strong Urea nitrogen [Mass/Vol] 19.0 mg/dL Critically high 7.0-18 .0 [facility] Comment on above: Performed By: #### B MP, LIPID, AST, TSH, ALT #### [facility] [address] [place] [address] Dr. Viri Strong Urea nitrogen/Creatinine [Mass ratio] 16.5 mg/mg Normal [facility] Comment on above: Performed By: #### B MP, LIPID, AST, TSH, ALT #### [facility] [address] [place] [address] Dr. Viri BARAJASOTon 10-26-2021 AST [Catalytic activity/Vol] 15 U/L Normal 15-37 [facility] Comment on above: Performed By: #### B MP, LIPID, AST, TSH, ALT #### [facility] [address] [place] [address] Dr. Viri Strong SGPTon 10-26-2021 ALT [Catalytic activity/Vol] 25 U/L Normal 14-59 [facility] Comment on above: Performed By: #### B MP, LIPID, AST, TSH, ALT #### [facility] [address] [place] [address] Dr. Viri Strong TSHon 10-26-2021 TSH 1.833 uIU/mL Normal 0.358-3.740 [facility] Comment on above: Performed By: #### B MP, LIPID, AST, TSH, ALT #### [facility] [address] [place] [address] Dr. Viri Strong FREE LIGHT CHAINS PLUS RATIO on 06-03-2021 Free [place] Lt Chains,S 26.6 mg/L Critically high 3.3-19.4 [facility] Comment on above: Performed By: #### B MP, LIPID, AST, TSH, ALT #### [facility] [address] [place] [address] Dr. Viri Strong Free Lambda Lt Chains,S 19.6 mg/L Normal 5.7-26.3 [facility] Comment on above: Performed By: #### B MP, LIPID, AST, TSH, ALT #### [facility] [address] [place] [address] Dr. Viri Strong [place]/Lambda Ratio, S 1.36 Normal 0.26-1.65 [facility] Comment on above: Performed By: #### B MP, LIPID, AST, TSH, ALT #### [facility] [address] [place] [address] Dr. Viri Strong IMMUNOFIXATION (MONIKA), URINEo n 06-03-2021 MONIKA Interpretation:U Comment Normal [facility] Comment on above: Result Comment: No m onoclonality detected. Performed By: #### B MP, LIPID, AST, TSH, ALT #### [facility] [address] [place] [address] Dr. Viri Strong PROTEIN ELECTROPHERESIS URIN E RANDOMon 06-03-2021 Albumin, U 60.9 % Normal [facility] Comment on above: Performed By: #### U PTE #### [facility] [address] [place] [address] Dr. Viri Strong Alpha-1 Globulin U 3.9 % Normal [facility] Comment on above: Performed By: #### U PTE #### [facility] [address] [place] [address] Dr. Viri Strong Alpha-2 Glubulin U 8.2 % Normal [facility] Comment on above: Performed By: #### U PTE #### [facility] [address] [place] [address] Dr. Viri Strong Beta Globulin, U 17.3 % Normal [facility] Comment on above: Performed By: #### U PTE #### [facility] [address] [place] [address] Dr. Viri Strong Gamma Globulin U 9.7 % Normal [facility] Comment on above: Performed By: #### U PTE #### [facility] [address] [place] [address] Dr. Viri Strong M-Ciro, % Not Observed Normal Not Observed [facility] Comment on above: Performed By: #### U PTE #### [facility] [address] [place] [address] Dr. Viri Strong PDF . Normal [facility] Comment on above: Performed By: #### U PTE #### [facility] [address] [place] [address] Dr. Viri Strong Please note: Comment Normal [facility] Comment on above: Result Comment: Prot ein electrophoresis scan will follow via computer, mail, or railway engineer delivery. Performed By: #### U PTE #### [facility] [address] [place] [address] Dr. Viri Strong Protein (U) [Mass/Vol] 12.2 mg/dL Normal Not Estab. [facility] Comment on above: Performed By: #### U PTE #### [facility] [address] [place] [address] Dr. Viri Strong HEP B SURFACE AGon HBsAg Screen Negative Normal Negative [facility] Comment on above: Performed By: #### B MP, LIPID, AST, TSH, ALT #### [facility] [address] [place] [address] Dr. Viri Strong HEPATITIS B SURFACE ANTIBODY , QUANTon 06-02-2021 Hepatitis B Surf AB Quant <3.1 Critically low Immunity>9. 9 [facility] Comment on above: Result Comment: Stat us of Immunity Anti-HBs Level Inconsistent with Immunity 0.0 - 9.9 Consistent with Immunity >9.9 Performed By: #### B MP, LIPID, AST, TSH, ALT #### [facility] [address] [place] [address] Dr. Viri Strong HEPATITIS C VIRUS AB W/ REFL EX QUANTon 06-02-2021 HCV AB <0.1 Normal 0.0-0.9 [facility] Comment on above: Performed By: #### H CVPCRR #### [facility] [address] [place] [address] Dr. Viri Strong Interpretation: Comment Normal [facility] Comment on above: Result Comment: Nega tive Not infected with HCV, unless recent infection is suspected or other evidence exists to indicate HCV infection. Performed By: #### H CVPCRR #### [facility] [address] [place] [address] Dr. Viri Strong IMMUNOFIXATION (MONIKA), SERUM n 06-02-2021 IMMUNOFIXATION RESULT Comment Normal [facility] Comment on above: Result Comment: No m onoclonality detected. Performed By: #### B MP, LIPID, AST, TSH, ALT #### [facility] [address] [place] [address] Dr. Viri Strong Immunoglobulin A, Qn, Serum 152 mg/dL Normal 64-422 [facility] Comment on above: Performed By: #### B MP, LIPID, AST, TSH, ALT #### [facility] [address] [place] [address] Dr. Viri Strong Immunoglobulin G, Qn, Serum 510 mg/dL Critically low [id number] [facility] Comment on above: Performed By: #### B MP, LIPID, AST, TSH, ALT #### [facility] [address] [place] [address] Dr. Viri Strong Immunoglobulin M, Qn, Serum 68 mg/dL Normal 26-217 [facility] Comment on above: Performed By: #### B MP, LIPID, AST, TSH, ALT #### [facility] [address] [place] [address] Dr. Viri Strong PROTEIN ELECTROPHERESISon Albumin [Mass/Vol] 4.0 g/dL Normal 2.9-4.4 [facility] Comment on above: Performed By: #### B MP, LIPID, AST, TSH, ALT #### [facility] [address] [place] [address] Dr. Viri Strong Albumin/Globulin [Mass ratio] 1.4 {ratio} Normal 0.7-1.7 [facility] Comment on above: Performed By: #### B MP, LIPID, AST, TSH, ALT #### [facility] [address] [place] [address] Dr. Viri Strong Espgt-3-Mpzqnfvf 0.3 g/dL Normal 0.0-0.4 [facility] Comment on above: Performed By: #### B MP, LIPID, AST, TSH, ALT #### [facility] [address] [place] [address] Dr. Viri Strong Htrxe-9-Wryxmczx 0.9 g/dL Normal 0.4-1.0 [facility] Comment on above: Performed By: #### B MP, LIPID, AST, TSH, ALT #### [facility] [address] [place] [address] Dr. Viri Strong Beta Globulin 1.1 g/dL Normal 0.7-1.3 [facility] Comment on above: Performed By: #### B MP, LIPID, AST, TSH, ALT #### [facility] [address] [place] [address] Dr. Viri Strong Gamma Globulin 0.6 g/dL Normal 0.4-1.8 [facility] Comment on above: Performed By: #### B MP, LIPID, AST, TSH, ALT #### [facility] [address] [place] [address] Dr. Viri Strong Globulin (S) [Mass/Vol] 2.9 g/dL Normal 2.2-3.9 [facility] Comment on above: Performed By: #### B MP, LIPID, AST, TSH, ALT #### [facility] [address] [place] [address] Dr. Viri Strong M-Ciro Not Observed Normal Not Observed [facility] Comment on above: Performed By: #### B MP, LIPID, AST, TSH, ALT #### [facility] [address] [place] [address] Dr. Viri Strong PDF . Normal [facility] Comment on above: Performed By: #### B MP, LIPID, AST, TSH, ALT #### [facility] [address] [place] [address] Dr. Viri Strong Please note: Comment Normal [facility] Comment on above: Result Comment: Prot ein electrophoresis scan will follow via computer, mail, or railway engineer delivery. Performed By: #### B MP, LIPID, AST, TSH, ALT #### [facility] [address] [place] [address] Dr. Viri Strong Protein [Mass/Vol] 6.9 g/dL Normal 6.0-8.5 [facility] Comment on above: Performed By: #### B MP, LIPID, AST, TSH, ALT #### [facility] [address] [place] [address] Dr. Viri Strong PTH INTACTon 06-02-2021 PTH, Intact 27 pg/mL Normal 15-65 [facility] Comment on above: Performed By: #### B MP, LIPID, AST, TSH, ALT #### [facility] [address] [place] [address] Dr. Viri Strong FERRITINon 06-01-2021 Ferritin [Mass/Vol] 48.0 ng/mL Normal 11.1-264.0 [facility] Comment on above: Performed By: #### B MP, LIPID, AST, TSH, ALT #### [facility] [address] [place] [address] Dr. Viri Strong HEMOGRAM AND PLATELon 2021 Hematocrit (Bld) [Volume fraction] 33.9 % Critically low 36.0-48.0 [facility] Comment on above: Performed By: #### B MP, LIPID, AST, TSH, ALT #### [facility] [address] [place] [address] Dr. Viri Strong Hemoglobin (Bld) [Mass/Vol] 11.1 g/dL Critically low 12.0-16.0 [facility] Comment on above: Performed By: #### B MP, LIPID, AST, TSH, ALT #### [facility] [address] [place] [address] Dr. Viri Strong MCH (RBC) [Entitic mass] 29.8 pg Normal 26.7-34.0 [facility] Comment on above: Performed By: #### B MP, LIPID, AST, TSH, ALT #### [facility] [address] [place] [address] Dr. Viri Strong MCHC (RBC) [Mass/Vol] 32.7 g/dL Normal 29.9-35.2 [facility] Comment on above: Performed By: #### B MP, LIPID, AST, TSH, ALT #### [facility] [address] [place] [address] Dr. Viri Strong MCV (RBC) [Entitic vol] 90.9 fL Normal 81.0-99.0 [facility] Comment on above: Performed By: #### B MP, LIPID, AST, TSH, ALT #### [facility] [address] [place] [address] Dr. Viri Strong PLT 240 103/ul Normal 150-450 [facility] Comment on above: Performed By: #### B MP, LIPID, AST, TSH, ALT #### [facility] [address] [place] [address] Dr. Viri Strong RBC 3.73 106/ul Critically low 4.20-5.40 [facility] Comment on above: Performed By: #### B MP, LIPID, AST, TSH, ALT #### [facility] [address] [place] [address] Dr. Viri Strong WBC 7.8 103/ul Normal 4.0-11.0 [facility] Comment on above: Performed By: #### B MP, LIPID, AST, TSH, ALT #### [facility] [address] [place] [address] Dr. Viri Strong IRON AND TIBCon 06-01-2021 % SATURATION 18.0 % Normal [facility] Comment on above: Performed By: #### B MP, LIPID, AST, TSH, ALT #### [facility] [address] [place] [address] Dr. Viri Strong Iron [Mass/Vol] 58.0 ug/dL Normal 37.0-170.0 [facility] Comment on above: Performed By: #### B MP, LIPID, AST, TSH, ALT #### [facility] [address] [place] [address] Dr. Viri Strong TIBC DIRECT 323.0 ug/dL Normal 261.0-497.0 [facility] Comment on above: Performed By: #### B MP, LIPID, AST, TSH, ALT #### [facility] [address] [place] [address] Dr. Viri Strong MAGNESIUMon 06-01-2021 Magnesium [Mass/Vol] 2.1 mg/dL Normal 1.6-2.3 [facility] Comment on above: Performed By: #### B MP, LIPID, AST, TSH, ALT #### [facility] [address] [place] [address] Dr. Viri Strong RENAL FUNCTION PANELon 06-01 Albumin [Mass/Vol] 4.4 g/dL Normal 3.4-5.0 [facility] Comment on above: Performed By: #### B MP, LIPID, AST, TSH, ALT #### [facility] [address] [place] [address] Dr. Viri Strong Calcium [Mass/Vol] 10.0 mg/dL Normal 8.5-10.1 [facility] Comment on above: Performed By: #### B MP, LIPID, AST, TSH, ALT #### [facility] [address] [place] [address] Dr. Viri Strong Chloride [Moles/Vol] 103 mmol/L Normal 98-107 [facility] Comment on above: Performed By: #### B MP, LIPID, AST, TSH, ALT #### [facility] [address] [place] [address] Dr. Viri Strong CO2 [Moles/Vol] 26.8 mmol/L Normal 22.0-30.0 [facility] Comment on above: Performed By: #### B MP, LIPID, AST, TSH, ALT #### [facility] [address] [place] [address] Dr. Viri Strong Creatinine [Mass/Vol] 1.18 mg/dL Critically high 0.52-1.04 [facility] Comment on above: Performed By: #### B MP, LIPID, AST, TSH, ALT #### [facility] [address] [place] [address] Dr. Viri Strong EGFR-AF JAPANESE 54 mL/min/1.73m2 Critically low >=60 [facility] Comment on above: Performed By: #### B MP, LIPID, AST, TSH, ALT #### [facility] [address] [place] [address] Dr. Viri Strong EGFR-NON AF JAPANESE 45 mL/min/1.73m2 Critically low >=60 [facility] Comment on above: Performed By: #### B MP, LIPID, AST, TSH, ALT #### [facility] [address] [address] [address] Viri Strong Glucose [Mass/Vol] 93 mg/dL Normal 74-106 [facility] Comment on above: Performed By: #### B MP, LIPID, AST, TSH, ALT #### [facility] [address] [address] [address] Viri Strong Phosphate [Mass/Vol] 4.1 mg/dL Normal 2.5-4.5 [facility] Comment on above: Performed By: #### B MP, LIPID, AST, TSH, ALT #### [facility] [address] [place] [address] Dr. Viri Strong Potassium [Moles/Vol] 4.8 mmol/L Normal 3.4-5.0 [facility] Comment on above: Performed By: #### B MP, LIPID, AST, TSH, ALT #### [facility] [address] [place] [address] Dr. Viri Strong Sodium [Moles/Vol] 140 mmol/L Normal 137-145 [facility] Comment on above: Performed By: #### B MP, LIPID, AST, TSH, ALT #### [facility] [address] [place] [address] Dr. Viri Strong Urea nitrogen [Mass/Vol] 24.0 mg/dL Critically high 7.0-18 .0 [facility] Comment on above: Performed By: #### B MP, LIPID, AST, TSH, ALT #### [facility] [address] [place] [address] Dr. Viri Strong UA RANDOM W/MICROSCOPICon BACTERIA TRACE Abnormal NONE SEEN [facility] Comment on above: Performed By: #### B MP, LIPID, AST, TSH, ALT #### [facility] [address] [place] [address] Dr. Viri Strong Bilirubin Ql (U) Negative Normal NEGATIVE [facility] Comment on above: Performed By: #### B MP, LIPID, AST, TSH, ALT #### [facility] [address] [place] [address] Dr. Viri Strong CAST NONE SEEN Normal NONE SEEN [facility] Comment on above: Performed By: #### B MP, LIPID, AST, TSH, ALT #### [facility] [address] [place] [address] Dr. Viri Strong Clarity (U) CLEAR Normal CLEAR [facility] Comment on above: Performed By: #### B MP, LIPID, AST, TSH, ALT #### [facility] [address] [place] [address] Dr. Viri Strong Color (U) LT. YELLOW Normal YELLOW [facility] Comment on above: Performed By: #### B MP, LIPID, AST, TSH, ALT #### [facility] [address] [place] [address] Dr. Viri Strong Crystals LM Nom (Urine sed) NONE SEEN Normal NONE SEEN [facility] Comment on above: Performed By: #### B MP, LIPID, AST, TSH, ALT #### [facility] [address] [place] [address] Dr. Viri Strong Epithelial cells LM Ql (Urine sed) RARE Normal NONE SEEN /RARE [facility] Comment on above: Performed By: #### B MP, LIPID, AST, TSH, ALT #### [facility] [address] [place] [address] Dr. Viri Strong Glucose Ql (U) Negative Normal NEGATIVE [facility] Comment on above: Performed By: #### B MP, LIPID, AST, TSH, ALT #### [facility] [address] [place] [address] Dr. Viri Strong Hemoglobin Ql (U) Negative Normal NEGATIVE [facility] Comment on above: Performed By: #### B MP, LIPID, AST, TSH, ALT #### [facility] [address] [place] [address] Dr. Viri Strong Ketones Ql (U) Negative Normal NEGATIVE [facility] Comment on above: Performed By: #### B MP, LIPID, AST, TSH, ALT #### [facility] [address] [place] [address] Dr. Viri Strong LEUKOCYTES MODERATE Abnormal NEGATIVE [facility] Comment on above: Performed By: #### B MP, LIPID, AST, TSH, ALT #### [facility] [address] [place] [address] Dr. Viri Strong MUCOUS NONE SEEN Normal NONE SEEN [facility] Comment on above: Performed By: #### B MP, LIPID, AST, TSH, ALT #### [facility] [address] [place] [address] Dr. Viri Strong Nitrite Ql (U) Negative Normal NEGATIVE [facility] Comment on above: Performed By: #### B MP, LIPID, AST, TSH, ALT #### [facility] [address] [place] [address] Dr. Viri Strong pH (U) 6.0 [pH] Normal 5-9 [facility] Comment on above: Performed By: #### B MP, LIPID, AST, TSH, ALT #### [facility] [address] [place] [address] Dr. Viri Strong RBC 0-2 Normal 0-2 [facility] Comment on above: Performed By: #### B MP, LIPID, AST, TSH, ALT #### [facility] [address] [place] [address] Dr. Viri Strong SPEC GRAVITY 1.010 Normal 1.005-<=1.0 25 [facility] Comment on above: Performed By: #### B MP, LIPID, AST, TSH, ALT #### [facility] [address] [place] [address] Dr. Viri Strong UA PROTEIN Negative Normal NEGATIVE/ TRACE [facility] Comment on above: Performed By: #### B MP, LIPID, AST, TSH, ALT #### [facility] [address] [place] [address] Dr. Viri Strong Urobilinogen Qn (U) 0.2 {Alem'U}/dL Normal 0.2 - 1. 0 [facility] Comment on above: Performed By: #### B MP, LIPID, AST, TSH, ALT #### [facility] [address] [address] [address] Viri Strong WBC 2-5 Abnormal NONE SEEN [facility] Comment on above: Performed By: #### B MP, LIPID, AST, TSH, ALT #### [facility] [address] [place] [address] Dr. Viri Strong URIC ACID SERUMon 06-01-2021 Urate [Mass/Vol] 7.4 mg/dL Critically high 2.5-6.2 [facility] Comment on above: Performed By: #### B MP, LIPID, AST, TSH, ALT #### [facility] [address] [place] [address] Dr. Viri Strong URINE T PROTEIN CREAT RATIOo n 06-01-2021 Protein (U) [Mass/Vol] 15.1 mg/dL Critically high <=12.0 [facility] Comment on above: Performed By: #### B MP, LIPID, AST, TSH, ALT #### [facility] [address] [address] [address] Viri Strong UR PROT CREAT RAT 0.29 Normal [facility] Comment on above: Performed By: #### B MP, LIPID, AST, TSH, ALT #### [facility] [address] [place] [address] Dr. Viri Strong URINE CREAT 52.27 mg/dL Normal 20.00-300.0 0 [facility] Comment on above: Performed By: #### B MP, LIPID, AST, TSH, ALT #### [facility] [address] [place] [address] Dr. Viri Strong VITAMIN D 25 OHon 06-01-2021 VIT D 25-OH 38.9 ng/mL Normal [facility] Comment on above: Performed By: #### B MP, LIPID, AST, TSH, ALT #### [facility] [address] [place] [address] Dr. Viri Strong VIT D RANGES SEE BELOW Normal [facility] Comment on above: Result Comment: <20 ng/mL Vit D deficient 20 - <30 ng/mL Vit D insufficient 30 - 100 ng/mL Vit D sufficient >100 ng/mL Potential Toxicity Performed By: #### B MP, LIPID, AST, TSH, ALT #### [facility] [address] [address] [address] Viri Strong Reminderson 06-28-2019 Reminders - From: Donna Fiore MA To: EU - Clinical; Sent: 01/16/2019 14:46:43 EST Show up: 04/16/2019 07:00:00 EST Subject: Ambulatory Reminder Due Date/Time: 04/30/2019 07:00:00 EST Reminder/Recall pt is scheduled for Renal US @[facility] on 04/15/18. Has f/u w/PRW on 05/01/18. Renal US & CXR scheduled for 04/15/18 8am @[facility]. No results in chart yet Per [place] central scheduling, appt was cancelled and Pt stated she would call back to reschedule. Appt was cancelled 04/12/2019. Pt being sent cert letter. See other message pt r/s for renal us and cxr 07/02/2019 @ 8:45am, [facility]. F/u appt 07/08/19 for results.LG Normal [facility] Reminderson 01-21-2019 Reminders - From: Donna Fiore MA To: EU - Recalls Michelle; Sent: 01/16/2019 14:06:32 EST Show up: 01/16/2019 07:00:00 EST Subject: needs Renal US & CXR Due Date/Time: 02/02/2019 07:00:00 EST Reminder/Recall pt needs scheduled for 2yr f/u w/Renal US & CXR. done Normal [facility] Vital Signs Date Time Vital Sign Value Performing Clinician Facility 06-03-2024 09:56-0400 Body height 154.9 cm Misael Perez MD Work Phone: [facility] 06-03-2024 09:56-0400 Body mass index (BMI) [Ratio] 35.33 kg/m2 Misael Perez MD Work Phone: [facility] 06-03-2024 09:56-0400 Body temperature 96.4 [degF] Misael Perez MD Work Phone: [facility] 06-03-2024 09:56-0400 Body weight 84.82 kg Misael Perez MD Work Phone: [facility] 06-03-2024 09:56-0400 Diastolic blood pressure 58 mm[Hg] Misael Perez MD Work Phone: [facility] 06-03-2024 09:56-0400 Heart rate 52 /min Misael Perez MD Work Phone: [facility] 06-03-2024 09:56-0400 Respiratory rate 22 /min Misael Perez MD Work Phone: [facility] 06-03-2024 09:56-0400 SaO2% (BldA) [Mass fraction] 93 % Misael Perez MD Work Phone: [facility] 06-03-2024 09:56-0400 Systolic blood pressure 112 mm[Hg] Misael Perez MD Work Phone: [facility] 01-02-2024 08:12-0400 Body height 154.94 cm MD Misael Perez Work Phone: [facility] 01-02-2024 08:12-0400 Body mass index (BMI) [Ratio] 33.8 kg/m2 MD Misael Perez Work Phone: [facility] 01-02-2024 08:12-0400 Body temperature 96.5 [degF] MD Misael Perez Work Phone: [facility] 01-02-2024 08:12-0400 Body weight 81.24 kg MD Misael Perez Work Phone: [facility] 01-02-2024 08:12-0400 Diastolic blood pressure 70 mm[Hg] MD Misael Perez Work Phone: [facility] 01-02-2024 08:12-0400 Heart rate 63 /min MD Misael Perez Work Phone: [facility] 01-02-2024 08:12-0400 Respiratory rate 16 /min MD Misael Perez Work Phone: [facility] 01-02-2024 08:12-0400 SaO2% (BldA) [Mass fraction] 95 % MD Misael Perez Work Phone: [facility] 01-02-2024 08:12-0400 Systolic blood pressure 113 mm[Hg] MD Misael Perez Work Phone: [facility] 12-04-2023 08:58-0400 Body height 154.9 cm Misael Perez MD Work Phone: [facility] 12-04-2023 08:58-0400 Body mass index (BMI) [Ratio] 33.25 kg/m2 Misael Perez MD Work Phone: [facility] 12-04-2023 08:58-0400 Body temperature 97.11 [degF] Misael Perez MD Work Phone: [facility] 12-04-2023 08:58-0400 Body weight 79.83 kg Misael Perez MD Work Phone: [facility] 12-04-2023 08:58-0400 Diastolic blood pressure 56 mm[Hg] Misael Perez MD Work Phone: [facility] 12-04-2023 08:58-0400 Heart rate 61 /min Misael Perez MD Work Phone: [facility] 12-04-2023 08:58-0400 Respiratory rate 22 /min Misael Perez MD Work Phone: [facility] 12-04-2023 08:58-0400 SaO2% (BldA) [Mass fraction] 97 % Misael Perez MD Work Phone: [facility] 12-04-2023 08:58-0400 Systolic blood pressure 128 mm[Hg] Misael Perez MD Work Phone: [facility] 11-22-2023 10:34-0400 Body height 154.94 cm Misael Perez MD Work Phone: [facility] 11-22-2023 10:34-0400 Body weight 78.01 kg Misael Perez MD Work Phone: [facility] 10-10-2023 13:10-0400 Body height 154.94 cm MD Misael Perez Work Phone: [facility] 10-10-2023 13:10-0400 Body mass index (BMI) [Ratio] 34 kg/m2 MD Misael Perez Work Phone: [facility] 10-10-2023 13:10-0400 Body weight 81.64 kg MD Misael Perez Work Phone: [facility] 09-25-2023 09:59-0400 Body height 154.94 cm MD Misael Perez Work Phone: [facility] 09-25-2023 09:59-0400 Body mass index (BMI) [Ratio] 34.2 kg/m2 MD Misael Perez Work Phone: [facility] 09-25-2023 09:59-0400 Body weight 82.1 kg MD Misael Perez Work Phone: [facility] 09-25-2023 09:59-0400 Diastolic blood pressure 88 mm[Hg] MD Misael Perez Work Phone: [facility] 09-25-2023 09:59-0400 Heart rate 60 /min MD Misael Perez Work Phone: [facility] 09-25-2023 09:59-0400 Systolic blood pressure 138 mm[Hg] MD Misael Perez Work Phone: [facility] 08-21-2023 10:18-0400 Body height 154.94 cm MD Misael Perez Work Phone: [facility] 08-21-2023 10:18-0400 Body mass index (BMI) [Ratio] 34.1 kg/m2 MD Misael Perez Work Phone: [facility] 08-21-2023 10:18-0400 Body temperature 96.6 [degF] MD Misael Perez Work Phone: [facility] 08-21-2023 10:18-0400 Body weight 82 kg MD Misael Perez Work Phone: [facility] 08-21-2023 10:18-0400 Diastolic blood pressure 55 mm[Hg] MD Misael Perez Work Phone: [facility] 08-21-2023 10:18-0400 Heart rate 54 /min MD Misael Perez Work Phone: [facility] 08-21-2023 10:18-0400 Respiratory rate 16 /min MD Misael Perez Work Phone: [facility] 08-21-2023 10:18-0400 SaO2% (BldA) [Mass fraction] 96 % MD Misael Perez Work Phone: [facility] 08-21-2023 10:18-0400 Systolic blood pressure 117 mm[Hg] MD Misael Perez Work Phone: [facility] 08-15-2023 14:00-0400 Body temperature 97.9 [degF] MD Misael Perez Work Phone: [facility] 08-15-2023 14:00-0400 Diastolic blood pressure 81 mm[Hg] MD Misael Perez Work Phone: [facility] 08-15-2023 14:00-0400 Heart rate 58 /min MD Misael Perez Work Phone: [facility] 08-15-2023 14:00-0400 Respiratory rate 18 /min MD Misael Perez Work Phone: [facility] 08-15-2023 14:00-0400 SaO2% (BldA) [Mass fraction] 96 % MD Misael Perez Work Phone: [facility] 08-15-2023 14:00-0400 Systolic blood pressure 135 mm[Hg] MD Misael Perez Work Phone: [facility] 08-15-2023 06:00-0400 Body weight 83.9 kg MD Misael Perez Work Phone: [facility] 08-14-2023 21:53-0400 Body height 154.94 cm MD Misael Perez Work Phone: [facility] 08-14-2023 20:03-0400 Diastolic blood pressure 72 mm[Hg] MD Misael Perez Work Phone: [facility] 08-14-2023 20:03-0400 Heart rate 62 /min MD Misael Perez Work Phone: [facility] 08-14-2023 20:03-0400 Respiratory rate 21 /min MD Misael Perez Work Phone: [facility] 08-14-2023 20:03-0400 SaO2% (BldA) [Mass fraction] 98 % MD Misael Perez Work Phone: [facility] 08-14-2023 20:03-0400 Systolic blood pressure 172 mm[Hg] MD Misael Perez Work Phone: [facility] 08-14-2023 16:28-0400 Body height 154.94 cm MD Misael Perez Work Phone: [facility] 08-14-2023 16:28-0400 Body temperature 98.1 [degF] MD Misael Perez Work Phone: [facility] 08-14-2023 16:28-0400 Body weight 83.9 kg MD Misael Perez Work Phone: [facility] 07-18-2023 10:07-0400 Body height 160.02 cm MD Misael Perez Work Phone: [facility] 07-18-2023 10:07-0400 Body mass index (BMI) [Ratio] 33.3 kg/m2 MD Misael Perez Work Phone: [facility] 07-18-2023 10:07-0400 Body temperature 96.4 [degF] MD Misael Perez Work Phone: [facility] 07-18-2023 10:07-0400 Body weight 85.47 kg MD Misael Perez Work Phone: [facility] 07-18-2023 10:07-0400 Diastolic blood pressure 64 mm[Hg] MD Misael Perez Work Phone: [facility] 07-18-2023 10:07-0400 Heart rate 68 /min MD Misael Perez Work Phone: [facility] 07-18-2023 10:07-0400 Respiratory rate 16 /min MD Misael Perez Work Phone: [facility] 07-18-2023 10:07-0400 SaO2% (BldA) [Mass fraction] 94 % MD Misael Perez Work Phone: [facility] 07-18-2023 10:07-0400 Systolic blood pressure 99 mm[Hg] MD Misael Perez Work Phone: [facility] 07-13-2023 11:55-0400 Body height 160.02 cm [facility] 07-13-2023 11:55-0400 Body mass index (BMI) [Ratio] 33.3 kg/m2 [facility] 07-13-2023 11:55-0400 Body temperature 97.3 [degF] [facility] 07-13-2023 11:55-0400 Body weight 85.36 kg [facility] 07-13-2023 11:55-0400 Diastolic blood pressure 70 mm[Hg] [facility] 07-13-2023 11:55-0400 Heart rate 55 /min [facility] 07-13-2023 11:55-0400 Respiratory rate 16 /min [facility] 07-13-2023 11:55-0400 SaO2% (BldA) [Mass fraction] 95 % [facility] 07-13-2023 11:55-0400 Systolic blood pressure 102 mm[Hg] [facility] 04-18-2023 10:32-0500 Body height 160 cm [employer] Work Phone: [facility] 04-18-2023 10:32-0500 Body mass index (BMI) [Ratio] 33.48 kg/m2 [employer] Phone: [facility] [employer] 04-18-2023 10:32-0500 Body weight 85.73 kg [employer] Phone: [facility] [employer] 03-14-2023 15:20-0500 Body height 160.02 cm Aleyda Dennis Other [employer] Other 03-14-2023 15:20-0500 Body mass index (BMI) [Ratio] 33.19 kg/m2 Aleyda Dennis Other [employer] Other 03-14-2023 15:20-0500 Body temperature 96.6 [degF] Aleyda Dennis Other [employer] Other 03-14-2023 15:20-0500 Body weight 85 kg Aleyda Dennis Other [employer] Other 03-14-2023 15:20-0500 Diastolic blood pressure 75 mm[Hg] Aleyda Dennis Other [employer] Other 03-14-2023 15:20-0500 Respiratory rate 18 /min Aleyda Dennis Other [employer] Other 03-14-2023 15:20-0500 SaO2% (BldA) [Mass fraction] 96 % Aleyda Dennis Other [employer] Other 03-14-2023 15:20-0500 Systolic blood pressure 123 mm[Hg] Aleyda Dennis Other [employer] Other 02-21-2023 10:40-0500 Body height 160.02 cm Aleyda Dennis Other [employer] Other 02-21-2023 10:40-0500 Body mass index (BMI) [Ratio] 33.9 kg/m2 Aleyda Dennis Other [employer] Other 02-21-2023 10:40-0500 Body temperature 96.2 [degF] Aleyda Dennis Other [employer] Other 02-21-2023 10:40-0500 Body weight 86.82 kg Aleyda Dennis Other [employer] Other 02-21-2023 10:40-0500 Diastolic blood pressure 71 mm[Hg] Aleyda Dennis Other [employer] Other 02-21-2023 10:40-0500 Respiratory rate 18 /min Aleyda Dennis Other [employer] Other 02-21-2023 10:40-0500 SaO2% (BldA) [Mass fraction] 96 % Aleyda Dennis Other [employer] Other 02-21-2023 10:40-0500 Systolic blood pressure 108 mm[Hg] Aleyda Dennis Other [employer] Other 08-04-2022 12:00-0400 Body height 160.02 cm Aleyda Dennis Other [employer] Other 08-04-2022 12:00-0400 Body mass index (BMI) [Ratio] 33.69 kg/m2 Aleyda Dennis Other [employer] Other 08-04-2022 12:00-0400 Body temperature 96.8 [degF] Aleyda Dennis Other [employer] Other 08-04-2022 12:00-0400 Body weight 86.27 kg Aleyda Dennis Other [employer] Other 08-04-2022 12:00-0400 Diastolic blood pressure 86 mm[Hg] Aleyda Dennis Other [employer] Other 08-04-2022 12:00-0400 Respiratory rate 18 /min Aleyda Dennis Other [employer] Other 08-04-2022 12:00-0400 SaO2% (BldA) [Mass fraction] 95 % Aleyda Dennis Other [employer] Other 08-04-2022 12:00-0400 Systolic blood pressure 136 mm[Hg] Aleyda Dennis Other [employer] Other 01-13-2022 14:00-0500 Body height 160.02 cm Aleyda Dennis Other [employer] Other 01-13-2022 14:00-0500 Body mass index (BMI) [Ratio] 31.99 kg/m2 Aleyda Dennis Other [employer] Other 01-13-2022 14:00-0500 Body temperature 96.3 [degF] Aleyda Dennis Other [employer] Other 01-13-2022 14:00-0500 Body weight 81.92 kg Aleyda Dennis Other [employer] Other 01-13-2022 14:00-0500 Diastolic blood pressure 77 mm[Hg] Aleyda Dennis Other [employer] Other 01-13-2022 14:00-0500 Respiratory rate 18 /min Aleyda Dennis Other [employer] Other 01-13-2022 14:00-0500 SaO2% (BldA) [Mass fraction] 96 % Aleyda Dennis Other [employer] Other 01-13-2022 14:00-0500 Systolic blood pressure 129 mm[Hg] Aleyda Dennis Other [employer] Other 12-10-2020 11:40-0400 Body height 160.02 cm Aleyda Dennis Other [employer] Other 12-10-2020 11:40-0400 Body mass index (BMI) [Ratio] 32.98 kg/m2 Aleyda Dennis Other [employer] Other 12-10-2020 11:40-0400 Body temperature 96 [degF] Aleyda Dennis Other [employer] Other 12-10-2020 11:40-0400 Body weight 84.46 kg Aleyda Dennis Other [employer] Other 12-10-2020 11:40-0400 Diastolic blood pressure 80 mm[Hg] Aleyda Dennis Other [employer] Other 12-10-2020 11:40-0400 Respiratory rate 18 /min Aleyda Dennis Other [employer] Other 12-10-2020 11:40-0400 SaO2% (BldA) [Mass fraction] 96 % Aleyda Dennis Other [employer] Other 12-10-2020 11:40-0400 Systolic blood pressure 139 mm[Hg] Aleyda Dennis Other [employer] Other Encounters Encounter Date Encounter Type Care Provider Facility Start: 06-04-2024 End: 06-04-2024 Refill Misael Perez MD Work Phone: [facility] Comment on above: Paresthesia of both feet Start: 06-03-2024 End: 06-03-2024 Bamboo flowsheet Misael Perez MD Work Phone: [facility] Start: 06-03-2024 End: 06-03-2024 Bamboo flowsheet Misael Perez MD Work Phone: [facility] Start: 06-03-2024 End: 06-03-2024 Clinisync Result Encounter Misael Perez MD Work Phone: [facility] Unsolicited Start: 06-03-2024 End: 06-03-2024 ambulatory Kuldeep Almazan MD Work Phone: [facility] Work Phone: Start: 06-03-2024 End: 06-03-2024 Departed Referred Kuldeep Almazan MD Work Phone: [facility] Start: 06-03-2024 End: 06-03-2024 Office outpatient visit 25 minutes Misael Perez MD Work Phone: [facility] Comment on above: Type 2 diabetes sienna itus with hyperglycemia, without long-term current use of insulin ([facility]/HCC) (Primary Dx); Benign essential hypertension ([facility]/HCC); Chronic diastolic congestive heart failure ([facility]/HCC); Paroxysmal atrial fibrillation ([facility]/HCC); DDD (degenerative disc disease), cervical; Chronic superficial 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; Stage 3b chronic kidney disease (CKD) ([facility]); Vitamin D deficiency; Dyslipidemia ([facility]/HCC); Encounter for long-term (current) use of medications; Obesity (BMI 30-39.9); Class 2 severe obesity due to excess calories with serious comorbidity and body mass index (BMI) of 35.0 to 35.9 in adult (CMS/HCC); Renal cell carcinoma, unspecified laterality ([facility]/HCC); Type 2 diabetes mellitus with diabetic chronic kidney disease ([facility]/HCC) Start: 06-03-2024 End: 06-03-2024 ambulatory MISAEL PEREZ Not Available Start: 05-28-2024 ambulatory [facility] Start: 05-06-2024 End: 05-06-2024 ambulatory [facility] Start: 05-01-2024 End: 05-01-2024 Refill Misael Perez MD Work Phone: [facility] Comment on above: DDD (degenerative di sc disease), cervical Start: 04-10-2024 End: 04-10-2024 Clinisync Result Encounter Generic External Data Provider [facility] Unsolicited Start: 04-10-2024 End: 04-10-2024 Clinisync Result Encounter Generic External Data Provider [facility] Unsolicited Start: 04-02-2024 End: 04-02-[facility]24 [facility] Start: 03-22-2024 End: 03-22-[address] [facility] Start: 03-12-2024 End: 03-12-2024 Refill Misael Perez MD Work Phone: [facility] Comment on above: DDD (degenerative di sc disease), cervical Start: 02-29-2024 End: 02-29-2024 Refill Misael Perez MD Work Phone: [facility] Comment on above: Paresthesia of both feet Start: 01-24-2024 End: 01-24-[address] [facility] Start: 01-23-2024 End: 01-23-2024 Refill Misael Perez MD Work Phone: [facility] Comment on above: DDD (degenerative di sc disease), cervical Start: 01-11-2024 End: 01-11-2024 Bamboo flowsheet Chery Vela [employer] Work Phone: [facility] Start: 01-11-2024 End: 01-11-2024 Bamboo flowsheet Chery Vela [employer] Work Phone: [facility] Start: 01-11-2024 End: 01-11-2024 Office outpatient visit 15 minutes Chery Vela [employer] Work Phone: [facility] Comment on above: Status post right kn ee replacement; Primary osteoarthritis of right knee Start: 01-11-2024 End: 01-11-2024 ambulatory CHERY VELA Not Available Start: 01-02-2024 End: 01-02-2024 ambulatory MD Misael Perez Work Phone: [facility] Work Phone: Start: 01-02-2024 End: 01-02-2024 Patient encounter procedure MD Misael Perez Work Phone: [facility] Work Phone: Start: 12-26-2023 End: 12-26-2023 Clinisync Result Encounter Generic External Data Provider [facility] Unsolicited Start: 12-26-2023 End: 12-26-2023 Clinisync Result Encounter Generic External Data Provider [facility] External [facility] Unsolicited Start: 12-26-2023 Non-patient / Non-visit MD Natalie Perez Work Phone: [facility] Phys[facility] Work Phone: Start: 12-04-2023 End: 12-04-2023 Bamboo flowsheet Misael Perez MD Work Phone: [facility] Start: 12-04-2023 End: 12-04-2023 Clinisync Result Encounter Misael Perez MD Work Phone: [facility] Unsolicited Start: 12-04-2023 End: 12-04-2023 Clinisync Result Encounter Misael Peerz MD Work Phone: [facility] Unsolicited Start: 12-04-2023 End: 12-04-2023 Office outpatient visit 25 minutes Misael Perez MD Work Phone: [facility] Comment on above: Type 2 diabetes sienna itus with hyperglycemia, without long-term current use of insulin (CMS/HCC) (Primary Dx); Benign essential hypertension (CMS/HCC); DDD (degenerative disc disease), cervical; Paroxysmal atrial fibrillation (CMS/HCC); Chronic diastolic congestive heart failure (CMS/HCC); Chronic superficial 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; Renal cell carcinoma, unspecified laterality (CMS/HCC) Start: 12-04-2023 End: 12-04-2023 ambulatory MISAEL PEREZ Not Available Start: 11-22-2023 End: 11-22-2023 ambulatory Misael Perez MD Work Phone: [facility] Work Phone: Start: 11-22-2023 End: 11-22-2023 Departed Referred Misael Perez MD Work Phone: [facility] Work Phone: Start: 10-30-2023 End: 10-30-2023 Patient encounter procedure MD Misael Perez Work Phone: [facility] Work Phone: Start: 10-30-2023 End: 10-30-2023 ambulatory MD Misael Perez Work Phone: [facility] Work Phone: Start: 10-11-2023 End: 10-11-2023 ambulatory CHERY EVLA Not Available Start: 10-10-2023 End: 10-10-2023 ambulatory MD Misael Perez Work Phone: [facility] Work Phone: Start: 10-10-2023 End: 10-10-2023 Patient encounter procedure MD Misael Perez Work Phone: [facility] G[facility] Work Phone: Start: 09-25-2023 End: 09-25-2023 ambulatory MD Misael Perez Work Phone: [facility] Work Phone: Start: 09-25-2023 End: 09-25-2023 Patient encounter procedure MD Misael Perez Work Phone: [facility] Nephrology Work Phone: Start: 09-18-2023 Non-patient / Non-visit MD Natalie Perez Work Phone: [facility] Work Phone: Start: 09-18-2023 End: 09-18-2023 ambulatory [facility] Start: 08-31-2023 End: 08-31-2023 ambulatory JL PEPE Not Available Start: 08-24-2023 End: 08-24-2023 ambulatory YULY VALDERRAMA Not Available Start: 08-24-2023 End: 08-24-2023 ambulatory FELIPE SCHAEFER Not Available Start: 08-22-2023 End: 08-22-2023 ambulatory MISAEL PEREZ Not Available Start: 08-22-2023 End: 08-22-2023 ambulatory JL PEPE Not Available Start: 08-21-2023 End: 08-21-2023 ambulatory MD Misael Perez Work Phone: [facility] Work Phone: Start: 08-21-2023 End: 08-21-2023 Patient encounter procedure MD Misael Perez Work Phone: [facility] Nephrology Work Phone: Start: 08-17-2023 End: 08-17-2023 ambulatory JL PEPE Not Available Start: 08-15-2023 End: 08-15-2023 Non-patient / Non-visit MD Misael Perez Work Phone: [facility] Nephrology Work Phone: Start: 08-14-2023 End: 08-15-2023 ambulatory Imad Asaad Facility:[facility] Start: 08-14-2023 End: 08-15-2023 Evaluation and management of inpatient MD Misael Perez Work Phone: [facility] Work Phone: Start: 08-14-2023 End: 08-15-2023 observation encounter MD Misael Perez Work Phone: [facility] Work Phone: Start: 08-14-2023 Non-patient / Non-visit MD Natalie Perez Work Phone[facility] Work [facility]: Start: 08-11-2023 End: 08-11-2023 ambulatory JL PEPE Not Available Start: 08-09-2023 End: 08-09-2023 ambulatory BELEN PATRICK Not Available Start: 07-27-2023 End: 07-27-2023 ambulatory FELIPE Acuna RYDERWOOD Not Available Start: 07-27-2023 End: 07-27-2023 ambulatory SHAIKH LYNN Not Available Start: 07-21-2023 End: 07-21-2023 Evaluation and management of inpatient [facility] Start: 07-19-2023 End: 07-20-2023 ambulatory [facility] Start: 07-18-2023 End: 07-18-2023 Patient encounter procedure MD Misael Perez Work Phone: [facility] Nephrology Work Phone: Start: 07-13-2023 End: 07-13-2023 ambulatory [facility] Work Phone: Start: 07-13-2023 End: 07-13-2023 Patient encounter procedure [facility] Physician [facility] Ne[facility] [place] Work Phone: Start: 07-11-2023 End: 07-11-2023 ambulatory [facility] Start: 07-06-2023 Non-patient / Non-visit [facility] Work [facility]: Start: 06-30-2023 End: 06-30-2023 ambulatory MISAEL PEREZ Not Available Start: 06-22-2023 End: 06-22-2023 ambulatory [facility] Start: 06-22-2023 Encounter for other preprocedural examination [facility] Start: 06-22-2023 End: 06-22-2023 ambulatory FELIPE Acuna R[place]DER[place]OD Not Available Start: 06-06-2023 End: 12-04-2023 Preprocedural examination done Misael Perez MD Work Phone: [facility] Start: 06-06-2023 End: 06-06-2023 ambulatory MISAEL PEREZ Not Available Start: 04-19-2023 External Result Encounter Misael Perez MD Work Phone: [facility] Unsolicited Start: 04-19-2023 External Result Encounter Misael Perez MD Work Phone: [facility] Unsolicited Start: 04-19-2023 End: 04-19-[address] [facility] Start: 04-18-2023 Telephone encounter Misael whitlock MD Work Phone: [facility] Start: 04-18-2023 End: 04-18-2023 Follow-up encounter Felipe Schaefer DO Work Phone: [facility] Comment on above: Chronic pain of righ t knee (Primary Dx); Arthritis of right knee; Complex tear of medial meniscus of right knee as current injury, initial encounter; Other tear of lateral meniscus of right knee as current injury, initial encounter Start: 04-10-2023 Bamboo flowsheet Valery wilburn NP Work Phone: [facility] Start: 04-10-2023 Bamboo flowsheet Valery wilburn [employer] Work Phone: [facility] Start: 04-10-2023 End: 04-10-2023 Office outpatient visit 15 minutes Valery Garcia NP Work Phone: [facility] Comment on above: Chronic pain of righ t knee (Primary Dx); Arthritis of right knee; Internal derangement of right knee Start: 03-14-2023 End: 03-14-2023 ambulatory Aleyda Dennis Other [employer] Other Start: 03-14-2023 Office outpatient vi sit 15 minutes Aleyda Dennis [facility] Start: 03-13-2023 End: 03-13-2023 ambulatory Aleyda Dennis Other [employer] Other Start: 03-13-2023 Telephone encounter Aleyda Dennis [facility] Start: 03-08-2023 End: 03-09-2023 Evaluation and management of inpatient [facility] Start: 03-07-2023 End: 03-07-2023 ambulatory [facility] Start: 02-21-2023 (INJECTION) INJECTION Aleyda Dennis [facility] Start: 02-21-2023 End: 02-21-2023 ambulatory Aleyda Dennis Other [employer] Other Start: 02-20-2023 End: 02-20-2023 ambulatory Aleyda Dennis Other [employer] Other Start: 02-20-2023 Telephone encounter Aleyda Dennis [facility] Start: 11-23-2022 End: 11-23-2022 ambulatory Aleyda Dennis Other [employer] Other Start: 11-23-2022 Telephone encounter Aleyda Dennis [facility] Start: 10-25-2022 End: 10-25-2022 ambulatory Aleyda Dennis Other [employer] Other Start: 10-25-2022 Telephone encounter Aleyda Dennis [facility] Start: 09-12-2022 End: 09-12-2022 ambulatory Aleyda Dennis Other [employer] Other Start: 09-12-2022 Telephone encounter Aleyda Dennis [facility] Start: 08-05-2022 End: 08-05-2022 ambulatory Aleyda Dennis Other [employer] Other Start: 08-05-2022 Telephone encounter Aleyda Dennis [facility] Start: 08-04-2022 End: 08-04-2022 ambulatory Aleyda Dennis Other [employer] Other Start: 08-04-2022 Office outpatient vi sit 25 minutes Aleyda Dennis [facility] Start: 04-25-2022 End: 04-26-[address] MISAEL PEREZ Facility:[facility] Start: 03-15-2022 End: 03-16-2022 ambulatory ALEYDA DENNIS Facility:[facility] Start: 03-08-2022 End: 03-08-2022 ambulatory Aziz Bakhous Other [employer] Other Start: 03-08-2022 Telephone encounter Aziz Bakhous [facility] Start: 01-31-2022 End: 02-01-[address] MISAEL PEREZ Facility:[facility] Start: 01-24-2022 End: 01-24-2022 ambulatory Aziz Bakhous Other [employer] Other Start: 01-24-2022 Telephone encounter Aziz Bakhous [facility] Start: 01-19-2022 End: 01-20-[address] MISAEL PEREZ Facility:[facility] Start: 01-13-2022 End: 01-13-2022 ambulatory Aleyda Dennis Other [employer] Other Start: 01-13-2022 Office outpatient vi sit 25 minutes Aleyda Dennis [facility] Start: 01-03-2022 End: 01-04-2022 ambulatory ALEYDA DENNIS Facility:[facility] Start: 10-26-2021 End: 10-27-[address] MISAEL PEREZ Facility:[facility] Start: 09-07-2021 End: 09-07-2021 ambulatory Aleyda Dennis Other [employer] Other Start: 09-07-2021 Telephone encounter Aleyda [facility] [place] Start: 06-07-2021 End: 06-07-2021 ambulatory Aziz Bakhous Other [employer] Other Start: 06-07-2021 Telephone encounter Chandler [facility]ree[facility] Start: 06-01-2021 End: 06-02-[address] MISAEL PEREZ Facility: Start: 03-09-2021 End: 03-09-2021 ambulatory Maxi Norton Other [employer] Other Start: 03-09-2021 Telephone encounter Maxi Norton [facility] Start: 01-27-2021 End: 01-27-2021 ambulatory Maxi Norton Other [employer] Other Start: 01-27-2021 Telephone encounter Maxi Norton [facility] Start: 12-10-2020 Office outpatient vi sit 25 minutes Aleyda Collins [facility] [place] Start: 10-26-2017 End: 10-27-2017 Patient encounter DEFAULT PHYSICIAN Facility:[facility] Start: 10-16-2017 End: 10-17-2017 Patient encounter DEFAULT PHYSICIAN Facility:[facility] Procedures Date Procedure Procedure Detail Performing Clinician Start: 06-03-2024 ALL CBC WITH AUTO DIFF Misael Perez MD Work Phone: Start: 04-10-2024 NM AAMIR PERF SPECT REST STR Generic Exter nal Data Provider Start: 01-11-2024 Radiologic examination knee 1/2 views Chery Vela TOOL AND DIE DESIGNER Work Phone: Start: 12-26-2023 HMHP CBC WITH [...] now? 1 Result Comment: PERF ORMED BY: [facility] [address] [place] [address] PATHOLOGIST WAIST FITTER LATONIA BRAND M.D. Start: 08-14-2023 Screening for occult blood in feces MD Misael Perez Work Phone: Start: 08-14-2023 Stool Occult Blood (MILAD) MD Misael ePrez Work Phone: Start: 04-19-2023 Basic metabolic panel calcium total Misael Perez MD Work Phone: Start: 04-19-2023 Complete blood count with white cell differential, automated Misael Perez MD Work Phone: Start: 03-08-2023 Colonoscopy Valery Garcia NP Work Phone: Plan of Treatment Date Care Activity Detail Author Start: 03-08-2033 Screening for malignant neoplasm of colon [facility] Start: 04-08-2026 Glaucoma screening Diabetes: Retinopathy Screening [facility] Start: 06-03-2025 Urine screening for protein Diabetes: Urine Protein Screening [facility] Start: 12-09-2024 End: 12-09-2024 Patient encounter procedure 12/09/2024 11:30 AM EDT Office Visit [facility] [address] [place] [address] Misael Perez MD [address] [place] [id number] [facility] Start: 07-11-2024 End: 07-11-2024 Patient encounter procedure 07/11/2024 10:30 AM EDT Office Visit [facility] [address] [place] [address] Chery Vela NP [address] [place], [place] [id number] [facility] Start: 06-03-2024 End: 06-03-2025 25-hydroxyvitamin D3 [Mass/volume] in Serum or Plasma Vitamin D 25 hydroxy Lab Routine Vitamin D deficiency Expected: 06/03/2024 (Approximate), Expires: 06/03/2025 [facility] Comment on above: Expected: 06/03/2024 (Approximate), Expi res: 06/03/2025 Start: 06-03-2024 End: 06-03-2025 Basic metabolic 1998 panel - Serum or Plasma Basic metabolic panel Lab Routine Stage 3b chronic kidney disease (CKD) ([facility]) Expected: 06/03/2024 (Approximate), Expires: 06/03/2025 [facility] Comment on above: Expected: 06/03/2024 (Approximate), Expi res: 06/03/2025 Start: 06-03-2024 End: 06-03-2025 CBC W Auto Differential panel - Blood CBC and differential Lab Routine Encounter for long-term (current) use of medications Expected: 06/03/2024 (Approximate), Expires: 06/03/2025 [facility] Comment on above: Expected: 06/03/2024 (Approximate), Expi res: 06/03/2025 Start: 06-03-2024 End: 06-03-2025 Hemoglobin A1c/Hemoglobin.total in Blood Hemoglobin A1c Lab Routine Type 2 diabetes mellitus with hyperglycemia, without long-term current use of insulin ([facility]) Expected: 06/03/2024 (Approximate), Expires: 06/03/2025 [facility] Comment on above: Expected: 06/03/2024 (Approximate), Expi res: 06/03/2025 Start: 06-03-2024 End: 06-03-2025 Hepatic function 2000 panel - Serum or Plasma Hepatic function panel Lab Routine Encounter for long-term (current) use of medications Expected: 06/03/2024 (Approximate), Expires: 06/03/2025 [facility] Comment on above: Expected: 06/03/2024 (Approximate), Expi res: 06/03/2025 Start: 06-03-2024 End: 06-03-2025 Lipid 1996 panel - Serum or Plasma Lipid panel Lab Routine Dyslipidemia ([facility]) Expected: 06/03/2024 (Approximate), Expires: 06/03/2025 [facility] Comment on above: Expected: 06/03/2024 (Approximate), Expi res: 06/03/2025 Start: 06-03-2024 End: 06-03-2025 Microalbumin/Creatinine panel in random Urine Microalbumin / creatinine, urine ratio Lab Routine Type 2 diabetes mellitus with hyperglycemia, without long-term current use of insulin (CMS/HCC) Expected: 06/03/2024 (Approximate), Expires: 06/03/2025 [facility] Work Phone: Comment on above: Expected: 06/03/2024 (Approximate), Expi res: 06/03/2025 Start: 06-03-2024 End: 06-03-2025 Thyrotropin [Units/volume] in Serum or Plasma TSH Lab Routine Obesity (BMI 30-39.9) Expected: 06/03/2024 (Approximate), Expires: 06/03/2025 [facility] Comment on above: Expected: 06/03/2024 (Approximate), Expi res: 06/03/2025 Start: 06-03-2024 End: 06-03-2024 Patient encounter procedure [facility] Comment on above: Arrived Start: 04-19-2024 Urine screening for protein Diabetes: Urine Protein Screening [facility] Start: 01-11-2024 End: 01-11-2024 Patient encounter procedure [facility] Comment on above: Status post right knee replacement; Primary osteoarthritis of right knee Start: 12-22-2023 Hemoglobin A1c measurement Diabetes: Hemoglobin A1C [facility] Start: 12-11-2023 End: 12-11-2023 Patient encounter procedure 12/11/2023 9:15 AM EDT Office Visit [facility] [address] [place] [address] Misael Perez MD [address] [place] [phone] [facility] Start: 12-04-2023 End: 12-03-2024 Hemoglobin A1c/Hemoglobin.total in Blood Hemoglobin A1c Lab Routine Type 2 diabetes mellitus with hyperglycemia, without long-term current use of insulin ([facility]) Expected: 12/04/2023 (Approximate), Expires: 12/03/2024 [facility] Work Phone: Comment on above: Expected: 12/04/2023 (Approximate), Expi res: 12/03/2024 Start: 12-04-2023 End: 12-04-2023 Patient encounter procedure 12/04/2023 9:00 AM EDT Office Visit [facility] [address] [place] [phone] Misael Perez MD [address] [place] [phone] Arrived [facility] Comment on above: Arrived Start: 11-05-2023 Influenza vaccination Influenza Vaccine (#1) [facility] Start: 10-30-2023 [facility] Start: 08-15-2023 End: 08-15-2023 [facility] Start: 08-14-2023 Referral to retail special event associate [facility] Start: 08-14-2023 Referral to international affairs vice president [facility] Start: 08-14-2023 Hospital admission [facility] Start: 08-14-2023 [facility] Start: 08-14-2023 [facility] Start: 04-18-2023 End: 04-18-2024 25-hydroxyvitamin D3 [...] hyperglycemia, without long-term current use of insulin ([facility]) Expected: 04/18/2023 (Approximate), Expires: 04/18/2024 [facility] [...] insulin (CMS/HCC) Expected: 04/18/2023 (Approximate), Expires: 04/18/2024 [facility] Work Phone: [...] Dyslipidemia (CMS/HCC) Expected: 04/18/2023 (Approximate), Expires: 04/18/2024 [facility] Comment on above: Expected: 04/18/2023 (Approximate), Expi res: 04/18/2024 Start: 04-18-2023 End: 04-18-2024 Thyrotropin [Units/volume] in Serum or Plasma TSH Lab Routine Obesity (BMI 30-39.9) Expected: 04/18/2023 (Approximate), Expires: 04/18/2024 [facility] Comment on above: Expected: 04/18/2023 (Approximate), Expi res: 04/18/2024 Start: 04-18-2023 End: 04-18-2023 Patient encounter procedure 04/18/2023 10:30 AM EST Office Visit [facility] [address] [place] [address] Felipe Schaefer DO [address] [place] [address] [facility] Start: 04-10-2023 End: 04-10-2024 MR Knee - right WO contrast MR knee right wo IV contrast Imaging Routine Internal derangement of right knee Expected: 04/10/2023 (Approximate), Expires: 04/10/2024 [facility] Work Phone: Comment on above: Expected: 04/10/2023 (Approximate), Expi res: 04/10/2024 Start: 04-10-2023 End: 04-10-2023 Patient encounter procedure 04/10/2023 9:30 AM EST Office Visit [facility] [address] [place] [address] Valery Garcia NP [address] [place] [address] Chronic pain of right knee (Primary Dx); Arthritis of right knee [facility] Comment on above: Chronic pain of right knee (Primary Dx); Arthritis of right knee Start: 09-25-2018 Medicare Annual Wellness (AWV) Medicare Annual Wellness (AWV) [facility] Start: 11-28-1966 Urine screening for protein Diabetes: Urine Protein Screening [facility] Start: 11-28-1957 Glaucoma screening Diabetes: Retinopathy Screening [facility] Start: 1945 Hemoglobin A1c measurement Diabetes: Hemoglobin A1C [facility] Start: 1945 Screening for malignant neoplasm of colon [facility] Patient Education Gastritis (DC) Know your Meds [facility] Work Phone: Patient referral [facility] Work Phone: Renal function 2000 panel - Serum or Plasma [facility] Renal function 1999 panel - Serum or Plasma [facility] Renal function 2000 panel - Serum or Plasma [facility] Renal function 2000 panel - Serum or Plasma [facility] Renal function 2000 panel - Serum or Plasma [facility] Immunizations Immunization Date Immunization Notes Care Provider Fa cili 12-08-2022 ABRYSVO - Respirator y syncytial virus (RSV), vaccine, bivalent, protein subunit RSV prefusion F, diluent reconstituted, 0.5 mL, PF Felipe Schaefer DO Work Phone: [facility] 11-24-2022 Influenza, High-dose Seasonal, Quadrivalent, Preservative Free Felipe Schaefer DO Work Phone: [facility] 11-24-2022 influenza virus vacc ine, unspecified formulation Misael Perez MD Work Phone: [facility] [...] Work Phone: [facility] 12-31-2018 influenza, high dose seasonal, preservative-free Felipe [...] 13 valent Felipe Schaefer DO Work Phone: [facility] 01-26-2015 influenza, high dose seasonal, preservative-free Felipe Schaefer DO Work Phone: [facility] 03-15-2012 influenza virus vacc ine, whole virus Felipe Schaefer DO Work Phone: [facility] Payers Date Payer Category Payer Self-pay [id number] 2021 [facility] Health Insurance [employer] [id number] 2021 Unknown 2012 Medicare [id number]. [id number]. [id number] 1959 Medicare [id number] 2.16.840.1.475334.19 1959 Unknown [id number] 2.16.840.1.679264.19 1947 Unknown [id number] 2.16.840.1.979952.3.579.2. 593 1947 Unknown [id number] 2.16.840.1.622669.3.579.2. 593 1947 Unknown [id number] 2.16.840.1.619341.3.579.2. 593 1947 Unknown [id number] 2.16.840.1.548457.3.579.2. 593 1947 Unknown [id number] 2.16.840.1.607627.3.579.2. 593 1947 Unknown [id number] 2.16.840.1.196092.3.579.2. 593 1947 Unknown [id number] 2.16.840.1.890424.3.579.2. 593 1947 Unknown [id number] 2.16.840.1.976159.3.579.2. 128 1947 Unknown [id number] 2.16.840.1.872916.3.579.2. 128 1947 Unknown [id number] 2.16.840.1.480604.3.579.2. 128 1947 Unknown [id number] 2.16.840.1.113765.3.579.2. 128 1947 Unknown [id number] 2.16.840.1.585019.3.579.2. 128 1947 Unknown [id number] 2.16.840.1.935934.3.579.2. 128 1947 Unknown [id number] 2.16.840.1.560893.3.579.2. 128 1947 Unknown [id number] 2.16.840.1.596764.3.579.2. 1286 1947 Unknown [id number] 2.16.840.1.395721.3.579.2. 1286 1947 Unknown [id number] 2.16.840.1.339232.3.579.2. 1286 1947 Unknown [id number] 2.16.840.1.956102.3.579.2. 128 1947 Unknown [id number] 2.16.840.1.686283.3.579.2. 128 1947 Unknown [id number] 2.16.840.1.930568.3.579.2. 128 1947 Unknown [id number] 2.16.840.1.248789.3.579.2. 1258 1947 Unknown [id number] 2.16.840.1.911062.3.579.2. 125 1947 Unknown [id number] 2.16.840.1.612951.3.579.2. 125 1947 Unknown [id number] 2.16.840.1.505792.3.579.2. 125 1947 Unknown [id number] 2.16.840.1.786037.3.579.2. 125 1947 Unknown [id number] 2.16.840.1.040313.3.579.2. 125 1947 Unknown [id number] 2.16.840.1.740779.3.579.2. 125 1947 Unknown [id number] 2.16.840.1.678033.3.579.2. 125 1947 Unknown [id number] 2.16.840.1.418531.3.579.2. 125 1947 Unknown [id number] 2.16.840.1.770503.3.579.2. 125 1947 Unknown [id number] 2.16.840.1.902681.3.579.2. 1258 1947 Unknown [id number] 2.16.840.1.923081.3.579.2. 1258 1947 Unknown [id number] 2.16.840.1.378510.3.579.2. 1258 1947 Unknown [id number] 2.16.840.1.896374.3.579.2. 1258 1947 Unknown [id number] 2.16.840.1.137246.3.579.2. 1258 1947 Unknown [id number] 2.16.840.1.354266.3.579.2. 1258 1947 Unknown [id number] 2.16.840.1.274341.3.579.2. 1258 1947 Unknown [id number] 2.16.840.1.291161.3.579.2. 1258 1947 Unknown [id number] 2.16.840.1.453711.3.579.2. 1258 1947 Unknown [id number] 2.16.840.1.440415.3.579.2. 1258 1947 Unknown [id number] 2.16.840.1.800416.3.579.2. 1259 Medicare Medicare [id number] Unknown [facility] Health Claims [id number] Unknown [id number] 2.16.840.1.410275.3.579.2. 531 Unknown [id number] 2.16.840.1.777564.3.579.2. 531 Unknown [id number] 2.16.840.1.833819.3.579.2. 531 Social History Date Type Detail Facility Unknown if ever smoked [employer] Other Start: 02-22-2023 End: 12-03-2023 Sex Assigned At [facility] Start: 08-15-2022 End: 11-22-2023 Tobacco smoking status NHIS Ex-smoker [facility] End: 03-06-2007 History of tobacco use Current smoker [facility] End: 03-06-2007 History of tobacco use Cigarette Smoker [facility] Start: 08-15-2022 End: 07-27-2023 Tobacco use and exposure Smokeless tobacco non-user [facility] Start: 02-22-2023 End: 06-03-2024 Alcohol intake Ex-drinker (finding) [facility] Start: 02-22-2023 End: 12-03-2023 History of Social function [facility] Start: 1945 Sex Assigned At Not on file [facility] Start: 1945 Sex Assigned At Female [facility] Start: 08-15-2023 Tobacco smoking status [facility] Never smoked tobacco (finding) [facility] History of tobacco use Passive smoker [facility] How often do you nee d to have someone help you when you read instructions, pamphlets, or other written material from your doctor or pharmacy [SILS] Never [facility] Do you belong to any clubs or organizations such as adventism groups, unions, fraternal or athletic groups, or [...] more. Never true [facility] Start: 01-22-2024 End: 06-05-2024 Sex Female (finding) [facility] Medical Equipment Procedure Code Equipment Code Equipment Origin al Text Equipment Identifier Dates Capsule endoscopy, for patency of lumen evaluation Video capsule endoscopy system [id number] C-[id number] FDA Start: 10-30-2023 Goals Date Patient Goal Desired Activity /State Functional Status Date Assessment Result Facility 08-15-2023 Functional status Patient at Baseline [facility] Work Phone: Mental Status Date Assessment Result Facility 08-15-2023 Cognitive function Cognitive Sta tus Patient at Baseline [facility] Work Phone: Clinical Notes 03-06-2019 to 06-03-2024 Misael Perez MD - 06/03/2024 10:37 AM Fernando Perez MD - 06/03/2024 10:36 AM Fernando Perez MD - 06/03/2024 10:35 AM Fernando Perez MD - 06/03/2024 10:35 AM EDT Note Date & Type Note Facility 06-03-2024 History of Present illness Narrative Associated Problem(s): Renal cell adenocarcinoma ([facility]) Follow with specialists. Associated Problem(s): Type 2 diabetes mellitus with hyperglycemia, without long-term current use of insulin ([facility]/HCC) Not checking BS and due for A1C. Stick to ADA diet and limit carbs. Associated Problem(s): Paroxysmal atrial fibrillation ([facility]) In NSR and continue metoprolol. Loop recorder placed and follow with cardiology. Associated Problem(s): Class 2 severe obesity due to excess calories with serious comorbidity and body mass index (BMI) of 35.0 to 35.9 in adult ([facility]/HCC) Weight loss indicated. Associated Problem(s): DDD (degenerative [...] Pain stable and use percocet PRN. Dyslipidemia (CMS/HCC) Relevant Orders Lipid panel Type 2 diabetes [...] 35.9 in adult (CMS/HCC) Weight loss indicated. Paroxysmal atrial fibrillation (CMS/HCC) In NSR and continue metoprolol. Loop recorder placed and follow with cardiology. Chronic diastolic congestive heart failure (CMS/HCC) No edema and use lasix PRN. Encounter for long-term (current) use of medications Relevant Orders CBC and differential Hepatic function panel documented in this encounter [facility] 05-06-2024 Note LOOP IMPLANT PROCEDU RE NOTE DATE OF PROCEDURE: 05/06/2024 PERFORMING PHYSICIAN: Dr. Jakob Smalls CUFF SLITTER: SHABNAM INDICATIONS FOR PROCEDURE: 1. SVT/AF surveillance [...] the sternum on the left using the [employer] tool. The loop recorder was then injected [...] days. 2. Do not wet the incision. Jakob Smalls MD Cardiac Electrophysiology. [facility] 04-02-2024 Note PR Electrophysiology Consult Note PR Cardiology [facility] Reason for visit: Afib HPI: [...] Use: Not At Risk (12/03/2023) Received from [facility] AUDIT-C Frequency of Alcohol Consumption: Never Average Number of Drinks: Patient does not drink Frequency of Binge Drinking: Never Financial Resource Strain: Low Risk (12/03/2023) Received from [facility] Overall Financial Resource Strain (CARDIA) Difficulty of Paying Living Expenses: Not hard at all Food Insecurity: No Food Insecurity (12/03/2023) Received from [facility] Hunger Vital Sign Worried About Running Out of Food in the Last Year: Never true Ran Out of Food in the Last Year: Never true Transportation Needs: No Transportation Needs (12/03/2023) Received from [facility] PRAPARE - Transportation Lack of Transportation (Medical): No Lack of Transportation (Non-Medical): No Physical Activity: Insufficiently Active (12/03/2023) Received from [facility] Exercise Vital Sign Days of Exercise per Week: 2 days Minutes of Exercise per Session: 20 min Stress: No Stress Concern Present (12/03/2023) Received from [facility] [place] [facility] Occupational [facility] - Occupational Stress Questionnaire Feeling of Stress : Only a little Social Connections: Socially Isolated (12/03/2023) Received from [facility] Social Connection and Isolation Panel [NHANES] Frequency of Communication with Friends and Family: Three times a week Frequency of Social Gatherings with Friends and Family: Twice a week Attends Mu-Ism Services: Never Active Member of Clubs or Organizations: No Attends Club or Organization Meetings: Never Marital Status: Intimate Partner Violence: Not on file Depression: Not at risk (07/27/2023) Received from [facility] PHQ-2 Patient Health Questionnaire-2 Score: 0 Housing Stability: Low Risk (12/03/2023) Received from [facility], [facility] Housing Stability Vital Sign Unable to Pay for Housing in the Last Year: No Number of Times Moved in the Last Year: 0 Homeless in the Last Year: No Utilities: Not At Risk (07/19/2023) Received from [facility] [employer] [facility] Utilities Threatened with loss of utilities: No Health Literacy: Adequate Health Literacy (12/03/2023) Received from [facility], [facility] B1300 Health Literacy Frequency of need for [...] cholecalciferol, vitamin D3, (more content not included)... [facility] 03-22-2024 Note PR Cardiology - [facility] Subjective Malgorzata Simmons is [...] Amlodipine Swelling Ket (more content not included)... [facility] 01-24-2024 Note PR Cardiology - [facility] Subjective Malgorzata Simmons is a 78 y.o. year old female patient being seen to establish care and discuss LAAO. Ref from Dr. Perez. She used to see Dr. Emy Foster back in 2018, then followed with [facility] for a few years. In July [...] Fe) MG tablet (more content not included)... [facility] 01-11-2024 History of Present illness Narrative Images from the original note were not included. Chief Complaint Patient presents with Right Knee - Follow-up HISTORY OF PRESENT ILLNESS: Malgorzata Simmons is an 78 y.o. @ female. [...] Stable RT total knee replacement. 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 Status post right knee [...] develop for requiring urgent evaluation. Chery Vela HE[employer] IN[employer] INTERNSH[employer] WELDER documented in this encounter [facility] 01-02-2024 Evaluation note Diagnosis Onset Date Resolution Anemia of renal disease acute O ctober 2023 12:58pm Hyperkalemia acute December 12:58pm Hyperuricemia acute December 12:58pm Proteinuria acute January 02, 2024 12:58pm Renal cancer acute December 12:58pm Vitamin D deficiency acute Oct2023 12:58pm CKD (chronic kidney disease) stage 3, GFR 30-59 ml/min resolved January 01 12:58pm Hypertensive chronic kidney disease with stage 1 through stage 4 chronic ki resolved January 01 12:58pm Type 2 diabetes mellitus with diabetic chronic kidney disease resolved January 01 12:58pm [facility] Work Phone: 1(904) 567-915209-30-2024 History of Present illness Narrative* Misael Perez [...] who presents for Follow-up (Anemia /Episode in [place]). Follow up DM, HTN, neck pain, edema, [...] Ambulatory referral [id number] Evaluation note* Author [facility] Authored October 10, 2023 1:2 1pm [...] -Will get EGD and colonoscopy report from [facility] -Will arrange for capsule endoscopy. -Decrease pantoprazole to 40 mg daily [facility] Work Phone: 1(902) 104-316506-11-2024 Consult note Author Aleyda Collins [facility] August 15, 2023 10:24am Note Date/Time August 15, 2023 8:48 am [facility] [address] [place] [address] Nephrology Consult Note Signed Patient: Malgorzata Simmons MR#: [id number] : 1945 Acct:[id number] Age/Sex: 77 / F Adm Date: 4 Loc: Room: [address] [place] [address] Type: ADM INOo Attending Dr: Meagan Roman [...] polydipsia Dermatological: denies any itching or rash COUNTS INCLUDE 234 BEDS AT THE [facility] Medical History (Updated 08/15/23 @ 09:59 by Aleyda Collins MD) Anemia Hypertension Surgical History (Updated 08/14/23 [...] 50 Mg Tab.Er.24h) 50 mg PO DAILY [facility] Stop: 08/14/24 08:59 Oxycodone/Acetaminophen (Oxycodone/Acetaminophen 5-325 Mg Tablet) 2 tab PO [id number] PRN Reason: pain Last Admin: 08/14/23 22:37 [...] Skin: No rashes , warm to touch 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 I have reviewed the report(s) and [...] us with any question. Documented By: Aleyda Collins MD 08/15/23 0848 Signed By: <Electronically signed by Aleyda Collins MD> 08/15/[address] [place] [address] Ctr Work Phone: 1(252) 263-877106-11-2024 Consult note Author Kuldeep Almazan [facility] August 15, 2023 8:33am Note Date/Time August 15, 2023 8:14 am [facility] [address] [place] [address] Gastroenterology Consult Note Signed Patient: Malgorzata Simmons MR#: [id number] : 1945 Acct:[id number] Age/Sex: 77 / F Adm Date: 4 Loc: Room: [address] [place] [address] Type: ADM INOo Attending Dr: Meagan Roman [...] negative unless noted below or in HPI COUNTS INCLUDE 234 BEDS AT THE [facility] Medical History (Updated 08/15/23 @ 08:33 [...] tablet 1 tab PO Q6HR PRN pain 05/09/24 [History Confirmed 08/14/23] pantoprazole 40 mg tablet,delayed [...] % (Auto) 70.0 Lymph % (Auto) 19.2 [place] % (Auto) 6.8 Eos % (Auto) 3.3 Baso % (Auto) 0.7 Nucleat RBC Rel Count 0.1 Neut # (Auto) 5.4 Lymph # (Auto) 1.5 [place] # (Auto) 0.5 Eos # (Auto) 0.3 [...] Type Blood Type Recheck Antibody Screen Crossmatch ([facility]) 08/14/23 08/14/23 08/14/23 17:55 17:55 17:55 Corrected WBC Uncorrected WBC Count RBC Hgb Hct MCV MCH MCHC RDW Plt Count MPV Neut % (Auto) Lymph % (Auto) [place] % (Auto) Eos % (Auto) Baso % (Auto) Nucleat RBC Rel Count Neut # (Auto) Lymph # (Auto) [place] # (Auto) Eos # (Auto) Baso # [...] Type Blood Type Recheck Antibody Screen Crossmatch ([facility]) 08/14/23 08/14/23 08/15/23 17:55 19:59 06:32 Corrected WBC 4.9 Uncorrected WBC Count 4.9 RBC 2.97 L Hgb 8.8 L Hct 26.1 L MCV 87.6 MCH 29.5 MCHC 33.6 RDW 14.8 Plt Count 273 MPV 8.3 Neut % (Auto) 57.5 Lymph % (Auto) 26.9 [place] % (Auto) 9.7 Eos % (Auto) 5.1 Baso % (Auto) 0.8 Nucleat RBC Rel Count 0.1 Neut # (Auto) 2.8 Lymph # (Auto) 1.3 [place] # (Auto) 0.5 Eos # (Auto) 0.2 [...] Recheck A Negative Antibody Screen Negative Crossmatch ([facility]) See Detail A&P - Gastroenterology Assessment/Plan [...] signed by Kuldeep Almazan MD> 08/15/23 0833 [facility] Work Phone: 1(913) 810-774506-11-2024 [facility] History and physical note Author Meagan Roman [facility] August 14, 2023 7:50pm Note Date/Time August 14, 2023 7:50 pm [facility] [address] [place] [address] Hospitalist H&P Signed Patient: Malgorzata Simmons MR#: [id number] : 1945 Acct:[id number] Age/Sex: 77 / F Adm Date: 4 Loc: ER Room: Type: [facility] ER Attending Dr: Copies to: DO Misael Robins MD Ruta Semaskiene, MD~ HPI DATE OF EXAMINATION: 08/14/23 CHIEF COMPLAINT: abn lab work HISTORY OF PRESENT ILLNESS: 77-year old female with a history of iron deficiency anemia, of unclear etiology, history of iron infusions, status post EGD and colonoscopy in [facility], at that time showed some stomach irritation, placed on Protonix, consider due to aspirin use presented with abnormal lab. Patient has been following with international affairs vice president for single kidney, she is status post [...] Previous records in the computer system reviewed COUNTS INCLUDE 234 BEDS AT THE [facility] Medical History (Updated 08/14/23 @ 19:38 [...] % (Auto) 19.2 % (.) 08/14/23 17:55 [place] % (Auto) 6.8 % (.) 08/14/23 17:55 Eos % (Auto) 3.3 % (.) 08/14/23 17:55 Baso % (Auto) 0.7 % (.) 08/14/23 17:55 Nucleat RBC Rel Count 0.1 /100 WBC (0-0.5) 08/14/23 17:55 Neut # (Auto) 5.4 x10E3/uL (1.8-7.7) 08/14/23 17:55 Lymph # (Auto) 1.5 x10E3/uL (1.00-4.8) 08/14/23 17:55 [place] # (Auto) 0.5 x10E3/uL (0.0-0.8) 08/14/23 17:55 [...] signed by Meagan Roman MD> 08/14/23 1950 [facility] Work Phone: 1([phone] 430-664002-13-2024 Telephone encounter Note* Telephone Encounter - Misael Perez MD - 04/18/2023 3:32 PM EST Patient due for all labs and in chart. Please print order or send to lab. If print albumin needs printed separately from other labs. MAN [facility] [id number] Miscellaneous Notes* Telephone Encounter - Misael Perez MD - 04/18/2023 3:32 PM EST Patient due for all labs and in chart. Please print order or send to lab. If print albumin needs printed separately from other labs. MAN documented in [facility] encounterUniversity [facility] [id number] History of Present illness Narrative* Felipe Schaefer, [...] dated April 12, 2023 from the [facility]. There is thinning of articular cartilage and [...] documented in this encounterUniversity [facility] [id number] History of Present illness Narrative* Valery Garcia [...] knee without contrast to be done at [facility] [place], activities as tolerated, f/u s/p MRI documented [place]Lar[place] [id number] Evaluation note* Encounter Date Diagnosis Assessment Notes [...] potassium diet and provide information about it. [employer] Other 12-19-2023 Evaluation note* Encounter Date Diagnosis Assessment Notes Treatment Notes Treatment Clinical Notes Feb, Chronic kidney disease, stage 3 unspecified (ICD-10 - N18.30) Feb, Anemia in chronic kidney disease (ICD-10 - D63.1) [facility] Other 09-20-2023 Evaluation note* Encounter Date Diagnosis Assessment Notes Treatment Notes Treatment Clinical Notes Nov, Hypertensive chronic kidney disease with stage 1 through stage 4 chronic kidney disease, or unspecified chronic kidney disease (ICD-10 - I12.9) [facility] Other 08-22-2023 Evaluation note* Encounter Date Diagnosis Assessment Notes Treatment Notes Treatment Clinical Notes Oct, Hypertensive chronic kidney disease with stage 1 through stage 4 chronic kidney disease, or unspecified chronic kidney disease (ICD-10 - I12.9) [facility] Other 07-10-2023 Evaluation note* Encounter Date Diagnosis Assessment Notes Treatment Notes Treatment Clinical Notes Sep, Proteinuria (ICD-10 - R80.9) [facility] Other 06-01-2023 Evaluation note* Encounter Date Diagnosis [...] potassium diet and provide information about it. [employer] Other 01-03-2023 Evaluation note* Encounter Date Diagnosis Assessment Notes Treatment Notes Treatment Clinical Notes Mar, Proteinuria (ICD-10 - R80.9) [employer] Other 11-10-2022 Evaluation note* Encounter Date Diagnosis [...] No need for any medication for now. [employer] Other 07-05-2022 Evaluation note* Encounter Date Diagnosis Assessment Notes Treatment Notes Treatment Clinical Notes Sep, Hypertensive chronic kidney disease with stage 1 through stage 4 chronic kidney disease, or unspecified chronic kidney disease (ICD-10 - I12.9) [employer] Other 04-04-2022 Evaluation note* Encounter Date Diagnosis Assessment Notes Treatment Notes Treatment Clinical Notes Jun, Proteinuria (ICD-10 - R80.9) [employer] Other 01-04-2022 Evaluation note* Encounter Date Diagnosis Assessment Notes Treatment Notes Treatment Clinical Notes Mar, Hypertensive chronic kidney disease with stage 1 through stage 4 chronic kidney disease, or unspecified chronic kidney disease (ICD-10 - I12.9) [employer] Other 11-24-2021 Evaluation note* Encounter Date Diagnosis Assessment Notes Treatment Notes Treatment Clinical Notes Jan, Hypertensive chronic kidney disease with stage 1 through stage 4 chronic kidney disease, or unspecified chronic kidney disease (ICD-10 - I12.9) [facility] Other 10-07-2021 Evaluation note* Encounter Date Diagnosis [...] (ICD-10 - E55.9) Continue oral Vit D [employer] Other 01-01-2020 Evaluation note* Author [facility] Authored October 10, 2023 1:2 1pm [...] -Will get EGD and colonoscopy report from [facility] -Will arrange for capsule endoscopy. -Decrease pantoprazole to 40 mg daily [facility] Work Phone: Evaluation noteNo InformationNort [employer] Other Evaluation note* Diagnosis Chronic pain of [...] injury, initial encounter documented in this encounter [facility] HealthcareEvaluation note* Diagnosis Dyslipidemia ([facility])- Primary Other and unspecified hyperlipidemia Vitamin D deficiency Type 2 diabetes mellitus with hyperglycemia, without long-term current use of insulin ([facility]) Encounter for long-term current use of medication Obesity (BMI 30-39.9) documented in this encounter [facility] HealthcareEvaluation note* Diagnosis Onset Date Resolution Status Anemia of renal disease acut e CKD (chronic kidney disease) stage 3, GFR 30-59 ml/min acute Hyperkalemia acute [id number] acute Hyperuricemia acute Proteinuria acute Renal cancer acute Type 2 diabetes mellitus wit h diabetic chronic kidney disease acute Vitamin D deficiency acute [facility] Work Phone: Evaluation note* Diagnosis Onset Date Resolution Status Anemia of renal disease acut e CKD (chronic kidney disease) stage 3, GFR 30-59 ml/min acute Hyperkalemia acute [id number] acute Hyperuricemia acute Proteinuria acute Renal cancer acute Type 2 diabetes mellitus wit h diabetic chronic kidney disease acute Vitamin D deficiency acute Anemia of renal disease acut e CKD (chronic kidney disease) stage 3, GFR 30-59 ml/min acute [id number] acute Type 2 diabetes mellitus wit h diabetic chronic kidney disease acute Acute blood loss anemia acut e Anemia acute CKD (chronic kidney disease) stage 3, GFR 30-59 ml/min acute Gastritis with bleeding acut e [id number] acute Occult blood positive stool acute Type 2 diabetes mellitus wit h diabetic chronic kidney disease acute [facility] Work Phone: Evaluation note* Diagnosis Onset Date Resolution Status Anemia of renal disease acut e CKD (chronic kidney disease) stage 3, GFR 30-59 ml/min acute Hyperkalemia acute [id number] acute Hyperuricemia acute Proteinuria acute Renal cancer acute Type 2 diabetes mellitus wit h diabetic chronic kidney disease acute Vitamin D deficiency acute Anemia of renal disease acut e CKD (chronic kidney disease) stage 3, GFR 30-59 ml/min acute [id number] acute Type 2 diabetes mellitus wit h diabetic chronic kidney disease acute Acute blood loss anemia acut e Anemia acute CKD (chronic kidney disease) stage 3, GFR 30-59 ml/min acute Gastritis with bleeding acut e [id number] acute Occult blood positive stool acute Type 2 diabetes mellitus wit h diabetic chronic kidney disease acute Anemia of renal disease acut e CKD (chronic kidney disease) stage 3, GFR 30-59 ml/min acute Hyperkalemia acute [id number] acute Hyperuricemia acute Proteinuria acute Renal cancer acute Type 2 diabetes mellitus wit h diabetic chronic kidney disease acute Vitamin D deficiency acute [facility] Work Phone: Evaluation note* Diagnosis Onset Date Resolution Status Anemia of renal disease acut e CKD (chronic kidney disease) stage 3, GFR 30-59 ml/min acute Hyperkalemia acute [id number] acute Hyperuricemia acute Proteinuria acute Renal cancer acute Type 2 diabetes mellitus wit h diabetic chronic kidney disease acute Vitamin D deficiency acute Anemia of renal disease acut e CKD (chronic kidney disease) stage 3, GFR 30-59 ml/min acute [id number] acute Type 2 diabetes mellitus wit h diabetic chronic kidney disease acute Anemia acute Kidney disease acute Occult blood positive stool acute [facility] Work Phone: Evaluation note* Diagnosis Onset Date Resolution Status Anemia of renal disease acut e Hyperkalemia acute Hyperuricemia acute Proteinuria acute Renal cancer acute Vitamin D deficiency acute CKD (chronic kidney disease) stage 3, GFR 30-59 ml/min resolved [id number] resolved Type 2 diabetes mellitus wit h diabetic chronic kidney disease resolved Anemia of renal disease acut e CKD (chronic kidney disease) stage 3, GFR 30-59 ml/min resolved [id number] resolved Type 2 diabetes mellitus wit h diabetic chronic kidney disease resolved Acute blood loss anemia reso lved Anemia resolved CKD (chronic kidney disease) stage 3, GFR 30-59 ml/min resolved Gastritis with bleeding reso lved [id number] resolved Occult blood positive stool resolved Type 2 diabetes mellitus wit h diabetic chronic kidney disease resolved Anemia of renal disease acut e Hyperkalemia acute Hyperuricemia acute Proteinuria acute Renal cancer acute Vitamin D deficiency acute CKD (chronic kidney disease) stage 3, GFR 30-59 ml/min resolved [id number] resolved Type 2 diabetes mellitus wit h diabetic chronic kidney disease resolved Anemia of renal disease acut e Hyperkalemia acute Hyperuricemia acute Proteinuria acute Renal cancer acute Vitamin D deficiency acute CKD (chronic kidney disease) stage 3, GFR 30-59 ml/min resolved [id number] resolved Type 2 diabetes mellitus wit h diabetic chronic kidney disease resolved [facility] Work Phone: Evaluation note* Diagnosis Type [...] of right knee documented in this encounter [facility] HealthcareEvaluation note* Diagnosis Type 2 diabetes mellitus [...] cervical intervertebral disc documented in this encounter [facility] HealthcareEvaluation note* Diagnosis Type 2 diabetes mellitus with hyperglycemia, without long-term current use of insulin (CMS/HCC)- Primary Benign essential hypertension (CMS/HCC) Essential hypertension, benign DDD (degenerative disc disease), cervical Degeneration of cervical intervertebral disc Paroxysmal atrial fibrillation (CMS/HCC) Atrial fibrillation Chronic diastolic congestive heart failure (CMS/HCC) Chronic superficial 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 Renal cell carcinoma, unspecified laterality (CMS/HCC) documented in this encounter [facility] HealthcareEvaluation note* Diagnosis Type 2 diabetes mellitus [...] of both feet documented in this encounter [facility] HealthcareEvaluation note* Diagnosis Type 2 diabetes mellitus [...] bleeding Renal cell carcinoma, unspecified laterality (CMS/HCC) Type 2 diabetes mellitus with hyperglycemia, without long-term current use of insulin (CMS/HCC)- Primary Benign essential hypertension (CMS/HCC) Essential hypertension, benign Chronic diastolic congestive heart failure (CMS/HCC) Paroxysmal atrial fibrillation (CMS/HCC) Atrial fibrillation DDD (degenerative disc disease), cervical Degeneration of cervical intervertebral disc Chronic superficial 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 Stage 3b chronic kidney disease (CKD) (CMS/HCC) Vitamin D deficiency Dyslipidemia (CMS/HCC) Other and unspecified hyperlipidemia Encounter for long-term (current) use of medications Encounter for long-term (current) use of other medications Obesity (BMI 30-39.9) Class 2 severe obesity due to excess calories with serious comorbidity and body mass index (BMI) of 35.0 to 35.9 in adult ([facility]) Renal cell carcinoma, unspecified laterality ([facility]) Type 2 diabetes mellitus with diabetic chronic kidney disease ([facility]) documented in this encounter [facility] HealthcareEvaluation note* Diagnosis Type 2 diabetes mellitus with hyperglycemia, without long-term current use of insulin ([facility])- Primary Benign essential hypertension ([facility]/HCC) Essential hypertension, benign Pre-op evaluation Primary osteoarthritis [...] hyperglycemia, without long-term current use of insulin ([facility]/HCC) Benign essential hypertension (CMS/HCC) Essential hypertension, benign [...] hyperglycemia, without long-term current use of insulin ([facility]/HCC) Paresthesia of both feet Stage 3b chronic kidney disease (CKD) ([facility]/HCC) Type 2 diabetes mellitus with stage 3b chronic kidney disease, without long-term current use of insulin (HCC) ([facility]/HCC) Type 2 diabetes mellitus with hyperglycemia, without long-term current use of insulin ([facility]/HCC)- Primary Benign essential hypertension ([facility]/HCC) Essential hypertension, benign DDD (degenerative disc disease), cervical Degeneration of cervical intervertebral disc Paroxysmal atrial fibrillation (CMS/HCC) Atrial fibrillation Chronic diastolic congestive heart failure (CMS/HCC) Chronic superficial 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 Renal cell carcinoma, unspecified laterality ([facility]/HCC) Type 2 diabetes mellitus with hyperglycemia, without long-term current use of insulin ([facility]/HCC)- Primary Benign essential hypertension (CMS/HCC) Essential hypertension, benign Chronic diastolic congestive heart failure (CMS/HCC) Paroxysmal atrial fibrillation ([facility]/HCC) Atrial fibrillation DDD (degenerative disc disease), cervical Degeneration of cervical intervertebral disc Chronic superficial 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 Stage 3b chronic kidney disease (CKD) ([facility]/HCC) Vitamin D deficiency Dyslipidemia ([facility]/HCC) Other and unspecified hyperlipidemia Encounter for long-term (current) use of medications Encounter for long-term (current) use of other medications Obesity (BMI 30-39.9) Class 2 severe obesity due to excess calories with serious comorbidity and body mass index (BMI) of 35.0 to 35.9 in adult ([facility]/HCC) Renal cell carcinoma, unspecified laterality ([facility]/HCC) Type 2 diabetes mellitus with diabetic chronic kidney disease ([facility]) Paresthesia of both feet documented in this encounter [facility] HealthcareEvaluation noteNo assessment information [facility] Work Phone: History and physical note Author Meagan Roman [facility] August 14, 2023 7:50pm Note Date/Time August 14, 2023 7:50 pm [facility] [address] [place] [address] Hospitalist H&P Signed Patient: Malgorzata iSmmons MR#: [id number] : 1945 Acct:[id number] Age/Sex: 77 / F Adm Date: 4 Loc: ER Room: Type: [facility] ER Attending Dr: Copies to: DO Misael Robins MD Ruta Semaskiene, MD~ HPI DATE OF EXAMINATION: 08/14/23 CHIEF COMPLAINT: abn lab work HISTORY OF PRESENT ILLNESS: 77-year old female with a history of iron deficiency anemia, of unclear etiology, history of iron infusions, status post EGD and colonoscopy in [facility], at that time showed some stomach irritation, placed on Protonix, consider due to aspirin use presented with abnormal lab. Patient has been following with international affairs vice president for single kidney, she is status post [...] Previous records in the computer system reviewed COUNTS INCLUDE 234 BEDS AT THE [facility] Medical History (Updated 08/14/23 @ 19:38 [...] % (Auto) 19.2 % (.) 08/14/23 17:55 [place] % (Auto) 6.8 % (.) 08/14/23 17:55 Eos % (Auto) 3.3 % (.) 08/14/23 17:55 Baso % (Auto) 0.7 % (.) 08/14/23 17:55 Nucleat RBC Rel Count 0.1 /100 WBC (0-0.5) 08/14/23 17:55 Neut # (Auto) 5.4 x10E3/uL (1.8-7.7) 08/14/23 17:55 Lymph # (Auto) 1.5 x10E3/uL (1.00-4.8) 08/14/23 17:55 [place] # (Auto) 0.5 x10E3/uL (0.0-0.8) 08/14/23 17:55 [...] signed by Meagan Roman MD> 08/14/23 1950 [facility] Work Phone: History general Narrative - [...] vein ligation 2019 Hospitalization History SEE ABOVE [facility] Other History general Narrative - Reported* Type [...] METABOLIC ENCEPHALOPATHY, COMPLICATED URINARY TRACT INFECTION 11/21/2022 [facility] Other [facility] general Narrative - Reported* Type Description Date [...] METABOLIC ENCEPHALOPATHY, COMPLICATED URINARY TRACT INFECTION 11/21/2022 [facility] [employer] Other Reason for referral (narrative)* Consultation (Routine) - Pending Review Specialty Diagnoses / Procedures Referred By Ewelina irvin Referred To Contact Cardiology Diagnoses Paroxysmal atrial fibrillation (CMS/HCC) Chronic diastolic congestive heart failure (CMS/HCC) Procedures DC OFFICE/OUTPATIENT [facility] 60 MINUTES Misael Perez MD [address] [place] [address] Marvin Rangel MD [address] [place] [address] Referral ID Status Reason Start Date Expiration Date Visits Requested Visits Authorized [id number] Pending Review Specialty Services Required 12/04/2023 06/01/2024 [...] Procedures MR knee right wo IV contrast Jose, Valery Ayala NP [address] [place] [address] Referral ID Status Reason Start Date Expiration Date V isits Requested Visits Authorized [id number] Pending Review 04/10/2023 10/07/2023 1 1 Chief Complaint and Reason for Visit Chief Complaint RENAL F/U Reason for Visit Anemia of renal dise ase CKD (chronic kidney disease) stage 3, GFR 30-59 ml/min Hyperkalemia [id number] Hyperuricemia Proteinuria Renal cancer Type 2 diabetes mellitus with diabetic chronic kidney disease Vitamin D deficiency Chief Complaint RENAL F/U RENAL INJ PROCRIT / NURSE Hemoglobin is low per Dr Hemoglobin is low per Dr Hemoglobin is low per Dr Reason for Visit Anemia of renal dise ase CKD (chronic kidney disease) stage 3, GFR 30-59 ml/min Hyperkalemia [id number] Hyperuricemia Proteinuria Renal cancer Type 2 diabetes mellitus with diabetic chronic kidney disease Vitamin D deficiency Anemia of renal disease CKD (chronic kidney disease) stage 3, GFR 30-59 ml/min [id number] Type 2 diabetes mellitus with diabetic chronic kidney disease Acute blood loss anemia Anemia CKD (chronic kidney disease) stage 3, GFR 30-59 ml/min Gastritis with bleeding [id number] Occult blood positive stool Type 2 diabetes mellitus with diabetic chronic kidney disease Chief Complaint RENAL F/U RENAL INJ PROCRIT / NURSE Hemoglobin is low per Dr Hemoglobin is low per Dr Hemoglobin is low per Dr RENAL 1 MONTH / HOSP F/U Reason for Visit Anemia of renal dise ase CKD (chronic kidney disease) stage 3, GFR 30-59 ml/min Hyperkalemia [id number] Hyperuricemia Proteinuria Renal cancer Type 2 diabetes mellitus with diabetic chronic kidney disease Vitamin D deficiency Anemia of renal disease CKD (chronic kidney disease) stage 3, GFR 30-59 ml/min [id number] Type 2 diabetes mellitus with diabetic chronic kidney disease Acute blood loss anemia Anemia CKD (chronic kidney disease) stage 3, GFR 30-59 ml/min Gastritis with bleeding [id number] Occult blood positive stool Type 2 diabetes mellitus with diabetic chronic kidney disease Anemia of renal disease CKD (chronic kidney disease) stage 3, GFR 30-59 ml/min Hyperkalemia [id number] Hyperuricemia Proteinuria Renal cancer Type 2 diabetes mellitus with diabetic chronic kidney disease Vitamin D deficiency Chief Complaint RENAL F/U RENAL INJ PROCRIT / NURSE Hemoglobin is low per Dr Reason for Visit Anemia of renal dise ase CKD (chronic kidney disease) stage 3, GFR 30-59 ml/min Hyperkalemia [id number] Hyperuricemia Proteinuria Renal cancer Type 2 diabetes mellitus with diabetic chronic kidney disease Vitamin D deficiency Anemia of renal disease CKD (chronic kidney disease) stage 3, GFR 30-59 ml/min [id number] Type 2 diabetes mellitus with diabetic chronic [...] kidney disease) stage 3, GFR 30-59 ml/min [id number] Type 2 diabetes mellitus with diabetic chronic kidney disease Anemia of renal disease CKD (chronic kidney disease) stage 3, GFR 30-59 ml/min [id number] Type 2 diabetes mellitus with diabetic chronic kidney disease Acute blood loss anemia Anemia CKD (chronic kidney disease) stage 3, GFR 30-59 ml/min Gastritis with bleeding [id number] Occult blood positive stool Type 2 diabetes mellitus with diabetic chronic kidney disease Anemia of renal disease Hyperkalemia Hyperuricemia Proteinuria Renal cancer Vitamin D deficiency CKD (chronic kidney disease) stage 3, GFR 30-59 ml/min [id number] Type 2 diabetes mellitus with diabetic chronic kidney disease Anemia of renal disease Hyperkalemia Hyperuricemia Proteinuria Renal cancer Vitamin D deficiency CKD (chronic kidney disease) stage 3, GFR 30-59 ml/min [id number] Type 2 diabetes mellitus with diabetic chronic [...] kidney disease) stage 3, GFR 30-59 ml/min [id number] Type 2 diabetes mellitus with diabetic chronic kidney disease Anemia of renal disease CKD (chronic kidney disease) stage 3, GFR 30-59 ml/min [id number] Type 2 diabetes mellitus with diabetic chronic kidney disease Acute blood loss anemia Anemia CKD (chronic kidney disease) stage 3, GFR 30-59 ml/min Gastritis with bleeding [id number] Occult blood positive stool Type 2 diabetes mellitus with diabetic chronic kidney disease Anemia of renal disease Hyperkalemia Hyperuricemia Proteinuria Renal cancer Vitamin D deficiency CKD (chronic kidney disease) stage 3, GFR 30-59 ml/min [id number] Type 2 diabetes mellitus with diabetic chronic kidney disease Anemia of renal disease Hyperkalemia Hyperuricemia Proteinuria Renal cancer Vitamin D deficiency CKD (chronic kidney disease) stage 3, GFR 30-59 ml/min [id number] Type 2 diabetes mellitus with diabetic chronic kidney disease Chief Complaint Hemoglobin is low pe r Hemoglobin is low per Dr Hemoglobin is low per RENAL 1 MONTH / HOSP F/U RENAL 1 MONTH F/U follow up scope KLEBER due to Chronic blood loss Reason for Visit Acute blood loss ane prabha Anemia CKD (chronic kidney disease) stage 3, GFR 30-59 ml/min Gastritis with bleeding [id number] Occult blood positive stool Type 2 diabetes mellitus with diabetic chronic kidney disease Anemia of renal disease Hyperkalemia Hyperuricemia Proteinuria Renal cancer Vitamin D deficiency CKD (chronic kidney disease) stage 3, GFR 30-59 ml/min [id number] Type 2 diabetes mellitus with diabetic chronic kidney disease Anemia of renal disease Hyperkalemia Hyperuricemia Proteinuria Renal cancer Vitamin D deficiency CKD (chronic kidney disease) stage 3, GFR 30-59 ml/min [id number] Type 2 diabetes mellitus with diabetic chronic kidney disease Chief Complaint follow up scope KLEBER due to Chronic blood loss RENAL 3 MONTH F/U Reason for Visit Anemia of renal dise ase Hyperkalemia Hyperuricemia Proteinuria Renal cancer Vitamin D deficiency CKD (chronic kidney disease) stage 3, GFR 30-59 ml/min [id number] Type 2 diabetes mellitus with diabetic chronic [...] chronic kidney disease January 02, 2024 12:58pm Chief Complaint Admit Date Unknown June 03, 2024 11: 24am Additional Source Comments INFORMATION SOURCE (unrecogn ized section and content) DATE CREATED AUTHOR 10/28/2017 [facility] DATE CREATED AUTHOR AUTHOR'S ORGANIZ ATION 07/21/2019 [facility] DATE CREATED AUTHOR AUTHOR'S ORGANIZ ATION 04/29/2022 [facility] DATE CREATED AUTHOR AUTHOR'S ORGANIZ ATION 09/22/2023 [facility] DATE CREATED AUTHOR AUTHOR'S ORGANIZ ATION 03/05/2024 [facility] DATE CREATED AUTHOR AUTHOR'S ORGANIZ ATION 05/29/2024 [facility] DATE CREATED AUTHOR AUTHOR'S ORGANIZ ATION 06/03/2024 [facility] Special[facility] EPIC REASON FOR VISIT (unrecogniz ed section and content) Reason Comments Pain Reason Comments Follow-up Reason Onset Date Comments Med Refill 01/23/2024 Reason Comments Follow-up Anemia Episode in [place] Reason Onset Date Comments Med Refill 02/29/2024 Reason Onset Date Comments Med Refill 03/12/2024 Reason Onset Date Comments Med Refill 05/01/2024 Reason Comments Follow-up 6m Reason Onset Date Comments Med Refill 06/04/2024 Care Teams (unrecognized sec tion and content) [...] Active S tart: December 26, 2023 Aleyda Collins MD Attending Provider Active Start : December 26, 2023 Team Status: Inactive Member Role Status Dates Misael Perez MD Primary Care Provider Active S tart: January 02, 2024 End: January 02, 2024 Aleyda Collins MD Attending Provider Active Start : January 02, 2024 End: January 02, 2024 Team Status: Active Member Role Status Dates Misael Perez MD Primary Care Provider Active S tart: August 14, 2023 Aleyda Collins MD Attending Provider Active Start : August [...] Start: Aug End: August 15, 2023 Aleyda Collins MD Other Provider Active Start: 2023 End: [...] 15, 2023 End: August 15, 2023 Aleyda Collins MD Other Provider Active Start: 2023 End: [...] Start: Aug End: August 15, 2023 Aleyda Collins MD Attending Provider, Other Provider Ac tive Start: August 15, 2023 End: August 15, 2023 Team Status: Inactive Member Role Status Dates Aleyda Collins MD Attending Provider Active Start : August [...] 25, 2023 End: September 25, 2023 Aleyda Collins MD Attending Provider Active Start : September 25, 2023 End: September 25, 2023 Team Status: Inactive Member Role Status Dates Yan Ramos DO Primary Care Provider Active Start: July 13, 2023 End: July 13, 2023 Aleyda Collins MD Attending Provider Active Start : July 13, 2023 End: July 13, 2023 Team Status: Inactive Member Role Status Dates Yan Ramos DO Primary Care Provider Active Start: July 18, 2023 End: July 18, 2023 Aleyda Collins MD Attending Provider Active Start : July 18, 2023 End: July 18, 2023 Team Status: Active Member Role Status Dates Yan Ramos DO Primary Care Provider Active Start: July 06, 2023 Aleyda Collins MD Attending Provider Active Start : July [...] Act kristi Start: August 15, 2023 Aleyda Collins MD Other Provider Active Start: 2023 Team Status: Active Member Role Status Dates Misael Perez MD Primary Care Provider Active S tart: August 15, 2023 Liliana Kaba DO Emergency Provider Active Sta rt: August 15, 2023 Meagan Roman MD Admit Provider, Other Provider Ac tive Start: August 15, 2023 Kuldeep Almazan MD Other Provider Active Start: Aug Aleyda Collins MD Attending Provider, Other Provider Ac tive Start: August 15, 2023 Light Fixture Servicer Relationship Specialty Start Date End Date Misael Perez MD [address] [place] [address] PCP - General Family Medicine 04/06/23 Light Fixture Servicer Relationship Specialty Start Date End Date Misael Perez MD [address] [place] [phone] PCP - General Family Medicine 04/06/23 Light Fixture Servicer Relationship Specialty Start Date End Date Misael Perez MD [address] [place] [phone] PCP - General Family Medicine 04/06/23 Light Fixture Servicer Relationship Specialty Start Date End Date Misael Perez MD [address] [place] [phone] PCP - General Family Medicine 04/06/23 Light Fixture Servicer Relationship Specialty Start Date End Date Misael Perez MD [address] [place] [phone] PCP - General Family Medicine 04/06/23 Team Status: Active Member Role Status Dates Yan Ramos DO Primary Care Provider Active Team Status: Active Member Role Status Dates Misael Perez MD Primary Care Provider Active S tart: August 14, 2023 Liliana Kaba DO Emergency Provider Active Sta rt: August 14, 2023 Meagan Roman MD Admit Provider, Attending Provide r Active Start: August 14, 2023 Light Fixture Servicer Relationship Specialty Start Date End Date Misael Perez MD [address] [place] [phone] PCP - General Family Medicine 04/06/23 Light Fixture Servicer Relationship Specialty Start Date End Date Misael Perez MD [address] [place] [phone] PCP - General Family Medicine 04/06/23 Light Fixture Servicer Relationship Specialty Start Date End Date Misael Perez MD [address] [place] [phone] PCP - General Family Medicine 04/06/23 Team Status: Inactive Member Role Status Dates Misael Perez MD Primary Care Provider Active S tart: November 22, 2023 End: November 22, 2023 Kuldeep Almazan MD Attending Provider Active Start: November 22, 2023 End: November 22, 2023 Light Fixture Servicer Relationship Specialty Start Date End Date Misael Perez MD [address] [place] [phone] PCP - General Family Medicine 04/06/23 Light Fixture Servicer Relationship Specialty Start Date End Date Misael Perez MD [address] [place] [phone] PCP - General Family Medicine 04/06/23 Light Fixture Servicer Relationship Specialty Start Date End Date Misael Perez MD [address] [place] [phone] PCP - General Family Medicine 04/06/23 Light Fixture Servicer Relationship Specialty Start Date End Date Misael Perez MD [address] [place] [phone] PCP - General Family Medicine 04/06/23 Light Fixture Servicer Relationship Specialty Start Date End Date Misael Perez MD [address] [place] [phone] PCP - General Family Medicine 04/06/23 Light Fixture Servicer Relationship Specialty Start Date End Date Misael Perez MD [address] [place] [address] PCP - General Family Medicine 04/06/23 Misael Perez MD [address] [place] [phone] PCP - ACO Reach 04/12/24 Light Fixture Servicer Relationship Specialty Start Date End Date Misael Perez MD [address] [place] [phone] PCP - General Family Medicine 04/06/23 Misael Perez MD [address] [place] [phone] PCP - ACO Reach 04/12/24 Light Fixture Servicer Relationship Specialty Start Date End Date Misael Perez MD [address] [place] [phone] PCP - General Family Medicine 04/06/23 Misael Perez MD [address] [place] [phone] PCP - ACO Reach 04/12/24 Light Fixture Servicer Relationship Specialty Start Date End Date Misael Perez MD [address] [place] [phone] PCP - General Family Medicine 04/06/23 Misael Perez MD [address] [place] [phone] PCP - ACO Reach 04/12/24 Light Fixture Servicer Relationship Specialty Start Date End Date Naderer, Misael, MD [address] [place] [address] PCP - General Family Medicine 04/06/23 Misael Perez MD [address] [place] [phone] PCP - ACO Reach 04/12/24 Team Status: Inactive Member Role Status Dates Kuldeep Almazan MD Attending Provider Active Start: June 03, 2024 End: June 03, 2024 Goals (unrecognized section and content) Goals may [...] BE BASED ON THE PRIMARY CLINICAL RECORDS. [employer] provides no warranty or guarantee of the accuracy or completeness of information in this document.
[2024-06-09 03:23] LABS: Calprotectin, Fecal 135 ug/g (0-120)
== END 2024-06-05 19:07 | disposition home or self-care (01) ==
LOC: LAB 19:06
PROVIDERS: PCP Family Medicine; Visit Provider Internal Medicine
DX: R19.7 Diarrhea, unspecified (principal)
CPT/HCPCS: 83993; 87493

== ENCOUNTER 2024-07-16 12:15 | Outpatient (OUT) | payer MEDICARE, OTHER, SELFPAY ==
[2024-07-16 12:48] LABS: Hematocrit 30.5 % (36.0-48.0); Hemoglobin 9.6 g/dL (12.0-16.0); Mean Corpuscular HGB Conc 31.5 g/dL (29.9-35.2); Mean Corpuscular Hemoglobin 29.8 pg (26.7-34.0); Mean Corpuscular Volume 94.7 fL (81.0-99.0); Mean Platelet Volume 10.3 fL (9.5-13.5); Platelet Count 189 10^3/uL (150-450); Red Blood Count 3.22 10^6/uL (4.20-5.40); Red Cell Distribution Width 12.5 % (11.0-15.0); White Blood Count 5.9 10^3/uL (4.0-11.0)
[2024-07-16 13:26] LABS: Albumin Level 4.1 g/dL (3.4-5.0); Anion Gap 14.8; BUN Creatinine Ratio 21.8; Calcium 9.1 mg/dL (8.5-10.1); Carbon Dioxide 25.6 mmol/L (21.0-32.0); Chloride 107 mmol/L (98-107); Estimated GFR (African America 39 (>=60 mL/min/1.73m^2); Estimated GFR (Non-African Ame 32 (>=60 mL/min/1.73m^2); Glucose 91 mg/dL (74-106); Phosphorus 3.5 mg/dL (2.6-4.7); Potassium 5.4 mmol/L (3.5-5.1); Sodium 142 mmol/L (136-145)
[2024-07-16 13:28] LABS: Creatinine Urine Random 42.86 mg/dL (20.00-300.00); Total Protein Urine Random <6.0 mg/dL (<=11.9)
[2024-07-16 13:36] LABS: Bilirubin Urine NEGATIVE (NEGATIVE); Blood Urine NEGATIVE (NEGATIVE); Clarity Urine CLEAR (CLEAR); Color Urine LT. YELLOW (YELLOW); Glucose Urine UA NEGATIVE (NEGATIVE); Ketones Urine NEGATIVE (NEGATIVE); Leukocyte Esterase Urine TRACE (NEGATIVE); Nitrite Urine NEGATIVE (NEGATIVE); Protein Urine NEGATIVE (NEG/TRACE); Specific Gravity Urine <=1.005 (1.005-1.025); Urobilinogen Urine 0.2 EU/dL (0.2-1.0)
[2024-07-16 14:46] LABS: Bacteria Urine TRACE #/HPF (NONE SEEN); Cast Seen? NONE SEEN #/LPF (NONE SEEN); Crystals Seen? None Seen #/HPF (None Seen); Mucus Urine NONE SEEN (NONE SEEN); RBC Urine NONE SEEN #/HPF (0-2); Squamous Epithelial Cell Urine RARE #/LPF (NONE/RARE); WBC Urine 0-2 #/HPF (NONE SEEN)
[2024-07-17 11:08] LABS: PTH, Intact 124 pg/mL (15-65)
== END 2024-07-16 12:16 | disposition home or self-care (01) ==
LOC: LAB 12:20
PROVIDERS: PCP Family Medicine; Visit Provider Internal Medicine
DX: E79.0 Hyperuricemia without signs of inflammatory arthritis and tophaceous disease (principal); E87.5 Hyperkalemia; E55.9 Vitamin D deficiency, unspecified; C64.9 Malignant neoplasm of unspecified kidney, except renal pelvis; R80.9 Proteinuria, unspecified; N18.9 Chronic kidney disease, unspecified
CPT/HCPCS: 36415; 80069; 81001; 82306; 82570; 82728; 83540; 83550; 83735; 83970; 84156; 84550; 85027

== ENCOUNTER 2024-12-30 11:15 | Outpatient (OUT) | payer MEDICARE, OTHER, SELFPAY ==
--- OUTSIDE RECORDS SUMMARY | 2024-12-24 08:30 | XMS_ITS | Encounter Summary ---
Author Organization [facility] Address [address] [place] [address] Care Team Providers Care Airport Duty Manager Name Role Phone Misael Antoine MD Primary Care Provider [phone] Encounter Details DateTypeDepartmentCare Team (Latest Contact Info)Bcqsnuaucjl76/21/2025 8:30 AM EDTAncillary Procedure [facility] [address] [place] [address] Awareness of heartbeats Social History Tobacco UseTypesPacks/DayYears UsedDateSmoking Tobacco: FormerCigarettes Smokeless Tobacco: NeverAlcohol UseStandard Drinks/WeekCommentsNot Currently0 (1 standard drink = 0.6 oz pure alcohol)CommentsNoSex and Gender InformationValueDate RecordedSex Assigned at DlitdUmcjwa64/17/2025 8:36 PM EDT Legal BrzAmfrea62/29/2022 10:06 PM EDTGender YhbrhgqcUonavv04/17/2025 8:36 PM EDTSexual OrientationHeterosexual or Feiowzwj21/17/2025 8:36 PM EDTdocumented as of this encounter Plan of Treatment Not on file documented as of this encounter Procedures Procedure NamePriorityDate/TimeAssociated DiagnosisCommentsCARDIAC DEVICE CHECK CHECK - SPOGIVYsiltpb49/17/2025 12:42 PM EDT Awareness of heartbeats documented in this encounter Results * CARDIAC DEVICE CHECK - REMOTE - LOOP RECORDER (ILR) (12/20/2024 12:42 PM EDT) Specimen (Source)Anatomical Location / LateralityCollection Method / Volume Collection TimeReceived Time Narrative Authorizing ProviderResult TypeResult StatusPaul Mukund MDCV IMPLANTABLE CARDIAC DEVICE PROCEDURESFinal ResultPerforming OrganizationAddressCity/State/ZIP Code Phone Number CPACS documented in this encounter Visit Diagnoses Diagnosis Awareness of heartbeats documented in this encounter Care Teams Team MemberRelationshipSpecialtyStart DateEnd Date Misael Antoine MD [address] [place] [address] PCP - GeneralFamily Medicine12/04/23documented as of this encounter
--- OUTSIDE RECORDS SUMMARY | 2024-12-30 11:20 | XMS_ITS | Clinical Summary ---
Author Organization [facility] Address [address] [place] [address] Care Team Providers Care Security Delivery Specialist Name Role Phone Misael Antoine MD Primary Care Provider Allergies Active AllergyReactionsCriticalityNoted NebyYfwxbdqxAhbvosdkxeRqsuwhlo98/17/2025 KetorolacOther,Rash,CogcjfqLns98/26/2019 Other Reaction(s): Facial Swelling LatexOther,Rash,YjmcpkmAci13/23/2014Nsaids (Non-Steroidal Anti-Inflammatory Drug)Other,Rash,BkyfxpeaPux47/26/2019 Medications MedicationSigDispense QuantityRefillsLast FilledStart DateEnd DateStatus alendronate (Fosamax) 70 mg tablet Take 70 mg by mouth every 7 (seven) days.08/24/2017Active pantoprazole (ProtoNix) 40 mg EC tablet Take 1 tablet by mouth 1 (one) time each day.10/10/2023ctive atorvastatin (Lipitor) 10 mg tablet Take 10 mg by mouth at bedtime.10/12/2018Active cholecalciferol, vitamin D3, 50 mcg (2,000 unit) capsule 1 capsule.Active furosemide (Lasix) 40 mg tablet Take 40 mg by mouth in the morning.01/02/2023ctive ferrous sulfate 325 (65 Fe) MG tablet Take 1 tablet by mouth in the morning.Active gabapentin (Neurontin) 100 mg capsule Take 100 mg by mouth three times daily.08/14/2023ctive oxyCODONE-acetaminophen (Percocet) 5-325 mg tablet Take 1 tablet as needed by oral route for 30 days.Active lisinopril 5 mg tablet Take 5 mg by mouth in the morning.12/07/2023ctive coenzyme Q-10 100 mg capsule Take 100 mg by mouth in the morning.Active carvedilol (Coreg) 12.5 mg tablet Indications:Primary hypertensionTake 1 tablet (12.5 mg) by mouth with breakfast and with evening meal. 180 tablet 5Active omeprazole (PriLOSEC) [address] capsule Take 40 mg by mouth before breakfast. Do not crush or chew.Active Active Problems ProblemNoted DateDiagnosed FrguBydaasbgcmnv00/28/2025nemia of renal disease 01/24/20248956Himoxp92/20/1037Sluntr96/20/2024Gastritis with ilnnnatb75/20/2024H/O neck snehjydy54/20/2024High lvsuztnkkca45/20/4195Asghmshnlfba50/20/2024 Dafufamwncznt26/20/2024cute blood loss uakpzb8301/24/2024Occult blood positive stool01/24/20247562Fooneshcjjy58/20/2024hronic diastolic congestive heart failure 07/27/2023aroxysmal atrial humgxqihenek10/23/2024S/P TKR (total knee replacement), right07/27/2023rthritis of right knee05/02/2023enign essential ktcwuqikzzyl81/13/2024DD (degenerative disc disease), oezcuxex80/13/2024 Bhrpzzywyhag26/13/2024Edema of both legs04/18/2023GAD (generalized anxiety disorder)04/18/2023Nonrheumatic mitral valve jatbtacwtzdxk83/13/2024Obesity (BMI 30-39.9)04/18/2023Type 2 diabetes mellitus with hyperglycemia, without long-term current use of nlqzssr4204/18/2023Varicose veins of bilateral lower extremities with pain04/18/2023Vitamin D vvruxiufiq44/13/2024enal cell adenocarcinoma 04/11/2023 Overview (01/24/2024): renal cell Atrophic 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 rnxdrtbnne82/03/2024olyp of sigmoid colon03/08/2023 Chronic kidney disease, stage 3b3Arm pain, right08/26/2013Impingement syndrome of right yrkzybmt53/23/2014Neck pain08/26/2013S/P cervical spinal xhmqgr7308/26/2013 Encounters DateTypeDepartmentCare TpamVvawjgxwjvz49/21/2025 8:30 AM EDTAncillary Procedure [facility] [address] [place] [phone] Awareness of gdsmejblgr28/14/2025Orders Only [facility] [address] [place] [phone] Flo Aguillon MD 10/23/2024 7:30 AM EDTAncillary Procedure [facility] [address] [place] [phone] Awareness of icywdqhmtv21/13/2025Orders Only [facility] [address] [place] [phone] Jakob Duval MD from Last 3 Months Family History Medical HistoryRelationNameCommentsHypertensionBrotherRelationNameStatusComments BrotherFatherDeceasedMotherDeceased Social History Tobacco UseTypesPacks/DayYears UsedDateSmoking Tobacco: FormerCigarettes Smokeless Tobacco: Never Tobacco Cessation:Counseling Given: Not Answered Alcohol UseStandard Drinks/WeekCommentsNot Currently0 (1 standard drink = 0.6 oz pure alcohol)CommentsNoSex and Gender InformationValueDate RecordedSex Assigned at FrtxmUjbwgd96/17/2025 8:36 PM EDTLegal JleJrypjn51/29/2022 10:06 PM EDTGender DsrkfdvaRnfbuv23/17/2025 8:36 PM EDTSexual OrientationHeterosexual or Dqtrizcu48/17/2025 8:36 PM EDT Last Filed Vital Signs Vital SignReadingTime TakenCommentsBlood Eslaxbtd266/5206 1:08 PM EDT Sqvif651008/14/2024 1:08 PM EDTTemperature--Respiratory Gnno4598 8:35 AM ESTOxygen Fpjgjilkyn96%08/14/2024 1:08 PM EDTInhaled Oxygen Concentration-- Jnyvqd58.9 kg (185 lb)08/14/2024 1:08 PM JHKVkbhlr721.9 cm (5' 1 )08/14/2024 1:08 PM EDTBody Mass Index34.9608/14/2024 1:08 PM EDT Plan of Treatment Health MaintenanceDue DateLast DoneCommentsMedicare Annual Wellness (AWV) 1945Diabetes: Retinopathy Qrrqqrniq82/25/1958Depression Screening 1959Adult Labiwkt7711/28/1969Fall Risk Mlrmxdcto83/25/2013Diabetes: Hemoglobin A1C09/20//iabetes: Urine Protein Oqqmpbnto96/14/2025 04/19/2023OVID-19 Vaccine ( season), 12/08/2022, 11/28/2021, Additional history existsPneumococcal Vaccine: 50+ YearsCompleted 12/14/2016, 10/06/2016Zoster FdhsleywCkifxtbaq07/19/2022, 08/30/2021Influenza GdynjmaPsdsbsera50/02/2025, 12/29/2023, 11/24/2022, Additional history existsHIB VaccinesAged OutNo longer eligible based on patient's age to complete this topic HPV VaccinesAged OutNo longer eligible based on patient's age to complete this topicIPV VaccinesAged OutNo longer eligible based on patient's age to complete this topicMeningococcal B VaccineAged OutNo longer eligible based on patient's age to complete this topicMeningococcal VaccineAged OutNo longer eligible based on patient's age to complete this topicRotavirus VaccinesAged OutNo longer eligible based on patient's age to complete this topic Medical Devices ImplantedTypeAreaManufacturerDevice IdentifierShelf Expiration DateModel / Serial / LotBiomonitor Iv - [id number] - [id number] Implanted:Qty: 1 on 05/06/2024 by Jakob Duval [facility] at [facility] Loop RecorderLeft: [id number] / [id number] / Procedures Procedure NamePriorityDate/TimeAssociated DiagnosisCommentsCARDIAC DEVICE CHECK CHECK - KPPKBPXsaueon78/17/2025 12:42 PM EDT Awareness of heartbeats CARDIAC DEVICE CHECK - REMOTE - LOOP RECORDER (ILR)Joynpmc0112/17/2024 12:00 AM EDTCARDIAC DEVICE CHECK CHECK - IQLVCNPxzgtnk35/20/2025 1:22 PM EDT Awareness of heartbeats CARDIAC DEVICE CHECK - REMOTE - LOOP RECORDER (ILR)Gacuool7810/16/2024 12:00 AM EDTfrom Last 3 Months Results * CARDIAC DEVICE CHECK - REMOTE - LOOP RECORDER (ILR) (12/20/2024 12:42 PM EDT) Only the most recent of2 resultswithin the time period is included. Specimen (Source)Anatomical Location / LateralityCollection Method / Volume Collection TimeReceived Time Narrative Authorizing ProviderResult TypeResult StatusPajeovanny Duval MDCV IMPLANTABLE CARDIAC DEVICE PROCEDURESFinal ResultPerforming OrganizationAddressCity/State/ZIP Code Phone Number CPACS * Cardiac device check - Remote loop recorder (ILR) (12/17/2024 12:00 AM EDT) Only the most recent of2 resultswithin the time period is included. Anatomical RegionLateralityModalityOtherSpecimen (Source)Anatomical Location / LateralityCollection Method / VolumeCollection TimeReceived Time12/17/2024 Narrative Authorizing ProviderResult TypeResult StatusFlo Aguillon MDCV IMPLANTABLE CARDIAC DEVICE PROCEDURESFinal Result from Last 3 Months Insurance Care Teams Team MemberRelationshipSpecialtyStart DateEnd Date Misael Antoine MD [address] [place] [address] [facility]12/04/23
--- OUTSIDE RECORDS SUMMARY | 2024-12-30 11:20 | XMS_ITS | Clinical Summary ---
Author Organization [facility] Address [address] [place] [address] Care Team Providers Care Proposal Development Manager Name Role Phone Misael Antoine MD Primary Care Provider [phone] Misael Antoine MD Unavailable Allergies Active AllergyReactionsCriticalityNoted IhzzVhiiauszLoarwohaeFfcxSgs31/26/2019 Other Reaction(s): Facial Swelling UugmsFwvwdhg04/09/2023NsaidsSwelling,ZdefXja9402/28/2019 Medications MedicationSigDispense QuantityRefillsLast FilledStart DateEnd DateStatus ferrous sulfate 325 (65 Fe) MG tablet 1 (one) time each day at the same time.Active furosemide (Lasix) 40 MG tablet 01/02/2023ctive atorvastatin (Lipitor) 10 MG tablet Indications:DyslipidemiaTake 1 tablet (10 mg) by mouth Daily 30 tablet 11003/29/919785/6Active carvedilol (Coreg) 12.5 MG tablet Take 12.5 mg by mouth in the morning and 12.5 mg in the evening. Take with meals.5Active gabapentin (Neurontin) 100 MG capsule Indications:Paresthesia of both feetTake 1 capsule (100 mg) by mouth every 8 (eight) hours 90 capsule 5Active naloxone (Narcan) 4 mg/0.1 mL nasal spray Administer 4 mg into affected nostril(s) Daily as ddsngt635Active omeprazole (PriLOSEC) [address] capsule Take 40 mg by mouth in the morning and 40 mg in the evening.Active lisinopril 5 MG tablet 5Active alendronate (Fosamax) 70 MG tablet Indications:Primary osteoarthritis, unspecified siteTake 1 tablet (70 mg) by mouth every 7 (seven) days Take in the morning with a full glass of water,on an empty stomach, and do not take anything else by mouth or lie down for the next 30 min. 12 tablet [id number] Active Problems ProblemNoted DateDiagnosed DatePancreatic mass09/26/2024 Assessment & Plan (09/26/2024 3:50 PM EDT): Mass suspicious for cancer and follow up with biopsy and oncology. Use percocet PRN for pain. Encounter for long-term (current) use of ydujcscivuq43/31/2025Iron deficiency anemia due to chronic blood loss08/22/2023 Assessment & Plan (08/22/2023 4:29 PM EDT): Arranged for outpatient iron transfusions and follow up as scheduled. Paroxysmal atrial ehelbkfooepn38/23/2024 Assessment & Plan (06/03/2024 10:35 AM EDT): In NSR and continue metoprolol. Loop recorder placed and follow with cardiology. Assessment & Plan (12/04/2023 9:43 AM EDT): In NSR and continue metoprolol. History of GI bleed and may be candidate for Watchman Device. Referto cardiology. Assessment & Plan (07/27/2023 12:09 PM EDT): Developed Afib during surgery for right knee replacement. Prior hx of Afib. Not on Eliquis for stroke px. Her CHADVASC 2 is 4 Patient in NSR and HR is at goal. I will start on Toprol 50 mg daily. Stop Amlodipine as BP is too tightly controlled and at risk of hypotension with addition of Toprol. Also has LE edema and chronic venous insufficiency and stopping amlodipine might also help with that. She is on Lasix 40 mg daily. I will defer further care to Cardiology. I feel she is a good candidate for SGLT2 inhibitors due to CKD, T2 DM and HFpEF but I will not make too many changes in one appointment Refer to Cardiology for further care of her cardiac conditions. Will start on Eliquis for Stroke px. Had detailed discussed with patient risk of bleeding, risk vs benefit of anticoagulation. Also discussed with Dr Schaefer as she just had right knee replacement. Ok to stop ASA and start on Eliquis unless she has evidence of hemarthrosis of exam today in her office visit with Dr Schaefer and in that case, he will inform me to hold off. Chronic diastolic congestive heart cdbkbwi9507/27/2023 Assessment & Plan (06/03/2024 10:34 AM EDT): No edema and use lasix PRN. Assessment & Plan (12/04/2023 9:42 AM EDT): No edema and use lasix PRN. Assessment & Plan (07/27/2023 12:01 PM EDT): 2D ECHO 07/27 - grade 1 diastolic dysfunction, normal EF, mild to mod MR and TR, LVH. Start patient on Toprol. Stop amlodipine. C/w lasix 40 daily. Will also start on Eliquis for stroke px. Will benefit from addition of aldactone and SGLT2 inhibitors but holding off for now. Defer to Cardiology - ordered referral. S/P TKR (total knee replacement), right07/27/2023 Assessment & Plan (07/27/2023 12:10 PM EDT): S/p TKR on 07/18 On ASA for DVT px D/w Dr Schaefer - ok to stop ASA and prescribe Eliquis for Afib that should suffice for DVT px also as long as no evidence of hemarthrosis. She has an appt with Dr Schaefer today and he will let me know if he would like to hold off based on her exam. Primary osteoarthritis of right knee06/30/2023 Assessment & Plan (06/30/2023 11:39 AM EDT): Increased pain and follow with ortho for joint replacement. DDD (degenerative disc disease), xseslc0406/06/2023rthritis of right knee 4Benign essential aawazpucqiui31/13/2024 Assessment & Plan (06/03/2024 10:34 AM EDT): BP controlled and monitor PRN. Assessment & Plan (12/04/2023 9:42 AM EDT): BP controlled and monitor PRN. Assessment & Plan (08/22/2023 4:29 PM EDT): BP controlled and monitor PRN. Assessment & Plan (07/27/2023 12:02 PM EDT): Stop Amlodipine. Started on Toprol 50 mg daily due to hx of Afib. Stopping amlodipine will also help with LE edema Follow up in one month for HTN and BP recheck. Monitor BP at home and bring BP Log next appointment Assessment & Plan (06/30/2023 11:39 AM EDT): BP controlled and monitor PRN. Assessment & Plan (06/06/2023 10:38 AM EDT): BP controlled and monitor PRN. Chronic superficial 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 wwoxljuz91/13/2024 Assessment & Plan (06/03/2024 10:35 AM EDT): Symptoms controlled with protonix and continue. Assessment & Plan (12/04/2023 9:43 AM EDT): Symptoms controlled with protonix and continue. Assessment & Plan (06/06/2023 10:39 AM EDT): Symptoms controlled with protonix and continue. Stage 3b chronic kidney disease (CKD)04/18/2023 Assessment & Plan (07/27/2023 12:03 PM EDT): Follows Dr Bourgeois. Due to HTN , T2 DM Will benefit from addition of SGLT2 inhibotors. But defer to cardiology/nephrology. Assessment & Plan (06/06/2023 10:41 AM EDT): Kidney function stable and follow with nephrology. DDD (degenerative disc disease), lyjtolch37/13/2024 Assessment & Plan (06/03/2024 10:35 AM EDT): Pain stable and use percocet PRN. Assessment & Plan (12/04/2023 9:42 AM EDT): Pain stable and use percocet PRN. Assessment & Plan (06/06/2023 10:39 AM EDT): Pain stable and use percocet PRN. Znktdluiwzyu35/13/2024 Assessment & Plan (06/06/2023 10:41 AM EDT): Lipids elevated and continue lipitor. Edema of both legs04/18/2023 Assessment & Plan (06/06/2023 10:39 AM EDT): Edema controlled with lasix and continue. Elevate legs PRN. SANTA (generalized anxiety disorder)04/18/2023Nonrheumatic mitral valve eubvtuakyvnyx14/13/2024Type 2 diabetes mellitus with hyperglycemia, without long-term current use of vguiwrw9704/18/2023 Assessment & Plan (06/03/2024 10:36 AM EDT): Not checking BS and due for A1C. Stick to ADA diet and limit carbs. Assessment & Plan (12/04/2023 9:43 AM EDT): Not checking BS and due for A1C. Stick to ADA diet and limit carbs. Assessment & Plan (08/22/2023 4:30 PM EDT): BS controlled and monitor PRN. Assessment & Plan (06/30/2023 11:40 AM EDT): BS controlled and A1C 5.7. Stick to ADA diet and limit carbs. Assessment & Plan (06/06/2023 10:40 AM EDT): BS controlled and A1C 6.1. Stick to ADA diet and limit carbs. Vitamin D baybnmzmcy61/13/2024Varicose veins of bilateral lower extremities with pain04/18/2023lass 2 severe obesity due to excess calories with serious comorbidity and body mass index (BMI) of35.0 to 35.9 in adult04/18/2023 Assessment & Plan (06/03/2024 10:35 AM EDT): Weight loss indicated. Renal cell dnfvqiskmkkrda02/06/2024 Overview (04/11/2023): renal cell Assessment & Plan (06/03/2024 10:37 AM EDT): Follow with specialists. Assessment & Plan (12/04/2023 9:45 AM EDT): Follow with specialists. Polyp of sigmoid colon03/08/2023trophic 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 ilacbclzzx08/03/2024 Assessment & Plan (08/22/2023 4:29 PM EDT): Recent GI bleed from gastritis and protonix increased. Symptoms improved and monitor. Anemia due to stage 3b chronic kidney tyazvhc1002/28/2023 Assessment & Plan (08/22/2023 4:29 PM EDT): Follow with nephrology. Assessment & Plan (07/27/2023 12:04 PM EDT): Chronic Anemia with Hb of 9-10. No prior hx of bleeding. Will need close monitoring while on Eliquis. Osteoarthritis of knee08/12/2022 Assessment & Plan (06/06/2023 10:39 AM EDT): Increased pain and increase dose of percocet until after surgery. Follow up with ortho for replacement. Primary vhjnnheeuxoidq53/09/2023S/P cervical spinal dqysgv5408/26/2013 Resolved Problems ProblemNoted DateDiagnosed DateResolved DateHospital discharge follow-up / Assessment & Plan (07/27/2023 12:05 PM EDT): Patient here for follow up after recent hospital admission at Reviewed hospital records. Answered patient's questions and concerns related to hospital stay/medication changes/results of testing. Pre-op nxhmvdgeob35/02/202409/ Assessment & Plan (06/30/2023 11:39 AM EDT): Able to proceed with upcoming surgery at low risk for complications. History of DM and HTN but wellcontrolled with medication. No CAD. Not having chest pain or palpitations. No SOB or cough. Reviewed recent PAT and labs stable. Assessment & Plan (06/06/2023 10:40 AM EDT): Able to proceed with upcoming surgery at low risk for complications. History of DM and HTN but wellcontrolled with medication. No CAD. Not having chest pain or palpitations. No SOB or cough. Recommend routine PAT. MDD (major depressive disorder), recurrent episode, mild/04/2023 Mitral valve jogrcuwfzdppg43/13/202402/High ttkvgzaroky26/06/2024 06/06/2023Neck pain Encounters DateTypeDepartmentCare KuouDgmbkuopnyl98/22/2025linisync Result Encounter [facility] External Department Unsolicited Provider, Generic External Data 10/11/2024linisync Result Encounter [facility] External Department Unsolicited Provider, Generic External Data 09/30/2024External Result Encounter [facility] External Department Unsolicited Misael Antoine MD from Last 3 Months Immunizations ImmunizationAdministration DatesNext DueABRYSVO - Respiratory syncytial virus (RSV), vaccine, bivalent, protein subunit RSV prefusion F, diluent reconstituted, 0.5 mL, PF12/08/2022Hep B, adult07/04/2022,02/04/2022,01/04/2022 Influenza Whole03/15/2012Influenza, High Dose Seasonal, Preservative Free 12/31/2018,12/21/2017,01/19/2017,01/26/2015Influenza, High-dose Seasonal, Quadrivalent, Preservative Free11/24/2022Influenza, Seasonal, Quadrivalent, Cqhyhbmrup40/25/2022Influenza, injectable, quadrivalent, preservative free 12/27/2016Moderna SARS-CoV-2 Jiiulsunwhy05/30/2021Pneumococcal Conjugate PCV 13 10/06/2016Pneumococcal Polysaccharide JTMO9786Zoster, Recombinant 11/22/2021,08/30/2021 Family History Medical HistoryRelationNameCommentsHypertensionMotherMental illnessMother RelationNameStatusCommentsFatherDeceasedMotherDeceased Social History Tobacco UseTypesPacks/DayYears UsedDateSmoking Tobacco: FormerCigarettesQuit: 2008Passive Smoke Exposure: PastSmokeless Tobacco: Never Tobacco Cessation:Counseling Given: No Alcohol UseStandard Drinks/WeekCommentsNot Currently0 (1 standard drink = 0.6 oz pure alcohol)B1300 Health LiteracyAnswerDate RecordedHow often do you need to have someone help you when you read instructions, pamphlets, or other written material from your doctor or pharmacy?Never12/03/2023Social Connection and Isolation PanelAnswerDate RecordedIn a typical week, how many times do you talk on the phone with family, friends, or neighbors?Three times a week12/03/2023How often do you get together with friends or relatives?Twice a week12/03/2023How often do you attend anabaptism or taoism services?Never12/03/2023o you belong to any clubs or organizations such as anabaptism groups, unions, fraternal or athletic groups, or school groups?No12/03/2023How often do you attend meetings of the clubs or organizations you belong to?Never12/03/2023re you , , , , never , or living with a partner?Zacleve8212/03/2023 AUDIT-CAnswerDate RecordedQ1: How often do you have a drink containing alcohol? Never12/03/2023Q2: How many drinks containing alcohol do you have on a typical day when you are drinking?Patient does not drink12/03/2023Q3: How often do you have six or more drinks on one occasion?Never12/03/2023Overall Financial Resource Strain (CARDIA)AnswerDate RecordedHow hard is it for you to pay for the very basics like food, housing, medical care, and heating?Not hard at all 12/03/2023[place] of Occupational Health - Occupational Stress QuestionnaireAnswerDate RecordedDo you feel stress - tense, restless, nervous, or anxious, or unable to sleep at night because yourmind is troubled all the time - these days?Only a fnscsc0012/03/2023Exercise Vital SignAnswerDate Recorded On average, how many days per week do you engage in moderate to strenuous exercise (like a brisk walk)?2 days12/03/2023On average, how many minutes do you engage in exercise at this level?20 min12/03/2023Hunger Vital SignAnswerDate RecordedWithin the past 12 months, you worried that your food would run out before you got the money to buymore.Never true12/03/2023Within the past 12 months, the food you bought just didn't last and you didn't have money to get more.Never true12/03/2023RAPARE - TransportationAnswerDate RecordedIn the past 12 months, has lack of transportation kept you from medical appointments or from getting medications?No12/03/2023In the past 12 months, has lack of transportation kept you from meetings, work, or from getting things needed for daily living?No12/03/2023Housing Stability Vital SignAnswerDate RecordedIn the last 12 months, was there a time when you were not able to pay the mortgage or rent on time?No12/03/2023In the past 12 months, how many times have you moved where you were living?t any time in the past 12 months, were you homeless or living in a group home (including now)?No12/03/2023Comments UnknownSex and Gender InformationValueDate RecordedSex Assigned at BirthNot on fileLegal VscZxgvoh97/15/2023 7:19 PM EDTGender IdentityNot on fileSexual OrientationNot on file Last Filed Vital Signs Vital SignReadingTime TakenCommentsBlood Oxgmrmtv837/5607 3:12 PM EDT Gdpky5490/24/2025 3:12 PM GIYIulcciupxyn38.3 ??C (97.3 ??F)09/26/2024 3:12 PM EDTRespiratory Njny964509/26/2024 3:12 PM EDTOxygen Xurmmqvmlz42%09/26/2024 3:12 PM EDTInhaled Oxygen Concentration--Fqgqvn48.9 kg (185 lb)09/26/2024 3:12 PM EDT Ysxhpw612.9 cm (5' 1 )09/26/2024 3:12 PM EDTBody Mass Index34.9609/26/2024 3:12 PM EDT Plan of Treatment DateTypeDepartmentCare Team (Latest Contact Info)Upukdoadmhd12/04/2026 10:00 AM EDTOffice Visit [facility] [address] [place] [address] Alfred Hardy, MOLD HOLDER [address] [place] [address] Health MaintenanceDue DateLast DoneCommentsMedicare Annual Wellness (AWV) Diabetes: Hemoglobin A1C/, 04/19/2023 Influenza Vaccine (#1), 11/24/2022, 11/28/2021, Additional history existsDiabetes: Urine Protein Bynyewibf48/31/93666606/03/2024, 04/19/2023, 04/19/2023, Additional history existsDiabetes: Retinopathy Ghqwnrknb20/03/2027 04/08/2024Pneumococcal Vaccine: 65+ OjlvvPfhzywgpb22/11/2017, 10/06/2016 XaaxyypqgFbsvycsgidql82/13/0335OgeiqslkvuqGxyvqqdbigcz54/03/2024, 03/08/2023 Colorectal Cancer ScreeningDiscontinuedCT ColonographyDiscontinuedFIT-DNA DiscontinuedFITDiscontinuedFOBTDiscontinuedSigmoidoscopyDiscontinued Procedures Procedure NamePriorityDate/TimeAssociated DiagnosisCommentsTISS PATH BX REPORT Fmjpndr3610/25/2024 11:06 AM EDT [facility] CYTOLOGY NON-JDAKpukhjp09/22/2025 11:02 AM EDT UPPER EUS10/25/2024 10:28 AM EDT [facility] CANCER AG19-9 SERPL-KAVOXrzlppc11/08/2025 1:42 PM EDT [facility] COMP METAB 2000 PNL ULIRLWyrewag89/08/2025 1:42 PM EDT [facility] CBC W AUTO DIFF UWPMfyzows86/08/2025 1:42 PM EDT CYTOLOGY NON-FWPNKKDBSAAQfqwibu73/28/2025 1:43 PM EDT HEMOGLOBIN U1QSomppvj23/18/2024 3:14 PM EDT MICROALBUMIN / CREATININE URINE HPRULBbirxwi55/14/2024 12:33 PM EST from Last 3 Months or Most Recently Relevant to Health Maintenance Results * TISS PATH BX REPORT (10/25/2024 11:06 AM EDT)ComponentValueRef RangeTest MethodAnalysis TimePerformed AtPathologist SignatureCCF CASE REPORTCCFComment: Surgical Pathology Report ? Case: [id number] ? Authorizing Provider: ??Jose Sweeney MD ? Collected: ? 10/25/2024 11:06 AM? Ordering Location: ? Gastroenterology ? Received: ?10/25/2024 04:25 PM ? Pathologist: ? Aarti Last MD ? Specimen: ?Pancreas, Biopsy, FNB Panc Head Mass ? F FINAL DIAGNOSISCCFComment: Pancreas, head, mass, biopsy: - Most consistent with metastatic renal cell carcinoma -See comment at 1129 EDT [facility] DIAGNOSIS COMMENTThe sample is comprised of fragments of fibrin and lesional tissue. ??The lesional tissue is comprised of clusters of cells with clear cytoplasm and monomorphic small to medium sized nuclei. ??The lesional cells label with PAX8; they do not express synaptophysin and chromogranin. ??Overall the features are most consistent with involvement by a renal cell carcinoma [facility] GROSS DESCRIPTIONCCFComment: A. Pancreas, Biopsy Received in formalin are multiple segments of cylindrical tissue aggregating to 2.2 x 0.3 x 0.1 cm,red-brown and of a soft and friable consistency. Totally submitted in one cassette. KK October 25, 2024 6:14 PM Gross examination performed at [facility], [address] [place] [address] [facility] FINAL PERFORMING LABCCFComment: Diagnostic interpretation performed at: [facility], [address] [place] [address], [place] [address] ?? CLIA# [id number] Batching Operator: Jose Mabry MD AP DISCLAIMERCCFComment: Laboratory Developed Test (LDT) Disclaimer: Performance characteristics of immunohistochemical, immunofluorescent, and chromogenic in-situ hybridization tests have been determined by the performing laboratory within the [facility] Department of Pathology and Laboratory Medicine ([facility], [facility], [facility], [facility], [facility], [facility], or [facility]) in a manner consistent with CLIA requirements. One or more of these tests may not have been cleared or approved by the FDA. The [facility] Department of Pathology and Laboratory Medicineis regulated under CLIA as qualified to perform high-complexity testing. These tests are used for clinical purposes. These should not be regarded as investigational or for research. Positive and negative controls stain appropriately. Specimen (Source)Anatomical Location / LateralityCollection Method / Volume Collection TimeReceived Time10/25/2024 11:06 AM EDT10/25/2024 4:25 PM EDT Narrative CLINISYNC - 10/30/2024 11:29 AM EDT Specimen Type: TISSUE SPECIMEN Ordering Facility: [facility] ?Address: [address] [place] [address] Original Ordering Provider: JOSE SWEENEY Authorizing ProviderResult TypeResult StatusGeneric External Data ProviderLAB BLOOD ORDERABLESFinal ResultPerforming OrganizationAddressCity/State/ZIP Code Phone Number [facility] [address] [place] [address] * [facility] CYTOLOGY NON-PIE CHEF (10/25/2024 11:02 AM EDT)ComponentValueRef RangeTest MethodAnalysis TimePerformed AtPathologist SignatureCCF CASE REPORTCCFComment: Medical Cytology Report ? Case: [id number] ? Authorizing Provider: ??Jose Sweeney MD ? Collected: ? 10/25/2024 11:02 AM? Ordering Location: ? Gastroenterology ? Received: ?10/25/2024 07:20 PM ? Pathologist: ? Valery Fisher, ? MD ? Specimen: ?Pancreas, Panc Head Mass ? [facility] FINAL DIAGNOSISCCFComment: A - Pancreas, Head Mass, Fine needle aspiration: ?Limited cellularity. ?Rare atypical cells present. ??See comment. ? The following cell blocks were associated with this case: A1 Cell Block, Alcohol Fixed at 1248 EDT [facility] DIAGNOSIS COMMENTCCFComment: The limited cellularity precludes are more definitive diagnosis. ??Please see concurrent biopsy ([id number]) [facility] GROSS DESCRIPTIONA. PancreasCCFComment: 30 cc clear red CytoLyt with material. ??ThinPrep and Cell Block prepared and 2 smears. [facility] CLINICAL HISTORYPancreatic massCCFCCF FINAL PERFORMING LABCCFComment: Technical component, marketing producer screening [facility] [address] [place] [address], [address] [address] ??CLIA: [id number] Diagnostic interpretation performed at: [facility], [address] [place] [address] ?? CLIA# [id number] Batching Operator: MD JEREMIAH Shea DISCLAIMERCCFComment: Laboratory Developed Test (LDT) Disclaimer: Performance characteristics of immunohistochemical, immunofluorescent, and chromogenic in-situ hybridization tests have been determined by the performing laboratory within the [facility] Department of Pathology and Laboratory Medicine ([facility], [facility], [facility], [facility], [facility], [facility], or [facility]) in a manner consistent with CLIA requirements. One or more of these tests may not have been cleared or approved by the FDA. The [facility] Department of Pathology and Laboratory Medicineis regulated under CLIA as qualified to perform high-complexity testing. These tests are used for clinical purposes. These should not be regarded as investigational or for research. Positive and negative controls stain appropriately. Specimen (Source)Anatomical Location / LateralityCollection Method / Volume Collection TimeReceived Time10/25/2024 11:02 AM EDT10/25/2024 7:20 PM EDT Narrative CLINISYNC - 10/29/2024 12:48 PM EDT Specimen Type: SPECIMEN OBTAINED BY ASPIRATION Ordering Facility: [facility] ?Address: [address] [place] [address] Original Ordering Provider: JOSE SWEENEY Authorizing ProviderResult TypeResult StatusGeneric External Data Provider CLINISYNCFinal ResultPerforming OrganizationAddressCity/State/[place] [address] * UPPER EUS (10/25/2024 10:28 AM EDT)Anatomical RegionLateralityModalityOther Specimen (Source)Anatomical Location / LateralityCollection Method / Volume Collection TimeReceived Time10/25/2024 10:28 AM EDT Narrative 10/25/2024 11:13 AM EDT Q3 Patient Name: Malgorzata Reyes Procedure Date: 10/25/2024 10:28 AM Date of : 1945 Admit Type: Outpatient Age: 78 Gender: Female Note Status: Finalized Attending MD: Jose Sweeney MD, [id number] Procedure: ? Upper EUS Indications: ? Abnormal abdominal MRI, Pancreatic mass Providers: ? Jose Sweeney MD Patient Profile: ? This is a 78 year old female. Referring Physician: ?? Josue Richardson (Referring MD) Complications: ? No immediate complications. Requesting Provider: ?? Procedure: ? Pre-Anesthesia Assessment: ? - Prior to the procedure, a History and Physical ? was performed, and patient medications and ? allergies were reviewed. The patient's tolerance of ? previous anesthesia was also reviewed. The risks ? and benefits of the procedure and the sedation ? options and risks were discussed with the patient. ? All questions were answered, and informed consent ? was obtained. Prior Anticoagulants: The patient has ? taken no anticoagulant or antiplatelet agents. ASA ? Grade Assessment: III - A patient with severe ? systemic disease. After reviewing the risks and ? benefits, the patient was deemed in satisfactory ? condition to undergo the procedure. ? After obtaining informed consent, the endoscope was ? passed under direct vision. Throughout the ? procedure, the patient's blood pressure, pulse, and ? oxygen saturations were monitored continuously. The ? Endosonoscope was introduced through the mouth, and ? advanced to the second part of duodenum. The ? Endoscope was introduced through the mouth, and ? advanced to the second part of duodenum. The upper ? EUS was accomplished without difficulty. The ? patient tolerated the procedure well. Moderate Sedation: ? MAC anesthesia was administered by the anesthesia team. Findings: ? ENDOSCOPIC FINDING: : ? The examined esophagus was endoscopically normal. ? The entire examined stomach was endoscopically normal. ? The examined duodenum was endoscopically normal. ? ENDOSONOGRAPHIC FINDING: : ? A very large heterogeneous and highly vascular mass was found in the ? head of the pancreas. The remainder of the pancreas was examined. The ? endosonographic appearance of parenchyma and the upstream pancreatic ? duct indicated that the remainder of the pancreas was unremarkable. ? Fine needle biopsy was performed. Color Doppler imaging was utilized ? prior to needle puncture to confirm a lack of significant vascular ? structures within the needle path. Two passes were made with the 22 ? gauge ultrasound biopsy needle using a transduodenal approach. Impression: ?- A large and vascular mass was identified in the ? pancreatic head. Fine needle biopsy performed. Estimated Blood Loss: ??Estimated blood loss: none. Attending Participation: ? I personally performed the entire procedure. Scope In: 10:45:59 AM Scope Out: 11:11:09 AM MD Jose Bee MD 10/25/2024 11:14:06 AM This report has been signed electronically by Jose Sweeney MD Number of Addenda: 0 Note Initiated On: 10/25/2024 10:28 AM Procedure Note Radiology, Radiologist, - 10/25/2024 Q3 Patient Name: Malgorzata Reyes Procedure Date: 10/25/2024 10:28 AM Date of : 1945 Admit Type: Outpatient Age: 78 Gender: Female Note Status: Finalized Attending MD: Jose Sweeney MD, [id number] Procedure: Upper EUS Indications: Abnormal abdominal MRI, Pancreatic mass Providers: Jose Sweeney MD Patient Profile: This is a 78 year old female. Referring Physician: Josue Richardson (Referring MD) Complications: No immediate complications. Requesting Provider: Procedure: Pre-Anesthesia Assessment: - Prior to the procedure, a History and Physical was performed, and patient medications and allergies were reviewed. The patient's tolerance of previous anesthesia was also reviewed. The risks and benefits of the procedure and the sedation options and risks were discussed with the patient. All questions were answered, and informed consent was obtained. Prior Anticoagulants: The patient has taken no anticoagulant or antiplatelet agents. ASA Grade Assessment: III - A patient with severe systemic disease. After reviewing the risks and benefits, the patient was deemed in satisfactory condition to undergo the procedure. After obtaining informed consent, the endoscope was passed under direct vision. Throughout the procedure, the patient's blood pressure, pulse, and oxygen saturations were monitored continuously. The Endosonoscope was introduced through the mouth, and advanced to the second part of duodenum. The Endoscope was introduced through the mouth, and advanced to the second part of duodenum. The upper EUS was accomplished without difficulty. The patient tolerated the procedure well. Moderate Sedation: MAC anesthesia was administered by the anesthesia team. Findings: ENDOSCOPIC FINDING: : The examined esophagus was endoscopically normal. The entire examined stomach was endoscopically normal. The examined duodenum was endoscopically normal. ENDOSONOGRAPHIC FINDING: : A very large heterogeneous and highly vascular mass was found in the head of the pancreas. The remainder of the pancreas was examined. The endosonographic appearance of parenchyma and the upstream pancreatic duct indicated that the remainder of the pancreas was unremarkable. Fine needle biopsy was performed. Color Doppler imaging was utilized prior to needle puncture to confirm a lack of significant vascular structures within the needle path. Two passes were made with the 22 gauge ultrasound biopsy needle using a transduodenal approach. Impression: - A large and vascular mass was identified in the pancreatic head. Fine needle biopsy performed. Estimated Blood Loss: Estimated blood loss: none. Attending Participation: I personally performed the entire procedure. Scope In: 10:45:59 AM Scope Out: 11:11:09 AM MD Jose Bee MD 10/25/2024 11:14:06 AM This report has been signed electronically by Jose Sweeney MD Number of Addenda: 0 Note Initiated On: 10/25/2024 10:28 AM Authorizing ProviderResult TypeResult StatusGeneric External Data Provider [facility] IMAGINGFinal Result * (ABNORMAL) [facility] CBC W AUTO DIFF BLD (10/11/2024 1:42 PM EDT)ComponentValueRef RangeTest MethodAnalysis TimePerformed AtPathologist SignatureCCF WBC # BLD AUTO6.293.70 - 11.00 k/uLCCFCCF RBC # BLD AUTO3.12(L)3.90 - 5.20 m/uLCCFCCF HGB BLD-MCNC9.3(L)11.5 - 15.5 g/dLCCFCCF HCT VFR BLD AUTO29.2(L)36.0 - 46.0 % CCFCCF MCV RBC AUTO93.680.0 - 100.0 fLCCFCCF MCH RBC QN AUTO29.826.0 - 34.0 pg CCFCCF MCHC RBC AUTO-MCNC31.830.5 - 36.0 g/dLCCFCCF RDW RBC-RTO14.111.5 - 15.0 %CCFCCF PLATELET # BLD [id number] - 400 k/uLCCFCCF PMV BLD AUTO10.19.0 - 12.7 fLCCFCCF NEUTROPHILS/LEUK NFR BLD AUTO68.4%CCFCCF NEUTROPHILS # BLD AUTO4.30 1.45 - 7.50 k/uLCCFCCF LYMPHOCYTES/LEUK NFR BLD AUTO19.4%CCFCCF LYMPHOCYTES # BLD AUTO1.221.00 - 4.00 k/uLCCFCCF MONOCYTES/LEUK NFR BLD AUTO8.6%CCFCCF MONOCYTES # BLD AUTO0.54<0.87 k/uLCCFCCF EOSINOPHIL/LEUK NFR BLD AUTO2.5%CCF [facility] EOSINOPHIL # BLD AUTO0.16<0.46 k/uLCCFCCF BASOPHILS/LEUK NFR BLD AUTO0.8% CCFCCF BASOPHILS # BLD AUTO0.05<0.11 k/uLCCFIMM GRANULOCYTES/LEUK NFR BLD AUTO 0.3%CCFIMM GRANULOCYTES # BLD AUTO<0.03<0.10 k/uLCCFCCF NRBC/100 WBC BLD-RTO 0.0/100 WBCCCFCCF NRBC # BLD AUTO<0.01<0.01 k/uLCCFCCF DIFFERENTIAL METHOD BLD AutoCCFSpecimen (Source)Anatomical Location / LateralityCollection Method / VolumeCollection TimeReceived Time10/11/2024 1:42 PM EDT10/11/2024 1:42 PM EDT Narrative [facility] - 10/11/2024 1:48 PM EDT Specimen Type: BLOOD SPECIMEN Ordering Facility: [facility] ?Address: [address] [place] [id number] Original Ordering Provider: BRIANNE CHAN Authorizing ProviderResult TypeResult StatusGeneric External Data Provider CLINISYNCFinal ResultPerforming OrganizationAddressCity/State/ZIP CodePhone Number [facility] [address] [place] [phone] * [facility] AG19-9 [facility] (10/11/2024 1:42 PM EDT)ComponentValueRef Range Test MethodAnalysis TimePerformed AtPathologist SignatureCCF CANCER AG19-9 SERPL-ACNC11.0<36.0 U/mLCCFComment: Cancer antigen 19-9 test is used as an aid in monitoring response to treatment or recurrence in patients with established pancreatic, hepatobiliary, or gastrointestinal malignancies. Clinical correlation is required. The CA 19-9 Antigen test was performed using the [employer] Un[employer]el DXI paramagnetic particle chemiluminescent immunoassay method. Results obtained with different assay methods or kits cannot be used interchangeably. Specimen (Source)Anatomical Location / LateralityCollection Method / Volume Collection TimeReceived Time10/11/2024 1:42 PM EDT10/11/2024 10:59 PM EDT Narrative [facility] - 10/14/2024 11:28 AM EDT Specimen Type: BLOOD SPECIMEN Ordering Facility: [facility] ?Address: [address] [place] [address] Original Ordering Provider: BRIANNE CHAN Authorizing ProviderResult TypeResult StatusGeneric External Data Provider CLINISYNCFinal ResultPerforming OrganizationAddressCity/State/[facility] CodePhone Number [facility] [address] [place], [place] [address] [place] [address] * (ABNORMAL) [facility] COMP METAB 2000 PNL SERPL (10/11/2024 1:42 PM EDT)Component ValueRef RangeTest MethodAnalysis TimePerformed AtPathologist SignatureCCF PROT SERPL-MCNC6.86.3 - 8.0 g/dLCCFCCF ALBUMIN SERPL-MCNC4.83.9 - 4.9 g/dLCCF [facility] CALCIUM SERPL-MCNC9.48.5 - 10.2 mg/dLCCFCCF BILIRUB SERPL-MCNC0.40.2 - 1.3 mg/dLCCFCCF ALP SERPL-LXQZ6245 - 123 U/LCCFCCF AST SERPL-CCNC11(L)13 - 35 U/L CCFCCF ALT SERPL-CCNC6(L)7 - 38 U/LCCFCCF GLUCOSE SERPL-JOJG578(H)74 - 99 mg/dLCCFComment: The [place] Diabetes [employer] (ADA) provides guidance for cutoff values for fasting glucose andrandom glucose. The ADA defines fasting as no caloric intake for at least 8 hours. Fasting plasma glucose results between 100 to 125 mg/dL indicate increased risk for diabetes (prediabetes). Fasting plasma glucose results greater than or equal to 126 mg/dL meet the criteria for diagnosis of diabetes. In the absence of unequivocal hyperglycemia, results should be confirmed by repeat testing. In a patient with classic symptoms of hyperglycemia or hyperglycemic crisis, random plasma glucose results greater than or equal to 200 mg/dL meet the criteria for diagnosis of diabetes. Reference: Standards of Medical Care in Diabetes 2016, [place] [employer]. Diabetes Care. 2016.39(Suppl 1). [facility] BUN SERPL-MCNC23(H)7 - 21 mg/dLCCFCCF CREAT SERPL-MCNC1.46(H)0.58 - 0.96 mg/dLCCFCCF SODIUM SERPL-[id number] - 144 mmol/LCCFCCF POTASSIUM SERPL-SCNC5.2 (H)3.7 - 5.1 mmol/LCCFCCF CHLORIDE SERPL-KKAJ27534 - 107 mmol/LCCFCCF CO2 SERPL-AGUH7234 - 30 mmol/LCCFCCF ANION GAP SERPL-ZYZE814 - 15 mmol/LCCFEGFRCR SERPLBLD CKD-EPI 000951(L)>=60 mL/min/1.73m???CCFComment:Estimated Glomerular Filtration Rate (eGFR) is calculated using the 2020 CKD-EPI creatinine equation. This equation utilizes serum creatinine, sex, and age as parameters. The creatinine assay has traceable calibration to isotope dilution-mass spectrometry. Refer to KDIGO guidelines for clinical interpretation. In patients with unstable renal function, e.g. those with acute kidney injury, the eGFRmay not accurately reflect actual GFR.Specimen (Source)Anatomical Location / LateralityCollection Method / VolumeCollection TimeReceived Time10/11/2024 1:42 PM EDT10/11/2024 1:42 PM EDT Narrative [facility] - 10/11/2024 2:20 PM EDT Specimen Type: BLOOD SPECIMEN Ordering Facility: [facility] ?Address: [address] [place] [address] Original Ordering Provider: BRIANNE CHAN Authorizing ProviderResult TypeResult StatusGeneric External Data Provider CLINISYNCFinal ResultPerforming OrganizationAddressCity/State/ZIP CodePhone Number [facility] [address] [place] [address] * CYTOLOGY NON-GYNECOLOGIC (09/30/2024 1:43 PM EDT)ComponentValueRef RangeTest MethodAnalysis TimePerformed AtPathologist SignatureNON-GYNECOLOGIC CYTOLOGY SEE RESULTS BELOWPROMEDICAComment: SPECIMEN SOURCE ?Fine Needle Aspirate ? Pancreas LAB AP CASE REPORT: Medical Cytology Report ? Case: [id number] ? Authorizing Provider: ??Annabella Louie MD ?Collected: ? 09/30/2024 1343 ? Ordering Location: ? [facility] ??Received: ?09/30/2024 1434 ? - Endoscopy ? Pathologist: ? Riya Blanco MD ? Specimen: ?Pancreas, Head Pancreas Mass ? LAB AP ADDENDUM 1: The specimen is paucicellular. ??Because the patient has a history of renal cell carcinoma, in order to identify a metastatic renal cell carcinoma, immunohistochemical staining for AE1/AE3 and the PAX8 is performedwith adequate controls. Both biomarkers are negative in the cellblock. Addendum electronically signed by Kailash Cannon MD on 10/17/2024 at 0806 EDT LAB AP FINAL DIAGNOSIS: Mass, pancreatic head, fine-needle aspiration: No malignant cells identified. at 1312 EDT LAB AP GROSS DESCRIPTION: Received was a needle rinse in CytoLyt for Thinprep and cellblock. Needle rinse obtained at 13:43 and placed in formalin at 18:00 with a total formalin fixation time of 7 hours. ? PERFORMED AT [address],[place] [address] The copy-to physician of this order is MISAEL Jara The ordering physician of this order is ANNABELLA Carvalho Specimen (Source)Anatomical Location / LateralityCollection Method / Volume Collection TimeReceived Time09/30/2024 1:43 PM EDT09/30/2024 3:56 PM EDT Narrative [facility] - 10/17/2024 8:06 AM EDT Pre-op diagnosis: Pancreatic mass (K86.89) Authorizing ProviderResult TypeResult StatusMarc Elina LOPEZLAB BLOOD ORDERABLES Edited Result - FinalPerforming OrganizationAddressCity/State/ZIP CodePhone Number [facility] * (ABNORMAL) Hemoglobin A1c (06/22/2023 3:14 PM EDT)ComponentValueRef RangeTest MethodAnalysis TimePerformed AtPathologist SignatureHEMOGLOBIN A1C5.7(H)4.4 - 5.6 %PROMEDICAComment: NOTE ? ADA Guidelines ? Result ?HgbA1c ?Normal : ? less than 5.7 % ?Prediabetes : ?5.7 % ??to 6.4 % Diabetes : > 6.4 % Use with caution in patients with abnormal hemoglobin variants as the half-life of red blood cells and in vivo glycation rates are affected. AVERAGE UKIPWIG630mn/dLPROMEDICASpecimen (Source)Anatomical Location / LateralityCollection Method / VolumeCollection TimeReceived Time06/22/2023 3:14 PM EDT06/22/2023 3:15 PM EDT Narrative Authorizing ProviderResult TypeResult StatusChandrakant SmithKenmore Hospital BLOOD ORDERABLESFinal ResultPerforming OrganizationAddressCity/State/ZIP CodePhone Number [facility] * (ABNORMAL) Microalbumin / creatinine urine ratio (04/19/2023 12:33 PM EST) ComponentValueRef RangeTest MethodAnalysis TimePerformed AtPathologist SignatureMICROALBUMIN, URINE2.0(H)0.0 - 1.9 mg/dLPROMEDICAURINE CREAT75.68 mg/dLPROMEDICAALB/CREAT RATIO26.40.0 - 30.0 mg/g creatPROMEDICAComment: PERFORMED AT [facility] [address],[place] [address] Specimen (Source)Anatomical Location / LateralityCollection Method / Volume Collection TimeReceived Time04/19/2023 12:33 PM EST04/19/2023 12:34 PM EST Narrative Authorizing ProviderResult TypeResult StatusMisael ESPITIA URINE ORDERABLES Final ResultPerforming OrganizationAddressCity/State/ZIP CodePhone Number [facility] from Last 3 Months or Most Recently Relevant to Health Maintenance Insurance Care Teams Team MemberRelationshipSpecialtyStart DateEnd Date Misael Antoine MD PCP - [facility]04/06/23 Misael Antoine MD [address] [place] [address] PCP - [facility]04/12/24
--- OUTSIDE RECORDS SUMMARY | 2024-12-30 11:20 | XMS_ITS | Encounter Summary ---
Author Organization [facility] Address [address] [place] [address] Care Team Providers Care Technology Applications Engineer Name Role Phone Misael Antoine MD Primary Care Provider [phone] Encounter Details DateTypeDepartmentCare Team (Latest Contact Info)Ifkcwibtrqf69/14/2025Orders Only [facility] [address] [place] [address] Flo Aguillon MD [address] [place] [address] Social History Tobacco UseTypesPacks/DayYears UsedDateSmoking Tobacco: FormerCigarettes Smokeless Tobacco: NeverAlcohol UseStandard Drinks/WeekCommentsNot Currently0 (1 standard drink = 0.6 oz pure alcohol)CommentsNoSex and Gender InformationValueDate RecordedSex Assigned at XofxxZlwgha18/17/2025 8:36 PM EDT Legal MdeYubbdg36/29/2022 10:06 PM EDTGender IfbjjusfVwepms49/17/2025 8:36 PM EDTSexual OrientationHeterosexual or Cxcrukxu50/17/2025 8:36 PM EDTdocumented as of this encounter Plan of Treatment Not on file documented as of this encounter Procedures Procedure NamePriorityDate/TimeAssociated DiagnosisCommentsCARDIAC DEVICE CHECK - REMOTE - LOOP RECORDER (ILR)Pcqtias1612/17/2024 12:00 AM EDTdocumented in this encounter Results * Cardiac device check - Remote loop recorder (ILR) (12/17/2024 12:00 AM EDT) Anatomical RegionLateralityModalityOtherSpecimen (Source)Anatomical Location / LateralityCollection Method / VolumeCollection TimeReceived Time12/17/2024 Narrative Authorizing ProviderResult TypeResult StatusSaangela Aguillon MDC IMPLANTABLE CARDIAC DEVICE PROCEDURESFinal Result documented in this encounter Visit Diagnoses Not on filedocumented in this encounter Care Teams Team MemberRelationshipSpecialtyStart DateEnd Date Misael Antoine MD [address] [place] [address] PCP - GeneralFamily Medicine12/04/23documented as of this encounter
--- OUTSIDE RECORDS SUMMARY | 2024-12-30 11:20 | XMS_ITS | Clinical Summary ---
Author Organization [employer] tem Address [id number] [address] [place] [address] Care Team Providers Care Atm Servicer Name Role Phone Misael Antoine MD Primary Care Provider [phone] Allergies Active AllergyReactionsCriticalityNoted LeqhWoeakzdwDpbanIykrIvf44/21/2017Nsaids (Non-Steroidal Anti-Inflammatory Drug)Swelling,Rash,Facial EczngztmOts43/26/2019 Medications MedicationSigDispense QuantityRefillsLast FilledStart DateEnd DateStatus furosemide (LASIX) 40 mg tablet Indications:edemaTake 1 tablet (40 mg total) by mouth daily Indications: visible water retention.Active gabapentin (NEURONTIN) 100 mg capsule Indications:restless leg syndromeTake 1 capsule (100 mg total) by mouth in the morning and 1 capsule (100 mg total) at noon and 1 capsule (100 mg total) before bedtime. Indications: restless legs syndrome, an extreme discomfort in the calf muscles when sitting or lying down.Active carvediloL (COREG) 12.5 mg tablet Indications:hypertensionTake 1 tablet (12.5 mg total) by mouth in the morning and 1 tablet (12.5 mg total) in the evening. Take with meals. Indications: high blood pressure.Active omeprazole (PriLOSEC) 40 mg capsule Indications:gastroesophageal reflux diseaseTake 1 capsule (40 mg total) by mouth every morning before breakfast Indications: gastroesophageal reflux disease. Active naloxone (NARCAN) 4 mg/actuation spray,non-aerosol nasal spray Administer 1 spray (4 mg total) into alternating nostrils as needed for opioid reversal. 1 each 5Active Additional Information Patient not taking.Reported on 09/30/2024 alendronate (FOSAMAX) 70 mg tablet Indications:postmenopausal osteoporosisTake 1 tablet (70 mg total) by mouth Once a week Indications: decreased bone mass following menopause. ctive atorvastatin (LIPITOR) 10 mg tablet Indications:mixed hyperlipidemiaTake 1 tablet (10 mg total) by mouth in the morning. Indications: high cholesterol and high triglycerides.03/29/2024 03/29/2025ctive ferrous sulfate 325 (65 FE) MG tablet Indications:iron deficiency anemiaTake 1 tablet (325 mg total) by mouth daily with breakfast Indications: anemia from inadequate iron.Active lisinopriL (PRINIVIL,ZESTRIL) 5 mg tablet Indications:hypertensionTake 1 tablet (5 mg total) by mouth in the morning. Indications: high blood pressure.12/07/2023ctive coenzyme Q10 30 mg capsule Take 100 mg by mouth in the morning.Active acetaminophen (TYLENOL) 325 mg tablet Take 2 tablets (650 mg total) by mouth every 6 (six) hours as needed for pain. Active Active Problems Patient Care Coordination No te Formatting of this note migh t be different from the original. Last AWV 09/25/17 ProblemNoted DateDiagnosed DatePancreatic mass09/16/2024Primary osteoarthritis of right knee07/19/2023olyp of sigmoid colon03/08/2023trophic 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 oaznbvehnc85/03/2024Iron deficiency yyvfxr5402/28/2023 Encounters DateTypeDepartmentCare KwnfLbonsfiqhat59/29/2025 2:18 PM EDT - 12/02/2024 11:59 PM EDTHospital Encounter [facility] [address] [place] [phone] Pancreatic mass Discharge Disposition: Home12/02/20248267Uxffjv90/10/2025Telephone [facility] Hepatobiliary, Pancreatic & Endocrine Surgery [address] [place] [address] Amy Pineda LPN 10/07/2024Results Follow-Up [facility] - Endoscopy [address] [place] [address] Denzel Louie MD Cytology non-gvbxvqeimlt36/ 2:45 PM EDT - 09/30/2024 4:15 PM EDTSurgery [facility] Endoscopy [address] [place] [phone] Denzel Louie MD ESOPHAGOGASTRODUODENOSCOPY DIAGNOSTIC [69734 (CPT??)]09/30/2024 1:16 PM EDT Anesthesia Event [facility] Endoscopy [address] [place] [phone] Hayley Sheffield MD Aghachi, Isioma L, AIRPLANE DESIGNER-MARKET SURVEY REPRESENTATIVE 09/30/2024 11:32 AM EDT - 09/30/2024 3:32 PM EDTHospital Encounter [facility] Surgery [address] [place] [phone] Denzel Louie MD Pancreatic mass (Primary Dx) Discharge Disposition: Home09/30/2024Travelfrom Last 3 Months Immunizations ImmunizationAdministration DatesNext DueCOVID-19, mRNA, LNP-S, PF, 100mcg/0.5mL Dose06/05/2020,05/08/2020 Family History Medical HistoryRelationNameCommentsHypertensionMotherThyroid diseaseMotherBreast cancerPaternal AuntRelationNameStatusCommentsFatherDeceasedMotherPaternal Aunt Social History Tobacco UseTypesPacks/DayYears UsedDateSmoking Tobacco: FormerCigarettesPassive Smoke Exposure: PastSmokeless Tobacco: Never Tobacco Cessation:Counseling Given: Not Answered Comments:Quit in 2007 Alcohol UseStandard Drinks/WeekCommentsNot Currently0 (1 standard drink = 0.6 oz pure alcohol)[facility] UtilitiesAnswerDate RecordedIn the past 12 months has the [employer], gas, oil, or water Widemile threatened to shut off services in your home?No09/16/2024UDIT-CAnswerDate RecordedQ1: How often do you have a drink containing alcohol?Never09/16/2024Q2: How many drinks containing alcohol do you have on a typical day when you are drinking?Patient does not drink09/16/2024Q3: How often do you have six or more drinks on one occasion?Never09/16/2024Overall Financial Resource Strain (CARDIA)AnswerDate RecordedHow hard is it for you to pay for the very basics like food, housing, medical care, and heating?Not hard at all09/16/2024PHQ-2AnswerDate RecordedTotal Bsfhx634PRAPARE - TransportationAnswerDate RecordedIn the past 12 months, has lack of transportation kept you from medical appointments or from getting medications?No 09/16/2024In the past 12 months, has lack of transportation kept you from meetings, work, or from getting things needed for daily living?No09/16/2024 Housing InstabilityAnswerDate RecordedAre you worried or concerned that in the next two months you may not have stable housing that you own, rent or stay in as a part of a household?No09/16/2024hildcareAnswerDate RecordedChildcareUnknown 08/15/2018EmploymentAnswerDate YwutpuddKubdqbginlLqjbusu34/12/2019Hunger ScreeningAnswerDate RecordedWithin the past 12 months we worried whether our food would run out before we got money to buy more.Never True09/27/2024Within the past 12 months the food we bought just didn't last and we didn't have money to get more.Never True09/27/2024Purpose - LifeAnswerDate RecordedPurpose and direction in qcigCzxrjuq51/11/2021CommentsNoSex and Gender Information ValueDate RecordedSex Assigned at BirthNot on fileLegal FfnGwfrsh93/06/2015 11:28 AM EDTGender IdentityNot on fileSexual OrientationNot on file Last Filed Vital Signs Vital SignReadingTime TakenCommentsBlood Dkdfbakl887/8109/30/2024 3:15 PM EDT Hkhqz799809/30/2024 3:15 PM CCJHlxiagxcgal57.3 ??C (97.3 ??F)09/30/2024 3:15 PM EDTRespiratory Xenn741409/30/2024 3:15 PM EDTOxygen Bbbcojojbg56%09/30/2024 3:15 PM EDTInhaled Oxygen Concentration--Uahagb99.4 kg (186 lb)12/02/2024 2:20 PM EDT Zmvrqc015.4 cm (5')12/02/2024 2:20 PM EDTBody Mass Index36.33012/02/2024 2:20 PM EDT Plan of Treatment Health MaintenanceDue DateLast DoneCommentsDTaP,Tdap and Td Vaccines (1 - Tdap) 11/28/1966Medicare Annual Wellness VisitFall Risk Screening OVID-19 Vaccine ( season), 12/08/2022, 11/28/2021, Additional history existsInfluenza Lnesvru5711/04/2024 12/29/2023, 11/24/2022, 11/28/2021, Additional history existsDepression Lfgbpiqrk67Tobacco Onhpamiyp18Zoster (Shingles) YhflpvlNsinalnol28/19/2022, 08/30/2021olonoscopyDiscontinued 03/08/2023, 03/08/2023, 03/13/2008 Goals GoalPatient Goal TypeAssociated ProblemsRecent ProgressPatient-Stated?Author Home self care Trixie Ortega, RN Note: Evaluation of progress towards goal: progressing towards discharge Medical Devices ImplantedTypeAreaManufacturerDevice IdentifierShelf Expiration DateModel / Serial / LotCement Bn Bio 40gm Rpl [id number] - Sna - [id number] Implanted:Qty: 2 on 07/19/2023 by [facility]: Syed [id number] / NA / [id number] Fem 7 Std Kn Rt Crcte Rtn Cmnt Persona Cocr - Sna - [id number] Implanted:Qty: 1 on 07/19/2023 by Chandrakant Schaefer DO at [facility] ImplantRight: KneeZimmer [id number] / NA / [id number] Artc 6-7 E-F 10mm Kn Rt Vivacit-E Persona Strl - Sna - [id number] Implanted:Qty: 1 on 07/19/2023 by Chandrakant Schaefer DO at [facility] ImplantRight: KneeZimmer Imgqfx4105/25/2027 [id number] / NA / [id number] Ptlr 32mm Persona Alply Kn Strl Lf - Sna - [id number] Implanted:Qty: 1 on 07/19/2023 by Chandrakant Schaefer DO at [facility] ImplantRight: KneeZimmer [id number] / NA / [id number] Tib 5d E Kn Rt Cmnt Stm Persona Tiv Strl - Sna - [id number] Implanted:Qty: 1 on 07/19/2023 by Chandrakant Schaefer DO at [facility]: KneeZimmer [id number] / NA / [id number]mg IdentifierShelf Expiration DateModel / Serial / LotScrew Gd 48mm Qd-Spr Hex Hd Mis Strl - Sna - [id number] Explanted:Qty: 1 on 07/19/2023 by [facility]: KneeZimmer [id number] / NA / [id number] Gd 48mm Qd-Spr Hex Hd Mis Strl - Sna - [id number] Explanted:Qty: 1 on 07/19/2023 by Chandrakant Schaefer DO at [facility]: KneeZimmer [id number] / NA / [id number] Bn 35mm 6.5mm St Hip Actb Trlg Strl Rpl [id number] - Sna - [id number] Explanted:Qty: 2 on 07/19/2023 by Chandrakant Schaefer, DO at [facility]: KneeZimmer [id number] / NA / [id number] 27mm Hx Hd Scr Srg - Sna - [id number] Explanted:Qty: 1 on 07/19/2023 by Chandrakant Schaefer, DO at [facility]wRight: KneeShivammer [id number] / NA / [id number] Procedures Procedure NamePriorityDate/TimeAssociated DiagnosisCommentsMR BRAIN W WO CONT Vjxmhoq8612/02/2024 2:55 PM EDT Pancreatic mass NON-GYNECOLOGIC KMMHVYRLUrndmne47/28/2025 1:43 PM EDT PA AN ELECTIVE ENDOTRACHEAL CHBGABYkjoqll79/28/2025 1:21 PM EDT ENDOSCOPIC ULTRASOUND UPPER09/30/2024 1:15 PM EDT Pancreatic mass (K86.89) Case Notes [facility] PA ESOPHAGOGASTRODUODENOSCOPY TRANSORAL UOYMONOIDY27/28/2025 1:15 PM EDT Pancreatic mass (K86.89) Case Notes [facility] PROVATION UPPER BWVWjlezce13/28/2025 1:02 PM EDT ENDOSCOPIC ULTRASONOGRAPHY, GI UPPER09/30/2024 1:00 PM EDT PROVATION IWWTURAKOPACbfrfty29/03/2024 9:38 AM EST from Last 3 Months or Most Recently Relevant to Health Maintenance Results * MR brain with and without contrast (12/02/2024 2:55 PM EDT)Anatomical Region LateralityModalityNeuro, Head, Head and Neck, Neuro CoveraN/AMagnetic ResonanceSpecimen (Source)Anatomical Location / LateralityCollection Method / VolumeCollection TimeReceived Time12/04/2024 3:22 PM EDT Narrative 12/04/2024 6:49 PM EDT CLINICAL HISTORY: Pancreatic mass COMPARISON: ??11/21/2014 TECHNIQUE: ??Multiplanar, multisequence MR imaging of the brain were performed with and without contrast enhancement. FINDINGS: ?? No evidence of acute/subacute infarct. No acute intracranial hemorrhage. No mass effect or midline shift. No extra-axial fluid collection. No ventriculomegaly. Mild global cerebral parenchymal volume loss and compensatory dilation subarachnoid spaces. Moderate burden scattered foci of T2/FLAIR hyperintensity ??in the periventricular and subcortical white matter likely reflects sequela of chronic microangiopathy. No pathologic brain parenchymal enhancement. Enhancing lesion within the right parietal calvarium measuring approximately 0.6 x 0.8 cm. Lesion demonstrates relative T1 hypointensity, T2/FLAIR hyperintensity without restricted diffusion. Findinglikely present on prior MRI of brain dated 11/21/2014, though lesion has grown on the order of a few millimeters since that study. Lesion previously measured approximately 0.5 x 0.5 cm at that time. Globes and orbits are unremarkable. Right mastoid septal thickening. Fairly unremarkable paranasal sinuses. IMPRESSION: No evidence of brain parenchymal metastatic disease. Enhancing focus within the right parietal calvarium slightly enlarged when compared to prior MRI 11/21/2014. Finding favored to represent angiomatoid or other benign lesion. Calvarial metastatic disease considered less likely. Recommend follow-up. Finalized by Francisco J Quezada MD on 12/04/2024 6:49 PM Procedure Note Francisco J Quezada MD - 12/04/2024 CLINICAL HISTORY: Pancreatic mass COMPARISON: 11/21/2014 TECHNIQUE: Multiplanar, multisequence MR imaging of the brain wereperformed with and without contrast enhancement. FINDINGS: No evidence of acute/subacute infarct. No acute intracranial hemorrhage.No mass effect or midline shift. No extra-axial fluid collection. Noventriculomegaly. Mild global cerebral parenchymal volume loss and compensatory dilation subarachnoid spaces. Moderate burden scattered foci of T2/FLAIRhyperintensity in the periventricular and subcortical white matter likelyreflects sequela of chronic microangiopathy. No pathologic brain parenchymal enhancement. Enhancing lesion within the right parietal calvarium measuringapproximately 0.6 x 0.8 cm. Lesion demonstrates relative T1 hypointensity,T2/FLAIR hyperintensity without restricted diffusion. Finding likelypresent on prior MRI of brain dated 11/21/2014, though lesion has grown onthe order of a few millimeters since that study. Lesion previously measured approximately 0.5x 0.5 cm at that time. Globes and orbits are unremarkable. Right mastoid septal thickening.Fairly unremarkable paranasal sinuses. IMPRESSION: No evidence of brain parenchymal metastatic disease. Enhancing focus within the right parietal calvarium slightly enlarged when compared to prior MRI 11/21/2014. Finding favored to represent angiomatoidor other benign lesion. Calvarial metastatic disease considered lesslikely. Recommend follow-up. Finalized by Francisco J Quezada MD on 12/04/2024 6:49 PM Authorizing ProviderResult TypeResult StatusAdars Venneplake city hospital and [facility] MDIM MRI ORDERABLESFinal Result * Cytology non-gynecologic (09/30/2024 1:43 PM EDT)ComponentValueRef RangeTest MethodAnalysis TimePerformed AtPathologist SignatureCase ReportMedical Cytology Report ? Case: [id number] ? Authorizing Provider: ??Denzel Louie MD ?Collected: ? 09/30/2024 1343 ? Ordering Location: ? [facility] ??Received: ?09/30/2024 1434 ? - Endoscopy ? Pathologist: ? Riya Blanco MD ? Specimen: ?Pancreas, Head Pancreas Mass ? 10/17/2024 8:06 AM [facility] LABORATORYAddendumThe specimen is paucicellular. Because the patient has a history of renal cell carcinoma, in order to identify a metastatic renal cell carcinoma, immunohistochemical staining for AE1/AE3 and the PAX8is performed with adequate controls. Both biomarkers are negative in the cellblock.10/17/2024 8:06 AM [facility] LABORATORYAddendum electronically signed by Kailash Cannon MD on 10/17/2024 at 0806 EDTFinal DiagnosisMass, pancreatic head, fine-needle aspiration: No malignant cells identified. 10/17/2024 8:06 AM [facility] at 1312 EDTGross DescriptionReceived was a needle rinse in CytoLyt for Thinprep and cellblock. Needle rinse obtained at 13:43 and placed in formalin at 18:00 with a total formalin fixation time of 7 hours.10/17/2024 8:06 AM [facility] LABORATORYEmbedded Images 10/17/2024 8:06 AM [facility] LABORATORYSpecimen (Source) Anatomical Location / LateralityCollection Method / VolumeCollection Time Received TimeFine Needle AspiratePancreatic structure / Iaenrfy8809/30/2024 1:43 PM EDT09/30/2024 2:34 PM EDTComment:Pre-op diagnosis: Pancreatic mass (K86.89) Narrative Authorizing ProviderResult TypeResult StatusMuhanabbey Luis Hejason MDPATHOLOGY/CYTOLOGY ORDERABLESEdited Result - FinalPerforming OrganizationAddressCity/State/ZIP Code Phone Number [facility] [address] [place] [address], * PA AN ELECTIVE ENDOTRACHEAL AIRWAY (09/30/2024 1:21 PM EDT) Narrative Karen Thompson APRN-CRNA - 09/30/2024 1:21 PM EDT KIP Hector 09/30/2024 1:32 PM Airway Patient location during procedure: OR Urgency: Elective Date/Time: 09/30/2024 1:21 PM Airway not difficult IV In Situ: Peripheral General Information and Staff Service Provider: KIP Hector Placed by: ??KIP Hector Patient Identified, IV Checked, Risks and Benefits Discussed, Surgical Consent, Monitors and Equipment Checked, Pre-op Evaluation and Timeout Performed Fire Risk Assessment Score: 0 Consent for Emergent Airway (if performed for an anesthetic, see related documentation for consents) Risks and benefits: risks, benefits and alternatives were discussed Indications and Patient Condition Sedation level: Deep Preoxygenated: yesPatient position: Supine MILS maintained throughout Mask difficulty assessment: Vent By Mask Indications for airway management: Anesthesia Complications: No Complicating Factors: No Final Airway Details Final airway type: ETT Endotracheal airway: Cuffed, Straight and Inflated Techniques used for successful ETT Placement: With Stylet and Video Laryngoscopy Cormack-Lehane Classification: Grade I Endotracheal tube insertion site: Oral Bite Block Placed Post Intubation Trauma? No Visibility: ??Cords Clear Blade: Ian Blade size: #4 Placement verified by: chest auscultation and capnography ETT size: 7.0 mm Measured from: Lips Secured at (cm): 22 Number of other approaches attempted: 0 Number of attempts at approach: 1 Authorizing ProviderResult TypeResult StatusLisa N Nettie MDANESTHESIA ORDERABLESFinal Result * Upper EUS Report (09/30/2024 1:02 PM EDT)Specimen (Source)Anatomical Location / LateralityCollection Method / VolumeCollection TimeReceived Time Narrative SYSTEMGENERATED, DOCUMENTATION - 09/30/2024 1:02 PM EDT This order has been auto-finalized for image and report archival in PACs. *For full report details, please reach out to your physician. ??This image is visible to you in MyChart.* Authorizing ProviderResult TypeResult StatusMuperlita Louie MDIMG OR IMG ORDERABLESFinal Result * Endoscopic Ultrasonography, GI Upper (09/30/2024 1:00 PM EDT)Specimen (Source) Anatomical Location / LateralityCollection Method / VolumeCollection Time Received Time09/30/2024 1:00 PM EDT Narrative PM CARDIOVASCULAR - 09/30/2024 2:20 PM EDT [facility] Patient Name: Malgorzata Reyes ?? Procedure Date: 09/30/2024 1:00 PM ? CSN: [id number] Date of : 1945 Admit Type: Outpatient Age: 78 Room: [place] [address] Gender: Female Note Status: Finalized Attending MD: Denzel Louie MD, Procedure: ?Upper EUS Indications: ?Suspected mass in pancreas on CT scan Providers: ?Denzel Louie MD Referring MD: ? Misael Antoine Requesting Provider: ? Medicines: ?General Anesthesia Procedure: ?After obtaining informed consent, the endoscope ?was passed under direct vision. Throughout the ?procedure, the patient's blood pressure, pulse, ?and oxygen saturations were monitored ?continuously. The Endoscope was introduced ?through the mouth, and advanced to the second ?part of duodenum. The Endoscope was introduced ?through the mouth, and advanced to the second ?part of duodenum. The upper EUS was ?accomplished without difficulty. The patient ?tolerated the procedure well. Findings: ? ENDOSONOGRAPHIC FINDING: : ? An irregular mass was identified in the pancreatic head. The mass was ? hyperechoic and heterogenous. The mass measured 45 mm by 79 mm in ? maximal cross-sectional diameter. The endosonographic borders were ? poorly-defined. There was sonographic evidence suggesting invasion into ? the portal vein (manifested by interface loss less than 15 mm). An ? intact interface was seen between the mass and the portal vein ? suggesting a lack of invasion. Fine needle aspiration for cytology was ? performed. Color Doppler imaging was utilized prior to needle puncture ? to confirm a lack of significant vascular structures within the needle ? path. One pass was made with the 22 gauge needle using a transduodenal ? approach. A stylet was used. A retail director was present and performed a ? preliminary cytologic examination. Final cytology results are pending. ? Fine needle biopsy was performed. Color Doppler imaging was utilized ? prior to needle puncture to confirm a lack of significant vascular ? structures within the needle path. Three passes were made with the 22 ? gauge Paragon 28 EchoTip biopsy needle using a transduodenal approach. A ? visible core of tissue was obtained. Final cytology results are pending. ? Increased echogenicity of the pancreatic gland in the body and tail of ? the pancreas, the PD measured 2.6 mm in the neck of the pancreas, and ? 1.8 mm in the body of the pancreas. ? The common bile duct measured 14.5 upstream from this obstructing mass. Estimated Blood Loss: ? Estimated blood loss was minimal. Impression: ? - An Irregular large mass was encountered in ?the head of the pancreas, the mass measured ?about 45 mm x 79 mm, it appeared to cause ?compression of the common bile duct, there was ?loss of interface between this mass and the ?portal vein. ?The mass was heterogeneous and highly vascular. ?Multiple attempts to get a clear window for ?deep biopsies from this lesion were not ?successful. Fine-needle aspiration x1 and ?fine-needle biopsy x3 was performed from the ?superficial portion of this mass. No cytology ?was performed and the whole sample was sent for ?cell block and immunostaining given the ?clinical concern for metastatic renal cell ?carcinoma, given her previous history of this ?cancer. Recommendation: ? - Discharge patient to home. ?- Await cytology results and await path results. Procedure Code(s): ?--- Professional --- ?78318, Esophagogastroduodenoscopy, flexible, ?transoral; with transendoscopic ?ultrasound-guided intramural or transmural fine ?needle aspiration/biopsy(s), (includes ?endoscopic ultrasound examination limited to ?the esophagus, stomach or duodenum, and ?adjacent structures) Diagnosis Code(s): ?--- Professional --- ?K86.89, Other specified diseases of pancreas ?R93.3, Abnormal findings on diagnostic imaging ?of other parts of digestive tract CPT copyright 2022 [employer]. All rights reserved. The codes documented in this report are preliminary and upon orthopedic coder review may be revised to meet current compliance requirements. MD Denzel Lyons MD 09/30/2024 2:20:29 PM This report has been signed electronically. Number of Addenda: 0 Note Initiated On: 09/30/2024 1:00 PM Procedure Note Denzel Louie MD - 09/30/2024 [facility] Patient Name: Malgorzata Reyes Procedure Date: 09/30/2024 1:00 PM CSN: [id number] Date of : 1945 Admit Type: Outpatient Age: 78 Room: [facility] ENDO 01 Gender: Female Note Status: Finalized Attending MD: Denzel Louie MD, Procedure: Upper EUS Indications: Suspected mass in pancreas on CT scan Providers: Denzel Louie MD Referring MD: Misael Antoine Requesting Provider: Medicines: General Anesthesia Procedure: After obtaining informed consent, theendoscope was passed under direct vision. Throughoutthe procedure, the patient's blood pressure,pulse, and oxygen saturations were monitored continuously. The Endoscope was introduced through the mouth, and advanced to thesecond part of duodenum. The Endoscope wasintroduced through the mouth, and advanced to thesecond part of duodenum. The upper EUS was accomplished without difficulty. The patient tolerated the procedure well. Findings: ENDOSONOGRAPHIC FINDING: : An irregular mass was identified in the pancreatic head. The mass was hyperechoic and heterogenous. The mass measured 45 mm by 79 mm in maximal cross-sectional diameter. The endosonographic borders were poorly-defined. There was sonographic evidence suggesting invasioninto the portal vein (manifested by interface loss less than 15 mm). An intact interface was seen between the mass and the portal vein suggesting a lack of invasion. Fine needle aspiration for cytologywas performed. Color Doppler imaging was utilized prior to needlepuncture to confirm a lack of significant vascular structures within theneedle path. One pass was made with the 22 gauge needle using atransduodenal approach. A stylet was used. A retail director was present and performed a preliminary cytologic examination. Final cytology results arepending. Fine needle biopsy was performed. Color Doppler imaging was utilized prior to needle puncture to confirm a lack of significant vascular structures within the needle path. Three passes were made with the 22 gauge [employer] 28 EchoTip biopsy needle using a transduodenal approach. A visible core of tissue was obtained. Final cytology results arepending. Increased echogenicity of the pancreatic gland in the body and tailof the pancreas, the PD measured 2.6 mm in the neck of the pancreas, and 1.8 mm in the body of the pancreas. The common bile duct measured 14.5 upstream from this obstructingmass. Estimated Blood Loss: Estimated blood loss was minimal. Impression: - An Irregular large mass was encountered in the head of the pancreas, the mass measured about 45 mm x 79 mm, it appeared to cause compression of the common bile duct, therewas loss of interface between this mass and the portal vein. The mass was heterogeneous and highlyvascular. Multiple attempts to get a clear window for deep biopsies from this lesion were not successful. Fine-needle aspiration x1 and fine-needle biopsy x3 was performed from the superficial portion of this mass. Nocytology was performed and the whole sample was sentfor cell block and immunostaining given the clinical concern for metastatic renal cell carcinoma, given her previous history ofthis cancer. Recommendation: - Discharge patient to home. - Await cytology results and await pathresults. Procedure Code(s): --- Professional --- 85649, Esophagogastroduodenoscopy, flexible, transoral; with transendoscopic ultrasound-guided intramural or transmuralfine needle aspiration/biopsy(s), (includes endoscopic ultrasound examination limited to the esophagus, stomach or duodenum, and adjacent structures) Diagnosis Code(s): --- Professional --- K86.89, Other specified diseases ofpancreas R93.3, Abnormal findings on diagnosticimaging of other parts of digestive tract CPT copyright 2022 [employer]. All rights reserved. The codes documented in this report are preliminary and upon orthopedic coder reviewmay be revised to meet current compliance requirements. MD Denzel Lyons MD 09/30/2024 2:20:29 PM This report has been signed electronically. Number of Addenda: 0 Note Initiated On: 09/30/2024 1:00 PM Authorizing ProviderResult TypeResult StatusMuperlita Louie MDGI PROCEDURE ORDERABLESFinal ResultPerforming OrganizationAddressCity/State/ZIP CodePhone Number PM [facility] * Colonoscopy Report (03/08/2023 9:38 AM EST)Specimen (Source)Anatomical Location / LateralityCollection Method / VolumeCollection TimeReceived Time Narrative SYSTEMGENERATED, DOCUMENTATION - 03/08/2023 9:38 AM EST This order has been auto-finalized for image and report archival in PACs. *For full report details, please reach out to your physician. ??This image is visible to you in MyChart.* Authorizing ProviderResult TypeResult StatusTate Emerson DOIMG OR IMG ORDERABLES Final Result from Last 3 Months or Most Recently Relevant to Health Maintenance Insurance * Guarantor: Malgorzata Reyes TypeRelation to PatientDate of BirthPhone Billing AddressPersonal/CzdxoiEptk76/25/1946 [address] [place] [address] Advance Directives * Full Code (Latest Code Status on File) Date ActivatedDate InactivatedComments09/16/2024 3:03 AM09/19/2024 6:20 PM * Full Code Date ActivatedDate InactivatedComments07/19/2023 9:15 AM07/20/2023 10:05 PM Care Teams Team MemberRelationshipSpecialtyStart DateEnd Date Misael Antoine MD [address] [place] [address] PCP - GeneralFamily Medicine09/27/24
[2024-12-30 11:37] LABS: Hematocrit 34.1 % (36.0-48.0); Hemoglobin 11.2 g/dL (12.0-16.0); Mean Corpuscular HGB Conc 32.8 g/dL (29.9-35.2); Mean Corpuscular Hemoglobin 29.0 pg (26.7-34.0); Mean Corpuscular Volume 88.3 fL (81.0-99.0); Platelet Count 195 10^3/uL (150-450); Red Blood Count 3.86 10^6/uL (4.20-5.40); White Blood Count 4.7 10^3/uL (4.0-11.0)
[2024-12-30 12:02] LABS: Albumin Level 4.0 g/dL (3.4-5.0); Anion Gap 13.3; Blood Urea Nitrogen 35.0 mg/dL (7.0-18.0); Calcium 8.7 mg/dL (8.5-10.1); Carbon Dioxide 31.0 mmol/L (21.0-32.0); Chloride 101 mmol/L (98-107); Estimated GFR (African America 45 (>=60 mL/min/1.73m^2); Estimated GFR (Non-African Ame 37 (>=60 mL/min/1.73m^2); Glucose 101 mg/dL (74-106); Magnesium 1.7 mg/dL (1.8-2.4); Potassium 4.3 mmol/L (3.5-5.1); Sodium 141 mmol/L (136-145); Uric Acid 8.5 mg/dL (2.6-6.0)
[2024-12-30 12:05] LABS: Glucose Urine UA NEGATIVE (NEGATIVE)
[2024-12-30 12:15] LABS: Crystals Seen? None Seen #/HPF (None Seen)
[2024-12-30 12:16] LABS: Cast Seen? NONE SEEN #/LPF (NONE SEEN)
[2024-12-30 12:52] LABS: Iron 75.0 ug/dL (50.0-170.0); Percent Iron Saturation 33.6 %; Total Iron Binding Capacity 223.0 ug/dL (250.0-450.0)
[2024-12-30 13:39] LABS: Ferritin 380.0 ng/mL (8.0-252.0)
== END 2024-12-30 11:16 | disposition home or self-care (01) ==
LOC: LAB 11:17
PROVIDERS: PCP Family Medicine; Visit Provider Internal Medicine
DX: E87.5 Hyperkalemia (principal); E55.9 Vitamin D deficiency, unspecified; E79.0 Hyperuricemia without signs of inflammatory arthritis and tophaceous disease; C64.9 Malignant neoplasm of unspecified kidney, except renal pelvis; R80.9 Proteinuria, unspecified; N18.9 Chronic kidney disease, unspecified
CPT/HCPCS: 36415; 80069; 81001; 82306; 82728; 83540; 83550; 83735; 83970; 84550; 85027